=== PATIENT | female | born 1965 | race Caucasian/White ===

== ENCOUNTER 2022-03-08 12:41 | Emergency (ER) | payer OTHER, SELFPAY ==
--- NOTE | ~2022-03-08 | XR_ITS ---
EXAMINATION: XR RIBS, RIGHT CLINICAL INFORMATION: Fall. Right posterior rib pain. COMPARISON: Previous chest x-ray March 2012 TECHNIQUE: 3 views of the right ribs and one view of the chest were obtained. FINDINGS: The cardiac and mediastinal contours are normal. There is subsegmental atelectasis in the left midlung. The lungs are otherwise clear. No pleural effusion or pneumothorax. Acute right posterior lateral sixth rib fracture and adjacent pleural thickening. XR/XR ribs RT min 3V w CXR1V IMPRESSION: No evidence for acute disease in the chest. Acute posterior lateral right sixth rib fracture.
[2022-03-08 12:59] VITALS: BP 139/83; PULSE 80; RESP 16; TEMP 36.6; O2SAT 97; BMI 34.0
--- NOTE | 2022-03-08 13:00 | ED_ITS ---
HPI - Fall General Chief Complaint: Fall <BLAKE Lopez Last Filed: 03/08/22 13:03> Stated Complaint: abd pain <BLAKE Lopez Last Filed: 03/08/22 13:03> Time Seen by Provider: 03/08/22 14:39 <BLAKE Lopez Last Filed: 03/08/22 13:03> Source: patient <BLAKE Joyner Last Filed: 03/08/22 15:29> Mode of arrival: ambulatory <BLAKE Joyner Last Filed: 03/08/22 15:29> Limitations: no limitations <BLAKE Joyner Last Filed: 03/08/22 15:29> History of Present Illness HPI Narrative: Patient is a 56 year old assigned female at with a history of chronic left knee pain requiring cane assistance to ambulate presenting to the emergency department today with right rib pain. Patient states that yesterday, she fell onto her right side and her cane caught her side. Patient states that she is still having right sided pain. Patient denies hitting her head with the incident. Patient denies any loss of consciousness with the incident. Patient denies any dizziness, lightheadedness, abdominal pain, nausea, vomiting, fever, chills, blurry vision, double vision, loss of vision, chest pain, difficulty breathing, shortness of breath, back pain, night sweats, pain with urination, increased urinary frequency, increased urinary urgency, blood in her urine or stool, syncope or a near syncopal episode, bowel incontinence, bladder incontinence, bowel retention, bladder retention, or any other complaints at this time. <BLAKE Joyner Last Filed: 03/08/22 15:29> MD complaint: fall <BLAKE Joyner Last Filed: 03/08/22 15:29> Onset (ago): day(s) (1) <BLAKE Joyner Last Filed: 03/08/22 15:29> Fall from: standing <BLAKE Joyner Last Filed: 03/08/22 15:29> Place fall occurred: home <BLAKE Joyner Last Filed: 03/08/22 15:29> Loss of consciousness: none <BLAKE Joyner Last Filed: 03/08/22 15:29> Context: tripped/slipped <BLAEK Joyner Last Filed: 03/08/22 15:29> Related Data Home Medications: Previous Rx's Medication Instructions Recorded hydrocodone 5 mg-acetaminophen 325 1 tab PO Q8H PRN pain #5 tabs 03/08/22 mg tablet <BLAKE Lopez Last Filed: 03/08/22 13:03> Allergies/Adverse Reactions: Allergies Allergy/AdvReac Type Severity Reaction Status Date / Time Penicillins [PENICILLINS] Allergy Mild UNKNOWN Verified 03/08/22 13:03 aspirin [ASPIRIN] Allergy Unknown UNKNOWN Verified 03/08/22 13:03 ibuprofen [IBUPROFEN] Allergy Unknown UNKNOWN Verified 03/08/22 13:03 sumatriptan [From IMITREX] Allergy Unknown UNKNOWN Verified 03/08/22 13:03 From COMPAZINE Allergy Unknown UNKNOWN Uncoded 03/08/22 13:03 From IMITREX Allergy Unknown UNKNOWN Uncoded 03/08/22 13:03 <BLAKE Lopez Last Filed: 03/08/22 13:03> Review of Systems Constitutional: Constitutional: Reports no additional constitutional complaints, Denies chills, Denies fever(s) and Denies night sweats <BLAKE Joyner Last Filed: 03/08/22 15:29> Eyes: Eyes: Reports no additional eye complaints, Denies blurry vision, Denies change in vision, Denies diplopia, Denies eye discharge, Denies loss of vision and Denies eye pain <BLAKE Joyner Last Filed: 03/08/22 15:29> ENT: Denies dizziness <BLAKE Joyner Last Filed: 03/08/22 15:29> Cardiovascular: Cardiovascular: Reports no additional cardiovascular complaints, Denies chest pain, Denies lightheadedness, Denies Loss of Consciousness and Denies dyspnea <BLAKE Joyner Last Filed: 03/08/22 15:29> Respiratory: Respiratory: Reports no additional respiratory complaints and Denies dyspnea <BLAKE Joyner Last Filed: 03/08/22 15:29> Gastrointestinal: Gastrointestinal: Reports no additional gastrointestinal complaints, Denies abdominal pain, Denies melena, Denies hematochezia, Denies change in bowel habits and Denies change in stool character <BLAKE Joyner - Last Filed: 03/08/22 15:29> Genitourinary: Genitourinary: Denies hematuria, Denies urinary frequency, Denies dysuria, Denies urinary incontinence, Denies urinary hesitancy and Denies urinary urgency <BLAKE Joyner - Last Filed: 03/08/22 15:29> Musculoskeletal: Musculoskeletal: Reports no additional musculoskeletal complaints, Denies numbness and Denies tingling <BLAKE Joyner - Last Filed: 03/08/22 15:29> Neurologic: Denies dizziness, Denies loss of vision, Denies numbness and Denies tingling <BLAKE Joyner - Last Filed: 03/08/22 15:29> Psychiatric: Psychiatric: Reports no additional psychiatric complaints <BLAKE Joyner - Last Filed: 03/08/22 15:29> Endocrine: Endocrine: Reports no additional endocrine complaints <BLAKE Joyner - Last Filed: 03/08/22 15:29> Hematologic/Lymphatic: Hematologic/Lymphatic: Reports no additional hematologic/lymphatic complaints <BLAKE Joyner - Last Filed: 03/08/22 15:29> Allergic/Immunologic: Allergic/Immunologic: Reports no additional allergic/immunologic complaints <BLAKE Joyner - Last Filed: 03/08/22 15:29> PMFSH Past Medical History Attestation statement: The following information was validated with the patient. <BLAKE Joyner - Last Filed: 03/08/22 15:29> Source: old records reviewed and nursing notes reviewed <BLAKE Joyner - Last Filed: 03/08/22 15:29> Social History Social History: Social History Advance Directives: No Advance Directives Information Provided: No <BLAKE Lopez - Last Filed: 03/08/22 13:03> Physical Exam Vital Signs: Vital Signs: Last Vital Signs Temp 98.0 F 03/08/22 14:33 Pulse 74 03/08/22 14:33 Resp 16 03/08/22 14:33 BP 143/91 H 03/08/22 14:33 Pulse Ox 97 03/08/22 14:33 O2 Del Method 03/08/22 14:33 BMI result Body Mass Index 34.0 <BLAKE Lopez - Last Filed: 03/08/22 13:03> Vital Signs: Last Vital Signs Temp 98.0 F 03/08/22 14:33 Pulse 74 03/08/22 14:33 Resp 16 03/08/22 14:33 BP 143/91 H 03/08/22 14:33 Pulse Ox 97 03/08/22 14:33 O2 Del Method 03/08/22 14:33 BMI result Body Mass Index 34.0 <BLAKE Joyner - Last Filed: 03/08/22 15:29> Const: General: cooperative, no acute distress, alert and awake <BLAKE Joyner - Last Filed: 03/08/22 15:29> Nutritional Appearance: well nourished <BLAKE Joyner - Last Filed: 03/08/22 15:29> Orientation/consciousness: patient oriented x3 <BLAKE Joyner - Last Filed: 03/08/22 15:29> Limitations: no limitations <BLAKE Joyner - Last Filed: 03/08/22 15:29> HEENT: Head: Yes normal to inspection and Yes atraumatic <BLAKE Joyner - Last Filed: 03/08/22 15:29> Ears: hearing grossly normal bilaterally and external ears normal <BLAKE Joyner - Last Filed: 03/08/22 15:29> General nose exam: Normal external nose present, no nasal discharge noted and no epistaxis <BLAKE Joyner - Last Filed: 03/08/22 15:29> Face and sinus: Yes normal facial exam, No abrasion and No laceration <BLAKE Joyner - Last Filed: 03/08/22 15:29> Mouth: Normal oral and palatal mucosa present, no drooling and no muffled voice <BLAKE Joyner - Last Filed: 03/08/22 15:29> Eyes: General: appearance normal, both eyes and all related structures <BLAKE Joyner - Last Filed: 03/08/22 15:29> Periorbital: periorbital findings normal <Gely Schofield PA - Last Filed: 03/08/22 15:29> Eyelids: Yes eyelids normal <Gely Schofield PA - Last Filed: 03/08/22 15:29> Conjunctivae: conjunctivae normal <Gely Schofield PA - Last Filed: 03/08/22 15:29> Pupils: Equal, round and reactive pupils present <Gely Schofield PA - Last Filed: 03/08/22 15:29> EOM: EOMs intact bilaterally <Gely Schofield, PA - Last Filed: 03/08/22 15:29> Neck: Neck: Yes normal visual inspection, Yes full ROM and Yes no lymphadenopathy <Gely Schofield PA - Last Filed: 03/08/22 15:29> Chest: Chest palpation & inspection: normal inspection of the chest <Gely Schofield PA - Last Filed: 03/08/22 15:29> Resp: Effort & Inspection: normal respiratory effort and able to speak in complete sentences <Gely Schofield PA - Last Filed: 03/08/22 15:29> Auscultation: clear to auscultation bilaterally <Gely Schofield PA - Last Filed: 03/08/22 15:29> Cardio: Rate: regular rate <Gely Schofield PA - Last Filed: 03/08/22 15:29> Rhythm: regular rhythm <Gely Schofield PA - Last Filed: 03/08/22 15:29> GI: Inspection: Yes normal to inspection <Geyl Schofield [place] - Last Filed: 03/08/22 15:29> Palpation (GI): Soft to palpation, not firm, nontender, no guarding and not rigid <Gely Schofield PA - Last Filed: 03/08/22 15:29> Neuro: General: patient oriented x3 and moves all extremities <Gely Schofield PA - Last Filed: 03/08/22 15:29> Cranial nerves: Yes Equal, round and reactive pupils present <Gely Schofield PA - Last Filed: 03/08/22 15:29> Cognition (Neuro): normal cognition <Gely Schofield PA - Last Filed: 03/08/22 15:29> Motor exam (neuro): 5/5 motor strength present throughout <BLAKE Joyner - Last Filed: 03/08/22 15:29> Sensory Exam: Normal double simultaneous stimulation for sensation <BLAKE Joyner - Last Filed: 03/08/22 15:29> Coordination: [id number] test normal <BLAKE Joyner - Last Filed: 03/08/22 15:29> Extrem: General: Yes normal to inspection, Yes full ROM and Yes capillary refill normal <BLAKE Joyner - Last Filed: 03/08/22 15:29> Psych: Appearance: grossly normal <BLAKE Joyner - Last Filed: 03/08/22 15:29> Mental Status: mental status grossly normal <BLAKE Joyner - Last Filed: 03/08/22 15:29> Affect: normal affect <BLAKE Joyner - Last Filed: 03/08/22 15:29> Attitude: cooperative <BLAKE Joyner - Last Filed: 03/08/22 15:29> Thought process: Normal thought process present <BLAKE Joyner - Last Filed: 03/08/22 15:29> Thought content: Normal thought content present <BLAKE Joyner - Last Filed: 03/08/22 15:29> Insight: Good insight present (Psych) <BLAKE Joyner - Last Filed: 03/08/22 15:29> Course Course Course Narrative: 13:00 - RME - 56 yo female with history of obesity, psoriasis, left knee replacement who walks with a cane who presents with right posterior/lateral rib pain after she tripped over her puppy yesterday and fell directly onto her cane. Not on anticoagulation, did not hit her head. no flank ecchymosis, no hematuria. no SOB. right lung clear throughout. will get rib XR. <BLAKE Lopez - Last Filed: 03/08/22 13:03> Medical Decision Making Medical Decision Making MDM Narrative: Patient is a 56 year old assigned female at with a history of chronic left knee pain requiring the use of a cane for ambulation presenting to the emergency department today with right sided rib pain. Patient's physical exam was unremarkable. Patient's right rib x-ray showed posterior lateral right sixth rib fracture. I explained my physical exam findings as well as all test results to the patient and the patient's daughter. I answered all questions asked by the patient and the patient's daughter. Patient's chest was wrapped which she stated helped her symptoms significantly. I stressed the importance of the patient t aking her medication as prescribed. I stressed the importance of the patient following up with her primary care provider. I stressed the importance of the patient returning to the emergency department immediately if her symptoms were to worsen or if she were to develop any dizziness, shortness of breath, difficulty breathing, chest pain, blurry vision, loss of vision, nausea, vomiting, abdominal pain, fever, chills, back pain, or any other complaints. Patient and the patient's daughter verbalized agreement and understanding with this treatment plan and discharge. <BLAKE Joyner - Last Filed: 03/08/22 15:29> Differential Diagnosis Differential Diagnoses: The differential diagnosis associated with the presentation includes <BLAKE Joyner - Last Filed: 03/08/22 15:29> rib fracture, fall <BLAKE Joyner - Last Filed: 03/08/22 15:29> Radiology Impression Discussion of test interpretation with radiology: I have reviewed the radiologist's reading. <BLAKE Joyner - Last Filed: 03/08/22 15:29> Radiologist Impression: My interpretation is in agreement with the radiologist's impression of this imaging study. EXAMINATION: XR RIBS, RIGHT CLINICAL INFORMATION: Fall. Right posterior rib pain. COMPARISON: Previous chest x-ray March 2012 TECHNIQUE: 3 views of the right ribs and one view of the chest were obtained. FINDINGS: The cardiac and mediastinal contours are normal. There is subsegmental atelectasis in the left midlung. The lungs are otherwise clear. No pleural effusion or pneumothorax. Acute right posterior lateral sixth rib fracture and adjacent pleural thickening. XR/XR ribs RT min 3V w CXR1V IMPRESSION: No evidence for acute disease in the chest. Acute posterior lateral right sixth rib fracture. Dictated By: Pippa Eduardo MD Signed By: Electronically signed by Pippa Eduardo MD 03/08/22 [id number] <BLAKE Joyner - Last Filed: 03/08/22 15:29> Independent Historian Clinical information obtained from an independent historian. History obtained from or confirmed by: Other (daughter) <Gely SchofieldBLAKE - Last Filed: 03/08/22 15:29> Discharge Plan Discharge Clinical Impression: Fracture of rib <BLAKE Lopez - Last Filed: 03/08/22 13:03> Patient Disposition: Home, Self-Care <BLAKE Lopez - Last Filed: 03/08/22 13:03> Instructions: Rib Fracture (ED) <BLAKE Lopez - Last Filed: 03/08/22 13:03> Additional Instructions: Follow up with your primary care provider. Return to the emergency department immediately if your symptoms worsen or if you develop any dizziness, shortness of breath, difficulty breathing, chest pain, blurry vision, loss of vision, nausea, vomiting, abdominal pain, fever, chills, back pain, or any other complaints. <BLAKE Lopez - Last Filed: 03/08/22 13:03> Prescriptions: New hydrocodone-acetaminophen 5-325 mg tablet 1 tab PO Q8H PRN (Reason: pain) Qty: 5 0RF Rx Instructions: Partial Fill upon patient request. <BLAKE Lopez - Last Filed: 03/08/22 13:03> Referrals: Ilya De Leon MD [Primary Care Provider] - <BLAKE Lopez - Last Filed: 03/08/22 13:03> Interventions: ED Discharge Assessment Last Done: 03/08/22 15:22 <BLAKE Lopez - Last Filed: 03/08/22 13:03> Discharge Date/Time: 03/08/22 15:23 <BLAKE Lopez - Last Filed: 03/08/22 13:03> Print Language: [place] <BLAKE Lopez - Last Filed: 03/08/22 13:03>
[2022-03-08 14:33] VITALS: BP 143/91; PULSE 74; RESP 16; TEMP 36.7; O2SAT 97
== END 2022-03-08 15:23 | disposition home or self-care (01) ==
PROVIDERS: Emergency Provider Student in an Organized Health Care Education/Training Program; PCP Internal Medicine
DX: S22.41XA Multiple fractures of ribs, right side, initial encounter for closed fracture (principal); R07.81 Pleurodynia; W01.10XA Fall on same level from slipping, tripping and stumbling with subsequent striking against unspecified object, initial encounter; Y93.9 Activity, unspecified; Y92.9 Unspecified place or not applicable; Y99.9 Unspecified external cause status
CPT/HCPCS: 71101; 99283

== ENCOUNTER 2022-09-26 15:41 | Inpatient (IN) | payer OTHER, SELFPAY ==
[2022-09-26] VITALS (7 sets, daily range): BP systolic 105–156; BP diastolic 52–75; PULSE 77–172; RESP 14–22; TEMP 36.9–38.6; O2SAT 95–98; BMI 38.8; BMI 38.4
--- NOTE | ~2022-09-26 | CT_ITS ---
EXAMINATION: CT ABDOMEN AND PELVIS WITHOUT CONTRAST CLINICAL INFORMATION: Flank pain. Sepsis. COMPARISON: None available. TECHNIQUE: Multidetector volumetric imaging was performed from the superior aspect of the liver through the pubic symphysis. Sagittal and coronal reformatted images were obtained on the technologist's workstation. This CT examination was performed using dose optimization techniques as appropriate, variously including the following: *Automated exposure control *Adjustment of mA and/or kV according to patient size (this includes techniques or standardized protocols for targeted exams where dose is matched to indication/reason for exam; i.e. extremities or head) *Use of iterative reconstruction technique DLP: 1069 mGy-cm FINDINGS: LUNG BASES: 4 mm right lower lobe nodule axial image 5 series 5. The lung bases are otherwise clear. LIVER, GALLBLADDER, AND BILIARY TREE: The liver is normal in size, shape, and attenuation. Multiple low-attenuation liver lesions. Largest lesions are suggestive of cysts. Smaller lesions are difficult to accurately characterize. Normal gallbladder. No biliary duct dilatation. PANCREAS: Unremarkable. SPLEEN: Unremarkable. ADRENAL GLANDS: Unremarkable. KIDNEYS AND URETERS: The kidneys are normal in size, shape, and attenuation. No hydronephrosis, hydroureter, or calculi seen. No perinephric stranding. BLADDER: Unremarkable. GASTROINTESTINAL TRACT: The small and large bowel are unremarkable. The appendix is unremarkable. ABDOMINAL WALL: No significant hernia is appreciated. LYMPH NODES: Normal. VASCULAR: Unremarkable. PELVIC VISCERA: Unremarkable. OSSEOUS STRUCTURES: Degenerative changes of the lower lumbar spine CT/CT abdomen pelvis wo IV con IMPRESSION: No acute findings. The kidneys are normal appearing. Multiple liver cysts. Fleischner guidelines were followed.
--- NOTE | ~2022-09-26 | XR_ITS ---
EXAMINATION: XR CHEST CLINICAL INFORMATION: Suspect pulmonary edema. COMPARISON: Chest radiograph 03/08/2022. TECHNIQUE: Frontal view of the chest was obtained. FINDINGS: Diffuse interstitial thickening. Equivocal focal nodular-like opacities in the right lung. No significant pleural effusion or pneumothorax. Normal appearance of the cardiomediastinal silhouette. No acute osseous findings. Visualized upper abdomen is within normal limits. XR/XR chest 1V IMPRESSION: 1. Diffuse interstitial thickening is nonspecific and could be related with pulmonary edema or an atypical infectious/inflammatory process. 2. Focal opacities in the right lung likely represent summation artifacts from healing changes secondary to rib fractures involving the right fourth through sixth ribs, however underlying pulmonary nodules are difficult to entirely exclude, recommend follow-up with an outpatient chest CT in 3-6 months.
--- NOTE | 2022-09-26 16:11 | ED_ITS ---
HPI - General Adult General Chief complaint: General Medical Stated complaint: UTI?/dehydration Time Seen by Provider: 09/26/22 16:10 Source: patient and family Mode of arrival: ambulatory Limitations: no limitations History of Present Illness HPI narrative: Patient comes to the emergency room complaining of feeling very exhausted for couple of days. Patient states that she has been having intermittent nausea vo miting for 2 weeks. Also, patient complaining of couple of weeks of dysuria. Patient states that she took a home UTI test which was positive. Patient denies any cardiac history, no chest pain or shortness of breath. Related Data Previous Rx's Medication Instructions Recorded hydrocodone 5 mg-acetaminophen 325 1 tab PO Q8H PRN pain #5 tabs 03/08/22 mg tablet Allergies Allergy/AdvReac Type Severity Reaction Status Date / Time Penicillins [PENICILLINS] Allergy Mild UNKNOWN Verified 03/08/22 13:03 aspirin [ASPIRIN] Allergy Unknown UNKNOWN Verified 03/08/22 13:03 ibuprofen [IBUPROFEN] Allergy Unknown UNKNOWN Verified 03/08/22 13:03 sumatriptan [From IMITREX] Allergy Unknown UNKNOWN Verified 03/08/22 13:03 From COMPAZINE Allergy Unknown UNKNOWN Uncoded 03/08/22 13:03 From IMITREX Allergy Unknown UNKNOWN Uncoded 03/08/22 13:03 Review of Systems Review of Systems: Constitutional : No Weight loss, No Fever, No Chills, No Night Sweats, complain of fatigue and generalized malaise ENT/Mouth : No Hearing loss, No Ear Pain, No Nasal Congestion, No Sinus Pain, No Hoarseness, No sore throat, No Rhinorrhea, No Swallowing Difficulty Eyes: No Eye Pain, No Swelling, No Redness, No Foreign Body, No Discharge, No Vision Changes Cardiovascular : No Chest Pain, No SOB, No Dyspnea on Exertion, No Orthopnea, No Edema, No Palpitations Respiratory : No Cough, No Sputum, No Wheezing, No Smoke Exposure, No Dyspnea Gastrointestinal : No Nausea, No Vomiting, No Diarrhea, No Constipation, No abdominal Pain, No Hematochezia, No Melena Genitourinary : no irregular bleeding, complaining of Dysuria, complaining of Urinary Frequency, No Hematuria, No Urinary Incontinence, No Urgency, No Flank Pain, No Urinary Flow Changes, No Hesitancy Musculoskeletal : No joint pain, No Myalgias, No Joint Swelling Skin : No Skin Lesions, No rash Neuro : No Weakness, No Numbness, No Paresthesias, No Loss of Consciousness, No Dizziness, No Headache Psych : No Anxiety/Panic, No Depression, No SI/HI/AH/VH, No Social Issues, Heme/Lymph: No Bruising, No Bleeding,No Lymphadenopathy Endocrine : No Polyuria, No Polydipsia, No Temperature Intolerance PMFSH Past Medical History Medical History Hyperlipidemia Migraine Social History Social History Smoked in Last 30 Days: Yes Use of substances other than those prescribed or required for medical reasons: No Advance Directives: No Advance Directives Information Provided: No Physical Exam ED Vital Signs: Vital Signs - 24 hr 09/26/22 15:56 09/26/22 16:48 09/26/22 18:15 Temperature 98.5 F Pulse Rate 160 H 172 H 122 H Respiratory Rate 22 H 17 Blood Pressure 129/68 156/52 H Pulse Oximetry 98 98 Oxygen Delivery Method Room Air Room Air BMI result Body Mass Index 38.8 Const Other: Appearance: Alert. Oriented X3. Seems tired Eyes: Pupils equal, round and reactive to light. ENT: Pharynx normal. Neck: Normal inspection. Neck supple. No lymph nodes noted. No crepitus CVS: Heart rate irregularly irregular, heart rate between 160 and 180 Pulses normal. Normal S1 and S2 Respiratory: No respiratory distress. Breath sounds normal. No Wheezing. No rales Abdomen: Soft and nontender. No rigidity. No distention. Skin: Skin warm and dry. Normal skin color. Normal skin turgor. Extremities: No lower extremity edema. No Lacerations. No Rash Neuro: Oriented X 3. No motor deficit. No sensory deficit. Moving all extremities. No slurred speech. CN 2 through 12 grossly intact Psych: calm, cooperative, normal affect Course Course Course Narrative: -patient's heart rate is between 160 and 180, irregularly irregular. This is likely atrial fibrillation. EKG pending. Patient states that she has no history of atrial fibrillation, not on blood thinners. -all of patient's labs pending Medications Administered Discontinued Medications Generic Name Dose Route Start Last Admin Trade Name Freq PRN Reason Stop Dose Admin Diltiazem HCl 20 mg 09/26/22 16:30 09/26/22 16:41 Diltiazem Hcl 50 Mg/10 Ml Vial IVPUSH 09/26/22 16:31 20 mg STAT STA Administration Sodium Chloride 1,000 mls @ 999 mls/hr 09/26/22 16:26 09/26/22 16:42 Ns IVCONT 09/26/22 17:26 999 mls/hr .Q1H1M ONE Administration Medical Decision Making Medical Decision Making [facility] Narrative: -my interpretation EKG: Atrial fibrillation with RVR, heart rate of 155, QTC 462, new onset. -admission has been considered -patient receiving 20 mg of IV Cardizem. -CHADS2 Vasc 2 score =1, at this time, we will not start blood thinners -patient's high rate did improve from 160-180 to approximately 110-120 beats per minute. -patient has been started on a Cardizem drip -18:20: Patient's urinalysis is positive. Patient given ceftriaxone IV, IV fluids based on ideal weight of 50 kg. Sepsis not suspected -I discussed the patient with Dr. Johnson, patient being admitted Differential Diagnosis Differential Diagnoses: The differential diagnosis associated with the presentation includes (SVT, atrial fibrillation, sinus tachycardia, UTI) Admission/Observation Consideration of admission/observation: Escalation of care including admission/observation considered Consult Healthcare Provider Management of the patient was discussed with: Hospitalist Lab Data [facility] Lab Attestation statement: I reviewed the patient's lab results. 09/26/22 16:44 09/26/22 16:53 Labs: Lab Results 09/26/22 09/26/22 09/26/22 Range/Units 16:44 16:44 16:44 WBC 13.4 H (4.8-10.8) X10*3/uL RBC 5.95 H (4.20-5.50) X10*6/uL Hgb 17.8 H (12.0-16.0) g/dl Hct 53.0 H (37.0-47.0) % MCV 89.1 (80.0-98.0) fL MCH 29.9 (27.0-33.0) pg MCHC 33.6 (31.0-35.0) g/dl RDW 12.8 (11.0-16.0) % Plt Count 335 (160-400) X10*3/uL MPV 9.9 (9.4-12.3) fL Immature Gran % (Auto) 0.3 (0.0-0.4) % Neut % (Auto) 77.9 H (45-73) % Lymph % (Auto) 13.7 L (20-40) % [place] % (Auto) 7.2 (2-11) % Eos % (Auto) 0.4 (0-4) % Baso % (Auto) 0.5 (0-2) % Lymph # (Auto) 1.8 (1.2-4.9) X10*3/uL [place] # (Auto) 1.0 (0.1-1.2) X10*3/uL Eos # (Auto) 0.1 (0.0-0.4) X10*3/uL Baso # (Auto) 0.1 (0.0-0.2) X10*3/uL Abs Immat Gran (auto) 0.04 H (0.00-0.03) X10*3/uL Absolute Neuts (auto) 10.5 H (2.0-8.3) x10*3/uL Absolute Nucleated RBC 0.000 (0.0-0.012) X10*3/uL Nucleated RBC % (auto) 0.0 (0.0-0.2) /100WBC PT (10.0-13.1) SEC INR (0.9-1.1) Sodium (135-145) mmol/L Potassium (3.3-5.1) mmol/L Chloride (96-108) mmol/L Carbon Dioxide (22-29) mmol/L Anion Gap (12-20) BUN (9-16) mg/dL Creatinine (0.5-1.4) mg/dL Estim Creat Clear Calc Estimated GFR Random Glucose (60-115) mg/dL Lactic Acid 1.6 (0.5-2.0) mmol/L Calcium (8.4-10.2) mg/dL Magnesium (1.6-2.6) mg/dL Total Bilirubin (0.0-1.0) mg/dL Direct Bilirubin (0.0-0.5) mg/dL AST (5-31) U/L ALT (0-31) U/L Alkaline Phosphatase (39-117) U/L Troponin I High Sens < 2.7 (<3.5-17.0) ng/L B-Natriuretic Peptide (<100) pg/mL Total Protein (6.5-8.0) g/dL Albumin (3.5-5.0) g/dL Lipase (8-78) U/L TSH (0.32-4.0) uIU/mL Urine Color Urine Appearance Urine pH (5.0-9.0) Ur Specific [place] (1.005-1.025) Urine Protein (Neg-Trace) mg/dL Urine Glucose (UA) (Negative) mg/dL Urine Ketones (Negative) mg/dL Urine Blood (Negative) Urine Nitrite (Negative) Ur Leukocyte Esterase (Negative) Urine RBC (0-2) /HPF Urine WBC (0-5) /HPF Ur Squamous Epith Cells (0-2) /HPF Urine Bacteria (None Seen) Hyaline Casts (0-2) /LPF 09/26/22 09/26/22 09/26/22 Range/Units 16:44 16:53 16:53 WBC (4.8-10.8) X10*3/uL RBC (4.20-5.50) X10*6/uL Hgb (12.0-16.0) g/dl Hct (37.0-47.0) % MCV (80.0-98.0) fL MCH (27.0-33.0) pg MCHC (31.0-35.0) g/dl RDW (11.0-16.0) % Plt Count (160-400) X10*3/uL MPV (9.4-12.3) fL Immature Gran % (Auto) (0.0-0.4) % Neut % (Auto) (45-73) % Lymph % (Auto) (20-40) % [place] % (Auto) (2-11) % Eos % (Auto) (0-4) % Baso % (Auto) (0-2) % Lymph # (Auto) (1.2-4.9) X10*3/uL [place] # (Auto) (0.1-1.2) X10*3/uL Eos # (Auto) (0.0-0.4) X10*3/uL Baso # (Auto) (0.0-0.2) X10*3/uL Abs Immat Gran (auto) (0.00-0.03) X10*3/uL Absolute Neuts (auto) (2.0-8.3) x10*3/uL Absolute Nucleated RBC (0.0-0.012) X10*3/uL Nucleated RBC % (auto) (0.0-0.2) /100WBC PT 13.2 H (10.0-13.1) SEC INR 1.1 (0.9-1.1) Sodium 144 (135-145) mmol/L Potassium 3.4 (3.3-5.1) mmol/L Chloride 106 (96-108) mmol/L Carbon Dioxide 26 (22-29) mmol/L Anion Gap 15 (12-20) BUN 5 L (9-16) mg/dL Creatinine 0.72 (0.5-1.4) mg/dL Estim Creat Clear Calc 94.4 Estimated GFR > 60 Random Glucose 87 (60-115) mg/dL Lactic Acid (0.5-2.0) mmol/L Calcium 10.4 H (8.4-10.2) mg/dL Magnesium 1.8 (1.6-2.6) mg/dL Total Bilirubin 0.9 (0.0-1.0) mg/dL Direct Bilirubin 0.3 (0.0-0.5) mg/dL AST 10 (5-31) U/L ALT 11 (0-31) U/L Alkaline Phosphatase 101 (39-117) U/L Troponin I High Sens (<3.5-17.0) ng/L B-Natriuretic Peptide (<100) pg/mL Total Protein 7.3 (6.5-8.0) g/dL Albumin 4.1 (3.5-5.0) g/dL Lipase 6 L (8-78) U/L TSH 1.47 (0.32-4.0) uIU/mL Urine Color Urine Appearance Urine pH (5.0-9.0) Ur Specific [place] (1.005-1.025) Urine Protein (Neg-Trace) mg/dL Urine Glucose (UA) (Negative) mg/dL Urine Ketones (Negative) mg/dL Urine Blood (Negative) Urine Nitrite (Negative) Ur Leukocyte Esterase (Negative) Urine RBC (0-2) /HPF Urine WBC (0-5) /HPF Ur Squamous Epith Cells (0-2) /HPF Urine Bacteria (None Seen) Hyaline Casts (0-2) /LPF 09/26/22 09/26/22 Range/Units 16:53 17:01 WBC (4.8-10.8) X10*3/uL RBC (4.20-5.50) X10*6/uL Hgb (12.0-16.0) g/dl Hct (37.0-47.0) % MCV (80.0-98.0) fL MCH (27.0-33.0) pg MCHC (31.0-35.0) g/dl RDW (11.0-16.0) % Plt Count (160-400) X10*3/uL MPV (9.4-12.3) fL Immature Gran % (Auto) (0.0-0.4) % Neut % (Auto) (45-73) % Lymph % (Auto) (20-40) % [place] % (Auto) (2-11) % Eos % (Auto) (0-4) % Baso % (Auto) (0-2) % Lymph # (Auto) (1.2-4.9) X10*3/uL [place] # (Auto) (0.1-1.2) X10*3/uL Eos # (Auto) (0.0-0.4) X10*3/uL Baso # (Auto) (0.0-0.2) X10*3/uL Abs Immat Gran (auto) (0.00-0.03) X10*3/uL Absolute Neuts (auto) (2.0-8.3) x10*3/uL Absolute Nucleated RBC (0.0-0.012) X10*3/uL Nucleated RBC % (auto) (0.0-0.2) /100WBC PT (10.0-13.1) SEC INR (0.9-1.1) Sodium (135-145) mmol/L Potassium (3.3-5.1) mmol/L Chloride (96-108) mmol/L Carbon Dioxide (22-29) mmol/L Anion Gap (12-20) BUN (9-16) mg/dL Creatinine (0.5-1.4) mg/dL Estim Creat Clear Calc Estimated GFR Random Glucose (60-115) mg/dL Lactic Acid (0.5-2.0) mmol/L Calcium (8.4-10.2) mg/dL Magnesium (1.6-2.6) mg/dL Total Bilirubin (0.0-1.0) mg/dL Direct Bilirubin (0.0-0.5) mg/dL AST (5-31) U/L ALT (0-31) U/L Alkaline Phosphatase (39-117) U/L Troponin I High Sens (<3.5-17.0) ng/L B-Natriuretic Peptide 172 H (<100) pg/mL Total Protein (6.5-8.0) g/dL Albumin (3.5-5.0) g/dL Lipase (8-78) U/L TSH (0.32-4.0) uIU/mL Urine Color Dark Yellow Urine Appearance Cloudy Urine pH 8.5 (5.0-9.0) Ur Specific [place] 1.010 (1.005-1.025) Urine Protein 100 (2+) H (Neg-Trace) mg/dL Urine Glucose (UA) Negative (Negative) mg/dL Urine Ketones 15 (Negative) mg/dL Urine Blood Moderate (2+) H (Negative) Urine Nitrite Negative (Negative) Ur Leukocyte Esterase Large (3+) H (Negative) Urine RBC >20 H (0-2) /HPF Urine WBC >50 H (0-5) /HPF Ur Squamous Epith Cells 0-2 (0-2) /HPF Urine Bacteria 1+ (None Seen) Hyaline Casts 0-2 (0-2) /LPF Independent Interpretation I performed an independent interpretation of an: EKG and Plain X-Ray (My interpretation of chest x-ray: Nodules on the right upper ribs versus callused/old healed fractures) Radiology Impression Discussion of test interpretation with radiology: I have reviewed the radiologist's reading. Radiologist Impression: FINDINGS: Diffuse interstitial thickening. Equivocal focal nodular-like opacities in the right lung. No significant pleural effusion or pneumothorax. Normal appearance of the cardiomediastinal silhouette. No acute osseous findings. Visualized upper abdomen is within normal limits. XR/XR chest 1V IMPRESSION: 1.? Diffuse interstitial thickening is nonspecific and could be related with pulmonary edema or an atypical infectious/inflammatory process. 2.? Focal opacities in the right lung likely represent summation artifacts from healing changes secondary to rib fractures involving the right fourth through sixth ribs, however underlying pulmonary nodules are difficult to entirely exclude, recommend follow-up with an outpatient chest CT in 3-6 months. Independent Historian Clinical information obtained from an independent historian. History obtained from or confirmed by: Spouse Critical Care Time Critical Care Time Critical Care Time: Yes Total Critical Care Time: 70 Attestation: I have personally provided critical care time. Time includes review of lab data, radiology results, discussion with consultants, and monitoring for potential decompensation. Intervention performed as documented. Discharge Plan Discharge Clinical Impression: Atrial fibrillation with rapid ventricular response, Urinary tract infection Patient Disposition: Admitted As Inpatient Prescriptions: No Action hydrocodone-acetaminophen 5-325 mg tablet 1 tab PO Q8H PRN (Reason: pain) Qty: 5 0RF Rx Instructions: Partial Fill upon patient request.
--- NOTE | 2022-09-26 16:22 | ECG_ITS ---
Test Reason : ARRITHMIA Blood Pressure : / mmHG Vent. Rate : 155 BPM Atrial Rate : 000 BPM P-R Int : 000 ms QRS Dur : 072 ms QT Int : 288 ms P-R-T Axes : 000 -02 159 degrees QTc Int : 462 ms Atrial fibrillation with rapid ventricular response Minimal voltage criteria for LVH, may be normal variant ( R in aVL ) ST & T wave abnormality, consider lateral ischemia Abnormal ECG When compared with ECG of 22-MAR-2012 14:45, Atrial fibrillation has replaced Sinus rhythm Vent. rate has increased BY 71 BPM T wave inversion now evident in Lateral leads Referred By: Bianca Vazquez Electronically Signed By:Zaire Alexander
[2022-09-26] MEDS: dilTIAZem HCL 50 MG/10 ML VIAL 20 MG IVPUSH (16:41)
[2022-09-26] MEDS: 0.9 % Sodium Chloride 1,000 ML 999 ML IVCONT ×2 (16:42→18:49)
[2022-09-26 16:48] LABS: MANUAL DIFF FLAG NO
--- NOTE | 2022-09-26 16:52 | PC.NURSE ---
Pt came in with A-fib with RVR, HR 172, Cardizem given with positive effect HR 113
[2022-09-26 17:03] LABS: Basophils Absolute Auto 0.1 X10*3/uL (0.0-0.2); Basophils Percent Auto 0.5 % (0-2); Eosinophils Absolute Auto 0.1 X10*3/uL (0.0-0.4); Eosinophils Percent Auto 0.4 % (0-4); Hemoglobin 17.8 g/dl (12.0-16.0); Imm Gran Abs Auto 0.04 X10*3/uL (0.00-0.03); Imm Gran Pct Auto 0.3 % (0.0-0.4); Lymphocytes Absolute Auto 1.8 X10*3/uL (1.2-4.9); Lymphocytes Percent Auto 13.7 % (20-40); Mean Corpuscular HGB Conc 33.6 g/dl (31.0-35.0); Mean Corpuscular Hemoglobin 29.9 pg (27.0-33.0); Mean Corpuscular Volume 89.1 fL (80.0-98.0); Mean Platelet Volume 9.9 fL (9.4-12.3); Monocytes Percent Auto 7.2 % (2-11); Neutrophils Absolute Auto 10.5 x10*3/uL (2.0-8.3); Neutrophils Percent Auto 77.9 % (45-73); Platelet Count 335 X10*3/uL (160-400); Red Blood Count 5.95 X10*6/uL (4.20-5.50); Red Cell Distribution Width 12.8 % (11.0-16.0); White Blood Count 13.4 X10*3/uL (4.8-10.8)
[2022-09-26 17:05] LABS: Lactic Acid 1.6 mmol/L (0.5-2.0)
[2022-09-26 17:15] LABS: Appearance Urine Cloudy; Color Urine Dark Yellow; Glucose Urine UA Negative (Negative); Leukocyte Esterase Urine Large (3+) (Negative); Nitrite Urine Negative (Negative); PH 8.5 (5.0-9.0); UMIC TRIGGER UACC YES; Urine Blood Moderate (2+) (Negative); Urine Ketones 15 mg/dL (Negative); Urine Protein 100 (2+) mg/dL (Neg-Trace)
[2022-09-26 17:18] LABS: Troponin-I High Sensitivity < 2.7 ng/L (<3.5-17.0)
[2022-09-26 17:20] LABS: Bacteria Urine 1+ (None Seen); Hyaline Casts Urine 0-2 /LPF (0-2); RBC Urine >20 /HPF (0-2); Squamous Epithelial Cell Urine 0-2 /HPF (0-2); UACC Culture Trigger YES; WBC Urine >50 /HPF (0-5)
[2022-09-26 17:20] LABS: INTERNATIONAL NORM RATIO 1.1 (0.9-1.1); Prothrombin Time 13.2 SEC (10.0-13.1)
[2022-09-26 17:27] LABS: TSH reflex Free T4 1.47 uIU/mL (0.32-4.0)
[2022-09-26 17:31] LABS: Alanine Aminotransferase 11 U/L (0-31); Albumin Level 4.1 g/dL (3.5-5.0); Alkaline Phosphatase 101 U/L (39-117); Anion Gap 15 (12-20); Aspartate Amino Transferase 10 U/L (5-31); Bilirubin Direct 0.3 mg/dL (0.0-0.5); Bilirubin Total 0.9 mg/dL (0.0-1.0); Blood Urea Nitrogen 5 mg/dL (9-16); Calcium 10.4 mg/dL (8.4-10.2); Carbon Dioxide 26 mmol/L (22-29); Chloride 106 mmol/L (96-108); Creatinine Clr Calc Pharmacy 94.4; Estimated Glomerular Filt Rate > 60; Glucose Random 87 mg/dL (60-115); Lipase 6 U/L (8-78); Magnesium 1.8 mg/dL (1.6-2.6); Potassium 3.4 mmol/L (3.3-5.1); Sodium 144 mmol/L (135-145); Total Protein 7.3 g/dL (6.5-8.0)
[2022-09-26 17:44] LABS: B Type Natriuretic Peptide 172 pg/mL (<100)
[2022-09-26] MEDS: Acetaminophen 325 MG TABLET 650 MG PO (18:35)
[2022-09-26] MEDS: dilTIAZem HCL 125 MG in 0.9 % Sodium Chloride 100 ML 10 MG IVCONT (18:45)
[2022-09-26] MEDS: cefTRIAXone sodium 1 GM in 0.9 % Sodium Chloride 50 ML IV (18:53)
--- NOTE | 2022-09-26 19:03 | PC.NURSE ---
Pt started on Cardizam drip, HR 176. After 15 min HR remains elevated at 168. Cardizam titrated per protocol, HR decreased to 139 at 1904
--- NOTE | 2022-09-26 19:29 | P.HPHOSP_ITS ---
History of Present Illness Date of Service: 09/26/22 Attending physician on admission: Alton Breaux Chief Complaint: dysuria, back pain, weakness 57-year-old female with history of hyperlipidemia, migraines, and psoriasis who is a current 0.5 PPD smoker presents to the ED earlier today with her for evaluation of fatigue and weakness ongoing for several days. She states solo t she has also been experiencing dysuria, increased urinary frequency, and urgency for the last 2 weeks though did experience a brief reprieve of symptoms with pyridium. In the last few days she has also been experiencing nausea and vomiting and significant bilateral low back pain. She has been experiencing palpitations and intermittent shortness of breath with increased anxiety but denies any orthopnea, PND, bilateral lower extremity edema, lightheadedness, or chest pain. Denies history of similar symptoms. She is a current 0.5 pack cigarette per day smoker but denies any illicit drug use or alcohol use. On arrival, patient found to be tachycardic to 172 without any hypotension. At that time, she was mildly tachypneic to 22 and afebrile. However patient did develop fever of 101.4 while in the ED. EKG showed atrial fibrillation with RVR, rate 155 with T-wave inversions noted in I and II, but no LISA or depression. There is a leukocytosis of 13.4. Renal function normal, electrolyte levels normal. Lactic acid 1.6. Hepatic function normal. Troponin below detectable limits. BNP 172. TSH 1.47. UA with 3+ leukocytes, negative nitrites, 2+ blood, 2+ protein, positive urinary sediment, and 1+ bacteria. Chest x-ray showing diffuse interstitial thickening possibly related to pulmonary edema or atypical infectious versus inflammatory process. There is also evidence of heal ing changes secondary to rib fractures on the right side her cannot exclude pulmonary nodule and outpatient CT recommended in 3-6 months. In the ED, given 20 mg IV push diltiazem with minimal improvement in heart rate and patient was started on Cardizem drip. She was also given 2 L IV NS bolus, 1 g IV ceftriaxone, and Tylenol with improvement of fever. Review of Systems Review of Systems: General: No fevers, malaise, unintentional weight loss. +generalized weakness, +fatigue HEENT: No blurred vision, diplopia. No sore throat, nasal congestion, rhinorrhea, sinus pain, ear pain Cardiovascular: +palpitations. No chest pain or leg edema Respiratory: +sob. No orthopnea, PND, wheezing, cough GI: No abdominal pain, nausea, vomiting, diarrhea, constipation, melena, hematochezia : +dysuria, +increased frequency, +urgency. No hematuria, decreased urinary output MSK: No myalgia. +b/l low back pain Neuro: No headaches, weakness, paresthesias Skin: +diffuse rash PMFSH Medical History Hyperlipidemia Migraine Social History Smoked in Last 30 Days: Yes Use of substances other than those prescribed or required for medical reasons: No Advance Directives: No Advance Directives Information Provided: No Meds Allergies Allergy/AdvReac Type Severity Reaction Status Date / Time Penicillins [PENICILLINS] Allergy Mild UNKNOWN Verified 03/08/22 13:03 aspirin [ASPIRIN] Allergy Unknown UNKNOWN Verified 03/08/22 13:03 ibuprofen [IBUPROFEN] Allergy Unknown UNKNOWN Verified 03/08/22 13:03 sumatriptan [From IMITREX] Allergy Unknown UNKNOWN Verified 03/08/22 13:03 From COMPAZINE Allergy Unknown UNKNOWN Uncoded 03/08/22 13:03 From IMITREX Allergy Unknown UNKNOWN Uncoded 03/08/22 13:03 Active Medications: Current Medications Diltiazem HCl 125 mg/ Sodium (Chloride) 125 mls @ 0 mls/hr IVCONT .Q0M BERONICA; Protocol Last Titration: 09/26/22 19:02 Dose: 15 mg/hr, 15 mls/hr Pharmacy Consult (Consult Rx Perform Med Rec) 1 each MISCELLANE ONCE PRN PRN Reason: Consult order Physical Exam Vital Signs and Narrative: Vital Signs: Last Vital Signs Temp 101.4 F H 09/26/22 18:22 Pulse 122 H 09/26/22 18:15 Resp 17 09/26/22 18:15 BP 156/52 H 09/26/22 18:15 Pulse Ox 98 09/26/22 18:15 O2 Del Method Room Air 09/26/22 18:15 BMI result Body Mass Index 38.8 Constitutional - Awake and Alert, No apparent distress Eyes - PERRLA, EOMI Cardiovascular - S1S2, RRR, No edema Respiratory - Normal lung expansion, Normal respiratory effort, No respiratory distress, CTA bilaterally Gastrointestinal - NT / ND; +BS; No rebound or guarding - +right sided CVA tenderness Extremities - no calf tenderness bilaterally, no swelling Skin - Warm/Dry. Diffuse scaling papular lesions on trunk and BUE and BLE Neurological - Alert & oriented x3 Psychological - Appropriate affect Results Labs 09/26/22 16:44 09/26/22 16:53 Labs: Laboratory Results - last 24 hr 09/26/22 09/26/22 09/26/22 16:44 16:44 16:44 MCV 89.1 MCH 29.9 MCHC 33.6 RDW 12.8 Plt Count 335 MPV 9.9 Immature Gran % (Auto) 0.3 Neut % (Auto) 77.9 H Lymph % (Auto) 13.7 L Carbon % (Auto) 7.2 Eos % (Auto) 0.4 Baso % (Auto) 0.5 Lymph # (Auto) 1.8 Carbon # (Auto) 1.0 Eos # (Auto) 0.1 Baso # (Auto) 0.1 Abs Immat Gran (auto) 0.04 H Absolute Neuts (auto) 10.5 H Absolute Nucleated RBC 0.000 Nucleated RBC % (auto) 0.0 PT INR Anion Gap Estim Creat Clear Calc Estimated GFR Random Glucose Lactic Acid 1.6 Calcium Magnesium Total Bilirubin Direct Bilirubin AST ALT Alkaline Phosphatase Troponin I High Sens < 2.7 B-Natriuretic Peptide Total Protein Albumin Lipase TSH Urine Color Urine Appearance Urine pH Ur Specific [place] Urine Protein Urine Glucose (UA) Urine Ketones Urine Blood Urine Nitrite Ur Leukocyte Esterase Urine RBC Urine WBC Ur Squamous Epith Cells Urine Bacteria Hyaline Casts 09/26/22 09/26/22 09/26/22 16:44 16:53 16:53 MCV MCH MCHC RDW Plt Count MPV Immature Gran % (Auto) Neut % (Auto) Lymph % (Auto) Carbon % (Auto) Eos % (Auto) Baso % (Auto) Lymph # (Auto) Carbon # (Auto) Eos # (Auto) Baso # (Auto) Abs Immat Gran (auto) Absolute Neuts (auto) Absolute Nucleated RBC Nucleated RBC % (auto) PT 13.2 H INR 1.1 Anion Gap 15 Estim Creat Clear Calc 94.4 Estimated GFR > 60 Random Glucose 87 Lactic Acid Calcium 10.4 H Magnesium 1.8 Total Bilirubin 0.9 Direct Bilirubin 0.3 AST 10 ALT 11 Alkaline Phosphatase 101 Troponin I High Sens B-Natriuretic Peptide Total Protein 7.3 Albumin 4.1 Lipase 6 L TSH 1.47 Urine Color Urine Appearance Urine pH Ur Specific [place] Urine Protein Urine Glucose (UA) Urine Ketones Urine Blood Urine Nitrite Ur Leukocyte Esterase Urine RBC Urine WBC Ur Squamous Epith Cells Urine Bacteria Hyaline Casts 09/26/22 09/26/22 16:53 17:01 MCV MCH MCHC RDW Plt Count MPV Immature Gran % (Auto) Neut % (Auto) Lymph % (Auto) Carbon % (Auto) Eos % (Auto) Baso % (Auto) Lymph # (Auto) Carbon # (Auto) Eos # (Auto) Baso # (Auto) Abs Immat Gran (auto) Absolute Neuts (auto) Absolute Nucleated RBC Nucleated RBC % (auto) PT INR Anion Gap Estim Creat Clear Calc Estimated GFR Random Glucose Lactic Acid Calcium Magnesium Total Bilirubin Direct Bilirubin AST ALT Alkaline Phosphatase Troponin I High Sens B-Natriuretic Peptide 172 H Total Protein Albumin Lipase TSH Urine Color Dark Yellow Urine Appearance Cloudy Urine pH 8.5 Ur Specific [place] 1.010 Urine Protein 100 (2+) H Urine Glucose (UA) Negative Urine Ketones 15 Urine Blood Moderate (2+) H Urine Nitrite Negative Ur Leukocyte Esterase Large (3+) H Urine RBC >20 H Urine WBC >50 H Ur Squamous Epith Cells 0-2 Urine Bacteria 1+ Hyaline Casts 0-2 Imaging Radiologist's Impressions: Impressions Chest X-Ray 09/26/22 17:15 IMPRESSION: 1. Diffuse interstitial thickening is nonspecific and could be related with pulmonary edema or an atypical infectious/inflammatory process. 2. Focal opacities in the right lung likely represent summation artifacts from healing changes secondary to rib fractures involving the right fourth through sixth ribs, however underlying pulmonary nodules are difficult to entirely exclude, recommend follow-up with an outpatient chest CT in 3-6 months. Assessment and Plan (1) Atrial fibrillation with rapid ventricular response: Status: Acute (2) Acute pyelonephritis: Status: Acute Plan 57-year-old female with history of hyperlipidemia, migraines, and psoriasis who is a current 0.5 PPD smoker admitted for further management of acute pyelonephritis and new onset atrial fibrillation with RVR. #Acute clinical pyelonephritis with sepsis -UA with 3+ leukocytes, negative nitrites, 2+ blood, positive urinary sediment, 1+ bacteria with significant right-sided CVA tenderness -leukocytosis 13.4, tachycardic, febrile, tachypneic. Lactic acid normal, no end-organ damage. No hypotension. No severe sepsis/shock -given 2 L IVF in the ED -IV ceftriaxone (initiated 09/26) -ondansetron p.r.n. -pain management using pain scale -follow CBC, urine cultures, blood cultures # new onset atrial fibrillation with RVR -continue Cardizem drip per protocol -initiate low-dose metoprolol 12.5 mg b.i.d. -[id number] score 1. Anticoagulant/anti-platelet not indicated -echocardiogram -cardiology consult -cardiac diet -monitor on telemetry #Elevated BNP -2/2 AFib with RVR -clinically euvolemic #Abnormal CXR -possible pulmonary nodules on CXR -Chest CT recommended in 3-6 months outpt # hyperlipidemia -continue statin # psoriasis -continue steroid creams from home #Nicotine dependence -Counseled on cessation -Nicorette gum for NRT DVT prophylaxis-Lovenox Full code Patient requires inpatient stay at least 2 midnights for management of acute pyelonephritis with sepsis requiring IV antibiotics and close monitoring for decompensation as well as for further management of new onset atrial fibrillation with RVR on Cardizem drip per protocol Time Spent With Patient Time: Total time managing care of this patient today ____ minutes. Quality Stroke Does the patient have a stroke diagnosis?: No VTE Prior VTE?: No VTE Risk Level:: Medical - moderate - high VTE Device Contraindication: Treatment Not Indicated VTE Drug Contraindication: N/A - Med Ordered
[2022-09-26] MEDS: Morphine Sulfate 4 MG/ML CARTRIDGE IVPUSH (19:37)
--- NOTE | 2022-09-26 20:13 | PHA.MEDREC ---
Pharmacy Consult ? Medication Reconciliation Pharmacy has completed the medication reconciliation. Spoke to patient to confirm meds. Patient is unsure when prednisone is supposed to stop, but knows it's been 15mg daily and that it was supposed to be for a couple of days.
--- NOTE | 2022-09-26 21:17 | PC.NURSE ---
this rn assumed care of pt @ 1900. previous nurse medicated pt with po tylenol 650mg crushed in pudding. pt did not eat because did not like the taste. this rn made laura rondon carlos know that temp remains at 101.4 orally. orders placed for 975mg po.
[2022-09-26] MEDS: Enoxaparin Sodium 40 MG/0.4 ML SYRINGE SUBCUT (21:25)
[2022-09-26] MEDS: Metoprolol Tartrate 12.5 MG HALFTAB PO (21:25)
--- NOTE | 2022-09-26 22:19 | PC.NURSE ---
this rn made dr morton aware of HR 80-98 bp 105/69. per dr morton lower dose rate of diltiazem gtt to 7.5 mg/hr.
[2022-09-26] MEDS: clonazePAM 0.5 MG TABLET PO (22:36)
[2022-09-26] MEDS: Acetaminophen 1,000 MG/100 ML PIGGYBACK 400 MG IV (22:36)
--- NOTE | 2022-09-26 22:41 | PC.NURSE ---
this rn made dr morton aware of HR 77 on diltiazem 7.5mg/hr. per dr morton stop diltiazem gtt at this time. per md restart at rate of 5mg.hr is HR sustains over 120 bpm
[2022-09-27] VITALS (7 sets, daily range): BP systolic 96–125; BP diastolic 55–71; PULSE 70–91; RESP 17–20; TEMP 35.8–37.4; O2SAT 92–98
--- NOTE | 2022-09-27 02:00 | PC.NURSE ---
Assumed care for patient at approx 2300 when she arrived from ED. Ambulating with cane and stand by assist into room. Steady on feet with cane. A&Ox4, pleasant and cooperative with care. Denies pain or discomfort. No SOB/Dyspnea noted. NSR on cafeteria monitor. Afebrile on admission. Oriented to room. Call london within reach, bed in lowest locked position.
[2022-09-27] MEDS: Acetaminophen 325 MG TABLET 650 MG PO ×3 (06:06→20:02)
[2022-09-27] MEDS: oxyCODONE HCl Immed Release 5 MG TABLET PO ×3 (06:07→17:46)
--- NOTE | 2022-09-27 07:00 | CA_ITS ---
Transthoracic Echocardiogram Patient (Last, First, Middle): Vania Bolton, Gender: Female Date of : 1965 Age: 57 Procedure Date: 09/27/2022 Procedure Type: Transthoracic Echocardiogram Location[place] [facility] [place] Height: 157.48 cm Weight: 94.8 kg BSA: 1.95 m2 Heart Rate: 77 bpm BP: 96 / 58 mmHg Principal Clerk Typist: BRYSON Referring MD: Cassi LOZANO Symptoms: new onset afib Study Quality: Fair ECG Rhythm: Sinus Conclusions: - Normal left ventricular size and systolic function. There is mildly increased left ventricular wall thickness. The visually estimated ejection fraction is between 65-70%. - Normal right ventricular cavity size and systolic function. - There is mild dilatation of the sinuses of Valsalva measuring 3.50 cm and mild dilatation of the ascending aorta measuring 3.90 cm. Findings Left Ventricle Normal left ventricular size and systolic function. There is mildly increased left ventricular wall thickness. The visually estimated ejection fraction is between 65-70%. There is no evidence of regional wall motion abnormalities. Diastolic function is normal for age. Right Ventricle Normal right ventricular cavity size and systolic function. Atria Both atria are normal in size. Aortic Valve Normal aortic valve structure and function. There is no aortic valve stenosis. There is mild aortic valve regurgitation. Mitral Valve The mitral valve appears normal. There is no mitral valve regurgitation. There is no mitral valve stenosis. Pulmonic Valve Normal pulmonic valve structure and function. There is no pulmonic valve regurgitation. Tricuspid Valve Normal tricuspid valve structure and function. There is trace tricuspid valve regurgitation. Normal right atrial pressure. There is no evidence of pulmonary hypertension. Great Vessels There is mild dilatation of the sinuses of Valsalva measuring 3.50 cm and mild dilatation of the ascending aorta measuring 3.90 cm. The visualized portions of the pulmonary artery and branches are normal. Venous The inferior vena cava is normal in size and collapses greater than 50% with inspiration. Pericardium/Pleural There is no evidence of pericardial effusion. Prior Study Comparison No prior study available for comparison. Measurements 2D Linear Measurements IVSd: 1.08 0.6-0.9/0.6-1.0 cm LVIDd: 3.98 3.9-5.3/4.2-5.9 cm LVIDd Index: 2.04 2.4-3.2/2.2-3.1 cm/m2 LVIDs: 2.85 2.0-3.6 cm LVPWd: 1.23 0.7-1.1 cm LA Diam: 2.50 2.7-3.8/3.0-4.0 cm LAIDs Index: 1.28 1.5-2.3 cm/m2 LV Mass: 193.25 67-162/88-224 g LV Mass Index: 99.10 43-95/49-115 g/m2 LVOT Diam: 2.00 3.0+(-)1.3 cm 2D Systolic Function EF 4C: 65.20 >55% EF 2C: 66.80 >55% EF BiP: 67.00 >55% Mitral Valve MV Pk E: 0.91 MV PK A: 0.95 MV Decel Time: 218.00 E/A: 1.00 E'Lateral: 7.29 E'Medial: 7.72 E/E' Med: 11.80 E/E' Lat: 12.50 PHT: 64.00 MVA PHT: 3.44 Decel [place]: 4.18 Aortic Valve AoV Pk Demetrio: 1.40 AoV Mn Demetrio: 1.00 AoV VTI: 0.27 AoV Pk Grad: 8.00 Aov Mn Grad: 4.00 INES Cont.VTI: 2.59 LVOT LVOT Pk Demetrio: 1.15 LVOT Mn Demetrio: 0.78 LVOT VTI: 0.22 LVOT Pk Grad: 5.00 LVOT Mn Grad: 3.00 LVOT Diam: 2.00 LVOT Area: 3.14 Diastolic Function MV Pk E: 0.91 MV Pk A: 0.95 E/A: 1.00 E'Medial: 7.72 E/E' Med: 11.80 E' Laterial: 7.29 E/E' Lat: 12.50 Right Ventricle TAPSE (mm): 21.70 TVS' Demetrio: 14.70 Tricuspid Valve TR Pk Demetrio: 1.69 TR Pk Grad: 11.00 RA Press: 8.00 RVSP: 19.00 Great Vessels Aorta Sinus of Valsalva: 3.50 2.0-3.5 cm Ao Asc: 3.90 2.1-3.4 cm Pulmonary Valve PV Pk Demetrio: 0.81 Peak PV Grad: 3.00 Updated in Other Vendor System with Status of Final Zaire Alexander MD electronically signed on 09/27/2022 8:08:06 PM with status of Final
--- NOTE | 2022-09-27 08:15 | MHC.CM.PN ---
CM met with Patient at bedside. Patient lives in a house with her /HCP and she uses a cane to assist with mobility. Patient has a [employer] 1 hour/day and she gets her Methadone from a [facility] (she believes it is [facility]).Home/resume said services is the goal and CM has initiated and will follow for dc planning. Patient is not Covid micha'd and her PCP is Dr. Ilya De Leon.
[2022-09-27] MEDS: Morphine Sulfate 4 MG/ML CARTRIDGE 2 MG IVPUSH ×3 (08:19→21:19)
[2022-09-27] MEDS: Metoprolol Tartrate 12.5 MG HALFTAB PO ×2 (08:20→20:03)
[2022-09-27] MEDS: predniSONE 5 MG TABLET 15 MG PO (08:20)
[2022-09-27] MEDS: 0.9 % Sodium Chloride Flush 3 ML SYRINGE IVFLUSH (08:20)
[2022-09-27] MEDS: Cholecalciferol (Vitamin D3) 25 MCG TABLET PO (08:20)
--- NOTE | 2022-09-27 08:25 | HO.PM.IMPN ---
Subjective Subjective Date of Service: 09/27/22 Interval History: back pain, headache Physical Exam Vital Signs: Vital Signs: Last Vital Signs Temp 98.4 F 09/27/22 07:43 Pulse 79 09/27/22 07:43 Resp 20 09/27/22 07:43 BP 112/61 09/27/22 07:43 Pulse Ox 94 09/27/22 07:43 O2 Del Method Room Air 09/27/22 07:43 BMI result Body Mass Index 38.4 General: AO X 3, in pain Resp: CTA bilateral, no accessory muscles used CVS: S1,S2,RRR GI: soft, non tender, non distended Neuro: motor grossly intact, alert Psych: appropriate affect, appropriate insight Objective Data Active Medications Acetaminophen (Acetaminophen 325 Mg Tablet) 650 mg PO Q6H PRN PRN Reason: Pain, Mild (Pain Scale 1-3) Last Admin: 09/27/22 06:06 Dose: 650 mg Documented By: GERARDO Atorvastatin Calcium (Atorvastatin Calcium 10 Mg Tablet) 10 mg PO BEDTIME [facility] Betamethasone Dipropion Augmented (Betamethasone Dip Aug 0.05% Cr 15 Gm Tube) 1 appl TOPICAL BID PRN PRN Reason: psoriasis Clonazepam (Clonazepam 0.5 Mg Tablet) 0.5 mg PO BID PRN PRN Reason: Anxiety Last Admin: 09/26/22 22:36 Dose: 0.5 mg Documented By: AMPARO Docusate Sodium (Docusate Sodium 100 Mg Capsule) 100 mg PO DAILY PRN PRN Reason: Constipation Enoxaparin Sodium (Enoxaparin Sodium 40 Mg/0.4 Ml Syringe) 40 mg SUBCUT Q24H [facility] Last Admin: 09/26/22 21:25 Dose: 40 mg Documented By: AMPARO Ceftriaxone Sodium 1 gm/ (Sodium Chloride) 50 mls @ 100 mls/hr IV Q24H [facility] Loratadine (Loratadine 10 Mg Tablet) 10 mg PO DAILY PRN PRN Reason: Allergic Symptoms Metoprolol Tartrate (Metoprolol Tartrate 12.5 Mg Halftab) 12.5 mg PO BID [facility]; Protocol Last Admin: 09/27/22 08:20 Dose: 12.5 mg Documented By: NADIRA Morphine Sulfate (Morphine Sulfate 4 Mg/Ml Cartridge) 2 mg IVPUSH Q6H PRN; Protocol PRN Reason: Pain, Severe (Pain Scale 7-10) Last Admin: 09/27/22 08:19 Dose: 2 mg Documented By: NADIRA Nicotine Polacrilex (Nicotine Polacrilex 2 Mg Gum) 2 mg BUCCAL Q2H PRN PRN Reason: Nicotine Cravings Ondansetron HCl (Ondansetron Hcl 4 Mg/2 Ml Vial) 4 mg IVPUSH Q8H PRN PRN Reason: Nausea and Vomiting Oxycodone HCl (Oxycodone Hcl Immed Release 5 Mg Tablet) 5 mg PO Q6H PRN PRN Reason: Pain, Severe (Pain Scale 7-10) Last Admin: 09/27/22 06:07 Dose: 5 mg Documented By: GERARDO Pharmacy Consult (Consult Rx Perform Med Rec) 1 each MISCELLANE ONCE PRN PRN Reason: Consult order Prednisone (Prednisone 5 Mg Tablet) 15 mg PO DAILY [facility] Last Admin: 09/27/22 08:20 Dose: 15 mg Documented By: NADIRA Sodium Chloride (0.9 % Sodium Chloride Flush 3 Ml Syringe) 3 ml IVFLUSH QSHIFT [facility] Last Admin: 09/27/22 08:20 Dose: 3 ml Documented By: NADIRA Vitamin D (Cholecalciferol (Vitamin D3) 25 Mcg Tablet) 25 mcg PO DAILY [facility] Last Admin: 09/27/22 08:20 Dose: 25 mcg Documented By: NADIRA Labs 09/26/22 16:44 09/26/22 16:53 Labs: Laboratory Results - last 24 hr 09/26/22 09/26/22 09/26/22 16:44 16:44 16:44 MCV 89.1 MCH 29.9 MCHC 33.6 RDW 12.8 Plt Count 335 MPV 9.9 Immature Gran % (Auto) 0.3 Neut % (Auto) 77.9 H Lymph % (Auto) 13.7 L [place] % (Auto) 7.2 Eos % (Auto) 0.4 Baso % (Auto) 0.5 Lymph # (Auto) 1.8 [place] # (Auto) 1.0 Eos # (Auto) 0.1 Baso # (Auto) 0.1 Abs Immat Gran (auto) 0.04 H Absolute Neuts (auto) 10.5 H Absolute Nucleated RBC 0.000 Nucleated RBC % (auto) 0.0 PT INR Anion Gap Estim Creat Clear Calc Estimated GFR Random Glucose Lactic Acid 1.6 Calcium Magnesium Total Bilirubin Direct Bilirubin AST ALT Alkaline Phosphatase Troponin I High Sens < 2.7 B-Natriuretic Peptide Total Protein Albumin Lipase TSH Urine Color Urine Appearance Urine pH Ur Specific [place] Urine Protein Urine Glucose (UA) Urine Ketones Urine Blood Urine Nitrite Ur Leukocyte Esterase Urine RBC Urine WBC Ur Squamous Epith Cells Urine Bacteria Hyaline Casts 09/26/22 09/26/22 09/26/22 16:44 16:53 16:53 MCV MCH MCHC RDW Plt Count MPV Immature Gran % (Auto) Neut % (Auto) Lymph % (Auto) [place] % (Auto) Eos % (Auto) Baso % (Auto) Lymph # (Auto) [place] # (Auto) Eos # (Auto) Baso # (Auto) Abs Immat Gran (auto) Absolute Neuts (auto) Absolute Nucleated RBC Nucleated RBC % (auto) PT 13.2 H INR 1.1 Anion Gap 15 Estim Creat Clear Calc 94.4 Estimated GFR > 60 Random Glucose 87 Lactic Acid Calcium 10.4 H Magnesium 1.8 Total Bilirubin 0.9 Direct Bilirubin 0.3 AST 10 ALT 11 Alkaline Phosphatase 101 Troponin I High Sens B-Natriuretic Peptide Total Protein 7.3 Albumin 4.1 Lipase 6 L TSH 1.47 Urine Color Urine Appearance Urine pH Ur Specific [place] Urine Protein Urine Glucose (UA) Urine Ketones Urine Blood Urine Nitrite Ur Leukocyte Esterase Urine RBC Urine WBC Ur Squamous Epith Cells Urine Bacteria Hyaline Casts 09/26/22 09/26/22 16:53 17:01 MCV MCH MCHC RDW Plt Count MPV Immature Gran % (Auto) Neut % (Auto) Lymph % (Auto) [place] % (Auto) Eos % (Auto) Baso % (Auto) Lymph # (Auto) [place] # (Auto) Eos # (Auto) Baso # (Auto) Abs Immat Gran (auto) Absolute Neuts (auto) Absolute Nucleated RBC Nucleated RBC % (auto) PT INR Anion Gap Estim Creat Clear Calc Estimated GFR Random Glucose Lactic Acid Calcium Magnesium Total Bilirubin Direct Bilirubin AST ALT Alkaline Phosphatase Troponin I High Sens B-Natriuretic Peptide 172 H Total Protein Albumin Lipase TSH Urine Color Dark Yellow Urine Appearance Cloudy Urine pH 8.5 Ur Specific [place] 1.010 Urine Protein 100 (2+) H Urine Glucose (UA) Negative Urine Ketones 15 Urine Blood Moderate (2+) H Urine Nitrite Negative Ur Leukocyte Esterase Large (3+) H Urine RBC >20 H Urine WBC >50 H Ur Squamous Epith Cells 0-2 Urine Bacteria 1+ Hyaline Casts 0-2 Assessment and Plan (1) Acute pyelonephritis: Status: Acute Plan 57F PMH HLD, migraines, psoriasis, obesity, presented with back pain found to have sepsis and afib with rvr sepsis due to acute pyelonephritis continue rocephin follow up cultures new onset afib with rvr converted to sinus follow up echo, cardio continue meroprolol pulm nodule chest ct in 3-6 months hld statin obesity weight loss smoking cessation DVT prophylaxis-Lovenox Full code reason for continued hospitalization:awaiting cultures, defervesence Time Spent With Patient Time: Total time managing care of this patient today ____ minutes. Quality Stroke Does the patient have a stroke diagnosis?: No VTE Prior VTE?: No VTE Risk Level:: Medical - moderate - high VTE Device Contraindication: Treatment Not Indicated VTE Drug Contraindication: N/A - Med Ordered
[2022-09-27 09:55] LABS: MANUAL DIFF FLAG NO
[2022-09-27 10:00] LABS: Basophils Absolute Auto 0.1 X10*3/uL (0.0-0.2); Basophils Percent Auto 0.4 % (0-2); Eosinophils Absolute Auto 0.1 X10*3/uL (0.0-0.4); Eosinophils Percent Auto 0.7 % (0-4); Hematocrit 45.2 % (37.0-47.0); Hemoglobin 14.9 g/dl (12.0-16.0); Imm Gran Abs Auto 0.04 X10*3/uL (0.00-0.03); Imm Gran Pct Auto 0.3 % (0.0-0.4); Lymphocytes Absolute Auto 1.8 X10*3/uL (1.2-4.9); Lymphocytes Percent Auto 13.6 % (20-40); Mean Corpuscular Hemoglobin 29.9 pg (27.0-33.0); Mean Corpuscular Volume 90.6 fL (80.0-98.0); Mean Platelet Volume 9.7 fL (9.4-12.3); Monocytes Absolute Auto 0.9 X10*3/uL (0.1-1.2); Monocytes Percent Auto 6.6 % (2-11); Neutrophils Absolute Auto 10.6 x10*3/uL (2.0-8.3); Neutrophils Percent Auto 78.4 % (45-73); Platelet Count 264 X10*3/uL (160-400); Red Blood Count 4.99 X10*6/uL (4.20-5.50); Red Cell Distribution Width 12.9 % (11.0-16.0); White Blood Count 13.6 X10*3/uL (4.8-10.8)
[2022-09-27 10:38] LABS: Anion Gap 12 (12-20); Blood Urea Nitrogen 7 mg/dL (9-16); Calcium 9.3 mg/dL (8.4-10.2); Carbon Dioxide 25 mmol/L (22-29); Chloride 107 mmol/L (96-108); Estimated Glomerular Filt Rate > 60; Glucose Random 105 mg/dL (60-115); Potassium 2.7 mmol/L (3.3-5.1); Sodium 141 mmol/L (135-145)
--- NOTE | 2022-09-27 11:44 | HE.PHANOTE ---
RE METHADONE 109 MG LAST DOSE 09/26 FROM [facility]
[2022-09-27] MEDS: methADONE HCl 20 MG/2 ML ORAL.CONC 109 MG PO (12:52)
--- NOTE | 2022-09-27 16:18 | P.CONCA_ITS ---
History of Present Illness History of Present Illness Date of Service: 09/27/22 Requesting physician: Cassi Maldonado Chief complaint: pyleonephritis, new onset AFib rvr Narrative: [age] year female who is presenting for chest pain and palpitations in the setting of pyelonephritis. She was noticed to be in AFib with RVR. She has been started on antibiotics and was also given metoprolol. She has reverted back to sinus rhythm. Chads Vasc score was 1 for her gender and she has not been on anticoagulation. She is saying she was not feeling well and had a lot of urinary complaints. She is saying she does not have any chest discomfort anymore. She is back in sinus rhythm as mentioned. [facility] Past Medical History Medical History Hyperlipidemia Migraine Social History Social History Household Members: Spouse Housing: Apartment Patient Tobacco Use Status: Former Tobacco user Tobacco use type: Cigarette Cigarette Packs Per Day: 0.5 Cigarettes Per Day: 10 e-Cigarette/Vaping Use: Never Used service: No Meds Allergies Allergy/AdvReac Type Severity Reaction Status Date / Time Penicillins [PENICILLINS] Allergy Mild UNKNOWN Verified 03/08/22 13:03 aspirin [ASPIRIN] Allergy Unknown UNKNOWN Verified 03/08/22 13:03 ibuprofen [IBUPROFEN] Allergy Unknown UNKNOWN Verified 03/08/22 13:03 sumatriptan [From IMITREX] Allergy Unknown UNKNOWN Verified 03/08/22 13:03 From COMPAZINE Allergy Unknown UNKNOWN Uncoded 03/08/22 13:03 From IMITREX Allergy Unknown UNKNOWN Uncoded 03/08/22 13:03 Active Medications: Current Medications Acetaminophen (Acetaminophen 325 Mg Tablet) 650 mg PO Q6H PRN PRN Reason: Pain, Mild (Pain Scale 1-3) Last Admin: 09/27/22 12:11 Dose: 650 mg Atorvastatin Calcium (Atorvastatin Calcium 10 Mg Tablet) 10 mg PO BEDTIME [facility] Betamethasone Dipropion Augmented (Betamethasone Dip Aug 0.05% Cr 15 Gm Tube) 1 appl TOPICAL BID PRN PRN Reason: psoriasis Clonazepam (Clonazepam 0.5 Mg Tablet) 0.5 mg PO BID PRN PRN Reason: Anxiety Last Admin: 09/26/22 22:36 Dose: 0.5 mg Docusate Sodium (Docusate Sodium 100 Mg Capsule) 100 mg PO DAILY PRN PRN Reason: Constipation Enoxaparin Sodium (Enoxaparin Sodium 40 Mg/0.4 Ml Syringe) 40 mg SUBCUT Q24H [facility] Last Admin: 09/26/22 21:25 Dose: 40 mg Ceftriaxone Sodium 1 gm/ (Sodium Chloride) 50 mls @ 100 mls/hr IV Q24H [facility] Loratadine (Loratadine 10 Mg Tablet) 10 mg PO DAILY PRN PRN Reason: Allergic Symptoms Methadone HCl (Methadone Hcl 20 Mg/2 Ml Oral.Conc) 109 mg PO DAILY [facility] Last Admin: 09/27/22 12:52 Dose: 109 mg Metoprolol Tartrate (Metoprolol Tartrate 12.5 Mg Halftab) 12.5 mg PO BID [facility]; Protocol Last Admin: 09/27/22 08:20 Dose: 12.5 mg Morphine Sulfate (Morphine Sulfate 4 Mg/Ml Cartridge) 2 mg IVPUSH Q4H PRN; Protocol PRN Reason: Pain, Severe (Pain Scale 7-10) Last Admin: 09/27/22 15:31 Dose: 2 mg Nicotine Polacrilex (Nicotine Polacrilex 2 Mg Gum) 2 mg BUCCAL Q2H PRN PRN Reason: Nicotine Cravings Ondansetron HCl (Ondansetron Hcl 4 Mg/2 Ml Vial) 4 mg IVPUSH Q8H PRN PRN Reason: Nausea and Vomiting Oxycodone HCl (Oxycodone Hcl Immed Release 5 Mg Tablet) 5 mg PO Q4H PRN PRN Reason: Pain, Severe (Pain Scale 7-10) Last Admin: 09/27/22 12:09 Dose: 5 mg Pharmacy Consult (Consult Rx Perform Med Rec) 1 each MISCELLANE ONCE PRN PRN Reason: Consult order Prednisone (Prednisone 5 Mg Tablet) 15 mg PO DAILY [facility] Last Admin: 09/27/22 08:20 Dose: 15 mg Sodium Chloride (0.9 % Sodium Chloride Flush 3 Ml Syringe) [facility] Last Admin: 09/27/22 15:36 Dose: Not Given Vitamin D (Cholecalciferol (Vitamin D3) 25 Mcg Tablet) 25 mcg PO DAILY [facility] Last Admin: 09/27/22 08:20 Dose: 25 mcg Home Medications Medication Instructions Recorded Confirmed Last Taken Type acetaminophen 500 mg tablet 1,000 mg PO Q6H PRN Pain 09/26/22 09/26/22 Unknown History bismuth subsalicylate 525 mg/15 mL 525 mg PO Q30M PRN 09/26/22 09/26/22 09/25/22 History oral suspension (Pepto-Bismol Max diarrhea/indegestion St) cholecalciferol (vitamin D3) 25 25 mcg PO DAILY 09/26/22 09/26/22 09/25/22 Histo ry mcg (1,000 unit) capsule (Vitamin D3) clonazepam 0.5 mg tablet 0.5 mg PO BID PRN Anxiety 09/26/22 09/26/22 09/26/22 History halobetasol propionate 0.05 % 1 appl topical BID PRN psoriasis 09/26/22 09/26/22 Unknown History topical ointment ketoconazole 2 % shampoo 1 ea topical [id number] 09/26/22 09/26/22 09/25/22 History loratadine 10 mg tablet 10 mg PO DAILY PRN Allergic 09/26/22 09/26/22 Unknown History Symptoms methadone 10 mg/mL oral concentrate 109 mg PO DAILY 09/26/22 09/27/22 09/26/22 History prednisone 5 mg tablet 15 mg PO DAILY 09/26/22 09/26/22 09/25/22 History simvastatin 20 mg tablet 20 mg PO BEDTIME 09/26/22 09/26/22 09/25/22 History tramadol 50 mg tablet 50 mg PO TID PRN Pain 09/26/22 09/26/22 Unknown History Physical Exam Vital Signs: Vital Signs: Last Vital Signs Temp 96.5 F L 09/27/22 15:57 Pulse 74 09/27/22 15:57 Resp 18 09/27/22 15:57 BP 111/55 L 09/27/22 15:57 Pulse Ox 97 09/27/22 15:57 O2 Del Method Room Air 09/27/22 15:57 BMI result Body Mass Index 38.4 GENERAL APPEARANCE: in no acute distress, pleasant. NECK: no carotid bruit, no jugular venous distention. SKIN: no suspicious lesions, warm and dry. HEART: no murmurs, regular rate and rhythm. LUNGS: clear to auscultation bilaterally. ABDOMEN: soft, nontender. EXTREMITIES: no edema. PERIPHERAL PULSES: equal. NEUROLOGIC: No gross deficits, AAO X 3 Objective Labs and Meds 09/27/22 09:09 09/27/22 09:09 Lab results: Laboratory Results - last 24 hr 09/26/22 09/26/22 09/26/22 16:44 16:44 16:44 WBC 13.4 H RBC 5.95 H Hgb 17.8 H Hct 53.0 H MCV 89.1 MCH 29.9 MCHC 33.6 RDW 12.8 Plt Count 335 MPV 9.9 Immature Gran % (Auto) 0.3 Neut % (Auto) 77.9 H Lymph % (Auto) 13.7 L [place] % (Auto) 7.2 Eos % (Auto) 0.4 Baso % (Auto) 0.5 Lymph # (Auto) 1.8 [place] # (Auto) 1.0 Eos # (Auto) 0.1 Baso # (Auto) 0.1 Abs Immat Gran (auto) 0.04 H Absolute Neuts (auto) 10.5 H Absolute Nucleated RBC 0.000 Nucleated RBC % (auto) 0.0 PT INR Sodium Potassium Chloride Carbon Dioxide Anion Gap BUN Creatinine Estim Creat Clear Calc Estimated GFR Random Glucose Lactic Acid 1.6 Calcium Magnesium Total Bilirubin Direct Bilirubin AST ALT Alkaline Phosphatase Troponin I High Sens < 2.7 B-Natriuretic Peptide Total Protein Albumin Lipase TSH Urine Color Urine Appearance Urine pH Ur Specific [place] Urine Protein Urine Glucose (UA) Urine Ketones Urine Blood Urine Nitrite Ur Leukocyte Esterase Urine RBC Urine WBC Ur Squamous Epith Cells Urine Bacteria Hyaline Casts 09/26/22 09/26/22 09/26/22 16:44 16:53 16:53 WBC RBC Hgb Hct MCV MCH MCHC RDW Plt Count MPV Immature Gran % (Auto) Neut % (Auto) Lymph % (Auto) [place] % (Auto) Eos % (Auto) Baso % (Auto) Lymph # (Auto) [place] # (Auto) Eos # (Auto) Baso # (Auto) Abs Immat Gran (auto) Absolute Neuts (auto) Absolute Nucleated RBC Nucleated RBC % (auto) PT 13.2 H INR 1.1 Sodium 144 Potassium 3.4 Chloride 106 Carbon Dioxide 26 Anion Gap 15 BUN 5 L Creatinine 0.72 Estim Creat Clear Calc 94.4 Estimated GFR > 60 Random Glucose 87 Lactic Acid Calcium 10.4 H Magnesium 1.8 Total Bilirubin 0.9 Direct Bilirubin 0.3 AST 10 ALT 11 Alkaline Phosphatase 101 Troponin I High Sens B-Natriuretic Peptide Total Protein 7.3 Albumin 4.1 Lipase 6 L TSH 1.47 Urine Color Urine Appearance Urine pH Ur Specific [place] Urine Protein Urine Glucose (UA) Urine Ketones Urine Blood Urine Nitrite Ur Leukocyte Esterase Urine RBC Urine WBC Ur Squamous Epith Cells Urine Bacteria Hyaline Casts 09/26/22 09/26/22 09/27/22 16:53 17:01 09:09 WBC 13.6 H RBC 4.99 Hgb 14.9 Hct 45.2 MCV 90.6 MCH 29.9 MCHC 33.0 RDW 12.9 Plt Count 264 MPV 9.7 Immature Gran % (Auto) 0.3 Neut % (Auto) 78.4 H Lymph % (Auto) 13.6 L [place] % (Auto) 6.6 Eos % (Auto) 0.7 Baso % (Auto) 0.4 Lymph # (Auto) 1.8 [place] # (Auto) 0.9 Eos # (Auto) 0.1 Baso # (Auto) 0.1 Abs Immat Gran (auto) 0.04 H Absolute Neuts (auto) 10.6 H Absolute Nucleated RBC 0.000 Nucleated RBC % (auto) 0.0 PT INR Sodium Potassium Chloride Carbon Dioxide Anion Gap BUN Creatinine Estim Creat Clear Calc Estimated GFR Random Glucose Lactic Acid Calcium Magnesium Total Bilirubin Direct Bilirubin AST ALT Alkaline Phosphatase Troponin I High Sens B-Natriuretic Peptide 172 H Total Protein Albumin Lipase TSH Urine Color Dark Yellow Urine Appearance Cloudy Urine pH 8.5 Ur Specific [place] 1.010 Urine Protein 100 (2+) H Urine Glucose (UA) Negative Urine Ketones 15 Urine Blood Moderate (2+) H Urine Nitrite Negative Ur Leukocyte Esterase Large (3+) H Urine RBC >20 H Urine WBC >50 H Ur Squamous Epith Cells 0-2 Urine Bacteria 1+ Hyaline Casts 0-2 09/27/22 09:09 WBC RBC Hgb Hct MCV MCH MCHC RDW Plt Count MPV Immature Gran % (Auto) Neut % (Auto) Lymph % (Auto) [place] % (Auto) Eos % (Auto) Baso % (Auto) Lymph # (Auto) [place] # (Auto) Eos # (Auto) Baso # (Auto) Abs Immat Gran (auto) Absolute Neuts (auto) Absolute Nucleated RBC Nucleated RBC % (auto) PT INR Sodium 141 Potassium 2.7 L D Chloride 107 Carbon Dioxide 25 Anion Gap 12 BUN 7 L Creatinine 0.62 Estim Creat Clear Calc 109.0 Estimated GFR > 60 Random Glucose 105 Lactic Acid Calcium 9.3 D Magnesium Total Bilirubin Direct Bilirubin AST ALT Alkaline Phosphatase Troponin I High Sens B-Natriuretic Peptide Total Protein Albumin Lipase TSH Urine Color Urine Appearance Urine pH Ur Specific [place] Urine Protein Urine Glucose (UA) Urine Ketones Urine Blood Urine Nitrite Ur Leukocyte Esterase Urine RBC Urine WBC Ur Squamous Epith Cells Urine Bacteria Hyaline Casts Imaging Radiologist's impression: Impressions Chest X-Ray 09/26/22 17:15 IMPRESSION: 1. Diffuse interstitial thickening is nonspecific and could be related with pulmonary edema or an atypical infectious/inflammatory process. 2. Focal opacities in the right lung likely represent summation artifacts from healing changes secondary to rib fractures involving the right fourth through sixth ribs, however underlying pulmonary nodules are difficult to entirely exclude, recommend follow-up with an outpatient chest CT in 3-6 months. Assessment and Plan (1) Atrial fibrillation with rapid ventricular response: Status: Acute Plan Pleasant 57 year female with paroxysmal atrial fibrillation setting of pyelonephritis. This is clearly triggered event in the setting of severe infection. She is back in sinus rhythm at this point. Agree with low-dose metoprolol for now. Anticoagulation is not indicated currently. She clearly had palpitations when she developed AFib so she can be monitored as outpatient for symptoms and further testing can be done if she has recurrent symptoms. We will review the echocardiogram. Thank you for allowing me to participate in the care of your patient. Please feel free to contact me if you have any questions. Time Spent With Patient Time: Total time managing care of this patient today ____ minutes. Procedures Date of Service Date of Service: 09/27/22
[2022-09-27] MEDS: cefTRIAXone sodium 1 GM in 0.9 % Sodium Chloride 50 ML IV (17:38)
[2022-09-27] MEDS: Pseudoephedrine HCL 30 MG TABLET PO (17:53)
[2022-09-27] MEDS: clonazePAM 0.5 MG TABLET PO (20:03)
[2022-09-27] MEDS: Atorvastatin Calcium 10 MG TABLET PO (20:03)
[2022-09-27] MEDS: Enoxaparin Sodium 40 MG/0.4 ML SYRINGE SUBCUT (20:03)
[2022-09-28] MEDS: oxyCODONE HCl Immed Release 5 MG TABLET PO ×4 (00:24→20:52)
[2022-09-28] MEDS: 0.9 % Sodium Chloride Flush 3 ML SYRINGE IVFLUSH ×3 (00:25→17:37)
[2022-09-28] MEDS: Morphine Sulfate 4 MG/ML CARTRIDGE 2 MG IVPUSH ×3 (02:48→19:33)
[2022-09-28 03:45] VITALS: BP 114/61; PULSE 79; RESP 20; TEMP 37.6; O2SAT 97
[2022-09-28 06:15] LABS: Hematocrit 47.2 % (37.0-47.0); Hemoglobin 15.2 g/dl (12.0-16.0); Mean Corpuscular HGB Conc 32.2 g/dl (31.0-35.0); Mean Corpuscular Hemoglobin 29.5 pg (27.0-33.0); Mean Corpuscular Volume 91.7 fL (80.0-98.0); Mean Platelet Volume 9.3 fL (9.4-12.3); Platelet Count 211 X10*3/uL (160-400); Red Blood Count 5.15 X10*6/uL (4.20-5.50); Red Cell Distribution Width 12.6 % (11.0-16.0); White Blood Count 12.1 X10*3/uL (4.8-10.8)
[2022-09-28 06:38] LABS: Anion Gap 15 (12-20); Blood Urea Nitrogen 11 mg/dL (9-16); Calcium 9.6 mg/dL (8.4-10.2); Carbon Dioxide 21 mmol/L (22-29); Chloride 108 mmol/L (96-108); Creatinine Clr Calc Pharmacy 102.3; Estimated Glomerular Filt Rate > 60; Potassium 3.7 mmol/L (3.3-5.1); Sodium 140 mmol/L (135-145)
[2022-09-28 06:39] LABS: Glucose Fasting 58 mg/dL (60-99)
[2022-09-28 07:03] LABS: Glucose, Whole Blood 63 mg/dL (60-115)
[2022-09-28 07:24] VITALS: BP 129/63; PULSE 82; RESP 18; TEMP 36.6; O2SAT 95
[2022-09-28] MEDS: predniSONE 5 MG TABLET 15 MG PO (08:21)
[2022-09-28] MEDS: Cholecalciferol (Vitamin D3) 25 MCG TABLET PO (08:21)
[2022-09-28] MEDS: methADONE HCl 20 MG/2 ML ORAL.CONC 109 MG PO (08:21)
[2022-09-28] MEDS: Metoprolol Tartrate 12.5 MG HALFTAB PO ×2 (08:21→20:47)
[2022-09-28] MEDS: Acetaminophen 325 MG TABLET 650 MG PO ×2 (08:29→18:36)
[2022-09-28] MEDS: clonazePAM 0.5 MG TABLET PO ×2 (08:36→20:54)
--- NOTE | 2022-09-28 08:36 | P.PNIM_ITS ---
Subjective Subjective Date of Service: 09/28/22 Interval History: Overall improved, still with headache and flank pain and low appetite Physical Exam Vital Signs: Vital Signs: Last Vital Signs Temp 97.8 F 09/28/22 07:24 Pulse 82 09/28/22 07:24 Resp 18 09/28/22 07:24 BP 129/63 09/28/22 07:24 Pulse Ox 95 09/28/22 07:24 O2 Del Method Room Air 09/28/22 07:24 BMI result Body Mass Index 38.4 GENERAL APPEARANCE: in no acute distress, pleasant. NECK: no carotid bruit, no jugular venous distention. SKIN: no suspicious lesions, warm and dry. HEART: no murmurs, regular rate and rhythm. LUNGS: clear to auscultation bilaterally. ABDOMEN: soft, nontender. EXTREMITIES: no edema. PERIPHERAL PULSES: equal. NEUROLOGIC: No gross deficits, AAO X 3 Objective Data Active Medications Acetaminophen (Acetaminophen 325 Mg Tablet) 650 mg PO Q6H PRN PRN Reason: Pain, Mild (Pain Scale 1-3) Last Admin: 09/27/22 20:02 Dose: 650 mg Documented By: KELLEN Atorvastatin Calcium (Atorvastatin Calcium 10 Mg Tablet) 10 mg PO BEDTIME [facility] Last Admin: 09/27/22 20:03 Dose: 10 mg Documented By: KELLEN Betamethasone Dipropion Augmented (Betamethasone Dip Aug 0.05% Cr 15 Gm Tube) 1 appl TOPICAL BID PRN PRN Reason: psoriasis Clonazepam (Clonazepam 0.5 Mg Tablet) 0.5 mg PO BID PRN PRN Reason: Anxiety Last Admin: 09/27/22 20:03 Dose: 0.5 mg Documented By: KELLEN Docusate Sodium (Docusate Sodium 100 Mg Capsule) 100 mg PO DAILY PRN PRN Reason: Constipation Enoxaparin Sodium (Enoxaparin Sodium 40 Mg/0.4 Ml Syringe) 40 mg SUBCUT Q24H [facility] Last Admin: 09/27/22 20:03 Dose: 40 mg Documented By: KELLEN Ceftriaxone Sodium 1 gm/ (Sodium Chloride) 50 mls @ 100 mls/hr IV Q24H [facility] Last Infusion: 09/27/22 18:17 Dose: 0 mls/hr Documented By: SOLISPE Loratadine (Loratadine 10 Mg Tablet) 10 mg PO DAILY PRN PRN Reason: Allergic Symptoms Methadone HCl (Methadone Hcl 20 Mg/2 Ml Oral.Conc) 109 mg PO DAILY [facility] Last Admin: 09/27/22 12:52 Dose: 109 mg Documented By: NADIRA Metoprolol Tartrate (Metoprolol Tartrate 12.5 Mg Halftab) 12.5 mg PO BID [facility]; Protocol Last Admin: 09/27/22 20:03 Dose: 12.5 mg Documented By: KELLEN Morphine Sulfate (Morphine Sulfate 4 Mg/Ml Cartridge) 2 mg IVPUSH Q4H PRN; Protocol PRN Reason: Pain, Severe (Pain Scale 7-10) Last Admin: 09/28/22 02:48 Dose: 2 mg Documented By: KELLEN Nicotine Polacrilex (Nicotine Polacrilex 2 Mg Gum) 2 mg BUCCAL Q2H PRN PRN Reason: Nicotine Cravings Ondansetron HCl (Ondansetron Hcl 4 Mg/2 Ml Vial) 4 mg IVPUSH Q8H PRN PRN Reason: Nausea and Vomiting Oxycodone HCl (Oxycodone Hcl Immed Release 5 Mg Tablet) 5 mg PO Q4H PRN PRN Reason: Pain, Severe (Pain Scale 7-10) Last Admin: 09/28/22 06:29 Dose: 5 mg Documented By: KELLEN Pharmacy Consult (Consult Rx Perform Med Rec) 1 each MISCELLANE ONCE PRN PRN Reason: Consult order Prednisone (Prednisone 5 Mg Tablet) 15 mg PO DAILY [facility] Last Admin: 09/27/22 08:20 Dose: 15 mg Documented By: NADIRA Sodium Chloride (0.9 % Sodium Chloride Flush 3 Ml Syringe) 3 ml IVFLUSH QSHIFT [facility] Last Admin: 09/28/22 00:25 Dose: 3 ml Documented By: KELLEN Vitamin D (Cholecalciferol (Vitamin D3) 25 Mcg Tablet) 25 mcg PO DAILY [facility] Last Admin: 09/27/22 08:20 Dose: 25 mcg Documented By: NADIRA Labs 09/28/22 06:00 09/28/22 05:54 Labs: Laboratory Results - last 24 hr 09/27/22 09/27/22 09/28/22 09:09 09:09 05:54 MCV 90.6 MCH 29.9 MCHC 33.0 RDW 12.9 Plt Count 264 MPV 9.7 Immature Gran % (Auto) 0.3 Neut % (Auto) 78.4 H Lymph % (Auto) 13.6 L [place] % (Auto) 6.6 Eos % (Auto) 0.7 Baso % (Auto) 0.4 Lymph # (Auto) 1.8 [place] # (Auto) 0.9 Eos # (Auto) 0.1 Baso # (Auto) 0.1 Abs Immat Gran (auto) 0.04 H Absolute Neuts (auto) 10.6 H Absolute Nucleated RBC 0.000 Nucleated RBC % (auto) 0.0 Anion Gap 12 15 Estim Creat Clear Calc 109.0 102.3 Estimated GFR > 60 > 60 POC Glucose Random Glucose 105 Fasting Glucose 58 L* Calcium 9.3 D 9.6 09/28/22 09/28/22 06:00 06:57 MCV 91.7 MCH 29.5 MCHC 32.2 RDW 12.6 Plt Count 211 MPV 9.3 L Immature Gran % (Auto) Neut % (Auto) Lymph % (Auto) [place] % (Auto) Eos % (Auto) Baso % (Auto) Lymph # (Auto) [place] # (Auto) Eos # (Auto) Baso # (Auto) Abs Immat Gran (auto) Absolute Neuts (auto) Absolute Nucleated RBC 0.000 Nucleated RBC % (auto) 0.0 Anion Gap Estim Creat Clear Calc Estimated GFR POC Glucose 63 Random Glucose Fasting Glucose Calcium Microbiology Microbiology Results: Microbiology 09/26/22 16:44 Blood Culture - Preliminary Blood - Venous No growth after 24 hours. 09/26/22 Unknown Urine Culture - Preliminary Urine clean catch - Urine heredia top Gram negative [place] 09/26/22 16:53 Blood Culture - Preliminary Blood - Venous Prelim: GNR Gram Stain only Assessment and Plan (1) Acute pyelonephritis: Status: Acute Plan 57F PMH HLD, migraines, psoriasis, obesity, presented with back pain found to have sepsis and afib with rvr sepsis due to acute pyelonephritis complicated by gnr bacteremia continue rocephin follow up cultures new onset afib with rvr converted to sinus likely due to above continue meroprolol unlikely to benefit from anticoagulation pulm nodule chest ct in 3-6 months hld statin obesity weight loss smoking cessation DVT prophylaxis-Lovenox Full code reason for continued hospitalization:awaiting cultures, defervesence Time Spent With Patient Time: Total time managing care of this patient today ____ minutes. Quality Stroke Does the patient have a stroke diagnosis?: No VTE Prior VTE?: No VTE Risk Level:: Medical - moderate - high VTE Device Contraindication: Treatment Not Indicated VTE Drug Contraindication: N/A - Med Ordered
[2022-09-28 11:49] VITALS: BP 104/55; PULSE 74; RESP 20; TEMP 36.3; O2SAT 95
[2022-09-28] MEDS: ALPRAZolam 0.5 MG TABLET PO (15:09)
[2022-09-28 15:36] VITALS: BP 97/57; PULSE 76; RESP 18; TEMP 36.2; O2SAT 94
[2022-09-28] MEDS: cefTRIAXone sodium 1 GM in 0.9 % Sodium Chloride 50 ML IV (17:37)
[2022-09-28 19:45] VITALS: BP 110/62; PULSE 61; RESP 18; TEMP 36.1; O2SAT 95
[2022-09-28] MEDS: Enoxaparin Sodium 40 MG/0.4 ML SYRINGE SUBCUT (20:47)
[2022-09-28] MEDS: Atorvastatin Calcium 10 MG TABLET PO (20:47)
[2022-09-28] MEDS: Betamethasone Dip Aug 0.05% Cr 15 GM TUBE 1 APPL TOPICAL (23:30)
[2022-09-28 23:46] VITALS: BP 126/80; PULSE 63; RESP 18; TEMP 36.8; O2SAT 96
[2022-09-29] MEDS: Morphine Sulfate 4 MG/ML CARTRIDGE 2 MG IVPUSH ×2 (00:33→05:04)
[2022-09-29 04:00] VITALS: BP 130/69; PULSE 63; RESP 18; TEMP 36.4; O2SAT 100
[2022-09-29 05:05] LABS: Glucose, Whole Blood 62 mg/dL (60-115)
[2022-09-29] MEDS: Acetaminophen 325 MG TABLET 650 MG PO (05:05)
[2022-09-29 06:03] LABS: Glucose, Whole Blood 77 mg/dL (60-115)
--- NOTE | 2022-09-29 06:03 | PC.NURSE ---
Pt reported and noted to have slight tremors/shakiness during vitals at 0445. Pt also continues to c/o of 10/10 back pain. POC blood sugar was 62, and pt was encouraged to drink an orange juice. Pt also medicated for pain with 2mg morphine. When reassessed, POC BG was 77, pt presented as comfortable, trembling/shaking had resolved.
[2022-09-29 06:42] LABS: Hematocrit 42.5 % (37.0-47.0); Hemoglobin 14.3 g/dl (12.0-16.0); Mean Corpuscular HGB Conc 33.6 g/dl (31.0-35.0); Mean Corpuscular Hemoglobin 29.7 pg (27.0-33.0); Mean Corpuscular Volume 88.2 fL (80.0-98.0); Mean Platelet Volume 9.7 fL (9.4-12.3); Platelet Count 290 X10*3/uL (160-400); Red Blood Count 4.82 X10*6/uL (4.20-5.50); Red Cell Distribution Width 12.4 % (11.0-16.0)
[2022-09-29 06:59] LABS: Anion Gap 12 (12-20); Blood Urea Nitrogen 10 mg/dL (9-16); Calcium 9.6 mg/dL (8.4-10.2); Carbon Dioxide 28 mmol/L (22-29); Chloride 106 mmol/L (96-108); Estimated Glomerular Filt Rate > 60; Glucose Fasting 73 mg/dL (60-99); Sodium 143 mmol/L (135-145)
[2022-09-29 07:21] VITALS: BP 132/65; PULSE 70; RESP 20; TEMP 36.3; O2SAT 98
[2022-09-29] MEDS: predniSONE 5 MG TABLET 15 MG PO (08:55)
[2022-09-29] MEDS: Metoprolol Tartrate 12.5 MG HALFTAB PO ×2 (08:55→20:34)
[2022-09-29] MEDS: Cholecalciferol (Vitamin D3) 25 MCG TABLET PO (08:56)
[2022-09-29] MEDS: methADONE HCl 20 MG/2 ML ORAL.CONC 109 MG PO (08:56)
[2022-09-29] MEDS: 0.9 % Sodium Chloride Flush 3 ML SYRINGE IVFLUSH ×3 (08:58→20:33)
[2022-09-29 12:44] VITALS: BP 115/73; PULSE 67; RESP 18; TEMP 36.6; O2SAT 96
--- NOTE | 2022-09-29 12:45 | HO.PM.IMPN ---
Subjective Subjective Date of Service: 09/29/22 Interval History: Overall improved, still with headache and flank pain and low appetite Physical Exam Vital Signs: Vital Signs: Last Vital Signs Temp 98 F 09/29/22 12:44 Pulse 67 09/29/22 12:44 Resp 18 09/29/22 12:44 BP 115/73 09/29/22 12:44 Pulse Ox 96 09/29/22 12:44 O2 Del Method Room Air 09/29/22 12:44 BMI result Body Mass Index 38.4 GENERAL APPEARANCE: in no acute distress, pleasant. NECK: no carotid bruit, no jugular venous distention. SKIN: no suspicious lesions, warm and dry. HEART: no murmurs, regular rate and rhythm. LUNGS: clear to auscultation bilaterally. ABDOMEN: soft, nontender. EXTREMITIES: no edema. PERIPHERAL PULSES: equal. NEUROLOGIC: No gross deficits, AAO X 3 Objective Data Active Medications Acetaminophen (Acetaminophen 325 Mg Tablet) 650 mg PO Q6H PRN PRN Reason: Pain, Mild (Pain Scale 1-3) Last Admin: 09/29/22 05:05 Dose: 650 mg Documented By: RANDAL Atorvastatin Calcium (Atorvastatin Calcium 10 Mg Tablet) 10 mg PO BEDTIME [facility] Last Admin: 09/28/22 20:47 Dose: 10 mg Documented By: RANDAL Betamethasone Dipropion Augmented (Betamethasone Dip Aug 0.05% Cr 15 Gm Tube) 1 appl TOPICAL BID PRN PRN Reason: psoriasis Last Admin: 09/28/22 23:30 Dose: 1 appl Documented By: RANDAL Clonazepam (Clonazepam 0.5 Mg Tablet) 0.5 mg PO BID PRN PRN Reason: Anxiety Last Admin: 09/28/22 20:54 Dose: 0.5 mg Documented By: RANDAL Docusate Sodium (Docusate Sodium 100 Mg Capsule) 100 mg PO DAILY PRN PRN Reason: Constipation Enoxaparin Sodium (Enoxaparin Sodium 40 Mg/0.4 Ml Syringe) 40 mg SUBCUT Q24H [facility] Last Admin: 09/28/22 20:47 Dose: 40 mg Documented By: RANDAL Meropenem 1 gm/ Sodium (Chloride) 100 mls @ 200 mls/hr IV Q8H [facility] Loratadine (Loratadine 10 Mg Tablet) 10 mg PO DAILY PRN PRN Reason: Allergic Symptoms Methadone HCl (Methadone Hcl 20 Mg/2 Ml Oral.Conc) 109 mg PO DAILY [facility] Last Admin: 09/29/22 08:56 Dose: 109 mg Documented By: SYLVIA Metoprolol Tartrate (Metoprolol Tartrate 12.5 Mg Halftab) 12.5 mg PO BID [facility]; Protocol Last Admin: 09/29/22 08:55 Dose: 12.5 mg Documented By: SYLVIA Morphine Sulfate (Morphine Sulfate 4 Mg/Ml Cartridge) 2 mg IVPUSH Q4H PRN; Protocol PRN Reason: Pain, Severe (Pain Scale 7-10) Last Admin: 09/29/22 05:04 Dose: 2 mg Documented By: RANDAL Nicotine Polacrilex (Nicotine Polacrilex 2 Mg Gum) 2 mg BUCCAL Q2H PRN PRN Reason: Nicotine Cravings Ondansetron HCl (Ondansetron Hcl 4 Mg/2 Ml Vial) 4 mg IVPUSH Q8H PRN PRN Reason: Nausea and Vomiting Oxycodone HCl (Oxycodone Hcl Immed Release 5 Mg Tablet) 5 mg PO Q4H PRN PRN Reason: Pain, Severe (Pain Scale 7-10) Last Admin: 09/28/22 20:52 Dose: 5 mg Documented By: RANDAL Pharmacy Consult (Consult Rx Perform Med Rec) 1 each MISCELLANE ONCE PRN PRN Reason: Consult order Prednisone (Prednisone 5 Mg Tablet) 15 mg PO DAILY [facility] Last Admin: 09/29/22 08:55 Dose: 15 mg Documented By: SYLVIA Sodium Chloride (0.9 % Sodium Chloride Flush 3 Ml Syringe) 3 ml IVFLUSH QSHIFT [facility] Last Admin: 09/29/22 08:58 Dose: 3 ml Documented By: SYLVIA Vitamin D (Cholecalciferol (Vitamin D3) 25 Mcg Tablet) 25 mcg PO DAILY [facility] Last Admin: 09/29/22 08:56 Dose: 25 mcg Documented By: SYLVIA Labs 09/29/22 06:02 09/29/22 06:02 Labs: Laboratory Results - last 24 hr 09/29/22 09/29/22 09/29/22 05:01 05:58 06:02 MCV 88.2 MCH 29.7 MCHC 33.6 RDW 12.4 Plt Count 290 D MPV 9.7 Absolute Nucleated RBC 0.000 Nucleated RBC % (auto) 0.0 Anion Gap Estim Creat Clear Calc Estimated GFR POC Glucose 62 77 Fasting Glucose Calcium 09/29/22 06:02 MCV MCH MCHC RDW Plt Count MPV Absolute Nucleated RBC Nucleated RBC % (auto) Anion Gap 12 Estim Creat Clear Calc 109.0 Estimated GFR > 60 POC Glucose Fasting Glucose 73 Calcium 9.6 Microbiology Microbiology Results: Microbiology 09/26/22 Unknown Urine Culture - Final Urine clean catch - Urine heredia top Escherichia coli 09/26/22 16:53 Blood Culture - Final Blood - Venous Escherichia coli 09/26/22 16:44 Blood Culture - Preliminary Blood - Venous No growth after 48 hours. Assessment and Plan (1) Acute pyelonephritis: Status: Acute Plan 57F PMH HLD, migraines, psoriasis, obesity, presented with back pain found to have sepsis and afib with rvr sepsis due to acute pyelonephritis complicated by esbl ecoli bacteremia change to merem, plan for picc and 14 days ertapenem new onset afib with rvr converted to sinus likely due to above continue meroprolol unlikely to benefit from anticoagulation pulm nodule chest ct in 3-6 months hld statin obesity weight loss smoking cessation DVT prophylaxis-Lovenox Full code reason for continued hospitalization:needs picc and home abx set up Time Spent With Patient Time: Total time managing care of this patient today ____ minutes. Quality Stroke Does the patient have a stroke diagnosis?: No VTE Prior VTE?: No VTE Risk Level:: Medical - moderate - high VTE Device Contraindication: Treatment Not Indicated VTE Drug Contraindication: N/A - Med Ordered
--- NOTE | 2022-09-29 13:10 | MHC.CM.PN ---
Addendum entered by Adelina Stein RN 09/29/22 16:30: CM RECEIVED MESSAGE FROM [facility] W/REPORTED CONCERNS FROM THERE PHARMACIST REGARDING PT'S METHADONE DOSE IT IS A HIGHER DOSE, [facility] CALLED PT TO GO REVIEW HX/REASON FOR METHADONE AND PT WAS VAGUE REGARDING WHY AND DETAILS OF WHERE/WHAT HER PAIN WAS, PT DID REPORT THE PAIN CLINIC SHE WAS GOING TO WAS SHUT DOWN AND RAIDED BY [employer] AND THATS WHY PT ENDED UP IN METHADONE CLINIC, PT ALSO STILL UNABLE TO PROVIDE NAME OF CLINIC AND [facility] WILL FOLLOW UP W/PT'S CLINIC ON SUNDAY. [facility] ALSO HAD ADDITIONAL CONCERNS WELL. PER HOSPITALIST PT HAD A PANIC ATTACK IN IR AND THEY WERE UNABLE TO PLACE SO PT WILL BE INPT AT LEAST UNTIL SUNDAY IF NOT LONGER. Addendum entered by Adelina Stein RN 09/29/22 14:08: CM ATTEMPTED TO MEET W/PT HOWEVER PT OFF UNIT FOR MIDLINE PLACEMENT. Addendum entered by Adelina Stein RN 09/29/22 13:57: PER HOSPITALIST PT HAS METHADONE FOR PAIN MANAGEMENT AND REQUESTING CM SET UP PT FOR HOME W/IV ABX. Original Note: EMR REVIEWED, PT W/ECOLI BACTEREMIA AND UTI ON METHADONE WILL NEED 2 WKS IV ERTAPENEM 1GM DAILY, CM WILL MEET W/PT TO DISCUSS PLAN, REFERRAL SENT [facility] TAKE [facility]ETHADONE. CM WILL CONT TO FOLLOW D/C NEEDS.
[2022-09-29] MEDS: oxyCODONE HCl Immed Release 5 MG TABLET PO ×2 (13:24→20:52)
--- NOTE | 2022-09-29 14:55 | HO.MIDLINE ---
Midline Insertion MIDLINE INSERTION ATTEMPT Technique: Using sterile technique including cap and mask, glove and drape, the arm was prepped and draped in the usual sterile fashion of full barrier technique with CHG. 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 Patient did not want a second attempt made and stated I don't want anything to do with needles. I'd rather take pills . Patient was returned to her room and Dr Delgado was notified.
[2022-09-29] MEDS: clonazePAM 0.5 MG TABLET PO (17:38)
[2022-09-29 18:44] VITALS: BP 142/79; PULSE 74; RESP 17; TEMP 36.8; O2SAT 98
[2022-09-29] MEDS: Enoxaparin Sodium 40 MG/0.4 ML SYRINGE SUBCUT (20:33)
[2022-09-29] MEDS: Atorvastatin Calcium 10 MG TABLET PO (20:34)
[2022-09-29] MEDS: Nicotine Polacrilex 2 MG GUM BUCCAL (20:52)
--- NOTE | 2022-09-29 21:40 | P.CNID_ITS ---
History of Present Illness Data of Consult Service Date: 09/29/22 Requesting physician: Fabian Delgado Primary Care Provider: Ilya De Leon MD HPI Reason for consult: resistant E coli bacteremia She has had nausea and vomiting for a week. She also had dysuria and has positive urine culture. She has no fever or chills now. Urine ESBL E coli not sensitive to oral agents. Review of Systems Review of Systems: Yes all other systems are reviewed and are negative PMFSH Past Medical History Medical History Hyperlipidemia Migraine Family History Family history: reviewed and not pertinent Social History Social History Household Members: Spouse Housing: Apartment Patient Tobacco Use Status: Former Tobacco user Tobacco use type: Cigarette Cigarette Packs Per Day: 0.5 Cigarettes Per Day: 10 e-Cigarette/Vaping Use: Never Used service: No Meds Allergies Allergy/AdvReac Type Severity Reaction Status Date / Time Penicillins [PENICILLINS] Allergy Mild UNKNOWN Verified 03/08/22 13:03 aspirin [ASPIRIN] Allergy Unknown UNKNOWN Verified 03/08/22 13:03 ibuprofen [IBUPROFEN] Allergy Unknown UNKNOWN Verified 03/08/22 13:03 sumatriptan [From IMITREX] Allergy Unknown UNKNOWN Verified 03/08/22 13:03 From COMPAZINE Allergy Unknown UNKNOWN Uncoded 03/08/22 13:03 From IMITREX Allergy Unknown UNKNOWN Uncoded 03/08/22 13:03 Active Medications: Current Medications Acetaminophen (Acetaminophen 325 Mg Tablet) 650 mg PO Q6H PRN PRN Reason: Pain, Mild (Pain Scale 1-3) Last Admin: 09/29/22 05:05 Dose: 650 mg Atorvastatin Calcium (Atorvastatin Calcium 10 Mg Tablet) 10 mg PO BEDTIME [facility] Last Admin: 09/29/22 20:34 Dose: 10 mg Betamethasone Dipropion Augmented (Betamethasone Dip Aug 0.05% Cr 15 Gm Tube) 1 appl TOPICAL BID PRN PRN Reason: psoriasis Last Admin: 09/28/22 23:30 Dose: 1 appl Clonazepam (Clonazepam 0.5 Mg Tablet) 0.5 mg PO BID PRN PRN Reason: Anxiety Last Admin: 09/29/22 17:38 Dose: 0.5 mg Docusate Sodium (Docusate Sodium 100 Mg Capsule) 100 mg PO DAILY PRN PRN Reason: Constipation Enoxaparin Sodium (Enoxaparin Sodium 40 Mg/0.4 Ml Syringe) 40 mg SUBCUT Q24H [facility] Last Admin: 09/29/22 20:33 Dose: 40 mg Meropenem 1 gm/ Sodium (Chloride) 100 mls @ 200 mls/hr IV Q8H [facility] Last Admin: 09/29/22 20:45 Dose: 200 mls/hr Loratadine (Loratadine 10 Mg Tablet) 10 mg PO DAILY PRN PRN Reason: Allergic Symptoms Methadone HCl (Methadone Hcl 20 Mg/2 Ml Oral.Conc) 109 mg PO DAILY [facility] Last Admin: 09/29/22 08:56 Dose: 109 mg Metoprolol Tartrate (Metoprolol Tartrate 12.5 Mg Halftab) 12.5 mg PO BID [facility]; Protocol Last Admin: 09/29/22 20:34 Dose: 12.5 mg Morphine Sulfate (Morphine Sulfate 4 Mg/Ml Cartridge) 2 mg IVPUSH Q4H PRN; Protocol PRN Reason: Pain, Severe (Pain Scale 7-10) Last Admin: 09/29/22 05:04 Dose: 2 mg Nicotine Polacrilex (Nicotine Polacrilex 2 Mg Gum) 2 mg BUCCAL Q2H PRN PRN Reason: Nicotine Cravings Last Admin: 09/29/22 20:52 Dose: 2 mg Ondansetron HCl (Ondansetron Hcl 4 Mg/2 Ml Vial) 4 mg IVPUSH Q8H PRN PRN Reason: Nausea and Vomiting Oxycodone HCl (Oxycodone Hcl Immed Release 5 Mg Tablet) 5 mg PO Q4H PRN PRN Reason: Pain, Severe (Pain Scale 7-10) Last Admin: 09/29/22 20:52 Dose: 5 mg Pharmacy Consult (Consult Rx Perform Med Rec) 1 each MISCELLANE ONCE PRN PRN Reason: Consult order Prednisone (Prednisone 5 Mg Tablet) 15 mg PO DAILY [facility] Last Admin: 09/29/22 08:55 Dose: 15 mg Sodium Chloride (0.9 % Sodium Chloride Flush 3 Ml Syringe) [address] [facility] Last Admin: 09/29/22 20:33 Dose: 3 ml Vitamin D (Cholecalciferol (Vitamin D3) 25 Mcg Tablet) 25 mcg PO DAILY [facility] Last Admin: 09/29/22 08:56 Dose: 25 mcg Home Medications Medication Instructions Recorded Confirmed Last Taken Type acetaminophen 500 mg tablet 1,000 mg PO Q6H PRN Pain 09/26/22 09/26/22 Unknown History bismuth subsalicylate 525 mg/15 mL 525 mg PO Q30M PRN 09/26/22 09/26/22 09/25/22 History oral suspension (Pepto-Bismol Max diarrhea/indegestion St) cholecalciferol (vitamin D3) 25 25 mcg PO DAILY 09/26/22 09/26/22 09/25/22 History mcg (1,000 unit) capsule (Vitamin D3) clonazepam 0.5 mg tablet 0.5 mg PO BID PRN Anxiety 09/26/22 09/26/22 09/26/22 History halobetasol propionate 0.05 % 1 appl topical BID PRN psoriasis 09/26/22 09/26/22 Unknown History topical ointment ketoconazole 2 % shampoo 1 ea topical [id number] 09/26/22 09/26/22 09/25/22 History loratadine 10 mg tablet 10 mg PO DAILY PRN Allergic 09/26/22 09/26/22 Unknown History Symptoms methadone 10 mg/mL oral concentrate 109 mg PO DAILY 09/26/22 09/27/22 09/26/22 History prednisone 5 mg tablet 15 mg PO DAILY 09/26/22 09/26/22 09/25/22 History simvastatin 20 mg tablet 20 mg PO BEDTIME 09/26/22 09/26/22 09/25/22 History tramadol 50 mg tablet 50 mg PO TID PRN Pain 09/26/22 09/26/22 Unknown History Physical Exam Vital Signs: Vital Signs: Last Vital Signs Temp 98.2 F 09/29/22 18:44 Pulse 74 09/29/22 18:44 Resp 17 09/29/22 18:44 BP 142/79 H 09/29/22 18:44 Pulse Ox 98 09/29/22 18:44 O2 Del Method Room Air 09/29/22 18:44 BMI result Body Mass Index 38.4 Const: General: cooperative HEENT: Head: Yes normal to inspection Face and sinus: Yes normal facial exam Mouth: Normal oral and palatal mucosa present Teeth and gingiva: dentition normal Eyes: General: appearance normal, both eyes and all related structures Pupils: Equal, round and reactive pupils present Resp: Effort & Inspection: normal respiratory effort Cardio: Rate: regular rate Rhythm: regular rhythm GI: Palpation (GI): Soft to palpation and nontender : General: Yes no CVA tenderness Back/Spine/Pelvis: Back: no CVA tenderness Skin: General skin exam: no rashes or lesions noted Neuro: General: moves all extremities Cranial nerves: Yes Equal, round and reactive pupils present Extrem: General: Yes normal to inspection Psych: Appearance: grossly normal Results Labs 09/29/22 06:02 09/29/22 06:02 Labs: Short CBC 09/29/22 Range/Units 06:02 WBC 9.0 (4.8-10.8) X10*3/uL Hgb 14.3 (12.0-16.0) g/dl Hct 42.5 (37.0-47.0) % Plt Count 290 D (160-400) X10*3/uL BMP 09/29/22 06:02 Sodium 143 Potassium 3.0 L Chloride 106 Carbon Dioxide 28 BUN 10 Creatinine 0.62 Calcium 9.6 Microbiology Microbiology Results: Microbiology 09/26/22 Unknown Urine clean catch - Urine heredia top Urine Culture - Final Escherichia coli 09/26/22 16:53 Blood - Venous Blood Culture - Final Escherichia coli 09/26/22 16:44 Blood - Venous Blood Culture - Preliminary No growth after 48 hours. Assessment and Plan (1) Urinary tract infection: Status: Acute (2) Acute pyelonephritis: Status: Acute E coli bacteremia She has immunosuppression with psoriasis. There is no obstruction on CT scan abdomen and pelvis. Plan Ertapenem for 14 days IV. Time Spent With Patient Time: Total time managing care of this patient today ____ minutes.
[2022-09-29 22:35] VITALS: BP 145/78; PULSE 56; RESP 20; TEMP 36.1; O2SAT 97
[2022-09-30 03:16] VITALS: BP 144/81; PULSE 58; RESP 17; TEMP 36.5; O2SAT 96
[2022-09-30] MEDS: Morphine Sulfate 4 MG/ML CARTRIDGE 2 MG IVPUSH (04:14)
[2022-09-30] MEDS: diphenhydrAMINE HCL 50 MG/ML VIAL IVPUSH (05:46)
[2022-09-30 07:31] VITALS: BP 132/77; PULSE 84; RESP 18; TEMP 36.3; O2SAT 96
--- NOTE | 2022-09-30 08:27 | PC.NURSE ---
pt c/o itching after Meropenem, MD Campuzano aware, Benadryl ordered with pt refusing. She later asked for the benadryl which was given, as being injected pt refused whole dose and asked for only half. Pt with diffuse psoriasis, no other rash noted.
--- NOTE | 2022-09-30 09:04 | P.PNIM_ITS ---
Subjective Subjective Date of Service: 09/30/22 Interval History: anxious Physical Exam Vital Signs: Vital Signs: Last Vital Signs Temp 97.3 F 09/30/22 07:31 Pulse 84 09/30/22 07:31 Resp 18 09/30/22 07:31 BP 132/77 09/30/22 07:31 Pulse Ox 96 09/30/22 07:31 O2 Del Method Room Air 09/30/22 07:31 BMI result Body Mass Index 38.4 Const: General: cooperative HEENT: Head: Yes normal to inspection Face and sinus: Yes normal facial exam Mouth: Normal oral and palatal mucosa present Teeth and gingiva: den tition normal Eyes: General: appearance normal, both eyes and all related structures Pupils: Equal, round and reactive pupils present Resp: Effort & Inspection: normal respiratory effort Cardio: Rate: regular rate Rhythm: regular rhythm GI: Palpation (GI): Soft to palpation and nontender : General: Yes no CVA tenderness Back/Spine/Pelvis: Back: no CVA tenderness Skin: General skin exam: no rashes or lesions noted Neuro: General: moves all extremities Cranial nerves: Yes Equal, round and reactive pupils present Extrem: General: Yes normal to inspection Psych: Appearance: grossly normal Objective Data Active Medications Acetaminophen (Acetaminophen 325 Mg Tablet) 650 mg PO Q6H PRN PRN Reason: Pain, Mild (Pain Scale 1-3) Last Admin: 09/29/22 05:05 Dose: 650 mg Documented By: RANDAL Atorvastatin Calcium (Atorvastatin Calcium 10 Mg Tablet) 10 mg PO BEDTIME [facility] Last Admin: 09/29/22 20:34 Dose: 10 mg Documented By: WILLIE Betamethasone Dipropion Augmented (Betamethasone Dip Aug 0.05% Cr 15 Gm Tube) 1 appl TOPICAL BID PRN PRN Reason: psoriasis Last Admin: 09/28/22 23:30 Dose: 1 appl Documented By: RANDAL Clonazepam (Clonazepam 0.5 Mg Tablet) 0.5 mg PO BID PRN PRN Reason: Anxiety Last Admin: 09/29/22 17:38 Dose: 0.5 mg Documented By: GREYSON Docusate Sodium (Docusate Sodium 100 Mg Capsule) 100 mg PO DAILY PRN PRN Reason: Constipation Enoxaparin Sodium (Enoxaparin Sodium 40 Mg/0.4 Ml Syringe) 40 mg SUBCUT Q24H [facility] Last Admin: 09/29/22 20:33 Dose: 40 mg Documented By: WILLIE Meropenem 1 gm/ Sodium (Chloride) 100 mls @ 200 mls/hr IV Q8H [facility] Last Infusion: 09/30/22 04:45 Dose: 0 mls/hr Documented By: WILLIE Loratadine (Loratadine 10 Mg Tablet) 10 mg PO DAILY PRN PRN Reason: Allergic Symptoms Methadone HCl (Methadone Hcl 20 Mg/2 Ml Oral.Conc) 109 mg PO DAILY [facility] Last Admin: 09/29/22 08:56 Dose: 109 mg Documented By: SYLVIA Metoprolol Tartrate (Metoprolol Tartrate 12.5 Mg Halftab) 12.5 mg PO BID [facility]; Protocol Last Admin: 09/29/22 20:34 Dose: 12.5 mg Documented By: WILLIE Morphine Sulfate (Morphine Sulfate 4 Mg/Ml Cartridge) 2 mg IVPUSH Q4H PRN; Protocol PRN Reason: Pain, Severe (Pain Scale 7-10) Last Admin: 09/30/22 04:14 Dose: 2 mg Documented By: WILLIE Nicotine Polacrilex (Nicotine Polacrilex 2 Mg Gum) 2 mg BUCCAL Q2H PRN PRN Reason: Nicotine Cravings Last Admin: 09/29/22 20:52 Dose: 2 mg Documented By: WILLIE Ondansetron HCl (Ondansetron Hcl 4 Mg/2 Ml Vial) 4 mg IVPUSH Q8H PRN PRN Reason: Nausea and Vomiting Oxycodone HCl (Oxycodone Hcl Immed Release 5 Mg Tablet) 5 mg PO Q4H PRN PRN Reason: Pain, Severe (Pain Scale 7-10) Last Admin: 09/29/22 20:52 Dose: 5 mg Documented By: WILLIE Pharmacy Consult (Consult Rx Perform Med Rec) 1 each MISCELLANE ONCE PRN PRN Reason: Consult order Prednisone (Prednisone 5 Mg Tablet) 15 mg PO DAILY [facility] Last Admin: 09/29/22 08:55 Dose: 15 mg Documented By: SYLVIA Sodium Chloride (0.9 % Sodium Chloride Flush 3 Ml Syringe) 3 ml IVFLUSH QSHIFT [facility] Last Admin: 07/21/23 20:33 Dose: 3 ml Documented By: WILLIE Vitamin D (Cholecalciferol (Vitamin D3) 25 Mcg Tablet) 25 mcg PO DAILY [facility] Last Admin: 09/29/22 08:56 Dose: 25 mcg Documented By: SYLVIA Labs 09/29/22 06:02 09/29/22 06:02 Microbiology Microbiology Results: Microbiology 09/26/22 Unknown Urine Culture - Final Urine clean catch - Urine heredia top Escherichia coli 09/26/22 16:53 Blood Culture - Final Blood - Venous Escherichia coli Assessment and Plan (1) Acute pyelonephritis: Status: Acute Plan 57F PMH HLD, migraines, psoriasis, obesity, presented with back pain found to have sepsis and afib with rvr sepsis due to acute pyelonephritis complicated by esbl ecoli bacteremia change to merem, plan for midline and 14 days ertapenem new onset afib with rvr converted to sinus likely due to above continue meroprolol unlikely to benefit from anticoagulation pulm nodule chest ct in 3-6 months hld statin obesity weight loss smoking cessation DVT prophylaxis-Lovenox Full code reason for continued hospitalization:needs midline and home abx set up Time Spent With Patient Time: Total time managing care of this patient today ____ minutes. Quality Stroke Does the patient have a stroke diagnosis?: No VTE Prior VTE?: No VTE Risk Level:: Medical - moderate - high VTE Device Contraindication: Treatment Not Indicated VTE Drug Contraindication: N/A - Med Ordered
[2022-09-30] MEDS: methADONE HCl 20 MG/2 ML ORAL.CONC 109 MG PO (09:07)
[2022-09-30] MEDS: Metoprolol Tartrate 12.5 MG HALFTAB PO (09:08)
[2022-09-30] MEDS: Cholecalciferol (Vitamin D3) 25 MCG TABLET PO (09:09)
[2022-09-30] MEDS: predniSONE 5 MG TABLET 15 MG PO (09:09)
[2022-09-30] MEDS: clonazePAM 0.5 MG TABLET PO ×2 (09:09→20:57)
[2022-09-30] MEDS: 0.9 % Sodium Chloride Flush 3 ML SYRINGE IVFLUSH ×2 (09:09→20:57)
[2022-09-30 11:27] VITALS: BP 120/66; PULSE 66; RESP 18; TEMP 36.2; O2SAT 92
[2022-09-30] MEDS: oxyCODONE HCl Immed Release 5 MG TABLET PO (15:13)
[2022-09-30 15:24] VITALS: BP 126/99; PULSE 63; RESP 14; TEMP 36.1; O2SAT 97
[2022-09-30 19:14] VITALS: BP 131/71; PULSE 64; RESP 20; TEMP 36.1; O2SAT 97
[2022-09-30] MEDS: Enoxaparin Sodium 40 MG/0.4 ML SYRINGE SUBCUT (20:57)
[2022-09-30] MEDS: Atorvastatin Calcium 10 MG TABLET PO (20:57)
[2022-10-01] VITALS (7 sets, daily range): BP systolic 130–140; BP diastolic 72–94; PULSE 50–83; RESP 16–20; TEMP 36.1–36.6; O2SAT 95–98
[2022-10-01] MEDS: oxyCODONE HCl Immed Release 5 MG TABLET PO ×3 (00:37→17:41)
[2022-10-01] MEDS: Acetaminophen 325 MG TABLET 650 MG PO (00:37)
[2022-10-01] MEDS: Betamethasone Dip Aug 0.05% Cr 15 GM TUBE 1 APPL TOPICAL (00:46)
[2022-10-01] MEDS: diphenhydrAMINE HCL 50 MG/ML VIAL IVPUSH (02:46)
[2022-10-01] MEDS: predniSONE 5 MG TABLET 15 MG PO (09:08)
[2022-10-01] MEDS: Cholecalciferol (Vitamin D3) 25 MCG TABLET PO (09:09)
[2022-10-01] MEDS: methADONE HCl 20 MG/2 ML ORAL.CONC 109 MG PO (09:09)
[2022-10-01] MEDS: 0.9 % Sodium Chloride Flush 3 ML SYRINGE IVFLUSH (09:09)
[2022-10-01] MEDS: Metoprolol Tartrate 12.5 MG HALFTAB PO ×2 (09:09→21:15)
--- NOTE | 2022-10-01 09:17 | HO.PM.IMPN ---
Subjective Subjective Date of Service: 10/01/22 Interval History: anxious Review of Systems General: No fevers, malaise, unintentional weight loss. +generalized weakness, +fatigue HEENT: No blurred vision, diplopia. No sore throat, nasal congestion, rhinorrhea, sinus pain, ear pain Cardiovascular: +palpitations. No chest pain or leg edema Respiratory: +sob. No orthopnea, PND, wheezing, cough GI: No abdominal pain, nausea, vomiting, diarrhea, constipation, melena, hematochezia : +dysuria, +increased frequency, +urgency. No hematuria, decreased urinary output MSK: No myalgia. +b/l low back pain Neuro: No headaches, weakness, paresthesias Skin: +diffuse rash Physical Exam Vital Signs: Vital Signs: Last Vital Signs Temp 97.0 F 10/01/22 07:23 Pulse 83 10/01/22 07:23 Resp 20 10/01/22 07:23 BP 138/80 10/01/22 07:23 Pulse Ox 95 10/01/22 07:23 O2 Del Method Room Air 10/01/22 07:23 BMI result Body Mass Index 38.4 Const: Other: Appearance: Alert. Oriented X3. Seems tired Eyes: Pupils equal, round and reactive to light. ENT: Pharynx normal. Neck: Normal inspection. Neck supple. No lymph nodes noted. No crepitus CVS: Heart rate irregularly irregular, heart rate between 160 and 180 Pulses normal. Normal S1 and S2 Respiratory: No respiratory distress. Breath sounds normal. No Wheezing. No rales Abdomen: Soft and nontender. No rigidity. No distention. Skin: Skin warm and dry. Normal skin color. Normal skin turgor. Extremities: No lower extremity edema. No Lacerations. No Rash Neuro: Oriented X 3. No motor deficit. No sensory deficit. Moving all extremities. No slurred speech. CN 2 through 12 grossly intact Psych: calm, cooperative, normal affect General: cooperative HEENT: Head: Yes normal to inspection Face and sinus: Yes normal facial exam Mouth: Normal oral and palatal mucosa present Teeth and gingiva: dentition normal Eyes: General: appearance normal, both eyes and all related structures Pupils: Equal, round and reactive pupils present Resp: Effort & Inspection: normal respiratory effort Cardio: Rate: regular rate Rhythm: regular rhythm GI: Palpation (GI): Soft to palpation and nontender : General: Yes no CVA tenderness Back/Spine/Pelvis: Back: no CVA tenderness Skin: General skin exam: no rashes or lesions noted Neuro: General: moves all extremities Cranial nerves: Yes Equal, round and reactive pupils present Extrem: General: Yes normal to inspection Psych: Appearance: grossly normal Objective Data Active Medications Acetaminophen (Acetaminophen 325 Mg Tablet) 650 mg PO Q6H PRN PRN Reason: Pain, Mild (Pain Scale 1-3) Last Admin: 10/01/22 00:37 Dose: 650 mg Documented By: CATHLEEN Atorvastatin Calcium (Atorvastatin Calcium 10 Mg Tablet) 10 mg PO BEDTIME [facility] Last Admin: 09/30/22 20:57 Dose: 10 mg Documented By: CATHLEEN Betamethasone Dipropion Augmented (Betamethasone Dip Aug 0.05% Cr 15 Gm Tube) 1 appl TOPICAL BID PRN PRN Reason: psoriasis Last Admin: 10/01/22 00:46 Dose: 1 appl Documented By: CATHLEEN Clonazepam (Clonazepam 0.5 Mg Tablet) 0.5 mg PO BID PRN PRN Reason: Anxiety Last Admin: 09/30/22 20:57 Dose: 0.5 mg Documented By: CATHLEEN Docusate Sodium (Docusate Sodium 100 Mg Capsule) 100 mg PO DAILY PRN PRN Reason: Constipation Enoxaparin Sodium (Enoxaparin Sodium 40 Mg/0.4 Ml Syringe) 40 mg SUBCUT Q24H [facility] Last Admin: 09/30/22 20:57 Dose: 40 mg Documented By: CATHLEEN Meropenem 1 gm/ Sodium (Chloride) 100 mls @ 200 mls/hr IV Q8H [facility] Last Infusion: 10/01/22 05:17 Dose: 0 mls/hr Documented By: CATHLEEN Loratadine (Loratadine 10 Mg Tablet) 10 mg PO DAILY PRN PRN Reason: Allergic Symptoms Methadone HCl (Methadone Hcl 20 Mg/2 Ml Oral.Conc) 109 mg PO DAILY [facility] Last Admin: 10/01/22 09:09 Dose: 109 mg Documented By: SYLVIA Metoprolol Tartrate (Metoprolol Tartrate 12.5 Mg Halftab) 12.5 mg PO BID [facility]; Protocol Last Admin: 10/01/22 09:09 Dose: 12.5 mg Documented By: SYLVIA Morphine Sulfate (Morphine Sulfate 4 Mg/Ml Cartridge) 2 mg IVPUSH Q4H PRN; Protocol PRN Reason: Pain, Severe (Pain Scale 7-10) Last Admin: 09/30/22 04:14 Dose: 2 mg Documented By: WILLIE Nicotine Polacrilex (Nicotine Polacrilex 2 Mg Gum) 2 mg BUCCAL Q2H PRN PRN Reason: Nicotine Cravings Last Admin: 09/29/22 20:52 Dose: 2 mg Documented By: WILLIE Ondansetron HCl (Ondansetron Hcl 4 Mg/2 Ml Vial) 4 mg IVPUSH Q8H PRN PRN Reason: Nausea and Vomiting Oxycodone HCl (Oxycodone Hcl Immed Release 5 Mg Tablet) 5 mg PO Q4H PRN PRN Reason: Pain, Severe (Pain Scale 7-10) Last Admin: 10/01/22 06:10 Dose: 5 mg Documented By: CATHLEEN Pharmacy Consult (Consult Rx Perform Med Rec) 1 each MISCELLANE ONCE PRN PRN Reason: Consult order Prednisone (Prednisone 5 Mg Tablet) 15 mg PO DAILY [facility] Last Admin: 10/01/22 09:08 Dose: 15 mg Documented By: SYLVIA Sodium Chloride (0.9 % Sodium Chloride Flush 3 Ml Syringe) [facility] Last Admin: 10/01/22 09:09 Dose: 3 ml Documented By: SYLVIA Vitamin D (Cholecalciferol (Vitamin D3) 25 Mcg Tablet) 25 mcg PO DAILY [facility] Last Admin: 10/01/22 09:09 Dose: 25 mcg Documented By: SYLVIA Labs 09/29/22 06:02 09/29/22 06:02 Assessment and Plan (1) Acute pyelonephritis: Status: Acute Plan 57F PMH HLD, migraines, psoriasis, obesity, presented with back pain found to have sepsis and afib with rvr sepsis due to acute pyelonephritis complicated by esbl ecoli bacteremia change to merem, plan for midline and 14 days ertapenem new onset afib with rvr converted to sinus likely due to above continue meroprolol unlikely to benefit from anticoagulation pulm nodule chest ct in 3-6 months hld statin obesity weight loss smoking cessation DVT prophylaxis-Lovenox Full code reason for continued hospitalization:needs midline and home abx set up Time Spent With Patient Time: Total time managing care of this patient today ____ minutes. Quality Stroke Does the patient have a stroke diagnosis?: No VTE Prior VTE?: No VTE Risk Level:: Medical - moderate - high VTE Device Contraindication: Treatment Not Indicated VTE Drug Contraindication: N/A - Med Ordered
[2022-10-01] MEDS: clonazePAM 0.5 MG TABLET PO (15:55)
[2022-10-01] MEDS: Atorvastatin Calcium 10 MG TABLET PO (21:15)
[2022-10-01] MEDS: Morphine Sulfate 4 MG/ML CARTRIDGE 2 MG IVPUSH (21:21)
[2022-10-02] VITALS (7 sets, daily range): BP systolic 119–174; BP diastolic 61–89; PULSE 51–68; RESP 18–20; TEMP 36–37; O2SAT 95–98
[2022-10-02] MEDS: 0.9 % Sodium Chloride Flush 3 ML SYRINGE IVFLUSH ×3 (00:31→17:08)
[2022-10-02] MEDS: diphenhydrAMINE HCL 50 MG/ML VIAL IVPUSH (00:31)
--- NOTE | 2022-10-02 00:55 | PC.NURSE ---
Pt c/o itch all over has psoriasi asking for benadryl notified ordered benadryl 50mg iv X 1 dose given at 0030.
[2022-10-02] MEDS: oxyCODONE HCl Immed Release 5 MG TABLET PO ×2 (03:22→22:20)
[2022-10-02] MEDS: Acetaminophen 325 MG TABLET 650 MG PO (06:15)
[2022-10-02] MEDS: Metoprolol Tartrate 12.5 MG HALFTAB PO ×2 (08:11→20:24)
[2022-10-02] MEDS: predniSONE 5 MG TABLET 15 MG PO (08:11)
[2022-10-02] MEDS: Cholecalciferol (Vitamin D3) 25 MCG TABLET PO (08:11)
[2022-10-02] MEDS: methADONE HCl 20 MG/2 ML ORAL.CONC 109 MG PO (08:12)
--- NOTE | 2022-10-02 08:37 | HO.PM.IMPN ---
Subjective Subjective Date of Service: 10/02/22 Interval History: anxious Physical Exam Vital Signs: Vital Signs: Last Vital Signs Temp 97.3 F 10/02/22 07:54 Pulse 62 10/02/22 07:54 Resp 20 10/02/22 07:54 BP 142/74 H 10/02/22 07:54 Pulse Ox 96 10/02/22 07:54 O2 Del Method Room Air 10/02/22 07:54 BMI result Body Mass Index 38.4 Const: Other: Appearance: Alert. Oriented X3. Seems tired Eyes: Pupils equal, round and reactive to light. ENT: Pharynx normal. Neck: Normal inspection. Neck supple. No lymph nodes noted. No crepitus CVS: Heart rate irregularly irregular, heart rate between 160 and 180 Pulses normal. Normal S1 and S2 Respiratory: No respiratory distress. Breath sounds normal. No Wheezing. No rales Abdomen: Soft and nontender. No rigidity. No distention. Skin: Skin warm and dry. Normal skin color. Normal skin turgor. Extremities: No lower extremity edema. No Lacerations. No Rash Neuro: Oriented X 3. No motor deficit. No sensory deficit. Moving all extremities. No slurred speech. CN 2 through 12 grossly intact Psych: calm, cooperative, normal affect General: cooperative HEENT: Head: Yes normal to inspection Face and sinus: Yes normal facial exam Mouth: Normal oral and palatal mucosa present Teeth and gingiva: dentition normal Eyes: General: appearance normal, both eyes and all related structures Pupils: Equal, round and reactive pupils present Resp: Effort & Inspection: normal respiratory effort Cardio: Rate: regular rate Rhythm: regular rhythm GI: Palpation (GI): Soft to palpation and nontender : General: Yes no CVA tenderness Back/Spine/Pelvis: Back: no CVA tenderness Skin: General skin exam: no rashes or lesions noted Neuro: General: moves all extremities Cranial nerves: Yes Equal, round and reactive pupils present Extrem: General: Yes normal to inspection Psych: Appearance: grossly normal Objective Data Active Medications Acetaminophen (Acetaminophen 325 Mg Tablet) 650 mg PO Q6H PRN PRN Reason: Pain, Mild (Pain Scale 1-3) Last Admin: 10/02/22 06:15 Dose: 650 mg Documented By: BRENDA Atorvastatin Calcium (Atorvastatin Calcium 10 Mg Tablet) 10 mg PO BEDTIME [facility] Last Admin: 10/01/22 21:15 Dose: 10 mg Documented By: KELLEN Betamethasone Dipropion Augmented (Betamethasone Dip Aug 0.05% Cr 15 Gm Tube) 1 appl TOPICAL BID PRN PRN Reason: psoriasis Last Admin: 10/01/22 00:46 Dose: 1 appl Documented By: CATHLEEN Docusate Sodium (Docusate Sodium 100 Mg Capsule) 100 mg PO DAILY PRN PRN Reason: Constipation Enoxaparin Sodium (Enoxaparin Sodium 40 Mg/0.4 Ml Syringe) 40 mg SUBCUT Q24H [facility] Last Admin: 10/01/22 21:37 Dose: Not Given Documented By: KELLEN Non-Admin Reason: Patient Refused Meropenem 1 gm/ Sodium (Chloride) 100 mls @ 200 mls/hr IV Q8H [facility] Last Infusion: 10/02/22 05:29 Dose: 0 mls/hr Documented By: BRENDA Loratadine (Loratadine 10 Mg Tablet) 10 mg PO DAILY PRN PRN Reason: Allergic Symptoms Lorazepam (Lorazepam 2 Mg/Ml Vial) 2 mg IVPUSH ONCE PRN PRN Reason: midline placement Methadone HCl (Methadone Hcl 20 Mg/2 Ml Oral.Conc) 109 mg PO DAILY [facility] Last Admin: 10/02/22 08:12 Dose: 109 mg Documented By: ZOILA Metoprolol Tartrate (Metoprolol Tartrate 12.5 Mg Halftab) 12.5 mg PO BID [facility]; Protocol Last Admin: 10/02/22 08:11 Dose: 12.5 mg Documented By: ZOILA Morphine Sulfate (Morphine Sulfate 4 Mg/Ml Cartridge) 2 mg IVPUSH Q4H PRN; Protocol PRN Reason: Pain, Severe (Pain Scale 7-10) Last Admin: 10/01/22 21:21 Dose: 2 mg Documented By: KELLEN Nicotine Polacrilex (Nicotine Polacrilex 2 Mg Gum) 2 mg BUCCAL Q2H PRN PRN Reason: Nicotine Cravings Last Admin: 09/29/22 20:52 Dose: 2 mg Documented By: WILLIE Ondansetron HCl (Ondansetron Hcl 4 Mg/2 Ml Vial) 4 mg IVPUSH Q8H PRN PRN Reason: Nausea and Vomiting Oxycodone HCl (Oxycodone Hcl Immed Release 5 Mg Tablet) 5 mg PO Q4H PRN PRN Reason: Pain, Severe (Pain Scale 7-10) Last Admin: 10/02/22 03:22 Dose: 5 mg Documented By: BRENDA Pharmacy Consult (Consult Rx Perform Med Rec) 1 each MISCELLANE ONCE PRN PRN Reason: Consult order Prednisone (Prednisone 5 Mg Tablet) 15 mg PO DAILY [facility] Last Admin: 10/02/22 08:11 Dose: 15 mg Documented By: ZOILA Sodium Chloride (0.9 % Sodium Chloride Flush 3 Ml Syringe) 3 ml IVFLUSH QSHIFT [facility] Last Admin: 10/02/22 08:15 Dose: 3 ml Documented By: ZOILA Vitamin D (Cholecalciferol (Vitamin D3) 25 Mcg Tablet) 25 mcg PO DAILY [facility] Last Admin: 10/02/22 08:11 Dose: 25 mcg Documented By: ZOILA Labs 09/29/22 06:02 09/29/22 06:02 Microbiology Microbiology Results: Microbiology 09/26/22 16:44 Blood Culture - Final Blood - Venous No growth after 5 days. Assessment and Plan (1) Acute pyelonephritis: Status: Acute Plan 57F PMH HLD, migraines, psoriasis, obesity, presented with back pain found to have sepsis and afib with rvr sepsis due to acute pyelonephritis complicated by esbl ecoli bacteremia change to merem, plan for midline and 14 days ertapenem new onset afib with rvr converted to sinus likely due to above continue meroprolol unlikely to benefit from anticoagulation pulm nodule chest ct in 3-6 months hld statin obesity weight loss smoking cessation DVT prophylaxis-Lovenox Full code reason for continued hospitalization:needs midline and home abx set up Time Spent With Patient Time: Total time managing care of this patient today ____ minutes. Quality Stroke Does the patient have a stroke diagnosis?: No VTE Prior VTE?: No VTE Risk Level:: Medical - moderate - high VTE Device Contraindication: Treatment Not Indicated VTE Drug Contraindication: N/A - Med Ordered
[2022-10-02] MEDS: LORazepam 2 MG/ML VIAL IVPUSH (08:38)
--- NOTE | 2022-10-02 10:30 | MHC.CM.PN ---
Addendum entered by Adelina Stein RN 10/02/22 11:28: CLARIFICATION PLAN WAS FOR MIDLINE TO BE PLACED HOWEVER IR UNABLE TO D/T CLOTTING PER PT, PT BACK ON UNIT AND CM WILL MEET W/HER TO SIGN RELEASE OF INFO FOR [facility]. Original Note: EMR REVIEWED, CM RECEIVED MESSAGE FROM [facility] REGARDING PLAN AND IF PICC LINE PLACED, [facility] THEN AS[facility] IF [facility], CM ATTEMPTED TO CONTACT [facility] AT 10:15AM [phone], [facility] ANTICIPATED REQUESTING RELEASE OF INFO BE FAXED TO [phone] PRIOR TO RELEASING ANY INFO. PT IN IR FOR MIDLINE PLACEMENT AND CM WILL FOLLOW UP W/PT WHEN SHE RETURNS TO UNIT.
--- NOTE | 2022-10-02 11:25 | PC.NURSE ---
ABORTED Midline placement--Left basilic and Left brachial veins were accessed multiple times by Saleem Richardson RN and Reyna Taveras RN, but unable to advance guidewire for Midline placement. Patient then stated she didn't want anyone to try anymore. Pt was returned to her room and Dr Delgado was notified.
[2022-10-02] MEDS: Nicotine Polacrilex 2 MG GUM BUCCAL (13:11)
[2022-10-02] MEDS: clonazePAM 0.5 MG TABLET PO (13:13)
[2022-10-02] MEDS: Morphine Sulfate 4 MG/ML CARTRIDGE 2 MG IVPUSH (19:00)
[2022-10-02] MEDS: Atorvastatin Calcium 10 MG TABLET PO (20:24)
[2022-10-02] MEDS: diphenhydrAMINE HCL 25 MG CAPSULE PO (22:21)
[2022-10-03] MEDS: oxyCODONE HCl Immed Release 5 MG TABLET PO ×3 (01:59→19:48)
[2022-10-03] MEDS: clonazePAM 0.5 MG TABLET PO ×2 (01:59→14:13)
[2022-10-03 02:59] VITALS: BP 134/79; PULSE 62; RESP 20; TEMP 36.1; O2SAT 94
[2022-10-03] MEDS: Morphine Sulfate 4 MG/ML CARTRIDGE 2 MG IVPUSH ×2 (05:06→23:58)
[2022-10-03 07:20] VITALS: BP 156/77; PULSE 60; RESP 20; TEMP 36.4; O2SAT 100
[2022-10-03] MEDS: methADONE HCl 20 MG/2 ML ORAL.CONC 109 MG PO (08:52)
[2022-10-03] MEDS: predniSONE 5 MG TABLET 15 MG PO (08:54)
[2022-10-03] MEDS: Cholecalciferol (Vitamin D3) 25 MCG TABLET PO (08:55)
[2022-10-03] MEDS: 0.9 % Sodium Chloride Flush 3 ML SYRINGE IVFLUSH ×3 (08:55→19:38)
[2022-10-03] MEDS: Metoprolol Tartrate 12.5 MG HALFTAB PO ×2 (08:55→19:38)
[2022-10-03] MEDS: Nicotine Polacrilex 2 MG GUM BUCCAL ×2 (10:46→19:38)
--- NOTE | 2022-10-03 11:04 | MHC.CM.PN ---
Addendum entered by Adelina Stein RN 10/03/22 14:18: [facility] OFFERING PT A BED PENDING GUEST DOSING BE SET UP AT [facility], CM CONTACT [facility] [phone] AT [facility] WHO INSTRUCTED CM TO CONTACT [facility] AT [phone] SINCE HE WAS NOT IN OFFICE, [facility] TO FAX RELEASES TO . Addendum entered by Adelina Stein RN 10/03/22 13:50: CM RECEIVED CALL FROM [facility] WHO REPORT THEY DID RECEIVE CONSENT FORM FROM THIS , [facility] CONFIRMED PT HAS BEEN A CLIENT FOR 7 YRS AND HAS BEEN CONSISTENT W/TX HOWEVER IS CONSISTENTLY POSITIVE FOR OPIATES AND OXYCODONE WHICH SHE IS NOT ON AT HOME, LAST DRUG SCREEN 08/10/22, INFO RELAYED TO [facility] WHO DISCUSSED W/THEIR PHARMACIST AND THEY ARE NOW UNABLE TO PROVIDE SERVICES FOR PT THEY ALREADY HAD CONCERNS REGARDING HER HIGH DAILY DOSE OF METHADONE, CM HAS UPDATED SNF REFERRAL AND RESENT TO [facility] THE OTHER SNF IN AREA IS NOT CONTRACTED W/PT'S INSURANCE. Original Note: EMR REVIEWED, PT HAS YET TO HAVE MIDLINE PLACED, BEDSIDE TEACH W/PT & YESTERDAY 10/02/22 W/[facility] THAT WENT WELL. UNSURE IF IR WILL RE-ATTEMPT AGAIN TODAY, CM WILL CONT TO FOLLOW D/C NEEDS.
--- NOTE | 2022-10-03 11:42 | P.DS_ITS ---
DS: Providers Provider Date of Service: 10/03/22 Date of admission: 09/26/22 19:24 Primary care physician: Ilya De Leon MD Consults: 09/26/22 19:23 Consult to Cardiology Routine Consulting Provider: [facility] [place] Reason for consultation: new onset afib rvr 09/29/22 08:52 Consult to Infectious Diseases Routine Consulting Provider: [facility] [place] [facility] Reason for consultation: septic esbl ecoli DS: Diagnosis Discharge Diagnosis (1) Acute pyelonephritis: Status: Acute DS: Summary Hospital Course Hospital Course: from initial hpi: 57-year-old female with history of hyperlipidemia, migraines, and psoriasis who is a current 0.5 PPD smoker presents to the ED earlier today with her for evaluation of fatigue and weakness ongoing for several days.? She states that she has also been experiencing dysuria, increased urinary frequency, and urgency for the last 2 weeks though did experience a brief reprieve of symptoms with pyridium.? In the last few days she has also been experiencing nausea and vomiting and significant bilateral low back pain.? She has been experiencing palpitations and intermittent shortness of breath with increased anxiety but denies any orthopnea, PND, bilateral lower extremity edema, lightheadedness, or chest pain.? Denies history of similar symptoms.? She is a current 0.5 pack cigarette per day smoker but denies any illicit drug use or alcohol use. On arrival, patient found to be tachycardic to 172 without any hypotension.? At that time, she was mildly tachypneic to 22 and afebrile.? However patient did develop fever of 101.4 while in the ED. EKG showed atrial fibrillation with RVR, rate 155 with T-wave inversions noted in I and II, but no LISA or depression.? There is a leukocytosis of 13.4.? Renal function normal, electrolyte levels normal.? Lactic acid 1.6.? Hepatic function normal.? Troponin below detectable limits.? BNP 172.? TSH 1.47.? UA with 3+ leukocytes, negative nitrites, 2+ blood, 2+ protein, positive urinary sediment, and 1+ bacteria.? Chest x-ray showing diffuse interstitial thickening possibly related to pulmonary edema or atypical infectious versus inflammatory process.? There is also evidence of healing changes secondary to rib fractures on the right side her cannot exclude pulmonary nodule and outpatient CT recommended in 3-6 months.? In the ED, given 20 mg IV push diltiazem with minimal improvement in heart rate and patient was started on Cardizem drip.? She was also given 2 L IV NS bolus, 1 g IV ceftriaxone, and Tylenol with improvement of fever. hospital course: patient was admitted for sepsis due to acute pyelonephritis complicated by ESBL ecoli bacteremia. initiatally treated with rocephin, then changed to merem after cultures came back. sepsis resolved. will be discharged home on ertapenem to complete 14 days course via picc. on presentation patient had new onset afib with rvr. she spontaneously converted to NSR. started on metoprolol. likely this is lone afib from sepsis, was seen by cardio who felt patient would not benefit from anticoagulation at this time. for pulm nodule incidently seen, ct chest in 3 months is recommended. for hld was on statin. for obesity weight loss recommended. patient is feeling better and will be discharged home. Time Spent with Patient Time attestation: Total time managing care of this patient today ____ minutes. Discharge coordination time: Greater than 30 minutes Quality: Safe Use of Opioids Does Pt have an Active Cancer Diagnosis on the Problem List?: No Quality: Stroke Does the patient have a stroke diagnosis?: No Physical Exam Vital Signs: Vital Signs: Last Vital Signs Temp 97.5 F 10/03/22 07:20 Pulse 60 10/03/22 07:20 Resp 20 10/03/22 07:20 BP 156/77 H 10/03/22 07:20 Pulse Ox 100 10/03/22 07:20 O2 Del Method Room Air 10/03/22 07:20 BMI result Body Mass Index 38.4 General: AO X 3, no acute distress Resp: CTA bilateral, no accessory muscles used CVS: S1,S2,RRR GI: soft, non tender, non distended Neuro: motor grossly intact, alert Psych: appropriate affect, appropriate insight Discharge Plan Discharge Anticipated Discharge Date/Time: 10/03/22 11:35 Patient Disposition: Home Health Service Discharge Diagnosis: sepsis uti, afib, esbl ecoli Referrals: Eliane Coates MD [Physician] - 1 Week Ilya De Leon MD [Primary Care Provider] - 1 Week Discharge Medications: New metoprolol tartrate 25 mg tablet 12.5 mg PO BID Qty: 30 0RF ertapenem 1 gram recon soln 1 g IV DAILY Qty: 9 0RF Continued ketoconazole 2 % shampoo 1 ea topical [id number] clonazepam 0.5 mg tablet 0.5 mg PO BID PRN (Reason: Anxiety) prednisone 5 mg tablet 15 mg PO DAILY tramadol 50 mg tablet 50 mg PO TID PRN (Reason: Pain) simvastatin 20 mg tablet 20 mg PO BEDTIME halobetasol propionate 0.05 % ointment 1 appl topical BID PRN (Reason: psoriasis) loratadine 10 mg tablet 10 mg PO DAILY PRN (Reason: Allergic Symptoms) cholecalciferol (vitamin D3) [Vitamin D3] 25 mcg (1,000 unit) capsule 25 mcg PO DAILY acetaminophen 500 mg Tablet 1,000 mg PO Q6H PRN (Reason: Pain) Pepto-Bismol Max St 525 mg/15 mL Suspension 525 mg PO Q30M PRN (Reason: diarrhea/indegestion) Rx Instructions: do not exceed 8 doses in a 24 hour period methadone 10 mg/mL Concentrate 109 mg PO DAILY Diet: Advance to usual diet Activity on Discharge: As tolerated Stand Alone Forms: Patient Portal Discharge page Care Plan Goals: recovery Health Concerns: uti Plan of Treatment: 9 more days ertapenem Assessment: see above
--- NOTE | 2022-10-03 11:48 | P.F2F_ITS ---
Service Date Service Date: 10/03/22 Encounter Date of encounter: 10/03/22 Reasons for Services Signs and symptoms assessed: weakness post hospital stay Reason for nursing home: medication treatment (ertapenem 1gm iv daily via picc, for 9 days) Homebound: Leaving the home is medically contraindicated at this time without the asist of a device and/or another person due th the listed conditions above and below. Reason homebound: unsteady gait / fall risk Certification: Based on the above findings, I certify that this patient is confined to the home and needs intermittent nursing home care, physical therapy and/or speech therapy, or continues to need occupational therapy. The patient is under my care, and I have initiated the establishment of the plan of care. The patient will be followed by a physician who will periodically review the plan of care. Time Spent With Patient Time: Total time managing care of this patient today ____ minutes.
[2022-10-03 12:00] VITALS: BP 121/67; PULSE 65; RESP 20; TEMP 36.2; O2SAT 97
[2022-10-03] MEDS: Ertapenem Sodium 1 GM in 0.9 % Sodium Chloride 50 ML IV (12:20)
--- NOTE | 2022-10-03 13:15 | HO.PM.IMPN ---
Subjective Subjective Date of Service: 10/03/22 Interval History: anxious Physical Exam Vital Signs: Vital Signs: Last Vital Signs Temp 97.1 F 10/03/22 12:00 Pulse 65 10/03/22 12:00 Resp 20 10/03/22 12:00 BP 121/67 10/03/22 12:00 Pulse Ox 97 10/03/22 12:00 O2 Del Method Room Air 10/03/22 12:00 BMI result Body Mass Index 38.4 Const: Other: Appearance: Alert. Oriented X3. Seems tired Eyes: Pupils equal, round and reactive to light. ENT: Pharynx normal. Neck: Normal inspection. Neck supple. No lymph nodes noted. No crepitus CVS: Heart rate irregularly irregular, heart rate between 160 and 180 Pulses normal. Normal S1 and S2 Respiratory: No respiratory distress. Breath sounds normal. No Wheezing. No rales Abdomen: Soft and nontender. No rigidity. No distention. Skin: Skin warm and dry. Normal skin color. Normal skin turgor. Extremities: No lower extremity edema. No Lacerations. No Rash Neuro: Oriented X 3. No motor deficit. No sensory deficit. Moving all extremities. No slurred speech. CN 2 through 12 grossly intact Psych: calm, cooperative, normal affect General: cooperative HEENT: Head: Yes normal to inspection Face and sinus: Yes normal facial exam Mouth: Normal oral and palatal mucosa present Teeth and gingiva: dentition normal Eyes: General: appearance normal, both eyes and all related structures Pupils: Equal, round and reactive pupils present Resp: Effort & Inspection: normal respiratory effort Cardio: Rate: regular rate Rhythm: regular rhythm GI: Palpation (GI): Soft to palpation and nontender : General: Yes no CVA tenderness Back/Spine/Pelvis: Back: no CVA tenderness Skin: General skin exam: no rashes or lesions noted Neuro: General: moves all extremities Cranial nerves: Yes Equal, round and reactive pupils present Extrem: General: Yes normal to inspection Psych: Appearance: grossly normal Objective Data Active Medications Acetaminophen (Acetaminophen 325 Mg Tablet) 650 mg PO Q6H PRN PRN Reason: Pain, Mild (Pain Scale 1-3) Last Admin: 10/02/22 06:15 Dose: 650 mg Documented By: BRENDA Atorvastatin Calcium (Atorvastatin Calcium 10 Mg Tablet) 10 mg PO BEDTIME [facility] Last Admin: 10/02/22 20:24 Dose: 10 mg Documented By: VERA Betamethasone Dipropion Augmented (Betamethasone Dip Aug 0.05% Cr 15 Gm Tube) 1 appl TOPICAL BID PRN PRN Reason: psoriasis Last Admin: 10/01/22 00:46 Dose: 1 appl Documented By: CATHLEEN Clonazepam (Clonazepam 0.5 Mg Tablet) 0.5 mg PO BID PRN PRN Reason: anxiety Last Admin: 10/03/22 01:59 Dose: 0.5 mg Documented By: AGNESZETeresa Diphenhydramine HCl (Diphenhydramine Hcl 50 Mg/Ml Vial) 25 mg IVPUSH Q6H PRN PRN Reason: anxiety, itching Docusate Sodium (Docusate Sodium 100 Mg Capsule) 100 mg PO DAILY PRN PRN Reason: Constipation Enoxaparin Sodium (Enoxaparin Sodium 40 Mg/0.4 Ml Syringe) 40 mg SUBCUT Q24H [facility] Last Admin: 10/02/22 20:31 Dose: Not Given Documented By: VERA Non-Admin Reason: Patient Refused Meropenem 1 gm/ Sodium (Chloride) 100 mls @ 200 mls/hr IV Q8H [facility] Last Admin: 10/03/22 12:56 Dose: 200 mls/hr Documented By: GREGORY Loratadine (Loratadine 10 Mg Tablet) 10 mg PO DAILY PRN PRN Reason: Allergic Symptoms Lorazepam (Lorazepam 2 Mg/Ml Vial) 2 mg IVPUSH ONCE PRN PRN Reason: midline placement Last Admin: 10/02/22 08:38 Dose: 2 mg Documented By: ZOILA Lorazepam (Lorazepam 2 Mg/Ml Vial) 2 mg IVPUSH ONCE PRN PRN Reason: picc Methadone HCl (Methadone Hcl 20 Mg/2 Ml Oral.Conc) 109 mg PO DAILY [facility] Last Admin: 10/03/22 08:52 Dose: 109 mg Documented By: GREGORY Metoprolol Tartrate (Metoprolol Tartrate 12.5 Mg Halftab) 12.5 mg PO BID [facility]; Protocol Last Admin: 10/03/22 08:55 Dose: 12.5 mg Documented By: GREGORY Morphine Sulfate (Morphine Sulfate 4 Mg/Ml Cartridge) 2 mg IVPUSH Q4H PRN; Protocol PRN Reason: Pain, Severe (Pain Scale 7-10) Last Admin: 10/03/22 05:06 Dose: 2 mg Documented By: PRISCILA Nicotine Polacrilex (Nicotine Polacrilex 2 Mg Gum) 2 mg BUCCAL Q2H PRN PRN Reason: Nicotine Cravings Last Admin: 10/03/22 10:46 Dose: 2 mg Documented By: GREGORY Ondansetron HCl (Ondansetron Hcl 4 Mg/2 Ml Vial) 4 mg IVPUSH Q8H PRN PRN Reason: Nausea and Vomiting Oxycodone HCl (Oxycodone Hcl Immed Release 5 Mg Tablet) 5 mg PO Q4H PRN PRN Reason: Pain, Severe (Pain Scale 7-10) Last Admin: 10/03/22 01:59 Dose: 5 mg Documented By: PRISCILA Pharmacy Consult (Consult Rx Perform Med Rec) 1 each MISCELLANE ONCE PRN PRN Reason: Consult order Prednisone (Prednisone 5 Mg Tablet) 15 mg PO DAILY [facility] Last Admin: 10/03/22 08:54 Dose: 15 mg Documented By: GREGORY Sodium Chloride (0.9 % Sodium Chloride Flush 3 Ml Syringe) 3 ml IVFLUSH QSHIFT [facility] Last Admin: 10/03/22 08:55 Dose: 3 ml Documented By: GREGORY Vitamin D (Cholecalciferol (Vitamin D3) 25 Mcg Tablet) 25 mcg PO DAILY [facility] Last Admin: 10/03/22 08:55 Dose: 25 mcg Documented By: GREGORY Labs 09/29/22 06:02 09/29/22 06:02 Assessment and Plan (1) Acute pyelonephritis: Status: Acute Plan 57F PMH HLD, migraines, psoriasis, obesity, presented with back pain found to have sepsis and afib with rvr sepsis due to acute pyelonephritis complicated by esbl ecoli bacteremia changed to merem 09/29/22 plan for 14 days merem/ertapenem - end 10/12/22 not accepted by home infusion company new onset afib with rvr converted to sinus likely due to above continue meroprolol unlikely to benefit from anticoagulation pulm nodule chest ct in 3-6 months hld statin obesity weight loss smoking cessation DVT prophylaxis-Lovenox Full code reason for continued hospitalization:needs iv abx plan set up Time Spent With Patient Time: Total time managing care of this patient today ____ minutes. Quality Stroke Does the patient have a stroke diagnosis?: No VTE Prior VTE?: No VTE Risk Level:: Medical - moderate - high VTE Device Contraindication: Treatment Not Indicated VTE Drug Contraindication: N/A - Med Ordered
[2022-10-03 16:00] VITALS: BP 133/78; PULSE 65; RESP 20; TEMP 36.4; O2SAT 97
[2022-10-03 19:30] VITALS: BP 130/69; PULSE 63; RESP 18; TEMP 35.9; O2SAT 99
[2022-10-03] MEDS: Atorvastatin Calcium 10 MG TABLET PO (19:40)
[2022-10-03] MEDS: Enoxaparin Sodium 40 MG/0.4 ML SYRINGE SUBCUT (19:41)
[2022-10-03] MEDS: diphenhydrAMINE HCL 50 MG/ML VIAL 25 MG IVPUSH (21:29)
[2022-10-03 23:29] VITALS: BP 160/82; PULSE 52; RESP 18; TEMP 37.1; O2SAT 96
[2022-10-04] MEDS: Acetaminophen 325 MG TABLET 650 MG PO ×2 (02:15→18:08)
[2022-10-04 03:47] VITALS: BP 156/88; PULSE 61; RESP 20; TEMP 36.8; O2SAT 94
[2022-10-04] MEDS: oxyCODONE HCl Immed Release 5 MG TABLET PO ×2 (03:48→18:08)
[2022-10-04] MEDS: clonazePAM 0.5 MG TABLET PO ×2 (03:48→12:55)
[2022-10-04] MEDS: diphenhydrAMINE HCL 50 MG/ML VIAL 25 MG IVPUSH ×2 (03:49→21:39)
[2022-10-04 07:41] VITALS: BP 163/79; PULSE 56; RESP 20; TEMP 36.1; O2SAT 100
[2022-10-04] MEDS: Cholecalciferol (Vitamin D3) 25 MCG TABLET PO (08:24)
[2022-10-04] MEDS: Metoprolol Tartrate 12.5 MG HALFTAB PO ×2 (08:24→20:28)
[2022-10-04] MEDS: predniSONE 5 MG TABLET 15 MG PO (08:24)
[2022-10-04] MEDS: methADONE HCl 20 MG/2 ML ORAL.CONC 109 MG PO (08:25)
[2022-10-04] MEDS: 0.9 % Sodium Chloride Flush 3 ML SYRINGE IVFLUSH ×2 (08:25→16:01)
--- NOTE | 2022-10-04 09:58 | MHC.CM.PN ---
Addendum entered by Adelina Stein RN 10/04/22 10:12: CM RECEIVED CALL FROM PT THIS AM FROM PT'S ROOM, DISPO DISCUSSED AND PT CONT'S TO DECLINE STR, HOSPITALIST AWARE. Original Note: LATE ENTRY NOTE 10/03/22, PT REFUSING TO GO TO STR, NOT SPECIFICALLY [facility] HOWEVER REFUSING TO GO TO ANY SNF TO COMPLETE HER 2WKS OF IV ABX, LAST DOSE WILL BE ON 10/12/22. CM WILL FOLLOW UP W/ AND SEE IF HE CAN DISCUSS W/PT, CM WILL CONT TO FOLLOW DC NEEDS.
--- NOTE | 2022-10-04 10:39 | MHC.CM.PN ---
CM RECEIVED CALL FROM PT'S DTR CODY REQUESTING INFO ON PT, CM MET W/PT WHO GAVE VERBAL CONSENT FOR CM TO DISCUSS CASE W/CODY INCLUDING WHY SHE IS UNABLE TO GO HOME W/IV ABX AND WHY CM IS REQUESTING PT GO TO REHAB, CM EXPLAINED TO CODY REASONING AND CLARIFIED 3 TIMES THAT PT WOULD NOT BE GOING TO DRUG REHAB IT IS MEDICAL SHORT TERM REHAB TO TX T'S BACTEREMIA W/IV ABX UNTIL 10/12. CM ALSO EXPLAINED REASON PLAN CHANGED AND PT WAS UNABLE TO D/C HOME PREVIOUSLY PLANNED. CODY REPORTS SHE WILL CALL PT TO EXPLAIN PLAN PT IS FOCUSED ON THINKING SHE NEEDS DRUG REHAB. CM HAS CONTACTED [employer] AND WILL SEE IF PT IS AGREEABLE TO [facility].
[2022-10-04 11:27] VITALS: BP 147/79; PULSE 58; RESP 20; TEMP 36.1; O2SAT 98
--- NOTE | 2022-10-04 11:37 | MHC.CM.PN ---
CM MET W/PT AND SAMPLE MOUNTER DTR CODY THOUGHT SHE WOULDN'T UNDERSTAND WELL ENOUGH WITHOUT, PT REPORTED SHE DID SPEAK TO [facility]ODY AND IS STILL DECLINING STR, CM DID HAVE MOTOR ANALYST CLARIFY IT IS FOR MEDICAL REHAB FOR PT'S BACTEREMIA HOWEVER PT CONT'S TO DECLINE STR. PT VOICED CONCERN REGARDING RELEASE OF INFORMATION SIGNED ON 10/02/22 WHICH CM WENT OVER W/PT AND W/SPECIFIC INFO OPTION CARE REQUESTED, WAS WITNESS AT BEDSIDE ON 10/02 WHEN PT SIGNED CONSENT. PT ALSO REQUESTING NEW CM AND CM DIRECTOR AND PT EXPERIENCE STUNT DOUBLE NOTIFIED VIA [employer].
[2022-10-04] MEDS: Nicotine Polacrilex 2 MG GUM BUCCAL (12:56)
--- NOTE | 2022-10-04 14:21 | HO.PM.IMPN ---
Subjective Subjective Date of Service: 10/04/22 Interval History: refusing rehab, denies fever, no chills, no other acute overnight events, tolerating IV antibiotics, no nausea, no vomiting, no abdominal pain or diarrhea. Review of Systems All other system reviewed and negative. Physical Exam Vital Signs: Vital Signs: Last Vital Signs Temp 97.0 F 10/04/22 11:27 Pulse 58 10/04/22 11:27 Resp 20 10/04/22 11:27 BP 147/79 H 10/04/22 11:27 Pulse Ox 98 10/04/22 11:27 O2 Del Method Room Air 10/04/22 11:27 BMI result Body Mass Index 38.4 Const: Other: GENERAL APPEARANCE : awake alert x3, in no acute distre ss. NECK: no carot id bruit, no jugul ar venous distenti on. HEART: no murm urs, regular rate and rhythm. LUNGS: clear to ausculta tion bilaterally. ABDOMEN: soft, non tender. EXTREMITIE S: no edema. NEURO LOGIC: No gross de ficits, speech cl ear SKIN dry scal y few bruises both upper extremities Objective Data Active Medications Acetaminophen (Acetaminophen 325 Mg Tablet) 650 mg PO Q6H PRN PRN Reason: Pain, Mild (Pain Scale 1-3) Last Admin: 10/04/22 02:15 Dose: 650 mg Documented By: MAHNAZ Atorvastatin Calcium (Atorvastatin Calcium 10 Mg Tablet) 10 mg PO BEDTIME [facility] Last Admin: 10/03/22 19:40 Dose: 10 mg Documented By: MARTELL-YAMILET Betamethasone Dipropion Augmented (Betamethasone Dip Aug 0.05% Cr 15 Gm Tube) 1 appl TOPICAL BID PRN PRN Reason: psoriasis Last Admin: 10/01/22 00:46 Dose: 1 appl Documented By: CATHLEEN Clonazepam (Clonazepam 0.5 Mg Tablet) 0.5 mg PO BID PRN PRN Reason: anxiety Last Admin: 10/04/22 12:55 Dose: 0.5 mg Documented By: PETRA Diphenhydramine HCl (Diphenhydramine Hcl 50 Mg/Ml Vial) 25 mg IVPUSH Q6H PRN PRN Reason: anxiety, itching Last Admin: 10/04/22 03:49 Dose: 25 mg Documented By: MAHNAZ Docusate Sodium (Docusate Sodium 100 Mg Capsule) 100 mg PO DAILY PRN PRN Reason: Constipation Enoxaparin Sodium (Enoxaparin Sodium 40 Mg/0.4 Ml Syringe) 40 mg SUBCUT Q24H [facility] Last Admin: 10/03/22 19:41 Dose: 40 mg Documented By: MARTELL-YAMILET Meropenem 1 gm/ Sodium (Chloride) 100 mls @ 200 mls/hr IV Q8H [facility] Last Admin: 10/04/22 12:56 Dose: 200 mls/hr Documented By: PETRA Loratadine (Loratadine 10 Mg Tablet) 10 mg PO DAILY PRN PRN Reason: Allergic Symptoms Lorazepam (Lorazepam 2 Mg/Ml Vial) 2 mg IVPUSH ONCE PRN PRN Reason: midline placement Last Admin: 10/02/22 08:38 Dose: 2 mg Documented By: ZOILA Lorazepam (Lorazepam 2 Mg/Ml Vial) 2 mg IVPUSH ONCE PRN PRN Reason: picc Methadone HCl (Methadone Hcl 20 Mg/2 Ml Oral.Conc) 109 mg PO DAILY [facility] Last Admin: 10/04/22 08:25 Dose: 109 mg Documented By: PETRA Metoprolol Tartrate (Metoprolol Tartrate 12.5 Mg Halftab) 12.5 mg PO BID [facility]; Protocol Last Admin: 10/04/22 08:24 Dose: 12.5 mg Documented By: PETRA Nicotine Polacrilex (Nicotine Polacrilex 2 Mg Gum) 2 mg BUCCAL Q2H PRN PRN Reason: Nicotine Cravings Last Admin: 10/04/22 12:56 Dose: 2 mg Documented By: PETRA Ondansetron HCl (Ondansetron Hcl 4 Mg/2 Ml Vial) 4 mg IVPUSH Q8H PRN PRN Reason: Nausea and Vomiting Oxycodone HCl (Oxycodone Hcl Immed Release 5 Mg Tablet) 5 mg PO Q6H PRN PRN Reason: Pain, Severe (Pain Scale 7-10) Pharmacy Consult (Consult Rx Perform Med Rec) 1 each MISCELLANE ONCE PRN PRN Reason: Consult order Prednisone (Prednisone 5 Mg Tablet) 15 mg PO DAILY [facility] Last Admin: 10/04/22 08:24 Dose: 15 mg Documented By: PETRA Sodium Chloride (0.9 % Sodium Chloride Flush 3 Ml Syringe) 3 ml IVFLUSH QSHIFT [facility] Last Admin: 10/04/22 08:25 Dose: 3 ml Documented By: PETRA Vitamin D (Cholecalciferol (Vitamin D3) 25 Mcg Tablet) 25 mcg PO DAILY [facility] Last Admin: 10/04/22 08:24 Dose: 25 mcg Documented By: PETRA Labs 09/29/22 06:02 09/29/22 06:02 Assessment and Plan (1) Acute pyelonephritis: Status: Acute Plan 57F PMH HLD, migraines, psoriasis, obesity, presented with back pain found to have sepsis and afib with rvr sepsis due to acute pyelonephritis complicated by esbl ecoli bacteremia changed to merem 09/29/22 plan for 14 days merem/ertapenem - end 10/12/22 not accepted by home infusion company, patient declining rehab. continue methadone for history of opioid use will DC IV morphine and minimize use of oxycodone new onset afib with rvr converted to sinus likely due to above continue meroprolol unlikely to benefit from anticoagulation pulm nodule chest ct in 3-6 months hld statin obesity weight loss smoking cessation continue Nicorette as needed history of psoriasis continue prednisone. DVT prophylaxis-Lovenox Full code reason for continued hospitalization:needs iv abx Time Spent With Patient Time: Total time managing care of this patient today ____ minutes. Quality Stroke Does the patient have a stroke diagnosis?: No VTE Prior VTE?: No VTE Risk Level:: Medical - moderate - high VTE Device Contraindication: Treatment Not Indicated VTE Drug Contraindication: N/A - Med Ordered
[2022-10-04 15:11] VITALS: BP 131/68; PULSE 70; RESP 18; TEMP 35.9; O2SAT 95
[2022-10-04] MEDS: Betamethasone Dip Aug 0.05% Cr 15 GM TUBE 1 APPL TOPICAL (18:09)
[2022-10-04 19:48] VITALS: BP 135/76; PULSE 63; RESP 18; TEMP 35.9; O2SAT 100
[2022-10-04] MEDS: Atorvastatin Calcium 10 MG TABLET PO (20:28)
[2022-10-04 23:42] VITALS: BP 140/86; PULSE 56; RESP 18; TEMP 36.8; O2SAT 97
[2022-10-05] MEDS: oxyCODONE HCl Immed Release 5 MG TABLET PO ×4 (00:19→21:12)
[2022-10-05] MEDS: clonazePAM 0.5 MG TABLET PO ×3 (00:19→22:19)
[2022-10-05] MEDS: 0.9 % Sodium Chloride Flush 3 ML SYRINGE IVFLUSH ×4 (00:30→21:16)
[2022-10-05] MEDS: Acetaminophen 325 MG TABLET 650 MG PO (05:31)
[2022-10-05 07:27] VITALS: BP 136/61; PULSE 51; RESP 16; TEMP 36.6; O2SAT 98
[2022-10-05] MEDS: methADONE HCl 20 MG/2 ML ORAL.CONC 109 MG PO (08:32)
[2022-10-05] MEDS: Metoprolol Tartrate 12.5 MG HALFTAB PO (08:33)
[2022-10-05] MEDS: Cholecalciferol (Vitamin D3) 25 MCG TABLET PO (08:33)
[2022-10-05] MEDS: predniSONE 5 MG TABLET 15 MG PO (08:33)
[2022-10-05] MEDS: Nicotine Polacrilex 2 MG GUM BUCCAL (08:44)
[2022-10-05 11:16] VITALS: BP 139/81; PULSE 58; RESP 20; TEMP 36.3; O2SAT 94
--- NOTE | 2022-10-05 12:53 | P.PNIM_ITS ---
Subjective Subjective Date of Service: 10/05/22 Interval History: complaining of generalized itching due to psoriasis, also complaining of vaginal itching and discharge, denies fever chills, no urinary symptoms of urgency frequency, requesting pain medications for chronic left knee pain. Review of Systems all other system reviewed and negative. Physical Exam Vital Signs: Vital Signs: Last Vital Signs Temp 97.3 F 10/05/22 11:16 Pulse 58 10/05/22 11:16 Resp 20 10/05/22 11:16 BP 139/81 10/05/22 11:16 Pulse Ox 94 10/05/22 11:16 O2 Del Method Room Air 10/05/22 11:16 BMI result Body Mass Index 38.4 Const: Other: GENERAL APPEARANCE:? awake alert x3,in no acute distress. NECK: no carotid bruit, no jugular venous distention. HEART: no murmurs, regular rate and rhythm. LUNGS:?clear to auscultation bilaterally. ABDOMEN: soft, non tender. EXTREMITIES: no edema. NEUROLOGIC: No gross deficits,? speech clear SKIN? dry scaly skin with discoloration dorsum of hands and elbows ( history of psoriasis) Objective Data Active Medications Acetaminophen (Acetaminophen 325 Mg Tablet) 650 mg PO Q6H PRN PRN Reason: Pain, Mild (Pain Scale 1-3) Last Admin: 10/05/22 05:31 Dose: 650 mg Documented By: LINO Atorvastatin Calcium (Atorvastatin Calcium 10 Mg Tablet) 10 mg PO BEDTIME [facility] Last Admin: 10/04/22 20:28 Dose: 10 mg Documented By: VERA Betamethasone Dipropion Augmented (Betamethasone Dip Aug 0.05% Cr 15 Gm Tube) 1 appl TOPICAL BID PRN PRN Reason: psoriasis Last Admin: 10/04/22 18:09 Dose: 1 appl Documented By: VERA Clonazepam (Clonazepam 0.5 Mg Tablet) 0.5 mg PO BID PRN PRN Reason: anxiety Last Admin: 10/05/22 12:16 Dose: 0.5 mg Documented By: KRISTOPHER Docusate Sodium (Docusate Sodium 100 Mg Capsule) 100 mg PO DAILY PRN PRN Reason: Constipation Enoxaparin Sodium (Enoxaparin Sodium 40 Mg/0.4 Ml Syringe) 40 mg SUBCUT Q24H [facility] Last Admin: 10/04/22 20:33 Dose: Not Given Documented By: VERA Non-Admin Reason: Patient Refused Meropenem 1 gm/ Sodium (Chloride) 100 mls @ 200 mls/hr IV Q8H [facility] Last Admin: 10/05/22 12:16 Dose: 200 mls/hr Documented By: KRISTOPHER Loratadine (Loratadine 10 Mg Tablet) 10 mg PO DAILY PRN PRN Reason: Allergic Symptoms Lorazepam (Lorazepam 2 Mg/Ml Vial) 2 mg IVPUSH ONCE PRN PRN Reason: picc Methadone HCl (Methadone Hcl 20 Mg/2 Ml Oral.Conc) 109 mg PO DAILY [facility] Last Admin: 10/05/22 08:32 Dose: 109 mg Documented By: KRISTOPHER Metoprolol Tartrate (Metoprolol Tartrate 12.5 Mg Halftab) 12.5 mg PO BID [facility]; Protocol Last Admin: 10/05/22 08:33 Dose: 12.5 mg Documented By: KRISTOPHER Nicotine Polacrilex (Nicotine Polacrilex 2 Mg Gum) 2 mg BUCCAL Q2H PRN PRN Reason: Nicotine Cravings Last Admin: 10/05/22 08:44 Dose: 2 mg Documented By: KRISTOPHER Ondansetron HCl (Ondansetron Hcl 4 Mg/2 Ml Vial) 4 mg IVPUSH Q8H PRN PRN Reason: Nausea and Vomiting Oxycodone HCl (Oxycodone Hcl Immed Release 5 Mg Tablet) 5 mg PO Q6H PRN PRN Reason: Pain, Severe (Pain Scale 7-10) Last Admin: 10/05/22 12:25 Dose: 5 mg Documented By: KRISTOPHER Pharmacy Consult (Consult Rx Perform Med Rec) 1 each MISCELLANE ONCE PRN PRN Reason: Consult order Prednisone (Prednisone 5 Mg Tablet) 15 mg PO DAILY [facility] Last Admin: 10/05/22 08:33 Dose: 15 mg Documented By: KRISTOPHER Sodium Chloride (0.9 % Sodium Chloride Flush 3 Ml Syringe) 3 ml IVFLUSH QSHIFT [facility] Last Admin: 10/05/22 08:34 Dose: 3 ml Documented By: KRISTOPHER Vitamin D (Cholecalciferol (Vitamin D3) 25 Mcg Tablet) 25 mcg PO DAILY [facility] Last Admin: 10/05/22 08:33 Dose: 25 mcg Documented By: KRISTOPHER Labs 09/29/22 06:02 09/29/22 06:02 Assessment and Plan (1) Acute pyelonephritis: Status: Acute Plan 57F PMH HLD, migraines, psoriasis, obesity, presented with back pain found to have sepsis and afib with rvr sepsis due to acute pyelonephritis complicated by esbl ecoli bacteremia WBC normalized, no fevers changed to merem 09/29/22 plan for 14 days merem/ertapenem - end date 10/12/22 not accepted by home infusion company, patient declining rehab. will continue IV antibiotic in house continue methadone for history of opioid use will DC IV morphine and minimize use of oxycodone new onset afib with rvr converted to sinus likely due to above continue meroprolol unlikely to benefit from anticoagulation pulm nodule chest ct in 3-6 months hld continue statin obesity recommended low-calorie diet and weight loss smoking cessation continue Nicorette as needed history of psoriasis continue prednisone, by mouth Benadryl as needed. recommend outpatient follow-up with Dermatology Alanis vaginitis Diflucan 150 mg x 1 DVT prophylaxis-Lovenox Full code reason for continued hospitalization:needs iv abx end date 10/12 Time Spent With Patient Time: Total time managing care of this patient today ____ minutes. Quality Stroke Does the patient have a stroke diagnosis?: No VTE Prior VTE?: No VTE Risk Level:: Medical - moderate - high VTE Device Contraindication: Treatment Not Indicated VTE Drug Contraindication: N/A - Med Ordered
[2022-10-05 15:23] VITALS: BP 134/78; PULSE 55; RESP 18; TEMP 36.1; O2SAT 97
[2022-10-05] MEDS: Fluconazole 150 MG TABLET PO (15:31)
[2022-10-05 20:00] VITALS: PULSE 57; RESP 18; TEMP 35.9; O2SAT 98
[2022-10-05 20:36] VITALS: BP 134/68
[2022-10-05 21:11] VITALS: PULSE 53
[2022-10-05] MEDS: Atorvastatin Calcium 10 MG TABLET PO (21:12)
[2022-10-05] MEDS: diphenhydrAMINE HCL 25 MG CAPSULE 50 MG PO (21:12)
[2022-10-06] VITALS (7 sets, daily range): BP systolic 116–154; BP diastolic 64–101; PULSE 56–66; RESP 16–22; TEMP 35.7–37.1; O2SAT 96–99
[2022-10-06] MEDS: Betamethasone Dip Aug 0.05% Cr 15 GM TUBE 1 APPL TOPICAL ×2 (00:19→18:32)
[2022-10-06] MEDS: diphenhydrAMINE HCL 50 MG/ML VIAL IVPUSH ×2 (00:49→22:43)
[2022-10-06] MEDS: 0.9 % Sodium Chloride Flush 3 ML SYRINGE IVFLUSH ×2 (08:41→18:19)
[2022-10-06] MEDS: Metoprolol Tartrate 12.5 MG HALFTAB PO (08:41)
[2022-10-06] MEDS: predniSONE 5 MG TABLET 15 MG PO (08:42)
[2022-10-06] MEDS: methADONE HCl 20 MG/2 ML ORAL.CONC 109 MG PO (08:42)
[2022-10-06] MEDS: Cholecalciferol (Vitamin D3) 25 MCG TABLET PO (08:42)
[2022-10-06] MEDS: oxyCODONE HCl Immed Release 5 MG TABLET PO ×2 (08:53→18:19)
[2022-10-06 09:00] LABS: Anion Gap 17 (12-20); Blood Urea Nitrogen 6 mg/dL (9-16); Calcium 9.9 mg/dL (8.4-10.2); Carbon Dioxide 26 mmol/L (22-29); Chloride 104 mmol/L (96-108); Creatinine Clr Calc Pharmacy 114.5; Estimated Glomerular Filt Rate > 60; Glucose Random 75 mg/dL (60-115); Potassium 3.4 mmol/L (3.3-5.1); Sodium 144 mmol/L (135-145)
--- NOTE | 2022-10-06 10:14 | P.PNIM_ITS ---
Subjective Subjective Date of Service: 10/06/22 Interval History: Complaining of itching after receiving antibiotic at night only requesting for intravenous Benadryl since by mouth medicine is not working, tolerating diet no nausea ,no vomiting, no abdominal pain, no fevers no chills, no urinary symptoms, taking pain medications every 6 hours for chronic back pain. Review of Systems all other system reviewed and negative Physical Exam Vital Signs: Vital Signs: Last Vital Signs Temp 97.0 F 10/06/22 07:16 Pulse 57 10/06/22 07:16 Resp 20 10/06/22 07:16 BP 142/70 H 10/06/22 07:16 Pulse Ox 97 10/06/22 07:16 O2 Del Method Room Air 10/06/22 07:16 BMI result Body Mass Index 38.4 Const: Other: GENERAL APPEARANCE :? awake alert x3, in no acute distre ss. NECK: no carot id bruit, no jugul ar venous distenti on. HEART: no murm urs, regular rate and rhythm. LUNGS: ?clear to ausculta tion bilaterally. ABDOMEN: soft, non tender. EXTREMITI ES: no edema. NEUR OLOGIC: No gross d eficits,? speech c lear SKIN? dry sca ly? skin with disc oloration dorsum o f hands and elbows ( history of psor iasis) no new bebe h, no hives Objective Data Active Medications Acetaminophen (Acetaminophen 325 Mg Tablet) 650 mg PO Q6H PRN PRN Reason: Pain, Mild (Pain Scale 1-3) Last Admin: 10/05/22 05:31 Dose: 650 mg Documented By: LINO Atorvastatin Calcium (Atorvastatin Calcium 10 Mg Tablet) 10 mg PO BEDTIME [facility] Last Admin: 10/05/22 21:12 Dose: 10 mg Documented By: MAHI Betamethasone Dipropion Augmented (Betamethasone Dip Aug 0.05% Cr 15 Gm Tube) 1 appl TOPICAL BID PRN PRN Reason: psoriasis Last Admin: 10/06/22 00:19 Dose: 1 appl Documented By: MAHI Clonazepam (Clonazepam 0.5 Mg Tablet) 0.5 mg PO BID PRN PRN Reason: anxiety Last Admin: 10/05/22 22:19 Dose: 0.5 mg Documented By: MAHI Comments: notified and ordered administer Diphenhydramine HCl (Diphenhydramine Hcl 25 Mg Capsule) 50 mg PO Q8H PRN PRN Reason: Itching Last Admin: 10/05/22 21:12 Dose: 50 mg Documented By: MAHI Docusate Sodium (Docusate Sodium 100 Mg Capsule) 100 mg PO DAILY PRN PRN Reason: Constipation Enoxaparin Sodium (Enoxaparin Sodium 40 Mg/0.4 Ml Syringe) 40 mg SUBCUT Q24H [facility] Last Admin: 10/05/22 21:15 Dose: Not Given Documented By: MAHI Non-Admin Reason: Patient Refused Meropenem 1 gm/ Sodium (Chloride) 100 mls @ 200 mls/hr IV Q8H [facility] Last Infusion: 10/06/22 05:26 Dose: 0 mls/hr Documented By: MAHI Loratadine (Loratadine 10 Mg Tablet) 10 mg PO DAILY PRN PRN Reason: Allergic Symptoms Methadone HCl (Methadone Hcl 20 Mg/2 Ml Oral.Conc) 109 mg PO DAILY [facility] Last Admin: 10/06/22 08:42 Dose: 109 mg Documented By: WESTON Metoprolol Tartrate (Metoprolol Tartrate 12.5 Mg Halftab) 12.5 mg PO BID [facility]; Protocol Last Admin: 10/06/22 08:41 Dose: 12.5 mg Documented By: WESTON Nicotine Polacrilex (Nicotine Polacrilex 2 Mg Gum) 2 mg BUCCAL Q2H PRN PRN Reason: Nicotine Cravings Last Admin: 10/05/22 08:44 Dose: 2 mg Documented By: KRISTOPHER Ondansetron HCl (Ondansetron Hcl 4 Mg/2 Ml Vial) 4 mg IVPUSH Q8H PRN PRN Reason: Nausea and Vomiting Oxycodone HCl (Oxycodone Hcl Immed Release 5 Mg Tablet) 5 mg PO Q6H PRN PRN Reason: Pain, Severe (Pain Scale 7-10) Last Admin: 10/06/22 08:53 Dose: 5 mg Documented By: WESTON Pharmacy Consult (Consult Rx Perform Med Rec) 1 each MISCELLANE ONCE PRN PRN Reason: Consult order Prednisone (Prednisone 5 Mg Tablet) 15 mg PO DAILY [facility] Last Admin: 10/06/22 08:42 Dose: 15 mg Documented By: WESTON Sodium Chloride (0.9 % Sodium Chloride Flush 3 Ml Syringe) 3 ml IVFLUSH QSHIFT [facility] Last Admin: 10/06/22 08:41 Dose: 3 ml Documented By: WESTON Vitamin D (Cholecalciferol (Vitamin D3) 25 Mcg Tablet) 25 mcg PO DAILY [facility] Last Admin: 10/06/22 08:42 Dose: 25 mcg Documented By: WESTON Labs 09/29/22 06:02 10/06/22 08:17 Labs: Laboratory Results - last 24 hr 10/06/22 08:17 Anion Gap 17 Estim Creat Clear Calc 114.5 Estimated GFR > 60 Random Glucose 75 Calcium 9.9 Assessment and Plan (1) Acute pyelonephritis: Status: Acute Plan 57F PMH HLD, migraines, psoriasis, obesity, presented with back pain found to have sepsis and afib with rvr sepsis due to acute pyelonephritis complicated by esbl ecoli bacteremia WBC normalized, no fevers changed to merem 09/29/22 plan for 14 days merem/ertapenem - end date 10/12/22 not accepted by home infusion company, patient declining rehab. will continue IV antibiotic in house no rash noted suggestive of antibiotic allergy continue methadone for history of opioid use , minimize use of oxycodone, new onset afib with rvr converted to sinus likely due to above continue meroprolol, anticoagulation not recommended pulm nodule chest ct in 3-6 months hld continue statin obesity recommended low-calorie diet and weight loss smoking cessation continue Nicorette as needed history of psoriasis continue prednisone, by mouth Benadryl as needed. no new rashes noted, recommend outpatient follow-up with Dermatology Alanis vaginitis Diflucan 150 mg x 1 given symptoms improved DVT prophylaxis-Lovenox Full code reason for continued hospitalization:needs iv abx end date 10/12 Time Spent With Patient Time: Total time managing care of this patient today ____ minutes. Quality Stroke Does the patient have a stroke diagnosis?: No VTE Prior VTE?: No VTE Risk Level:: Medical - moderate - high VTE Device Contraindication: Treatment Not Indicated VTE Drug Contraindication: N/A - Med Ordered
[2022-10-06] MEDS: clonazePAM 0.5 MG TABLET PO (13:37)
[2022-10-06] MEDS: diphenhydrAMINE HCL 25 MG CAPSULE 50 MG PO (18:29)
[2022-10-06] MEDS: Atorvastatin Calcium 10 MG TABLET PO (20:41)
[2022-10-07] VITALS (7 sets, daily range): BP systolic 112–144; BP diastolic 59–78; PULSE 50–68; RESP 16–20; TEMP 36–36.7; O2SAT 93–99
--- NOTE | 2022-10-07 00:20 | PM.EVENT ---
Event Note Date of Service: 10/07/22 Event Note: pt reports sig itchiness post meropenem. likely to refuse 5 am dose. will give nitrofurontoin instead. Time Spent With Patient Time: Total time managing care of this patient today ____ minutes.
[2022-10-07] MEDS: oxyCODONE HCl Immed Release 5 MG TABLET PO ×3 (00:23→17:34)
[2022-10-07] MEDS: 0.9 % Sodium Chloride Flush 3 ML SYRINGE IVFLUSH ×4 (00:25→21:29)
[2022-10-07] MEDS: clonazePAM 0.5 MG TABLET PO ×3 (01:45→23:31)
[2022-10-07] MEDS: Nitrofurantoin Monohyd/M-Cryst 100 MG CAPSULE PO (05:29)
--- NOTE | 2022-10-07 05:54 | PC.NURSE ---
This nurse assumed care at 18:45. Patient reports of itching of both upper extremites, both lower extremities, abdominal area and upper back and reports feeling more itchy after receiving meropenom. Patient skin looked red and having a rash like apperance. Reports Benadryl 50mg PO is not effective and states that Benadryl IV push to be more effective. MD notified and placed order of Benadryl 50mg IV push and dose was administered. She stated, I don't think I will want my morning dose of meraopenom . MD notifed and placed Macrobid 100mg PO order and was instructed to administer medication if patient refuses meropenom. Patient refused 04:45 meropenam, Macrobid was administered. Patient is alert and oriented x4 and laying comfortable in bed with call [place] within reach.
[2022-10-07] MEDS: methADONE HCl 20 MG/2 ML ORAL.CONC 109 MG PO (09:17)
[2022-10-07] MEDS: Metoprolol Tartrate 12.5 MG HALFTAB PO (09:18)
[2022-10-07] MEDS: Cholecalciferol (Vitamin D3) 25 MCG TABLET PO (09:18)
[2022-10-07] MEDS: predniSONE 5 MG TABLET 15 MG PO (09:18)
[2022-10-07] MEDS: Nicotine Polacrilex 2 MG GUM BUCCAL (09:24)
--- NOTE | 2022-10-07 10:58 | P.PNIM_ITS ---
Subjective Subjective Date of Service: 10/07/22 Interval History: events from last night noted, patient complained of generalized itching post meropenem, examination patient has no new rash noted to have dry scaly rash and hyperpigmentation from psoriasis, no fevers no chills, no headache, no dizziness, patient complaining of dry skin after receiving meropenem and generalized itch. denies fever, no chills, no urinary symptoms. Review of Systems all other system reviewed and negative Physical Exam Vital Signs: Vital Signs: Last Vital Signs Temp 97.6 F 10/07/22 07:12 Pulse 50 10/07/22 07:12 Resp 20 10/07/22 07:12 BP 141/67 H 10/07/22 07:12 Pulse Ox 98 10/07/22 07:12 O2 Del Method Room Air 10/07/22 07:12 BMI result Body Mass Index 38.4 Const: Other: GENERAL APPEARANCE :? awake alert x3, in no acute distre ss. NECK: no carot id bruit, no jugul ar venous distenti on. HEART: no murm urs, regular rate and rhythm. LUNGS: ?clear to ausculta tion bilaterally. ABDOMEN: soft, non tender. EXTREMITI ES: no edema. NEUR OLOGIC: No gross d eficits,? speech c lear SKIN? dry sca ly? skin with disc oloration dorsum o f hands and elbows ( history of psor iasis) no new rash or hives noted Objective Data Active Medications Acetaminophen (Acetaminophen 325 Mg Tablet) 650 mg PO Q6H PRN PRN Reason: Pain, Mild (Pain Scale 1-3) Last Admin: 10/05/22 05:31 Dose: 650 mg Documented By: LINO Atorvastatin Calcium (Atorvastatin Calcium 10 Mg Tablet) 10 mg PO BEDTIME BERONICA Last Admin: 10/06/22 20:41 Dose: 10 mg Documented By: MAHI Betamethasone Dipropion Augmented (Betamethasone Dip Aug 0.05% Cr 15 Gm Tube) 1 appl TOPICAL BID PRN PRN Reason: psoriasis Last Admin: 10/06/22 18:32 Dose: 1 appl Documented By: DAYTONORRJavi Calamine (Calamine/Zinc Oxide Lotion 177 Ml Bottle) 1 appl TOPICAL QID PRN; Protocol PRN Reason: Rash Clonazepam (Clonazepam 0.5 Mg Tablet) 0.5 mg PO BID PRN PRN Reason: anxiety Last Admin: 10/07/22 01:45 Dose: 0.5 mg Documented By: MAHI Diphenhydramine HCl (Diphenhydramine Hcl 25 Mg Capsule) 50 mg PO Q8H PRN PRN Reason: Itching Last Admin: 10/06/22 18:29 Dose: 50 mg Documented By: WESTON Diphenhydramine HCl (Diphenhydramine Hcl 50 Mg/Ml Vial) 50 mg IVPUSH Q8H PRN PRN Reason: Itching Docusate Sodium (Docusate Sodium 100 Mg Capsule) 100 mg PO DAILY PRN PRN Reason: Constipation Enoxaparin Sodium (Enoxaparin Sodium 40 Mg/0.4 Ml Syringe) 40 mg SUBCUT Q24H [facility] Last Admin: 10/06/22 20:41 Dose: Not Given Documented By: MAHI Non-Admin Reason: Patient Refused Meropenem 1 gm/ Sodium (Chloride) 100 mls @ 200 mls/hr IV Q8H [facility] Last Admin: 10/07/22 05:29 Dose: Not Given Documented By: MAHI Non-Admin Reason: Patient Refused Loratadine (Loratadine 10 Mg Tablet) 10 mg PO DAILY PRN PRN Reason: Allergic Symptoms Methadone HCl (Methadone Hcl 20 Mg/2 Ml Oral.Conc) 109 mg PO DAILY [facility] Last Admin: 10/07/22 09:17 Dose: 109 mg Documented By: WESTON Metoprolol Tartrate (Metoprolol Tartrate 12.5 Mg Halftab) 12.5 mg PO BID [facility]; Protocol Last Admin: 10/07/22 09:18 Dose: 12.5 mg Documented By: WESTON Nicotine Polacrilex (Nicotine Polacrilex 2 Mg Gum) 2 mg BUCCAL Q2H PRN PRN Reason: Nicotine Cravings Last Admin: 10/07/22 09:24 Dose: 2 mg Documented By: CTMARILU Ondansetron HCl (Ondansetron Hcl 4 Mg/2 Ml Vial) 4 mg IVPUSH Q8H PRN PRN Reason: Nausea and Vomiting Oxycodone HCl (Oxycodone Hcl Immed Release 5 Mg Tablet) 5 mg PO Q6H PRN PRN Reason: Pain, Severe (Pain Scale 7-10) Last Admin: 10/07/22 09:23 Dose: 5 mg Documented By: WESTON Pharmacy Consult (Consult Rx Perform Med Rec) 1 each MISCELLANE ONCE PRN PRN Reason: Consult order Prednisone (Prednisone 5 Mg Tablet) 15 mg PO DAILY [facility] Last Admin: 10/07/22 09:18 Dose: 15 mg Documented By: WESTON Sodium Chloride (0.9 % Sodium Chloride Flush 3 Ml Syringe) 3 ml IVFLUSH QSHIFT [facility] Last Admin: 10/07/22 09:19 Dose: 3 ml Documented By: WESTON Vitamin D (Cholecalciferol (Vitamin D3) 25 Mcg Tablet) 25 mcg PO DAILY [facility] Last Admin: 10/07/22 09:18 Dose: 25 mcg Documented By: WESTON Labs 09/29/22 06:02 10/06/22 08:17 Assessment and Plan (1) Acute pyelonephritis: Status: Acute Plan 57F PMH HLD, migraines, psoriasis, obesity, presented with back pain found to have sepsis and afib with rvr sepsis due to acute pyelonephritis complicated by esbl ecoli bacteremia WBC normalized, no fevers changed to merem 09/29/22, complaining of generalized itching and dry scaly skin after receiving meropenem, will use IV Benadryl, if no improvement will change to IV ertapenem plan for 14 days merem/ertapenem - end date 10/12/22 not accepted by home infusion company, patient declining rehab. will continue IV antibiotic in house will add calamine lotion. continue methadone for history of opioid use , minimize use of oxycodone, new onset afib with rvr converted to sinus,likely due to above, continue meroprolol, anticoagulation not recommended pulm nodule chest ct in 3-6 months hld continue statin obesity recommended low-calorie diet and weight loss smoking cessation continue Nicorette as needed history of psoriasis continue prednisone, by mouth Benadryl as needed. no new rashes noted, recommend outpatient follow-up with Dermatology Alanis vaginitis Diflucan 150 mg x 1 given symptoms resolved DVT prophylaxis-Lovenox Full code reason for continued hospitalization:needs iv abx end date 10/12 Time Spent With Patient Time: Total time managing care of this patient today ____ minutes. Quality Stroke Does the patient have a stroke diagnosis?: No VTE Prior VTE?: No VTE Risk Level:: Medical - moderate - high VTE Device Contraindication: Treatment Not Indicated VTE Drug Contraindication: N/A - Med Ordered
[2022-10-07] MEDS: diphenhydrAMINE HCL 50 MG/ML VIAL IVPUSH ×2 (16:18→23:30)
[2022-10-07] MEDS: Enoxaparin Sodium 40 MG/0.4 ML SYRINGE SUBCUT (21:28)
[2022-10-07] MEDS: Atorvastatin Calcium 10 MG TABLET PO (21:28)
[2022-10-08] VITALS (7 sets, daily range): BP systolic 122–137; BP diastolic 63–79; PULSE 58–67; RESP 18–20; TEMP 36.3–37.1; O2SAT 94–98
[2022-10-08] MEDS: oxyCODONE HCl Immed Release 5 MG TABLET PO ×3 (04:41→20:16)
[2022-10-08] MEDS: diphenhydrAMINE HCL 25 MG CAPSULE 50 MG PO (06:15)
[2022-10-08] MEDS: methADONE HCl 20 MG/2 ML ORAL.CONC 109 MG PO (09:14)
[2022-10-08] MEDS: 0.9 % Sodium Chloride Flush 3 ML SYRINGE IVFLUSH ×3 (09:15→22:39)
[2022-10-08] MEDS: Metoprolol Tartrate 12.5 MG HALFTAB PO ×2 (09:15→20:15)
[2022-10-08] MEDS: Cholecalciferol (Vitamin D3) 25 MCG TABLET PO (09:15)
[2022-10-08] MEDS: predniSONE 5 MG TABLET 15 MG PO (09:15)
[2022-10-08] MEDS: Nicotine Polacrilex 2 MG GUM BUCCAL (09:23)
--- NOTE | 2022-10-08 10:25 | HO.PM.IMPN ---
Subjective Subjective Date of Service: 10/08/22 Interval History: complaining of itching and rash, worse after IV meropenem, no fevers, no chills, denies nausea, no vomiting no abdominal pain, no urinary symptoms no other acute issues overnight. Review of Systems All other system reviewed and negative. Physical Exam Vital Signs: Vital Signs: Last Vital Signs Temp 97.4 F 10/08/22 07:09 Pulse 61 10/08/22 07:09 Resp 20 10/08/22 07:09 BP 135/64 10/08/22 07:09 Pulse Ox 97 10/08/22 07:09 O2 Del Method Room Air 10/08/22 07:09 BMI result Body Mass Index 38.4 Const: Other: GENERAL APPEARANCE:? awake alert x3,in no acute distress. NECK: no carotid bruit, no jugular venous distention. HEART: no murmurs, regular rate and rhythm. LUNGS:?clear to auscultation bilaterally. ABDOMEN: soft, non tender. EXTREMITIES: no edema. NEUROLOGIC: No gross deficits,? speech clear SKIN? dry scaly? skin with discoloration dorsum of hands and elbows ( history of psoriasis), (diffuse rash upper back chest both arms as per patient new rash with itching) Objective Data Active Medications Acetaminophen (Acetaminophen 325 Mg Tablet) 650 mg PO Q6H PRN PRN Reason: Pain, Mild (Pain Scale 1-3) Last Admin: 10/05/22 05:31 Dose: 650 mg Documented By: LINO Atorvastatin Calcium (Atorvastatin Calcium 10 Mg Tablet) 10 mg PO BEDTIME BERONICA Last Admin: 10/07/22 21:28 Dose: 10 mg Documented By: MAHI Betamethasone Dipropion Augmented (Betamethasone Dip Aug 0.05% Cr 15 Gm Tube) 1 appl TOPICAL BID PRN PRN Reason: psoriasis Last Admin: 10/06/22 18:32 Dose: 1 appl Documented By: DAYTONORRJavi Calamine (Calamine/Zinc Oxide Lotion 177 Ml Bottle) 1 appl TOPICAL QID PRN; Protocol PRN Reason: Rash Clonazepam (Clonazepam 0.5 Mg Tablet) 0.5 mg PO BID PRN PRN Reason: Anxiety Last Admin: 10/07/22 23:31 Dose: 0.5 mg Documented By: DEVI Comments: notified and approved administration early. Diphenhydramine HCl (Diphenhydramine Hcl 25 Mg Capsule) 50 mg PO Q8H PRN PRN Reason: Itching Last Admin: 10/08/22 06:15 Dose: 50 mg Documented By: DEVI Diphenhydramine HCl (Diphenhydramine Hcl 50 Mg/Ml Vial) 50 mg IVPUSH Q8H PRN PRN Reason: Itching Last Admin: 10/07/22 23:30 Dose: 50 mg Documented By: DEVI Comments: notified and approved of med administration early. Docusate Sodium (Docusate Sodium 100 Mg Capsule) 100 mg PO DAILY PRN PRN Reason: Constipation Enoxaparin Sodium (Enoxaparin Sodium 40 Mg/0.4 Ml Syringe) 40 mg SUBCUT Q24H BERONICA Last Admin: 10/07/22 21:28 Dose: 40 mg Documented By: MAHI Ertapenem 1 gm/ Sodium (Chloride) 50 mls @ 100 mls/hr IV Q24H [facility] Loratadine (Loratadine 10 Mg Tablet) 10 mg PO DAILY PRN PRN Reason: Allergic Symptoms Methadone HCl (Methadone Hcl 20 Mg/2 Ml Oral.Conc) 109 mg PO DAILY [facility] Last Admin: 10/08/22 09:14 Dose: 109 mg Documented By: WESTON Metoprolol Tartrate (Metoprolol Tartrate 12.5 Mg Halftab) 12.5 mg PO BID [facility]; Protocol Last Admin: 10/08/22 09:15 Dose: 12.5 mg Documented By: WESTON Nicotine Polacrilex (Nicotine Polacrilex 2 Mg Gum) 2 mg BUCCAL Q2H PRN PRN Reason: Nicotine Cravings Last Admin: 10/08/22 09:23 Dose: 2 mg Documented By: WESTON Ondansetron HCl (Ondansetron Hcl 4 Mg/2 Ml Vial) 4 mg IVPUSH Q8H PRN PRN Reason: Nausea and Vomiting Oxycodone HCl (Oxycodone Hcl Immed Release 5 Mg Tablet) 5 mg PO Q6H PRN PRN Reason: Pain, Severe (Pain Scale 7-10) Last Admin: 10/08/22 04:41 Dose: 5 mg Documented By: DEVI Pharmacy Consult (Consult Rx Perform Med Rec) 1 each MISCELLANE ONCE PRN PRN Reason: Consult order Prednisone (Prednisone 5 Mg Tablet) 15 mg PO DAILY [facility] Last Admin: 10/08/22 09:15 Dose: 15 mg Documented By: WESTON Sodium Chloride (0.9 % Sodium Chloride Flush 3 Ml Syringe) 3 ml IVFLUSH QSHIFT [facility] Last Admin: 10/08/22 09:15 Dose: 3 ml Documented By: WESTON Vitamin D (Cholecalciferol (Vitamin D3) 25 Mcg Tablet) 25 mcg PO DAILY [facility] Last Admin: 10/08/22 09:15 Dose: 25 mcg Documented By: WESTON Labs 09/29/22 06:02 10/06/22 08:17 Assessment and Plan (1) Acute pyelonephritis: Status: Acute Plan 57F PMH HLD, migraines, psoriasis, obesity, presented with back pain found to have sepsis and afib with rvr sepsis due to acute pyelonephritis complicated by esbl ecoli bacteremia WBC normalized, no fevers changed to merem 09/29/22, complaining of generalized itching and dry scaly skin after receiving meropenem, this morning noted to have diffuse rash will DC IV meropenem and place patient on IV ertapenemwill, IV Benadryl prn, calamine lotion,plan for 14 days merem/ertapenem - end date 10/12/22 not accepted by home infusion company, patient declining rehab. will continue IV antibiotic in house continue methadone for history of opioid use , minimize use of oxycodone, new onset afib with rvr converted to sinus,likely due to above, continue meroprolol, anticoagulation not recommended pulm nodule chest ct in 3-6 months hld continue statin obesity recommended low-calorie diet and weight loss smoking cessation continue Nicorette as needed history of psoriasis continue prednisone, by mouth Benadryl as needed. no new rashes noted, recommend outpatient follow-up with Dermatology Alanis vaginitis Diflucan 150 mg x 1 given symptoms resolved DVT prophylaxis-Lovenox Full code reason for continued hospitalization:needs iv abx end date 10/12 Time Spent With Patient Time: Total time managing care of this patient today ____ minutes. Quality Stroke Does the patient have a stroke diagnosis?: No VTE Prior VTE?: No VTE Risk Level:: Medical - moderate - high VTE Device Contraindication: Treatment Not Indicated VTE Drug Contraindication: N/A - Med Ordered
[2022-10-08] MEDS: clonazePAM 0.5 MG TABLET PO ×2 (12:51→22:31)
[2022-10-08] MEDS: Enoxaparin Sodium 40 MG/0.4 ML SYRINGE SUBCUT (20:14)
[2022-10-08] MEDS: Atorvastatin Calcium 10 MG TABLET PO (20:15)
[2022-10-08] MEDS: Ertapenem Sodium 1 GM in 0.9 % Sodium Chloride 50 ML IV (20:16)
[2022-10-08] MEDS: diphenhydrAMINE HCL 50 MG/ML VIAL IVPUSH (20:25)
[2022-10-08] MEDS: Betamethasone Dip Aug 0.05% Cr 15 GM TUBE 1 APPL TOPICAL (22:31)
[2022-10-09] MEDS: oxyCODONE HCl Immed Release 5 MG TABLET PO ×2 (02:34→12:43)
[2022-10-09] MEDS: Acetaminophen 325 MG TABLET 650 MG PO (02:42)
[2022-10-09 04:00] VITALS: BP 120/56; PULSE 57; RESP 18; TEMP 36.4; O2SAT 95
[2022-10-09 07:53] VITALS: BP 112/75; PULSE 61; RESP 16; TEMP 36.1; O2SAT 99
[2022-10-09] MEDS: methADONE HCl 20 MG/2 ML ORAL.CONC 109 MG PO (09:47)
[2022-10-09] MEDS: Metoprolol Tartrate 12.5 MG HALFTAB PO (09:48)
[2022-10-09] MEDS: predniSONE 5 MG TABLET 15 MG PO (09:48)
[2022-10-09] MEDS: Cholecalciferol (Vitamin D3) 25 MCG TABLET PO (09:48)
[2022-10-09] MEDS: 0.9 % Sodium Chloride Flush 3 ML SYRINGE IVFLUSH (09:48)
[2022-10-09] MEDS: clonazePAM 0.5 MG TABLET PO (09:50)
[2022-10-09] MEDS: Nicotine Polacrilex 2 MG GUM BUCCAL (09:50)
[2022-10-09 11:19] VITALS: BP 120/74; PULSE 69; RESP 16; TEMP 36.7; O2SAT 98
--- NOTE | 2022-10-09 13:03 | PM.DS ---
DS: Providers Provider Date of Service: 10/09/22 Date of admission: 09/26/22 19:24 Primary care physician: Ilya De Leon MD Consults: 09/26/22 19:23 Consult to Cardiology Routine Consulting Provider: [facility] Cardiovascular Services Reason for consultation: new onset afib rvr 09/29/22 08:52 Consult to Infectious Diseases Routine Consulting Provider: [facility] Infectious Disease Reason for consultation: septic esbl ecoli DS: Diagnosis Discharge Diagnosis (1) Acute pyelonephritis: Status: Acute DS: Summary Hospital Course Hospital Course: from initial hpi: 57-year-old female with history of hyperlipidemia, migraines, and psoriasis who is a current 0.5 PPD smoker presents to the ED earlier today with her for evaluation of fatigue and weakness ongoing for several days.? She states that she has also been experiencing dysuria, increased urinary frequency, and urgency for the last 2 weeks though did experience a brief reprieve of symptoms with pyridium.? In the last few days she has also been experiencing nausea and vomiting and significant bilateral low back pain.? She has been experiencing palpitations and intermittent shortness of breath with increased anxiety but denies any orthopnea, PND, bilateral lower extremity edema, lightheadedness, or chest pain.? Denies history of similar symptoms.? She is a current 0.5 pack cigarette per day smoker but denies any illicit drug use or alcohol use. On arrival, patient found to be tachycardic to 172 without any hypotension.? At that time, she was mildly tachypneic to 22 and afebrile.? However patient did develop fever of 101.4 while in the ED. EKG showed atrial fibrillation with RVR, rate 155 with T-wave inversions noted in I and II, but no LISA or depression.? There is a leukocytosis of 13.4.? Renal function normal, electrolyte levels normal.? Lactic acid 1.6.? Hepatic function normal.? Troponin below detectable limits.? BNP 172.? TSH 1.47.? UA with 3+ leukocytes, negative nitrites, 2+ blood, 2+ protein, positive urinary sediment, and 1+ bacteria.? Chest x-ray showing diffuse interstitial thickening possibly related to pulmonary edema or atypical infectious versus inflammatory process.? There is also evidence of healing changes secondary to rib fractures on the right side her cannot exclude pulmonary nodule and outpatient CT recommended in 3-6 months.? In the ED, given 20 mg IV push diltiazem with minimal improvement in heart rate and patient was started on Cardizem drip.? She was also given 2 L IV NS bolus, 1 g IV ceftriaxone, and Tylenol with improvement of fever. hospital course: patient was admitted for sepsis due to acute pyelonephritis complicated by ESBL ecoli bacteremia. initiatally treated with rocephin, then changed to merem after cultures came back. sepsis resolved. will be discharged home since finished 11 day course of IV meropenem,on presentation patient had new onset afib with rvr. she spontaneously converted to NSR. started on metoprolol. likely this is lone afib from sepsis, was seen by cardio who felt patient would not benefit from anticoagulation at this time. for pulm nodule incidently seen, ct chest in 3 months is recommended. for hld was on statin. for obesity weight loss recommended. patient is feeling better and will be discharged home. Time Spent with Patient Time attestation: Total time managing care of this patient today ____ minutes. Discharge coordination time: Greater than 30 minutes Quality: Safe Use of Opioids Does Pt have an Active Cancer Diagnosis on the Problem List?: No Quality: Stroke Does the patient have a stroke diagnosis?: No Physical Exam Vital Signs: Vital Signs: Last Vital Signs Temp 98.0 F 10/09/22 11:19 Pulse 69 10/09/22 11:19 Resp 16 10/09/22 11:19 BP 120/74 10/09/22 11:19 Pulse Ox 98 10/09/22 11:19 O2 Del Method Room Air 10/09/22 11:19 BMI result Body Mass Index 38.4 Const: Other: GENERAL APPEARANCE:? awake alert x3,in no acute distress. NECK: no carotid bruit, no jugular venous distention. HEART: no murmurs, regular rate and rhythm. LUNGS:?clear to auscultation bilaterally. ABDOMEN: soft, non tender. EXTREMITIES: no edema. NEUROLOGIC: No gross deficits,? speech clear SKIN? dry scaly? skin with discoloration dorsum of hands and elbows ( history of psoriasis), (diffuse rash upper back chest both arms improving flare os psoraitic rash with antibiotics) Discharge Plan Discharge Anticipated Discharge Date/Time: 10/03/22 11:35 Patient Disposition: Home Health Service Discharge Diagnosis: sepsis uti, afib, esbl ecoli Referrals: Eliane Coates MD [Physician] - 1 Week Ilya De Leon MD [Primary Care Provider] - 1 Week Discharge Medications: New metoprolol tartrate 25 mg tablet 12.5 mg PO BID Qty: 30 0RF Continued ketoconazole 2 % shampoo 1 ea topical [id number] clonazepam 0.5 mg tablet 0.5 mg PO BID PRN (Reason: Anxiety) prednisone 5 mg tablet 15 mg PO DAILY tramadol 50 mg tablet 50 mg PO TID PRN (Reason: Pain) simvastatin 20 mg tablet 20 mg PO BEDTIME halobetasol propionate 0.05 % ointment 1 appl topical BID PRN (Reason: psoriasis) loratadine 10 mg tablet 10 mg PO DAILY PRN (Reason: Allergic Symptoms) cholecalciferol (vitamin D3) [Vitamin D3] 25 mcg (1,000 unit) capsule 25 mcg PO DAILY acetaminophen 500 mg Tablet 1,000 mg PO Q6H PRN (Reason: Pain) Pepto-Bismol Max St 525 mg/15 mL Suspension 525 mg PO Q30M PRN (Reason: diarrhea/indegestion) Rx Instructions: do not exceed 8 doses in a 24 hour period methadone 10 mg/mL Concentrate 109 mg PO DAILY Discharge Orders: Discharge Order (Routine); Ordered 10/09/22 Ordered By: Alana Juárez Diet: Advance to usual diet Activity on Discharge: As tolerated Stand Alone Forms: Patient Portal Discharge page Care Plan Goals: finished course of antibiotics no further antibiotic recommended Health Concerns: continue all home medications. Plan of Treatment: follow-up with primary care physician. Assessment: see above
--- NOTE | 2022-10-09 13:49 | MHC.CM.PN ---
PT TO DC HOME TODAY WITH NO SERVICES PT CAN ARRANGE TRANSPORT
== END 2022-10-09 16:22 | disposition home or self-care (01) | DRG 720 ==
LOC: HO.ED 18:30 → HO.EDOVER 19:40 → HO.IMC 22:25
PROVIDERS: Internal Medicine; Admitting Provider Physician Assistant; Emergency Provider Emergency Medicine; PCP Internal Medicine; Visit Provider Hospitalist
DX: A41.51 Sepsis due to Escherichia coli [E. coli] (principal); D84.9 Immunodeficiency, unspecified; E66.9 Obesity, unspecified; E78.5 Hyperlipidemia, unspecified; B37.31 Acute candidiasis of vulva and vagina; F11.20 Opioid dependence, uncomplicated; I48.91 Unspecified atrial fibrillation; F17.210 Nicotine dependence, cigarettes, uncomplicated; N10 Acute pyelonephritis; R91.1 Solitary pulmonary nodule; G43.909 Migraine, unspecified, not intractable, without status migrainosus; L40.9 Psoriasis, unspecified; Z16.12 Extended spectrum beta lactamase (ESBL) resistance; Z71.6 Tobacco abuse counseling; Z68.38 Body mass index [BMI] 38.0-38.9, adult; Z79.52 Long term (current) use of systemic steroids; Z87.891 Personal history of nicotine dependence; Z79.899 Other long term (current) drug therapy
CPT/HCPCS: 36415; 71045; 74176; 80048; 80076; 81001; 82947; 83605; 83690; 83735; 83880; 84443; 84484; 85025; 85027; 85610; 87040; 87077; 87086; 87088; 87186; 87205; 93005; 93306; 99285; J0131; J0696; J1200; J1335; J1650; J2060; J2185; J2270; Q9957

== ENCOUNTER 2022-09-26 19:24 | Outpatient (BNV) | payer OTHER, SELFPAY | END 2022-09-27 07:00 | PROVIDERS: Admitting Provider Physician Assistant; Emergency Provider Emergency Medicine; PCP Internal Medicine; Visit Provider Internal Medicine Cardiovascular Disease | DX: I35.1 Nonrheumatic aortic (valve) insufficiency (principal) | CPT/HCPCS: 93306 ==

== ENCOUNTER → 2022-09-26 19:24 | Outpatient (BNV) | payer OTHER, SELFPAY | PROVIDERS: Admitting Provider Physician Assistant; Emergency Provider Emergency Medicine; PCP Internal Medicine; Visit Provider Internal Medicine | DX: N39.0 Urinary tract infection, site not specified (principal); N10 Acute pyelonephritis | CPT/HCPCS: 99222 ==

== ENCOUNTER → 2022-09-26 19:24 | Outpatient (BNV) | payer OTHER, SELFPAY | PROVIDERS: Admitting Provider Physician Assistant; Emergency Provider Emergency Medicine; PCP Internal Medicine; Visit Provider Physician Assistant | DX: N10 Acute pyelonephritis (principal) | CPT/HCPCS: 99223; 99231; 99232; 99233; 99239; 99499 ==

== ENCOUNTER → 2022-09-26 19:24 | Outpatient (BNV) | payer OTHER, SELFPAY | PROVIDERS: Admitting Provider Physician Assistant; Emergency Provider Emergency Medicine; PCP Internal Medicine; Visit Provider Internal Medicine Cardiovascular Disease | DX: I48.91 Unspecified atrial fibrillation (principal); R94.31 Abnormal electrocardiogram [ECG] [EKG] | CPT/HCPCS: 93010; 99222 ==

== ENCOUNTER 2022-10-18 14:31 | Outpatient (AMB) | payer OTHER, SELFPAY ==
--- NOTE | 2022-10-18 14:32 | MHC.OFFVIS ---
Intake Vital Signs 10/18/22 14:42 BP 138/78 Pulse 70 Pulse Oximetry (%) 96 Intake Visit Reasons: Ref.[facility],Bacteremia Allergies Penicillins [PENICILLINS] Allergy (Mild, Verified 10/18/22 14:42) UNKNOWN aspirin [ASPIRIN] Allergy (Unknown, Verified 10/18/22 14:42) UNKNOWN ibuprofen [IBUPROFEN] Allergy (Unknown, Verified 10/18/22 14:42) UNKNOWN sumatriptan [From IMITREX] Allergy (Unknown, Verified 10/18/22 14:42) UNKNOWN From COMPAZINE Allergy (Unknown, Uncoded 10/18/22 14:42) UNKNOWN From IMITREX Allergy (Unknown, Uncoded 10/18/22 14:42) UNKNOWN HPI Ref.[facility],Bacteremia HPI Details 09/26 ESBL E coli bacteremia and urine She finished 14 days IV Ertapenem She has occasional lumbar and no flank pain, no hematuria and no fever PFSH Medical History (Updated 10/19/22 @ 00:10 by Eliane Coates MD) Hyperlipidemia Infection due to ESBL-producing Escherichia coli Migraine Social History Household Members: Spouse Housing: Apartment Patient Tobacco Use Status: Former Tobacco user Tobacco use type: Cigarette Cigarette Packs Per Day: 0.5 Cigarettes Per Day: 10 e-Cigarette/Vaping Use: Never Used service: No Review of Systems Const All systems reviewed & are unremarkable except as noted in HPI and below Physical Exam Vital Signs: Last Vital Signs Pulse 70 10/18/22 14:42 BP 138/78 10/18/22 14:42 Pulse Ox 96 10/18/22 14:42 Const General: cooperative Orientation/consciousness: patient oriented x3 HEENT Head: Yes normal to inspection Mouth: Normal oral and palatal mucosa present Eyes General: appearance normal, both eyes and all related structures Pupils: Equal, round and reactive pupils present Resp Effort & Inspection: normal respiratory effort Cardio Rate: regular rate Rhythm: regular rhythm GI Palpation (GI): Soft to palpation and nontender General: Yes no CVA tenderness Back/Spine/Pelvis Back: no CVA tenderness Skin General skin exam: no rashes or lesions noted Neuro General: patient oriented x3 Cranial nerves: Yes CN's II-XII intact bilaterally and Yes Equal, round and reactive pupils present Extrem General: Yes normal to inspection Psych Appearance: grossly normal Assessment & Plan Assessment & Plan (1) Infection due to ESBL-producing Escherichia coli: Comment: She finished acute treatment Code(s): A49.8 - Other bacterial infections of unspecified site; Z16.12 - Extended spectrum beta lactamase (ESBL) resistance Plan: No antibiotic prevention Methenamine acidify urine, one month and five refilla Diflucan 150 mg x 1yeast complaints See in six months Medications: New fluconazole (Diflucan) 150 mg PO ONCE 1 day 1 tab 0RF methenamine hippurate 1 g PO BID 30 days 60 tabs 5RF Coding Level of Care Code Est Pt Level 3 (89214) Diagnoses Infection due to ESBL-producing Escherichia coli A49.8; Z16.12
[2022-10-18 14:42] VITALS: BP 138/78; PULSE 70; O2SAT 96
== END 2022-10-18 15:47 | disposition home or self-care (01) ==
LOC: HO.HID 14:31
PROVIDERS: PCP Internal Medicine; Visit Provider Internal Medicine
DX: A49.8 Other bacterial infections of unspecified site (principal); Z16.12 Extended spectrum beta lactamase (ESBL) resistance
CPT/HCPCS: 99213

== ENCOUNTER → 2022-10-18 14:31 | Outpatient (BNVA) | payer OTHER, SELFPAY | PROVIDERS: PCP Internal Medicine; Visit Provider Internal Medicine | DX: Z16.12 Extended spectrum beta lactamase (ESBL) resistance (principal); A49.8 Other bacterial infections of unspecified site | CPT/HCPCS: 99212 ==

== ENCOUNTER 2022-11-01 13:06 | Outpatient (AMB) | payer OTHER, SELFPAY ==
--- NOTE | 2022-11-01 13:08 | A.OFFVIS_ITS ---
Intake Vital Signs 11/01/22 13:09 Height 5 ft 2 in Weight 208 lb 1.862 oz BMI 38.1 BP 94/62 Blood Pressure Location Lt brachial Position Sitting Pulse 84 Pulse Source Monitor Intake Visit Reasons: c dc fu Intake Note: [facility] [place] follow up with EKG. Staffing Mgr Required: No Accompanied by: Daughter Allergies Penicillins [PENICILLINS] Allergy (Mild, Verified 11/01/22 13:11) UNKNOWN aspirin [ASPIRIN] Allergy (Unknown, Verified 11/01/22 13:11) UNKNOWN ibuprofen [IBUPROFEN] Allergy (Unknown, Verified 11/01/22 13:11) UNKNOWN sumatriptan [From IMITREX] Allergy (Unknown, Verified 11/01/22 13:11) UNKNOWN From COMPAZINE Allergy (Unknown, Uncoded 11/01/22 13:11) UNKNOWN From IMITREX Allergy (Unknown, Uncoded 11/01/22 13:11) UNKNOWN Medication List - Last Reviewed 11/01/22 by ARNULFO Urban acetaminophen 1,000 mg PO Q6H PRN cholecalciferol (vitamin D3) (Vitamin D3) 25 mcg PO DAILY clonazepam 0.5 mg PO BID PRN halobetasol propionate 0.05% 1 appl topical BID PRN ketoconazole 2% 1 ea topical [id number] loratadine 10 mg PO DAILY PRN methadone 109 mg PO DAILY methenamine hippurate 1 g PO BID 30 days metoprolol tartrate 12.5 mg (1/2 x 25 mg) PO BID prednisone 15 mg PO DAILY simvastatin 20 mg PO BEDTIME tramadol 50 mg PO TID PRN HPI HPI Comments History of Present Illness Details 57-year-old female is here for follow-up. She was seen in the hospital in setting of pyelonephritis with paroxysmal atrial fibrillation. She reverted back to sinus rhythm on her own. Her chads Vasc score was low and she was not anticoagulated. It appears she was discharged home on metoprolol 12.5 mg twice a day. She has not been taking metoprolol. Blood pressure has been low. She has knee arthritis and wants to undergo surgery. She gets chest discomfort when she is going up stairs holding her cane. She is quite limited due to knee art hritis at this point and does not do significant activities due to pain. REPLACED BY [facility] Medical History (Updated 11/01/22 @ 13:33 by Zaire Alexander MD) Hyperlipidemia Infection due to ESBL-producing Escherichia coli Migraine Surgical History (Updated 11/01/22 @ 13:13 by ARNULFO Urban) H/O tubal ligation Family History Mother Breast cancer Father No problems noted. Social History (Updated 11/01/22 @ 13:14 by ARNULFO Urban) Household Members: Spouse Housing: Apartment Alcohol intake: never Patient Tobacco Use Status: Current everyday Tobacco user Tobacco use type: Cigarette Cigarette Packs Per Day: 0.5 Cigarettes Per Day: 3 Years Smoked: 25 +/- e-Cigarette/Vaping Use: Never Used service: No Review of Systems Const Denies weakness ENT Denies dizziness Card Denies chest pain, Denies chest pain with activity, Denies syncope, Denies rapid heart rate, Denies pedal edema, Denies edema, Denies leg edema, Denies lightheadedness, Denies palpitations, Denies dyspnea, Denies dyspnea on exertion and Denies orthopnea Resp Denies cough, Denies dyspnea and Denies dyspnea on exertion GI Denies hematochezia and Denies change in stool character Musc Denies abnormal gait, Denies muscle cramps, Denies muscle weakness, Denies numbness, Denies radiating pain into limb and Denies tingling Neuro Denies abnormal gait, Denies dizziness, Denies syncope, Denies numbness, Denies tingling and Denies weakness Endo Denies palpitations Physical Exam Vital Signs: Last Vital Signs Pulse 84 11/01/22 13:09 BP 94/62 11/01/22 13:09 BMI result Body Mass Index 38.1 GENERAL APPEARANCE: in no acute distress, pleasant. NECK: no carotid bruit, no jugular venous distention. SKIN: no suspicious lesions, warm and dry. HEART: no murmurs, regular rate and rhythm. LUNGS: clear to auscultation bilaterally. ABDOMEN: soft, nontender. EXTREMITIES: no edema. PERIPHERAL PULSES: equal. NEUROLOGIC: No gross deficits, AAO X 3 Office Procedures EKG Details: Sinus rhythm 84 beats per minute, normal axis, nonspecific ST changes, QTC 446 milliseconds. [id number], Complete Assessment & Plan Assessment & Plan (1) PAF (paroxysmal atrial fibrillation): Code(s): I48.0 - Paroxysmal atrial fibrillation (2) Preop cardiovascular exam: Code(s): Z01.810 - Encounter for preprocedural cardiovascular examination (3) Chest pain: Code(s): R07.9 - Chest pain, unspecified Plan Pleasant 57-year-old female here for follow-up. She was in the hospital when she presented with pyelonephritis and had paroxysmal atrial fibrillation. This was self-limiting. She was discharged home with metoprolol but appears she has not been taking that. Her blood pressure is borderline and I have advised her that she should not continued regardless. She is complaining of chest discomfort when she is climbing stairs. She has risk factors for coronary disease. I am going to arrange a Lexiscan for her. She will need stress testing before knee replacement in December and we can discuss perioperative cardiovascular risk assessment based on the stress test results. If stress test is abnormal then she will need further workup before the surgery. Metoprolol has been discontinued and as mentioned she was not taking it already. Does not need anticoagulation for atrial fibrillation currently. Thank you for allowing me to participate in the care of your patient. Please feel free to contact me if you have any questions. Orders: Orders CA lexiscan stress w yosvany Today R07.9 - Chest pain, unspecified Medications: Discontinued metoprolol tartrate Discontinued Reason: Doctor's Order 12.5 mg (1/2 x 25 mg) PO BID 30 tabs 0RF Coding Level of Care Code Est Pt Level 4 (42866) Diagnoses PAF (paroxysmal atrial fibrillation) I48.0 Preop cardiovascular exam Z01.810 Chest pain R07.9 CPT Codes EKG - CPT: 04500-[id number], Complete ([id number])
[2022-11-01 13:09] VITALS: BP 94/62; PULSE 84; BMI 38.1
== END 2022-11-01 13:36 | disposition home or self-care (01) ==
PROVIDERS: PCP Internal Medicine; Referring Provider Internal Medicine; Visit Provider Internal Medicine Cardiovascular Disease
DX: I48.0 Paroxysmal atrial fibrillation (principal); Z01.810 Encounter for preprocedural cardiovascular examination; R07.9 Chest pain, unspecified
CPT/HCPCS: 93010; 99214

== ENCOUNTER → 2022-11-01 13:06 | Outpatient (BNVA) | payer OTHER, SELFPAY | PROVIDERS: PCP Internal Medicine; Referring Provider Internal Medicine; Visit Provider Internal Medicine Cardiovascular Disease | DX: Z01.810 Encounter for preprocedural cardiovascular examination (principal); I48.0 Paroxysmal atrial fibrillation; R07.9 Chest pain, unspecified | CPT/HCPCS: 93005; 99212 ==

== ENCOUNTER 2022-11-02 10:47 | Emergency (ER) | payer OTHER, SELFPAY | END 2022-11-02 12:14 | disposition left against medical advice (07) | PROVIDERS: Emergency Provider Emergency Medicine; PCP Internal Medicine | DX: R51.9 Headache, unspecified (principal); M25.562 Pain in left knee; M25.561 Pain in right knee; M54.9 Dorsalgia, unspecified; I48.0 Paroxysmal atrial fibrillation; E78.5 Hyperlipidemia, unspecified; F17.210 Nicotine dependence, cigarettes, uncomplicated ==

== ENCOUNTER 2022-11-03 09:34 | Emergency (ER) | payer OTHER, SELFPAY ==
[2022-11-03 10:02] VITALS: BP 137/84; PULSE 70; RESP 18; TEMP 36.7; O2SAT 96; BMI 35.9
--- OUTSIDE RECORDS SUMMARY | 2022-11-03 10:34 | XMS_ITS | Continuity of Care Document ---
Author Name Unknown Organization [facility] Address Unknown Care Team Providers Care Asset Protection Agent Name Role Phone Ilya De Leon MD Primary Care Physician Encounter [facility] Date(s): 09/29/20 - 10/29/20 [facility] Allergies, Adverse Reactions, Alerts Substance Reaction Severity Status penicillin Rash Active aspirin Ibuprofen tight throat Rash Active morphine HAND SWELLING Active Toradol Rash Active Motrin tight throat Rash Active Imitrex Chest pain Active Compazine throat swells Active Reglan Agitated Active trimethoprim-sulfamethoxazole DS 1 Throa t Hives 17-MAY-2013 07:29:57<$> Unknown Active dehydroepiandrosterone 2 Chest pain Act julienne 1By phone, reported hives and throat locking up after taking doses of Bactrim repeatedly for several days 2DHEA Immunizations Given and Recorded Vaccine Date Status Refusal Reason influenza virus vaccine, inactivated 1 03/22/12 Gi lizbeth influenza virus vaccine, inactivated 2 01/30/11 Gi lizbeth 1Admin Note: ADMIN BY [facility] 2Admin Note: FLUVIRIN MULTIDOSE ADMINISTERED AT [facility] Medications acetaminophen 500 mg oral tablet 2 tablet = 1,000 mg, By Mouth, 3 times a day, PRN as needed for fever, not to exceed 3000 mg/day take scheduled three times a day, # 100 tablet, 1 Refills, Acute 12/26/20 11:44:00 EDT, 09/24/20 11:43:00 EDT, Tablet, [facility]/pharmacy #[id number], Partial fill u... Start Date: 09/24/20 Stop Date: 12/26/20 Status: Ordered Cavilon Emollient topical cream 1 application, Topically, 2 times a day, PRN for dry skin, # 454 Gm, 1 Refills, Maintenance, 09/30/19 16:26:00 EDT, Cream, [facility] 3, 1 application Topically 2 times a day,PRN:for dry skin, 158, cm, 08/27/19 13:02:00 EDT, Height, 76, kg... Start Date: 09/30/19 Status: Ordered cetirizine 10 mg oral tablet 1 tablet = 10 mg, By Mouth, Daily, for allergies. Do NOT take with claritin, # 30 tablet, 0 Refills, Maintenance, 07/23/20 11:37:00 EDT, Tablet, [facility], Partial fill upon patient request if the prescription is for a schedule II... Start Date: 07/23/20 Stop Date: 08/22/20 Status: Ordered Claritin 10 mg oral tablet 10 mg, 1, tablet, By Mouth, Daily, # 15 tablet, Refills 3, Tot. Refills 3, Maintenance, 11/06/18 8:33:38 EDT, Route to Pharmacy Electronically, [id number], [facility] Start Date: 11/06/18 Status: Ordered clonazePAM 0.5 mg oral tablet 1 tablet = 0.5 mg, By Mouth, Daily, # 28 tablet, 0 Refills, Maintenance, 10/18/20 11:03:00 EDT, Tablet, [facility], Partial fill upon patient request if the prescription is for a schedule II opioid drug., 158, cm, 10/18/20 10:46:00... Start Date: 10/18/20 Status: Ordered clonazePAM 0.5 mg oral tablet 1 tablet = 0.5 mg, By Mouth, Daily, # 1 tablet, 0 Refills, Maintenance, 10/17/20 9:00:00 EDT, Tablet, [facility] 3, Partial fill upon patient request if the prescription is for a scheduleII opioid drug., 158, cm, 09/24/20 10:45:00 EDT, He... Start Date: 10/17/20 Stop Date: 10/18/20 Status: Ordered diphenhydrAMINE 25 mg oral tablet 1 tablet = 25 mg, By Mouth, 3 times a day, PRN as needed for itching, Will cause drowsiness, # 30 tablet, 0 Refills, Maintenance, 07/16/20 15:11:00 EDT, Tablet, [facility], Partial fill upon patient request if the prescription is f... Start Date: 07/16/20 Status: Ordered Dovonex 0.005% topical cream 1 applicator, Topically, 2 times a day, # 60 Gm, 5 Refills, Maintenance, 07/07/19 17:30:00 EDT, [facility] 3, 1 applicator Topically 2 times a day,x30 days, 158, cm, 12/24/18 10:25:00 EDT, Height, 76, kg, 04/12/19 15:31:00 EST, Dry Weight Start Date: 07/07/19 Stop Date: 01/03/20 Status: Ordered Eucerin Plus topical lotion 1 application, Topically, 2 times a day, PRN for dry skin, # 180 mL, 0 Refills, Maintenance, 02/05/17 15:32:28, Lotion, 1 application Topically 2 times a day,PRN:for dry skin Start Date: 02/05/17 Status: Ordered fluticasone 50 mcg/inh nasal spray 1 sprays, Nares, Both, 2 times a day, in each nostril. for allergies, # 16 Gm, 0 Refills, Maintenance, 04/27/20 14:35:00 EST, [place], [facility] 3, Partial fill upon patient request if theprescription is for a schedule II opioid drug., 1... Start Date: 04/27/20 Stop Date: 05/27/20 Status: Ordered furosemide 20 mg oral tablet 1, tablet, By Mouth, Daily, # 30 tablet, Refills 3, Tot. Refills 0, Maintenance, 10/21/20 11:22:00 EDT, Route to Pharmacy Electronically, [id number], 158, cm, 10/18/20 10:46:00 EDT, Height, 95.4, kg, 10/16/20 10:11:00 EDT, Dry Weight Start Date: 10/21/20 Status: Ordered hydrocortisone 1% topical cream 1 application, Topically, 2 times a day, Apply to rash areas, # 60 Gm, 3 Refills, Maintenance, 06/04/19 14:52:00 EDT, Cream, [facility], 1 application Topically 2 times a day,Instr:Apply to rash areas, 158, cm, 12/24/18 10:25:00 EDT, Hei... Start Date: 06/04/19 Status: Ordered left soft knee brace left soft knee brace, See Instructions, # 1 each, Refills 0, Tot. Refills 0, Maintenance, arthritis, 10/18/20 10:59:00 EDT, Supply Start Date: 10/18/20 Status: Ordered lidocaine 5% topical ointment 1 application, Topically, 3 times a day, wash hands thoroughly after application, # 50 Gm, 2 Refills, Acute 12/26/20 11:39:00 EDT, 09/24/20 11:38:00 EDT, Ointment, [facility]/pharmacy #[id number], Partial fill upon patient request if the prescription is for a sche... Start Date: 09/24/20 Stop Date: 12/26/20 Status: Ordered loratadine 10 mg oral tablet 10 mg, 1, tablet, By Mouth, Daily, # 30 tablet, Refills 0, Tot. Refills 0, Maintenance, 09/01/18 18:07:38 EDT, Print Requisition Start Date: 09/01/18 Status: Ordered Methadone By Mouth, 0 Refills, Maintenance Start Date: 12/25/11 Status: Ordered mupirocin 2% topical cream 1 application, Topically, 3 times a day, # 30 Gm, 2 Refills, Maintenance, 10/27/20 12:02:00 EDT, Cream, [facility]/pharmacy #[id number], Partial fill upon patient request if the prescription is for a schedule II opioid drug., 1 application Topically 3 times a day,... Start Date: 10/27/20 Status: Ordered Nizoral 2% topical shampoo See Instructions, 1 applicator Topically 3x per week, # 120 mL, 3 Refills, Soft Stop, 08/12/20 10:30:00 EDT, [id number], 1 applicator Topically 3x per week, 158, cm, 07/23/20 11:13:00 EDT, Height, 82, kg, 07/21/20 20:18:00 EDT, Dry Weight Start Date: 08/12/20 Status: Ordered permethrin 5% topical cream 1 application, Topically, Once, to skin head to feet, remove by washing after 8 to 14 hours, # 60 Gm, 0 Refills, Soft Stop, 07/27/20 11:50:00 EDT, Cream, [facility], 1 applicationTopically Once,Instr:to skin head to feet, remove b... Start Date: 07/27/20 Status: Ordered predniSONE 5 mg oral tablet 1 tablet = 5 mg, By Mouth, 3 times a day, may fill 10/29/20 for 14 days, # 42 tablet, 0 Refills, Maintenance, 10/29/20 12:47:00 EDT, Tablet, [facility]/pharmacy #[id number], Partial fill upon patient request if the prescription is for a schedule II opioid drug., 15... Start Date: 10/29/20 Stop Date: 11/12/20 Status: Ordered selenium sulfide 2.5% topical lotion See Instructions, APPLY TOPICALLY TO AFFECTED AREA EVERY DAY FOR 7 DAYS, # 120 mL, 3 Refills, Soft Stop, 07/23/20 11:40:00 EDT, [facility], 7, APPLY TOPICALLY TO AFFECTED AREA EVERY DAY FOR 7 DAYS, 158, cm, 07/23/20 11:13:00 EDT, H... Start Date: 07/23/20 Status: Ordered Shingrix intramuscular injection = 0.5 mL, Intramuscular, Once, repeat dose in 2 to 6 months, # 2 each, 0 Refills, Soft Stop, 05/27/20 11:03:00 EDT, Powder, [facility], Partial fill upon patient request if the prescription is for a schedule II opioid drug., 0.5 mL... Start Date: 05/27/20 Status: Ordered shower grab bar shower grab bar, See Instructions, # 1 each, Refills 0, Tot. Refills 0, Maintenance, for balance problems, 01/22/19 16:12:36 EST, Compound Start Date: 01/22/19 Status: Ordered terbinafine 1% topical cream 1 application, Topically, Daily, use for 2 weeks, # 24 Gm, 1 Refills, Maintenance, 03/10/20 18:21:00 EST, Cream, [facility] 3, Partial fill upon patient request if the prescription is fora schedule II opioid drug., 1 application Topically... Start Date: 03/10/20 Status: Ordered Vistaril pamoate 50 mg oral capsule 1 capsule = 50 mg, By Mouth, 3 times a day, PRN for anxiety, # 40 capsule, 1 Refills, Maintenance, 12/20/17 18:29:50 EDT, Capsule Start Date: 12/20/17 Status: Ordered Voltaren 1% topical gel 1 application, Topically, 4 times a day, for knee pain, # 100 Gm, 0 Refills, Maintenance, 09/24/20 11:47:00 EDT, Gel, [facility]/pharmacy #[id number], 1 application Topically 4 times a day,Instr:for knee pain, 158, cm, 09/24/20 10:45:00 EDT, Height, 82, kg, ... Start Date: 09/24/20 Status: Ordered Problem List Condition Effective Dates Status Health Status Inform ant Opioid type dependence, continuous(Confirmed) 1 Active 1Client had been seen by Jazz Francois at [facility]. Client has no-showed to last appt and today.She will be targetted for closing if she does not responde to correspondence that will be sent on 02/14/13 Social History Social History Type Response Smoking Status 5-9 cigarettes (betw een 1/4 to 1/2 pack)/day in last 30 days entered on: 09/08/20 Sex
--- OUTSIDE RECORDS SUMMARY | 2022-11-03 10:34 | XMS_ITS | Continuity of Care Document ---
Author Name Unknown Organization [facility] Address [address] [place] [address]- Care Team Providers Care Medical Reception Name Role Phone Ilya De Leon MD Primary Care Physician Encounter [facility] Date(s): 08/25/19 - 09/27/19 [facility] [address] [place] [address]- [facility] Attending Physician: Not on Staff, Attending MD Allergies, Adverse Reactions, Alerts Substance Reaction Severity [...] 01/30/11 Gi lizbeth 1Admin Note: [facility] 2Admin Note: FLUVIRIN MULTIDOSE ADMINISTERED AT [facility] Medications Cavilon Emollient topical cream 1 application, Topically, 2 times a day, PRN for dry skin, # 454 Gm, 0 Refills, Maintenance, 07/07/19 17:30:00 EDT, Cream, [facility], 1 application Topically 2 times a day,PRN:for dry skin, 158, cm, 12/24/18 10:25:00 EDT, Height, 76, kg... Start Date: 07/07/19 Status: Ordered Claritin 10 mg oral tablet 10 mg, 1, tablet, By Mouth, Daily, # 15 tablet, Refills 3, Tot. Refills 3, Maintenance, 11/06/18 8:33:38 EDT, Route to Pharmacy Electronically, [id number], [facility] Start Date: 11/06/18 Status: Ordered Dovonex 0.005% topical cream 1 applicator, Topically, 2 times a day, # 60 Gm, 5 Refills, Maintenance, 07/07/19 17:30:00 EDT, [facility] 3, 1 applicator Topically 2 times a day,x30 days, 158, cm, 12/24/18 10:25:00 EDT, Height, 76, kg, 04/12/19 15:31:00 EST, Dry Weight Start Date: 07/07/19 Stop Date: 01/03/20 Status: Ordered doxycycline hyclate 100 mg oral tablet 1 tablet = 100 mg, By Mouth, 2 times a day, for 10 days, # 20 tablet, 0 Refills, Acute 09/29/19 16:20:00 EDT, 09/19/19 16:20:00 EDT, Tablet, [facility]/pharmacy #[id number], 158, cm, 08/27/19 13:02:00 EDT, Height, 76, kg, 04/12/19 15:31:00 EST, Dry Weight Start Date: 09/19/19 Stop Date: 09/29/19 Status: Ordered Eucerin Plus topical lotion 1 application, Topically, 2 times a day, PRN for dry skin, # 180 mL, 0 Refills, Maintenance, 02/05/17 15:32:28, Lotion, 1 application Topically 2 times a day,PRN:for dry skin Start Date: 02/05/17 Status: Ordered fluconazole 150 mg oral tablet See Instructions, 1 tablet By Mouth Every week on Sunday, # 3 tablet, 0 Refills, Maintenance, 05/10/18 15:22:12 EST, Tablet Start Date: 05/10/18 Status: Ordered hydrocortisone 1% topical cream 1 application, Topically, 2 times a day, Apply to rash areas, # 60 Gm, 3 Refills, Maintenance, 06/04/19 14:52:00 EDT, Cream, [facility], 1 application Topically 2 times a day,Instr:Apply to rash areas, 158, cm, 12/24/18 10:25:00 EDT, Hei... Start Date: 06/04/19 Status: Ordered Lexapro 10 mg oral tablet 1 tablet = 10 mg, By Mouth, Daily, for the first 7 days take 1/2 tablet q d only, # 30 tablet, 11 Refills, Maintenance, 01/24/18 13:37:47 EST, Tablet Start Date: 01/24/18 Status: Ordered loratadine 10 mg oral tablet 10 mg, 1, tablet, By Mouth, Daily, # 30 tablet, Refills 0, Tot. Refills 0, Maintenance, 09/01/18 18:07:38 EDT, Print Requisition Start Date: 09/01/18 Status: Ordered LORazepam 1 mg oral tablet See Instructions, TAKE ONE-HALF TABLET BY MOUTH IN THE MORNING AND TAKE ONE (WHOLE) TABLET AT BEDTIME NEEDED FOR ANXIETY FOR 28 DAYS Can fill 09/17, # 42 tablet, 0 Refills, Soft Stop, 09/18/19 16:47:00 EDT, [facility], 158, cm, ... Start Date: 09/18/19 Status: Ordered Medrol Dosepak 4 mg oral tablet per label intructions, By Mouth, Once, as on label, # 1 each, 0 Refills, Soft Stop, 08/11/19 20:08:00 EDT, [facility], 158, cm, 12/24/18 10:25:00 EDT, Height, 76, kg, 04/12/19 15:31:00 EST, Dry Weight Start Date: 08/11/19 Status: Ordered Medrol Dosepak 4 mg oral tablet 1 pack/packet, By Mouth, Once, # 21 tablet, 0 Refills, Soft Stop, 10/04/18 18:15:40 EDT, Tablet Start Date: 10/04/18 Status: Ordered Methadone By Mouth, 0 Refills, Maintenance Start Date: 12/25/11 Status: Ordered Nizoral 2% topical shampoo See Instructions, 1 applicator Topically 3x per week, # 120 mL, 0 Refills, Soft Stop, 08/27/19 14:17:00 EDT, [facility], 1 applicator Topically 3x per week, 158, cm, 08/27/19 13:02:00 EDT, Height, 76, kg, 04/12/19 15:31:00 EST, Dry... Start Date: 08/27/19 Status: Ordered permethrin 5% topical cream 1 application, Topically, Once, to skin head to feet, remove by washing after 8 to 14 hours, # 60 Gm, 0 Refills, Soft Stop, 08/08/18 15:08:37 EDT, Cream Start Date: 08/08/18 Status: Ordered selenium sulfide 2.5% topical lotion See Instructions, APPLY TOPICALLY TO AFFECTED AREA EVERY DAY FOR 7 DAYS, # 120 mL, 3 Refills, Soft Stop, 09/23/19 15:13:00 EDT, [facility], 7, APPLY TOPICALLY TO AFFECTED AREA EVERY DAYFOR 7 DAYS, 158, cm, 08/27/19 13:02:00 EDT, Height,... Start Date: 09/23/19 Status: Ordered shower grab bar shower grab bar, See Instructions, # 1 each, Refills 0, Tot. Refills 0, Maintenance, for balance problems, 01/22/19 16:12:36 EST, Compound Start Date: 01/22/19 Status: Ordered Ultravate 0.05% ointment 1 application, Topically, 2 times a day, # 60 Gm, 5 Refills, Soft Stop, 12/20/18 10:55:03 EDT, Ointment, 1 application Topically 2 times a day Start Date: 12/20/18 Status: Ordered Vistaril pamoate 50 mg oral capsule 1 capsule = 50 mg, By Mouth, 3 times a day, PRN for anxiety, # 40 capsule, 1 Refills, Maintenance, 12/20/17 18:29:50 EDT, Capsule Start Date: 12/20/17 Status: Ordered Voltaren 1% topical gel 1 application, Topically, 4 times a day, # 100 Gm, 0 Refills, Maintenance, 03/23/18 16:46:25 EST, Gel Start Date: 03/23/18 Status: Ordered ZyrTEC 10 mg oral tablet 1 tablet = 10 mg, By Mouth, Daily, # 7 tablet, 0 Refills, Maintenance, 04/06/19 20:19:00 EST, Tablet, [facility], 158, cm, 12/24/18 10:25:00 EDT, Height, 75.5, kg, 04/06/19 17:01:00 EST, Dry Weight Start Date: 04/06/19 Stop Date: 04/13/19 Status: Ordered Problem List Condition Effective Dates Status Health Status Inform ant Opioid type dependence, continuous(Confirmed) 1 Active 1Client had been seen by Jazz Francois at [facility]. Client has no-showed to last appt and today.She will be targetted for closing if she does not responde to correspondence that will be sent on 02/14/13 Social History Social History Type Response Smoking Status 10 or more cigarette s (1/2 pack or more)/day in last 30 days entered on: 01/24/18 Sex
--- OUTSIDE RECORDS SUMMARY | 2022-11-03 10:34 | XMS_ITS | Continuity of Care Document ---
Author Name Unknown Organization [facility] Address Unknown Care Team Providers Care Lead Based Paint Technician Name Role Phone Haley NEWMAN, Ilya Primary Care Physician Encounter [facility] Date(s): 05/02/21 - 06/04/21 [facility] Attending Physician: Robert Rosario MD, I Admitting Physician: Robert Rosario MD, I Allergies, Adverse Reactions, Alerts Substance Reaction Severity Status penicillin Rash Active aspirin Ibuprofen tight throat Rash Active morphine HAND SWELLING Active Motrin tight throat Rash Active Reglan Agitated Active Imitrex Chest pain Active Toradol Rash Active Compazine throat swells Active trimethoprim-sulfamethoxazole DS 1 Throa t Hives 17-MAY-2013 07:29:57<$> Unknown Active dehydroepiandrosterone 2 Chest pain Act julienne 1By phone, reported hives and throat locking up after taking doses of Bactrim repeatedly for several days 2DHEA Immunizations Given and Recorded Vaccine Date Status Refusal Reason tetanus/diphtheria/pertussis, acel(Tdap) 02/14/17 Recorded influenza virus vaccine, inactivated 1 03/22/12 Gi lizbeth influenza virus vaccine, inactivated 2 01/30/11 Gi lizbeth 1Admin Note: ADMIN BY [facility] 2Admin Note: FLUVIRIN MULTIDOSE ADMINISTERED AT [facility] Medications capsaicin 0.025% topical cream See Instructions, APPLY TO AFFECTED AREA TWICE A DAY, # 60 Gm, 1 Refills, [id number], 30, APPLY TO AFFECTED AREA TWICE A DAY, 155, cm, 05/30/21 15:34:00 EDT, Height, 95.9, kg, 12/05/20 10:08:00 EDT, Dry Weight Start Date: 05/31/21 Status: Ordered Cavilon Emollient topical cream 1 application, Topically, 2 times a day, PRN for dry skin, # 454 Gm, 1 Refills, Maintenance, 09/30/19 16:26:00 EDT, Cream, [facility], 1 application Topically 2 times a day,PRN:for dry skin, 158, cm, 08/27/19 13:02:00 EDT, Height, 76, kg... Start Date: 09/30/19 Status: Ordered Claritin 10 mg oral tablet 10 mg, 1, tablet, By Mouth, Daily, # 15 tablet, Refills 3, Tot. 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 De Leon, 155, cm, 05/03/21 14:39:00 EST, Height, 95.9, kg, 12/05/20 10:08:00 EDT, Dry Weight Start Date: 05/30/21 Stop Date: 06/13/21 Status: Ordered Dovonex 0.005% topical cream 1 applicator, Topically, 2 times a day, # 60 Gm, 5 Refills, Maintenance, 07/07/19 17:30:00 EDT, [facility], 1 applicator Topically 2 times a day,x30 days, 158, cm, 12/24/18 10:25:00 EDT, Height, 76, kg, 04/12/19 15:31:00 EST, Dry Weight Start Date: 07/07/19 Stop Date: 01/03/20 Status: Ordered fluticasone 50 mcg/inh nasal spray 1 sprays, Nares, Both, 2 times a day, in each nostril. for allergies, # 16 Gm, 0 Refills, Maintenance, 04/27/20 14:35:00 EST, [place], [facility], Partial fill upon patient request if theprescription is for a schedule II opioid drug., 1... Start Date: 04/27/20 Stop Date: 05/27/20 Status: Ordered furosemide 20 mg oral tablet 1, tablet, By Mouth, Daily, # 30 tablet, Refills 3, Tot. Refills 3, Maintenance, 04/18/21 12:11:00 EST, Route to Pharmacy Electronically, [facility]/pharmacy #[id number], 155, cm, 04/18/21 10:12:00 EST, Height, 95.9, kg, 12/05/20 10:08:00 EDT, Dry Weight Start Date: 04/18/21 Status: Ordered halobetasol 0.05% topical ointment See Instructions, APPLY A THIN FILM TO THE AFFECTED SKIN AND RUB IN GENTLY AND COMPLETELY TWICE A DAY, # 50 Gm, 1 Refills, [id number], 30, APPLY A THIN FILM TO THE AFFECTED SKIN AND RUB IN GENTLY AND COMPLETELY TWICE A DAY, 155, cm, 12/05/20 10:0... Start Date: 03/15/21 Status: Ordered ketoconazole 2% topical shampoo See Instructions, APPLY 1 APPLICATOR TOPICALLY 3X PER WEEK, # 120 mL, 3 Refills, [id number], 30, APPLY 1 APPLICATOR TOPICALLY 3X PER WEEK, 155, cm, 03/17/21 7:53:00 EST, Height, 95.9, kg, 12/05/20 10:08:00 EDT, Dry Weight Start Date: 03/21/21 Status: Ordered Methadone By Mouth, 0 Refills, Maintenance Start Date: 12/25/11 Status: Ordered mupirocin 2% topical cream 1 application, Topically, 3 times a day, # 30 Gm, 2 Refills, Maintenance, 03/08/21 10:26:00 EST, Cream, [facility]/pharmacy #[id number], Partial fill upon patient request if the prescription is for a schedule II opioid drug., 1 application Topically 3 times a day,... Start Date: 03/08/21 Status: Ordered permethrin 5% topical cream 1 application, Topically, Once, to skin head to feet, remove by washing after 8 to 14 hours, # 60 Gm, 0 Refills, Soft Stop, 07/27/20 11:50:00 EDT, Cream, [facility], 1 applicationTopically Once,Instr:to skin head to feet, remove b... Start Date: 07/27/20 Status: Ordered predniSONE 10 mg oral tablet 1 tablet, By Mouth, Daily, please fill early, may fill 06/03, # 14 tablet, 0 Refills, 05/31/21 8:50:00 EDT, [facility]/pharmacy #[id number], 155, cm, 05/30/21 15:34:00 EDT, Height, 95.9, kg, 12/05/20 10:08:00 EDT,Dry Weight Start Date: 05/31/21 Status: Ordered selenium sulfide 2.5% topical lotion See Instructions, APPLY TOPICALLY TO AFFECTED AREA EVERY DAY FOR 7 DAYS, # 120 mL, 3 Refills, Soft Stop, 04/26/21 18:07:00 EST, [facility]/pharmacy #[id number], 7, APPLY TOPICALLY TO AFFECTED AREA EVERY DAY FOR 7DAYS, 155, cm, 04/18/21 10:12:00 EST, Height, 95.9,... Start Date: 04/26/21 Status: Ordered tiZANidine 2 mg oral tablet 1, tablet, By Mouth, 3 times a day, # 60 tablet, Refills 0, Route to Pharmacy Electronically, [id number], 155, cm, 05/03/21 14:39:00 EST, Height, 95.9, kg, 12/05/20 10:08:00 EDT, Dry Weight Start Date: 05/09/21 Status: Ordered Problem List Condition Effective Dates Status Health Status Inform ant Anxiety(Confirmed) Active Opioid type dependence, continuous(Confirmed) 1 Active Osteoarthritis of left knee(Confirmed) Active Psoriasis(Confirmed) Active Severe obesity(Confirmed) Active 1Client had been seen by Jazz Francois at [facility]. Client has no-showed to last appt and today.She will be targetted for closing if she does not responde to correspondence that will be sent on 02/14/13 Social History Social History Type Response Smoking Status 10 or more cigarette s (1/2 pack or more)/day in last 30 days entered on: 04/18/21 Sex
--- OUTSIDE RECORDS SUMMARY | 2022-11-03 10:34 | XMS_ITS | Continuity of Care Document ---
Author Name Unknown Organization [facility] Address [address] [place] [address]- Care Team Providers Care Stone Crusher Operator Name Role Phone Ilya De Leon MD Primary Care Physician Encounter [facility] Date(s): 05/31/22 - 07/19/22 [facility]/[address] [address]- Attending Physician: Ilya De Leon MD Admitting Physician: Ilya De Leon MD Referring Physician: Ilya De Leon MD Allergies, Adverse Reactions, Alerts Substance Reaction Severity Status penicillin Rash Active Motrin tight throat Rash Active Compazine throat swells Active Reglan Agitated Active Imitrex Chest pain Active aspirin Ibuprofen tight throat Rash Active morphine HAND SWELLING Active Toradol Rash Active trimethoprim-sulfamethoxazole DS 1 Throa t Hives [...] virus vaccine, inactivated 2 01/30/11 Gi lizbeth influenza virus vaccine, inactivated 02/06/10 [facility] 1Admin Note: ADMIN BY [facility] 2Admin Note: FLUVIRIN MULTIDOSE ADMINISTERED AT [facility] Medications acetaminophen 650 mg oral tablet, extended release 2 tablet = 1,300 mg, By Mouth, Every 8 hours, # 100 tablet, 1 Refills, Maintenance, 06/29/21 15:10:00 EDT, ER Tablet, [facility] #[id number], Partial fill upon patient request if the prescription is for a schedule II opioid drug., 155, cm, 05/30/21 15:34:... Start Date: 06/29/21 Status: Ordered capsaicin 0.025% topical cream See Instructions, APPLY TO AFFECTED AREA TWICE A DAY, # 60 Gm, 1 Refills, [id number], 30, APPLY TO AFFECTED AREA TWICE A DAY, 155, cm, 05/30/21 15:34:00 EDT, Height, 95.9, kg, 12/05/20 10:08:00 EDT, Dry Weight Start Date: 05/31/21 Status: Ordered Cavilon Emollient topical cream 1 application, Topically, 2 times a day, PRN for dry skin, # 454 Gm, 1 Refills, Maintenance, 09/30/19 16:26:00 EDT, Cream, [facility], 1 application Topically 2 times a day,PRN:for dry skin, 158, cm, 08/27/19 13:02:00 EDT, Height, 76, kg... Start Date: 09/30/19 Status: Ordered clonazePAM 0.5 mg oral tablet 1 tablet = 0.5 mg, By Mouth, Daily at bedtime, May fill 05/26/22 and weekly on Fridays for 3 weeks, # 7 tablet, 2 Refills, Maintenance, 05/24/22 10:44:00 EDT, Tablet, [facility], PULL TAB DEALER reviewed, covering for Dr. De Leon, 155, cm, 01/10... Start Date: 05/24/22 Stop Date: 06/14/22 Status: Ordered clonazePAM 0.5 mg oral tablet 1 tablet = 0.5 mg, By Mouth, Daily at bedtime, May fill 04/14/22 and weekly on Fridays for3 weeks, # 7 tablet, 2 Refills, Maintenance, 04/13/22 10:13:00 EST, Tablet, [facility], PMPreviewed, covering for Dr. De Leon, 155, cm, 01/23/... Start Date: 04/13/22 Stop Date: 05/04/22 Status: Ordered clonazePAM 0.5 mg oral tablet 1 tablet = 0.5 mg, By Mouth, 2 times a day, Increaseddose May weekly on Fridays for 3 weeks starting on 07/21, # 14 tablet, 2 Refills, Maintenance, 07/19/22 12:38:00 EDT, Tablet, [facility], PULL TAB DEALER reviewed, covering for Dr. De Leon, 1... Start Date: 07/19/22 Stop Date: 08/09/22 Status: Ordered coal tar topical 1% lotion See Instructions, applyTopically Daily at bedtime, # 120 mL, 3 Refills, Maintenance, 10/26/21 15:45:00 EDT, [facility], Partial fill upon patient request if the prescription is for a schedule II opioid drug., applyTopically Daily a... Start Date: 10/26/21 Status: Ordered Dovonex 0.005% topical cream 1 applicator, Topically, 2 times a day, # 60 Gm, 5 Refills, Maintenance, 05/24/22 12:41:00 EDT, [facility], 1 applicator Topically 2 times a day,x30 days, 155, cm, 01/23/22 14:00:00 EST, Height, 106.5, kg, 09/14/21 9:38:00 EDT, Dry... Start Date: 05/24/22 Stop Date: 11/20/22 Status: Ordered Eucerin Unscented topical lotion See Instructions, apply as frequently as needed, # 1 each, 0 Refills, Maintenance, 09/28/21 12:23:00 EDT, [facility], Partial fill upon patient request if the prescription is for a schedule II opioid drug., apply as frequently as n... Start Date: 09/28/21 Status: Ordered fluticasone 50 mcg/inh nasal spray 1 sprays, Nares, Both, 2 times a day, in each nostril. for allergies, # 16 Gm, 0 Refills, Maintenance, 04/27/20 14:35:00 EST, [place], [facility] upon patient request if theprescription is for a schedule II opioid drug., 1... Start Date: 04/27/20 Stop Date: 05/27/20 Status: Ordered halobetasol 0.05% topical ointment See Instructions, APPLY A THIN FILM TO THE AFFECTED SKIN AND RUB IN GENTLY AND COMPLETELY TWICE A DAY, # 50 Gm, 1 Refills, Maintenance, 07/17/22 10:18:00 EDT, [facility], 30, APPLY A THIN FILM TO THE AFFECTED SKIN AND RUB IN GENTLY... Start Date: 07/17/22 Status: Ordered ketoconazole 2% topical shampoo See Instructions, APPLY 1 APPLICATOR TOPICALLY 3X PER WEEK, # 120 mL, 3 Refills, Maintenance, 05/16/22 8:48:00 EST, [id number], 30, APPLY 1 APPLICATOR TOPICALLY 3X PER WEEK, 155, cm, 01/23/22 14:00:00 EST, Height, 106.5, kg, 09/14/21 9:38:00 EDT,... Start Date: 05/16/22 Status: Ordered loratadine 10 mg oral tablet 1, tablet, By Mouth, Daily, # 30 tablet, Refills 5, Tot. Refills 5, Maintenance, 07/04/22 8:39:00 EDT, [id number], 155, cm, 01/23/22 14:00:00 EST, Height, 106.5, kg, 09/14/21 9:38:00 EDT, Dry Weight Start Date: 07/04/22 Status: Ordered Methadone By Mouth, 0 Refills, Maintenance Start Date: 12/25/11 Status: Ordered mupirocin 2% topical cream 1 application, Topically, 3 times a day, # 30 Gm, 2 Refills, Maintenance, 03/08/21 10:26:00 EST, Cream, [id number], Partial fill upon patient request if the prescription is for a schedule II opioid drug., 1 application Topically 3 times a day,... Start Date: 03/08/21 Status: Ordered permethrin 5% topical cream 1 application, Topically, Once, to skin head to feet, remove by washing after 8 to 14 hours, # 60 Gm, 0 Refills, Soft Stop, 07/27/20 11:50:00 EDT, Cream, [facility], 1 applicationTopically Once,Instr:to skin head to feet, remove b... Start Date: 07/27/20 Status: Ordered predniSONE 10 mg oral tablet See Instructions, May fill 06/16/22 and weekly on Fridays for 3 weeks, # 14 tablet, 2 Refills, 07/04/22 13:28:00 EDT, [facility], 155, cm, 01/23/22 14:00:00 EST, Height, 106.5, kg, 09/14/21 9:38:00 EDT, Dry Weight Start Date: 07/04/22 Status: Ordered predniSONE 10 mg oral tablet See Instructions, May fill 05/26/22 and weekly on Fridays for 3 weeks, # 14 tablet, 2 Refills, 05/24/22 10:44:00 EDT, [facility], 155, cm, 01/23/22 14:00:00 EST, Height, 106.5, kg,09/14/21 9:38:00 EDT, Dry Weight Start Date: 05/24/22 Status: Ordered predniSONE 5 mg oral tablet See Instructions, latest dosage 15 mg daily, now to take 5mg tablet, 3 daily. May fill Fridays starting 07/21/22, # 21 tablet, 2 Refills, Maintenance, 07/19/22 12:40:00 EDT, [facility], Partial fill upon patient request if the presc... Start Date: 07/19/22 Status: Ordered selenium sulfide 2.5% topical lotion See Instructions, APPLY TOPICALLY TO AFFECTED AREA EVERY DAY FOR 7 DAYS, # 120 mL, 3 Refills, Soft Stop, 10/26/21 15:43:00 EDT, [facility], 7, APPLY TOPICALLY TO AFFECTED AREA EVERY DAY FOR 7 DAYS, 155, cm, 09/28/21 12:06:00 EDT, H... Start Date: 10/26/21 Status: Ordered tiZANidine 2 mg oral tablet 1, tablet, By Mouth, 3 times a day, # 60 tablet, Refills 0, Route to Pharmacy Electronically, [facility] [id number], 155, cm, 05/03/21 14:39:00 EST, Height, 95.9, kg, 12/05/20 10:08:00 EDT, Dry Weight Start Date: 05/09/21 Status: Ordered traMADol 50 mg oral tablet 1 tablet = 50 mg, By Mouth, Every 8 hours, PRN Pain , Severe, for 7 days, May fill 07/21/22 and weekly on Fridays for 3 weeks, # 21 tablet, 2 Refills, Acute 08/09/22 12:38:00 EDT, 07/19/22 12:38:00 EDT, Tablet, [facility], [facility]... Start Date: 07/19/22 Stop Date: 08/09/22 Status: Ordered Problem List Condition Confirmation Course Effective Dates Status H ealth Status Informant Anxiety Confirmed Active Opioid type dependence, continuous 1 Confirmed Active Osteoarthritis of left knee Confirmed Active Psoriasis Confirmed Active Severe obesity Confirmed Active 1Client had been seen by Jazz Francois at [facility]. Client has no-showed to last appt and today.She will be targetted for closing if she does not responde to correspondence that will be sent on 02/14/13 Social History Social History Type Response Smoking Status 10 or more cigarette s (1/2 pack or more)/day in last 30 days entered on: 04/18/21 Sex Patient Care team information Care Team Personnel Name: Ilya De Leon MD Position: [facility] Primary Care Physician Member Role: PCP Address: Address: [address] [place] [id number]- Care Team Related Persons Name: JD ALVAREZ Address: home [address] [place] [id number]
--- OUTSIDE RECORDS SUMMARY | 2022-11-03 10:34 | XMS_ITS | Continuity of Care Document ---
Author Name Unknown Organization [facility] Address [address] [place] [address]- Care Team Providers Care Pharmaceutical Worker Name Role Phone Ilya De Leon MD Primary Care Physician Encounter [facility] Date(s): 08/18/22 - 09/17/22 [facility]/[address] [address]- [place] Allergies, Adverse Reactions, Alerts Substance Reaction Severity Status penicillin Rash Active aspirin Ibuprofen tight throat Rash Active dehydroepiandrosterone 1 Chest pain Act julienne Imitrex Chest pain Active morphine HAND SWELLING Active Toradol Rash Active Motrin tight throat Rash Active Compazine throat swells Active Reglan Agitated Active trimethoprim-sulfamethoxazole DS 2 Throa t Hives 17-MAY-2013 07:29:57<$> Unknown Active 1DHEA 2By phone, reported hives and throat locking up after taking doses of Bactrim repeatedly for several days Immunizations Given and Recorded Vaccine Date Status Refusal Reason tetanus/diphtheria/pertussis, acel(Tdap) 02/14/17 Recorded influenza virus vaccine, inactivated 1 03/22/12 Gi lizbeth influenza virus vaccine, inactivated 2 01/30/11 Gi lizbeth influenza virus vaccine, inactivated 02/06/10 Garrett rded 1Admin Note: ADMIN BY [facility] 2Admin Note: FLUVIRIN MULTIDOSE ADMINISTERED AT [facility] Medications acetaminophen 650 mg oral tablet, extended release 2 tablet = 1,300 mg, By Mouth, Every 8 hours, # 100 tablet, 1 Refills, Maintenance, 06/29/21 15:10:00 EDT, ER Tablet, [id number], Partial fill upon patient request if the prescription is for a schedule II opioid drug., 155, cm, 05/30/21 15:34:... Start Date: 06/29/21 Status: Ordered Cavilon Emollient topical cream 1 application, Topically, 2 times a day, PRN for dry skin, # 454 Gm, 1 Refills, Maintenance, 09/30/19 16:26:00 EDT, Cream, [facility] 3, 1 application Topically 2 times a day,PRN:for dry skin, 158, cm, 08/27/19 13:02:00 EDT, Height, 76, kg... Start Date: 09/30/19 Status: Ordered cetirizine 10 mg oral tablet, chewable 1 tablet = 10 mg, By Mouth, Daily, PRN for allergy symptoms, # 12 tablet, 4 Refills, Maintenance, 09/04/22 10:28:00 EDT, Chew Tablet, [facility], Partial fill upon patient request ifthe prescription is for a schedule II opioid drug.,... Start Date: 09/04/22 Stop Date: 10/24/22 Status: Ordered cholecalciferol 1000 intl units oral capsule 1 capsule = 25 mcg, By Mouth, Daily, vitamin D, # 100 capsule, 3 Refills, Maintenance, 07/24/22 13:10:00 EDT, Capsule, [facility]/pharmacy #[id number], Partial fill upon patient request if the prescription is fora schedule II opioid drug., 155, cm, 07/17/22 9:50:... Start Date: 07/24/22 Status: Ordered clonazePAM 0.5 mg oral tablet 1 tablet = 0.5 mg, By Mouth, 2 times a day, Increaseddose May weekly on Fridays for 4 weeks starting on 09/07, # 14 tablet, 3 Refills, Maintenance, 09/06/22 14:07:00 EDT, Tablet, [facility], [facility] reviewed, covering for Dr. De Leon, 1... Start Date: 09/06/22 Stop Date: 10/04/22 Status: Ordered clonazePAM 0.5 mg oral tablet 1 tablet = 0.5 mg, By Mouth, 2 times a day, Increaseddose May weekly on Fridays for 3 weeks starting on 07/21, # 14 tablet, 2 Refills, Maintenance, 07/19/22 12:38:00 EDT, Tablet, [facility], [facility] reviewed, covering for Dr. De Leon, 1... Start Date: 07/19/22 Stop Date: 08/09/22 Status: Ordered Dovonex 0.005% topical cream 1 applicator, Topically, 2 times a day, # 60 Gm, 5 Refills, Maintenance, 05/24/22 12:41:00 EDT, [facility], 1 applicator Topically 2 times a day,x30 days, 155, cm, 01/23/22 14:00:00 EST, Height, 106.5, kg, 09/14/21 9:38:00 EDT, Dry... Start Date: 05/24/22 Stop Date: 11/20/22 Status: Ordered Eucerin Unscented topical lotion See Instructions, apply as frequently as needed, # 1 each, 0 Refills, Maintenance, 09/28/21 12:23:00 EDT, [facility], Partial fill upon patient request if the prescription is for a schedule II opioid drug., apply as frequently as n... Start Date: 09/28/21 Status: Ordered fluticasone 50 mcg/inh nasal spray 1 sprays, Nares, Both, 2 times a day, in each nostril. for allergies, # 16 Gm, 0 Refills, Maintenance, 04/27/20 14:35:00 EST, [place], [facility] 3, Partial fill upon patient request if theprescription is for a schedule II opioid drug., 1... Start Date: 04/27/20 Stop Date: 05/27/20 Status: Ordered halobetasol 0.05% topical ointment See Instructions, APPLY A THIN FILM TO THE AFFECTED SKIN AND RUB IN GENTLY AND COMPLETELY TWICE A DAY, # 50 Gm, 0 Refills, Maintenance, 09/12/22 13:49:00 EDT, [facility]/pharmacy #[id number], 30, APPLY A THIN FILM TO THE AFFECTED SKIN AND RUB IN GENTLY AND COMPLET... Start Date: 09/12/22 Status: Ordered ketoconazole 2% topical shampoo See Instructions, APPLY 1 APPLICATOR TOPICALLY 3X PER WEEK, # 120 mL, 3 Refills, Maintenance, 05/16/22 8:48:00 EST, [facility] STORE [id number], 30, APPLY 1 APPLICATOR TOPICALLY 3X PER WEEK, 155, cm, 01/23/22 14:00:00 EST, Height, 106.5, kg, 09/14/21 9:38:00 EDT,... Start Date: 05/16/22 Status: Ordered loratadine 10 mg oral tablet 1, tablet, By Mouth, Daily, # 30 tablet, Refills 5, Tot. Refills 5, Maintenance, 07/04/22 8:39:00 EDT, [id number], cm, 01/23/22 14:00:00 EST, Height, 106.5, kg, 09/14/21 9:38:00 EDT, Dry Weight Start Date: 07/04/22 Status: Ordered Methadone By Mouth, 0 Refills, Maintenance Start Date: 12/25/11 Status: Ordered mupirocin 2% topical cream 1 application, Topically, 3 times a day, # 30 Gm, 2 Refills, Maintenance, 03/08/21 10:26:00 EST, Cream, [id number] Partial fill upon patient request if the prescription is for a schedule II opioid drug., 1 application Topically 3 times a day,... Start Date: 03/08/21 Status: Ordered permethrin 5% topical cream 1 application, Topically, Once, to skin head to feet, remove by washing after 8 to 14 hours, # 60 Gm, 0 Refills, Soft Stop, 07/27/20 11:50:00 EDT, Cream, [facility], 1 applicationTopically Once,Instr:to skin head to feet, remove b... Start Date: 07/27/20 Status: Ordered predniSONE 5 mg oral tablet See Instructions, latest dosage 15 mg daily, now to take 5mg tablet, 3 daily. May fill Fridays starting 09/07/22, # 21 tablet, 3 Refills, Maintenance, 09/06/22 14:07:00 EDT, [facility], Partial fill upon patient request if the pres... Start Date: 09/06/22 Status: Ordered selenium sulfide 2.5% topical lotion See Instructions, APPLY TOPICALLY TO AFFECTED AREA EVERY DAY FOR 7 DAYS, # 120 mL, 3 Refills, Soft Stop, 10/26/21 15:43:00 EDT, [facility], 7, APPLY TOPICALLY TO AFFECTED AREA EVERY DAY FOR 7 DAYS, 155, cm, 09/28/21 12:06:00 EDT, H... Start Date: 10/26/21 Status: Ordered simvastatin 20 mg oral tablet 20 mg, 1, tablet, By Mouth, Daily at bedtime, for cholesterol, # 30 tablet, Refills 5, Tot. Refills5, Maintenance, 07/24/22 13:12:00 EDT, Route to Pharmacy Electronically, [facility]/pharmacy #[id number], Partial fill upon patient request if the prescription is f... Start Date: 07/24/22 Status: Ordered traMADol 50 mg oral tablet 1 tablet = 50 mg, By Mouth, Every 8 hours, PRN Pain , Severe, for 7 days, 4May fill 08/11/22 and weekly on Fridays for 4 weeks, # 21 tablet, 3 Refills, Acute 10/06/22 8:49:00 EDT, 09/08/22 8:49:00 EDT,Tablet, [facility], Partial fi... Start Date: 09/08/22 Stop Date: 10/06/22 Status: Ordered Problem List Condition Confirmation Course Effective Dates Status H ealth Status Informant Anxiety Confirmed Active Intermittent palpitations Confirmed Active Opioid type dependence, continuous 1 Confirmed Active Osteoarthritis of left knee Confirmed Active Primary osteoarthritis of left knee Confirmed Active Panic disorder Confirmed Active Psoriasis Confirmed Active Severe obesity Confirmed Active 1Client had been seen by Jazz Francois at [facility]. Client has no-showed to last appt [...] Personnel Name: Ilya De Leon MD Position: S Physician - Primary Care Member Role: PCP Address: Address: [address] [place] [phone]- Care Team Related Persons Name: JD ALVAREZ Address: home [address] [place] [id number]
--- NOTE | 2022-11-03 10:35 | ED_ITS ---
HPI - General Adult General Chief complaint: General Medical Stated complaint: Low Back Right Leg Pain Time Seen by Provider: 11/03/22 10:22 Source: patient Mode of arrival: ambulatory Limitations: no limitations History of Present Illness HPI narrative: 57 yo female with history of afib, obesity, psoriasis, chronic left knww pain due for knee replacement 12/14 @ [facility] who presents to the ER for evaluation of 2 weeks of worsening left knee pain. She states no relief with her prescribed tramadol. She states it hurts with ambulation and with flexion. No new injury. No swelling or redness. She states she cannot take the pain anymore. She also reports bilateral lower back pain and difficulty urinating. She reports it takes her a long time to Sinemet oil and empty her bladder. She has increased frequency but no dysuria. She denies any nausea, vomiting, abdominal pain, fever, chills. MD complaint: Chronic left knee pain and low back pain Onset (ago): week(s) Location: back, left and lower extremity Severity: severe Quality: stabbing and aching Pain Consistency: constant Relieving factors: none Exacerbating factors: movement Associated symptoms: denies other symptoms Treatments prior to arrival: none Related Data Home Medications Medication Instructions Recorded Confirmed acetaminophen 500 mg tablet 1,000 mg PO Q6H PRN Pain 09/26/22 11/01/22 cholecalciferol (vitamin D3) 25 25 mcg PO DAILY 09/26/22 11/01/22 mcg (1,000 unit) capsule (Vitamin D3) clonazepam 0.5 mg tablet 0.5 mg PO BID PRN Anxiety 09/26/22 11/01/22 halobetasol propionate 0.05 % 1 appl topical BID PRN psoriasis 09/26/22 11/01/22 topical ointment ketoconazole 2 % shampoo 1 ea topical MOWEFR@0900 09/26/22 11/01/22 loratadine 10 mg tablet 10 mg PO DAILY PRN Allergic 09/26/22 11/01/22 Symptoms methadone 10 mg/mL oral concentrate 109 mg PO DAILY 09/26/22 11/01/22 prednisone 5 mg tablet 15 mg PO DAILY 09/26/22 11/01/22 simvastatin 20 mg tablet 20 mg PO BEDTIME 09/26/22 11/01/22 tramadol 50 mg tablet 50 mg PO TID PRN Pain 09/26/22 11/01/22 Previous Rx's Medication Instructions Recorded methenamine hippurate 1 gram tablet 1 g PO BID 30 days #60 tabs 10/19/22 cyclobenzaprine 10 mg tablet 10 mg PO TID PRN muscle spasm #14 11/03/22 tabs nitrofurantoin 100 mg PO Q12H 5 days #10 caps 11/03/22 monohydrate/macrocrystals 100 mg capsule (Macrobid) Allergies Allergy/AdvReac Type Severity Reaction Status Date / Time Penicillins [PENICILLINS] Allergy Mild UNKNOWN Verified 11/01/22 13:11 aspirin [ASPIRIN] Allergy Unknown UNKNOWN Verified 11/01/22 13:11 ibuprofen [IBUPROFEN] Allergy Unknown UNKNOWN Verified 11/01/22 13:11 sumatriptan [From IMITREX] Allergy Unknown UNKNOWN Verified 11/01/22 13:11 From COMPAZINE Allergy Unknown UNKNOWN Uncoded 11/01/22 13:11 From IMITREX Allergy Unknown UNKNOWN Uncoded 11/01/22 13:11 Review of Systems Review of Systems: Yes all other systems are reviewed and are negative [facility] Past Medical History Medical History (Updated 11/03/22 @ 11:49 by BLAKE Lopez) Hyperlipidemia Infection due to ESBL-producing Escherichia coli Migraine Surgical History (Updated 11/01/22 @ 13:13 by ARNULFO Urban) H/O tubal ligation Family History Family History Mother Breast cancer Father No problems noted. Social History Social History (Updated 11/01/22 @ 13:14 by ARNULFO Urban) Household Members: Spouse Housing: Apartment Alcohol intake: never Patient Tobacco Use Status: Current everyday Tobacco user Tobacco use type: Cigarette Cigarette Packs Per Day: 0.5 Cigarettes Per Day: 3 Years Smoked: 25 +/- e-Cigarette/Vaping Use: Never Used Advance Directives: No Advance Directives Information Provided: Yes service: No Physical Exam ED Vital Signs: Vital Signs - 24 hr 11/03/22 10:02 11/03/22 11:58 Temperature 98.1 F Pulse Rate 70 71 Respiratory Rate 18 16 Blood Pressure 137/84 121/70 Pulse Oximetry 96 98 Oxygen Delivery Method Room Air BMI result Body Mass Index 35.9 Appearance: Alert. Oriented X3. No acute distress. HEENT: normal inspection CVS: Normal heart rate and rhythm. Pulses normal. Respiratory: No respiratory distress. Skin: Skin warm and dry. Normal skin color. Normal skin turgor. No rashes. Back: Normal inspection, bilateral soft tissue tenderness of the upper, middle, lower lumbar areas. No midline tenderness. Normal range of motion. Extremities: mild generalized swelling of the left knee. Tender medial and lateral joint lines. Pain with flexion at 45 degrees. Neuro: Oriented X 3. No motor deficit. No sensory deficit. Antalgic gait Medications Administered Discontinued Medications Generic Name Dose Route Start Last Admin Trade Name Freq PRN Reason Stop Dose Admin Hydromorphone HCl 1 mg 11/03/22 10:45 11/03/22 10:57 Hydromorphone Hcl 1 Mg/Ml Syringe IM 11/03/22 10:46 1 mg ONCE ONE Administration Protocol Medical Decision Making Medical Decision Making [facility] Narrative: 57-year-old female with history of chronic pain on chronic opiates, chronic left knee pain presenting to the ER for evaluation acute on chronic nontraumatic left knee pain along with lower back pain for the last 2 weeks. She does have some urinary symptoms associated with her back pain. She is not retaining urine or incontinent of urine. She has urgency and frequency. No dysuria. Her vital signs are stable. Her urinalysis today is consistent with possible urinary tract infection. She has no red flag symptoms of low back pain. Doubt cauda equina or spinal cord compression. Her knee pain is chronic without any new injuries. No need for imaging today. No signs of infection. She was given intramuscular Dilaudid in the emergency department. She was advised to contact her provider who prescribes her narcotics. She was also advised to contact pain management for further evaluation. She will follow-up with her knee surgeon as well to see if she can get her surgery date moved up. At this time patient is stable for discharge home with outpatient follow-up. Differential Diagnosis Differential Diagnoses: The differential diagnosis associated with the presentation includes acute flare of osteoarthritis, chronic pain syndrome, no evidence of knee ef fusion, septic joint, gout low back pain likely musculoskeletal, which may be exacerbated by urinary tract infection Lab Data [facility] Lab Attestation statement: I reviewed the patient's lab results. Possible contamination, possible UTI, empiric treatment started given history of pyelonephritis Labs: Lab Results 11/03/22 Range/Units 11:01 Urine Color Dark Yellow Urine Appearance Cloudy Urine pH 5.5 (5.0-9.0) Ur Specific [place] >= 1.030 H (1.005-1.025) Urine Protein 30 (1+) H (Neg-Trace) mg/dL Urine Glucose (UA) Negative (Negative) mg/dL Urine Ketones Trace (Negative) mg/dL Urine Blood Trace H (Negative) Urine Nitrite Negative (Negative) Ur Leukocyte Esterase Trace H (Negative) Urine RBC 11-20 H (0-2) /HPF Urine WBC 6-10 H (0-5) /HPF Ur Squamous Epith Cells >20 (0-2) /HPF Calcium Oxalate Crystal Present Urine Bacteria 3+ (None Seen) Hyaline Casts 11-20 (0-2) /LPF Urine Yeast Present Independent Historian Clinical information obtained from an independent historian. History obtained from or confirmed by: Spouse External Record Review External record reviewed: Outpatient record and Prior outpatient labs Prescription Management I considered prescription management with: Pain Medication and Antibiotic Chronic Conditions Patient?s care impacted by: Other ( AFib, chronic pain) Critical Care Time Critical Care Time Critical Care Time: No Discharge Plan Discharge Clinical Impression: UTI (urinary tract infection), Low back pain, Chronic pain of left knee Patient Disposition: Home, Self-Care Instructions: Urinary Tract Infection in Women (DC), Pain Management (ED), Knee Pain (ED) Additional Instructions: Take the prescribed antibiotics as directed, complete the entire course and do not miss any doses for possible UTI while we await the urine culture Recommend 3 days of prednisone at home to help with joint pain Take the prescribed muscle relaxer as needed. Use ice or heat to the area, which ever feels better Follow up with your doctor and [facility] as soon as possible Recommend following up with Pain Management for further evaluation If you develop new or worsening symptoms call 911 or come back to the ER for further evaluation. Prescriptions: New nitrofurantoin monohyd/m-cryst [Macrobid] 100 mg capsule 100 mg PO Q12H 5 Days Qty: 10 0RF Rx Instructions: must administer with a meal/food cyclobenzaprine 10 mg tablet 10 mg PO TID PRN (Reason: muscle spasm) Qty: 14 0RF No Action ketoconazole 2 % shampoo 1 ea topical MOWEFR@0900 clonazepam 0.5 mg tablet 0.5 mg PO BID PRN (Reason: Anxiety) prednisone 5 mg tablet 15 mg PO DAILY tramadol 50 mg tablet 50 mg PO TID PRN (Reason: Pain) simvastatin 20 mg tablet 20 mg PO BEDTIME halobetasol propionate 0.05 % ointment 1 appl topical BID PRN (Reason: psoriasis) loratadine 10 mg tablet 10 mg PO DAILY PRN (Reason: Allergic Symptoms) cholecalciferol (vitamin D3) [Vitamin D3] 25 mcg (1,000 unit) capsule 25 mcg PO DAILY acetaminophen 500 mg Tablet 1,000 mg PO Q6H PRN (Reason: Pain) methadone 10 mg/mL Concentrate 109 mg PO DAILY methenamine hippurate 1 gram tablet 1 g PO BID 30 Days Qty: 60 5RF Referrals: [facility] Pain Management [Provider Group] Interventions: ED Discharge Assessment Last Done: 11/03/22 11:57 Discharge Date/Time: 11/03/22 12:17
--- OUTSIDE RECORDS SUMMARY | 2022-11-03 10:35 | XMS_ITS | Continuity of Care Document ---
Author Name Unknown Organization [facility] Address [address] [place] [address]- Care Team Providers Care Fine Unhairer Name Role Phone Ilya De Leon MD Primary Care Physician Encounter [facility] Date(s): 06/14/22 - 07/14/22 [facility]/[address] [address]- [place] Allergies, Adverse Reactions, Alerts Substance Reaction Severity Status penicillin Rash Active aspirin Ibuprofen tight throat Rash Active morphine HAND SWELLING Active Toradol Rash Active Motrin tight throat Rash Active Imitrex Chest pain Active Compazine throat swells Active Reglan Agitated Active trimethoprim-sulfamethoxazole DS 1 Yulya t Hives 17-MAY-2013 07:29:57<$> Unknown Active dehydroepiandrosterone [...] 02/06/10 Garrett rded 1Admin Note: ADMIN BY [facility] 2Admin Note: FLUVIRIN MULTIDOSE ADMINISTERED AT [facility] Medications acetaminophen 650 mg oral tablet, extended release 2 tablet = 1,300 mg, By Mouth, Every 8 hours, # 100 tablet, 1 Refills, Maintenance, 06/29/21 15:10:00 EDT, ER Tablet, [id number], Partial fill upon patient request if the prescription is for a schedule II opioid drug., 155, cm, 05/30/21 15:34:... Start Date: 06/29/21 Status: Ordered capsaicin 0.025% topical cream See Instructions, APPLY TO AFFECTED AREA TWICE A DAY, # 60 Gm, 1 Refills, [facility]ORE [id number], 30, APPLY TO AFFECTED AREA TWICE A DAY, 155, cm, 05/30/21 15:34:00 EDT, Height, 95.9, kg, 12/05/20 10:08:00 EDT, Dry Weight Start Date: 05/31/21 Status: Ordered Cavilon Emollient topical cream 1 application, Topically, 2 times a day, PRN for dry skin, # 454 Gm, 1 Refills, Maintenance, 09/30/19 16:26:00 EDT, Cream, [facility] 3, 1 application Topically 2 times a day,PRN:for dry skin, 158, cm, 08/27/19 13:02:00 EDT, Height, 76, kg... Start Date: 09/30/19 Status: Ordered clonazePAM 0.5 mg oral tablet 1 tablet = 0.5 mg, By Mouth, Daily at bedtime, May fill 06/16/22 and weekly on Fridays for 3 weeks, #7 tablet, 2 Refills, Maintenance, 07/04/22 13:28:00 EDT, Tablet, [facility], [facility] reviewed, covering for Dr. De Leon, 155, cm, 01/23... Start Date: 07/04/22 Stop Date: 07/25/22 Status: Ordered clonazePAM 0.5 mg oral tablet 1 tablet = 0.5 mg, By Mouth, Daily at bedtime, May fill 05/26/22 and weekly on Fridays for 3 weeks, # 7 tablet, 2 Refills, Maintenance, 05/24/22 10:44:00 EDT, Tablet, [facility], [employer] reviewed, covering for Dr. De Leon, 155, cm, 01/10... Start Date: 05/24/22 Stop Date: 06/14/22 Status: Ordered clonazePAM 0.5 mg oral tablet 1 tablet = 0.5 mg, By Mouth, Daily at bedtime, May fill 04/14/22 and weekly on Fridays for3 weeks, # 7 tablet, 2 Refills, Maintenance, 04/13/22 10:13:00 EST, Tablet, [facility], PMPreviewed, covering for Dr. De Leon, 155, cm, ... Start Date: 04/13/22 Stop Date: 05/04/22 Status: Ordered coal tar topical 1% lotion See Instructions, applyTopically Daily at bedtime, # 120 mL, 3 Refills, Maintenance, 10/26/21 15:45:00 EDT, [facility], Partial fill upon patient request if the prescription is for a schedule II opioid drug., applyTopically Daily a... Start Date: 10/26/21 Status: Ordered Dovonex 0.005% topical cream 1 applicator, Topically, 2 times a day, # 60 Gm, 5 Refills, Maintenance, 05/24/22 12:41:00 EDT, [facility], 1 applicator Topically 2 times a day,x30 days, 155, cm, 01/23/22 14:00:00 EST, Height, 106.5, kg, 09/14/21 9:38:00 EDT, Dry... Start Date: 05/24/22 Stop Date: 11/20/22 Status: Ordered Eucerin Unscented topical lotion See Instructions, apply as frequently as needed, # 1 each, 0 Refills, Maintenance, 09/28/21 12:23:00 EDT, [facility], Partial fill upon patient request if the prescription is for a schedule II opioid drug., apply as frequently as n... Start Date: 09/28/21 Status: Ordered fluticasone 50 mcg/inh nasal spray 1 sprays, Nares, Both, 2 times a day, in each nostril. for allergies, # 16 Gm, 0 Refills, Maintenance, 04/27/20 14:35:00 EST, [place], [facility] 3, Partial fill upon patient request if theprescription is for a schedule II opioid drug., 1... Start Date: 04/27/20 Stop Date: 05/27/20 Status: Ordered halobetasol 0.05% topical ointment See Instructions, APPLY A THIN FILM TO THE AFFECTED SKIN AND RUB IN GENTLY AND COMPLETELY TWICE A DAY, # 50 Gm, 1 Refills, Maintenance, 10/26/21 15:44:00 EDT, [facility], 30, APPLY A THIN FILM TO THE AFFECTED SKIN AND RUB IN GENTLY... Start Date: 10/26/21 Status: Ordered ketoconazole 2% topical shampoo See Instructions, APPLY 1 APPLICATOR TOPICALLY 3X PER WEEK, # 120 mL, 3 Refills, Maintenance, 05/16/22 8:48:00 EST, [facility] STORE [id number], 30, APPLY 1 APPLICATOR TOPICALLY 3X PER WEEK, 155, cm, 01/23/22 14:00:00 EST, Height, 106.5, kg, 09/14/21 9:38:00 EDT,... Start Date: 05/16/22 Status: Ordered loratadine 10 mg oral tablet 1, tablet, By Mouth, Daily, # 30 tablet, Refills 5, Tot. Refills 5, Maintenance, 07/04/22 8:39:00 EDT, [id number], cm, 01/23/22 14:00:00 EST, Height, 106.5, kg, 09/14/21 9:38:00 EDT, Dry Weight Start Date: 07/04/22 Status: Ordered Methadone By Mouth, 0 Refills, Maintenance Start Date: 12/25/11 Status: Ordered mupirocin 2% topical cream 1 application, Topically, 3 times a day, # 30 Gm, 2 Refills, Maintenance, 03/08/21 10:26:00 EST, Cream, [id number] Partial fill upon patient request if the prescription is for a schedule II opioid drug., 1 application Topically 3 times a day,... Start Date: 03/08/21 Status: Ordered permethrin 5% topical cream 1 application, Topically, Once, to skin head to feet, remove by washing after 8 to 14 hours, # 60 Gm, 0 Refills, Soft Stop, 07/27/20 11:50:00 EDT, Cream, [facility], 1 applicationTopically Once,Instr:to skin head to feet, remove b... Start Date: 07/27/20 Status: Ordered predniSONE 10 mg oral tablet See Instructions, May fill 06/16/22 and weekly on Fridays for 3 weeks, # 14 tablet, 2 Refills, 07/04/22 13:28:00 EDT, [facility], 155, cm, 01/23/22 14:00:00 EST, Height, 106.5, kg, 09/14/21 9:38:00 EDT, Dry Weight Start Date: 07/04/22 Status: Ordered predniSONE 10 mg oral tablet See Instructions, May fill 05/26/22 and weekly on Fridays for 3 weeks, # 14 tablet, 2 Refills, 05/24/22 10:44:00 EDT, [facility], 155, cm, 01/23/22 14:00:00 EST, Height, 106.5, kg,09/14/21 9:38:00 EDT, Dry Weight Start Date: 05/24/22 Status: Ordered predniSONE 10 mg oral tablet See Instructions, May fill and weekly on Fridays for 3 weeks, # 14 tablet, 2 Refills, 04/13/22 10:13:00 EST, [facility], 155, cm, 01/23/22 14:00:00 EST, Height, 106.5, kg,09/14/21 9:38:00 EDT, Dry Weight Start Date: 04/13/22 Status: Ordered selenium sulfide 2.5% topical lotion See Instructions, APPLY TOPICALLY TO AFFECTED AREA EVERY DAY FOR 7 DAYS, # 120 mL, 3 Refills, Soft Stop, 10/26/21 15:43:00 EDT, [facility], 7, APPLY TOPICALLY TO AFFECTED AREA EVERY DAY FOR 7 DAYS, 155, cm, 09/28/21 12:06:00 EDT, H... Start Date: 10/26/21 Status: Ordered tiZANidine 2 mg oral tablet 1, tablet, By Mouth, 3 times a day, # 60 tablet, Refills 0, Route to Pharmacy Electronically, [facility] STORE [id number], 155, cm, 05/03/21 14:39:00 EST, Height, 95.9, kg, 12/05/20 10:08:00 EDT, Dry Weight Start Date: 05/09/21 Status: Ordered traMADol 50 mg oral tablet 1 tablet = 50 mg, By Mouth, Every 8 hours, PRN Pain , Severe, for 7 days, May fill 06/16/22 and weekly on Fridays for 3 weeks, # 21 tablet, 2 Refills, Acute 07/25/22 13:28:00 EDT, 07/04/22 13:28:00 EDT, Tablet, [facility], Partial f... Start Date: 07/04/22 Stop Date: 07/25/22 Status: Ordered Problem List Condition Confirmation Course Effective Dates Status H ealth Status Informant Anxiety Confirmed Active Opioid type dependence, continuous 1 Confirmed Active Osteoarthritis of left knee Confirmed Active Psoriasis Confirmed Active Severe obesity Confirmed Active 1Client had been seen by Jazz Francois at [facility]. Client has no-showed to last appt and [...] Name: Ilya De Leon MD Position: S Primary Care Physician Member Role: PCP Address: Address: [address] [place] [id number]- Care Team Related Persons Name: JD ALVAREZ Address: home [address] [place] [id number]
--- OUTSIDE RECORDS SUMMARY | 2022-11-03 10:35 | XMS_ITS | Continuity of Care Document ---
Author Name Unknown Organization [facility] Address [address] [place] [id number]- Care Team Providers Care Truck Loader And Unloader Name Role Phone Ilya De Leon MD Primary Care Physician Encounter [facility] ACCT R [id number] Date(s): 11/10/21 - 01/18/22 [facility] [address]- Attending Physician: Ilya De Leon MD Admitting Physician: Ilya De Leon MD Allergies, Adverse [...] 01/30/11 Gi lizbeth 1Admin Note: ADMIN BY [facility] 2Admin Note: FLUVIRIN MULTIDOSE ADMINISTERED AT [facility] Medications acetaminophen 650 mg oral tablet, extended release 2 tablet = 1,300 mg, By Mouth, Every 8 hours, # 100 tablet, 1 Refills, Maintenance, 06/29/21 15:10:00 EDT, ER Tablet, [id number], Partial fill upon patient request if the prescription is for a schedule II opioid drug., 155, cm, 05/30/21 15:34:... Start Date: 06/29/21 Status: Ordered capsaicin 0.025% topical cream See Instructions, APPLY TO AFFECTED AREA TWICE A DAY, # 60 Gm, 1 Refills, [facility] [id number], 30, APPLY TO AFFECTED AREA TWICE A DAY, 155, cm, 05/30/21 15:34:00 EDT, Height, 95.9, kg, 12/05/20 10:08:00 EDT, Dry Weight Start Date: 05/31/21 Status: Ordered Cavilon Emollient topical cream 1 application, Topically, 2 times a day, PRN for dry skin, # 454 Gm, 1 Refills, Maintenance, 09/30/19 16:26:00 EDT, Cream, [facility], 1 application Topically 2 times a day,PRN:for dry skin, 158, cm, 08/27/19 13:02:00 EDT, Height, 76, kg... Start Date: 09/30/19 Status: Ordered clonazePAM 0.5 mg oral tablet 1 tablet = 0.5 mg, By Mouth, Daily at bedtime, May fill 01/20/22 and weekly on Fridays for3 weeks, # 7 tablet, 2 Refills, Maintenance, 01/18/22 14:09:00 EST, Tablet, [facility], HOUSECLEANER reviewed, covering for Dr. De Leon, 155, cm, 10/0... Start Date: 01/18/22 Stop Date: 02/08/22 Status: Ordered clonazePAM 0.5 mg oral tablet 1 tablet = 0.5 mg, By Mouth, Daily at bedtime, May fill 12/30/21 and weekly on Fridays for3 weeks, # 7 tablet, 2 Refills, Maintenance, 12/27/21 16:07:00 EDT, Tablet, [facility], HOUSECLEANER reviewed, covering for Dr. De Leon, 155, cm, 10/0... Start Date: 12/27/21 Stop Date: 01/17/22 Status: Ordered coal tar topical 1% lotion See Instructions, applyTopically Daily at bedtime, # 120 mL, 3 Refills, Maintenance, 10/26/21 15:45:00 EDT, [facility], Partial fill upon patient request if the prescription is for a schedule II opioid drug., applyTopically Daily a... Start Date: 10/26/21 Status: Ordered Dovonex 0.005% topical cream 1 applicator, Topically, 2 times a day, # 60 Gm, 5 Refills, Maintenance, 07/07/19 17:30:00 EDT, [facility] 3, 1 applicator Topically 2 times a day,x30 days, 158, cm, 12/24/18 10:25:00 EDT, Height, 76, kg, 04/12/19 15:31:00 EST, Dry Weight Start Date: 07/07/19 Stop Date: 01/03/20 Status: Ordered Eucerin Unscented topical lotion See Instructions, apply as frequently as needed, # 1 each, 0 Refills, Maintenance, 09/28/21 12:23:00 EDT, [facility], Partial fill upon patient request if the prescription is for a schedule II opioid drug., apply as frequently as n... Start Date: 09/28/21 Status: Ordered fluticasone 50 mcg/inh nasal spray 1 sprays, Nares, Both, 2 times a day, in each nostril. for allergies, # 16 Gm, 0 Refills, Maintenance, 04/27/20 14:35:00 EST, [place], [facility] 3, Partial fill upon patient request if theprescription is for a schedule II opioid drug., 1... Start Date: 04/27/20 Stop Date: 05/27/20 Status: Ordered halobetasol 0.05% topical ointment See Instructions, APPLY A THIN FILM TO THE AFFECTED SKIN AND RUB IN GENTLY AND COMPLETELY TWICE A DAY, # 50 Gm, 1 Refills, Maintenance, 10/26/21 15:44:00 EDT, [facility], 30, APPLY A THIN FILM TO THE AFFECTED SKIN AND RUB IN GENTLY... Start Date: 10/26/21 Status: Ordered hydrocortisone 1% topical cream 1 application, Topically, 2 times a day, # 30 Gm, 0 Refills, Maintenance, 06/17/21 11:42:00 EDT, Cream, [facility] 3, Partial fill upon patient request if the prescription is for a schedule II opioid drug., 1 application Topically 2 times... Start Date: 06/17/21 Status: Ordered ketoconazole 2% topical shampoo See Instructions, APPLY 1 APPLICATOR TOPICALLY 3X PER WEEK, # 120 mL, 3 Refills, Maintenance, 12/27/21 19:30:00 EDT, [id number], 30, APPLY 1 APPLICATOR TOPICALLY 3X PER WEEK, 155, cm, 12/12/21 16:00:00 EDT, Height, 106.5, kg, 09/14/21 9:38:00 EDT... Start Date: 12/27/21 Status: Ordered loratadine 10 mg oral tablet 1, tablet, By Mouth, Daily, # 90 tablet, Refills 1, Tot. Refills 1, Maintenance, 11/01/21 15:19:00 EDT, Route to Pharmacy Electronically, [facility] #[id number], 155, cm, 09/28/21 12:06:00 EDT, Height, 106.5, kg, 09/14/21 9:38:00 EDT, Dry Weight Start Date: 11/01/21 Status: Ordered Methadone By Mouth, 0 Refills, Maintenance Start Date: 12/25/11 Status: Ordered mupirocin 2% topical cream 1 application, Topically, 3 times a day, # 30 Gm, 2 Refills, Maintenance, 03/08/21 10:26:00 EST, Cream, [facility]/pharmacy #[id number], Partial fill upon patient request if the prescription is for a schedule II opioid drug., 1 application Topically 3 times a day,... Start Date: 03/08/21 Status: Ordered permethrin 5% topical cream 1 application, Topically, Once, to skin head to feet, remove by washing after 8 to 14 hours, # 60 Gm, 0 Refills, Soft Stop, 07/27/20 11:50:00 EDT, Cream, [facility], 1 applicationTopically Once,Instr:to skin head to feet, remove b... Start Date: 07/27/20 Status: Ordered predniSONE 10 mg oral tablet See Instructions, May fill 12/09/21 and weekly on Fridays for 3 weeks, # 14 tablet, 2 Refills, 12/06/21 10:38:00 EDT, [facility], 155, cm, 09/28/21 12:06:00 EDT, Height, 106.5, kg,09/14/21 9:38:00 EDT, Dry Weight Start Date: 12/06/21 Status: Ordered predniSONE 10 mg oral tablet See Instructions, May fill 01/20/22 and weekly on Fridays for 3 weeks, # 14 tablet, 2 Refills, 01/18/22 14:09:00 EST, [facility], 155, cm, 12/12/21 16:00:00 EDT, Height, 106.5, kg, 09/14/21 9:38:00 EDT, Dry Weight Start Date: 01/18/22 Status: Ordered predniSONE 10 mg oral tablet See Instructions, May fill 12/30/21 and weekly on Fridays for 3 weeks, # 14 tablet, 2 Refills, 12/27/21 16:07:00 EDT, [facility], 155, cm, 12/12/21 16:00:00 EDT, Height, 106.5, kg, 09/14/21 9:38:00 EDT, Dry Weight Start Date: 12/27/21 Status: Ordered selenium sulfide 2.5% topical lotion See Instructions, APPLY TOPICALLY TO AFFECTED AREA EVERY DAY FOR 7 DAYS, # 120 mL, 3 Refills, Soft Stop, 10/26/21 15:43:00 EDT, [facility], 7, APPLY TOPICALLY TO AFFECTED AREA EVERY DAY FOR 7 DAYS, 155, cm, 09/28/21 12:06:00 EDT, H... Start Date: 10/26/21 Status: Ordered tiZANidine 2 mg oral tablet 1, tablet, By Mouth, 3 times a day, # 60 tablet, Refills 0, Route to Pharmacy Electronically, [facility] [id number], 155, cm, 05/03/21 14:39:00 EST, Height, 95.9, kg, 12/05/20 10:08:00 EDT, Dry Weight Start Date: 05/09/21 Status: Ordered traMADol 50 mg oral tablet 1 tablet = 50 mg, By Mouth, Every 8 hours, PRN Pain , Severe, for 7 days, May fill 01/20/22 and weekly on Fridays for 3 weeks, # 21 tablet, 2 Refills, Acute 02/08/22 14:09:00 EST, 01/18/22 14:09:00 EST, [facility], Partial... Start Date: 01/18/22 Stop Date: 02/08/22 Status: Ordered Problem List Condition Confirmation Course Effective Dates Status H ealth Status Informant Anxiety Confirmed Active Opioid type dependence, continuous 1 Confirmed Active Osteoarthritis of left knee Confirmed Active Psoriasis Confirmed Active Severe obesity Confirmed Active 1Client had been seen by Jazz Francois at [facility]. Client has no-showed to last appt [...] Personnel Name: Ilya De Leon MD Position: [facility] Primary Care Physician Member Role: PCP Address: Address: [address] [place] [id number]- Care Team Related Persons Name: JD ALVAREZ Address: home [address] [place] [id number]
--- OUTSIDE RECORDS SUMMARY | 2022-11-03 10:35 | XMS_ITS | Continuity of Care Document ---
Author Name Unknown Organization [facility] Address Unknown Care Team Providers Care Inclusion Manager Name Role Phone Ilya De Leon MD Primary Care Physician [place] [facility] [place]s): 12/13/20 - 01/12/21 [facility] Allergies, Adverse Reactions, Alerts Substance Reaction Severity Status penicillin Rash Active trimethoprim-sulfamethoxazole DS 1 Throa t Hives 17-MAY-2013 07:29:57<$> Unknown Active dehydroepiandrosterone 2 Chest pain Act julienne Imitrex Chest pain Active aspirin Ibuprofen tight throat Rash Active morphine HAND SWELLING Active Toradol Rash Active Motrin tight throat Rash Active Compazine throat swells Active Reglan Agitated Active 1By phone, reported hives and throat locking up after taking doses of Bactrim repeatedly for several days 2DHEA Immunizations Given and Recorded Vaccine Date Status Refusal Reason tetanus/diphtheria/pertussis, acel(Tdap) 02/14/17 Recorded influenza virus vaccine, inactivated 1 03/22/12 Gi lizbeth influenza virus vaccine, inactivated 2 01/30/11 Gi lizbeth 1Admin Note: ADMIN BY [facility] 2Admin Note: FLUVIRIN MULTIDOSE ADMINISTERED AT [facility] Medications Cavilon Emollient topical cream 1 application, Topically, 2 times a day, PRN for dry skin, # 454 Gm, 1 Refills, Maintenance, 09/30/19 16:26:00 EDT, Cream, [facility], 1 application Topically 2 times a day,PRN:for dry skin, 158, cm, 08/27/19 13:02:00 EDT, Height, 76, kg... Start Date: 09/30/19 Status: Ordered cetirizine 10 mg oral tablet 1 tablet = 10 mg, By Mouth, Daily, # 30 tablet, 0 Refills, Maintenance, 12/03/20 13:44:00 EDT, Tablet, [facility] #[id number], Partial fill upon patient request if the prescription is for a schedule II opioid drug., 158, cm, 12/03/20 13:27:00 EDT, Height,... Start Date: 12/03/20 Status: Ordered Claritin 10 mg oral tablet 10 mg, 1, tablet, By Mouth, Daily, # 15 tablet, Refills 3, Tot. Refills 3, Maintenance, 11/06/18 8:33:38 EDT, Route to Pharmacy Electronically, [id number], [facility] Start Date: 11/06/18 Status: Ordered clonazePAM 0.5 mg oral tablet 1 tablet = 0.5 mg, By Mouth, Daily, COAT BASTER checked, # 28 tablet, 0 Refills, Maintenance, 12/24/20 11:42:00 EDT, Tablet, [id number] Partial fill upon patient request if the prescription is for aschedule II opioid drug., 155, cm, 12/05/20 10:08:0... Start Date: 12/24/20 Stop Date: 01/21/21 Status: Ordered diphenhydrAMINE 25 mg oral tablet 1 tablet = 25 mg, By Mouth, 3 times a day, PRN as needed for itching, Will cause drowsiness, # 30 tablet, 0 Refills, Maintenance, 07/16/20 15:11:00 EDT, Tablet, [facility], Partial fill upon patient request if the prescription is f... Start Date: 07/16/20 Status: Ordered Dovonex 0.005% topical cream 1 applicator, Topically, 2 times a day, # 60 Gm, 5 Refills, Maintenance, 07/07/19 17:30:00 EDT, [facility] 3, 1 applicator Topically 2 times a [...] Gm, 0 Refills, Maintenance, 04/27/20 14:35:00 EST, [place], [facility], Partial fill upon patient request if theprescription is for a schedule II opioid drug., 1... Start Date: 04/27/20 Stop Date: 05/27/20 Status: Ordered furosemide 20 mg oral tablet 1, tablet, By Mouth, Daily, # 30 tablet, Refills 3, Tot. Refills 0, Maintenance, 10/21/20 11:22:00 EDT, Route to Pharmacy Electronically, [id number], 158, cm, 10/18/20 10:46:00 EDT, Height, 95.4, kg, 10/16/20 10:11:00 EDT, Dry Weight Start Date: 10/21/20 Status: Ordered halobetasol 0.05% topical ointment See Instructions, APPLY A THIN FILM TO THE AFFECTED SKIN AND RUB IN GENTLY AND COMPLETELY TWICE A DAY, # 50 Gm, 1 Refills, [facility] [id number], 30, APPLY A THIN FILM TO THE AFFECTED SKIN AND RUB IN GENTLY AND COMPLETELY TWICE A DAY, 158, cm, 10/18/20 10:4... Start Date: 12/02/20 Status: Ordered hydrocortisone 1% topical cream 1 application, Topically, 2 times a day, Apply to rash areas, # 60 Gm, 3 Refills, Maintenance, 06/04/19 14:52:00 EDT, Cream, [facility], 1 application Topically 2 times a day,Instr:Apply to rash areas, 158, cm, 12/24/18 10:25:00 EDT, Hei... Start Date: 06/04/19 Status: Ordered ketoconazole 2% topical shampoo See Instructions, APPLY 1 APPLICATOR TOPICALLY 3X PER WEEK, # 120 mL, 3 Refills, [facility] [id number], 30, APPLY 1 APPLICATOR TOPICALLY 3X PER WEEK, 158, cm, 10/18/20 10:46:00 EDT, Height, 95.4, kg, 10/16/20 10:11:00 EDT, Dry Weight Start Date: 12/01/20 Status: Ordered left soft knee brace left soft knee brace, See Instructions, # 1 each, Refills 0, Tot. Refills 0, Maintenance, arthritis, 10/18/20 10:59:00 EDT, Supply Start Date: 10/18/20 Status: Ordered loratadine 10 mg oral tablet 10 mg, 1, tablet, By Mouth, Daily, # 30 tablet, Refills 0, Tot. Refills 0, Maintenance, 09/01/18 18:07:38 EDT, Print Requisition Start Date: 09/01/18 Status: Ordered Methadone By Mouth, 0 Refills, Maintenance Start Date: 12/25/11 Status: Ordered mupirocin 2% topical cream 1 application, Topically, 3 times a day, # 30 Gm, 2 Refills, Maintenance, 12/17/20 15:28:00 EDT, Cream, [facility]/pharmacy #[id number], Partial fill upon patient request if the prescription is for a schedule II opioid drug., 1 application Topically 3 times a day,... Start Date: 12/17/20 Status: Ordered Wilberforce 0.65% nasal spray 2 sprays, Nares, Both, 4 times a day, # 1 each, 0 Refills, Maintenance, 12/03/20 13:46:00 EDT, [facility]/pharmacy #[id number], Partial fill upon patient request if the prescription is for a schedule II opioid drug., 2 sprays Nares, Both 4 times a day, 158, cm, 09... Start Date: 12/03/20 Status: Ordered permethrin 5% topical cream 1 application, Topically, Once, to skin head to feet, remove by washing after 8 to 14 hours, # 60 Gm, 0 Refills, Soft Stop, 07/27/20 11:50:00 EDT, Cream, [facility], 1 applicationTopically Once,Instr:to skin head to feet, remove b... Start Date: 07/27/20 Status: Ordered predniSONE 5 mg oral tablet 1 tablet = 5 mg, By Mouth, 3 times a day, may fill 01/05/21 for 14 days, # 42 tablet, 0 Refills, Maintenance, 01/05/21 12:54:00 EDT, Tablet, [facility]/pharmacy #[id number], Partial fill upon patient request if the prescription is for a schedule II opioid drug., 1... Start Date: 01/05/21 Stop Date: 01/19/21 Status: Ordered selenium sulfide 2.5% topical lotion See Instructions, APPLY TOPICALLY TO AFFECTED AREA EVERY DAY FOR 7 DAYS, # 120 mL, 3 Refills, Soft Stop, 07/23/20 11:40:00 EDT, [facility], 7, APPLY TOPICALLY TO AFFECTED AREA EVERY DAY FOR 7 DAYS, 158, cm, 07/23/20 11:13:00 EDT, H... Start Date: 07/23/20 Status: Ordered Shingrix intramuscular injection = 0.5 mL, Intramuscular, Once, repeat dose in 2 to 6 months, # 2 each, 0 Refills, Soft Stop, 05/27/20 11:03:00 EDT, Powder, [facility], Partial fill upon patient request if [...] 1 Refills, Maintenance, 03/10/20 18:21:00 EST, Cream, [facility] 3, Partial fill upon patient request if [...] 0 Refills, Maintenance, 09/24/20 11:47:00 EDT, Gel, [id number], 1 application Topically 4 times a day,Instr:for knee pain, 158, cm, 09/24/20 10:45:00 EDT, Height, 82, kg, 07/21/... Start Date: 09/24/20 Status: Ordered Problem List Condition Effective Dates Status Health Status Inform ant Anxiety(Confirmed) Active Opioid type dependence, continuous(Confirmed) 1 Active Osteoarthritis of left knee(Confirmed) Active Psoriasis(Confirmed) Active 1Client had been seen by Jazz Francois at [facility]. Client has no-showed to last appt and today.She will be targetted for closing if she does not responde to correspondence that will be sent on 02/14/13 Social History Social History Type Response Smoking Status 5-9 cigarettes (betw een 1/4 to 1/2 pack)/day in last 30 days entered on: 09/08/20 Sex
--- OUTSIDE RECORDS SUMMARY | 2022-11-03 10:35 | XMS_ITS | Continuity of Care Document ---
Author Name Unknown Organization [facility] Address [address] [place] [address]- Care Team Providers Care Rail Transportation Operator Name Role Phone Ilya De Leon MD Primary Care Physician Encounter [facility] [place] Date(s): 09/22/20 - 10/22/20 [facility] [address] [place] [address]- Allergies, Adverse Reactions, Alerts Substance Reaction Severity [...] 01/30/11 Gi lizbeth 1Admin Note: ADMIN BY [facility] 2Admin Note: FLUVIRIN MULTIDOSE ADMINISTERED AT [facility] Medications acetaminophen 500 mg oral tablet 2 tablet = 1,000 mg, By Mouth, 3 times a day, PRN as needed for fever, not to exceed 3000 mg/day take scheduled three times a day, # 100 tablet, 1 Refills, Acute 12/26/20 11:44:00 EDT, 09/24/20 11:43:00 EDT, Tablet, [id number], Partial fill u... Start Date: 09/24/20 Stop Date: 12/26/20 Status: Ordered Cavilon Emollient topical cream 1 application, Topically, 2 times a day, PRN for dry skin, # 454 Gm, 1 Refills, Maintenance, 09/30/19 16:26:00 EDT, Cream, [facility] 3, 1 application Topically 2 times a day,PRN:for dry skin, 158, cm, 08/27/19 13:02:00 EDT, Height, 76, kg... Start Date: 09/30/19 Status: Ordered cetirizine 10 mg oral tablet 1 tablet = 10 mg, By Mouth, Daily, for allergies. Do NOT take with claritin, # 30 tablet, 0 Refills, Maintenance, 07/23/20 11:37:00 EDT, Tablet, [facility], Partial fill upon patient request if the prescription is for a schedule II... Start Date: 07/23/20 Stop Date: 08/22/20 Status: Ordered Claritin 10 mg oral tablet 10 mg, 1, tablet, By Mouth, Daily, # 15 tablet, Refills 3, Tot. Refills 3, Maintenance, 11/06/18 8:33:38 EDT, Route to Pharmacy Electronically, [id number], [facility] Start Date: 11/06/18 Status: Ordered clonazePAM 0.5 mg oral tablet 1 tablet = 0.5 mg, By Mouth, Daily, # 28 tablet, 0 Refills, Maintenance, 10/18/20 11:03:00 EDT, Tablet, [facility], Partial fill upon patient request if the prescription is for a schedule II opioid drug., 158, cm, 10/18/20 10:46:00... Start Date: 10/18/20 Status: Ordered clonazePAM 0.5 mg oral tablet 1 tablet = 0.5 mg, By Mouth, Daily, # 1 tablet, 0 Refills, Maintenance, 10/17/20 9:00:00 EDT, Tablet, [facility] 3, Partial fill upon patient request [...] 0 Refills, Maintenance, 07/16/20 15:11:00 EDT, Tablet, [facility], Partial fill upon patient request if the prescription is f... Start Date: 07/16/20 Status: Ordered Dovonex 0.005% topical cream 1 applicator, Topically, 2 times a day, # 60 Gm, 5 Refills, Maintenance, 07/07/19 17:30:00 EDT, [facility] 3, 1 applicator Topically 2 times [...] Gm, 0 Refills, Maintenance, 04/27/20 14:35:00 EST, [place], [facility] 3, Partial fill upon patient request if theprescription is for a schedule II opioid drug., 1... Start Date: 04/27/20 Stop Date: 05/27/20 Status: Ordered furosemide 20 mg oral tablet 1, tablet, By Mouth, Daily, # 30 tablet, Refills 3, Tot. Refills 0, Maintenance, 10/21/20 11:22:00 EDT, Route to Pharmacy Electronically, [facility] [id number], 158, cm, 10/18/20 10:46:00 EDT, Height, 95.4, kg, 10/16/20 10:11:00 EDT, Dry Weight Start Date: 10/21/20 Status: Ordered hydrocortisone 1% topical cream 1 application, Topically, 2 times a day, Apply to rash areas, # 60 Gm, 3 Refills, Maintenance, 06/04/19 14:52:00 EDT, Cream, [facility], 1 application Topically 2 times [...] 12/26/20 11:39:00 EDT, 09/24/20 11:38:00 EDT, Ointment, [facility] #[id number], Partial fill upon patient request if [...] day, # 30 Gm, 2 Refills, Maintenance, 09/14/20 17:22:00 EDT, Cream, [id number], Partial fill upon patient request if the prescription is for a schedule II opioid drug., 1 application Topically 3 times a day,... Start Date: 09/14/20 Status: Ordered Nizoral 2% topical shampoo See [...] Refills, Soft Stop, 07/27/20 11:50:00 EDT, Cream, [facility], 1 applicationTopically Once,Instr:to skin head to feet, remove b... Start Date: 07/27/20 Status: Ordered predniSONE 5 mg oral tablet 1 tablet = 5 mg, By Mouth, 3 times a day, # 42 tablet, 0 Refills, Maintenance, 10/18/20 11:06:00 EDT, Tablet, [facility], Partial fill upon patient request if the prescription is for a schedule II opioid drug., 158, cm, 10/18/20 10... Start Date: 10/18/20 Stop Date: 11/01/20 Status: Ordered selenium sulfide 2.5% topical lotion See Instructions, APPLY TOPICALLY TO AFFECTED AREA EVERY DAY FOR 7 DAYS, # 120 mL, 3 Refills, Soft Stop, 07/23/20 11:40:00 EDT, [facility], 7, APPLY TOPICALLY TO AFFECTED AREA EVERY DAY FOR 7 DAYS, 158, cm, 07/23/20 11:13:00 EDT, H... Start Date: 07/23/20 Status: Ordered Shingrix intramuscular injection = 0.5 mL, Intramuscular, Once, repeat dose in 2 to 6 months, # 2 each, 0 Refills, Soft Stop, 05/27/20 11:03:00 EDT, Powder, [facility], Partial fill upon patient request if [...] Cream, [facility], Partial fill upon patient request [...] 0 Refills, Maintenance, 09/24/20 11:47:00 EDT, Gel, [facility]/pharmacy #[id number], 1 application Topically 4 times a day,Instr:for knee pain, 158, cm, 09/24/20 10:45:00 EDT, Height, 82, kg, ... Start Date: 09/24/20 Status: Ordered Problem List Condition Effective Dates Status Health Status Inform ant Opioid type dependence, continuous(Confirmed) 1 Active 1Client had been seen by Jazz Francois at [facility]. Client has no-showed to last appt and today.She will be targetted for closing if she does not responde to correspondence that will be sent on 02/14/13 Social History Social History Type Response Smoking Status 5-9 cigarettes (betw een 1/4 to 1/2 pack)/day in last 30 days entered on: 09/08/20 Sex
--- OUTSIDE RECORDS SUMMARY | 2022-11-03 10:35 | XMS_ITS | Continuity of Care Document ---
Author Name Unknown Organization [facility] Address [address] [place] [id number]- Care Team Providers Care Bar Tacker Sewing Machine Name Role Phone Ilya De Leon MD Primary Care Physician Encounter [facility] [place] Date(s): 07/10/19 - 07/17/19 [facility] [address] [address]- [facility] Attending Physician: Ilya De Leon MD Allergies, Adverse [...] 01/30/11 Gi lizbeth 1Admin Note: ADMIN BY [facility] 2Admin Note: FLUVIRIN MULTIDOSE ADMINISTERED AT [facility] Medications Cavilon Emollient topical cream 1 application, Topically, 2 times a day, PRN for dry skin, # 454 Gm, 0 Refills, Maintenance, 07/07/19 17:30:00 EDT, Cream, [facility], 1 application Topically 2 times a day,PRN:for dry skin, 158, cm, 12/24/18 10:25:00 EDT, Height, 76, kg... Start Date: 07/07/19 Status: Ordered Claritin 10 mg oral tablet 10 mg, 1, tablet, By Mouth, Daily, # 15 tablet, Refills 3, Tot. Refills 3, Maintenance, 11/06/18 8:33:38 EDT, Route to Pharmacy Electronically, [id number], [facility] Start Date: 11/06/18 Status: Ordered Dovonex 0.005% topical cream 1 applicator, Topically, 2 times a day, # 60 Gm, 5 Refills, Maintenance, 07/07/19 17:30:00 EDT, [facility], 1 applicator Topically 2 times [...] 3 Refills, Maintenance, 06/04/19 14:52:00 EDT, Cream, [facility], 1 application Topically 2 times [...] AT BEDTIME NEEDED FOR ANXIETY FOR 28 DAYS, # 42 tablet, 0 Refills, Soft Stop, 06/22/19 9:32:00 EDT, [facility], 158, cm, 12/24/18 10:25:00 EDT,... Start Date: 06/22/19 Status: Ordered Medrol Dosepak 4 mg oral tablet per label intructions, By Mouth, Once, as on label, # 1 each, 0 Refills, Soft Stop, 06/27/19 15:04:00 EDT, [facility], 158, cm, 12/24/18 10:25:00 EDT, Height, 76, kg, 04/12/19 15:31:00 EST, Dry Weight Start Date: 06/27/19 Status: Ordered Medrol Dosepak 4 mg oral tablet 1 pack/packet, By Mouth, Once, # 21 tablet, 0 Refills, Soft Stop, 10/04/18 18:15:40 EDT, Tablet Start Date: 10/04/18 Status: Ordered Methadone By Mouth, 0 Refills, Maintenance Start Date: 12/25/11 Status: Ordered permethrin 5% topical cream 1 application, Topically, Once, to skin head to feet, remove by washing after 8 to 14 hours, # 60 Gm, 0 Refills, Soft Stop, 08/08/18 15:08:37 EDT, Cream Start Date: 08/08/18 Status: Ordered selenium sulfide 2.5% topical lotion See Instructions, APPLY TOPICALLY TO AFFECTED AREA EVERY DAY FOR 7 DAYS, # 120 mL, 3 Refills, Maintenance, [facility], 7, APPLY TOPICALLY TO AFFECTED AREA EVERY DAY FOR 7 DAYS, 158, cm, 12/24/18 10:25:00 EDT, Height, 76, kg, 04/12/19 15:31:00 E... Start Date: 06/17/19 Status: Ordered shower grab bar shower grab [...] 0 Refills, Maintenance, 04/06/19 20:19:00 EST, Tablet, [facility], 158, cm, 12/24/18 10:25:00 EDT, Height, 75.5, kg, 04/06/19 17:01:00 EST, Dry Weight Start Date: 04/06/19 Stop Date: 04/13/19 Status: Ordered Problem List Condition Effective Dates Status Health Status Inform ant Opioid type dependence, continuous(Confirmed) 1 Active 1Client had been seen by Jazz Francois at [facility]. Client has no-showed to last appt and today.She will be targetted for closing if she does not responde to correspondence that will be sent on 02/14/13 Social History Social History Type Response Smoking Status 10 or more cigarette s (1/2 pack or more)/day in last 30 days entered on: 01/24/18 Sex
--- OUTSIDE RECORDS SUMMARY | 2022-11-03 10:35 | XMS_ITS | Continuity of Care Document ---
Author Name Unknown Organization 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 Allergies, Adverse Reactions, Alerts Substance Reaction Severity Status penicillin Rash Active Motrin tight throat Rash Active Imitrex Chest pain Active trimethoprim-sulfamethoxazole DS 1 Throa t Hives 17-MAY-2013 07:29:57<$> Unknown Active aspirin Ibuprofen tight throat Rash Active morphine HAND SWELLING Active Toradol Rash Active Compazine throat swells Active Reglan Agitated Active dehydroepiandrosterone 2 Chest pain Act julienne 1By phone, reported hives and throat locking up after taking doses of Bactrim repeatedly for several days 2DHEA Immunizations Given and Recorded Vaccine Date Status Refusal Reason tetanus/diphtheria/pertussis, acel(Tdap) 02/14/17 Recorded influenza virus vaccine, inactivated 1 03/22/12 Gi lizbeth influenza virus vaccine, inactivated 2 01/30/11 Gi lizbeth 1Admin Note: ADMIN BY [facility] 2Admin Note: FLUVIRIN MULTIDOSE ADMINISTERED AT [facility] Medications capsaicin 0.025% topical cream See Instructions, APPLY TO AFFECTED AREA TWICE A DAY, # 60 Gm, 1 Refills, [id number], 30, APPLY TO AFFECTED AREA TWICE A DAY, 155, cm, 04/08/21 11:33:00 EST, Height, 95.9, kg, 12/05/20 10:08:00 EDT, Dry Weight Start Date: 04/17/21 Status: Ordered Cavilon Emollient topical cream 1 application, Topically, 2 times a day, PRN for dry skin, # 454 Gm, 1 Refills, Maintenance, 09/30/19 16:26:00 EDT, Cream, [facility] 3, 1 application Topically 2 times a day,PRN:for dry skin, 158, cm, 08/27/19 13:02:00 EDT, Height, 76, kg... Start Date: 09/30/19 Status: Ordered cetirizine 10 mg oral tablet 1 tablet = 10 mg, By Mouth, Daily, # 30 tablet, 0 Refills, Maintenance, 12/03/20 13:44:00 EDT, Tablet, [facility]acy #[id number], Partial fill upon patient request if the prescription is for a schedule II opioid drug., 158, cm, 12/03/20 13:27:00 EDT, Height,... Start Date: 12/03/20 Status: Ordered Claritin 10 mg oral tablet 10 mg, 1, tablet, By Mouth, Daily, # 15 tablet, Refills 3, Tot. Refills 3, Maintenance, 11/06/18 8:33:38 EDT, Route to Pharmacy Electronically, [id number], [facility] Start Date: 11/06/18 Status: Ordered clindamycin 1% topical gel 1 application, Topically, 2 times a day, # 30 Gm, 0 Refills, Maintenance, 04/08/21 12:14:00 EST, Gel, [facility], Partial fill upon patient request if the prescription is for a schedule II opioid drug., 1 application Topically 2 ti... Start Date: 04/08/21 Status: Ordered clindamycin 150 mg oral capsule See Instructions, 3 capsultes 3 times a day, # 45 capsule, 0 Refills, Acute 01/20/22 14:53:00 EST, 03/17/21 14:50:00 EST, Capsule, [facility], Partial fill upon patient request ifthe prescription is for a schedule II opioid drug.,... Start Date: 03/17/21 Stop Date: 01/20/22 Status: Ordered clonazePAM 0.5 mg oral tablet 1 tablet = 0.5 mg, By Mouth, Daily, TELEVISION REPAIRER checked, # 14 tablet, 0 Refills, Maintenance, 04/18/21 12:09:00 EST, Tablet, [facility]/pharmacy #[id number], Partial fill upon patient request if the prescription is for aschedule II opioid drug., 155, cm, 04/18/21 10:12:0... Start Date: 04/18/21 Stop Date: 05/02/21 Status: Ordered diphenhydrAMINE 25 mg oral tablet 1 tablet = 25 mg, By Mouth, 3 times a day, PRN as needed for itching, Will cause drowsiness, # 30 tablet, 0 Refills, Maintenance, 07/16/20 15:11:00 EDT, Tablet, [facility], Partial fill upon patient request if the prescription is f... Start Date: 07/16/20 Status: Ordered Dovonex 0.005% topical cream 1 applicator, Topically, 2 times a day, # 60 Gm, 5 Refills, Maintenance, 07/07/19 17:30:00 EDT, [facility] 3, 1 applicator Topically 2 times [...] Gm, 0 Refills, Maintenance, 04/27/20 14:35:00 EST, [place], [facility] 3, Partial fill upon patient request if theprescription is for a schedule II opioid drug., 1... Start Date: 04/27/20 Stop Date: 05/27/20 Status: Ordered furosemide 20 mg oral tablet 1, tablet, By Mouth, Daily, # 30 tablet, Refills 3, Tot. Refills 3, Maintenance, 04/18/21 12:11:00 EST, Route to Pharmacy Electronically, [facility]/pharmacy #[id number], 155, cm, 04/18/21 10:12:00 EST, Height, 95.9, kg, 12/05/20 10:08:00 EDT, Dry Weight Start Date: 04/18/21 Status: Ordered Gauze Pad (2 X 2) See Instructions, # 100 each, Refills 1, Tot. Refills 1, Maintenance, Apply to abdominal wound 1-2xdaily as directed, 04/08/21 12:14:00 EST, Supply, 155, cm, 04/08/21 11:33:00 EST, Height, 95.9, kg,12/05/20 10:08:00 EDT, Dry Weight Start Date: 04/08/21 Status: Ordered halobetasol 0.05% topical ointment See Instructions, APPLY A THIN FILM TO THE AFFECTED SKIN AND RUB IN GENTLY AND COMPLETELY TWICE A DAY, # 50 Gm, 1 Refills, [facility] [id number], 30, APPLY A THIN FILM TO THE AFFECTED SKIN AND RUB IN GENTLY AND COMPLETELY TWICE A DAY, 155, cm, 12/05/20 10:0... Start Date: 03/15/21 Status: Ordered hydrocortisone 1% topical cream 1 application, Topically, 2 times a day, Apply to rash areas, # 60 Gm, 3 Refills, Maintenance, 06/04/19 14:52:00 EDT, Cream, [facility] 3, 1 application Topically 2 times a day,Instr:Apply to rash areas, 158, cm, 12/24/18 10:25:00 EDT, Hei... Start Date: 06/04/19 Status: Ordered ketoconazole 2% topical shampoo See Instructions, APPLY 1 APPLICATOR TOPICALLY 3X PER WEEK, # 120 mL, 3 Refills, [id number], 30, APPLY 1 APPLICATOR TOPICALLY 3X PER WEEK, 155, cm, 03/17/21 7:53:00 EST, Height, 95.9, kg, 12/05/20 10:08:00 EDT, Dry Weight Start Date: 03/21/21 Status: Ordered left soft knee brace left soft knee brace, See Instructions, # 1 each, Refills 0, Tot. Refills 0, Maintenance, arthritis, 10/18/20 10:59:00 EDT, Supply Start Date: 10/18/20 Status: Ordered Methadone By Mouth, 0 Refills, Maintenance Start Date: 12/25/11 Status: Ordered mupirocin 2% topical cream 1 application, Topically, 3 times a day, # 30 Gm, 2 Refills, Maintenance, 03/08/21 10:26:00 EST, Cream, [facility]/pharmacy #[id number], Partial fill upon patient request if the prescription is for a schedule II opioid drug., 1 application Topically 3 times a day,... Start Date: 03/08/21 Status: Ordered Briscoe 0.65% nasal spray 2 sprays, Nares, Both, 4 times a day, # 1 each, 0 Refills, Maintenance, 12/03/20 13:46:00 EDT, [facility]/pharmacy #[id number], Partial fill upon patient request [...] Refills, Soft Stop, 07/27/20 11:50:00 EDT, Cream, [facility], 1 applicationTopically Once,Instr:to skin head to feet, remove b... Start Date: 07/27/20 Status: Ordered predniSONE 10 mg oral tablet 1 tablet = 10 mg, By Mouth, Daily, # 14 tablet, 0 Refills, Maintenance, 04/18/21 12:08:00 EST, [facility]/pharmacy #[id number], Partial fill upon patient request if the prescription is for a schedule II opioid drug., 155, cm, 04/18/21 10:12:00 EST, Height, 95.9, k... Start Date: 04/18/21 Stop Date: 05/02/21 Status: Ordered selenium sulfide 2.5% topical lotion See Instructions, APPLY TOPICALLY TO AFFECTED AREA EVERY DAY FOR 7 DAYS, # 120 mL, 3 Refills, Soft Stop, 03/08/21 10:26:00 EST, [facility]/pharmacy #[id number], 7, APPLY TOPICALLY TO AFFECTED AREA EVERY DAY FOR 7DAYS, 155, cm, 12/05/20 10:08:00 EDT, Height, 95.9,... Start Date: 03/08/21 Status: Ordered Shingrix intramuscular injection = 0.5 mL, Intramuscular, Once, repeat dose in 2 to 6 months, # 2 each, 0 Refills, Soft Stop, 05/27/20 11:03:00 EDT, Powder, [facility], Partial fill upon patient request if [...] 1 Refills, Maintenance, 03/10/20 18:21:00 EST, Cream, [facility], Partial fill upon patient request if the prescription is fora schedule II opioid drug., 1 application Topically... Start Date: 03/10/20 Status: Ordered tiZANidine 2 mg oral tablet 2 mg, 1, tablet, By Mouth, 3 times a day, for 30 days, # 90 tablet, Refills 0, Tot. Refills 0, Acute 05/08/21 12:19:00 EST, 04/08/21 12:19:00 EST, Route to Pharmacy Electronically, [facility], Partial fill upon patient request if t... Start Date: 04/08/21 Stop Date: 05/08/21 Status: Ordered Valium 5 mg oral tablet 5 mg, 1, tablet, By Mouth, Daily at bedtime, PRN, # 3 tablet, Refills 0, Tot. Refills 0, Maintenance, Spasm, 04/03/21 11:16:00 EST, Route to Pharmacy Electronically, [facility], Partialfill upon patient request if the prescription is fo... Start Date: 04/03/21 Status: Ordered Problem List Condition Effective Dates Status Health Status Inform ant Anxiety(Confirmed) Active Opioid type dependence, continuous(Confirmed) 1 Active Osteoarthritis of left knee(Confirmed) Active Psoriasis(Confirmed) Active Severe obesity(Confirmed) Active 1Client had been seen by Jazz Francois at [facility]. Client has no-showed to last appt and today.She will be targetted for closing if she does not responde to correspondence that will be sent on 02/14/13 Social History Social History Type Response Smoking Status 10 or more cigarette s (1/2 pack or more)/day in last 30 days entered on: 04/18/21 Sex
--- OUTSIDE RECORDS SUMMARY | 2022-11-03 10:35 | XMS_ITS | Continuity of Care Document ---
Author Name Unknown Organization [facility] Address Unknown Care Team Providers Care Fire Control Officer Name Role Phone Ilya De Leon MD Primary Care Physician Encounter [facility] [place] Date(s): 09/14/21 - 10/14/21 [facility] Allergies, Adverse Reactions, Alerts Substance Reaction [...] influenza virus vaccine, inactivated 1 03/22/12 Gi ilzbeth influenza virus vaccine, inactivated 2 01/30/11 Gi lizbeth 1Admin Note: ADMIN BY [facility] 2Admin Note: FLUVIRIN MULTIDOSE ADMINISTERED AT [facility] Medications acetaminophen 650 mg oral tablet, extended release 2 tablet = 1,300 mg, By Mouth, Every 8 hours, # 100 tablet, 1 Refills, Maintenance, 06/29/21 15:10:00 EDT, ER Tablet, [facility]/pharmacy #[id number], Partial fill upon patient request if the prescription is for a schedule II opioid drug., 155, cm, 05/30/21 15:34:... Start Date: 06/29/21 Status: Ordered capsaicin 0.025% topical cream See Instructions, APPLY TO AFFECTED AREA TWICE A DAY, # 60 Gm, 1 Refills, [id number], 30, APPLY TO AFFECTED AREA TWICE A DAY, 155, cm, 05/30/21 15:34:00 EDT, Height, 95.9, kg, 12/05/20 10:08:00 EDT, Dry Weight Start Date: 05/31/21 Status: Ordered Cavilon Emollient topical cream 1 application, Topically, 2 times a day, PRN for dry skin, # 454 Gm, 1 Refills, Maintenance, 09/30/19 16:26:00 EDT, Cream, [facility], 1 application Topically 2 times a day,PRN:for dry skin, 158, cm, 08/27/19 13:02:00 EDT, Height, 76, kg... Start Date: 09/30/19 Status: Ordered clonazePAM 0.5 mg oral tablet 1 tablet = 0.5 mg, By Mouth, Daily at bedtime, May fill 10/14/21, # 7 tablet, 0 Refills, Maintenance,10/12/21 15:30:00 EDT, Tablet, [facility], MOLDING ASSOCIATE reviewed, covering for Dr. De Leon, 155, cm, 09/28/21 12:06:00 EDT, Height, 106.5, k... Start Date: 10/12/21 Stop Date: 10/19/21 Status: Ordered clonazePAM 0.5 mg oral tablet 1 tablet = 0.5 mg, By Mouth, Daily at bedtime, May cammie l 09/22/21, # 7 tablet, 0 Refills, Maintenance, 09/21/21 7:19:00 EDT, Tablet, [facility], MOLDING ASSOCIATE reviewed, covering for Dr. De Leon, 155, cm, 09/15/21 10:14:00 EDT, Height, 106.5,... Start Date: 09/21/21 Stop Date: 09/28/21 Status: Ordered coal tar topical 2% foam 1 application, Topically, 4 times a day, # 100 Gm, 1 Refills, Maintenance, 09/28/21 12:24:00 EDT, Foam, [facility], Partial fill upon patient request if the prescription is for a schedule II opioid drug., 1 application Topically 4... Start Date: 09/28/21 Status: Ordered Dovonex 0.005% topical cream 1 applicator, Topically, 2 times a day, # 60 Gm, 5 Refills, Maintenance, 07/07/19 17:30:00 EDT, [facility] 3, 1 applicator Topically 2 times a day,x30 days, 158, cm, 12/24/18 10:25:00 EDT, Height, 76, kg, 04/12/19 15:31:00 EST, Dry Weight Start Date: 07/07/19 Stop Date: 01/03/20 Status: Ordered Eucerin Unscented topical lotion See Instructions, apply as frequently as needed, # 1 each, 0 Refills, Maintenance, 09/28/21 12:23:00 EDT, [facility], Partial fill upon patient request if the prescription is for a schedule II opioid drug., apply as frequently as n... Start Date: 09/28/21 Status: Ordered fluticasone 50 mcg/inh nasal spray 1 sprays, Nares, Both, 2 times a day, in each nostril. for allergies, # 16 Gm, 0 Refills, Maintenance, 04/27/20 14:35:00 EST, [place], [facility] 3, Partial fill upon patient request if theprescription is for a schedule II opioid drug., 1... Start Date: 04/27/20 Stop Date: 05/27/20 Status: Ordered halobetasol 0.05% topical ointment See Instructions, APPLY A THIN FILM TO THE AFFECTED SKIN AND RUB IN GENTLY AND COMPLETELY TWICE A DAY, # 50 Gm, 1 Refills, [facility] [id number], 30, APPLY A THIN FILM TO THE AFFECTED SKIN AND RUB IN GENTLY AND COMPLETELY TWICE A DAY, 155, cm, 12/05/20 10:0... Start Date: 03/15/21 Status: Ordered hydrocortisone 1% topical cream 1 application, Topically, 2 times a day, # 30 Gm, 0 Refills, Maintenance, 06/17/21 11:42:00 EDT, Cream, [facility] 3, Partial fill upon patient request if the prescription is for a schedule II opioid drug., 1 application Topically 2 times... Start Date: 06/17/21 Status: Ordered hydrOXYzine hydrochloride 25 mg oral tablet 1 capsule, By Mouth, 3 times a day, PRN for itching, for 30 days, # 90 capsule, 1 Refills, Acute 10/23/21 14:41:00 EDT, 08/24/21 14:41:00 EDT, Capsule, [facility], Partial fill upon patient request if the prescription is for a sche... Start Date: 08/24/21 Stop Date: 10/23/21 Status: Ordered ketoconazole 2% topical shampoo See Instructions, APPLY 1 APPLICATOR TOPICALLY 3X PER WEEK, # 120 mL, 3 Refills, [id number], 30, APPLY 1 APPLICATOR TOPICALLY 3X PER WEEK, 155, cm, 05/30/21 15:34:00 EDT, Height, 95.9, kg, 12/05/20 10:08:00 EDT, Dry Weight Start Date: 08/02/21 Status: Ordered loratadine 10 mg oral tablet 1, tablet, By Mouth, Daily, # 15 tablet, Refills 5, Tot. Refills 5, Maintenance, 08/19/21 9:15:00 EDT, [id number], cm, 05/30/21 15:34:00 EDT, Height, 95.9, kg, 12/05/20 10:08:00 EDT, Dry Weight Start Date: 08/19/21 Status: Ordered Methadone By Mouth, 0 Refills, Maintenance Start Date: 12/25/11 Status: Ordered mupirocin 2% topical cream 1 application, Topically, 3 times a day, # 30 Gm, 2 Refills, Maintenance, 03/08/21 10:26:00 EST, Cream, [facility]/pharmacy #[id number], Partial fill upon patient request if the prescription is for a schedule II opioid drug., 1 application Topically 3 times a day,... Start Date: 03/08/21 Status: Ordered permethrin 5% topical cream 1 application, Topically, Once, to skin head to feet, remove by washing after 8 to 14 hours, # 60 Gm, 0 Refills, Soft Stop, 07/27/20 11:50:00 EDT, Cream, [facility], 1 applicationTopically Once,Instr:to skin head to feet, remove b... Start Date: 07/27/20 Status: Ordered predniSONE 10 mg oral tablet 1 tablet = 10 mg, By Mouth, 2 times a day, for 7 days, Fill 10/14/21, # 14 tablet, 0 Refills, Physician Stop 10/19/21 15:30:00 EDT, 10/12/21 15:30:00 EDT, [facility], 155, cm, 09/28/21 12:06:00 EDT, Height, 106.5, kg, 09/14/21 9:38:0... Start Date: 10/12/21 Stop Date: 10/19/21 Status: Ordered selenium sulfide 2.5% topical lotion See Instructions, APPLY TOPICALLY TO AFFECTED AREA EVERY DAY FOR 7 DAYS, # 120 mL, 3 Refills, Soft Stop, 09/28/21 12:25:00 EDT, [facility], 7, APPLY TOPICALLY TO AFFECTED AREA EVERY DAY FOR 7 DAYS, 155, cm, 09/28/21 12:06:00 EDT, H... Start Date: 09/28/21 Status: Ordered tiZANidine 2 mg oral tablet 1, tablet, By Mouth, 3 times a day, # 60 tablet, Refills 0, Route to Pharmacy Electronically, [place] [id number], 155, cm, 05/03/21 14:39:00 EST, Height, 95.9, kg, 12/05/20 10:08:00 EDT, Dry Weight Start Date: 05/09/21 Status: Ordered traMADol 50 mg oral tablet 1 tablet = 50 mg, By Mouth, Every 8 hours, PRN Pain , Severe, for 7 days, for 10/14/21, # 21 tablet, 0 Refills, Acute 10/19/21 15:30:00 EDT, 10/12/21 15:30:00 EDT, Tablet, [facility], Partial fill upon patient request if the prescrip... Start Date: 10/12/21 Stop Date: 10/19/21 Status: Ordered Problem List Condition Effective Dates Status Health Status Inform ant Anxiety(Confirmed) Active Opioid type dependence, continuous(Confirmed) 1 Active Osteoarthritis of left knee(Confirmed) Active Psoriasis(Confirmed) Active Severe obesity(Confirmed) Active 1Client had been seen by Jazz Francois at [facility]. Client has no-showed to last appt and today.She will be targetted for closing if she does not responde to correspondence that will be sent on 02/14/13 Social History Social History Type Response Smoking Status 10 or more cigarette s (1/2 pack or more)/day in last 30 days entered on: 04/18/21 Sex
--- OUTSIDE RECORDS SUMMARY | 2022-11-03 10:35 | XMS_ITS | Continuity of Care Document ---
Author Name Unknown Organization [facility] Address [address] [place] [address]- Care Team Providers Care Community Services Officer Name Role Phone Ilya De Leon MD Primary Care Physician Encounter [facility] Date(s): 10/24/19 - 12/14/19 [facility] [address] [place] [address]- [facility] Attending Physician: Ilya De Leon MD Admitting Physician: Ilya De Leon MD Allergies, Adverse Reactions, Alerts Substance Reaction Severity Status penicillin Rash Active aspirin Ibuprofen tight throat Rash Active morphine HAND SWELLING Active Toradol Rash Active Motrin tight throat Rash Active Imitrex Chest pain Active Compazine throat swells Active Reglan Agitated Active trimethoprim-sulfamethoxazole DS 1 Carolyn t Hives 17-MAY-2013 07:29:57<$> Unknown Active dehydroepiandrosterone 2 Chest pain Act julienne 1By phone, reported hives and throat locking up after taking doses of Bactrim repeatedly for several days 2DHEA Immunizations Given and Recorded Vaccine Date Status Refusal Reason influenza virus vaccine, inactivated 1 03/22/12 Gi lizbeth influenza virus vaccine, inactivated 2 01/30/11 Gi lizbeth 1Admin Note: ADMIN BY [facility] 2Admin Note: FLUVIRIN MULTIDOSE ADMINISTERED AT [facility] Medications Cavilon Emollient topical cream 1 application, Topically, 2 times a day, PRN for dry skin, # 454 Gm, 1 Refills, Maintenance, 09/30/19 16:26:00 EDT, Cream, [facility], 1 application Topically 2 times a day,PRN:for dry skin, 158, cm, 08/27/19 13:02:00 EDT, Height, 76, kg... Start Date: 09/30/19 Status: Ordered Claritin 10 mg oral tablet 10 mg, 1, tablet, By Mouth, Daily, # 15 tablet, Refills 3, Tot. Refills 3, Maintenance, 11/06/18 8:33:38 EDT, Route to Pharmacy Electronically, [id number], [facility] Start Date: 11/06/18 Status: Ordered Dovonex 0.005% topical cream 1 applicator, Topically, 2 times a day, # 60 Gm, 5 Refills, Maintenance, 07/07/19 17:30:00 EDT, [facility], 1 applicator Topically 2 [...] 3 Refills, Maintenance, 06/04/19 14:52:00 EDT, Cream, [facility], 1 application Topically 2 [...] FOR ANXIETY FOR 28 DAYS Can fill 12/11, # 42 tablet, 0 Refills, Soft Stop, 12/10/19 9:52:00 EDT, [facility], 158, cm, ... Start Date: 12/10/19 Status: Ordered Medrol Dosepak 4 mg oral tablet per label intructions, By Mouth, Once, as on label, # 1 each, 0 Refills, Soft Stop, 08/11/19 20:08:00 EDT, [facility], 158, cm, 12/24/18 10:25:00 EDT, Height, [...] 0 Refills, Soft Stop, 08/27/19 14:17:00 EDT, [facility], 1 applicator Topically 3x per week, 158, [...] DAYS, # 120 mL, 3 Refills, Maintenance, [facility], 7, APPLY TOPICALLY TO AFFECTED AREA EVERY DAY FOR 7 DAYS, 158, cm, 08/27/19 13:02:00 EDT, Height, 76, kg, 04/12/19 15:31:00 E... Start Date: 12/01/19 Status: Ordered shower grab bar shower grab [...] 0 Refills, Maintenance, 04/06/19 20:19:00 EST, Tablet, [facility], 158, cm, 12/24/18 10:25:00 EDT, Height, 75.5, kg, 04/06/19 17:01:00 EST, Dry Weight Start Date: 04/06/19 Stop Date: 04/13/19 Status: Ordered Problem List Condition Effective Dates Status Health Status Inform ant Opioid type dependence, continuous(Confirmed) 1 Active 1Client had been seen by Jazz Francois at [facility]. Client has no-showed to last appt and today.She will be targetted for closing if she does not responde to correspondence that will be sent on 02/14/13 Social History Social History Type Response Smoking Status 10 or more cigarette s (1/2 pack or more)/day in last 30 days entered on: 01/24/18 Sex
--- OUTSIDE RECORDS SUMMARY | 2022-11-03 10:35 | XMS_ITS | Continuity of Care Document ---
Author Name Unknown Organization [facility] Address Unknown Care Team Providers Care Orthopedically Impaired Teacher Name Role Phone Haley NEWMAN, Ilya Primary Care Physician Encounter [facility] Date(s): 06/21/21 - 07/21/21 [facility] Allergies, Adverse Reactions, Alerts Substance Reaction Severity [...] FLUVIRIN MULTIDOSE ADMINISTERED AT [facility] Medications acetaminophen 650 mg oral tablet, extended release 2 tablet = 1,300 mg, By Mouth, Every 8 hours, # 100 tablet, 1 Refills, Maintenance, 06/29/21 15:10:00 EDT, ER Tablet, [facility]/pharmacy #[id number], Partial fill upon patient request if the prescription is for a schedule II opioid drug., 155, cm, 05/30/21 15:34:... Start Date: 06/29/21 Status: Ordered capsaicin 0.025% topical cream See Instructions, APPLY TO AFFECTED AREA TWICE A DAY, # 60 Gm, 1 Refills, [id number], 30, APPLY TO AFFECTED AREA TWICE A DAY, 155, cm, 05/30/21 15:34:00 EDT, Height, 95.9, kg, 12/05/20 10:08:00 EDT, Dry Weight Start Date: 05/31/21 Status: Ordered Cavilon Emollient topical cream 1 application, Topically, 2 times a day, PRN for dry skin, # 454 Gm, 1 Refills, Maintenance, 09/30/19 16:26:00 EDT, Cream, [facility], 1 application Topically 2 times a day,PRN:for dry skin, 158, cm, 08/27/19 13:02:00 EDT, Height, 76, kg... Start Date: 09/30/19 Status: Ordered clonazePAM 0.5 mg oral tablet 1 tablet = 0.5 mg, By Mouth, Daily, mAY FILL 06/21/21, # 14 tablet, 0 Refills, Maintenance, 06/21/2215:00:00 EDT, Tablet, [facility]/pharmacy #[id number], [employer] reviewed, covering for Dr. De Leon, 155, cm, 05/30/2214:34:00 EDT, Height, 95.9, kg, 12/05/20 10:08:00 E... Start Date: 06/20/21 Stop Date: 07/04/21 Status: Ordered clonazePAM 0.5 mg oral tablet 1 tablet = 0.5 mg, By Mouth, Daily, for 07/22, # 7 tablet, 0 Refills, Maintenance, 07/21/21 10:30:00EDT, Tablet, [facility], [employer] reviewed, covering for Dr. De Leon, 155, cm, 05/30/21 15:34:00 EDT, Height, 95.9, kg, 12/05/20 10:08:0... Start Date: 07/21/21 Stop Date: 07/28/21 Status: Ordered Dovonex 0.005% topical cream 1 applicator, Topically, 2 times a day, # 60 Gm, 5 Refills, Maintenance, 07/07/19 17:30:00 EDT, [facility], 1 applicator Topically 2 times a day,x30 days, 158, cm, 12/24/18 10:25:00 EDT, Height, 76, kg, 04/12/19 15:31:00 EST, Dry Weight Start Date: 07/07/19 Stop Date: 01/03/20 Status: Ordered fluticasone 50 mcg/inh nasal spray 1 sprays, Nares, Both, 2 times a day, in each nostril. for allergies, # 16 Gm, 0 Refills, Maintenance, 04/27/20 14:35:00 EST, [place], [facility], Partial fill upon patient request if theprescription is for a schedule II opioid drug., 1... Start Date: 04/27/20 Stop Date: 05/27/20 Status: Ordered furosemide 20 mg oral tablet 1, tablet, By Mouth, Daily, # 30 tablet, Refills 3, Tot. Refills 3, Maintenance, 04/18/21 12:11:00 EST, Route to Pharmacy Electronically, [facility]/pharmacy #[id number], 155, cm, 04/18/21 10:12:00 EST, Height, 95.9, kg, 12/05/20 10:08:00 EDT, Dry Weight Start Date: 04/18/21 Status: Ordered halobetasol 0.05% topical ointment See Instructions, APPLY A THIN FILM TO THE AFFECTED SKIN AND RUB IN GENTLY AND COMPLETELY TWICE A DAY, # 50 Gm, 1 Refills, [id number], 30, APPLY A THIN FILM TO THE AFFECTED SKIN AND RUB IN GENTLY AND COMPLETELY TWICE A DAY, 155, cm, 12/05/20 10:0... Start Date: 03/15/21 Status: Ordered hydrocortisone 1% topical cream 1 application, Topically, 2 times a day, # 30 Gm, 0 Refills, Maintenance, 06/17/21 11:42:00 EDT, Cream, [facility], Partial fill upon patient request if the prescription is for a schedule II opioid drug., 1 application Topically 2 times... Start Date: 06/17/21 Status: Ordered ketoconazole 2% topical shampoo See Instructions, APPLY 1 APPLICATOR TOPICALLY 3X PER WEEK, # 120 mL, 3 Refills, [facility] [id number], 30, APPLY 1 APPLICATOR TOPICALLY 3X PER WEEK, 155, cm, 03/17/21 7:53:00 EST, Height, 95.9, kg, 12/05/20 10:08:00 EDT, Dry Weight Start Date: 03/21/21 Status: Ordered loratadine 10 mg oral tablet 1, tablet, By Mouth, Daily, # 15 tablet, Refills 3, Route to Pharmacy Electronically, [id number], 155, cm, 05/30/21 15:34:00 EDT, Height, 95.9, kg, 12/05/20 10:08:00 EDT, Dry Weight Start Date: 06/21/21 Status: Ordered Methadone By Mouth, 0 Refills, Maintenance Start Date: 12/25/11 Status: Ordered mupirocin 2% topical cream 1 application, Topically, 3 times a day, # 30 Gm, 2 Refills, Maintenance, 03/08/21 10:26:00 EST, [id number] fill upon patient request if the prescription is for a schedule II opioid drug., 1 application Topically 3 times a day,... Start Date: 03/08/21 Status: Ordered permethrin 5% topical cream 1 application, Topically, Once, to skin head to feet, remove by washing after 8 to 14 hours, # 60 Gm, 0 Refills, Soft Stop, 07/27/20 11:50:00 EDT, Cream, [facility], 1 applicationTopically Once,Instr:to skin head to feet, remove b... Start Date: 07/27/20 Status: Ordered predniSONE 10 mg oral tablet 1 tablet, By Mouth, Daily, for 7 days, for 07/22, # 7 tablet, 0 Refills, Physician Stop 07/28/21 10:30:00 EDT, 07/21/21 10:30:00 EDT, [facility], 155, cm, 05/30/21 15:34:00 EDT, Height, 95.9, kg, 12/05/20 10:08:00 EDT, Dry Weight Start Date: 07/21/21 Stop Date: 07/28/21 Status: Ordered selenium sulfide 2.5% topical lotion See Instructions, APPLY TOPICALLY TO AFFECTED AREA EVERY DAY FOR 7 DAYS, # 120 mL, 3 Refills, Soft Stop, 04/26/21 18:07:00 EST, [facility]/pharmacy #[id number], 7, APPLY TOPICALLY TO AFFECTED AREA EVERY DAY FOR 7DAYS, 155, cm, 04/18/21 10:12:00 EST, Height, 95.9,... Start Date: 04/26/21 Status: Ordered tiZANidine 2 mg oral tablet 1, tablet, By Mouth, 3 times a day, # 60 tablet, Refills 0, Route to Pharmacy Electronically, [id number], 155, cm, 05/03/21 14:39:00 EST, Height, 95.9, kg, 12/05/20 10:08:00 EDT, Dry Weight Start Date: 05/09/21 Status: Ordered Problem List Condition Effective Dates Status Health Status Inform ant Anxiety(Confirmed) Active Opioid type dependence, continuous(Confirmed) 1 Active Osteoarthritis of left knee(Confirmed) Active Psoriasis(Confirmed) Active Severe obesity(Confirmed) Active 1Client had been seen by Jazz Francois at [facility]. Client has no-showed to last appt and today.She will be targetted for closing if she does not responde to correspondence that will be sent on 02/14/13 Social History Social History Type Response Smoking Status 10 or more cigarette s (1/2 pack or more)/day in last 30 days entered on: 04/18/21 Sex
--- OUTSIDE RECORDS SUMMARY | 2022-11-03 10:35 | XMS_ITS | Continuity of Care Document ---
Author Name Unknown Organization [facility] ter Address [address] [place] [id number]- Care Team Providers Care Sugar Trucker Name Role Phone Ilya De Leon MD Primary Care Physician Encounter [facility] [place] Date(s): 10/16/20 - 10/16/[address] [id number]- Encounter Diagnosis Anxiety(Final) - 10/16/20 Discharge Disposition: A-D/C Home Attending Physician: Cassi Chung MD Admitting Physician: Cassi Chung MD Referring Physician: Not on Staff, Referring MD Allergies, Adverse Reactions, Alerts Substance Reaction [...] 01/30/11 Gi lizbeth 1Admin Note: ADMIN BY [facility] 2Admin Note: FLUVIRIN MULTIDOSE ADMINISTERED AT [facility] Medications acetaminophen 500 mg oral tablet 2 tablet = 1,000 mg, By Mouth, 3 times a day, PRN as needed for fever, not to exceed 3000 mg/day take scheduled three times a day, # 100 tablet, 1 Refills, Acute 12/26/20 11:44:00 EDT, 09/24/20 11:43:00 EDT, Tablet, [facility]/pharmacy #[id number], Partial fill u... Start Date: 09/24/20 Stop Date: 12/26/20 Status: Ordered Cavilon Emollient topical cream 1 application, Topically, 2 times a day, PRN for dry skin, # 454 Gm, 1 Refills, Maintenance, 09/30/19 16:26:00 EDT, Cream, [facility] 3, 1 application Topically 2 times a day,PRN:for dry skin, 158, cm, 08/27/19 13:02:00 EDT, Height, 76, kg... Start Date: 09/30/19 Status: Ordered cetirizine 10 mg oral tablet 1 tablet = 10 mg, By Mouth, Daily, for allergies. Do NOT take with claritin, # 30 tablet, 0 Refills, Maintenance, 07/23/20 11:37:00 EDT, Tablet, [facility], Partial fill upon patient request if the prescription is for a schedule II... Start Date: 07/23/20 Stop Date: 08/22/20 Status: Ordered Claritin 10 mg oral tablet 10 mg, 1, tablet, By Mouth, Daily, # 15 tablet, Refills 3, Tot. Refills 3, Maintenance, 11/06/18 8:33:38 EDT, Route to Pharmacy Electronically, [id number], [facility] Start Date: 11/06/18 Status: Ordered clonazePAM 0.5 mg oral tablet 1 tablet = 0.5 mg, By Mouth, Daily, # 28 tablet, 0 Refills, Maintenance, 09/22/20 12:58:00 EDT, Tablet, [facility], Partial fill upon patient request if the prescription is for a schedule II opioid drug., 158, cm, 09/08/20 14:36:00... Start Date: 09/22/20 Status: Ordered clonazePAM 0.5 mg oral tablet 1 tablet = 0.5 mg, By Mouth, Daily, # 1 tablet, 0 Refills, Maintenance, 10/17/20 9:00:00 EDT, Tablet, [facility] 3, Partial fill upon patient request [...] 0 Refills, Maintenance, 07/16/20 15:11:00 EDT, Tablet, [facility], Partial fill upon patient request if the prescription is f... Start Date: 07/16/20 Status: Ordered Dovonex 0.005% topical cream 1 applicator, Topically, 2 times a day, # 60 Gm, 5 Refills, Maintenance, 07/07/19 17:30:00 EDT, [facility] 3, 1 applicator Topically 2 times [...] Gm, 0 Refills, Maintenance, 04/27/20 14:35:00 EST, [place], [facility] 3, Partial fill upon patient request if theprescription is for a schedule II opioid drug., 1... Start Date: 04/27/20 Stop Date: 05/27/20 Status: Ordered furosemide 20 mg oral tablet 20 mg, 1, tablet, By Mouth, Daily, # 30 tablet, Refills 1, Tot. Refills 1, Maintenance, 08/27/20 16:12:00 EDT, Route to Pharmacy Electronically, [facility]/pharmacy #[id number], Partial fill upon patient request if the prescription is for a schedule II opioid drug... Start Date: 08/27/20 Status: Ordered halobetasol 0.05% topical ointment 1 application, Topically, 2 times a day, apply in a thin film to the affected skin and rub in gently and completely, # 50 Gm, 1 Refills, Acute 10/18/20 14:15:00 EDT, 09/24/20 13:11:00 EDT, Ointment, [facility]/pharmacy #[id number], Partial fill upon patient reques... Start Date: 09/24/20 Stop Date: 10/18/20 Status: Ordered hydrocortisone 1% topical cream 1 application, Topically, 2 times a day, Apply to rash areas, # 60 Gm, 3 Refills, Maintenance, 06/04/19 14:52:00 EDT, Cream, [facility] 3, 1 application Topically 2 times a day,Instr:Apply to rash areas, 158, cm, 12/24/18 10:25:00 EDT, Hei... Start Date: 06/04/19 Status: Ordered left soft knee brace left soft knee brace, See Instructions, # 1 each, Refills 0, Tot. Refills 0, Maintenance, arthritis, 09/23/20 14:52:00 EDT, Supply Start Date: 09/23/20 Status: Ordered lidocaine 5% topical ointment 1 application, Topically, 3 times a day, wash hands thoroughly after application, # 50 Gm, 2 Refills, Acute 12/26/20 11:39:00 EDT, 09/24/20 11:38:00 EDT, Ointment, [facility]/pharmacy #[id number], Partial fill upon patient request if [...] 2 Refills, Maintenance, 09/14/20 17:22:00 EDT, [id number] fill upon patient request if the prescription is for a schedule II opioid drug., 1 application Topically 3 times a day,... Start Date: 09/14/20 Status: Ordered Nizoral 2% topical shampoo See Instructions, 1 applicator Topically 3x per week, # 120 mL, 3 Refills, Soft Stop, 08/12/20 10:30:00 EDT, [id number] 1 applicator Topically 3x per week, 158, cm, 07/23/20 11:13:00 EDT, Height, 82, kg, 07/21/20 20:18:00 EDT, Dry Weight Start Date: 08/12/20 Status: Ordered permethrin 5% topical cream 1 application, Topically, Once, to skin head to feet, remove by washing after 8 to 14 hours, # 60 Gm, 0 Refills, Soft Stop, 07/27/20 11:50:00 EDT, Cream, [facility], 1 applicationTopically Once,Instr:to skin head to feet, remove b... Start Date: 07/27/20 Status: Ordered predniSONE 5 mg oral tablet 1 tablet = 5 mg, By Mouth, 2 times a day, # 14 tablet, 0 Refills, Maintenance, 10/15/20 13:08:00 EDT, Tablet, [facility], Partial fill upon patient request if the prescription is for a schedule II opioid drug., 158, cm, 09/24/20 10... Start Date: 10/15/20 Stop Date: 10/22/20 Status: Ordered predniSONE 5 mg oral tablet 1 tablet = 5 mg, By Mouth, 3 times a day, # 21 tablet, 0 Refills, Maintenance, 10/06/20 15:03:00 EDT, Tablet[id number] Partial fill upon patient request if the prescription is for a schedule II opioid drug., 158, cm, 09/24/20 10:45:00 EDT,... Start Date: 10/06/20 Stop Date: 10/13/20 Status: Ordered selenium sulfide 2.5% topical lotion See Instructions, APPLY TOPICALLY TO AFFECTED AREA EVERY DAY FOR 7 DAYS, # 120 mL, 3 Refills, Soft Stop, 07/23/20 11:40:00 EDT, [facility], 7, APPLY TOPICALLY TO AFFECTED AREA EVERY DAY FOR 7 DAYS, 158, cm, 07/23/20 11:13:00 EDT, H... Start Date: 07/23/20 Status: Ordered Shingrix intramuscular injection = 0.5 mL, Intramuscular, Once, repeat dose in 2 to 6 months, # 2 each, 0 Refills, Soft Stop, 05/27/20 11:03:00 EDT, Powder, [facility], Partial fill upon patient request if [...] 1 Refills, Maintenance, 03/10/20 18:21:00 EST, Cream, [facility] 3, Partial fill upon patient request [...] 0 Refills, Maintenance, 09/24/20 11:47:00 EDT, Gel, [facility]/pharmacy #[id number], 1 application Topically 4 times a day,Instr:for knee pain, 158, cm, 09/24/20 10:45:00 EDT, Height, 82, kg, ... Start Date: 09/24/20 Status: Ordered Problem List Condition Effective Dates Status Health Status Inform ant Opioid type dependence, continuous(Confirmed) 1 Active 1Client had been seen by Jazz Francois at [facility]. Client has no-showed to last appt and today.She will be targetted for closing if she does not responde to correspondence that will be sent on 02/14/13 Vital Signs Most recent to oldest [Reference Range]: 1 2 Weight 95.4 kg (10/16/20 10:11 AM) Oxygen Saturation [94-100 %] 100 % (10/16/20 10:11 AM) 100 % (10/16/20 10:03 AM) Pulse Rate [55-90 bpm] 65 bpm (10/16/20 10:11 AM) 79 bpm (10/16/20 10:03 AM) Blood Pressure [90-138/55-84 mm Hg] 122/ 71mm Hg (10/16/20 10:11 AM) Respiratory Rate [16-30 br/min] 18 br/mi n (10/16/20 10:11 AM) 18 br/min (10/16/20 10:03 AM) Temperature [96.8-100.4 DegF] 98.6 DegF (10/16/20 10:11 AM) Mode of Delivery (Oxygen) Room air (10/16/20 10:11 AM) Room air (10/16/20 10:03 AM) Blood pressure sites Arm, right (10/16/20 10:11 AM) Temperature Route Oral (10/16/20 10:11 AM) Dry Weight 95.4 kg (10/16/20 10:11 AM) Weight Obtained Via Standing scale (10/16/20 10:11 AM) Dry Weight Obtained Via Standing scale (10/16/20 10:11 AM) Social History Social History Type Response Smoking Status 5-9 cigarettes (betw een 1/4 to 1/2 pack)/day in last 30 days entered on: 09/08/20 Sex
--- OUTSIDE RECORDS SUMMARY | 2022-11-03 10:35 | XMS_ITS | Continuity of Care Document ---
Author Name Unknown Organization [facility] Address [address] [place] [address]- Care Team Providers Care Safety Fire Boss Name Role Phone Ilya De Leon MD Primary Care Physician [place] [facility] [place]07[place]22 - 07/07/22 [facility]/[address] [address]- [place] Allergies, Adverse Reactions, Alerts Substance Reaction Severity Status penicillin Rash Active morphine HAND SWELLING Active Motrin tight throat Rash Active trimethoprim-sulfamethoxazole DS 1 [facility] 17-MAY-2012 07:29:57<$> Unknown Active Imitrex Chest pain Active aspirin Ibuprofen tight throat Rash Active Toradol Rash Active Compazine throat swells [...] Maintenance, 06/29/21 15:10:00 EDT, ER Tablet, [facility]/pharmacy #[id number], Partial fill upon patient request if the prescription is for a schedule II opioid drug., 155, cm, 05/30/21 15:34:... Start Date: 06/29/21 Status: Ordered capsaicin 0.025% topical cream See Instructions, APPLY TO AFFECTED AREA TWICE A DAY, # 60 Gm, 1 Refills, [facility] [id number], 30, APPLY TO AFFECTED AREA TWICE A DAY, 155, cm, 05/30/21 15:34:00 EDT, Height, 95.9, kg, 12/05/20 10:08:00 EDT, Dry Weight Start Date: 05/31/21 Status: Ordered Cavilon Emollient topical cream 1 application, Topically, 2 times a day, PRN for dry skin, # 454 Gm, 1 Refills, Maintenance, 09/30/19 16:26:00 EDT, Cream, [facility] 3, 1 application Topically 2 times a day,PRN:for dry skin, 158, cm, 08/27/19 13:02:00 EDT, Height, 76, kg... Start Date: 09/30/19 Status: Ordered clonazePAM 0.5 mg oral tablet 1 tablet = 0.5 mg, By Mouth, Daily at bedtime, May fill 06/16/22 and weekly on Fridays for 3 weeks, #7 tablet, 2 Refills, Maintenance, 07/04/22 13:28:00 EDT, Tablet, [facility], [facility] reviewed, covering for Dr. De Leon, 155, cm, 01/23... Start Date: 07/04/22 Stop Date: 07/25/22 Status: Ordered clonazePAM 0.5 mg oral tablet 1 tablet = 0.5 mg, By Mouth, Daily at bedtime, May fill 05/26/22 and weekly on Fridays for 3 weeks, # 7 tablet, 2 Refills, Maintenance, 05/24/22 10:44:00 EDT, Tablet, [facility], [facility] reviewed, covering for Dr. De Leon, 155, cm, 01/10... Start Date: 05/24/22 Stop Date: 06/14/22 Status: Ordered clonazePAM 0.5 mg oral tablet 1 tablet = 0.5 mg, By Mouth, Daily at bedtime, May fill 04/14/22 and weekly on Fridays for3 weeks, # 7 tablet, 2 Refills, Maintenance, 04/13/22 10:13:00 EST, Tablet, [facility], [facility]MPreviewed, covering for Dr. De Leon, 155, cm, ... Start Date: 04/13/22 Stop Date: 05/04/22 Status: Ordered coal tar topical 1% lotion See Instructions, applyTopically Daily at bedtime, # 120 mL, 3 Refills, Maintenance, 10/26/21 15:45:00 EDT, [facility], Partial fill upon patient request if the prescription is for a schedule II opioid drug., applyTopically Daily a... Start Date: 10/26/21 Status: Ordered Dovonex 0.005% topical cream 1 applicator, Topically, 2 times a day, # 60 Gm, 5 Refills, Maintenance, 05/24/22 12:41:00 EDT, [facility], 1 applicator Topically 2 times a day,x30 days, 155, cm, 01/23/22 14:00:00 EST, Height, 106.5, kg, 09/14/21 9:38:00 EDT, Dry... Start Date: 05/24/22 Stop Date: 11/20/22 Status: Ordered Eucerin Unscented topical lotion See Instructions, apply as frequently as needed, # 1 each, 0 Refills, Maintenance, 09/28/21 12:23:00 EDT, [facility], Partial fill upon patient request if the prescription is for a schedule II opioid drug., apply as frequently as n... Start Date: 09/28/21 Status: Ordered fluticasone 50 mcg/inh nasal spray 1 sprays, Nares, Both, 2 times a day, in each nostril. for allergies, # 16 Gm, 0 Refills, Maintenance, 04/27/20 14:35:00 EST, [place], [facility] 3, Partial fill upon patient request if theprescription is for a schedule II opioid drug., 1... Start Date: 04/27/20 Stop Date: 05/27/20 Status: Ordered halobetasol 0.05% topical ointment See Instructions, APPLY A THIN FILM TO THE AFFECTED SKIN AND RUB IN GENTLY AND COMPLETELY TWICE A DAY, # 50 Gm, 1 Refills, Maintenance, 10/26/21 15:44:00 EDT, [facility], 30, APPLY A THIN FILM TO THE AFFECTED SKIN AND RUB IN GENTLY... Start Date: 10/26/21 Status: Ordered ketoconazole 2% topical shampoo See Instructions, APPLY 1 APPLICATOR TOPICALLY 3X PER WEEK, # 120 mL, 3 Refills, Maintenance, 05/16/22 8:48:00 EST, [facility] [id number], 30, APPLY 1 APPLICATOR TOPICALLY 3X PER WEEK, 155, cm, 01/23/22 14:00:00 EST, Height, 106.5, kg, 09/14/21 9:38:00 EDT,... Start Date: 05/16/22 Status: Ordered loratadine 10 mg oral tablet 1, tablet, By Mouth, Daily, # 30 tablet, Refills 5, Tot. Refills 5, Maintenance, 07/04/22 8:39:00 EDT, [id number], cm, 01/23/22 14:00:00 EST, Height, 106.5, kg, 09/14/21 9:38:00 EDT, Dry Weight Start Date: 07/04/22 Status: Ordered Methadone By Mouth, 0 Refills, Maintenance Start Date: 12/25/11 Status: Ordered mupirocin 2% topical cream 1 application, Topically, 3 times a day, # 30 Gm, 2 Refills, Maintenance, 03/08/21 10:26:00 EST, Cream, [id number] Partial fill upon patient request if the prescription is for a schedule II opioid drug., 1 application Topically 3 times a day,... Start Date: 03/08/21 Status: Ordered permethrin 5% topical cream 1 application, Topically, Once, to skin head to feet, remove by washing after 8 to 14 hours, # 60 Gm, 0 Refills, Soft Stop, 07/27/20 11:50:00 EDT, Cream, [facility], 1 applicationTopically Once,Instr:to skin head to feet, remove b... Start Date: 07/27/20 Status: Ordered predniSONE 10 mg oral tablet See Instructions, May fill 06/16/22 and weekly on Fridays for 3 weeks, # 14 tablet, 2 Refills, 07/04/22 13:28:00 EDT, [facility], 155, cm, 01/23/22 14:00:00 EST, Height, 106.5, kg, 09/14/21 9:38:00 EDT, Dry Weight Start Date: 07/04/22 Status: Ordered predniSONE 10 mg oral tablet See Instructions, May fill 05/26/22 and weekly on Fridays for 3 weeks, # 14 tablet, 2 Refills, 05/24/22 10:44:00 EDT, [facility], 155, cm, 01/23/22 14:00:00 EST, Height, 106.5, kg,09/14/21 9:38:00 EDT, Dry Weight Start Date: 05/24/22 Status: Ordered predniSONE 10 mg oral tablet See Instructions, May fill and weekly on Fridays for 3 weeks, # 14 tablet, 2 Refills, 04/13/22 10:13:00 EST, [facility], 155, cm, 01/23/22 14:00:00 EST, Height, 106.5, kg,09/14/21 9:38:00 EDT, Dry Weight Start Date: 04/13/22 Status: Ordered selenium sulfide 2.5% topical lotion See Instructions, APPLY TOPICALLY TO AFFECTED AREA EVERY DAY FOR 7 DAYS, # 120 mL, 3 Refills, Soft Stop, 10/26/21 15:43:00 EDT, [facility], 7, APPLY TOPICALLY TO AFFECTED AREA EVERY DAY FOR 7 DAYS, 155, cm, 09/28/21 12:06:00 EDT, H... Start Date: 10/26/21 Status: Ordered tiZANidine 2 mg oral tablet 1, tablet, By Mouth, 3 times a day, # 60 tablet, Refills 0, Route to Pharmacy Electronically, [facility] [id number], 155, cm, 05/03/21 14:39:00 EST, Height, 95.9, kg, 12/05/20 10:08:00 EDT, Dry Weight Start Date: 05/09/21 Status: Ordered traMADol 50 mg oral tablet 1 tablet = 50 mg, By Mouth, Every 8 hours, PRN Pain , Severe, for 7 days, May fill 06/16/22 and weekly on Fridays for 3 weeks, # 21 tablet, 2 Refills, Acute 07/25/22 13:28:00 EDT, 07/04/22 13:28:00 EDT, Tablet, [facility], Partial f... Start Date: 07/04/22 Stop Date: 07/25/22 Status: Ordered Problem List Condition Confirmation Course Effective Dates Status H ealth Status Informant Anxiety Confirmed Active Opioid type dependence, continuous 1 Confirmed Active Osteoarthritis of left knee Confirmed Active Psoriasis Confirmed Active Severe obesity Confirmed Active 1Client had been seen by Jazz Francois at [facility]. Client has no-showed to last appt [...] Care Physician Member Role: PCP Address: Address: [address] [place] [id number]- Care Team Related Persons Name: JD ALVAREZ Address: home [address] [place] [id number]
--- OUTSIDE RECORDS SUMMARY | 2022-11-03 10:35 | XMS_ITS | Continuity of Care Document ---
Author Name Unknown Organization [facility] ter Address [address] [place] [id number]- Care Team Providers Care 21 Dealer Name Role Phone Ilya De Leon MD Primary Care Physician [place] [facility] [place] - 06/17/[address] [address]- Encounter Diagnosis Psoriasis(Final) - 06/17/21 Discharge Disposition: A-D/C Home Attending Physician: Tahmina Whelan DO Admitting Physician: Tahmina Whelan DO Referring Physician: Not on Staff, Referring MD Allergies, Adverse Reactions, Alerts Substance Reaction Severity Status penicillin Rash Active aspirin Ibuprofen tight throat Rash Active Motrin tight throat Rash Active trimethoprim-sulfamethoxazole DS 1 Throa t [...] [facility]MIN[facility]ED AT [facility] Medications capsaicin 0.025% topical cream See Instructions, APPLY TO AFFECTED AREA TWICE A DAY, # 60 Gm, 1 Refills, [facility] [id number], 30, APPLY TO AFFECTED AREA TWICE A DAY, 155, cm, 05/30/21 15:34:00 EDT, Height, 95.9, kg, 12/05/20 10:08:00 EDT, Dry Weight Start Date: 05/31/21 Status: Ordered Cavilon Emollient topical cream 1 application, Topically, 2 times a day, PRN for dry skin, # 454 Gm, 1 Refills, Maintenance, 09/30/19 16:26:00 EDT, Cream, [facility], 1 application Topically 2 times a day,PRN:for dry skin, 158, cm, 08/27/19 13:02:00 EDT, Height, 76, kg... Start Date: 09/30/19 Status: Ordered Claritin 10 mg oral tablet 10 mg, 1, tablet, By Mouth, Daily, # 15 tablet, Refills 3, Tot. Refills 3, Maintenance, 05/03/21 15:42:00 EST, Route to Pharmacy Electronically, [facility]/pharmacy #[id number], 155, cm, 05/03/21 14:39:00 EST, Height, 95.9, kg, 12/05/20 10:08:00 EDT, Dry Weight Start Date: 05/03/21 Status: Ordered clonazePAM 0.5 mg oral tablet 1 tablet = 0.5 mg, By Mouth, Daily, # 14 tablet, 0 Refills, Maintenance, 05/30/21 12:57:00 EDT, Tablet, [facility]/pharmacy #[id number], [employer] MANAGEMENT ENGINEER reviewed, covering for Dr. De Leon, 155, cm, 05/03/21 14:39:00 EST, Height, 95.9, kg, 12/05/20 10:08:00 EDT, Dry Weight Start Date: 05/30/21 Stop Date: 06/13/21 Status: Ordered Dovonex 0.005% topical cream 1 applicator, Topically, 2 times a day, # 60 Gm, 5 Refills, Maintenance, 07/07/19 17:30:00 EDT, [facility], 1 applicator Topically 2 times a day,x30 days, 158, cm, 12/24/18 10:25:00 EDT, Height, 76, kg, 04/12/19 15:31:00 EST, Dry Weight Start Date: 07/07/19 Stop Date: 01/03/20 Status: Ordered fluticasone 50 mcg/inh nasal spray 1 sprays, Nares, Both, 2 times a day, in each nostril. for allergies, # 16 Gm, 0 Refills, Maintenance, 04/27/20 14:35:00 EST, [place], [facility], Partial fill upon patient request if theprescription is for a schedule II opioid drug., 1... Start Date: 04/27/20 Stop Date: 05/27/20 Status: Ordered furosemide 20 mg oral tablet 1, tablet, By Mouth, Daily, # 30 tablet, Refills 3, Tot. Refills 3, Maintenance, 04/18/21 12:11:00 EST, Route to Pharmacy Electronically, [facility]/pharmacy #[id number], 155, cm, 04/18/21 10:12:00 EST, Height, 95.9, kg, 12/05/20 10:08:00 EDT, Dry Weight Start Date: 04/18/21 Status: Ordered halobetasol 0.05% topical ointment See Instructions, APPLY A THIN FILM TO THE AFFECTED SKIN AND RUB IN GENTLY AND COMPLETELY TWICE A DAY, # 50 Gm, 1 Refills, [id number], , APPLY A THIN FILM TO THE AFFECTED SKIN AND RUB IN GENTLY AND COMPLETELY TWICE A DAY, 155, cm, 12/05/20 10:0... Start Date: 03/15/21 Status: Ordered hydrocortisone 1% topical cream 1 application, Topically, 2 times a day, # 30 Gm, 0 Refills, Maintenance, 06/17/21 11:42:00 EDT, Cream, [facility], Partial fill upon patient request if the prescription is for a schedule II opioid drug., 1 application Topically 2 times... Start Date: 06/17/21 Status: Ordered ketoconazole 2% topical shampoo See Instructions, APPLY 1 APPLICATOR TOPICALLY 3X PER WEEK, # 120 mL, 3 Refills, [facility] [id number], 30, APPLY 1 APPLICATOR TOPICALLY 3X PER WEEK, 155, cm, 03/17/21 7:53:00 EST, Height, 95.9, kg, 12/05/20 10:08:00 EDT, Dry Weight Start Date: 03/21/21 Status: Ordered Methadone By Mouth, 0 Refills, Maintenance Start Date: 12/25/11 Status: Ordered mupirocin 2% topical cream 1 application, Topically, 3 times a day, # 30 Gm, 2 Refills, Maintenance, 03/08/21 10:26:00 EST, Cream, [facility]/pharmacy #[id number], Partial fill upon patient request if the prescription is for a schedule II opioid drug., 1 application Topically 3 times a day,... Start Date: 03/08/21 Status: Ordered permethrin 5% topical cream 1 application, Topically, Once, to skin head to feet, remove by washing after 8 to 14 hours, # 60 Gm, 0 Refills, Soft Stop, 07/27/20 11:50:00 EDT, Cream, [facility], 1 applicationTopically Once,Instr:to skin head to feet, remove b... Start Date: 07/27/20 Status: Ordered predniSONE 10 mg oral tablet 1 tablet, By Mouth, Daily, for 7 days, Change supply to 1 week at a time to try to get correct adherence, # 7 tablet, 0 Refills, Physician Stop 06/21/21 12:29:00 EDT, 06/14/21 12:29:00 EDT, [facility]/pharmacy #[id number], 155, cm, 05/30/21 15:34:00 EDT, Height, 9... Start Date: 06/14/21 Stop Date: 06/21/21 Status: Ordered selenium sulfide 2.5% topical lotion See Instructions, APPLY TOPICALLY TO AFFECTED AREA EVERY DAY FOR 7 DAYS, # 120 mL, 3 Refills, Soft Stop, 04/26/21 18:07:00 EST, [facility]/pharmacy #[id number], 7, APPLY TOPICALLY TO AFFECTED AREA EVERY DAY FOR 7DAYS, 155, cm, 04/18/21 10:12:00 EST, Height, 95.9,... Start Date: 04/26/21 Status: Ordered tiZANidine 2 mg oral tablet 1, tablet, By Mouth, 3 times a day, # 60 tablet, Refills 0, Route to Pharmacy Electronically, [facility] [id number], 155, cm, 05/03/21 14:39:00 EST, Height, 95.9, kg, 12/05/20 10:08:00 EDT, Dry Weight Start Date: 05/09/21 Status: Ordered Problem List Condition Effective Dates Status Health Status Inform ant Anxiety(Confirmed) Active Opioid type dependence, continuous(Confirmed) 1 Active Osteoarthritis of left knee(Confirmed) Active Psoriasis(Confirmed) Active Severe obesity(Confirmed) Active 1Client had been seen by Jazz Francois at [facility]. Client has no-showed to last appt and today.She will be targetted for closing if she does not responde to correspondence that will be sent on 02/14/13 Vital Signs Most recent to oldest [Reference Range]: 1 2 3 Oxygen Saturation [94-100 %] 98 % (06/17/21 12:18 PM) 97 % (06/17/21 10:05 AM) 100 % (06/17/21 9:58 AM) Pulse Rate [55-90 bpm] 76 bpm (06/17/21 12:18 PM) 94 bpm *H* (06/17/21 10:05 AM) 98 bpm *H* (06/17/21 9:58 AM) Blood Pressure [90-138/55-84 mm Hg] 136/81mm Hg (06/17/21 12:18 PM) 152/85mm Hg *H* (06/17/21 10:05 AM) Respiratory Rate [16-30 br/min] 20 br/min (06/17/21 12:18 PM) 16 br/min (06/17/21 10:05 AM) Temperature [96.8-100.4 DegF] 98.3 DegF (06/17/21 10:05 AM) Mode of Delivery (Oxygen) Room air (06/17/21 12:18 PM) Room air (06/17/21 10:05 AM) Room air (06/17/21 9:58 AM) Blood pressure sites Arm, right (06/17/21 12:18 PM) Temperature Route Oral (06/17/21 10:05 AM) Social History Social History Type Response Smoking Status 10 or more cigarette s (1/2 pack or more)/day in last 30 days entered on: 04/18/21 Sex
--- OUTSIDE RECORDS SUMMARY | 2022-11-03 10:35 | XMS_ITS | Continuity of Care Document ---
Author Name Unknown Organization [facility] Address [address] [place] [address]- Care Team Providers Care Calender Supervisor Name Role Phone Haley NEWMAN, Ilya Primary Care Physician Encounter [facility] [place] Date(s): 09/22/22 - 10/25/22 [facility]/[address] [address]- Attending Physician: Ilya DeL eon MD Admitting Physician: Ilya De Leon MD Allergies, Adverse Reactions, Alerts Substance Reaction Severity Status penicillin Rash Active trimethoprim-sulfamethoxazole DS 1 Throa t Hives 17-MAY-2013 07:29:57<$> Unknown Active Imitrex Chest pain [...] Maintenance, 06/29/21 15:10:00 EDT, ER Tablet, [id number], Partial fill upon patient request if the prescription is for a schedule II opioid drug., 155, cm, 05/30/21 15:34:... Start Date: 06/29/21 Status: Ordered Cavilon Emollient topical cream 1 application, Topically, 2 times a day, PRN for dry skin, # 454 Gm, 1 Refills, Maintenance, 09/30/19 16:26:00 EDT, Cream, [facility] 3, 1 application Topically 2 times a day,PRN:for dry skin, 158, cm, 08/27/19 13:02:00 EDT, Height, 76, kg... Start Date: 09/30/19 Status: Ordered Cavilon Emollient topical cream 1 application, Topically, 2 times a day, PRN for dry skin, # 454 Gm, 3 Refills, Maintenance, 09/19/22 11:12:00 EDT, Cream, [facility], 1 application Topically 2 times a day,PRN:for dry skin, 155, cm, 09/04/22 10:17:00 EDT, Height,... Start Date: 09/19/22 Status: Ordered cetirizine 10 mg oral tablet, chewable 1 tablet = 10 mg, By Mouth, Daily, PRN for allergy symptoms, # 12 tablet, 4 Refills, Maintenance, 09/04/22 10:28:00 EDT, Chew Tablet, [facility], Partial fill upon patient request ifthe prescription is for a schedule II opioid drug.,... Start Date: 09/04/22 Stop Date: 10/24/22 Status: Ordered cholecalciferol 1000 intl units oral capsule 1 capsule = 25 mcg, By Mouth, Daily, vitamin D, # 100 capsule, 3 Refills, Maintenance, 07/24/22 13:10:00 EDT, Capsule, [facility]/pharmacy #[id number], Partial fill upon patient request if the prescription is fora schedule II opioid drug., 155, cm, 07/17/22 9:50:... Start Date: 07/24/22 Status: Ordered clonazePAM 0.5 mg oral tablet 1 tablet = 0.5 mg, By Mouth, 2 times a day, Increaseddose July weekly on Fridays for 4 weeks starting on 10/05, # 14 tablet, 3 Refills, Maintenance, 10/04/22 8:15:00 EDT, Tablet, [facility], MANAGER PLACEMENT reviewed, covering for Dr. De Leon, 15... Start Date: 10/04/22 Stop Date: 11/01/22 Status: Ordered clonazePAM 0.5 mg oral tablet 1 tablet = 0.5 mg, By Mouth, 2 times a day, Increaseddose July weekly on Fridays for 3 weeks starting on 07/21, # 14 tablet, 2 Refills, Maintenance, 07/19/22 12:38:00 EDT, Tablet, [facility], MANAGER PLACEMENT reviewed, covering for Dr. De Leon, 1... Start Date: 07/19/22 Stop Date: 08/09/22 Status: Ordered Dovonex 0.005% topical cream 1 applicator, Topically, 2 times a day, # 60 Gm, 5 Refills, Maintenance, 05/24/22 12:41:00 EDT, [facility], 1 applicator Topically 2 times a day,x30 days, 155, cm, 01/23/22 14:00:00 EST, Height, 106.5, kg, 09/14/21 9:38:00 EDT, Dry... Start Date: 05/24/22 Stop Date: 11/20/22 Status: Ordered Eucerin Unscented topical lotion See Instructions, apply as frequently as needed, # 1 each, 3 Refills, Maintenance, 09/19/22 11:12:00 EDT, [facility], Partial fill upon patient request if the prescription is for a schedule II opioid drug., apply as frequently as n... Start Date: 09/19/22 Status: Ordered Eucerin Unscented topical lotion See Instructions, apply as frequently as needed, # 1 each, 0 Refills, Maintenance, 09/28/21 12:23:00 EDT, [facility], Partial fill upon patient request if the prescription is for a schedule II opioid drug., apply as frequently as n... Start Date: 09/28/21 Status: Ordered fluticasone 50 mcg/inh nasal spray 1 sprays, Nares, Both, 2 times a day, in each nostril. for allergies, # 16 Gm, 0 Refills, Maintenance, 04/27/20 14:35:00 EST, [place], [facility] 3, Partial fill upon patient request if theprescription is for a schedule II opioid drug., 1... Start Date: 04/27/20 Stop Date: 05/27/20 Status: Ordered halobetasol 0.05% topical ointment See Instructions, APPLY A THIN FILM TO THE AFFECTED SKIN AND RUB IN GENTLY AND COMPLETELY TWICE A DAY, # 50 Gm, 0 Refills, Maintenance, 09/12/22 13:49:00 EDT, [facility]/pharmacy #[id number], 30, APPLY A THIN FILM TO THE AFFECTED SKIN AND RUB IN GENTLY AND COMPLET... Start Date: 09/12/22 Status: Ordered halobetasol 0.05% topical ointment See Instructions, APPLY A THIN FILM TO THE AFFECTED SKIN AND RUB IN GENTLY AND COMPLETELY TWICE A DAY, # 50 Gm, 3 Refills, Maintenance, 09/19/22 11:12:00 EDT, [facility], 30, APPLY A THIN FILM TO THE AFFECTED SKIN AND RUB IN GENTLY... Start Date: 09/19/22 Status: Ordered ketoconazole 2% topical shampoo See Instructions, APPLY 1 APPLICATOR TOPICALLY 3X PER WEEK, # 120 mL, 3 Refills, Maintenance, 05/16/22 8:48:00 EST, [id number], 30, APPLY 1 APPLICATOR TOPICALLY 3X PER WEEK, 155, cm, 01/23/22 14:00:00 EST, Height, 106.5, kg, 09/14/21 9:38:00 EDT,... Start Date: 05/16/22 Status: Ordered loratadine 10 mg oral tablet 1, tablet, By Mouth, Daily, # 30 tablet, Refills 5, Tot. Refills 5, Maintenance, 07/04/22 8:39:00 EDT, Route to Pharmacy Electronically, [facility]/pharmacy #[id number], 155, cm, 01/23/22 14:00:00 EST, Height, 106.5, kg, 09/14/21 9:38:00 EDT, Dry Weight Start Date: 07/04/22 Status: Ordered Methadone By Mouth, 0 Refills, Maintenance Start Date: 12/25/11 Status: Ordered mupirocin 2% topical cream 1 application, Topically, 3 times a day, # 30 Gm, 2 Refills, Maintenance, 03/08/21 10:26:00 EST, Cream, [facility]/pharmacy #[id number], Partial fill upon patient request if the prescription is for a schedule II opioid drug., 1 application Topically 3 times a day,... Start Date: 03/08/21 Status: Ordered permethrin 5% topical cream 1 application, Topically, Once, to skin head to feet, remove by washing after 8 to 14 hours, # 60 Gm, 0 Refills, Soft Stop, 07/27/20 11:50:00 EDT, Cream, [facility], 1 applicationTopically Once,Instr:to skin head to feet, remove b... Start Date: 07/27/20 Status: Ordered predniSONE 5 mg oral tablet See Instructions, Starting next refill increase to 4 tablets daily, # 28 tablet, 3 Refills, Maintenance, 10/04/22 8:15:00 EDT, [facility], Partial fill upon patient request if theprescription is for a schedule II opioid drug., 155... Start Date: 10/04/22 Status: Ordered selenium sulfide 2.5% topical lotion See Instructions, APPLY TOPICALLY TO AFFECTED AREA EVERY DAY FOR 7 DAYS, # 120 mL, 3 Refills, Soft Stop, 10/26/21 15:43:00 EDT, [facility], 7, APPLY TOPICALLY TO AFFECTED AREA EVERY DAY FOR 7 DAYS, 155, cm, 09/28/21 12:06:00 EDT, H... Start Date: 10/26/21 Status: Ordered simvastatin 20 mg oral tablet 20 mg, 1, tablet, By Mouth, Daily at bedtime, for cholesterol, # 30 tablet, Refills 5, Tot. Refills5, Maintenance, 07/24/22 13:12:00 EDT, Route to Pharmacy Electronically, [facility]/pharmacy #[id number], Partial fill upon patient request if the prescription is f... Start Date: 07/24/22 Status: Ordered traMADol 50 mg oral tablet 1 tablet = 50 mg, By Mouth, Every 8 hours, PRN Pain , Severe, for 7 days, 4May fill 10/05/22 and weekly on Fridays for 4 weeks, # 21 tablet, 3 Refills, Acute 11/01/22 8:14:00 EDT, 10/04/22 8:14:00 EDT, Tablet, [facility], Partial fi... Start Date: 10/04/22 Stop Date: 11/01/22 Status: Ordered Problem List Condition Confirmation Course Effective Dates Status H ealth Status Informant Anxiety Confirmed Active Intermittent palpitations Confirmed Active Opioid type dependence, continuous 1 Confirmed Active Osteoarthritis of left knee Confirmed Active Primary osteoarthritis of left knee Confirmed Active Panic disorder Confirmed Active Psoriasis Confirmed Active Severe obesity Confirmed Active 1Client had been seen by Jazz Francois at [facility]. Client has no-showed to last appt and [...] Personnel Name: Ilya De Leon MD Position: [facility] Physician - Primary Care Member Role: PCP Address: Address: [address] [place] [id number]- Care Team Related Persons Name: JD ALVAREZ Address: home [address] [place] [id number]
--- OUTSIDE RECORDS SUMMARY | 2022-11-03 10:35 | XMS_ITS | Continuity of Care Document ---
Author Name Unknown Organization [facility] Address Unknown Care Team Providers Care Hand Binder Stripper Name Role Phone Ilya De Leon MD Primary Care Physician Encounter [facility] [place] Date(s): 09/22/21 - 10/22/21 [facility] Allergies, Adverse Reactions, Alerts Substance Reaction [...] 01/30/11 Gi lizbeth 1Admin Note: ADMIN BY [facility] 2Admin Note: FLUVIRIN MULTIDOSE ADMINISTERED AT [facility] Medications acetaminophen 650 mg oral tablet, extended release 2 tablet = 1,300 mg, By Mouth, Every 8 hours, # 100 tablet, 1 Refills, Maintenance, 06/29/21 15:10:00 EDT, ER Tablet, [facility]/pharmacy #[id number], Partial fill upon patient request if the prescription is for a schedule II opioid drug., 155, cm, 05/30/21 15:34:... Start Date: 06/29/21 Status: Ordered capsaicin 0.025% topical cream See Instructions, APPLY TO AFFECTED AREA TWICE A DAY, # 60 Gm, 1 Refills, [facility] [id number], 30, APPLY TO AFFECTED AREA TWICE A [...] By Mouth, Daily at bedtime, May fill 10/21/21, # 7 tablet, 0 Refills, Maintenance, 10/21/21 11:54:00 EDT, Tablet, [facility], P[employer]CEL[employer] E[employer]EL INSTALLER reviewed, covering for Dr. De Leon, 155, cm, 09/28/21 12:06:00 EDT, Height, 106.5,... Start Date: 10/21/21 Stop Date: 10/28/21 Status: Ordered clonazePAM 0.5 mg oral tablet 1 tablet = 0.5 mg, By Mouth, Daily at bedtime, May cammie l 09/22/21, # 7 tablet, 0 Refills, Maintenance, 09/21/21 7:19:00 EDT, Tablet, [facility], [employer] E[employer]EL INSTALLER reviewed, covering for Dr. De Leon, 155, cm, 09/15/21 10:14:00 EDT, Height, 106.5,... Start Date: 09/21/21 Stop Date: 09/28/21 Status: Ordered coal tar topical 2% foam 1 application, Topically, 4 times a day, # 100 Gm, 1 Refills, Maintenance, 09/28/21 12:24:00 EDT, Foam, [facility], Partial fill upon patient request if the [...] each, 0 Refills, Maintenance, 09/28/21 12:23:00 EDT, [facility], Partial fill upon patient request if the prescription is for a schedule II opioid drug., apply as frequently as n... Start Date: 09/28/21 Status: Ordered fluticasone 50 mcg/inh nasal spray 1 sprays, Nares, Both, 2 times a day, in each nostril. for allergies, # 16 Gm, 0 Refills, Maintenance, 04/27/20 14:35:00 EST, [place], [facility] 3, Partial fill upon patient request if theprescription is for a schedule II opioid drug., 1... Start Date: 04/27/20 Stop Date: 05/27/20 Status: Ordered halobetasol 0.05% topical ointment See Instructions, APPLY A THIN FILM TO THE AFFECTED SKIN AND RUB IN GENTLY AND COMPLETELY TWICE A DAY, # 50 Gm, 1 Refills, [facility] [id number], 30, APPLY A THIN FILM TO THE AFFECTED SKIN AND RUB IN GENTLY AND COMPLETELY TWICE A DAY, 155, cm, 12/05/20 10:0... Start Date: 03/15/21 Status: Ordered hydrocortisone 1% topical cream 1 application, Topically, 2 times a day, # 30 Gm, 0 Refills, Maintenance, 06/17/21 11:42:00 EDT, Cream, [facility] 3, Partial fill upon patient request if the prescription is for a schedule II opioid drug., 1 application Topically 2 times... Start Date: 06/17/21 Status: Ordered hydrOXYzine hydrochloride 25 mg oral tablet 1 capsule, By Mouth, 3 times a day, PRN for itching, for 30 days, # 90 capsule, 1 Refills, Acute 10/23/21 14:41:00 EDT, 08/24/21 14:41:00 EDT, Capsule, [facility], Partial fill upon patient request if the prescription is for a sche... Start Date: 08/24/21 Stop Date: 10/23/21 Status: Ordered ketoconazole 2% topical shampoo See Instructions, APPLY 1 APPLICATOR TOPICALLY 3X PER WEEK, # 120 mL, 3 Refills, [facility] [id number], 30, APPLY 1 APPLICATOR TOPICALLY 3X PER WEEK, 155, cm, 05/30/21 15:34:00 EDT, Height, 95.9, kg, 12/05/20 10:08:00 EDT, Dry Weight Start Date: 08/02/21 Status: Ordered loratadine 10 mg oral tablet 1, tablet, By Mouth, Daily, # 15 tablet, Refills 5, Tot. Refills 5, Maintenance, 08/19/21 9:15:00 EDT, [id number], 155, cm, 05/30/21 15:34:00 EDT, Height, 95.9, kg, 12/05/20 10:08:00 EDT, Dry Weight Start Date: 08/19/21 Status: Ordered Methadone By Mouth, 0 Refills, Maintenance Start Date: 12/25/11 Status: Ordered mupirocin 2% topical cream 1 application, Topically, 3 times a day, # 30 Gm, 2 Refills, Maintenance, 03/08/21 10:26:00 EST, Cream, [facility]/pharmacy #[id number], Partial fill upon patient request if the prescription is for a schedule II opioid drug., 1 application Topically 3 times a day,... Start Date: 03/08/21 Status: Ordered permethrin 5% topical cream 1 application, Topically, Once, to skin head to feet, remove by washing after 8 to 14 hours, # 60 Gm, 0 Refills, Soft Stop, 07/27/20 11:50:00 EDT, Cream, [facility], 1 applicationTopically Once,Instr:to skin head to feet, remove b... Start Date: 07/27/20 Status: Ordered predniSONE 10 mg oral tablet See Instructions, MADDY 1 TABLETA POR LA BOCA DOS VECES AL ANDREW POR 7 RAY, # 14 tablet, 0 Refills, [facility], 155, cm, 09/28/21 12:06:00 EDT, Height, 106.5, kg, 09/14/21 9:38:00 EDT, Dry Weight Start Date: 10/21/21 Status: Ordered selenium sulfide 2.5% topical lotion See Instructions, APPLY TOPICALLY TO AFFECTED AREA EVERY DAY FOR 7 DAYS, # 120 mL, 3 Refills, Soft Stop, 09/28/21 12:25:00 EDT, [facility], 7, APPLY TOPICALLY TO AFFECTED AREA EVERY DAY FOR 7 DAYS, 155, cm, 09/28/21 12:06:00 EDT, H... Start Date: 09/28/21 Status: Ordered tiZANidine 2 mg oral tablet 1, tablet, By Mouth, 3 times a day, # 60 tablet, Refills 0, Route to Pharmacy Electronically, [id number], 155, cm, 05/03/21 14:39:00 EST, Height, 95.9, kg, 12/05/20 10:08:00 EDT, Dry Weight Start Date: 05/09/21 Status: Ordered traMADol 50 mg oral tablet 1 tablet = 50 mg, By Mouth, Every 8 hours, PRN Pain , Severe, for 7 days, for 10/21/21, # 21 tablet,0 Refills, Acute 10/28/21 11:53:00 EDT, 10/21/21 11:53:00 EDT, Tablet, [facility], Partial fill upon patient request if the prescri... Start Date: 10/21/21 Stop Date: 10/28/21 Status: Ordered Problem List Condition Effective Dates Status Health Status Inform ant Anxiety(Confirmed) Active Opioid type dependence, continuous(Confirmed) 1 Active Osteoarthritis of left knee(Confirmed) Active Psoriasis(Confirmed) Active Severe obesity(Confirmed) Active 1Client had been seen by Jazz Francois at [facility]. Client has no-showed to last appt and today.She will be targetted for closing if she does not responde to correspondence that will be sent on 02/14/13 Social History Social History Type Response Smoking Status 10 or more cigarette s (1/2 pack or more)/day in last 30 days entered on: 04/18/21 Sex
--- OUTSIDE RECORDS SUMMARY | 2022-11-03 10:35 | XMS_ITS | Continuity of Care Document ---
Author Name Unknown Organization [facility] Address [address] [place] [id number]- Care Team Providers Care Automotive Warranty Administrator Name Role Phone Ilya De Leon MD Primary Care Physician Encounter [facility] Date(s): 11/10/21 - 12/10/21 [facility]/[address] [address]- [place] Allergies, Adverse Reactions, Alerts Substance Reaction [...] 01/30/11 Gi lizbeth 1Admin Note: ADMIN BY [facility] 2Admin Note: FLUVIRIN MULTIDOSE ADMINISTERED AT [facility] Medications acetaminophen 650 mg oral tablet, extended release 2 tablet = 1,300 mg, By Mouth, Every 8 hours, # 100 tablet, 1 Refills, Maintenance, 06/29/21 15:10:00 EDT, ER Tablet, [id number], Partial fill upon patient request if the prescription is for a schedule II opioid drug., 155, cm, 05/30/21 15:34:... Start Date: 06/29/21 Status: Ordered capsaicin 0.025% topical cream See Instructions, APPLY TO AFFECTED AREA TWICE A DAY, # 60 Gm, 1 Refills, [facility] [id number], 30, APPLY TO AFFECTED AREA TWICE A DAY, 155, cm, 05/30/21 15:34:00 EDT, Height, 95.9, kg, 12/05/20 10:08:00 EDT, Dry Weight Start Date: 05/31/21 Status: Ordered Cavilon Emollient topical cream 1 application, Topically, 2 times a day, PRN for dry skin, # 454 Gm, 1 Refills, Maintenance, 09/30/19 16:26:00 EDT, Cream, [facility], 1 application Topically 2 times a day,PRN:for dry skin, 158, cm, 08/27/19 13:02:00 EDT, Height, 76, kg... Start Date: 09/30/19 Status: Ordered clonazePAM 0.5 mg oral tablet 1 tablet = 0.5 mg, By Mouth, Daily at bedtime, May fill 12/09/21 and weekly on Fridays for3 weeks, #7 tablet, 2 Refills, Maintenance, 12/06/21 10:38:00 EDT, Tablet, [facility], GROCERY WORKER reviewed, covering for Dr. De Leon, 155, cm, 09/28... Start Date: 12/06/21 Stop Date: 12/27/21 Status: Ordered coal tar topical 1% lotion See Instructions, applyTopically Daily at bedtime, # 120 mL, 3 Refills, Maintenance, 10/26/21 15:45:00 EDT, [facility], Partial fill upon patient request if the prescription is for a schedule II opioid drug., applyTopically Daily a... Start Date: 10/26/21 Status: Ordered Dovonex 0.005% topical cream 1 applicator, Topically, 2 times a day, # 60 Gm, 5 Refills, Maintenance, 07/07/19 17:30:00 [facility], 1 [facility]ator Topically 2 times a day,x30 days, 158, cm, 12/24/18 10:25:00 EDT, Height, 76, kg, 04/12/19 15:31:00 EST, Dry Weight Start Date: 07/07/19 Stop Date: 01/03/20 Status: Ordered Eucerin Unscented topical lotion See Instructions, apply as frequently as needed, # 1 each, 0 Refills, Maintenance, 09/28/21 12:23:00 EDT, [facility], Partial fill upon patient request if the prescription is for a schedule II opioid drug., apply as frequently as n... Start Date: 09/28/21 Status: Ordered fluticasone 50 mcg/inh nasal spray 1 sprays, Nares, Both, 2 times a day, in each nostril. for allergies, # 16 Gm, 0 Refills, Maintenance, 04/27/20 14:35:00 EST, [place], [facility] 3, Partial fill upon patient request if theprescription is for a schedule II opioid drug., 1... Start Date: 04/27/20 Stop Date: 05/27/20 Status: Ordered halobetasol 0.05% topical ointment See Instructions, APPLY A THIN FILM TO THE AFFECTED SKIN AND RUB IN GENTLY AND COMPLETELY TWICE A DAY, # 50 Gm, 1 Refills, Maintenance, 10/26/21 15:44:00 EDT, [facility], 30, APPLY A THIN FILM TO THE AFFECTED SKIN AND RUB IN GENTLY... Start Date: 10/26/21 Status: Ordered hydrocortisone 1% topical cream 1 application, Topically, 2 times a day, # 30 Gm, 0 Refills, Maintenance, 06/17/21 11:42:00 EDT, Cream, [facility] 3, Partial fill upon patient request if the prescription is for a schedule II opioid drug., 1 application Topically 2 times... Start Date: 06/17/21 Status: Ordered ketoconazole 2% topical shampoo See Instructions, APPLY 1 APPLICATOR TOPICALLY 3X PER WEEK, # 120 mL, 3 Refills, [facility] [id number], 30, APPLY 1 APPLICATOR TOPICALLY 3X PER WEEK, 155, cm, 05/30/21 15:34:00 EDT, Height, 95.9, kg, 12/05/20 10:08:00 EDT, Dry Weight Start Date: 08/02/21 Status: Ordered loratadine 10 mg oral tablet 1, tablet, By Mouth, Daily, # 90 tablet, Refills 1, Tot. Refills 1, Maintenance, 11/01/21 15:19:00 EDT, [id number], 155, cm, 09/28/21 12:06:00 EDT, Height, 106.5, kg, 09/14/21 9:38:00 EDT, Dry Weight Start Date: 11/01/21 Status: Ordered Methadone By Mouth, 0 Refills, Maintenance Start Date: 12/25/11 Status: Ordered mupirocin 2% topical cream 1 application, Topically, 3 times a day, # 30 Gm, 2 Refills, Maintenance, 03/08/21 10:26:00 EST, Cream, [facility]/pharmacy #[id number], Partial fill upon patient request if the prescription is for a schedule II opioid drug., 1 application Topically 3 times a day,... Start Date: 03/08/21 Status: Ordered permethrin 5% topical cream 1 application, Topically, Once, to skin head to feet, remove by washing after 8 to 14 hours, # 60 Gm, 0 Refills, Soft Stop, 07/27/20 11:50:00 EDT, Cream, [facility], 1 applicationTopically Once,Instr:to skin head to feet, remove b... Start Date: 07/27/20 Status: Ordered predniSONE 10 mg oral tablet See Instructions, May fill 12/09/21 and weekly on Fridays for 3 weeks, # 14 tablet, 2 Refills, 12/06/21 10:38:00 EDT, [facility], 155, cm, 09/28/21 12:06:00 EDT, Height, 106.5, kg,09/14/21 9:38:00 EDT, Dry Weight Start Date: 12/06/21 Status: Ordered selenium sulfide 2.5% topical lotion See Instructions, APPLY TOPICALLY TO AFFECTED AREA EVERY DAY FOR 7 DAYS, # 120 mL, 3 Refills, Soft Stop, 10/26/21 15:43:00 EDT, [facility], 7, APPLY TOPICALLY TO AFFECTED AREA EVERY DAY FOR 7 DAYS, 155, cm, 09/28/21 12:06:00 EDT, H... Start Date: 10/26/21 Status: Ordered tiZANidine 2 mg oral tablet 1, tablet, By Mouth, 3 times a day, # 60 tablet, Refills 0, Route to Pharmacy Electronically, [id number], 155, cm, 05/03/21 14:39:00 EST, Height, 95.9, kg, 12/05/20 10:08:00 EDT, Dry Weight Start Date: 05/09/21 Status: Ordered traMADol 50 mg oral tablet 1 tablet = 50 mg, By Mouth, Every 8 hours, PRN Pain , Severe, for 7 days, May fill 12/09/21 and weekly on Fridays for3 weeks, # 21 tablet, 2 Refills, Acute 12/27/21 10:38:00 EDT, 12/06/21 10:38:00 EDT, Tablet, [facility], Partial fi... Start Date: 12/06/21 Stop Date: 12/27/21 Status: Ordered Problem List Condition Confirmation Course Effective Dates Status H ealth Status Informant Anxiety Confirmed Active Opioid type dependence, continuous 1 Confirmed Active Osteoarthritis of left knee Confirmed Active Psoriasis Confirmed Active Severe obesity Confirmed Active 1Client had been seen by Jazz Francois at [facility]. Client has no-showed to last appt and today.She will be targetted for closing if she does not responde to correspondence that will be sent on 02/14/13 Social History Social History Type Response Smoking Status 10 or more cigarette s (1/2 pack or more)/day in last 30 days entered on: 04/18/21 Sex Patient Care team information Personnel Name: Ilya De Leon MD Address: Address: [address] [place] [address]
--- OUTSIDE RECORDS SUMMARY | 2022-11-03 10:35 | XMS_ITS | Continuity of Care Document ---
Author Name Unknown Organization [facility] Address [address] [place] [address]- Care Team Providers Care Assembler Carbon Brushes Name Role Phone Haley NEWMAN, Ilya Primary Care Physician Encounter [facility] Date(s): 09/08/20 - 10/08/[address] [address]- Allergies, Adverse Reactions, Alerts Substance Reaction Severity [...] 01/30/11 Gi lizbeth 1Admin Note: ADMIN BY [facility] 2Admin Note: FLUVIRIN MULTIDOSE ADMINISTERED AT [facility] Medications acetaminophen 500 mg oral tablet 2 tablet = 1,000 mg, By Mouth, 3 times a day, PRN as needed for fever, not to exceed 3000 mg/day take scheduled three times a day, # 100 tablet, 1 Refills, Acute 12/26/20 11:44:00 EDT, 09/24/20 11:43:00 EDT, Tablet, [id number], Partial fill u... Start Date: 09/24/20 Stop Date: 12/26/20 Status: Ordered Cavilon Emollient topical cream 1 application, Topically, 2 times a day, PRN for dry skin, # 454 Gm, 1 Refills, Maintenance, 09/30/19 16:26:00 EDT, Cream, [facility] 3, 1 application Topically 2 times a day,PRN:for dry skin, 158, cm, 08/27/19 13:02:00 EDT, Height, 76, kg... Start Date: 09/30/19 Status: Ordered cetirizine 10 mg oral tablet 1 tablet = 10 mg, By Mouth, Daily, for allergies. Do NOT take with claritin, # 30 tablet, 0 Refills, Maintenance, 07/23/20 11:37:00 EDT, Tablet, [facility], Partial fill upon patient request if the prescription is for a schedule II... Start Date: 07/23/20 Stop Date: 08/22/20 Status: Ordered Claritin 10 mg oral tablet 10 mg, 1, tablet, By Mouth, Daily, # 15 tablet, Refills 3, Tot. Refills 3, Maintenance, 11/06/18 8:33:38 EDT, Route to Pharmacy Electronically, [id number], [facility] Start Date: 11/06/18 Status: Ordered clonazePAM 0.5 mg oral tablet 1 tablet = 0.5 mg, By Mouth, Daily, # 28 tablet, 0 Refills, Maintenance, 09/22/20 12:58:00 EDT, Tablet, [facility], Partial fill upon patient request if the prescription is for a schedule II opioid drug., 158, cm, 09/08/20 14:36:00... Start Date: 09/22/20 Status: Ordered diphenhydrAMINE 25 mg oral tablet 1 tablet = 25 mg, By Mouth, 3 times a day, PRN as needed for itching, Will cause drowsiness, # 30 tablet, 0 Refills, Maintenance, 07/16/20 15:11:00 EDT, Tablet, [facility], Partial fill upon patient request if the prescription is f... Start Date: 07/16/20 Status: Ordered Dovonex 0.005% topical cream 1 applicator, Topically, 2 times a day, # 60 Gm, 5 Refills, Maintenance, 07/07/19 17:30:00 EDT, [facility], 1 applicator Topically 2 times [...] Gm, 0 Refills, Maintenance, 04/27/20 14:35:00 EST, [place], [facility], Partial fill upon patient request if theprescription is for a schedule II opioid drug., 1... Start Date: 04/27/20 Stop Date: 05/27/20 Status: Ordered furosemide 20 mg oral tablet 20 mg, 1, tablet, By Mouth, Daily, # 30 tablet, Refills 1, Tot. Refills 1, Maintenance, 08/27/20 16:12:00 EDT, Route to Pharmacy Electronically, [facility]/pharmacy #[id number], Partial fill upon patient request if the prescription is for a schedule II opioid drug... Start Date: 08/27/20 Status: Ordered halobetasol 0.05% topical ointment 1 application, Topically, 2 times a day, apply in a thin film to the affected skin and rub in gently and completely, # 50 Gm, 1 Refills, Acute 10/18/20 14:15:00 EDT, 09/24/20 13:11:00 EDT, Ointment, [facility]/pharmacy #[id number], Partial fill upon patient reques... Start Date: 09/24/20 Stop Date: 10/18/20 Status: Ordered hydrocortisone 1% topical cream 1 application, Topically, 2 times a day, Apply to rash areas, # 60 Gm, 3 Refills, Maintenance, 06/04/19 14:52:00 EDT, Cream, [facility], 1 application Topically 2 times [...] 12/26/20 11:39:00 EDT, 09/24/20 11:38:00 EDT, Ointment, [facility]/pharmacy #[id number], Partial fill upon patient request if [...] 2 Refills, Maintenance, 09/14/20 17:22:00 EDT, Cream, [facility]/pharmacy #[id number], Partial fill upon patient request if [...] Soft Stop, 07/27/20 11:50:00 EDT, Cream, [facility], 1 applicationTopically Once,Instr:to skin head to feet, remove b... Start Date: 07/27/20 Status: Ordered predniSONE 5 mg oral tablet 1 tablet = 5 mg, By Mouth, 3 times a day, # 21 tablet, 0 Refills, Maintenance, 10/06/20 15:03:00 EDT, Tablet, [facility]/pharmacy #[id number], Partial fill upon patient request if the prescription is for a schedule II opioid drug., 158, cm, 09/24/20 10:45:00 EDT,... Start Date: 10/06/20 Stop Date: 10/13/20 Status: Ordered selenium sulfide 2.5% topical lotion See Instructions, APPLY TOPICALLY TO AFFECTED AREA EVERY DAY FOR 7 DAYS, # 120 mL, 3 Refills, Soft Stop, 07/23/20 11:40:00 EDT, [facility], 7, APPLY TOPICALLY TO AFFECTED AREA EVERY DAY FOR 7 DAYS, 158, cm, 07/23/20 11:13:00 EDT, H... Start Date: 07/23/20 Status: Ordered Shingrix intramuscular injection = 0.5 mL, Intramuscular, Once, repeat dose in 2 to 6 months, # 2 each, 0 Refills, Soft Stop, 05/27/20 11:03:00 EDT, Powder, [facility], Partial fill upon patient request if [...] 1 Refills, Maintenance, 03/10/20 18:21:00 EST, Cream, [facility], Partial fill upon patient request [...] 0 Refills, Maintenance, 09/24/20 11:47:00 EDT, Gel, [facility]/pharmacy #[id number], 1 application Topically 4 times a day,Instr:for knee pain, 158, cm, 09/24/20 10:45:00 EDT, Height, 82, kg, ... Start Date: 09/24/20 Status: Ordered Problem List Condition Effective Dates Status Health Status Inform ant Opioid type dependence, continuous(Confirmed) 1 Active 1Client had been seen by Jazz Francois at [facility]. Client has no-showed to last appt and today.She will be targetted for closing if she does not responde to correspondence that will be sent on 02/14/13 Social History Social History Type Response Smoking Status 5-9 cigarettes (betw een 1/4 to 1/2 pack)/day in last 30 days entered on: 09/08/20 Sex
--- OUTSIDE RECORDS SUMMARY | 2022-11-03 10:35 | XMS_ITS | Continuity of Care Document ---
Author Name Unknown Organization [facility] Address [address] [place] [address]- Care Team Providers Care Adoption Coordinator Name Role Phone Ilya De Leon MD Primary Care Physician Encounter [facility] Date(s): 10/03/19 - 11/23/19 [facility] [place] [address] [place] [address]- [facility] Attending Physician: Ilya De Leon MD Admitting Physician: Ilya De Leon MD Allergies, Adverse Reactions, Alerts Substance Reaction Severity Status penicillin Rash Active morphine HAND SWELLING Active Toradol Rash Active Motrin tight throat Rash Active Imitrex Chest pain Active Compazine throat swells Active Reglan Agitated Active trimethoprim-sulfamethoxazole DS 1 Throa t Hives 17-MAY-2013 07:29:57<$> Unknown Active dehydroepiandrosterone 2 Chest pain Act julienne aspirin Ibuprofen tight throat Rash Active 1By phone, reported hives and throat locking up after taking doses of Bactrim repeatedly for several days 2DHEA Immunizations Given and Recorded Vaccine Date Status Refusal Reason influenza virus vaccine, inactivated 1 03/22/12 Gi lizbeth influenza virus vaccine, inactivated 2 01/30/11 Gi lizbeth 1Admin Note: ADMIN BY [facility] 2Admin Note: FLUVIRIN MULTIDOSE ADMINISTERED AT [facility] Medications Cavilon Emollient topical cream 1 application, Topically, 2 times a day, PRN for dry skin, # 454 Gm, 1 Refills, Maintenance, 09/30/19 16:26:00 EDT, Cream, [facility], 1 application Topically 2 times a day,PRN:for dry skin, 158, cm, 08/27/19 13:02:00 EDT, Height, 76, kg... Start Date: 09/30/19 Status: Ordered Claritin 10 mg oral tablet 10 mg, 1, tablet, By Mouth, Daily, # 15 tablet, Refills 3, Tot. Refills 3, Maintenance, 11/06/18 8:33:38 EDT, Route to Pharmacy Electronically, [id number], [facility] Start Date: 11/06/18 Status: Ordered Dovonex 0.005% topical cream 1 applicator, Topically, 2 times a day, # 60 Gm, 5 Refills, Maintenance, 07/07/19 17:30:00 EDT, [facility], 1 applicator Topically 2 times [...] 3 Refills, Maintenance, 06/04/19 14:52:00 EDT, Cream, [facility], 1 application Topically 2 times [...] FOR ANXIETY FOR 28 DAYS Can fill 11/15/19, # 42 tablet, 0 Refills, Soft Stop, 11/11/19 12:38:00 EDT, [facility], 158, cm, 08/10... Start Date: 11/11/19 Status: Ordered Medrol Dosepak 4 mg oral tablet per label intructions, By Mouth, Once, as on label, # 1 each, 0 Refills, Soft Stop, 08/11/19 20:08:00 EDT, [facility], 158, cm, 12/24/18 10:25:00 EDT, [...] 0 Refills, Soft Stop, 08/27/19 14:17:00 EDT, [facility], 1 applicator Topically 3x per week, 158, [...] 3 Refills, Soft Stop, 09/23/19 15:13:00 EDT, [facility], 7, APPLY TOPICALLY TO AFFECTED [...] 0 Refills, Maintenance, 04/06/19 20:19:00 EST, Tablet, [facility] 3, 158, cm, 12/24/18 10:25:00 EDT, Height, [...]
--- OUTSIDE RECORDS SUMMARY | 2022-11-03 10:35 | XMS_ITS | Continuity of Care Document ---
Author Name Unknown Organization [facility] Address Unknown Care Team Providers Care Medical Staff Manager Name Role Phone Ilya De Leon MD Primary Care Physician Encounter [facility] Date(s): 03/23/21 - 04/22/21 [facility] Allergies, Adverse Reactions, Alerts Substance Reaction [...] 01/30/11 Gi lizbeth 1Admin Note: ADMIN BY [facility] 2Admin Note: FLUVIRIN MULTIDOSE ADMINISTERED AT [facility] Medications capsaicin 0.025% topical cream See Instructions, APPLY TO AFFECTED AREA TWICE A DAY, # 60 Gm, 1 Refills, [id number], 30, APPLY TO AFFECTED AREA TWICE A DAY, 155, cm, 04/08/21 11:33:00 EST, Height, 95.9, kg, 12/05/20 10:08:00 EDT, Dry Weight Start Date: 04/17/21 Status: Ordered Cavilon Emollient topical cream 1 application, Topically, 2 times a day, PRN for dry skin, # 454 Gm, 1 Refills, Maintenance, 09/30/19 16:26:00 EDT, Cream, [facility] 3, 1 application Topically 2 times a day,PRN:for dry skin, 158, cm, 08/27/19 13:02:00 EDT, Height, 76, kg... Start Date: 09/30/19 Status: Ordered cetirizine 10 mg oral tablet 1 tablet = 10 mg, By Mouth, Daily, # 30 tablet, 0 Refills, Maintenance, 12/03/20 13:44:00 EDT, Tablet, [facility]/pharmacy #[id number], Partial fill upon patient request if the prescription is for a schedule II opioid drug., 158, cm, 12/03/20 13:27:00 EDT, Height,... Start Date: 12/03/20 Status: Ordered Claritin 10 mg oral tablet 10 mg, 1, tablet, By Mouth, Daily, # 15 tablet, Refills 3, Tot. Refills 3, Maintenance, 11/06/18 8:33:38 EDT, Route to Pharmacy Electronically, [id number], [facility] Start Date: 11/06/18 Status: Ordered clindamycin 1% topical gel 1 application, Topically, 2 times a day, # 30 Gm, 0 Refills, Maintenance, 04/08/21 12:14:00 EST, Gel, [facility], Partial fill upon patient request if the prescription is for a schedule II opioid drug., 1 application Topically 2 ti... Start Date: 04/08/21 Status: Ordered clindamycin 150 mg oral capsule See Instructions, 3 capsultes 3 times a day, # 45 capsule, 0 Refills, Acute 01/20/22 14:53:00 EST, 03/17/21 14:50:00 EST, Capsule, [facility], Partial fill upon patient request ifthe prescription is for a schedule II opioid drug.,... 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 Start Date: 04/27/20 Stop Date: 05/27/20 Status: Ordered furosemide 20 mg oral tablet 1, tablet, By Mouth, Daily, # 30 tablet, Refills 3, Tot. Refills 3, Maintenance, 04/18/21 12:11:00 EST, Route to Pharmacy Electronically, [facility]/pharmacy #[id number], 155, cm, 04/18/21 10:12:00 EST, [...] A DAY, # 50 Gm, 1 Refills, [facility] [id number], 30, APPLY A THIN FILM TO THE AFFECTED SKIN AND RUB IN GENTLY AND COMPLETELY TWICE A DAY, 155, cm, 12/05/20 10:0... Start Date: 03/15/21 Status: Ordered hydrocortisone 1% topical cream 1 application, Topically, 2 times a day, Apply to rash areas, # 60 Gm, 3 Refills, Maintenance, 06/04/19 14:52:00 EDT, Cream, [facility] 3, 1 application Topically 2 times a day,Instr:Apply to rash areas, 158, cm, 12/24/18 10:25:00 EDT, [place]i... Start Date: 06/04/19 Status: Ordered ketoconazole 2% topical shampoo See Instructions, APPLY 1 APPLICATOR TOPICALLY 3X PER WEEK, # 120 mL, 3 Refills, [facility], 30, APPLY 1 APPLICATOR TOPICALLY 3X PER [...] 2 Refills, Maintenance, 03/08/21 10:26:00 EST, Cream, [facility]/pharmacy #[id number], Partial fill upon patient request if the prescription is for a schedule II opioid drug., 1 application Topically 3 times a day,... Start Date: 03/08/21 Status: Ordered [place] 0.65% nasal spray 2 sprays, Nares, Both, 4 times a day, # 1 each, 0 Refills, Maintenance, 12/03/20 13:46:00 EDT, [facility]/pharmacy #[id number], Partial fill upon patient request [...] tablet, 0 Refills, Maintenance, 04/18/21 12:08:00 EST, [facility]/pharmacy #[id number], Partial fill upon patient request if the prescription is for a schedule II opioid drug., 155, cm, 04/18/21 10:12:00 EST, Height, 95.9, k... Start Date: 04/18/21 Stop Date: 05/02/21 Status: Ordered selenium sulfide 2.5% topical lotion See Instructions, APPLY TOPICALLY TO AFFECTED AREA EVERY DAY FOR 7 DAYS, # 120 mL, 3 Refills, Soft Stop, 03/08/21 10:26:00 EST, [facility]/pharmacy #[id number], 7, APPLY TOPICALLY TO AFFECTED [...] 1 Refills, Maintenance, 03/10/20 18:21:00 EST, Cream, [facility], Partial fill upon patient request if the prescription is fora schedule II opioid drug., 1 application Topically... Start Date: 03/10/20 Status: Ordered tiZANidine 2 mg oral tablet 2 mg, 1, tablet, By Mouth, 3 times a day, for 30 days, # 90 tablet, Refills 0, Tot. Refills 0, Acute 05/08/21 12:19:00 EST, 04/08/21 12:19:00 EST, Route to Pharmacy Electronically, [facility], Partial fill upon patient request if t... Start Date: 04/08/21 Stop Date: 05/08/21 Status: Ordered Valium 5 mg oral tablet 5 mg, 1, tablet, By Mouth, Daily at bedtime, PRN, # 3 tablet, Refills 0, Tot. Refills 0, Maintenance, Spasm, 04/03/21 11:16:00 EST, Route to Pharmacy Electronically, [facility], Partialfill upon patient request if the prescription is fo... Start Date: 04/03/21 Status: Ordered Problem List Condition Effective Dates Status Health Status Inform ant Anxiety(Confirmed) Active Opioid type dependence, continuous(Confirmed) 1 Active Osteoarthritis of left knee(Confirmed) Active Psoriasis(Confirmed) Active Severe obesity(Confirmed) Active 1Client had been seen by Jazz Francois at [facility]. Client has no-showed to last appt and today.She will be targetted for closing if she does not responde to correspondence that will be sent on 02/14/13 Social History Social History Type Response Smoking Status 10 or more cigarette s (1/2 pack or more)/day in last 30 days entered on: 04/18/21 Sex
--- OUTSIDE RECORDS SUMMARY | 2022-11-03 10:35 | XMS_ITS | Continuity of Care Document ---
Author Name Unknown Organization [facility] Address Unknown Care Team Providers Care Pharmacist In Charge Owner Name Role Phone Haley NEWMAN, Ilya Primary Care Physician [place] [facility] [place] Date(s): 07/21/21 - 08/20/21 [facility] Allergies, Adverse Reactions, Alerts [...] Gi lizbeth 1Admin Note: ADMIN BY [facility] 2Admin Note: FLUVIRIN MULTIDOSE ADMINISTERED AT [facility] Medications acetaminophen 650 mg oral tablet, extended release 2 tablet = 1,300 mg, By Mouth, Every 8 hours, # 100 tablet, 1 Refills, Maintenance, 06/29/21 15:10:00 EDT, ER Tablet, [facility]/pharmacy #[id number], Partial fill upon patient request if the prescription is for a schedule II opioid drug., 155, cm, 05/30/21 15:34:... Start Date: 06/29/21 Status: Ordered capsaicin 0.025% topical cream See Instructions, APPLY TO AFFECTED AREA TWICE A DAY, # 60 Gm, 1 Refills, [facility] STORE [id number], 30, APPLY TO AFFECTED AREA TWICE A DAY, 155, cm, 05/30/21 15:34:00 EDT, Height, 95.9, kg, 12/05/20 10:08:00 EDT, Dry Weight Start Date: 05/31/21 Status: Ordered Cavilon Emollient topical cream 1 application, Topically, 2 times a day, PRN for dry skin, # 454 Gm, 1 Refills, Maintenance, 09/30/19 16:26:00 EDT, Cream, [facility], 1 application Topically 2 times a day,PRN:for dry skin, 158, cm, 08/27/19 13:02:00 EDT, Height, 76, kg... Start Date: 09/30/19 Status: Ordered clonazePAM 0.5 mg oral tablet 1 tablet = 0.5 mg, By Mouth, Daily, May fill 08/12/21, # 14 tablet, 0 Refills, Maintenance, 08/11/21 10:18:00 EDT, Tablet, [facility], VITICULTURE TEACHER reviewed, covering for Dr. De Leon, 155, cm, 05/30/21 15:34:00 EDT, Height, 95.9, kg, 12/05/20... Start Date: 08/11/21 Stop Date: 08/25/21 Status: Ordered Dovonex 0.005% topical cream 1 applicator, Topically, 2 times a day, # 60 Gm, 5 Refills, Maintenance, 07/07/19 17:30:00 EDT, [facility], 1 applicator Topically 2 times a day,x30 days, 158, cm, 12/24/18 10:25:00 EDT, Height, 76, kg, 04/12/19 15:31:00 EST, Dry Weight Start Date: 07/07/19 Stop Date: 01/03/20 Status: Ordered fluticasone 50 mcg/inh nasal spray 1 sprays, Nares, Both, 2 times a day, in each nostril. for allergies, # 16 Gm, 0 Refills, Maintenance, 04/27/20 14:35:00 EST, [place], [facility], Partial fill upon patient request if theprescription is for a schedule II opioid drug., 1... Start Date: 04/27/20 Stop Date: 05/27/20 Status: Ordered furosemide 20 mg oral tablet 1, tablet, By Mouth, Daily, # 30 tablet, Refills 3, Tot. Refills 3, Maintenance, 04/18/21 12:11:00 EST, Route to Pharmacy Electronically, [facility]/pharmacy #[id number], 155, cm, 04/18/21 10:12:00 EST, Height, 95.9, kg, 12/05/20 10:08:00 EDT, Dry Weight Start Date: 04/18/21 Status: Ordered halobetasol 0.05% topical ointment See Instructions, APPLY A THIN FILM TO THE AFFECTED SKIN AND RUB IN GENTLY AND COMPLETELY TWICE A DAY, # 50 Gm, 1 Refills, [facility] STORE [id number], 30, APPLY A THIN FILM TO THE AFFECTED SKIN AND RUB IN GENTLY AND COMPLETELY TWICE A DAY, 155, cm, 12/05/20 10:0... Start Date: 03/15/21 Status: Ordered hydrocortisone 1% topical cream 1 application, Topically, 2 times a day, # 30 Gm, 0 Refills, Maintenance, 06/17/21 11:42:00 EDT, Cream, [facility], Partial fill upon patient request if the prescription is for a schedule II opioid drug., 1 application Topically 2 times... Start Date: 06/17/21 Status: Ordered ketoconazole 2% topical shampoo See Instructions, APPLY 1 APPLICATOR TOPICALLY 3X PER WEEK, # 120 mL, 3 Refills, [facility] [id number], 30, APPLY 1 APPLICATOR TOPICALLY 3X PER WEEK, 155, cm, 05/30/21 15:34:00 EDT, Height, 95.9, kg, 12/05/20 10:08:00 EDT, Dry Weight Start Date: 08/02/21 Status: Ordered loratadine 10 mg oral tablet 1, tablet, By Mouth, Daily, # 15 tablet, Refills 5, Tot. Refills 5, Maintenance, 08/19/21 9:15:00 EDT, Route to Pharmacy Electronically, [facility]/pharmacy #[id number], 155, cm, 05/30/21 15:34:00 EDT, Height, 95.9, kg, 12/05/20 10:08:00 EDT, Dry Weight Start Date: 08/19/21 Status: Ordered Methadone By Mouth, 0 Refills, Maintenance Start Date: 12/25/11 Status: Ordered mupirocin 2% topical cream 1 application, Topically, 3 times a day, # 30 Gm, 2 Refills, Maintenance, 03/08/21 10:26:00 EST, Cream, [facility]/pharmacy #[id number], Partial fill upon patient request if the prescription is for a schedule II opioid drug., 1 application Topically 3 times a day,... Start Date: 03/08/21 Status: Ordered permethrin 5% topical cream 1 application, Topically, Once, to skin head to feet, remove by washing after 8 to 14 hours, # 60 Gm, 0 Refills, Soft Stop, 07/27/20 11:50:00 EDT, Cream, [facility], 1 applicationTopically Once,Instr:to skin head to feet, remove b... Start Date: 07/27/20 Status: Ordered predniSONE 10 mg oral tablet 1 tablet, By Mouth, Daily, for 7 days, May fill 08/19 States she lost pills MAY PAY DOBBINS, # 7 tablet, 0 Refills, Physician Stop 08/26/21 13:40:00 EDT, 08/19/21 13:40:00 EDT, [facility]/pharmacy #[id number], 155, cm, 05/30/21 15:34:00 EDT, Height, 95.9, kg, ... Start Date: 08/19/21 Stop Date: 08/26/21 Status: Ordered predniSONE 10 mg oral tablet 1 tablet = 10 mg, By Mouth, Daily, [facility] rx, # 3 tablet, 0 Refills, Maintenance, 08/09/21 19:37:00EDT, [facility]/pharmacy #[id number], Partial fill upon patient request if the prescription is for a schedule IIopioid drug., 155, cm, 05/30/21 15:34:00 EDT, Heigh... Start Date: 08/09/21 Stop Date: 08/12/21 Status: Ordered selenium sulfide 2.5% topical lotion See Instructions, APPLY TOPICALLY TO AFFECTED AREA EVERY DAY FOR 7 DAYS, # 120 mL, 3 Refills, Soft Stop, 04/26/21 18:07:00 EST, [facility]/pharmacy #[id number], 7, APPLY TOPICALLY TO AFFECTED AREA EVERY DAY FOR 7DAYS, 155, cm, 04/18/21 10:12:00 EST, Height, 95.9,... Start Date: 04/26/21 Status: Ordered tiZANidine 2 mg oral tablet 1, tablet, By Mouth, 3 times a day, # 60 tablet, Refills 0, Route to Pharmacy Electronically, [facility] STORE [id number], 155, cm, 05/03/21 14:39:00 EST, Height, 95.9, kg, 12/05/20 10:08:00 EDT, Dry Weight Start Date: 05/09/21 Status: Ordered traMADol 50 mg oral tablet 1 tablet = 50 mg, By Mouth, Every 12 hours, PRN Pain , Severe, for 7 days, # 14 tablet, 0 Refills, Acute 08/25/21 14:54:00 EDT, 08/18/21 14:54:00 EDT, Tablet, [facility]/pharmacy #[id number], Partial fill upon patient request if the prescription is for a schedule... Start Date: 08/18/21 Stop Date: 08/25/21 Status: Ordered Problem List Condition Effective Dates Status Health Status Inform ant Anxiety(Confirmed) Active Opioid type dependence, continuous(Confirmed) 1 Active Osteoarthritis of left knee(Confirmed) Active Psoriasis(Confirmed) Active Severe obesity(Confirmed) Active 1Client had been seen by Jazz Francois at [facility]. Client has no-showed to last appt and today.She will be targetted for closing if she does not responde to correspondence that will be sent on 02/14/13 Social History Social History Type Response Smoking Status 10 or more cigarette s (1/2 pack or more)/day in last 30 days entered on: 04/18/21 Sex
--- OUTSIDE RECORDS SUMMARY | 2022-11-03 10:35 | XMS_ITS | Continuity of Care Document ---
Author Name Unknown Organization [facility] Address Unknown Care Team Providers Care Ssds Mk 2 Advanced Operator Name Role Phone Ilya De Leon MD Primary Care Physician [place] [facility] [place](s): 02/23/21 - 03/25/21 [facility] Allergies, Adverse Reactions, Alerts Substance Reaction Severity [...] 01/30/11 Gi lizbeth 1Admin Note: ADMIN BY [facility] 2Admin Note: FLUVIRIN MULTIDOSE ADMINISTERED AT [facility] Medications acetaminophen-codeine 300 mg-15 mg oral tablet 1 tablet, By Mouth, Every 4 hours, PRN for pain, # 15 tablet, 0 Refills, Acute 03/29/21 12:00:00 EST, 03/25/21 10:54:00 EST, Tablet, [facility], Partial fill upon patient request if the prescription is for a schedule II opioid drug... Start Date: 03/25/21 Stop Date: 03/29/21 Status: Ordered capsaicin 0.025% topical cream See Instructions, APPLY TO AFFECTED AREA TWICE A DAY, # 60 Gm, 0 Refills, [facility] STORE [id number], 30, APPLY TO AFFECTED AREA TWICE A DAY, 155, cm, 03/17/21 7:53:00 EST, Height, 95.9, kg, 12/05/20 10:08:00 EDT, Dry Weight Start Date: 03/21/21 Status: Ordered Cavilon Emollient topical cream 1 application, Topically, 2 times a day, PRN for dry skin, # 454 Gm, 1 Refills, Maintenance, 09/30/19 16:26:00 EDT, Cream, [facility] 3, 1 application Topically 2 times a day,PRN:for dry skin, 158, cm, 08/27/19 13:02:00 EDT, Height, 76, kg... Start Date: 09/30/19 Status: Ordered cetirizine 10 mg oral tablet 1 tablet = 10 mg, By Mouth, Daily, # 30 tablet, 0 Refills, Maintenance, 12/03/20 13:44:00 EDT, Tablet, [facility]/pharmacy #[id number], Partial fill upon patient request if the prescription is for a schedule II opioid drug., 158, cm, 12/03/20 13:27:00 EDT, Height,... Start Date: 12/03/20 Status: Ordered Claritin 10 mg oral tablet 10 mg, 1, tablet, By Mouth, Daily, # 15 tablet, Refills 3, Tot. Refills 3, Maintenance, 11/06/18 8:33:38 EDT, Route to Pharmacy Electronically, [id number], [facility] Start Date: 11/06/18 Status: Ordered clindamycin 150 mg oral capsule See Instructions, 3 capsultes 3 times a day, # 45 capsule, 0 Refills, Acute 01/20/22 14:53:00 EST, 03/17/21 14:50:00 EST, Capsule, [facility], Partial fill upon patient request ifthe prescription is for a schedule II opioid drug.,... Start Date: 03/17/21 Stop Date: 01/20/22 Status: Ordered clindamycin 300 mg oral capsule 1 capsule = 300 mg, By Mouth, 3 times a day, for 7 days, # 21 capsule, 0 Refills, Acute 04/01/21 10:52:00 EST, 03/25/21 10:52:00 EST, Capsule, [facility], Partial fill upon patient request if the prescription is for a schedule II o... Start Date: 03/25/21 Stop Date: 04/01/21 Status: Ordered clonazePAM 0.5 mg oral tablet 1 tablet = 0.5 mg, By Mouth, Daily, OFFICE SERVICES REPRESENTATIVE checked Recurrent lost RX, # 7 tablet, 0 Refills, Maintenance, 03/21/21 9:21:00 EST, Tablet, [facility]/pharmacy #[id number], Partial fill upon patient request if the prescription is for a schedule II opioid drug., 155, cm,... Start Date: 03/21/21 Stop Date: 03/28/21 Status: Ordered diphenhydrAMINE 25 mg oral tablet 1 tablet = 25 mg, By Mouth, 3 times a day, PRN as needed for itching, Will cause drowsiness, # 30 tablet, 0 Refills, Maintenance, 07/16/20 15:11:00 EDT, Tablet, [facility], Partial fill upon patient request if the prescription is f... Start Date: 07/16/20 Status: Ordered Dovonex 0.005% topical cream 1 applicator, Topically, 2 times a day, # 60 Gm, 5 Refills, Maintenance, 07/07/19 17:30:00 EDT, [facility] 3, 1 applicator Topically 2 times [...] Gm, 0 Refills, Maintenance, 04/27/20 14:35:00 EST, [place], [facility], Partial fill upon patient request if theprescription is for a schedule II opioid drug., 1... Start Date: 04/27/20 Stop Date: 05/27/20 Status: Ordered furosemide 20 mg oral tablet 1, tablet, By Mouth, Daily, # 30 tablet, Refills 3, Tot. Refills 3, Maintenance, 01/20/21 12:45:00 EST, Route to Pharmacy Electronically, [facility]/pharmacy #[id number], 155, cm, 12/05/20 10:08:00 EDT, Height, 95.9, kg, 12/05/20 10:08:00 EDT, Dry Weight Start Date: 01/20/21 Status: Ordered halobetasol 0.05% topical ointment See Instructions, APPLY A THIN FILM TO THE AFFECTED SKIN AND RUB IN GENTLY AND COMPLETELY TWICE A DAY, # 50 Gm, 1 Refills, [facility] STORE [id number], 30, APPLY A THIN FILM TO THE AFFECTED SKIN AND RUB IN GENTLY AND COMPLETELY TWICE A DAY, 155, cm, 12/05/20 10:0... Start Date: 03/15/21 Status: Ordered hydrocortisone 1% topical cream 1 application, Topically, 2 times a day, Apply to rash areas, # 60 Gm, 3 Refills, Maintenance, 06/04/19 14:52:00 EDT, Cream, [facility], 1 application Topically 2 times a day,Instr:Apply to rash areas, 158, cm, 12/24/18 10:25:00 EDT, Hei... Start Date: 06/04/19 Status: Ordered ketoconazole 2% topical shampoo See Instructions, APPLY 1 APPLICATOR TOPICALLY 3X PER WEEK, # 120 mL, 3 Refills, [facility]ORE [id number], 30, APPLY 1 APPLICATOR TOPICALLY 3X PER [...] 2 Refills, Maintenance, 03/08/21 10:26:00 EST, Cream, [id number] Partial fill upon patient request if the prescription is for a schedule II opioid drug., 1 application Topically 3 times a day,... Start Date: 03/08/21 Status: Ordered [place] 0.65% nasal spray 2 sprays, Nares, Both, 4 times a day, # 1 each, 0 Refills, Maintenance, 12/03/20 13:46:00 EDT, [facility]/pharmacy #[id number], Partial fill upon patient request if [...] Refills, Soft Stop, 07/27/20 11:50:00 EDT, Cream, [facility], 1 applicationTopically Once,Instr:to skin head to feet, remove b... Start Date: 07/27/20 Status: Ordered predniSONE 20 mg oral tablet 2 tablet = 40 mg, By Mouth, Daily, for 5 days, # 10 tablet, 0 Refills, Acute 03/30/21 10:51:00 EST,03/25/21 10:51:00 EST, Tablet, [facility], Partial fill upon patient request ifthe prescription is for a schedule II opioid drug.,... Start Date: 03/25/21 Stop Date: 03/30/21 Status: Ordered predniSONE 5 mg oral tablet 1 tablet, By Mouth, 3 times a day, for 7 days, do not fill until 03/15/20, # 21 tablet, 0 Refills, Physician Stop 03/28/21 9:21:00 EST, 03/21/21 9:21:00 EST, [facility]/pharmacy #[id number], 155, cm, 03/17/21 7:53:00 EST, Height, 95.9, kg, 12/05/20 10:08:00 EDT, Dry... Start Date: 03/21/21 Stop Date: 03/28/21 Status: Ordered selenium sulfide 2.5% topical lotion See Instructions, APPLY TOPICALLY TO AFFECTED AREA EVERY DAY FOR 7 DAYS, # 120 mL, 3 Refills, Soft Stop, 03/08/21 10:26:00 EST, [facility]/pharmacy #[id number], 7, APPLY TOPICALLY TO AFFECTED AREA EVERY DAY FOR 7DAYS, 155, cm, 12/05/20 10:08:00 EDT, Height, 95.9,... Start Date: 03/08/21 Status: Ordered Shingrix intramuscular injection = 0.5 mL, Intramuscular, Once, repeat dose in 2 to 6 months, # 2 each, 0 Refills, Soft Stop, 05/27/20 11:03:00 EDT, Powder, [facility], Partial fill upon patient request if the [...] 1 Refills, Maintenance, 03/10/20 18:21:00 EST, Cream[facility], Partial fill upon patient request if the prescription is fora schedule II opioid drug., 1 application Topically... Start Date: 03/10/20 Status: Ordered Problem List Condition Effective Dates Status Health Status Inform ant Anxiety(Confirmed) Active Opioid type dependence, continuous(Confirmed) 1 Active Osteoarthritis of left knee(Confirmed) Active Psoriasis(Confirmed) Active Severe obesity(Confirmed) Active 1Client had been seen by Jazz Francois at [facility]. Client has no-showed to last appt and today.She will be targetted for closing if she does not responde to correspondence that will be sent on 02/14/13 Social History Social History Type Response Smoking Status 5-9 cigarettes (betw een / to 1/2 pack)/day in last 30 days entered on: 09/08/20 Sex
--- OUTSIDE RECORDS SUMMARY | 2022-11-03 10:35 | XMS_ITS | Continuity of Care Document ---
Author Name Unknown Organization [facility] Address Unknown Care Team Providers Care Inside Sales Name Role Phone Ilya De Leon MD Primary Care Physician Encounter [facility] [place] Date(s): 05/24/21 - 06/24/21 [facility] Attending Physician: Biju Lim MD Admitting Physician: Biju Lim MD Allergies, Adverse Reactions, Alerts Substance Reaction [...] MULTIDOSE ADMINISTERED AT [facility] Medications capsaicin 0.025% topical cream See Instructions, APPLY TO AFFECTED AREA TWICE A DAY, # 60 Gm, 1 Refills, [facility]ORE [id number], 30, APPLY TO AFFECTED AREA TWICE A DAY, 155, cm, 05/30/21 15:34:00 EDT, Height, 95.9, kg, 12/05/20 10:08:00 EDT, Dry Weight Start Date: 05/31/21 Status: Ordered Cavilon Emollient topical cream 1 application, Topically, 2 times a day, PRN for dry skin, # 454 Gm, 1 Refills, Maintenance, 09/30/19 16:26:00 EDT, Cream, [facility], 1 application Topically 2 times a day,PRN:for dry skin, 158, cm, 08/27/19 13:02:00 EDT, Height, 76, kg... Start Date: 09/30/19 Status: Ordered clonazePAM 0.5 mg oral tablet 1 tablet = 0.5 mg, By Mouth, Daily, mAY FILL 06/21/21, # 14 tablet, 0 Refills, Maintenance, 06/21/2215:00:00 EDT, Tablet, [facility]/pharmacy #[id number], TECHNICAL MANAGER reviewed, covering for Dr. De Leon, 155, cm, 05/30/2214:34:00 EDT, Height, 95.9, kg, 12/05/20 10:08:00 E... Start Date: 06/20/21 Stop Date: 07/04/21 Status: Ordered Dovonex 0.005% topical cream 1 applicator, Topically, 2 times a day, # 60 Gm, 5 Refills, Maintenance, 07/07/19 17:30:00 EDT, [facility], 1 applicator Topically 2 times a day,x30 days, 158, cm, 12/24/18 10:25:00 EDT, Height, 76, kg, 04/12/19 15:31:00 EST, Dry Weight Start Date: 07/07/19 Stop Date: 01/03/20 Status: Ordered fluticasone 50 mcg/inh nasal spray 1 sprays, Nares, Both, 2 times a day, in each nostril. for allergies, # 16 Gm, 0 Refills, Maintenance, 04/27/20 14:35:00 EST, [place], [facility], Partial fill upon patient request if theprescription is for a schedule II opioid drug., 1... Start Date: 04/27/20 Stop Date: 05/27/20 Status: Ordered furosemide 20 mg oral tablet 1, tablet, By Mouth, Daily, # 30 tablet, Refills 3, Tot. Refills 3, Maintenance, 04/18/21 12:11:00 EST, Route to Pharmacy Electronically, [facility]/pharmacy #[id number], 155, cm, 04/18/21 10:12:00 EST, Height, 95.9, kg, 12/05/20 10:08:00 EDT, Dry Weight Start Date: 04/18/21 Status: Ordered halobetasol 0.05% topical ointment See Instructions, APPLY A THIN FILM TO THE AFFECTED SKIN AND RUB IN GENTLY AND COMPLETELY TWICE A DAY, # 50 Gm, 1 Refills, [facility]ORE [id number], 30, APPLY A THIN FILM TO THE AFFECTED SKIN AND RUB IN GENTLY AND COMPLETELY TWICE A DAY, 155, cm, 12/05/20 10:0... Start Date: 03/15/21 Status: Ordered hydrocortisone 1% topical cream 1 application, Topically, 2 times a day, # 30 Gm, 0 Refills, Maintenance, 06/17/21 11:42:00 EDT, Cream, [facility], Partial fill upon patient request if the prescription is for a schedule II opioid drug., 1 application Topically 2 times... Start Date: 06/17/21 Status: Ordered ketoconazole 2% topical shampoo See Instructions, APPLY 1 APPLICATOR TOPICALLY 3X PER WEEK, # 120 mL, 3 Refills, [id number], 30, APPLY 1 APPLICATOR TOPICALLY 3X PER WEEK, 155, cm, 03/17/21 7:53:00 EST, Height, 95.9, kg, 12/05/20 10:08:00 EDT, Dry Weight Start Date: 03/21/21 Status: Ordered loratadine 10 mg oral tablet 1, tablet, By Mouth, Daily, # 15 tablet, Refills 3, Route to Pharmacy Electronically, [id number], 155, cm, 05/30/21 15:34:00 EDT, Height, 95.9, kg, 12/05/20 10:08:00 EDT, Dry Weight Start Date: 06/21/21 Status: Ordered Methadone By Mouth, 0 Refills, Maintenance Start Date: 12/25/11 Status: Ordered mupirocin 2% topical cream 1 application, Topically, 3 times a day, # 30 Gm, 2 Refills, Maintenance, 03/08/21 10:26:00 EST, Cream, [facility]/pharmacy #[id number], Partial fill upon patient request if the prescription is for a schedule II opioid drug., 1 application Topically 3 times a day,... Start Date: 03/08/21 Status: Ordered permethrin 5% topical cream 1 application, Topically, Once, to skin head to feet, remove by washing after 8 to 14 hours, # 60 Gm, 0 Refills, Soft Stop, 07/27/20 11:50:00 EDT, Cream, [facility], 1 applicationTopically Once,Instr:to skin head to feet, remove b... Start Date: 07/27/20 Status: Ordered predniSONE 10 mg oral tablet 1 tablet, By Mouth, Daily, for 7 days, May fill on 06/28 and will be sent to [facility], # 7 tablet, 0 Refills, Physician Stop 06/29/21 14:14:00 EDT, 06/22/21 14:14:00 EDT, [facility], 155, cm, 05/30/21 15:34:00 EDT, Height, 95... Start Date: 06/22/21 Stop Date: 06/29/21 Status: Ordered selenium sulfide 2.5% topical lotion See Instructions, APPLY TOPICALLY TO AFFECTED AREA EVERY DAY FOR 7 DAYS, # 120 mL, 3 Refills, Soft Stop, 04/26/21 18:07:00 EST, [facility]/pharmacy #[id number], 7, APPLY TOPICALLY TO AFFECTED AREA EVERY DAY FOR 7DAYS, 155, cm, 04/18/21 10:12:00 EST, Height, 95.9,... Start Date: 04/26/21 Status: Ordered tiZANidine 2 mg oral tablet 1, tablet, By Mouth, 3 times a day, # 60 tablet, Refills 0, Route to Pharmacy Electronically, [facility] STORE [id number], 155, cm, 05/03/21 14:39:00 EST, Height, 95.9, [...]
--- OUTSIDE RECORDS SUMMARY | 2022-11-03 10:35 | XMS_ITS | Continuity of Care Document ---
Author Name Unknown Organization [facility] Address Unknown Care Team Providers Care Jig Maker Name Role Phone Haley NEWMAN, Ilya Primary Care Physician Encounter [facility] [place] Date(s): 05/30/21 - 07/02/21 [facility] Attending Physician: Ilya De Leon MD Admitting [...] 01/30/11 Gi lizbeth 1Admin Note: ADMIN BY [facility] 2Admin Note: FLUVIRIN MULTIDOSE ADMINISTERED AT [facility] Medications acetaminophen 650 mg oral tablet, extended release 2 tablet = 1,300 mg, By Mouth, Every 8 hours, # 100 tablet, 1 Refills, Maintenance, 06/29/21 15:10:00 EDT, ER Tablet, [id number], Partial fill upon patient request if the prescription is for a schedule II opioid drug., 155, cm, 05/30/21 15:34:... Start Date: 06/29/21 Status: Ordered capsaicin 0.025% topical cream See Instructions, APPLY TO AFFECTED AREA TWICE A DAY, # 60 Gm, 1 Refills, [id number], 30, APPLY TO AFFECTED AREA TWICE A DAY, 155, cm, 05/30/21 15:34:00 EDT, Height, 95.9, kg, 12/05/20 10:08:00 EDT, Dry Weight Start Date: 05/31/21 Status: Ordered Cavilon Emollient topical cream 1 application, Topically, 2 times a day, PRN for dry skin, # 454 Gm, 1 Refills, Maintenance, 09/30/19 16:26:00 EDT, Cream, [facility], 1 application Topically 2 times a day,PRN:for dry skin, 158, cm, 08/27/19 13:02:00 EDT, Height, 76, kg... Start Date: 09/30/19 Status: Ordered clonazePAM 0.5 mg oral tablet 1 tablet = 0.5 mg, By Mouth, Daily, mAY FILL 06/21/21, # 14 tablet, 0 Refills, Maintenance, 06/21/2215:00:00 EDT, Tablet, [facility]acy #[id number], MEDICAL AIDE reviewed, covering for Dr. De Leon, 155, [...] Gm, 0 Refills, Maintenance, 04/27/20 14:35:00 EST, [place], [facility], Partial fill upon patient request if theprescription is for a schedule II opioid drug., 1... Start Date: 04/27/20 Stop Date: 05/27/20 Status: Ordered furosemide 20 mg oral tablet 1, tablet, By Mouth, Daily, # 30 tablet, Refills 3, Tot. Refills 3, Maintenance, 04/18/21 12:11:00 EST, Route to Pharmacy Electronically, [facility]/pharmacy #[id number], 155, cm, 04/18/21 10:12:00 EST, Height, 95.9, kg, 12/05/20 10:08:00 EDT, Dry Weight Start Date: 04/18/21 Status: Ordered halobetasol 0.05% topical ointment See Instructions, APPLY A THIN FILM TO THE AFFECTED SKIN AND RUB IN GENTLY AND COMPLETELY TWICE A DAY, # 50 Gm, 1 Refills, [id number], 30, APPLY A THIN FILM TO THE [...] PER WEEK, # 120 mL, 3 Refills, [id number], 30, APPLY 1 APPLICATOR TOPICALLY 3X PER WEEK, 155, cm, 03/17/21 7:53:00 EST, Height, 95.9, kg, 12/05/20 10:08:00 EDT, Dry Weight Start Date: 03/21/21 Status: Ordered loratadine 10 mg oral tablet 1, tablet, By Mouth, Daily, # 15 tablet, Refills 3, Route to Pharmacy Electronically, [id number], 155, cm, 05/30/21 15:34:00 EDT, Height, 95.9, kg, 12/05/20 10:08:00 EDT, Dry Weight Start Date: 06/21/21 Status: Ordered Methadone By Mouth, 0 Refills, Maintenance Start Date: 12/25/11 Status: Ordered mupirocin 2% topical cream 1 application, Topically, 3 times a day, # 30 Gm, 2 Refills, Maintenance, 03/08/21 10:26:00 EST, Cream, [id number], Partial fill upon patient request if the prescription is for a schedule II opioid drug., 1 application Topically 3 times a day,... Start Date: 03/08/21 Status: Ordered permethrin 5% topical cream 1 application, Topically, Once, to skin head to feet, remove by washing after 8 to 14 hours, # 60 Gm, 0 Refills, Soft Stop, 07/27/20 11:50:00 EDT, Cream, [facility], 1 applicationTopically Once,Instr:to skin head to feet, remove b... Start Date: 07/27/20 Status: Ordered selenium sulfide 2.5% topical lotion See Instructions, APPLY TOPICALLY TO AFFECTED AREA EVERY DAY FOR 7 DAYS, # 120 mL, 3 Refills, Soft Stop, 04/26/21 18:07:00 EST, [facility]/pharmacy #[id number], 7, APPLY TOPICALLY TO AFFECTED AREA EVERY DAY FOR 7DAYS, 155, cm, 04/18/21 10:12:00 EST, Height, 95.9,... Start Date: 04/26/21 Status: Ordered tiZANidine 2 mg oral tablet 1, tablet, By Mouth, 3 times a day, # 60 tablet, Refills 0, Route to Pharmacy Electronically, [id number], 155, cm, 05/03/21 14:39:00 EST, Height, 95.9, kg, 12/05/20 10:08:00 EDT, Dry Weight Start Date: 05/09/21 Status: Ordered Problem List Condition Effective Dates Status Health Status Inform ant Anxiety(Confirmed) Active Opioid type dependence, continuous(Confirmed) 1 Active Osteoarthritis of left knee(Confirmed) Active Psoriasis(Confirmed) Active Severe obesity(Confirmed) Active 1Client had been seen by Jazz Francois at [facility]. Client has no-showed to last appt and today.She will be targetted for closing if she does not responde to correspondence that will be sent on 02/14/13 Social History Social History Type Response Smoking Status 10 or more cigarette s (1/2 pack or more)/day in last 30 days entered on: 04/18/21 Sex
--- OUTSIDE RECORDS SUMMARY | 2022-11-03 10:35 | XMS_ITS | Continuity of Care Document ---
Author Name Unknown Organization [facility] Address [address] [place] [address]- Care Team Providers Care Home Health Manager Name Role Phone Ilya De Leon MD Primary Care Physician Encounter [facility] [place] Date(s): 09/30/19 - 10/30/19 [facility]/[address] [address] Allergies, Adverse Reactions, Alerts Substance Reaction Severity Status penicillin Rash Active aspirin Ibuprofen tight throat Rash Active morphine HAND SWELLING Active Motrin tight throat Rash Active Imitrex Chest pain Active Reglan Agitated Active dehydroepiandrosterone 1 Chest pain Act julienne Toradol Rash Active Compazine throat swells Active trimethoprim-sulfamethoxazole DS 2 Throa t Hives [...] FLUVIRIN MULTIDOSE ADMINISTERED AT [facility] Medications Cavilon Emollient topical cream 1 application, Topically, 2 times a day, PRN for dry skin, # 454 Gm, 1 Refills, Maintenance, 09/30/19 16:26:00 EDT, Cream, [facility], 1 application Topically 2 times a day,PRN:for dry skin, 158, cm, 08/27/19 13:02:00 EDT, Height, 76, kg... Start Date: 09/30/19 Status: Ordered Claritin 10 mg oral tablet 10 mg, 1, tablet, By Mouth, Daily, # 15 tablet, Refills 3, Tot. Refills 3, Maintenance, 11/06/18 8:33:38 EDT, Route to Pharmacy Electronically, [id number], [facility] Start Date: 11/06/18 Status: Ordered Dovonex 0.005% topical cream 1 applicator, Topically, 2 times a day, # 60 Gm, 5 Refills, Maintenance, 07/07/19 17:30:00 EDT, [facility], 1 applicator Topically 2 times [...] # 42 tablet, 0 Refills, Soft Stop, 10/18/19 13:38:00 EDT, [facility] 3, 158, cm, ... Start Date: 10/18/19 Status: Ordered Medrol Dosepak 4 mg oral tablet per label intructions, By Mouth, Once, as on label, # 1 each, 0 Refills, Soft Stop, 08/11/19 20:08:00 EDT, [facility] 3, 158, cm, 12/24/18 10:25:00 EDT, [...] 0 Refills, Soft Stop, 08/27/19 14:17:00 EDT, [facility], 1 applicator Topically 3x per week, [...] 3 Refills, Soft Stop, 09/23/19 15:13:00 EDT, [facility], 7, APPLY TOPICALLY TO AFFECTED [...]
--- OUTSIDE RECORDS SUMMARY | 2022-11-03 10:36 | XMS_ITS | Continuity of Care Document ---
Author Name Unknown Organization [facility] Address [address] [place] [address]- Care Team Providers Care Ore Buyer Name Role Phone Ilya De Leon MD Primary Care Physician Encounter [facility] [place] Date(s): 12/20/21 - 03/08/22 [facility]/[address] [address]- Attending Physician: Ilya De Leon MD Admitting [...] Gi lizbeth 1Admin Note: ADMIN BY [facility] 2Admin Note: FLUVIRIN MULTIDOSE ADMINISTERED AT [facility] Medications acetaminophen 650 mg oral tablet, extended release 2 tablet = 1,300 mg, By Mouth, Every 8 hours, # 100 tablet, 1 Refills, Maintenance, 06/29/21 15:10:00 EDT, ER Tablet, [id number], Partial fill upon patient request if the prescription is for a schedule II opioid drug., 155, cm, 05/30/21 15:34:... Start Date: 06/29/21 Status: Ordered capsaicin 0.025% topical cream See Instructions, APPLY TO AFFECTED AREA TWICE A DAY, # 60 Gm, 1 Refills, [id number], 30, APPLY TO AFFECTED AREA TWICE A DAY, 155, cm, 05/30/21 15:34:00 EDT, Height, 95.9, kg, 12/05/20 10:08:00 EDT, Dry Weight Start Date: 05/31/21 Status: Ordered Cavilon Emollient topical cream 1 application, Topically, 2 times a day, PRN for dry skin, # 454 Gm, 1 Refills, Maintenance, 09/30/19 16:26:00 EDT, Cream, [facility], 1 application Topically 2 times a day,PRN:for dry skin, 158, cm, 08/27/19 13:02:00 EDT, Height, 76, kg... Start Date: 09/30/19 Status: Ordered clonazePAM 0.5 mg oral tablet 1 tablet = 0.5 mg, By Mouth, Daily at bedtime, May fill 03/03/22 and weekly on Fridays for3 weeks, # 7 tablet, 2 Refills, Maintenance, 03/01/22 11:51:00 EST, Tablet, [facility], BRINE MIXER OPERATOR reviewed, covering for Dr. De Leon, 155, cm, 01/10... Start Date: 03/01/22 Stop Date: 03/22/22 Status: Ordered coal tar topical 1% lotion See Instructions, applyTopically Daily at bedtime, # 120 mL, 3 Refills, Maintenance, 10/26/21 15:45:00 EDT, [facility], Partial fill upon patient request if the prescription is for a schedule II opioid drug., applyTopically Daily a... Start Date: 10/26/21 Status: Ordered Dovonex 0.005% topical cream 1 applicator, Topically, 2 times a day, # 60 Gm, 5 Refills, Maintenance, 07/07/19 17:30:00 EDT, [facility], 1 applicator Topically 2 times a day,x30 days, 158, cm, 12/24/18 10:25:00 EDT, Height, 76, kg, 04/12/19 15:31:00 EST, Dry Weight Start Date: 07/07/19 Stop Date: 01/03/20 Status: Ordered Eucerin Unscented topical lotion See Instructions, apply as frequently as needed, # 1 each, 0 Refills, Maintenance, 09/28/21 12:23:00 EDT, [facility], Partial fill upon patient request if the prescription is for a schedule II opioid drug., apply as frequently as n... Start Date: 09/28/21 Status: Ordered fluticasone 50 mcg/inh nasal spray 1 sprays, Nares, Both, 2 times a day, in each nostril. for allergies, # 16 Gm, 0 Refills, Maintenance, 04/27/20 14:35:00 EST, [place], [facility] 3, Partial fill upon patient request if theprescription is for a schedule II opioid drug., 1... Start Date: 04/27/20 Stop Date: 05/27/20 Status: Ordered halobetasol 0.05% topical ointment See Instructions, APPLY A THIN FILM TO THE AFFECTED SKIN AND RUB IN GENTLY AND COMPLETELY TWICE A DAY, # 50 Gm, 1 Refills, Maintenance, 10/26/21 15:44:00 EDT, [facility], 30, APPLY A THIN FILM TO THE AFFECTED SKIN AND RUB IN GENTLY... Start Date: 10/26/21 Status: Ordered ketoconazole 2% topical shampoo See Instructions, APPLY 1 APPLICATOR TOPICALLY 3X PER WEEK, # 120 mL, 3 Refills, Maintenance, 12/27/21 19:30:00 EDT, [facility] [id number], 30, APPLY 1 APPLICATOR TOPICALLY 3X PER WEEK, 155, cm, 12/12/21 16:00:00 EDT, Height, 106.5, kg, 09/14/21 9:38:00 EDT... Start Date: 12/27/21 Status: Ordered loratadine 10 mg oral tablet 1, tablet, By Mouth, Daily, # 90 tablet, Refills 1, Tot. Refills 1, Maintenance, 11/01/21 15:19:00 EDT, Route to Pharmacy Electronically, [facility]/pharmacy #[id number], 155, cm, 09/28/21 12:06:00 EDT, Height, 106.5, kg, 09/14/21 9:38:00 EDT, Dry Weight Start Date: 11/01/21 Status: Ordered Methadone By Mouth, 0 Refills, Maintenance Start Date: 12/25/11 Status: Ordered mupirocin 2% topical cream 1 application, Topically, 3 times a day, # 30 Gm, 2 Refills, Maintenance, 03/08/21 10:26:00 EST, Cream, [facility]/pharmacy #[id number], Partial fill upon patient request if the prescription is for a schedule II opioid drug., 1 application Topically 3 times a day,... Start Date: 03/08/21 Status: Ordered permethrin 5% topical cream 1 application, Topically, Once, to skin head to feet, remove by washing after 8 to 14 hours, # 60 Gm, 0 Refills, Soft Stop, 07/27/20 11:50:00 EDT, Cream, [facility], 1 applicationTopically Once,Instr:to skin head to feet, remove b... Start Date: 07/27/20 Status: Ordered predniSONE 10 mg oral tablet See Instructions, May fill 03/03/22 and weekly on Fridays for 3 weeks, # 14 tablet, 2 Refills, 03/01/22 11:51:00 EST, [facility], 155, cm, 01/23/22 14:00:00 EST, Height, 106.5, kg, 09/14/21 9:38:00 EDT, Dry Weight Start Date: 03/01/22 Status: Ordered selenium sulfide 2.5% topical lotion See Instructions, APPLY TOPICALLY TO AFFECTED AREA EVERY DAY FOR 7 DAYS, # 120 mL, 3 Refills, Soft Stop, 10/26/21 15:43:00 EDT, [facility], 7, APPLY TOPICALLY TO AFFECTED AREA EVERY DAY FOR 7 DAYS, 155, cm, 09/28/21 12:06:00 EDT, H... Start Date: 10/26/21 Status: Ordered tiZANidine 2 mg oral tablet 1, tablet, By Mouth, 3 times a day, # 60 tablet, Refills 0, Route to Pharmacy Electronically, [id number], 155, cm, 05/03/21 14:39:00 EST, Height, 95.9, kg, 12/05/20 10:08:00 EDT, Dry Weight Start Date: 05/09/21 Status: Ordered traMADol 50 mg oral tablet 1 tablet = 50 mg, By Mouth, Every 8 hours, PRN Pain , Severe, for 7 days, May fill 03/03/22 and weekly on Fridays for 3 weeks, # 21 tablet, 2 Refills, Acute 03/22/22 11:51:00 EST, 03/01/22 11:51:00 EST, Tablet, [facility] [place], [facility]... Start Date: 03/01/22 Stop Date: 03/22/22 Status: Ordered Problem List Condition Confirmation Course [...] Personnel Name: Ilya De Leon MD Position: [facility] Primary Care Physician Member Role: PCP Address: Address: [address] [place] [id number]- Care Team Related Persons Name: JD ALVAREZ Address: home [address] [place] [id number]
--- OUTSIDE RECORDS SUMMARY | 2022-11-03 10:36 | XMS_ITS | Continuity of Care Document ---
Author Name Unknown Organization [facility] Address [address] [place] [id number]- Care Team Providers Care Shoe Patternmaker Name Role Phone Ilya De Leon MD Primary Care Physician Encounter [facility] [place] Date(s): 07/01/20 - 07/01/[address] [address]- Encounter Diagnosis Psoriasis(Final) - 07/01/20 Discharge Disposition: A-D/C Home Attending Physician: Yazan Nichole DO Admitting Physician: Yazan Nichole DO Referring Physician: Not on Staff, Referring [...] 01/30/11 Gi lizbeth 1Admin Note: ADMIN BY [facility] 2Admin Note: FLUVIRIN MULTIDOSE ADMINISTERED AT [facility] Medications Cavilon Emollient topical cream 1 application, Topically, 2 times a day, PRN for dry skin, # 454 Gm, 1 Refills, Maintenance, 09/30/19 16:26:00 EDT, Cream, [facility], 1 application Topically 2 times a day,PRN:for dry skin, 158, cm, 08/27/19 13:02:00 EDT, Height, 76, kg... Start Date: 09/30/19 Status: Ordered cetirizine 10 mg oral tablet 1 tablet = 10 mg, By Mouth, Daily, for allergies. Do NOT take with claritin, # 30 tablet, 0 Refills, Maintenance, 04/27/20 14:41:00 EST, Tablet, [facility] 3, Partial fill upon patient request if the prescription is for a schedule II opioi... Start Date: 04/27/20 Stop Date: 05/27/20 Status: Ordered Claritin 10 mg oral tablet 10 mg, 1, tablet, By Mouth, Daily, # 15 tablet, Refills 3, Tot. Refills 3, Maintenance, 11/06/18 8:33:38 EDT, Route to Pharmacy Electronically, [id number], [facility] Start Date: 11/06/18 Status: Ordered Dovonex 0.005% topical cream 1 applicator, Topically, 2 times a day, # 60 Gm, 5 Refills, Maintenance, 07/07/19 17:30:00 EDT, [facility] 3, 1 applicator Topically 2 times a [...] EST, Tablet Start Date: 05/10/18 Status: Ordered fluticasone 50 mcg/inh nasal spray 1 sprays, Nares, Both, 2 times a day, in each nostril. for allergies, # 16 Gm, 0 Refills, Maintenance, 04/27/20 14:35:00 EST, [place], [facility], Partial fill upon patient request if theprescription is for a schedule II opioid drug., 1... Start Date: 04/27/20 Stop Date: 05/27/20 Status: Ordered hydrocortisone 1% topical cream 1 application, Topically, 2 times a day, Apply to rash areas, # 60 Gm, 3 Refills, Maintenance, 06/04/19 14:52:00 EDT, Cream, [facility], 1 application Topically 2 times [...] FOR ANXIETY FOR 28 DAYS Can fill 01/12/20, # 42 tablet, 0 Refills, Soft Stop, 05/31/20 15:38:00 EDT, [facility]/pharmacy #[id number], 158, cm, 05/27/20... Start Date: 05/31/20 Status: Ordered Medrol Dosepak 4 mg oral tablet per label intructions, By Mouth, Once, as on label, # 1 each, 0 Refills, Soft Stop, 08/11/19 20:08:00 EDT, [facility], 158, cm, 12/24/18 10:25:00 EDT, [...] Topically 3x per week, # 120 mL, 10 Refills, Soft Stop, 05/13/20 11:05:00 EST, [facility] 3, 1 applicator Topically 3x per week, 158, cm, 05/10/20 11:36:00 EST, Height, 76, kg, 04/12/19 15:31:00 EST, Dry Weight Start Date: 05/13/20 Status: Ordered oxyCODONE 5 mg oral tablet 5 mg, 1, tablet, By Mouth, Every 6 hours, PRN, # 4 tablet, Refills 0, Tot. Refills 0, Maintenance, Pain , Severe, 06/26/20 10:50:00 EDT, Route to Pharmacy Electronically, [facility] 3, Partial fill upon patient request if the prescription... Start Date: 06/26/20 Status: Ordered permethrin 5% topical cream 1 application, Topically, Once, to skin head to feet, remove by washing after 8 to 14 hours, # 60 Gm, 0 Refills, Soft Stop, 08/08/18 15:08:37 EDT, Cream Start Date: 08/08/18 Status: Ordered predniSONE 20 mg oral tablet 2 tablet = 40 mg, By Mouth, Daily, # 10 tablet, 0 Refills, Maintenance, 07/01/20 15:29:00 EDT, Tablet, [facility] 3, Partial fill upon patient request if the prescription is for a schedule II opioid drug., 158, cm, 06/23/20 13:26:00 EDT, H... Start Date: 07/01/20 Stop Date: 07/06/20 Status: Ordered predniSONE 5 mg oral tablet See Instructions, 3 tablet by mouth daily for 3 days, 2 tablets by mouth for 4 days, 1 tablet by mouth for 5 days, # 22 capsule, 0 Refills, Maintenance, 06/26/20 10:47:00 EDT, Tablet, [facility], Partial fill upon patient request if the... Start Date: 06/26/20 Status: Ordered predniSONE 5 mg oral tablet See Instructions, 2 tablets daily for 5 days then 1 daily for 5 days then stop, # 15 tablet, 0 Refills, Maintenance, 06/23/20 13:21:00 EDT, [facility]/pharmacy #[id number], Partial fill upon patient request if the prescription is for a schedule II opioid drug., 15... Start Date: 06/23/20 Status: Ordered selenium sulfide 2.5% topical lotion See Instructions, APPLY TOPICALLY TO AFFECTED AREA EVERY DAY FOR 7 DAYS, # 120 mL, 3 Refills, Maintenance, [facility], , APPLY TOPICALLY TO AFFECTED AREA EVERY DAY FOR 7 DAYS, 158, cm, 05/10/20 11:36:00 EST, Height, 76, kg, 04/12/19 15:31:00 E... Start Date: 05/21/20 Status: Ordered selenium sulfide 2.5% topical lotion See Instructions, APPLY TOPICALLY TO AFFECTED AREA EVERY DAY FOR 7 DAYS, # 120 mL, 3 Refills, Maintenance, [facility], 7, APPLY TOPICALLY TO AFFECTED AREA EVERY DAY FOR 7 DAYS, 158, cm, 08/27/19 13:02:00 EDT, Height, 76, kg, 04/12/19 15:31:00 E... Start Date: 03/01/20 Status: Ordered Shingrix intramuscular injection = 0.5 mL, Intramuscular, Once, repeat dose in 2 to 6 months, # 2 each, 0 Refills, Soft Stop, 05/27/20 11:03:00 EDT, [place], [facility], Partial fill upon patient request [...] 1 Refills, Maintenance, 03/10/20 18:21:00 EST, Cream, [facility], Partial fill upon patient request if the prescription is fora schedule II opioid drug., 1 application Topically... Start Date: 03/10/20 Status: Ordered Ultravate 0.05% ointment 1 application, [...] 0 Refills, Maintenance, 04/06/19 20:19:00 EST, Tablet, [facility], 158, cm, 12/24/18 10:25:00 EDT, Height, 75.5, kg, 04/06/19 17:01:00 EST, Dry Weight Start Date: 04/06/19 Stop Date: 04/13/19 Status: Ordered Problem List Condition Effective Dates Status Health Status Inform ant Opioid type dependence, continuous(Confirmed) 1 Active 1Client had been seen by Jazz Francois at [facility]. Client has no-showed to last appt and today.She will be targetted for closing if she does not responde to correspondence that will be sent on 02/14/13 Results Radiology Reports * Exam Date Time Procedure Performing Provider Status 07/01/20 12:07 PM Chest 2 Views Frontal and Lat Bhargavi Elizondo; Auth (Verified) Notes: (Chest 2 Views Frontal and Lat) Reason For Exam: Chest Pain;Other: RESULT: Chest 2 Views Frontal and Lat Chest 2 Views Frontal and Lat Hx of Present Illness: rash x 2 wks; Reason: Other:; Chest Pain; Clinical Question(s): Other: COMPARISON: 04/28/2012 FINDINGS: LINES AND TUBES: None. LUNGS AND PLEURA: Clear lungs. Normal pulmonary vascularity. No pleural effusion. No pneumothorax. HEART, MEDIASTINUM AND CECILIA: Unchanged. BONES AND SOFT TISSUES: No acute abnormality. IMPRESSION: No acute abnormality. WSN: [id number] Ordering Physician: Brittney Hendrix Dictated By: Ac Garica MD Dictated Date/Time: 07/01/20 12:12 p Reviewed By: Ac Garcia MD Signed By: Ac Garcia MD Signed Date/Time: 07/01/20 12:12 pm Transcribed By: MIRNA Transcribed Date/Time: 07/01/20 12:08 pm Vital Signs Most recent to oldest [Reference Range]: 1 2 3 Weight 91 kg (07/01/20 1:48 PM) 91 kg (07/01/20 11:44 AM) Oxygen Saturation [94-100 %] 98 % (07/01/20 1:48 PM) 99 % (07/01/20 11:44 AM) 100 % (07/01/20 11:19 AM) Pulse Rate [55-90 bpm] 85 bpm (07/01/20 1:48 PM) 75 bpm (07/01/20 11:44 AM) 84 bpm (07/01/20 11:19 AM) Blood Pressure [90-138/55-84 mm Hg] 139/83mm Hg *H* (07/01/20 1:48 PM) 132/76mm Hg (07/01/20 11:44 AM) Respiratory Rate [16-30 br/min] 16 br/min (07/01/20 1:48 PM) 17 br/min (07/01/20 11:44 AM) Temperature [96.8-100.4 DegF] 98.0 DegF (07/01/20 1:48 PM) 98.7 DegF (07/01/20 11:44 AM) Mode of Delivery (Oxygen) Room air (07/01/20 1:48 PM) Room air (07/01/20 11:44 AM) Blood pressure sites Arm, left (07/01/20 1:48 PM) Temperature Route Oral (07/01/20 1:48 PM) Oral (07/01/20 11:44 AM) Dry Weight 91 kg (07/01/20 1:48 PM) 91 kg (07/01/20 11:44 AM) Social History Social History Type Response Tobacco Use: 4 or less cigar ettes(less than 1/4 pack)/day in last 30 days. Sex
--- OUTSIDE RECORDS SUMMARY | 2022-11-03 10:36 | XMS_ITS | Continuity of Care Document ---
Author Name Unknown Organization [facility] Address Unknown Care Team Providers Care Service Order Dispatcher Name Role Phone Ilya De Leon MD Primary Care Physician [place] [facility] [place]25[place]21 - 06/24/21 [facility] Allergies, Adverse Reactions, Alerts Substance Reaction [...] FLUVIRIN MULTIDOSE ADMINISTERED AT [facility] Medications capsaicin 0.025% topical cream See Instructions, APPLY TO AFFECTED AREA TWICE A DAY, # 60 Gm, 1 Refills, [id number], 30, APPLY TO AFFECTED AREA TWICE A DAY, 155, cm, 05/30/21 15:34:00 EDT, Height, 95.9, kg, 12/05/20 10:08:00 EDT, Dry Weight Start Date: 05/31/21 Status: Ordered Cavilon Emollient topical cream 1 application, Topically, 2 times a day, PRN for dry skin, # 454 Gm, 1 Refills, Maintenance, 09/30/19 16:26:00 EDT, Cream, [facility], 1 application Topically 2 times a day,PRN:for dry skin, 158, cm, 08/27/19 13:02:00 EDT, Height, 76, kg... Start Date: 09/30/19 Status: Ordered clonazePAM 0.5 mg oral tablet 1 tablet = 0.5 mg, By Mouth, Daily, mAY FILL 06/21/21, # 14 tablet, 0 Refills, Maintenance, 06/21/2215:00:00 EDT, Tablet, [facility]/pharmacy #[id number], RADIOLOGY ASSISTANT reviewed, covering for Dr. De eLon, 155, cm, 05/30/2214:34:00 EDT, Height, 95.9, kg, 12/05/20 10:08:00 E... Start Date: 06/20/21 Stop Date: 07/04/21 Status: Ordered Dovonex 0.005% topical cream 1 applicator, Topically, 2 times a day, # 60 Gm, 5 Refills, Maintenance, 07/07/19 17:30:00 EDT, [facility], 1 applicator Topically 2 times a day,x30 days, 158, cm, 12/24/18 10:25:00 EDT, Height, 76, kg, 04/12/19 15:31:00 EST, Dry Weight Start Date: 07/07/19 Stop Date: 01/03/20 Status: Ordered fluticasone 50 mcg/inh nasal spray 1 sprays, Nares, Both, 2 times a day, in each nostril. for allergies, # 16 Gm, 0 Refills, Maintenance, 04/27/20 14:35:00 EST, [place], [facility], Partial fill upon patient request if theprescription is for a schedule II opioid drug., 1... Start Date: 04/27/20 Stop Date: 05/27/20 Status: Ordered furosemide 20 mg oral tablet 1, tablet, By Mouth, Daily, # 30 tablet, Refills 3, Tot. Refills 3, Maintenance, 04/18/21 12:11:00 EST, Route to Pharmacy Electronically, [facility]/pharmacy #[id number], 155, cm, 04/18/21 10:12:00 EST, Height, 95.9, kg, 12/05/20 10:08:00 EDT, Dry Weight Start Date: 04/18/21 Status: Ordered halobetasol 0.05% topical ointment See Instructions, APPLY A THIN FILM TO THE AFFECTED SKIN AND RUB IN GENTLY AND COMPLETELY TWICE A DAY, # 50 Gm, 1 Refills, [id number], 30, APPLY A THIN FILM TO THE AFFECTED SKIN AND RUB IN GENTLY AND COMPLETELY TWICE A DAY, 155, cm, 12/05/20 10:0... Start Date: 03/15/21 Status: Ordered hydrocortisone 1% topical cream 1 application, Topically, 2 times a day, # 30 Gm, 0 Refills, Maintenance, 06/17/21 11:42:00 EDT, Cream, [facility], Partial fill upon patient request if the prescription is for a schedule II opioid drug., 1 application Topically 2 times... Start Date: 06/17/21 Status: Ordered ketoconazole 2% topical shampoo See Instructions, APPLY 1 APPLICATOR TOPICALLY 3X PER WEEK, # 120 mL, 3 Refills, [id number], 30, APPLY 1 APPLICATOR TOPICALLY 3X PER WEEK, 155, cm, 03/17/21 7:53:00 EST, Height, 95.9, kg, 12/05/20 10:08:00 EDT, Dry Weight Start Date: 03/21/21 Status: Ordered loratadine 10 mg oral tablet 1, tablet, By Mouth, Daily, # 15 tablet, Refills 3, Route to Pharmacy Electronically, [id number], 155, cm, 05/30/21 15:34:00 EDT, Height, 95.9, kg, 12/05/20 10:08:00 EDT, Dry Weight Start Date: 06/21/21 Status: Ordered Methadone By Mouth, 0 Refills, Maintenance Start Date: 12/25/11 Status: Ordered mupirocin 2% topical cream 1 application, Topically, 3 times a day, # 30 Gm, 2 Refills, Maintenance, 03/08/21 10:26:00 EST, Cream, [facility]/pharmacy #[id number], Partial fill upon patient [...] 07/27/20 11:50:00 EDT, Cream, [facility], 1 applicationTopically Once,Instr:to skin head to feet, remove b... Start Date: 07/27/20 Status: Ordered predniSONE 10 mg oral tablet 1 tablet, By Mouth, Daily, for 7 days, May fill on 06/28 and will be sent to [facility], # 7 tablet, 0 Refills, Physician Stop 06/29/21 14:14:00 EDT, 06/22/21 14:14:00 EDT, [facility], 155, cm, 05/30/21 15:34:00 EDT, Height, 95... Start Date: 06/22/21 Stop Date: 06/29/21 Status: Ordered selenium sulfide 2.5% topical lotion See Instructions, APPLY TOPICALLY TO AFFECTED AREA EVERY DAY FOR 7 DAYS, # 120 mL, 3 Refills, Soft Stop, 04/26/21 18:07:00 EST, [facility]/pharmacy #[id number], 7, APPLY TOPICALLY TO AFFECTED AREA EVERY DAY FOR 7DAYS, 155, cm, 04/18/21 10:12:00 EST, Height, 95.9,... Start Date: 04/26/21 Status: Ordered tiZANidine 2 mg oral tablet 1, tablet, By Mouth, 3 times a day, # 60 tablet, Refills 0, Route to Pharmacy Electronically, [id number], 155, cm, 05/03/21 14:39:00 EST, Height, 95.9, kg, 12/05/20 10:08:00 EDT, Dry Weight Start Date: 05/09/21 Status: Ordered Problem List Condition Effective Dates Status Health Status Inform ant Anxiety(Confirmed) Active Opioid type dependence, continuous(Confirmed) 1 Active Osteoarthritis of left knee(Confirmed) Active Psoriasis(Confirmed) Active Severe obesity(Confirmed) Active 1Client had been seen by Jazz Francois at [facility]. Client has no-showed to last appt and today.She will be targetted for closing if she does not responde to correspondence that will be sent on 02/14/13 Social History Social History Type Response Smoking Status 10 or more cigarette s (1/2 pack or more)/day in last 30 days entered on: 04/18/21 Sex
--- OUTSIDE RECORDS SUMMARY | 2022-11-03 10:36 | XMS_ITS | Continuity of Care Document ---
Author Name Unknown Organization [facility] Address Unknown Care Team Providers Care Reservationist Name Role Phone Ilya De Leon MD Primary Care Physician Encounter [facility] [place] Date(s): 10/15/20 - 12/26/20 [facility] Attending Physician: Ilya De Leon MD Admitting Physician: Ilya De Leon MD Allergies, Adverse Reactions, Alerts Substance Reaction Severity Status penicillin Rash Active Toradol Rash Active Motrin tight throat Rash Active trimethoprim-sulfamethoxazole DS 1 Throa t Hives 17-MAY-2013 07:29:57<$> Unknown Active Imitrex Chest pain Active aspirin Ibuprofen tight throat Rash Active morphine HAND SWELLING Active Compazine throat swells Active Reglan Agitated [...] MULTIDOSE ADMINISTERED AT [facility] Medications Cavilon Emollient topical cream 1 application, Topically, 2 times a day, PRN for dry skin, # 454 Gm, 1 Refills, Maintenance, 09/30/19 16:26:00 EDT, Cream, [facility], 1 application Topically 2 times a day,PRN:for dry skin, 158, cm, 08/27/19 13:02:00 EDT, Height, 76, kg... Start Date: 09/30/19 Status: Ordered cetirizine 10 mg oral tablet 1 tablet = 10 mg, By Mouth, Daily, # 30 tablet, 0 Refills, Maintenance, 12/03/20 13:44:00 EDT, Tablet, [id number] Partial fill upon patient request if the prescription is for a schedule II opioid drug., 158, cm, 12/03/20 13:27:00 EDT, Height,... Start Date: 12/03/20 Status: Ordered Claritin 10 mg oral tablet 10 mg, 1, tablet, By Mouth, Daily, # 15 tablet, Refills 3, Tot. Refills 3, Maintenance, 11/06/18 8:33:38 EDT, Route to Pharmacy Electronically, [id number], [facility] Start Date: 11/06/18 Status: Ordered clonazePAM 0.5 mg oral tablet 1 tablet = 0.5 mg, By Mouth, Daily, RN RECOVERY checked, # 28 tablet, 0 Refills, Maintenance, 12/24/20 11:42:00 EDT, Tablet, [id number] Partial fill upon patient request if the prescription is for aschedule II opioid drug., 155, cm, 12/05/20 10:08:0... Start Date: 12/24/20 Stop Date: 01/21/21 Status: Ordered diphenhydrAMINE 25 mg oral tablet 1 tablet = 25 mg, By Mouth, 3 times a day, PRN as needed for itching, Will cause drowsiness, # 30 tablet, 0 Refills, Maintenance, 07/16/20 15:11:00 EDT, Tablet, [facility], Partial fill upon patient request if the prescription is f... Start Date: 07/16/20 Status: Ordered Dovonex 0.005% topical cream 1 applicator, Topically, 2 times a day, # 60 Gm, 5 Refills, Maintenance, 07/07/19 17:30:00 EDT, [facility] 3, 1 applicator Topically 2 times [...] Gm, 0 Refills, Maintenance, 04/27/20 14:35:00 EST, [place], [facility], Partial fill upon patient request if theprescription is for a schedule II opioid drug., 1... Start Date: 04/27/20 Stop Date: 05/27/20 Status: Ordered furosemide 20 mg oral tablet 1, tablet, By Mouth, Daily, # 30 tablet, Refills 3, Tot. Refills 0, Maintenance, 10/21/20 11:22:00 EDT, Route to Pharmacy Electronically, [id number], 158, cm, 10/18/20 10:46:00 EDT, Height, 95.4, kg, 10/16/20 10:11:00 EDT, Dry Weight Start Date: 10/21/20 Status: Ordered halobetasol 0.05% topical ointment See Instructions, APPLY A THIN FILM TO THE AFFECTED SKIN AND RUB IN GENTLY AND COMPLETELY TWICE A DAY, # 50 Gm, 1 Refills, [id number], 30, APPLY A THIN FILM TO THE AFFECTED SKIN AND RUB IN GENTLY AND COMPLETELY TWICE A DAY, 158, cm, 10/18/20 10:4... Start Date: 12/02/20 Status: Ordered hydrocortisone 1% topical cream 1 application, Topically, 2 times a day, Apply to rash areas, # 60 Gm, 3 Refills, Maintenance, 06/04/19 14:52:00 EDT, Cream, [facility], 1 application Topically 2 times a day,Instr:Apply to rash areas, 158, cm, 12/24/18 10:25:00 EDT, Hei... Start Date: 06/04/19 Status: Ordered ketoconazole 2% topical shampoo See Instructions, APPLY 1 APPLICATOR TOPICALLY 3X PER WEEK, # 120 mL, 3 Refills, [id number], 30, APPLY 1 APPLICATOR TOPICALLY 3X PER [...] 2 Refills, Maintenance, 12/17/20 15:28:00 EDT, Cream, [facility]/pharmacy #[id number], Partial fill upon patient request if the prescription is for a schedule II opioid drug., 1 application Topically 3 times a day,... Start Date: 12/17/20 Status: Ordered Marathon 0.65% nasal spray 2 sprays, Nares, Both, 4 times a day, # 1 each, 0 Refills, Maintenance, 12/03/20 13:46:00 EDT, [facility]/pharmacy #[id number], [...] Refills, Soft Stop, 07/27/20 11:50:00 EDT, Cream, [facility], 1 applicationTopically Once,Instr:to skin head to feet, remove b... Start Date: 07/27/20 Status: Ordered predniSONE 5 mg oral tablet 1 tablet = 5 mg, By Mouth, 3 times a day, may fill 12/17/20 for 14 days, # 42 tablet, 0 Refills, Maintenance, 12/17/20 15:28:00 EDT, Tablet, [facility]/pharmacy #[id number], Partial fill upon patient request if the prescription is for a schedule II opioid drug., 15... Start Date: 12/17/20 Stop Date: 12/31/20 Status: Ordered selenium sulfide 2.5% topical lotion See Instructions, APPLY TOPICALLY TO AFFECTED AREA EVERY DAY FOR 7 DAYS, # 120 mL, 3 Refills, Soft Stop, 07/23/20 11:40:00 EDT, [facility], 7, APPLY TOPICALLY TO AFFECTED AREA EVERY DAY FOR 7 DAYS, 158, cm, 07/23/20 11:13:00 EDT, H... Start Date: 07/23/20 Status: Ordered Shingrix intramuscular injection = 0.5 mL, Intramuscular, Once, repeat dose in 2 to 6 months, # 2 each, 0 Refills, Soft Stop, 05/27/20 11:03:00 EDT, Powder, [facility], Partial fill upon patient request if [...] 1 Refills, Maintenance, 03/10/20 18:21:00 EST, [facility] [...] seen by Jazz Francois at [facility]. Client has no-showed to last appt and today.She will be targetted for closing if she does not responde to correspondence that will be sent on 02/14/13 Social History Social History Type Response Smoking Status 5-9 cigarettes (betw een 1/4 to 1/2 pack)/day in last 30 days entered on: 09/08/20 Sex
--- OUTSIDE RECORDS SUMMARY | 2022-11-03 10:36 | XMS_ITS | Continuity of Care Document ---
Author Name Unknown Organization [facility] Address [address] [place] [address]- Care Team Providers Care Bath House Attendant Name Role Phone Ilya De Leon MD Primary Care Physician [place] [facility] [place] [facility]/[address] [address]- [place] Allergies, Adverse Reactions, Alerts Substance Reaction [...] 02/06/10 Garrett rded 1Admin Note: ADMIN BY [facility] 2Admin Note: FLUVIRIN MULTIDOSE ADMINISTERED AT [facility] Medications acetaminophen 650 mg oral tablet, extended release 2 tablet = 1,300 mg, By Mouth, Every 8 hours, # 100 tablet, 1 Refills, Maintenance, 06/29/21 15:10:00 EDT, ER Tablet, [id number], Partial fill upon patient request if the prescription is for a schedule II opioid drug., 155, cm, 05/30/21 15:34:... Start Date: 06/29/21 Status: Ordered capsaicin 0.025% topical cream See Instructions, APPLY TO AFFECTED AREA TWICE A DAY, # 60 Gm, 1 Refills, [id number], 30, APPLY TO AFFECTED AREA TWICE A DAY, 155, cm, 05/30/21 15:34:00 EDT, Height, 95.9, kg, 12/05/20 10:08:00 EDT, Dry Weight Start Date: 05/31/21 Status: Ordered Cavilon Emollient topical cream 1 application, Topically, 2 times a day, PRN for dry skin, # 454 Gm, 1 Refills, Maintenance, 09/30/19 16:26:00 EDT, Cream, [facility], 1 application Topically 2 times a day,PRN:for dry skin, 158, cm, 08/27/19 13:02:00 EDT, Height, 76, kg... Start Date: 09/30/19 Status: Ordered clonazePAM 0.5 mg oral tablet 1 tablet = 0.5 mg, By Mouth, Daily at bedtime, May fill 06/16/22 and weekly on Fridays for 3 weeks, #7 tablet, 2 Refills, Maintenance, 07/04/22 13:28:00 EDT, Tablet, [facility], [facility] reviewed, covering for Dr. De Leon, 155, cm, 01/23... Start Date: 07/04/22 Stop Date: 07/25/22 Status: Ordered clonazePAM 0.5 mg oral tablet 1 tablet = 0.5 mg, By Mouth, Daily at bedtime, May fill 05/26/22 and weekly on Fridays for 3 weeks, # 7 tablet, 2 Refills, Maintenance, 05/24/22 10:44:00 EDT, Tablet, [facility], SPACE SCHED[employer] reviewed, covering for Dr. De Leon, 155, cm, 01/10... Start Date: 05/24/22 Stop Date: 06/14/22 Status: Ordered clonazePAM 0.5 mg oral tablet 1 tablet = 0.5 mg, By Mouth, Daily at bedtime, May fill 04/14/22 and weekly on Fridays for3 weeks, # 7 tablet, 2 Refills, Maintenance, 04/13/22 10:13:00 EST, Tablet, [facility], PMPreviewed, covering for Dr. De Leon, 155, cm, ... Start Date: 04/13/22 Stop Date: 05/04/22 Status: Ordered coal tar topical 1% lotion See Instructions, applyTopically Daily at bedtime, # 120 mL, 3 Refills, Maintenance, 10/26/21 15:45:00 EDT, [facility], Partial fill upon patient request if the prescription is for a schedule II opioid drug., applyTopically Daily a... Start Date: 10/26/21 Status: Ordered Dovonex 0.005% topical cream 1 applicator, Topically, 2 times a day, # 60 Gm, 5 Refills, Maintenance, 05/24/22 12:41:00 EDT, [facility], 1 applicator Topically 2 times a day,x30 days, 155, cm, 01/23/22 14:00:00 EST, Height, 106.5, kg, 09/14/21 9:38:00 EDT, Dry... Start Date: 05/24/22 Stop Date: 11/20/22 Status: Ordered Eucerin Unscented topical lotion See Instructions, apply as frequently as needed, # 1 each, 0 Refills, Maintenance, 09/28/21 12:23:00 EDT, [facility], Partial fill upon patient request if the prescription is for a schedule II opioid drug., apply as frequently as n... Start Date: 09/28/21 Status: Ordered fluticasone 50 mcg/inh nasal spray 1 sprays, Nares, Both, 2 times a day, in each nostril. for allergies, # 16 Gm, 0 Refills, Maintenance, 04/27/20 14:35:00 EST, [place], [facility] 3, Partial fill upon patient request if theprescription is for a schedule II opioid drug., 1... Start Date: 04/27/20 Stop Date: 05/27/20 Status: Ordered halobetasol 0.05% topical ointment See Instructions, APPLY A THIN FILM TO THE AFFECTED SKIN AND RUB IN GENTLY AND COMPLETELY TWICE A DAY, # 50 Gm, 1 Refills, Maintenance, 10/26/21 15:44:00 EDT, [facility], 30, APPLY A THIN FILM TO THE AFFECTED SKIN AND RUB IN GENTLY... Start Date: 10/26/21 Status: Ordered ketoconazole 2% topical shampoo See Instructions, APPLY 1 APPLICATOR TOPICALLY 3X PER WEEK, # 120 mL, 3 Refills, Maintenance, 05/16/22 8:48:00 EST, [id number], 30, APPLY 1 APPLICATOR TOPICALLY 3X PER WEEK, 155, cm, 01/23/22 14:00:00 EST, Height, 106.5, kg, 09/14/21 9:38:00 EDT,... Start Date: 05/16/22 Status: Ordered loratadine 10 mg oral tablet 1, tablet, By Mouth, Daily, # 30 tablet, Refills 5, Tot. Refills 5, Maintenance, 07/04/22 8:39:00 EDT, [id number] 155, cm, 01/23/22 14:00:00 EST, Height, 106.5, kg, 09/14/21 9:38:00 EDT, Dry Weight Start Date: 07/04/22 Status: Ordered Methadone By Mouth, 0 Refills, Maintenance Start Date: 12/25/11 Status: Ordered mupirocin 2% topical cream 1 application, Topically, 3 times a day, # 30 Gm, 2 Refills, Maintenance, 03/08/21 10:26:00 EST, Cream, [id number] Partial fill upon patient request if the prescription is for a schedule II opioid drug., 1 application Topically 3 times a day,... Start Date: 03/08/21 Status: Ordered permethrin 5% topical cream 1 application, Topically, Once, to skin head to feet, remove by washing after 8 to 14 hours, # 60 Gm, 0 Refills, Soft Stop, 07/27/20 11:50:00 EDT, Cream, [facility], 1 applicationTopically Once,Instr:to skin head to feet, remove b... Start Date: 07/27/20 Status: Ordered predniSONE 10 mg oral tablet See Instructions, May fill 06/16/22 and weekly on Fridays for 3 weeks, # 14 tablet, 2 Refills, 07/04/22 13:28:00 EDT, [facility], 155, cm, 01/23/22 14:00:00 EST, Height, 106.5, kg, 09/14/21 9:38:00 EDT, Dry Weight Start Date: 07/04/22 Status: Ordered predniSONE 10 mg oral tablet See Instructions, May fill 05/26/22 and weekly on Fridays for 3 weeks, # 14 tablet, 2 Refills, 05/24/22 10:44:00 EDT, [facility], 155, cm, 01/23/22 14:00:00 EST, Height, 106.5, kg,09/14/21 9:38:00 EDT, Dry Weight Start Date: 05/24/22 Status: Ordered predniSONE 10 mg oral tablet See Instructions, May fill and weekly on Fridays for 3 weeks, # 14 tablet, 2 Refills, 04/13/22 10:13:00 EST, [facility], 155, cm, 01/23/22 14:00:00 EST, Height, 106.5, kg,09/14/21 9:38:00 EDT, Dry Weight Start Date: 04/13/22 Status: Ordered selenium sulfide 2.5% topical lotion See Instructions, APPLY TOPICALLY TO AFFECTED AREA EVERY DAY FOR 7 DAYS, # 120 mL, 3 Refills, Soft Stop, 10/26/21 15:43:00 EDT, [facility], 7, APPLY TOPICALLY TO AFFECTED AREA EVERY DAY FOR 7 DAYS, 155, cm, 09/28/21 12:06:00 EDT, H... Start Date: 10/26/21 Status: Ordered tiZANidine 2 mg oral tablet 1, tablet, By Mouth, 3 times a day, # 60 tablet, Refills 0, Route to Pharmacy Electronically, [id number], 155, cm, 05/03/21 14:39:00 EST, Height, 95.9, kg, 12/05/20 10:08:00 EDT, Dry Weight Start Date: 05/09/21 Status: Ordered traMADol 50 mg oral tablet 1 tablet = 50 mg, By Mouth, Every 8 hours, PRN Pain , Severe, for 7 days, May fill 06/16/22 and weekly on Fridays for 3 weeks, # 21 tablet, 2 Refills, Acute 07/25/22 13:28:00 EDT, 07/04/22 13:28:00 EDT, Tablet, [facility] [place], Partial f... Start Date: 07/04/22 Stop Date: 07/25/22 Status: Ordered Problem List Condition Confirmation Course Effective Dates Status H ealth Status Informant Anxiety Confirmed Active Opioid type dependence, continuous 1 Confirmed Active Osteoarthritis of left knee Confirmed Active Psoriasis Confirmed Active Severe obesity Confirmed Active 1Client had been seen by Jazz Francois at [facility]. Client has no-showed to last appt [...] Care Physician Member Role: PCP Address: Address: [address] [place] [id number]- Care Team Related Persons Name: JD ALVAREZ Address: home [address] [place] [id number]
--- OUTSIDE RECORDS SUMMARY | 2022-11-03 10:36 | XMS_ITS | Continuity of Care Document ---
Author Name Unknown Organization [facility] Address [address] [place] [address]- Care Team Providers Care Gunner'S Mate G Name Role Phone Ilya De Leon MD Primary Care Physician En[place] [facility] [place](s): 05/24/22 - 06/23/22 [facility]/[address] [address]- [place] Allergies, Adverse Reactions, Alerts Substance Reaction [...] 02/06/10 Garrett rded 1Admin Note: [facility]MIN BY [facility] 2Admin Note: FLUVIRIN MULTIDOSE ADMINISTERED AT [facility] Medications acetaminophen 650 mg oral tablet, extended release 2 tablet = 1,300 mg, By Mouth, Every 8 hours, # 100 tablet, 1 Refills, Maintenance, 06/29/21 15:10:00 EDT, ER Tablet, [id number], Partial fill upon patient request if the prescription is for a schedule II opioid drug., 155, cm, 05/30/21 15:34:... Start Date: 06/29/21 Status: Ordered capsaicin 0.025% topical cream See Instructions, APPLY TO AFFECTED AREA TWICE A DAY, # 60 Gm, 1 Refills, [id number], 30, APPLY TO AFFECTED AREA TWICE A DAY, 155, cm, 05/30/21 15:34:00 EDT, Height, 95.9, kg, 12/05/20 10:08:00 EDT, Dry Weight Start Date: 05/31/21 Status: Ordered Cavilon Emollient topical cream 1 application, Topically, 2 times a day, PRN for dry skin, # 454 Gm, 1 Refills, Maintenance, 09/30/19 16:26:00 EDT, Cream, [facility] 3, 1 application Topically 2 times a day,PRN:for dry skin, 158, cm, 08/27/19 13:02:00 EDT, Height, 76, kg... Start Date: 09/30/19 Status: Ordered clonazePAM 0.5 mg oral tablet 1 tablet = 0.5 mg, By Mouth, Daily at bedtime, May fill 06/16/22 and weekly on Fridays for 3 weeks, #7 tablet, 2 Refills, Maintenance, 06/14/22 11:37:00 EDT, Tablet, [facility], [facility] reviewed, covering for Dr. De Leon, 155, cm, 01/23... Start Date: 06/14/22 Stop Date: 07/05/22 Status: Ordered clonazePAM 0.5 mg oral tablet 1 tablet = 0.5 mg, By Mouth, Daily at bedtime, May fill 05/26/22 and weekly on Fridays for 3 weeks, # 7 tablet, 2 Refills, Maintenance, 05/24/22 10:44:00 EDT, Tablet, [facility], [employer] reviewed, covering for Dr. De Leon, 155, cm, 01/10... Start Date: 05/24/22 Stop Date: 06/14/22 Status: Ordered clonazePAM 0.5 mg oral tablet 1 tablet = 0.5 mg, By Mouth, Daily at bedtime, May fill 04/14/22 and weekly on Fridays for3 weeks, # 7 tablet, 2 Refills, Maintenance, 04/13/22 10:13:00 EST, Tablet, [facility], PMPreviewed, covering for Dr. De Leon, 155, cm, ... Start Date: 04/13/22 Stop Date: 05/04/22 Status: Ordered coal tar topical 1% lotion See Instructions, applyTopically Daily at bedtime, # 120 mL, 3 Refills, Maintenance, 10/26/21 15:45:00 EDT, [facility], Partial fill upon patient request if the prescription is for a schedule II opioid drug., applyTopically Daily a... Start Date: 10/26/21 Status: Ordered Dovonex 0.005% topical cream 1 applicator, Topically, 2 times a day, # 60 Gm, 5 Refills, Maintenance, 05/24/22 12:41:00 EDT, [facility], 1 applicator Topically 2 times a day,x30 days, 155, cm, 01/23/22 14:00:00 EST, Height, 106.5, kg, 09/14/21 9:38:00 EDT, Dry... Start Date: 05/24/22 Stop Date: 11/20/22 Status: Ordered Eucerin Unscented topical lotion See Instructions, apply as frequently as needed, # 1 each, 0 Refills, Maintenance, 09/28/21 12:23:00 EDT, [facility], Partial fill upon patient request if the prescription is for a schedule II opioid drug., apply as frequently as n... Start Date: 09/28/21 Status: Ordered fluticasone 50 mcg/inh nasal spray 1 sprays, Nares, Both, 2 times a day, in each nostril. for allergies, # 16 Gm, 0 Refills, Maintenance, 04/27/20 14:35:00 EST, [place], [facility] 3, Partial fill upon patient request if theprescription is for a schedule II opioid drug., 1... Start Date: 04/27/20 Stop Date: 05/27/20 Status: Ordered halobetasol 0.05% topical ointment See Instructions, APPLY A THIN FILM TO THE AFFECTED SKIN AND RUB IN GENTLY AND COMPLETELY TWICE A DAY, # 50 Gm, 1 Refills, Maintenance, 10/26/21 15:44:00 EDT, [facility], 30, APPLY A THIN FILM TO THE AFFECTED SKIN AND RUB IN GENTLY... Start Date: 10/26/21 Status: Ordered ketoconazole 2% topical shampoo See Instructions, APPLY 1 APPLICATOR TOPICALLY 3X PER WEEK, # 120 mL, 3 Refills, Maintenance, 05/16/22 8:48:00 EST, [id number], 30, APPLY 1 APPLICATOR TOPICALLY 3X PER WEEK, 155, cm, 01/23/22 14:00:00 EST, Height, 106.5, kg, 09/14/21 9:38:00 EDT,... Start Date: 05/16/22 Status: Ordered loratadine 10 mg oral tablet 1, tablet, By Mouth, Daily, # 90 tablet, Refills 1, Maintenance, 05/23/22 16:24:00 EDT, Route to Pharmacy Electronically, [id number], 155, cm, 01/23/22 14:00:00 EST, Height, 106.5, kg, 09/14/21 9:38:00 EDT, Dry Weight Start Date: 05/23/22 Status: Ordered Methadone By Mouth, 0 Refills, Maintenance Start Date: 12/25/11 Status: Ordered mupirocin 2% topical cream 1 application, Topically, 3 times a day, # 30 Gm, 2 Refills, Maintenance, 03/08/21 10:26:00 EST, Cream, [facility]/pharmacy #[id number], Partial fill upon patient request if the prescription is for a schedule II opioid drug., 1 application Topically 3 times a day,... Start Date: 03/08/21 Status: Ordered permethrin 5% topical cream 1 application, Topically, Once, to skin head to feet, remove by washing after 8 to 14 hours, # 60 Gm, 0 Refills, Soft Stop, 07/27/20 11:50:00 EDT, Cream, [facility], 1 applicationTopically Once,Instr:to skin head to feet, remove b... Start Date: 07/27/20 Status: Ordered predniSONE 10 mg oral tablet See Instructions, May fill 06/16/22 and weekly on Fridays for 3 weeks, # 14 tablet, 2 Refills, 06/14/22 11:37:00 EDT, [facility], 155, cm, 01/23/22 14:00:00 EST, Height, 106.5, kg, 09/14/21 9:38:00 EDT, Dry Weight Start Date: 06/14/22 Status: Ordered predniSONE 10 mg oral tablet See Instructions, May fill 05/26/22 and weekly on Fridays for 3 weeks, # 14 tablet, 2 Refills, 05/24/22 10:44:00 EDT, [facility], 155, cm, 01/23/22 14:00:00 EST, Height, 106.5, kg,09/14/21 9:38:00 EDT, Dry Weight Start Date: 05/24/22 Status: Ordered predniSONE 10 mg oral tablet See Instructions, May fill and weekly on Fridays for 3 weeks, # 14 tablet, 2 Refills, 04/13/22 10:13:00 EST, [facility], 155, cm, 01/23/22 14:00:00 EST, Height, 106.5, kg,09/14/21 9:38:00 EDT, Dry Weight Start Date: 04/13/22 Status: Ordered selenium sulfide 2.5% topical lotion See Instructions, APPLY TOPICALLY TO AFFECTED AREA EVERY DAY FOR 7 DAYS, # 120 mL, 3 Refills, Soft Stop, 10/26/21 15:43:00 EDT, [facility], 7, APPLY TOPICALLY TO AFFECTED AREA EVERY DAY FOR 7 DAYS, 155, cm, 09/28/21 12:06:00 EDT, H... Start Date: 10/26/21 Status: Ordered tiZANidine 2 mg oral tablet 1, tablet, By Mouth, 3 times a day, # 60 tablet, Refills 0, Route to Pharmacy Electronically, [id number], 155, cm, 05/03/21 14:39:00 EST, Height, 95.9, kg, 12/05/20 10:08:00 EDT, Dry Weight Start Date: 05/09/21 Status: Ordered traMADol 50 mg oral tablet 1 tablet = 50 mg, By Mouth, Every 8 hours, PRN Pain , Severe, for 7 days, May fill 06/16/22 and weekly on Fridays for 3 weeks, # 21 tablet, 2 Refills, Acute 07/05/22 11:37:00 EDT, 06/14/22 11:37:00 EDT, Tablet, [facility] [place], Partial f... Start Date: 06/14/22 Stop Date: 07/05/22 Status: Ordered Problem List Condition Confirmation Course Effective Dates Status H ealth Status Informant Anxiety Confirmed Active Opioid type dependence, continuous 1 Confirmed Active Osteoarthritis of left knee Confirmed Active Psoriasis Confirmed Active Severe obesity Confirmed Active 1Client had been seen by Jazz Francois at [facility]. Client has no-showed to last appt and today.She will be targetted for closing if she does not responde to correspondence that will be sent on 02/14/13 Social History Social History Type Response Smoking Status 10 or more cigarette s (1/2 pack or more)/day in last 30 days entered on: 04/18/21 Sex Patient Care team information Care Team Personnel Name: Iyla De Leon MD Position: [facility] Primary Care Physician Member Role: PCP Address: Address: [address] [place] [id number]- Care Team Related Persons Name: JD ALVAREZ Address: home [address] [place] [id number]
--- OUTSIDE RECORDS SUMMARY | 2022-11-03 10:36 | XMS_ITS | Continuity of Care Document ---
Author Name Unknown Organization [facility] Address [address] [place] [address]- Care Team Providers Care Varnish Mixer Name Role Phone Ilya De Leon MD Primary Care Physician Encounter [facility] [place] Date(s): 08/11/20 - 09/10/20 [facility]/[address] [address]- Allergies, Adverse Reactions, Alerts Substance Reaction Severity [...] 01/30/11 Gi lizbeth 1Admin Note: ADMIN BY [facility] 2Admin Note: FLUVIRIN MULTIDOSE ADMINISTERED AT [facility] Medications Cavilon Emollient topical cream 1 application, Topically, 2 times a day, PRN for dry skin, # 454 Gm, 1 Refills, Maintenance, 09/30/19 16:26:00 EDT, Cream, [facility], 1 application Topically 2 times a day,PRN:for dry skin, 158, cm, 08/27/19 13:02:00 EDT, Height, 76, kg... Start Date: 09/30/19 Status: Ordered cetirizine 10 mg oral tablet 1 tablet = 10 mg, By Mouth, Daily, for allergies. Do NOT take with claritin, # 30 tablet, 0 Refills, Maintenance, 07/23/20 11:37:00 EDT, Tablet, [facility], Partial fill upon patient request if the prescription is for a schedule II... Start Date: 07/23/20 Stop Date: 08/22/20 Status: Ordered Claritin 10 mg oral tablet 10 mg, 1, tablet, By Mouth, Daily, # 15 tablet, Refills 3, Tot. Refills 3, Maintenance, 11/06/18 8:33:38 EDT, Route to Pharmacy Electronically, [id number], [facility] Start Date: 11/06/18 Status: Ordered clonazePAM 0.5 mg oral tablet 1 tablet = 0.5 mg, By Mouth, Daily, # 28 tablet, 0 Refills, Maintenance, 08/26/20 14:39:00 EDT, Tablet, [facility], Partial fill upon patient request if the prescription is for a schedule II opioid drug., 158, cm, 08/26/20 14:27:00... Start Date: 08/26/20 Status: Ordered diphenhydrAMINE 25 mg oral tablet 1 tablet = 25 mg, By Mouth, 3 times a day, PRN as needed for itching, Will cause drowsiness, # 30 tablet, 0 Refills, Maintenance, 07/16/20 15:11:00 EDT, Tablet, [facility], Partial fill upon patient request if the prescription is f... Start Date: 07/16/20 Status: Ordered Dovonex 0.005% topical cream 1 applicator, Topically, 2 times a day, # 60 Gm, 5 Refills, Maintenance, 07/07/19 17:30:00 EDT, [facility] 3, 1 applicator Topically 2 times [...] Gm, 0 Refills, Maintenance, 04/27/20 14:35:00 EST, [place], [facility] 3, Partial fill upon patient request if theprescription is for a schedule II opioid drug., 1... Start Date: 04/27/20 Stop Date: 05/27/20 Status: Ordered furosemide 20 mg oral tablet 20 mg, 1, tablet, By Mouth, Daily, # 30 tablet, Refills 1, Tot. Refills 1, Maintenance, 08/27/20 16:12:00 EDT, Route to Pharmacy Electronically, [facility]/pharmacy #[id number], Partial fill upon patient request if the prescription is for a schedule II opioid drug... Start Date: 08/27/20 Status: Ordered halobetasol 0.05% topical cream 1 application, Topically, 2 times a day, # 50 Gm, 3 Refills, Maintenance, 08/02/20 12:54:00 EDT, Cream, [facility], Partial fill upon patient request if the prescription is for a schedule II opioid drug., 1 application Topically 2... Start Date: 08/02/20 Status: Ordered hydrocortisone 1% topical cream 1 application, Topically, 2 times a day, Apply to rash areas, # 60 Gm, 3 Refills, Maintenance, 06/04/19 14:52:00 EDT, Cream, [facility] 3, 1 application Topically 2 times a day,Instr:Apply to rash areas, 158, cm, 12/24/18 10:25:00 EDT, Hei... Start Date: 06/04/19 Status: Ordered left soft knee brace left soft knee brace, See Instructions, # 1 each, Refills 0, Tot. Refills 0, Maintenance, arthritis, 08/26/20 14:40:00 EDT, Supply Start Date: 08/26/20 Status: Ordered loratadine 10 mg oral tablet [...] 3 Refills, Soft Stop, 08/12/20 10:30:00 EDT, [facility]/pharmacy #[id number], 1 applicator Topically 3x per week, 158, cm, 07/23/20 11:13:00 EDT, Height, 82, kg, 07/21/20 20:18:00 EDT, Dry Weight Start Date: 08/12/20 Status: Ordered permethrin 5% topical cream 1 application, Topically, Once, to skin head to feet, remove by washing after 8 to 14 hours, # 60 Gm, 0 Refills, Soft Stop, 07/27/20 11:50:00 EDT, Cream, [facility], 1 applicationTopically Once,Instr:to skin head to feet, remove b... Start Date: 07/27/20 Status: Ordered predniSONE 10 mg oral tablet See Instructions, 1 tablet daily, # 7 tablet, 0 Refills, Maintenance, 09/07/20 15:41:00 EDT, [id number], Partial fill upon patient request if the prescription is for a schedule II opioid drug., 158, cm, 08/26/20 14:27:00 EDT, Height, 82, kg, 0... Start Date: 09/07/20 Status: Ordered selenium sulfide 2.5% topical lotion See Instructions, APPLY TOPICALLY TO AFFECTED AREA EVERY DAY FOR 7 DAYS, # 120 mL, 3 Refills, Soft Stop, 07/23/20 11:40:00 EDT, [facility], 7, APPLY TOPICALLY TO AFFECTED AREA EVERY DAY FOR 7 DAYS, 158, cm, 07/23/20 11:13:00 EDT, H... Start Date: 07/23/20 Status: Ordered Shingrix intramuscular injection = 0.5 mL, Intramuscular, Once, repeat dose in 2 to 6 months, # 2 each, 0 Refills, Soft Stop, 05/27/20 11:03:00 EDT, Powder, [facility], Partial fill upon patient request if [...] 1 Refills, Maintenance, 03/10/20 18:21:00 EST, Cream, [facility] 3, Partial fill upon patient request [...] day, # 100 Gm, 0 Refills, Maintenance, 07/23/20 11:37:00 EDT, Gel, [facility], 1 application Topically 4 times a day, 158, cm, 07/23/20 11:13:00 EDT, Height, 82, kg, 07/21/20 20:18:00 EDT, Dry We... Start Date: 07/23/20 Status: Ordered Problem List Condition Effective Dates Status Health Status Inform ant Opioid type dependence, continuous(Confirmed) 1 Active 1Client had been seen by Jazz Francois at [facility]. Client has no-showed to last appt and today.She will be targetted for closing if she does not responde to correspondence that will be sent on 02/14/13 Social History Social History Type Response Smoking Status 5-9 cigarettes (betw een 1/4 to 1/2 pack)/day in last 30 days entered on: 09/08/20 Sex
--- OUTSIDE RECORDS SUMMARY | 2022-11-03 10:36 | XMS_ITS | Continuity of Care Document ---
Author Name Unknown Organization [facility] Address [address] [place] [id number]- Care Team Providers Care Bookkeeper Receptionist Name Role Phone Haley NEWMAN, Ilya Primary Care Physician Encounter [facility] Date(s): 08/19/20 - 09/18/20 [facility]/[address] [address]- Allergies, Adverse Reactions, Alerts Substance Reaction Severity [...] FLUVIRIN MULTIDOSE ADMINISTERED AT [facility] Medications Cavilon Emollient topical cream 1 application, Topically, 2 times a day, PRN for dry skin, # 454 Gm, 1 Refills, Maintenance, 09/30/19 16:26:00 EDT, Cream, [facility], 1 application Topically 2 times a day,PRN:for dry skin, 158, cm, 08/27/19 13:02:00 EDT, Height, 76, kg... Start Date: 09/30/19 Status: Ordered cetirizine 10 mg oral tablet 1 tablet = 10 mg, By Mouth, Daily, for allergies. Do NOT take with claritin, # 30 tablet, 0 Refills, Maintenance, 07/23/20 11:37:00 EDT, Tablet, [facility], Partial fill upon patient request if the prescription is for a schedule II... Start Date: 07/23/20 Stop Date: 08/22/20 Status: Ordered Claritin 10 mg oral tablet 10 mg, 1, tablet, By Mouth, Daily, # 15 tablet, Refills 3, Tot. Refills 3, Maintenance, 11/06/18 8:33:38 EDT, Route to Pharmacy Electronically, [id number], [facility] Start Date: 11/06/18 Status: Ordered clonazePAM 0.5 mg oral tablet 1 tablet = 0.5 mg, By Mouth, Daily, # 28 tablet, 0 Refills, Maintenance, 08/26/20 14:39:00 EDT, Tablet, [facility], Partial fill upon patient request if the prescription is for a schedule II opioid drug., 158, cm, 08/26/20 14:27:00... Start Date: 08/26/20 Status: Ordered diphenhydrAMINE 25 mg oral tablet 1 tablet = 25 mg, By Mouth, 3 times a day, PRN as needed for itching, Will cause drowsiness, # 30 tablet, 0 Refills, Maintenance, 07/16/20 15:11:00 EDT, Tablet, [facility], Partial fill upon patient request if the prescription is f... Start Date: 07/16/20 Status: Ordered Dovonex 0.005% topical cream 1 applicator, Topically, 2 times a day, # 60 Gm, 5 Refills, Maintenance, 07/07/19 17:30:00 EDT, [facility] 3, 1 applicator Topically 2 [...] Gm, 0 Refills, Maintenance, 04/27/20 14:35:00 EST, [place], [facility] 3, Partial fill upon patient request if theprescription is for a schedule II opioid drug., 1... Start Date: 04/27/20 Stop Date: 05/27/20 Status: Ordered furosemide 20 mg oral tablet 20 mg, 1, tablet, By Mouth, Daily, # 30 tablet, Refills 1, Tot. Refills 1, Maintenance, 08/27/20 16:12:00 EDT, Route to Pharmacy Electronically, [facility]/pharmacy #[id number], Partial fill upon patient request if the prescription is for a schedule II opioid drug... Start Date: 08/27/20 Status: Ordered halobetasol 0.05% topical cream 1 application, Topically, 2 times a day, # 50 Gm, 3 Refills, Maintenance, 08/02/20 12:54:00 EDT, Cream, [facility], Partial fill upon patient request if the prescription is for a schedule II opioid drug., 1 application Topically 2... Start Date: 08/02/20 Status: Ordered hydrocortisone 1% topical cream 1 application, Topically, 2 times a day, Apply to rash areas, # 60 Gm, 3 Refills, Maintenance, 06/04/19 14:52:00 EDT, Cream, [facility] 3, 1 application Topically 2 times [...] 2 Refills, Maintenance, 09/14/20 17:22:00 EDT, Cream, [facility]/pharmacy #[id number], Partial fill upon patient request if the prescription is for a schedule II opioid drug., 1 application Topically 3 times a day,... Start Date: 09/14/20 Status: Ordered Nizoral 2% topical shampoo See Instructions, 1 applicator Topically 3x per week, # 120 mL, 3 Refills, Soft Stop, 08/12/20 10:30:00 EDT, [facility]/pharmacy #[id number], 1 applicator Topically 3x per week, 158, cm, 07/23/20 11:13:00 EDT, Height, 82, kg, 07/21/20 20:18:00 EDT, Dry Weight Start Date: 08/12/20 Status: Ordered permethrin 5% topical cream 1 application, Topically, Once, to skin head to feet, remove by washing after 8 to 14 hours, # 60 Gm, 0 Refills, Soft Stop, 07/27/20 11:50:00 EDT, Cream, [facility], 1 applicationTopically Once,Instr:to skin head to feet, remove b... Start Date: 07/27/20 Status: Ordered predniSONE 5 mg oral tablet 1 tablet = 5 mg, By Mouth, 3 times a day, # 30 tablet, 0 Refills, Maintenance, 09/14/20 17:20:00 EDT, Tablet, [facility]/pharmacy #[id number], Partial fill upon patient request if the prescription is for a schedule II opioid drug., 158, cm, 09/08/20 14:36:00 EDT,... Start Date: 09/14/20 Stop Date: 09/24/20 Status: Ordered selenium sulfide 2.5% topical lotion See Instructions, APPLY TOPICALLY TO AFFECTED AREA EVERY DAY FOR 7 DAYS, # 120 mL, 3 Refills, Soft Stop, 07/23/20 11:40:00 EDT, [facility], 7, APPLY TOPICALLY TO AFFECTED AREA EVERY DAY FOR 7 DAYS, 158, cm, 07/23/20 11:13:00 EDT, H... Start Date: 07/23/20 Status: Ordered Shingrix intramuscular injection = 0.5 mL, Intramuscular, Once, repeat dose in 2 to 6 months, # 2 each, 0 Refills, Soft Stop, 05/27/20 11:03:00 EDT, Powder, [facility], Partial fill upon patient request if the [...] 1 Refills, Maintenance, 03/10/20 18:21:00 EST, Cream, [facility] 3, Partial fill upon patient [...] 0 Refills, Maintenance, 07/23/20 11:37:00 EDT, Gel, [facility], 1 application Topically 4 times a day, [...]
--- OUTSIDE RECORDS SUMMARY | 2022-11-03 10:36 | XMS_ITS | Continuity of Care Document ---
Author Name Unknown Organization [facility] Address [address] [place] [address]- Care Team Providers Care Director Of Scout Work Name Role Phone Ilya De Leon MD Primary Care Physician Encounter [facility] Date(s): 09/20/20 - 10/21/20 [facility] [address] [place] [address]- Attending Physician: Angella Salamanca NP Admitting Physician: Angella Salamanca NP Allergies, Adverse Reactions, Alerts Substance Reaction Severity [...] FLUVIRIN MULTIDOSE ADMINISTERED AT [facility] Medications acetaminophen 500 mg oral tablet 2 tablet = 1,000 mg, By Mouth, 3 times a day, PRN as needed for fever, not to exceed 3000 mg/day take scheduled three times a day, # 100 tablet, 1 Refills, Acute 12/26/20 11:44:00 EDT, 09/24/20 11:43:00 EDT, Tablet, [facility]/pharmacy #[id number], Partial fill u... Start Date: 09/24/20 Stop Date: 12/26/20 Status: Ordered Cavilon Emollient topical cream 1 application, Topically, 2 times a day, PRN for dry skin, # 454 Gm, 1 Refills, Maintenance, 09/30/19 16:26:00 EDT, Cream, [facility] 3, 1 application Topically 2 times a day,PRN:for dry skin, 158, cm, 08/27/19 13:02:00 EDT, Height, 76, kg... Start Date: 09/30/19 Status: Ordered cetirizine 10 mg oral tablet 1 tablet = 10 mg, By Mouth, Daily, for allergies. Do NOT take with claritin, # 30 tablet, 0 Refills, Maintenance, 07/23/20 11:37:00 EDT, Tablet, [facility], Partial fill upon patient request if the prescription is for a schedule II... Start Date: 07/23/20 Stop Date: 08/22/20 Status: Ordered Claritin 10 mg oral tablet 10 mg, 1, tablet, By Mouth, Daily, # 15 tablet, Refills 3, Tot. Refills 3, Maintenance, 11/06/18 8:33:38 EDT, Route to Pharmacy Electronically, [id number], [facility] Start Date: 11/06/18 Status: Ordered clonazePAM 0.5 mg oral tablet 1 tablet = 0.5 mg, By Mouth, Daily, # 28 tablet, 0 Refills, Maintenance, 10/18/20 11:03:00 EDT, Tablet, [facility], Partial fill upon patient request if the prescription is for a schedule II opioid drug., 158, cm, 10/18/20 10:46:00... Start Date: 10/18/20 Status: Ordered clonazePAM 0.5 mg oral tablet 1 tablet = 0.5 mg, By Mouth, Daily, # 1 tablet, 0 Refills, Maintenance, 10/17/20 9:00:00 EDT, Tablet, [facility] 3, Partial fill upon patient request [...] 0 Refills, Maintenance, 07/16/20 15:11:00 EDT, Tablet, [facility], Partial fill upon patient request if the prescription is f... Start Date: 07/16/20 Status: Ordered Dovonex 0.005% topical cream 1 applicator, Topically, 2 times a day, # 60 Gm, 5 Refills, Maintenance, 07/07/19 17:30:00 EDT, [facility] 3, 1 applicator Topically 2 times [...] Gm, 0 Refills, Maintenance, 04/27/20 14:35:00 EST, [place], [facility] 3, Partial fill upon patient request if theprescription is for a schedule II opioid drug., 1... Start Date: 04/27/20 Stop Date: 05/27/20 Status: Ordered furosemide 20 mg oral tablet 1, tablet, By Mouth, Daily, # 30 tablet, Refills 3, Tot. Refills 0, Maintenance, 10/21/20 11:22:00 EDT, Route to Pharmacy Electronically, [facility] STORE [id number], 158, cm, 10/18/20 10:46:00 EDT, Height, 95.4, kg, 10/16/20 10:11:00 EDT, Dry Weight Start Date: 10/21/20 Status: Ordered hydrocortisone 1% topical cream 1 application, Topically, 2 times a day, Apply to rash areas, # 60 Gm, 3 Refills, Maintenance, 06/04/19 14:52:00 EDT, Cream, [facility], 1 application Topically 2 [...] 11:39:00 EDT, 09/24/20 11:38:00 EDT, Ointment, [facility]/pharmacy #[id number], Partial fill upon patient request [...] Refills, Soft Stop, 07/27/20 11:50:00 EDT, Cream, [facility], 1 applicationTopically Once,Instr:to skin head to feet, remove b... Start Date: 07/27/20 Status: Ordered predniSONE 5 mg oral tablet 1 tablet = 5 mg, By Mouth, 3 times a day, # 42 tablet, 0 Refills, Maintenance, 10/18/20 11:06:00 EDT, Tablet, [facility], Partial fill upon patient request if the prescription is for a schedule II opioid drug., 158, cm, 10/18/20 10... Start Date: 10/18/20 Stop Date: 11/01/20 Status: Ordered selenium sulfide 2.5% topical lotion See Instructions, APPLY TOPICALLY TO AFFECTED AREA EVERY DAY FOR 7 DAYS, # 120 mL, 3 Refills, Soft Stop, 07/23/20 11:40:00 EDT, [facility], 7, APPLY TOPICALLY TO AFFECTED AREA EVERY DAY FOR 7 DAYS, 158, cm, 07/23/20 11:13:00 EDT, H... Start Date: 07/23/20 Status: Ordered Shingrix intramuscular injection = 0.5 mL, Intramuscular, Once, repeat dose in 2 to 6 months, # 2 each, 0 Refills, Soft Stop, 05/27/20 11:03:00 EDT, Powder, [facility], Partial fill upon patient request if [...] EST, Cream, [facility], Partial fill upon patient [...] Refills, Maintenance, 09/24/20 11:47:00 EDT, Gel, [facility]/pharmacy #[id number], 1 application Topically 4 times a [...]
--- OUTSIDE RECORDS SUMMARY | 2022-11-03 10:36 | XMS_ITS | Continuity of Care Document ---
Author Name Unknown Organization [facility] Address [address] [place] [address]- Care Team Providers Care Gardener Florist Name Role Phone Haley NEWMAN, Ilya Primary Care Physician Encounter [facility] Date(s): 12/26/21 - 01/25/22 [facility]/[address] [address]- [place] Allergies, Adverse Reactions, Alerts Substance Reaction [...] 01/30/11 Gi lizbeth 1Admin Note: ADMIN BY [facility] 2Admin Note: FLUVIRIN MULTIDOSE ADMINISTERED AT [facility] Medications acetaminophen 650 mg oral tablet, extended release 2 tablet = 1,300 mg, By Mouth, Every 8 hours, # 100 tablet, 1 Refills, Maintenance, 06/29/21 15:10:00 EDT, ER Tablet, [id number], Partial fill upon patient request if the prescription is for a schedule II opioid drug., 155, cm, 05/30/21 15:34:... Start Date: 06/29/21 Status: Ordered capsaicin 0.025% topical cream See Instructions, APPLY TO AFFECTED AREA TWICE A DAY, # 60 Gm, 1 Refills, [id number], 30, APPLY TO AFFECTED AREA TWICE A DAY, 155, cm, 05/30/21 15:34:00 EDT, Height, 95.9, kg, 12/05/20 10:08:00 EDT, Dry Weight Start Date: 05/31/21 Status: Ordered Cavilon Emollient topical cream 1 application, Topically, 2 times a day, PRN for dry skin, # 454 Gm, 1 Refills, Maintenance, 09/30/19 16:26:00 EDT, Cream, [facility], 1 application Topically 2 times a day,PRN:for dry skin, 158, cm, 08/27/19 13:02:00 EDT, Height, 76, kg... Start Date: 09/30/19 Status: Ordered clonazePAM 0.5 mg oral tablet 1 tablet = 0.5 mg, By Mouth, Daily at bedtime, May fill 01/20/22 and weekly on Fridays for3 weeks, # 7 tablet, 2 Refills, Maintenance, 01/18/22 14:09:00 EST, Tablet, [facility], HEAD TRANSFER CLERK reviewed, covering for Dr. De Leon, 155, cm, 100... Start Date: 01/18/22 Stop Date: 02/08/22 Status: Ordered coal tar topical 1% lotion See Instructions, applyTopically Daily at bedtime, # 120 mL, 3 Refills, Maintenance, 10/26/21 15:45:00 EDT, [facility], Partial fill upon patient request if the prescription is for a schedule II opioid drug., applyTopically Daily a... Start Date: 10/26/21 Status: Ordered Dovonex 0.005% topical cream 1 applicator, Topically, 2 times a day, # 60 Gm, 5 Refills, Maintenance, 07/07/19 17:30:00 EDT, [facility], 1 applicator Topically 2 times a day,x30 days, 158, cm, 12/24/18 10:25:00 EDT, Height, 76, kg, 04/12/19 15:31:00 EST, Dry Weight Start Date: 07/07/19 Stop Date: 01/03/20 Status: Ordered Eucerin Unscented topical lotion See Instructions, apply as frequently as needed, # 1 each, 0 Refills, Maintenance, 09/28/21 12:23:00 EDT, [facility], Partial fill upon patient request if the prescription is for a schedule II opioid drug., apply as frequently as n... Start Date: 09/28/21 Status: Ordered fluticasone 50 mcg/inh nasal spray 1 sprays, Nares, Both, 2 times a day, in each nostril. for allergies, # 16 Gm, 0 Refills, Maintenance, 04/27/20 14:35:00 EST, [place], [facility] 3, Partial fill upon patient request if theprescription is for a schedule II opioid drug., 1... Start Date: 04/27/20 Stop Date: 05/27/20 Status: Ordered halobetasol 0.05% topical ointment See Instructions, APPLY A THIN FILM TO THE AFFECTED SKIN AND RUB IN GENTLY AND COMPLETELY TWICE A DAY, # 50 Gm, 1 Refills, Maintenance, 10/26/21 15:44:00 EDT, [facility], 30, APPLY A THIN FILM TO THE AFFECTED SKIN AND RUB IN GENTLY... Start Date: 10/26/21 Status: Ordered ketoconazole 2% topical shampoo See Instructions, APPLY 1 APPLICATOR TOPICALLY 3X PER WEEK, # 120 mL, 3 Refills, Maintenance, 12/27/21 19:30:00 EDT, [facility] [id number], 30, APPLY 1 APPLICATOR TOPICALLY 3X PER WEEK, 155, cm, 12/12/21 16:00:00 EDT, Height, 106.5, kg, 09/14/21 9:38:00 EDT... Start Date: 12/27/21 Status: Ordered loratadine 10 mg oral tablet 1, tablet, By Mouth, Daily, # 90 tablet, Refills 1, Tot. Refills 1, Maintenance, 11/01/21 15:19:00 EDT, Route to Pharmacy Electronically, [facility]/pharmacy #[id number], 155, cm, 09/28/21 12:06:00 EDT, Height, 106.5, kg, 09/14/21 9:38:00 EDT, Dry Weight Start Date: 11/01/21 Status: Ordered Methadone By Mouth, 0 Refills, Maintenance Start Date: 12/25/11 Status: Ordered mupirocin 2% topical cream 1 application, Topically, 3 times a day, # 30 Gm, 2 Refills, Maintenance, 03/08/21 10:26:00 EST, Cream, [facility]/pharmacy #[id number], Partial [...] Refills, Soft Stop, 07/27/20 11:50:00 EDT, Cream, [facility], 1 applicationTopically Once,Instr:to skin head to feet, remove b... Start Date: 07/27/20 Status: Ordered predniSONE 10 mg oral tablet See Instructions, May fill 01/20/22 and weekly on Fridays for 3 weeks, # 14 tablet, 2 Refills, 01/18/22 14:09:00 EST, [facility], 155, cm, 12/12/21 16:00:00 EDT, Height, 106.5, kg, 09/14/21 9:38:00 EDT, Dry Weight Start Date: 01/18/22 Status: Ordered selenium sulfide 2.5% topical lotion See Instructions, APPLY TOPICALLY TO AFFECTED AREA EVERY DAY FOR 7 DAYS, # 120 mL, 3 Refills, Soft Stop, 10/26/21 15:43:00 EDT, [facility], 7, APPLY TOPICALLY TO AFFECTED AREA EVERY DAY FOR 7 DAYS, 155, cm, 09/28/21 12:06:00 EDT, H... Start Date: 10/26/21 Status: Ordered tiZANidine 2 mg oral tablet 1, tablet, By Mouth, 3 times a day, # 60 tablet, Refills 0, Route to Pharmacy Electronically, [facility] [id number], 155, cm, 05/03/21 14:39:00 EST, Height, 95.9, kg, 12/05/20 10:08:00 EDT, Dry Weight Start Date: 05/09/21 Status: Ordered traMADol 50 mg oral tablet 1 tablet = 50 mg, By Mouth, Every 8 hours, PRN Pain , Severe, for 7 days, May fill 01/20/22 and weekly on Fridays for 3 weeks, # 21 tablet, 2 Refills, Acute 02/08/22 14:09:00 EST, 01/18/22 14:09:00 EST, Tablet, [facility], [facility]... Start Date: 01/18/22 Stop Date: 02/08/22 Status: Ordered Problem List Condition Confirmation Course Effective Dates Status H ealth Status Informant Anxiety Confirmed Active Opioid type dependence, continuous 1 Confirmed Active Osteoarthritis of left knee Confirmed Active Psoriasis Confirmed Active Severe obesity Confirmed Active 1Client had been seen by Jazz Francois at [facility]. Client has no-showed to last appt and [...] Personnel Name: Ilya De Leon MD Position: [facility] Primary Care Physician Member Role: PCP Address: Address: [address] [place] [id number]- Care Team Related Persons Name: JD ALVAREZ Address: home [address] [place] [id number]
--- OUTSIDE RECORDS SUMMARY | 2022-11-03 10:36 | XMS_ITS | Continuity of Care Document ---
Author Name Unknown Organization [facility] Rosita Willett [facility] Address [address] [place] [address], [address] [place] [address]- Care Team Providers Care Vp Lab Name Role Phone Ilya De Leon MD Primary Care Physician Encounter [facility] [place] ACCT R [id number] Date(s): 03/17/19 - 03/27/19 [facility] [employer] [facility] [address], [address] [place] [address]- Attending Physician: Celsa Lyons Admitting Physician: AdmCelsa paiz Referring Physician: AdmtrCelsa Allergies, Adverse Reactions, Alerts Substance Reaction Severity [...] 01/30/11 Gi lizbeth 1Admin Note: ADMIN BY [facility] 2Admin Note: FLUVIRIN MULTIDOSE ADMINISTERED AT [facility] Medications Cavilon Emollient topical cream 1 application, Topically, 2 times a day, PRN for dry skin, # 454 Gm, 0 Refills, Maintenance, 10/27/18 16:13:42 EDT, Cream Start Date: 10/27/18 Status: Ordered Claritin 10 mg oral tablet 10 mg, 1, tablet, By Mouth, Daily, # 15 tablet, Refills 3, Tot. Refills 3, Maintenance, 11/06/18 8:33:38 EDT, Route to Pharmacy Electronically, [id number], [facility] Start Date: 11/06/18 Status: Ordered Dovonex 0.005% topical cream 1 applicator, Topically, 2 times a day, # 60 Gm, 5 Refills, Maintenance, 01/15/17 16:24:19, 1 applicator Topically 2 times a day,x30 days Start Date: 01/15/17 Stop Date: 07/14/17 Status: Ordered Eucerin Plus topical lotion 1 [...] a day, Apply to rash areas, # 454 Gm, 0 Refills, Maintenance, 11/06/18 8:33:36 EDT, Cream, 1 application Topically 2 times a day,Instr:Apply to rash areas Start Date: 11/06/18 Status: Ordered Lexapro 10 mg oral tablet [...] # 42 tablet, 0 Refills, Soft Stop, 03/24/19 13:42:00 EST, [facility], 158, cm, 12/24/18 10:25:00 EDT... Start Date: 03/24/19 Status: Ordered Medrol Dosepak 4 mg oral tablet per label intructions, By Mouth, Once, # 1 units, 0 Refills, Soft Stop, 11/13/18 16:39:43 EDT Start Date: 11/13/18 Status: Ordered Medrol Dosepak 4 mg oral [...] DAYS, # 120 mL, 3 Refills, Maintenance, [facility], 7, APPLY TOPICALLY TO AFFECTED AREA EVERY DAY FOR 7 DAYS, 158, cm, 12/24/18 10:25:00 EDT, Height, 72.7, kg, 10/27/18 15:09:00... Start Date: 03/02/19 Status: Ordered shower grab bar shower grab [...] Mouth, Daily, PRN for allergy symptoms, # 30 tablet, 0 Refills, Maintenance, 03/02/18 16:46:25 EST, Tablet Start Date: 03/02/18 Stop Date: 04/01/18 Status: Ordered ZyrTEC 10 mg oral tablet = 10 mg, By Mouth, Daily, # 7 tablet, 0 Refills, Maintenance, 07/26/17 18:24:34 EDT Start Date: 07/26/17 Stop Date: 08/02/17 Status: Ordered Problem List Condition Effective Dates Status Health Status Inform ant Opioid type dependence, continuous(Confirmed) 1 Active 1Client had been seen by Jazz Francois at [facility]. Client has no-showed to last appt and today.She will be targetted for closing if she does not responde to correspondence that will be sent on 02/14/13 Social History Social History Type Response Smoking Status 10 or more cigarette s (1/2 pack or more)/day in last 30 days entered on: 01/24/18 Sex
--- OUTSIDE RECORDS SUMMARY | 2022-11-03 10:36 | XMS_ITS | Continuity of Care Document ---
Author Name Unknown Organization [facility] Address [address] [place] [address]- Care Team Providers Care Body Make Up Artist Name Role Phone Ilya De Leon MD Primary Care Physician Encounter [facility] Date(s): 08/17/22 - 09/16/22 [facility] [address], [place] [address] Attending Physician: Celsa Lyons Admitting Physician: AdmCelsa [...] 02/06/10 Garrett rded 1Admin Note: ADMIN BY [facility] 2Admin Note: FLUVIRIN MULTIDOSE ADMINISTERED AT [facility] Medications acetaminophen 650 mg oral tablet, extended release 2 tablet = 1,300 mg, By Mouth, Every 8 hours, # 100 tablet, 1 Refills, Maintenance, 06/29/21 15:10:00 EDT, ER Tablet, [id number], Partial fill upon patient request if the prescription is for a schedule II opioid drug., 155, cm, 05/30/21 15:34:... Start Date: 06/29/21 Status: Ordered Cavilon Emollient topical cream 1 application, Topically, 2 times a day, PRN for dry skin, # 454 Gm, 1 Refills, Maintenance, 09/30/19 16:26:00 EDT, Cream, [facility], 1 application Topically 2 times a day,PRN:for dry skin, 158, cm, 08/27/19 13:02:00 EDT, Height, 76, kg... Start Date: 09/30/19 Status: Ordered cetirizine 10 mg oral tablet, chewable 1 tablet = 10 mg, By Mouth, Daily, PRN for allergy symptoms, # 12 tablet, 4 Refills, Maintenance, 09/04/22 10:28:00 EDT, Chew Tablet, [facility], Partial fill upon patient request ifthe prescription is for a schedule II opioid drug.,... Start Date: 09/04/22 Stop Date: 10/24/22 Status: Ordered cholecalciferol 1000 intl units oral capsule 1 capsule = 25 mcg, By Mouth, Daily, vitamin D, # 100 capsule, 3 Refills, Maintenance, 07/24/22 13:10:00 EDT, Capsule, [facility]/pharmacy #[id number], Partial fill upon patient request if the prescription is fora schedule II opioid drug., 155, cm, 07/17/22 9:50:... Start Date: 07/24/22 Status: Ordered clonazePAM 0.5 mg oral tablet 1 tablet = 0.5 mg, By Mouth, 2 times a day, Increaseddose May weekly on Fridays for 4 weeks starting on 09/07, # 14 tablet, 3 Refills, Maintenance, 09/06/22 14:07:00 EDT, Tablet, [facility], [facility] reviewed, covering for Dr. De Leon, 1... Start Date: 09/06/22 Stop Date: 10/04/22 Status: Ordered clonazePAM 0.5 mg oral tablet 1 tablet = 0.5 mg, By Mouth, 2 times a day, Increaseddose May weekly on Fridays for 3 weeks starting on 07/21, # 14 tablet, 2 Refills, Maintenance, 07/19/22 12:38:00 EDT, Tablet, [facility], [facility] reviewed, covering for Dr. De Leon, 1... Start Date: 07/19/22 Stop Date: 08/09/22 Status: Ordered Dovonex 0.005% topical cream 1 applicator, Topically, 2 times a day, # 60 Gm, 5 Refills, Maintenance, 05/24/22 12:41:00 EDT, [facility], 1 applicator Topically 2 times a day,x30 days, 155, cm, 01/23/22 14:00:00 EST, Height, 106.5, kg, 09/14/21 9:38:00 EDT, Dry... Start Date: 05/24/22 Stop Date: 11/20/22 Status: Ordered Eucerin Unscented topical lotion See Instructions, apply as frequently as needed, # 1 each, 0 Refills, Maintenance, 09/28/21 12:23:00 EDT, [facility], Partial fill upon patient request if the prescription is for a schedule II opioid drug., apply as frequently as n... Start Date: 09/28/21 Status: Ordered fluticasone 50 mcg/inh nasal spray 1 sprays, Nares, Both, 2 times a day, in each nostril. for allergies, # 16 Gm, 0 Refills, Maintenance, 04/27/20 14:35:00 EST, [place], [facility] 3, Partial fill upon patient request if theprescription is for a schedule II opioid drug., 1... Start Date: 04/27/20 Stop Date: 05/27/20 Status: Ordered halobetasol 0.05% topical ointment See Instructions, APPLY A THIN FILM TO THE AFFECTED SKIN AND RUB IN GENTLY AND COMPLETELY TWICE A DAY, # 50 Gm, 0 Refills, Maintenance, 09/12/22 13:49:00 EDT, [facility]/pharmacy #[id number], 30, APPLY A THIN FILM TO THE AFFECTED SKIN AND RUB IN GENTLY AND COMPLET... Start Date: 09/12/22 Status: Ordered ketoconazole 2% topical shampoo See Instructions, APPLY 1 APPLICATOR TOPICALLY 3X PER WEEK, # 120 mL, 3 Refills, Maintenance, 05/16/22 8:48:00 EST, [facility] [id number], 30, APPLY 1 APPLICATOR TOPICALLY 3X PER WEEK, 155, cm, 01/23/22 14:00:00 EST, Height, 106.5, kg, 09/14/21 9:38:00 EDT,... Start Date: 05/16/22 Status: Ordered loratadine 10 mg oral tablet 1, tablet, By Mouth, Daily, # 30 tablet, Refills 5, Tot. Refills 5, Maintenance, 07/04/22 8:39:00 EDT, Route to Pharmacy Electronically, [facility]/pharmacy #[id number], 155, cm, 01/23/22 14:00:00 EST, Height, 106.5, kg, 09/14/21 9:38:00 EDT, Dry Weight Start Date: 07/04/22 Status: Ordered Methadone By Mouth, 0 Refills, Maintenance Start Date: 12/25/11 Status: Ordered mupirocin 2% topical cream 1 application, Topically, 3 times a day, # 30 Gm, 2 Refills, Maintenance, 03/08/21 10:26:00 EST, Cream, [facility]/pharmacy #[id number], Partial fill upon patient request if the prescription is for a schedule II opioid drug., 1 application Topically 3 times a day,... Start Date: 03/08/21 Status: Ordered permethrin 5% topical cream 1 application, Topically, Once, to skin head to feet, remove by washing after 8 to 14 hours, # 60 Gm, 0 Refills, Soft Stop, 07/27/20 11:50:00 EDT, Cream, [facility], 1 applicationTopically Once,Instr:to skin head to feet, remove b... Start Date: 07/27/20 Status: Ordered predniSONE 5 mg oral tablet See Instructions, latest dosage 15 mg daily, now to take 5mg tablet, 3 daily. May fill Fridays starting 09/07/22, # 21 tablet, 3 Refills, Maintenance, 09/06/22 14:07:00 EDT, [facility], Partial fill upon patient request if the pres... Start Date: 09/06/22 Status: Ordered selenium sulfide 2.5% topical lotion See Instructions, APPLY TOPICALLY TO AFFECTED AREA EVERY DAY FOR 7 DAYS, # 120 mL, 3 Refills, Soft Stop, 10/26/21 15:43:00 EDT, [facility], 7, APPLY TOPICALLY TO AFFECTED AREA EVERY DAY FOR 7 DAYS, 155, cm, 09/28/21 12:06:00 EDT, H... Start Date: 10/26/21 Status: Ordered simvastatin 20 mg oral tablet 20 mg, 1, tablet, By Mouth, Daily at bedtime, for cholesterol, # 30 tablet, Refills 5, Tot. Refills5, Maintenance, 07/24/22 13:12:00 EDT, Route to Pharmacy Electronically, [facility]/pharmacy #[id number], Partial fill upon patient request if the prescription is f... Start Date: 07/24/22 Status: Ordered traMADol 50 mg oral tablet 1 tablet = 50 mg, By Mouth, Every 8 hours, PRN Pain , Severe, for 7 days, 4May fill 08/11/22 and weekly on Fridays for 4 weeks, # 21 tablet, 3 Refills, Acute 10/06/22 8:49:00 EDT, 09/08/22 8:49:00 EDT,Tablet, [facility], Partial fi... Start Date: 09/08/22 Stop [...] had been seen by Jazz Francois at [facility]. Client has no-showed to last appt [...] Primary Care Member Role: PCP Address: Address: [address] [place] [id number]- Care Team Related Persons Name: JD ALVAREZ Address: home [address] [place] [id number]
--- OUTSIDE RECORDS SUMMARY | 2022-11-03 10:36 | XMS_ITS | Continuity of Care Document ---
Author Name Unknown Organization [facility] Address Unknown Care Team Providers Care Bending Press Operator Name Role Phone Ilya De Leon MD Primary Care Physician Encounter [facility] [place](s): 03/18/21 - 04/17/21 [facility] Allergies, Adverse Reactions, Alerts Substance Reaction Severity Status penicillin Rash Active aspirin Ibuprofen tight throat Rash Active morphine HAND SWELLING Active Toradol Rash Active Motrin tight throat Rash Active Imitrex Chest pain Active Compazine throat swells Active Reglan Agitated Active trimethoprim-sulfamethoxazole DS 1 Throa t Hives 17-MAY-2013 07:29:57<$> Unknown Active dehydroepiandrosterone 2 Chest pain Act juilenne 1By phone, reported hives and throat locking up after taking doses of Bactrim repeatedly for several days 2DHEA Immunizations Given and Recorded Vaccine Date Status Refusal Reason tetanus/diphtheria/pertussis, acel(Tdap) 02/14/17 Recorded influenza virus vaccine, inactivated 1 03/22/12 Gi lizbeth influenza virus vaccine, inactivated 2 01/30/11 Gi lizbeth 1Admin Note: ADMIN BY [facility] 2Admin Note: FLUVIRIN MULTIDOSE ADMINISTERED AT [facility] Medications capsaicin 0.025% topical cream See Instructions, APPLY TO AFFECTED AREA TWICE A DAY, # 60 Gm, 1 Refills, [id number], 30, APPLY TO AFFECTED AREA TWICE A DAY, 155, cm, 04/08/21 11:33:00 EST, Height, 95.9, kg, 12/05/20 10:08:00 EDT, Dry Weight Start Date: 04/17/21 Status: Ordered Cavilon Emollient topical cream 1 application, Topically, 2 times a day, PRN for dry skin, # 454 Gm, 1 Refills, Maintenance, 09/30/19 16:26:00 EDT, Cream, [facility] 3, 1 application Topically 2 times a day,PRN:for dry skin, 158, cm, 08/27/19 13:02:00 EDT, Height, 76, kg... Start Date: 09/30/19 Status: Ordered cetirizine 10 mg oral tablet 1 tablet = 10 mg, By Mouth, Daily, # 30 tablet, 0 Refills, Maintenance, 12/03/20 13:44:00 EDT, [facility], [id number] Partial fill upon patient request if the prescription is for a schedule II opioid drug., 158, cm, 12/03/20 13:27:00 EDT, Height,... Start Date: 12/03/20 Status: Ordered Claritin 10 mg oral tablet 10 mg, 1, tablet, By Mouth, Daily, # 15 tablet, Refills 3, Tot. Refills 3, Maintenance, 11/06/18 8:33:38 EDT, Route to Pharmacy Electronically, [id number], [facility] Start Date: 11/06/18 Status: Ordered clindamycin 1% topical gel 1 application, Topically, 2 times a day, # 30 Gm, 0 Refills, Maintenance, 04/08/21 12:14:00 EST, Gel, [facility], Partial fill upon patient request if the prescription is for a schedule II opioid drug., 1 application Topically 2 ti... Start Date: 04/08/21 Status: Ordered clindamycin 150 mg oral capsule See Instructions, 3 capsultes 3 times a day, # 45 capsule, 0 Refills, Acute 01/20/22 14:53:00 EST, 03/17/21 14:50:00 EST, Capsule, [facility], Partial fill upon patient request ifthe prescription is for a schedule II opioid drug.,... Start Date: 03/17/21 Stop Date: 01/20/22 Status: Ordered clonazePAM 0.5 mg oral tablet 1 tablet = 0.5 mg, By Mouth, Daily, VISUAL ARTIST checked Do not fill until 04/11/21, # 7 tablet, 0 Refills, Maintenance, 04/10/21 7:32:00 EST, Tablet, [id number], Partial fill upon patient request if the prescription is for a schedule II opioid drug.,... Start Date: 04/10/21 Stop Date: 04/17/21 Status: Ordered diphenhydrAMINE 25 mg oral tablet 1 tablet = 25 mg, By Mouth, 3 times a day, PRN as needed for itching, Will cause drowsiness, # 30 tablet, 0 Refills, Maintenance, 07/16/20 15:11:00 EDT, Tablet, [facility], Partial fill upon patient request if the prescription is f... Start Date: 07/16/20 Status: Ordered Dovonex 0.005% topical cream 1 applicator, Topically, 2 times a day, # 60 Gm, 5 Refills, Maintenance, 07/07/19 17:30:00 EDT, [facility] 3, 1 applicator Topically 2 times [...] Gm, 0 Refills, Maintenance, 04/27/20 14:35:00 EST, [place], [facility] 3, Partial fill upon patient request if theprescription is for a schedule II opioid drug., 1... Start Date: 04/27/20 Stop Date: 05/27/20 Status: Ordered Gauze Pad (2 X 2) [...] A DAY, # 50 Gm, 1 Refills, [facility] [address] [id number], 30, APPLY A THIN FILM TO THE AFFECTED SKIN AND RUB IN GENTLY AND COMPLETELY TWICE A DAY, 155, cm, 12/05/20 10:0... Start Date: 03/15/21 Status: Ordered hydrocortisone 1% topical cream 1 application, Topically, 2 times a day, Apply to rash areas, # 60 Gm, 3 Refills, Maintenance, 06/04/19 14:52:00 EDT, Cream, [facility] 3, 1 application Topically 2 times a day,Instr:Apply to rash areas, 158, cm, 12/24/18 10:25:00 EDT, Hei... Start Date: 06/04/19 Status: Ordered ketoconazole 2% topical shampoo See Instructions, APPLY 1 APPLICATOR TOPICALLY 3X PER WEEK, # 120 mL, 3 Refills, [facility] [address] [facility] [id number], 30, APPLY 1 APPLICATOR TOPICALLY 3X PER [...] a day,... Start Date: 03/08/21 Status: Ordered [place] 0.65% nasal spray 2 sprays, Nares, Both, 4 times a day, # 1 each, 0 Refills, Maintenance, 12/03/20 13:46:00 EDT, [id number] fill upon patient [...] Refills, Soft Stop, 07/27/20 11:50:00 EDT, Cream, [facility], 1 applicationTopically Once,Instr:to skin head to feet, remove b... Start Date: 07/27/20 Status: Ordered predniSONE 10 mg oral tablet See Instructions, 1 tablet By Mouth Daily for 6 days then 1/2 tablet daily for 6 days to taper off completely; in [place]istan[place], # 9 tablet, 0 Refills, Maintenance, 04/08/21 12:25:00 EST, [facility], Partial fill upon patient request if... Start Date: 04/08/21 Status: Ordered selenium sulfide 2.5% topical lotion See Instructions, APPLY TOPICALLY TO AFFECTED AREA EVERY DAY FOR 7 DAYS, # 120 mL, 3 Refills, Soft Stop, 03/08/21 10:26:00 EST, [id number] 7, APPLY TOPICALLY TO AFFECTED AREA EVERY DAY FOR 7DAYS, 155, cm, 12/05/20 10:08:00 EDT, Height, 95.9,... Start Date: 03/08/21 Status: Ordered Shingrix intramuscular injection = 0.5 mL, Intramuscular, Once, repeat dose in 2 to 6 months, # 2 each, 0 Refills, Soft Stop, 05/27/20 11:03:00 EDT, Powder, [facility], Partial fill upon patient request [...] 1 Refills, Maintenance, 03/10/20 18:21:00 EST, Cream, [facility] 3, Partial fill upon patient request if the prescription is fora schedule II opioid drug., 1 application Topically... Start Date: 03/10/20 Status: Ordered tiZANidine 2 mg oral tablet 2 mg, 1, tablet, By Mouth, 3 times a day, for 30 days, # 90 tablet, Refills 0, Tot. Refills 0, Acute 05/08/21 12:19:00 EST, 04/08/21 12:19:00 EST, Route to Pharmacy Electronically, [facility], Partial fill upon patient request if t... Start Date: 04/08/21 Stop Date: 05/08/21 Status: Ordered Valium 5 mg oral tablet 5 mg, 1, tablet, By Mouth, Daily at bedtime, PRN, # 3 tablet, Refills 0, Tot. Refills 0, Maintenance, Spasm, 04/03/21 11:16:00 EST, Route to Pharmacy Electronically, [facility] 3, Partialfill upon patient request if the prescription is fo... Start Date: 04/03/21 Status: Ordered Problem List Condition Effective Dates Status Health Status Inform ant Anxiety(Confirmed) Active Opioid type dependence, continuous(Confirmed) 1 Active Osteoarthritis of left knee(Confirmed) Active Psoriasis(Confirmed) Active Severe obesity(Confirmed) Active 1Client had been seen by Jazz Francois at [facility]. Client has no-showed to last appt and today.She will be targetted for closing if she does not responde to correspondence that will be sent on 02/14/13 Social History Social History Type Response Smoking Status 5-9 cigarettes (betw een 1/4 to 1/2 pack)/day in last 30 days entered on: 09/08/20 Sex
--- OUTSIDE RECORDS SUMMARY | 2022-11-03 10:36 | XMS_ITS | Continuity of Care Document ---
Author Name Unknown Organization [facility] Address [address] [place] [address]- Care Team Providers Care Hot Box Checker Name Role Phone Ilya De Leon MD Primary Care Physician [place] [facility] 06/28/22 [facility]/[address] [address]- Attending Physician: Ilya De Leon MD Admitting Physician: Ilya De Leon MD Allergies, Adverse Reactions, Alerts Substance Reaction Severity Status penicillin Rash Active Toradol Rash Active trimethoprim-sulfamethoxazole DS 1 Throa t Hives 17-MAY-2013 07:29:57<$> Unknown Active Imitrex Chest pain Active aspirin Ibuprofen tight throat Rash Active morphine HAND SWELLING Active Motrin tight throat Rash Active Compazine [...] 02/06/10 Garrett rded 1Admin Note: ADMIN BY [facility] 2Admin Note: FLUVIRIN MULTIDOSE ADMINISTERED AT [facility] Medications acetaminophen 650 mg oral tablet, extended release 2 tablet = 1,300 mg, By Mouth, Every 8 hours, # 100 tablet, 1 Refills, Maintenance, 06/29/21 15:10:00 EDT, ER Tablet, [id number], Partial fill upon patient request if the prescription is for a schedule II opioid drug., 155, cm, 05/30/21 15:34:... Start Date: 06/29/21 Status: Ordered capsaicin 0.025% topical cream See Instructions, APPLY TO AFFECTED AREA TWICE A DAY, # 60 Gm, 1 Refills, [facility] [id number], 30, APPLY TO AFFECTED AREA TWICE A DAY, 155, cm, 05/30/21 15:34:00 EDT, Height, 95.9, kg, 12/05/20 10:08:00 EDT, Dry Weight Start Date: 05/31/21 Status: Ordered Cavilon Emollient topical cream 1 application, Topically, 2 times a day, PRN for dry skin, # 454 Gm, 1 Refills, Maintenance, 09/30/19 16:26:00 EDT, Cream, [facility] 3, 1 application Topically 2 times a day,PRN:for dry skin, 158, cm, 08/27/19 13:02:00 EDT, Height, 76, kg... Start Date: 09/30/19 Status: Ordered clonazePAM 0.5 mg oral tablet 1 tablet = 0.5 mg, By Mouth, Daily at bedtime, May fill 06/16/22 and weekly on Fridays for 3 weeks, #7 tablet, 2 Refills, Maintenance, 06/14/22 11:37:00 EDT, Tablet, [facility], [facility] reviewed, covering for Dr. De Leon, 155, cm, 01/23... Start Date: 06/14/22 Stop Date: 07/05/22 Status: Ordered clonazePAM 0.5 mg oral tablet 1 tablet = 0.5 mg, By Mouth, Daily at bedtime, May fill 05/26/22 and weekly on Fridays for 3 weeks, # 7 tablet, 2 Refills, Maintenance, 05/24/22 10:44:00 EDT, Tablet, [facility], [facility] reviewed, covering for Dr. De Leon, 155, cm, 01/10... Start Date: 05/24/22 Stop Date: 06/14/22 Status: Ordered clonazePAM 0.5 mg oral tablet 1 tablet = 0.5 mg, By Mouth, Daily at bedtime, May fill 04/14/22 and weekly on Fridays for3 weeks, # 7 tablet, 2 Refills, Maintenance, 04/13/22 10:13:00 EST, Tablet, [facility], [facility]MPreviewed, covering for Dr. De Leon, 155, cm, ... Start Date: 04/13/22 Stop Date: 05/04/22 Status: Ordered coal tar topical 1% lotion See Instructions, applyTopically Daily at bedtime, # 120 mL, 3 Refills, Maintenance, 10/26/21 15:45:00 EDT, [facility], Partial fill upon patient request if the prescription is for a schedule II opioid drug., applyTopically Daily a... Start Date: 10/26/21 Status: Ordered Dovonex 0.005% topical cream 1 applicator, Topically, 2 times a day, # 60 Gm, 5 Refills, Maintenance, 05/24/22 12:41:00 EDT, [facility], 1 applicator Topically 2 times a day,x30 days, 155, cm, 01/23/22 14:00:00 EST, Height, 106.5, kg, 09/14/21 9:38:00 EDT, Dry... Start Date: 05/24/22 Stop Date: 11/20/22 Status: Ordered Eucerin Unscented topical lotion See Instructions, apply as frequently as needed, # 1 each, 0 Refills, Maintenance, 09/28/21 12:23:00 EDT, [facility], Partial fill upon patient request if the prescription is for a schedule II opioid drug., apply as frequently as n... Start Date: 09/28/21 Status: Ordered fluticasone 50 mcg/inh nasal spray 1 sprays, Nares, Both, 2 times a day, in each nostril. for allergies, # 16 Gm, 0 Refills, Maintenance, 04/27/20 14:35:00 EST, [place], [facility] 3, Partial fill upon patient request if theprescription is for a schedule II opioid drug., 1... Start Date: 04/27/20 Stop Date: 05/27/20 Status: Ordered halobetasol 0.05% topical ointment See Instructions, APPLY A THIN FILM TO THE AFFECTED SKIN AND RUB IN GENTLY AND COMPLETELY TWICE A DAY, # 50 Gm, 1 Refills, Maintenance, 10/26/21 15:44:00 EDT, [facility], 30, APPLY A THIN FILM TO THE AFFECTED SKIN AND RUB IN GENTLY... Start Date: 10/26/21 Status: Ordered ketoconazole 2% topical shampoo See Instructions, APPLY 1 APPLICATOR TOPICALLY 3X PER WEEK, # 120 mL, 3 Refills, Maintenance, 05/16/22 8:48:00 EST, [id number], 30, APPLY 1 APPLICATOR TOPICALLY 3X PER WEEK, 155, cm, 01/23/22 14:00:00 EST, Height, 106.5, kg, 09/14/21 9:38:00 EDT,... Start Date: 05/16/22 Status: Ordered loratadine 10 mg oral tablet 1, tablet, By Mouth, Daily, # 90 tablet, Refills 1, Maintenance, 05/23/22 16:24:00 EDT, Route to Pharmacy Electronically, [facility] [id number], 155, cm, 01/23/22 14:00:00 EST, Height, 106.5, kg, 09/14/21 9:38:00 EDT, Dry Weight Start Date: 05/23/22 Status: Ordered Methadone By Mouth, 0 Refills, Maintenance Start Date: 12/25/11 Status: Ordered mupirocin 2% topical cream 1 application, Topically, 3 times a day, # 30 Gm, 2 Refills, Maintenance, 03/08/21 10:26:00 EST, Cream, [facility]/pharmacy #[id number], Partial fill upon patient request if the prescription is for a schedule II opioid drug., 1 application Topically 3 times a day,... Start Date: 03/08/21 Status: Ordered permethrin 5% topical cream 1 application, Topically, Once, to skin head to feet, remove by washing after 8 to 14 hours, # 60 Gm, 0 Refills, Soft Stop, 07/27/20 11:50:00 EDT, Cream, [facility], 1 applicationTopically Once,Instr:to skin head to feet, remove b... Start Date: 07/27/20 Status: Ordered predniSONE 10 mg oral tablet See Instructions, May fill 06/16/22 and weekly on Fridays for 3 weeks, # 14 tablet, 2 Refills, 06/14/22 11:37:00 EDT, [facility], 155, cm, 01/23/22 14:00:00 EST, Height, 106.5, kg, 09/14/21 9:38:00 EDT, Dry Weight Start Date: 06/14/22 Status: Ordered predniSONE 10 mg oral tablet See Instructions, May fill 05/26/22 and weekly on Fridays for 3 weeks, # 14 tablet, 2 Refills, 05/24/22 10:44:00 EDT, [facility], 155, cm, 01/23/22 14:00:00 EST, Height, 106.5, kg,09/14/21 9:38:00 EDT, Dry Weight Start Date: 05/24/22 Status: Ordered predniSONE 10 mg oral tablet See Instructions, May fill and weekly on Fridays for 3 weeks, # 14 tablet, 2 Refills, 04/13/22 10:13:00 EST, [facility], 155, cm, 01/23/22 14:00:00 EST, Height, 106.5, kg,09/14/21 9:38:00 EDT, Dry Weight Start Date: 04/13/22 Status: Ordered selenium sulfide 2.5% topical lotion See Instructions, APPLY TOPICALLY TO AFFECTED AREA EVERY DAY FOR 7 DAYS, # 120 mL, 3 Refills, Soft Stop, 10/26/21 15:43:00 EDT, [facility], 7, APPLY TOPICALLY TO AFFECTED AREA EVERY DAY FOR 7 DAYS, 155, cm, 09/28/21 12:06:00 EDT, H... Start Date: 10/26/21 Status: Ordered tiZANidine 2 mg oral tablet 1, tablet, By Mouth, 3 times a day, # 60 tablet, Refills 0, Route to Pharmacy Electronically, [facility] [id number], 155, cm, 05/03/21 14:39:00 EST, Height, 95.9, kg, 12/05/20 10:08:00 EDT, Dry Weight Start Date: 05/09/21 Status: Ordered traMADol 50 mg oral tablet 1 tablet = 50 mg, By Mouth, Every 8 hours, PRN Pain , Severe, for 7 days, May fill 06/16/22 and weekly on Fridays for 3 weeks, # 21 tablet, 2 Refills, Acute 07/05/22 11:37:00 EDT, 06/14/22 11:37:00 EDT, Tablet, [facility], Partial f... Start Date: 06/14/22 Stop Date: 07/05/22 Status: Ordered Problem List Condition Confirmation Course Effective Dates Status H ealth Status Informant Anxiety Confirmed Active Opioid type dependence, continuous 1 Confirmed Active Osteoarthritis of left knee Confirmed Active Psoriasis Confirmed Active Severe obesity Confirmed Active 1Client had been seen by Jazz Francois at [facility]. Client has no-showed to last appt [...] Care Physician Member Role: PCP Address: Address: [address] [place] [id number]- Care Team Related Persons Name: JD ALVAREZ Address: home [address] [place] [id number]
--- OUTSIDE RECORDS SUMMARY | 2022-11-03 10:36 | XMS_ITS | Continuity of Care Document ---
Author Name Unknown Organization [facility] Address [address] [place] [address]- Care Team Providers Care Aircraft Avionics Technician Name Role Phone Ilya De Leon MD Primary Care Physician Encounter [facility] [place] Date(s): 09/09/20 - 10/17/20 [facility] [address] [place] [address]- Attending Physician: Ilya De Leon MD Admitting [...] 01/30/11 Gi lizbeth 1Admin Note: ADMIN BY [facility] 2Admin Note: FLUVIRIN MULTIDOSE ADMINISTERED AT [facility] Medications acetaminophen 500 mg oral tablet 2 tablet = 1,000 mg, By Mouth, 3 times a day, PRN as needed for fever, not to exceed 3000 mg/day take scheduled three times a day, # 100 tablet, 1 Refills, Acute 12/26/20 11:44:00 EDT, 09/24/20 11:43:00 EDT, Tablet, [facility] #[id number], Partial fill u... Start Date: 09/24/20 Stop Date: 12/26/20 Status: Ordered Cavilon Emollient topical cream 1 application, Topically, 2 times a day, PRN for dry skin, # 454 Gm, 1 Refills, Maintenance, 09/30/19 16:26:00 EDT, Cream, [facility] 3, 1 application Topically 2 times a day,PRN:for dry skin, 158, cm, 08/27/19 13:02:00 EDT, Height, 76, kg... Start Date: 09/30/19 Status: Ordered cetirizine 10 mg oral tablet 1 tablet = 10 mg, By Mouth, Daily, for allergies. Do NOT take with claritin, # 30 tablet, 0 Refills, Maintenance, 07/23/20 11:37:00 EDT, Tablet, [facility], Partial fill upon patient request if the prescription is for a schedule II... Start Date: 07/23/20 Stop Date: 08/22/20 Status: Ordered Claritin 10 mg oral tablet 10 mg, 1, tablet, By Mouth, Daily, # 15 tablet, Refills 3, Tot. Refills 3, Maintenance, 11/06/18 8:33:38 EDT, Route to Pharmacy Electronically, [id number], [facility] Start Date: 11/06/18 Status: Ordered clonazePAM 0.5 mg oral tablet 1 tablet = 0.5 mg, By Mouth, Daily, # 28 tablet, 0 Refills, Maintenance, 09/22/20 12:58:00 EDT, Tablet, [facility], Partial fill upon patient request if the prescription is for a schedule II opioid drug., 158, cm, 09/08/20 14:36:00... Start Date: 09/22/20 Status: Ordered clonazePAM 0.5 mg oral tablet 1 tablet = 0.5 mg, By Mouth, Daily, # 1 tablet, 0 Refills, Maintenance, 10/17/20 9:00:00 EDT, Tablet, [facility] 3, Partial fill upon patient [...] Gm, 5 Refills, Maintenance, 07/07/19 17:30:00 EDT, [facility] 3, 1 applicator Topically 2 times [...] Gm, 0 Refills, Maintenance, 04/27/20 14:35:00 EST, [place], [facility] 3, Partial fill upon patient request if theprescription is for a schedule II opioid drug., 1... Start Date: 04/27/20 Stop Date: 05/27/20 Status: Ordered furosemide 20 mg oral tablet 20 mg, 1, tablet, By Mouth, Daily, # 30 tablet, Refills 1, Tot. Refills 1, Maintenance, 08/27/20 16:12:00 EDT, Route to Pharmacy Electronically, [facility]/pharmacy #[id number], Partial fill upon patient request if the prescription is for a schedule II opioid drug... Start Date: 08/27/20 Status: Ordered halobetasol 0.05% topical ointment 1 application, Topically, 2 times a day, apply in a thin film to the affected skin and rub in gently and completely, # 50 Gm, 1 Refills, Acute 10/18/20 14:15:00 EDT, 09/24/20 13:11:00 EDT, Ointment, [facility]/pharmacy #[id number], Partial fill upon patient reques... Start Date: 09/24/20 Stop Date: 10/18/20 Status: Ordered hydrocortisone 1% topical cream 1 application, Topically, 2 times a day, Apply to rash areas, # 60 Gm, 3 Refills, Maintenance, 06/04/19 14:52:00 EDT, Cream, [facility] 3, 1 application Topically 2 [...] 12/26/20 11:39:00 EDT, 09/24/20 11:38:00 EDT, Ointment, [facility]/pharmacy #[id number], Partial fill upon patient request [...] 2 Refills, Maintenance, 09/14/20 17:22:00 EDT, Cream, [id number] fill upon patient request if the prescription is for a schedule II opioid drug., 1 application Topically 3 times a day,... Start Date: 09/14/20 Status: Ordered Nizoral 2% topical shampoo See Instructions, 1 applicator Topically 3x per week, # 120 mL, 3 Refills, Soft Stop, 08/12/20 10:30:00 EDT, [id number] 1 applicator Topically 3x per [...] 0 Refills, Maintenance, 10/15/20 13:08:00 EDT, Tablet, [facility], Partial fill upon patient request if the prescription is for a schedule II opioid drug., 158, cm, 09/24/20 10... Start Date: 10/15/20 Stop Date: 10/22/20 Status: Ordered predniSONE 5 mg oral tablet 1 tablet = 5 mg, By Mouth, 3 times a day, # 21 tablet, 0 Refills, Maintenance, 10/06/20 15:03:00 EDT, Table[facility], [id number] fill upon patient request [...] 1 Refills, Maintenance, 03/10/20 18:21:00 EST, [place], [facility] 3, Partial fill upon patient [...] 0 Refills, Maintenance, 09/24/20 11:47:00 EDT, Gel, [facility]/pharmacy #[id number], 1 application Topically 4 times [...]
--- OUTSIDE RECORDS SUMMARY | 2022-11-03 10:36 | XMS_ITS | Continuity of Care Document ---
Author Name Unknown Organization [facility] Address [address] [place] [address]- Care Team Providers Care Senior Android Developer Name Role Phone Ilya De Leon MD Primary Care Physician Encounter [facility] [place] Date(s): 09/11/19 - 10/11/19 [facility]/[address] [address]- [facility] Allergies, Adverse Reactions, Alerts Substance Reaction Severity Status penicillin Rash Active aspirin Ibuprofen tight throat Rash Active morphine HAND SWELLING Active Motrin tight throat Rash Active Imitrex Chest pain Active Compazine throat swells Active Reglan Agitated Active trimethoprim-sulfamethoxazole DS 1 Throa t Hives 17-MAY-2013 07:29:57<$> Unknown Active dehydroepiandrosterone 2 Chest pain Act julienne Toradol Rash Active 1By phone, reported hives and throat locking up after taking doses of Bactrim repeatedly for several days 2DHEA Immunizations Given and Recorded Vaccine Date Status Refusal Reason influenza virus vaccine, inactivated 1 03/22/12 Gi lizbeth influenza virus vaccine, inactivated 2 01/30/11 Gi lizbeth 1Admin Note: ADMIN BY [facility] 2Admin Note: FLUVIRIN MULTIDOSE ADMINISTERED AT [facility] Medications Cavilon Emollient topical cream 1 application, Topically, 2 times a day, PRN for dry skin, # 454 Gm, 1 Refills, Maintenance, 09/30/19 16:26:00 EDT, Cream, [facility], 1 application Topically 2 times a day,PRN:for dry skin, 158, cm, 08/27/19 13:02:00 EDT, Height, 76, kg... Start Date: 09/30/19 Status: Ordered Claritin 10 mg oral tablet 10 mg, 1, tablet, By Mouth, Daily, # 15 tablet, Refills 3, Tot. Refills 3, Maintenance, 11/06/18 8:33:38 EDT, Route to Pharmacy Electronically, [id number], [facility] Start Date: 11/06/18 Status: Ordered Dovonex 0.005% topical cream 1 applicator, Topically, 2 times a day, # 60 Gm, 5 Refills, Maintenance, 07/07/19 17:30:00 EDT, [facility] 3, 1 applicator Topically 2 [...] 3 Refills, Maintenance, 06/04/19 14:52:00 EDT, Cream, [facility], 1 application Topically [...] 0 Refills, Soft Stop, 09/18/19 16:47:00 EDT, [facility] 3, 158, cm, ... Start Date: 09/18/19 Status: Ordered Medrol Dosepak 4 mg oral tablet per label intructions, By Mouth, Once, as on label, # 1 each, 0 Refills, Soft Stop, 08/11/19 20:08:00 EDT, [facility] 3, 158, cm, 12/24/18 10:25:00 EDT, [...] 0 Refills, Soft Stop, 08/27/19 14:17:00 EDT, [facility], 1 applicator Topically 3x per week, 158, [...] 3 Refills, Soft Stop, 09/23/19 15:13:00 EDT, [facility], 7, APPLY TOPICALLY TO [...] 0 Refills, Maintenance, 04/06/19 20:19:00 EST, Tablet, [facility], 158, cm, 12/24/18 [...]
--- OUTSIDE RECORDS SUMMARY | 2022-11-03 10:36 | XMS_ITS | Continuity of Care Document ---
Author Name Unknown Organization [facility] Address Unknown Care Team Providers Care Center Receptionist Name Role Phone Ilya De Leon MD Primary Care Physician [place] [facility] [place](s): 06/20/21 - 09/24/21 [facility] Attending Physician: Ilya De Leon MD Admitting Physician: Ilya De Leon MD Allergies, Adverse Reactions, Alerts Substance Reaction Severity Status penicillin Rash Active Imitrex Chest pain Active trimethoprim-sulfamethoxazole DS 1 Throa t Hives 17-MAY-2013 07:29:57<$> Unknown Active dehydroepiandrosterone 2 Chest pain Act julienne aspirin Ibuprofen tight throat Rash Active morphine [...] 01/30/11 Gi lizbeth 1Admin Note: ADMIN BY [facility] 2Admin Note: FLUVIRIN MULTIDOSE ADMINISTERED AT [facility] Medications acetaminophen 650 mg oral tablet, extended release 2 tablet = 1,300 mg, By Mouth, Every 8 hours, # 100 tablet, 1 Refills, Maintenance, 06/29/21 15:10:00 EDT, ER Tablet, [id number], Partial fill upon patient request if the prescription is for a schedule II opioid drug., 155, cm, 05/30/21 15:34:... Start Date: 06/29/21 Status: Ordered capsaicin 0.025% topical cream See Instructions, APPLY TO AFFECTED AREA TWICE A DAY, # 60 Gm, 1 Refills, [id number], 30, APPLY TO AFFECTED AREA TWICE A DAY, 155, cm, 05/30/21 15:34:00 EDT, Height, 95.9, kg, 12/05/20 10:08:00 EDT, Dry Weight Start Date: 05/31/21 Status: Ordered Cavilon Emollient topical cream 1 application, Topically, 2 times a day, PRN for dry skin, # 454 Gm, 1 Refills, Maintenance, 09/30/19 16:26:00 EDT, Cream, [facility], 1 application Topically 2 times a day,PRN:for dry skin, 158, cm, 08/27/19 13:02:00 EDT, Height, 76, kg... Start Date: 09/30/19 Status: Ordered clonazePAM 0.5 mg oral tablet 1 tablet = 0.5 mg, By Mouth, Daily at bedtime, July cammie l 09/22/21, # 7 tablet, 0 Refills, Maintenance, 09/21/21 7:19:00 EDT, Tablet, [facility], [employer] reviewed, covering for Dr. De Leon, 155, cm, 09/15/21 10:14:00 EDT, Height, 106.5,... Start Date: 09/21/21 Stop Date: 09/28/21 Status: Ordered Dovonex 0.005% topical cream 1 applicator, Topically, 2 times a day, # 60 Gm, 5 Refills, Maintenance, 07/07/19 17:30:00 EDT, [facility], 1 applicator Topically 2 times a day,x30 days, 158, cm, 12/24/18 10:25:00 EDT, Height, 76, kg, 04/12/19 15:31:00 EST, Dry Weight Start Date: 07/07/19 Stop Date: 01/03/20 Status: Ordered fluticasone 50 mcg/inh nasal spray 1 sprays, Nares, Both, 2 times a day, in each nostril. for allergies, # 16 Gm, 0 Refills, Maintenance, 04/27/20 14:35:00 EST, [place], [facility] 3, Partial fill upon patient request if theprescription is for a schedule II opioid drug., 1... Start Date: 04/27/20 Stop Date: 05/27/20 Status: Ordered halobetasol 0.05% topical ointment See Instructions, APPLY A THIN FILM TO THE AFFECTED SKIN AND RUB IN GENTLY AND COMPLETELY TWICE A DAY, # 50 Gm, 1 Refills, [id number], 30, APPLY A THIN FILM TO THE AFFECTED SKIN AND RUB IN GENTLY AND COMPLETELY TWICE A DAY, 155, cm, 12/05/20 10:0... Start Date: 03/15/21 Status: Ordered hydrocortisone 1% topical cream 1 application, Topically, 2 times a day, # 30 Gm, 0 Refills, Maintenance, 06/17/21 11:42:00 EDT, Cream, [facility] 3, Partial fill upon patient request if the prescription is for a schedule II opioid drug., 1 application Topically 2 times... Start Date: 06/17/21 Status: Ordered hydrOXYzine hydrochloride 25 mg oral tablet 1 capsule, By Mouth, 3 times a day, PRN for itching, for 30 days, # 90 capsule, 1 Refills, Acute 10/23/21 14:41:00 EDT, 08/24/21 14:41:00 EDT, Capsule, [facility], Partial fill upon patient request if the prescription is for a sche... Start Date: 08/24/21 Stop Date: 10/23/21 Status: Ordered ketoconazole 2% topical shampoo See Instructions, APPLY 1 APPLICATOR TOPICALLY 3X PER WEEK, # 120 mL, 3 Refills, [id number], 30, APPLY 1 APPLICATOR TOPICALLY 3X PER WEEK, 155, cm, 05/30/21 15:34:00 EDT, Height, 95.9, kg, 12/05/20 10:08:00 EDT, Dry Weight Start Date: 08/02/21 Status: Ordered loratadine 10 mg oral tablet 1, tablet, By Mouth, Daily, # 15 tablet, Refills 5, Tot. Refills 5, Maintenance, 08/19/21 9:15:00 EDT, Route to Pharmacy Electronically, [id number], 155, cm, 05/30/21 15:34:00 EDT, Height, 95.9, kg, 12/05/20 10:08:00 EDT, Dry Weight Start Date: 08/19/21 Status: Ordered Methadone By Mouth, 0 Refills, Maintenance Start Date: 12/25/11 Status: Ordered mupirocin 2% topical cream 1 application, Topically, 3 times a day, # 30 Gm, 2 Refills, Maintenance, 03/08/21 10:26:00 EST, [id number] Partial fill upon patient request if the prescription is for a schedule II opioid drug., 1 application Topically 3 times a day,... Start Date: 03/08/21 Status: Ordered permethrin 5% topical cream 1 application, Topically, Once, to skin head to feet, remove by washing after 8 to 14 hours, # 60 Gm, 0 Refills, Soft Stop, 07/27/20 11:50:00 EDT, Cream, [facility], 1 applicationTopically Once,Instr:to skin head to feet, remove b... Start Date: 07/27/20 Status: Ordered predniSONE 10 mg oral tablet See Instructions, MADDY 1 TABLETA POR LA BOCA CADA ANDREW POR 7 RAY, # 7 tablet, 0 Refills, [facility], 155, cm, 08/24/21 14:47:00 EDT, Height, 95.9, kg, 12/05/20 10:08:00 EDT, Dry Weight Start Date: 09/08/21 Status: Ordered predniSONE 10 mg oral tablet 1 tablet = 10 mg, By Mouth, 2 times a day, for 7 days, fill 09/22/21, # 14 tablet, 0 Refills, Physician Stop 09/28/21 7:19:00 EDT, 09/21/21 7:19:00 EDT, [facility], 155, cm, 09/15/21 10:14:00 EDT, Height, 106.5, kg, 09/14/21 9:38:00... Start Date: 09/21/21 Stop Date: 09/28/21 Status: Ordered selenium sulfide 2.5% topical lotion See Instructions, APPLY TOPICALLY TO AFFECTED AREA EVERY DAY FOR 7 DAYS, # 120 mL, 3 Refills, Soft Stop, 04/26/21 18:07:00 EST, [id number], APPLY TOPICALLY TO AFFECTED AREA EVERY DAY FOR 7DAYS, 155, cm, 04/18/21 10:12:00 EST, Height, 95.9,... Start Date: 04/26/21 Status: Ordered tiZANidine 2 mg oral tablet 1, tablet, By Mouth, 3 times a day, # 60 tablet, Refills 0, Route to Pharmacy Electronically, [id number], 155, cm, 05/03/21 14:39:00 EST, Height, 95.9, kg, 12/05/20 10:08:00 EDT, Dry Weight Start Date: 05/09/21 Status: Ordered traMADol 50 mg oral tablet 1 tablet = 50 mg, By Mouth, Every 8 hours, PRN Pain , Severe, for 7 days, for 09/22/21, # 21 tablet,0 Refills, Acute 09/28/21 7:19:00 EDT, 09/21/21 7:19:00 EDT, Tablet, [facility], Partial fill upon patient request if the prescript... Start Date: 09/21/21 Stop Date: 09/28/21 Status: Ordered Problem List Condition Effective Dates [...]
--- OUTSIDE RECORDS SUMMARY | 2022-11-03 10:36 | XMS_ITS | Continuity of Care Document ---
Author Name Unknown Organization [facility] Address [address] [place] [id number]- Care Team Providers Care Supervisor Stone Name Role Phone Ilya De Leon MD Primary Care Physician Encounter [facility] [place] Date(s): 06/26/20 - 06/26/[address] [address]- Encounter Diagnosis Psoriasis(Final) - 06/26/20 Discharge Disposition: A-D/C Home Attending Physician: Yazan [...] 01/30/11 Gi lizbeth 1Admin Note: ADMIN BY [employer] 2Admin Note: FLUVIRIN MULTIDOSE ADMINISTERED AT [facility] Medications Cavilon Emollient topical cream 1 application, Topically, 2 times a day, PRN for dry skin, # 454 Gm, 1 Refills, Maintenance, 09/30/19 16:26:00 EDT, Cream, [facility], 1 application Topically 2 times a day,PRN:for dry skin, 158, cm, 08/27/19 13:02:00 EDT, Height, 76, kg... Start Date: 09/30/19 Status: Ordered cetirizine 10 mg oral tablet 1 tablet = 10 mg, By Mouth, Daily, for allergies. Do NOT take with claritin, # 30 tablet, 0 Refills, Maintenance, 04/27/20 14:41:00 EST, Tablet, [facility], Partial fill upon patient request if the prescription is for a schedule II opioi... Start Date: 04/27/20 Stop Date: 05/27/20 Status: Ordered Claritin 10 mg oral tablet 10 mg, 1, tablet, By Mouth, Daily, # 15 tablet, Refills 3, Tot. Refills 3, Maintenance, 11/06/18 8:33:38 EDT, Route to Pharmacy Electronically, [id number][facility]: 11/06/18 Status: Ordered Dovonex 0.005% topical cream 1 applicator, Topically, 2 times a day, # 60 Gm, 5 Refills, Maintenance, 07/07/19 17:30:00 EDT, [facility] 3, 1 applicator Topically 2 times a [...] Gm, 0 Refills, Maintenance, 04/27/20 14:35:00 EST, [place], [facility], Partial fill upon patient request if theprescription is for a schedule II opioid drug., 1... Start Date: 04/27/20 Stop Date: 05/27/20 Status: Ordered hydrocortisone 1% topical cream 1 application, Topically, 2 times a day, Apply to rash areas, # 60 Gm, 3 Refills, Maintenance, 06/04/19 14:52:00 EDT, Cream, [facility], 1 application Topically 2 times [...] 0 Refills, Soft Stop, 05/31/20 15:38:00 EDT, [id number], 158, cm, 05/27/20... Start Date: 05/31/20 Status: Ordered Medrol Dosepak 4 mg oral tablet per label intructions, By Mouth, Once, as on label, # 1 each, 0 Refills, Soft Stop, 08/11/19 20:08:00 EDT, [facility], 158, cm, 12/24/18 10:25:00 [...] 10 Refills, Soft Stop, 05/13/20 11:05:00 EST, [facility], 1 applicator Topically 3x per week, 158, cm, 05/10/20 11:36:00 EST, Height, 76, kg, 04/12/19 15:31:00 EST, Dry Weight Start Date: 05/13/20 Status: Ordered oxyCODONE 5 mg oral tablet 5 mg, 1, tablet, By Mouth, Every 6 hours, PRN, # 4 tablet, Refills 0, Tot. Refills 0, Maintenance, Pain , Severe, 06/26/20 10:50:00 EDT, Route to Pharmacy Electronically, [facility], Partial fill upon patient request if the prescription... Start Date: 06/26/20 Status: Ordered permethrin 5% topical cream 1 application, Topically, Once, to skin head to feet, remove by washing after 8 to 14 hours, # 60 Gm, 0 Refills, Soft Stop, 08/08/18 15:08:37 EDT, Cream Start Date: 08/08/18 Status: Ordered predniSONE 5 mg oral tablet See Instructions, 3 tablet by mouth daily for 3 days, 2 tablets by mouth for 4 days, 1 tablet by mouth for 5 days, # 22 capsule, 0 Refills, Maintenance, 06/26/20 10:47:00 EDT, Tablet, [facility], Partial fill upon patient request if the... Start Date: 06/26/20 Status: Ordered predniSONE 5 mg oral tablet See Instructions, 2 tablets daily for 5 days then 1 daily for 5 days then stop, # 15 tablet, 0 Refills, Maintenance, 06/23/20 13:21:00 EDT, [id number], Partial fill upon patient request if the prescription is for a schedule II opioid drug., 15... Start Date: 06/23/20 Status: Ordered selenium sulfide 2.5% topical lotion See Instructions, APPLY TOPICALLY TO AFFECTED AREA EVERY DAY FOR 7 DAYS, # 120 mL, 3 Refills, Maintenance, [facility], 7, APPLY TOPICALLY TO AFFECTED AREA EVERY DAY FOR 7 DAYS, 158, cm, 05/10/20 11:36:00 EST, Height, 76, kg, 04/12/19 15:31:00 E... Start Date: 05/21/20 Status: Ordered selenium sulfide 2.5% topical lotion See Instructions, APPLY TOPICALLY TO AFFECTED AREA EVERY DAY FOR 7 DAYS, # 120 mL, 3 Refills, Maintenance, [facility], 7, APPLY TOPICALLY TO AFFECTED AREA EVERY DAY FOR 7 DAYS, 158, cm, 08/27/19 13:02:00 EDT, Height, 76, kg, 04/12/19 15:31:00 E... Start Date: 03/01/20 Status: Ordered Shingrix intramuscular injection = 0.5 mL, Intramuscular, Once, repeat dose in 2 to 6 months, # 2 each, 0 Refills, Soft Stop, 05/27/20 11:03:00 EDT, Powder, [facility], Partial fill upon patient request if the [...] 1 Refills, Maintenance, 03/10/20 18:21:00 EST, Cream, [facility], Partial fill upon patient request [...] 0 Refills, Maintenance, 04/06/19 20:19:00 EST, Tablet, [facility], 158, cm, 12/24/18 10:25:00 [...] to oldest [Reference Range]: 1 2 Weight 97.5 kg (06/26/20 10:44 AM) 97.5 kg (06/26/20 9:51 AM) Oxygen Saturation [94-100 %] 100 % (06/26/20 9:51 AM) 100 % (06/26/20 9:44 AM) Pulse Rate [55-90 bpm] 79 bpm (06/26/20 9:51 AM) 110 bpm *H* (06/26/20 9:44 AM) Blood Pressure [90-138/55-84 mm Hg] 137/ 86mm Hg (06/26/20 9:51 AM) Respiratory Rate [16-30 br/min] 18 br/mi n (06/26/20 9:51 AM) Temperature [96.8-100.4 DegF] 98.4 DegF (06/26/20 9:51 AM) Mode of Delivery (Oxygen) Room air (06/26/20 9:51 AM) Room air (06/26/20 9:44 AM) Blood pressure sites Arm, right (06/26/20 9:51 AM) Temperature Route Oral (06/26/20 9:51 AM) Dry Weight 97.5 kg (06/26/20 10:44 AM) 97.5 kg (06/26/20 9:51 AM) Weight Obtained Via Standing scale (06/26/20 9:51 AM) Dry Weight Obtained Via Standing scale (06/26/20 9:51 AM) Social History Social History Type Response Tobacco Use: 4 or less cigar ettes(less than 1/4 pack)/day in last 30 days. Sex
--- OUTSIDE RECORDS SUMMARY | 2022-11-03 10:36 | XMS_ITS | Continuity of Care Document ---
Author Name Unknown Organization [facility] Address [address] [place] [id number]- Care Team Providers Care Clinical Resource Manager Name Role Phone Ilya De Leon MD Primary Care Physician [place] [facility] [place] 07[place]20 [facility]/[address] [address]- Attending Physician: Alisia Cabrera MD Admitting Physician: Alisia Cabrera MD Referring Physician: Ilya De Leon MD [...] Gi lizbeth 1Admin Note: ADMIN BY [facility] 2Admin Note: FLUVIRIN MULTIDOSE ADMINISTERED AT [facility] Medications Cavilon Emollient topical cream 1 application, Topically, 2 times a day, PRN for dry skin, # 454 Gm, 1 Refills, Maintenance, 09/30/19 16:26:00 EDT, Cream, [facility], 1 application Topically 2 times a day,PRN:for dry skin, 158, cm, 08/27/19 13:02:00 EDT, Height, 76, kg... Start Date: 09/30/19 Status: Ordered cetirizine 10 mg oral tablet 1 tablet = 10 mg, By Mouth, Daily, for allergies. Do NOT take with claritin, # 30 tablet, 0 Refills, Maintenance, 04/27/20 14:41:00 EST, Tablet, [facility], Partial fill upon patient request if the prescription is for a schedule II opioi... Start Date: 04/27/20 Stop Date: 05/27/20 Status: Ordered Claritin 10 mg oral tablet 10 mg, 1, tablet, By Mouth, Daily, # 15 tablet, Refills 3, Tot. Refills 3, Maintenance, 11/06/18 8:33:38 EDT, Route to Pharmacy Electronically, [id number], [facility] Start Date: 11/06/18 Status: Ordered Dovonex 0.005% topical cream 1 applicator, Topically, 2 times a day, # 60 Gm, 5 Refills, Maintenance, 07/07/19 17:30:00 EDT, [facility], 1 applicator Topically 2 times a [...] Gm, 0 Refills, Maintenance, 04/27/20 14:35:00 EST, [place], [facility], Partial fill upon patient request if theprescription is for a schedule II opioid drug., 1... Start Date: 04/27/20 Stop Date: 05/27/20 Status: Ordered hydrocortisone 1% topical cream 1 application, Topically, 2 times a day, Apply to rash areas, # 60 Gm, 3 Refills, Maintenance, 06/04/19 14:52:00 EDT, Cream, [facility], 1 application Topically [...] # 42 tablet, 0 Refills, Soft Stop, 07/07/20 13:01:00 EDT, [facility], 158, cm, 06/23/20 13:26:00 EDT... Start Date: 07/07/20 Status: Ordered Methadone By Mouth, 0 Refills, Maintenance Start Date: 12/25/11 Status: Ordered Nizoral 2% topical shampoo See Instructions, 1 applicator Topically 3x per week, # 120 mL, 10 Refills, Soft Stop, 05/13/20 11:05:00 EST, [facility], 1 applicator Topically 3x per week, 158, cm, 05/10/20 11:36:00 EST, Height, 76, kg, 04/12/19 15:31:00 EST, Dry Weight Start Date: 05/13/20 Status: Ordered oxyCODONE 5 mg oral tablet 5 mg, 1, tablet, By Mouth, Every 6 hours, PRN, # 4 tablet, Refills 0, Tot. Refills 0, Maintenance, Pain , Severe, 06/26/20 10:50:00 EDT, Route to Pharmacy Electronically, [facility] 3, Partial fill upon patient request if the prescription... Start Date: 06/26/20 Status: Ordered permethrin 5% topical cream 1 application, Topically, Once, to skin head to feet, remove by washing after 8 to 14 hours, # 60 Gm, 0 Refills, Soft Stop, 08/08/18 15:08:37 EDT, Cream Start Date: 08/08/18 Status: Ordered predniSONE 5 mg oral tablet See Instructions, 1 daily for 14 days then stop, # 14 tablet, 0 Refills, Maintenance, 07/13/20 11:13:00 EDT, [facility] 3, Partial fill upon patient request if the prescription is for a schedule II opioid drug., 158, cm, 06/23/20 13:26:00... Start Date: 07/13/20 Status: Ordered selenium sulfide 2.5% topical lotion See Instructions, APPLY TOPICALLY TO AFFECTED AREA EVERY DAY FOR 7 DAYS, # 120 mL, 3 Refills, Maintenance, [facility], 7, APPLY TOPICALLY TO AFFECTED AREA EVERY DAY FOR 7 DAYS, 158, cm, 06/23/20 13:26:00 EDT, Height, 91, kg, 07/01/20 13:48:00 E... Start Date: 07/13/20 Status: Ordered Shingrix intramuscular injection = 0.5 mL, Intramuscular, Once, repeat dose in 2 to 6 months, # 2 each, 0 Refills, Soft Stop, 05/27/20 11:03:00 EDT, Powder, [facility], Partial fill upon patient request [...] 1 Refills, Maintenance, 03/10/20 18:21:00 EST, Cream, [facility], Partial fill upon patient [...] 0 Refills, Maintenance, 04/06/19 20:19:00 EST, Tablet, [facility], 158, cm, 12/24/18 10:25:00 EDT, Height, [...] 02/14/13 Social History Social History Type Response Tobacco Use: 4 or less cigar ettes(less than 1/4 pack)/day in last 30 days. Sex
--- OUTSIDE RECORDS SUMMARY | 2022-11-03 10:36 | XMS_ITS | Continuity of Care Document ---
Author Name Unknown Organization [facility] Address [address] [place] [address]- Care Team Providers Care Land Leasing Examiner Name Role Phone Ilya De Leon MD Primary Care Physician Encounter [facility] Date(s): 09/18/22 - 10/18/22 [facility]/[address] [address]- [place] Allergies, Adverse Reactions, Alerts Substance Reaction Severity Status penicillin Rash Active Reglan Agitated Active Imitrex Chest pain Active aspirin Ibuprofen tight throat Rash Active morphine HAND SWELLING Active Toradol Rash Active Motrin tight throat Rash Active Compazine throat swells Active trimethoprim-sulfamethoxazole [...] Maintenance, 06/29/21 15:10:00 EDT, ER Tablet, [id number], Partial fill upon patient request if the prescription is for a schedule II opioid drug., 155, cm, 05/30/21 15:34:... Start Date: 06/29/21 Status: Ordered Cavilon Emollient topical cream 1 application, Topically, 2 times a day, PRN for dry skin, # 454 Gm, 1 Refills, Maintenance, 09/30/19 16:26:00 EDT, Cream, [facility], 1 application Topically 2 times a day,PRN:for dry skin, 158, cm, 08/27/19 13:02:00 EDT, Height, 76, kg... Start Date: 09/30/19 Status: Ordered Cavilon Emollient topical cream 1 application, Topically, 2 times a day, PRN for dry skin, # 454 Gm, 3 Refills, Maintenance, 09/19/22 11:12:00 EDT, Cream, [facility], 1 application Topically 2 times a day,PRN:for dry skin, 155, cm, 09/04/22 10:17:00 EDT, Height,... Start Date: 09/19/22 Status: Ordered cetirizine 10 mg oral tablet, chewable 1 tablet = 10 mg, By Mouth, Daily, PRN for allergy symptoms, # 12 tablet, 4 Refills, Maintenance, 09/04/22 10:28:00 EDT, Chew Tablet, [facility], Partial fill upon patient request ifthe prescription is for a schedule II opioid drug.,... Start Date: 09/04/22 Stop Date: 10/24/22 Status: Ordered cholecalciferol 1000 intl units oral capsule 1 capsule = 25 mcg, By Mouth, Daily, vitamin D, # 100 capsule, 3 Refills, Maintenance, 07/24/22 13:10:00 EDT, Capsule, [facility]/pharmacy #[id number], Partial fill upon patient request if the prescription is fora schedule II opioid drug., 155, cm, 07/17/22 9:50:... Start Date: 07/24/22 Status: Ordered clonazePAM 0.5 mg oral tablet 1 tablet = 0.5 mg, By Mouth, 2 times a day, Increaseddose July weekly on Fridays for 4 weeks starting on 10/05, # 14 tablet, 3 Refills, Maintenance, 10/04/22 8:15:00 EDT, Tablet, [facility], PUNCH OPERATOR reviewed, covering for Dr. De Leon, 15... Start Date: 10/04/22 Stop Date: 11/01/22 Status: Ordered clonazePAM 0.5 mg oral tablet 1 tablet = 0.5 mg, By Mouth, 2 times a day, Increaseddose July weekly on Fridays for 3 weeks starting on 07/21, # 14 tablet, 2 Refills, Maintenance, 07/19/22 12:38:00 EDT, Tablet, [facility], PUNCH OPERATOR reviewed, covering for Dr. De Leon, 1... Start Date: 07/19/22 Stop Date: 08/09/22 Status: Ordered Dovonex 0.005% topical cream 1 applicator, Topically, 2 times a day, # 60 Gm, 5 Refills, Maintenance, 05/24/22 12:41:00 EDT, [facility], 1 applicator Topically 2 times a day,x30 days, 155, cm, 01/23/22 14:00:00 EST, Height, 106.5, kg, 09/14/21 9:38:00 EDT, Dry... Start Date: 05/24/22 Stop Date: 11/20/22 Status: Ordered Eucerin Unscented topical lotion See Instructions, apply as frequently as needed, # 1 each, 3 Refills, Maintenance, 09/19/22 11:12:00 EDT, [facility], Partial fill upon patient request if the prescription is for a schedule II opioid drug., apply as frequently as n... Start Date: 09/19/22 Status: Ordered Eucerin Unscented topical lotion See Instructions, apply as frequently as needed, # 1 each, 0 Refills, Maintenance, 09/28/21 12:23:00 EDT, [facility], Partial fill upon patient request if the prescription is for a schedule II opioid drug., apply as frequently as n... Start Date: 09/28/21 Status: Ordered fluticasone 50 mcg/inh nasal spray 1 sprays, Nares, Both, 2 times a day, in each nostril. for allergies, # 16 Gm, 0 Refills, Maintenance, 04/27/20 14:35:00 EST, [place], [facility] 3, Partial fill upon patient request if theprescription is for a schedule II opioid drug., 1... Start Date: 04/27/20 Stop Date: 05/27/20 Status: Ordered halobetasol 0.05% topical ointment See Instructions, APPLY A THIN FILM TO THE AFFECTED SKIN AND RUB IN GENTLY AND COMPLETELY TWICE A DAY, # 50 Gm, 0 Refills, Maintenance, 09/12/22 13:49:00 EDT, [facility]/pharmacy #[id number], 30, APPLY A THIN FILM TO THE AFFECTED SKIN AND RUB IN GENTLY AND COMPLET... Start Date: 09/12/22 Status: Ordered halobetasol 0.05% topical ointment See Instructions, APPLY A THIN FILM TO THE AFFECTED SKIN AND RUB IN GENTLY AND COMPLETELY TWICE A DAY, # 50 Gm, 3 Refills, Maintenance, 09/19/22 11:12:00 EDT, [facility], 30, APPLY A THIN FILM TO THE AFFECTED SKIN AND RUB IN GENTLY... Start Date: 09/19/22 Status: Ordered ketoconazole 2% topical shampoo See Instructions, APPLY 1 APPLICATOR TOPICALLY 3X PER WEEK, # 120 mL, 3 Refills, Maintenance, 05/16/22 8:48:00 EST, [id number], 30, APPLY 1 APPLICATOR TOPICALLY 3X PER WEEK, 155, cm, 01/23/22 14:00:00 EST, Height, 106.5, kg, 09/14/21 9:38:00 EDT,... Start Date: 05/16/22 Status: Ordered loratadine 10 mg oral tablet 1, tablet, By Mouth, Daily, # 30 tablet, Refills 5, Tot. Refills 5, Maintenance, 07/04/22 8:39:00 EDT, Route to Pharmacy Electronically, [facility]/pharmacy #[id number], 155, cm, 01/23/22 14:00:00 EST, Height, 106.5, kg, 09/14/21 9:38:00 EDT, Dry Weight Start Date: 07/04/22 Status: Ordered Methadone By Mouth, 0 Refills, Maintenance Start Date: 12/25/11 Status: Ordered mupirocin 2% topical cream 1 application, Topically, 3 times a day, # 30 Gm, 2 Refills, Maintenance, 03/08/21 10:26:00 EST, Cream, [facility]/pharmacy #[id number], Partial fill upon patient request if the prescription is for a schedule II opioid drug., 1 application Topically 3 times a day,... Start Date: 03/08/21 Status: Ordered permethrin 5% topical cream 1 application, Topically, Once, to skin head to feet, remove by washing after 8 to 14 hours, # 60 Gm, 0 Refills, Soft Stop, 07/27/20 11:50:00 EDT, Cream, [facility], 1 applicationTopically Once,Instr:to skin head to feet, remove b... Start Date: 07/27/20 Status: Ordered predniSONE 5 mg oral tablet See Instructions, Starting next refill increase to 4 tablets daily, # 28 tablet, 3 Refills, Maintenance, 10/04/22 8:15:00 EDT, [facility], Partial fill upon patient request if theprescription is for a schedule II opioid drug., 155... Start Date: 10/04/22 Status: Ordered selenium sulfide 2.5% topical lotion See Instructions, APPLY TOPICALLY TO AFFECTED AREA EVERY DAY FOR 7 DAYS, # 120 mL, 3 Refills, Soft Stop, 10/26/21 15:43:00 EDT, [facility], 7, APPLY TOPICALLY TO AFFECTED AREA EVERY DAY FOR 7 DAYS, 155, cm, 09/28/21 12:06:00 EDT, H... Start Date: 10/26/21 Status: Ordered simvastatin 20 mg oral tablet 20 mg, 1, tablet, By Mouth, Daily at bedtime, for cholesterol, # 30 tablet, Refills 5, Tot. Refills5, Maintenance, 07/24/22 13:12:00 EDT, Route to Pharmacy Electronically, [facility]/pharmacy #[id number], Partial fill upon patient request if the prescription is f... Start Date: 07/24/22 Status: Ordered traMADol 50 mg oral tablet 1 tablet = 50 mg, By Mouth, Every 8 hours, PRN Pain , Severe, for 7 days, 4May fill 10/05/22 and weekly on Fridays for 4 weeks, # 21 tablet, 3 Refills, Acute 11/01/22 8:14:00 EDT, 10/04/22 8:14:00 EDT, Tablet, [facility], Partial fi... Start Date: 10/04/22 Stop Date: 8/23/23 Status: Ordered Problem List Condition Confirmation Course [...] Personnel Name: Ilya De Leon MD Position: [facility] Physician - Primary Care Member Role: PCP Address: Address: [address] [place] [id number]- Care Team Related Persons Name: JD ALVAREZ Address: [address] [address]
--- OUTSIDE RECORDS SUMMARY | 2022-11-03 10:36 | XMS_ITS | Continuity of Care Document ---
Author Name Unknown Organization [facility] Address Unknown Care Team Providers Care Imaging System Administrator Name Role Phone Haley NEWMAN, Ilya Primary Care Physician Encounter [facility] Date(s): 04/29/21 - 05/29/21 [facility] Allergies, Adverse Reactions, Alerts Substance Reaction [...] 1 Refills, Maintenance, 09/30/19 16:26:00 EDT, Cream, [facility], 1 application Topically 2 times a day,PRN:for dry skin, 158, cm, 08/27/19 13:02:00 EDT, Height, 76, kg... Start Date: 09/30/19 Status: Ordered Claritin 10 mg oral tablet 10 mg, 1, tablet, By Mouth, Daily, # 15 tablet, Refills 3, Tot. Refills 3, Maintenance, 05/03/21 15:42:00 EST, Route to Pharmacy Electronically, [facility]/pharmacy #[id number], 155, cm, 05/03/21 14:39:00 EST, Height, 95.9, kg, 12/05/20 10:08:00 EDT, Dry Weight Start Date: 05/03/21 Status: Ordered clonazePAM 0.5 mg oral tablet 1 tablet = 0.5 mg, By Mouth, Daily, # 7 tablet, 0 Refills, Maintenance, 05/23/21 8:38:00 EDT, Tablet, [facility]/pharmacy #[id number], HOT MOLDER reviewed, covering for Dr. De Leon, 155, cm, 05/03/21 14:39:00 EST, Height, 95.9, kg, 12/05/20 10:08:00 EDT, Dry Weight Start Date: 05/23/21 Stop Date: 05/30/21 Status: Ordered Dovonex 0.005% topical cream 1 applicator, Topically, 2 times a day, # 60 Gm, 5 Refills, Maintenance, 07/07/19 17:30:00 EDT, [facility], 1 applicator Topically 2 times a day,x30 days, 158, cm, 12/24/18 10:25:00 EDT, Height, 76, kg, 04/12/19 15:31:00 EST, Dry Weight Start Date: 07/07/19 Stop Date: 01/03/20 Status: Ordered fluticasone 50 mcg/inh nasal spray 1 sprays, Nares, Both, 2 times a day, in each nostril. for allergies, # 16 Gm, 0 Refills, Maintenance, 04/27/20 14:35:00 EST, [place], [facility], Partial fill upon patient request if theprescription is for a schedule II opioid drug., 1... Start Date: 04/27/20 Stop Date: 05/27/20 Status: Ordered furosemide 20 mg oral tablet 1, tablet, By Mouth, Daily, # 30 tablet, Refills 3, Tot. Refills 3, Maintenance, 04/18/21 12:11:00 EST, Route to Pharmacy Electronically, [facility]/pharmacy #[id number], 155, cm, 04/18/21 10:12:00 EST, Height, 95.9, kg, 12/05/20 10:08:00 EDT, Dry Weight Start Date: 04/18/21 Status: Ordered halobetasol 0.05% topical ointment See Instructions, APPLY A THIN FILM TO THE AFFECTED SKIN AND RUB IN GENTLY AND COMPLETELY TWICE A DAY, # 50 Gm, 1 Refills, [id number], 30, APPLY A THIN FILM TO THE AFFECTED SKIN AND RUB IN GENTLY AND COMPLETELY TWICE A DAY, 155, cm, 12/05/20 10:0... Start Date: 03/15/21 Status: Ordered ketoconazole 2% topical shampoo See Instructions, APPLY 1 APPLICATOR TOPICALLY 3X PER WEEK, # 120 mL, 3 Refills, [id number], 30, APPLY 1 APPLICATOR TOPICALLY 3X PER WEEK, 155, cm, 03/17/21 7:53:00 EST, Height, 95.9, kg, 12/05/20 10:08:00 EDT, Dry Weight Start Date: 03/21/21 Status: Ordered Methadone By Mouth, 0 Refills, Maintenance Start Date: 12/25/11 Status: Ordered mupirocin 2% topical cream 1 application, Topically, 3 times a day, # 30 Gm, 2 Refills, Maintenance, 03/08/21 10:26:00 EST, Cream, [facility]/pharmacy #[id number], Partial fill upon patient request if the prescription is for a schedule II opioid drug., 1 application Topically 3 times a day,... Start Date: 03/08/21 Status: Ordered permethrin 5% topical cream 1 application, Topically, Once, to skin head to feet, remove by washing after 8 to 14 hours, # 60 Gm, 0 Refills, Soft Stop, 07/27/20 11:50:00 EDT, Cream, [facility], 1 applicationTopically Once,Instr:to skin head to feet, remove b... Start Date: 07/27/20 Status: Ordered predniSONE 10 mg oral tablet 1 tablet, By Mouth, Daily, # 14 tablet, 0 Refills, [id number], 155, cm, 05/03/21 14:39:00 EST,Height, 95.9, kg, 12/05/20 10:08:00 EDT, Dry Weight Start Date: 05/25/21 Status: Ordered selenium sulfide 2.5% topical lotion See Instructions, APPLY TOPICALLY TO AFFECTED AREA EVERY DAY FOR 7 DAYS, # 120 mL, 3 Refills, Soft Stop, 04/26/21 18:07:00 EST, [facility]/pharmacy #[id number], 7, APPLY TOPICALLY TO AFFECTED AREA EVERY DAY FOR 7DAYS, 155, cm, 04/18/21 10:12:00 EST, Height, 95.9,... Start Date: 04/26/21 Status: Ordered tiZANidine 2 mg oral tablet 1, tablet, By Mouth, 3 times a day, # 60 tablet, Refills 0, Route to Pharmacy Electronically, [id number], 155, cm, 05/03/21 14:39:00 EST, Height, 95.9, kg, 12/05/20 10:08:00 EDT, Dry Weight Start Date: 05/09/21 Status: Ordered Problem List Condition Effective Dates Status Health Status Inform ant Anxiety(Confirmed) Active Opioid type dependence, continuous(Confirmed) 1 Active Osteoarthritis of left knee(Confirmed) Active Psoriasis(Confirmed) Active Severe obesity(Confirmed) Active 1Client had been seen by Jazz Francois at [facility]. Client has no-showed to last appt and today.She will be targetted for closing if she does not responde to correspondence that will be sent on 02/14/13 Social History Social History Type Response Smoking Status 10 or more cigarette s (1/2 pack or more)/day in last 30 days entered on: 04/18/21 Sex
--- OUTSIDE RECORDS SUMMARY | 2022-11-03 10:37 | XMS_ITS | Continuity of Care Document ---
Author Name Unknown Organization [facility] Address Unknown Care Team Providers Care Merchant Mariner Name Role Phone Ilya De Leon MD Primary Care Physician Encounter [facility] Date(s): 04/13/21 - 05/14/21 [facility] Attending Physician: Ilya De Leon MD Admitting [...] 01/30/11 Gi lizbeth 1Admin Note: ADMIN BY [facility] 2Admin Note: FLUVIRIN MULTIDOSE ADMINISTERED AT [facility] Medications Cavilon Emollient topical cream 1 application, Topically, 2 times a day, PRN for dry skin, # 454 Gm, 1 Refills, Maintenance, 09/30/19 16:26:00 EDT, Cream, [facility], 1 application Topically [...] tablet = 0.5 mg, By Mouth, Daily, may fill 05/02, # 14 tablet, 0 Refills, Maintenance, 05/01/21 3:37:00 EST, Tablet, [facility]/pharmacy #[id number], FLARE WORKER reviewed, covering for Dr. De Leon, 155, cm, 04/18/21 10:12:00 EST, Height, 95.9, kg, 12/05/20 10:08:00 EDT,... Start Date: 05/01/21 Stop Date: 05/15/21 Status: Ordered Dovonex 0.005% topical cream 1 applicator, Topically, 2 times a day, # 60 Gm, 5 Refills, Maintenance, 07/07/19 17:30:00 EDT, [facility], 1 applicator Topically 2 times a day,x30 days, 158, cm, 12/24/18 10:25:00 EDT, Height, 76, kg, 04/12/19 15:31:00 EST, Dry Weight Start Date: 07/07/19 Stop Date: 01/03/20 Status: Ordered fluticasone 50 mcg/inh nasal spray 1 sprays, Nares, Both, 2 times a day, in each nostril. for allergies, # 16 Gm, 0 Refills, Maintenance, 04/27/20 14:35:00 EST, [place], [facility], Partial fill upon [...] A DAY, # 50 Gm, 1 Refills, [id number], 30, APPLY A THIN FILM TO THE AFFECTED SKIN AND RUB IN GENTLY AND COMPLETELY TWICE A DAY, 155, cm, 12/05/20 10:0... Start Date: 03/15/21 Status: Ordered ketoconazole 2% topical shampoo See Instructions, APPLY 1 APPLICATOR TOPICALLY 3X PER WEEK, # 120 mL, 3 Refills, [id number], 30, APPLY 1 APPLICATOR TOPICALLY 3X PER [...] Refills, Soft Stop, 07/27/20 11:50:00 EDT, Cream, [facility], 1 applicationTopically Once,Instr:to skin head to feet, remove b... Start Date: 07/27/20 Status: Ordered predniSONE 10 mg oral tablet 1 tablet = 10 mg, By Mouth, Daily, may fill 05/02/21, # 14 tablet, 0 Refills, Maintenance, 05/01/21 3:37:00 EST, [facility]/pharmacy #[id number], Partial fill upon patient request if the prescription is for a schedule II opioid drug., 155, cm, 04/18/21 10:12:00 EST... Start Date: 05/01/21 Stop Date: 05/15/21 Status: Ordered selenium sulfide 2.5% topical lotion [...] to Pharmacy Electronically, [id number], 155, cm, 05/03/21 14:39:00 EST, Height, 95.9, kg, 12/05/20 10:08:00 EDT, Dry Weight Start Date: 05/09/21 Status: Ordered Problem List Condition Effective Dates Status Health Status Inform ant Anxiety(Confirmed) Active Opioid type dependence, continuous(Confirmed) 1 Active Osteoarthritis of left knee(Confirmed) Active Psoriasis(Confirmed) Active Severe obesity(Confirmed) Active 1Client had been seen by Jazz Francois at [facility]. Client has no-showed to last appt and today.She will be targetted for closing if she does not responde to correspondence that will be sent on 02/14/13 Social History Social History Type Response Smoking Status 10 or more cigarette s (1/2 pack or more)/day in last 30 days entered on: 04/18/21 Sex
--- OUTSIDE RECORDS SUMMARY | 2022-11-03 10:37 | XMS_ITS | Continuity of Care Document ---
Author Name Unknown Organization [facility] Address [address] [place] [address]- Care Team Providers Care Project Management Advisor Name Role Phone Ilya De Leon MD Primary Care Physician Encounter [facility] [place] Date(s): 08/10/22 - 09/09/22 [facility]/[address] [address]- [place] Allergies, Adverse Reactions, Alerts Substance Reaction [...] 02/06/10 Garrett rded 1Admin Note: ADMIN BY [facility] 2Admin Note: FLUVIRIN MULTIDOSE ADMINISTERED AT [facility] Medications acetaminophen 650 mg oral tablet, extended release 2 tablet = 1,300 mg, By Mouth, Every 8 hours, # 100 tablet, 1 Refills, Maintenance, 06/29/21 15:10:00 EDT, ER Tablet, [id number], Partial fill upon patient request if the prescription is for a schedule II opioid drug., 155, cm, 05/30/21 15:34:... Start Date: 06/29/21 Status: Ordered Cavilon Emollient topical cream 1 application, Topically, 2 times a day, PRN for dry skin, # 454 Gm, 1 Refills, Maintenance, 09/30/19 16:26:00 EDT, Cream, [facility], 1 application Topically 2 times a day,PRN:for dry skin, 158, cm, 08/27/19 13:02:00 EDT, Height, 76, kg... Start Date: 09/30/19 Status: Ordered cetirizine 10 mg oral tablet, chewable 1 tablet = 10 mg, By Mouth, Daily, PRN for allergy symptoms, # 12 tablet, 4 Refills, Maintenance, 09/04/22 10:28:00 EDT, Chew Tablet, [facility], Partial fill upon patient request ifthe prescription is for a schedule II opioid drug.,... Start Date: 09/04/22 Stop Date: 10/24/22 Status: Ordered cholecalciferol 1000 intl units oral capsule 1 capsule = 25 mcg, By Mouth, Daily, vitamin D, # 100 capsule, 3 Refills, Maintenance, 07/24/22 13:10:00 EDT, Capsule, [facility]/pharmacy #[id number], Partial fill upon patient request if the prescription is fora schedule II opioid drug., 155, cm, 07/17/22 9:50:... Start Date: 07/24/22 Status: Ordered clonazePAM 0.5 mg oral tablet 1 tablet = 0.5 mg, By Mouth, 2 times a day, Increaseddose May weekly on Fridays for 4 weeks starting on 09/07, # 14 tablet, 3 Refills, Maintenance, 09/06/22 14:07:00 EDT, Tablet, [facility], [facility] reviewed, covering for Dr. De Leon, 1... Start Date: 09/06/22 Stop Date: 10/04/22 Status: Ordered clonazePAM 0.5 mg oral tablet 1 tablet = 0.5 mg, By Mouth, 2 times a day, Increaseddose May weekly on Fridays for 3 weeks starting on 07/21, # 14 tablet, 2 Refills, Maintenance, 07/19/22 12:38:00 EDT, Tablet, [facility], [facility] reviewed, covering for Dr. De Leon, 1... Start Date: 07/19/22 Stop Date: 08/09/22 Status: Ordered Dovonex 0.005% topical cream 1 applicator, Topically, 2 times a day, # 60 Gm, 5 Refills, Maintenance, 05/24/22 12:41:00 EDT, [facility], 1 applicator Topically 2 times a day,x30 days, 155, cm, 01/23/22 14:00:00 EST, Height, 106.5, kg, 09/14/21 9:38:00 EDT, Dry... Start Date: 05/24/22 Stop Date: 11/20/22 Status: Ordered Eucerin Unscented topical lotion See Instructions, apply as frequently as needed, # 1 each, 0 Refills, Maintenance, 09/28/21 12:23:00 EDT, [facility], Partial fill upon patient request if the prescription is for a schedule II opioid drug., apply as frequently as n... Start Date: 09/28/21 Status: Ordered fluticasone 50 mcg/inh nasal spray 1 sprays, Nares, Both, 2 times a day, in each nostril. for allergies, # 16 Gm, 0 Refills, Maintenance, 04/27/20 14:35:00 EST, [place], [facility] 3, Partial fill upon patient request if theprescription is for a schedule II opioid drug., 1... Start Date: 04/27/20 Stop Date: 05/27/20 Status: Ordered halobetasol 0.05% topical ointment See Instructions, APPLY A THIN FILM TO THE AFFECTED SKIN AND RUB IN GENTLY AND COMPLETELY TWICE A DAY, # 50 Gm, 1 Refills, Maintenance, 07/17/22 10:18:00 EDT, [facility], 30, APPLY A THIN FILM TO THE AFFECTED SKIN AND RUB IN GENTLY... Start Date: 07/17/22 Status: Ordered ketoconazole 2% topical shampoo See Instructions, APPLY 1 APPLICATOR TOPICALLY 3X PER WEEK, # 120 mL, 3 Refills, Maintenance, 05/16/22 8:48:00 EST, [id number], 30, APPLY 1 APPLICATOR TOPICALLY 3X PER WEEK, 155, cm, 01/23/22 14:00:00 EST, Height, 106.5, kg, 09/14/21 9:38:00 EDT,... Start Date: 05/16/22 Status: Ordered loratadine 10 mg oral tablet 1, tablet, By Mouth, Daily, # 30 tablet, Refills 5, Tot. Refills 5, Maintenance, 07/04/22 8:39:00 EDT, [id number], 155, cm, 01/23/22 14:00:00 EST, Height, 106.5, kg, 09/14/21 9:38:00 EDT, Dry Weight Start Date: 07/04/22 Status: Ordered Methadone By Mouth, 0 Refills, Maintenance Start Date: 12/25/11 Status: Ordered mupirocin 2% topical cream 1 application, Topically, 3 times a day, # 30 Gm, 2 Refills, Maintenance, 03/08/21 10:26:00 EST, Cream, [id number], Partial fill upon patient request if the prescription is for a schedule II opioid drug., 1 application Topically 3 times a day,... Start Date: 03/08/21 Status: Ordered permethrin 5% topical cream 1 application, Topically, Once, to skin head to feet, remove by washing after 8 to 14 hours, # 60 Gm, 0 Refills, Soft Stop, 07/27/20 11:50:00 EDT, Cream, [facility], 1 applicationTopically Once,Instr:to skin head to feet, remove b... Start Date: 07/27/20 Status: Ordered predniSONE 5 mg oral tablet See Instructions, latest dosage 15 mg daily, now to take 5mg tablet, 3 daily. May fill Fridays starting 09/07/22, # 21 tablet, 3 Refills, Maintenance, 09/06/22 14:07:00 EDT, [facility], Partial fill upon patient request if the pres... Start Date: 09/06/22 Status: Ordered selenium sulfide 2.5% topical lotion See Instructions, APPLY TOPICALLY TO AFFECTED AREA EVERY DAY FOR 7 DAYS, # 120 mL, 3 Refills, Soft Stop, 10/26/21 15:43:00 EDT, [facility], 7, APPLY TOPICALLY TO AFFECTED AREA EVERY DAY FOR 7 DAYS, 155, cm, 09/28/21 12:06:00 EDT, H... Start Date: 10/26/21 Status: Ordered simvastatin 20 mg oral tablet 20 mg, 1, tablet, By Mouth, Daily at bedtime, for cholesterol, # 30 tablet, Refills 5, Tot. Refills5, Maintenance, 07/24/22 13:12:00 EDT, Route to Pharmacy Electronically, [facility]/pharmacy #[id number], Partial fill upon patient request if the prescription is f... Start Date: 07/24/22 Status: Ordered traMADol 50 mg oral tablet 1 tablet = 50 mg, By Mouth, Every 8 hours, PRN Pain , Severe, for 7 days, 4May fill 08/11/22 and weekly on Fridays for 4 weeks, # 21 tablet, 3 Refills, Acute 10/06/22 8:49:00 EDT, 09/08/22 8:49:00 EDT,Tablet, [facility], Partial fi... Start Date: 09/08/22 Stop Date: [...] Personnel Name: Ilya De Leon MD Position: [facility] Physician - Primary Care Member Role: PCP Address: Address: [address] [place] [id number]- Care Team Related Persons Name: JD ALVAREZ Address: home [address] [place] [id number]
--- OUTSIDE RECORDS SUMMARY | 2022-11-03 10:37 | XMS_ITS | Continuity of Care Document ---
Author Name Unknown Organization [facility] Address [address] [place] [address]- Care Team Providers Care Grocery Clerk Name Role Phone Ilya De Leon MD Primary Care Physician Encounter [facility] [place] Date(s): 01/03/22 - 02/08/22 [facility]/[address] [address]- Attending Physician: Ilya De Leon MD Admitting Physician: Ilya De Leon MD Allergies, Adverse Reactions, Alerts Substance Reaction Severity Status penicillin Rash Active Reglan Agitated Active trimethoprim-sulfamethoxazole DS 1 Yulya renu Hives 17-MAY-2013 07:29:57<$> Unknown Active Imitrex Chest pain Active aspirin Ibuprofen tight throat Rash Active morphine HAND SWELLING Active Toradol Rash Active Motrin tight throat Rash Active Compazine throat swells Active dehydroepiandrosterone 2 Chest pain Act julienne 1By phone, reported hives and throat locking up after taking doses of Bactrim repeatedly for several days 2DHEA Immunizations Given and Recorded Vaccine Date Status Refusal Reason tetanus/diphtheria/pertussis, acel(Tdap) 02/14/17 Recorded influenza virus vaccine, inactivated 1 03/22/12 Gi lizbeth influenza virus vaccine, inactivated 2 01/30/11 Gi lizbeth 1Admin Note: ADMIN BY [facility] 2Admin Note: FLUVIRIN MULTIDOSE ADMINISTERED AT [facility] Medications acetaminophen 650 mg oral tablet, extended release 2 tablet = 1,300 mg, By Mouth, Every 8 hours, # 100 tablet, 1 Refills, Maintenance, 06/29/21 15:10:00 EDT, ER Tablet, [id number], Partial fill upon patient request if the prescription is for a schedule II opioid drug., 155, cm, 05/30/21 15:34:... Start Date: 06/29/21 Status: Ordered capsaicin 0.025% topical cream See Instructions, APPLY TO AFFECTED AREA TWICE A DAY, # 60 Gm, 1 Refills, [id number], 30, APPLY TO AFFECTED AREA TWICE A DAY, 155, cm, 05/30/21 15:34:00 EDT, Height, 95.9, kg, 12/05/20 10:08:00 EDT, Dry Weight Start Date: 05/31/21 Status: Ordered Cavilon Emollient topical cream 1 application, Topically, 2 times a day, PRN for dry skin, # 454 Gm, 1 Refills, Maintenance, 09/30/19 16:26:00 EDT, Cream, [facility] 3, 1 application Topically 2 times a day,PRN:for dry skin, 158, cm, 08/27/19 13:02:00 EDT, Height, 76, kg... Start Date: 09/30/19 Status: Ordered clonazePAM 0.5 mg oral tablet 1 tablet = 0.5 mg, By Mouth, Daily at bedtime, May fill 02/10/22 and weekly on Fridays for3 weeks, #7 tablet, 2 Refills, Maintenance, 02/07/22 15:55:00 EST, Tablet, [facility], [employer] [facility] reviewed, covering for Dr. De Leon, 155, cm, 01/23... Start Date: 02/07/22 Stop Date: 02/28/22 Status: Ordered coal tar topical 1% lotion See Instructions, applyTopically Daily at bedtime, # 120 mL, 3 Refills, Maintenance, 10/26/21 15:45:00 EDT, [facility], Partial fill upon patient request if the prescription is for a schedule II opioid drug., applyTopically Daily a... Start Date: 10/26/21 Status: Ordered Dovonex 0.005% topical cream 1 applicator, Topically, 2 times a day, # 60 Gm, 5 Refills, Maintenance, 07/07/19 17:30:00 EDT, [facility] 3, 1 applicator Topically 2 times a day,x30 days, 158, cm, 12/24/18 10:25:00 EDT, Height, 76, kg, 04/12/19 15:31:00 EST, Dry Weight Start Date: 07/07/19 Stop Date: 01/03/20 Status: Ordered Eucerin Unscented topical lotion See Instructions, apply as frequently as needed, # 1 each, 0 Refills, Maintenance, 09/28/21 12:23:00 EDT, [facility], Partial fill upon patient request if the prescription is for a schedule II opioid drug., apply as frequently as n... Start Date: 09/28/21 Status: Ordered fluticasone 50 mcg/inh nasal spray 1 sprays, Nares, Both, 2 times a day, in each nostril. for allergies, # 16 Gm, 0 Refills, Maintenance, 04/27/20 14:35:00 EST, [place], [facility] 3, Partial fill upon patient request if theprescription is for a schedule II opioid drug., 1... Start Date: 04/27/20 Stop Date: 05/27/20 Status: Ordered halobetasol 0.05% topical ointment See Instructions, APPLY A THIN FILM TO THE AFFECTED SKIN AND RUB IN GENTLY AND COMPLETELY TWICE A DAY, # 50 Gm, 1 Refills, Maintenance, 10/26/21 15:44:00 EDT, [facility], 30, APPLY A THIN FILM TO THE AFFECTED SKIN AND RUB IN GENTLY... Start Date: 10/26/21 Status: Ordered ketoconazole 2% topical shampoo See Instructions, APPLY 1 APPLICATOR TOPICALLY 3X PER WEEK, # 120 mL, 3 Refills, Maintenance, 12/27/21 19:30:00 EDT, [facility] [id number], 30, APPLY 1 APPLICATOR TOPICALLY 3X PER WEEK, 155, cm, 12/12/21 16:00:00 EDT, Height, 106.5, kg, 09/14/21 9:38:00 EDT... Start Date: 12/27/21 Status: Ordered loratadine 10 mg oral tablet 1, tablet, By Mouth, Daily, # 90 tablet, Refills 1, Tot. Refills 1, Maintenance, 11/01/21 15:19:00 EDT, Route to Pharmacy Electronically, [facility]/pharmacy #[id number], 155, cm, 09/28/21 12:06:00 EDT, Height, 106.5, kg, 09/14/21 9:38:00 EDT, Dry Weight Start Date: 11/01/21 Status: Ordered Methadone By Mouth, 0 Refills, Maintenance Start Date: 12/25/11 Status: Ordered mupirocin 2% topical cream 1 application, Topically, 3 times a day, # 30 Gm, 2 Refills, Maintenance, 03/08/21 10:26:00 EST, Cream, [facility]/pharmacy #[id number], Partial fill upon patient request if the prescription is for a schedule II opioid drug., 1 application Topically 3 times a day,... Start Date: 03/08/21 Status: Ordered permethrin 5% topical cream 1 application, Topically, Once, to skin head to feet, remove by washing after 8 to 14 hours, # 60 Gm, 0 Refills, Soft Stop, 07/27/20 11:50:00 EDT, Cream, [facility], 1 applicationTopically Once,Instr:to skin head to feet, remove b... Start Date: 07/27/20 Status: Ordered predniSONE 10 mg oral tablet See Instructions, May fill 02/10/22 and weekly on Fridays for 3 weeks, # 14 tablet, 2 Refills, 02/07/22 15:55:00 EST, [facility], 155, cm, 01/23/22 14:00:00 EST, Height, 106.5, kg,09/14/21 9:38:00 EDT, Dry Weight Start Date: 02/07/22 Status: Ordered selenium sulfide 2.5% topical lotion See Instructions, APPLY TOPICALLY TO AFFECTED AREA EVERY DAY FOR 7 DAYS, # 120 mL, 3 Refills, Soft Stop, 10/26/21 15:43:00 EDT, [facility], 7, APPLY TOPICALLY TO AFFECTED AREA EVERY DAY FOR 7 DAYS, 155, cm, 09/28/21 12:06:00 EDT, H... Start Date: 10/26/21 Status: Ordered tiZANidine 2 mg oral tablet 1, tablet, By Mouth, 3 times a day, # 60 tablet, Refills 0, Route to Pharmacy Electronically, [facility] [id number], 155, cm, 05/03/21 14:39:00 EST, Height, 95.9, kg, 12/05/20 10:08:00 EDT, Dry Weight Start Date: 05/09/21 Status: Ordered traMADol 50 mg oral tablet 1 tablet = 50 mg, By Mouth, Every 8 hours, PRN Pain , Severe, for 7 days, May fill 02/10/22 and weekly on Fridays for 3 weeks, # 21 tablet, 2 Refills, Acute 02/28/22 15:55:00 EST, 02/07/22 15:55:00 EST, Tablet, [facility], Partial f... Start Date: 02/07/22 Stop Date: 02/28/22 Status: Ordered Problem List Condition Confirmation Course Effective Dates Status H ealth Status Informant Anxiety Confirmed Active Opioid type dependence, continuous 1 Confirmed Active Osteoarthritis of left knee Confirmed Active Psoriasis Confirmed Active Severe obesity Confirmed Active 1Client had been seen by Jazz Francois at [facility]. Client has no-showed to last appt [...] Personnel Name: Ilya De Leon MD Position: [facility] Primary Care Physician Member Role: PCP Address: Address: [address] [place] [id number]- Care Team Related Persons Name: JD ALVAREZ Address: home [address] [place] [id number]
--- OUTSIDE RECORDS SUMMARY | 2022-11-03 10:37 | XMS_ITS | Continuity of Care Document ---
Author Name Unknown Organization [facility] Address [address] [place] [id number]- Care Team Providers Care Barrel Lathe Operator Name Role Phone Ilya De Leon MD Primary Care Physician Encounter [facility] Date(s): 10/25/21 - 10/25/[address] [address]- Encounter Diagnosis Chronic knee pain(Final) - 10/25/21 Discharge Disposition: A-D/C Home Attending Physician: Cassi [...] Refills, Maintenance, 06/29/21 15:10:00 EDT, ER Tablet, [facility]/pharmacy #[id number], Partial fill upon patient request if the prescription is for a schedule II opioid drug., 155, cm, 05/30/21 15:34:... Start Date: 06/29/21 Status: Ordered capsaicin 0.025% topical cream See Instructions, APPLY TO AFFECTED AREA TWICE A DAY, # 60 Gm, 1 Refills, [facility] [id number], 30, APPLY TO AFFECTED AREA TWICE A DAY, 155, cm, 05/30/21 15:34:00 EDT, Height, 95.9, kg, 12/05/20 10:08:00 EDT, Dry Weight Start Date: 05/31/21 Status: Ordered Cavilon Emollient topical cream 1 application, Topically, 2 times a day, PRN for dry skin, # 454 Gm, 1 Refills, Maintenance, 09/30/19 16:26:00 EDT, Cream, [facility] 3, 1 application Topically 2 times a day,PRN:for dry skin, 158, cm, 08/27/19 13:02:00 EDT, Height, 76, kg... Start Date: 09/30/19 Status: Ordered clonazePAM 0.5 mg oral tablet 1 tablet = 0.5 mg, By Mouth, Daily at bedtime, July fill 10/21/21, # 7 tablet, 0 Refills, Maintenance, 10/21/21 11:54:00 EDT, Tablet, [facility], [facility] reviewed, covering for Dr. De Leon, 155, cm, 09/28/21 12:06:00 EDT, Height, 106.5,... Start Date: 10/21/21 Stop Date: 10/28/21 Status: Ordered clonazePAM 0.5 mg oral tablet 1 tablet = 0.5 mg, By Mouth, Daily at bedtime, July cammie l 09/22/21, # 7 tablet, 0 Refills, Maintenance, 09/21/21 7:19:00 EDT, Tablet, [facility], [facility] reviewed, covering for Dr. De Leon, 155, cm, 09/15/21 10:14:00 EDT, Height, 106.5,... Start Date: 09/21/21 Stop Date: 09/28/21 Status: Ordered coal tar topical 2% foam 1 application, Topically, 4 times a day, # 100 Gm, 1 Refills, Maintenance, 09/28/21 12:24:00 EDT, Foam, [facility], Partial fill upon patient request if the prescription is for a schedule II opioid drug., 1 application Topically 4... Start Date: 09/28/21 Status: Ordered Dovonex 0.005% topical cream 1 applicator, Topically, 2 times a day, # 60 Gm, 5 Refills, Maintenance, 07/07/19 17:30:00 EDT, [facility] 3, 1 applicator Topically 2 times a day,x30 days, 158, cm, 12/24/18 10:25:00 EDT, Height, 76, kg, 04/12/19 15:31:00 EST, Dry Weight Start Date: 07/07/19 Stop Date: 01/03/20 Status: Ordered Eucerin Unscented topical lotion See Instructions, apply as frequently as needed, # 1 each, 0 Refills, Maintenance, 09/28/21 12:23:00 EDT, [facility], Partial fill upon patient request if the prescription is for a schedule II opioid drug., apply as frequently as n... Start Date: 09/28/21 Status: Ordered fluticasone 50 mcg/inh nasal spray 1 sprays, Nares, Both, 2 times a day, in each nostril. for allergies, # 16 Gm, 0 Refills, Maintenance, 04/27/20 14:35:00 EST, [place], [facility] 3, Partial fill upon patient request if theprescription is for a schedule II opioid drug., 1... Start Date: 04/27/20 Stop Date: 05/27/20 Status: Ordered halobetasol 0.05% topical ointment See Instructions, APPLY A THIN FILM TO THE AFFECTED SKIN AND RUB IN GENTLY AND COMPLETELY TWICE A DAY, # 50 Gm, 1 Refills, [facility] [id number], 30, APPLY A THIN FILM TO THE AFFECTED SKIN AND RUB IN GENTLY AND COMPLETELY TWICE A DAY, 155, cm, 12/05/20 10:0... Start Date: 03/15/21 Status: Ordered hydrocortisone 1% topical cream 1 application, Topically, 2 times a day, # 30 Gm, 0 Refills, Maintenance, 06/17/21 11:42:00 EDT, Cream, [facility], Partial fill upon patient request if the prescription is for a schedule II opioid drug., 1 application Topically 2 times... Start Date: 06/17/21 Status: Ordered ketoconazole 2% topical shampoo See Instructions, APPLY 1 APPLICATOR TOPICALLY 3X PER WEEK, # 120 mL, 3 Refills, [facility] [id number], 30, APPLY 1 APPLICATOR TOPICALLY 3X PER WEEK, 155, cm, 05/30/21 15:34:00 EDT, Height, 95.9, kg, 12/05/20 10:08:00 EDT, Dry Weight Start Date: 08/02/21 Status: Ordered loratadine 10 mg oral tablet 1, tablet, By Mouth, Daily, # 15 tablet, Refills 5, Tot. Refills 5, Maintenance, 08/19/21 9:15:00 EDT, [id number], 155, cm, 05/30/21 15:34:00 EDT, Height, 95.9, kg, 12/05/20 10:08:00 EDT, Dry Weight Start Date: 08/19/21 Status: Ordered Methadone By Mouth, 0 Refills, Maintenance Start Date: 12/25/11 Status: Ordered mupirocin 2% topical cream 1 application, Topically, 3 times a day, # 30 Gm, 2 Refills, Maintenance, 03/08/21 10:26:00 EST, Cream, [facility]/pharmacy #[id number], Partial fill upon patient request if the prescription is for a schedule II opioid drug., 1 application Topically 3 times a day,... Start Date: 03/08/21 Status: Ordered permethrin 5% topical cream 1 application, Topically, Once, to skin head to feet, remove by washing after 8 to 14 hours, # 60 Gm, 0 Refills, Soft Stop, 07/27/20 11:50:00 EDT, Cream, [facility], 1 applicationTopically Once,Instr:to skin head to feet, remove b... Start Date: 07/27/20 Status: Ordered predniSONE 10 mg oral tablet See Instructions, MADDY 1 TABLETA POR LA BOCA DOS VECES AL ANDREW POR 7 RAY, # 14 tablet, 0 Refills, [facility], 155, cm, 09/28/21 12:06:00 EDT, Height, 106.5, kg, 09/14/21 9:38:00 EDT, Dry Weight Start Date: 10/21/21 Status: Ordered selenium sulfide 2.5% topical lotion See Instructions, APPLY TOPICALLY TO AFFECTED AREA EVERY DAY FOR 7 DAYS, # 120 mL, 3 Refills, Soft Stop, 09/28/21 12:25:00 EDT, [facility], 7, APPLY TOPICALLY TO AFFECTED AREA EVERY DAY FOR 7 DAYS, 155, cm, 09/28/21 12:06:00 EDT, H... Start Date: 09/28/21 Status: Ordered tiZANidine 2 mg oral tablet 1, tablet, By Mouth, 3 times a day, # 60 tablet, Refills 0, Route to Pharmacy Electronically, [facility] [id number], 155, cm, 05/03/21 14:39:00 EST, Height, 95.9, kg, 12/05/20 10:08:00 EDT, Dry Weight Start Date: 05/09/21 Status: Ordered traMADol 50 mg oral tablet 1 tablet = 50 mg, By Mouth, Every 8 hours, PRN Pain , Severe, for 7 days, for 10/21/21, # 21 tablet,0 Refills, Acute 10/28/21 11:53:00 EDT, 10/21/21 11:53:00 EDT, Tablet, [facility], Partial fill upon patient request if the prescri... Start Date: 10/21/21 Stop Date: 10/28/21 Status: Ordered Problem List Condition Effective Dates Status Health Status Inform ant Anxiety(Confirmed) Active Opioid type dependence, continuous(Confirmed) 1 Active Osteoarthritis of left knee(Confirmed) Active Psoriasis(Confirmed) Active Severe obesity(Confirmed) Active 1Client had been seen by Jazz Francois at [facility]. Client has no-showed to last appt and today.She will be targetted for closing if she does not responde to correspondence that will be sent on 02/14/13 Vital Signs Most recent to oldest [Reference Range]: 1 2 Oxygen Saturation [94-100 %] 99 % (10/25/21 11:38 AM) 100 % (10/25/21 10:48 AM) Pulse Rate [55-90 bpm] 63 bpm (10/25/21 11:38 AM) 85 bpm (10/25/21 10:48 AM) Blood Pressure [90-138/55-84 mm Hg] 151/ 89mm Hg *H* (10/25/21 11:38 AM) Respiratory Rate [16-30 br/min] 18 br/mi n (10/25/21 11:38 AM) Temperature [96.8-100.4 DegF] 98.2 DegF (10/25/21 11:38 AM) Mode of Delivery (Oxygen) Room air (10/25/21 11:38 AM) Room air (10/25/21 10:48 AM) Blood pressure sites Arm, right (10/25/21 11:38 AM) Temperature Route Oral (10/25/21 11:38 AM) Social History Social History Type Response Smoking Status 10 or more cigarette s (1/2 pack or more)/day in last 30 days entered on: 04/18/21 Sex
--- OUTSIDE RECORDS SUMMARY | 2022-11-03 10:37 | XMS_ITS | Continuity of Care Document ---
Author Name Unknown Organization [facility] Address [address] [place] [address]- Care Team Providers Care Animal Eviscerator Name Role Phone Ilya De Leon MD Primary Care Physician Encounter [facility] [place] Date(s): 06/10/19 - 07/23/19 [facility] [address] [address]- [facility] Attending Physician: Ilya De Leon MD [...] 0 Refills, Maintenance, 07/07/19 17:30:00 EDT, Cream, [facility], 1 application Topically 2 times a day,PRN:for dry skin, 158, cm, 12/24/18 10:25:00 EDT, Height, 76, kg... Start Date: 07/07/19 Status: Ordered Claritin 10 mg oral tablet 10 mg, 1, tablet, By Mouth, Daily, # 15 tablet, Refills 3, Tot. Refills 3, Maintenance, 11/06/18 8:33:38 EDT, Route to Pharmacy Electronically, [id number][facility] Start Date: 11/06/18 Status: Ordered Dovonex 0.005% topical cream 1 applicator, Topically, 2 times a day, # 60 Gm, 5 Refills, Maintenance, 07/07/19 17:30:00 EDT, [facility], 1 applicator Topically 2 [...] 3 Refills, Maintenance, 06/04/19 14:52:00 EDT, Cream, [facility], 1 application Topically 2 [...] # 42 tablet, 0 Refills, Soft Stop, 07/21/19 16:31:00 EDT, [facility], 158, cm, 12/24/18 10:25:00 EDT... Start Date: 07/21/19 Status: Ordered Medrol Dosepak 4 mg oral tablet per label intructions, By Mouth, Once, as on label, # 1 each, 0 Refills, Soft Stop, 06/27/19 15:04:00 EDT, [facility], 158, cm, 12/24/18 10:25:00 [...] DAYS, # 120 mL, 3 Refills, Maintenance, [facility], 7, APPLY TOPICALLY TO AFFECTED [...] 0 Refills, Maintenance, 04/06/19 20:19:00 EST, Tablet, [facility], 158, cm, 12/24/18 10:25:00 EDT, Height, 75.5, kg, 04/06/19 17:01:00 EST, Dry Weight Start Date: 04/06/19 Stop Date: 04/13/19 Status: Ordered Problem List Condition Effective Dates Status Health Status Inform ant Opioid type dependence, continuous(Confirmed) 1 Active 1Client had been seen by Jazz Francois at [facility]. Client has no-showed to last appt and today.She will be targetted for closing if she does not responde to correspondence that will be sent on 02/14/13 Social History Social History Type Response Smoking Status 10 or more cigarette s (1/2 pack or more)/day in last 30 days entered on: 01/24/18 Sex
--- OUTSIDE RECORDS SUMMARY | 2022-11-03 10:37 | XMS_ITS | Continuity of Care Document ---
Author Name Unknown Organization [facility] Address Unknown Care Team Providers Care [place] Park Tour Guide Name Role Phone Ilya De Leon MD Primary Care Physician Encounter [facility] [place] Date(s): 07/04/21 - 08/03/21 [facility] Attending Physician: AdmCelsa paiz Allergies, Adverse Reactions, Alerts Substance Reaction Severity [...] 01/30/11 Gi lizbeth 1Admin Note: ADMIN BY [facility] 2Admin Note: FLUVIRIN MULTIDOSE ADMINISTERED AT [facility] Medications acetaminophen 650 mg oral tablet, extended release 2 tablet = 1,300 mg, By Mouth, Every 8 hours, # 100 tablet, 1 Refills, Maintenance, 06/29/21 15:10:00 EDT, ER Tablet, [facility]/pharmacy #[id number], Partial fill upon patient request if the prescription is for a schedule II opioid drug., 155, cm, 05/30/21 15:34:... Start Date: 06/29/21 Status: Ordered capsaicin 0.025% topical cream See Instructions, APPLY TO AFFECTED AREA TWICE A DAY, # 60 Gm, 1 Refills, [facility] STORE [id number], 30, APPLY TO AFFECTED AREA TWICE A DAY, 155, cm, 05/30/21 15:34:00 EDT, Height, 95.9, kg, 12/05/20 10:08:00 EDT, Dry Weight Start Date: 05/31/21 Status: Ordered Cavilon Emollient topical cream 1 application, Topically, 2 times a day, PRN for dry skin, # 454 Gm, 1 Refills, Maintenance, 09/30/19 16:26:00 EDT, Cream, [facility], 1 application Topically 2 times a day,PRN:for dry skin, 158, cm, 08/27/19 13:02:00 EDT, Height, 76, kg... Start Date: 09/30/19 Status: Ordered clonazePAM 0.5 mg oral tablet 1 tablet = 0.5 mg, By Mouth, Daily, mAY FILL 06/21/21, # 14 tablet, 0 Refills, Maintenance, 07/29/2212:45:00 EDT, Tablet, [facility], [employer] SUPERINTENDENT reviewed, covering for Dr. De Leon, 155, cm, 05/30/21 15:34:00 EDT, Height, 95.9, kg, ... Start Date: 07/29/21 Stop Date: 08/12/21 Status: Ordered Dovonex 0.005% topical cream 1 applicator, Topically, 2 times a day, # 60 Gm, 5 Refills, Maintenance, 07/07/19 17:30:00 EDT, [facility], 1 applicator Topically 2 times a day,x30 days, 158, cm, 12/24/18 10:25:00 EDT, Height, 76, kg, 04/12/19 15:31:00 EST, Dry Weight Start Date: 07/07/19 Stop Date: 01/03/20 Status: Ordered fluticasone 50 mcg/inh nasal spray 1 sprays, Nares, Both, 2 times a day, in each nostril. for allergies, # 16 Gm, 0 Refills, Maintenance, 04/27/20 14:35:00 EST, [place], [facility], Partial fill upon patient request if theprescription is for a schedule II opioid drug., 1... Start Date: 04/27/20 Stop Date: 05/27/20 Status: Ordered furosemide 20 mg oral tablet 1, tablet, By Mouth, Daily, # 30 tablet, Refills 3, Tot. Refills 3, Maintenance, 04/18/21 12:11:00 EST, Route to Pharmacy Electronically, [facility]/pharmacy #[id number], 155, cm, 04/18/21 10:12:00 EST, Height, 95.9, kg, 12/05/20 10:08:00 EDT, Dry Weight Start Date: 04/18/21 Status: Ordered halobetasol 0.05% topical ointment See Instructions, APPLY A THIN FILM TO THE AFFECTED SKIN AND RUB IN GENTLY AND COMPLETELY TWICE A DAY, # 50 Gm, 1 Refills, [facility]ORE [id number], 30, APPLY A THIN FILM TO THE AFFECTED SKIN AND RUB IN GENTLY AND COMPLETELY TWICE A DAY, 155, cm, 12/05/20 10:0... Start Date: 03/15/21 Status: Ordered hydrocortisone 1% topical cream 1 application, Topically, 2 times a day, # 30 Gm, 0 Refills, Maintenance, 06/17/21 11:42:00 EDT, Cream, [facility], Partial fill upon patient request if the prescription is for a schedule II opioid drug., 1 application Topically 2 times... Start Date: 06/17/21 Status: Ordered ketoconazole 2% topical shampoo See Instructions, APPLY 1 APPLICATOR TOPICALLY 3X PER WEEK, # 120 mL, 3 Refills, [facility] [id number], 30, APPLY 1 APPLICATOR TOPICALLY 3X PER WEEK, 155, cm, 05/30/21 15:34:00 EDT, Height, 95.9, kg, 12/05/20 10:08:00 EDT, Dry Weight Start Date: 08/02/21 Status: Ordered loratadine 10 mg oral tablet 1, tablet, By Mouth, Daily, # 15 tablet, Refills 3, Route to Pharmacy Electronically, [facility] ST[id number], 155, cm, 05/30/21 15:34:00 EDT, Height, 95.9, kg, 12/05/20 10:08:00 EDT, Dry Weight Start Date: 06/21/21 Status: Ordered Methadone By Mouth, 0 Refills, Maintenance Start Date: 12/25/11 Status: Ordered mupirocin 2% topical cream 1 application, Topically, 3 times a day, # 30 Gm, 2 Refills, Maintenance, 03/08/21 10:26:00 EST, Cream, [facility]/pharmacy #[id number], Partial fill upon patient request if the prescription is for a schedule II opioid drug., 1 application Topically 3 times a day,... Start Date: 03/08/21 Status: Ordered permethrin 5% topical cream 1 application, Topically, Once, to skin head to feet, remove by washing after 8 to 14 hours, # 60 Gm, 0 Refills, Soft Stop, 07/27/20 11:50:00 EDT, Cream, [facility], 1 applicationTopically Once,Instr:to skin head to feet, remove b... Start Date: 07/27/20 Status: Ordered predniSONE 10 mg oral tablet 1 tablet, By Mouth, Daily, for 14 days, for 07/22, # 14 tablet, 0 Refills, Physician Stop 08/12/21 13:45:00 EDT, 07/29/21 13:45:00 EDT, [facility], 155, cm, 05/30/21 15:34:00 EDT, Height, 95.9, kg, 12/05/20 10:08:00 EDT, Dry Weight Start Date: 07/29/21 Stop Date: 08/12/21 Status: Ordered selenium sulfide 2.5% topical lotion See Instructions, APPLY TOPICALLY TO AFFECTED AREA EVERY DAY FOR 7 DAYS, # 120 mL, 3 Refills, Soft Stop, 04/26/21 18:07:00 EST, [facility]/pharmacy #[id number], 7, APPLY TOPICALLY TO AFFECTED AREA EVERY DAY FOR 7DAYS, 155, cm, 04/18/21 10:12:00 EST, Height, 95.9,... Start Date: 04/26/21 Status: Ordered tiZANidine 2 mg oral tablet 1, tablet, By Mouth, 3 times a day, # 60 tablet, Refills 0, Route to Pharmacy Electronically, [facility] STORE [id number], 155, cm, 05/03/21 14:39:00 EST, Height, 95.9, [...]
--- OUTSIDE RECORDS SUMMARY | 2022-11-03 10:37 | XMS_ITS | Continuity of Care Document ---
Author Name Unknown Organization [facility] Address Unknown Care Team Providers Care Handwriting Expert Name Role Phone Haley NEWMAN, Ilya Primary Care Physician Encounter [facility] [place] Date(s): 05/25/21 - 06/29/21 [facility] Attending Physician: Ilya De Leon MD [...] ADMINISTERED AT [facility] Medications acetaminophen 650 mg oral tablet, extended release 2 tablet = 1,300 mg, By Mouth, Every 8 hours, # 100 tablet, 1 Refills, Maintenance, 06/29/21 15:10:00 EDT, ER Tablet, [id number], Partial fill upon patient request if the prescription is for a schedule II opioid drug., 155, cm, 05/30/21 15:34:... Start Date: 06/29/21 Status: Ordered capsaicin 0.025% topical cream See Instructions, APPLY TO AFFECTED AREA TWICE A DAY, # 60 Gm, 1 Refills, [facility]ORE [id number], 30, APPLY TO AFFECTED AREA TWICE A DAY, 155, cm, 05/30/21 15:34:00 EDT, Height, 95.9, kg, 12/05/20 10:08:00 EDT, Dry Weight Start Date: 05/31/21 Status: Ordered Cavilon Emollient topical cream 1 application, Topically, 2 times a day, PRN for dry skin, # 454 Gm, 1 Refills, Maintenance, 09/30/19 16:26:00 EDT, Cream, [facility], 1 application Topically 2 times a day,PRN:for dry skin, 158, cm, 08/27/19 13:02:00 EDT, Height, 76, kg... Start Date: 09/30/19 Status: Ordered clonazePAM 0.5 mg oral tablet 1 tablet = 0.5 mg, By Mouth, Daily, mAY FILL 06/21/21, # 14 tablet, 0 Refills, Maintenance, 06/21/2215:00:00 EDT, Tablet, [facility]/pharmacy #[id number], SENIOR [employer]ROL AGENT reviewed, covering for Dr. De Leon, 155, cm, 05/30/2214:34:00 EDT, Height, 95.9, kg, 12/05/20 10:08:00 E... Start Date: 06/20/21 Stop Date: 07/04/21 Status: Ordered Dovonex 0.005% topical cream 1 applicator, Topically, 2 times a day, # 60 Gm, 5 Refills, Maintenance, 07/07/19 17:30:00 EDT, [facility], 1 applicator Topically 2 times a day,x30 days, 158, cm, 12/24/18 10:25:00 EDT, Height, 76, kg, 04/12/19 15:31:00 EST, Dry Weight Start Date: 07/07/19 Stop Date: 01/03/20 Status: Ordered fluticasone 50 mcg/inh nasal spray 1 sprays, Nares, Both, 2 times a day, in each nostril. for allergies, # 16 Gm, 0 Refills, Maintenance, 04/27/20 14:35:00 EST, [place], [facility], Partial fill upon patient request if theprescription is for a schedule II opioid drug., 1... Start Date: 04/27/20 Stop Date: 05/27/20 Status: Ordered furosemide 20 mg oral tablet 1, tablet, By Mouth, Daily, # 30 tablet, Refills 3, Tot. Refills 3, Maintenance, 04/18/21 12:11:00 EST, Route to Pharmacy Electronically, [facility]/pharmacy #[id number], 155, cm, 04/18/21 10:12:00 EST, Height, 95.9, kg, 12/05/20 10:08:00 EDT, Dry Weight Start Date: 04/18/21 Status: Ordered halobetasol 0.05% topical ointment See Instructions, APPLY A THIN FILM TO THE AFFECTED SKIN AND RUB IN GENTLY AND COMPLETELY TWICE A DAY, # 50 Gm, 1 Refills, [facility] STORE [id number], 30, APPLY A THIN FILM TO THE AFFECTED SKIN AND RUB IN GENTLY AND COMPLETELY TWICE A DAY, 155, cm, 12/05/20 10:0... Start Date: 03/15/21 Status: Ordered hydrocortisone 1% topical cream 1 application, Topically, 2 times a day, # 30 Gm, 0 Refills, Maintenance, 06/17/21 11:42:00 EDT, Cream, [facility], Partial fill upon patient request if the prescription is for a schedule II opioid drug., 1 application Topically 2 times... Start Date: 06/17/21 Status: Ordered ketoconazole 2% topical shampoo See Instructions, APPLY 1 APPLICATOR TOPICALLY 3X PER WEEK, # 120 mL, 3 Refills, [facility] ST[facility] [id number], 30, APPLY 1 APPLICATOR TOPICALLY 3X PER WEEK, 155, cm, 03/17/21 7:53:00 EST, Height, 95.9, kg, 12/05/20 10:08:00 EDT, Dry Weight Start Date: 03/21/21 Status: Ordered loratadine 10 mg oral tablet 1, tablet, By Mouth, Daily, # 15 tablet, Refills 3, Route to Pharmacy Electronically, [facility] STORE [id number], 155, cm, 05/30/21 15:34:00 EDT, Height, 95.9, [...] Refills, Soft Stop, 07/27/20 11:50:00 EDT, Cream, [facility], 1 applicationTopically Once,Instr:to skin head to feet, remove b... Start Date: 07/27/20 Status: Ordered selenium sulfide 2.5% topical lotion See Instructions, APPLY TOPICALLY TO AFFECTED AREA EVERY DAY FOR 7 DAYS, # 120 mL, 3 Refills, Soft Stop, 04/26/21 18:07:00 EST, [facility]/pharmacy #[id number], 7, APPLY TOPICALLY TO AFFECTED AREA EVERY DAY FOR 7DAYS, 155, cm, 04/18/21 10:12:00 EST, Height, 95.9,... Start Date: 04/26/21 Status: Ordered tiZANidine 2 mg oral tablet 1, tablet, By Mouth, 3 times a day, # 60 tablet, Refills 0, Route to Pharmacy Electronically, [facility] STORE [id number], 155, cm, 05/03/21 14:39:00 EST, Height, 95.9, kg, 12/05/20 10:08:00 EDT, Dry Weight Start Date: 05/09/21 Status: Ordered Problem List Condition Effective Dates Status Health Status Inform ant Anxiety(Confirmed) Active Opioid type dependence, continuous(Confirmed) 1 Active Osteoarthritis of left knee(Confirmed) Active Psoriasis(Confirmed) Active Severe obesity(Confirmed) Active 1Client had been seen by Jazz Francois at [facility]. Client has no-showed to last appt and today.She will be targetted for closing if she does not responde to correspondence that will be sent on 02/14/13 Social History Social History Type Response Smoking Status 10 or more cigarette s (1/2 pack or more)/day in last 30 days entered on: 04/18/21 Sex
--- OUTSIDE RECORDS SUMMARY | 2022-11-03 10:37 | XMS_ITS | Continuity of Care Document ---
Author Name Unknown Organization [facility] Address [address] [place] [address]- Care Team Providers Care Staff Weapons Officer Name Role Phone Hlaey NEWMAN, Ilya Primary Care Physician Encounter [facility] Date(s): 03/03/20 - 04/02/20 [facility] [address] [place] [address]- Allergies, Adverse Reactions, Alerts Substance Reaction Severity [...] 11/06/18 8:33:38 EDT, Route to Pharmacy Electronically, [id number], [facility] Start Date: 11/06/18 Status: Ordered Dovonex 0.005% topical cream 1 applicator, Topically, 2 times a day, # 60 Gm, 5 Refills, Maintenance, 07/07/19 17:30:00 EDT, [facility], 1 applicator Topically 2 [...] 3 Refills, Maintenance, 06/04/19 14:52:00 EDT, Cream, [facility], 1 application Topically 2 times [...] # 42 tablet, 0 Refills, Soft Stop, 03/10/20 18:23:00 EST, [facility], 158, cm, /... Start Date: 03/10/20 Status: Ordered Medrol Dosepak 4 mg oral tablet per label intructions, By Mouth, Once, as on label, # 1 each, 0 Refills, Soft Stop, 08/11/19 20:08:00 EDT, [facility], 158, cm, 12/24/18 10:25:00 [...] # 120 mL, 0 Refills, Soft Stop, 03/29/20 12:28:00 EST, [facility], 1 applicator Topically 3x per week, 158, cm, 03/19/20 14:36:00 EST, Height, 76, kg, 04/12/19 15:31:00 EST, Dry Weight Start Date: 03/29/20 Status: Ordered permethrin 5% topical cream 1 application, Topically, Once, to skin head to feet, remove by washing after 8 to 14 hours, # 60 Gm, 0 Refills, Soft Stop, 08/08/18 15:08:37 EDT, Cream Start Date: 08/08/18 Status: Ordered selenium sulfide 2.5% topical lotion See Instructions, APPLY TOPICALLY TO AFFECTED AREA EVERY DAY FOR 7 DAYS, # 120 mL, 3 Refills, Maintenance, [facility], 7, APPLY TOPICALLY TO AFFECTED AREA EVERY DAY FOR 7 DAYS, 158, cm, 08/27/19 13:02:00 EDT, Height, 76, kg, 04/12/19 15:31:00 E... Start Date: 03/01/20 Status: Ordered shower grab bar shower grab bar, See Instructions, # 1 each, Refills 0, Tot. Refills 0, Maintenance, for balance problems, 01/22/19 16:12:36 EST, Compound Start Date: 01/22/19 Status: Ordered terbinafine 1% topical cream 1 application, Topically, Daily, use for 2 weeks, # 24 Gm, 1 Refills, Maintenance, 03/10/20 18:21:00 EST, Cream, [facility], Partial fill upon patient [...] 0 Refills, Maintenance, 04/06/19 20:19:00 EST, Tablet, [facility], 158, cm, 12/24/18 10:25:00 EDT, Height, 75.5, kg, 04/06/19 17:01:00 EST, Dry Weight Start Date: 04/06/19 Stop Date: 04/13/19 Status: Ordered Problem List Condition Effective Dates Status Health Status Inform ant Opioid type dependence, continuous(Confirmed) 1 Active 1Client had been seen by Jazz Francois at [facility]. Client has no-showed to last appt and today.She will be targetted for closing if she does not responde to correspondence that will be sent on 02/14/13 Social History Social History Type Response Tobacco Use: 4 or less cigar ettes(less than 1/4 pack)/day in last 30 days. Sex
--- OUTSIDE RECORDS SUMMARY | 2022-11-03 10:37 | XMS_ITS | Continuity of Care Document ---
Author Name Unknown Organization [facility] Address [address] [place] [address]- Care Team Providers Care Supervisor Photostat Name Role Phone Ilya De Leon MD Primary Care Physician Encounter [facility] [place] Date(s): 09/25/22 - 10/25/22 [facility]/[address] [address]- Attending Physician: Celsa Lyons Allergies, Adverse Reactions, Alerts Substance Reaction Severity Status penicillin Rash Active Imitrex Chest pain Active aspirin Ibuprofen [...] Garrett rded 1Admin Note: ADMIN BY [facility] 2Admin Note: FLUVIRIN MULTIDOSE ADMINISTERED AT [facility] Medications acetaminophen 650 mg oral tablet, extended release 2 tablet = 1,300 mg, By Mouth, Every 8 hours, # 100 tablet, 1 Refills, Maintenance, 06/29/21 15:10:00 EDT, ER Tablet, [id number], Partial fill upon patient request if the prescription is for a schedule II opioid drug., 155, cm, 05/30/21 15:34:... Start Date: 06/29/21 Status: Ordered Cavilon Emollient topical cream 1 application, Topically, 2 times a day, PRN for dry skin, # 454 Gm, 1 Refills, Maintenance, 09/30/19 16:26:00 EDT, Cream, [facility] 3, 1 application Topically 2 times a day,PRN:for dry skin, 158, cm, 08/27/19 13:02:00 EDT, Height, 76, kg... Start Date: 09/30/19 Status: Ordered Cavilon Emollient topical cream 1 application, Topically, 2 times a day, PRN for dry skin, # 454 Gm, 3 Refills, Maintenance, 09/19/22 11:12:00 EDT, Cream, [facility], 1 application Topically 2 times a day,PRN:for dry skin, 155, cm, 09/04/22 10:17:00 EDT, Height,... Start Date: 09/19/22 Status: Ordered cetirizine 10 mg oral tablet, chewable 1 tablet = 10 mg, By Mouth, Daily, PRN for allergy symptoms, # 12 tablet, 4 Refills, Maintenance, 09/04/22 10:28:00 EDT, Chew Tablet, [facility], Partial fill upon patient request ifthe prescription is for a schedule II opioid drug.,... Start Date: 09/04/22 Stop Date: 10/24/22 Status: Ordered cholecalciferol 1000 intl units oral capsule 1 capsule = 25 mcg, By Mouth, Daily, vitamin D, # 100 capsule, 3 Refills, Maintenance, 07/24/22 13:10:00 EDT, Capsule, [facility]/pharmacy #[id number], Partial fill upon [...] 3 Refills, Maintenance, 10/04/22 8:15:00 EDT, Tablet, [facility], [employer] TAKERS SUPERVISOR reviewed, covering for Dr. De Leon, 15... Start Date: 10/04/22 Stop Date: 11/01/22 Status: Ordered clonazePAM 0.5 mg oral tablet 1 tablet = 0.5 mg, By Mouth, 2 times a day, Increaseddose July weekly on Fridays for 3 weeks starting on 07/21, # 14 tablet, 2 Refills, Maintenance, 07/19/22 12:38:00 EDT, Tablet, [facility], ORDER TAKERS SUPERVISOR reviewed, covering for Dr. De Leon, 1... Start Date: 07/19/22 Stop Date: 08/09/22 Status: Ordered Dovonex 0.005% topical cream 1 applicator, Topically, 2 times a day, # 60 Gm, 5 Refills, Maintenance, 05/24/22 12:41:00 EDT, [facility], 1 applicator Topically 2 times a day,x30 days, 155, cm, 01/23/22 14:00:00 EST, Height, 106.5, kg, 09/14/21 9:38:00 EDT, Dry... Start Date: 05/24/22 Stop Date: 11/20/22 Status: Ordered Eucerin Unscented topical lotion See Instructions, apply as frequently as needed, # 1 each, 3 Refills, Maintenance, 09/19/22 11:12:00 EDT, [facility], Partial fill upon patient request if the prescription is for a schedule II opioid drug., apply as frequently as n... Start Date: 09/19/22 Status: Ordered Eucerin Unscented topical lotion See Instructions, apply as frequently as needed, # 1 each, 0 Refills, Maintenance, 09/28/21 12:23:00 EDT, [facility], Partial fill upon patient request if the prescription is for a schedule II opioid drug., apply as frequently as n... Start Date: 09/28/21 Status: Ordered fluticasone 50 mcg/inh nasal spray 1 sprays, Nares, Both, 2 times a day, in each nostril. for allergies, # 16 Gm, 0 Refills, Maintenance, 04/27/20 14:35:00 EST, [place], [facility] 3, Partial fill upon patient request if theprescription is for a schedule II opioid drug., 1... Start Date: 04/27/20 Stop Date: 05/27/20 Status: Ordered halobetasol 0.05% topical ointment See Instructions, APPLY A THIN FILM TO THE AFFECTED SKIN AND RUB IN GENTLY AND COMPLETELY TWICE A DAY, # 50 Gm, 0 Refills, Maintenance, 09/12/22 13:49:00 EDT, [facility]/pharmacy #[id number], 30, APPLY A THIN FILM TO THE AFFECTED SKIN AND RUB IN GENTLY AND COMPLET... Start Date: 09/12/22 Status: Ordered halobetasol 0.05% topical ointment See Instructions, APPLY A THIN FILM TO THE AFFECTED SKIN AND RUB IN GENTLY AND COMPLETELY TWICE A DAY, # 50 Gm, 3 Refills, Maintenance, 09/19/22 11:12:00 EDT, [facility], 30, APPLY A THIN FILM TO THE AFFECTED SKIN AND RUB IN GENTLY... Start Date: 09/19/22 Status: Ordered ketoconazole 2% topical shampoo See Instructions, APPLY 1 APPLICATOR TOPICALLY 3X PER WEEK, # 120 mL, 3 Refills, Maintenance, 05/16/22 8:48:00 EST, [id number], 30, APPLY 1 APPLICATOR TOPICALLY 3X PER WEEK, 155, cm, 01/23/22 14:00:00 EST, Height, 106.5, kg, 09/14/21 9:38:00 EDT,... Start Date: 05/16/22 Status: Ordered loratadine 10 mg oral tablet 1, tablet, By Mouth, Daily, # 30 tablet, Refills 5, Tot. Refills 5, Maintenance, 07/04/22 8:39:00 EDT, Route to Pharmacy Electronically, [facility]/pharmacy #[id number], 155, cm, 01/23/22 14:00:00 EST, Height, 106.5, kg, 09/14/21 9:38:00 EDT, Dry Weight Start Date: 07/04/22 Status: Ordered Methadone By Mouth, 0 Refills, Maintenance Start Date: 12/25/11 Status: Ordered mupirocin 2% topical cream 1 application, Topically, 3 times a day, # 30 Gm, 2 Refills, Maintenance, 03/08/21 10:26:00 EST, Cream, [facility]/pharmacy #[id number], Partial fill upon [...] tablet, 3 Refills, Maintenance, 10/04/22 8:15:00 EDT, [facility], Partial fill upon patient request if theprescription is for a schedule II opioid drug., 155... Start Date: 10/04/22 Status: Ordered selenium sulfide 2.5% topical lotion See Instructions, APPLY TOPICALLY TO AFFECTED AREA EVERY DAY FOR 7 DAYS, # 120 mL, 3 Refills, Soft Stop, 10/26/21 15:43:00 EDT, [facility], 7, APPLY TOPICALLY TO AFFECTED AREA EVERY DAY FOR 7 DAYS, 155, cm, 09/28/21 12:06:00 EDT, H... Start Date: 10/26/21 Status: Ordered simvastatin 20 mg oral tablet 20 mg, 1, tablet, By Mouth, Daily at bedtime, for cholesterol, # 30 tablet, Refills 5, Tot. Refills5, Maintenance, 07/24/22 13:12:00 EDT, Route to Pharmacy Electronically, [facility]/pharmacy #[id number], Partial fill upon [...] 11/01/22 8:14:00 EDT, 10/04/22 8:14:00 EDT, Tablet, [facility], Partial fi... Start Date: 10/04/22 [...] Ilya De Leon MD Position: [facility] Physician - Primary Care Member Role: PCP Address: Address: [address] [place] [id number]- Care Team Related Persons Name: JD ALVAREZ Address: home [address] [place] [id number]
--- OUTSIDE RECORDS SUMMARY | 2022-11-03 10:37 | XMS_ITS | Continuity of Care Document ---
Author Name Unknown Organization [facility] Address Unknown Care Team Providers Care Food Packer Name Role Phone Haley NEWMAN, Ilya Primary Care Physician Encounter [facility] Date(s): 04/13/21 - 05/13/21 [facility] Allergies, Adverse Reactions, Alerts Substance Reaction [...] AT [facility] Medications Cavilon Emollient topical cream 1 application, Topically, 2 times a day, PRN for dry skin, # 454 Gm, 1 Refills, Maintenance, 09/30/19 16:26:00 EDT, Cream, [facility], 1 application Topically 2 times a day,PRN:for dry skin, 158, cm, 08/27/19 13:02:00 EDT, Height, 76, kg... Start Date: 09/30/19 Status: Ordered Claritin 10 mg oral tablet 10 mg, 1, tablet, By Mouth, Daily, # 15 tablet, Refills 3, Tot. Refills 3, Maintenance, 05/03/21 15:42:00 EST, Route to Pharmacy Electronically, [facility]/pharmacy #[id number], 155, cm, 05/03/21 14:39:00 EST, Height, 95.9, kg, 12/05/20 10:08:00 EDT, Dry Weight Start Date: 05/03/21 Status: Ordered clonazePAM 0.5 mg oral tablet 1 tablet = 0.5 mg, By Mouth, Daily, may fill 05/02, # 14 tablet, 0 Refills, Maintenance, 05/01/21 3:37:00 EST, Tablet, [facility]/pharmacy #[id number], [employer]SEMBLER reviewed, covering for Dr. De Leon, 155, cm, 04/18/21 10:12:00 EST, Height, 95.9, kg, 12/05/20 10:08:00 EDT,... Start Date: 05/01/21 Stop Date: 05/15/21 Status: Ordered Dovonex 0.005% topical cream 1 applicator, Topically, 2 times a day, # 60 Gm, 5 Refills, Maintenance, 07/07/19 17:30:00 EDT, [facility], 1 applicator Topically 2 times a day,x30 days, 158, cm, 12/24/18 10:25:00 EDT, Height, 76, kg, 04/12/19 15:31:00 EST, Dry Weight Start Date: 07/07/19 Stop Date: 01/03/20 Status: Ordered fluticasone 50 mcg/inh nasal spray 1 sprays, Nares, Both, 2 times a day, in each nostril. for allergies, # 16 Gm, 0 Refills, Maintenance, 04/27/20 14:35:00 EST, [place], [facility], Partial fill upon patient request if theprescription is for a schedule II opioid drug., 1... Start Date: 04/27/20 Stop Date: 05/27/20 Status: Ordered furosemide 20 mg oral tablet 1, tablet, By Mouth, Daily, # 30 tablet, Refills 3, Tot. Refills 3, Maintenance, 04/18/21 12:11:00 EST, Route to Pharmacy Electronically, [facility]/pharmacy #[id number], 155, cm, 04/18/21 10:12:00 EST, Height, 95.9, kg, 12/05/20 10:08:00 EDT, Dry Weight Start Date: 04/18/21 Status: Ordered halobetasol 0.05% topical ointment See Instructions, APPLY A THIN FILM TO THE AFFECTED SKIN AND RUB IN GENTLY AND COMPLETELY TWICE A DAY, # 50 Gm, 1 Refills, [id number], 30, APPLY A THIN FILM TO THE AFFECTED SKIN AND RUB IN GENTLY AND COMPLETELY TWICE A DAY, 155, cm, 12/05/20 10:0... Start Date: 03/15/21 Status: Ordered ketoconazole 2% topical shampoo See Instructions, APPLY 1 APPLICATOR TOPICALLY 3X PER WEEK, # 120 mL, 3 Refills, [id number], 30, APPLY 1 APPLICATOR TOPICALLY 3X PER WEEK, 155, cm, 03/17/21 7:53:00 EST, Height, 95.9, kg, 12/05/20 10:08:00 EDT, Dry Weight Start Date: 03/21/21 Status: Ordered Methadone By Mouth, 0 Refills, Maintenance Start Date: 12/25/11 Status: Ordered mupirocin 2% topical cream 1 application, Topically, 3 times a day, # 30 Gm, 2 Refills, Maintenance, 03/08/21 10:26:00 EST, Cream, [facility]/pharmacy #[id number], Partial fill upon patient request if the prescription is for a schedule II opioid drug., 1 application Topically 3 times a day,... Start Date: 03/08/21 Status: Ordered permethrin 5% topical cream 1 application, Topically, Once, to skin head to feet, remove by washing after 8 to 14 hours, # 60 Gm, 0 Refills, Soft Stop, 07/27/20 11:50:00 EDT, Cream, [facility], 1 applicationTopically Once,Instr:to skin head to feet, remove b... Start Date: 07/27/20 Status: Ordered predniSONE 10 mg oral tablet 1 tablet = 10 mg, By Mouth, Daily, may fill 05/02/21, # 14 tablet, 0 Refills, Maintenance, 05/01/21 3:37:00 EST, [facility]/pharmacy #[id number], Partial fill upon patient request if the prescription is for a schedule II opioid drug., 155, cm, 04/18/21 10:12:00 EST... Start Date: 05/01/21 Stop Date: 05/15/21 Status: Ordered selenium sulfide 2.5% topical lotion See Instructions, APPLY TOPICALLY TO AFFECTED AREA EVERY DAY FOR 7 DAYS, # 120 mL, 3 Refills, Soft Stop, 04/26/21 18:07:00 EST, [facility]/pharmacy #[id number], 7, APPLY TOPICALLY TO AFFECTED AREA EVERY DAY FOR 7DAYS, 155, cm, 04/18/21 10:12:00 EST, Height, 95.9,... Start Date: 04/26/21 Status: Ordered tiZANidine 2 mg oral tablet 1, tablet, By Mouth, 3 times a day, # 60 tablet, Refills 0, Route to Pharmacy Electronically, [id number], 155, cm, 05/03/21 14:39:00 EST, Height, 95.9, kg, 12/05/20 10:08:00 EDT, Dry Weight Start Date: 05/09/21 Status: Ordered Problem List Condition Effective Dates Status Health Status Inform ant Anxiety(Confirmed) Active Opioid type dependence, continuous(Confirmed) 1 Active Osteoarthritis of left knee(Confirmed) Active Psoriasis(Confirmed) Active Severe obesity(Confirmed) Active 1Client had been seen by Jazz Francois at [facility]. Client has no-showed to last appt and today.She will be targetted for closing if she does not responde to correspondence that will be sent on 02/14/13 Social History Social History Type Response Smoking Status 10 or more cigarette s (1/2 pack or more)/day in last 30 days entered on: 04/18/21 Sex
--- OUTSIDE RECORDS SUMMARY | 2022-11-03 10:37 | XMS_ITS | Continuity of Care Document ---
Author Name Unknown Organization [facility] Address Unknown Care Team Providers Care Counter Supervisor Name Role Phone Ilya De Leon MD Primary Care Physician Encounter [facility] [place] Date(s): 03/18/21 - 04/17/21 [facility] Allergies, Adverse Reactions, Alerts Substance Reaction [...] FLUVIRIN MULTIDOSE ADMINISTERED AT [facility] Medications capsaicin 0.025% topical cream See Instructions, APPLY TO AFFECTED AREA TWICE A DAY, # 60 Gm, 1 Refills, [id number], 30, APPLY TO AFFECTED AREA TWICE A [...] 0 Refills, Maintenance, 12/03/20 13:44:00 EDT, Table[facility], [id number] Partial fill upon patient request if the prescription is for a schedule II opioid drug., 158, cm, 12/03/20 13:27:00 EDT, Height,... Start Date: 12/03/20 Status: Ordered Claritin 10 mg oral tablet 10 mg, 1, tablet, By Mouth, Daily, # 15 tablet, Refills 3, Tot. Refills 3, Maintenance, 11/06/18 8:33:38 EDT, Route to Pharmacy Electronically, [id number], [facility] Start Date: 11/06/18 Status: Ordered clindamycin 1% topical gel 1 application, Topically, 2 times a day, # 30 Gm, 0 Refills, Maintenance, 04/08/21 12:14:00 EST, Gel, [facility], Partial fill upon patient request if the prescription is for a schedule II opioid drug., 1 application Topically 2 ti... Start Date: 04/08/21 Status: Ordered clindamycin 150 mg oral capsule See Instructions, 3 capsultes 3 times a day, # 45 capsule, 0 Refills, Acute 01/20/22 14:53:00 EST, 03/17/21 14:50:00 EST, Capsule, [facility], Partial fill upon patient request ifthe prescription is for a schedule II opioid drug.,... Start Date: 03/17/21 Stop Date: 01/20/22 Status: Ordered clonazePAM 0.5 mg oral tablet 1 tablet = 0.5 mg, By Mouth, Daily, [employer]IST[employer] checked Do not fill until 04/11/21, # [...] 0 Refills, Maintenance, 07/16/20 15:11:00 EDT, Tablet, [facility], Partial fill upon patient request if [...] Gm, 0 Refills, Maintenance, 04/27/20 14:35:00 EST, [place], [facility] 3, Partial fill upon patient request [...] A DAY, # 50 Gm, 1 Refills, [id number], 30, APPLY A THIN FILM TO THE AFFECTED SKIN AND RUB IN GENTLY AND COMPLETELY TWICE A DAY, 155, cm, 12/05/20 10:0... Start Date: 03/15/21 Status: Ordered hydrocortisone 1% topical cream 1 application, Topically, 2 times a day, Apply to rash areas, # 60 Gm, 3 Refills, Maintenance, 06/04/19 14:52:00 EDT, Cream, [facility], 1 application Topically 2 times a day,Instr:Apply to rash areas, 158, cm, 12/24/18 10:25:00 EDT, Hei... Start Date: 06/04/19 Status: Ordered ketoconazole 2% topical shampoo See Instructions, APPLY 1 APPLICATOR TOPICALLY 3X PER WEEK, # 120 mL, 3 Refills, [id number], 30, APPLY 1 APPLICATOR TOPICALLY 3X PER [...] a day,... Start Date: 03/08/21 Status: Ordered [place] 0.65% nasal spray 2 sprays, Nares, Both, 4 times a day, # 1 each, 0 Refills, Maintenance, 12/03/20 13:46:00 EDT, [id number] Partial fill upon patient request if [...] Refills, Soft Stop, 07/27/20 11:50:00 EDT, Cream, [facility], 1 applicationTopically Once,Instr:to skin head to feet, remove b... Start Date: 07/27/20 Status: Ordered predniSONE 10 mg oral tablet See Instructions, 1 tablet By Mouth Daily for 6 days then 1/2 tablet daily for 6 days to taper off completely; in Italian, # 9 tablet, 0 Refills, Maintenance, 04/08/21 12:25:00 EST, [facility], Partial fill upon patient request if... Start Date: 04/08/21 Status: Ordered selenium sulfide 2.5% topical lotion See Instructions, APPLY TOPICALLY TO AFFECTED AREA EVERY DAY FOR 7 DAYS, # 120 mL, 3 Refills, Soft Stop, 03/08/21 10:26:00 EST, [id number], 7, APPLY TOPICALLY TO AFFECTED AREA EVERY DAY FOR 7DAYS, 155, cm, 12/05/20 10:08:00 EDT, Height, 95.9,... Start Date: 03/08/21 Status: Ordered Shingrix intramuscular injection = 0.5 mL, Intramuscular, Once, repeat dose in 2 to 6 months, # 2 each, 0 Refills, Soft Stop, 05/27/20 11:03:00 EDT, Powder, [facility], Partial fill upon patient request if [...] 1 Refills, Maintenance, 03/10/20 18:21:00 EST, Cream, [facility], Partial fill upon patient request if the prescription is fora schedule II opioid drug., 1 application Topically... Start Date: 03/10/20 Status: Ordered tiZANidine 2 mg oral tablet 2 mg, 1, tablet, By Mouth, 3 times a day, for 30 days, # 90 tablet, Refills 0, Tot. Refills 0, Acute 05/08/21 12:19:00 EST, 04/08/21 12:19:00 EST, Route to Pharmacy Electronically, [facility], Partial fill upon patient request if t... Start Date: 04/08/21 Stop Date: 05/08/21 Status: Ordered Valium 5 mg oral tablet 5 mg, 1, tablet, By Mouth, Daily at bedtime, PRN, # 3 tablet, Refills 0, Tot. Refills 0, Maintenance, Spasm, 04/03/21 11:16:00 EST, Route to Pharmacy Electronically, [facility], Partialfill upon patient request if the prescription is fo... Start Date: 04/03/21 Status: Ordered Problem List Condition Effective Dates Status Health Status Inform ant Anxiety(Confirmed) Active Opioid type dependence, continuous(Confirmed) 1 Active Osteoarthritis of left knee(Confirmed) Active Psoriasis(Confirmed) Active Severe obesity(Confirmed) Active 1Client had been seen by Jazz Francois at [facility]. Client has no-showed to last appt and today.She will be targetted for closing if she does not responde to correspondence that will be sent on 02/14/13 Social History Social History Type Response Smoking Status 5-9 cigarettes (betw een 1/4 to 1/2 pack)/day in last 30 days entered on: 09/08/20 Sex
--- OUTSIDE RECORDS SUMMARY | 2022-11-03 10:37 | XMS_ITS | Continuity of Care Document ---
Author Name Unknown Organization [facility] Address [address] [place] [id number]- Care Team Providers Care County Auditor Name Role Phone Haley NEWMAN, Ilya Primary Care Physician [place] [facility] [place] 09/18/20 [facility]/[address] [address]- Allergies, Adverse Reactions, Alerts Substance Reaction Severity Status penicillin Rash Active aspirin Ibuprofen tight throat Rash Active morphine HAND SWELLING Active Toradol Rash Active Motrin tight throat Rash Active Imitrex Chest pain Active Compazine throat swells Active Reglan Agitated Active trimethoprim-sulfamethoxazole DS 1 Throa t Hives 17-MAY-2013 07:29:57<$> Unknown Active dehydroepiandrosterone 2 Chest pain Act jluienne 1By phone, reported hives and throat locking [...] 0 Refills, Maintenance, 07/23/20 11:37:00 EDT, Tablet, [facility], Partial fill upon patient request if the prescription is for a schedule II... Start Date: 07/23/20 Stop Date: 08/22/20 Status: Ordered Claritin 10 mg oral tablet 10 mg, 1, tablet, By Mouth, Daily, # 15 tablet, Refills 3, Tot. Refills 3, Maintenance, 11/06/18 8:33:38 EDT, Route to Pharmacy Electronically, [id number], [facility] Start Date: 11/06/18 Status: Ordered clonazePAM 0.5 mg oral tablet 1 tablet = 0.5 mg, By Mouth, Daily, # 28 tablet, 0 Refills, Maintenance, 08/26/20 14:39:00 EDT, Tablet, [facility], Partial fill upon patient request if the prescription is for a schedule II opioid drug., 158, cm, 08/26/20 14:27:00... Start Date: 08/26/20 Status: Ordered diphenhydrAMINE 25 mg oral tablet 1 tablet = 25 mg, By Mouth, 3 times a day, PRN as needed for itching, Will cause drowsiness, # 30 tablet, 0 Refills, Maintenance, 07/16/20 15:11:00 EDT, Tablet, [facility], Partial fill upon patient request if the prescription is f... Start Date: 07/16/20 Status: Ordered Dovonex 0.005% topical cream 1 applicator, Topically, 2 times a day, # 60 Gm, 5 Refills, Maintenance, 07/07/19 17:30:00 EDT, [facility] 3, 1 applicator Topically 2 times [...] Gm, 0 Refills, Maintenance, 04/27/20 14:35:00 EST, [place], [facility] 3, Partial fill upon patient request if theprescription is for a schedule II opioid drug., 1... Start Date: 04/27/20 Stop Date: 05/27/20 Status: Ordered furosemide 20 mg oral tablet 20 mg, 1, tablet, By Mouth, Daily, # 30 tablet, Refills 1, Tot. Refills 1, Maintenance, 08/27/20 16:12:00 EDT, Route to Pharmacy Electronically, [facility]/pharmacy #[id number], Partial fill upon patient request if the prescription is for a schedule II opioid drug... Start Date: 08/27/20 Status: Ordered halobetasol 0.05% topical cream 1 application, Topically, 2 times a day, # 50 Gm, 3 Refills, Maintenance, 08/02/20 12:54:00 EDT, Cream, [facility], Partial fill upon patient request if the prescription is for a schedule II opioid drug., 1 application Topically 2... Start Date: 08/02/20 Status: Ordered hydrocortisone 1% topical cream 1 application, Topically, 2 times a day, Apply to rash areas, # 60 Gm, 3 Refills, Maintenance, 06/04/19 14:52:00 EDT, Cream, [facility] 3, 1 application Topically 2 times [...] 2 Refills, Maintenance, 09/14/20 17:22:00 EDT, Cream, [facility]/pharmacy #[id number], Partial fill upon patient request if the prescription is for a schedule II opioid drug., 1 application Topically 3 times a day,... Start Date: 09/14/20 Status: Ordered Nizoral 2% topical shampoo See Instructions, 1 applicator Topically 3x per week, # 120 mL, 3 Refills, Soft Stop, 08/12/20 10:30:00 EDT, [facility]/pharmacy #[id number], 1 applicator Topically 3x per week, 158, cm, 07/23/20 11:13:00 EDT, Height, 82, kg, 07/21/20 20:18:00 EDT, Dry Weight Start Date: 08/12/20 Status: Ordered permethrin 5% topical cream 1 application, Topically, Once, to skin head to feet, remove by washing after 8 to 14 hours, # 60 Gm, 0 Refills, Soft Stop, 07/27/20 11:50:00 EDT, Cream, [facility], 1 applicationTopically Once,Instr:to skin head to feet, remove b... Start Date: 07/27/20 Status: Ordered predniSONE 5 mg oral tablet 1 tablet = 5 mg, By Mouth, 3 times a day, # 30 tablet, 0 Refills, Maintenance, 09/14/20 17:20:00 EDT, Tablet, [facility]/pharmacy #[id number], Partial fill upon patient request if the prescription is for a schedule II opioid drug., 158, cm, 09/08/20 14:36:00 EDT,... Start Date: 09/14/20 Stop Date: 09/24/20 Status: Ordered selenium sulfide 2.5% topical lotion See Instructions, APPLY TOPICALLY TO AFFECTED AREA EVERY DAY FOR 7 DAYS, # 120 mL, 3 Refills, Soft Stop, 07/23/20 11:40:00 EDT, [facility], 7, APPLY TOPICALLY TO AFFECTED AREA EVERY DAY FOR 7 DAYS, 158, cm, 07/23/20 11:13:00 EDT, H... Start Date: 07/23/20 Status: Ordered Shingrix intramuscular injection = 0.5 mL, Intramuscular, Once, repeat dose in 2 to 6 months, # 2 each, 0 Refills, Soft Stop, 05/27/20 11:03:00 EDT, Powder, [facility], Partial fill upon patient request if the [...] 1 Refills, Maintenance, 03/10/20 18:21:00 EST, Cream, [facility] 3, Partial fill upon patient request [...] 0 Refills, Maintenance, 07/23/20 11:37:00 EDT, Gel, [facility], 1 application Topically 4 times a day, 158, cm, 07/23/20 11:13:00 EDT, Height, 82, kg, 07/21/20 20:18:00 EDT, Dry We... Start Date: 07/23/20 Status: Ordered Problem List Condition Effective Dates Status Health Status Inform ant Opioid type dependence, continuous(Confirmed) 1 Active 1Client had been seen by Jazz Francois at [facility]. Client has no-showed to last appt and today.She will be targetted for closing if she does not responde to correspondence that will be sent on 02/14/13 Social History Social History Type Response Smoking Status 5-9 cigarettes (betw een 1/4 to 1/2 pack)/day in last 30 days entered on: 09/08/20 Sex
--- OUTSIDE RECORDS SUMMARY | 2022-11-03 10:37 | XMS_ITS | Continuity of Care Document ---
Author Name Unknown Organization [facility] Address Unknown Care Team Providers Care Retail Beauty Specialist Name Role Phone Ilya De Leon MD Primary Care Physician [place] [facility] [place] 09/13/21 - 10/13/21 [facility] Allergies, Adverse Reactions, Alerts Substance Reaction [...] Refills, Maintenance, 06/29/21 15:10:00 EDT, ER Tablet, [facility]/pharmacy #[id number], Partial fill upon patient request if the prescription is for a schedule II opioid drug., 155, cm, 05/30/21 15:34:... Start Date: 06/29/21 Status: Ordered capsaicin 0.025% topical cream See Instructions, APPLY TO AFFECTED AREA TWICE A DAY, # 60 Gm, 1 Refills, [id number], 30, APPLY TO AFFECTED AREA TWICE A DAY, 155, cm, 05/30/21 15:34:00 EDT, Height, 95.9, kg, 12/05/20 10:08:00 EDT, Dry Weight Start Date: 05/31/21 Status: Ordered Cavilon Emollient topical cream 1 application, Topically, 2 times a day, PRN for dry skin, # 454 Gm, 1 Refills, Maintenance, 09/30/19 16:26:00 EDT, Cream, [facility] 3, 1 application Topically 2 times a day,PRN:for dry skin, 158, cm, 08/27/19 13:02:00 EDT, Height, 76, kg... Start Date: 09/30/19 Status: Ordered clonazePAM 0.5 mg oral tablet 1 tablet = 0.5 mg, By Mouth, Daily at bedtime, May fill 10/14/21, # 7 tablet, 0 Refills, Maintenance,10/12/21 15:30:00 EDT, Tablet, [facility], DEPUTY ASSESSOR reviewed, covering for Dr. De Leon, 155, cm, 09/28/21 12:06:00 EDT, Height, 106.5, k... Start Date: 10/12/21 Stop Date: 10/19/21 Status: Ordered clonazePAM 0.5 mg oral tablet 1 tablet = 0.5 mg, By Mouth, Daily at bedtime, May cammie l 09/22/21, # 7 tablet, 0 Refills, Maintenance, 09/21/21 7:19:00 EDT, Tablet, [facility], DEPUTY ASSESSOR reviewed, covering for Dr. De Leon, 155, cm, 09/15/21 10:14:00 EDT, Height, 106.5,... Start Date: 09/21/21 Stop Date: 09/28/21 Status: Ordered coal tar topical 2% foam 1 application, Topically, 4 times a day, # 100 Gm, 1 Refills, Maintenance, 09/28/21 12:24:00 EDT, Foam, [facility], Partial fill upon patient request if the prescription is for a schedule II opioid drug., 1 application Topically 4... Start Date: 09/28/21 Status: Ordered Dovonex 0.005% topical cream 1 applicator, Topically, 2 times a day, # 60 Gm, 5 Refills, Maintenance, 07/07/19 17:30:00 EDT, [facility] 3, 1 applicator Topically 2 times a [...] Gm, 0 Refills, Maintenance, 04/27/20 14:35:00 EST, [place], [facility] 3, Partial fill upon patient request if theprescription is for a schedule II opioid drug., 1... Start Date: 04/27/20 Stop Date: 05/27/20 Status: Ordered halobetasol 0.05% topical ointment See Instructions, APPLY A THIN FILM TO THE AFFECTED SKIN AND RUB IN GENTLY AND COMPLETELY TWICE A DAY, # 50 Gm, 1 Refills, [facility] [id number], 30, APPLY A THIN FILM TO THE AFFECTED SKIN AND RUB IN GENTLY AND COMPLETELY TWICE A DAY, 155, cm, 12/05/20 10:0... Start Date: 03/15/21 Status: Ordered hydrocortisone 1% topical cream 1 application, Topically, 2 times a day, # 30 Gm, 0 Refills, Maintenance, 06/17/21 11:42:00 EDT, Cream, [facility] 3, Partial fill upon patient request if the prescription is for a schedule II opioid drug., 1 application Topically 2 times... Start Date: 06/17/21 Status: Ordered hydrOXYzine hydrochloride 25 mg oral tablet 1 capsule, By Mouth, 3 times a day, PRN for itching, for 30 days, # 90 capsule, 1 Refills, Acute 10/23/21 14:41:00 EDT, 08/24/21 14:41:00 EDT, Capsule, [facility], Partial fill upon patient request if the prescription is for a sche... Start Date: 08/24/21 Stop Date: 10/23/21 Status: Ordered ketoconazole 2% topical shampoo See Instructions, APPLY 1 APPLICATOR TOPICALLY 3X PER WEEK, # 120 mL, 3 Refills, [facility] [id number], 30, APPLY 1 APPLICATOR TOPICALLY 3X PER WEEK, 155, cm, 05/30/21 15:34:00 EDT, Height, 95.9, kg, 12/05/20 10:08:00 EDT, Dry Weight Start Date: 08/02/21 Status: Ordered loratadine 10 mg oral tablet 1, tablet, By Mouth, Daily, # 15 tablet, Refills 5, Tot. Refills 5, Maintenance, 08/19/21 9:15:00 EDT, [id number], 155, cm, 05/30/21 15:34:00 EDT, [...] Refills, Soft Stop, 07/27/20 11:50:00 EDT, Cream, [facility], 1 applicationTopically Once,Instr:to skin head to feet, remove b... Start Date: 07/27/20 Status: Ordered predniSONE 10 mg oral tablet 1 tablet = 10 mg, By Mouth, 2 times a day, for 7 days, Fill 10/14/21, # 14 tablet, 0 Refills, Physician Stop 10/19/21 15:30:00 EDT, 10/12/21 15:30:00 EDT, [facility], 155, cm, 09/28/21 12:06:00 EDT, Height, 106.5, kg, 09/14/21 9:38:0... Start Date: 10/12/21 Stop Date: 10/19/21 Status: Ordered selenium sulfide 2.5% topical lotion See Instructions, APPLY TOPICALLY TO AFFECTED AREA EVERY DAY FOR 7 DAYS, # 120 mL, 3 Refills, Soft Stop, 09/28/21 12:25:00 EDT, [facility], 7, APPLY TOPICALLY TO AFFECTED AREA EVERY DAY FOR 7 DAYS, 155, cm, 09/28/21 12:06:00 EDT, H... Start Date: 09/28/21 Status: Ordered tiZANidine 2 mg oral tablet 1, tablet, By Mouth, 3 times a day, # 60 tablet, Refills 0, Route to Pharmacy Electronically, [id number], 155, cm, 05/03/21 14:39:00 EST, Height, 95.9, kg, 12/05/20 10:08:00 EDT, Dry Weight Start Date: 05/09/21 Status: Ordered traMADol 50 mg oral tablet 1 tablet = 50 mg, By Mouth, Every 8 hours, PRN Pain , Severe, for 7 days, for 10/14/21, # 21 tablet, 0 Refills, Acute 10/19/21 15:30:00 EDT, 10/12/21 15:30:00 EDT, Tablet, [facility], Partial fill upon patient request if the prescrip... Start Date: 10/12/21 Stop Date: 10/19/21 Status: Ordered Problem List Condition Effective Dates Status Health Status Inform ant Anxiety(Confirmed) Active Opioid type dependence, continuous(Confirmed) 1 Active Osteoarthritis of left knee(Confirmed) Active Psoriasis(Confirmed) Active Severe obesity(Confirmed) Active 1Client had been seen by Jazz Francois at [facility]. Client has no-showed to last appt and today.She will be targetted for closing if she does not responde to correspondence that will be sent on 02/14/13 Social History Social History Type Response Smoking Status 10 or more cigarette s (1/2 pack or more)/day in last 30 days entered on: 04/18/21 Sex
--- OUTSIDE RECORDS SUMMARY | 2022-11-03 10:37 | XMS_ITS | Continuity of Care Document ---
Author Name Unknown Organization [facility] Address [address] [place] [address]- Care Team Providers Care Auto Finance Sales Rep Name Role Phone Ilya De Leon MD Primary Care Physician Encounter [facility] [place] Date(s): 09/29/19 - 10/29/19 [facility]/[address] [address]- [facility] Allergies, Adverse Reactions, Alerts Substance Reaction Severity [...] MULTIDOSE ADMINISTERED AT [facility] Medications Cavilon Emollient topical cream 1 application, Topically, 2 times a day, PRN for dry skin, # 454 Gm, 1 Refills, Maintenance, 09/30/19 16:26:00 EDT, Cream, [facility], 1 application Topically 2 times a day,PRN:for dry skin, 158, cm, 08/27/19 13:02:00 EDT, Height, 76, kg... Start Date: 09/30/19 Status: Ordered Claritin 10 mg oral tablet 10 mg, 1, tablet, By Mouth, Daily, # 15 tablet, Refills 3, Tot. Refills 3, Maintenance, 11/06/18 8:33:38 EDT, Route to Pharmacy Electronically, [id number], [facility] Start Date: 11/06/18 Status: Ordered Dovonex 0.005% topical cream 1 applicator, Topically, 2 times a day, # 60 Gm, 5 Refills, Maintenance, 07/07/19 17:30:00 EDT, [facility], 1 applicator Topically 2 [...] 3 Refills, Maintenance, 06/04/19 14:52:00 EDT, Cream, [facility], 1 application Topically 2 [...] 0 Refills, Soft Stop, 10/18/19 13:38:00 EDT, [facility] 3, 158, cm, ... Start Date: 10/18/19 Status: Ordered Medrol Dosepak 4 mg oral tablet per label intructions, By Mouth, Once, as on label, # 1 each, 0 Refills, Soft Stop, 08/11/19 20:08:00 EDT, [facility] 3, 158, cm, 12/24/18 10:25:00 EDT, [...] 0 Refills, Soft Stop, 08/27/19 14:17:00 EDT, [facility], 1 applicator Topically 3x per week, 158, [...] 3 Refills, Soft Stop, 09/23/19 15:13:00 EDT, [facility], 7, APPLY TOPICALLY TO [...] 0 Refills, Maintenance, 04/06/19 20:19:00 EST, Tablet, [facility], 158, cm, 12/24/18 10:25:00 EDT, Height, 75.5, kg, 04/06/19 17:01:00 EST, Dry Weight Start Date: 04/06/19 Stop Date: 04/13/19 Status: Ordered Problem List Condition Effective Dates Status Health Status Inform ant Opioid type dependence, continuous(Confirmed) 1 Active 1Client had been seen by Jazz Francois at [facility]. Client has no-showed to last appt and today.She will be targetted for closing if she does not responde to correspondence that will be sent on 02/14/13 Social History Social History Type Response Smoking Status 10 or more cigarette s (1/2 pack or more)/day in last 30 days entered on: 01/24/18 Sex
--- OUTSIDE RECORDS SUMMARY | 2022-11-03 10:37 | XMS_ITS | Continuity of Care Document ---
Author Name Unknown Organization [facility] Address [address] [place] [address]- Care Team Providers Care Sustainability Purchasing Agent Name Role Phone Ilya De Leon MD Primary Care Physician Encounter [facility] [place] Date(s): 12/10/19 - 01/09/20 [facility]/[address] [address]- [facility] Allergies, Adverse Reactions, Alerts Substance [...] 01/30/11 Gi lizbeth 1Admin Note: ADMIN BY [facility] 2Admin Note: FLUVIRIN MULTIDOSE ADMINISTERED AT [facility] Medications Cavilon Emollient topical cream 1 application, Topically, 2 times a day, PRN for dry skin, # 454 Gm, 1 Refills, Maintenance, 09/30/19 16:26:00 EDT, Cream, [facility], 1 application Topically 2 times a day,PRN:for dry skin, 158, cm, 08/27/19 13:02:00 EDT, Height, 76, kg... Start Date: 09/30/19 Status: Ordered Claritin 10 mg oral tablet 10 mg, 1, tablet, By Mouth, Daily, # 15 tablet, Refills 3, Tot. Refills 3, Maintenance, 11/06/18 8:33:38 EDT, Route to Pharmacy Electronically, [id number], [facility] Start Date: 11/06/18 Status: Ordered Dovonex 0.005% topical cream 1 applicator, Topically, 2 times a day, # 60 Gm, 5 Refills, Maintenance, 07/07/19 17:30:00 EDT, [facility], 1 applicator Topically 2 times a [...] 3 Refills, Maintenance, 06/04/19 14:52:00 EDT, Cream, [facility], 1 application Topically 2 [...] # 42 tablet, 0 Refills, Soft Stop, 01/09/20 15:27:00 EDT, [facility] 3, 158, cm, ... Start Date: 01/09/20 Status: Ordered Medrol Dosepak 4 mg oral tablet per label intructions, By Mouth, Once, as on label, # 1 each, 0 Refills, Soft Stop, 08/11/19 20:08:00 EDT, [facility] 3, 158, cm, 12/24/18 10:25:00 [...] 0 Refills, Soft Stop, 08/27/19 14:17:00 EDT, [facility], 1 applicator Topically 3x per week, [...] DAYS, # 120 mL, 3 Refills, Maintenance, [facility], 7, APPLY TOPICALLY TO AFFECTED [...] 0 Refills, Maintenance, 04/06/19 20:19:00 EST, Tablet, [facility], 158, cm, 12/24/18 10:25:00 EDT, Height, 75.5, kg, 04/06/19 17:01:00 EST, Dry Weight Start Date: 04/06/19 Stop Date: 04/13/19 Status: Ordered Problem List Condition Effective Dates Status Health Status Inform ant Opioid type dependence, continuous(Confirmed) 1 Active 1Client had been seen by Jazz Francois at [facility]. Client has no-showed to last appt and today.She will be targetted for closing if she does not responde to correspondence that will be sent on 02/14/13 Social History Social History Type Response Smoking Status 10 or more cigarette s (1/2 pack or more)/day in last 30 days entered on: 01/24/18 Sex
--- OUTSIDE RECORDS SUMMARY | 2022-11-03 10:37 | XMS_ITS | Continuity of Care Document ---
Author Name Unknown Organization [facility] Address [address] [place] [address]- Care Team Providers Care Uranium Processing Supervisor Name Role Phone Ilya De Leon MD Primary Care Physician [place] [facility] [place] 02/16/22 [facility]/[address] [address]- [place] Allergies, Adverse Reactions, Alerts Substance Reaction [...] Maintenance, 06/29/21 15:10:00 EDT, ER Tablet, [facility]/pharmacy #[id number], Partial fill upon patient request if the prescription is for a schedule II opioid drug., 155, cm, 05/30/21 15:34:... Start Date: 06/29/21 Status: Ordered capsaicin 0.025% topical cream See Instructions, APPLY TO AFFECTED AREA TWICE A DAY, # 60 Gm, 1 Refills, [id number], 30, APPLY TO AFFECTED AREA TWICE A DAY, 155, cm, 05/30/21 15:34:00 EDT, Height, 95.9, kg, 12/05/20 10:08:00 EDT, Dry Weight Start Date: 05/31/21 Status: Ordered Cavilon Emollient topical cream 1 application, Topically, 2 times a day, PRN for dry skin, # 454 Gm, 1 Refills, Maintenance, 09/30/19 16:26:00 EDT, Cream, [facility], 1 application Topically 2 times a day,PRN:for dry skin, 158, cm, 08/27/19 13:02:00 EDT, Height, 76, kg... Start Date: 09/30/19 Status: Ordered clonazePAM 0.5 mg oral tablet 1 tablet = 0.5 mg, By Mouth, Daily at bedtime, May fill 02/10/22 and weekly on Fridays for3 weeks, #7 tablet, 2 Refills, Maintenance, 02/07/22 15:55:00 EST, Tablet, [facility], PARTS PRODUCT ANALYST reviewed, covering for Dr. De Leon, 155, cm, 01/23... Start Date: 02/07/22 Stop Date: 02/28/22 Status: Ordered coal tar topical 1% lotion See Instructions, applyTopically Daily at bedtime, # 120 mL, 3 Refills, Maintenance, 10/26/21 15:45:00 EDT, [facility], Partial fill upon patient request if the prescription is for a schedule II opioid drug., applyTopically Daily a... Start Date: 10/26/21 Status: Ordered Dovonex 0.005% topical cream 1 applicator, Topically, 2 times a day, # 60 Gm, 5 Refills, Maintenance, 07/07/19 17:30:00 EDT, [facility], 1 applicator Topically 2 times a day,x30 days, 158, cm, 12/24/18 10:25:00 EDT, Height, 76, kg, 04/12/19 15:31:00 EST, Dry Weight Start Date: 07/07/19 Stop Date: 01/03/20 Status: Ordered Eucerin Unscented topical lotion See Instructions, apply as frequently as needed, # 1 each, 0 Refills, Maintenance, 09/28/21 12:23:00 EDT, [facility], Partial fill upon patient request if the prescription is for a schedule II opioid drug., apply as frequently as n... Start Date: 09/28/21 Status: Ordered fluticasone 50 mcg/inh nasal spray 1 sprays, Nares, Both, 2 times a day, in each nostril. for allergies, # 16 Gm, 0 Refills, Maintenance, 04/27/20 14:35:00 EST, [place], [facility] 3, Partial fill upon patient request if theprescription is for a schedule II opioid drug., 1... Start Date: 04/27/20 Stop Date: 05/27/20 Status: Ordered halobetasol 0.05% topical ointment See Instructions, APPLY A THIN FILM TO THE AFFECTED SKIN AND RUB IN GENTLY AND COMPLETELY TWICE A DAY, # 50 Gm, 1 Refills, Maintenance, 10/26/21 15:44:00 EDT, [facility], 30, APPLY A THIN FILM TO THE AFFECTED SKIN AND RUB IN GENTLY... Start Date: 10/26/21 Status: Ordered ketoconazole 2% topical shampoo See Instructions, APPLY 1 APPLICATOR TOPICALLY 3X PER WEEK, # 120 mL, 3 Refills, Maintenance, 12/27/21 19:30:00 EDT, [id number], 30, APPLY 1 APPLICATOR TOPICALLY 3X PER WEEK, 155, cm, 12/12/21 16:00:00 EDT, Height, 106.5, kg, 09/14/21 9:38:00 EDT... Start Date: 12/27/21 Status: Ordered loratadine 10 mg oral tablet 1, tablet, By Mouth, Daily, # 90 tablet, Refills 1, Tot. Refills 1, Maintenance, 11/01/21 15:19:00 EDT, Route to Pharmacy Electronically, [facility]/pharmacy #[id number], 155, cm, 09/28/21 12:06:00 EDT, Height, 106.5, kg, 09/14/21 9:38:00 EDT, Dry Weight Start Date: 11/01/21 Status: Ordered Methadone By Mouth, 0 Refills, Maintenance Start Date: 12/25/11 Status: Ordered mupirocin 2% topical cream 1 application, Topically, 3 times a day, # 30 Gm, 2 Refills, Maintenance, 03/08/21 10:26:00 EST, Cream, [facility]/pharmacy #[id number], Partial fill upon patient request if the prescription is for a schedule II opioid drug., 1 application Topically 3 times a day,... Start Date: 03/08/21 Status: Ordered permethrin 5% topical cream 1 application, Topically, Once, to skin head to feet, remove by washing after 8 to 14 hours, # 60 Gm, 0 Refills, Soft Stop, 07/27/20 11:50:00 EDT, Cream, [facility], 1 applicationTopically Once,Instr:to skin head to feet, remove b... Start Date: 07/27/20 Status: Ordered predniSONE 10 mg oral tablet See Instructions, May fill 02/10/22 and weekly on Fridays for 3 weeks, # 14 tablet, 2 Refills, 02/07/22 15:55:00 EST, [facility], 155, cm, 01/23/22 14:00:00 EST, Height, 106.5, kg,09/14/21 9:38:00 EDT, Dry Weight Start Date: 02/07/22 Status: Ordered selenium sulfide 2.5% topical lotion See Instructions, APPLY TOPICALLY TO AFFECTED AREA EVERY DAY FOR 7 DAYS, # 120 mL, 3 Refills, Soft Stop, 10/26/21 15:43:00 EDT, [facility], 7, APPLY TOPICALLY TO AFFECTED AREA EVERY DAY FOR 7 DAYS, 155, cm, 09/28/21 12:06:00 EDT, H... Start Date: 10/26/21 Status: Ordered tiZANidine 2 mg oral tablet 1, tablet, By Mouth, 3 times a day, # 60 tablet, Refills 0, Route to Pharmacy Electronically, [id number], 155, cm, 05/03/21 14:39:00 EST, Height, 95.9, kg, 12/05/20 10:08:00 EDT, Dry Weight Start Date: 05/09/21 Status: Ordered traMADol 50 mg oral tablet 1 tablet = 50 mg, By Mouth, Every 8 hours, PRN Pain , Severe, for 7 days, May fill 02/10/22 and weekly on Fridays for 3 weeks, # 21 tablet, 2 Refills, Acute 02/28/22 15:55:00 EST, 02/07/22 15:55:00 EST, Tablet, [facility] [place], Partial f... Start Date: 02/07/22 Stop Date: [...] Personnel Name: Ilya De Leon MD Position: [facility] Primary Care Physician Member Role: PCP Address: Address: [address] [place] [id number]- Care Team Related Persons Name: JD ALVAREZ Address: home [address] [place] [id number]
--- OUTSIDE RECORDS SUMMARY | 2022-11-03 10:37 | XMS_ITS | Continuity of Care Document ---
Author Name Unknown Organization [facility] Address [address] [place] [address]- Care Team Providers Care Vascular Neurologist Name Role Phone Ilya De Leon MD Primary Care Physician Encounter [facility] [place] Date([place]): 06/25/20 - 07/28/20 [facility]/[address] [address]- Attending Physician: Justice Paez MD Admitting Physician: Justice Paez MD Allergies, Adverse Reactions, Alerts Substance Reaction Severity Status penicillin Rash Active aspirin Ibuprofen tight throat Rash Active morphine HAND SWELLING Active Toradol Rash Active Motrin tight throat Rash Active Imitrex Chest pain Active Compazine throat swells Active Reglan Agitated Active trimethoprim-sulfamethoxazole DS 1 Carolyn sears [facility]iv[facility] 17-MAY-2013 07:29:57<$> Unknown Active dehydroepiandrosterone 2 Chest pain Act julienne 1By phone, reported hives and throat locking up after taking doses of Bactrim repeatedly for several days 2DHEA Immunizations Given and Recorded Vaccine Date Status Refusal Reason influenza virus vaccine, inactivated 1 03/22/12 Gi lizbteh influenza virus vaccine, inactivated 2 01/30/11 Gi lizbeth 1Admin Note: ADMIN BY [facility] 2Admin Note: FLUVIRIN MULTIDOSE ADMINISTERED AT [facility] Medications Cavilon Emollient topical cream 1 application, Topically, 2 times a day, PRN for dry skin, # 454 Gm, 1 Refills, Maintenance, 09/30/19 16:26:00 EDT, Cream, [facility], 1 application Topically 2 times a day,PRN:for dry skin, 158, cm, 08/27/19 13:02:00 EDT, Height, 76, kg... Start Date: 09/30/19 Status: Ordered cetirizine 10 mg oral tablet 1 tablet = 10 mg, By Mouth, Daily, for allergies. Do NOT take with claritin, # 30 tablet, 0 Refills, Maintenance, 07/23/20 11:37:00 EDT, Tablet, [facility], Partial fill upon patient request if the prescription is for a schedule II... Start Date: 07/23/20 Stop Date: 08/22/20 Status: Ordered Claritin 10 mg oral tablet 10 mg, 1, tablet, By Mouth, Daily, # 15 tablet, Refills 3, Tot. Refills 3, Maintenance, 11/06/18 8:33:38 EDT, Route to Pharmacy Electronically, [id number], [facility] Start Date: 11/06/18 Status: Ordered diphenhydrAMINE 25 mg oral tablet 1 tablet = 25 mg, By Mouth, 3 times a day, PRN as needed for itching, Will cause drowsiness, # 30 tablet, 0 Refills, Maintenance, 07/16/20 15:11:00 EDT, Tablet, [facility], Partial fill upon patient request if the prescription is f... Start Date: 07/16/20 Status: Ordered Dovonex 0.005% topical cream 1 applicator, Topically, 2 times a day, # 60 Gm, 5 Refills, Maintenance, 07/07/19 17:30:00 EDT, [facility] 3, 1 applicator Topically 2 times [...] Gm, 0 Refills, Maintenance, 04/27/20 14:35:00 EST, [place], [facility] 3, Partial fill upon patient request if theprescription is for a schedule II opioid drug., 1... Start Date: 04/27/20 Stop Date: 05/27/20 Status: Ordered hydrocortisone 1% topical cream 1 application, Topically, 2 times a day, Apply to rash areas, # 60 Gm, 3 Refills, Maintenance, 06/04/19 14:52:00 EDT, Cream, [facility] 3, 1 application Topically 2 times a day,Instr:Apply to rash areas, 158, cm, 12/24/18 10:25:00 EDT, [place]i... Start Date: 06/04/19 Status: Ordered loratadine 10 mg oral tablet [...] 0 Refills, Soft Stop, 07/07/20 13:01:00 EDT, [facility] 3, 158, cm, 06/23/20 13:26:00 EDT... Start Date: 07/07/20 Status: Ordered Methadone By Mouth, 0 Refills, Maintenance Start Date: 12/25/11 Status: Ordered mupirocin 2% topical ointment 1 application, Topically, 3 times a day, for 7 days, For lesion on right upper arm, # 22 Gm, 0 Refills, Acute 07/30/20 11:39:00 EDT, 07/23/20 11:39:00 EDT, [facility], Partial fill upon patient request if the prescription is for a... Start Date: 07/23/20 Stop Date: 07/30/20 Status: Ordered Nizoral 2% topical shampoo See Instructions, 1 applicator Topically 3x per week, # 120 mL, 10 Refills, Soft Stop, 05/13/20 11:05:00 EST, [facility], 1 applicator Topically 3x per week, 158, cm, 05/10/20 11:36:00 EST, Height, 76, kg, 04/12/19 15:31:00 EST, Dry Weight Start Date: 05/13/20 Status: Ordered oxyCODONE 5 mg oral tablet 5 mg, 1, tablet, By Mouth, Every 6 hours, PRN, # 12 tablet, Refills 0, Tot. Refills 0, Acute 08/02/20 12:00:00 EDT, Pain , Severe, 07/23/20 11:48:00 EDT, Route to Pharmacy Electronically, [facility], Partial fill upon patient reque... Start Date: 07/23/20 Stop Date: 08/02/20 Status: Ordered permethrin 5% topical cream 1 application, Topically, Once, to skin head to feet, remove by washing after 8 to 14 hours, # 60 Gm, 0 Refills, Soft Stop, 07/27/20 11:50:00 EDT, Cream, [facility], 1 applicationTopically Once,Instr:to skin head to feet, remove b... Start Date: 07/27/20 Status: Ordered predniSONE 10 mg oral tablet See Instructions, 3 tablet daily for 7 days then 2 tablet daily for 7 days starting on 07/28/20, # 35 tablet, 0 Refills, Maintenance, 07/28/20 9:46:00 EDT, [facility], Partial fillupon patient request if the prescription is for a s... Start Date: 07/28/20 Status: Ordered selenium sulfide 2.5% topical lotion See Instructions, APPLY TOPICALLY TO AFFECTED AREA EVERY DAY FOR 7 DAYS, # 120 mL, 3 Refills, Soft Stop, 07/23/20 11:40:00 EDT, [facility], 7, APPLY TOPICALLY TO AFFECTED AREA EVERY DAY FOR 7 DAYS, 158, cm, 07/23/20 11:13:00 EDT, H... Start Date: 07/23/20 Status: Ordered Shingrix intramuscular injection = 0.5 mL, Intramuscular, Once, repeat dose in 2 to 6 months, # 2 each, 0 Refills, Soft Stop, 05/27/20 11:03:00 EDT, Powder, [facility], Partial fill upon patient request if the [...] 1 Refills, Maintenance, 03/10/20 18:21:00 EST, Cream, [facility] 3, Partial fill upon patient request if the prescription is fora schedule II opioid drug., 1 application Topically... Start Date: 03/10/20 Status: Ordered tetracycline 500 mg oral capsule 1 capsule = 500 mg, By Mouth, Every 6 hours, for 7 days, # 28 capsule, 0 Refills, Acute 07/30/20 11:52:00 EDT, 07/23/20 11:52:00 EDT, Capsule, [facility], Partial fill upon patient request if the prescription is for a schedule II o... Start Date: 07/23/20 Stop Date: 07/30/20 Status: Ordered Ultravate 0.05% ointment 1 application, [...] 0 Refills, Maintenance, 07/23/20 11:37:00 EDT, Gel, [facility], 1 application Topically 4 times a day, 158, cm, 07/23/20 11:13:00 EDT, Height, 82, kg, 07/21/20 20:18:00 EDT, Dry We... Start Date: 07/23/20 Status: Ordered Problem List Condition Effective Dates Status Health Status Inform ant Opioid type dependence, continuous(Confirmed) 1 Active 1Client had been seen by Jazz Francois at [facility]. Client has no-showed to last appt and today.She will be targetted for closing if she does not responde to correspondence that will be sent on 02/14/13 Social History Social History Type Response Tobacco Use: 4 or less cigar ettes(less than 1/4 pack)/day in last 30 days. Sex
--- OUTSIDE RECORDS SUMMARY | 2022-11-03 10:37 | XMS_ITS | Continuity of Care Document ---
Author Name Unknown Organization [facility] Address [address] [place] [id number]- Care Team Providers Care Home Care Specialist Name Role Phone Haley NEWMAN, Ilya Primary Care Physician Encounter [facility] [place] Date(s): 07/12/20 - 08/11/20 [facility]/[address] [address]- Allergies, Adverse Reactions, Alerts Substance Reaction Severity [...] 1 Refills, Maintenance, 09/30/19 16:26:00 EDT, Cream, [facility], 1 application Topically 2 times a day,PRN:for dry skin, 158, cm, 08/27/19 13:02:00 EDT, Height, 76, kg... Start Date: 09/30/19 Status: Ordered cetirizine 10 mg oral tablet 1 tablet = 10 mg, By Mouth, Daily, for allergies. Do NOT take with claritin, # 30 tablet, 0 Refills, Maintenance, 07/23/20 11:37:00 EDT, Tablet, [facility], Partial fill upon patient request if the prescription is for a schedule II... Start Date: 07/23/20 Stop Date: 08/22/20 Status: Ordered Claritin 10 mg oral tablet 10 mg, 1, tablet, By Mouth, Daily, # 15 tablet, Refills 3, Tot. Refills 3, Maintenance, 11/06/18 8:33:38 EDT, Route to Pharmacy Electronically, [id number], [facility] Start Date: 11/06/18 Status: Ordered diphenhydrAMINE 25 [...] Gm, 5 Refills, Maintenance, 07/07/19 17:30:00 EDT, [facility] 3, 1 applicator Topically 2 times [...] Gm, 0 Refills, Maintenance, 04/27/20 14:35:00 EST, [place], [facility], Partial fill upon patient request if theprescription is for a schedule II opioid drug., 1... Start Date: 04/27/20 Stop Date: 05/27/20 Status: Ordered halobetasol 0.05% topical cream 1 application, Topically, 2 times a day, # 50 Gm, 3 Refills, Maintenance, 08/02/20 12:54:00 EDT, Cream, [facility], Partial fill upon patient request if the prescription is for a schedule II opioid drug., 1 application Topically 2... Start Date: 08/02/20 Status: Ordered hydrocortisone 1% topical cream 1 application, Topically, 2 times a day, Apply to rash areas, # 60 Gm, 3 Refills, Maintenance, 06/04/19 14:52:00 EDT, Cream, [facility], 1 application Topically 2 [...] # 42 tablet, 0 Refills, Soft Stop, 08/06/20 11:18:00 EDT, [facility], 158, cm, 07/23/20 11:13:00 EDT... Start Date: 08/06/20 Status: Ordered Methadone By Mouth, 0 Refills, Maintenance Start Date: 12/25/11 Status: Ordered mupirocin 2% topical ointment 1 application, Topically, 3 times a day, for 7 days, For lesion on right upper arm, # 22 Gm, 0 Refills, Acute 08/13/20 10:17:00 EDT, 08/06/20 10:17:00 EDT, [facility] [facility] 3, Partial fill uponpatient request if the prescription is for a schedu... Start Date: 08/06/20 Stop Date: 08/13/20 Status: Ordered Nizoral 2% topical shampoo See Instructions, 1 applicator Topically 3x per week, # 120 mL, 10 Refills, Soft Stop, 05/13/20 11:05:00 EST, [facility] 3, 1 applicator Topically 3x per week, 158, cm, 05/10/20 11:36:00 EST, Height, 76, kg, 04/12/19 15:31:00 EST, Dry Weight Start Date: 05/13/20 Status: Ordered permethrin 5% topical cream 1 application, Topically, Once, to skin head to feet, remove by washing after 8 to 14 hours, # 60 Gm, 0 Refills, Soft Stop, 07/27/20 11:50:00 EDT, Cream, [facility], 1 applicationTopically Once,Instr:to skin head to feet, remove b... Start Date: 07/27/20 Status: Ordered predniSONE 10 mg oral tablet See Instructions, continue 2 tablets daily fror 10 days more, # 20 tablet, 0 Refills, Maintenance, 08/06/20 10:19:00 EDT, [facility], Partial fill upon patient request if the prescription is for a schedule II opioid drug., 158, cm, 07/23... Start Date: 08/06/20 Status: Ordered selenium sulfide 2.5% topical lotion See Instructions, APPLY TOPICALLY TO AFFECTED AREA EVERY DAY FOR 7 DAYS, # 120 mL, 3 Refills, Soft Stop, 07/23/20 11:40:00 EDT, [facility], 7, APPLY TOPICALLY TO AFFECTED AREA [...] 1 Refills, Maintenance, 03/10/20 18:21:00 EST, Cream, [facility] 3, Partial fill upon patient request [...] 0 Refills, Maintenance, 07/23/20 11:37:00 EDT, Gel, [facility], 1 application Topically 4 times a day, 158, cm, 07/23/20 11:13:00 EDT, Height, 82, kg, 07/21/20 20:18:00 EDT, Dry We... Start Date: 07/23/20 Status: Ordered Problem List Condition Effective Dates Status Health Status Inform ant Opioid type dependence, continuous(Confirmed) 1 Active 1Client had been seen by Jazz Francois at [facility]. Client has no-showed to last appt and today.She will be targetted for closing if she does not responde to correspondence that will be sent on 02/14/13 Social History Social History Type Response Tobacco Use: 4 or less cigar ettes(less than 1/4 pack)/day in last 30 days. Sex
--- OUTSIDE RECORDS SUMMARY | 2022-11-03 10:37 | XMS_ITS | Continuity of Care Document ---
Author Name Unknown Organization [facility] Address [address] [place] [id number]- Care Team Providers Care Bottle Caser Name Role Phone Haley NEWMAN, Ilya Primary Care Physician Encounter [facility] Date(s): 07/05/20 - 08/04/20 [facility]/[address] [address]- Allergies, Adverse Reactions, Alerts Substance Reaction Severity [...] 1 Refills, Maintenance, 09/30/19 16:26:00 EDT, Cream, [facility], 1 application Topically 2 times a day,PRN:for dry skin, 158, cm, 08/27/19 13:02:00 EDT, Height, 76, kg... Start Date: 09/30/19 Status: Ordered cetirizine 10 mg oral tablet 1 tablet = 10 mg, By Mouth, Daily, for allergies. Do NOT take with claritin, # 30 tablet, 0 Refills, Maintenance, 07/23/20 11:37:00 EDT, Tablet, [facility], Partial fill upon patient request if the prescription is for a schedule II... Start Date: 07/23/20 Stop Date: 08/22/20 Status: Ordered Claritin 10 mg oral tablet 10 mg, 1, tablet, By Mouth, Daily, # 15 tablet, Refills 3, Tot. Refills 3, Maintenance, 11/06/18 8:33:38 EDT, Route to Pharmacy Electronically, [id number], [facility] Start Date: 11/06/18 Status: Ordered diphenhydrAMINE 25 mg oral tablet 1 tablet = 25 mg, By Mouth, 3 times a day, PRN as needed for itching, Will cause drowsiness, # 30 tablet, 0 Refills, Maintenance, 07/16/20 15:11:00 EDT, Tablet, [facility], Partial fill upon patient request if the prescription is f... Start Date: 07/16/20 Status: Ordered Dovonex 0.005% topical cream 1 applicator, Topically, 2 times a day, # 60 Gm, 5 Refills, Maintenance, 07/07/19 17:30:00 EDT, [facility] 3, 1 applicator Topically [...] Gm, 0 Refills, Maintenance, 04/27/20 14:35:00 EST, [place], Partial fill upon patient request if theprescription is for a schedule II opioid drug., 1... Start Date: 04/27/20 Stop Date: 05/27/20 Status: Ordered halobetasol 0.05% topical cream 1 application, Topically, 2 times a day, # 50 Gm, 3 Refills, Maintenance, 08/02/20 12:54:00 EDT, Cream, [facility], Partial fill upon patient request if the prescription is for a schedule II opioid drug., 1 application Topically 2... Start Date: 08/02/20 Status: Ordered hydrocortisone 1% topical cream 1 application, Topically, 2 times a day, Apply to rash areas, # 60 Gm, 3 Refills, Maintenance, 06/04/19 14:52:00 EDT, Cream, [facility] 3, 1 application Topically 2 times [...] 0 Refills, Soft Stop, 07/07/20 13:01:00 [facility], 158, cm, 06/23/20 13:26:00 EDT... Start Date: 07/07/20 Status: Ordered Methadone By Mouth, 0 Refills, Maintenance Start Date: 12/25/11 Status: Ordered Nizoral 2% topical shampoo See Instructions, 1 applicator Topically 3x per week, # 120 mL, 10 Refills, Soft Stop, 05/13/20 11:05:00 EST, [facility] 3, 1 applicator Topically 3x per week, 158, cm, 05/10/20 11:36:00 EST, Height, 76, kg, 04/12/19 15:31:00 EST, Dry Weight Start Date: 05/13/20 Status: Ordered permethrin 5% topical cream 1 application, Topically, Once, to skin head to feet, remove by washing after 8 to 14 hours, # 60 Gm, 0 Refills, Soft Stop, 07/27/20 11:50:00 EDT, Cream, [facility], 1 applicationTopically Once,Instr:to skin head to feet, remove b... Start Date: 07/27/20 Status: Ordered predniSONE 10 mg oral tablet See Instructions, 3 tablet daily for 7 days then 2 tablet daily for 7 days starting on 07/28/20, # 35 tablet, 0 Refills, Maintenance, 07/28/20 9:46:00 EDT, [facility], Partial fillupon patient request if the prescription is for a s... Start Date: 07/28/20 Status: Ordered selenium sulfide 2.5% topical lotion See Instructions, APPLY TOPICALLY TO AFFECTED AREA EVERY DAY FOR 7 DAYS, # 120 mL, 3 Refills, Soft Stop, 07/23/20 11:40:00 EDT, [facility], 7, APPLY TOPICALLY TO AFFECTED AREA EVERY DAY FOR 7 DAYS, 158, cm, 07/23/20 11:13:00 EDT, H... Start Date: 07/23/20 Status: Ordered Shingrix intramuscular injection = 0.5 mL, Intramuscular, Once, repeat dose in 2 to 6 months, # 2 each, 0 Refills, Soft Stop, 05/27/20 11:03:00 EDT, Powder, [facility], Partial fill upon patient request if [...] 1 Refills, Maintenance, 03/10/20 18:21:00 EST, Cream, [facility] 3, Partial fill upon patient [...] 0 Refills, Maintenance, 07/23/20 11:37:00 EDT, Gel, [facility], 1 application Topically 4 times a day, 158, cm, 07/23/20 11:13:00 EDT, Height, 82, kg, 07/21/20 20:18:00 EDT, Dry We... Start Date: 07/23/20 Status: Ordered Problem List Condition Effective Dates Status Health Status Inform ant Opioid type dependence, continuous(Confirmed) 1 Active 1Client had been seen by Jazz Francois at [facility]. Client has no-showed to last appt and today.She will be targetted for closing if she does not responde to correspondence that will be sent on 02/14/13 Social History Social History Type Response Tobacco Use: 4 or less cigar ettes(less than 1/4 pack)/day in last 30 days. Sex
--- OUTSIDE RECORDS SUMMARY | 2022-11-03 10:37 | XMS_ITS | Continuity of Care Document ---
Author Name Unknown Organization [facility] Address [address] [place] [address]- Care Team Providers Care Procedures Nurse Name Role Phone Ilya De Leon MD Primary Care Physician Encounter [facility](s): 05/24/22 - 06/23/22 [facility]/[address] [address]- [place] Allergies, Adverse Reactions, Alerts Substance Reaction [...] 02/06/10 Garrett rded 1Admin Note: ADMIN BY [facility] 2Admin Note: FLUVIRIN MULTIDOSE ADMINISTERED AT [facility] Medications acetaminophen 650 mg oral tablet, extended release 2 tablet = 1,300 mg, By Mouth, Every 8 hours, # 100 tablet, 1 Refills, Maintenance, 06/29/21 15:10:00 EDT, ER Tablet, [id number], Partial fill upon patient request if the prescription is for a schedule II opioid drug., 155, cm, 05/30/21 15:34:... Start Date: 06/29/21 Status: Ordered capsaicin 0.025% topical cream See Instructions, APPLY TO AFFECTED AREA TWICE A DAY, # 60 Gm, 1 Refills, [facility] [id number], 30, APPLY TO AFFECTED AREA TWICE A DAY, 155, cm, 05/30/21 15:34:00 EDT, Height, 95.9, kg, 12/05/20 10:08:00 EDT, Dry Weight Start Date: 05/31/21 Status: Ordered Cavilon Emollient topical cream 1 application, Topically, 2 times a day, PRN for dry skin, # 454 Gm, 1 Refills, Maintenance, 09/30/19 16:26:00 EDT, Cream, [facility], 1 application Topically 2 times a day,PRN:for dry skin, 158, cm, 08/27/19 13:02:00 EDT, Height, 76, kg... Start Date: 09/30/19 Status: Ordered clonazePAM 0.5 mg oral tablet 1 tablet = 0.5 mg, By Mouth, Daily at bedtime, May fill 06/16/22 and weekly on Fridays for 3 weeks, #7 tablet, 2 Refills, Maintenance, 06/14/22 11:37:00 EDT, Tablet, [facility], [facility] reviewed, covering for Dr. De Leon, 155, cm, 01/23... Start Date: 06/14/22 Stop Date: 07/05/22 Status: Ordered clonazePAM 0.5 mg oral tablet 1 tablet = 0.5 mg, By Mouth, Daily at bedtime, May fill 05/26/22 and weekly on Fridays for 3 weeks, # 7 tablet, 2 Refills, Maintenance, 05/24/22 10:44:00 EDT, Tablet, [facility], [employer] reviewed, covering for Dr. De Leon, 155, cm, 01/10... Start Date: 05/24/22 Stop Date: 06/14/22 Status: Ordered clonazePAM 0.5 mg oral tablet 1 tablet = 0.5 mg, By Mouth, Daily at bedtime, May fill 04/14/22 and weekly on Fridays for3 weeks, # 7 tablet, 2 Refills, Maintenance, 04/13/22 10:13:00 EST, Tablet, [facility], PMPreviewed, covering for Dr. De Leon, 155, cm, ... Start Date: 04/13/22 Stop Date: 05/04/22 Status: Ordered coal tar topical 1% lotion See Instructions, applyTopically Daily at bedtime, # 120 mL, 3 Refills, Maintenance, 10/26/21 15:45:00 EDT, [facility], Partial fill upon patient request if the prescription is for a schedule II opioid drug., applyTopically Daily a... Start Date: 10/26/21 Status: Ordered Dovonex 0.005% topical cream 1 applicator, Topically, 2 times a day, # 60 Gm, 5 Refills, Maintenance, 05/24/22 12:41:00 EDT, [facility], 1 applicator Topically 2 times a day,x30 days, 155, cm, 01/23/22 14:00:00 EST, Height, 106.5, kg, 09/14/21 9:38:00 EDT, Dry... Start Date: 05/24/22 Stop Date: 11/20/22 Status: Ordered Eucerin Unscented topical lotion See Instructions, apply as frequently as needed, # 1 each, 0 Refills, Maintenance, 09/28/21 12:23:00 EDT, [facility], Partial fill upon patient request if the prescription is for a schedule II opioid drug., apply as frequently as n... Start Date: 09/28/21 Status: Ordered fluticasone 50 mcg/inh nasal spray 1 sprays, Nares, Both, 2 times a day, in each nostril. for allergies, # 16 Gm, 0 Refills, Maintenance, 04/27/20 14:35:00 EST, [place], [facility] 3, Partial fill upon patient request if theprescription is for a schedule II opioid drug., 1... Start Date: 04/27/20 Stop Date: 05/27/20 Status: Ordered halobetasol 0.05% topical ointment See Instructions, APPLY A THIN FILM TO THE AFFECTED SKIN AND RUB IN GENTLY AND COMPLETELY TWICE A DAY, # 50 Gm, 1 Refills, Maintenance, 10/26/21 15:44:00 EDT, [facility], 30, APPLY A THIN FILM TO THE AFFECTED SKIN AND RUB IN GENTLY... Start Date: 10/26/21 Status: Ordered ketoconazole 2% topical shampoo See Instructions, APPLY 1 APPLICATOR TOPICALLY 3X PER WEEK, # 120 mL, 3 Refills, Maintenance, 05/16/22 8:48:00 EST, [id number], 30, APPLY 1 APPLICATOR TOPICALLY 3X PER WEEK, 155, cm, 01/23/22 14:00:00 EST, Height, 106.5, kg, 09/14/21 9:38:00 EDT,... Start Date: 05/16/22 Status: Ordered loratadine 10 mg oral tablet 1, tablet, By Mouth, Daily, # 90 tablet, Refills 1, Maintenance, 05/23/22 16:24:00 EDT, Route to Pharmacy Electronically, [facility] [id number], 155, cm, 01/23/22 14:00:00 EST, Height, 106.5, [...] Refills, Soft Stop, 07/27/20 11:50:00 EDT, Cream, [facility], 1 applicationTopically Once,Instr:to skin head to feet, remove b... Start Date: 07/27/20 Status: Ordered predniSONE 10 mg oral tablet See Instructions, May fill 06/16/22 and weekly on Fridays for 3 weeks, # 14 tablet, 2 Refills, 06/14/22 11:37:00 EDT, [facility], 155, cm, 01/23/22 14:00:00 EST, Height, 106.5, kg, 09/14/21 9:38:00 EDT, Dry Weight Start Date: 06/14/22 Status: Ordered predniSONE 10 mg oral tablet See Instructions, May fill 05/26/22 and weekly on Fridays for 3 weeks, # 14 tablet, 2 Refills, 05/24/22 10:44:00 EDT, [facility], 155, cm, 01/23/22 14:00:00 EST, Height, 106.5, kg,09/14/21 9:38:00 EDT, Dry Weight Start Date: 05/24/22 Status: Ordered predniSONE 10 mg oral tablet See Instructions, May fill and weekly on Fridays for 3 weeks, # 14 tablet, 2 Refills, 04/13/22 10:13:00 EST, [facility], 155, cm, 01/23/22 14:00:00 EST, Height, 106.5, kg,09/14/21 9:38:00 EDT, Dry Weight Start Date: 04/13/22 Status: Ordered selenium sulfide 2.5% topical lotion See Instructions, APPLY TOPICALLY TO AFFECTED AREA EVERY DAY FOR 7 DAYS, # 120 mL, 3 Refills, Soft Stop, 10/26/21 15:43:00 EDT, [facility], 7, APPLY TOPICALLY TO AFFECTED AREA EVERY DAY FOR 7 DAYS, 155, cm, 09/28/21 12:06:00 EDT, H... Start Date: 10/26/21 Status: Ordered tiZANidine 2 mg oral tablet 1, tablet, By Mouth, 3 times a day, # 60 tablet, Refills 0, Route to Pharmacy Electronically, [facility] [id number], 155, cm, 05/03/21 14:39:00 EST, Height, 95.9, kg, 12/05/20 10:08:00 EDT, Dry Weight Start Date: 05/09/21 Status: Ordered traMADol 50 mg oral tablet 1 tablet = 50 mg, By Mouth, Every 8 hours, PRN Pain , Severe, for 7 days, May fill 06/16/22 and weekly on Fridays for 3 weeks, # 21 tablet, 2 Refills, Acute 07/05/22 11:37:00 EDT, 06/14/22 11:37:00 EDT, Tablet, [facility], Partial f... Start Date: 06/14/22 Stop Date: [...] Personnel Name: Ilya De Leon MD Position: [facility] Primary Care Physician Member Role: PCP Address: Address: [address] [place] [address]- Care Team Related Persons Name: JD ALVAREZ Address: home [address] [place] [id number]
--- OUTSIDE RECORDS SUMMARY | 2022-11-03 10:37 | XMS_ITS | Continuity of Care Document ---
Author Name Unknown Organization [facility] Address [address] [place] [address]- Care Team Providers Care Senior Commissary Agent Name Role Phone Ilya De Leon MD Primary Care Physician Encounter [facility] [place] Date(s): 04/12/19 - 04/12/[address] [address]- [place] Encounter Diagnosis Itching(Final) - 04/12/19 Discharge Disposition: A-D/C Walkout Attending Physician: Tayo Coats DO Admitting Physician: Tayo Coats DO Referring Physician: Not on Staff, Referring [...] 11/06/18 8:33:38 EDT, Route to Pharmacy Electronically, [id number], [facility] Start Date: 11/06/18 Status: Ordered Dovonex [...] 0 Refills, Soft Stop, 03/24/19 13:42:00 EST, [facility], 158, cm, 12/24/18 10:25:00 [...] DAYS, # 120 mL, 3 Refills, Maintenance, [facility], 7, APPLY TOPICALLY TO AFFECTED [...] Date: 07/26/17 Stop Date: 08/02/17 Status: Ordered ZyrTEC 10 mg oral tablet 1 tablet = 10 mg, By Mouth, Daily, # 7 tablet, 0 Refills, Maintenance, 04/06/19 20:19:00 EST, Tablet, [facility], 158, cm, 12/24/18 10:25:00 EDT, Height, 75.5, kg, 04/06/19 17:01:00 EST, Dry Weight Start Date: 04/06/19 Stop Date: 04/13/19 Status: Ordered Problem List Condition Effective Dates Status Health Status Inform ant Opioid type dependence, continuous(Confirmed) 1 Active 1Client had been seen by Jazz Francois at [facility]. Client has no-showed to last appt and today.She will be targetted for closing if she does not responde to correspondence that will be sent on 02/14/13 Vital Signs Most recent to oldest [Reference Range]: 1 2 Weight 76 kg (04/12/19 3:31 PM) 76 kg (04/12/19 1:38 PM) Oxygen Saturation [94-100 %] 100 % (04/12/19 1:38 PM) 100 % (04/12/19 1:36 PM) Pulse Rate [55-90 bpm] 79 bpm (04/12/19 1:38 PM) 74 bpm (04/12/19 1:36 PM) Blood Pressure [90-138/55-84 mm Hg] 112/ 69mm Hg (04/12/19 1:38 PM) Respiratory Rate [16-30 br/min] 18 br/mi n (04/12/19 1:38 PM) Temperature [96.8-100.4 DegF] 97.6 DegF (04/12/19 1:38 PM) Mode of Delivery (Oxygen) Room air (04/12/19 1:38 PM) Room air (04/12/19 1:36 PM) Blood pressure sites Arm, right (04/12/19 1:38 PM) Temperature Route Oral (04/12/19 1:38 PM) Dry Weight 76 kg (04/12/19 3:31 PM) 76 kg (04/12/19 1:38 PM) Weight Obtained Via Standing scale (04/12/19 1:38 PM) Dry Weight Obtained Via Standing scale (04/12/19 1:38 PM) Social History Social History Type Response Smoking Status 10 or more cigarette s (1/2 pack or more)/day in last 30 days entered on: 01/24/18 Sex
--- OUTSIDE RECORDS SUMMARY | 2022-11-03 10:37 | XMS_ITS | Continuity of Care Document ---
Author Name Unknown Organization [facility] ter Address [address] [place] [address]- Care Team Providers Care Tank Car Inspector Name Role Phone Ilya De Leon MD Primary Care Physician [place] [facility] [place] 08/22/22 - 09/21/[address] [address] Attending Physician: AdmCelsa paiz Admitting Physician: AdmCelsa paiz Referring Physician: AdmtrCelsa [...] Maintenance, 06/29/21 15:10:00 EDT, ER Tablet, [id number], Partial fill upon patient request if the prescription is for a schedule II opioid drug., 155, cm, 05/30/21 15:34:... Start Date: 06/29/21 Status: Ordered Cavilon Emollient topical cream 1 application, Topically, 2 times a day, PRN for dry skin, # 454 Gm, 1 Refills, Maintenance, 09/30/19 16:26:00 EDT, Cream, [facility] 3, 1 application Topically 2 times a day,PRN:for dry skin, 158, cm, 08/27/19 13:02:00 EDT, Height, 76, kg... Start Date: 09/30/19 Status: Ordered Cavilon Emollient topical cream 1 application, Topically, 2 times a day, PRN for dry skin, # 454 Gm, 3 Refills, Maintenance, 09/19/22 11:12:00 EDT, Cream, [facility], 1 application Topically 2 times a day,PRN:for dry skin, 155, cm, 09/04/22 10:17:00 EDT, Height,... Start Date: 09/19/22 Status: Ordered cetirizine 10 mg oral tablet, chewable 1 tablet = 10 mg, By Mouth, Daily, PRN for allergy symptoms, # 12 tablet, 4 Refills, Maintenance, 09/04/22 10:28:00 EDT, Chew Tablet, [facility], Partial fill upon patient request ifthe prescription is for a schedule II opioid drug.,... Start Date: 09/04/22 Stop Date: 10/24/22 Status: Ordered cholecalciferol 1000 intl units oral capsule 1 capsule = 25 mcg, By Mouth, Daily, vitamin D, # 100 capsule, 3 Refills, Maintenance, 07/24/22 13:10:00 EDT, Capsule, [facility] #[id number], Partial fill upon patient request if the prescription is fora schedule II opioid drug., 155, cm, 07/17/22 9:50:... Start Date: 07/24/22 Status: Ordered clonazePAM 0.5 mg oral tablet 1 tablet = 0.5 mg, By Mouth, 2 times a day, Increaseddose July weekly on Fridays for 4 weeks starting on 09/07, # 14 tablet, 3 Refills, Maintenance, 09/06/22 14:07:00 EDT, Tablet, [facility], [employer] reviewed, covering for Dr. De Leon, 1... Start Date: 09/06/22 Stop Date: 10/04/22 Status: Ordered clonazePAM 0.5 mg oral tablet 1 tablet = 0.5 mg, By Mouth, 2 times a day, Increaseddose July weekly on Fridays for 3 weeks starting on 07/21, # 14 tablet, 2 Refills, Maintenance, 07/19/22 12:38:00 EDT, Tablet, [facility], [facility] reviewed, covering for Dr. De Leon, 1... Start Date: 07/19/22 Stop Date: 08/09/22 Status: Ordered Dovonex 0.005% topical cream 1 applicator, Topically, 2 times a day, # 60 Gm, 5 Refills, Maintenance, 05/24/22 12:41:00 EDT, [facility], 1 applicator Topically 2 times a day,x30 days, 155, cm, 01/23/22 14:00:00 EST, Height, 106.5, kg, 09/14/21 9:38:00 EDT, Dry... Start Date: 05/24/22 Stop Date: 11/20/22 Status: Ordered Eucerin Unscented topical lotion See Instructions, apply as frequently as needed, # 1 each, 3 Refills, Maintenance, 09/19/22 11:12:00 EDT, [facility], Partial fill upon patient request if the prescription is for a schedule II opioid drug., apply as frequently as n... Start Date: 09/19/22 Status: Ordered Eucerin Unscented topical lotion See Instructions, apply as frequently as needed, # 1 each, 0 Refills, Maintenance, 09/28/21 12:23:00 EDT, [facility], Partial fill upon patient request if the prescription is for a schedule II opioid drug., apply as frequently as n... Start Date: 09/28/21 Status: Ordered fluticasone 50 mcg/inh nasal spray 1 sprays, Nares, Both, 2 times a day, in each nostril. for allergies, # 16 Gm, 0 Refills, Maintenance, 04/27/20 14:35:00 EST, [place], [facility] 3, Partial fill upon patient request if theprescription is for a schedule II opioid drug., 1... Start Date: 04/27/20 Stop Date: 05/27/20 Status: Ordered halobetasol 0.05% topical ointment See Instructions, APPLY A THIN FILM TO THE AFFECTED SKIN AND RUB IN GENTLY AND COMPLETELY TWICE A DAY, # 50 Gm, 0 Refills, Maintenance, 09/12/22 13:49:00 EDT, [facility]acy #[id number], 30, APPLY A THIN FILM TO THE AFFECTED SKIN AND RUB IN GENTLY AND COMPLET... Start Date: 09/12/22 Status: Ordered halobetasol 0.05% topical ointment See Instructions, APPLY A THIN FILM TO THE AFFECTED SKIN AND RUB IN GENTLY AND COMPLETELY TWICE A DAY, # 50 Gm, 3 Refills, Maintenance, 09/19/22 11:12:00 EDT, [facility], 30, APPLY A THIN FILM TO THE AFFECTED SKIN AND RUB IN GENTLY... Start Date: 09/19/22 Status: Ordered ketoconazole 2% topical shampoo See Instructions, APPLY 1 APPLICATOR TOPICALLY 3X PER WEEK, # 120 mL, 3 Refills, Maintenance, 05/16/22 8:48:00 EST, [facility] [id number], 30, APPLY 1 APPLICATOR TOPICALLY 3X PER WEEK, 155, cm, 01/23/22 14:00:00 EST, Height, 106.5, kg, 09/14/21 9:38:00 EDT,... Start Date: 05/16/22 Status: Ordered loratadine 10 mg oral tablet 1, tablet, By Mouth, Daily, # 30 tablet, Refills 5, Tot. Refills 5, Maintenance, 07/04/22 8:39:00 EDT, Route to Pharmacy Electronically, [facility]/pharmacy #[id number], 155, cm, 01/23/22 14:00:00 EST, Height, 106.5, kg, 09/14/21 9:38:00 EDT, Dry Weight Start Date: 07/04/22 Status: Ordered Methadone By Mouth, 0 Refills, Maintenance Start Date: 12/25/11 Status: Ordered mupirocin 2% topical cream 1 application, Topically, 3 times a day, # 30 Gm, 2 Refills, Maintenance, 03/08/21 10:26:00 EST, Cream, [facility]/pharmacy #[id number], Partial fill upon patient request if the prescription is for a schedule II opioid drug., 1 application Topically 3 times a day,... Start Date: 03/08/21 Status: Ordered permethrin 5% topical cream 1 application, Topically, Once, to skin head to feet, remove by washing after 8 to 14 hours, # 60 Gm, 0 Refills, Soft Stop, 07/27/20 11:50:00 EDT, Cream, [facility], 1 applicationTopically Once,Instr:to skin head to feet, remove b... Start Date: 07/27/20 Status: Ordered predniSONE 5 mg oral tablet See Instructions, Starting next refill increase to 4 tablets daily, # 28 tablet, 3 Refills, Maintenance, 09/19/22 11:07:00 EDT, [facility], Partial fill upon patient request if the prescription is for a schedule II opioid drug., 15... Start Date: 09/19/22 Status: Ordered selenium sulfide 2.5% topical lotion See Instructions, APPLY TOPICALLY TO AFFECTED AREA EVERY DAY FOR 7 DAYS, # 120 mL, 3 Refills, Soft Stop, 10/26/21 15:43:00 EDT, [facility], 7, APPLY TOPICALLY TO AFFECTED AREA EVERY DAY FOR 7 DAYS, 155, cm, 09/28/21 12:06:00 EDT, H... Start Date: 10/26/21 Status: Ordered simvastatin 20 mg oral tablet 20 mg, 1, tablet, By Mouth, Daily at bedtime, for cholesterol, # 30 tablet, Refills 5, Tot. Refills5, Maintenance, 07/24/22 13:12:00 EDT, Route to Pharmacy Electronically, [facility]/pharmacy #[id number], Partial fill upon patient request if the prescription is f... Start Date: 07/24/22 Status: Ordered traMADol 50 mg oral tablet 1 tablet = 50 mg, By Mouth, Every 8 hours, PRN Pain , Severe, for 7 days, 4May fill 08/11/22 and weekly on Fridays for 4 weeks, # 21 tablet, 3 Refills, Acute 10/06/22 8:49:00 EDT, 09/08/22 8:49:00 EDT,Tablet, [facility], Partial fi... Start Date: 09/08/22 Stop [...] Personnel Name: Ilya De Leon MD Position: [facility] Physician - Primary Care Member Role: PCP Address: Address: [address] [place] [id number]- Care Team Related Persons Name: JD ALVAREZ Address: home [address] [place] [id number]
--- OUTSIDE RECORDS SUMMARY | 2022-11-03 10:37 | XMS_ITS | Continuity of Care Document ---
Author Name Unknown Organization [facility] Address Unknown Care Team Providers Care Grocery Supervisor Name Role Phone Ilya De Leon MD Primary Care Physician [place] [facility] [place]): 08/15/21 - 09/14/21 [facility] Attending Physician: Justice Paez MD Admitting Physician: Justice Paez MD Referring Physician: Ilya De Leon MD [...] Maintenance, 06/29/21 15:10:00 EDT, ER Tablet, [id number], Partial fill upon patient request if the prescription is for a schedule II opioid drug., 155, cm, 05/30/21 15:34:... Start Date: 06/29/21 Status: Ordered capsaicin 0.025% topical cream See Instructions, APPLY TO AFFECTED AREA TWICE A DAY, # 60 Gm, 1 Refills, [facility]ORE [id number], 30, APPLY TO AFFECTED AREA TWICE A DAY, 155, cm, 05/30/21 15:34:00 EDT, Height, 95.9, kg, 12/05/20 10:08:00 EDT, Dry Weight Start Date: 05/31/21 Status: Ordered Cavilon Emollient topical cream 1 application, Topically, 2 times a day, PRN for dry skin, # 454 Gm, 1 Refills, Maintenance, 09/30/19 16:26:00 EDT, Cream, [facility], 1 application Topically 2 times a day,PRN:for dry skin, 158, cm, 08/27/19 13:02:00 EDT, Height, 76, kg... Start Date: 09/30/19 Status: Ordered clonazePAM 0.5 mg oral tablet 1 tablet = 0.5 mg, By Mouth, Daily, May fill 08/12/21, # 7 tablet, 0 Refills, Maintenance, 09/08/21 15:37:00 EDT, Tablet, [facility], HEAT TREATING OPERATOR reviewed, covering for Dr. De Leon, 155, cm, 08/24/21 14:47:00 EDT, Height, 95.9, kg, 12/05/20... Start Date: 09/08/21 Stop Date: 09/15/21 Status: Ordered Dovonex 0.005% topical cream 1 applicator, Topically, 2 times a day, # 60 Gm, 5 Refills, Maintenance, 07/07/19 17:30:00 EDT, [facility], 1 applicator Topically 2 times a day,x30 days, 158, cm, 12/24/18 10:25:00 EDT, Height, 76, kg, 04/12/19 15:31:00 EST, Dry Weight Start Date: 07/07/19 Stop Date: 01/03/20 Status: Ordered fluticasone 50 mcg/inh nasal spray 1 sprays, Nares, Both, 2 times a day, in each nostril. for allergies, # 16 Gm, 0 Refills, Maintenance, 04/27/20 14:35:00 EST, [place], [facility] 3, Partial fill upon patient request if theprescription is for a schedule II opioid drug., 1... Start Date: 04/27/20 Stop Date: 05/27/20 Status: Ordered halobetasol 0.05% topical ointment See Instructions, APPLY A THIN FILM TO THE AFFECTED SKIN AND RUB IN GENTLY AND COMPLETELY TWICE A DAY, # 50 Gm, 1 Refills, [facility] STORE [id number], , APPLY A THIN FILM TO THE AFFECTED SKIN AND RUB IN GENTLY AND COMPLETELY TWICE A DAY, 155, cm, 12/05/20 10:0... Start Date: 03/15/21 Status: Ordered hydrocortisone 1% topical cream 1 application, Topically, 2 times a day, # 30 Gm, 0 Refills, Maintenance, 06/17/21 11:42:00 EDT, Cream, [facility] 3, Partial fill upon patient request if the prescription is for a schedule II opioid drug., 1 application Topically 2 times... Start Date: 06/17/21 Status: Ordered hydrOXYzine hydrochloride 25 mg oral tablet 1 capsule, By Mouth, 3 times a day, PRN for itching, for 30 days, # 90 capsule, 1 Refills, Acute 10/23/21 14:41:00 EDT, 08/24/21 14:41:00 EDT, Capsule, [facility], Partial fill upon patient request if the prescription is for a sche... Start Date: 08/24/21 Stop Date: 10/23/21 Status: Ordered ketoconazole 2% topical shampoo See Instructions, APPLY 1 APPLICATOR TOPICALLY 3X PER WEEK, # 120 mL, 3 Refills, [facility] STORE [id number], 30, APPLY 1 APPLICATOR TOPICALLY 3X PER WEEK, 155, cm, 05/30/21 15:34:00 EDT, Height, 95.9, kg, 12/05/20 10:08:00 EDT, Dry Weight Start Date: 08/02/21 Status: Ordered loratadine 10 mg oral tablet 1, tablet, By Mouth, Daily, # 15 tablet, Refills 5, Tot. Refills 5, Maintenance, 08/19/21 9:15:00 EDT, Route to Pharmacy Electronically, [facility]/pharmacy #[id number], 155, cm, 05/30/21 15:34:00 EDT, Height, 95.9, kg, 12/05/20 10:08:00 EDT, Dry Weight Start Date: 08/19/21 Status: Ordered Methadone By Mouth, 0 Refills, Maintenance Start Date: 12/25/11 Status: Ordered mupirocin 2% topical cream 1 application, Topically, 3 times a day, # 30 Gm, 2 Refills, Maintenance, 03/08/21 10:26:00 EST, Cream, [id number], Partial [...] Refills, Soft Stop, 07/27/20 11:50:00 EDT, Cream, [facility], 1 applicationTopically Once,Instr:to skin head to feet, remove b... Start Date: 07/27/20 Status: Ordered predniSONE 10 mg oral tablet See Instructions, MADDY 1 TABLETA POR [facility] CADA ANDREW POR 7 RAY, # 7 tablet, 0 Refills, [facility], 155, cm, 08/24/21 14:47:00 EDT, Height, 95.9, kg, 12/05/20 10:08:00 EDT, Dry Weight Start Date: 09/08/21 Status: Ordered selenium sulfide 2.5% topical lotion See Instructions, APPLY TOPICALLY TO AFFECTED AREA EVERY DAY FOR 7 DAYS, # 120 mL, 3 Refills, Soft Stop, 04/26/21 18:07:00 EST, [facility]/pharmacy #[id number], 7, APPLY TOPICALLY TO AFFECTED AREA EVERY DAY FOR 7DAYS, 155, cm, 04/18/21 10:12:00 EST, Height, 95.9,... Start Date: 04/26/21 Status: Ordered tiZANidine 2 mg oral tablet 1, tablet, By Mouth, 3 times a day, # 60 tablet, Refills 0, Route to Pharmacy Electronically, [facility] STORE [id number], 155, cm, 05/03/21 14:39:00 EST, Height, 95.9, kg, 12/05/20 10:08:00 EDT, Dry Weight Start Date: 05/09/21 Status: Ordered traMADol 50 mg oral tablet 1 tablet = 50 mg, By Mouth, Every 8 hours, PRN Pain , Severe, for 7 days, # 21 tablet, 0 Refills, Acute 09/15/21 15:37:00 EDT, 09/08/21 15:37:00 EDT, Tablet, [facility], Partial fill upon patient request if the prescription is for... Start Date: 09/08/21 Stop Date: 09/15/21 Status: Ordered Problem List Condition Effective Dates Status Health Status Inform ant Anxiety(Confirmed) Active Opioid type dependence, continuous(Confirmed) 1 Active Osteoarthritis of left knee(Confirmed) Active Psoriasis(Confirmed) Active Severe obesity(Confirmed) Active 1Client had been seen by Jazz Francois at [facility]. Client has no-showed to last appt and today.She will be targetted for closing if she does not responde to correspondence that will be sent on 02/14/13 Social History Social History Type Response Smoking Status 10 or more cigarette s (1/2 pack or more)/day in last 30 days entered on: 04/18/21 Sex
--- OUTSIDE RECORDS SUMMARY | 2022-11-03 10:37 | XMS_ITS | Continuity of Care Document ---
Author Name Unknown Organization [facility] Address [address] [place] [address]- Care Team Providers Care Professor Of Kinesiology Name Role Phone Ilya De Leon MD Primary Care Physician [place] [facility] [place] [facility]/[address] [address]- [place] Allergies, Adverse Reactions, Alerts Substance Reaction [...] 1Admin Note: ADMIN BY [facility] 2Admin Note: FLUVIRIN MULTIDOSE ADMINISTERED AT [facility] Medications acetaminophen 650 mg oral tablet, extended release 2 tablet = 1,300 mg, By Mouth, Every 8 hours, # 100 tablet, 1 Refills, Maintenance, 06/29/21 15:10:00 EDT, ER Tablet, [facility]/pharmacy #[id number], Partial fill upon patient request if the prescription is for a schedule II opioid drug., 155, cm, 05/30/21 15:34:... Start Date: 06/29/21 Status: Ordered capsaicin 0.025% topical cream See Instructions, APPLY TO AFFECTED AREA TWICE A DAY, # 60 Gm, 1 Refills, [facility] STORE [id number], 30, APPLY TO AFFECTED AREA TWICE A DAY, 155, cm, 05/30/21 15:34:00 EDT, Height, 95.9, kg, 12/05/20 10:08:00 EDT, Dry Weight Start Date: 05/31/21 Status: Ordered Cavilon Emollient topical cream 1 application, Topically, 2 times a day, PRN for dry skin, # 454 Gm, 1 Refills, Maintenance, 09/30/19 16:26:00 EDT, Cream, [facility] 3, 1 application Topically 2 times a day,PRN:for dry skin, 158, cm, 08/27/19 13:02:00 EDT, Height, 76, kg... Start Date: 09/30/19 Status: Ordered clonazePAM 0.5 mg oral tablet 1 tablet = 0.5 mg, By Mouth, Daily at bedtime, May fill 03/24/22 and weekly on Fridays for3 weeks, #7 tablet, 2 Refills, Maintenance, 03/22/22 12:52:00 EST, Tablet, [facility], PEGA DEVELOPER reviewed, covering for Dr. De Leon, 155, cm, 01/23... Start Date: 03/22/22 Stop Date: 04/12/22 Status: Ordered clonazePAM 0.5 mg oral tablet 1 tablet = 0.5 mg, By Mouth, Daily at bedtime, May fill 04/14/22 and weekly on Fridays for3 weeks, # 7 tablet, 2 Refills, Maintenance, 04/13/22 10:13:00 EST, Tablet, [facility], PMPreviewed, covering for Dr. De Leon, 155, cm, 01/23/... Start Date: 04/13/22 Stop Date: 05/04/22 Status: Ordered coal tar topical 1% lotion See Instructions, applyTopically Daily at bedtime, # 120 mL, 3 Refills, Maintenance, 10/26/21 15:45:00 EDT, [facility], Partial fill upon patient request if the prescription is for a schedule II opioid drug., applyTopically Daily a... Start Date: 10/26/21 Status: Ordered Dovonex 0.005% topical cream 1 applicator, Topically, 2 times a day, # 60 Gm, 5 Refills, Maintenance, 07/07/19 17:30:00 EDT, [facility] 3, 1 applicator Topically 2 times a day,x30 days, 158, cm, 12/24/18 10:25:00 EDT, Height, 76, kg, 04/12/19 15:31:00 EST, Dry Weight Start Date: 07/07/19 Stop Date: 01/03/20 Status: Ordered Eucerin Unscented topical lotion See Instructions, apply as frequently as needed, # 1 each, 0 Refills, Maintenance, 09/28/21 12:23:00 EDT, [facility], Partial fill upon patient request if the prescription is for a schedule II opioid drug., apply as frequently as n... Start Date: 09/28/21 Status: Ordered fluticasone 50 mcg/inh nasal spray 1 sprays, Nares, Both, 2 times a day, in each nostril. for allergies, # 16 Gm, 0 Refills, Maintenance, 04/27/20 14:35:00 EST, [place], [facility] 3, Partial fill upon patient request if theprescription is for a schedule II opioid drug., 1... Start Date: 04/27/20 Stop Date: 05/27/20 Status: Ordered halobetasol 0.05% topical ointment See Instructions, APPLY A THIN FILM TO THE AFFECTED SKIN AND RUB IN GENTLY AND COMPLETELY TWICE A DAY, # 50 Gm, 1 Refills, Maintenance, 10/26/21 15:44:00 EDT, [facility], 30, APPLY A THIN FILM TO THE AFFECTED SKIN AND RUB IN GENTLY... Start Date: 10/26/21 Status: Ordered ketoconazole 2% topical shampoo See Instructions, APPLY 1 APPLICATOR TOPICALLY 3X PER WEEK, # 120 mL, 3 Refills, Maintenance, 12/27/21 19:30:00 EDT, [facility] STORE [id number], 30, APPLY 1 APPLICATOR TOPICALLY 3X PER WEEK, 155, cm, 12/12/21 16:00:00 EDT, Height, 106.5, kg, 09/14/21 9:38:00 EDT... Start Date: 12/27/21 Status: Ordered loratadine 10 mg oral tablet 1, tablet, By Mouth, Daily, # 90 tablet, Refills 1, Tot. Refills 1, Maintenance, 11/01/21 15:19:00 EDT, [facility] to Pharm[facility]ically, [id number], 155, cm, 09/28/21 12:06:00 EDT, Height, [...] Refills, Soft Stop, 07/27/20 11:50:00 EDT, Cream, [facility], 1 applicationTopically Once,Instr:to skin head to feet, remove b... Start Date: 07/27/20 Status: Ordered predniSONE 10 mg oral tablet See Instructions, May fill 03/24/22 and weekly on Fridays for 3 weeks, # 14 tablet, 2 Refills, 03/22/22 12:52:00 EST, [facility], 155, cm, 01/23/22 14:00:00 EST, Height, 106.5, kg,09/14/21 9:38:00 EDT, Dry Weight Start Date: 03/22/22 Status: Ordered predniSONE 10 mg oral tablet See Instructions, May fill and weekly on Fridays for 3 weeks, # 14 tablet, 2 Refills, 04/13/22 10:13:00 EST, [facility], 155, cm, 01/23/22 14:00:00 EST, Height, 106.5, kg,09/14/21 9:38:00 EDT, Dry Weight Start Date: 04/13/22 Status: Ordered selenium sulfide 2.5% topical lotion See Instructions, APPLY TOPICALLY TO AFFECTED AREA EVERY DAY FOR 7 DAYS, # 120 mL, 3 Refills, Soft Stop, 10/26/21 15:43:00 EDT, [facility], 7, APPLY TOPICALLY TO AFFECTED AREA EVERY DAY FOR 7 DAYS, 155, cm, 09/28/21 12:06:00 EDT, H... Start Date: 10/26/21 Status: Ordered tiZANidine 2 mg oral tablet 1, tablet, By Mouth, 3 times a day, # 60 tablet, Refills 0, Route to Pharmacy Electronically, [facility]ORE [id number], 155, cm, 05/03/21 14:39:00 EST, Height, 95.9, kg, 12/05/20 10:08:00 EDT, Dry Weight Start Date: 05/09/21 Status: Ordered traMADol 50 mg oral tablet 1 tablet = 50 mg, By Mouth, Every 8 hours, PRN Pain , Severe, for 7 days, May fill 04/14/22 and weekly on Fridays for3 weeks, # 21 tablet, 2 Refills, Acute 05/04/22 10:13:00 EST, 04/13/22 10:13:00 EST,Tablet, [facility], Partial fi... Start Date: 04/13/22 Stop Date: 05/04/22 Status: Ordered Problem List Condition Confirmation Course Effective Dates Status H ealth Status Informant Anxiety Confirmed Active Opioid type dependence, continuous 1 Confirmed Active Osteoarthritis of left knee Confirmed Active Psoriasis Confirmed Active Severe obesity Confirmed Active 1Client had been seen by Jazz Francois at [facility]. Client has no-showed to last appt [...] Care Physician Member Role: PCP Address: Address: [address] [place] [address]- Care Team Related Persons Name: JD ALVAREZ Address: home [address] [place] [address] GAVIN HOLLIS [address]
--- OUTSIDE RECORDS SUMMARY | 2022-11-03 10:38 | XMS_ITS | Continuity of Care Document ---
Author Name Unknown Organization [facility] Address Unknown Care Team Providers Care Police Cadet Name Role Phone Ilya De Leon MD Primary Care Physician [place] [facility] [place]24/[place] - 01/23/21 [facility] Allergies, Adverse Reactions, Alerts Substance [...] FLUVIRIN MULTIDOSE ADMINISTERED AT [facility] Medications Cavilon Emollient topical cream 1 [...] 0 Refills, Maintenance, 12/03/20 13:44:00 EDT, Tablet, [facility]/pharmacy #[id number], Partial fill upon patient request if the prescription is for a schedule II opioid drug., 158, cm, 12/03/20 13:27:00 EDT, Height,... Start Date: 12/03/20 Status: Ordered Claritin 10 mg oral tablet 10 mg, 1, tablet, By Mouth, Daily, # 15 tablet, Refills 3, Tot. Refills 3, Maintenance, 11/06/18 8:33:38 EDT, Route to Pharmacy Electronically, [id number], [facility] Start Date: 11/06/18 Status: Ordered clonazePAM 0.5 mg oral tablet 1 tablet = 0.5 mg, By Mouth, Daily, DATA ANALYTICS CHIEF SCIENTIST checked Fill 01/21/21 for 28 days, # 28 tablet, 0 Refills, Maintenance, 01/20/21 12:45:00 EST, Tablet, [id number], Partial fill upon patient request ifthe prescription is for a schedule II opioid drug.... Start Date: 01/20/21 Stop Date: 02/17/21 Status: Ordered diphenhydrAMINE 25 mg oral tablet 1 tablet = 25 mg, By Mouth, 3 times a day, PRN as needed for itching, Will cause drowsiness, # 30 tablet, 0 Refills, Maintenance, 07/16/20 15:11:00 EDT, Tablet, [facility], Partial fill upon patient request [...] Gm, 0 Refills, Maintenance, 04/27/20 14:35:00 EST, [place], [facility], Partial fill upon patient request if theprescription is for a schedule II opioid drug., 1... Start Date: 04/27/20 Stop Date: 05/27/20 Status: Ordered furosemide 20 mg oral tablet 1, tablet, By Mouth, Daily, # 30 tablet, Refills 3, Tot. Refills 3, Maintenance, 01/20/21 12:45:00 EST, Route to Pharmacy Electronically, [facility]/pharmacy #[id number], 155, cm, 12/05/20 10:08:00 EDT, Height, 95.9, kg, 12/05/20 10:08:00 EDT, Dry Weight Start Date: 01/20/21 Status: Ordered halobetasol 0.05% topical ointment See Instructions, APPLY A THIN FILM TO THE AFFECTED SKIN AND RUB IN GENTLY AND COMPLETELY TWICE A DAY, # 50 Gm, 1 Refills, [facility] [id number], 30, APPLY A THIN FILM TO THE AFFECTED SKIN AND RUB IN GENTLY AND COMPLETELY TWICE A DAY, 155, cm, 12/05/20 10:0... Start Date: 01/16/21 Status: Ordered hydrocortisone 1% topical cream 1 application, Topically, 2 times a day, Apply to rash areas, # 60 Gm, 3 Refills, Maintenance, 06/04/19 14:52:00 EDT, Cream, [facility], 1 application Topically 2 times a day,Instr:Apply to rash areas, 158, cm, 12/24/18 10:25:00 EDT, Hei... Start Date: 06/04/19 Status: Ordered ketoconazole 2% topical shampoo See Instructions, APPLY 1 APPLICATOR TOPICALLY 3X PER WEEK, # 120 mL, 3 Refills, [facility] [id number], 30, APPLY 1 APPLICATOR TOPICALLY 3X PER [...] 2 Refills, Maintenance, 12/17/20 15:28:00 EDT, Cream, [facility]/pharmacy #[id number], Partial fill upon patient request if the prescription is for a schedule II opioid drug., 1 application Topically 3 times a day,... Start Date: 12/17/20 Status: Ordered [place] 0.65% nasal spray 2 sprays, Nares, Both, 4 times a day, # 1 each, 0 Refills, Maintenance, 12/03/20 13:46:00 EDT, [facility]/pharmacy #[id number], Partial fill upon patient request [...] 07/27/20 11:50:00 EDT, Cream, [facility], 1 applicationTopically Once,Instr:to skin head to feet, remove b... Start Date: 07/27/20 Status: Ordered predniSONE 5 mg oral tablet 1 tablet = 5 mg, By Mouth, 3 times a day, may fill 01/21/21 for 14 days, # 42 tablet, 0 Refills, Maintenance, 01/20/21 12:45:00 EST, Tablet, [facility]/pharmacy #[id number], Partial fill upon patient request if the prescription is for a schedule II opioid drug., 1... Start Date: 01/20/21 Stop Date: 02/03/21 Status: Ordered selenium sulfide 2.5% topical lotion See Instructions, APPLY TOPICALLY TO AFFECTED AREA EVERY DAY FOR 7 DAYS, # 120 mL, 3 Refills, Soft Stop, 07/23/20 11:40:00 EDT, [facility], 7, APPLY TOPICALLY TO AFFECTED AREA EVERY DAY FOR 7 DAYS, 158, cm, 07/23/20 11:13:00 EDT, H... Start Date: 07/23/20 Status: Ordered Shingrix intramuscular injection = 0.5 mL, Intramuscular, Once, repeat dose in 2 to 6 months, # 2 each, 0 Refills, Soft Stop, 05/27/20 11:03:00 EDT, Pow[place], [facility], Partial fill upon patient request [...] had been seen by Jazz Francois at [facility]. Client has no-showed to last appt and today.She will be targetted for closing if she does not responde to correspondence that will be sent on 02/14/13 Social History Social History Type Response Smoking Status 5-9 cigarettes (betw een 1/4 to 1/2 pack)/day in last 30 days entered on: 09/08/20 Sex
--- OUTSIDE RECORDS SUMMARY | 2022-11-03 10:38 | XMS_ITS | Continuity of Care Document ---
Author Name Unknown Organization [facility] Address [address] [place] [address]- Care Team Providers Care Technical Trainer Name Role Phone Ilya De Leon MD Primary Care Physician Encounter [facility] Date(s): 04/12/22 - 05/12/22 [facility]/[address] [address]- [place] Allergies, Adverse Reactions, Alerts Substance Reaction Severity Status penicillin Rash Active Motrin tight throat Rash Active Compazine throat swells Active trimethoprim-sulfamethoxazole DS 1 Carolyn Mcintosh 17-MAY-2013 07:29:57<$> Unknown Active Imitrex Chest pain Active aspirin Ibuprofen tight throat Rash Active morphine HAND SWELLING Active Toradol Rash Active Reglan Agitated Active dehydroepiandrosterone 2 Chest [...] 02/06/10 Garrett rded 1Admin Note: ADMIN BY [facility] 2Admin Note: FLUVIRIN MULTIDOSE ADMINISTERED AT [facility] Medications acetaminophen 650 mg oral tablet, extended release 2 tablet = 1,300 mg, By Mouth, Every 8 hours, # 100 tablet, 1 Refills, Maintenance, 06/29/21 15:10:00 EDT, ER Tablet, [id number], Partial fill upon patient request if the prescription is for a schedule II opioid drug., 155, cm, 05/30/21 15:34:... Start Date: 06/29/21 Status: Ordered capsaicin 0.025% topical cream See Instructions, APPLY TO AFFECTED AREA TWICE A DAY, # 60 Gm, 1 Refills, [id number], 30, APPLY TO AFFECTED AREA TWICE A DAY, 155, cm, 05/30/21 15:34:00 EDT, Height, 95.9, kg, 12/05/20 10:08:00 EDT, Dry Weight Start Date: 05/31/21 Status: Ordered Cavilon Emollient topical cream 1 application, Topically, 2 times a day, PRN for dry skin, # 454 Gm, 1 Refills, Maintenance, 09/30/19 16:26:00 EDT, Cream, [facility] 3, 1 application Topically 2 times a day,PRN:for dry skin, 158, cm, 08/27/19 13:02:00 EDT, Height, 76, kg... Start Date: 09/30/19 Status: Ordered clonazePAM 0.5 mg oral tablet 1 tablet = 0.5 mg, By Mouth, Daily at bedtime, May fill 04/14/22 and weekly on Fridays for3 weeks, # 7 tablet, 2 Refills, Maintenance, 04/13/22 10:13:00 EST, Tablet, [facility], PMPreviewed, covering for Dr. De Leon, 155, cm, 01/23/... Start Date: 04/13/22 Stop Date: 05/04/22 Status: Ordered clonazePAM 0.5 mg oral tablet 1 tablet = 0.5 mg, By Mouth, Daily at bedtime, May fill 05/04/22 and weekly on Fridays for 3 weeks, # 7 tablet, 2 Refills, Maintenance, 05/03/22 14:04:00 EST, Tablet, [facility], WHEEL AND CASTER REPAIRER reviewed, covering for Dr. De Leon, 155, cm, 01/10... Start Date: 05/03/22 Stop Date: 05/24/22 Status: Ordered coal tar topical 1% lotion See Instructions, applyTopically Daily at bedtime, # 120 mL, 3 Refills, Maintenance, 10/26/21 15:45:00 EDT, [facility], Partial fill upon patient request if the prescription is for a schedule II opioid drug., applyTopically Daily a... Start Date: 10/26/21 Status: Ordered Dovonex 0.005% topical cream 1 applicator, Topically, 2 times a day, # 60 Gm, 5 Refills, Maintenance, 07/07/19 17:30:00 EDT, [facility] 3, 1 applicator Topically 2 times a day,x30 days, 158, cm, 12/24/18 10:25:00 EDT, Height, 76, kg, 04/12/19 15:31:00 EST, Dry Weight Start Date: 07/07/19 Stop Date: 01/03/20 Status: Ordered Eucerin Unscented topical lotion See Instructions, apply as frequently as needed, # 1 each, 0 Refills, Maintenance, 09/28/21 12:23:00 EDT, [facility], Partial fill upon patient request if the prescription is for a schedule II opioid drug., apply as frequently as n... Start Date: 09/28/21 Status: Ordered fluticasone 50 mcg/inh nasal spray 1 sprays, Nares, Both, 2 times a day, in each nostril. for allergies, # 16 Gm, 0 Refills, Maintenance, 04/27/20 14:35:00 EST, [place], [facility] 3, Partial fill upon patient request if theprescription is for a schedule II opioid drug., 1... Start Date: 04/27/20 Stop Date: 05/27/20 Status: Ordered halobetasol 0.05% topical ointment See Instructions, APPLY A THIN FILM TO THE AFFECTED SKIN AND RUB IN GENTLY AND COMPLETELY TWICE A DAY, # 50 Gm, 1 Refills, Maintenance, 10/26/21 15:44:00 EDT, [facility], 30, APPLY A THIN FILM TO THE AFFECTED SKIN AND RUB IN GENTLY... Start Date: 10/26/21 Status: Ordered ketoconazole 2% topical shampoo See Instructions, APPLY 1 APPLICATOR TOPICALLY 3X PER WEEK, # 120 mL, 3 Refills, Maintenance, 12/27/21 19:30:00 EDT, [facility] [id number], 30, APPLY 1 APPLICATOR TOPICALLY 3X PER WEEK, 155, cm, 12/12/21 16:00:00 EDT, Height, 106.5, kg, 09/14/21 9:38:00 EDT... Start Date: 12/27/21 Status: Ordered loratadine 10 mg oral tablet 1, tablet, By Mouth, Daily, # 90 tablet, Refills 1, Tot. Refills 1, Maintenance, 11/01/21 15:19:00 EDT, [id number], 155, cm, 09/28/21 12:06:00 EDT, Height, 106.5, kg, 09/14/21 9:38:00 EDT, Dry Weight Start Date: 11/01/21 Status: Ordered Methadone By Mouth, 0 Refills, Maintenance Start Date: 12/25/11 Status: Ordered mupirocin 2% topical cream 1 application, Topically, 3 times a day, # 30 Gm, 2 Refills, Maintenance, 03/08/21 10:26:00 EST, Cream, [facility]/pharmacy #[id number], Partial fill [...] Refills, Soft Stop, 07/27/20 11:50:00 EDT, Cream, [facility], 1 applicationTopically Once,Instr:to skin head to feet, remove b... Start Date: 07/27/20 Status: Ordered predniSONE 10 mg oral tablet See Instructions, May fill and weekly on Fridays for 3 weeks, # 14 tablet, 2 Refills, 04/13/22 10:13:00 EST, [facility], 155, cm, 01/23/22 14:00:00 EST, Height, 106.5, kg,09/14/21 9:38:00 EDT, Dry Weight Start Date: 04/13/22 Status: Ordered predniSONE 10 mg oral tablet See Instructions, May fill 05/04/22 and weekly on Fridays for 3 weeks, # 14 tablet, 2 Refills, 05/03/22 14:04:00 EST, [facility], 155, cm, 01/23/22 14:00:00 EST, Height, 106.5, kg,09/14/21 9:38:00 EDT, Dry Weight Start Date: 05/03/22 Status: Ordered selenium sulfide 2.5% topical lotion See Instructions, APPLY TOPICALLY TO AFFECTED AREA EVERY DAY FOR 7 DAYS, # 120 mL, 3 Refills, Soft Stop, 10/26/21 15:43:00 EDT, [facility], 7, APPLY TOPICALLY TO AFFECTED AREA EVERY DAY FOR 7 DAYS, 155, cm, 09/28/21 12:06:00 EDT, H... Start Date: 10/26/21 Status: Ordered tiZANidine 2 mg oral tablet 1, tablet, By Mouth, 3 times a day, # 60 tablet, Refills 0, Route to Pharmacy Electronically, [id number], 155, cm, 05/03/21 14:39:00 EST, Height, 95.9, kg, 12/05/20 10:08:00 EDT, Dry Weight Start Date: 05/09/21 Status: Ordered traMADol 50 mg oral tablet 1 tablet = 50 mg, By Mouth, Every 8 hours, PRN Pain , Severe, for 7 days, May fill 05/04/22 and weekly on Fridays for 3 weeks, # 21 tablet, 2 Refills, Acute 05/24/22 14:04:00 EDT, 05/03/22 14:04:00 EST, Tablet, [facility], Partial... Start Date: 05/03/22 Stop Date: 05/24/22 Status: Ordered Problem List Condition Confirmation Course [...] Care Physician Member Role: PCP Address: Address: [address] [place] [id number]- Care Team Related Persons Name: JD ALVAREZ Address: [address] [place] [address]
--- OUTSIDE RECORDS SUMMARY | 2022-11-03 10:38 | XMS_ITS | Continuity of Care Document ---
Author Name Unknown Organization [facility] Address [address] [place] [address]- Care Team Providers Care Metallurgy Teacher Name Role Phone Ilya De Leon MD Primary Care Physician Encounter [facility] Date(s): 09/11/19 - 10/11/19 [facility]/[address] [address]- [facility] Allergies, Adverse Reactions, Alerts Substance Reaction [...] 01/30/11 Gi lizbeth 1Admin Note: ADMIN BY [facility] 2Admin Note: FLUVIRIN MULTIDOSE ADMINISTERED AT [facility] Medications Cavilon Emollient topical cream 1 application, Topically, 2 times a day, PRN for dry skin, # 454 Gm, 1 Refills, Maintenance, 09/30/19 16:26:00 EDT, Cream, [facility], 1 application Topically 2 times a day,PRN:for dry skin, 158, cm, 08/27/19 13:02:00 EDT, Height, 76, kg... Start Date: 09/30/19 Status: Ordered Claritin 10 mg oral tablet 10 mg, 1, tablet, By Mouth, Daily, # 15 tablet, Refills 3, Tot. Refills 3, Maintenance, 11/06/18 8:33:38 EDT, Route to Pharmacy Electronically, [id number], [facility] Start Date: 11/06/18 Status: Ordered Dovonex 0.005% topical cream 1 applicator, Topically, 2 times a day, # 60 Gm, 5 Refills, Maintenance, 07/07/19 17:30:00 EDT, [facility] 3, 1 applicator Topically 2 [...] 3 Refills, Maintenance, 06/04/19 14:52:00 EDT, Cream, [facility], 1 application Topically [...] 0 Refills, Soft Stop, 09/18/19 16:47:00 EDT, [facility] 3, 158, cm, ... Start Date: 09/18/19 Status: Ordered Medrol Dosepak 4 mg oral tablet per label intructions, By Mouth, Once, as on label, # 1 each, 0 Refills, Soft Stop, 08/11/19 20:08:00 EDT, [facility] 3, 158, cm, 12/24/18 10:25:00 EDT, [...] 0 Refills, Soft Stop, 08/27/19 14:17:00 EDT, [facility], 1 applicator Topically 3x per week, 158, [...] 3 Refills, Soft Stop, 09/23/19 15:13:00 EDT, [facility], 7, APPLY TOPICALLY TO [...] 0 Refills, Maintenance, 04/06/19 20:19:00 EST, Tablet, [facility], 158, cm, 12/24/18 10:25:00 EDT, Height, 75.5, kg, 04/06/19 17:01:00 EST, Dry Weight Start Date: 04/06/19 Stop Date: 04/13/19 Status: Ordered Problem List Condition Effective Dates Status Health Status Inform ant Opioid type dependence, continuous(Confirmed) 1 Active 1Client had been seen by Jazz Francois at [facility]. Client has no-showed to last appt and today.She will be targetted for closing if she does not responde to correspondence that will be sent on 02/14/13 Social History Social History Type Response Smoking Status 10 or more cigarette s (1/2 pack or more)/day in last 30 days entered on: 01/24/18 Sex
--- OUTSIDE RECORDS SUMMARY | 2022-11-03 10:38 | XMS_ITS | Continuity of Care Document ---
Author Name Unknown Organization [facility] Address [address] [place] [address]- Care Team Providers Care Grounds/Maintenance Specialist Name Role Phone Ilya De Leon MD Primary Care Physician Encounter [facility] Date(s): 09/30/19 - 11/01/19 [facility] [address] [address]- [facility] Attending Physician: Karmen Hoang MD Admitting Physician: Karmen Hoang MD Allergies, Adverse Reactions, Alerts Substance Reaction Severity Status penicillin Rash Active morphine HAND SWELLING Active Toradol Rash Active Motrin tight throat Rash Active Imitrex Chest pain Active Compazine throat swells Active Reglan Agitated Active trimethoprim-sulfamethoxazole DS 1 Carolyn sears Hives 17-MAY-2013 07:29:57<$> Unknown Active dehydroepiandrosterone 2 [...] 01/30/11 Gi lizbeth 1Admin Note: [facility] 2Admin Note: FLUVIRIN MULTIDOSE ADMINISTERED AT [facility] Medications Cavilon Emollient topical cream 1 application, Topically, 2 times a day, PRN for dry skin, # 454 Gm, 1 Refills, Maintenance, 09/30/19 16:26:00 EDT, Cream, [facility], 1 application Topically 2 times a day,PRN:for dry skin, 158, cm, 08/27/19 13:02:00 EDT, Height, 76, kg... Start Date: 09/30/19 Status: Ordered Claritin 10 mg oral tablet 10 mg, 1, tablet, By Mouth, Daily, # 15 tablet, Refills 3, Tot. Refills 3, Maintenance, 11/06/18 8:33:38 EDT, Route to Pharmacy Electronically, [id number], [facility] Start Date: 11/06/18 Status: Ordered Dovonex 0.005% topical cream 1 applicator, Topically, 2 times a day, # 60 Gm, 5 Refills, Maintenance, 07/07/19 17:30:00 EDT, [facility], 1 applicator Topically 2 [...] 3 Refills, Maintenance, 06/04/19 14:52:00 EDT, Cream, [facility], 1 application Topically 2 [...] 0 Refills, Soft Stop, 10/18/19 13:38:00 EDT, [facility], 158, cm, ... Start Date: 10/18/19 Status: Ordered Medrol Dosepak 4 mg oral tablet per label intructions, By Mouth, Once, as on label, # 1 each, 0 Refills, Soft Stop, 08/11/19 20:08:00 EDT, [facility] 3, 158, cm, 12/24/18 10:25:00 EDT, [...] 0 Refills, Soft Stop, 08/27/19 14:17:00 EDT, [facility], 1 applicator Topically 3x per week, [...] 3 Refills, Soft Stop, 09/23/19 15:13:00 EDT, [facility], 7, APPLY TOPICALLY TO [...] 0 Refills, Maintenance, 04/06/19 20:19:00 EST, Tablet, [facility], 158, cm, 12/24/18 10:25:00 EDT, Height, 75.5, kg, 04/06/19 17:01:00 EST, Dry Weight Start Date: 04/06/19 Stop Date: 04/13/19 Status: Ordered Problem List Condition Effective Dates Status Health Status Inform ant Opioid type dependence, continuous(Confirmed) 1 Active 1Client had been seen by Jazz Francois at [facility]. Client has no-showed to last appt and today.She will be targetted for closing if she does not responde to correspondence that will be sent on 02/14/13 Social History Social History Type Response Smoking Status 10 or more cigarette s (1/2 pack or more)/day in last 30 days entered on: 01/24/18 Sex
--- OUTSIDE RECORDS SUMMARY | 2022-11-03 10:38 | XMS_ITS | Continuity of Care Document ---
Author Name Unknown Organization [facility] Address Unknown Care Team Providers Care Vegetable Buncher Name Role Phone Ilya De Leon MD Primary Care Physician Encounter [facility] Date(s): 07/05/21 - 08/04/21 [facility] Allergies, Adverse Reactions, Alerts Substance Reaction [...] FLUVIRIN MULTIDOSE ADMINISTERED AT [facility] Medications acetaminophen 650 mg oral tablet, extended release 2 tablet = 1,300 mg, By Mouth, Every 8 hours, # 100 tablet, 1 Refills, Maintenance, 06/29/21 15:10:00 EDT, ER Tablet, [facility]/pharmacy #[id number], Partial fill upon patient request if the prescription is for a schedule II opioid drug., 155, cm, 05/30/21 15:34:... Start Date: 06/29/21 Status: Ordered capsaicin 0.025% topical cream See Instructions, APPLY TO AFFECTED AREA TWICE A DAY, # 60 Gm, 1 Refills, [facility] [id number], 30, APPLY TO AFFECTED AREA TWICE A DAY, 155, cm, 05/30/21 15:34:00 EDT, Height, 95.9, kg, 12/05/20 10:08:00 EDT, Dry Weight Start Date: 05/31/21 Status: Ordered Cavilon Emollient topical cream 1 application, Topically, 2 times a day, PRN for dry skin, # 454 Gm, 1 Refills, Maintenance, 09/30/19 16:26:00 EDT, Cream, [facility] 3, 1 application Topically 2 times a day,PRN:for dry skin, 158, cm, 08/27/19 13:02:00 EDT, Height, 76, kg... Start Date: 09/30/19 Status: Ordered clonazePAM 0.5 mg oral tablet 1 tablet = 0.5 mg, By Mouth, Daily, mAY FILL 06/21/21, # 14 tablet, 0 Refills, Maintenance, 07/29/2212:45:00 EDT, Tablet, [facility], CAREER GUIDANCE COUNSELOR reviewed, covering for Dr. De Leon, 155, cm, 05/30/21 15:34:00 EDT, Height, 95.9, kg, ... Start Date: 07/29/21 Stop Date: 08/12/21 Status: Ordered Dovonex 0.005% topical cream 1 applicator, Topically, 2 times a day, # 60 Gm, 5 Refills, Maintenance, 07/07/19 17:30:00 EDT, [facility], 1 applicator Topically 2 times a day,x30 days, 158, cm, 12/24/18 10:25:00 EDT, Height, 76, kg, 04/12/19 15:31:00 EST, Dry Weight Start Date: 07/07/19 Stop Date: 01/03/20 Status: Ordered fluticasone 50 mcg/inh nasal spray 1 sprays, Nares, Both, 2 times a day, in each nostril. for allergies, # 16 Gm, 0 Refills, Maintenance, 04/27/20 14:35:00 EST, [place], [facility] 3, Partial fill upon patient request [...] A DAY, # 50 Gm, 1 Refills, [facility] [id number], 30, APPLY A THIN FILM TO THE AFFECTED SKIN AND RUB IN GENTLY AND COMPLETELY TWICE A DAY, 155, cm, 12/05/20 10:0... Start Date: 03/15/21 Status: Ordered hydrocortisone 1% topical cream 1 application, Topically, 2 times a day, # 30 Gm, 0 Refills, Maintenance, 06/17/21 11:42:00 EDT, Cream, [facility], Partial fill upon patient request if the prescription is for a schedule II opioid drug., 1 application Topically 2 times... Start Date: 06/17/21 Status: Ordered ketoconazole 2% topical shampoo See Instructions, APPLY 1 APPLICATOR TOPICALLY 3X PER WEEK, # 120 mL, 3 Refills, [facility] [id number], 30, APPLY 1 APPLICATOR TOPICALLY 3X PER WEEK, 155, cm, 05/30/21 15:34:00 EDT, Height, 95.9, kg, 12/05/20 10:08:00 EDT, Dry Weight Start Date: 08/02/21 Status: Ordered loratadine 10 mg oral tablet 1, tablet, By Mouth, Daily, # 15 tablet, Refills 3, Route to Pharmacy Electronically, [facility] [id number], 155, cm, 05/30/21 15:34:00 EDT, Height, 95.9, [...] Soft Stop, 07/27/20 11:50:00 EDT, Cream, [facility], 1 applicationTopically Once,Instr:to skin head to feet, remove b... Start Date: 07/27/20 Status: Ordered predniSONE 10 mg oral tablet 1 tablet, By Mouth, Daily, for 14 days, for 07/22, # 14 tablet, 0 Refills, Physician Stop 08/12/21 13:45:00 EDT, 07/29/21 13:45:00 EDT, [facility], 155, cm, 05/30/21 15:34:00 EDT, Height, [...] to Pharmacy Electronically, [facility] [id number], 155, cm, 05/03/21 14:39:00 EST, Height, 95.9, kg, 12/05/20 10:08:00 EDT, Dry Weight Start Date: 05/09/21 Status: Ordered Problem List Condition Effective Dates Status Health Status Inform ant Anxiety(Confirmed) Active Opioid type dependence, continuous(Confirmed) 1 Active Osteoarthritis of left knee(Confirmed) Active Psoriasis(Confirmed) Active Severe obesity(Confirmed) Active 1Client had been seen by Jazz Frnacois at [facility]. Client has no-showed to last appt and today.She will be targetted for closing if she does not responde to correspondence that will be sent on 02/14/13 Social History Social History Type Response Smoking Status 10 or more cigarette s (1/2 pack or more)/day in last 30 days entered on: 04/18/21 Sex
--- OUTSIDE RECORDS SUMMARY | 2022-11-03 10:38 | XMS_ITS | Continuity of Care Document ---
Author Name Unknown Organization [facility] Address [address] [place] [address]- Care Team Providers Care Newspaper Manager Name Role Phone Ilya De Leon MD Primary Care Physician Encounter [facility] [place] Date(s): 09/20/22 - 10/20/22 [facility]/[address] [address]- [place] Allergies, Adverse Reactions, Alerts Substance Reaction [...] influenza virus vaccine, inactivated 2 01/30/11 Gi libzeth influenza virus vaccine, inactivated 02/06/10 Garrett rded 1Admin Note: ADMIN BY [facility] 2Admin Note: FLUVIRIN MULTIDOSE ADMINISTERED AT [facility] Medications acetaminophen 650 mg oral tablet, extended release 2 tablet = 1,300 mg, By Mouth, Every 8 hours, # 100 tablet, 1 Refills, Maintenance, 06/29/21 15:10:00 EDT, ER Tablet, [id number], Partial fill upon patient request if the prescription is for a schedule II opioid drug., 155, cm, 05/30/21 15:34:... Start Date: 06/29/21 Status: Ordered Cavilon Emollient topical cream 1 application, Topically, 2 times a day, PRN for dry skin, # 454 Gm, 1 Refills, Maintenance, 09/30/19 16:26:00 EDT, Cream, [facility] 3, 1 application Topically 2 times a day,PRN:for dry skin, 158, cm, 08/27/19 13:02:00 EDT, Height, 76, kg... Start Date: 09/30/19 Status: Ordered Cavilon Emollient topical cream 1 application, Topically, 2 times a day, PRN for dry skin, # 454 Gm, 3 Refills, Maintenance, 09/19/22 11:12:00 EDT, Cream, [facility], 1 application Topically 2 times a day,PRN:for dry skin, 155, cm, 09/04/22 10:17:00 EDT, Height,... Start Date: 09/19/22 Status: Ordered cetirizine 10 mg oral tablet, chewable 1 tablet = 10 mg, By Mouth, Daily, PRN for allergy symptoms, # 12 tablet, 4 Refills, Maintenance, 09/04/22 10:28:00 EDT, Chew Tablet, [facility], Partial fill upon patient request ifthe prescription is for a schedule II opioid drug.,... Start Date: 09/04/22 Stop Date: 10/24/22 Status: Ordered cholecalciferol 1000 intl units oral capsule 1 capsule = 25 mcg, By Mouth, Daily, vitamin D, # 100 capsule, 3 Refills, Maintenance, 07/24/22 13:10:00 EDT, Capsule, [facility]/pharmacy #[id number], Partial fill upon patient request if the prescription is fora schedule II opioid drug., 155, cm, 07/17/22 9:50:... Start Date: 07/24/22 Status: Ordered clonazePAM 0.5 mg oral tablet 1 tablet = 0.5 mg, By Mouth, 2 times a day, Increaseddose July weekly on Fridays for 4 weeks starting on 10/05, # 14 tablet, 3 Refills, Maintenance, 10/04/22 8:15:00 EDT, Tablet, [facility], TOP FORMER reviewed, covering for Dr. De Leon, 15... Start Date: 10/04/22 Stop Date: 11/01/22 Status: Ordered clonazePAM 0.5 mg oral tablet 1 tablet = 0.5 mg, By Mouth, 2 times a day, Increaseddose July weekly on Fridays for 3 weeks starting on 07/21, # 14 tablet, 2 Refills, Maintenance, 07/19/22 12:38:00 EDT, Tablet, [facility], TOP FORMER reviewed, covering for Dr. De Leon, 1... [...] each, 3 Refills, Maintenance, 09/19/22 11:12:00 EDT, [facility], Partial fill [...] Gm, 0 Refills, Maintenance, 04/27/20 14:35:00 EST, [place], [facility] 3, Partial fill upon patient request if theprescription is for a schedule II opioid drug., 1... Start Date: 04/27/20 Stop Date: 05/27/20 Status: Ordered halobetasol 0.05% topical ointment See Instructions, APPLY A THIN FILM TO THE AFFECTED SKIN AND RUB IN GENTLY AND COMPLETELY TWICE A DAY, # 50 Gm, 0 Refills, Maintenance, 09/12/22 13:49:00 EDT, [facility]/pharmacy #[id number], 30, APPLY A THIN FILM TO THE AFFECTED SKIN AND RUB IN GENTLY AND COMPLET... Start Date: 09/12/22 Status: Ordered halobetasol 0.05% topical ointment See Instructions, APPLY A THIN FILM TO THE AFFECTED SKIN AND RUB IN GENTLY AND COMPLETELY TWICE A DAY, # 50 Gm, 3 Refills, Maintenance, 09/19/22 11:12:00 EDT, [facility], 30, APPLY A THIN FILM TO THE AFFECTED SKIN AND RUB IN GENTLY... Start Date: 09/19/22 Status: Ordered ketoconazole 2% topical shampoo See Instructions, APPLY 1 APPLICATOR TOPICALLY 3X PER WEEK, # 120 mL, 3 Refills, Maintenance, 05/16/22 8:48:00 EST, [id number], 30, APPLY 1 APPLICATOR TOPICALLY 3X PER WEEK, 155, cm, 01/23/22 14:00:00 EST, Height, 106.5, kg, 09/14/21 9:38:00 EDT,... Start Date: 05/16/22 Status: Ordered loratadine 10 mg oral tablet 1, tablet, By Mouth, Daily, # 30 tablet, Refills 5, Tot. Refills 5, Maintenance, 07/04/22 8:39:00 EDT, Route to Pharmacy Electronically, [facility]/pharmacy #[id number], 155, cm, 01/23/22 14:00:00 EST, Height, 106.5, kg, 09/14/21 9:38:00 EDT, Dry Weight Start Date: 07/04/22 Status: Ordered Methadone By Mouth, 0 Refills, Maintenance Start Date: 12/25/11 Status: Ordered mupirocin 2% topical cream 1 application, Topically, 3 times a day, # 30 Gm, 2 Refills, Maintenance, 03/08/21 10:26:00 EST, Cream, [facility]/pharmacy #[id number], Partial fill upon patient request [...] tablet, 3 Refills, Maintenance, 10/04/22 8:15:00 EDT, [facility], Partial fill [...] 07/24/22 13:12:00 EDT, Route to Pharmacy Electronically, [facility]/pharmacy #[id number], Partial fill upon patient request if the prescription is f... Start Date: 07/24/22 Status: Ordered traMADol 50 mg oral tablet 1 tablet = 50 mg, By Mouth, Every 8 hours, PRN Pain , Severe, for 7 days, 4May fill 10/05/22 and weekly on Fridays for 4 weeks, # 21 tablet, 3 Refills, Acute 11/01/22 8:14:00 EDT, 10/04/22 8:14:00 EDT, Tablet, [facility], Partial fi... Start Date: 10/04/22 Stop [...] Personnel Name: Iyla De Leon MD Position: [facility] Physician - Primary Care Member Role: PCP Address: Address: [address] [place] [id number]- Care Team Related Persons Name: JD ALVAREZ Address: [address] [address]
--- OUTSIDE RECORDS SUMMARY | 2022-11-03 10:38 | XMS_ITS | Continuity of Care Document ---
Author Name Unknown Organization [facility] Address [address] [place] [address]- Care Team Providers Care Tube Heater Name Role Phone Haley NEWMAN, Ilya Primary Care Physician Encounter [facility] Date(s): 03/10/20 - 04/09/20 [facility] [address] [place] [address]- Allergies, Adverse Reactions, Alerts Substance Reaction Severity [...] ADMINISTERED AT [facility] Medications Cavilon Emollient topical cream 1 application, Topically, 2 times a day, PRN for dry skin, # 454 Gm, 1 Refills, Maintenance, 09/30/19 16:26:00 EDT, Cream, [facility], 1 application Topically 2 times a day,PRN:for dry skin, 158, cm, 08/27/19 13:02:00 EDT, Height, 76, kg... Start Date: 09/30/19 Status: Ordered Claritin 10 mg oral tablet 10 mg, 1, tablet, By Mouth, Daily, # 15 tablet, Refills 3, Tot. Refills 3, Maintenance, 11/06/18 8:33:38 EDT, Route to Pharmacy Electronically, [id number], [facility] Start Date: 11/06/18 Status: Ordered Dovonex 0.005% topical cream 1 applicator, Topically, 2 times a day, # 60 Gm, 5 Refills, Maintenance, 07/07/19 17:30:00 EDT, [facility], 1 applicator Topically 2 times [...] 3 Refills, Maintenance, 06/04/19 14:52:00 EDT, Cream, [facility], 1 application Topically 2 times a [...] # 42 tablet, 0 Refills, Soft Stop, 04/06/20 14:54:00 EST, [facility], 158, cm, ... Start Date: 04/06/20 Status: Ordered Medrol Dosepak 4 mg oral tablet per label intructions, By Mouth, Once, as on label, # 1 each, 0 Refills, Soft Stop, 08/11/19 20:08:00 EDT, [facility], 158, cm, 12/24/18 10:25:00 EDT, [...] 0 Refills, Soft Stop, 03/29/20 12:28:00 EST, [facility], 1 applicator Topically 3x per [...] DAYS, # 120 mL, 3 Refills, Maintenance, [facility], 7, APPLY TOPICALLY TO AFFECTED AREA [...] 1 Refills, Maintenance, 03/10/20 18:21:00 EST, Cream, [facility], Partial fill upon patient request [...] 0 Refills, Maintenance, 04/06/19 20:19:00 EST, Tablet, [facility], 158, cm, 12/24/18 10:25:00 EDT, Height, 75.5, kg, 04/06/19 17:01:00 EST, Dry Weight Start Date: 04/06/19 Stop Date: 04/13/19 Status: Ordered Problem List Condition Effective Dates Status Health Status Inform ant Opioid type dependence, continuous(Confirmed) 1 Active 1Client had been seen by Jazz Francois at [facility]. Client has no-showed to last appt and today.She will be targetted for closing if she does not responde to correspondence that will be sent on 02/14/13 Social History Social History Type Response Tobacco Use: 4 or less cigar ettes(less than 1/4 pack)/day in last 30 days. Sex
--- OUTSIDE RECORDS SUMMARY | 2022-11-03 10:38 | XMS_ITS | Continuity of Care Document ---
Author Name Unknown Organization [facility] Address [address] [place] [address]- Care Team Providers Care Color Making Supervisor Name Role Phone Ilya De Leon MD Primary Care Physician Encounter [facility] [place] Date(s): 09/09/19 - 10/09/19 [facility]/[address] [address]- [facility] Allergies, Adverse Reactions, Alerts Substance [...] 11/06/18 8:33:38 EDT, Route to Pharmacy Electronically, [id number], [facility] Start Date: 11/06/18 Status: Ordered Dovonex 0.005% [...] 3 Refills, Maintenance, 06/04/19 14:52:00 EDT, Cream, [facility] [...] 0 Refills, Soft Stop, 09/18/19 16:47:00 EDT, [facility] 3, 158, cm, ... Start Date: 09/18/19 Status: Ordered Medrol Dosepak 4 mg oral tablet per label intructions, By Mouth, Once, as on label, # 1 each, 0 Refills, Soft Stop, 08/11/19 20:08:00 EDT, [facility] 3, 158, cm, 12/24/18 10:25:00 [...] 0 Refills, Soft Stop, 08/27/19 14:17:00 EDT, [facility], 1 applicator Topically 3x per week, [...] 3 Refills, Soft Stop, 09/23/19 15:13:00 EDT, [facility], 7, APPLY TOPICALLY TO AFFECTED [...] 0 Refills, Maintenance, 04/06/19 20:19:00 EST, Tablet, [facility], 158, cm, 12/24/18 10:25:00 EDT, [...]
--- OUTSIDE RECORDS SUMMARY | 2022-11-03 10:38 | XMS_ITS | Continuity of Care Document ---
Author Name Unknown Organization [facility] Address Unknown Care Team Providers Care School Bus Mechanic Name Role Phone Ilya De Leon MD Primary Care Physician [place] [facility] [place]/21 [facility] Allergies, Adverse Reactions, Alerts Substance [...] 1 Refills, Maintenance, 09/30/19 16:26:00 EDT, Cream, [facility], 1 application Topically 2 times a day,PRN:for dry skin, 158, cm, 08/27/19 13:02:00 EDT, Height, 76, kg... Start Date: 09/30/19 Status: Ordered cetirizine 10 mg oral tablet 1 tablet = 10 mg, By Mouth, Daily, # 30 tablet, 0 Refills, Maintenance, 12/03/20 13:44:00 EDT, Tablet, [facility]/pharmacy #[id number], Partial fill upon patient request if the prescription is for a schedule II opioid drug., 158, cm, 12/03/20 13:27:00 EDT, Height,... Start Date: 12/03/20 Status: Ordered Claritin 10 mg oral tablet 10 mg, 1, tablet, By Mouth, Daily, # 15 tablet, Refills 3, Tot. Refills 3, Maintenance, 11/06/18 8:33:38 EDT, Route to Pharmacy Electronically, [id number], [facility] Start Date: 11/06/18 Status: Ordered clonazePAM 0.5 mg oral tablet 1 tablet = 0.5 mg, By Mouth, Daily, SERVICE CONSULTANT checked, # 28 tablet, 0 Refills, Maintenance, 12/24/20 11:42:00 EDT, Tablet, [id number] Partial fill upon patient request if the prescription is for aschedule II opioid drug., 155, cm, 12/05/20 10:08:0... Start Date: 12/24/20 Stop Date: 01/21/21 Status: Ordered diphenhydrAMINE 25 mg oral tablet 1 tablet = 25 mg, By Mouth, 3 times a day, PRN as needed for itching, Will cause drowsiness, # 30 tablet, 0 Refills, Maintenance, 07/16/20 15:11:00 EDT, Tablet, [facility], Partial fill upon patient request if the prescription is f... Start Date: 07/16/20 Status: Ordered Dovonex 0.005% topical cream 1 applicator, Topically, 2 times a day, # 60 Gm, 5 Refills, Maintenance, 07/07/19 17:30:00 EDT, [facility] 3, 1 applicator Topically 2 times a [...] Gm, 0 Refills, Maintenance, 04/27/20 14:35:00 EST, [place], [facility], Partial fill upon patient request if theprescription is for a schedule II opioid drug., 1... Start Date: 04/27/20 Stop Date: 05/27/20 Status: Ordered furosemide 20 mg oral tablet 1, tablet, By Mouth, Daily, # 30 tablet, Refills 3, Tot. Refills 0, Maintenance, 10/21/20 11:22:00 EDT, Route to Pharmacy Electronically, [id number], 158, cm, 10/18/20 10:46:00 EDT, Height, 95.4, kg, 10/16/20 10:11:00 EDT, Dry Weight Start Date: 10/21/20 Status: Ordered halobetasol 0.05% topical ointment See Instructions, APPLY A THIN FILM TO THE AFFECTED SKIN AND RUB IN GENTLY AND COMPLETELY TWICE A DAY, # 50 Gm, 1 Refills, [facility] [id number], 30, APPLY A THIN FILM TO THE AFFECTED SKIN AND RUB IN GENTLY AND COMPLETELY TWICE A DAY, 158, cm, 10/18/20 10:4... Start Date: 12/02/20 Status: Ordered hydrocortisone 1% topical cream 1 application, Topically, 2 times a day, Apply to rash areas, # 60 Gm, 3 Refills, Maintenance, 06/04/19 14:52:00 EDT, Cream, [facility], 1 application Topically 2 times a day,Instr:Apply to rash areas, 158, cm, 12/24/18 10:25:00 EDT, [place]i... Start Date: 06/04/19 Status: Ordered ketoconazole 2% topical shampoo See Instructions, APPLY 1 APPLICATOR TOPICALLY 3X PER WEEK, # 120 mL, 3 Refills, [id number], 30, APPLY 1 APPLICATOR TOPICALLY 3X PER [...] 2 Refills, Maintenance, 12/17/20 15:28:00 EDT, Cream, [facility]/pharmacy #[id number], Partial fill upon patient request if the prescription is for a schedule II opioid drug., 1 application Topically 3 times a day,... Start Date: 12/17/20 Status: Ordered Motley 0.65% nasal spray 2 sprays, Nares, Both, 4 times a day, # 1 each, 0 Refills, Maintenance, 12/03/20 13:46:00 EDT, [facility]/pharmacy #[id number], Partial fill upon patient request [...] Refills, Soft Stop, 07/27/20 11:50:00 EDT, Cream, [facility], 1 applicationTopically Once,Instr:to skin head to feet, remove b... Start Date: 07/27/20 Status: Ordered predniSONE 5 mg oral tablet 1 tablet = 5 mg, By Mouth, 3 times a day, may fill 01/05/21 for 14 days, # 42 tablet, 0 Refills, Maintenance, 01/05/21 12:54:00 EDT, Tablet, [facility]/pharmacy #[id number], Partial fill upon patient request if the prescription is for a schedule II opioid drug., 1... Start Date: 01/05/21 Stop Date: 01/19/21 Status: Ordered selenium sulfide 2.5% topical lotion See Instructions, APPLY TOPICALLY TO AFFECTED AREA EVERY DAY FOR 7 DAYS, # 120 mL, 3 Refills, Soft Stop, 07/23/20 11:40:00 EDT, [facility], 7, APPLY TOPICALLY TO AFFECTED AREA EVERY DAY FOR 7 DAYS, 158, cm, 07/23/20 11:13:00 EDT, H... Start Date: 07/23/20 Status: Ordered Shingrix intramuscular injection = 0.5 mL, Intramuscular, Once, repeat dose in 2 to 6 months, # 2 each, 0 Refills, Soft Stop, 05/27/20 11:03:00 EDT, Powder, [facility], Partial fill upon patient [...] 1 Refills, Maintenance, 03/10/20 18:21:00 EST, Cream, [facility], Partial fill upon patient request if [...]
--- OUTSIDE RECORDS SUMMARY | 2022-11-03 10:38 | XMS_ITS | Continuity of Care Document ---
Author Name Unknown Organization [facility] Address [address] [place] [id number]- Care Team Providers Care Turner And Former Automatic Name Role Phone Ilya De Leon MD Primary Care Physician Encounter [facility] [place] Date(s): 07/13/20 - 08/18/20 [facility]/[address] [address]- Attending Physician: Ilya De Leon MD Admitting [...] 09/30/19 16:26:00 EDT, Cream, [facility], 1 application Topically 2 times a day,PRN:for dry skin, 158, cm, 08/27/19 13:02:00 EDT, Height, 76, kg... Start Date: 09/30/19 Status: Ordered cetirizine 10 mg oral tablet 1 tablet = 10 mg, By Mouth, Daily, for allergies. Do NOT take with claritin, # 30 tablet, 0 Refills, Maintenance, 07/23/20 11:37:00 EDT, Tablet, [facility], Partial fill upon patient request if the prescription is for a schedule II... Start Date: 07/23/20 Stop Date: 08/22/20 Status: Ordered Claritin 10 mg oral tablet 10 mg, 1, tablet, By Mouth, Daily, # 15 tablet, Refills 3, Tot. Refills 3, Maintenance, 11/06/18 8:33:38 EDT, Route to Pharmacy Electronically, [id number], [facility] Start Date: 11/06/18 Status: Ordered diphenhydrAMINE 25 mg oral tablet 1 tablet = 25 mg, By Mouth, 3 times a day, PRN as needed for itching, Will cause drowsiness, # 30 tablet, 0 Refills, Maintenance, 07/16/20 15:11:00 EDT, Tablet, [facility], Partial fill upon patient request if the prescription is f... Start Date: 07/16/20 Status: Ordered Dovonex 0.005% topical cream 1 applicator, Topically, 2 times a day, # 60 Gm, 5 Refills, Maintenance, 07/07/19 17:30:00 EDT, [facility] 3, 1 applicator Topically 2 [...] Gm, 0 Refills, Maintenance, 04/27/20 14:35:00 EST, [place], [facility] 3, Partial fill upon patient request if theprescription is for a schedule II opioid drug., 1... Start Date: 04/27/20 Stop Date: 05/27/20 Status: Ordered halobetasol 0.05% topical cream 1 application, Topically, 2 times a day, # 50 Gm, 3 Refills, Maintenance, 08/02/20 12:54:00 EDT, Cream, [facility], Partial fill upon patient request if the prescription is for a schedule II opioid drug., 1 application Topically 2... Start Date: 08/02/20 Status: Ordered hydrocortisone 1% topical cream 1 application, Topically, 2 times a day, Apply to rash areas, # 60 Gm, 3 Refills, Maintenance, 06/04/19 14:52:00 EDT, Cream, [facility] 3, 1 application Topically 2 times [...] 0 Refills, Soft Stop, 08/06/20 11:18:00 EDT, [facility] 3, 158, cm, 07/23/20 11:13:00 EDT... Start Date: 08/06/20 Status: Ordered Methadone By Mouth, 0 Refills, Maintenance Start Date: 12/25/11 Status: Ordered mupirocin 2% topical ointment 1 application, Topically, 3 times a day, for 7 days, For lesion on right upper arm, # 22 Gm, 0 Refills, Acute 08/19/20 12:30:00 EDT, 08/12/20 12:30:00 EDT, [facility]/pharmacy #[id number], Partial fill upon patient request if the prescription is for a schedule II... Start Date: 08/12/20 Stop Date: 08/19/20 Status: Ordered Nizoral 2% topical shampoo See Instructions, 1 applicator Topically 3x per week, # 120 mL, 3 Refills, Soft Stop, 08/12/20 10:30:00 EDT, [facility]/pharmacy #[id number], 1 applicator Topically 3x per week, 158, cm, 07/23/20 11:13:00 EDT, Height, 82, kg, 07/21/20 20:18:00 EDT, Dry Weight Start Date: 08/12/20 Status: Ordered permethrin 5% topical cream 1 application, Topically, Once, to skin head to feet, remove by washing after 8 to 14 hours, # 60 Gm, 0 Refills, Soft Stop, 07/27/20 11:50:00 EDT, Cream, [facility], 1 applicationTopically Once,Instr:to skin head to feet, remove b... Start Date: 07/27/20 Status: Ordered predniSONE 10 mg oral tablet See Instructions, Take 1 tablets daily fror 21 days more until derm appointment, # 21 tablet, 0 Refills, Maintenance, 08/12/20 10:30:00 EDT, [facility]/pharmacy #[id number], Partial fill upon patient request if the prescription is for a schedule II opioid drug.,... Start Date: 08/12/20 Status: Ordered selenium sulfide 2.5% topical lotion See Instructions, APPLY TOPICALLY TO AFFECTED AREA EVERY DAY FOR 7 DAYS, # 120 mL, 3 Refills, Soft Stop, 07/23/20 11:40:00 EDT, [facility], 7, APPLY TOPICALLY TO AFFECTED AREA EVERY DAY FOR 7 DAYS, 158, cm, 07/23/20 11:13:00 EDT, H... Start Date: 07/23/20 Status: Ordered Shingrix intramuscular injection = 0.5 mL, Intramuscular, Once, repeat dose in 2 to 6 months, # 2 each, 0 Refills, Soft Stop, 05/27/20 11:03:00 EDT, Powder, [facility], Partial fill upon patient request if [...] 1 Refills, Maintenance, 03/10/20 18:21:00 EST, Cream, [facility] 3, Partial fill upon patient request [...] 0 Refills, Maintenance, 07/23/20 11:37:00 EDT, Gel, [facility], 1 application Topically 4 times a day, 158, cm, 07/23/20 11:13:00 EDT, Height, 82, kg, 07/21/20 20:18:00 EDT, Dry We... Start Date: 07/23/20 Status: Ordered Problem List Condition Effective Dates Status Health Status Inform ant Opioid type dependence, continuous(Confirmed) 1 Active 1Client had been seen by Jazz Francois at [facility]. Client has no-showed to last appt and today.She will be targetted for closing if she does not responde to correspondence that will be sent on 02/14/13 Social History Social History Type Response Tobacco Use: 4 or less cigar ettes(less than 1/4 pack)/day in last 30 days. Sex
--- OUTSIDE RECORDS SUMMARY | 2022-11-03 10:38 | XMS_ITS | Continuity of Care Document ---
Author Name Unknown Organization [facility] Address [address] [place] [id number]- Care Team Providers Care Slitting Machine Feeder Name Role Phone Haley NEWMAN, Ilya Primary Care Physician Encounter [facility] Date(s): 06/23/20 - 07/23/20 [facility]/[address] [address]- Allergies, Adverse Reactions, Alerts Substance Reaction Severity [...] FLUVIRIN MULTIDOSE ADMINISTERED AT [facility] Medications Cavilon Emollient topical cream 1 application, Topically, 2 times a day, PRN for dry skin, # 454 Gm, 1 Refills, Maintenance, 09/30/19 16:26:00 EDT, Cream, [facility], 1 application Topically 2 times a day,PRN:for dry skin, 158, cm, 08/27/19 13:02:00 EDT, Height, 76, kg... Start Date: 09/30/19 Status: Ordered cetirizine 10 mg oral tablet 1 tablet = 10 mg, By Mouth, Daily, for allergies. Do NOT take with claritin, # 30 tablet, 0 Refills, Maintenance, 07/23/20 11:37:00 EDT, Tablet, [facility], Partial fill upon patient request if the prescription is for a schedule II... Start Date: 07/23/20 Stop Date: 08/22/20 Status: Ordered Claritin 10 mg oral tablet 10 mg, 1, tablet, By Mouth, Daily, # 15 tablet, Refills 3, Tot. Refills 3, Maintenance, 11/06/18 8:33:38 EDT, Route to Pharmacy Electronically, [id number], [facility] Start Date: 11/06/18 Status: Ordered diphenhydrAMINE 25 mg oral tablet 1 tablet = 25 mg, By Mouth, 3 times a day, PRN as needed for itching, Will cause drowsiness, # 30 tablet, 0 Refills, Maintenance, 07/16/20 15:11:00 EDT, Tablet, [facility], Partial fill upon patient request if the prescription is f... Start Date: 07/16/20 Status: Ordered Dovonex 0.005% topical cream 1 applicator, Topically, 2 times a day, # 60 Gm, 5 Refills, Maintenance, 07/07/19 17:30:00 EDT, [facility] 3, 1 applicator Topically 2 times [...] Gm, 0 Refills, Maintenance, 04/27/20 14:35:00 EST, [place], [facility], Partial fill upon patient request if theprescription is for a schedule II opioid drug., 1... Start Date: 04/27/20 Stop Date: 05/27/20 Status: Ordered hydrocortisone 1% topical cream 1 application, Topically, 2 times a day, Apply to rash areas, # 60 Gm, 3 Refills, Maintenance, 06/04/19 14:52:00 EDT, Cream, [facility], 1 application Topically 2 [...] 0 Refills, Soft Stop, 07/07/20 13:01:00 EDT, [facility] 3, 158, cm, 06/23/20 13:26:00 EDT... Start Date: 07/07/20 Status: Ordered Methadone By Mouth, 0 Refills, Maintenance Start Date: 12/25/11 Status: Ordered mupirocin 2% topical ointment 1 application, Topically, 3 times a day, for 7 days, For lesion on right upper arm, # 22 Gm, 0 Refills, Acute 07/30/20 11:39:00 EDT, 07/23/20 11:39:00 EDT, [facility], Partial fill upon patient request if the prescription is for a... Start Date: 07/23/20 Stop Date: 07/30/20 Status: Ordered Nizoral 2% topical shampoo See Instructions, 1 applicator Topically 3x per week, # 120 mL, 10 Refills, Soft Stop, 05/13/20 11:05:00 EST, [facility], 1 applicator Topically 3x per week, 158, cm, 05/10/20 11:36:00 EST, Height, 76, kg, 04/12/19 15:31:00 EST, Dry Weight Start Date: 05/13/20 Status: Ordered oxyCODONE 5 mg oral tablet 5 mg, 1, tablet, By Mouth, Every 6 hours, PRN, # 12 tablet, Refills 0, Tot. Refills 0, Acute 08/02/20 12:00:00 EDT, Pain , Severe, 07/23/20 11:48:00 EDT, Route to Pharmacy Electronically, [facility], Partial fill upon patient reque... Start Date: [...] days, # 10 tablet, 0 Refills, Acute 07/28/20 11:51:00 EDT,07/23/20 11:51:00 EDT, Tablet, [facility], Partial fill upon patient request ifthe prescription is for a schedule II opioid drug.,... Start Date: 07/23/20 Stop Date: 07/28/20 Status: Ordered selenium sulfide 2.5% topical lotion See Instructions, APPLY TOPICALLY TO AFFECTED AREA EVERY DAY FOR 7 DAYS, # 120 mL, 3 Refills, Soft Stop, 07/23/20 11:40:00 EDT, [facility], 7, APPLY TOPICALLY TO AFFECTED AREA EVERY DAY FOR 7 DAYS, 158, cm, 07/23/20 11:13:00 EDT, H... Start Date: 07/23/20 Status: Ordered Shingrix intramuscular injection = 0.5 mL, Intramuscular, Once, repeat dose in 2 to 6 months, # 2 each, 0 Refills, Soft Stop, 05/27/20 11:03:00 EDT, Powder, [facility], Partial fill upon patient request [...] 1 Refills, Maintenance, 03/10/20 18:21:00 EST, Cream, [facility] 3, Partial fill upon patient request if the prescription is fora schedule II opioid drug., 1 application Topically... Start Date: 03/10/20 Status: Ordered tetracycline 500 mg oral capsule 1 capsule = 500 mg, By Mouth, Every 6 hours, for 7 days, # 28 capsule, 0 Refills, Acute 07/30/20 11:52:00 EDT, 07/23/20 11:52:00 EDT, Capsule, [facility], Partial fill upon patient request [...] 0 Refills, Maintenance, 07/23/20 11:37:00 EDT, Gel, [facility], 1 application Topically 4 times a [...]
--- OUTSIDE RECORDS SUMMARY | 2022-11-03 10:38 | XMS_ITS | Continuity of Care Document ---
Author Name Unknown Organization [facility] ter Address [address] [place] [id number]- Care Team Providers Care Jewel Hole Rough Opener Name Role Phone Ilya De Leon MD Primary Care Physician En[place] [facility] Date(s): 08/30/21 - 08/30/[address] [address]- Discharge Disposition: A-D/C Home Attending Physician: Kale Carnes MD Admitting Physician: Kale Carnes MD Referring Physician: Not on Staff, Referring MD Allergies, Adverse Reactions, Alerts Substance Reaction Severity Status penicillin Rash Active morphine HAND SWELLING Active Motrin tight throat Rash Active Imitrex Chest pain Active Reglan Agitated Active trimethoprim-sulfamethoxazole DS 1 Throa t Hives 17-MAY-2013 07:29:57<$> Unknown Active aspirin Ibuprofen tight throat Rash Active Toradol Rash Active Compazine throat swells Active dehydroepiandrosterone [...] Maintenance, 06/29/21 15:10:00 EDT, ER Tablet, [id number], Partial fill upon patient request if the prescription is for a schedule II opioid drug., 155, cm, 05/30/21 15:34:... Start Date: 06/29/21 Status: Ordered capsaicin 0.025% topical cream See Instructions, APPLY TO AFFECTED AREA TWICE A DAY, # 60 Gm, 1 Refills, [id number], 30, APPLY TO AFFECTED AREA TWICE A DAY, 155, cm, 05/30/21 15:34:00 EDT, Height, 95.9, kg, 12/05/20 10:08:00 EDT, Dry Weight Start Date: 05/31/21 Status: Ordered Cavilon Emollient topical cream 1 application, Topically, 2 times a day, PRN for dry skin, # 454 Gm, 1 Refills, Maintenance, 09/30/19 16:26:00 EDT, Cream, [facility], 1 application Topically 2 times a day,PRN:for dry skin, 158, cm, 08/27/19 13:02:00 EDT, Height, 76, kg... Start Date: 09/30/19 Status: Ordered clonazePAM 0.5 mg oral tablet 1 tablet = 0.5 mg, By Mouth, Daily, May fill 08/12/21, # 14 tablet, 0 Refills, Maintenance, 08/24/21 14:44:00 EDT, Tablet, [facility], [facility] reviewed, covering for Dr. De Leon, 155, cm, 05/30/21 15:34:00 EDT, Height, 95.9, kg, 12/05/20... Start Date: 08/24/21 Stop Date: 09/07/21 Status: Ordered Dovonex 0.005% topical cream 1 applicator, Topically, 2 times a day, # 60 Gm, 5 Refills, Maintenance, 07/07/19 17:30:00 EDT, [facility], 1 applicator Topically 2 times a day,x30 days, 158, cm, 12/24/18 10:25:00 EDT, Height, 76, kg, 04/12/19 15:31:00 EST, Dry Weight Start Date: 07/07/19 Stop Date: 01/03/20 Status: Ordered fluticasone 50 mcg/inh nasal spray 1 sprays, Nares, Both, 2 times a day, in each nostril. for allergies, # 16 Gm, 0 Refills, Maintenance, 04/27/20 14:35:00 EST, [place], [facility], Partial fill upon patient request if theprescription is for a schedule II opioid drug., 1... Start Date: 04/27/20 Stop Date: 05/27/20 Status: Ordered furosemide 20 mg oral tablet 1, tablet, By Mouth, Daily, # 30 tablet, Refills 3, Tot. Refills 3, Maintenance, 04/18/21 12:11:00 EST, Route to Pharmacy Electronically, [facility] #[id number], 155, cm, 04/18/21 10:12:00 EST, Height, 95.9, kg, 12/05/20 10:08:00 EDT, Dry Weight Start Date: 04/18/21 Status: Ordered halobetasol 0.05% topical ointment See Instructions, APPLY A THIN FILM TO THE AFFECTED SKIN AND RUB IN GENTLY AND COMPLETELY TWICE A DAY, # 50 Gm, 1 Refills, [facility] [id number], , APPLY A THIN FILM TO THE AFFECTED SKIN AND RUB IN GENTLY AND COMPLETELY TWICE A DAY, 155, cm, 12/05/20 10:0... Start Date: 03/15/21 Status: Ordered hydrocortisone 1% topical cream 1 application, Topically, 2 times a day, # 30 Gm, 0 Refills, Maintenance, 06/17/21 11:42:00 EDT, Cream, [facility] 3, Partial fill upon patient request if the prescription is for a schedule II opioid drug., 1 application Topically 2 times... Start Date: 06/17/21 Status: Ordered hydrOXYzine hydrochloride 25 mg oral tablet 1 capsule, By Mouth, 3 times a day, PRN for itching, for 30 days, # 90 capsule, 1 Refills, Acute 10/23/21 14:41:00 EDT, 08/24/21 14:41:00 EDT, Capsule, [facility], Partial fill upon patient request if the prescription is for a sche... Start Date: 08/24/21 Stop Date: 10/23/21 Status: Ordered ketoconazole 2% topical shampoo See Instructions, APPLY 1 APPLICATOR TOPICALLY 3X PER WEEK, # 120 mL, 3 Refills, [id number], 30, APPLY 1 APPLICATOR TOPICALLY 3X PER WEEK, 155, cm, 05/30/21 15:34:00 EDT, Height, 95.9, kg, 12/05/20 10:08:00 EDT, Dry Weight Start Date: 08/02/21 Status: Ordered loratadine 10 mg oral tablet 1, tablet, By Mouth, Daily, # 15 tablet, Refills 5, Tot. Refills 5, Maintenance, 08/19/21 9:15:00 EDT, Route to Pharmacy Electronically, [facility]/pharm[facility] #[id number], 155, cm, 05/30/21 15:34:00 EDT, Height, 95.9, kg, 12/05/20 10:08:00 EDT, Dry Weight Start Date: 08/19/21 Status: Ordered Methadone By Mouth, 0 Refills, Maintenance Start Date: 12/25/11 Status: Ordered mupirocin 2% topical cream 1 application, Topically, 3 times a day, # 30 Gm, 2 Refills, Maintenance, 03/08/21 10:26:00 EST, Cream, [facility]/pharmacy #[id number], Partial fill upon patient request if the prescription is for a schedule II opioid drug., 1 application Topically 3 times a day,... Start Date: 03/08/21 Status: Ordered Percocet-5 Tablet 2 tablet, Tablet, By Mouth, Once, STAT, 08/30/21 17:52:00 EDT, Stop date 08/30/21 17:52:00 EDT Start Date: 08/30/21 Stop Date: 08/30/21 Status: Completed permethrin 5% topical cream 1 application, Topically, Once, to skin head to feet, remove by washing after 8 to 14 hours, # 60 Gm, 0 Refills, Soft Stop, 07/27/20 11:50:00 EDT, Cream, [facility], 1 applicationTopically Once,Instr:to skin head to feet, remove b... Start Date: 07/27/20 Status: Ordered predniSONE 10 mg oral tablet 1 tablet, By Mouth, Daily, for 7 days, # 7 tablet, 0 Refills, Physician Stop 08/31/21 14:44:00 EDT,08/24/21 14:44:00 EDT, [facility], 155, cm, 05/30/21 15:34:00 EDT, Height, 95.9, kg, 12/05/20 10:08:00 EDT, Dry Weight Start Date: 08/24/21 Stop Date: 08/31/21 Status: Ordered selenium sulfide 2.5% topical lotion See Instructions, APPLY TOPICALLY TO AFFECTED AREA EVERY DAY FOR 7 DAYS, # 120 mL, 3 Refills, Soft Stop, 04/26/21 18:07:00 EST, [facility]/pharmacy #[id number], 7, APPLY TOPICALLY TO AFFECTED AREA EVERY DAY FOR 7DAYS, 155, cm, 04/18/21 10:12:00 EST, Height, 95.9,... Start Date: 04/26/21 Status: Ordered tiZANidine 2 mg oral tablet 1, tablet, By Mouth, 3 times a day, # 60 tablet, Refills 0, Route to Pharmacy Electronically, [id number], 155, cm, 05/03/21 14:39:00 EST, Height, 95.9, kg, 12/05/20 10:08:00 EDT, Dry Weight Start Date: 05/09/21 Status: Ordered traMADol 50 mg oral tablet 1 tablet = 50 mg, By Mouth, Every 12 hours, PRN Pain , Severe, for 7 days, # 14 tablet, 0 Refills, Acute 08/31/21 14:44:00 EDT, 08/24/21 14:44:00 EDT, Tablet, [facility], Partial fill upon patient request if the prescription is for... Start Date: 08/24/21 Stop Date: 08/31/21 Status: Ordered Problem List Condition Effective Dates [...] Exam Date Time Procedure Performing Provider Status 08/30/21 1:59 PM Ankle Min 3 Views Left David Rodriguez; Martin (Verified) Notes: (Ankle Min 3 Views Left) Reason For Exam: Pain RESULT: Ankle Min 3 Views Left Ankle Min 3 Views Left Hx of Present Illness: Fall this morning, slipped on just washed slippery floor. Fell backwards, + headstrike. c o OLIVA, L ankle, L knee pain and lower back pain. Needs L knee replacement, states pain to L knee worse. Denies thinners, no LOC. Took tylenol before coming; Reason: Pain; Clinical Question(s): Fracture COMPARISON: Radiographs of the left foot 04/06/2018 FINDINGS: No acute fracture or dislocation. Chronic deformity of the mid shaft of the fifth metatarsal, unchanged. Intact ankle mortise and talar dome. Osteoarthritis of the midfoot and hindfoot better evaluated on prior foot radiograph. Diffuse soft tissue swelling. IMPRESSION: No acute osseous abnormality. I have personally reviewed the images and I agree with this report. WSN: [id number] Ordering Physician: Mundo Farmer Dictated By: Marcel Hassan DO Dictated Date/Time: 08/30/21 2:14 pm Reviewed By: Roya Elias MD Signed By: Roya Elias MD Signed Date/Time: 08/30/21 2:19 pm Transcribed By: MIRNA Transcribed Date/Time: 08/30/21 2:08 pm * Exam Date Time Procedure Performing Provider Status 08/30/21 1:59 PM Knee 1 or 2 Views Left David Rodriguez; Martin (Verified) Notes: (Knee 1 or 2 Views Left) Reason For Exam: Pain RESULT: Knee 1 or 2 Views Left Knee 1 or 2 Views Left, 2 views Hx of Present Illness: Fall this morning, slipped on just washed slippery floor. Fell backwards, + headstrike. c o OLIVA, L ankle, L knee pain and lower back pain. Needs L knee replacement, states pain to L knee worse. Denies thinners, no LOC. Took tylenol before coming; Reason: Pain; Clinical Question(s): Fracture; COMPARISON: 05/14/2021. FINDINGS: There is no evidence of acute or healing fracture, dislocation or bone lesion. Moderate tricompartmental degenerative osteoarthritis but no evidence of osteochondral defect or intra-articular loose body. No evidence of joint effusion. IMPRESSION: Moderate tricompartmental degenerative osteoarthritis but no acute abnormality. I have personally reviewed the images and I agree with this report. WSN: [id number] Ordering Physician: Mundo Farmer Dictated By: Marcel Hassan DO Dictated Date/Time: 08/30/21 2:07 pm Reviewed By: Roya Elias MD Signed By: Roya Elias MD Signed Date/Time: 08/30/21 2:12 pm Transcribed By: MIRNA Transcribed Date/Time: 08/30/21 2:04 pm Vital Signs Most recent to oldest [Reference Range]: 1 2 3 Oxygen Saturation [94-100 %] 100 % (08/30/21 5:50 PM) 100 % (08/30/21 3:35 PM) 97 % (08/30/21 12:47 PM) Pulse Rate [55-90 bpm] 93 bpm *H* (08/30/21 5:50 PM) 81 bpm (08/30/21 3:35 PM) 82 bpm (08/30/21 12:47 PM) Blood Pressure [90-138/55-84 mm Hg] 127/109mm Hg (08/30/21 5:50 PM) 125/76mm Hg (08/30/21 3:35 PM) 135/88mm Hg (08/30/21 12:47 PM) Respiratory Rate [16-30 br/min] 20 br/min (08/30/21 6:16 PM) 14 br/min *L* (08/30/21 12:47 PM) Temperature [96.8-100.4 DegF] 98.6 DegF (08/30/21 5:50 PM) 97.5 DegF (08/30/21 3:35 PM) 97.9 DegF (08/30/21 12:47 PM) Mode of Delivery (Oxygen) Room air (08/30/21 5:50 PM) Room air (08/30/21 3:35 PM) Room air (08/30/21 12:19 PM) Blood pressure sites Arm, left (08/30/21 5:50 PM) Arm, left (08/30/21 3:35 PM) Temperature Route Oral (08/30/21 5:50 PM) Oral (08/30/21 3:35 PM) Oral (08/30/21 12:47 PM) Social History Social History Type Response Smoking Status 10 or more cigarette s (1/2 pack or more)/day in last 30 days entered on: 04/18/21 Sex
--- OUTSIDE RECORDS SUMMARY | 2022-11-03 10:38 | XMS_ITS | Continuity of Care Document ---
Author Name Unknown Organization [facility] Address Unknown Care Team Providers Care Hunting Sales Leader Name Role Phone Ilya De Leon MD Primary Care Physician Encounter [facility] Date(s): 12/29/20 - 01/28/21 [facility] Allergies, Adverse Reactions, Alerts Substance [...] 1 Refills, Maintenance, 09/30/19 16:26:00 EDT, Cream, [facility], 1 application Topically 2 times a day,PRN:for dry skin, 158, cm, 08/27/19 13:02:00 EDT, Height, 76, kg... Start Date: 09/30/19 Status: Ordered cetirizine 10 mg oral tablet 1 tablet = 10 mg, By Mouth, Daily, # 30 tablet, 0 Refills, Maintenance, 12/03/20 13:44:00 EDT, Tablet, [facility]acy #[id number], Partial fill upon patient request if the prescription is for a schedule II opioid drug., 158, cm, 12/03/20 13:27:00 EDT, Height,... Start Date: 12/03/20 Status: Ordered Claritin 10 mg oral tablet 10 mg, 1, tablet, By Mouth, Daily, # 15 tablet, Refills 3, Tot. Refills 3, Maintenance, 11/06/18 8:33:38 EDT, Route to Pharmacy Electronically, [id number], [facility] Start Date: 11/06/18 Status: Ordered clonazePAM 0.5 mg oral tablet 1 tablet = 0.5 mg, By Mouth, Daily, PERFORMING ARTIST checked Fill 01/21/21 for 28 days, # 28 tablet, 0 Refills, Maintenance, 01/20/21 12:45:00 EST, [id number] Partial fill upon patient request ifthe prescription is for a schedule II opioid drug.... Start Date: 01/20/21 Stop Date: 02/17/21 Status: Ordered diphenhydrAMINE 25 mg oral tablet 1 tablet = 25 mg, By Mouth, 3 times a day, PRN as needed for itching, Will cause drowsiness, # 30 tablet, 0 Refills, Maintenance, 07/16/20 15:11:00 EDT, Tablet, [facility], Partial fill upon patient request if the prescription is f... Start Date: 07/16/20 Status: Ordered Dovonex 0.005% topical cream 1 applicator, Topically, 2 times a day, # 60 Gm, 5 Refills, Maintenance, 07/07/19 17:30:00 EDT, [facility] 3, 1 applicator Topically 2 [...] 0 Refills, Maintenance, 04/27/20 14:35:00 EST, [place], [facility], Partial fill upon patient request if theprescription is for a schedule II opioid drug., 1... Start Date: 04/27/20 Stop Date: 05/27/20 Status: Ordered furosemide 20 mg oral tablet 1, tablet, By Mouth, Daily, # 30 tablet, Refills 3, Tot. Refills 3, Maintenance, 01/20/21 12:45:00 EST, Route to Pharmacy Electronically, [facility]/pharmacy #[id number], 155, cm, 12/05/20 10:08:00 EDT, Height, 95.9, kg, 12/05/20 10:08:00 EDT, Dry Weight Start Date: 01/20/21 Status: Ordered halobetasol 0.05% topical ointment See Instructions, APPLY A THIN FILM TO THE AFFECTED SKIN AND RUB IN GENTLY AND COMPLETELY TWICE A DAY, # 50 Gm, 1 Refills, [facility] [id number], 30, APPLY A THIN FILM TO THE AFFECTED SKIN AND RUB IN GENTLY AND COMPLETELY TWICE A DAY, 155, cm, 12/05/20 10:0... Start Date: 01/16/21 Status: Ordered hydrocortisone 1% topical cream 1 application, Topically, 2 times a day, Apply to rash areas, # 60 Gm, 3 Refills, Maintenance, 06/04/19 14:52:00 EDT, Cream, [facility], 1 application Topically 2 times a day,Instr:Apply to rash areas, 158, cm, 12/24/18 10:25:00 EDT, Hei... Start Date: 06/04/19 Status: Ordered ketoconazole 2% topical shampoo See Instructions, APPLY 1 APPLICATOR TOPICALLY 3X PER WEEK, # 120 mL, 3 Refills, [facility] [id number], 30, APPLY 1 APPLICATOR TOPICALLY 3X PER [...] 2 Refills, Maintenance, 12/17/20 15:28:00 EDT, Cream, [facility]/pharmacy #[id number], Partial fill upon patient request if the prescription is for a schedule II opioid drug., 1 application Topically 3 times a day,... Start Date: 12/17/20 Status: Ordered [place] 0.65% nasal spray 2 sprays, Nares, Both, 4 times a day, # 1 each, 0 Refills, Maintenance, 12/03/20 13:46:00 EDT, [facility]/pharmacy #[id number], Partial [...] Soft Stop, 07/27/20 11:50:00 EDT, Cream, [facility], 1 applicationTopically Once,Instr:to skin head to feet, remove b... Start Date: 07/27/20 Status: Ordered predniSONE 5 mg oral tablet 1 tablet = 5 mg, By Mouth, 3 times a day, may fill 01/21/21 for 14 days, # 42 tablet, 0 Refills, Maintenance, 01/20/21 12:45:00 EST, Tablet, [facility]/pharmacy #[id number], Partial fill upon patient request if the prescription is for a schedule II opioid drug., 1... Start Date: 01/20/21 Stop Date: 02/03/21 Status: Ordered selenium sulfide 2.5% topical lotion See Instructions, APPLY TOPICALLY TO AFFECTED AREA EVERY DAY FOR 7 DAYS, # 120 mL, 3 Refills, Soft Stop, 07/23/20 11:40:00 EDT, [facility], 7, APPLY TOPICALLY TO AFFECTED AREA EVERY DAY FOR 7 DAYS, 158, cm, 07/23/20 11:13:00 EDT, H... Start Date: 07/23/20 Status: Ordered Shingrix intramuscular injection = 0.5 mL, Intramuscular, Once, repeat dose in 2 to 6 months, # 2 each, 0 Refills, Soft Stop, 05/27/20 11:03:00 EDT, Powder, [facility], Partial fill upon patient request if the [...] 1 Refills, Maintenance, 03/10/20 18:21:00 EST, Cream, [facility] 3, Partial fill [...]
--- OUTSIDE RECORDS SUMMARY | 2022-11-03 10:38 | XMS_ITS | Continuity of Care Document ---
Author Name Unknown Organization [facility] Address [address] [place] [id number]- Care Team Providers Care Boat Laborer Name Role Phone Haley NEWMAN, Ilya Primary Care Physician Encounter [facility] [place] Date(s): 09/06/20 - 10/06/20 [facility]/[address] [address]- Allergies, Adverse Reactions, Alerts Substance Reaction Severity [...] [facility] Medications acetaminophen 500 mg oral tablet 2 tablet = 1,000 mg, By Mouth, 3 times a day, PRN as needed for fever, not to exceed 3000 mg/day take scheduled three times a day, # 100 tablet, 1 Refills, Acute 12/26/20 11:44:00 EDT, 09/24/20 11:43:00 EDT, Tablet, [facility]/pharmacy #[id number], Partial fill u... Start Date: 09/24/20 Stop Date: 12/26/20 Status: Ordered Cavilon Emollient topical cream 1 application, Topically, 2 times a day, PRN for dry skin, # 454 Gm, 1 Refills, Maintenance, 09/30/19 16:26:00 EDT, Cream, [facility] 3, 1 application Topically 2 times a day,PRN:for dry skin, 158, cm, 08/27/19 13:02:00 EDT, Height, 76, kg... Start Date: 09/30/19 Status: Ordered cetirizine 10 mg oral tablet 1 tablet = 10 mg, By Mouth, Daily, for allergies. Do NOT take with claritin, # 30 tablet, 0 Refills, Maintenance, 07/23/20 11:37:00 EDT, Tablet, [facility], Partial fill upon patient request if the prescription is for a schedule II... Start Date: 07/23/20 Stop Date: 08/22/20 Status: Ordered Claritin 10 mg oral tablet 10 mg, 1, tablet, By Mouth, Daily, # 15 tablet, Refills 3, Tot. Refills 3, Maintenance, 11/06/18 8:33:38 EDT, Route to Pharmacy Electronically, [id number], [facility] Start Date: 11/06/18 Status: Ordered clonazePAM 0.5 mg oral tablet 1 tablet = 0.5 mg, By Mouth, Daily, # 28 tablet, 0 Refills, Maintenance, 09/22/20 12:58:00 EDT, Tablet, [facility], Partial fill upon patient request if the prescription is for a schedule II opioid drug., 158, cm, 09/08/20 14:36:00... Start Date: 09/22/20 Status: Ordered diphenhydrAMINE 25 mg oral tablet 1 tablet = 25 mg, By Mouth, 3 times a day, PRN as needed for itching, Will cause drowsiness, # 30 tablet, 0 Refills, Maintenance, 07/16/20 15:11:00 EDT, Tablet, [facility], Partial fill upon patient request if the prescription is f... Start Date: 07/16/20 Status: Ordered Dovonex 0.005% topical cream 1 applicator, Topically, 2 times a day, # 60 Gm, 5 Refills, Maintenance, 07/07/19 17:30:00 EDT, [facility] 3, 1 applicator Topically 2 times [...] Gm, 0 Refills, Maintenance, 04/27/20 14:35:00 EST, [place], [facility], Partial fill upon patient request if theprescription is for a schedule II opioid drug., 1... Start Date: 04/27/20 Stop Date: 05/27/20 Status: Ordered furosemide 20 mg oral tablet 20 mg, 1, tablet, By Mouth, Daily, # 30 tablet, Refills 1, Tot. Refills 1, Maintenance, 08/27/20 16:12:00 EDT, [facility] to [facility] Electronically, [facility] [...] 10/18/20 14:15:00 EDT, 09/24/20 13:11:00 EDT, Ointment, [facility]/pharmacy #[id number], Partial fill upon patient reques... Start Date: 09/24/20 Stop Date: 10/18/20 Status: Ordered hydrocortisone 1% topical cream 1 application, Topically, 2 times a day, Apply to rash areas, # 60 Gm, 3 Refills, Maintenance, 06/04/19 14:52:00 EDT, Cream, [facility], 1 application Topically 2 [...] 12/26/20 11:39:00 EDT, 09/24/20 11:38:00 EDT, Ointment, [facility]/pharmacy #[id number], [...] 2 Refills, Maintenance, 09/14/20 17:22:00 EDT, Cream, [facility]/pharmacy #[id number], Partial fill upon patient request if the prescription is for a schedule II opioid drug., 1 application Topically 3 times a day,... Start Date: 09/14/20 Status: Ordered Nizoral 2% topical shampoo See Instructions, 1 applicator Topically 3x per week, # 120 mL, 3 Refills, Soft Stop, 08/12/20 10:30:00 EDT, [facility]/pharmacy #[id number], 1 applicator Topically 3x per week, 158, cm, 07/23/20 11:13:00 EDT, Height, 82, kg, 07/21/20 20:18:00 EDT, Dry Weight Start Date: 08/12/20 Status: Ordered permethrin 5% topical cream 1 application, Topically, Once, to skin head to feet, remove by washing after 8 to 14 hours, # 60 Gm, 0 Refills, Soft Stop, 07/27/20 11:50:00 EDT, Cream, [facility], 1 applicationTopically Once,Instr:to skin head to feet, remove b... Start Date: 07/27/20 Status: Ordered predniSONE 5 mg oral tablet 1 tablet = 5 mg, By Mouth, 3 times a day, # 21 tablet, 0 Refills, Maintenance, 10/06/20 15:03:00 EDT, Tablet, [facility] [...] 3 Refills, Soft Stop, 07/23/20 11:40:00 EDT, [facility], 7, APPLY TOPICALLY TO AFFECTED AREA EVERY DAY FOR 7 DAYS, 158, cm, 07/23/20 11:13:00 EDT, H... Start Date: 07/23/20 Status: Ordered Shingrix intramuscular injection = 0.5 mL, Intramuscular, Once, repeat dose in 2 to 6 months, # 2 each, 0 Refills, Soft Stop, 05/27/20 11:03:00 EDT, Powder, [facility], Partial fill upon patient request if [...] 1 Refills, Maintenance, 03/10/20 18:21:00 EST, Cream, [facility], Partial fill upon patient [...] 0 Refills, Maintenance, 09/24/20 11:47:00 EDT, Gel, [facility]/pharmacy #[id number], 1 application Topically 4 times a day,Instr:for knee pain, 158, cm, 09/24/20 10:45:00 EDT, Height, 82, kg, ... Start Date: 09/24/20 Status: Ordered Problem List Condition Effective Dates Status Health Status Inform ant Opioid type dependence, continuous(Confirmed) 1 Active 1Client had been seen by Jazz Francois at [facility]. Client has no-showed to last appt and today.She will be targetted for closing if she does not responde to correspondence that will be sent on 02/14/13 Social History Social History Type Response Smoking Status 5-9 cigarettes (betw een 1/4 to 1/2 pack)/day in last 30 days entered on: 09/08/20 Sex
--- OUTSIDE RECORDS SUMMARY | 2022-11-03 10:38 | XMS_ITS | Continuity of Care Document ---
Author Name Unknown Organization [facility] Address [address] [place] [address]- Care Team Providers Care Health Promotion Officer Name Role Phone Ilya De Leon MD Primary Care Physician Encounter [facility] [place] Date(s): 02/06/22 - 03/08/22 [facility]/[address] [address]- Attending Physician: Celsa Lyons Allergies, Adverse Reactions, [...] Maintenance, 06/29/21 15:10:00 EDT, ER Tablet, [id number], Partial fill upon patient request if the prescription is for a schedule II opioid drug., 155, cm, 05/30/21 15:34:... Start Date: 06/29/21 Status: Ordered capsaicin 0.025% topical cream See Instructions, APPLY TO AFFECTED AREA TWICE A DAY, # 60 Gm, 1 Refills, [facility] [id number], 30, APPLY TO AFFECTED AREA TWICE A DAY, 155, cm, 05/30/21 15:34:00 EDT, Height, 95.9, kg, 12/05/20 10:08:00 EDT, Dry Weight Start Date: 05/31/21 Status: Ordered Cavilon Emollient topical cream 1 application, Topically, 2 times a day, PRN for dry skin, # 454 Gm, 1 Refills, Maintenance, 09/30/19 16:26:00 EDT, Cream, [facility], 1 application Topically 2 times a day,PRN:for dry skin, 158, cm, 08/27/19 13:02:00 EDT, Height, 76, kg... Start Date: 09/30/19 Status: Ordered clonazePAM 0.5 mg oral tablet 1 tablet = 0.5 mg, By Mouth, Daily at bedtime, May fill 03/03/22 and weekly on Fridays for3 weeks, # 7 tablet, 2 Refills, Maintenance, 03/01/22 11:51:00 EST, Tablet, [facility], FLOOR TRADER reviewed, covering for Dr. De Leon, 155, cm, 01/10... Start Date: 03/01/22 Stop Date: 03/22/22 Status: Ordered coal tar topical 1% lotion See Instructions, applyTopically Daily at bedtime, # 120 mL, 3 Refills, Maintenance, 10/26/21 15:45:00 EDT, [facility], Partial fill upon patient request if the prescription is for a schedule II opioid drug., applyTopically Daily a... Start Date: 10/26/21 Status: Ordered Dovonex 0.005% topical cream 1 applicator, Topically, 2 times a day, # 60 Gm, 5 Refills, Maintenance, 07/07/19 17:30:00 EDT, [facility] 3, 1 applicator Topically 2 times a day,x30 days, 158, cm, 12/24/18 10:25:00 EDT, Height, 76, kg, 04/12/19 15:31:00 EST, Dry Weight Start Date: 07/07/19 Stop Date: 01/03/20 Status: Ordered Eucerin Unscented topical lotion See Instructions, apply as frequently as needed, # 1 each, 0 Refills, Maintenance, 09/28/21 12:23:00 EDT, [facility], Partial fill upon patient request if the prescription is for a schedule II opioid drug., apply as frequently as n... Start Date: 09/28/21 Status: Ordered fluticasone 50 mcg/inh nasal spray 1 sprays, Nares, Both, 2 times a day, in each nostril. for allergies, # 16 Gm, 0 Refills, Maintenance, 04/27/20 14:35:00 EST, [place], [facility] 3, Partial fill upon patient request if theprescription is for a schedule II opioid drug., 1... Start Date: 04/27/20 Stop Date: 05/27/20 Status: Ordered halobetasol 0.05% topical ointment See Instructions, APPLY A THIN FILM TO THE AFFECTED SKIN AND RUB IN GENTLY AND COMPLETELY TWICE A DAY, # 50 Gm, 1 Refills, Maintenance, 10/26/21 15:44:00 EDT, [facility], 30, APPLY A THIN FILM TO THE AFFECTED SKIN AND RUB IN GENTLY... Start Date: 10/26/21 Status: Ordered ketoconazole 2% topical shampoo See Instructions, APPLY 1 APPLICATOR TOPICALLY 3X PER WEEK, # 120 mL, 3 Refills, Maintenance, 12/27/21 19:30:00 EDT, [id number], 30, APPLY 1 APPLICATOR TOPICALLY 3X PER WEEK, 155, cm, 12/12/21 16:00:00 EDT, Height, 106.5, kg, 09/14/21 9:38:00 EDT... Start Date: 12/27/21 Status: Ordered loratadine 10 mg oral tablet 1, tablet, By Mouth, Daily, # 90 tablet, Refills 1, Tot. Refills 1, Maintenance, 11/01/21 15:19:00 EDT, Route to Pharmacy Electronically, [facility]/pharmacy #[id number], 155, cm, 09/28/21 12:06:00 EDT, [...] Refills, Soft Stop, 07/27/20 11:50:00 EDT, Cream, [facility], 1 applicationTopically Once,Instr:to skin head to feet, remove b... Start Date: 07/27/20 Status: Ordered predniSONE 10 mg oral tablet See Instructions, May fill 03/03/22 and weekly on Fridays for 3 weeks, # 14 tablet, 2 Refills, 03/01/22 11:51:00 EST, [facility], 155, cm, 01/23/22 14:00:00 EST, Height, 106.5, kg, 09/14/21 9:38:00 EDT, Dry Weight Start Date: 03/01/22 Status: Ordered selenium sulfide 2.5% topical lotion See Instructions, APPLY TOPICALLY TO AFFECTED AREA EVERY DAY FOR 7 DAYS, # 120 mL, 3 Refills, Soft Stop, 10/26/21 15:43:00 EDT, [facility], 7, APPLY TOPICALLY TO AFFECTED AREA EVERY DAY FOR 7 DAYS, 155, cm, 09/28/21 12:06:00 EDT, H... Start Date: 10/26/21 Status: Ordered tiZANidine 2 mg oral tablet 1, tablet, By Mouth, 3 times a day, # 60 tablet, Refills 0, Route to Pharmacy Electronically, [id number], 155, cm, 05/03/21 14:39:00 EST, Height, 95.9, kg, 12/05/20 10:08:00 EDT, Dry Weight Start Date: 2/28/22 Status: Ordered traMADol 50 mg oral tablet 1 tablet = 50 mg, By Mouth, Every 8 hours, PRN Pain , Severe, for 7 days, May fill 03/03/22 and weekly on Fridays for 3 weeks, # 21 tablet, 2 Refills, Acute 03/22/22 11:51:00 EST, 03/01/22 11:51:00 EST, Tablet, [facility], [facility]... Start Date: 03/01/22 Stop Date: [...] Personnel Name: Ilya De Leon MD Position: [facility] Primary Care Physician Member Role: PCP Address: Address: [address] [place] [id number]- Care Team Related Persons Name: JD ALVAREZ Address: home [address] [place] [id number]
--- OUTSIDE RECORDS SUMMARY | 2022-11-03 10:38 | XMS_ITS | Continuity of Care Document ---
Author Name Unknown Organization [facility] Address [address] [place] [address]- Care Team Providers Care Rug Sample Beveler Name Role Phone Ilya De Leon MD Primary Care Physician [place] [facility] [place]/03[place] - 06/02/22 [facility]/[address] [address]- [place] Allergies, Adverse Reactions, Alerts Substance Reaction [...] 02/06/10 Garrett rded 1Admin Note: ADMIN BY [facility] 2Admin Note: FLUVIRIN MULTIDOSE ADMINISTERED AT [facility] Medications acetaminophen 650 mg oral tablet, extended release 2 tablet = 1,300 mg, By Mouth, Every 8 hours, # 100 tablet, 1 Refills, Maintenance, 06/29/21 15:10:00 EDT, ER Tablet, [id number], Partial fill upon patient request if the prescription is for a schedule II opioid drug., 155, cm, 05/30/21 15:34:... Start Date: 06/29/21 Status: Ordered capsaicin 0.025% topical cream See Instructions, APPLY TO AFFECTED AREA TWICE A DAY, # 60 Gm, 1 Refills, [facility] [id number], 30, APPLY TO AFFECTED AREA TWICE A DAY, 155, cm, 05/30/21 15:34:00 EDT, Height, 95.9, kg, 12/05/20 10:08:00 EDT, Dry Weight Start Date: 05/31/21 Status: Ordered Cavilon Emollient topical cream 1 application, Topically, 2 times a day, PRN for dry skin, # 454 Gm, 1 Refills, Maintenance, 09/30/19 16:26:00 EDT, Cream, [facility] 3, 1 application Topically 2 times a day,PRN:for dry skin, 158, cm, 08/27/19 13:02:00 EDT, Height, 76, kg... Start Date: 09/30/19 Status: Ordered clonazePAM 0.5 mg oral tablet 1 tablet = 0.5 mg, By Mouth, Daily at bedtime, May fill 05/26/22 and weekly on Fridays for 3 weeks, # 7 tablet, 2 Refills, Maintenance, 05/24/22 10:44:00 EDT, Tablet, [facility], SSIS ARCHITECT reviewed, covering for Dr. De Leon, 155, cm, 01/10... Start Date: 05/24/22 Stop Date: 06/14/22 Status: Ordered clonazePAM 0.5 mg oral tablet 1 tablet = 0.5 mg, By Mouth, Daily at bedtime, May fill 04/14/22 and weekly on Fridays for3 weeks, # 7 tablet, 2 Refills, Maintenance, 04/13/22 10:13:00 EST, Tablet, [facility], PMPreviewed, covering for Dr. De Leon, 155, cm, ... Start Date: 04/13/22 Stop Date: 05/04/22 Status: Ordered coal tar topical 1% lotion See Instructions, applyTopically Daily at bedtime, # 120 mL, 3 Refills, Maintenance, 10/26/21 15:45:00 EDT, [facility], Partial fill upon patient request if the prescription is for a schedule II opioid drug., applyTopically Daily a... Start Date: 10/26/21 Status: Ordered Dovonex 0.005% topical cream 1 applicator, Topically, 2 times a day, # 60 Gm, 5 Refills, Maintenance, 05/24/22 12:41:00 EDT, [facility], 1 applicator Topically 2 times a day,x30 days, 155, cm, 01/23/22 14:00:00 EST, Height, 106.5, kg, 09/14/21 9:38:00 EDT, Dry... Start Date: 05/24/22 Stop Date: 11/20/22 Status: Ordered Eucerin Unscented topical lotion See Instructions, apply as frequently as needed, # 1 each, 0 Refills, Maintenance, 09/28/21 12:23:00 EDT, [facility], Partial fill upon patient request if the prescription is for a schedule II opioid drug., apply as frequently as n... Start Date: 09/28/21 Status: Ordered fluticasone 50 mcg/inh nasal spray 1 sprays, Nares, Both, 2 times a day, in each nostril. for allergies, # 16 Gm, 0 Refills, Maintenance, 04/27/20 14:35:00 EST, [place], [facility] 3, Partial fill upon patient request if theprescription is for a schedule II opioid drug., 1... Start Date: 04/27/20 Stop Date: 05/27/20 Status: Ordered halobetasol 0.05% topical ointment See Instructions, APPLY A THIN FILM TO THE AFFECTED SKIN AND RUB IN GENTLY AND COMPLETELY TWICE A DAY, # 50 Gm, 1 Refills, Maintenance, 10/26/21 15:44:00 EDT, [facility], 30, APPLY A THIN FILM TO THE AFFECTED SKIN AND RUB IN GENTLY... Start Date: 10/26/21 Status: Ordered ketoconazole 2% topical shampoo See Instructions, APPLY 1 APPLICATOR TOPICALLY 3X PER WEEK, # 120 mL, 3 Refills, Maintenance, 05/16/22 8:48:00 EST, [id number], 30, APPLY 1 APPLICATOR TOPICALLY 3X PER WEEK, 155, cm, 01/23/22 14:00:00 EST, Height, 106.5, kg, 09/14/21 9:38:00 EDT,... Start Date: 05/16/22 Status: Ordered loratadine 10 mg oral tablet 1, tablet, By Mouth, Daily, # 90 tablet, Refills 1, Maintenance, 05/23/22 16:24:00 EDT, Route to Pharmacy Electronically, [facility] [id number], 155, cm, 01/23/22 14:00:00 EST, Height, 106.5, kg, 09/14/21 9:38:00 EDT, Dry Weight Start Date: 05/23/22 Status: Ordered Methadone By Mouth, 0 Refills, Maintenance Start Date: 12/25/11 Status: Ordered mupirocin 2% topical cream 1 application, Topically, 3 times a day, # 30 Gm, 2 Refills, Maintenance, 03/08/21 10:26:00 EST, Cream, [facility]/pharmacy #[id number], Partial fill [...] 14 tablet, 2 Refills, 05/24/22 10:44:00 EDT, [facility], 155, cm, 01/23/22 14:00:00 EST, Height, 106.5, kg,09/14/21 9:38:00 EDT, Dry Weight Start Date: 05/24/22 Status: Ordered predniSONE 10 mg oral tablet See Instructions, May fill and weekly on Fridays for 3 weeks, # 14 tablet, 2 Refills, 04/13/22 10:13:00 EST, [facility], 155, cm, 01/23/22 14:00:00 EST, Height, 106.5, kg,09/14/21 9:38:00 EDT, Dry Weight Start Date: 04/13/22 Status: Ordered selenium sulfide 2.5% topical lotion See Instructions, APPLY TOPICALLY TO AFFECTED AREA EVERY DAY FOR 7 DAYS, # 120 mL, 3 Refills, Soft Stop, 10/26/21 15:43:00 EDT, [facility], 7, APPLY TOPICALLY TO AFFECTED AREA EVERY DAY FOR 7 DAYS, 155, cm, 09/28/21 12:06:00 EDT, H... Start Date: 10/26/21 Status: Ordered tiZANidine 2 mg oral tablet 1, tablet, By Mouth, 3 times a day, # 60 tablet, Refills 0, Route to Pharmacy Electronically, [facility] [id number], 155, cm, 05/03/21 14:39:00 EST, Height, 95.9, kg, 12/05/20 10:08:00 EDT, Dry Weight Start Date: 05/09/21 Status: Ordered traMADol 50 mg oral tablet 1 tablet = 50 mg, By Mouth, Every 8 hours, PRN Pain , Severe, for 7 days, May fill 05/26/22 and weekly on Fridays for 3 weeks, # 21 tablet, 2 Refills, Acute 06/14/22 10:43:00 EDT, 05/24/22 10:43:00 EDT, Tablet, [facility], Partial... Start Date: 05/24/22 Stop Date: 06/14/22 Status: Ordered Problem List Condition Confirmation Course [...] Care team information Care Team Personnel Name: Ilay De Leon MD Position: S Primary Care Physician Member Role: PCP Address: Address: [address] [place] [address]- Care Team Related Persons Name: JD ALVAREZ Address: [address] [place] [address]
--- OUTSIDE RECORDS SUMMARY | 2022-11-03 10:38 | XMS_ITS | Continuity of Care Document ---
Author Name Unknown Organization [facility] Address Unknown Care Team Providers Care Lighting Fixtures Decorator Name Role Phone Ilya De Leon MD Primary Care Physician Encounter [facility] [place] Date(s): 10/21/20 - 11/20/20 [facility] Allergies, Adverse Reactions, Alerts Substance Reaction [...] 12/26/20 11:44:00 EDT, 09/24/20 11:43:00 EDT, Tablet, [facility]/pharmacy #[id number], Partial fill u... Start Date: 09/24/20 Stop Date: 12/26/20 Status: Ordered Cavilon Emollient topical cream 1 application, Topically, 2 times a day, PRN for dry skin, # 454 Gm, 1 Refills, Maintenance, 09/30/19 16:26:00 EDT, Cream, [facility] 3, 1 application Topically 2 times a day,PRN:for dry skin, 158, cm, 08/27/19 13:02:00 EDT, Height, 76, kg... Start Date: 09/30/19 Status: Ordered cetirizine 10 mg oral tablet 1 tablet = 10 mg, By Mouth, Daily, for allergies. Do NOT take with claritin, # 30 tablet, 0 Refills, Maintenance, 07/23/20 11:37:00 EDT, Tablet, [facility], Partial fill upon patient request if the prescription is for a schedule II... Start Date: 07/23/20 Stop Date: 08/22/20 Status: Ordered Claritin 10 mg oral tablet 10 mg, 1, tablet, By Mouth, Daily, # 15 tablet, Refills 3, Tot. Refills 3, Maintenance, 11/06/18 8:33:38 EDT, Route to Pharmacy Electronically, [id number], [facility] Start Date: 11/06/18 Status: Ordered clonazePAM 0.5 mg oral tablet 1 tablet = 0.5 mg, By Mouth, Daily, # 1 tablet, 0 Refills, Maintenance, 10/17/20 9:00:00 EDT, Tablet, [facility] 3, Partial fill upon patient request if the prescription is for a scheduleII opioid drug., 158, cm, 09/24/20 10:45:00 EDT, He... Start Date: 10/17/20 Stop Date: 10/18/20 Status: Ordered clonazePAM 0.5 mg oral tablet 1 tablet = 0.5 mg, By Mouth, Daily, # 28 tablet, 0 Refills, Maintenance, 11/18/20 15:29:00 EDT, Tablet, [facility]/pharmacy #[id number], Partial fill upon patient request if the prescription is for a schedule II opioid drug., 158, cm, 10/18/20 10:46:00 EDT, Height... Start Date: 11/18/20 Status: Ordered diphenhydrAMINE 25 mg oral tablet 1 tablet = 25 mg, By Mouth, 3 times a day, PRN as needed for itching, Will cause drowsiness, # 30 tablet, 0 Refills, Maintenance, 07/16/20 15:11:00 EDT, Tablet, [facility], Partial fill upon patient request if the prescription is f... Start Date: 07/16/20 Status: Ordered Dovonex 0.005% topical cream 1 applicator, Topically, 2 times a day, # 60 Gm, 5 Refills, Maintenance, 07/07/19 17:30:00 EDT, [facility] 3, 1 applicator Topically 2 [...] Gm, 0 Refills, Maintenance, 04/27/20 14:35:00 EST, [place], [facility] 3, Partial fill upon patient request if theprescription is for a schedule II opioid drug., 1... Start Date: 04/27/20 Stop Date: 05/27/20 Status: Ordered furosemide 20 mg oral tablet 1, tablet, By Mouth, Daily, # 30 tablet, Refills 3, Tot. Refills 0, Maintenance, 10/21/20 11:22:00 EDT, Route to Pharmacy Electronically, [id number], 158, cm, 10/18/20 10:46:00 EDT, Height, 95.4, kg, 10/16/20 10:11:00 EDT, Dry Weight Start Date: 10/21/20 Status: Ordered hydrocortisone 1% topical cream 1 application, Topically, 2 times a day, Apply to rash areas, # 60 Gm, 3 Refills, Maintenance, 06/04/19 14:52:00 EDT, Cream, [facility], 1 application Topically 2 [...] 12/26/20 11:39:00 EDT, 09/24/20 11:38:00 EDT, Ointment, [facility]/pharmacy #[id number], Partial fill upon [...] Refills, Soft Stop, 07/27/20 11:50:00 EDT, Cream, [facility], 1 applicationTopically Once,Instr:to skin head to feet, remove b... Start Date: 07/27/20 Status: Ordered predniSONE 5 mg oral tablet 1 tablet = 5 mg, By Mouth, 3 times a day, may fill 11/12/20 for 14 days, # 42 tablet, 0 Refills, Maintenance, 11/10/20 8:29:00 EDT, Tablet, [facility]/pharmacy #[id number], Partial fill upon patient request if the prescription is for a schedule II opioid drug., 158,... Start Date: 11/10/20 Stop Date: 11/24/20 Status: Ordered selenium sulfide 2.5% topical lotion See Instructions, APPLY TOPICALLY TO AFFECTED AREA EVERY DAY FOR 7 DAYS, # 120 mL, 3 Refills, Soft Stop, 07/23/20 11:40:00 EDT, [facility], 7, APPLY TOPICALLY TO AFFECTED AREA EVERY DAY FOR 7 DAYS, 158, cm, 07/23/20 11:13:00 EDT, H... Start Date: 07/23/20 Status: Ordered Shingrix intramuscular injection = 0.5 mL, Intramuscular, Once, repeat dose in 2 to 6 months, # 2 each, 0 Refills, Soft Stop, 05/27/20 11:03:00 EDT, Powder, [facility], Partial fill upon patient request if the [...] 1 Refills, Maintenance, 03/10/20 18:21:00 EST, Cream, [facility], Partial fill upon patient request [...] 0 Refills, Maintenance, 09/24/20 11:47:00 EDT, Gel, [facility]/pharmacy #[id number], 1 application Topically 4 times a day,Instr:for knee pain, 158, cm, 09/24/20 10:45:00 EDT, Height, 82, kg, ... Start Date: 09/24/20 Status: Ordered Problem List Condition Effective Dates Status Health Status Inform ant Opioid type dependence, continuous(Confirmed) 1 Active 1Client had been seen by Jazz Francois at [facility]. Client has no-showed to last appt and today.She will be targetted for closing if she does not responde to correspondence that will be sent on 02/14/13 Social History Social History Type Response Smoking Status 5-9 cigarettes (betw een 1/4 to 1/2 pack)/day in last 30 days entered on: 09/08/20 Sex
--- OUTSIDE RECORDS SUMMARY | 2022-11-03 10:38 | XMS_ITS | Continuity of Care Document ---
Author Name Unknown Organization [facility] Address Unknown Care Team Providers Care Java Consultant Name Role Phone Ilya De Leon MD Primary Care Physician [place] [facility] [place] 06/24[place]21 [facility] Allergies, Adverse Reactions, Alerts Substance [...] ADMINISTERED AT [facility] Medications capsaicin 0.025% topical cream See Instructions, APPLY TO AFFECTED AREA TWICE A DAY, # 60 Gm, 1 Refills, [id number], 30, APPLY TO AFFECTED AREA TWICE A DAY, 155, cm, 05/30/21 15:34:00 EDT, Height, 95.9, kg, 12/05/20 10:08:00 EDT, Dry Weight Start Date: 05/31/21 Status: Ordered Cavilon Emollient topical cream 1 application, Topically, 2 times a day, PRN for dry skin, # 454 Gm, 1 Refills, Maintenance, 09/30/19 16:26:00 EDT, Cream, [facility], 1 application Topically 2 times a day,PRN:for dry skin, 158, cm, 08/27/19 13:02:00 EDT, Height, 76, kg... Start Date: 09/30/19 Status: Ordered clonazePAM 0.5 mg oral tablet 1 tablet = 0.5 mg, By Mouth, Daily, mAY FILL 06/21/21, # 14 tablet, 0 Refills, Maintenance, 06/21/2215:00:00 EDT, Tablet, [facility]/pharmacy #[id number], AIRLINE RESERVATION AGENT reviewed, covering for Dr. De Leon, 155, cm, 05/30/2214:34:00 EDT, Height, 95.9, kg, 12/05/20 10:08:00 E... Start Date: 06/20/21 Stop Date: 07/04/21 Status: Ordered Dovonex 0.005% topical cream 1 applicator, Topically, 2 times a day, # 60 Gm, 5 Refills, Maintenance, 07/07/19 17:30:00 EDT, [facility], 1 applicator Topically 2 times a day,x30 days, 158, cm, 12/24/18 10:25:00 EDT, Height, 76, kg, 04/12/19 15:31:00 EST, Dry Weight Start Date: 07/07/19 Stop Date: 01/03/20 Status: Ordered fluticasone 50 mcg/inh nasal spray 1 sprays, Nares, Both, 2 times a day, in each nostril. for allergies, # 16 Gm, 0 Refills, Maintenance, 04/27/20 14:35:00 EST, [place], [facility], Partial fill upon patient request if theprescription is for a schedule II opioid drug., 1... Start Date: 04/27/20 Stop Date: 05/27/20 Status: Ordered furosemide 20 mg oral tablet 1, tablet, By Mouth, Daily, # 30 tablet, Refills 3, Tot. Refills 3, Maintenance, 04/18/21 12:11:00 EST, Route to Pharmacy Electronically, [facility]/pharmacy #[id number], 155, cm, 04/18/21 10:12:00 EST, Height, 95.9, kg, 12/05/20 10:08:00 EDT, Dry Weight Start Date: 04/18/21 Status: Ordered halobetasol 0.05% topical ointment See Instructions, APPLY A THIN FILM TO THE AFFECTED SKIN AND RUB IN GENTLY AND COMPLETELY TWICE A DAY, # 50 Gm, 1 Refills, [facility] ST[id number], 30, APPLY A THIN FILM TO THE AFFECTED SKIN AND RUB IN GENTLY AND COMPLETELY TWICE A DAY, 155, cm, 12/05/20 10:0... Start Date: 03/15/21 Status: Ordered hydrocortisone 1% topical cream 1 application, Topically, 2 times a day, # 30 Gm, 0 Refills, Maintenance, 06/17/21 11:42:00 EDT, Cream, [facility], Partial fill upon patient request if the prescription is for a schedule II opioid drug., 1 application Topically 2 times... Start Date: 06/17/21 Status: Ordered ketoconazole 2% topical shampoo See Instructions, APPLY 1 APPLICATOR TOPICALLY 3X PER WEEK, # 120 mL, 3 Refills, [id number], 30, APPLY 1 APPLICATOR TOPICALLY 3X PER WEEK, 155, cm, 03/17/21 7:53:00 EST, Height, 95.9, kg, 12/05/20 10:08:00 EDT, Dry Weight Start Date: 03/21/21 Status: Ordered loratadine 10 mg oral tablet 1, tablet, By Mouth, Daily, # 15 tablet, Refills 3, Route to Pharmacy Electronically, [id number], 155, cm, 05/30/21 15:34:00 EDT, Height, 95.9, [...] Refills, Soft Stop, 07/27/20 11:50:00 EDT, Cream, [facility], 1 applicationTopically Once,Instr:to skin head to feet, remove b... Start Date: 07/27/20 Status: Ordered predniSONE 10 mg oral tablet 1 tablet, By Mouth, Daily, for 7 days, May fill on 06/28 and will be sent to [facility], # 7 tablet, 0 Refills, Physician Stop 06/29/21 14:14:00 EDT, 06/22/21 14:14:00 EDT, [facility], 155, cm, 05/30/21 15:34:00 EDT, Height, 95... Start Date: 06/22/21 Stop Date: 06/29/21 Status: Ordered selenium sulfide 2.5% topical lotion See Instructions, APPLY TOPICALLY TO AFFECTED AREA EVERY DAY FOR 7 DAYS, # 120 mL, 3 Refills, Soft Stop, 04/26/21 18:07:00 EST, [facility]/pharmacy #[id number], 7, APPLY TOPICALLY TO AFFECTED AREA EVERY DAY FOR 7DAYS, 155, cm, 04/18/21 10:12:00 EST, Height, 95.9,... Start Date: 04/26/21 Status: Ordered tiZANidine 2 mg oral tablet 1, tablet, By Mouth, 3 times a day, # 60 tablet, Refills 0, Route to Pharmacy Electronically, [facility] [id number], 155, cm, 05/03/21 14:39:00 EST, Height, 95.9, kg, 12/05/20 10:08:00 EDT, Dry Weight Start Date: 05/09/21 Status: Ordered Problem List Condition Effective Dates Status Health Status Inform ant Anxiety(Confirmed) Active Opioid type dependence, continuous(Confirmed) 1 Active Osteoarthritis of left knee(Confirmed) Active Psoriasis(Confirmed) Active Severe obesity(Confirmed) Active 1Client had been seen by Jazz Francois at [facility]. Client has no-showed to last appt and today.She will be targetted for closing if she does not responde to correspondence that will be sent on 02/14/13 Social History Social History Type Response Smoking Status 10 or more cigarette s (1/2 pack or more)/day in last 30 days entered on: 04/18/21 Sex
--- OUTSIDE RECORDS SUMMARY | 2022-11-03 10:38 | XMS_ITS | Continuity of Care Document ---
Author Name Unknown Organization [facility] Address [address] [place] [address]- Care Team Providers Care Beater Worker Helper Name Role Phone Ilya De Leon MD Primary Care Physician En[place] [facility] [place] Date(s): 03/01/22 - 03/31/22 [facility]/[address] [address]- [place] Allergies, Adverse Reactions, Alerts Substance Reaction [...] ADMINISTERED AT [facility] Medications acetaminophen 650 mg oral tablet, extended release 2 tablet = 1,300 mg, By Mouth, Every 8 hours, # 100 tablet, 1 Refills, Maintenance, 06/29/21 15:10:00 EDT, ER Tablet, [facility]/pharmacy #[id number], Partial fill upon patient request if the prescription is for a schedule II opioid drug., 155, cm, 05/30/21 15:34:... Start Date: 06/29/21 Status: Ordered capsaicin 0.025% topical cream See Instructions, APPLY TO AFFECTED AREA TWICE A DAY, # 60 Gm, 1 Refills, [id number], 30, APPLY TO AFFECTED AREA TWICE A DAY, 155, cm, 05/30/21 15:34:00 EDT, Height, 95.9, kg, 12/05/20 10:08:00 EDT, Dry Weight Start Date: 05/31/21 Status: Ordered Cavilon Emollient topical cream 1 application, Topically, 2 times a day, PRN for dry skin, # 454 Gm, 1 Refills, Maintenance, 09/30/19 16:26:00 EDT, Cream, [facility], 1 application Topically 2 times a day,PRN:for dry skin, 158, cm, 08/27/19 13:02:00 EDT, Height, 76, kg... Start Date: 09/30/19 Status: Ordered clonazePAM 0.5 mg oral tablet 1 tablet = 0.5 mg, By Mouth, Daily at bedtime, May fill 03/24/22 and weekly on Fridays for3 weeks, #7 tablet, 2 Refills, Maintenance, 03/22/22 12:52:00 EST, Tablet, [facility], DOCUMENT SPECIALIST reviewed, covering for Dr. De Leon, 155, cm, 01/23... Start Date: 03/22/22 Stop Date: 04/12/22 Status: Ordered coal tar topical 1% lotion See Instructions, applyTopically Daily at bedtime, # 120 mL, 3 Refills, Maintenance, 10/26/21 15:45:00 EDT, [facility], Partial fill upon patient request if the prescription is for a schedule II opioid drug., applyTopically Daily a... Start Date: 10/26/21 Status: Ordered Dovonex 0.005% topical cream 1 applicator, Topically, 2 times a day, # 60 Gm, 5 Refills, Maintenance, 07/07/19 17:30:00 EDT, [facility], 1 applicator Topically 2 times a day,x30 days, 158, cm, 12/24/18 10:25:00 EDT, Height, 76, kg, 04/12/19 15:31:00 EST, Dry Weight Start Date: 07/07/19 Stop Date: 01/03/20 Status: Ordered Eucerin Unscented topical lotion See Instructions, apply as frequently as needed, # 1 each, 0 Refills, Maintenance, 09/28/21 12:23:00 EDT, [facility], Partial fill upon patient request if the prescription is for a schedule II opioid drug., apply as frequently as n... Start Date: 09/28/21 Status: Ordered fluticasone 50 mcg/inh nasal spray 1 sprays, Nares, Both, 2 times a day, in each nostril. for allergies, # 16 Gm, 0 Refills, Maintenance, 04/27/20 14:35:00 EST, [place], [facility] 3, Partial fill upon patient request if theprescription is for a schedule II opioid drug., 1... Start Date: 04/27/20 Stop Date: 05/27/20 Status: Ordered halobetasol 0.05% topical ointment See Instructions, APPLY A THIN FILM TO THE AFFECTED SKIN AND RUB IN GENTLY AND COMPLETELY TWICE A DAY, # 50 Gm, 1 Refills, Maintenance, 10/26/21 15:44:00 EDT, [facility], 30, APPLY A THIN FILM TO THE AFFECTED SKIN AND RUB IN GENTLY... Start Date: 10/26/21 Status: Ordered ketoconazole 2% topical shampoo See Instructions, APPLY 1 APPLICATOR TOPICALLY 3X PER WEEK, # 120 mL, 3 Refills, Maintenance, 12/27/21 19:30:00 EDT, [id number], 30, APPLY 1 APPLICATOR TOPICALLY 3X PER WEEK, 155, cm, 12/12/21 16:00:00 EDT, Height, 106.5, kg, 09/14/21 9:38:00 EDT... Start Date: 12/27/21 Status: Ordered loratadine 10 mg oral tablet 1, tablet, By Mouth, Daily, # 90 tablet, Refills 1, Tot. Refills 1, Maintenance, 11/01/21 15:19:00 EDT, Route to Pharmacy Electronically, [facility]/pharmacy #[id number], 155, cm, 09/28/21 12:06:00 EDT, Height, 106.5, kg, 09/14/21 9:38:00 EDT, Dry Weight Start Date: 11/01/21 Status: Ordered Methadone By Mouth, 0 Refills, Maintenance Start Date: 12/25/11 Status: Ordered mupirocin 2% topical cream 1 application, Topically, 3 times a day, # 30 Gm, 2 Refills, Maintenance, 03/08/21 10:26:00 EST, Cream, [facility]/pharmacy #[id number], Partial fill [...] Soft Stop, 07/27/20 11:50:00 EDT, Cream, [facility], 1 applicationTopically Once,Instr:to skin head to feet, remove b... Start Date: 07/27/20 Status: Ordered predniSONE 10 mg oral tablet See Instructions, May fill 03/24/22 and weekly on Fridays for 3 weeks, # 14 tablet, 2 Refills, 03/22/22 12:52:00 EST, [facility], 155, cm, 01/23/22 14:00:00 EST, Height, 106.5, kg,09/14/21 9:38:00 EDT, Dry Weight Start Date: 03/22/22 Status: Ordered selenium sulfide 2.5% topical lotion See Instructions, APPLY TOPICALLY TO AFFECTED AREA EVERY DAY FOR 7 DAYS, # 120 mL, 3 Refills, Soft Stop, 10/26/21 15:43:00 EDT, [facility], 7, APPLY TOPICALLY TO AFFECTED AREA EVERY DAY FOR 7 DAYS, 155, cm, 09/28/21 12:06:00 EDT, H... Start Date: 10/26/21 Status: Ordered tiZANidine 2 mg oral tablet 1, tablet, By Mouth, 3 times a day, # 60 tablet, Refills 0, Route to Pharmacy Electronically, [facility] [id number], 155, cm, 05/03/21 14:39:00 EST, Height, 95.9, kg, 12/05/20 10:08:00 EDT, Dry Weight Start Date: 05/09/21 Status: Ordered traMADol 50 mg oral tablet 1 tablet = 50 mg, By Mouth, Every 8 hours, PRN Pain , Severe, for 7 days, May fill 03/24/22 and weekly on Fridays for3 weeks, # 21 tablet, 2 Refills, Acute 04/12/22 12:50:00 EST, 03/22/22 12:50:00 EST, Tablet, [facility], Partial f... Start Date: 03/22/22 Stop Date: 04/12/22 Status: Ordered Problem List Condition Confirmation Course [...] Personnel Name: Ilya De Leon MD Position: [facility] Primary Care Physician Member Role: PCP Address: Address: [address] [place] [id number]- Care Team Related Persons Name: JD ALVAREZ Address: home [address] [place] [id number]
--- OUTSIDE RECORDS SUMMARY | 2022-11-03 10:38 | XMS_ITS | Continuity of Care Document ---
Author Name Unknown Organization [facility] Address Unknown Care Team Providers Care Assembler Insulator Name Role Phone Ilya De Leon MD Primary Care Physician [place] [facility] [place] 07/14/21 - 08/13/21 [facility] Allergies, Adverse Reactions, Alerts Substance [...] MULTIDOSE ADMINISTERED AT [facility] Medications acetaminophen 650 mg oral tablet, extended release 2 tablet = 1,300 mg, By Mouth, Every 8 hours, # 100 tablet, 1 Refills, Maintenance, 06/29/21 15:10:00 EDT, ER Tablet, [facility]/pharmacy #[id number], Partial fill upon patient request if the prescription is for a schedule II opioid drug., 155, cm, 05/30/21 15:34:... Start Date: 06/29/21 Status: Ordered capsaicin 0.025% topical cream See Instructions, APPLY TO AFFECTED AREA TWICE A DAY, # 60 Gm, 1 Refills, [facility] STORE [id number], 30, APPLY TO AFFECTED AREA TWICE A DAY, 155, cm, 05/30/21 15:34:00 EDT, Height, 95.9, kg, 12/05/20 10:08:00 EDT, Dry Weight Start Date: 05/31/21 Status: Ordered Cavilon Emollient topical cream 1 application, Topically, 2 times a day, PRN for dry skin, # 454 Gm, 1 Refills, Maintenance, 09/30/19 16:26:00 EDT, Cream, [facility] 3, 1 application Topically 2 times a day,PRN:for dry skin, 158, cm, 08/27/19 13:02:00 EDT, Height, 76, kg... Start Date: 09/30/19 Status: Ordered clonazePAM 0.5 mg oral tablet 1 tablet = 0.5 mg, By Mouth, Daily, May fill 08/12/21, # 14 tablet, 0 Refills, Maintenance, 08/11/21 10:18:00 EDT, Tablet, [facility], COAL GETTER reviewed, covering for Dr. De Leon, 155, cm, 05/30/21 15:34:00 EDT, Height, 95.9, kg, 12/05/20... Start Date: 08/11/21 Stop Date: 08/25/21 Status: Ordered Dovonex 0.005% topical cream 1 applicator, Topically, 2 times a day, # 60 Gm, 5 Refills, Maintenance, 07/07/19 17:30:00 EDT, [facility], 1 applicator Topically 2 times a day,x30 days, 158, cm, 12/24/18 10:25:00 EDT, Height, 76, kg, 04/12/19 15:31:00 EST, Dry Weight Start Date: 07/07/19 Stop Date: 01/03/20 Status: Ordered fluticasone 50 mcg/inh nasal spray 1 sprays, Nares, Both, 2 times a day, in each nostril. for allergies, # 16 Gm, 0 Refills, Maintenance, 04/27/20 14:35:00 EST, [place], [facility] 3, Partial fill upon patient request if theprescription is for a schedule II opioid drug., 1... Start Date: 04/27/20 Stop Date: 05/27/20 Status: Ordered furosemide 20 mg oral tablet 1, tablet, By Mouth, Daily, # 30 tablet, Refills 3, Tot. Refills 3, Maintenance, 04/18/21 12:11:00 EST, Route to Pharmacy Electronically, [facility]/pharmacy #[id number], 155, cm, 04/18/21 10:12:00 EST, Height, 95.9, kg, 12/05/20 10:08:00 EDT, Dry Weight Start Date: 04/18/21 Status: Ordered halobetasol 0.05% topical ointment See Instructions, APPLY A THIN FILM TO THE AFFECTED SKIN AND RUB IN GENTLY AND COMPLETELY TWICE A DAY, # 50 Gm, 1 Refills, [facility] STORE [id number], 30, APPLY A THIN FILM TO THE AFFECTED SKIN AND RUB IN GENTLY AND COMPLETELY TWICE A DAY, 155, cm, 12/05/20 10:0... Start Date: 03/15/21 Status: Ordered hydrocortisone 1% topical cream 1 application, Topically, 2 times a day, # 30 Gm, 0 Refills, Maintenance, 06/17/21 11:42:00 EDT, Cream, [facility], Partial fill upon patient request if the prescription is for a schedule II opioid drug., 1 application Topically 2 times... Start Date: 06/17/21 Status: Ordered ketoconazole 2% topical shampoo See Instructions, APPLY 1 APPLICATOR TOPICALLY 3X PER WEEK, # 120 mL, 3 Refills, [facility] STORE [id number], 30, APPLY 1 APPLICATOR TOPICALLY 3X PER WEEK, 155, cm, 05/30/21 15:34:00 EDT, Height, 95.9, kg, 12/05/20 10:08:00 EDT, Dry Weight Start Date: 08/02/21 Status: Ordered loratadine 10 mg oral tablet 1, tablet, By Mouth, Daily, # 15 tablet, Refills 3, Route to Pharmacy Electronically, [id number], 155, cm, 05/30/21 15:34:00 EDT, Height, 95.9, kg, 12/05/20 10:08:00 EDT, Dry Weight Start Date: 06/21/21 Status: Ordered Methadone By Mouth, 0 Refills, Maintenance Start Date: 12/25/11 Status: Ordered mupirocin 2% topical cream 1 application, Topically, 3 times a day, # 30 Gm, 2 Refills, Maintenance, 03/08/21 10:26:00 EST, Cream, [facility]/pharmacy #[id number], Partial fill upon patient request if the prescription is for a schedule II opioid drug., 1 application Topically 3 times a day,... Start Date: 03/08/21 Status: Ordered permethrin 5% topical cream 1 application, Topically, Once, to skin head to feet, remove by washing after 8 to 14 hours, # 60 Gm, 0 Refills, Soft Stop, 07/27/20 11:50:00 EDT, Cream, [facility], 1 applicationTopically Once,Instr:to skin head to feet, remove b... Start Date: 07/27/20 Status: Ordered predniSONE 10 mg oral tablet 1 tablet = 10 mg, By Mouth, Daily, bridge rx, # 3 tablet, 0 Refills, Maintenance, 08/09/21 19:37:00EDT, [facility]/pharmacy #[id number], Partial fill upon patient request if the prescription is for a schedule IIopioid drug., 155, cm, 05/30/21 15:34:00 EDT, [place]... Start Date: 08/09/21 Stop Date: 08/12/21 Status: Ordered predniSONE 10 mg oral tablet 1 tablet, By Mouth, Daily, for 14 days, May fill 08/12, # 14 tablet, 0 Refills, Physician Stop 08/25/21 10:16:00 EDT, 08/11/21 10:16:00 EDT, [facility], 155, cm, 05/30/21 15:34:00 EDT, Height, 95.9, kg, 12/05/20 10:08:00 EDT, Dry Weight Start Date: 08/11/21 Stop Date: 08/25/21 Status: Ordered selenium sulfide 2.5% topical lotion See Instructions, APPLY TOPICALLY TO AFFECTED AREA EVERY DAY FOR 7 DAYS, # 120 mL, 3 Refills, Soft Stop, 04/26/21 18:07:00 EST, [facility]/pharmacy #[id number], 7, APPLY TOPICALLY TO AFFECTED AREA EVERY DAY FOR 7DAYS, 155, cm, 04/18/21 10:12:00 EST, Height, 95.9,... Start Date: 04/26/21 Status: Ordered tiZANidine 2 mg oral tablet 1, tablet, By Mouth, 3 times a day, # 60 tablet, Refills 0, Route to Pharmacy Electronically, [id number], 155, cm, 05/03/21 14:39:00 EST, Height, 95.9, [...]
--- OUTSIDE RECORDS SUMMARY | 2022-11-03 10:38 | XMS_ITS | Continuity of Care Document ---
Author Name Unknown Organization [facility] Address Unknown Care Team Providers Care Marketing Administrative Assistant Name Role Phone Ilya De Leon MD Primary Care Physician [place] [facility] [place]21 [facility] Allergies, Adverse Reactions, Alerts Substance [...] Refills, Maintenance, 06/29/21 15:10:00 EDT, ER Tablet, [facility]/pharmacy #[id number], Partial fill upon patient request if the prescription is for a schedule II opioid drug., 155, cm, 05/30/21 15:34:... Start Date: 06/29/21 Status: Ordered capsaicin 0.025% topical cream See Instructions, APPLY TO AFFECTED AREA TWICE A DAY, # 60 Gm, 1 Refills, [facility] STORE [id number], 30, APPLY TO AFFECTED AREA TWICE A DAY, 155, cm, 03/21/22 15:34:00 EDT, Height, 95.9, kg, 12/05/20 10:08:00 EDT, Dry Weight Start Date: 05/31/21 Status: Ordered Cavilon Emollient topical cream 1 application, Topically, 2 times a day, PRN for dry skin, # 454 Gm, 1 Refills, Maintenance, 09/30/19 16:26:00 EDT, Cream, [facility] 3, 1 application Topically 2 times a day,PRN:for dry skin, 158, cm, 08/27/19 13:02:00 EDT, Height, 76, kg... Start Date: 09/30/19 Status: Ordered clonazePAM 0.5 mg oral tablet 1 tablet = 0.5 mg, By Mouth, Daily at bedtime, July09/30/21, # 7 tablet, 0 Refills, Maintenance, 09/28/21 13:15:00 EDT, Tablet, [facility], TOBACCO BALER reviewed, covering for Dr. De Leon, 155, cm, 09/28/21 12:06:00 EDT, Height, 106.5,... Start Date: 09/28/21 Stop Date: 10/05/21 Status: Ordered clonazePAM 0.5 mg oral tablet 1 tablet = 0.5 mg, By Mouth, Daily at bedtime, July09/22/21, # 7 tablet, 0 Refills, Maintenance, 09/21/21 7:19:00 EDT, Tablet, [facility], TOBACCO BALER reviewed, covering for Dr. De Leon, 155, cm, 09/15/21 10:14:00 EDT, Height, 106.5,... Start Date: 09/21/21 Stop Date: 09/28/21 Status: Ordered coal tar topical 2% foam 1 application, Topically, 4 times a day, # 100 Gm, 1 Refills, Maintenance, 09/28/21 12:24:00 EDT, Foam, [facility], Partial fill upon patient request if the prescription is for a schedule II opioid drug., 1 application Topically 4... Start Date: 09/28/21 Status: Ordered Dovonex 0.005% topical cream 1 applicator, Topically, 2 times a day, # 60 Gm, 5 Refills, Maintenance, 07/07/19 17:30:00 EDT, [facility] 3, 1 applicator Topically 2 times a day,x30 days, 158, cm, 12/24/18 10:25:00 EDT, Height, 76, kg, 04/12/19 15:31:00 EST, Dry Weight Start Date: 07/07/19 Stop Date: 01/03/20 Status: Ordered Eucerin Unscented topical lotion See Instructions, apply as frequently as needed, # 1 each, 0 Refills, Maintenance, 09/28/21 12:23:00 EDT, [facility], Partial fill upon patient request if the prescription is for a schedule II opioid drug., apply as frequently as n... Start Date: 09/28/21 Status: Ordered fluticasone 50 mcg/inh nasal spray 1 sprays, Nares, Both, 2 times a day, in each nostril. for allergies, # 16 Gm, 0 Refills, Maintenance, 04/27/20 14:35:00 EST, [place], [facility] 3, Partial fill upon patient request if theprescription is for a schedule II opioid drug., 1... Start Date: 04/27/20 Stop Date: 05/27/20 Status: Ordered halobetasol 0.05% topical ointment See Instructions, APPLY A THIN FILM TO THE AFFECTED SKIN AND RUB IN GENTLY AND COMPLETELY TWICE A DAY, # 50 Gm, 1 Refills, [facility] [id number], 30, APPLY A THIN FILM TO THE AFFECTED SKIN AND RUB IN GENTLY AND COMPLETELY TWICE A DAY, 155, cm, 12/05/20 10:0... Start Date: 03/15/21 Status: Ordered hydrocortisone 1% topical cream 1 application, Topically, 2 times a day, # 30 Gm, 0 Refills, Maintenance, 06/17/21 11:42:00 EDT, Cream, [facility] 3, Partial fill upon patient request if the prescription is for a schedule II opioid drug., 1 application Topically 2 times... Start Date: 06/17/21 Status: Ordered hydrOXYzine hydrochloride 25 mg oral tablet 1 capsule, By Mouth, 3 times a day, PRN for itching, for 30 days, # 90 capsule, 1 Refills, Acute 10/23/21 14:41:00 EDT, 08/24/21 14:41:00 EDT, Capsule, [facility], Partial fill upon patient request if the prescription is for a sche... Start Date: 08/24/21 Stop Date: 10/23/21 Status: Ordered ketoconazole 2% topical shampoo See Instructions, APPLY 1 APPLICATOR TOPICALLY 3X PER WEEK, # 120 mL, 3 Refills, [facility] STORE [id number], 30, APPLY 1 APPLICATOR TOPICALLY 3X PER WEEK, 155, cm, 05/30/21 15:34:00 EDT, Height, 95.9, kg, 12/05/20 10:08:00 EDT, Dry Weight Start Date: 08/02/21 Status: Ordered loratadine 10 mg oral tablet 1, tablet, By Mouth, Daily, # 15 tablet, Refills 5, Tot. Refills 5, Maintenance, 08/19/21 9:15:00 EDT, [id number], 155, cm, 05/30/21 15:34:00 EDT, Height, 95.9, kg, 12/05/20 10:08:00 EDT, Dry Weight Start Date: 08/19/21 Status: Ordered Methadone By Mouth, 0 Refills, Maintenance Start Date: 12/25/11 Status: Ordered mupirocin 2% topical cream 1 application, Topically, 3 times a day, # 30 Gm, 2 Refills, Maintenance, 03/08/21 10:26:00 EST, Cream, [facility]/pharmacy #[id number], Partial fill upon patient request if the prescription is for a schedule II opioid drug., 1 application Topically 3 times a day,... Start Date: 03/08/21 Status: Ordered permethrin 5% topical cream 1 application, Topically, Once, to skin head to feet, remove by washing after 8 to 14 hours, # 60 Gm, 0 Refills, Soft Stop, 07/27/20 11:50:00 EDT, Cream, [facility], 1 applicationTopically Once,Instr:to skin head to feet, remove b... Start Date: 07/27/20 Status: Ordered predniSONE 10 mg oral tablet See Instructions, MADDY 1 TABLETA POR LA BOCA CADA ANDREW POR 7 RAY, # 7 tablet, 0 Refills, [facility], 155, cm, 08/24/21 14:47:00 EDT, Height, 95.9, kg, 12/05/20 10:08:00 EDT, Dry Weight Start Date: 09/08/21 Status: Ordered predniSONE 10 mg oral tablet See Instructions, 1 tablet BID for 7 days (increased dose) for 09/30, # 14 tablet, 0 Refills, 09/28/21 13:15:00 EDT, [facility], 155, cm, 09/28/21 12:06:00 EDT, Height, 106.5, kg, 09/14/21 9:38:00 EDT, Dry Weight Start Date: 09/28/21 Status: Ordered selenium sulfide 2.5% topical lotion See Instructions, APPLY TOPICALLY TO AFFECTED AREA EVERY DAY FOR 7 DAYS, # 120 mL, 3 Refills, Soft Stop, 09/28/21 12:25:00 EDT, [facility], 7, APPLY TOPICALLY TO AFFECTED AREA EVERY DAY FOR 7 DAYS, 155, cm, 09/28/21 12:06:00 EDT, H... Start Date: 09/28/21 Status: Ordered tiZANidine 2 mg oral tablet 1, tablet, By Mouth, 3 times a day, # 60 tablet, Refills 0, Route to Pharmacy Electronically, [id number], 155, cm, 05/03/21 14:39:00 EST, Height, 95.9, kg, 12/05/20 10:08:00 EDT, Dry Weight Start Date: 05/09/21 Status: Ordered traMADol 50 mg oral tablet 1 tablet = 50 mg, By Mouth, Every 8 hours, PRN Pain , Severe, for 7 days, for 09/30/21, # 21 tablet,0 Refills, Acute 10/05/21 13:15:00 EDT, 09/28/21 13:15:00 EDT, Tablet, [facility], Partial fill upon patient request if the prescri... Start Date: 09/28/21 Stop Date: 10/05/21 Status: Ordered Problem List Condition Effective Dates Status Health Status Inform ant Anxiety(Confirmed) Active Opioid type dependence, continuous(Confirmed) 1 Active Osteoarthritis of left knee(Confirmed) Active Psoriasis(Confirmed) Active Severe obesity(Confirmed) Active 1Client had been seen by Jazz Francois at [facility]. Client has no-showed to last appt and today.She will be targetted for closing if she does not responde to correspondence that will be sent on 02/14/13 Social History Social History Type Response Smoking Status 10 or more cigarette s (1/2 pack or more)/day in last 30 days entered on: 04/18/21 Sex
--- OUTSIDE RECORDS SUMMARY | 2022-11-03 10:38 | XMS_ITS | Continuity of Care Document ---
Author Name Unknown Organization [facility] Address [address] [place] [id number]- Care Team Providers Care Jewelry Sales Associate Name Role Phone Haley NEWMAN, Ilya Primary Care Physician Encounter [facility] Date(s): 08/18/20 - 09/17/20 [facility]/[address] [address]- Allergies, Adverse Reactions, Alerts Substance Reaction Severity [...] 1 Refills, Maintenance, 09/30/19 16:26:00 EDT, Cream, [facility], 1 application Topically 2 times a day,PRN:for dry skin, 158, cm, 08/27/19 13:02:00 EDT, Height, 76, kg... Start Date: 09/30/19 Status: Ordered cetirizine 10 mg oral tablet 1 tablet = 10 mg, By Mouth, Daily, for allergies. Do NOT take with claritin, # 30 tablet, 0 Refills, Maintenance, 07/23/20 11:37:00 EDT, Tablet, [facility], Partial fill upon patient request if the prescription is for a schedule II... Start Date: 07/23/20 Stop Date: 08/22/20 Status: Ordered Claritin 10 mg oral tablet 10 mg, 1, tablet, By Mouth, Daily, # 15 tablet, Refills 3, Tot. Refills 3, Maintenance, 11/06/18 8:33:38 EDT, Route to Pharmacy Electronically, [id number], [facility] Start Date: 11/06/18 Status: Ordered clonazePAM 0.5 mg oral tablet 1 tablet = 0.5 mg, By Mouth, Daily, # 28 tablet, 0 Refills, Maintenance, 08/26/20 14:39:00 EDT, Tablet, [facility], Partial fill upon patient request if the prescription is for a schedule II opioid drug., 158, cm, 08/26/20 14:27:00... Start Date: 08/26/20 Status: Ordered diphenhydrAMINE 25 mg oral tablet 1 tablet = 25 mg, By Mouth, 3 times a day, PRN as needed for itching, Will cause drowsiness, # 30 tablet, 0 Refills, Maintenance, 07/16/20 15:11:00 EDT, Tablet, [facility], Partial fill upon patient request if the prescription is f... Start Date: 07/16/20 Status: Ordered Dovonex 0.005% topical cream 1 applicator, Topically, 2 times a day, # 60 Gm, 5 Refills, Maintenance, 07/07/19 17:30:00 EDT, [facility] 3, 1 applicator Topically 2 [...] Gm, 0 Refills, Maintenance, 04/27/20 14:35:00 EST, [place], [facility] 3, Partial fill upon patient request if theprescription is for a schedule II opioid drug., 1... Start Date: 04/27/20 Stop Date: 05/27/20 Status: Ordered furosemide 20 mg oral tablet 20 mg, 1, tablet, By Mouth, Daily, # 30 tablet, Refills 1, Tot. Refills 1, Maintenance, 08/27/20 16:12:00 EDT, Route to Pharmacy Electronically, [facility]/pharmacy #[id number], Partial fill upon patient request if the prescription is for a schedule II opioid drug... Start Date: 08/27/20 Status: Ordered halobetasol 0.05% topical cream 1 application, Topically, 2 times a day, # 50 Gm, 3 Refills, Maintenance, 08/02/20 12:54:00 EDT, Cream, [facility], Partial fill upon patient request if the prescription is for a schedule II opioid drug., 1 application Topically 2... Start Date: 08/02/20 Status: Ordered hydrocortisone 1% topical cream 1 application, Topically, 2 times a day, Apply to rash areas, # 60 Gm, 3 Refills, Maintenance, 06/04/19 14:52:00 EDT, Cream, [facility] 3, 1 [...] 2 Refills, Maintenance, 09/14/20 17:22:00 EDT, Cream, [facility]/pharmacy #[id number], Partial fill upon patient request if the prescription is for a schedule II opioid drug., 1 application Topically 3 times a day,... Start Date: 09/14/20 Status: Ordered Nizoral 2% topical shampoo See Instructions, 1 applicator Topically 3x per week, # 120 mL, 3 Refills, Soft Stop, 08/12/20 10:30:00 EDT, [facility]/pharmacy #[id number], 1 applicator Topically 3x per week, 158, cm, 07/23/20 11:13:00 EDT, Height, 82, kg, 07/21/20 20:18:00 EDT, Dry Weight Start Date: 08/12/20 Status: Ordered permethrin 5% topical cream 1 application, Topically, Once, to skin head to feet, remove by washing after 8 to 14 hours, # 60 Gm, 0 Refills, Soft Stop, 07/27/20 11:50:00 EDT, Cream, [facility], 1 applicationTopically Once,Instr:to skin head to feet, remove b... Start Date: 07/27/20 Status: Ordered predniSONE 5 mg oral tablet 1 tablet = 5 mg, By Mouth, 3 times a day, # 30 tablet, 0 Refills, Maintenance, 09/14/20 17:20:00 EDT, Tablet, [facility]/pharmacy #[id number], Partial fill upon patient request if the prescription is for a schedule II opioid drug., 158, cm, 09/08/20 14:36:00 EDT,... Start Date: 09/14/20 Stop Date: 09/24/20 Status: Ordered selenium sulfide 2.5% topical lotion See Instructions, APPLY TOPICALLY TO AFFECTED AREA EVERY DAY FOR 7 DAYS, # 120 mL, 3 Refills, Soft Stop, 07/23/20 11:40:00 EDT, [facility], 7, APPLY TOPICALLY TO AFFECTED AREA EVERY DAY FOR 7 DAYS, 158, cm, 07/23/20 11:13:00 EDT, H... Start Date: 07/23/20 Status: Ordered Shingrix intramuscular injection = 0.5 mL, Intramuscular, Once, repeat dose in 2 to 6 months, # 2 each, 0 Refills, Soft Stop, 05/27/20 11:03:00 EDT, Powder, [facility], Partial fill upon patient request if [...] 1 Refills, Maintenance, 03/10/20 18:21:00 EST, Cream, [facility] 3, Partial fill upon patient [...] 0 Refills, Maintenance, 07/23/20 11:37:00 EDT, Gel, [facility], 1 application Topically 4 times a [...]
--- OUTSIDE RECORDS SUMMARY | 2022-11-03 10:38 | XMS_ITS | Continuity of Care Document ---
Author Name Unknown Organization [facility] Address [address] [place] [address]- Care Team Providers Care Interventional Radiology Rn Name Role Phone Haley NEWMAN, Ilya Primary Care Physician [place] [facility] [place](s): 12/03/20 - 12/10/20 [facility] [address] [place] [address]- Encounter Diagnosis Nasal congestion(Discharge Diagnosis) - 12/03/20 Otalgia(Discharge Diagnosis) - 12/03/20 Attending Physician: Renuka Mg MD Referring Physician: Ilya De Leon MD [...] MULTIDOSE ADMINISTERED AT [facility] Medications acetaminophen 500 mg oral tablet 2 tablet = 1,000 mg, By Mouth, 3 times a day, PRN as needed for pain, for 14 days, # 50 tablet, 0 Refills, Acute 12/17/20 13:46:00 EDT, 12/03/20 13:46:00 EDT, Tablet, [id number], Partial fillupon patient request if the prescription is for a s... Start Date: 12/03/20 Stop Date: 12/17/20 Status: Ordered Cavilon Emollient topical cream 1 application, Topically, 2 times a day, PRN for dry skin, # 454 Gm, 1 Refills, Maintenance, 09/30/19 16:26:00 EDT, Cream, [facility], 1 application Topically 2 times a day,PRN:for dry skin, 158, cm, 08/27/19 13:02:00 EDT, Height, 76, kg... Start Date: 09/30/19 Status: Ordered cetirizine 10 mg oral tablet 1 tablet = 10 mg, By Mouth, Daily, # 30 tablet, 0 Refills, Maintenance, 12/03/20 13:44:00 EDT, [id number], Partial fill upon patient request if the prescription is for a schedule II opioid drug., 158, cm, 12/03/20 13:27:00 EDT, Height,... Start Date: 12/03/20 Status: Ordered Claritin 10 mg oral tablet 10 mg, 1, tablet, By Mouth, Daily, # 15 tablet, Refills 3, Tot. Refills 3, Maintenance, 11/06/18 8:33:38 EDT, Route to Pharmacy Electronically, [id number], [facility] Start Date: 11/06/18 Status: Ordered clonazePAM 0.5 mg oral tablet 1 tablet = 0.5 mg, By Mouth, Daily, # 1 tablet, 0 Refills, Maintenance, 10/17/20 9:00:00 EDT, Tablet, [facility], Partial fill upon patient request if the prescription is for a scheduleII opioid drug., 158, cm, 09/24/20 10:45:00 EDT, He... Start Date: 10/17/20 Stop Date: 10/18/20 Status: Ordered clonazePAM 0.5 mg oral tablet 1 tablet = 0.5 mg, By Mouth, Daily, Early refill for lost medication, # 10 tablet, 0 Refills, Maintenance, 12/07/20 14:44:00 EDT, Tablet, [facility]acy #[id number], Partial fill upon patient request if the prescription is for a schedule II opioid drug., 155,... Start Date: 12/07/20 Stop Date: 12/17/20 Status: Ordered diphenhydrAMINE 25 mg oral tablet 1 tablet = 25 mg, By Mouth, 3 times a day, PRN as needed for itching, Will cause drowsiness, # 30 tablet, 0 Refills, Maintenance, 07/16/20 15:11:00 EDT, Tablet, [facility], Partial fill upon patient request if the prescription is f... Start Date: 07/16/20 Status: Ordered Dovonex 0.005% topical cream 1 applicator, Topically, 2 times a day, # 60 Gm, 5 Refills, Maintenance, 07/07/19 17:30:00 EDT, [facility] 3, 1 applicator Topically 2 times [...] Gm, 0 Refills, Maintenance, 04/27/20 14:35:00 EST, [place], [facility], Partial fill upon patient request if theprescription is for a schedule II opioid drug., 1... Start Date: 04/27/20 Stop Date: 05/27/20 Status: Ordered furosemide 20 mg oral tablet 1, tablet, By Mouth, Daily, # 30 tablet, Refills 3, Tot. Refills 0, Maintenance, 10/21/20 11:22:00 EDT, Route to Pharmacy Electronically, [id number], 158, cm, 10/18/20 10:46:00 EDT, Height, 95.4, kg, 10/16/20 10:11:00 EDT, Dry Weight Start Date: 10/21/20 Status: Ordered halobetasol 0.05% topical ointment See Instructions, APPLY A THIN FILM TO THE AFFECTED SKIN AND RUB IN GENTLY AND COMPLETELY TWICE A DAY, # 50 Gm, 1 Refills, [id number], 30, APPLY A THIN FILM TO THE AFFECTED SKIN AND RUB IN GENTLY AND COMPLETELY TWICE A DAY, 158, cm, 10/18/20 10:4... Start Date: 12/02/20 Status: Ordered hydrocortisone 1% topical cream 1 application, Topically, 2 times a day, Apply to rash areas, # 60 Gm, 3 Refills, Maintenance, 06/04/19 14:52:00 EDT, Cream, [facility], 1 application Topically 2 times a day,Instr:Apply to rash areas, 158, cm, 12/24/18 10:25:00 EDT, Hei... Start Date: 06/04/19 Status: Ordered ketoconazole 2% topical shampoo See Instructions, APPLY 1 APPLICATOR TOPICALLY 3X PER WEEK, # 120 mL, 3 Refills, [id number], 30, APPLY 1 APPLICATOR TOPICALLY 3X PER [...] 12/26/20 11:39:00 EDT, 09/24/20 11:38:00 EDT, Ointment, [facility]/pharmacy #[id number], Partial fill upon [...] 2 Refills, Maintenance, 10/27/20 12:02:00 EDT, Cream, [facility]/pharmacy #[id number], Partial fill upon patient request if the prescription is for a schedule II opioid drug., 1 application Topically 3 times a day,... Start Date: 10/27/20 Status: Ordered Moore 0.65% nasal spray 2 sprays, Nares, Both, 4 times a day, # 1 each, 0 Refills, Maintenance, 12/03/20 13:46:00 EDT, [facility]/pharmacy #[id number], Partial fill upon [...] 07/27/20 11:50:00 EDT, Cream, [facility], 1 applicationTopically Once,Instr:to skin head to feet, remove b... Start Date: 07/27/20 Status: Ordered predniSONE 5 mg oral tablet 1 tablet = 5 mg, By Mouth, 3 times a day, may fill 11/12/20 for 14 days, # 42 tablet, 0 Refills, Maintenance, 12/02/20 11:27:00 EDT, Tablet, [facility]/pharmacy #[id number], Partial fill upon patient request if theprescription is for a schedule II opioid drug., 158... Start Date: 12/02/20 Stop Date: 12/16/20 Status: Ordered selenium sulfide 2.5% topical lotion See Instructions, APPLY TOPICALLY TO AFFECTED AREA EVERY DAY FOR 7 DAYS, # 120 mL, 3 Refills, Soft Stop, 07/23/20 11:40:00 EDT, [facility], 7, APPLY TOPICALLY TO AFFECTED AREA EVERY DAY FOR 7 DAYS, 158, cm, 07/23/20 11:13:00 EDT, H... Start Date: 07/23/20 Status: Ordered Shingrix intramuscular injection = 0.5 mL, Intramuscular, Once, repeat dose in 2 to 6 months, # 2 each, 0 Refills, Soft Stop, 05/27/20 11:03:00 EDT, Powder, [facility], Partial fill upon patient request [...] 1 Refills, Maintenance, 03/10/20 18:21:00 EST, Cream, [facility] 3, Partial fill upon patient request [...] 0 Refills, Maintenance, 09/24/20 11:47:00 EDT, Gel, [facility]/pharmacy #[id number], 1 application Topically 4 times a day,Instr:for knee pain, 158, cm, 09/24/20 10:45:00 EDT, Height, 82, kg, ... Start Date: 09/24/20 Status: Ordered Problem List Condition Effective Dates Status Health Status Inform ant Anxiety(Confirmed) Active Opioid type dependence, continuous(Confirmed) 1 Active Osteoarthritis of left knee(Confirmed) Active Psoriasis(Confirmed) Active 1Client had been seen by Jazz Francois at [facility]. Client has no-showed to last appt and today.She will be targetted for closing if she does not responde to correspondence that will be sent on 02/14/13 Diagnosis Diagnosis Type Effective Dates Health Status Clinical Service Informant Nasal congestion Discharge Diagnosis 12/03/20 Otalgia Discharge Diagnosis 12/03/20 Vital Signs Most recent to oldest [Reference Range]: 1 Height 158 cm (12/03/20 1:27 PM) Oxygen Saturation [94-100 %] 99 % (12/03/20 1:27 PM) Pulse Rate [55-90 bpm] 80 bpm (12/03/20 1:27 PM) Blood Pressure [90-138/55-84 mm Hg] 141/ 71mm Hg *H* (12/03/20 1:27 PM) Respiratory Rate [16-30 br/min] 20 br/mi n (12/03/20 1:27 PM) Temperature [96.8-100.4 DegF] 98.1 DegF (12/03/20 1:27 PM) Mode of Delivery (Oxygen) Room air (12/03/20 1:27 PM) Blood pressure sites Arm, left (12/03/20 1:27 PM) Temperature Route Temporal (12/03/20 1:27 PM) Social History Social History Type Response Smoking Status 5-9 cigarettes (betw een 1/4 to 1/2 pack)/day in last 30 days entered on: 09/08/20 Sex
--- OUTSIDE RECORDS SUMMARY | 2022-11-03 10:38 | XMS_ITS | Continuity of Care Document ---
Author Name Unknown Organization [facility] Address Unknown Care Team Providers Care Computer Forensics Analyst Name Role Phone Ilya De Leon MD Primary Care Physician Encounter [facility] [place] Date(s): 06/29/21 - 07/29/21 [facility] Allergies, Adverse Reactions, Alerts Substance Reaction [...] Refills, Maintenance, 06/29/21 15:10:00 EDT, ER Tablet, [facility]/pharmacy #[id number], Partial fill upon patient request if the prescription is for a schedule II opioid drug., 155, cm, 05/30/21 15:34:... Start Date: 06/29/21 Status: Ordered capsaicin 0.025% topical cream See Instructions, APPLY TO AFFECTED AREA TWICE A DAY, # 60 Gm, 1 Refills, [id number], 30, APPLY TO AFFECTED AREA TWICE A DAY, 155, cm, 03/21/22 15:34:00 EDT, Height, 95.9, kg, 12/05/20 10:08:00 EDT, Dry Weight Start Date: 05/31/21 Status: Ordered Cavilon Emollient topical cream 1 application, Topically, 2 times a day, PRN for dry skin, # 454 Gm, 1 Refills, Maintenance, 09/30/19 16:26:00 EDT, Cream, [facility] 3, 1 application Topically 2 times a day,PRN:for dry skin, 158, cm, 08/27/19 13:02:00 EDT, Height, 76, kg... Start Date: 09/30/19 Status: Ordered clonazePAM 0.5 mg oral tablet 1 tablet = 0.5 mg, By Mouth, Daily, mAY FILL 06/21/21, # 14 tablet, 0 Refills, Maintenance, 07/29/2212:45:00 EDT, Tablet, [facility], COIL TAPER reviewed, covering for Dr. De Leon, 155, cm, 05/30/21 15:34:00 EDT, Height, 95.9, kg, ... Start Date: 07/29/21 Stop Date: 08/12/21 Status: Ordered Dovonex 0.005% topical cream 1 applicator, Topically, 2 times a day, # 60 Gm, 5 Refills, Maintenance, 07/07/19 17:30:00 EDT, [facility], 1 applicator Topically 2 times a day,x30 days, 158, cm, 12/24/18 10:25:00 EDT, Height, 76, kg, 04/12/19 15:31:00 EST, Dry Weight Start Date: 07/07/19 Stop Date: 01/03/20 Status: Ordered fluticasone 50 mcg/inh nasal spray 1 sprays, Nares, Both, 2 times a day, in each nostril. for allergies, # 16 Gm, 0 Refills, Maintenance, 04/27/20 14:35:00 EST, [place], [facility] 3, Partial fill upon patient request if theprescription is for a schedule II opioid drug., 1... Start Date: 04/27/20 Stop Date: 05/27/20 Status: Ordered furosemide 20 mg oral tablet 1, tablet, By Mouth, Daily, # 30 tablet, Refills 3, Tot. Refills 3, Maintenance, 04/18/21 12:11:00 EST, Route to Pharmacy Electronically, [facility]/pharmacy #[id number], 155, cm, 04/18/21 10:12:00 EST, Height, 95.9, kg, 12/05/20 10:08:00 EDT, Dry Weight Start Date: 04/18/21 Status: Ordered halobetasol 0.05% topical ointment See Instructions, APPLY A THIN FILM TO THE AFFECTED SKIN AND RUB IN GENTLY AND COMPLETELY TWICE A DAY, # 50 Gm, 1 Refills, [id number], 30, APPLY A THIN FILM TO THE AFFECTED SKIN AND RUB IN GENTLY AND COMPLETELY TWICE A DAY, 155, cm, 12/05/20 10:0... Start Date: 03/15/21 Status: Ordered hydrocortisone 1% topical cream 1 application, Topically, 2 times a day, # 30 Gm, 0 Refills, Maintenance, 06/17/21 11:42:00 EDT, Cream, [facility], Partial fill upon patient request if the prescription is for a schedule II opioid drug., 1 application Topically 2 times... Start Date: 06/17/21 Status: Ordered ketoconazole 2% topical shampoo See Instructions, APPLY 1 APPLICATOR TOPICALLY 3X PER WEEK, # 120 mL, 3 Refills, [id number], 30, APPLY 1 APPLICATOR TOPICALLY 3X PER WEEK, 155, cm, 03/17/21 7:53:00 EST, Height, 95.9, kg, 12/05/20 10:08:00 EDT, Dry Weight Start Date: 03/21/21 Status: Ordered loratadine 10 mg oral tablet 1, tablet, By Mouth, Daily, # 15 tablet, Refills 3, Route to Pharmacy Electronically, [id number], 155, cm, 05/30/21 15:34:00 EDT, Height, 95.9, [...] Stop 08/12/21 13:45:00 EDT, 07/29/21 13:45:00 EDT, [facility], 155, cm, 05/30/21 15:34:00 EDT, Height, 95.9, kg, 12/05/20 10:08:00 EDT, Dry Weight Start Date: 07/29/21 Stop Date: 08/12/21 Status: Ordered selenium sulfide 2.5% topical lotion See Instructions, APPLY TOPICALLY TO AFFECTED AREA EVERY DAY FOR 7 DAYS, # 120 mL, 3 Refills, Soft Stop, 04/26/21 18:07:00 EST, [facility]/pharmacy #[id number], 7, APPLY TOPICALLY TO AFFECTED AREA EVERY DAY FOR 7DAYS, 155, cm, 04/18/21 10:12:00 EST, Height, 95.9,... Start Date: 04/26/21 Status: Ordered tiZANidine 2 mg oral tablet 1, tablet, By Mouth, 3 times a day, # 60 tablet, Refills 0, Route to Pharmacy Electronically, [facility] [id number], 155, cm, 05/03/21 14:39:00 EST, Height, 95.9, kg, 12/05/20 10:08:00 EDT, Dry Weight Start Date: 05/09/21 Status: Ordered Problem List Condition Effective Dates Status Health Status Inform ant Anxiety(Confirmed) Active Opioid type dependence, continuous(Confirmed) 1 Active Osteoarthritis of left knee(Confirmed) Active Psoriasis(Confirmed) Active Severe obesity(Confirmed) Active 1Client had been seen by Jazz Francois at [facility]. Client has no-showed to last appt and today.She will be targetted for closing if she does not responde to correspondence that will be sent on 02/14/13 Social History Social History Type Response Smoking Status 10 or more cigarette s (1/2 pack or more)/day in last 30 days entered on: 04/18/21 Sex
--- OUTSIDE RECORDS SUMMARY | 2022-11-03 10:39 | XMS_ITS | Continuity of Care Document ---
Author Name Unknown Organization [facility] Address [address] [place] [id number]- Care Team Providers Care Supply Chain Systems Manager Name Role Phone Ilya De Leon MD Primary Care Physician Encounter [facility] R [id number] Date(s): 08/17/22 - 10/15/22 [facility] [address] [place] [address]- Attending Physician: Christoph Branham MD Admitting Physician: Yonas NEWMAN, Christoph Referring Physician: Atul Cain MD Allergies, Adverse Reactions, Alerts Substance Reaction [...] 02/06/10 Garrett rded 1Admin Note: ADMIN BY [facility] 2Admin Note: FLUVIRIN MULTIDOSE ADMINISTERED AT [facility] Medications acetaminophen 650 mg oral tablet, extended release 2 tablet = 1,300 mg, By Mouth, Every 8 hours, # 100 tablet, 1 Refills, Maintenance, 06/29/21 15:10:00 EDT, ER Tablet, [id number], Partial fill upon patient request if the prescription is for a schedule II opioid drug., 155, cm, 05/30/21 15:34:... Start Date: 06/29/21 Status: Ordered Cavilon Emollient topical cream 1 application, Topically, 2 times a day, PRN for dry skin, # 454 Gm, 1 Refills, Maintenance, 09/30/19 16:26:00 EDT, Cream, [facility], 1 application Topically 2 times a day,PRN:for dry skin, 158, cm, 08/27/19 13:02:00 EDT, Height, 76, kg... Start Date: 09/30/19 Status: Ordered Cavilon Emollient topical cream 1 application, Topically, 2 times a day, PRN for dry skin, # 454 Gm, 3 Refills, Maintenance, 09/19/22 11:12:00 EDT, Cream, [facility], 1 application Topically 2 times a day,PRN:for dry skin, 155, cm, 09/04/22 10:17:00 EDT, Height,... Start Date: 09/19/22 Status: Ordered cetirizine 10 mg oral tablet, chewable 1 tablet = 10 mg, By Mouth, Daily, PRN for allergy symptoms, # 12 tablet, 4 Refills, Maintenance, 09/04/22 10:28:00 EDT, Chew Tablet, [facility], Partial fill upon patient [...] 3 Refills, Maintenance, 10/04/22 8:15:00 EDT, Tablet, [facility], ROUTE DELIVERER reviewed, covering for Dr. De Leon, 15... Start Date: 10/04/22 Stop Date: 11/01/22 Status: Ordered clonazePAM 0.5 mg oral tablet 1 tablet = 0.5 mg, By Mouth, 2 times a day, Increaseddose July weekly on Fridays for 3 weeks starting on 07/21, # 14 tablet, 2 Refills, Maintenance, 07/19/22 12:38:00 EDT, Tablet, [facility], ROUTE DELIVERER reviewed, covering for Dr. De Leon, 1... Start Date: 07/19/22 Stop Date: 08/09/22 Status: Ordered Dovonex 0.005% topical cream 1 applicator, Topically, 2 times a day, # 60 Gm, 5 Refills, Maintenance, 05/24/22 12:41:00 EDT, [facility], 1 applicator Topically 2 times a day,x30 days, 155, cm, 01/23/22 14:00:00 EST, Height, 106.5, kg, 09/14/21 9:38:00 EDT, Dry... Start Date: 05/24/22 Stop Date: 11/20/22 Status: Ordered Eucerin Unscented topical lotion See Instructions, apply as frequently as needed, # 1 each, 3 Refills, Maintenance, 09/19/22 11:12:00 EDT, [facility], Partial fill upon patient request if the prescription is for a schedule II opioid drug., apply as frequently as n... Start Date: 09/19/22 Status: Ordered Eucerin Unscented topical lotion See Instructions, apply as frequently as needed, # 1 each, 0 Refills, Maintenance, 09/28/21 12:23:00 EDT, [facility], Partial fill upon patient request if the prescription is for a schedule II opioid drug., apply as frequently as n... Start Date: 09/28/21 Status: Ordered fluticasone 50 mcg/inh nasal spray 1 sprays, Nares, Both, 2 times a day, in each nostril. for allergies, # 16 Gm, 0 Refills, Maintenance, 04/27/20 14:35:00 EST, [place], [facility], Partial fill upon patient request if [...] Gm, 3 Refills, Maintenance, 09/19/22 11:12:00 EDT, [facility], 30, APPLY A THIN FILM TO THE AFFECTED SKIN AND RUB IN GENTLY... Start Date: 09/19/22 Status: Ordered ketoconazole 2% topical shampoo See Instructions, APPLY 1 APPLICATOR TOPICALLY 3X PER WEEK, # 120 mL, 3 Refills, Maintenance, 05/16/22 8:48:00 EST, [id number], 30, APPLY 1 APPLICATOR TOPICALLY 3X PER [...] Refills, Soft Stop, 07/27/20 11:50:00 EDT, Cream, [facility], 1 applicationTopically Once,Instr:to skin head to feet, remove b... Start Date: 07/27/20 Status: Ordered predniSONE 5 mg oral tablet See Instructions, Starting next refill increase to 4 tablets daily, # 28 tablet, 3 Refills, Maintenance, 10/04/22 8:15:00 EDT, [facility], Partial fill upon patient request if theprescription is for a schedule II opioid drug., 155... Start Date: 10/04/22 Status: Ordered selenium sulfide 2.5% topical lotion See Instructions, APPLY TOPICALLY TO AFFECTED AREA EVERY DAY FOR 7 DAYS, # 120 mL, 3 Refills, Soft Stop, 10/26/21 15:43:00 EDT, [facility], 7, APPLY TOPICALLY TO AFFECTED AREA [...] 11/01/22 8:14:00 EDT, 10/04/22 8:14:00 EDT, Tablet, [facility], Partial fi... Start Date: 10/04/22 Stop [...] Personnel Name: Ilya De Leon MD Position: [facility] Physician - Primary Care Member Role: PCP Address: Address: [address] [place] [id number]- Care Team Related Persons Name: JD ALVAREZ Address: home [address] [place] [id number]
--- OUTSIDE RECORDS SUMMARY | 2022-11-03 10:39 | XMS_ITS | Continuity of Care Document ---
Author Name Unknown Organization [facility] Address [address] [place] [address]- Care Team Providers Care Security Escort Name Role Phone Ilya De Leon MD Primary Care Physician Encounter [facility] [place] Date(s): 09/02/20 - 10/02/20 [facility]/[address] [address]- Allergies, Adverse Reactions, Alerts Substance Reaction Severity [...] 01/30/11 Gi lizbeth 1Admin Note: ADMIN BY [facility] 2Admin Note: FLUVIRIN MULTIDOSE ADMINISTERED AT [facility] Medications acetaminophen 500 mg oral tablet 2 tablet = 1,000 mg, By Mouth, 3 times a day, PRN as needed for fever, not to exceed 3000 mg/day take scheduled three times a day, # 100 tablet, 1 Refills, Acute 12/26/20 11:44:00 EDT, 09/24/20 11:43:00 EDT, Tablet, [id number], Partial fill u... Start Date: 09/24/20 Stop Date: 12/26/20 Status: Ordered Cavilon Emollient topical cream 1 application, Topically, 2 times a day, PRN for dry skin, # 454 Gm, 1 Refills, Maintenance, 09/30/19 16:26:00 EDT, Cream, [facility], 1 application Topically 2 times a day,PRN:for dry skin, 158, cm, 08/27/19 13:02:00 EDT, Height, 76, kg... Start Date: 09/30/19 Status: Ordered cetirizine 10 mg oral tablet 1 tablet = 10 mg, By Mouth, Daily, for allergies. Do NOT take with claritin, # 30 tablet, 0 Refills, Maintenance, 07/23/20 11:37:00 EDT, Tablet, [facility], Partial fill upon patient request if the prescription is for a schedule II... Start Date: 07/23/20 Stop Date: 08/22/20 Status: Ordered Claritin 10 mg oral tablet 10 mg, 1, tablet, By Mouth, Daily, # 15 tablet, Refills 3, Tot. Refills 3, Maintenance, 11/06/18 8:33:38 EDT, Route to Pharmacy Electronically, [id number], [facility] Start Date: 11/06/18 Status: Ordered clonazePAM 0.5 mg oral tablet 1 tablet = 0.5 mg, By Mouth, Daily, # 28 tablet, 0 Refills, Maintenance, 09/22/20 12:58:00 EDT, Tablet, [facility], Partial fill upon patient request if the prescription is for a schedule II opioid drug., 158, cm, 09/08/20 14:36:00... Start Date: 09/22/20 Status: Ordered diphenhydrAMINE 25 mg oral tablet 1 tablet = 25 mg, By Mouth, 3 times a day, PRN as needed for itching, Will cause drowsiness, # 30 tablet, 0 Refills, Maintenance, 07/16/20 15:11:00 EDT, Tablet, [facility], Partial fill upon patient request if the prescription is f... Start Date: 07/16/20 Status: Ordered Dovonex 0.005% topical cream 1 applicator, Topically, 2 times a day, # 60 Gm, 5 Refills, Maintenance, 07/07/19 17:30:00 EDT, [facility], 1 applicator Topically [...] Gm, 0 Refills, Maintenance, 04/27/20 14:35:00 EST, [place], [facility], Partial fill upon patient request if theprescription is for a schedule II opioid drug., 1... Start Date: 04/27/20 Stop Date: 05/27/20 Status: Ordered furosemide 20 mg oral tablet 20 mg, 1, tablet, By Mouth, Daily, # 30 tablet, Refills 1, Tot. Refills 1, Maintenance, 08/27/20 16:12:00 EDT, Route to Pharmacy Electronically, [facility]/pharmacy #[id number], Partial fill upon patient request if the prescription is for a schedule II opioid drug... Start Date: 08/27/20 Status: Ordered halobetasol 0.05% topical ointment 1 application, Topically, 2 times a day, apply in a thin film to the affected skin and rub in gently and completely, # 50 Gm, 1 Refills, Acute 10/18/20 14:15:00 EDT, 09/24/20 13:11:00 EDT, Ointment, [facility]/pharmacy #[id number], Partial fill upon patient reques... Start Date: 09/24/20 Stop Date: 10/18/20 Status: Ordered hydrocortisone 1% topical cream 1 application, Topically, 2 times a day, Apply to rash areas, # 60 Gm, 3 Refills, Maintenance, 06/04/19 14:52:00 EDT, Cream, [facility], [...] 12/26/20 11:39:00 EDT, 09/24/20 11:38:00 EDT, Ointment, [facility]/pharmacy #[id number], Partial fill upon patient request if [...] 2 Refills, Maintenance, 09/14/20 17:22:00 EDT, Cream, [facility]/pharmacy #[id number], Partial fill upon patient request if the prescription is for a schedule II opioid drug., 1 application Topically 3 times a day,... Start Date: 09/14/20 Status: Ordered Nizoral 2% topical shampoo See Instructions, 1 applicator Topically 3x per week, # 120 mL, 3 Refills, Soft Stop, 08/12/20 10:30:00 EDT, [facility]/pharmacy #[id number], 1 applicator Topically 3x per week, 158, cm, 07/23/20 11:13:00 EDT, Height, 82, kg, 07/21/20 20:18:00 EDT, Dry Weight Start Date: 08/12/20 Status: Ordered permethrin 5% topical cream 1 application, Topically, Once, to skin head to feet, remove by washing after 8 to 14 hours, # 60 Gm, 0 Refills, Soft Stop, 07/27/20 11:50:00 EDT, Cream, [facility], 1 applicationTopically Once,Instr:to skin head to feet, remove b... Start Date: 07/27/20 Status: Ordered predniSONE 5 mg oral tablet 1 tablet = 5 mg, By Mouth, 3 times a day, # 42 tablet, 0 Refills, Maintenance, 09/27/20 11:47:00 EDT, Tablet, [facility]/pharmacy #[id number], Partial fill upon patient request if the prescription is for a schedule II opioid drug., 158, cm, 09/24/20 10:45:00 EDT,... Start Date: 09/27/20 Stop Date: 10/11/20 Status: Ordered selenium sulfide 2.5% topical lotion See Instructions, APPLY TOPICALLY TO AFFECTED AREA EVERY DAY FOR 7 DAYS, # 120 mL, 3 Refills, Soft Stop, 07/23/20 11:40:00 EDT, [facility], 7, APPLY TOPICALLY TO AFFECTED AREA EVERY DAY FOR 7 DAYS, 158, cm, 07/23/20 11:13:00 EDT, H... Start Date: 07/23/20 Status: Ordered Shingrix intramuscular injection = 0.5 mL, Intramuscular, Once, repeat dose in 2 to 6 months, # 2 each, 0 Refills, Soft Stop, 05/27/20 11:03:00 EDT, Powder, [facility], Partial fill upon patient request if [...] 1 Refills, Maintenance, 03/10/20 18:21:00 EST, Cream, [facility], Partial fill [...] 0 Refills, Maintenance, 09/24/20 11:47:00 EDT, Gel, [facility]/pharmacy #[id number], 1 application Topically 4 times a day,Instr:for knee pain, 158, cm, 09/24/20 10:45:00 EDT, Height, 82, kg, ... Start Date: 09/24/20 Status: Ordered Problem List Condition Effective Dates Status Health Status Inform ant Opioid type dependence, continuous(Confirmed) 1 Active 1Client had been seen by Jazz Francois at [facility]. Client has no-showed to last appt and today.She will be targetted for closing if she does not responde to correspondence that will be sent on 02/14/13 Social History Social History Type Response Smoking Status 5-9 cigarettes (betw een 1/4 to 1/2 pack)/day in last 30 days entered on: 09/08/20 Sex
--- OUTSIDE RECORDS SUMMARY | 2022-11-03 10:39 | XMS_ITS | Continuity of Care Document ---
Author Name Unknown Organization [facility] Address [address] [place] [address]- Care Team Providers Care Figure Model Name Role Phone Ilya De Leon MD Primary Care Physician Encounter [facility] [place] Date(s): 04/27/20 - 05/27/20 [facility] [address] [place] [address]- Attending Physician: Celsa Lyons Admitting Physician: Admtr, Ar8 Referring Physician: Admtr, Ar8 Allergies, Adverse Reactions, Alerts Substance Reaction Severity Status penicillin Rash Active morphine HAND SWELLING Active Toradol Rash Active Imitrex Chest pain Active aspirin [...] 01/30/11 Gi lizbeth 1Admin Note: ADMIN BY [facility] 2Admin Note: FLUVIRIN MULTIDOSE ADMINISTERED AT [facility] Medications Cavilon Emollient topical cream 1 application, Topically, 2 times a day, PRN for dry skin, # 454 Gm, 1 Refills, Maintenance, 09/30/19 16:26:00 EDT, Cream, [facility], 1 application Topically 2 times a day,PRN:for dry skin, 158, cm, 08/27/19 13:02:00 EDT, Height, 76, kg... Start Date: 09/30/19 Status: Ordered cetirizine 10 mg oral tablet 1 tablet = 10 mg, By Mouth, Daily, for allergies. Do NOT take with claritin, # 30 tablet, 0 Refills, Maintenance, 04/27/20 14:41:00 EST, Tablet, [facility], Partial fill upon patient request if the prescription is for a schedule II opioi... Start Date: 04/27/20 Stop Date: 05/27/20 Status: Ordered Claritin 10 mg oral tablet 10 mg, 1, tablet, By Mouth, Daily, # 15 tablet, Refills 3, Tot. Refills 3, Maintenance, 11/06/18 8:33:38 EDT, Route to Pharmacy Electronically, [id number], [facility] Start Date: 11/06/18 Status: Ordered Dovonex 0.005% topical cream 1 applicator, Topically, 2 times a day, # 60 Gm, 5 Refills, Maintenance, 07/07/19 17:30:00 EDT, [facility] 3, 1 applicator Topically 2 times [...] Gm, 0 Refills, Maintenance, 04/27/20 14:35:00 EST, [place], [facility], Partial fill upon patient request if theprescription is for a schedule II opioid drug., 1... Start Date: 04/27/20 Stop Date: 05/27/20 Status: Ordered hydrocortisone 1% topical cream 1 application, Topically, 2 times a day, Apply to rash areas, # 60 Gm, 3 Refills, Maintenance, 06/04/19 14:52:00 EDT, Cream, [facility], 1 application Topically 2 times [...] # 42 tablet, 0 Refills, Soft Stop, 05/04/20 9:55:00 EST, [facility], 158, cm, 04/12... Start Date: 05/04/20 Status: Ordered Medrol Dosepak 4 mg oral tablet per label intructions, By Mouth, Once, as on label, # 1 each, 0 Refills, Soft Stop, 08/11/19 20:08:00 EDT, [facility], 158, cm, 12/24/18 10:25:00 EDT, [...] 10 Refills, Soft Stop, 05/13/20 11:05:00 EST, [facility], 1 applicator Topically [...] Status: Ordered predniSONE 20 mg oral tablet See Instructions, 2 tablet By Mouth Daily for 2 days then 1 daily for 3 days, # 7 each, 0 Refills, Acute 06/03/20 12:25:00 EDT, 05/27/20 12:24:00 EDT, [facility]/pharmacy #[id number], Partial fill upon patient request if the prescription is for a schedule II opioi... Start Date: 05/27/20 Stop Date: 06/03/20 Status: Ordered predniSONE 50 mg oral tablet 1 tablet = 50 mg, By Mouth, Daily, for 7 days, # 7 tablet, 0 Refills, Hard Stop 06/03/20 10:56:00 EDT, 05/27/20 10:56:00 EDT, [facility]/pharmacy #[id number], Partial fill upon patient request if the prescriptionis for a schedule II opioid drug., 158, cm, ... Start Date: 05/27/20 Stop Date: 06/03/20 Status: Ordered selenium sulfide 2.5% topical lotion See Instructions, APPLY TOPICALLY TO AFFECTED AREA EVERY DAY FOR 7 DAYS, # 120 mL, 3 Refills, Maintenance, [facility], 7, APPLY TOPICALLY TO AFFECTED AREA EVERY DAY FOR 7 DAYS, 158, cm, 05/10/20 11:36:00 EST, Height, 76, kg, 04/12/19 15:31:00 E... Start Date: 05/21/20 Status: Ordered selenium sulfide 2.5% topical lotion See Instructions, APPLY TOPICALLY TO AFFECTED AREA EVERY DAY FOR 7 DAYS, # 120 mL, 3 Refills, Maintenance, [facility], 7, APPLY TOPICALLY TO AFFECTED AREA EVERY DAY FOR 7 DAYS, 158, cm, 08/27/19 13:02:00 EDT, Height, 76, kg, 04/12/19 15:31:00 E... Start Date: 03/01/20 Status: Ordered Shingrix intramuscular injection = 0.5 mL, Intramuscular, Once, repeat dose in 2 to 6 months, # 2 each, 0 Refills, Soft Stop, 05/27/20 11:03:00 EDT, Powder, [facility], Partial fill upon patient request if [...] 1 Refills, Maintenance, 03/10/20 18:21:00 EST, Cream, [facility], Partial fill upon [...] 0 Refills, Maintenance, 04/06/19 20:19:00 EST, Tablet, [facility], 158, cm, 12/24/18 10:25:00 [...]
--- OUTSIDE RECORDS SUMMARY | 2022-11-03 10:39 | XMS_ITS | Continuity of Care Document ---
Author Name Unknown Organization [facility] Address [address] [place] [address]- Care Team Providers Care Special Effects Specialist Name Role Phone Ilya De Leon MD Primary Care Physician Encounter [facility] Date(s): 03/22/22 - 04/21/22 [facility]/[address] [address]- [place] Allergies, Adverse Reactions, Alerts Substance Reaction Severity Status penicillin Rash Active morphine HAND SWELLING Active Imitrex Chest pain Active trimethoprim-sulfamethoxazole DS 1 Carolyn sears Hives 17-MAY-2013 07:29:57<$> Unknown Active aspirin Ibuprofen tight throat Rash Active Toradol Rash Active Motrin tight [...] Refills, Maintenance, 06/29/21 15:10:00 EDT, ER Tablet, [facility]/pharmacy #[id number], Partial fill upon patient request if the prescription is for a schedule II opioid drug., 155, cm, 05/30/21 15:34:... Start Date: 06/29/21 Status: Ordered capsaicin 0.025% topical cream See Instructions, APPLY TO AFFECTED AREA TWICE A DAY, # 60 Gm, 1 Refills, [id number], 30, APPLY TO AFFECTED AREA TWICE A DAY, 155, cm, 05/30/21 15:34:00 EDT, Height, 95.9, kg, 12/05/20 10:08:00 EDT, Dry Weight Start Date: 05/31/21 Status: Ordered Cavilon Emollient topical cream 1 application, Topically, 2 times a day, PRN for dry skin, # 454 Gm, 1 Refills, Maintenance, 09/30/19 16:26:00 EDT, Cream, [facility] 3, 1 application Topically 2 times a day,PRN:for dry skin, 158, cm, 08/27/19 13:02:00 EDT, Height, 76, kg... Start Date: 09/30/19 Status: Ordered clonazePAM 0.5 mg oral tablet 1 tablet = 0.5 mg, By Mouth, Daily at bedtime, May fill 03/24/22 and weekly on Fridays for3 weeks, #7 tablet, 2 Refills, Maintenance, 03/22/22 12:52:00 EST, Tablet, [facility], [employer] reviewed, covering for Dr. De Leon, 155, cm, 01/23... Start Date: 03/22/22 Stop Date: 04/12/22 Status: Ordered clonazePAM 0.5 mg oral tablet 1 tablet = 0.5 mg, By Mouth, Daily at bedtime, May fill 04/14/22 and weekly on Fridays for3 weeks, # 7 tablet, 2 Refills, Maintenance, 04/13/22 10:13:00 EST, Tablet, [facility], PMPreviewed, covering for Dr. De Leon, 155, cm, 01/23/... Start Date: 04/13/22 Stop Date: 05/04/22 Status: Ordered coal tar topical 1% lotion See Instructions, applyTopically Daily at bedtime, # 120 mL, 3 Refills, Maintenance, 10/26/21 15:45:00 EDT, [facility], Partial fill upon patient request if the prescription is for a schedule II opioid drug., applyTopically Daily a... Start Date: 10/26/21 Status: Ordered Dovonex 0.005% topical cream 1 applicator, Topically, 2 times a day, # 60 Gm, 5 Refills, Maintenance, 07/07/19 17:30:00 EDT, [facility] 3, 1 applicator Topically 2 times a day,x30 days, 158, cm, 12/24/18 10:25:00 EDT, Height, 76, kg, 04/12/19 15:31:00 EST, Dry Weight Start Date: 07/07/19 Stop Date: 01/03/20 Status: Ordered Eucerin Unscented topical lotion See Instructions, apply as frequently as needed, # 1 each, 0 Refills, Maintenance, 09/28/21 12:23:00 EDT, [facility], Partial fill upon patient request if the prescription is for a schedule II opioid drug., apply as frequently as n... Start Date: 09/28/21 Status: Ordered fluticasone 50 mcg/inh nasal spray 1 sprays, Nares, Both, 2 times a day, in each nostril. for allergies, # 16 Gm, 0 Refills, Maintenance, 04/27/20 14:35:00 EST, [place], [facility] 3, Partial fill upon patient request if theprescription is for a schedule II opioid drug., 1... Start Date: 04/27/20 Stop Date: 05/27/20 Status: Ordered halobetasol 0.05% topical ointment See Instructions, APPLY A THIN FILM TO THE AFFECTED SKIN AND RUB IN GENTLY AND COMPLETELY TWICE A DAY, # 50 Gm, 1 Refills, Maintenance, 10/26/21 15:44:00 EDT, [facility], 30, APPLY A THIN FILM TO THE AFFECTED SKIN AND RUB IN GENTLY... Start Date: 10/26/21 Status: Ordered ketoconazole 2% topical shampoo See Instructions, APPLY 1 APPLICATOR TOPICALLY 3X PER WEEK, # 120 mL, 3 Refills, Maintenance, 12/27/21 19:30:00 EDT, [facility] [id number], 30, APPLY 1 APPLICATOR TOPICALLY 3X PER WEEK, 155, cm, 12/12/21 16:00:00 EDT, Height, 106.5, kg, 09/14/21 9:38:00 EDT... Start Date: 12/27/21 Status: Ordered loratadine 10 mg oral tablet 1, tablet, By Mouth, Daily, # 90 tablet, Refills 1, Tot. Refills 1, Maintenance, 11/01/21 15:19:00 EDT, [id number], 155, cm, 09/28/21 12:06:00 EDT, Height, 106.5, kg, 09/14/21 9:38:00 EDT, Dry Weight Start Date: 11/01/21 Status: Ordered Methadone By Mouth, 0 Refills, Maintenance Start Date: 12/25/11 Status: Ordered mupirocin 2% topical cream 1 application, Topically, 3 times a day, # 30 Gm, 2 Refills, Maintenance, 03/08/21 10:26:00 EST, Cream, [facility]/pharmacy #[id number], Partial fill upon patient request if the prescription is for a schedule II opioid drug., 1 application Topically 3 times a day,... Start Date: 03/08/21 Status: Ordered permethrin 5% topical cream 1 application, Topically, Once, to skin head to feet, remove by washing after 8 to 14 hours, # 60 Gm, 0 Refills, Soft Stop, 07/27/20 11:50:00 EDT, Cream, [facility], 1 applicationTopically Once,Instr:to skin head to feet, remove b... Start Date: 07/27/20 Status: Ordered predniSONE 10 mg oral tablet See Instructions, May fill 03/24/22 and weekly on Fridays for 3 weeks, # 14 tablet, 2 Refills, 03/22/22 12:52:00 EST, [facility], 155, cm, 01/23/22 14:00:00 EST, Height, 106.5, kg,09/14/21 9:38:00 EDT, Dry Weight Start Date: 03/22/22 Status: Ordered predniSONE 10 mg oral tablet See Instructions, May fill and weekly on Fridays for 3 weeks, # 14 tablet, 2 Refills, 04/13/22 10:13:00 EST, [facility], 155, cm, 01/23/22 14:00:00 EST, Height, 106.5, kg,09/14/21 9:38:00 EDT, Dry Weight Start Date: 04/13/22 Status: Ordered selenium sulfide 2.5% topical lotion See Instructions, APPLY TOPICALLY TO AFFECTED AREA EVERY DAY FOR 7 DAYS, # 120 mL, 3 Refills, Soft Stop, 10/26/21 15:43:00 EDT, [facility], 7, APPLY TOPICALLY TO AFFECTED AREA EVERY DAY FOR 7 DAYS, 155, cm, 09/28/21 12:06:00 EDT, H... Start Date: 10/26/21 Status: Ordered tiZANidine 2 mg oral tablet 1, tablet, By Mouth, 3 times a day, # 60 tablet, Refills 0, Route to Pharmacy Electronically, [id number], 155, cm, 05/03/21 14:39:00 EST, Height, 95.9, kg, 12/05/20 10:08:00 EDT, Dry Weight Start Date: 05/09/21 Status: Ordered traMADol 50 mg oral tablet 1 tablet = 50 mg, By Mouth, Every 8 hours, PRN Pain , Severe, for 7 days, May fill 04/14/22 and weekly on Fridays for3 weeks, # 21 tablet, 2 Refills, Acute 05/04/22 10:13:00 EST, 04/13/22 10:13:00 EST,Tablet, [facility], Partial fi... Start Date: 04/13/22 Stop [...] Care Physician Member Role: PCP Address: Address: [address] [place] [address]- Care Team Related Persons Name: JD ALVAREZ Address: home [address] [place] [address] [place] [address]
--- OUTSIDE RECORDS SUMMARY | 2022-11-03 10:39 | XMS_ITS | Continuity of Care Document ---
Author Name Unknown Organization [facility] Address [address] [place] [address]- Care Team Providers Care Electrical Tech/Project Manager Name Role Phone Ilya De Leon MD Primary Care Physician [place] [facility] 03/09/22 [facility]/[address] [address]- [place] Allergies, Adverse Reactions, Alerts Substance Reaction [...] 01/30/11 Gi lizbeth 1Admin Note: ADMIN BY [facility] 2Admin Note: FLUVIRIN MULTIDOSE ADMINISTERED AT [facility] Medications acetaminophen 650 mg oral tablet, extended release 2 tablet = 1,300 mg, By Mouth, Every 8 hours, # 100 tablet, 1 Refills, Maintenance, 06/29/21 15:10:00 EDT, ER Tablet, [facility]/pharmacy #[id number], Partial fill upon patient request if the prescription is for a schedule II opioid drug., 155, cm, 05/30/21 15:34:... Start Date: 06/29/21 Status: Ordered capsaicin 0.025% topical cream See Instructions, APPLY TO AFFECTED AREA TWICE A DAY, # 60 Gm, 1 Refills, [id number], 30, APPLY TO AFFECTED AREA TWICE A DAY, 155, cm, 05/30/21 15:34:00 EDT, Height, 95.9, kg, 12/05/20 10:08:00 EDT, Dry Weight Start Date: 05/31/21 Status: Ordered Cavilon Emollient topical cream 1 application, Topically, 2 times a day, PRN for dry skin, # 454 Gm, 1 Refills, Maintenance, 09/30/19 16:26:00 EDT, Cream, [facility], 1 application Topically 2 times a day,PRN:for dry skin, 158, cm, 08/27/19 13:02:00 EDT, Height, 76, kg... Start Date: 09/30/19 Status: Ordered clonazePAM 0.5 mg oral tablet 1 tablet = 0.5 mg, By Mouth, Daily at bedtime, May fill 03/03/22 and weekly on Fridays for3 weeks, # 7 tablet, 2 Refills, Maintenance, 03/01/22 11:51:00 EST, Tablet, [facility], LOAN PROCESSOR reviewed, covering for Dr. De Leon, 155, cm, 01/10... Start Date: 03/01/22 Stop Date: 03/22/22 Status: Ordered coal tar topical 1% lotion See Instructions, applyTopically Daily at bedtime, # 120 mL, 3 Refills, Maintenance, 10/26/21 15:45:00 EDT, [facility], Partial fill upon patient request if the prescription is for a schedule II opioid drug., applyTopically Daily a... Start Date: 10/26/21 Status: Ordered Dovonex 0.005% topical cream 1 applicator, Topically, 2 times a day, # 60 Gm, 5 Refills, Maintenance, 07/07/19 17:30:00 EDT, [facility], 1 applicator Topically 2 times a day,x30 days, 158, cm, 12/24/18 10:25:00 EDT, Height, 76, kg, 04/12/19 15:31:00 EST, Dry Weight Start Date: 07/07/19 Stop Date: 01/03/20 Status: Ordered Eucerin Unscented topical lotion See Instructions, apply as frequently as needed, # 1 each, 0 Refills, Maintenance, 09/28/21 12:23:00 EDT, [facility], Partial fill upon patient request if the prescription is for a schedule II opioid drug., apply as frequently as n... Start Date: 09/28/21 Status: Ordered fluticasone 50 mcg/inh nasal spray 1 sprays, Nares, Both, 2 times a day, in each nostril. for allergies, # 16 Gm, 0 Refills, Maintenance, 04/27/20 14:35:00 EST, [place], [facility] 3, Partial fill upon patient request if theprescription is for a schedule II opioid drug., 1... Start Date: 04/27/20 Stop Date: 05/27/20 Status: Ordered halobetasol 0.05% topical ointment See Instructions, APPLY A THIN FILM TO THE AFFECTED SKIN AND RUB IN GENTLY AND COMPLETELY TWICE A DAY, # 50 Gm, 1 Refills, Maintenance, 10/26/21 15:44:00 EDT, [facility], 30, APPLY A THIN FILM TO THE AFFECTED SKIN AND RUB IN GENTLY... Start Date: 10/26/21 Status: Ordered ketoconazole 2% topical shampoo See Instructions, APPLY 1 APPLICATOR TOPICALLY 3X PER WEEK, # 120 mL, 3 Refills, Maintenance, 12/27/21 19:30:00 EDT, [id number], 30, APPLY 1 APPLICATOR TOPICALLY 3X PER WEEK, 155, cm, 12/12/21 16:00:00 EDT, Height, 106.5, kg, 09/14/21 9:38:00 EDT... Start Date: 12/27/21 Status: Ordered loratadine 10 mg oral tablet 1, tablet, By Mouth, Daily, # 90 tablet, Refills 1, Tot. Refills 1, Maintenance, 11/01/21 15:19:00 EDT, Route to Pharmacy Electronically, [facility]/pharmacy #[id number], 155, cm, 09/28/21 12:06:00 EDT, [...] Refills, Soft Stop, 07/27/20 11:50:00 EDT, Cream, [facility], 1 applicationTopically Once,Instr:to skin head to feet, remove b... Start Date: 07/27/20 Status: Ordered predniSONE 10 mg oral tablet See Instructions, May fill 03/03/22 and weekly on Fridays for 3 weeks, # 14 tablet, 2 Refills, 03/01/22 11:51:00 EST, [facility], 155, cm, 01/23/22 14:00:00 EST, Height, 106.5, kg, 09/14/21 9:38:00 EDT, Dry Weight Start Date: 03/01/22 Status: Ordered selenium sulfide 2.5% topical lotion See Instructions, APPLY TOPICALLY TO AFFECTED AREA EVERY DAY FOR 7 DAYS, # 120 mL, 3 Refills, Soft Stop, 10/26/21 15:43:00 EDT, [facility], 7, APPLY TOPICALLY TO AFFECTED AREA EVERY DAY FOR 7 DAYS, 155, cm, 09/28/21 12:06:00 EDT, H... Start Date: 10/26/21 Status: Ordered tiZANidine 2 mg oral tablet 1, tablet, By Mouth, 3 times a day, # 60 tablet, Refills 0, Route to Pharmacy Electronically, [id number], 155, cm, 05/03/21 14:39:00 EST, Height, 95.9, kg, 12/05/20 10:08:00 EDT, Dry Weight Start Date: 05/09/21 Status: Ordered traMADol 50 mg oral tablet 1 tablet = 50 mg, By Mouth, Every 8 hours, PRN Pain , Severe, for 7 days, May fill 03/03/22 and weekly on Fridays for 3 weeks, # 21 tablet, 2 Refills, Acute 03/22/22 11:51:00 EST, 03/01/22 11:51:00 EST, Tablet, [facility], Partial... Start Date: 03/01/22 Stop Date: 03/22/22 Status: Ordered Problem List Condition Confirmation Course Effective Dates Status H ealth Status Informant Anxiety Confirmed Active Opioid type dependence, continuous 1 Confirmed Active Osteoarthritis of left knee Confirmed Active Psoriasis Confirmed Active Severe obesity Confirmed Active 1Client had been seen by Jazz Francois at [facility]. Client has no-showed to last [...] Personnel Name: Ilya De Leon MD Position: [facility] Primary Care Physician Member Role: PCP Address: Address: [address] [place] [id number]- Care Team Related Persons Name: JD ALVAREZ Address: home [address] [place] [id number]
--- OUTSIDE RECORDS SUMMARY | 2022-11-03 10:39 | XMS_ITS | Continuity of Care Document ---
Author Name Unknown Organization [facility] Address Unknown Care Team Providers Care Land Sales Agent Name Role Phone Haley NEWMAN, Ilya Primary Care Physician Encounter [facility] Date(s): 05/09/21 - 06/08/21 [facility] Allergies, Adverse Reactions, Alerts Substance Reaction Severity Status penicillin Rash Active aspirin Ibuprofen tight throat Rash Active Reglan Agitated Active trimethoprim-sulfamethoxazole DS 1 Carolyn sears Hives 17-MAY-2013 07:29:57<$> Unknown Active Imitrex Chest pain Active morphine HAND SWELLING [...] FLUVIRIN MULTIDOSE ADMINISTERED AT [facility] Medications capsaicin 0.025% topical cream See Instructions, APPLY TO AFFECTED AREA TWICE A DAY, # 60 Gm, 1 Refills, [id number], 30, APPLY TO AFFECTED AREA TWICE A DAY, 155, cm, 05/30/21 15:34:00 EDT, Height, 95.9, kg, 12/05/20 10:08:00 EDT, Dry Weight Start Date: 05/31/21 Status: Ordered Cavilon Emollient topical cream 1 application, Topically, 2 times a day, PRN for dry skin, # 454 Gm, 1 Refills, Maintenance, 09/30/19 16:26:00 EDT, Cream, [facility], 1 application Topically 2 times a day,PRN:for dry skin, 158, cm, 08/27/19 13:02:00 EDT, Height, 76, kg... Start Date: 09/30/19 Status: Ordered Claritin 10 mg oral tablet 10 mg, 1, tablet, By Mouth, Daily, # 15 tablet, Refills 3, Tot. Refills 3, Maintenance, 05/03/21 15:42:00 EST, Route to Pharmacy Electronically, [facility]/pharmacy #[id number], 155, cm, 05/03/21 14:39:00 EST, Height, 95.9, kg, 12/05/20 10:08:00 EDT, Dry Weight Start Date: 05/03/21 Status: Ordered clonazePAM 0.5 mg oral tablet 1 tablet = 0.5 mg, By Mouth, Daily, # 14 tablet, 0 Refills, Maintenance, 05/30/21 12:57:00 EDT, Tablet, [facility]/pharmacy #[id number], ASSISTANT CROSS COUNTRY COACH reviewed, covering for Dr. De Leon, 155, cm, 05/03/21 14:39:00 EST, Height, 95.9, kg, 12/05/20 10:08:00 EDT, Dry Weight Start Date: 05/30/21 Stop Date: 06/13/21 Status: Ordered Dovonex 0.005% topical cream 1 applicator, Topically, 2 times a day, # 60 Gm, 5 Refills, Maintenance, 07/07/19 17:30:00 EDT, [facility], 1 applicator Topically 2 times a day,x30 days, 158, cm, 12/24/18 10:25:00 EDT, Height, 76, kg, 04/12/19 15:31:00 EST, Dry Weight Start Date: 07/07/19 Stop Date: 01/03/20 Status: Ordered fluticasone 50 mcg/inh nasal spray 1 sprays, Nares, Both, 2 times a day, in each nostril. for allergies, # 16 Gm, 0 Refills, Maintenance, 04/27/20 14:35:00 EST, [place], [facility], Partial fill upon patient request if theprescription is for a schedule II opioid drug., 1... Start Date: 04/27/20 Stop Date: 05/27/20 Status: Ordered furosemide 20 mg oral tablet 1, tablet, By Mouth, Daily, # 30 tablet, Refills 3, Tot. Refills 3, Maintenance, 04/18/21 12:11:00 EST, Route to Pharmacy Electronically, [facility]/pharmacy #[id number], 155, cm, 04/18/21 10:12:00 EST, Height, 95.9, kg, 12/05/20 10:08:00 EDT, Dry Weight Start Date: 04/18/21 Status: Ordered halobetasol 0.05% topical ointment See Instructions, APPLY A THIN FILM TO THE AFFECTED SKIN AND RUB IN GENTLY AND COMPLETELY TWICE A DAY, # 50 Gm, 1 Refills, [facility], 30, APPLY A THIN FILM TO THE AFFECTED SKIN AND RUB IN GENTLY AND COMPLETELY TWICE A DAY, 155, cm, 12/05/20 10:0... Start Date: 03/15/21 Status: Ordered ketoconazole 2% topical shampoo See Instructions, APPLY 1 APPLICATOR TOPICALLY 3X PER WEEK, # 120 mL, 3 Refills, [facility] [address]44, 30, APPLY 1 APPLICATOR TOPICALLY 3X PER WEEK, 155, cm, 03/17/21 7:53:00 EST, Height, 95.9, kg, 12/05/20 10:08:00 EDT, Dry Weight Start Date: 03/21/21 Status: Ordered Methadone By Mouth, 0 Refills, Maintenance Start Date: 12/25/11 Status: Ordered mupirocin 2% topical cream 1 application, Topically, 3 times a day, # 30 Gm, 2 Refills, Maintenance, 03/08/21 10:26:00 EST, Cream, [facility]/pharmacy #[id number], Partial fill upon patient request if the prescription is for a schedule II opioid drug., 1 application Topically 3 times a day,... Start Date: 03/08/21 Status: Ordered permethrin 5% topical cream 1 application, Topically, Once, to skin head to feet, remove by washing after 8 to 14 hours, # 60 Gm, 0 Refills, Soft Stop, 07/27/20 11:50:00 EDT, Cream, [facility], 1 applicationTopically Once,Instr:to skin head to feet, remove b... Start Date: 07/27/20 Status: Ordered predniSONE 10 mg oral tablet 1 tablet, By Mouth, Daily, please fill early, may fill 06/03, # 14 tablet, 0 Refills, 05/31/21 8:50:00 EDT, [facility]/pharmacy #[id number], 155, cm, 05/30/21 15:34:00 EDT, Height, 95.9, kg, 12/05/20 10:08:00 EDT,Dry Weight Start Date: 05/31/21 Status: Ordered selenium sulfide 2.5% topical lotion See Instructions, APPLY TOPICALLY TO AFFECTED AREA EVERY DAY FOR 7 DAYS, # 120 mL, 3 Refills, Soft Stop, 04/26/21 18:07:00 EST, [facility]/pharmacy #[id number], 7, APPLY TOPICALLY TO AFFECTED AREA EVERY DAY FOR 7DAYS, 155, cm, 04/18/21 10:12:00 EST, Height, 95.9,... Start Date: 04/26/21 Status: Ordered tiZANidine 2 mg oral tablet 1, tablet, By Mouth, 3 times a day, # 60 tablet, Refills 0, Route to Pharmacy Electronically, [facility] [id number], 155, cm, 05/03/21 14:39:00 EST, Height, 95.9, kg, 12/05/20 10:08:00 EDT, Dry Weight Start Date: 05/09/21 Status: Ordered Problem List Condition Effective Dates Status Health Status Inform ant Anxiety(Confirmed) Active Opioid type dependence, continuous(Confirmed) 1 Active Osteoarthritis of left knee(Confirmed) Active Psoriasis(Confirmed) Active Severe obesity(Confirmed) Active 1Client had been seen by Jazz Francois at [facility]. Client has no-showed to last appt and today.She will be targetted for closing if she does not responde to correspondence that will be sent on 02/14/13 Social History Social History Type Response Smoking Status 10 or more cigarette s (1/2 pack or more)/day in last 30 days entered on: 04/18/21 Sex
--- OUTSIDE RECORDS SUMMARY | 2022-11-03 10:39 | XMS_ITS | Continuity of Care Document ---
Author Name Unknown Organization [facility] ter Address [address] [place] [id number]- Care Team Providers Care Electrician Supervisor Name Role Phone Ilya De Leon MD Primary Care Physician [place] [facility] [place] 05/14/[address] [address]- Encounter Diagnosis Osteoarthritis(Final) - 05/14/21 Discharge Disposition: A-D/C Home Attending Physician: Zi Ford MD Admitting Physician: Zi Ford MD Referring Physician: Not on Staff, Referring [...] influenza virus vaccine, inactivated 2 01/30/11 Gi lizbteh 1Admin Note: ADMIN BY [facility] 2Admin Note: FLUVIRIN MULTIDOSE ADMINISTERED AT [facility] Medications Cavilon Emollient topical cream 1 application, Topically, 2 times a day, PRN for dry skin, # 454 Gm, 1 Refills, Maintenance, 09/30/19 16:26:00 EDT, Cream, [facility], 1 application Topically 2 times a day,PRN:for dry skin, 158, cm, 08/27/19 13:02:00 EDT, Height, 76, kg... Start Date: 09/30/19 Status: Ordered Claritin 10 mg oral tablet 10 mg, 1, tablet, By Mouth, Daily, # 15 tablet, Refills 3, Tot. 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 De Leon, 155, cm, 04/18/21 10:12:00 EST, Height, 95.9, kg, 12/05/20 10:08:00 EDT,... Start Date: 05/01/21 Stop Date: 05/15/21 Status: Ordered Dovonex 0.005% topical cream 1 applicator, Topically, 2 times a day, # 60 Gm, 5 Refills, Maintenance, 07/07/19 17:30:00 EDT, [facility], 1 applicator Topically 2 times a day,x30 days, 158, cm, 12/24/18 10:25:00 EDT, Height, 76, kg, 04/12/19 15:31:00 EST, Dry Weight Start Date: 07/07/19 Stop Date: 01/03/20 Status: Ordered fluticasone 50 mcg/inh nasal spray 1 sprays, Nares, Both, 2 times a day, in each nostril. for allergies, # 16 Gm, 0 Refills, Maintenance, 04/27/20 14:35:00 EST, [place], [facility], Partial fill upon patient request if theprescription is for a schedule II opioid drug., 1... Start Date: 04/27/20 Stop Date: 05/27/20 Status: Ordered furosemide 20 mg oral tablet 1, tablet, By Mouth, Daily, # 30 tablet, Refills 3, Tot. Refills 3, Maintenance, 04/18/21 12:11:00 EST, Route to Pharmacy Electronically, [facility]/pharmacy #[id number], 155, cm, 04/18/21 10:12:00 EST, Height, 95.9, kg, 12/05/20 10:08:00 EDT, Dry Weight Start Date: 04/18/21 Status: Ordered halobetasol 0.05% topical ointment See Instructions, APPLY A THIN FILM TO THE AFFECTED SKIN AND RUB IN GENTLY AND COMPLETELY TWICE A DAY, # 50 Gm, 1 Refills, [facility] [id number], 30, APPLY A THIN FILM TO THE AFFECTED SKIN AND RUB IN GENTLY AND COMPLETELY TWICE A DAY, 155, cm, 12/05/20 10:0... Start Date: 03/15/21 Status: Ordered ketoconazole 2% topical shampoo See Instructions, APPLY 1 APPLICATOR TOPICALLY 3X PER WEEK, # 120 mL, 3 Refills, [id number], 30, APPLY 1 APPLICATOR TOPICALLY 3X PER WEEK, 155, cm, 03/17/21 7:53:00 EST, Height, 95.9, kg, 12/05/20 10:08:00 EDT, Dry Weight Start Date: 03/21/21 Status: Ordered Methadone By Mouth, 0 Refills, Maintenance Start Date: 12/25/11 Status: Ordered mupirocin 2% topical cream 1 application, Topically, 3 times a day, # 30 Gm, 2 Refills, Maintenance, 03/08/21 10:26:00 EST, Cream, [facility]/pharmacy #[id number], Partial fill upon patient request if the prescription is for a schedule II opioid drug., 1 application Topically 3 times a day,... Start Date: 03/08/21 Status: Ordered permethrin 5% topical cream 1 application, Topically, Once, to skin head to feet, remove by washing after 8 to 14 hours, # 60 Gm, 0 Refills, Soft Stop, 07/27/20 11:50:00 EDT, Cream, [facility], 1 applicationTopically Once,Instr:to skin head to feet, remove b... Start Date: 07/27/20 Status: Ordered predniSONE 10 mg oral tablet 1 tablet = 10 mg, By Mouth, Daily, may fill 05/02/21, # 14 tablet, 0 Refills, Maintenance, 05/01/21 3:37:00 EST, [facility]/pharmacy #[id number], Partial fill upon patient request if the prescription is for a schedule II opioid drug., 155, cm, 04/18/21 10:12:00 EST... Start Date: 05/01/21 Stop Date: 05/15/21 Status: Ordered selenium sulfide 2.5% topical lotion See Instructions, APPLY TOPICALLY TO AFFECTED AREA EVERY DAY FOR 7 DAYS, # 120 mL, 3 Refills, Soft Stop, 04/26/21 18:07:00 EST, [facility]/pharmacy #[id number], 7, APPLY TOPICALLY TO AFFECTED AREA EVERY DAY FOR 7DAYS, 155, cm, 04/18/21 10:12:00 EST, Height, 95.9,... Start Date: 04/26/21 Status: Ordered tiZANidine 2 mg oral tablet 1, tablet, By Mouth, 3 times a day, # 60 tablet, Refills 0, Route to Pharmacy Electronically, [facility] [id number], 155, cm, 05/03/21 14:39:00 EST, Height, 95.9, [...] Exam Date Time Procedure Performing Provider Status 05/14/21 6:06 PM Knee 1 or 2 Views Left Lou Yanez; Auth (Verified) Notes: (Knee 1 or 2 Views Left) Reason For Exam: Pain RESULT: Knee 1 or 2 Views Left Knee 1 or 2 Views Left, 2 views . Hx of Present Illness: pt reports slip and fall today; Reason: Left knee pain; Clinical Question(s): Fracture COMPARISON: 2020. FINDINGS: There is no evidence of acute or healing fracture, dislocation or bone lesion. Moderate tricompartmental degenerative osteoarthritis, minimally increased compared to prior, but no evidence of osteochondral defect or intra-articular loose body. No evidence of joint effusion. IMPRESSION: Moderate tricompartmental degenerative osteoarthritis, minimally increased compared to prior, but no acute abnormality. I have personally reviewed the images and I agree with this report. WSN: [id number] Ordering Physician: Asa Aleman Dictated By: Jayce Crum MD Dictated Date/Time: 05/14/21 6:20 pm Reviewed By: Chemo Du MD Signed By: Chemo Du MD Signed Date/Time: 05/14/21 6:25 pm Transcribed By: MIRNA Transcribed Date/Time: 05/14/21 6:18 pm Vital Signs Most recent to oldest [Reference Range]: 1 2 3 Oxygen Saturation [94-100 %] 98 % (05/14/21 6:28 PM) 100 % (05/14/21 4:09 PM) 100 % (05/14/21 4:05 PM) Pulse Rate [55-90 bpm] 99 bpm *H* (05/14/21 6:28 PM) 97 bpm *H* (05/14/21 4:09 PM) 118 bpm *H* (05/14/21 4:05 PM) Blood Pressure [90-138/55-84 mm Hg] 113/61mm Hg (05/14/21 6:28 PM) 139/85mm Hg *H* (05/14/21 4:09 PM) Respiratory Rate [16-30 br/min] 19 br/min (05/14/21:28 PM) 20 br/min (05/14/21 4:09 PM) Temperature [96.8-100.4 DegF] 98 DegF (05/14/21 6:28 PM) 98 DegF (05/14/21 4:09 PM) Mode of Delivery (Oxygen) Room air (05/14/21 6:28 PM) Room air (05/14/21 4:09 PM) Room air (05/14/21 4:05 PM) Blood pressure sites Arm, right (05/14/21 6:28 PM) Arm, right (05/14/21 4:09 PM) Temperature Route Oral (05/14/21 6:28 PM) Oral (05/14/21 4:09 PM) Social History Social History Type Response Smoking Status 10 or more cigarette s (1/2 pack or more)/day in last 30 days entered on: 04/18/21 Sex
--- OUTSIDE RECORDS SUMMARY | 2022-11-03 10:39 | XMS_ITS | Continuity of Care Document ---
Author Name Unknown Organization [facility] Address [address] [place] [address]- Care Team Providers Care Quiller Runner Name Role Phone Ilya De Leon MD Primary Care Physician Encounter [facility] [place] Date(s): 05/24/22 - 06/23/22 [facility]/[address] [address]- [place] Allergies, Adverse Reactions, Alerts Substance Reaction [...] Maintenance, 06/29/21 15:10:00 EDT, ER Tablet, [id number], Partial fill upon patient request if the prescription is for a schedule II opioid drug., 155, cm, 05/30/21 15:34:... Start Date: 06/29/21 Status: Ordered capsaicin 0.025% topical cream See Instructions, APPLY TO AFFECTED AREA TWICE A DAY, # 60 Gm, 1 Refills, [id number], 30, APPLY TO AFFECTED AREA TWICE A DAY, 155, cm, 05/30/21 15:34:00 EDT, Height, 95.9, kg, 12/05/20 10:08:00 EDT, Dry Weight Start Date: 05/31/21 Status: Ordered Cavilon Emollient topical cream 1 application, Topically, 2 times a day, PRN for dry skin, # 454 Gm, 1 Refills, Maintenance, 09/30/19 16:26:00 EDT, Cream, [facility] 3, 1 application Topically 2 times a day,PRN:for dry skin, 158, cm, 08/27/19 13:02:00 EDT, Height, 76, kg... Start Date: 09/30/19 Status: Ordered clonazePAM 0.5 mg oral tablet 1 tablet = 0.5 mg, By Mouth, Daily at bedtime, May fill 06/16/22 and weekly on Fridays for 3 weeks, #7 tablet, 2 Refills, Maintenance, 06/14/22 11:37:00 EDT, Tablet, [facility], [facility] reviewed, covering for Dr. De Leon, 155, cm, 01/23... 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 De Leon, 155, cm, 01/10... Start Date: 05/24/22 Stop Date: 06/14/22 Status: Ordered clonazePAM 0.5 mg oral tablet 1 tablet = 0.5 mg, By Mouth, Daily at bedtime, May fill 04/14/22 and weekly on Fridays for3 weeks, # 7 tablet, 2 Refills, Maintenance, 04/13/22 10:13:00 EST, Tablet, [facility], PMPreviewed, covering for Dr. De Leon, 155, cm, ... Start Date: 04/13/22 Stop Date: 05/04/22 Status: Ordered coal tar topical 1% lotion See Instructions, applyTopically Daily at bedtime, # 120 mL, 3 Refills, Maintenance, 10/26/21 15:45:00 EDT, [facility], Partial fill upon patient request if the prescription is for a schedule II opioid drug., applyTopically Daily a... Start Date: 10/26/21 Status: Ordered Dovonex 0.005% topical cream 1 applicator, Topically, 2 times a day, # 60 Gm, 5 Refills, Maintenance, 05/24/22 12:41:00 EDT, [facility], 1 applicator Topically 2 times a day,x30 days, 155, cm, 01/23/22 14:00:00 EST, Height, 106.5, kg, 09/14/21 9:38:00 EDT, Dry... Start Date: 05/24/22 Stop Date: 11/20/22 Status: Ordered Eucerin Unscented topical lotion See Instructions, apply as frequently as needed, # 1 each, 0 Refills, Maintenance, 09/28/21 12:23:00 EDT, [facility], Partial fill upon patient request if the prescription is for a schedule II opioid drug., apply as frequently as n... Start Date: 09/28/21 Status: Ordered fluticasone 50 mcg/inh nasal spray 1 sprays, Nares, Both, 2 times a day, in each nostril. for allergies, # 16 Gm, 0 Refills, Maintenance, 04/27/20 14:35:00 EST, [place], [facility] 3, Partial fill upon patient request if theprescription is for a schedule II opioid drug., 1... Start Date: 04/27/20 Stop Date: 05/27/20 Status: Ordered halobetasol 0.05% topical ointment See Instructions, APPLY A THIN FILM TO THE AFFECTED SKIN AND RUB IN GENTLY AND COMPLETELY TWICE A DAY, # 50 Gm, 1 Refills, Maintenance, 10/26/21 15:44:00 EDT, [facility], 30, APPLY A THIN FILM TO THE AFFECTED SKIN AND RUB IN GENTLY... Start Date: 10/26/21 Status: Ordered ketoconazole 2% topical shampoo See Instructions, APPLY 1 APPLICATOR TOPICALLY 3X PER WEEK, # 120 mL, 3 Refills, Maintenance, 05/16/22 8:48:00 EST, [id number], 30, APPLY 1 APPLICATOR TOPICALLY 3X PER WEEK, 155, cm, 01/23/22 14:00:00 EST, Height, 106.5, kg, 09/14/21 9:38:00 EDT,... Start Date: 05/16/22 Status: Ordered loratadine 10 mg oral tablet 1, tablet, By Mouth, Daily, # 90 tablet, Refills 1, Maintenance, 05/23/22 16:24:00 EDT, Route to Pharmacy Electronically, [id number], 155, cm, 01/23/22 14:00:00 EST, Height, 106.5, kg, 09/14/21 9:38:00 EDT, Dry Weight Start Date: 05/23/22 Status: Ordered Methadone By Mouth, 0 Refills, Maintenance Start Date: 12/25/11 Status: Ordered mupirocin 2% topical cream 1 application, Topically, 3 times a day, # 30 Gm, 2 Refills, Maintenance, 03/08/21 10:26:00 EST, Cream, [facility][id number], Partial fill upon patient request if the prescription is for a schedule II opioid drug., 1 application Topically 3 times a day,... Start Date: 03/08/21 Status: Ordered permethrin 5% topical cream 1 application, Topically, Once, to skin head to feet, remove by washing after 8 to 14 hours, # 60 Gm, 0 Refills, Soft Stop, 07/27/20 11:50:00 EDT, Cream, [facility], 1 applicationTopically Once,Instr:to skin head to feet, remove b... Start Date: 07/27/20 Status: Ordered predniSONE 10 mg oral tablet See Instructions, May fill 06/16/22 and weekly on Fridays for 3 weeks, # 14 tablet, 2 Refills, 06/14/22 11:37:00 EDT, [facility], 155, cm, 01/23/22 14:00:00 EST, Height, 106.5, kg, 09/14/21 9:38:00 EDT, Dry Weight Start Date: 06/14/22 Status: Ordered predniSONE 10 mg oral tablet See Instructions, May fill 05/26/22 and weekly on Fridays for 3 weeks, # 14 tablet, 2 Refills, 05/24/22 10:44:00 EDT, [facility], 155, cm, 01/23/22 14:00:00 EST, Height, 106.5, kg,09/14/21 9:38:00 EDT, Dry Weight Start Date: 05/24/22 Status: Ordered predniSONE 10 mg oral tablet See Instructions, May fill and weekly on Fridays for 3 weeks, # 14 tablet, 2 Refills, 04/13/22 10:13:00 EST, [facility], 155, cm, 01/23/22 14:00:00 EST, Height, 106.5, kg,09/14/21 9:38:00 EDT, Dry Weight Start Date: 04/13/22 Status: Ordered selenium sulfide 2.5% topical lotion See Instructions, APPLY TOPICALLY TO AFFECTED AREA EVERY DAY FOR 7 DAYS, # 120 mL, 3 Refills, Soft Stop, 10/26/21 15:43:00 EDT, [facility], 7, APPLY TOPICALLY TO AFFECTED AREA EVERY DAY FOR 7 DAYS, 155, cm, 09/28/21 12:06:00 EDT, H... Start Date: 10/26/21 Status: Ordered tiZANidine 2 mg oral tablet 1, tablet, By Mouth, 3 times a day, # 60 tablet, Refills 0, Route to Pharmacy Electronically, [id number], 155, cm, 05/03/21 14:39:00 EST, Height, 95.9, kg, 12/05/20 10:08:00 EDT, Dry Weight Start Date: 05/09/21 Status: Ordered traMADol 50 mg oral tablet 1 tablet = 50 mg, By Mouth, Every 8 hours, PRN Pain , Severe, for 7 days, May fill 06/16/22 and weekly on Fridays for 3 weeks, # 21 tablet, 2 Refills, Acute 07/05/22 11:37:00 EDT, 06/14/22 11:37:00 EDT, Tablet, [facility] [place], Partial f... Start Date: 06/14/22 Stop Date: [...] Personnel Name: Ilya De Leon MD Position: [facility] Primary Care Physician Member Role: PCP Address: Address: [address] [place] [id number]- Care Team Related Persons Name: JD ALVAREZ Address: [address] [place] [id number]
--- OUTSIDE RECORDS SUMMARY | 2022-11-03 10:39 | XMS_ITS | Continuity of Care Document ---
Author Name Unknown Organization [facility] Address Unknown Care Team Providers Care Dam Tender Assistant Name Role Phone Haley NEWMAN, Ilya Primary Care Physician Encounter [facility] Date(s): 03/02/21 - 04/01/21 [facility] Allergies, Adverse Reactions, Alerts Substance Reaction [...] MULTIDOSE ADMINISTERED AT [facility] Medications capsaicin 0.025% topical cream See Instructions, APPLY TO AFFECTED AREA TWICE A DAY, # 60 Gm, 0 Refills, [id number], 30, APPLY TO AFFECTED AREA TWICE A DAY, 155, cm, 03/17/21 7:53:00 EST, Height, 95.9, kg, 12/05/20 10:08:00 EDT, Dry Weight Start Date: 03/21/21 Status: Ordered Cavilon Emollient topical cream 1 application, Topically, 2 times a day, PRN for dry skin, # 454 Gm, 1 Refills, Maintenance, 09/30/19 16:26:00 EDT, [facility], 1 application Topically 2 times a day,PRN:for dry skin, 158, cm, 08/27/19 13:02:00 EDT, Height, 76, kg... Start Date: 09/30/19 Status: Ordered cetirizine 10 mg oral tablet 1 tablet = 10 mg, By Mouth, Daily, # 30 tablet, 0 Refills, Maintenance, 12/03/20 13:44:00 EDT, Tablet, [facility] #[id number], Partial fill upon patient request if the prescription is for a schedule II opioid drug., 158, cm, 12/03/20 13:27:00 EDT, Height,... Start Date: 12/03/20 Status: Ordered Claritin 10 mg oral tablet 10 mg, 1, tablet, By Mouth, Daily, # 15 tablet, Refills 3, Tot. Refills 3, Maintenance, 11/06/18 8:33:38 EDT, Route to Pharmacy Electronically, [id number], [facility] Start Date: 11/06/18 Status: Ordered clindamycin 150 mg oral capsule See Instructions, 3 capsultes 3 times a day, # 45 capsule, 0 Refills, Acute 01/20/22 14:53:00 EST, 03/17/21 14:50:00 EST, Capsule, [facility], Partial fill upon patient request ifthe prescription is for a schedule II opioid drug.,... 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 Start Date: 03/26/21 Stop Date: 04/02/21 Status: Ordered diphenhydrAMINE 25 mg oral tablet 1 tablet = 25 mg, By Mouth, 3 times a day, PRN as needed for itching, Will cause drowsiness, # 30 tablet, 0 Refills, Maintenance, 07/16/20 15:11:00 EDT, Tablet, [facility], Partial fill upon patient request if the prescription is f... Start Date: 07/16/20 Status: Ordered Dovonex 0.005% topical cream 1 applicator, Topically, 2 times a day, # 60 Gm, 5 Refills, Maintenance, 07/07/19 17:30:00 EDT, [facility] 3, 1 applicator Topically 2 times a [...] Gm, 0 Refills, Maintenance, 04/27/20 14:35:00 EST, [place], [facility] 3, Partial fill upon patient request if theprescription is for a schedule II opioid drug., 1... Start Date: 04/27/20 Stop Date: 05/27/20 Status: Ordered furosemide 20 mg oral tablet 1, tablet, By Mouth, Daily, # 30 tablet, Refills 3, Tot. Refills 3, Maintenance, 01/20/21 12:45:00 EST, Route to Pharmacy Electronically, [facility] #[id number], 155, cm, 12/05/20 10:08:00 EDT, Height, 95.9, kg, 12/05/20 10:08:00 EDT, Dry Weight Start Date: 01/20/21 Status: Ordered halobetasol 0.05% topical ointment See Instructions, APPLY A THIN FILM TO THE AFFECTED SKIN AND RUB IN GENTLY AND COMPLETELY TWICE A DAY, # 50 Gm, 1 Refills, [id number], 30, APPLY A THIN FILM TO THE AFFECTED SKIN AND RUB IN GENTLY AND COMPLETELY TWICE A DAY, 155, cm, 12/05/20 10:0... Start Date: 03/15/21 Status: Ordered hydrocortisone 1% topical cream 1 application, Topically, 2 times a day, Apply to rash areas, # 60 Gm, 3 Refills, Maintenance, 06/04/19 14:52:00 EDT, Cream, [facility], 1 application Topically 2 times a day,Instr:Apply to rash areas, 158, cm, 12/24/18 10:25:00 EDT, [place]i... Start Date: 06/04/19 Status: Ordered ketoconazole 2% topical shampoo See Instructions, APPLY 1 APPLICATOR TOPICALLY 3X PER WEEK, # 120 mL, 3 Refills, [id number], 30, APPLY 1 APPLICATOR TOPICALLY 3X PER [...] a day,... Start Date: 03/08/21 Status: Ordered [place] 0.65% nasal spray 2 sprays, Nares, Both, 4 times a day, # 1 each, 0 Refills, Maintenance, 12/03/20 13:46:00 EDT, [id number], Partial fill upon patient request [...] Stop, 07/27/20 11:50:00 EDT, Cream, [facility], 1 applicationTopically Once,Instr:to skin head to feet, remove b... Start Date: 07/27/20 Status: Ordered predniSONE 20 mg oral tablet 2 tablet = 40 mg, By Mouth, Daily, for 6 days, # 12 tablet, 0 Refills, Acute 04/05/21 9:55:00 EST, 03/30/21 9:55:00 EST, [id number] fill upon patient request if the prescription is for a schedule II opioid drug., 155, cm, 03/12... Start Date: 03/30/21 Stop Date: 04/05/21 Status: Ordered selenium sulfide 2.5% topical lotion See Instructions, APPLY TOPICALLY TO AFFECTED AREA EVERY DAY FOR 7 DAYS, # 120 mL, 3 Refills, Soft Stop, 03/08/21 10:26:00 EST, [facility] #[id number], 7, APPLY TOPICALLY TO AFFECTED AREA EVERY DAY FOR 7DAYS, 155, cm, 12/05/20 10:08:00 EDT, Height, 95.9,... Start Date: 03/08/21 Status: Ordered Shingrix intramuscular injection = 0.5 mL, Intramuscular, Once, repeat dose in 2 to 6 months, # 2 each, 0 Refills, Soft Stop, 05/27/20 11:03:00 EDT, Powder, [facility], Partial fill upon patient request if [...] 1 Refills, Maintenance, 03/10/20 18:21:00 EST, Cream, [facility], Partial fill upon patient request if the prescription is fora schedule II opioid drug., 1 application Topically... Start Date: 03/10/20 Status: Ordered Problem List Condition Effective Dates Status Health Status Inform ant Anxiety(Confirmed) Active Opioid type dependence, continuous(Confirmed) 1 Active Osteoarthritis of left knee(Confirmed) Active Psoriasis(Confirmed) Active Severe obesity(Confirmed) Active 1Client had been seen by Jazz Francois at [facility]. Client has no-showed to last appt and today.She will be targetted for closing if she does not responde to correspondence that will be sent on 02/14/13 Social History Social History Type Response Smoking Status 5-9 cigarettes (betw een 1/4 to 1/2 pack)/day in last 30 days entered on: 09/08/20 Sex
--- OUTSIDE RECORDS SUMMARY | 2022-11-03 10:39 | XMS_ITS | Continuity of Care Document ---
Author Name Unknown Organization [facility] Address [address] [place] [address]- Care Team Providers Care Taxicab Dispatcher Name Role Phone Ilya De Leon MD Primary Care Physician [place] [facility] [place] [facility] [address] [place] [address]- Attending Physician: Renuka Mg MD Referring Physician: [...] FLUVIRIN MULTIDOSE ADMINISTERED AT [facility] Medications Cavilon Emollient topical cream 1 application, Topically, 2 times a day, PRN for dry skin, # 454 Gm, 1 Refills, Maintenance, 09/30/19 16:26:00 EDT, Cream, [facility], 1 application Topically 2 times a day,PRN:for dry skin, 158, cm, 08/27/19 13:02:00 EDT, Height, 76, kg... Start Date: 09/30/19 Status: Ordered cetirizine 10 mg oral tablet 1 tablet = 10 mg, By Mouth, Daily, for allergies. Do NOT take with claritin, # 30 tablet, 0 Refills, Maintenance, 04/27/20 14:41:00 EST, Tablet, [facility], Partial fill upon patient request if the prescription is for a schedule II opioi... Start Date: 04/27/20 Stop Date: 05/27/20 Status: Ordered Claritin 10 mg oral tablet 10 mg, 1, tablet, By Mouth, Daily, # 15 tablet, Refills 3, Tot. Refills 3, Maintenance, 11/06/18 8:33:38 EDT, Route to Pharmacy Electronically, [id number], [facility] Start Date: 11/06/18 Status: Ordered clobetasol 0.05% topical ointment 1 application, Topically, 2 times a day, PRN Itch, for 14 days, apply a thin film to highly itchy/uncomfortable areas only, # 60 Gm, 0 Refills, Acute 05/11/20 14:36:00 EST, 04/27/20 14:36:00 EST, Ointment, [facility], Partial fill upon p... Start Date: 04/27/20 Stop Date: 05/11/20 Status: Ordered clobetasol 0.05% topical solution 1 application, Topically, Every Sunday, Sunday and Sunday, for 14 days, Apply a small amount to scalp and rub in with fingertips. Do not shampoo for 12 hours, # 50 mL, 1 Refills, Acute 05/25/20 14:35:00 EDT, 04/27/20 14:35:00 EST, Solution, [facility]... Start Date: 04/27/20 Stop Date: 05/25/20 Status: Ordered Dovonex 0.005% topical cream 1 applicator, Topically, 2 times a day, # 60 Gm, 5 Refills, Maintenance, 07/07/19 17:30:00 EDT, [facility], 1 applicator Topically 2 [...] Gm, 0 Refills, Maintenance, 04/27/20 14:35:00 EST, [place], [facility], Partial fill upon patient request if theprescription is for a schedule II opioid drug., 1... Start Date: 04/27/20 Stop Date: 05/27/20 Status: Ordered hydrocortisone 1% topical cream 1 application, Topically, 2 times a day, Apply to rash areas, # 60 Gm, 3 Refills, Maintenance, 06/04/19 14:52:00 EDT, Cream, [facility], 1 application [...] 0 Refills, Soft Stop, 05/04/20 9:55:00 EST, [facility], 158, cm, 04/12... Start Date: 05/04/20 Status: Ordered Medrol Dosepak 4 mg oral tablet per label intructions, By Mouth, Once, as on label, # 1 each, 0 Refills, Soft Stop, 08/11/19 20:08:00 EDT, [facility], 158, cm, 12/24/18 10:25:00 EDT, [...] Topically 3x per week, # 120 mL, 1 Refills, Soft Stop, 04/28/20 14:58:00 EST, [facility], 1 applicator Topically 3x per week, 158, cm, 04/27/20 13:51:00 EST, Height, 76, kg, 04/12/19 15:31:00 EST, Dry Weight Start Date: 04/28/20 Status: Ordered permethrin 5% topical cream 1 application, Topically, Once, to skin head to feet, remove by washing after 8 to 14 hours, # 60 Gm, 0 Refills, Soft Stop, 08/08/18 15:08:37 EDT, Cream Start Date: 08/08/18 Status: Ordered selenium sulfide 2.5% topical lotion See Instructions, APPLY TOPICALLY TO AFFECTED AREA EVERY DAY FOR 7 DAYS, # 120 mL, 3 Refills, Maintenance, [facility], 7, APPLY TOPICALLY TO AFFECTED AREA [...] 1 Refills, Maintenance, 03/10/20 18:21:00 EST, Cream, [facility], Partial fill [...] 0 Refills, Maintenance, 04/06/19 20:19:00 EST, Tablet, [facility], 158, cm, 12/24/18 10:25:00 EDT, [...] oldest [Reference Range]: 1 Height 158 cm (04/27/20 1:51 PM) Oxygen Saturation [94-100 %] 98 % (04/27/20 1:51 PM) Pulse Rate [55-90 bpm] 80 bpm (04/27/20 1:51 PM) Blood Pressure [90-138/55-84 mm Hg] 115/ 70mm Hg (04/27/20 1:51 PM) Respiratory Rate [16-30 br/min] 20 br/mi n (04/27/20 1:51 PM) Temperature [96.8-100.4 DegF] 97.6 DegF (04/27/20 1:51 PM) Blood pressure sites Arm, left (04/27/20 1:51 PM) Temperature Route Temporal (04/27/20 1:51 PM) Social History Social History Type Response Tobacco Use: 4 or less cigar ettes(less than 1/4 pack)/day in last 30 days. Sex
--- OUTSIDE RECORDS SUMMARY | 2022-11-03 10:39 | XMS_ITS | Continuity of Care Document ---
Author Name Unknown Organization [facility] Address [address] [place] [address]- Care Team Providers Care Comp Field Case Manager Name Role Phone Ilya De Leon MD Primary Care Physician Encounter [facility] [place] Date(s): 09/24/20 - 10/24/20 [facility] [address] [place] [address]- Allergies, Adverse Reactions, Alerts Substance Reaction Severity [...] 11:44:00 EDT, 09/24/20 11:43:00 EDT, Tablet, [id number], Partial fill u... Start Date: 09/24/20 Stop Date: 12/26/20 Status: Ordered Cavilon Emollient topical cream 1 application, Topically, 2 times a day, PRN for dry skin, # 454 Gm, 1 Refills, Maintenance, 09/30/19 16:26:00 EDT, Cream, [facility] 3, 1 application Topically 2 times a day,PRN:for dry skin, 158, cm, 08/27/19 13:02:00 EDT, Height, 76, kg... Start Date: 09/30/19 Status: Ordered cetirizine 10 mg oral tablet 1 tablet = 10 mg, By Mouth, Daily, for allergies. Do NOT take with claritin, # 30 tablet, 0 Refills, Maintenance, 07/23/20 11:37:00 EDT, Tablet, [facility], Partial fill upon patient request if the prescription is for a schedule II... Start Date: 07/23/20 Stop Date: 08/22/20 Status: Ordered Claritin 10 mg oral tablet 10 mg, 1, tablet, By Mouth, Daily, # 15 tablet, Refills 3, Tot. Refills 3, Maintenance, 11/06/18 8:33:38 EDT, Route to Pharmacy Electronically, [id number], [facility] Start Date: 11/06/18 Status: Ordered clonazePAM 0.5 mg oral tablet 1 tablet = 0.5 mg, By Mouth, Daily, # 28 tablet, 0 Refills, Maintenance, 10/18/20 11:03:00 EDT, Tablet, [facility], Partial fill upon patient request if the prescription is for a schedule II opioid drug., 158, cm, 10/18/20 10:46:00... Start Date: 10/18/20 Status: Ordered clonazePAM 0.5 mg oral tablet 1 tablet = 0.5 mg, By Mouth, Daily, # 1 tablet, 0 Refills, Maintenance, 10/17/20 9:00:00 EDT, Tablet, [facility] 3, Partial fill upon patient [...] 0 Refills, Maintenance, 07/16/20 15:11:00 EDT, Tablet, [facility], Partial fill upon patient request if the prescription is f... Start Date: 07/16/20 Status: Ordered Dovonex 0.005% topical cream 1 applicator, Topically, 2 times a day, # 60 Gm, 5 Refills, Maintenance, 07/07/19 17:30:00 EDT, [facility] 3, 1 applicator Topically 2 [...] Gm, 0 Refills, Maintenance, 04/27/20 14:35:00 EST, [place], [facility] 3, Partial fill upon patient request if theprescription is for a schedule II opioid drug., 1... Start Date: 04/27/20 Stop Date: 05/27/20 Status: Ordered furosemide 20 mg oral tablet 1, tablet, By Mouth, Daily, # 30 tablet, Refills 3, Tot. Refills 0, Maintenance, 10/21/20 11:22:00 EDT, Route to Pharmacy Electronically, [id number], 158, cm, 10/18/20 10:46:00 EDT, Height, 95.4, kg, 10/16/20 10:11:00 EDT, Dry Weight Start Date: 10/21/20 Status: Ordered hydrocortisone 1% topical cream 1 application, Topically, 2 times a day, Apply to rash areas, # 60 Gm, 3 Refills, Maintenance, 06/04/19 14:52:00 EDT, Cream, [facility], [...] 12/26/20 11:39:00 EDT, 09/24/20 11:38:00 EDT, Ointment, [facility] #[id number], Partial fill [...] Refills, Soft Stop, 07/27/20 11:50:00 EDT, Cream, [facility], 1 applicationTopically Once,Instr:to skin head to feet, remove b... Start Date: 07/27/20 Status: Ordered predniSONE 5 mg oral tablet 1 tablet = 5 mg, By Mouth, 3 times a day, # 42 tablet, 0 Refills, Maintenance, 10/18/20 11:06:00 EDT, Tablet, [facility], Partial fill upon patient request if the prescription is for a schedule II opioid drug., 158, cm, 10/18/20 10... Start Date: 10/18/20 Stop Date: 11/01/20 Status: Ordered selenium sulfide 2.5% topical lotion See Instructions, APPLY TOPICALLY TO AFFECTED AREA EVERY DAY FOR 7 DAYS, # 120 mL, 3 Refills, Soft Stop, 07/23/20 11:40:00 EDT, [facility], 7, APPLY TOPICALLY TO AFFECTED AREA EVERY DAY FOR 7 DAYS, 158, cm, 07/23/20 11:13:00 EDT, H... Start Date: 07/23/20 Status: Ordered Shingrix intramuscular injection = 0.5 mL, Intramuscular, Once, repeat dose in 2 to 6 months, # 2 each, 0 Refills, Soft Stop, 05/27/20 11:03:00 EDT, Powder, [facility], Partial fill upon patient request [...] 03/10/20 18:21:00 EST, Cream, [facility], Partial fill [...] 0 Refills, Maintenance, 09/24/20 11:47:00 EDT, Gel, [facility]/pharmacy #[id number], 1 application Topically 4 times a day,Instr:for knee pain, 158, cm, 09/24/20 10:45:00 EDT, Height, 82, kg, 07/21/... Start Date: 09/24/20 Status: Ordered Problem List Condition Effective Dates Status Health Status Inform ant Opioid type dependence, continuous(Confirmed) 1 Active 1Client had been seen by Jazz Francois at [facility]. Client has no-showed to last appt and today.She will be targetted for closing if she does not responde to correspondence that will be sent on 02/14/13 Social History Social History Type Response Smoking Status 5-9 cigarettes (betw een 1/4 to 1/2 pack)/day in last 30 days entered on: 09/08/20 Sex
--- OUTSIDE RECORDS SUMMARY | 2022-11-03 10:39 | XMS_ITS | Continuity of Care Document ---
Author Name Unknown Organization [facility] Address [address] [place] [address]- Care Team Providers Care Cuff Turner Machine Operator Name Role Phone Ilya De Leon MD Primary Care Physician Encounter [facility] [place] Date(s): 08/08/22 - 09/07/22 [facility]/[address] [address]- [place] Allergies, Adverse Reactions, Alerts Substance Reaction [...] 02/06/10 Garrett rded 1Admin Note: ADMIN BY [facility] 2Admin Note: FLUVIRIN MULTIDOSE ADMINISTERED AT [facility] Medications acetaminophen 650 mg oral tablet, extended release 2 tablet = 1,300 mg, By Mouth, Every 8 hours, # 100 tablet, 1 Refills, Maintenance, 06/29/21 15:10:00 EDT, ER Tablet, [id number], Partial fill upon patient request if the prescription is for a schedule II opioid drug., 155, cm, 05/30/21 15:34:... Start Date: 06/29/21 Status: Ordered Cavilon Emollient topical cream 1 application, Topically, 2 times a day, PRN for dry skin, # 454 Gm, 1 Refills, Maintenance, 09/30/19 16:26:00 EDT, Cream, [facility] 3, 1 application Topically 2 times a day,PRN:for dry skin, 158, cm, 08/27/19 13:02:00 EDT, Height, 76, kg... Start Date: 09/30/19 Status: Ordered cetirizine 10 mg oral tablet, chewable 1 tablet = 10 mg, By Mouth, Daily, PRN for allergy symptoms, # 12 tablet, 4 Refills, Maintenance, 09/04/22 10:28:00 EDT, Chew Tablet, [facility], Partial fill upon patient request ifthe prescription is for a schedule II opioid drug.,... Start Date: 09/04/22 Stop Date: 10/24/22 Status: Ordered cholecalciferol 1000 intl units oral capsule 1 capsule = 25 mcg, By Mouth, Daily, vitamin D, # 100 capsule, 3 Refills, Maintenance, 07/24/22 13:10:00 EDT, Capsule, [facility]/pharmacy #[id number], Partial fill upon patient request if the prescription is fora schedule II opioid drug., 155, cm, 07/17/22 9:50:... Start Date: 07/24/22 Status: Ordered clonazePAM 0.5 mg oral tablet 1 tablet = 0.5 mg, By Mouth, 2 times a day, Increaseddose May weekly on Fridays for 4 weeks starting on 09/07, # 14 tablet, 3 Refills, Maintenance, 09/06/22 14:07:00 EDT, Tablet, [facility], [facility] reviewed, covering for Dr. De Leon, 1... Start Date: 09/06/22 Stop Date: 10/04/22 Status: Ordered clonazePAM 0.5 mg oral tablet 1 tablet = 0.5 mg, By Mouth, 2 times a day, Increaseddose May weekly on Fridays for 3 weeks starting on 07/21, # 14 tablet, 2 Refills, Maintenance, 07/19/22 12:38:00 EDT, Tablet, [facility], [facility] reviewed, covering for Dr. De Leon, 1... Start Date: 07/19/22 Stop Date: 08/09/22 Status: Ordered Dovonex 0.005% topical cream 1 applicator, Topically, 2 times a day, # 60 Gm, 5 Refills, Maintenance, 05/24/22 12:41:00 EDT, [facility], 1 applicator Topically 2 times a day,x30 days, 155, cm, 01/23/22 14:00:00 EST, Height, 106.5, kg, 09/14/21 9:38:00 EDT, Dry... Start Date: 05/24/22 Stop Date: 11/20/22 Status: Ordered Eucerin Unscented topical lotion See Instructions, apply as frequently as needed, # 1 each, 0 Refills, Maintenance, 09/28/21 12:23:00 EDT, [facility], Partial fill upon patient request if the prescription is for a schedule II opioid drug., apply as frequently as n... Start Date: 09/28/21 Status: Ordered fluticasone 50 mcg/inh nasal spray 1 sprays, Nares, Both, 2 times a day, in each nostril. for allergies, # 16 Gm, 0 Refills, Maintenance, 04/27/20 14:35:00 EST, [place], [facility] 3, Partial fill upon patient request if theprescription is for a schedule II opioid drug., 1... Start Date: 04/27/20 Stop Date: 05/27/20 Status: Ordered halobetasol 0.05% topical ointment See Instructions, APPLY A THIN FILM TO THE AFFECTED SKIN AND RUB IN GENTLY AND COMPLETELY TWICE A DAY, # 50 Gm, 1 Refills, Maintenance, 07/17/22 10:18:00 EDT, [facility], 30, APPLY A THIN FILM TO THE AFFECTED SKIN AND RUB IN GENTLY... Start Date: 07/17/22 Status: Ordered ketoconazole 2% topical shampoo See Instructions, APPLY 1 APPLICATOR TOPICALLY 3X PER WEEK, # 120 mL, 3 Refills, Maintenance, 05/16/22 8:48:00 EST, [id number], 30, APPLY 1 APPLICATOR TOPICALLY 3X PER WEEK, 155, cm, 01/23/22 14:00:00 EST, Height, 106.5, kg, 09/14/21 9:38:00 EDT,... Start Date: 05/16/22 Status: Ordered loratadine 10 mg oral tablet 1, tablet, By Mouth, Daily, # 30 tablet, Refills 5, Tot. Refills 5, Maintenance, 07/04/22 8:39:00 EDT, [id number], cm, 01/23/22 14:00:00 EST, Height, 106.5, kg, 09/14/21 9:38:00 EDT, Dry Weight Start Date: 07/04/22 Status: Ordered Methadone By Mouth, 0 Refills, Maintenance Start Date: 12/25/11 Status: Ordered mupirocin 2% topical cream 1 application, Topically, 3 times a day, # 30 Gm, 2 Refills, Maintenance, 03/08/21 10:26:00 EST, Cream, [id number] Partial fill upon patient request if the prescription is for a schedule II opioid drug., 1 application Topically 3 times a day,... Start Date: 03/08/21 Status: Ordered permethrin 5% topical cream 1 application, Topically, Once, to skin head to feet, remove by washing after 8 to 14 hours, # 60 Gm, 0 Refills, Soft Stop, 07/27/20 11:50:00 EDT, Cream, [facility], 1 applicationTopically Once,Instr:to skin head to feet, remove b... Start Date: 07/27/20 Status: Ordered predniSONE 5 mg oral tablet See Instructions, latest dosage 15 mg daily, now to take 5mg tablet, 3 daily. May fill Fridays starting 09/07/22, # 21 tablet, 3 Refills, Maintenance, 09/06/22 14:07:00 EDT, [facility], Partial fill upon patient request if the pres... Start Date: 09/06/22 Status: Ordered selenium sulfide 2.5% topical lotion See Instructions, APPLY TOPICALLY TO AFFECTED AREA EVERY DAY FOR 7 DAYS, # 120 mL, 3 Refills, Soft Stop, 10/26/21 15:43:00 EDT, [facility], 7, APPLY TOPICALLY TO AFFECTED AREA EVERY DAY FOR 7 DAYS, 155, cm, 09/28/21 12:06:00 EDT, H... Start Date: 10/26/21 Status: Ordered simvastatin 20 mg oral tablet 20 mg, 1, tablet, By Mouth, Daily at bedtime, for cholesterol, # 30 tablet, Refills 5, Tot. Refills5, Maintenance, 07/24/22 13:12:00 EDT, Route to Pharmacy Electronically, [facility]/pharmacy #[id number], Partial fill upon patient request if the prescription is f... Start Date: 07/24/22 Status: Ordered Problem List Condition Confirmation Course Effective Dates Status H ealth Status Informant Anxiety Confirmed Active Intermittent palpitations Confirmed Active Opioid type dependence, continuous 1 Confirmed Active Osteoarthritis of left knee Confirmed Active Primary osteoarthritis of left knee Confirmed Active Panic disorder Confirmed Active Psoriasis Confirmed Active Severe obesity Confirmed Active 1Client had been seen by Jazz Francois at [facility]. Client has no-showed to last appt [...] Primary Care Member Role: PCP Address: Address: [address] [place] [id number]- Care Team Related Persons Name: JD ALVAREZ Address: home [address] [place] [id number]
--- OUTSIDE RECORDS SUMMARY | 2022-11-03 10:39 | XMS_ITS | Continuity of Care Document ---
Author Name Unknown Organization [facility] Address [address] [place] [address]- Care Team Providers Care Chief Electrician Name Role Phone Ilya De Leon MD Primary Care Physician Encounter [facility] [place] Date(s): 04/05/22 - 05/05/22 [facility]/[address] [address]- [place] Allergies, Adverse Reactions, Alerts Substance Reaction [...] Maintenance, 06/29/21 15:10:00 EDT, ER Tablet, [id number], Partial fill upon patient request if the prescription is for a schedule II opioid drug., 155, cm, 05/30/21 15:34:... Start Date: 06/29/21 Status: Ordered capsaicin 0.025% topical cream See Instructions, APPLY TO AFFECTED AREA TWICE A DAY, # 60 Gm, 1 Refills, [id number], 30, APPLY TO AFFECTED AREA TWICE A DAY, 155, cm, 05/30/21 15:34:00 EDT, Height, 95.9, kg, 12/05/20 10:08:00 EDT, Dry Weight Start Date: 05/31/21 Status: Ordered Cavilon Emollient topical cream 1 application, Topically, 2 times a day, PRN for dry skin, # 454 Gm, 1 Refills, Maintenance, 09/30/19 16:26:00 EDT, Cream, [facility] 3, 1 application Topically 2 times a day,PRN:for dry skin, 158, cm, 08/27/19 13:02:00 EDT, Height, 76, kg... Start Date: 09/30/19 Status: Ordered clonazePAM 0.5 mg oral tablet 1 tablet = 0.5 mg, By Mouth, Daily at bedtime, May fill 04/14/22 and weekly on Fridays for3 weeks, # 7 tablet, 2 Refills, Maintenance, 04/13/22 10:13:00 EST, Tablet, [facility], PMPreviewed, covering for Dr. De Leon, 155, cm, 01/23/... Start Date: 04/13/22 Stop Date: 05/04/22 Status: Ordered clonazePAM 0.5 mg oral tablet 1 tablet = 0.5 mg, By Mouth, Daily at bedtime, May fill 05/04/22 and weekly on Fridays for 3 weeks, # 7 tablet, 2 Refills, Maintenance, 05/03/22 14:04:00 EST, Tablet, [facility], [employer]OD[employer] reviewed, covering for Dr. De Leon, 155, cm, 01/10... Start Date: 05/03/22 Stop Date: 05/24/22 Status: Ordered coal tar topical 1% lotion See Instructions, applyTopically Daily at bedtime, # 120 mL, 3 Refills, Maintenance, 10/26/21 15:45:00 EDT, [facility], Partial fill upon patient request if the prescription is for a schedule II opioid drug., applyTopically Daily a... Start Date: 10/26/21 Status: Ordered Dovonex 0.005% topical cream 1 applicator, Topically, 2 times a day, # 60 Gm, 5 Refills, Maintenance, 07/07/19 17:30:00 EDT, [facility] 3, 1 applicator Topically 2 times a day,x30 days, 158, cm, 12/24/18 10:25:00 EDT, Height, 76, kg, 04/12/19 15:31:00 EST, Dry Weight Start Date: 07/07/19 Stop Date: 01/03/20 Status: Ordered Eucerin Unscented topical lotion See Instructions, apply as frequently as needed, # 1 each, 0 Refills, Maintenance, 09/28/21 12:23:00 EDT, [facility], Partial fill upon patient request if the prescription is for a schedule II opioid drug., apply as frequently as n... Start Date: 09/28/21 Status: Ordered fluticasone 50 mcg/inh nasal spray 1 sprays, Nares, Both, 2 times a day, in each nostril. for allergies, # 16 Gm, 0 Refills, Maintenance, 04/27/20 14:35:00 EST, [place], [facility] 3, Partial fill upon patient request if theprescription is for a schedule II opioid drug., 1... Start Date: 04/27/20 Stop Date: 05/27/20 Status: Ordered halobetasol 0.05% topical ointment See Instructions, APPLY A THIN FILM TO THE AFFECTED SKIN AND RUB IN GENTLY AND COMPLETELY TWICE A DAY, # 50 Gm, 1 Refills, Maintenance, 10/26/21 15:44:00 EDT, [facility], 30, APPLY A THIN FILM TO THE AFFECTED SKIN AND RUB IN GENTLY... Start Date: 10/26/21 Status: Ordered ketoconazole 2% topical shampoo See Instructions, APPLY 1 APPLICATOR TOPICALLY 3X PER WEEK, # 120 mL, 3 Refills, Maintenance, 12/27/21 19:30:00 EDT, [id number], 30, APPLY 1 APPLICATOR TOPICALLY 3X PER WEEK, 155, cm, 12/12/21 16:00:00 EDT, Height, 106.5, kg, 09/14/21 9:38:00 EDT... Start Date: 12/27/21 Status: Ordered loratadine 10 mg oral tablet 1, tablet, By Mouth, Daily, # 90 tablet, Refills 1, Tot. Refills 1, Maintenance, 11/01/21 15:19:00 EDT, Route to Pharmacy Electronically, [facility]/pharmacy #[id number], 155, cm, 09/28/21 12:06:00 EDT, Height, 106.5, kg, 09/14/21 9:38:00 EDT, Dry Weight Start Date: 11/01/21 Status: Ordered Methadone By Mouth, 0 Refills, Maintenance Start Date: 12/25/11 Status: Ordered mupirocin 2% topical cream 1 application, Topically, 3 times a day, # 30 Gm, 2 Refills, Maintenance, 03/08/21 10:26:00 EST, Cream, [facility]/pharmacy #[id number], Partial fill upon patient request if the prescription is for a schedule II opioid drug., 1 application Topically 3 times a day,... Start Date: 03/08/21 Status: Ordered permethrin 5% topical cream 1 application, Topically, Once, to skin head to feet, remove by washing after 8 to 14 hours, # 60 Gm, 0 Refills, Soft Stop, 07/27/20 11:50:00 EDT, Cream, [facility], 1 applicationTopically Once,Instr:to skin head to feet, remove b... Start Date: 07/27/20 Status: Ordered predniSONE 10 mg oral tablet See Instructions, May fill and weekly on Fridays for 3 weeks, # 14 tablet, 2 Refills, 04/13/22 10:13:00 EST, [facility], 155, cm, 01/23/22 14:00:00 EST, Height, 106.5, kg,09/14/21 9:38:00 EDT, Dry Weight Start Date: 04/13/22 Status: Ordered predniSONE 10 mg oral tablet See Instructions, May fill 05/04/22 and weekly on Fridays for 3 weeks, # 14 tablet, 2 Refills, 05/03/22 14:04:00 EST, [facility], 155, cm, 01/23/22 14:00:00 EST, Height, 106.5, kg,09/14/21 9:38:00 EDT, Dry Weight Start Date: 05/03/22 Status: Ordered selenium sulfide 2.5% topical lotion See Instructions, APPLY TOPICALLY TO AFFECTED AREA EVERY DAY FOR 7 DAYS, # 120 mL, 3 Refills, Soft Stop, 10/26/21 15:43:00 EDT, [facility], 7, APPLY TOPICALLY TO AFFECTED AREA EVERY DAY FOR 7 DAYS, 155, cm, 09/28/21 12:06:00 EDT, H... Start Date: 10/26/21 Status: Ordered tiZANidine 2 mg oral tablet 1, tablet, By Mouth, 3 times a day, # 60 tablet, Refills 0, Route to Pharmacy Electronically, [id number], 155, cm, 05/03/21 14:39:00 EST, Height, 95.9, kg, 12/05/20 10:08:00 EDT, Dry Weight Start Date: 05/09/21 Status: Ordered traMADol 50 mg oral tablet 1 tablet = 50 mg, By Mouth, Every 8 hours, PRN Pain , Severe, for 7 days, May fill 05/04/22 and weekly on Fridays for 3 weeks, # 21 tablet, 2 Refills, Acute 05/24/22 14:04:00 EDT, 05/03/22 14:04:00 EST, Tablet, [facility], Partial... Start Date: 05/03/22 Stop Date: [...] Personnel Name: Ilya De Leon MD Position: [facility] Primary Care Physician Member Role: PCP Address: Address: [address] [place] [address] [place] [address]- Care Team Related Persons Name: JD ALVAREZ Address: [address] [address]
--- OUTSIDE RECORDS SUMMARY | 2022-11-03 10:39 | XMS_ITS | Continuity of Care Document ---
Author Name Unknown Organization [facility] Address Unknown Care Team Providers Care Caddie Supervisor Name Role Phone Ilya De Leon MD Primary Care Physician [place] [facility] [place]21 [facility] Allergies, Adverse Reactions, Alerts Substance Reaction [...] Gi lizbeth 1Admin Note: [facility] 2Admin Note: FLUVIRIN MULTIDOSE ADMINISTERED AT [facility] Medications capsaicin 0.025% topical cream See Instructions, APPLY TO AFFECTED AREA TWICE A DAY, # 60 Gm, 1 Refills, [id number], 30, APPLY TO AFFECTED AREA TWICE A DAY, 155, cm, 04/08/21 11:33:00 EST, Height, 95.9, kg, 12/05/20 10:08:00 EDT, Dry Weight Start Date: 04/17/21 Status: Ordered Cavilon Emollient topical cream 1 application, Topically, 2 times a day, PRN for dry skin, # 454 Gm, 1 Refills, Maintenance, 09/30/19 16:26:00 EDT, Cream, [facility] 3, 1 application Topically 2 times a day,PRN:for dry skin, 158, cm, 08/27/19 13:02:00 EDT, Height, 76, kg... Start Date: 09/30/19 Status: Ordered cetirizine 10 mg oral tablet 1 tablet = 10 mg, By Mouth, Daily, # 30 tablet, 0 Refills, Maintenance, 12/03/20 13:44:00 EDT, Tablet, [facility]/pharmacy #[id number], Partial fill upon patient request if the prescription is for a schedule II opioid drug., 158, cm, 12/03/20 13:27:00 EDT, Height,... Start Date: 12/03/20 Status: Ordered Claritin 10 mg oral tablet 10 mg, 1, tablet, By Mouth, Daily, # 15 tablet, Refills 3, Tot. Refills 3, Maintenance, 11/06/18 8:33:38 EDT, Route to Pharmacy Electronically, [id number], [facility] Start Date: 11/06/18 Status: Ordered clindamycin 1% topical gel 1 application, Topically, 2 times a day, # 30 Gm, 0 Refills, Maintenance, 04/08/21 12:14:00 EST, Gel, [facility], Partial fill upon patient request if the prescription is for a schedule II opioid drug., 1 application Topically 2 ti... Start Date: 04/08/21 Status: Ordered clindamycin 150 mg oral capsule See Instructions, 3 capsultes 3 times a day, # 45 capsule, 0 Refills, Acute 01/20/22 14:53:00 EST, 03/17/21 14:50:00 EST, Capsule, [facility], Partial fill upon patient request ifthe prescription is for a schedule II opioid drug.,... Start Date: 03/17/21 Stop Date: 01/20/22 Status: Ordered clonazePAM 0.5 mg oral tablet 1 tablet = 0.5 mg, By Mouth, Daily, PRINT OPERATOR checked, # 14 tablet, 0 Refills, Maintenance, 04/18/21 12:09:00 EST, Tablet, [facility]/pharmacy #[id number], Partial fill upon patient request if the prescription is for aschedule II opioid drug., 155, cm, 04/18/21 10:12:0... Start Date: 04/18/21 Stop Date: 05/02/21 Status: Ordered clonazePAM 0.5 mg oral tablet 1 tablet = 0.5 mg, By Mouth, Daily, may fill 05/02, # 14 tablet, 0 Refills, Maintenance, 05/01/21 3:37:00 EST, Tablet, [facility]/pharmacy #[id number], PRINT OPERATOR reviewed, covering for Dr. De Leon, 155, cm, 04/18/21 10:12:00 EST, Height, 95.9, kg, 12/05/20 10:08:00 EDT,... Start Date: 05/01/21 Stop Date: 05/15/21 Status: Ordered diphenhydrAMINE 25 mg oral tablet 1 tablet = 25 mg, By Mouth, 3 times a day, PRN as needed for itching, Will cause drowsiness, # 30 tablet, 0 Refills, Maintenance, 07/16/20 15:11:00 EDT, Tablet, [facility], Partial fill upon patient request if the prescription is f... Start Date: 07/16/20 Status: Ordered Dovonex 0.005% topical cream 1 applicator, Topically, 2 times a day, # 60 Gm, 5 Refills, Maintenance, 07/07/19 17:30:00 EDT, [facility] 3, 1 applicator Topically 2 times [...] Gm, 0 Refills, Maintenance, 04/27/20 14:35:00 EST, [place], [facility], Partial fill upon patient request if theprescription is for a schedule II opioid drug., 1... Start Date: 04/27/20 Stop Date: 05/27/20 Status: Ordered furosemide 20 mg oral tablet 1, tablet, By Mouth, Daily, # 30 tablet, Refills 3, Tot. Refills 3, Maintenance, 04/18/21 12:11:00 EST, Route to Pharmacy Electronically, [facility]/pharmacy #[id number], 155, cm, 04/18/21 [...] A DAY, # 50 Gm, 1 Refills, [id number], 30, APPLY A THIN FILM TO THE AFFECTED SKIN AND RUB IN GENTLY AND COMPLETELY TWICE A DAY, 155, cm, 12/05/20 10:0... Start Date: 03/15/21 Status: Ordered hydrocortisone 1% topical cream 1 application, Topically, 2 times a day, Apply to rash areas, # 60 Gm, 3 Refills, Maintenance, 06/04/19 14:52:00 EDT, Cream, [facility], 1 application Topically 2 times a day,Instr:Apply to rash areas, 158, cm, 12/24/18 10:25:00 EDT, Hei... Start Date: 06/04/19 Status: Ordered ketoconazole 2% topical shampoo See Instructions, APPLY 1 APPLICATOR TOPICALLY 3X PER WEEK, # 120 mL, 3 Refills, [id number], 30, APPLY 1 APPLICATOR TOPICALLY 3X PER [...] 2 Refills, Maintenance, 03/08/21 10:26:00 EST, Cream, [facility]/pharmacy #[id number], Partial fill upon patient request if the prescription is for a schedule II opioid drug., 1 application Topically 3 times a day,... Start Date: 03/08/21 Status: Ordered [place] 0.65% nasal spray 2 sprays, Nares, Both, 4 times a day, # 1 each, 0 Refills, Maintenance, 12/03/20 13:46:00 EDT, [facility]/pharmacy #[id number], Partial fill upon [...] Refills, Soft Stop, 07/27/20 11:50:00 EDT, Cream, [facility], 1 applicationTopically Once,Instr:to skin head to feet, remove b... Start Date: 07/27/20 Status: Ordered predniSONE 10 mg oral tablet 1 tablet = 10 mg, By Mouth, Daily, may fill 05/02/21, # 14 tablet, 0 Refills, Maintenance, 05/01/21 3:37:00 EST, [facility]/pharmacy #[id number], Partial fill upon patient request if the prescription is for a schedule II opioid drug., 155, cm, 02/07/22 10:12:00 EST... Start Date: 05/01/21 Stop Date: 05/15/21 Status: Ordered selenium sulfide 2.5% topical lotion See Instructions, APPLY TOPICALLY TO AFFECTED AREA EVERY DAY FOR 7 DAYS, # 120 mL, 3 Refills, Soft Stop, 04/26/21 18:07:00 EST, [facility]/pharmacy #[id number], 7, APPLY TOPICALLY TO AFFECTED AREA EVERY DAY FOR 7DAYS, 155, cm, 04/18/21 10:12:00 EST, Height, 95.9,... Start Date: 04/26/21 Status: Ordered Shingrix intramuscular injection = 0.5 mL, Intramuscular, Once, repeat dose in 2 to 6 months, # 2 each, 0 Refills, Soft Stop, 05/27/20 11:03:00 EDT, Pow[place], [facility], Partial fill upon patient [...] 1 Refills, Maintenance, 03/10/20 18:21:00 EST, Cream, [facility] 3, Partial fill upon patient request if the prescription is fora schedule II opioid drug., 1 application Topically... Start Date: 03/10/20 Status: Ordered tiZANidine 2 mg oral tablet 2 mg, 1, tablet, By Mouth, 3 times a day, for 30 days, # 90 tablet, Refills 0, Tot. Refills 0, Acute 05/08/21 12:19:00 EST, 04/08/21 12:19:00 EST, Route to Pharmacy Electronically, [facility], Partial fill upon patient request if t... Start Date: 04/08/21 Stop Date: 05/08/21 Status: Ordered Valium 5 mg oral tablet 5 mg, 1, tablet, By Mouth, Daily at bedtime, PRN, # 3 tablet, Refills 0, Tot. Refills 0, Maintenance, Spasm, 04/03/21 11:16:00 EST, Route to Pharmacy Electronically, [facility], Partialfill upon patient request if the prescription is fo... Start Date: 04/03/21 Status: Ordered Problem List Condition Effective Dates Status Health Status Inform ant Anxiety(Confirmed) Active Opioid type dependence, continuous(Confirmed) 1 Active Osteoarthritis of left knee(Confirmed) Active Psoriasis(Confirmed) Active Severe obesity(Confirmed) Active 1Client had been seen by Jazz Francois at [facility]. Client has no-showed to last appt and today.She will be targetted for closing if she does not responde to correspondence that will be sent on 02/14/13 Social History Social History Type Response Smoking Status 10 or more cigarette s (1/2 pack or more)/day in last 30 days entered on: 04/18/21 Sex
--- OUTSIDE RECORDS SUMMARY | 2022-11-03 10:39 | XMS_ITS | Continuity of Care Document ---
Author Name Unknown Organization [facility] Address [address] [place] [address]- Care Team Providers Care Brush Worker Name Role Phone Ilya De Leon MD Primary Care Physician Encounter [facility] [place](s): 06/11/20 - 07/11/20 [facility]/[address] [address]- Allergies, Adverse Reactions, Alerts Substance Reaction Severity [...] ADMINISTERED AT [facility] Medications Cavilon Emollient topical cream 1 application, Topically, 2 times a day, PRN for dry skin, # 454 Gm, 1 Refills, Maintenance, 09/30/19 16:26:00 EDT, Cream, [facility], 1 application Topically 2 times a day,PRN:for dry skin, 158, cm, 08/27/19 13:02:00 EDT, Height, 76, kg... Start Date: 09/30/19 Status: Ordered cetirizine 10 mg oral tablet 1 tablet = 10 mg, By Mouth, Daily, for allergies. Do NOT take with claritin, # 30 tablet, 0 Refills, Maintenance, 04/27/20 14:41:00 EST, Tablet, [facility], Partial fill upon patient request if the prescription is for a schedule II opioi... Start Date: 04/27/20 Stop Date: 05/27/20 Status: Ordered Claritin 10 mg oral tablet 10 mg, 1, tablet, By Mouth, Daily, # 15 tablet, Refills 3, Tot. Refills 3, Maintenance, 11/06/18 8:33:38 EDT, Route to Pharmacy Electronically, [id number], [facility] Start Date: 11/06/18 Status: Ordered Dovonex 0.005% topical cream 1 applicator, Topically, 2 times a day, # 60 Gm, 5 Refills, Maintenance, 07/07/19 17:30:00 EDT, [facility] 3, 1 applicator Topically 2 [...] Gm, 0 Refills, Maintenance, 04/27/20 14:35:00 EST, [place], [facility], Partial fill upon patient request if theprescription is for a schedule II opioid drug., 1... Start Date: 04/27/20 Stop Date: 05/27/20 Status: Ordered hydrocortisone 1% topical cream 1 application, Topically, 2 times a day, Apply to rash areas, # 60 Gm, 3 Refills, Maintenance, 06/04/19 14:52:00 EDT, Cream, [facility], 1 application Topically 2 [...] 0 Refills, Soft Stop, 07/07/20 13:01:00 EDT, [facility], 158, cm, 06/23/20 13:26:00 EDT... Start Date: 07/07/20 Status: Ordered Methadone By Mouth, 0 Refills, Maintenance Start Date: 12/25/11 Status: Ordered Nizoral 2% topical shampoo See Instructions, 1 applicator Topically 3x per week, # 120 mL, 10 Refills, Soft Stop, 05/13/20 11:05:00 EST, [facility], 1 applicator Topically 3x per week, 158, cm, 05/10/20 11:36:00 EST, Height, 76, kg, 04/12/19 15:31:00 EST, Dry Weight Start Date: 05/13/20 Status: Ordered oxyCODONE 5 mg oral tablet 5 mg, 1, tablet, By Mouth, Every 6 hours, PRN, # 4 tablet, Refills 0, Tot. Refills 0, Maintenance, Pain , Severe, 06/26/20 10:50:00 EDT, Route to Pharmacy Electronically, [facility] 3, Partial fill upon patient request if [...] for 5 days then 1 daily for 14 days then stop, # 24 tablet, 0 Refills, Maintenance, 07/06/20 12:26:00 EDT, [facility] 3, Partial fill upon patient request if the prescription is for a schedule II opioid dr... Start Date: 07/06/20 Status: Ordered selenium sulfide 2.5% topical lotion See Instructions, APPLY TOPICALLY TO AFFECTED AREA EVERY DAY FOR 7 DAYS, # 120 mL, 3 Refills, Maintenance, [facility], 7, APPLY TOPICALLY TO AFFECTED AREA EVERY DAY FOR 7 DAYS, 158, cm, 05/10/20 11:36:00 EST, Height, 76, kg, 04/12/19 15:31:00 E... Start Date: 05/21/20 Status: Ordered selenium sulfide 2.5% topical lotion See Instructions, APPLY TOPICALLY TO AFFECTED AREA EVERY DAY FOR 7 DAYS, # 120 mL, 3 Refills, Maintenance, [facility], 7, APPLY TOPICALLY TO AFFECTED [...] 1 Refills, Maintenance, 03/10/20 18:21:00 EST, Cream, [facility], Partial fill upon patient [...] 0 Refills, Maintenance, 04/06/19 20:19:00 EST, Tablet, [facility], 158, cm, 12/24/18 10:25:00 EDT, Height, 75.5, kg, 04/06/19 17:01:00 EST, Dry Weight Start Date: 04/06/19 Stop Date: 04/13/19 Status: Ordered Problem List Condition Effective Dates Status Health Status Inform ant Opioid type dependence, continuous(Confirmed) 1 Active 1Client had been seen by Jazz Francois at [facility]. Client has no-showed to last appt and today.She will be targetted for closing if she does not responde to correspondence that will be sent on 02/14/13 Social History Social History Type Response Tobacco Use: 4 or less cigar ettes(less than 1/4 pack)/day in last 30 days. Sex
--- OUTSIDE RECORDS SUMMARY | 2022-11-03 10:39 | XMS_ITS | Continuity of Care Document ---
Author Name Unknown Organization [facility] Address Unknown Care Team Providers Care Hops Farmworker Name Role Phone Haley NEWMAN, Ilya Primary Care Physician [place] [facility] [place] 06/01[place]21 - 07/01/21 [facility] Allergies, Adverse Reactions, Alerts Substance [...] Refills, Maintenance, 06/29/21 15:10:00 EDT, ER Tablet, [facility]/pharmacy #[id number], Partial fill upon patient request if the prescription is for a schedule II opioid drug., 155, cm, 05/30/21 15:34:... Start Date: 06/29/21 Status: Ordered capsaicin 0.025% topical cream See Instructions, APPLY TO AFFECTED AREA TWICE A DAY, # 60 Gm, 1 Refills, [id number], 30, APPLY TO AFFECTED AREA TWICE A DAY, 155, cm, 05/30/21 15:34:00 EDT, Height, 95.9, kg, 12/05/20 10:08:00 EDT, Dry Weight Start Date: 05/31/21 Status: Ordered Cavilon Emollient topical cream 1 application, Topically, 2 times a day, PRN for dry skin, # 454 Gm, 1 Refills, Maintenance, 09/30/19 16:26:00 EDT, Cream, [facility], 1 application Topically 2 times a day,PRN:for dry skin, 158, cm, 08/27/19 13:02:00 EDT, Height, 76, kg... Start Date: 09/30/19 Status: Ordered clonazePAM 0.5 mg oral tablet 1 tablet = 0.5 mg, By Mouth, Daily, mAY FILL 06/21/21, # 14 tablet, 0 Refills, Maintenance, 06/21/2215:00:00 EDT, Tablet, [facility]/pharmacy #[id number], GIS PHYSICAL SCIENTIST reviewed, covering for Dr. De Leon, 155, cm, 05/30/2214:34:00 EDT, Height, 95.9, kg, 12/05/20 10:08:00 E... Start Date: 06/20/21 Stop Date: 07/04/21 Status: Ordered Dovonex 0.005% topical cream 1 applicator, Topically, 2 times a day, # 60 Gm, 5 Refills, Maintenance, 07/07/19 17:30:00 EDT, [facility], 1 applicator Topically 2 times a day,x30 days, 158, cm, 12/24/18 10:25:00 EDT, Height, 76, kg, 04/12/19 15:31:00 EST, Dry Weight Start Date: 07/07/19 Stop Date: 01/03/20 Status: Ordered fluticasone 50 mcg/inh nasal spray 1 sprays, Nares, Both, 2 times a day, in each nostril. for allergies, # 16 Gm, 0 Refills, Maintenance, 04/27/20 14:35:00 EST, [place], [facility], Partial fill upon patient request if theprescription is for a schedule II opioid drug., 1... Start Date: 04/27/20 Stop Date: 05/27/20 Status: Ordered furosemide 20 mg oral tablet 1, tablet, By Mouth, Daily, # 30 tablet, Refills 3, Tot. Refills 3, Maintenance, 04/18/21 12:11:00 EST, Route to Pharmacy Electronically, [facility]/pharmacy #[id number], 155, cm, 04/18/21 10:12:00 EST, Height, 95.9, kg, 12/05/20 10:08:00 EDT, Dry Weight Start Date: 04/18/21 Status: Ordered halobetasol 0.05% topical ointment See Instructions, APPLY A THIN FILM TO THE AFFECTED SKIN AND RUB IN GENTLY AND COMPLETELY TWICE A DAY, # 50 Gm, 1 Refills, [id number], 30, APPLY A THIN FILM TO THE AFFECTED SKIN AND RUB IN GENTLY AND COMPLETELY TWICE A DAY, 155, cm, 12/05/20 10:0... Start Date: 03/15/21 Status: Ordered hydrocortisone 1% topical cream 1 application, Topically, 2 times a day, # 30 Gm, 0 Refills, Maintenance, 06/17/21 11:42:00 EDT, Cream, [facility], Partial fill upon patient request if the prescription is for a schedule II opioid drug., 1 application Topically 2 times... Start Date: 06/17/21 Status: Ordered ketoconazole 2% topical shampoo See Instructions, APPLY 1 APPLICATOR TOPICALLY 3X PER WEEK, # 120 mL, 3 Refills, [id number], 30, APPLY 1 APPLICATOR TOPICALLY 3X PER WEEK, 155, cm, 03/17/21 7:53:00 EST, Height, 95.9, kg, 12/05/20 10:08:00 EDT, Dry Weight Start Date: 03/21/21 Status: Ordered loratadine 10 mg oral tablet 1, tablet, By Mouth, Daily, # 15 tablet, Refills 3, Route to Pharmacy Electronically, [id number], 155, cm, 05/30/21 15:34:00 EDT, Height, 95.9, kg, 12/05/20 10:08:00 EDT, Dry Weight Start Date: 06/21/21 Status: Ordered Methadone By Mouth, 0 Refills, Maintenance Start Date: 12/25/11 Status: Ordered mupirocin 2% topical cream 1 application, Topically, 3 times a day, # 30 Gm, 2 Refills, Maintenance, 03/08/21 10:26:00 EST, Cream, [facility]/pharmacy #[id number], Partial fill upon patient request if the prescription is for a schedule II opioid drug., 1 application Topically 3 times a day,... Start Date: 03/08/21 Status: Ordered permethrin 5% topical cream 1 application, Topically, Once, to skin head to feet, remove by washing after 8 to 14 hours, # 60 Gm, 0 Refills, Soft Stop, 07/27/20 11:50:00 EDT, Cream, [facility], 1 applicationTopically Once,Instr:to skin head to feet, remove b... Start Date: 07/27/20 Status: Ordered selenium sulfide 2.5% topical lotion See Instructions, APPLY TOPICALLY TO AFFECTED AREA EVERY DAY FOR 7 DAYS, # 120 mL, 3 Refills, Soft Stop, 04/26/21 18:07:00 EST, [facility]/pharmacy #[id number], 7, APPLY TOPICALLY TO AFFECTED AREA EVERY DAY FOR 7DAYS, 155, cm, 04/18/21 10:12:00 EST, Height, 95.9,... Start Date: 04/26/21 Status: Ordered tiZANidine 2 mg oral tablet 1, tablet, By Mouth, 3 times a day, # 60 tablet, Refills 0, Route to Pharmacy Electronically, [id number], 155, cm, 05/03/21 14:39:00 EST, Height, 95.9, kg, 12/05/20 10:08:00 EDT, Dry Weight Start Date: 05/09/21 Status: Ordered Problem List Condition Effective Dates Status Health Status Inform ant Anxiety(Confirmed) Active Opioid type dependence, continuous(Confirmed) 1 Active Osteoarthritis of left knee(Confirmed) Active Psoriasis(Confirmed) Active Severe obesity(Confirmed) Active 1Client had been seen by Jazz Francois at [facility]. Client has no-showed to last appt and today.She will be targetted for closing if she does not responde to correspondence that will be sent on 02/14/13 Social History Social History Type Response Smoking Status 10 or more cigarette s (1/2 pack or more)/day in last 30 days entered on: 04/18/21 Sex
--- OUTSIDE RECORDS SUMMARY | 2022-11-03 10:39 | XMS_ITS | Continuity of Care Document ---
Author Name Unknown Organization [facility] Address Unknown Care Team Providers Care Classifier Tender Name Role Phone Ilya De Leon MD Primary Care Physician En[place] [facility] Date([place]): 09/14/21 - 10/14/21 [facility] Allergies, Adverse Reactions, Alerts Substance Reaction [...] AT [facility] Medications acetaminophen 650 mg oral tablet, extended release 2 tablet = 1,300 mg, By Mouth, Every 8 hours, # 100 tablet, 1 Refills, Maintenance, 06/29/21 15:10:00 EDT, ER Tablet, [facility]/pharmacy #[id number], Partial fill upon patient request if the prescription is for a schedule II opioid drug., 155, cm, 05/30/21 15:34:... Start Date: 06/29/21 Status: Ordered capsaicin 0.025% topical cream See Instructions, APPLY TO AFFECTED AREA TWICE A DAY, # 60 Gm, 1 Refills, [facility] STORE [id number], 30, APPLY TO AFFECTED AREA TWICE A DAY, 155, cm, 05/30/21 15:34:00 EDT, Height, 95.9, kg, 12/05/20 10:08:00 EDT, Dry Weight Start Date: 05/31/21 Status: Ordered Cavilon Emollient topical cream 1 application, Topically, 2 times a day, PRN for dry skin, # 454 Gm, 1 Refills, Maintenance, 09/30/19 16:26:00 EDT, Cream, [facility] 3, 1 application Topically 2 times a day,PRN:for dry skin, 158, cm, 08/27/19 13:02:00 EDT, Height, 76, kg... Start Date: 09/30/19 Status: Ordered clonazePAM 0.5 mg oral tablet 1 tablet = 0.5 mg, By Mouth, Daily at bedtime, May fill 10/14/21, # 7 tablet, 0 Refills, Maintenance,10/12/21 15:30:00 EDT, Tablet, [facility], INTERNATIONAL ACCOUNT MANAGER reviewed, covering for Dr. De Leon, 155, cm, 09/28/21 12:06:00 EDT, Height, 106.5, k... Start Date: 10/12/21 Stop Date: 10/19/21 Status: Ordered clonazePAM 0.5 mg oral tablet 1 tablet = 0.5 mg, By Mouth, Daily at bedtime, May cammie l 09/22/21, # 7 tablet, 0 Refills, Maintenance, 09/21/21 7:19:00 EDT, Tablet, [facility], INTERNATIONAL ACCOUNT MANAGER reviewed, covering for Dr. De Leon, 155, cm, 09/15/21 10:14:00 EDT, Height, 106.5,... Start Date: 09/21/21 Stop Date: 09/28/21 Status: Ordered coal tar topical 2% foam 1 application, Topically, 4 times a day, # 100 Gm, 1 Refills, Maintenance, 09/28/21 12:24:00 EDT, Foam, [facility], Partial fill upon patient request if [...] each, 0 Refills, Maintenance, 09/28/21 12:23:00 EDT, [facility], Partial fill upon patient request if the prescription is for a schedule II opioid drug., apply as frequently as n... Start Date: 09/28/21 Status: Ordered fluticasone 50 mcg/inh nasal spray 1 sprays, Nares, Both, 2 times a day, in each nostril. for allergies, # 16 Gm, 0 Refills, Maintenance, 04/27/20 14:35:00 EST, [place], [facility] 3, Partial fill upon patient request if theprescription is for a schedule II opioid drug., 1... Start Date: 04/27/20 Stop Date: 05/27/20 Status: Ordered halobetasol 0.05% topical ointment See Instructions, APPLY A THIN FILM TO THE AFFECTED SKIN AND RUB IN GENTLY AND COMPLETELY TWICE A DAY, # 50 Gm, 1 Refills, [facility] [id number], 30, APPLY A THIN FILM TO THE AFFECTED SKIN AND RUB IN GENTLY AND COMPLETELY TWICE A DAY, 155, cm, 12/05/20 10:0... Start Date: 03/15/21 Status: Ordered hydrocortisone 1% topical cream 1 application, Topically, 2 times a day, # 30 Gm, 0 Refills, Maintenance, 06/17/21 11:42:00 EDT, Cream, [facility] 3, [...] 10/23/21 14:41:00 EDT, 08/24/21 14:41:00 EDT, Capsule, [facility], Partial fill upon patient request if the prescription is for a sche... Start Date: 08/24/21 Stop Date: 10/23/21 Status: Ordered ketoconazole 2% topical shampoo See Instructions, APPLY 1 APPLICATOR TOPICALLY 3X PER WEEK, # 120 mL, 3 Refills, [id number], 30, APPLY 1 APPLICATOR TOPICALLY 3X PER WEEK, 155, cm, 05/30/21 15:34:00 EDT, Height, 95.9, kg, 12/05/20 10:08:00 EDT, Dry Weight Start Date: 08/02/21 Status: Ordered loratadine 10 mg oral tablet 1, tablet, By Mouth, Daily, # 15 tablet, Refills 5, Tot. Refills 5, Maintenance, 08/19/21 9:15:00 EDT, [id number], 155, cm, 05/30/21 15:34:00 EDT, Height, [...] Stop, 07/27/20 11:50:00 EDT, Cream, [facility], 1 applicationTopically Once,Instr:to skin head to feet, remove b... Start Date: 07/27/20 Status: Ordered predniSONE 10 mg oral tablet 1 tablet = 10 mg, By Mouth, 2 times a day, for 7 days, Fill 10/14/21, # 14 tablet, 0 Refills, Physician Stop 10/19/21 15:30:00 EDT, 10/12/21 15:30:00 EDT, [facility], 155, cm, 09/28/21 12:06:00 EDT, Height, 106.5, kg, 09/14/21 9:38:0... Start Date: 10/12/21 Stop Date: 10/19/21 Status: Ordered selenium sulfide 2.5% topical lotion See Instructions, APPLY TOPICALLY TO AFFECTED AREA EVERY DAY FOR 7 DAYS, # 120 mL, 3 Refills, Soft Stop, 09/28/21 12:25:00 EDT, [facility], 7, APPLY TOPICALLY TO AFFECTED AREA EVERY DAY FOR 7 DAYS, 155, cm, 09/28/21 12:06:00 EDT, H... Start Date: 09/28/21 Status: Ordered tiZANidine 2 mg oral tablet 1, tablet, By Mouth, 3 times a day, # 60 tablet, Refills 0, Route to Pharmacy Electronically, [id number], 155, cm, 05/03/21 14:39:00 EST, Height, 95.9, kg, 12/05/20 10:08:00 EDT, Dry Weight Start Date: 05/09/21 Status: Ordered traMADol 50 mg oral tablet 1 tablet = 50 mg, By Mouth, Every 8 hours, PRN Pain , Severe, for 7 days, for 10/14/21, # 21 tablet, 0 Refills, Acute 10/19/21 15:30:00 EDT, 10/12/21 15:30:00 EDT, Tablet, [facility], Partial fill upon patient request if [...]
--- OUTSIDE RECORDS SUMMARY | 2022-11-03 10:39 | XMS_ITS | Continuity of Care Document ---
Author Name Unknown Organization [facility] Address [address] [place] [address]- Care Team Providers Care Motor Block Mechanic Name Role Phone Ilya De Leon MD Primary Care Physician [place] [facility]): 01/23/22 - 02/23/22 [facility]/[address] [address]- Attending Physician: Not on Staff, Attending MD Allergies, Adverse Reactions, Alerts Substance Reaction Severity Status penicillin Rash Active Compazine throat swells Active Imitrex Chest pain Active aspirin Ibuprofen tight throat Rash Active morphine HAND SWELLING Active Toradol Rash Active Motrin tight throat Rash Active Reglan [...] [facility] Medications acetaminophen 650 mg oral tablet, extended release 2 tablet = 1,300 mg, By Mouth, Every 8 hours, # 100 tablet, 1 Refills, Maintenance, 06/29/21 15:10:00 EDT, ER Tablet, [facility]acy #[id number], Partial fill upon patient request if the prescription is for a schedule II opioid drug., 155, cm, 05/30/21 15:34:... Start Date: 06/29/21 Status: Ordered capsaicin 0.025% topical cream See Instructions, APPLY TO AFFECTED AREA TWICE A DAY, # 60 Gm, 1 Refills, [facility] [id number], 30, APPLY TO AFFECTED AREA TWICE A DAY, 155, cm, 05/30/21 15:34:00 EDT, Height, 95.9, kg, 12/05/20 10:08:00 EDT, Dry Weight Start Date: 05/31/21 Status: Ordered Cavilon Emollient topical cream 1 application, Topically, 2 times a day, PRN for dry skin, # 454 Gm, 1 Refills, Maintenance, 09/30/19 16:26:00 EDT, Cream, [facility], 1 application Topically 2 times a day,PRN:for dry skin, 158, cm, 08/27/19 13:02:00 EDT, Height, 76, kg... Start Date: 09/30/19 Status: Ordered clonazePAM 0.5 mg oral tablet 1 tablet = 0.5 mg, By Mouth, Daily at bedtime, May fill 02/10/22 and weekly on Fridays for3 weeks, #7 tablet, 2 Refills, Maintenance, 02/07/22 15:55:00 EST, Tablet, [facility], AEROSPACE PROJECT MANAGER reviewed, covering for Dr. De Leon, 155, cm, 01/23... Start Date: 02/07/22 Stop Date: 02/28/22 Status: Ordered coal tar topical 1% lotion See Instructions, applyTopically Daily at bedtime, # 120 mL, 3 Refills, Maintenance, 10/26/21 15:45:00 EDT, [facility], Partial fill upon patient request if the prescription is for a schedule II opioid drug., applyTopically Daily a... Start Date: 10/26/21 Status: Ordered Dovonex 0.005% topical cream 1 applicator, Topically, 2 times a day, # 60 Gm, 5 Refills, Maintenance, 07/07/19 17:30:00 EDT, [facility], 1 applicator Topically 2 times a day,x30 days, 158, cm, 12/24/18 10:25:00 EDT, Height, 76, kg, 04/12/19 15:31:00 EST, Dry Weight Start Date: 07/07/19 Stop Date: 01/03/20 Status: Ordered Eucerin Unscented topical lotion See Instructions, apply as frequently as needed, # 1 each, 0 Refills, Maintenance, 09/28/21 12:23:00 EDT, [facility], Partial fill upon patient request if the prescription is for a schedule II opioid drug., apply as frequently as n... Start Date: 09/28/21 Status: Ordered fluticasone 50 mcg/inh nasal spray 1 sprays, Nares, Both, 2 times a day, in each nostril. for allergies, # 16 Gm, 0 Refills, Maintenance, 04/27/20 14:35:00 EST, [place], [facility] 3, Partial fill upon patient request if theprescription is for a schedule II opioid drug., 1... Start Date: 04/27/20 Stop Date: 05/27/20 Status: Ordered halobetasol 0.05% topical ointment See Instructions, APPLY A THIN FILM TO THE AFFECTED SKIN AND RUB IN GENTLY AND COMPLETELY TWICE A DAY, # 50 Gm, 1 Refills, Maintenance, 10/26/21 15:44:00 EDT, [facility], 30, APPLY A THIN FILM TO THE AFFECTED SKIN AND RUB IN GENTLY... Start Date: 10/26/21 Status: Ordered ketoconazole 2% topical shampoo See Instructions, APPLY 1 APPLICATOR TOPICALLY 3X PER WEEK, # 120 mL, 3 Refills, Maintenance, 12/27/21 19:30:00 EDT, [facility] ST[facility] [id number], 30, APPLY 1 APPLICATOR TOPICALLY 3X PER WEEK, 155, cm, 12/12/21 16:00:00 EDT, Height, 106.5, kg, 09/14/21 9:38:00 EDT... Start Date: 12/27/21 Status: Ordered loratadine 10 mg oral tablet 1, tablet, By Mouth, Daily, # 90 tablet, Refills 1, Tot. Refills 1, Maintenance, 11/01/21 15:19:00 EDT, Route to Pharmacy Electronically, [facility]/pharmacy #[id number], 155, cm, 09/28/21 12:06:00 EDT, Height, 106.5, kg, 09/14/21 9:38:00 EDT, Dry Weight Start Date: 11/01/21 Status: Ordered Methadone By Mouth, 0 Refills, Maintenance Start Date: 12/25/11 Status: Ordered mupirocin 2% topical cream 1 application, Topically, 3 times a day, # 30 Gm, 2 Refills, Maintenance, 03/08/21 10:26:00 EST, Cream, [facility]/pharmacy #[id number], Partial fill upon patient request if the prescription is for a schedule II opioid drug., 1 application Topically 3 times a day,... Start Date: 03/08/21 Status: Ordered permethrin 5% topical cream 1 application, Topically, Once, to skin head to feet, remove by washing after 8 to 14 hours, # 60 Gm, 0 Refills, Soft Stop, 07/27/20 11:50:00 EDT, Cream, [facility], 1 applicationTopically Once,Instr:to skin head to feet, remove b... Start Date: 07/27/20 Status: Ordered predniSONE 10 mg oral tablet See Instructions, May fill 02/10/22 and weekly on Fridays for 3 weeks, # 14 tablet, 2 Refills, 02/07/22 15:55:00 EST, [facility], 155, cm, 01/23/22 14:00:00 EST, Height, 106.5, kg,09/14/21 9:38:00 EDT, Dry Weight Start Date: 02/07/22 Status: Ordered selenium sulfide 2.5% topical lotion See Instructions, APPLY TOPICALLY TO AFFECTED AREA EVERY DAY FOR 7 DAYS, # 120 mL, 3 Refills, Soft Stop, 10/26/21 15:43:00 EDT, [facility], 7, APPLY TOPICALLY TO AFFECTED AREA EVERY DAY FOR 7 DAYS, 155, cm, 09/28/21 12:06:00 EDT, H... Start Date: 10/26/21 Status: Ordered tiZANidine 2 mg oral tablet 1, tablet, By Mouth, 3 times a day, # 60 tablet, Refills 0, Route to Pharmacy Electronically, [facility] [id number], 155, cm, 05/03/21 14:39:00 EST, Height, 95.9, kg, 12/05/20 10:08:00 EDT, Dry Weight Start Date: 05/09/21 Status: Ordered traMADol 50 mg oral tablet 1 tablet = 50 mg, By Mouth, Every 8 hours, PRN Pain , Severe, for 7 days, May fill 02/10/22 and weekly on Fridays for 3 weeks, # 21 tablet, 2 Refills, Acute 02/28/22 15:55:00 EST, 02/07/22 15:55:00 EST, Tablet, [facility] [place], Partial f... Start Date: 02/07/22 Stop Date: [...] Personnel Name: Ilya De Leon MD Position: [facility] Primary Care Physician Member Role: PCP Address: Address: [address] [place] [id number]- Care Team Related Persons Name: JD ALVAREZ Address: home [address] [place] [id number]
--- OUTSIDE RECORDS SUMMARY | 2022-11-03 10:39 | XMS_ITS | Continuity of Care Document ---
Author Name Unknown Organization [facility] Address [address] [place] [id number]- Care Team Providers Care Physiotherapist'S Assistant Name Role Phone Haley NEWMAN, Ilya Primary Care Physician Encounter [facility] [place] Date(s): 06/29/20 - 07/30/20 [facility]/[address] [address]- Attending Physician: Angella Salamanca NP Admitting Physician: [...] EDT, Cream, [facility], 1 application Topically 2 times a day,PRN:for dry skin, 158, cm, 08/27/19 13:02:00 EDT, Height, 76, kg... Start Date: 09/30/19 Status: Ordered cetirizine 10 mg oral tablet 1 tablet = 10 mg, By Mouth, Daily, for allergies. Do NOT take with claritin, # 30 tablet, 0 Refills, Maintenance, 07/23/20 11:37:00 EDT, Tablet, [facility], Partial fill upon patient request if the prescription is for a schedule II... Start Date: 07/23/20 Stop Date: 08/22/20 Status: Ordered Claritin 10 mg oral tablet 10 mg, 1, tablet, By Mouth, Daily, # 15 tablet, Refills 3, Tot. Refills 3, Maintenance, 11/06/18 8:33:38 EDT, Route to Pharmacy Electronically, [id number], [facility] Start Date: 11/06/18 Status: Ordered diphenhydrAMINE 25 mg oral tablet 1 tablet = 25 mg, By Mouth, 3 times a day, PRN as needed for itching, Will cause drowsiness, # 30 tablet, 0 Refills, Maintenance, 07/16/20 15:11:00 EDT, Tablet, [facility], Partial fill upon patient request if the prescription is f... Start Date: 07/16/20 Status: Ordered Dovonex 0.005% topical cream 1 applicator, Topically, 2 times a day, # 60 Gm, 5 Refills, Maintenance, 07/07/19 17:30:00 EDT, [facility] 3, 1 applicator Topically 2 [...] Gm, 0 Refills, Maintenance, 04/27/20 14:35:00 EST, [place], [facility], Partial fill upon patient request if theprescription is for a schedule II opioid drug., 1... Start Date: 04/27/20 Stop Date: 05/27/20 Status: Ordered hydrocortisone 1% topical cream 1 application, Topically, 2 times a day, Apply to rash areas, # 60 Gm, 3 Refills, Maintenance, 06/04/19 14:52:00 EDT, Cream, [facility], 1 application Topically [...] 0 Refills, Soft Stop, 07/07/20 13:01:00 EDT, [facility], 158, cm, 06/23/20 13:26:00 EDT... Start Date: 07/07/20 Status: Ordered Methadone By Mouth, 0 Refills, Maintenance Start Date: 12/25/11 Status: Ordered Nizoral 2% topical shampoo See Instructions, 1 applicator Topically 3x per week, # 120 mL, 10 Refills, Soft Stop, 05/13/20 11:05:00 EST, [facility], 1 applicator Topically 3x [...] 07/23/20 11:48:00 EDT, Route to Pharmacy Electronically, [facility], Partial fill upon patient reque... Start Date: 07/23/20 Stop Date: 08/02/20 Status: Ordered permethrin 5% topical cream 1 application, Topically, Once, to skin head to feet, remove by washing after 8 to 14 hours, # 60 Gm, 0 Refills, Soft Stop, 07/27/20 11:50:00 EDT, Cream, [facility], 1 applicationTopically Once,Instr:to skin head to feet, remove b... Start Date: 07/27/20 Status: Ordered predniSONE 10 mg oral tablet See Instructions, 3 tablet daily for 7 days then 2 tablet daily for 7 days starting on 07/28/20, # 35 tablet, 0 Refills, Maintenance, 07/28/20 9:46:00 EDT, [facility], Partial fillupon patient request if the prescription is for a s... Start Date: 07/28/20 Status: Ordered selenium sulfide 2.5% topical lotion See Instructions, APPLY TOPICALLY TO AFFECTED AREA EVERY DAY FOR 7 DAYS, # 120 mL, 3 Refills, Soft Stop, 07/23/20 11:40:00 EDT, [facility], 7, APPLY TOPICALLY TO AFFECTED AREA EVERY DAY FOR 7 DAYS, 158, cm, 07/23/20 11:13:00 EDT, H... Start Date: 07/23/20 Status: Ordered Shingrix intramuscular injection = 0.5 mL, Intramuscular, Once, repeat dose in 2 to 6 months, # 2 each, 0 Refills, Soft Stop, 05/27/20 11:03:00 EDT, Powder, [facility], Partial fill upon patient request [...] 1 Refills, Maintenance, 03/10/20 18:21:00 EST, Cream, [facility], Partial fill upon [...] 0 Refills, Maintenance, 07/23/20 11:37:00 EDT, Gel, [facility], 1 application Topically 4 times a day, 158, cm, 07/23/20 11:13:00 EDT, Height, 82, kg, 07/21/20 20:18:00 EDT, Dry We... Start Date: 07/23/20 Status: Ordered Problem List Condition Effective Dates Status Health Status Inform ant Opioid type dependence, continuous(Confirmed) 1 Active 1Client had been seen by Jazz Francois at [facility]. Client has no-showed to last appt and today.She will be targetted for closing if she does not responde to correspondence that will be sent on 02/14/13 Social History Social History Type Response Tobacco Use: 4 or less cigar ettes(less than 1/4 pack)/day in last 30 days. Sex
--- OUTSIDE RECORDS SUMMARY | 2022-11-03 10:39 | XMS_ITS | Continuity of Care Document ---
Author Name Unknown Organization [facility] Address [address] [place] [address]- Care Team Providers Care Group Tester Name Role Phone Ilya De Leon MD Primary Care Physician Encounter [facility] Date(s): 09/18/19 - 10/18/19 [facility]/[address] [address]- [facility] Allergies, Adverse Reactions, Alerts Substance Reaction [...] 11/06/18 8:33:38 EDT, Route to Pharmacy Electronically, [id number], [facility] Start Date: 11/06/18 Status: Ordered Dovonex 0.005% topical cream 1 applicator, Topically, 2 times a day, # 60 Gm, 5 Refills, Maintenance, 07/07/19 17:30:00 EDT, [facility], 1 applicator Topically 2 [...] 0 Refills, Soft Stop, 10/18/19 13:38:00 EDT, [facility] 3, 158, cm, ... Start Date: 10/18/19 Status: Ordered Medrol Dosepak 4 mg oral tablet per label intructions, By Mouth, Once, as on label, # 1 each, 0 Refills, Soft Stop, 08/11/19 20:08:00 EDT, [facility] 3, 158, cm, 12/24/18 10:25:00 EDT, Height, [...] 0 Refills, Soft Stop, 08/27/19 14:17:00 EDT, [facility], 1 applicator Topically 3x per week, 158, [...] 3 Refills, Soft Stop, 09/23/19 15:13:00 EDT, [facility], 7, APPLY TOPICALLY TO [...] 0 Refills, Maintenance, 04/06/19 20:19:00 EST, Tablet, [facility], 158, cm, 12/24/18 10:25:00 EDT, Height, 75.5, kg, 04/06/19 17:01:00 EST, Dry Weight Start Date: 04/06/19 Stop Date: 04/13/19 Status: Ordered Problem List Condition Effective Dates Status Health Status Inform ant Opioid type dependence, continuous(Confirmed) 1 Active 1Client had been seen by Jazz Francois at [facility]. Client has no-showed to last appt and today.She will be targetted for closing if she does not responde to correspondence that will be sent on 02/14/13 Social History Social History Type Response Smoking Status 10 or more cigarette s (1/2 pack or more)/day in last 30 days entered on: 01/24/18 Sex
--- OUTSIDE RECORDS SUMMARY | 2022-11-03 10:39 | XMS_ITS | Continuity of Care Document ---
Author Name Unknown Organization [facility] Address Unknown Care Team Providers Care Sample Maker Hand Name Role Phone Ilya De Leon MD Primary Care Physician Encounter [facility] Date(s): 03/29/21 - 04/28/21 [facility] Allergies, Adverse Reactions, Alerts Substance [...] FLUVIRIN MULTIDOSE ADMINISTERED AT [facility] Medications capsaicin 0.025% topical cream See Instructions, APPLY TO AFFECTED AREA TWICE A DAY, # 60 Gm, 1 Refills, [id number], 30, APPLY TO AFFECTED AREA TWICE A DAY, 155, cm, 04/08/21 11:33:00 EST, Height, 95.9, kg, 12/05/20 10:08:00 EDT, Dry Weight Start Date: 04/17/21 Status: Ordered Cavilon Emollient topical cream 1 application, Topically, 2 times a day, PRN for dry skin, # 454 Gm, 1 Refills, Maintenance, 09/30/19 16:26:00 EDT, Cream, [facility], 1 application Topically 2 times a day,PRN:for dry skin, 158, cm, 08/27/19 13:02:00 EDT, Height, 76, kg... Start Date: 09/30/19 Status: Ordered cetirizine 10 mg oral tablet 1 tablet = 10 mg, By Mouth, Daily, # 30 tablet, 0 Refills, Maintenance, 12/03/20 13:44:00 EDT, Tablet, [facility]/pharmacy #[id number], Partial fill upon patient request if the prescription is for a schedule II opioid drug., 158, cm, 12/03/20 13:27:00 EDT, Height,... Start Date: 12/03/20 Status: Ordered Claritin 10 mg oral tablet 10 mg, 1, tablet, By Mouth, Daily, # 15 tablet, Refills 3, Tot. Refills 3, Maintenance, 11/06/18 8:33:38 EDT, Route to Pharmacy Electronically, [id number], [facility] Start Date: 11/06/18 Status: Ordered clindamycin 1% topical gel 1 application, Topically, 2 times a day, # 30 Gm, 0 Refills, Maintenance, 04/08/21 12:14:00 EST, Gel, [facility], Partial fill upon patient request if the prescription is for a schedule II opioid drug., 1 application Topically 2 ti... Start Date: 04/08/21 Status: Ordered clindamycin 150 mg oral capsule See Instructions, 3 capsultes 3 times a day, # 45 capsule, 0 Refills, Acute 01/20/22 14:53:00 EST, 03/17/21 14:50:00 EST, Capsule, [facility], Partial fill upon patient request ifthe prescription is for a schedule II opioid drug.,... Start Date: 03/17/21 Stop Date: 01/20/22 Status: Ordered clonazePAM 0.5 mg oral tablet 1 tablet = 0.5 mg, By Mouth, Daily, FINANCIAL MANAGEMENT CONSULTANT checked, # 14 tablet, 0 Refills, Maintenance, 04/18/21 12:09:00 EST, Tablet, [facility]/pharmacy #[id number], Partial fill upon patient request if the prescription is for aschedule II opioid drug., 155, cm, 04/18/21 10:12:0... Start Date: 04/18/21 Stop Date: 05/02/21 Status: Ordered clonazePAM 0.5 mg oral tablet 1 tablet = 0.5 mg, By Mouth, Daily, # 14 tablet, 0 Refills, Maintenance, 05/02/21 18:09:00 EST, Tablet, [facility]/pharmacy #[id number], FINANCIAL MANAGEMENT CONSULTANT reviewed, covering for Dr. De Leon, 05/02/21, 155, cm, 04/18/21 10:12:00 EST, Height, 95.9, kg, 12/05/20 10:08:00 EDT, Dry... Start Date: 05/02/21 Stop Date: 05/16/21 Status: Ordered diphenhydrAMINE 25 mg oral tablet 1 tablet = 25 mg, By Mouth, 3 times a day, PRN as needed for itching, Will cause drowsiness, # 30 tablet, 0 Refills, Maintenance, 07/16/20 15:11:00 EDT, Tablet, [facility], Partial fill upon patient request if the prescription is f... Start Date: 07/16/20 Status: Ordered Dovonex 0.005% topical cream 1 applicator, Topically, 2 times a day, # 60 Gm, 5 Refills, Maintenance, 07/07/19 17:30:00 EDT, [facility], 1 applicator Topically 2 times a [...] Gm, 0 Refills, Maintenance, 04/27/20 14:35:00 EST, [place], [facility], Partial fill upon patient request if theprescription is for a schedule II opioid drug., 1... Start Date: 04/27/20 Stop Date: 05/27/20 Status: Ordered furosemide 20 mg oral tablet 1, tablet, By Mouth, Daily, # 30 tablet, Refills 3, Tot. Refills 3, Maintenance, 04/18/21 12:11:00 EST, Route to Pharmacy Electronically, [facility]/pharmacy #[id number], 155, cm, 04/18/21 10:12:00 EST, [...] A DAY, # 50 Gm, 1 Refills, [id number], 30, APPLY A THIN FILM TO THE AFFECTED SKIN AND RUB IN GENTLY AND COMPLETELY TWICE A DAY, 155, cm, 12/05/20 10:0... Start Date: 03/15/21 Status: Ordered hydrocortisone 1% topical cream 1 application, Topically, 2 times a day, Apply to rash areas, # 60 Gm, 3 Refills, Maintenance, 06/04/19 14:52:00 EDT, Cream, [facility], 1 application Topically 2 times a day,Instr:Apply to rash areas, 158, cm, 12/24/18 10:25:00 EDT, Hei... Start Date: 06/04/19 Status: Ordered ketoconazole 2% topical shampoo See Instructions, APPLY 1 APPLICATOR TOPICALLY 3X PER WEEK, # 120 mL, 3 Refills, [id number], 30, APPLY 1 APPLICATOR TOPICALLY 3X PER [...] 2 Refills, Maintenance, 03/08/21 10:26:00 EST, Cream, [facility]/pharmacy #[id number], Partial fill upon patient request if the prescription is for a schedule II opioid drug., 1 application Topically 3 times a day,... Start Date: 03/08/21 Status: Ordered [place] 0.65% nasal spray 2 sprays, Nares, Both, 4 times a day, # 1 each, 0 Refills, Maintenance, 12/03/20 13:46:00 EDT, [facility]/pharmacy #[id number], Partial fill upon patient request [...] tablet, 0 Refills, Maintenance, 04/18/21 12:08:00 EST, [facility]/pharmacy #[id number], Partial fill upon patient request if the prescription is for a schedule II opioid drug., 155, cm, 04/18/21 10:12:00 EST, Height, 95.9, k... Start Date: 04/18/21 Stop Date: 05/02/21 Status: Ordered selenium sulfide 2.5% topical lotion See Instructions, APPLY TOPICALLY TO AFFECTED AREA EVERY DAY FOR 7 DAYS, # 120 mL, 3 Refills, Soft Stop, 04/26/21 18:07:00 EST, [facility]/pharmacy #[id number], 7, APPLY TOPICALLY TO AFFECTED AREA EVERY DAY FOR 7DAYS, 155, cm, 04/18/21 10:12:00 EST, Height, 95.9,... Start Date: 04/26/21 Status: Ordered Shingrix intramuscular injection = 0.5 mL, Intramuscular, Once, repeat dose in 2 to 6 months, # 2 each, 0 Refills, Soft Stop, 05/27/20 11:03:00 EDT, Powder, [facility] [...] 1 Refills, Maintenance, 03/10/20 18:21:00 EST, Cream, [facility], Partial fill upon patient request if the prescription is fora schedule II opioid drug., 1 application Topically... Start Date: 03/10/20 Status: Ordered tiZANidine 2 mg oral tablet 2 mg, 1, tablet, By Mouth, 3 times a day, for 30 days, # 90 tablet, Refills 0, Tot. Refills 0, Acute 05/08/21 12:19:00 EST, 04/08/21 12:19:00 EST, Route to Pharmacy Electronically, [facility], Partial fill upon patient request if t... Start Date: 04/08/21 Stop Date: 05/08/21 Status: Ordered Valium 5 mg oral tablet 5 mg, 1, tablet, By Mouth, Daily at bedtime, PRN, # 3 tablet, Refills 0, Tot. Refills 0, Maintenance, Spasm, 04/03/21 11:16:00 EST, Route to Pharmacy Electronically, [facility], Partialfill upon patient request [...]
--- OUTSIDE RECORDS SUMMARY | 2022-11-03 10:39 | XMS_ITS | Continuity of Care Document ---
Author Name Unknown Organization [facility] Address Unknown Care Team Providers Care Retirement Actuary Name Role Phone Haley NEWMAN, Ilya Primary Care Physician Encounter [facility] Date(s): 05/23/21 - 08/17/21 [facility] Attending Physician: Ilya [...] Maintenance, 06/29/21 15:10:00 EDT, ER Tablet, [id number], Partial fill upon patient request if the prescription is for a schedule II opioid drug., 155, cm, 05/30/21 15:34:... Start Date: 06/29/21 Status: Ordered capsaicin 0.025% topical cream See Instructions, APPLY TO AFFECTED AREA TWICE A DAY, # 60 Gm, 1 Refills, [id number], 30, APPLY TO AFFECTED AREA TWICE A DAY, 155, cm, 05/30/21 15:34:00 EDT, Height, 95.9, kg, 12/05/20 10:08:00 EDT, Dry Weight Start Date: 05/31/21 Status: Ordered Cavilon Emollient topical cream 1 application, Topically, 2 times a day, PRN for dry skin, # 454 Gm, 1 Refills, Maintenance, 09/30/19 16:26:00 EDT, Cream, [facility], 1 application Topically 2 times a day,PRN:for dry skin, 158, cm, 08/27/19 13:02:00 EDT, Height, 76, kg... Start Date: 09/30/19 Status: Ordered clonazePAM 0.5 mg oral tablet 1 tablet = 0.5 mg, By Mouth, Daily, May fill 08/12/21, # 14 tablet, 0 Refills, Maintenance, 08/11/21 10:18:00 EDT, Tablet, [facility], BAKERY MANAGER reviewed, covering for Dr. De Leon, 155, cm, 05/30/21 15:34:00 EDT, Height, 95.9, kg, 12/05/20... Start Date: 08/11/21 Stop Date: 08/25/21 Status: Ordered Dovonex 0.005% topical cream 1 applicator, Topically, 2 times a day, # 60 Gm, 5 Refills, Maintenance, 07/07/19 17:30:00 EDT, [facility], 1 applicator Topically 2 times a day,x30 days, 158, cm, 12/24/18 10:25:00 EDT, Height, 76, kg, 04/12/19 15:31:00 EST, Dry Weight Start Date: 07/07/19 Stop Date: 01/03/20 Status: Ordered fluticasone 50 mcg/inh nasal spray 1 sprays, Nares, Both, 2 times a day, in each nostril. for allergies, # 16 Gm, 0 Refills, Maintenance, 04/27/20 14:35:00 EST, [place], [facility] 3, Partial fill upon patient request if theprescription is for a schedule II opioid drug., 1... Start Date: 04/27/20 Stop Date: 05/27/20 Status: Ordered furosemide 20 mg oral tablet 1, tablet, By Mouth, Daily, # 30 tablet, Refills 3, Tot. Refills 3, Maintenance, 04/18/21 12:11:00 EST, Route to Pharmacy Electronically, [facility]/pharmacy #[id number], 155, cm, 04/18/21 10:12:00 EST, Height, 95.9, kg, 12/05/20 10:08:00 EDT, Dry Weight Start Date: 04/18/21 Status: Ordered halobetasol 0.05% topical ointment See Instructions, APPLY A THIN FILM TO THE AFFECTED SKIN AND RUB IN GENTLY AND COMPLETELY TWICE A DAY, # 50 Gm, 1 Refills, [id number], 30, APPLY A THIN FILM TO THE AFFECTED SKIN AND RUB IN GENTLY AND COMPLETELY TWICE A DAY, 155, cm, 12/05/20 10:0... Start Date: 03/15/21 Status: Ordered hydrocortisone 1% topical cream 1 application, Topically, 2 times a day, # 30 Gm, 0 Refills, Maintenance, 06/17/21 11:42:00 EDT, Cream, [facility], Partial fill upon patient request if the prescription is for a schedule II opioid drug., 1 application Topically 2 times... Start Date: 06/17/21 Status: Ordered ketoconazole 2% topical shampoo See Instructions, APPLY 1 APPLICATOR TOPICALLY 3X PER WEEK, # 120 mL, 3 Refills, [id number], 30, APPLY 1 APPLICATOR TOPICALLY 3X PER WEEK, 155, cm, 05/30/21 15:34:00 EDT, Height, 95.9, kg, 12/05/20 10:08:00 EDT, Dry Weight Start Date: 08/02/21 Status: Ordered loratadine 10 mg oral tablet 1, tablet, By Mouth, Daily, # 15 tablet, Refills 3, Route to Pharmacy Electronically, [id number], 155, cm, 05/30/21 15:34:00 EDT, Height, 95.9, kg, 12/05/20 10:08:00 EDT, Dry Weight Start Date: 06/21/21 Status: Ordered Methadone By Mouth, 0 Refills, Maintenance Start Date: 12/25/11 Status: Ordered mupirocin 2% topical cream 1 application, Topically, 3 times a day, # 30 Gm, 2 Refills, Maintenance, 03/08/21 10:26:00 EST, Cream[id number] Partial fill upon [...] Soft Stop, 07/27/20 11:50:00 EDT, Cream, [facility], 1 applicationTopically Once,Instr:to skin head to feet, remove b... Start Date: 07/27/20 Status: Ordered predniSONE 10 mg oral tablet 1 tablet = 10 mg, By Mouth, Daily, [facility], # 3 tablet, 0 Refills, Maintenance, 08/09/21 19:37:00EDT, [facility]/pharmacy #[id number], Partial fill upon patient request if the prescription is for a schedule IIopioid drug., 155, cm, 05/30/21 15:34:00 EDT, [place]... Start Date: 08/09/21 Stop Date: 08/12/21 Status: Ordered predniSONE 10 mg oral tablet 1 tablet, By Mouth, Daily, for 14 days, May fill 08/12, # 14 tablet, 0 Refills, Physician Stop 08/25/21 10:16:00 EDT, 08/11/21 10:16:00 EDT, [facility], 155, cm, 05/30/21 15:34:00 EDT, Height, 95.9, kg, 12/05/20 10:08:00 EDT, Dry Weight Start Date: 08/11/21 Stop Date: 08/25/21 Status: Ordered selenium sulfide 2.5% topical lotion See Instructions, APPLY TOPICALLY TO AFFECTED AREA EVERY DAY FOR 7 DAYS, # 120 mL, 3 Refills, Soft Stop, 04/26/21 18:07:00 EST, [id number], 7, APPLY TOPICALLY TO AFFECTED AREA EVERY DAY FOR 7DAYS, 155, cm, 04/18/21 10:12:00 EST, Height, 95.9,... Start Date: 04/26/21 Status: Ordered tiZANidine 2 mg oral tablet 1, tablet, By Mouth, 3 times a day, # 60 tablet, Refills 0, Route to Pharmacy Electronically, [id number], 155, cm, 05/03/21 14:39:00 EST, Height, 95.9, [...]
--- OUTSIDE RECORDS SUMMARY | 2022-11-03 10:39 | XMS_ITS | Continuity of Care Document ---
Author Name Unknown Organization [facility] Address [address] [place] [id number]- Care Team Providers Care Warehouse Attendant Name Role Phone Haley NEWMAN, Ilya Primary Care Physician Encounter [facility] Date(s): 06/23/20 - 07/23/20 [facility]/[address] [address]- Allergies, Adverse Reactions, Alerts Substance Reaction Severity [...] 1 Refills, Maintenance, 09/30/19 16:26:00 EDT, Cream, [facility], 1 application Topically 2 times a day,PRN:for dry skin, 158, cm, 08/27/19 13:02:00 EDT, Height, 76, kg... Start Date: 09/30/19 Status: Ordered cetirizine 10 mg oral tablet 1 tablet = 10 mg, By Mouth, Daily, for allergies. Do NOT take with claritin, # 30 tablet, 0 Refills, Maintenance, 07/23/20 11:37:00 EDT, Tablet, [facility], Partial fill upon patient request if the prescription is for a schedule II... Start Date: 07/23/20 Stop Date: 08/22/20 Status: Ordered Claritin 10 mg oral tablet 10 mg, 1, tablet, By Mouth, Daily, # 15 tablet, Refills 3, Tot. Refills 3, Maintenance, 11/06/18 8:33:38 EDT, Route to Pharmacy Electronically, [id number], [facility] Start Date: 11/06/18 Status: Ordered diphenhydrAMINE 25 mg oral tablet 1 tablet = 25 mg, By Mouth, 3 times a day, PRN as needed for itching, Will cause drowsiness, # 30 tablet, 0 Refills, Maintenance, 07/16/20 15:11:00 EDT, Tablet, [facility], Partial fill upon patient request if the prescription is f... Start Date: 07/16/20 Status: Ordered Dovonex 0.005% topical cream 1 applicator, Topically, 2 times a day, # 60 Gm, 5 Refills, Maintenance, 07/07/19 17:30:00 EDT, [facility] 3, 1 applicator Topically 2 times [...] 0 Refills, Maintenance, 04/27/20 14:35:00 EST, [place], [facility], Partial fill upon patient request if theprescription is for a schedule II opioid drug., 1... Start Date: 04/27/20 Stop Date: 05/27/20 Status: Ordered hydrocortisone 1% topical cream 1 application, Topically, 2 times a day, Apply to rash areas, # 60 Gm, 3 Refills, Maintenance, 06/04/19 14:52:00 EDT, Cream, [facility], 1 application Topically 2 times a [...] 0 Refills, Soft Stop, 07/07/20 13:01:00 EDT, [facility] 3, 158, cm, 06/23/20 13:26:00 EDT... Start Date: 07/07/20 Status: Ordered Methadone By Mouth, 0 Refills, Maintenance Start Date: 12/25/11 Status: Ordered mupirocin 2% topical ointment 1 application, Topically, 3 times a day, for 7 days, For lesion on right upper arm, # 22 Gm, 0 Refills, Acute 07/30/20 11:39:00 EDT, 07/23/20 11:39:00 EDT, [facility], Partial fill upon patient request if the prescription is for a... Start Date: 07/23/20 Stop Date: 07/30/20 Status: Ordered Nizoral 2% topical shampoo See Instructions, 1 applicator Topically 3x per week, # 120 mL, 10 Refills, Soft Stop, 05/13/20 11:05:00 EST, [facility], 1 applicator Topically 3x per week, 158, cm, 05/10/20 11:36:00 EST, Height, 76, kg, 04/12/19 15:31:00 EST, Dry Weight Start Date: 05/13/20 Status: Ordered oxyCODONE 5 mg oral tablet 5 mg, 1, tablet, By Mouth, Every 6 hours, PRN, # 12 tablet, Refills 0, Tot. Refills 0, Acute 08/02/20 12:00:00 EDT, Pain , Severe, 07/23/20 11:48:00 EDT, Route to Pharmacy Electronically, [facility], Partial fill upon patient reque... Start [...] Acute 07/28/20 11:51:00 EDT,07/23/20 11:51:00 EDT, Tablet, [facility], Partial fill upon patient request ifthe prescription is for a schedule II opioid drug.,... Start Date: 07/23/20 Stop Date: 07/28/20 Status: Ordered selenium sulfide 2.5% topical lotion See Instructions, APPLY TOPICALLY TO AFFECTED AREA EVERY DAY FOR 7 DAYS, # 120 mL, 3 Refills, Soft Stop, 07/23/20 11:40:00 EDT, [facility], 7, APPLY TOPICALLY TO AFFECTED AREA EVERY DAY FOR 7 DAYS, 158, cm, 07/23/20 11:13:00 EDT, H... Start Date: 07/23/20 Status: Ordered Shingrix intramuscular injection = 0.5 mL, Intramuscular, Once, repeat dose in 2 to 6 months, # 2 each, 0 Refills, Soft Stop, 05/27/20 11:03:00 EDT, Powder, [facility], Partial fill upon patient request if [...] 1 Refills, Maintenance, 03/10/20 18:21:00 EST, Cream, [facility] 3, Partial fill upon patient request if the prescription is fora schedule II opioid drug., 1 application Topically... Start Date: 03/10/20 Status: Ordered tetracycline 500 mg oral capsule 1 capsule = 500 mg, By Mouth, Every 6 hours, for 7 days, # 28 capsule, 0 Refills, Acute 07/30/20 11:52:00 EDT, 07/23/20 11:52:00 EDT, Capsule, [facility], Partial fill upon patient request if [...] 0 Refills, Maintenance, 07/23/20 11:37:00 EDT, Gel, [facility], 1 application Topically 4 times a [...]
--- OUTSIDE RECORDS SUMMARY | 2022-11-03 10:40 | XMS_ITS | Continuity of Care Document ---
Author Name Unknown Organization [facility] [employer] [facility] Address [address] [place] [address]- Care Team Providers Care Red Cross Executive Director Name Role Phone Ilya De Leon MD Primary Care Physician Encounter [facility] AC[facility] R [id number] Date(s): 08/06/19 - 09/05/19 [employer] [facility] [facility] [employer] [address] [place] [address]- [facility] Attending Physician: Celsa Lyons Admitting Physician: AdmCelsa [...] 0 Refills, Maintenance, 07/07/19 17:30:00 EDT, Cream, [facility], 1 application Topically 2 times a day,PRN:for dry skin, 158, cm, 12/24/18 10:25:00 EDT, Height, 76, kg... Start Date: 07/07/19 Status: Ordered Claritin 10 mg oral tablet 10 mg, 1, tablet, By Mouth, Daily, # 15 tablet, Refills 3, Tot. Refills 3, Maintenance, 11/06/18 8:33:38 EDT, Route to Pharmacy Electronically, [id number], [facility] Start Date: 11/06/18 Status: Ordered Dovonex 0.005% topical cream 1 applicator, Topically, 2 times a day, # 60 Gm, 5 Refills, Maintenance, 07/07/19 17:30:00 EDT, [facility] 3, 1 applicator Topically 2 [...] 3 Refills, Maintenance, 06/04/19 14:52:00 EDT, Cream, [facility], 1 application Topically [...] # 42 tablet, 0 Refills, Soft Stop, 08/22/19 10:40:00 EDT, [facility] 3, 158, cm, 12/24/18 10:25:00 EDT... Start Date: 08/22/19 Status: Ordered Medrol Dosepak 4 mg oral tablet per label intructions, By Mouth, Once, as on label, # 1 each, 0 Refills, Soft Stop, 08/11/19 20:08:00 EDT, [facility] 3, 158, cm, 12/24/18 10:25:00 [...] 0 Refills, Soft Stop, 08/27/19 14:17:00 EDT, [facility], 1 applicator Topically 3x per week, 158, cm, 08/27/19 13:02:00 EDT, Height, 76, kg, 04/12/19 15:31:00 EST, Dry... Start Date: 08/27/19 Status: Ordered permethrin 5% topical cream 1 application, Topically, Once, to skin head to feet, remove by washing after 8 to 14 hours, # 60 Gm, 0 Refills, Soft Stop, 08/08/18 15:08:37 EDT, Cream Start Date: 08/08/18 Status: Ordered predniSONE 50 mg oral tablet 1 tablet = 50 mg, By Mouth, Daily, for 5 days, # 5 tablet, 0 Refills, Acute 09/10/19 19:34:00 EDT, 09/05/19 19:34:00 EDT, [facility]/pharmacy #[id number], 158, cm, 08/27/19 13:02:00 EDT, Height, 76, kg, 04/12/19 15:31:00 EST, Dry Weight Start Date: 09/05/19 Stop Date: 09/10/19 Status: Ordered selenium sulfide 2.5% topical lotion See Instructions, APPLY TOPICALLY TO AFFECTED AREA EVERY DAY FOR 7 DAYS, # 120 mL, 3 Refills, Maintenance, [facility], 7, APPLY TOPICALLY TO AFFECTED AREA EVERY DAY FOR 7 DAYS, 158, cm, 12/24/18 10:25:00 EDT, Height, 76, kg, 04/12/19 15:31:00 E... Start Date: 08/12/19 Status: Ordered shower grab bar shower grab [...] 0 Refills, Maintenance, 04/06/19 20:19:00 EST, Tablet, [facility], 158, cm, 12/24/18 10:25:00 [...]
--- OUTSIDE RECORDS SUMMARY | 2022-11-03 10:40 | XMS_ITS | Continuity of Care Document ---
Author Name Unknown Organization [facility] ter Address [address] [place] [id number]- Care Team Providers Care Drugless Physician Name Role Phone Ilya De Leon MD Primary Care Physician Encounter [facility] Date(s): 06/15/20 - 09/23/[address] [id number] Attending Physician: Robert Rosario MD, I Admitting Physician: Robert Rosario MD, I Referring Physician: Robert Rosario MD, I Allergies, Adverse [...] Refills, Maintenance, 09/30/19 16:26:00 EDT, Cream, [facility], 1 application Topically 2 times a day,PRN:for dry skin, 158, cm, 08/27/19 13:02:00 EDT, Height, 76, kg... Start Date: 09/30/19 Status: Ordered cetirizine 10 mg oral tablet 1 tablet = 10 mg, By Mouth, Daily, for allergies. Do NOT take with claritin, # 30 tablet, 0 Refills, Maintenance, 07/23/20 11:37:00 EDT, Tablet, [facility], Partial fill upon patient request if the prescription is for a schedule II... Start Date: 07/23/20 Stop Date: 08/22/20 Status: Ordered Claritin 10 mg oral tablet 10 mg, 1, tablet, By Mouth, Daily, # 15 tablet, Refills 3, Tot. Refills 3, Maintenance, 11/06/18 8:33:38 EDT, Route to Pharmacy Electronically, [id number], [facility] Start Date: 11/06/18 Status: Ordered clonazePAM 0.5 mg oral tablet 1 tablet = 0.5 mg, By Mouth, Daily, # 28 tablet, 0 Refills, Maintenance, 09/22/20 12:58:00 EDT, Tablet, [facility], Partial fill upon patient request if the prescription is for a schedule II opioid drug., 158, cm, 09/08/20 14:36:00... Start Date: 09/22/20 Status: Ordered diphenhydrAMINE 25 mg oral tablet 1 tablet = 25 mg, By Mouth, 3 times a day, PRN as needed for itching, Will cause drowsiness, # 30 tablet, 0 Refills, Maintenance, 07/16/20 15:11:00 EDT, Tablet, [facility], Partial fill upon patient request if the prescription is f... Start Date: 07/16/20 Status: Ordered Dovonex 0.005% topical cream 1 applicator, Topically, 2 times a day, # 60 Gm, 5 Refills, Maintenance, 07/07/19 17:30:00 EDT, [facility] 3, 1 applicator Topically 2 times a day,x30 days, 158, cm, 12/24/18 10:25:00 EDT, Height, 76, kg, 04/12/19 15:31:00 EST, Dry Weight Start Date: 4/27/20 Stop Date: 01/03/20 Status: Ordered Eucerin Plus [...] Gm, 0 Refills, Maintenance, 04/27/20 14:35:00 EST, [place], [facility] 3, Partial fill upon patient request if theprescription is for a schedule II opioid drug., 1... Start Date: 04/27/20 Stop Date: 05/27/20 Status: Ordered furosemide 20 mg oral tablet 20 mg, 1, tablet, By Mouth, Daily, # 30 tablet, Refills 1, Tot. Refills 1, Maintenance, 08/27/20 16:12:00 EDT, Route to Pharmacy Electronically, [facility]/pharmacy #[id number], Partial fill upon patient request if the prescription is for a schedule II opioid drug... Start Date: 08/27/20 Status: Ordered halobetasol 0.05% topical cream 1 application, Topically, 2 times a day, # 50 Gm, 3 Refills, Maintenance, 08/02/20 12:54:00 EDT, Cream, [facility], Partial fill upon patient request if the prescription is for a schedule II opioid drug., 1 application Topically 2... Start Date: 08/02/20 Status: Ordered hydrocortisone 1% topical cream 1 application, Topically, 2 times a day, Apply to rash areas, # 60 Gm, 3 Refills, Maintenance, 06/04/19 14:52:00 EDT, Cream, [facility] 3, 1 application Topically 2 times a day,Instr:Apply to rash areas, 158, cm, 12/24/18 10:25:00 EDT, Hei... Start Date: 06/04/19 Status: Ordered left soft knee brace left soft knee brace, See Instructions, # 1 each, Refills 0, Tot. Refills 0, Maintenance, arthritis, 09/23/20 14:52:00 EDT, Supply Start Date: 09/23/20 Status: Ordered loratadine 10 mg oral tablet [...] 2 Refills, Maintenance, 09/14/20 17:22:00 EDT, Cream, [facility]/pharmacy #[id number], Partial fill upon patient request if the prescription is for a schedule II opioid drug., 1 application Topically 3 times a day,... Start Date: 09/14/20 Status: Ordered Nizoral 2% topical shampoo See Instructions, 1 applicator Topically 3x per week, # 120 mL, 3 Refills, Soft Stop, 08/12/20 10:30:00 EDT, [facility]/pharmacy #[id number], 1 applicator Topically 3x per [...] 0 Refills, Maintenance, 09/14/20 17:20:00 EDT, Tablet, [facility]/pharmacy #[id number], Partial fill upon patient request if the prescription is for a schedule II opioid drug., 158, cm, 09/08/20 14:36:00 EDT,... Start Date: 09/14/20 Stop Date: 09/24/20 Status: Ordered selenium sulfide 2.5% topical lotion See Instructions, APPLY TOPICALLY TO AFFECTED AREA EVERY DAY FOR 7 DAYS, # 120 mL, 3 Refills, Soft Stop, 07/23/20 11:40:00 EDT, [facility], 7, APPLY TOPICALLY TO AFFECTED AREA EVERY DAY FOR 7 DAYS, 158, cm, 07/23/20 11:13:00 EDT, H... Start Date: 07/23/20 Status: Ordered Shingrix intramuscular injection = 0.5 mL, Intramuscular, Once, repeat dose in 2 to 6 months, # 2 each, 0 Refills, Soft Stop, 05/27/20 11:03:00 EDT, Powder, [facility], Partial fill upon patient request if [...] Refills, Maintenance, 03/10/20 18:21:00 EST, Cream, [facility] 3, Partial fill upon patient request [...] 0 Refills, Maintenance, 07/23/20 11:37:00 EDT, Gel, [facility], 1 application Topically 4 times a day, 158, cm, 07/23/20 11:13:00 EDT, Height, 82, kg, 07/21/20 20:18:00 EDT, Dry We... Start Date: 07/23/20 Status: Ordered Problem List Condition Effective Dates Status Health Status Inform ant Opioid type dependence, continuous(Confirmed) 1 Active 1Client had been seen by Jazz Francois at [facility]. Client has no-showed to last appt and today.She will be targetted for closing if she does not responde to correspondence that will be sent on 02/14/13 Social History Social History Type Response Smoking Status 5-9 cigarettes (betw een 1/4 to 1/2 pack)/day in last 30 days entered on: 09/08/20 Sex
--- OUTSIDE RECORDS SUMMARY | 2022-11-03 10:40 | XMS_ITS | Continuity of Care Document ---
Author Name Unknown Organization [facility] Address [address] [place] [address]- Care Team Providers Care Chief Writer Name Role Phone Ilya De Leon MD Primary Care Physician Encounter [facility] [place] [id number] Date(s): 11/14/19 - 12/14/19 [facility] [place] [address] [place] [address]- [facility] Attending Physician: Admtr, [id number] Allergies, Adverse Reactions, Alerts [...] Refills, Maintenance, 09/30/19 16:26:00 EDT, Cream, [facility], 1 application Topically 2 times a day,PRN:for dry skin, 158, cm, 08/27/19 13:02:00 EDT, Height, 76, kg... Start Date: 09/30/19 Status: Ordered Claritin 10 mg oral tablet 10 mg, 1, tablet, By Mouth, Daily, # 15 tablet, Refills 3, Tot. Refills 3, Maintenance, 11/06/18 8:33:38 EDT, Route to Pharmacy Electronically, [id number], [facility] Start Date: 11/06/18 Status: Ordered Dovonex 0.005% topical cream 1 applicator, Topically, 2 times a day, # 60 Gm, 5 Refills, Maintenance, 07/07/19 17:30:00 EDT, [facility] 3, 1 applicator Topically [...] Refills, Maintenance, 06/04/19 14:52:00 EDT, Cream, [facility], 1 application Topically [...] 0 Refills, Soft Stop, 12/10/19 9:52:00 EDT, [facility], 158, cm, ... Start Date: 12/10/19 Status: Ordered Medrol Dosepak 4 mg oral tablet per label intructions, By Mouth, Once, as on label, # 1 each, 0 Refills, Soft Stop, 08/11/19 20:08:00 EDT, [facility] 3, 158, cm, 12/24/18 10:25:00 EDT, [...] Refills, Soft Stop, 08/27/19 14:17:00 EDT, [facility], 1 applicator Topically 3x per week, 158, [...] DAYS, # 120 mL, 3 Refills, Maintenance, [facility], 7, APPLY TOPICALLY TO AFFECTED AREA [...] Refills, Maintenance, 04/06/19 20:19:00 EST, Tablet, [facility], 158, cm, 12/24/18 10:25:00 EDT, [...]
--- OUTSIDE RECORDS SUMMARY | 2022-11-03 10:40 | XMS_ITS | Continuity of Care Document ---
Author Name Unknown Organization [facility] Address Unknown Care Team Providers Care Waiter/Waitress Tourist Class Name Role Phone Haley NEWMAN, Ilya Primary Care Physician En[place] [facility] [place] [place] Date(s): 10/27/20 - 11/26/20 [facility] Allergies, Adverse [...] FLUVIRIN MULTIDOSE [facility] Medications acetaminophen 500 mg oral tablet 2 tablet = 1,000 mg, By Mouth, 3 times a day, PRN as needed for fever, not to exceed 3000 mg/day take scheduled three times a day, # 100 tablet, 1 Refills, Acute 12/26/20 11:44:00 EDT, 09/24/20 11:43:00 EDT, Tablet, [facility]/pharmacy #[id number], Partial fill u... Start Date: 09/24/20 Stop [...] 0 Refills, Maintenance, 07/23/20 11:37:00 EDT, Tablet, [facility], Partial fill upon patient request if the prescription is for a schedule II... Start Date: 07/23/20 Stop Date: 08/22/20 Status: Ordered Claritin 10 mg oral tablet 10 mg, 1, tablet, By Mouth, Daily, # 15 tablet, Refills 3, Tot. Refills 3, Maintenance, 11/06/18 8:33:38 EDT, Route to Pharmacy Electronically, [id number], [facility] Start Date: 11/06/18 Status: Ordered clonazePAM 0.5 mg oral tablet 1 tablet = 0.5 mg, By Mouth, Daily, # 1 tablet, 0 Refills, Maintenance, 10/17/20 9:00:00 EDT, Tablet, [facility] 3, Partial fill upon patient request if the prescription is for a scheduleII opioid drug., 158, cm, 09/24/20 10:45:00 EDT, He... Start Date: 10/17/20 Stop Date: 10/18/20 Status: Ordered clonazePAM 0.5 mg oral tablet 1 tablet = 0.5 mg, By Mouth, Daily, # 28 tablet, 0 Refills, Maintenance, 11/18/20 15:29:00 EDT, Tablet, [facility]/pharmacy #[id number], Partial [...] 0 Refills, Maintenance, 07/16/20 15:11:00 EDT, Tablet, [facility], Partial fill upon patient request if [...] Gm, 0 Refills, Maintenance, 04/27/20 14:35:00 EST, [place], [facility] 3, Partial fill upon patient request if theprescription is for a schedule II opioid drug., 1... Start Date: 04/27/20 Stop Date: 05/27/20 Status: Ordered furosemide 20 mg oral tablet 1, tablet, By Mouth, Daily, # 30 tablet, Refills 3, Tot. Refills 0, Maintenance, 10/21/20 11:22:00 EDT, Route to Pharmacy Electronically, [id number], 158, cm, 10/18/20 10:46:00 EDT, Height, 95.4, kg, 10/16/20 10:11:00 EDT, Dry Weight Start Date: 10/21/20 Status: Ordered hydrocortisone 1% topical cream 1 application, Topically, 2 times a day, Apply to rash areas, # 60 Gm, 3 Refills, Maintenance, 06/04/19 14:52:00 EDT, Cream, [facility], [...] 12/26/20 11:39:00 EDT, 09/24/20 11:38:00 EDT, Ointment, [facility]/pharmacy #[id number], Partial fill upon [...] Refills, Soft Stop, 07/27/20 11:50:00 EDT, Cream, [facility], 1 applicationTopically Once,Instr:to skin head to feet, remove b... Start Date: 07/27/20 Status: Ordered predniSONE 5 mg oral tablet 1 tablet = 5 mg, By Mouth, 3 times a day, may fill 11/12/20 for 14 days, # 42 tablet, 0 Refills, Maintenance, 11/10/20 8:29:00 EDT, Tablet, [facility]/pharmacy #[id number], Partial fill upon patient request if the prescription is for a schedule II opioid drug., 158,... Start Date: 11/10/20 Stop Date: 11/24/20 Status: Ordered selenium sulfide 2.5% topical lotion See Instructions, APPLY TOPICALLY TO AFFECTED AREA EVERY DAY FOR 7 DAYS, # 120 mL, 3 Refills, Soft Stop, 07/23/20 11:40:00 EDT, [facility], 7, APPLY TOPICALLY TO AFFECTED AREA EVERY DAY FOR 7 DAYS, 158, cm, 07/23/20 11:13:00 EDT, H... Start Date: 07/23/20 Status: Ordered Shingrix intramuscular injection = 0.5 mL, Intramuscular, Once, repeat dose in 2 to 6 months, # 2 each, 0 Refills, Soft Stop, 05/27/20 11:03:00 EDT, Powder, [facility], Partial fill upon patient request if [...] 0 Refills, Maintenance, 09/24/20 11:47:00 EDT, Gel, [facility]/pharmacy #[id number], 1 application Topically 4 times [...]
--- OUTSIDE RECORDS SUMMARY | 2022-11-03 10:40 | XMS_ITS | Continuity of Care Document ---
Author Name Unknown Organization [facility] Address Unknown Care Team Providers Care Silviculture Professor Name Role Phone Ilya De Leon MD Primary Care Physician Encounter [facility] Date(s): 08/18/21 - 09/17/21 [facility] Allergies, Adverse Reactions, Alerts Substance [...] 1 Refills, [id number], 30, APPLY TO AFFECTED AREA TWICE A DAY, 155, cm, 03/21/22 15:34:00 EDT, Height, 95.9, kg, 12/05/20 10:08:00 EDT, Dry Weight Start Date: 05/31/21 Status: Ordered Cavilon Emollient topical cream 1 application, Topically, 2 times a day, PRN for dry skin, # 454 Gm, 1 Refills, Maintenance, 09/30/19 16:26:00 EDT, Cream, [facility] 3, 1 application Topically 2 times a day,PRN:for dry skin, 158, cm, 08/27/19 13:02:00 EDT, Height, 76, kg... Start Date: 09/30/19 Status: Ordered clonazePAM 0.5 mg oral tablet 1 tablet = 0.5 mg, By Mouth, Daily, May fill 08/12/21, # 7 tablet, 0 Refills, Maintenance, 09/15/21 12:12:00 EDT, Tablet, [facility], INTAKE RN reviewed, covering for Dr. De Leon, 155, cm, 09/15/21 10:14:00 EDT, Height, 106.5, kg, 09/14/21... Start Date: 09/15/21 Stop Date: 09/22/21 Status: Ordered Dovonex 0.005% topical cream 1 applicator, Topically, 2 times a day, # 60 Gm, 5 Refills, Maintenance, 07/07/19 17:30:00 EDT, [facility], 1 applicator Topically 2 times a day,x30 days, 158, cm, 12/24/18 10:25:00 EDT, Height, 76, kg, 04/12/19 15:31:00 EST, Dry Weight Start Date: 07/07/19 Stop Date: 01/03/20 Status: Ordered fluticasone 50 mcg/inh nasal spray 1 sprays, Nares, Both, 2 times a day, in each nostril. for allergies, # 16 Gm, 0 Refills, Maintenance, 04/27/20 14:35:00 EST, [place], [facility] 3, Partial fill upon patient request if theprescription is for a schedule II opioid drug., 1... Start Date: 04/27/20 Stop Date: 05/27/20 Status: Ordered halobetasol 0.05% topical ointment See Instructions, APPLY A THIN FILM TO THE AFFECTED SKIN AND RUB IN GENTLY AND COMPLETELY TWICE A DAY, # 50 Gm, 1 Refills, [id number], 30, APPLY A THIN FILM TO THE AFFECTED SKIN AND RUB IN GENTLY AND COMPLETELY TWICE A DAY, 155, cm, 12/05/20 10:0... Start Date: 03/15/21 Status: Ordered hydrocortisone 1% topical cream 1 application, Topically, 2 times a day, # 30 Gm, 0 Refills, Maintenance, 06/17/21 11:42:00 EDT, Cream, [facility] 3, Partial fill upon patient request if the prescription is for a schedule II opioid drug., 1 application Topically 2 times... Start Date: 06/17/21 Status: Ordered hydrOXYzine hydrochloride 25 mg oral tablet 1 capsule, By Mouth, 3 times a day, PRN for itching, for 30 days, # 90 capsule, 1 Refills, Acute 10/23/21 14:41:00 EDT, 08/24/21 14:41:00 EDT, Capsule, [facility], Partial fill upon patient request if the prescription is for a sche... Start Date: 08/24/21 Stop Date: 10/23/21 Status: Ordered ketoconazole 2% topical shampoo See Instructions, APPLY 1 APPLICATOR TOPICALLY 3X PER WEEK, # 120 mL, 3 Refills, [id number], 30, APPLY 1 APPLICATOR TOPICALLY 3X PER WEEK, 155, cm, 05/30/21 15:34:00 EDT, Height, 95.9, kg, 12/05/20 10:08:00 EDT, Dry Weight Start Date: 08/02/21 Status: Ordered loratadine 10 mg oral tablet 1, tablet, By Mouth, Daily, # 15 tablet, Refills 5, Tot. Refills 5, Maintenance, 08/19/21 9:15:00 EDT, Route to Pharmacy Electronically, [facility]/pharmacy #[id number], 155, cm, 05/30/21 15:34:00 EDT, Height, 95.9, kg, 12/05/20 10:08:00 EDT, Dry Weight Start Date: 08/19/21 Status: Ordered Methadone By Mouth, 0 Refills, Maintenance Start Date: 12/25/11 Status: Ordered mupirocin 2% topical cream 1 application, Topically, 3 times a day, # 30 Gm, 2 Refills, Maintenance, 03/08/21 10:26:00 EST, [id number] Partial fill upon patient request if the prescription is for a schedule II opioid drug., 1 application Topically 3 times a day,... Start Date: 03/08/21 Status: Ordered permethrin 5% topical cream 1 application, Topically, Once, to skin head to feet, remove by washing after 8 to 14 hours, # 60 Gm, 0 Refills, Soft Stop, 07/27/20 11:50:00 EDT, Cream, [facility], 1 applicationTopically Once,Instr:to skin head to feet, remove b... Start Date: 07/27/20 Status: Ordered predniSONE 10 mg oral tablet See Instructions, MADDY 1 TABLETA POR LA BOCA CADA ANDREW POR 7 RAY, # 7 tablet, 0 Refills, [facility], 155, cm, 08/24/21 14:47:00 EDT, Height, 95.9, kg, 12/05/20 10:08:00 EDT, Dry Weight Start Date: 09/08/21 Status: Ordered predniSONE 10 mg oral tablet See Instructions, MADDY 1 TABLETA POR LA BOCA CADA ANDREW POR 7 RAY, # 7 tablet, 0 Refills, [facility], 155, cm, 09/15/21 10:14:00 EDT, Height, 106.5, kg, 09/14/21 9:38:00 EDT, Dry Weight Start Date: 09/15/21 Status: Ordered selenium sulfide 2.5% topical lotion See Instructions, APPLY TOPICALLY TO AFFECTED AREA EVERY DAY FOR 7 DAYS, # 120 mL, 3 Refills, Soft Stop, 04/26/21 18:07:00 EST, [facility]/pharmacy #[id number], 7, APPLY TOPICALLY TO AFFECTED AREA EVERY DAY FOR 7DAYS, 155, cm, 04/18/21 10:12:00 EST, Height, 95.9,... Start Date: 04/26/21 Status: Ordered tiZANidine 2 mg oral tablet 1, tablet, By Mouth, 3 times a day, # 60 tablet, Refills 0, Route to Pharmacy Electronically, [id number], 155, cm, 05/03/21 14:39:00 EST, Height, 95.9, kg, 12/05/20 10:08:00 EDT, Dry Weight Start Date: 05/09/21 Status: Ordered traMADol 50 mg oral tablet 1 tablet = 50 mg, By Mouth, Every 8 hours, PRN Pain , Severe, for 7 days, # 21 tablet, 0 Refills, Acute 09/22/21 12:12:00 EDT, 09/15/21 12:12:00 EDT, Tablet, [facility], Partial fill upon patient request if the prescription is for... Start Date: 09/15/21 Stop Date: 09/22/21 Status: Ordered Problem List Condition Effective Dates [...]
--- OUTSIDE RECORDS SUMMARY | 2022-11-03 10:40 | XMS_ITS | Continuity of Care Document ---
Author Name Unknown Organization [facility] Address Unknown Care Team Providers Care Electro Mechanical Engineer Name Role Phone Ilya De Leon MD Primary Care Physician Encounter [facility] [place] Date(s): 03/25/21 - 05/14/21 [facility] Attending Physician: Ilya De Leon MD Admitting Physician: Ilya De Leon MD Allergies, Adverse Reactions, Alerts Substance Reaction Severity Status penicillin Rash Active aspirin Ibuprofen tight throat Rash Active Reglan Agitated Active Imitrex Chest pain Active morphine HAND [...] 1 Refills, Maintenance, 09/30/19 16:26:00 EDT, Cream, [facility], 1 application Topically 2 times a day,PRN:for dry skin, 158, cm, 08/27/19 13:02:00 EDT, Height, 76, kg... Start Date: 09/30/19 Status: Ordered Claritin 10 mg oral tablet 10 mg, 1, tablet, By Mouth, Daily, # 15 tablet, Refills 3, Tot. Refills 3, Maintenance, 05/03/21 15:42:00 EST, Route to Pharmacy Electronically, [facility]/pharmacy #[id number], 155, cm, 05/03/21 14:39:00 EST, Height, 95.9, kg, 12/05/20 10:08:00 EDT, Dry Weight Start Date: 05/03/21 Status: Ordered clonazePAM 0.5 mg oral tablet 1 tablet = 0.5 mg, By Mouth, Daily, may fill 05/02, # 14 tablet, 0 Refills, Maintenance, 05/01/21 3:37:00 EST, Tablet, [facility]/pharmacy #[id number], RAMP SERVICE AGENT reviewed, covering for Dr. De Leon, 155, cm, 04/18/21 10:12:00 EST, Height, 95.9, kg, 12/05/20 10:08:00 EDT,... Start Date: 05/01/21 Stop Date: 05/15/21 Status: Ordered Dovonex 0.005% topical cream 1 applicator, Topically, 2 times a day, # 60 Gm, 5 Refills, Maintenance, 07/07/19 17:30:00 EDT, [facility], 1 applicator Topically 2 times a day,x30 days, 158, cm, 12/24/18 10:25:00 EDT, Height, 76, kg, 04/12/19 15:31:00 EST, Dry Weight Start Date: 07/07/19 Stop Date: 01/03/20 Status: Ordered fluticasone 50 mcg/inh nasal spray 1 sprays, Nares, Both, 2 times a day, in each nostril. for allergies, # 16 Gm, 0 Refills, Maintenance, 04/27/20 14:35:00 EST, [place], [facility], Partial fill upon patient [...] 1 Refills, [id number], 30, APPLY A THIN FILM TO THE AFFECTED SKIN AND RUB IN GENTLY AND COMPLETELY TWICE A DAY, 155, cm, 12/05/20 10:0... Start Date: 03/15/21 Status: Ordered ketoconazole 2% topical shampoo See Instructions, APPLY 1 APPLICATOR TOPICALLY 3X PER WEEK, # 120 mL, 3 Refills, [id number], 30, APPLY 1 APPLICATOR TOPICALLY 3X PER [...] Refills, Soft Stop, 07/27/20 11:50:00 EDT, Cream, [facility], 1 applicationTopically Once,Instr:to skin head to feet, remove b... Start Date: 07/27/20 Status: Ordered predniSONE 10 mg oral tablet 1 tablet = 10 mg, By Mouth, Daily, may fill 05/02/21, # 14 tablet, 0 Refills, Maintenance, 05/01/21 3:37:00 EST, [facility]/pharmacy #[id number], Partial fill [...] Pharmacy Electronically, [id number], 155, cm, 05/03/21 14:39:00 EST, Height, 95.9, kg, 12/05/20 10:08:00 EDT, Dry Weight Start Date: 05/09/21 Status: Ordered Problem List Condition Effective Dates Status Health Status Inform ant Anxiety(Confirmed) Active Opioid type dependence, continuous(Confirmed) 1 Active Osteoarthritis of left knee(Confirmed) Active Psoriasis(Confirmed) Active Severe obesity(Confirmed) Active 1Client had been seen by Jazz Francois at [facility]. Client has no-showed to last appt and today.She will be targetted for closing if she does not responde to correspondence that will be sent on 02/14/13 Social History Social History Type Response Smoking Status 10 or more cigarette s (1/2 pack or more)/day in last 30 days entered on: 04/18/21 Sex
--- OUTSIDE RECORDS SUMMARY | 2022-11-03 10:40 | XMS_ITS | Continuity of Care Document ---
Author Name Unknown Organization [facility] Address Unknown Care Team Providers Care Aluminum Boat Inspector Name Role Phone Ilya De Leon MD Primary Care Physician Encounter [facility] Date(s): 04/15/21 - 05/15/21 [facility] Allergies, Adverse Reactions, Alerts [...] MULTIDOSE ADMINISTERED AT [facility] Medications Cavilon Emollient topical cream 1 application, Topically, 2 times a day, PRN for dry skin, # 454 Gm, 1 Refills, Maintenance, 09/30/19 16:26:00 EDT, Cream, [facility], 1 application Topically 2 times a day,PRN:for dry skin, 158, cm, 08/27/19 13:02:00 EDT, Height, 76, kg... Start Date: 09/30/19 Status: Ordered Claritin 10 mg oral tablet 10 mg, 1, tablet, By Mouth, Daily, # 15 tablet, Refills 3, Tot. Refills 3, Maintenance, 05/03/21 15:42:00 EST, Route to Pharmacy Electronically, [facility]/pharmacy #[id number], 155, cm, 05/03/21 14:39:00 EST, Height, 95.9, kg, 12/05/20 10:08:00 EDT, Dry Weight Start Date: 05/03/21 Status: Ordered clonazePAM 0.5 mg oral tablet 1 tablet = 0.5 mg, By Mouth, Daily, may fill 05/02, # 14 tablet, 0 Refills, Maintenance, 05/01/21 3:37:00 EST, Tablet, [facility]/pharmacy #[id number], TEST MANAGER reviewed, covering for Dr. De Leon, 155, cm, 04/18/21 10:12:00 EST, Height, 95.9, kg, 12/05/20 10:08:00 EDT,... Start Date: 05/01/21 Stop Date: 05/15/21 Status: Ordered Dovonex 0.005% topical cream 1 applicator, Topically, 2 times a day, # 60 Gm, 5 Refills, Maintenance, 07/07/19 17:30:00 EDT, [facility], 1 applicator Topically 2 times a day,x30 days, 158, cm, 12/24/18 10:25:00 EDT, Height, 76, kg, 04/12/19 15:31:00 EST, Dry Weight Start Date: 07/07/19 Stop Date: 01/03/20 Status: Ordered fluticasone 50 mcg/inh nasal spray 1 sprays, Nares, Both, 2 times a day, in each nostril. for allergies, # 16 Gm, 0 Refills, Maintenance, 04/27/20 14:35:00 EST, [place], [facility], Partial fill upon patient request if theprescription is for a schedule II opioid drug., 1... Start Date: 04/27/20 Stop Date: 05/27/20 Status: Ordered furosemide 20 mg oral tablet 1, tablet, By Mouth, Daily, # 30 tablet, Refills 3, Tot. Refills 3, Maintenance, 04/18/21 12:11:00 EST, Route to Pharmacy Electronically, [facility]/pharmacy #[id number], 155, cm, 04/18/21 10:12:00 EST, Height, 95.9, kg, 12/05/20 10:08:00 EDT, Dry Weight Start Date: 04/18/21 Status: Ordered halobetasol 0.05% topical ointment See Instructions, APPLY A THIN FILM TO THE AFFECTED SKIN AND RUB IN GENTLY AND COMPLETELY TWICE A DAY, # 50 Gm, 1 Refills, [facility] STORE [id number], 30, APPLY A THIN FILM TO THE AFFECTED SKIN AND RUB IN GENTLY AND COMPLETELY TWICE A DAY, 155, cm, 12/05/20 10:0... Start Date: 03/15/21 Status: Ordered ketoconazole 2% topical shampoo See Instructions, APPLY 1 APPLICATOR TOPICALLY 3X PER WEEK, # 120 mL, 3 Refills, [facility]ORE [id number], 30, APPLY 1 APPLICATOR TOPICALLY 3X PER WEEK, 155, cm, 03/17/21 7:53:00 EST, Height, 95.9, kg, 12/05/20 10:08:00 EDT, Dry Weight Start Date: 03/21/21 Status: Ordered Methadone By Mouth, 0 Refills, Maintenance Start Date: 12/25/11 Status: Ordered mupirocin 2% topical cream 1 application, Topically, 3 times a day, # 30 Gm, 2 Refills, Maintenance, 03/08/21 10:26:00 EST, Cream, [facility]/pharmacy #[id number], Partial [...] tablet, 0 Refills, Maintenance, 05/01/21 3:37:00 EST, [facility]/pharmacy #[id number], Partial fill upon patient request if the prescription is for a schedule II opioid drug., 155, cm, 04/18/21 10:12:00 EST... Start Date: 05/01/21 Stop Date: 05/15/21 Status: Ordered selenium sulfide 2.5% topical lotion See Instructions, APPLY TOPICALLY TO AFFECTED AREA EVERY DAY FOR 7 DAYS, # 120 mL, 3 Refills, Soft Stop, 04/26/21 18:07:00 EST, [facility]/pharmacy #[id number], 7, APPLY TOPICALLY TO AFFECTED AREA EVERY DAY FOR 7DAYS, 155, cm, 04/18/21 10:12:00 EST, Height, 95.9,... Start Date: 04/26/21 Status: Ordered tiZANidine 2 mg oral tablet 1, tablet, By Mouth, 3 times a day, # 60 tablet, Refills 0, Route to Pharmacy Electronically, [facility]ORE [id number], 155, cm, 05/03/21 14:39:00 EST, Height, 95.9, [...]
--- OUTSIDE RECORDS SUMMARY | 2022-11-03 10:40 | XMS_ITS | Continuity of Care Document ---
Author Name Unknown Organization [facility] Address [address] [place] [address]- Care Team Providers Care Reiki Practitioner Name Role Phone Ilya De Leon MD Primary Care Physician Encounter [facility] [place] Date(s): 09/26/19 - 10/26/19 [facility]/[address] [address]- [facility] Allergies, Adverse Reactions, Alerts Substance Reaction [...] 1 Refills, Maintenance, 09/30/19 16:26:00 EDT, Cream, [facility], 1 application Topically 2 times a day,PRN:for dry skin, 158, cm, 08/27/19 13:02:00 EDT, Height, 76, kg... Start Date: 09/30/19 Status: Ordered Claritin 10 mg oral tablet 10 mg, 1, tablet, By Mouth, Daily, # 15 tablet, Refills 3, Tot. Refills 3, Maintenance, 11/06/18 8:33:38 EDT, Route to Pharmacy Electronically, [id number], [facility] Start Date: 11/06/18 Status: Ordered Dovonex 0.005% topical cream 1 applicator, Topically, 2 times a day, # 60 Gm, 5 Refills, Maintenance, 07/07/19 17:30:00 EDT, [facility], 1 applicator Topically 2 [...] 3 Refills, Maintenance, 06/04/19 14:52:00 EDT, Cream, [facility], 1 application Topically 2 [...] 0 Refills, Soft Stop, 10/18/19 13:38:00 EDT, [facility], 158, cm, ... Start Date: 10/18/19 Status: Ordered Medrol Dosepak 4 mg oral tablet per label intructions, By Mouth, Once, as on label, # 1 each, 0 Refills, Soft Stop, 08/11/19 20:08:00 EDT, [facility] 3, 158, cm, 12/24/18 10:25:00 EDT, [...] Refills, Soft Stop, 08/27/19 14:17:00 EDT, [facility], 1 applicator Topically 3x per week, 158, [...] 3 Refills, Soft Stop, 09/23/19 15:13:00 EDT, [facility], 7, APPLY TOPICALLY TO [...] 0 Refills, Maintenance, 04/06/19 20:19:00 EST, Tablet, [facility], 158, cm, 12/24/18 10:25:00 EDT, Height, 75.5, kg, 04/06/19 17:01:00 EST, Dry Weight Start Date: 04/06/19 Stop Date: 04/13/19 Status: Ordered Problem List Condition Effective Dates Status Health Status Inform ant Opioid type dependence, continuous(Confirmed) 1 Active 1Client had been seen by Jazz Francois at [facility]. Client has no-showed to last appt and today.She will be targetted for closing if she does not responde to correspondence that will be sent on 02/14/13 Social History Social History Type Response Smoking Status 10 or more cigarette s (1/2 pack or more)/day in last 30 days entered on: 01/24/18 Sex
--- OUTSIDE RECORDS SUMMARY | 2022-11-03 10:40 | XMS_ITS | Continuity of Care Document ---
Author Name Unknown Organization [facility] Address [address] [place] [id number]- Care Team Providers Care Blood Donor Recruiter Name Role Phone Ilya De Leon MD Primary Care Physician Encounter [facility] [place] Date(s): 03/07/22 - 03/07/[address] [address]- Discharge Disposition: A-D/C Walkout Attending Physician: Not on Staff, Attending MD Admitting Physician: Not on Staff, Admitting MD Referring Physician: Not on Staff, Referring [...] Maintenance, 06/29/21 15:10:00 EDT, ER Tablet, [id number], Partial fill upon patient request if the prescription is for a schedule II opioid drug., 155, cm, 05/30/21 15:34:... Start Date: 06/29/21 Status: Ordered capsaicin 0.025% topical cream See Instructions, APPLY TO AFFECTED AREA TWICE A DAY, # 60 Gm, 1 Refills, [facility] STORE [id number], 30, APPLY TO AFFECTED AREA TWICE A DAY, 155, cm, 05/30/21 15:34:00 EDT, Height, 95.9, kg, 12/05/20 10:08:00 EDT, Dry Weight Start Date: 05/31/21 Status: Ordered Cavilon Emollient topical cream 1 application, Topically, 2 times a day, PRN for dry skin, # 454 Gm, 1 Refills, Maintenance, 09/30/19 16:26:00 EDT, Cream, [facility], 1 application Topically 2 times a day,PRN:for dry skin, 158, cm, 08/27/19 13:02:00 EDT, Height, 76, kg... Start Date: 09/30/19 Status: Ordered clonazePAM 0.5 mg oral tablet 1 tablet = 0.5 mg, By Mouth, Daily at bedtime, May fill 03/03/22 and weekly on Fridays for3 weeks, # 7 tablet, 2 Refills, Maintenance, 03/01/22 11:51:00 EST, Tablet, [facility], LABOR RELATIONS ANALYST reviewed, covering for Dr. De Leon, 155, cm, 01/10... Start Date: 03/01/22 Stop Date: 03/22/22 Status: Ordered coal tar topical 1% lotion See Instructions, applyTopically Daily at bedtime, # 120 mL, 3 Refills, Maintenance, 10/26/21 15:45:00 EDT, [facility], Partial fill upon patient request if the prescription is for a schedule II opioid drug., applyTopically Daily a... Start Date: 10/26/21 Status: Ordered Dovonex 0.005% topical cream 1 applicator, Topically, 2 times a day, # 60 Gm, 5 Refills, Maintenance, 07/07/19 17:30:00 EDT, [facility], 1 applicator Topically 2 times a day,x30 days, 158, cm, 12/24/18 10:25:00 EDT, Height, 76, kg, 04/12/19 15:31:00 EST, Dry Weight Start Date: 07/07/19 Stop Date: 01/03/20 Status: Ordered Eucerin Unscented topical lotion See Instructions, apply as frequently as needed, # 1 each, 0 Refills, Maintenance, 09/28/21 12:23:00 EDT, [facility], Partial fill upon patient request if the prescription is for a schedule II opioid drug., apply as frequently as n... Start Date: 09/28/21 Status: Ordered fluticasone 50 mcg/inh nasal spray 1 sprays, Nares, Both, 2 times a day, in each nostril. for allergies, # 16 Gm, 0 Refills, Maintenance, 04/27/20 14:35:00 EST, [place], [facility] 3, Partial fill upon patient request if theprescription is for a schedule II opioid drug., 1... Start Date: 04/27/20 Stop Date: 05/27/20 Status: Ordered halobetasol 0.05% topical ointment See Instructions, APPLY A THIN FILM TO THE AFFECTED SKIN AND RUB IN GENTLY AND COMPLETELY TWICE A DAY, # 50 Gm, 1 Refills, Maintenance, 10/26/21 15:44:00 EDT, [facility], 30, APPLY A THIN FILM TO THE AFFECTED SKIN AND RUB IN GENTLY... Start Date: 10/26/21 Status: Ordered ketoconazole 2% topical shampoo See Instructions, APPLY 1 APPLICATOR TOPICALLY 3X PER WEEK, # 120 mL, 3 Refills, Maintenance, 12/27/21 19:30:00 EDT, [facility] STORE [id number], 30, APPLY 1 APPLICATOR TOPICALLY 3X PER WEEK, 155, cm, 12/12/21 16:00:00 EDT, Height, 106.5, kg, 09/14/21 9:38:00 EDT... Start Date: 12/27/21 Status: Ordered loratadine 10 mg oral tablet 1, tablet, By Mouth, Daily, # 90 tablet, Refills 1, Tot. Refills 1, Maintenance, 11/01/21 15:19:00 EDT, Route to Pharmacy Electronically, [facility]/pharmacy #[id number], 155, cm, 09/28/21 12:06:00 EDT, Height, 106.5, kg, 09/14/21 9:38:00 EDT, Dry Weight Start Date: 11/01/21 Status: Ordered Methadone By Mouth, 0 Refills, Maintenance Start Date: 12/25/11 Status: Ordered mupirocin 2% topical cream 1 application, Topically, 3 times a day, # 30 Gm, 2 Refills, Maintenance, 03/08/21 10:26:00 EST, Cream, [facility]/pharmacy #[id number], Partial fill upon patient request if the prescription is for a schedule II opioid drug., 1 application Topically 3 times a day,... Start Date: 03/08/21 Status: Ordered permethrin 5% topical cream 1 application, Topically, Once, to skin head to feet, remove by washing after 8 to 14 hours, # 60 Gm, 0 Refills, Soft Stop, 07/27/20 11:50:00 EDT, Cream, [facility], 1 applicationTopically Once,Instr:to skin head to feet, remove b... Start Date: 07/27/20 Status: Ordered predniSONE 10 mg oral tablet See Instructions, May fill 03/03/22 and weekly on Fridays for 3 weeks, # 14 tablet, 2 Refills, 03/01/22 11:51:00 EST, [facility], 155, cm, 01/23/22 14:00:00 EST, Height, 106.5, kg, 09/14/21 9:38:00 EDT, Dry Weight Start Date: 03/01/22 Status: Ordered selenium sulfide 2.5% topical lotion See Instructions, APPLY TOPICALLY TO AFFECTED AREA EVERY DAY FOR 7 DAYS, # 120 mL, 3 Refills, Soft Stop, 10/26/21 15:43:00 EDT, [facility], 7, APPLY TOPICALLY TO AFFECTED AREA EVERY DAY FOR 7 DAYS, 155, cm, 09/28/21 12:06:00 EDT, H... Start Date: 10/26/21 Status: Ordered tiZANidine 2 mg oral tablet 1, tablet, By Mouth, 3 times a day, # 60 tablet, Refills 0, Route to Pharmacy Electronically, [facility] STORE [id number], 155, cm, 05/03/21 14:39:00 EST, Height, 95.9, kg, 12/05/20 10:08:00 EDT, Dry Weight Start Date: 05/09/21 Status: Ordered traMADol 50 mg oral tablet 1 tablet = 50 mg, By Mouth, Every 8 hours, PRN Pain , Severe, for 7 days, May fill 03/03/22 and weekly on Fridays for 3 weeks, # 21 tablet, 2 Refills, Acute 03/22/22 11:51:00 EST, 03/01/22 11:51:00 EST, Tablet, [facility], Partial... Start Date: 03/01/22 Stop Date: 03/22/22 Status: Ordered Problem List Condition Confirmation Course Effective Dates Status H ealth Status Informant Anxiety Confirmed Active Opioid type dependence, continuous 1 Confirmed Active Osteoarthritis of left knee Confirmed Active Psoriasis Confirmed Active Severe obesity Confirmed Active 1Client had been seen by Jazz Francois at [facility]. Client has no-showed to last appt and today.She will be targetted for closing if she does not responde to correspondence that will be sent on 02/14/13 Results Radiology Reports * Exam Date Time Procedure Performing Provider Status 03/07/22 11:11 AM Chest 2 Views Fronta l and Lat Lina Stern; Auth (Verified) Notes: (Chest 2 Views Frontal and Lat) Reason For Exam: Shortness of Breath RESULT: Chest 2 Views Frontal and Lat Chest 2 Views Frontal and Lat Hx of Present Illness: fell last night, tripped over puppy and has some right rib back pain, no resp distress noted; Reason: Shortness of Breath; Clinical Question(s): Pneumonia COMPARISON: Multiple priors most recently 07/01/2020. FINDINGS: LINES AND TUBES: None. LUNGS AND PLEURA: Small amount of chronic atelectasis/scarring in the left lower-mid lung, unchanged. Normal pulmonary vascularity. No pleural effusion. No pneumothorax. HEART, MEDIASTINUM AND CECILIA: Heart is normal in size. Normal mediastinal and hilar contour. BONES AND SOFT TISSUES: No acute abnormality. IMPRESSION: No acute abnormality. I have personally reviewed the images and I agree with this report. WSN: [id number] Ordering Physician: Kale Lozano MD Dictated By: Jorge Lugo DO Dictated Date/Time: 03/07/22 11:27 a Reviewed By: Kale Willingham MD Signed By: Kale Willingham MD Signed Date/Time: 03/07/22 11:32 am Transcribed By: MIRNA Transcribed Date/Time: 03/07/22 11:15 am Vital Signs Most recent to oldest [Reference Range]: 1 2 3 Oxygen Saturation [94-100 %] 97 % (03/07/22 2:18 PM) 100 % (03/07/22 12:15 PM) 100 % (03/07/22 12:14 PM) Pulse Rate [55-90 bpm] 88 bpm (03/07/22 2:18 PM) 93 bpm *H* (03/07/22 12:15 PM) 81 bpm (03/07/22 12:14 PM) Blood Pressure [90-138/55-84 mm Hg] 130/74mm Hg (03/07/22 2:18 PM) 145/87mm Hg *H* (03/07/22 12:15 PM) 151/86mm Hg *H* (03/07/22 12:14 PM) Respiratory Rate [16-30 br/min] 18 br/min (03/07/22 12:15 PM) 18 br/min (03/07/22 12:14 PM) 18 br/min (03/07/22 10:55 AM) Temperature [96.8-100.4 DegF] 98.4 DegF (03/07/22 2:18 PM) 98.7 DegF (03/07/22 12:15 PM) 98.0 DegF (03/07/22 12:14 PM) Mode of Delivery (Oxygen) Room air (03/07/22 2:18 PM) Room air (03/07/22 12:15 PM) Room air (03/07/22 12:14 PM) Blood pressure sites Arm, right (03/07/22 2:18 PM) Arm, right (03/07/22 12:15 PM) Arm, right (03/07/22 12:14 PM) Temperature Route Oral (03/07/22 2:18 PM) Oral (03/07/22 12:15 PM) Oral (03/07/22 12:14 PM) Social History Social History Type Response Smoking Status 10 or more cigarette s (1/2 pack or more)/day in last 30 days entered on: 2/7/22 Sex Note * [facility] , CIS S: TRANSCRIBE Kale Willingham MD: VERIFY Jorge Lugo DO: SIGN Event Display: Result: Authored Date: Chest 2 Views Frontal and Lat Hx of Present Illness: fell last night, tripped over puppy and has some right rib back pain, no resp distress noted; Reason: Shortness of Breath; Clinical Question(s): Pneumonia COMPARISON: Multiple priors most recently 07/01/2020. FINDINGS: LINES AND TUBES: None. LUNGS AND PLEURA: Small amount of chronic atelectasis/scarring in the left lower-mid lung, unchanged. Normal pulmonary vascularity. No pleural effusion. No pneumothorax. HEART, MEDIASTINUM AND CECILIA: Heart is normal in size. Normal mediastinal and hilar contour. BONES AND SOFT TISSUES: No acute abnormality. IMPRESSION: No acute abnormality. I have personally reviewed the images and I agree with this report. WSN: [id number] Ordering Physician: Kale Lozano MD Dictated By: Jorge Lugo DO Dictated Date/Time: 03/07/22 11:27 a Reviewed By: Kale Willingham MD Signed By: Kale Willingham MD Signed Date/Time: 03/07/22 11:32 am Transcribed By: MIRNA Transcribed Date/Time: 03/07/22 11:15 am Patient Care team information Care Team Personnel Name: Ilya De Leon MD Position: [facility] Primary Care Physician Member Role: PCP Address: Address: [address] [place] [address]- Care Team Related Persons Name: JD ALVAREZ Address: home [address] [place] [id number]
--- OUTSIDE RECORDS SUMMARY | 2022-11-03 10:40 | XMS_ITS | Continuity of Care Document ---
Author Name Unknown Organization [facility] Address Unknown Care Team Providers Care Division Supervisor Name Role Phone Ilya De Leon MD Primary Care Physician Encounter [facility] Date(s): 04/01/21 - 05/01/21 [facility] Allergies, Adverse Reactions, Alerts Substance [...] MULTIDOSE ADMINISTERED AT [facility] Medications capsaicin 0.025% topical cream See Instructions, APPLY TO AFFECTED AREA TWICE A DAY, # 60 Gm, 1 Refills, [facility] ST[facility] [id number], 30, APPLY TO AFFECTED AREA TWICE A DAY, 155, cm, 04/08/21 11:33:00 EST, Height, 95.9, kg, 12/05/20 10:08:00 EDT, Dry Weight Start Date: 04/17/21 Status: Ordered Cavilon Emollient topical cream 1 application, Topically, 2 times a day, PRN for dry skin, # 454 Gm, 1 Refills, Maintenance, 09/30/19 16:26:00 EDT, Cream, [facility] 3, 1 application Topically 2 times a day,PRN:for dry skin, 158, cm, 08/27/19 13:02:00 EDT, Height, 76, kg... Start Date: 09/30/19 Status: Ordered cetirizine 10 mg oral tablet 1 tablet = 10 mg, By Mouth, Daily, # 30 tablet, 0 Refills, Maintenance, 12/03/20 13:44:00 EDT, Tablet, [facility]/pharmacy #[id number], Partial fill upon patient request if the prescription is for a schedule II opioid drug., 158, cm, 12/03/20 13:27:00 EDT, Height,... Start Date: 12/03/20 Status: Ordered Claritin 10 mg oral tablet 10 mg, 1, tablet, By Mouth, Daily, # 15 tablet, Refills 3, Tot. Refills 3, Maintenance, 11/06/18 8:33:38 EDT, Route to Pharmacy Electronically, [id number], [facility] Start Date: 11/06/18 Status: Ordered clindamycin 1% topical gel 1 application, Topically, 2 times a day, # 30 Gm, 0 Refills, Maintenance, 04/08/21 12:14:00 EST, Gel, [facility], Partial fill upon patient request if the prescription is for a schedule II opioid drug., 1 application Topically 2 ti... Start Date: 04/08/21 Status: Ordered clindamycin 150 mg oral capsule See Instructions, 3 capsultes 3 times a day, # 45 capsule, 0 Refills, Acute 01/20/22 14:53:00 EST, 03/17/21 14:50:00 EST, Capsule, [facility], Partial fill upon patient request ifthe prescription is for a schedule II opioid drug.,... Start Date: 03/17/21 Stop Date: 01/20/22 Status: Ordered clonazePAM 0.5 mg oral tablet 1 tablet = 0.5 mg, By Mouth, Daily, METAL TRIM ERECTOR checked, # 14 tablet, 0 Refills, Maintenance, 04/18/21 12:09:00 EST, Tablet, [facility]/pharmacy #[id number], Partial fill upon patient request if the prescription is for aschedule II opioid drug., 155, cm, 04/18/21 10:12:0... Start Date: 04/18/21 Stop Date: 05/02/21 Status: Ordered clonazePAM 0.5 mg oral tablet 1 tablet = 0.5 mg, By Mouth, Daily, may fill 05/02, # 14 tablet, 0 Refills, Maintenance, 05/01/21 3:37:00 EST, Tablet, [facility]/pharmacy #[id number], METAL TRIM ERECTOR reviewed, covering for Dr. De Leon, 155, [...] Gm, 5 Refills, Maintenance, 07/07/19 17:30:00 EDT, [facility] 3, 1 applicator Topically [...] Gm, 0 Refills, Maintenance, 04/27/20 14:35:00 EST, [place], [facility], Partial fill upon patient request if theprescription is for a schedule II opioid drug., 1... Start Date: 04/27/20 Stop Date: 05/27/20 Status: Ordered furosemide 20 mg oral tablet 1, tablet, By Mouth, Daily, # 30 tablet, Refills 3, Tot. Refills 3, Maintenance, 04/18/21 12:11:00 EST, Route to Pharmacy Electronically, [facility]/pharmacy #[id number], 155, cm, 04/18/21 [...] A DAY, # 50 Gm, 1 Refills, [facility] STORE [id number], 30, APPLY A THIN FILM TO THE AFFECTED SKIN AND RUB IN GENTLY AND COMPLETELY TWICE A DAY, 155, cm, 12/05/20 10:0... Start Date: 03/15/21 Status: Ordered hydrocortisone 1% topical cream 1 application, Topically, 2 times a day, Apply to rash areas, # 60 Gm, 3 Refills, Maintenance, 06/04/19 14:52:00 EDT, Cream, [facility], 1 application Topically 2 times a day,Instr:Apply to rash areas, 158, cm, 12/24/18 10:25:00 EDT, Hei... Start Date: 06/04/19 Status: Ordered ketoconazole 2% topical shampoo See Instructions, APPLY 1 APPLICATOR TOPICALLY 3X PER WEEK, # 120 mL, 3 Refills, [facility] [id number], 30, APPLY 1 APPLICATOR TOPICALLY 3X PER [...] 03/08/21 10:26:00 EST, Cream, [facility]/pharmacy #[id number], Partial fill upon patient request if the prescription is for a schedule II opioid drug., 1 application Topically 3 times a day,... Start Date: 03/08/21 Status: Ordered [place] 0.65% nasal spray 2 sprays, Nares, Both, 4 times a day, # 1 each, 0 Refills, Maintenance, 12/03/20 13:46:00 EDT, [facility]/pharmacy #[id number], Partial fill upon [...] tablet, 0 Refills, Maintenance, 05/01/21 3:37:00 EST, [facility]/pharmacy #[id number], Partial fill upon patient request if the prescription is for a schedule II opioid drug., 155, cm, 02/07/22 10:12:00 EST... Start Date: 05/01/21 Stop Date: 05/15/21 Status: Ordered selenium sulfide 2.5% topical lotion See Instructions, APPLY TOPICALLY TO AFFECTED AREA EVERY DAY FOR 7 DAYS, # 120 mL, 3 Refills, Soft Stop, 04/26/21 18:07:00 EST, [facility]/pharmacy #[id number], 7, APPLY TOPICALLY [...] 1 Refills, Maintenance, 03/10/20 18:21:00 EST, Cream, [facility] 3, Partial [...] 04/08/21 12:19:00 EST, Route to Pharmacy Electronically, [facility], Partial fill upon patient request if t... Start Date: 04/08/21 Stop Date: 05/08/21 Status: Ordered Valium 5 mg oral tablet 5 mg, 1, tablet, By Mouth, Daily at bedtime, PRN, # 3 tablet, Refills 0, Tot. Refills 0, Maintenance, Spasm, 04/03/21 11:16:00 EST, Route to Pharmacy Electronically, [facility], Partialfill upon patient request [...]
--- OUTSIDE RECORDS SUMMARY | 2022-11-03 10:40 | XMS_ITS | Continuity of Care Document ---
Author Name Unknown Organization [facility] Address [address] [place] [address]- Care Team Providers Care Training And Development Manager Name Role Phone Ilya De Leon MD Primary Care Physician Encounter [facility] [place] Date(s): 09/25/19 - 10/25/19 [facility]/[address] [address]- [facility] Allergies, Adverse Reactions, Alerts Substance Reaction Severity [...] FLUVIRIN MULTIDOSE ADMINISTERED AT [facility] Medications Cavilon Emollient topical cream 1 application, Topically, 2 times a day, PRN for dry skin, # 454 Gm, 1 Refills, Maintenance, 09/30/19 16:26:00 EDT, Cream, [facility], 1 application Topically 2 times a day,PRN:for dry skin, 158, cm, 08/27/19 13:02:00 EDT, Height, 76, kg... Start Date: 09/30/19 Status: Ordered Claritin 10 mg oral tablet 10 mg, 1, tablet, By Mouth, Daily, # 15 tablet, Refills 3, Tot. Refills 3, Maintenance, 11/06/18 8:33:38 EDT, Route to Pharmacy Electronically, [id number], [facility] Start Date: 11/06/18 Status: Ordered Dovonex 0.005% topical cream 1 applicator, Topically, 2 times a day, # 60 Gm, 5 Refills, Maintenance, 07/07/19 17:30:00 EDT, [facility], 1 applicator Topically [...] Refills, Maintenance, 06/04/19 14:52:00 EDT, Cream, [facility], 1 application Topically [...] 0 Refills, Soft Stop, 10/18/19 13:38:00 EDT, [facility], 158, cm, ... Start Date: 10/18/19 Status: Ordered Medrol Dosepak 4 mg oral tablet per label intructions, By Mouth, Once, as on label, # 1 each, 0 Refills, Soft Stop, 08/11/19 20:08:00 EDT, [facility] 3, 158, cm, 12/24/18 10:25:00 EDT, [...] 0 Refills, Soft Stop, 08/27/19 14:17:00 EDT, [facility], 1 applicator Topically 3x per week, [...] 3 Refills, Soft Stop, 09/23/19 15:13:00 EDT, [facility], 7, APPLY TOPICALLY [...] 0 Refills, Maintenance, 04/06/19 20:19:00 EST, Tablet, [facility], 158, cm, 12/24/18 [...]
--- OUTSIDE RECORDS SUMMARY | 2022-11-03 10:40 | XMS_ITS | Continuity of Care Document ---
Author Name Unknown Organization [facility] Address Unknown Care Team Providers Care Synthetic Gem Press Operator Name Role Phone Ilya De Leon MD Primary Care Physician Encounter [facility] [place] Date(s): 08/20/20 - 11/03/20 [facility] Attending Physician: Ilya De Leon MD [...] 11:44:00 EDT, 09/24/20 11:43:00 EDT, Tablet, [id number], Partial fill u... Start Date: 09/24/20 Stop [...] 11/06/18 8:33:38 EDT, Route to Pharmacy Electronically, [id number], [facility] Start Date: 11/06/18 Status: Ordered clonazePAM 0.5 [...] 0 Refills, Maintenance, 10/17/20 9:00:00 EDT, Tablet, [facility] 3, Partial fill upon patient [...] Gm, 0 Refills, Maintenance, 04/27/20 14:35:00 EST, [place], [facility], Partial fill upon patient request if theprescription is for a schedule II opioid drug., 1... Start Date: 04/27/20 Stop Date: 05/27/20 Status: Ordered furosemide 20 mg oral tablet 1, tablet, By Mouth, Daily, # 30 tablet, Refills 3, Tot. Refills 0, Maintenance, 10/21/20 11:22:00 EDT, Route to Pharmacy Electronically, [id number], 158, cm, 10/18/20 10:46:00 EDT, Height, 95.4, kg, 10/16/20 10:11:00 EDT, Dry Weight Start Date: 10/21/20 Status: Ordered hydrocortisone 1% topical cream 1 application, Topically, 2 times a day, Apply to rash areas, # 60 Gm, 3 Refills, Maintenance, 06/04/19 14:52:00 EDT, Cream, [facility], 1 application Topically 2 [...] 12/26/20 11:39:00 EDT, 09/24/20 11:38:00 EDT, Ointment, [facility]/pharmacy #[id number], Partial fill upon [...] 0 Refills, Maintenance, 10/29/20 12:47:00 EDT, Tablet, [facility]/pharmacy #[id number], Partial fill upon [...] 1 Refills, Maintenance, 03/10/20 18:21:00 EST, Cream, [facility], Partial fill upon patient [...] 0 Refills, Maintenance, 09/24/20 11:47:00 EDT, Gel, [facility]acy #[id number], 1 application Topically [...]
--- OUTSIDE RECORDS SUMMARY | 2022-11-03 10:40 | XMS_ITS | Continuity of Care Document ---
Author Name Unknown Organization [facility] Address Unknown Care Team Providers Care Body Former Name Role Phone Ilya De Leon MD Primary Care Physician Encounter [facility] [place] Date(s): 08/31/21 - 10/05/21 [facility] Attending Physician: Justice Paez MD Admitting Physician: [...] ADMINISTERED AT [facility] Medications acetaminophen 650 mg oral tablet, extended release 2 tablet = 1,300 mg, By Mouth, Every 8 hours, # 100 tablet, 1 Refills, Maintenance, 06/29/21 15:10:00 EDT, ER Tablet, [id number], Partial fill upon patient request if the prescription is for a schedule II opioid drug., 155, cm, 05/30/21 15:34:... Start Date: 06/29/21 Status: Ordered capsaicin 0.025% topical cream See Instructions, APPLY TO AFFECTED AREA TWICE A DAY, # 60 Gm, 1 Refills, [id number], 30, APPLY TO AFFECTED AREA TWICE A DAY, 155, cm, 05/30/21 15:34:00 EDT, Height, 95.9, kg, 12/05/20 10:08:00 EDT, Dry Weight Start Date: 05/31/21 Status: Ordered Cavilon Emollient topical cream 1 application, Topically, 2 times a day, PRN for dry skin, # 454 Gm, 1 Refills, Maintenance, 09/30/19 16:26:00 EDT, Cream, [facility] 3, 1 application Topically 2 times a day,PRN:for dry skin, 158, cm, 08/27/19 13:02:00 EDT, Height, 76, kg... Start Date: 09/30/19 Status: Ordered clonazePAM 0.5 mg oral tablet 1 tablet = 0.5 mg, By Mouth, Daily at bedtime, July09/30/21, # 7 tablet, 0 Refills, Maintenance, 09/28/21 13:15:00 EDT, Tablet, [facility], GRINDER OPERATOR EXTERNAL TOOL reviewed, covering for Dr. De Leon, 155, cm, 09/28/21 12:06:00 EDT, Height, 106.5,... Start Date: 09/28/21 Stop Date: 10/05/21 Status: Ordered clonazePAM 0.5 mg oral tablet 1 tablet = 0.5 mg, By Mouth, Daily at bedtime, July09/22/21, # 7 tablet, 0 Refills, Maintenance, 09/21/21 7:19:00 EDT, Tablet, [facility], GRINDER OPERATOR EXTERNAL TOOL reviewed, covering for Dr. De Leon, 155, cm, 09/15/21 10:14:00 EDT, Height, 106.5,... Start Date: 09/21/21 Stop Date: 09/28/21 Status: Ordered coal tar topical 2% foam 1 application, Topically, 4 times a day, # 100 Gm, 1 Refills, Maintenance, 09/28/21 12:24:00 EDT, Foam, [facility], Partial fill upon patient request if the prescription is for a schedule II opioid drug., 1 application Topically 4... Start Date: 09/28/21 Status: Ordered Dovonex 0.005% topical cream 1 applicator, Topically, 2 times a day, # 60 Gm, 5 Refills, Maintenance, 07/07/19 17:30:00 EDT, [facility] 3, 1 applicator Topically 2 times a day,x30 days, 158, cm, 12/24/18 10:25:00 EDT, Height, 76, kg, 04/12/19 15:31:00 EST, Dry Weight Start Date: 07/07/19 Stop Date: 01/03/20 Status: Ordered Eucerin Unscented topical lotion See Instructions, apply as frequently as needed, # 1 each, 0 Refills, Maintenance, 09/28/21 12:23:00 EDT, [facility], Partial fill upon patient request if the prescription is for a schedule II opioid drug., apply as frequently as n... Start Date: 09/28/21 Status: Ordered fluticasone 50 mcg/inh nasal spray 1 sprays, Nares, Both, 2 times a day, in each nostril. for allergies, # 16 Gm, 0 Refills, Maintenance, 04/27/20 14:35:00 EST, [place], [facility] 3, Partial fill upon patient request if theprescription is for a schedule II opioid drug., 1... Start Date: 04/27/20 Stop Date: 05/27/20 Status: Ordered halobetasol 0.05% topical ointment See Instructions, APPLY A THIN FILM TO THE AFFECTED SKIN AND RUB IN GENTLY AND COMPLETELY TWICE A DAY, # 50 Gm, 1 Refills, [facility] [id number], 30, APPLY A THIN FILM TO THE AFFECTED SKIN AND RUB IN GENTLY AND COMPLETELY TWICE A DAY, 155, cm, 12/05/20 10:0... Start Date: 03/15/21 Status: Ordered hydrocortisone 1% topical cream 1 application, Topically, 2 times a day, # 30 Gm, 0 Refills, Maintenance, 06/17/21 11:42:00 EDT, Cream, [facility] 3, Partial fill upon patient request if the prescription is for a schedule II opioid drug., 1 application Topically 2 times... Start Date: 06/17/21 Status: Ordered hydrOXYzine hydrochloride 25 mg oral tablet 1 capsule, By Mouth, 3 times a day, PRN for itching, for 30 days, # 90 capsule, 1 Refills, Acute 10/23/21 14:41:00 EDT, 08/24/21 14:41:00 EDT, Capsule, [facility], Partial fill upon patient request if the prescription is for a sche... Start Date: 08/24/21 Stop Date: 10/23/21 Status: Ordered ketoconazole 2% topical shampoo See Instructions, APPLY 1 APPLICATOR TOPICALLY 3X PER WEEK, # 120 mL, 3 Refills, [id number], 30, APPLY 1 APPLICATOR TOPICALLY 3X PER WEEK, 155, cm, 05/30/21 15:34:00 EDT, Height, 95.9, kg, 12/05/20 10:08:00 EDT, Dry Weight Start Date: 08/02/21 Status: Ordered loratadine 10 mg oral tablet 1, tablet, By Mouth, Daily, # 15 tablet, Refills 5, Tot. Refills 5, Maintenance, 08/19/21 9:15:00 EDT, [id number], cm, 05/30/21 15:34:00 EDT, Height, 95.9, kg, 12/05/20 10:08:00 EDT, Dry Weight Start Date: 08/19/21 Status: Ordered Methadone By Mouth, 0 Refills, Maintenance Start Date: 12/25/11 Status: Ordered mupirocin 2% topical cream 1 application, Topically, 3 times a day, # 30 Gm, 2 Refills, Maintenance, 03/08/21 10:26:00 EST, Cream, [facility]acy #[id number], Partial fill upon patient request if the prescription is for a schedule II opioid drug., 1 application Topically 3 times a day,... Start Date: 03/08/21 Status: Ordered permethrin 5% topical cream 1 application, Topically, Once, to skin head to feet, remove by washing after 8 to 14 hours, # 60 Gm, 0 Refills, Soft Stop, 07/27/20 11:50:00 EDT, Cream, [facility], 1 applicationTopically Once,Instr:to skin head to feet, remove b... Start Date: 07/27/20 Status: Ordered predniSONE 10 mg oral tablet See Instructions, MADDY 1 TABLETA POR [facility] CADA ANDREW POR 7 RAY, # 7 tablet, 0 Refills, [facility], 155, cm, 08/24/21 14:47:00 EDT, Height, 95.9, kg, 12/05/20 10:08:00 EDT, Dry Weight Start Date: 09/08/21 Status: Ordered predniSONE 10 mg oral tablet See Instructions, 1 tablet BID for 7 days (increased dose) for 09/30, # 14 tablet, 0 Refills, 09/28/21 13:15:00 EDT, [facility], 155, cm, 09/28/21 12:06:00 EDT, Height, 106.5, kg, 09/14/21 9:38:00 EDT, Dry Weight Start Date: 09/28/21 Status: Ordered selenium sulfide 2.5% topical lotion See Instructions, APPLY TOPICALLY TO AFFECTED AREA EVERY DAY FOR 7 DAYS, # 120 mL, 3 Refills, Soft Stop, 09/28/21 12:25:00 EDT, [facility], 7, APPLY TOPICALLY TO AFFECTED AREA EVERY DAY FOR 7 DAYS, 155, cm, 09/28/21 12:06:00 EDT, H... Start Date: 09/28/21 Status: Ordered tiZANidine 2 mg oral tablet 1, tablet, By Mouth, 3 times a day, # 60 tablet, Refills 0, Route to Pharmacy Electronically, [id number], 155, cm, 05/03/21 14:39:00 EST, Height, 95.9, kg, 12/05/20 10:08:00 EDT, Dry Weight Start Date: 05/09/21 Status: Ordered Problem List Condition Effective Dates Status Health Status Inform ant Anxiety(Confirmed) Active Opioid type dependence, continuous(Confirmed) 1 Active Osteoarthritis of left knee(Confirmed) Active Psoriasis(Confirmed) Active Severe obesity(Confirmed) Active 1Client had been seen by Jazz Francois at [facility]. Client has no-showed to last appt and today.She will be targetted for closing if she does not responde to correspondence that will be sent on 02/14/13 Social History Social History Type Response Smoking Status 10 or more cigarette s (1/2 pack or more)/day in last 30 days entered on: 04/18/21 Sex
--- OUTSIDE RECORDS SUMMARY | 2022-11-03 10:40 | XMS_ITS | Continuity of Care Document ---
Author Name Unknown Organization [facility] Address [address] [place] [address]- Care Team Providers Care Cake Wrapper Name Role Phone Ilya De Leon MD Primary Care Physician Encounter [facility] [place] Date(s): 09/22/20 - 10/22/20 [facility]/[address] [address]- Allergies, Adverse Reactions, Alerts Substance Reaction Severity [...] [facility] Medications acetaminophen 500 mg oral tablet 2 tablet = 1,000 mg, By Mouth, 3 times a day, PRN as needed for fever, not to exceed 3000 mg/day take scheduled three times a day, # 100 tablet, 1 Refills, Acute 12/26/20 11:44:00 EDT, 09/24/20 11:43:00 EDT, Tablet, [id number], Partial fill u... Start Date: 09/24/20 Stop Date: 12/26/20 Status: Ordered Cavilon Emollient topical cream 1 application, Topically, 2 times a day, PRN for dry skin, # 454 Gm, 1 Refills, Maintenance, 09/30/19 16:26:00 EDT, Cream, [facility] 3, 1 application Topically 2 times a day,PRN:for dry skin, 158, cm, 08/27/19 13:02:00 EDT, Height, 76, kg... Start Date: 09/30/19 Status: Ordered cetirizine 10 mg oral tablet 1 tablet = 10 mg, By Mouth, Daily, for allergies. Do NOT take with claritin, # 30 tablet, 0 Refills, Maintenance, 07/23/20 11:37:00 EDT, Tablet, [facility], Partial fill upon patient request if the prescription is for a schedule II... Start Date: 07/23/20 Stop Date: 08/22/20 Status: Ordered Claritin 10 mg oral tablet 10 mg, 1, tablet, By Mouth, Daily, # 15 tablet, Refills 3, Tot. Refills 3, Maintenance, 11/06/18 8:33:38 EDT, Route to Pharmacy Electronically, [id number], [facility] Start Date: 11/06/18 Status: Ordered clonazePAM 0.5 mg oral tablet 1 tablet = 0.5 mg, By Mouth, Daily, # 28 tablet, 0 Refills, Maintenance, 10/18/20 11:03:00 EDT, Tablet, [facility], Partial fill upon patient request if the prescription is for a schedule II opioid drug., 158, cm, 10/18/20 10:46:00... Start Date: 10/18/20 Status: Ordered clonazePAM 0.5 mg oral tablet 1 tablet = 0.5 mg, By Mouth, Daily, # 1 tablet, 0 Refills, Maintenance, 10/17/20 9:00:00 EDT, Tablet, [facility] 3, Partial fill upon [...] Refills, Maintenance, 07/16/20 15:11:00 EDT, Tablet, [facility], Partial fill upon patient request if the prescription is f... Start Date: 07/16/20 Status: Ordered Dovonex 0.005% topical cream 1 applicator, Topically, 2 times a day, # 60 Gm, 5 Refills, Maintenance, 07/07/19 17:30:00 EDT, [facility] 3, 1 applicator Topically 2 times [...] Gm, 0 Refills, Maintenance, 04/27/20 14:35:00 EST, [place], [facility] 3, Partial fill upon patient request if theprescription is for a schedule II opioid drug., 1... Start Date: 04/27/20 Stop Date: 05/27/20 Status: Ordered furosemide 20 mg oral tablet 1, tablet, By Mouth, Daily, # 30 tablet, Refills 3, Tot. Refills 0, Maintenance, 10/21/20 11:22:00 EDT, Route to Pharmacy Electronically, [id number], 158, cm, 10/18/20 10:46:00 EDT, Height, 95.4, kg, 10/16/20 10:11:00 EDT, Dry Weight Start Date: 10/21/20 Status: Ordered hydrocortisone 1% topical cream 1 application, Topically, 2 times a day, Apply to rash areas, # 60 Gm, 3 Refills, Maintenance, 06/04/19 14:52:00 EDT, Cream, [facility], 1 application Topically [...] Soft Stop, 07/27/20 11:50:00 EDT, Cream, [facility], 1 applicationTopically Once,Instr:to skin head to feet, remove b... Start Date: 07/27/20 Status: Ordered predniSONE 5 mg oral tablet 1 tablet = 5 mg, By Mouth, 3 times a day, # 42 tablet, 0 Refills, Maintenance, 10/18/20 11:06:00 EDT, Tablet, [facility], Partial fill upon patient request if the prescription is for a schedule II opioid drug., 158, cm, 10/18/20 10... Start Date: 10/18/20 Stop Date: 11/01/20 Status: Ordered selenium sulfide 2.5% topical lotion See Instructions, APPLY TOPICALLY TO AFFECTED AREA EVERY DAY FOR 7 DAYS, # 120 mL, 3 Refills, Soft Stop, 07/23/20 11:40:00 EDT, [facility], 7, APPLY TOPICALLY TO AFFECTED AREA EVERY DAY FOR 7 DAYS, 158, cm, 07/23/20 11:13:00 EDT, H... Start Date: 07/23/20 Status: Ordered Shingrix intramuscular injection = 0.5 mL, Intramuscular, Once, repeat dose in 2 to 6 months, # 2 each, 0 Refills, Soft Stop, 05/27/20 11:03:00 EDT, Powder, [facility], Partial fill upon patient request [...] 1 Refills, Maintenance, 03/10/20 18:21:00 EST, Cream, [facility], Partial fill upon [...] seen by Jazz Francois at [facility]. Client has no-showed to last appt and today.She will be targetted for closing if she does not responde to correspondence that will be sent on 02/14/13 Social History Social History Type Response Smoking Status 5-9 cigarettes (betw een 1/4 to 1/2 pack)/day in last 30 days entered on: 09/08/20 Sex
--- OUTSIDE RECORDS SUMMARY | 2022-11-03 10:40 | XMS_ITS | Continuity of Care Document ---
Author Name Unknown Organization [facility] Address Unknown Care Team Providers Care Seam Taper Machine Name Role Phone Haley NEWMAN, Ilya Primary Care Physician Encounter [facility] [place] Date(s): 08/10/21 - 09/09/21 [facility] Allergies, Adverse Reactions, Alerts Substance Reaction Severity [...] Refills, Maintenance, 06/29/21 15:10:00 EDT, ER Tablet, [facility]/pharmacy #[id number], Partial fill upon patient request if the prescription is for a schedule II opioid drug., 155, cm, 05/30/21 15:34:... Start Date: 06/29/21 Status: Ordered capsaicin 0.025% topical cream See Instructions, APPLY TO AFFECTED AREA TWICE A DAY, # 60 Gm, 1 Refills, [id number], 30, APPLY TO AFFECTED AREA TWICE A DAY, 155, cm, 05/30/21 15:34:00 EDT, Height, 95.9, kg, 12/05/20 10:08:00 EDT, Dry Weight Start Date: 05/31/21 Status: Ordered Cavilon Emollient topical cream 1 application, Topically, 2 times a day, PRN for dry skin, # 454 Gm, 1 Refills, Maintenance, 09/30/19 16:26:00 EDT, Cream, [facility], 1 application Topically 2 times a day,PRN:for dry skin, 158, cm, 08/27/19 13:02:00 EDT, Height, 76, kg... Start Date: 09/30/19 Status: Ordered clonazePAM 0.5 mg oral tablet 1 tablet = 0.5 mg, By Mouth, Daily, May fill 08/12/21, # 7 tablet, 0 Refills, Maintenance, 09/08/21 15:37:00 EDT, Tablet, [facility], PATENT DRAFTER reviewed, covering for Dr. De Leon, 155, cm, 08/24/21 14:47:00 EDT, Height, 95.9, kg, 12/05/20... Start Date: 09/08/21 Stop Date: 09/15/21 Status: Ordered Dovonex 0.005% topical cream 1 applicator, Topically, 2 times a day, # 60 Gm, 5 Refills, Maintenance, 07/07/19 17:30:00 EDT, [facility], 1 applicator Topically 2 times a day,x30 days, 158, cm, 12/24/18 10:25:00 EDT, Height, 76, kg, 04/12/19 15:31:00 EST, Dry Weight Start Date: 07/07/19 Stop Date: 01/03/20 Status: Ordered fluticasone 50 mcg/inh nasal spray 1 sprays, Nares, Both, 2 times a day, in each nostril. for allergies, # 16 Gm, 0 Refills, Maintenance, 04/27/20 14:35:00 EST, [place], [facility], Partial fill upon patient request if theprescription is for a schedule II opioid drug., 1... Start Date: 04/27/20 Stop Date: 05/27/20 Status: Ordered halobetasol 0.05% topical ointment See Instructions, APPLY A THIN FILM TO THE AFFECTED SKIN AND RUB IN GENTLY AND COMPLETELY TWICE A DAY, # 50 Gm, 1 Refills, [facility] [id number], 30, APPLY A THIN FILM TO THE AFFECTED SKIN AND RUB IN GENTLY AND COMPLETELY TWICE A DAY, 155, cm, 12/05/20 10:0... Start Date: 03/15/21 Status: Ordered hydrocortisone 1% topical cream 1 application, Topically, 2 times a day, # 30 Gm, 0 Refills, Maintenance, 06/17/21 11:42:00 EDT, Cream, [facility] 3, Partial fill upon patient request if the prescription is for a schedule II opioid drug., 1 application Topically 2 times... Start Date: 06/17/21 Status: Ordered hydrOXYzine hydrochloride 25 mg oral tablet 1 capsule, By Mouth, 3 times a day, PRN for itching, for 30 days, # 90 capsule, 1 Refills, Acute 10/23/21 14:41:00 EDT, 08/24/21 14:41:00 EDT, Capsule, [facility], Partial fill upon patient request if the prescription is for a sche... Start Date: 08/24/21 Stop Date: 10/23/21 Status: Ordered ketoconazole 2% topical shampoo See Instructions, APPLY 1 APPLICATOR TOPICALLY 3X PER WEEK, # 120 mL, 3 Refills, [facility] [id number], 30, APPLY 1 APPLICATOR TOPICALLY 3X PER WEEK, 155, cm, 05/30/21 15:34:00 EDT, Height, 95.9, kg, 12/05/20 10:08:00 EDT, Dry Weight Start Date: 08/02/21 Status: Ordered loratadine 10 mg oral tablet 1, tablet, By Mouth, Daily, # 15 tablet, Refills 5, Tot. Refills 5, Maintenance, 08/19/21 9:15:00 EDT, Route to Pharmacy Electronically, [facility]/pharmacy #[id number], 155, cm, 05/30/21 15:34:00 EDT, Height, 95.9, kg, 12/05/20 10:08:00 EDT, Dry Weight Start Date: 08/19/21 Status: Ordered Methadone By Mouth, 0 Refills, Maintenance Start Date: 12/25/11 Status: Ordered mupirocin 2% topical cream 1 application, Topically, 3 times a day, # 30 Gm, 2 Refills, Maintenance, 03/08/21 10:26:00 EST, [id number] fill upon patient request [...] 7 RAY, # 7 tablet, 0 Refills, [facility], 155, cm, 08/24/21 14:47:00 EDT, Height, 95.9, kg, 12/05/20 10:08:00 EDT, Dry Weight Start Date: 09/08/21 Status: Ordered selenium sulfide 2.5% topical lotion See Instructions, APPLY TOPICALLY TO AFFECTED AREA EVERY DAY FOR 7 DAYS, # 120 mL, 3 Refills, Soft Stop, 04/26/21 18:07:00 EST, [facility]/pharmacy #[id number], 7, APPLY TOPICALLY TO AFFECTED AREA EVERY DAY FOR 7DAYS, 155, cm, 04/18/21 10:12:00 EST, Height, 95.9,... Start Date: 04/26/21 Status: Ordered tiZANidine 2 mg oral tablet 1, tablet, By Mouth, 3 times a day, # 60 tablet, Refills 0, Route to Pharmacy Electronically, [facility] [id number], 155, cm, 05/03/21 14:39:00 EST, Height, 95.9, kg, 12/05/20 10:08:00 EDT, Dry Weight Start Date: 05/09/21 Status: Ordered traMADol 50 mg oral tablet 1 tablet = 50 mg, By Mouth, Every 8 hours, PRN Pain , Severe, for 7 days, # 21 tablet, 0 Refills, Acute 09/15/21 15:37:00 EDT, 09/08/21 15:37:00 EDT, Tablet, [facility], Partial fill upon patient request if the prescription is for... Start Date: 09/08/21 Stop Date: 09/15/21 Status: Ordered Problem List Condition Effective Dates Status Health Status Inform ant Anxiety(Confirmed) Active Opioid type dependence, continuous(Confirmed) 1 Active Osteoarthritis of left knee(Confirmed) Active Psoriasis(Confirmed) Active Severe obesity(Confirmed) Active 1Client had been seen by Jazz Francois at [facility]. Client has no-showed to last appt and today.She will be targetted for closing if she does not responde to correspondence that will be sent on 02/14/13 Social History Social History Type Response Smoking Status 10 or more cigarette s (1/2 pack or more)/day in last 30 days entered on: 04/18/21 Sex
--- OUTSIDE RECORDS SUMMARY | 2022-11-03 10:40 | XMS_ITS | Continuity of Care Document ---
Author Name Unknown Organization [facility] Address Unknown Care Team Providers Care Clinical Nursing Coordinator Name Role Phone Ilya De Leon MD Primary Care Physician Encounter [facility] [place] Date(s): 03/31/21 - 05/04/21 [facility] Attending Physician: Justice Paez MD Admitting Physician: [...] M[facility]MIN[facility]ED AT [facility] Medications Bactrim DS 800 mg-160 mg oral tablet 1 tablet, By Mouth, 2 times a day, for 3 days, # 6 tablet, 0 Refills, Acute 05/06/21 15:41:00 EST, 05/03/21 15:41:00 EST, Tablet, [facility]/pharmacy #[id number], Partial fill upon patient request if the prescription is for a schedule II opioid drug., 1 tablet By... Start Date: 05/03/21 Stop Date: 05/06/21 Status: Ordered Cavilon Emollient topical cream 1 application, Topically, 2 times a day, PRN for dry skin, # 454 Gm, 1 Refills, Maintenance, 09/30/19 16:26:00 EDT, Cream, [facility], 1 application Topically 2 times a day,PRN:for dry skin, 158, cm, 08/27/19 13:02:00 EDT, Height, 76, kg... Start Date: 09/30/19 Status: Ordered Claritin 10 mg oral tablet 10 mg, 1, tablet, By Mouth, Daily, # 15 tablet, Refills 3, Tot. Refills 3, Maintenance, 05/03/21 15:42:00 EST, Route to Pharmacy Electronically, [facility]/pharmacy #[id number], 155, cm, 05/03/21 14:39:00 EST, Height, 95.9, kg, 12/05/20 10:08:00 EDT, Dry Weight Start Date: 05/03/21 Status: Ordered clonazePAM 0.5 mg oral tablet 1 tablet = 0.5 mg, By Mouth, Daily, may fill 05/02, # 14 tablet, 0 Refills, Maintenance, 05/01/21 3:37:00 EST, Tablet, [facility]/pharmacy #[id number], SUPPLY CHAIN COORDINATOR reviewed, covering for Dr. De Leon, 155, [...] Gm, 0 Refills, Maintenance, 04/27/20 14:35:00 EST, [place], [facility], Partial fill upon patient request if theprescription is for a schedule II opioid drug., 1... Start Date: 04/27/20 Stop Date: 05/27/20 Status: Ordered furosemide 20 mg oral tablet 1, tablet, By Mouth, Daily, # 30 tablet, Refills 3, Tot. Refills 3, Maintenance, 04/18/21 12:11:00 EST, Route to Pharmacy Electronically, [facility]/pharmacy #[id number], 155, cm, 04/18/21 10:12:00 EST, Height, 95.9, kg, 12/05/20 10:08:00 EDT, Dry Weight Start Date: 04/18/21 Status: Ordered halobetasol 0.05% topical ointment See Instructions, APPLY A THIN FILM TO THE AFFECTED SKIN AND RUB IN GENTLY AND COMPLETELY TWICE A DAY, # 50 Gm, 1 Refills, [id number], 30, APPLY A THIN FILM TO THE AFFECTED SKIN AND RUB IN GENTLY AND COMPLETELY TWICE A DAY, 155, cm, 12/05/20 10:0... Start Date: 03/15/21 Status: Ordered ketoconazole 2% topical shampoo See Instructions, APPLY 1 APPLICATOR TOPICALLY 3X PER WEEK, # 120 mL, 3 Refills, [id number], 30, APPLY 1 APPLICATOR TOPICALLY 3X PER WEEK, 155, cm, 03/17/21 7:53:00 EST, Height, 95.9, kg, 12/05/20 10:08:00 EDT, Dry Weight Start Date: 03/21/21 Status: Ordered Methadone By Mouth, 0 Refills, Maintenance Start Date: 12/25/11 Status: Ordered mupirocin 2% topical cream 1 application, Topically, 3 times a day, # 30 Gm, 2 Refills, Maintenance, 03/08/21 10:26:00 EST, Cream, [facility]/pharmacy #[id number], Partial fill upon patient request if the prescription is for a schedule II opioid drug., 1 application Topically 3 times a day,... Start Date: 03/08/21 Status: Ordered permethrin 5% topical cream 1 application, Topically, Once, to skin head to feet, remove by washing after 8 to 14 hours, # 60 Gm, 0 Refills, Soft Stop, 07/27/20 11:50:00 EDT, Cream, [facility], 1 applicationTopically Once,Instr:to skin head to feet, remove b... Start Date: 07/27/20 Status: Ordered predniSONE 10 mg oral tablet 1 tablet = 10 mg, By Mouth, Daily, may fill 05/02/21, # 14 tablet, 0 Refills, Maintenance, 05/01/21 3:37:00 EST, [facility]/pharmacy #[id number], Partial fill upon patient request if the prescription is for a schedule II opioid drug., 155, cm, 04/18/21 10:12:00 EST... Start Date: 05/01/21 Stop Date: 05/15/21 Status: Ordered selenium sulfide 2.5% topical lotion See Instructions, APPLY TOPICALLY TO AFFECTED AREA EVERY DAY FOR 7 DAYS, # 120 mL, 3 Refills, Soft Stop, 04/26/21 18:07:00 EST, [facility]/pharmacy #[id number], 7, APPLY TOPICALLY TO AFFECTED AREA EVERY DAY FOR 7DAYS, 155, cm, 04/18/21 10:12:00 EST, Height, 95.9,... Start Date: 04/26/21 Status: Ordered tiZANidine 2 mg oral tablet 2 mg, 1, tablet, By Mouth, 3 times a day, # 60 tablet, Refills 0, Tot. Refills 0, Maintenance, 05/03/21 15:42:00 EST, Route to Pharmacy Electronically, [facility]/pharmacy #[id number], Partial fill upon patient request if the prescription is for a schedule II opio... Start Date: 05/03/21 Status: Ordered Problem List Condition Effective Dates [...]
--- OUTSIDE RECORDS SUMMARY | 2022-11-03 10:40 | XMS_ITS | Continuity of Care Document ---
Author Name Unknown Organization [facility] Address Unknown Care Team Providers Care Engineering Production Liaison Name Role Phone Ilya De Leon MD Primary Care Physician Encounter [facility] [place] Date(s): 11/18/20 - 12/18/20 [facility] Allergies, Adverse Reactions, [...] 1 Refills, Maintenance, 09/30/19 16:26:00 EDT, Cream, [facility], 1 application Topically 2 times a day,PRN:for dry skin, 158, cm, 08/27/19 13:02:00 EDT, Height, 76, kg... Start Date: 09/30/19 Status: Ordered cetirizine 10 mg oral tablet 1 tablet = 10 mg, By Mouth, Daily, # 30 tablet, 0 Refills, Maintenance, 12/03/20 13:44:00 EDT, Tablet, [id number], Partial fill upon patient request if the prescription is for a schedule II opioid drug., 158, cm, 12/03/20 13:27:00 EDT, Height,... Start Date: 12/03/20 Status: Ordered Claritin 10 mg oral tablet 10 mg, 1, tablet, By Mouth, Daily, # 15 tablet, Refills 3, Tot. Refills 3, Maintenance, 11/06/18 8:33:38 EDT, Route to Pharmacy Electronically, [id number], [facility] Start Date: 11/06/18 Status: Ordered clonazePAM 0.5 mg oral tablet 1 tablet = 0.5 mg, By Mouth, Daily, # 1 tablet, 0 Refills, Maintenance, 10/17/20 9:00:00 EDT, Tablet, [facility] 3, Partial fill upon patient request if the prescription is for a scheduleII opioid drug., 158, cm, 09/24/20 10:45:00 EDT, He... Start Date: 10/17/20 Stop Date: 10/18/20 Status: Ordered clonazePAM 0.5 mg oral tablet 1 tablet = 0.5 mg, By Mouth, Daily, Early refill for lost medication, # 10 tablet, 0 Refills, Maintenance, 12/07/20 14:44:00 EDT, Tablet, [id number], Partial fill upon patient request if the prescription is for a schedule II opioid drug., 155,... Start Date: 12/07/20 Stop Date: 12/17/20 Status: Ordered diphenhydrAMINE 25 mg oral tablet 1 tablet = 25 mg, By Mouth, 3 times a day, PRN as needed for itching, Will cause drowsiness, # 30 tablet, 0 Refills, Maintenance, 07/16/20 15:11:00 EDT, Tablet, [facility], Partial fill upon patient request if the prescription is f... Start Date: 07/16/20 Status: Ordered Dovonex 0.005% topical cream 1 applicator, Topically, 2 times a day, # 60 Gm, 5 Refills, Maintenance, 07/07/19 17:30:00 EDT, [facility], 1 applicator Topically 2 [...] Gm, 0 Refills, Maintenance, 04/27/20 14:35:00 EST, [place], [facility], Partial fill upon patient request if theprescription is for a schedule II opioid drug., 1... Start Date: 04/27/20 Stop Date: 05/27/20 Status: Ordered furosemide 20 mg oral tablet 1, tablet, By Mouth, Daily, # 30 tablet, Refills 3, Tot. Refills 0, Maintenance, 10/21/20 11:22:00 EDT, Route to Pharmacy Electronically, [id number], 158, cm, 10/18/20 10:46:00 EDT, Height, 95.4, kg, 10/16/20 10:11:00 EDT, Dry Weight Start Date: 10/21/20 Status: Ordered halobetasol 0.05% topical ointment See Instructions, APPLY A THIN FILM TO THE AFFECTED SKIN AND RUB IN GENTLY AND COMPLETELY TWICE A DAY, # 50 Gm, 1 Refills, [facility], 30, APPLY A THIN FILM TO THE AFFECTED SKIN AND RUB IN GENTLY AND COMPLETELY TWICE A DAY, 158, cm, 10/18/20 10:4... Start Date: 12/02/20 Status: Ordered hydrocortisone 1% topical cream 1 application, Topically, 2 times a day, Apply to rash areas, # 60 Gm, 3 Refills, Maintenance, 06/04/19 14:52:00 EDT, Cream, [facility], 1 application Topically 2 times a day,Instr:Apply to rash areas, 158, cm, 12/24/18 10:25:00 EDT, Hei... Start Date: 06/04/19 Status: Ordered ketoconazole 2% topical shampoo See Instructions, APPLY 1 APPLICATOR TOPICALLY 3X PER WEEK, # 120 mL, 3 Refills, [facility], 30, APPLY 1 APPLICATOR TOPICALLY 3X PER [...] 12/26/20 11:39:00 EDT, 09/24/20 11:38:00 EDT, Ointment, [facility]/pharmacy #[id number], Partial fill upon patient request if [...] 2 Refills, Maintenance, 12/17/20 15:28:00 EDT, Cream, [id number], Partial fill upon patient request if the prescription is for a schedule II opioid drug., 1 application Topically 3 times a day,... Start Date: 12/17/20 Status: Ordered Moore 0.65% nasal spray 2 sprays, Nares, Both, 4 times a day, # 1 each, 0 Refills, Maintenance, 12/03/20 13:46:00 EDT, [id number], [facility] fill [...] Refills, Soft Stop, 07/27/20 11:50:00 EDT, Cream, [facility], 1 applicationTopically Once,Instr:to skin head to feet, remove b... Start Date: 07/27/20 Status: Ordered predniSONE 5 mg oral tablet 1 tablet = 5 mg, By Mouth, 3 times a day, may fill 12/17/20 for 14 days, # 42 tablet, 0 Refills, Maintenance, 12/17/20 15:28:00 EDT, Tablet, [id number], Partial fill upon patient request if the prescription is for a schedule II opioid drug., 15... Start Date: 12/17/20 Stop Date: 12/31/20 Status: Ordered selenium sulfide 2.5% topical lotion See Instructions, APPLY TOPICALLY TO AFFECTED AREA EVERY DAY FOR 7 DAYS, # 120 mL, 3 Refills, Soft Stop, 07/23/20 11:40:00 EDT, [facility], 7, APPLY TOPICALLY TO AFFECTED AREA EVERY DAY FOR 7 DAYS, 158, cm, 07/23/20 11:13:00 EDT, H... Start Date: 07/23/20 Status: Ordered Shingrix intramuscular injection = 0.5 mL, Intramuscular, Once, repeat dose in 2 to 6 months, # 2 each, 0 Refills, Soft Stop, 05/27/20 11:03:00 EDT, Powder, [facility], Partial fill upon patient request if [...] 1 Refills, Maintenance, 03/10/20 18:21:00 EST, Cream, [facility], Partial fill upon patient [...] 0 Refills, Maintenance, 09/24/20 11:47:00 EDT, Gel, [facility]/pharmacy #[id number], 1 application Topically 4 times a day,Instr:for knee pain, 158, cm, 09/24/20 10:45:00 EDT, Height, 82, kg, ... Start Date: 09/24/20 Status: Ordered Problem List Condition Effective Dates Status Health Status Inform ant Anxiety(Confirmed) Active Opioid type dependence, continuous(Confirmed) 1 Active Osteoarthritis of left knee(Confirmed) Active Psoriasis(Confirmed) Active 1Client had been seen by Jazz Francois at [facility]. Client has no-showed to last appt and today.She will be targetted for closing if she does not responde to correspondence that will be sent on 02/14/13 Social History Social History Type Response Smoking Status 5-9 cigarettes (betw een 1/4 to 1/2 pack)/day in last 30 days entered on: 09/08/20 Sex
--- OUTSIDE RECORDS SUMMARY | 2022-11-03 10:40 | XMS_ITS | Continuity of Care Document ---
Author Name Unknown Organization [facility] Address [address] [place] [address]- Care Team Providers Care Sales Merchandise Associate Name Role Phone Ilya De Leon MD Primary Care Physician En[place] [facility] [place] Date(s): 04/05/22 - 05/31/22 [facility]/[address] [address]- Attending Physician: Ilya De Leon MD Admitting [...] Maintenance, 06/29/21 15:10:00 EDT, ER Tablet, [id number], Partial fill upon patient request if the prescription is for a schedule II opioid drug., 155, cm, 05/30/21 15:34:... Start Date: 06/29/21 Status: Ordered capsaicin 0.025% topical cream See Instructions, APPLY TO AFFECTED AREA TWICE A DAY, # 60 Gm, 1 Refills, [facility], 30, APPLY TO AFFECTED AREA TWICE A [...] 2 Refills, Maintenance, 05/24/22 10:44:00 EDT, Tablet, [facility], PRODUCE TEAM MEMBER reviewed, covering for Dr. De Leon, 155, cm, 01/10... Start Date: 05/24/22 Stop Date: 06/14/22 Status: Ordered clonazePAM 0.5 mg oral tablet 1 tablet = 0.5 mg, By Mouth, Daily at bedtime, May fill 04/14/22 and weekly on Fridays for3 weeks, # 7 tablet, 2 Refills, Maintenance, 04/13/22 10:13:00 EST, Tablet, [facility], PMPreviewed, covering for Dr. De Leon, 155, cm, ... Start Date: 04/13/22 Stop Date: 05/04/22 Status: Ordered coal tar topical 1% lotion See Instructions, applyTopically Daily at bedtime, # 120 mL, 3 Refills, Maintenance, 10/26/21 15:45:00 EDT, [facility], Partial fill upon patient request if the prescription is for a schedule II opioid drug., applyTopically Daily a... Start Date: 10/26/21 Status: Ordered Dovonex 0.005% topical cream 1 applicator, Topically, 2 times a day, # 60 Gm, 5 Refills, Maintenance, 05/24/22 12:41:00 EDT, [facility], 1 applicator Topically 2 times a day,x30 days, 155, cm, 01/23/22 14:00:00 EST, Height, 106.5, kg, 09/14/21 9:38:00 EDT, Dry... Start Date: 05/24/22 Stop Date: 11/20/22 Status: Ordered Eucerin Unscented topical lotion See Instructions, apply as frequently as needed, # 1 each, 0 Refills, Maintenance, 09/28/21 12:23:00 EDT, [facility], Partial fill upon patient request if the prescription is for a schedule II opioid drug., apply as frequently as n... Start Date: 09/28/21 Status: Ordered fluticasone 50 mcg/inh nasal spray 1 sprays, Nares, Both, 2 times a day, in each nostril. for allergies, # 16 Gm, 0 Refills, Maintenance, 04/27/20 14:35:00 EST, [place], [facility] 3, Partial fill upon patient request if theprescription is for a schedule II opioid drug., 1... Start Date: 04/27/20 Stop Date: 05/27/20 Status: Ordered halobetasol 0.05% topical ointment See Instructions, APPLY A THIN FILM TO THE AFFECTED SKIN AND RUB IN GENTLY AND COMPLETELY TWICE A DAY, # 50 Gm, 1 Refills, Maintenance, 10/26/21 15:44:00 EDT, [facility], 30, APPLY A THIN FILM TO THE AFFECTED SKIN AND RUB IN GENTLY... Start Date: 10/26/21 Status: Ordered ketoconazole 2% topical shampoo See Instructions, APPLY 1 APPLICATOR TOPICALLY 3X PER WEEK, # 120 mL, 3 Refills, Maintenance, 05/16/22 8:48:00 EST, [facility] [id number], 30, APPLY 1 APPLICATOR TOPICALLY 3X PER WEEK, 155, cm, 01/23/22 14:00:00 EST, Height, 106.5, kg, 09/14/21 9:38:00 EDT,... Start Date: 05/16/22 Status: Ordered loratadine 10 mg oral tablet 1, tablet, By Mouth, Daily, # 90 tablet, Refills 1, Maintenance, 05/23/22 16:24:00 EDT, Route to Pharmacy Electronically, [id number], 155, cm, 01/23/22 14:00:00 EST, Height, 106.5, [...] Refills, Soft Stop, 07/27/20 11:50:00 EDT, Cream, [facility], 1 applicationTopically Once,Instr:to skin head to feet, remove b... Start Date: 07/27/20 Status: Ordered predniSONE 10 mg oral tablet See Instructions, May fill 05/26/22 and weekly on Fridays for 3 weeks, # 14 tablet, 2 Refills, 05/24/22 10:44:00 EDT, [facility], 155, cm, 01/23/22 14:00:00 EST, Height, 106.5, kg,09/14/21 9:38:00 EDT, Dry Weight Start Date: 05/24/22 Status: Ordered predniSONE 10 mg oral tablet See Instructions, May fill and weekly on Fridays for 3 weeks, # 14 tablet, 2 Refills, 04/13/22 10:13:00 EST, [facility], 155, cm, 01/23/22 14:00:00 EST, Height, 106.5, kg,09/14/21 9:38:00 EDT, Dry Weight Start Date: 04/13/22 Status: Ordered selenium sulfide 2.5% topical lotion See Instructions, APPLY TOPICALLY TO AFFECTED AREA EVERY DAY FOR 7 DAYS, # 120 mL, 3 Refills, Soft Stop, 10/26/21 15:43:00 EDT, [facility], 7, APPLY TOPICALLY TO AFFECTED AREA EVERY DAY FOR 7 DAYS, 155, cm, 09/28/21 12:06:00 EDT, H... Start Date: 10/26/21 Status: Ordered tiZANidine 2 mg oral tablet 1, tablet, By Mouth, 3 times a day, # 60 tablet, Refills 0, Route to Pharmacy Electronically, [id number], 155, cm, 05/03/21 14:39:00 EST, Height, 95.9, kg, 12/05/20 10:08:00 EDT, Dry Weight Start Date: 05/09/21 Status: Ordered traMADol 50 mg oral tablet 1 tablet = 50 mg, By Mouth, Every 8 hours, PRN Pain , Severe, for 7 days, May fill 05/26/22 and weekly on Fridays for 3 weeks, # 21 tablet, 2 Refills, Acute 06/14/22 10:43:00 EDT, 05/24/22 10:43:00 EDT, Tablet, [facility], Partial... Start Date: 05/24/22 Stop Date: [...] Personnel Name: Ilya De Leon MD Position: [facility] Primary Care Physician Member Role: PCP Address: Address: [address] [place] [id number]- Care Team Related Persons Name: JD ALVAREZ Address: home [address] [place] [address]
--- OUTSIDE RECORDS SUMMARY | 2022-11-03 10:40 | XMS_ITS | Continuity of Care Document ---
Author Name Unknown Organization [facility] Address [address] [place] [address]- Care Team Providers Care Physician Practice Market Manager Name Role Phone Ilya De Leon MD Primary Care Physician En[place] [facility] [place] [facility] [id number] Date(s): 12/03/20 - 01/02/21 [facility] [address] [place] [address]- Attending Physician: Celsa Lyons Admitting Physician: AdmtrCelsa Referring Physician: Admtr ArLiliana Allergies, Adverse Reactions, Alerts Substance Reaction Severity [...] Refills, Maintenance, 09/30/19 16:26:00 EDT, Cream, [facility], 1 application Topically 2 times a day,PRN:for dry skin, 158, cm, 08/27/19 13:02:00 EDT, Height, 76, kg... Start Date: 09/30/19 Status: Ordered cetirizine 10 mg oral tablet 1 tablet = 10 mg, By Mouth, Daily, # 30 tablet, 0 Refills, Maintenance, 12/03/20 13:44:00 EDT, Tablet, [id number] Partial fill upon patient request if the prescription is for a schedule II opioid drug., 158, cm, 12/03/20 13:27:00 EDT, Height,... Start Date: 12/03/20 Status: Ordered Claritin 10 mg oral tablet 10 mg, 1, tablet, By Mouth, Daily, # 15 tablet, Refills 3, Tot. Refills 3, Maintenance, 11/06/18 8:33:38 EDT, Route to Pharmacy Electronically, [id number], [facility] Start Date: 11/06/18 Status: Ordered clonazePAM 0.5 mg oral tablet 1 tablet = 0.5 mg, By Mouth, Daily, HIDE CURER checked, # 28 tablet, 0 Refills, Maintenance, 12/24/20 11:42:00 EDT, Tablet, [id number], Partial fill upon patient request if the prescription is for aschedule II opioid drug., 155, cm, 12/05/20 10:08:0... Start Date: 12/24/20 Stop Date: 01/21/21 Status: Ordered diphenhydrAMINE 25 mg oral tablet 1 tablet = 25 mg, By Mouth, 3 times a day, PRN as needed for itching, Will cause drowsiness, # 30 tablet, 0 Refills, Maintenance, 07/16/20 15:11:00 EDT, Tablet, [facility], Partial fill upon patient request if the prescription is f... Start Date: 07/16/20 Status: Ordered Dovonex 0.005% topical cream 1 applicator, Topically, 2 times a day, # 60 Gm, 5 Refills, Maintenance, 07/07/19 17:30:00 EDT, [facility] 3, 1 applicator Topically 2 [...] Gm, 0 Refills, Maintenance, 04/27/20 14:35:00 EST, [place], [facility], Partial fill upon patient request if theprescription is for a schedule II opioid drug., 1... Start Date: 04/27/20 Stop Date: 05/27/20 Status: Ordered furosemide 20 mg oral tablet 1, tablet, By Mouth, Daily, # 30 tablet, Refills 3, Tot. Refills 0, Maintenance, 10/21/20 11:22:00 EDT, Route to Pharmacy Electronically, [id number], 158, cm, 10/18/20 10:46:00 EDT, Height, 95.4, kg, 10/16/20 10:11:00 EDT, Dry Weight Start Date: 10/21/20 Status: Ordered halobetasol 0.05% topical ointment See Instructions, APPLY A THIN FILM TO THE AFFECTED SKIN AND RUB IN GENTLY AND COMPLETELY TWICE A DAY, # 50 Gm, 1 Refills, [facility], 30, APPLY A THIN FILM TO THE [...] PER WEEK, # 120 mL, 3 Refills, [facility], 30, APPLY 1 APPLICATOR TOPICALLY 3X PER [...] 2 Refills, Maintenance, 12/17/20 15:28:00 EDT, Cream, [facility]/pharmacy #[id number], Partial fill upon patient request if the prescription is for a schedule II opioid drug., 1 application Topically 3 times a day,... Start Date: 12/17/20 Status: Ordered [place] 0.65% nasal spray 2 sprays, Nares, Both, 4 times a day, # 1 each, 0 Refills, Maintenance, 12/03/20 13:46:00 EDT, [facility]/pharmacy #[id number], Partial fill upon patient [...] Refills, Soft Stop, 07/27/20 11:50:00 EDT, Cream, [facility], 1 applicationTopically Once,Instr:to skin head to feet, remove b... Start Date: 07/27/20 Status: Ordered predniSONE 5 mg oral tablet 1 tablet = 5 mg, By Mouth, 3 times a day, may fill 12/17/20 for 14 days, # 42 tablet, 0 Refills, Maintenance, 12/17/20 15:28:00 EDT, Tablet, [facility]/pharmacy #[id number], Partial fill upon patient request if the prescription is for a schedule II opioid drug., 15... Start Date: 12/17/20 Stop Date: 12/31/20 Status: Ordered selenium sulfide 2.5% topical lotion See Instructions, APPLY TOPICALLY TO AFFECTED AREA EVERY DAY FOR 7 DAYS, # 120 mL, 3 Refills, Soft Stop, 07/23/20 11:40:00 EDT, [facility], 7, APPLY TOPICALLY TO AFFECTED AREA EVERY DAY FOR 7 DAYS, 158, cm, 07/23/20 11:13:00 EDT, H... Start Date: 07/23/20 Status: Ordered Shingrix intramuscular injection = 0.5 mL, Intramuscular, Once, repeat dose in 2 to 6 months, # 2 each, 0 Refills, Soft Stop, 05/27/20 11:03:00 EDT, Powder, [facility], Partial fill upon patient request if [...] 1 Refills, Maintenance, 03/10/20 18:21:00 EST, Cream, [facility] 3, Partial fill [...] had been seen by Jazz Francois at [facility]. Client has no-showed to last appt and today.She will be targetted for closing if she does not responde to correspondence that will be sent on 02/14/13 Social History Social History Type Response Smoking Status 5-9 cigarettes (betw een 1/4 to 1/2 pack)/day in last 30 days entered on: 09/08/20 Sex
--- OUTSIDE RECORDS SUMMARY | 2022-11-03 10:40 | XMS_ITS | Continuity of Care Document ---
Author Name Unknown Organization [facility] Address [address] [place] [address]- Care Team Providers Care Life Skills Instructor Name Role Phone Ilya De Leon MD Primary Care Physician [place] [facility] [place]): 08/06/20 - 09/05/20 [facility]/[address] [address]- Allergies, Adverse Reactions, Alerts Substance Reaction Severity [...] 09/30/19 16:26:00 EDT, Cream, [facility], 1 application Topically 2 times a day,PRN:for dry skin, 158, cm, 08/27/19 13:02:00 EDT, Height, 76, kg... Start Date: 09/30/19 Status: Ordered cetirizine 10 mg oral tablet 1 tablet = 10 mg, By Mouth, Daily, for allergies. Do NOT take with claritin, # 30 tablet, 0 Refills, Maintenance, 07/23/20 11:37:00 EDT, Tablet, [facility], Partial fill upon patient request if the prescription is for a schedule II... Start Date: 07/23/20 Stop Date: 08/22/20 Status: Ordered Claritin 10 mg oral tablet 10 mg, 1, tablet, By Mouth, Daily, # 15 tablet, Refills 3, Tot. Refills 3, Maintenance, 11/06/18 8:33:38 EDT, Route to Pharmacy Electronically, [id number], [facility] Start Date: 11/06/18 Status: Ordered clonazePAM 0.5 mg oral tablet 1 tablet = 0.5 mg, By Mouth, Daily, # 28 tablet, 0 Refills, Maintenance, 08/26/20 14:39:00 EDT, Tablet, [facility], Partial fill upon patient request if the prescription is for a schedule II opioid drug., 158, cm, 08/26/20 14:27:00... Start Date: 08/26/20 Status: Ordered diphenhydrAMINE 25 mg oral tablet 1 tablet = 25 mg, By Mouth, 3 times a day, PRN as needed for itching, Will cause drowsiness, # 30 tablet, 0 Refills, Maintenance, 07/16/20 15:11:00 EDT, Tablet, [facility], Partial fill upon patient request if the prescription is f... Start Date: 07/16/20 Status: Ordered Dovonex 0.005% topical cream 1 applicator, Topically, 2 times a day, # 60 Gm, 5 Refills, Maintenance, 07/07/19 17:30:00 EDT, [facility], 1 applicator Topically 2 times a [...] Gm, 0 Refills, Maintenance, 04/27/20 14:35:00 EST, [place], [facility], Partial fill upon patient request if theprescription is for a schedule II opioid drug., 1... Start Date: 04/27/20 Stop Date: 05/27/20 Status: Ordered furosemide 20 mg oral tablet 20 mg, 1, tablet, By Mouth, Daily, # 30 tablet, Refills 1, Tot. Refills 1, Maintenance, 08/27/20 16:12:00 EDT, Route to Pharmacy Electronically, [facility]/pharmacy #[id number], Partial fill upon patient request if the prescription is for a schedule II opioid drug... Start Date: 08/27/20 Status: Ordered halobetasol 0.05% topical cream 1 application, Topically, 2 times a day, # 50 Gm, 3 Refills, Maintenance, 08/02/20 12:54:00 EDT, Cream, [facility], Partial fill upon patient request if the prescription is for a schedule II opioid drug., 1 application Topically 2... Start Date: 08/02/20 Status: Ordered hydrocortisone 1% topical cream 1 application, Topically, 2 times a day, Apply to rash areas, # 60 Gm, 3 Refills, Maintenance, 06/04/19 14:52:00 EDT, Cream, [facility] 3, 1 application Topically 2 times a [...] 3 Refills, Soft Stop, 08/12/20 10:30:00 EDT, [facility]/pharmacy #[id number], 1 applicator Topically 3x per week, [...] tablet See Instructions, 1 tablet daily, # 28 tablet, 0 Refills, Maintenance, 08/26/20 14:32:00 EDT, [facility], Partial fill upon patient request if the prescription is for a schedule II opioid drug., 158, cm, 08/26/20 14:27:00 EDT, [place]... Start Date: 08/26/20 Status: Ordered selenium sulfide 2.5% topical lotion See Instructions, APPLY TOPICALLY TO AFFECTED AREA EVERY DAY FOR 7 DAYS, # 120 mL, 3 Refills, Soft Stop, 07/23/20 11:40:00 EDT, [facility], 7, APPLY TOPICALLY TO AFFECTED AREA EVERY DAY FOR 7 DAYS, 158, cm, 07/23/20 11:13:00 EDT, H... Start Date: 07/23/20 Status: Ordered Shingrix intramuscular injection = 0.5 mL, Intramuscular, Once, repeat dose in 2 to 6 months, # 2 each, 0 Refills, Soft Stop, 05/27/20 11:03:00 EDT, Powder, [facility], Partial fill upon patient [...] 1 Refills, Maintenance, 03/10/20 18:21:00 EST, Cream, [facility] 3, Partial fill upon patient request if [...] 0 Refills, Maintenance, 07/23/20 11:37:00 EDT, Gel, [facility], 1 application Topically 4 times a day, 158, cm, 07/23/20 11:13:00 EDT, Height, 82, kg, 07/21/20 20:18:00 EDT, Dry We... Start Date: 07/23/20 Status: Ordered Problem List Condition Effective Dates Status Health Status Inform ant Opioid type dependence, continuous(Confirmed) 1 Active 1Client had been seen by Jazz Francois at [facility]. Client has no-showed to last appt and today.She will be targetted for closing if she does not responde to correspondence that will be sent on 02/14/13 Social History Social History Type Response Smoking Status 5-9 cigarettes (betw een 1/4 to 1/2 pack)/day in last 30 days entered on: 08/26/20 Sex
--- OUTSIDE RECORDS SUMMARY | 2022-11-03 10:40 | XMS_ITS | Continuity of Care Document ---
Author Name Unknown Organization [facility] Address Unknown Care Team Providers Care Creative Designer Name Role Phone Ilya De Leon MD Primary Care Physician En[place] [facility] [place](s): 05/25/21 - 06/24/21 [facility] Allergies, Adverse Reactions, Alerts Substance Reaction [...] FLUVIRIN MULTIDOSE ADMINISTERED AT [facility] Medications capsaicin 0.025% topical cream See Instructions, APPLY TO AFFECTED AREA TWICE A DAY, # 60 Gm, 1 Refills, [id number], 30, APPLY TO AFFECTED AREA TWICE A DAY, 155, cm, 05/30/21 15:34:00 EDT, Height, 95.9, kg, 12/05/20 10:08:00 EDT, Dry Weight Start Date: 05/31/21 Status: Ordered Cavilon Emollient topical cream 1 application, Topically, 2 times a day, PRN for dry skin, # 454 Gm, 1 Refills, Maintenance, 09/30/19 16:26:00 EDT, Cream, [facility], 1 application Topically 2 times a day,PRN:for dry skin, 158, cm, 08/27/19 13:02:00 EDT, Height, 76, kg... Start Date: 09/30/19 Status: Ordered clonazePAM 0.5 mg oral tablet 1 tablet = 0.5 mg, By Mouth, Daily, mAY FILL 06/21/21, # 14 tablet, 0 Refills, Maintenance, 06/21/2215:00:00 EDT, Tablet, [facility]/pharmacy #[id number], HEAVY EQUIPMENT OPERATING ENGINEER reviewed, covering for Dr. De Leon, 155, cm, 05/30/2214:34:00 EDT, Height, 95.9, kg, 12/05/20 10:08:00 E... Start Date: 06/20/21 Stop Date: 07/04/21 Status: Ordered Dovonex 0.005% topical cream 1 applicator, Topically, 2 times a day, # 60 Gm, 5 Refills, Maintenance, 07/07/19 17:30:00 EDT, [facility], 1 applicator Topically 2 times a day,x30 days, 158, cm, 12/24/18 10:25:00 EDT, Height, 76, kg, 04/12/19 15:31:00 EST, Dry Weight Start Date: 07/07/19 Stop Date: 01/03/20 Status: Ordered fluticasone 50 mcg/inh nasal spray 1 sprays, Nares, Both, 2 times a day, in each nostril. for allergies, # 16 Gm, 0 Refills, Maintenance, 04/27/20 14:35:00 EST, [place], [facility], Partial fill upon patient request if [...] A DAY, # 50 Gm, 1 Refills, [facility] [id number], 30, APPLY A THIN FILM TO THE AFFECTED SKIN AND RUB IN GENTLY AND COMPLETELY TWICE A DAY, 155, cm, 12/05/20 10:0... Start Date: 03/15/21 Status: Ordered hydrocortisone 1% topical cream 1 application, Topically, 2 times a day, # 30 Gm, 0 Refills, Maintenance, 06/17/21 11:42:00 EDT, Cream, [facility], Partial fill upon patient request if the prescription is for a schedule II opioid drug., 1 application Topically 2 times... Start Date: 06/17/21 Status: Ordered ketoconazole 2% topical shampoo See Instructions, APPLY 1 APPLICATOR TOPICALLY 3X PER WEEK, # 120 mL, 3 Refills, [facility] [id number], 30, APPLY 1 APPLICATOR TOPICALLY 3X PER WEEK, 155, cm, 03/17/21 7:53:00 EST, Height, 95.9, kg, 12/05/20 10:08:00 EDT, Dry Weight Start Date: 03/21/21 Status: Ordered loratadine 10 mg oral tablet 1, tablet, By Mouth, Daily, # 15 tablet, Refills 3, Route to Pharmacy Electronically, [facility] [id number], 155, cm, 05/30/21 15:34:00 EDT, Height, 95.9, [...] Soft Stop, 07/27/20 11:50:00 EDT, Cream, [facility], 1 applicationTopically Once,Instr:to skin head to feet, remove b... Start Date: 07/27/20 Status: Ordered predniSONE 10 mg oral tablet 1 tablet, By Mouth, Daily, for 7 days, May fill on 06/28 and will be sent to [facility], # 7 tablet, 0 Refills, Physician Stop 06/29/21 14:14:00 EDT, 06/22/21 14:14:00 EDT, [facility], 155, cm, 05/30/21 15:34:00 EDT, Height, [...] to Pharmacy Electronically, [facility] [id number], 155, cm, 05/03/21 14:39:00 EST, Height, 95.9, kg, 12/05/20 10:08:00 EDT, Dry Weight Start Date: 05/09/21 Status: Ordered Problem List Condition Effective Dates Status Health Status Inform ant Anxiety(Confirmed) Active Opioid type dependence, continuous(Confirmed) 1 Active Osteoarthritis of left knee(Confirmed) Active Psoriasis(Confirmed) Active Severe obesity(Confirmed) Active 1Client had been seen by Jazz Francois at [facility]. Client has no-showed to last appt and today.She will be targetted for closing if she does not responde to correspondence that will be sent on 02/14/13 Social History Social History Type Response Smoking Status 10 or more cigarette s (1/2 pack or more)/day in last 30 days entered on: 04/18/21 Sex
--- OUTSIDE RECORDS SUMMARY | 2022-11-03 10:40 | XMS_ITS | Continuity of Care Document ---
Author Name Unknown Organization [facility] Address Unknown Care Team Providers Care Horticultural Specialty Grower Inside Name Role Phone Haley NEWMAN, Ilya Primary Care Physician Encounter [facility] Date(s): 06/13/21 - 07/13/21 [facility] Allergies, Adverse Reactions, Alerts Substance Reaction [...] Refills, Maintenance, 06/29/21 15:10:00 EDT, ER Tablet, [facility]/pharmacy #[id number], Partial fill upon patient request if the prescription is for a schedule II opioid drug., 155, cm, 05/30/21 15:34:... Start Date: 06/29/21 Status: Ordered capsaicin 0.025% topical cream See Instructions, APPLY TO AFFECTED AREA TWICE A DAY, # 60 Gm, 1 Refills, [facility] [id number], 30, APPLY TO AFFECTED AREA TWICE A DAY, 155, cm, 05/30/21 15:34:00 EDT, Height, 95.9, kg, 12/05/20 10:08:00 EDT, Dry Weight Start Date: 05/31/21 Status: Ordered Cavilon Emollient topical cream 1 application, Topically, 2 times a day, PRN for dry skin, # 454 Gm, 1 Refills, Maintenance, 09/30/19 16:26:00 EDT, Cream, [facility], 1 application Topically 2 times a day,PRN:for dry skin, 158, cm, 08/27/19 13:02:00 EDT, Height, 76, kg... Start Date: 09/30/19 Status: Ordered clonazePAM 0.5 mg oral tablet 1 tablet = 0.5 mg, By Mouth, Daily, mAY FILL 07/06/21, # 7 tablet, 0 Refills, Maintenance, 07/05/21 14:58:00 EDT, Tablet, [facility], DISPLAY MANAGER reviewed, covering for Dr. De Leon, 155, cm, 05/30/21 15:34:00 EDT, Height, 95.9, kg, 12/05/20... Start Date: 07/05/21 Stop Date: 07/12/21 Status: Ordered clonazePAM 0.5 mg oral tablet 1 tablet = 0.5 mg, By Mouth, Daily, mAY FILL 06/21/21, # 14 tablet, 0 Refills, Maintenance, 06/21/2215:00:00 EDT, Tablet, [facility]/pharmacy #[id number], DISPLAY MANAGER reviewed, covering for Dr. De Leon, [...] Gm, 0 Refills, Maintenance, 04/27/20 14:35:00 EST, [place], [facility], Partial fill upon patient request if theprescription is for a schedule II opioid drug., 1... Start Date: 04/27/20 Stop Date: 05/27/20 Status: Ordered furosemide 20 mg oral tablet 1, tablet, By Mouth, Daily, # 30 tablet, Refills 3, Tot. Refills 3, Maintenance, 04/18/21 12:11:00 EST, Route to Pharmacy Electronically, [facility]/pharmacy #[id number], 155, cm, 04/18/21 10:12:00 EST, Height, 95.9, kg, 12/05/20 10:08:00 EDT, Dry Weight Start Date: 04/18/21 Status: Ordered halobetasol 0.05% topical ointment See Instructions, APPLY A THIN FILM TO THE AFFECTED SKIN AND RUB IN GENTLY AND COMPLETELY TWICE A DAY, # 50 Gm, 1 Refills, [facility] [id number], 30, APPLY A THIN FILM TO THE AFFECTED SKIN AND RUB IN GENTLY AND COMPLETELY TWICE A DAY, 155, cm, 12/05/20 10:0... Start Date: 03/15/21 Status: Ordered hydrocortisone 1% topical cream 1 application, Topically, 2 times a day, # 30 Gm, 0 Refills, Maintenance, 06/17/21 11:42:00 EDT, Cream, [facility], Partial fill upon patient request if the prescription is for a schedule II opioid drug., 1 application Topically 2 times... Start Date: 06/17/21 Status: Ordered ketoconazole 2% topical shampoo See Instructions, APPLY 1 APPLICATOR TOPICALLY 3X PER WEEK, # 120 mL, 3 Refills, [facility] [id number], 30, APPLY 1 APPLICATOR TOPICALLY 3X PER WEEK, 155, cm, 03/17/21 7:53:00 EST, Height, 95.9, kg, 12/05/20 10:08:00 EDT, Dry Weight Start Date: 03/21/21 Status: Ordered loratadine 10 mg oral tablet 1, tablet, By Mouth, Daily, # 15 tablet, Refills 3, Route to Pharmacy Electronically, [facility] [id number], 155, cm, 05/30/21 15:34:00 EDT, Height, 95.9, kg, 12/05/20 10:08:00 EDT, Dry Weight Start Date: 06/21/21 Status: Ordered Methadone By Mouth, 0 Refills, Maintenance Start Date: 12/25/11 Status: Ordered mupirocin 2% topical cream 1 application, Topically, 3 times a day, # 30 Gm, 2 Refills, Maintenance, 03/08/21 10:26:00 EST, Cream, [facility]/pharmacy #[id number], Partial fill upon patient request if the prescription is for a schedule II opioid drug., 1 application Topically 3 times a day,... Start Date: 03/08/21 Status: Ordered permethrin 5% topical cream 1 application, Topically, Once, to skin head to feet, remove by washing after 8 to 14 hours, # 60 Gm, 0 Refills, Soft Stop, 07/27/20 11:50:00 EDT, Cream, [facility], 1 applicationTopically Once,Instr:to skin head to feet, remove b... Start Date: 07/27/20 Status: Ordered selenium sulfide 2.5% topical lotion See Instructions, APPLY TOPICALLY TO AFFECTED AREA EVERY DAY FOR 7 DAYS, # 120 mL, 3 Refills, Soft Stop, 04/26/21 18:07:00 EST, [facility]/pharmacy #[id number], 7, APPLY TOPICALLY TO AFFECTED AREA EVERY DAY FOR 7DAYS, 155, cm, 04/18/21 10:12:00 EST, Height, 95.9,... Start Date: 04/26/21 Status: Ordered tiZANidine 2 mg oral tablet 1, tablet, By Mouth, 3 times a day, # 60 tablet, Refills 0, Route to Pharmacy Electronically, [facility] [id number], 155, cm, 05/03/21 14:39:00 EST, Height, 95.9, [...]
--- OUTSIDE RECORDS SUMMARY | 2022-11-03 10:40 | XMS_ITS | Continuity of Care Document ---
Author Name Unknown Organization [facility] Address Unknown Care Team Providers Care Sample Display Preparer Name Role Phone Haley NEWMAN, Ilya Primary Care Physician Encounter [facility] [place] Date(s): 03/02/21 - 04/01/21 [facility] Allergies, Adverse Reactions, Alerts Substance [...] 01/30/11 Gi lizbeth 1Admin Note: [facility] 2Admin Note: FLUVIRIN MULTIDOSE ADMINISTERED AT [facility] Medications capsaicin 0.025% topical cream See Instructions, APPLY TO AFFECTED AREA TWICE A DAY, # 60 Gm, 0 Refills, [facility] [id number], 30, APPLY TO AFFECTED AREA TWICE A DAY, 155, cm, 03/17/21 7:53:00 EST, Height, 95.9, kg, 12/05/20 10:08:00 EDT, Dry Weight Start Date: 03/21/21 Status: Ordered Cavilon Emollient topical cream 1 application, Topically, 2 times a day, PRN for dry skin, # 454 Gm, 1 Refills, Maintenance, 09/30/19 16:26:00 EDT, [facility], 1 application Topically 2 times a day,PRN:for dry skin, 158, cm, 08/27/19 13:02:00 EDT, Height, 76, kg... Start Date: 09/30/19 Status: Ordered cetirizine 10 mg oral tablet 1 tablet = 10 mg, By Mouth, Daily, # 30 tablet, 0 Refills, Maintenance, 12/03/20 13:44:00 EDT, Tablet, [facility]/pharmacy #[id number], Partial fill upon patient request if the prescription is for a schedule II opioid drug., 158, cm, 12/03/20 13:27:00 EDT, Height,... Start Date: 12/03/20 Status: Ordered Claritin 10 mg oral tablet 10 mg, 1, tablet, By Mouth, Daily, # 15 tablet, Refills 3, Tot. Refills 3, Maintenance, 11/06/18 8:33:38 EDT, Route to Pharmacy Electronically, [id number], [facility] Start Date: 11/06/18 Status: Ordered clindamycin 150 mg oral capsule See Instructions, 3 capsultes 3 times a day, # 45 capsule, 0 Refills, Acute 01/20/22 14:53:00 EST, 03/17/21 14:50:00 EST, Capsule, [facility], Partial fill upon patient request ifthe prescription is for a schedule II opioid drug.,... Start Date: 03/17/21 Stop Date: 01/20/22 Status: Ordered clonazePAM 0.5 mg oral tablet 1 tablet = 0.5 mg, By Mouth, Daily, QUALITY FACILITATOR checked Do not fill until 03/28/21, # 7 tablet, 0 Refills, Maintenance, 03/26/21 17:55:00 EST, Tablet, [facility]/pharmacy #[id number], Partial fill upon patient request if the prescription is for a schedule II opioid drug.,... Start Date: 03/26/21 Stop Date: 04/02/21 Status: Ordered diphenhydrAMINE 25 mg oral tablet 1 tablet = 25 mg, By Mouth, 3 times a day, PRN as needed for itching, Will cause drowsiness, # 30 tablet, 0 Refills, Maintenance, 07/16/20 15:11:00 EDT, Tablet, [facility], Partial fill upon patient request [...] Gm, 0 Refills, Maintenance, 04/27/20 14:35:00 EST, [place], [facility] 3, Partial fill upon patient request if theprescription is for a schedule II opioid drug., 1... Start Date: 04/27/20 Stop Date: 05/27/20 Status: Ordered furosemide 20 mg oral tablet 1, tablet, By Mouth, Daily, # 30 tablet, Refills 3, Tot. Refills 3, Maintenance, 01/20/21 12:45:00 EST, Route to Pharmacy Electronically, [facility]/pharmacy #[id number], 155, cm, 12/05/20 10:08:00 EDT, Height, 95.9, kg, 12/05/20 10:08:00 EDT, Dry Weight Start Date: 01/20/21 Status: Ordered halobetasol 0.05% topical ointment See Instructions, APPLY A THIN FILM TO THE AFFECTED SKIN AND RUB IN GENTLY AND COMPLETELY TWICE A DAY, # 50 Gm, 1 Refills, [facility]ORE [id number], 30, APPLY A THIN FILM TO THE AFFECTED SKIN AND RUB IN GENTLY AND COMPLETELY TWICE A DAY, 155, cm, 12/05/20 10:0... Start Date: 03/15/21 Status: Ordered hydrocortisone 1% topical cream 1 application, Topically, 2 times a day, Apply to rash areas, # 60 Gm, 3 Refills, Maintenance, 06/04/19 14:52:00 EDT, Cream, [facility], 1 application Topically 2 times a day,Instr:Apply to rash areas, 158, cm, 12/24/18 10:25:00 EDT, Hei... Start Date: 06/04/19 Status: Ordered ketoconazole 2% topical shampoo See Instructions, APPLY 1 APPLICATOR TOPICALLY 3X PER WEEK, # 120 mL, 3 Refills, [facility] [id number], 30, APPLY 1 APPLICATOR TOPICALLY 3X PER [...] 2 Refills, Maintenance, 03/08/21 10:26:00 EST, Cream, [facility]/pharmacy #[id number], Partial fill upon patient request if the prescription is for a schedule II opioid drug., 1 application Topically 3 times a day,... Start Date: 03/08/21 Status: Ordered [place] 0.65% nasal spray 2 sprays, Nares, Both, [...] Refills, Soft Stop, 07/27/20 11:50:00 EDT, Cream, [facility], 1 applicationTopically Once,Instr:to skin head to feet, remove b... Start Date: 07/27/20 Status: Ordered predniSONE 20 mg oral tablet 2 tablet = 40 mg, By Mouth, Daily, for 6 days, # 12 tablet, 0 Refills, Acute 04/05/21 9:55:00 EST, 03/30/21 9:55:00 EST, [id number] Partial fill upon patient request if the prescription is for a schedule II opioid drug., 155, cm, 03/12... Start Date: 03/30/21 Stop Date: 04/05/21 Status: Ordered selenium sulfide 2.5% topical lotion See Instructions, APPLY TOPICALLY TO AFFECTED AREA EVERY DAY FOR 7 DAYS, # 120 mL, 3 Refills, Soft Stop, 03/08/21 10:26:00 EST, [facility]/pharmacy #[id number], 7, APPLY TOPICALLY TO AFFECTED AREA EVERY DAY FOR 7DAYS, 155, cm, 12/05/20 10:08:00 EDT, Height, 95.9,... Start Date: 03/08/21 Status: Ordered Shingrix intramuscular injection = 0.5 mL, Intramuscular, Once, repeat dose in 2 to 6 months, # 2 each, 0 Refills, Soft Stop, 05/27/20 11:03:00 EDT, Powder, [facility], Partial fill upon patient request [...] 1 Refills, Maintenance, 03/10/20 18:21:00 EST, [place], [facility], Partial fill upon patient request if the prescription is fora schedule II opioid drug., 1 application Topically... Start Date: 03/10/20 Status: Ordered Problem List Condition Effective Dates Status Health Status Inform ant Anxiety(Confirmed) Active Opioid type dependence, continuous(Confirmed) 1 Active Osteoarthritis of left knee(Confirmed) Active Psoriasis(Confirmed) Active Severe obesity(Confirmed) Active 1Client had been seen by Jazz Francois at [facility]. Client has no-showed to last appt and today.She will be targetted for closing if she does not responde to correspondence that will be sent on 02/14/13 Social History Social History Type Response Smoking Status 5-9 cigarettes (betw een 1/4 to 1/2 pack)/day in last 30 days entered on: 09/08/20 Sex
--- OUTSIDE RECORDS SUMMARY | 2022-11-03 10:40 | XMS_ITS | Continuity of Care Document ---
Author Name Unknown Organization [facility] Address [address] [place] [id number]- Care Team Providers Care Swahili Teacher Name Role Phone Haley NEWMAN, Ilya Primary Care Physician Encounter [facility] Date(s): 07/12/20 - 08/11/20 [facility]/[address] [address]- Allergies, Adverse Reactions, Alerts Substance Reaction Severity [...] 1 Refills, Maintenance, 09/30/19 16:26:00 EDT, Cream, [facility], 1 application Topically 2 times a day,PRN:for dry skin, 158, cm, 08/27/19 13:02:00 EDT, Height, 76, kg... Start Date: 09/30/19 Status: Ordered cetirizine 10 mg oral tablet 1 tablet = 10 mg, By Mouth, Daily, for allergies. Do NOT take with claritin, # 30 tablet, 0 Refills, Maintenance, 07/23/20 11:37:00 EDT, Tablet, [facility], Partial fill upon patient request if the prescription is for a schedule II... Start Date: 07/23/20 Stop Date: 08/22/20 Status: Ordered Claritin 10 mg oral tablet 10 mg, 1, tablet, By Mouth, Daily, # 15 tablet, Refills 3, Tot. Refills 3, Maintenance, 11/06/18 8:33:38 EDT, Route to Pharmacy Electronically, [id number], [facility] Start Date: 11/06/18 Status: Ordered diphenhydrAMINE 25 mg oral tablet 1 tablet = 25 mg, By Mouth, 3 times a day, PRN as needed for itching, Will cause drowsiness, # 30 tablet, 0 Refills, Maintenance, 07/16/20 15:11:00 EDT, Tablet, [facility], Partial fill upon patient request if the prescription is f... Start Date: 07/16/20 Status: Ordered Dovonex 0.005% topical cream 1 applicator, Topically, 2 times a day, # 60 Gm, 5 Refills, Maintenance, 07/07/19 17:30:00 EDT, [facility] 3, 1 applicator Topically 2 times a [...] Gm, 0 Refills, Maintenance, 04/27/20 14:35:00 EST, [place], [facility], Partial fill upon patient request if theprescription is for a schedule II opioid drug., 1... Start Date: 04/27/20 Stop Date: 05/27/20 Status: Ordered halobetasol 0.05% topical cream 1 application, Topically, 2 times a day, # 50 Gm, 3 Refills, Maintenance, 08/02/20 12:54:00 EDT, Cream, [facility], Partial fill upon patient request if the prescription is for a schedule II opioid drug., 1 application Topically 2... Start Date: 08/02/20 Status: Ordered hydrocortisone 1% topical cream 1 application, Topically, 2 times a day, Apply to rash areas, # 60 Gm, 3 Refills, Maintenance, 06/04/19 14:52:00 EDT, Cream, [facility], 1 application Topically 2 times [...] 0 Refills, Soft Stop, 08/06/20 11:18:00 EDT, [facility], 158, cm, 07/23/20 11:13:00 EDT... Start Date: 08/06/20 Status: Ordered Methadone By Mouth, 0 Refills, Maintenance Start Date: 12/25/11 Status: Ordered mupirocin 2% topical ointment 1 application, Topically, 3 times a day, for 7 days, For lesion on right upper arm, # 22 Gm, 0 Refills, Acute 08/13/20 10:17:00 EDT, 08/06/20 10:17:00 EDT, [facility], Partial fill uponpatient request if the prescription is for a schedu... Start Date: 08/06/20 Stop Date: 08/13/20 Status: Ordered Nizoral 2% topical shampoo See Instructions, 1 applicator Topically 3x per week, # 120 mL, 10 Refills, Soft Stop, 05/13/20 11:05:00 EST, [facility] 3, 1 applicator Topically 3x per week, 158, cm, 05/10/20 11:36:00 EST, Height, 76, kg, 04/12/19 15:31:00 EST, Dry Weight Start Date: 05/13/20 Status: Ordered permethrin 5% topical cream 1 application, Topically, Once, to skin head to feet, remove by washing after 8 to 14 hours, # 60 Gm, 0 Refills, Soft Stop, 07/27/20 11:50:00 EDT, Cream, [facility], 1 applicationTopically Once,Instr:to skin head to feet, remove b... Start Date: 07/27/20 Status: Ordered predniSONE 10 mg oral tablet See Instructions, continue 2 tablets daily fror 10 days more, # 20 tablet, 0 Refills, Maintenance, 08/06/20 10:19:00 EDT, [facility], Partial fill upon patient request if the prescription is for a schedule II opioid drug., 158, cm, 07/23... Start Date: 08/06/20 Status: Ordered selenium sulfide 2.5% topical lotion See Instructions, APPLY TOPICALLY TO AFFECTED AREA EVERY DAY FOR 7 DAYS, # 120 mL, 3 Refills, Soft Stop, 07/23/20 11:40:00 EDT, [facility], 7, APPLY TOPICALLY TO AFFECTED AREA EVERY DAY FOR 7 DAYS, 158, cm, 07/23/20 11:13:00 EDT, H... Start Date: 07/23/20 Status: Ordered Shingrix intramuscular injection = 0.5 mL, Intramuscular, Once, repeat dose in 2 to 6 months, # 2 each, 0 Refills, Soft Stop, 05/27/20 11:03:00 EDT, Powder, [facility], Partial fill upon patient request if [...] 1 Refills, Maintenance, 03/10/20 18:21:00 EST, Cream, [facility] 3, Partial fill upon patient request if [...] 0 Refills, Maintenance, 07/23/20 11:37:00 EDT, Gel, [facility], 1 application Topically 4 times a [...]
--- OUTSIDE RECORDS SUMMARY | 2022-11-03 10:40 | XMS_ITS | Continuity of Care Document ---
Author Name Unknown Organization [facility] Address [address] [place] [address]- Care Team Providers Care Diabetologist Name Role Phone Ilya De Leon MD Primary Care Physician Encounter [facility] Date(s): 05/03/22 - 06/02/22 [facility]/[address] [address]- [place] Allergies, Adverse Reactions, Alerts Substance Reaction [...] 02/06/10 Garrett rded 1Admin Note: ADMIN BY [facility] 2Admin Note: FLUVIRIN MULTIDOSE ADMINISTERED AT [facility] Medications acetaminophen 650 mg oral tablet, extended release 2 tablet = 1,300 mg, By Mouth, Every 8 hours, # 100 tablet, 1 Refills, Maintenance, 06/29/21 15:10:00 EDT, ER Tablet, [id number], Partial fill upon patient request if the prescription is for a schedule II opioid drug., 155, cm, 05/30/21 15:34:... Start Date: 06/29/21 Status: Ordered capsaicin 0.025% topical cream See Instructions, APPLY TO AFFECTED AREA TWICE A DAY, # 60 Gm, 1 Refills, [id number], 30, APPLY TO AFFECTED AREA TWICE A DAY, 155, cm, 05/30/21 15:34:00 EDT, Height, 95.9, kg, 12/05/20 10:08:00 EDT, Dry Weight Start Date: 05/31/21 Status: Ordered Cavilon Emollient topical cream 1 application, Topically, 2 times a day, PRN for dry skin, # 454 Gm, 1 Refills, Maintenance, 09/30/19 16:26:00 EDT, Cream, [facility] 3, [...] 2 Refills, Maintenance, 05/24/22 10:44:00 EDT, Tablet, [facility], PROCESSOR GRAIN reviewed, covering for Dr. De Leon, 155, cm, 01/10... Start Date: 05/24/22 Stop Date: 06/14/22 Status: Ordered clonazePAM 0.5 mg oral tablet 1 tablet = 0.5 mg, By Mouth, Daily at bedtime, May fill 04/14/22 and weekly on Fridays for3 weeks, # 7 tablet, 2 Refills, Maintenance, 04/13/22 10:13:00 EST, Tablet, [facility], PMPreviewed, covering for Dr. De Leon, 155, cm, ... Start Date: 04/13/22 Stop Date: 05/04/22 Status: Ordered coal tar topical 1% lotion See Instructions, applyTopically Daily at bedtime, # 120 mL, 3 Refills, Maintenance, 10/26/21 15:45:00 EDT, [facility], Partial fill upon patient request if the prescription is for a schedule II opioid drug., applyTopically Daily a... Start Date: 10/26/21 Status: Ordered Dovonex 0.005% topical cream 1 applicator, Topically, 2 times a day, # 60 Gm, 5 Refills, Maintenance, 05/24/22 12:41:00 EDT, [facility], 1 applicator Topically 2 times a day,x30 days, 155, cm, 01/23/22 14:00:00 EST, Height, 106.5, kg, 09/14/21 9:38:00 EDT, Dry... Start Date: 05/24/22 Stop Date: 11/20/22 Status: Ordered Eucerin Unscented topical lotion See Instructions, apply as frequently as needed, # 1 each, 0 Refills, Maintenance, 09/28/21 12:23:00 EDT, [facility], Partial fill upon patient request if the prescription is for a schedule II opioid drug., apply as frequently as n... Start Date: 09/28/21 Status: Ordered fluticasone 50 mcg/inh nasal spray 1 sprays, Nares, Both, 2 times a day, in each nostril. for allergies, # 16 Gm, 0 Refills, Maintenance, 04/27/20 14:35:00 EST, [place], [facility] 3, Partial fill upon patient request if theprescription is for a schedule II opioid drug., 1... Start Date: 04/27/20 Stop Date: 05/27/20 Status: Ordered halobetasol 0.05% topical ointment See Instructions, APPLY A THIN FILM TO THE AFFECTED SKIN AND RUB IN GENTLY AND COMPLETELY TWICE A DAY, # 50 Gm, 1 Refills, Maintenance, 10/26/21 15:44:00 EDT, [facility], 30, APPLY A THIN FILM TO THE AFFECTED SKIN AND RUB IN GENTLY... Start Date: 10/26/21 Status: Ordered ketoconazole 2% topical shampoo See Instructions, APPLY 1 APPLICATOR TOPICALLY 3X PER WEEK, # 120 mL, 3 Refills, Maintenance, 05/16/22 8:48:00 EST, [id number], 30, APPLY 1 APPLICATOR TOPICALLY 3X PER WEEK, 155, cm, 01/23/22 14:00:00 EST, Height, 106.5, kg, 09/14/21 9:38:00 EDT,... Start Date: 05/16/22 Status: Ordered loratadine 10 mg oral tablet 1, tablet, By Mouth, Daily, # 90 tablet, Refills 1, Maintenance, 05/23/22 16:24:00 EDT, Route to Pharmacy Electronically, [id number], 155, cm, 01/23/22 14:00:00 EST, Height, 106.5, [...] 14 tablet, 2 Refills, 05/24/22 10:44:00 EDT, [facility], 155, cm, 01/23/22 14:00:00 EST, Height, 106.5, kg,09/14/21 9:38:00 EDT, Dry Weight Start Date: 05/24/22 Status: Ordered predniSONE 10 mg oral tablet See Instructions, May fill and weekly on Fridays for 3 weeks, # 14 tablet, 2 Refills, 04/13/22 10:13:00 EST, [facility], 155, cm, 01/23/22 14:00:00 EST, Height, 106.5, kg,09/14/21 9:38:00 EDT, Dry Weight Start Date: 04/13/22 Status: Ordered selenium sulfide 2.5% topical lotion See Instructions, APPLY TOPICALLY TO AFFECTED AREA EVERY DAY FOR 7 DAYS, # 120 mL, 3 Refills, Soft Stop, 10/26/21 15:43:00 EDT, [facility], 7, APPLY TOPICALLY TO AFFECTED AREA EVERY DAY FOR 7 DAYS, 155, cm, 09/28/21 12:06:00 EDT, H... Start Date: 10/26/21 Status: Ordered tiZANidine 2 mg oral tablet 1, tablet, By Mouth, 3 times a day, # 60 tablet, Refills 0, Route to Pharmacy Electronically, [id number], 155, cm, 05/03/21 14:39:00 EST, Height, 95.9, kg, 12/05/20 10:08:00 EDT, Dry Weight Start Date: 05/09/21 Status: Ordered traMADol 50 mg oral tablet 1 tablet = 50 mg, By Mouth, Every 8 hours, PRN Pain , Severe, for 7 days, May fill 05/26/22 and weekly on Fridays for 3 weeks, # 21 tablet, 2 Refills, Acute 06/14/22 10:43:00 EDT, 05/24/22 10:43:00 EDT, Tablet, [facility], Partial... Start Date: 05/24/22 Stop Date: [...] Care Physician Member Role: PCP Address: Address: [address] [place] [address]- Care Team Related Persons Name: JD ALVAREZ Address: [address] [place] [address]
--- OUTSIDE RECORDS SUMMARY | 2022-11-03 10:41 | XMS_ITS | Continuity of Care Document ---
Author Name Unknown Organization [facility] Address Unknown Care Team Providers Care Clinical Nurse Educator Name Role Phone Haley NEWMAN, Ilya Primary Care Physician Encounter [facility] Date(s): 03/07/21 - 04/06/21 [facility] Allergies, Adverse Reactions, Alerts Substance [...] A DAY, # 60 Gm, 0 Refills, [id number], 30, APPLY TO AFFECTED AREA TWICE A DAY, 155, cm, 03/17/21 7:53:00 EST, Height, 95.9, kg, 12/05/20 10:08:00 EDT, Dry Weight Start Date: 03/21/21 Status: Ordered Cavilon Emollient topical cream 1 application, Topically, 2 times a day, PRN for dry skin, # 454 Gm, 1 Refills, Maintenance, 09/30/19 16:26:00 EDT, [facility], [facility], 1 application Topically 2 times a day,PRN:for dry skin, 158, cm, 08/27/19 13:02:00 EDT, Height, 76, kg... Start Date: 09/30/19 Status: Ordered cetirizine 10 mg oral tablet 1 tablet = 10 mg, By Mouth, Daily, # 30 tablet, 0 Refills, Maintenance, 12/03/20 13:44:00 EDT, Tablet, [id number], Partial fill upon patient request if the prescription is for a schedule II opioid drug., 158, cm, 12/03/20 13:27:00 EDT, Height,... Start Date: 12/03/20 Status: Ordered Claritin 10 mg oral tablet 10 mg, 1, tablet, By Mouth, Daily, # 15 tablet, Refills 3, Tot. Refills 3, Maintenance, 11/06/18 8:33:38 EDT, Route to Pharmacy Electronically, [id number], [facility] Start Date: 11/06/18 Status: Ordered clindamycin 150 mg oral capsule See Instructions, 3 capsultes 3 times a day, # 45 capsule, 0 Refills, Acute 01/20/22 14:53:00 EST, 03/17/21 14:50:00 EST, Capsule, [facility], Partial fill upon patient request ifthe prescription is for a schedule II opioid drug.,... Start Date: 03/17/21 Stop Date: 01/20/22 Status: Ordered clonazePAM 0.5 mg oral tablet 1 tablet = 0.5 mg, By Mouth, Daily, DATA SECURITY ADMINISTRATOR checked Do not fill until 04/04/21, # 7 tablet, 0 Refills, Maintenance, 04/03/21 19:02:00 EST, Tablet, [facility][id number], Partial fill upon patient request if the prescription is for a schedule II opioid drug.,... Start Date: 04/03/21 Stop Date: 04/10/21 Status: Ordered diphenhydrAMINE 25 mg oral tablet 1 tablet = 25 mg, By Mouth, 3 times a day, PRN as needed for itching, Will cause drowsiness, # 30 tablet, 0 Refills, Maintenance, 07/16/20 15:11:00 EDT, Tablet, [facility], Partial fill upon patient request if the prescription is f... Start Date: 07/16/20 Status: Ordered Dovonex 0.005% topical cream 1 applicator, Topically, 2 times a day, # 60 Gm, 5 Refills, Maintenance, 07/07/19 17:30:00 EDT, [facility] 3, 1 applicator Topically 2 times a [...] Gm, 0 Refills, Maintenance, 04/27/20 14:35:00 EST, [place], [facility] 3, Partial fill upon patient request if theprescription is for a schedule II opioid drug., 1... Start Date: 04/27/20 Stop Date: 05/27/20 Status: Ordered furosemide 20 mg oral tablet 1, tablet, By Mouth, Daily, # 30 tablet, Refills 3, Tot. Refills 3, Maintenance, 01/20/21 12:45:00 EST, Route to Pharmacy Electronically, [facility][id number], 155, cm, 12/05/20 10:08:00 EDT, Height, 95.9, kg, 12/05/20 10:08:00 EDT, Dry Weight Start Date: 01/20/21 Status: Ordered halobetasol 0.05% topical ointment See Instructions, APPLY A THIN FILM TO THE AFFECTED SKIN AND RUB IN GENTLY AND COMPLETELY TWICE A DAY, # 50 Gm, 1 Refills, [id number], 30, APPLY A THIN FILM TO THE AFFECTED SKIN AND RUB IN GENTLY AND COMPLETELY TWICE A DAY, 155, cm, 12/05/20 10:0... Start Date: 03/15/21 Status: Ordered hydrocortisone 1% topical cream 1 application, Topically, 2 times a day, Apply to rash areas, # 60 Gm, 3 Refills, Maintenance, 06/04/19 14:52:00 EDT, Cream, [facility], 1 application Topically 2 times a day,Instr:Apply to rash areas, 158, cm, 12/24/18 10:25:00 EDT, [place]i... Start Date: 06/04/19 Status: Ordered ketoconazole 2% topical shampoo See Instructions, APPLY 1 APPLICATOR TOPICALLY 3X PER WEEK, # 120 mL, 3 Refills, [id number], 30, APPLY 1 APPLICATOR TOPICALLY 3X PER [...] a day,... Start Date: 03/08/21 Status: Ordered Quanah 0.65% nasal spray 2 sprays, Nares, Both, [...] Refills, Soft Stop, 07/27/20 11:50:00 EDT, Cream, [facility], 1 applicationTopically Once,Instr:to skin head to feet, remove b... Start Date: 07/27/20 Status: Ordered predniSONE 20 mg oral tablet See Instructions, 2 tablet By Mouth Dailyfor 3 days then 1 and 1/2 tablets daily for 4 days May fill 04/04/21, # 12 tablet, 0 Refills, Maintenance, 04/03/21 19:02:00 EST, Tablet[id number] Partial fill upon patient request if the prescriptio... Start Date: 04/03/21 Status: Ordered selenium sulfide 2.5% topical lotion See Instructions, APPLY TOPICALLY TO AFFECTED AREA EVERY DAY FOR 7 DAYS, # 120 mL, 3 Refills, Soft Stop, 03/08/21 10:26:00 EST, [facility]acy #[id number], 7, APPLY TOPICALLY TO AFFECTED AREA EVERY DAY FOR 7DAYS, 155, cm, 12/05/20 10:08:00 EDT, Height, 95.9,... Start Date: 03/08/21 Status: Ordered Shingrix intramuscular injection = 0.5 mL, Intramuscular, Once, repeat dose in 2 to 6 months, # 2 each, 0 Refills, Soft Stop, 05/27/20 11:03:00 EDT, Powder, [facility], Partial fill upon patient request if [...] 1 Refills, Maintenance, 03/10/20 18:21:00 EST, Cream, [facility], Partial fill upon patient request if the prescription is fora schedule II opioid drug., 1 application Topically... Start Date: 03/10/20 Status: Ordered Valium 5 mg oral tablet 5 mg, 1, tablet, By Mouth, Daily at bedtime, PRN, # 3 tablet, Refills 0, Tot. Refills 0, Maintenance, Spasm, 04/03/21 11:16:00 EST, Route to Pharmacy Electronically, [facility], Partialfill upon patient request if the prescription is fo... Start Date: 04/03/21 Status: Ordered Problem List Condition Effective Dates Status Health Status Inform ant Anxiety(Confirmed) Active Opioid type dependence, continuous(Confirmed) 1 Active Osteoarthritis of left knee(Confirmed) Active Psoriasis(Confirmed) Active Severe obesity(Confirmed) Active 1Client had been seen by Jazz Francois at [facility]. Client has no-showed to last appt and today.She will be targetted for closing if she does not responde to correspondence that will be sent on 02/14/13 Social History Social History Type Response Smoking Status 5-9 cigarettes (betw een 1/4 to 1/2 pack)/day in last 30 days entered on: 09/08/20 Sex
--- OUTSIDE RECORDS SUMMARY | 2022-11-03 10:41 | XMS_ITS | Continuity of Care Document ---
Author Name Unknown Organization [facility] Address [address] [place] [id number]- Care Team Providers Care Fullerette Name Role Phone Haley NEWMAN, Ilya Primary Care Physician Encounter [facility] Date(s): 06/14/20 - 07/14/20 [facility]/[address] [address]- Allergies, Adverse Reactions, Alerts Substance Reaction Severity [...] [facility] Medications Cavilon Emollient topical cream 1 application, Topically, 2 times a day, PRN for dry skin, # 454 Gm, 1 Refills, Maintenance, 09/30/19 16:26:00 EDT, Cream, [facility], 1 application Topically 2 times a day,PRN:for dry skin, 158, cm, 08/27/19 13:02:00 EDT, Height, 76, kg... Start Date: 09/30/19 Status: Ordered cetirizine 10 mg oral tablet 1 tablet = 10 mg, By Mouth, Daily, for allergies. Do NOT take with claritin, # 30 tablet, 0 Refills, Maintenance, 04/27/20 14:41:00 EST, Tablet, [facility], Partial fill upon patient request if the prescription is for a schedule II opioi... Start Date: 04/27/20 Stop Date: 05/27/20 Status: Ordered Claritin 10 mg oral tablet 10 mg, 1, tablet, By Mouth, Daily, # 15 tablet, Refills 3, Tot. Refills 3, Maintenance, 11/06/18 8:33:38 EDT, Route to Pharmacy Electronically, [id number], [facility] Start Date: 11/06/18 Status: Ordered Dovonex 0.005% topical cream 1 applicator, Topically, 2 times a day, # 60 Gm, 5 Refills, Maintenance, 07/07/19 17:30:00 EDT, [facility] 3, 1 applicator Topically 2 [...] Gm, 0 Refills, Maintenance, 04/27/20 14:35:00 EST, [place], [facility], Partial fill upon patient request if theprescription is for a schedule II opioid drug., 1... Start Date: 04/27/20 Stop Date: 05/27/20 Status: Ordered hydrocortisone 1% topical cream 1 application, Topically, 2 times a day, Apply to rash areas, # 60 Gm, 3 Refills, Maintenance, 06/04/19 14:52:00 EDT, Cream, [facility], 1 application Topically 2 [...] 0 Refills, Soft Stop, 07/07/20 13:01:00 EDT, [facility], 158, cm, 06/23/20 13:26:00 EDT... Start Date: 07/07/20 Status: Ordered Methadone By Mouth, 0 Refills, Maintenance Start Date: 12/25/11 Status: Ordered Nizoral 2% topical shampoo See Instructions, 1 applicator Topically 3x per week, # 120 mL, 10 Refills, Soft Stop, 05/13/20 11:05:00 EST, [facility], 1 applicator Topically 3x per week, 158, cm, 05/10/20 11:36:00 EST, Height, 76, kg, 04/12/19 15:31:00 EST, Dry Weight Start Date: 05/13/20 Status: Ordered oxyCODONE 5 mg oral tablet 5 mg, 1, tablet, By Mouth, Every 6 hours, PRN, # 4 tablet, Refills 0, Tot. Refills 0, Maintenance, Pain , Severe, 06/26/20 10:50:00 EDT, Route to Pharmacy Electronically, [facility] 3, Partial fill upon [...] tablet, 0 Refills, Maintenance, 07/13/20 11:13:00 EDT, [facility] 3, Partial fill upon patient request if the prescription is for a schedule II opioid drug., 158, cm, 06/23/20 13:26:00... Start Date: 07/13/20 Status: Ordered selenium sulfide 2.5% topical lotion See Instructions, APPLY TOPICALLY TO AFFECTED AREA EVERY DAY FOR 7 DAYS, # 120 mL, 3 Refills, Maintenance, [facility], 7, APPLY TOPICALLY TO AFFECTED AREA EVERY DAY FOR 7 DAYS, 158, cm, 06/23/20 13:26:00 EDT, Height, 91, kg, 07/01/20 13:48:00 E... Start Date: 07/13/20 Status: Ordered Shingrix intramuscular injection = 0.5 mL, Intramuscular, Once, repeat dose in 2 to 6 months, # 2 each, 0 Refills, Soft Stop, 05/27/20 11:03:00 EDT, Powder, [facility], Partial fill upon patient request [...] 1 Refills, Maintenance, 03/10/20 18:21:00 EST, Cream, [facility], Partial fill upon patient [...] 0 Refills, Maintenance, 04/06/19 20:19:00 EST, Tablet, [facility], 158, cm, 12/24/18 10:25:00 [...]
--- OUTSIDE RECORDS SUMMARY | 2022-11-03 10:41 | XMS_ITS | Continuity of Care Document ---
Author Name Unknown Organization [facility] Address Unknown Care Team Providers Care Hotel Front Office Manager Name Role Phone Haley NEWMAN, Ilya Primary Care Physician En[place] [facility] [place] Date(s): 05/09/21 - 06/09/21 [facility] Attending Physician: Cristal Kc Admitting Physician: Cristal Kc Allergies, Adverse Reactions, Alerts Substance Reaction Severity [...] A DAY, # 60 Gm, 1 Refills, [id number], 30, APPLY TO AFFECTED AREA TWICE A DAY, 155, cm, 05/30/21 15:34:00 EDT, Height, 95.9, kg, 12/05/20 10:08:00 EDT, Dry Weight Start Date: 05/31/21 Status: Ordered Cavilon Emollient topical cream 1 application, Topically, 2 times a day, PRN for dry skin, # 454 Gm, 1 Refills, Maintenance, 09/30/19 16:26:00 EDT, Cream, [facility], 1 application Topically 2 times a day,PRN:for dry skin, 158, cm, 08/27/19 13:02:00 EDT, Height, 76, kg... Start Date: 09/30/19 Status: Ordered Claritin 10 mg oral tablet 10 mg, 1, tablet, By Mouth, Daily, # 15 tablet, Refills 3, Tot. Refills 3, Maintenance, 05/03/21 15:42:00 EST, Route to Pharmacy Electronically, [facility]/pharmacy #[id number], 155, cm, 05/03/21 14:39:00 EST, Height, 95.9, kg, 12/05/20 10:08:00 EDT, Dry Weight Start Date: 05/03/21 Status: Ordered clonazePAM 0.5 mg oral tablet 1 tablet = 0.5 mg, By Mouth, Daily, # 14 tablet, 0 Refills, Maintenance, 05/30/21 12:57:00 EDT, Tablet, [facility]/pharmacy #[id number], POLICE CHIEF reviewed, covering for Dr. De Leon, 155, cm, 05/03/21 14:39:00 EST, Height, 95.9, kg, 12/05/20 10:08:00 EDT, Dry Weight Start Date: 05/30/21 Stop Date: 06/13/21 Status: Ordered Dovonex 0.005% topical cream 1 applicator, Topically, 2 times a day, # 60 Gm, 5 Refills, Maintenance, 07/07/19 17:30:00 EDT, [facility], 1 applicator Topically 2 times a day,x30 days, 158, cm, 12/24/18 10:25:00 EDT, Height, 76, kg, 04/12/19 15:31:00 EST, Dry Weight Start Date: 07/07/19 Stop Date: 01/03/20 Status: Ordered fluticasone 50 mcg/inh nasal spray 1 sprays, Nares, Both, 2 times a day, in each nostril. for allergies, # 16 Gm, 0 Refills, Maintenance, 04/27/20 14:35:00 EST, [place], [facility], Partial fill upon patient request if theprescription is for a schedule II opioid drug., 1... Start Date: 04/27/20 Stop Date: 05/27/20 Status: Ordered furosemide 20 mg oral tablet 1, tablet, By Mouth, Daily, # 30 tablet, Refills 3, Tot. Refills 3, Maintenance, 04/18/21 12:11:00 EST, Route to Pharmacy Electronically, [facility]/pharmacy #[id number], 155, cm, 04/18/21 10:12:00 EST, Height, 95.9, kg, 12/05/20 10:08:00 EDT, Dry Weight Start Date: 04/18/21 Status: Ordered halobetasol 0.05% topical ointment See Instructions, APPLY A THIN FILM TO THE AFFECTED SKIN AND RUB IN GENTLY AND COMPLETELY TWICE A DAY, # 50 Gm, 1 Refills, [facility]ORE [id number], 30, APPLY A THIN FILM TO THE AFFECTED SKIN AND RUB IN GENTLY AND COMPLETELY TWICE A DAY, 155, cm, 12/05/20 10:0... Start Date: 03/15/21 Status: Ordered ketoconazole 2% topical shampoo See Instructions, APPLY 1 APPLICATOR TOPICALLY 3X PER WEEK, # 120 mL, 3 Refills, [id number], 30, APPLY 1 APPLICATOR TOPICALLY 3X PER WEEK, 155, cm, 03/17/21 7:53:00 EST, Height, 95.9, kg, 12/05/20 10:08:00 EDT, Dry Weight Start Date: 03/21/21 Status: Ordered Methadone By Mouth, 0 Refills, Maintenance Start Date: 12/25/11 Status: Ordered mupirocin 2% topical cream 1 application, Topically, 3 times a day, # 30 Gm, 2 Refills, Maintenance, 03/08/21 10:26:00 EST, Cream, [facility]/pharmacy #[id number], Partial fill upon patient request if the prescription is for a schedule II opioid drug., 1 application Topically 3 times a day,... Start Date: 03/08/21 Status: Ordered permethrin 5% topical cream 1 application, Topically, Once, to skin head to feet, remove by washing after 8 to 14 hours, # 60 Gm, 0 Refills, Soft Stop, 07/27/20 11:50:00 EDT, Cream, [facility], 1 applicationTopically Once,Instr:to skin head to feet, remove b... Start Date: 07/27/20 Status: Ordered predniSONE 10 mg oral tablet 1 tablet, By Mouth, Daily, please fill early, may fill 06/03, # 14 tablet, 0 Refills, 05/31/21 8:50:00 EDT, [facility]/pharmacy #[id number], 155, cm, 05/30/21 15:34:00 EDT, Height, 95.9, kg, 12/05/20 10:08:00 EDT,Dry Weight Start Date: 05/31/21 Status: Ordered selenium sulfide 2.5% topical lotion See Instructions, APPLY TOPICALLY TO AFFECTED AREA EVERY DAY FOR 7 DAYS, # 120 mL, 3 Refills, Soft Stop, 04/26/21 18:07:00 EST, [facility]/pharmacy #[id number], 7, APPLY TOPICALLY TO AFFECTED AREA EVERY DAY FOR 7DAYS, 155, cm, 04/18/21 10:12:00 EST, Height, 95.9,... Start Date: 04/26/21 Status: Ordered tiZANidine 2 mg oral tablet 1, tablet, By Mouth, 3 times a day, # 60 tablet, Refills 0, Route to Pharmacy Electronically, [facility] STORE [id number], 155, cm, 05/03/21 14:39:00 EST, Height, 95.9, kg, 12/05/20 10:08:00 EDT, Dry Weight Start Date: 05/09/21 Status: Ordered Problem List Condition Effective Dates Status Health Status Inform ant Anxiety(Confirmed) Active Opioid type dependence, continuous(Confirmed) 1 Active Osteoarthritis of left knee(Confirmed) Active Psoriasis(Confirmed) Active Severe obesity(Confirmed) Active 1Client had been seen by Jazz Francois at [facility]. Client has no-showed to last appt and today.She will be targetted for closing if she does not responde to correspondence that will be sent on 02/14/13 Social History Social History Type Response Smoking Status 10 or more cigarette s (1/2 pack or more)/day in last 30 days entered on: 04/18/21 Sex
--- OUTSIDE RECORDS SUMMARY | 2022-11-03 10:41 | XMS_ITS | Continuity of Care Document ---
Author Name Unknown Organization [facility] Address [address] [place] [id number]- Care Team Providers Care Brick Carrier Name Role Phone Ilya De Leon MD Primary Care Physician En[place] [facility] [place] [id number] Date(s): 11/03/21 - 12/21/21 [facility] [address]- Attending Physician: Ilya De Leon MD Admitting [...] Maintenance, 06/29/21 15:10:00 EDT, ER Tablet, [id number], Partial fill upon patient request if the prescription is for a schedule II opioid drug., 155, cm, 05/30/21 15:34:... Start Date: 06/29/21 Status: Ordered capsaicin 0.025% topical cream See Instructions, APPLY TO AFFECTED AREA TWICE A DAY, # 60 Gm, 1 Refills, [facility] [id number], 30, APPLY TO AFFECTED AREA TWICE A DAY, 155, cm, 05/30/21 15:34:00 EDT, Height, 95.9, kg, 12/05/20 10:08:00 EDT, Dry Weight Start Date: 05/31/21 Status: Ordered Cavilon Emollient topical cream 1 application, Topically, 2 times a day, PRN for dry skin, # 454 Gm, 1 Refills, Maintenance, 09/30/19 16:26:00 EDT, Cream, [facility], 1 application Topically 2 times a day,PRN:for dry skin, 158, cm, 08/27/19 13:02:00 EDT, Height, 76, kg... Start Date: 09/30/19 Status: Ordered clonazePAM 0.5 mg oral tablet 1 tablet = 0.5 mg, By Mouth, Daily at bedtime, May fill 12/09/21 and weekly on Fridays for3 weeks, #7 tablet, 2 Refills, Maintenance, 12/06/21 10:38:00 EDT, Tablet, [facility], CHEMICAL MAKER reviewed, covering for Dr. De Leon, 155, cm, 09/28... Start Date: 12/06/21 Stop Date: 12/27/21 Status: Ordered coal tar topical 1% lotion See Instructions, applyTopically Daily at bedtime, # 120 mL, 3 Refills, Maintenance, 10/26/21 15:45:00 EDT, [facility], Partial fill upon patient request if the prescription is for a schedule II opioid drug., applyTopically Daily a... Start Date: 10/26/21 Status: Ordered Dovonex 0.005% topical cream 1 applicator, Topically, 2 times a day, # 60 Gm, 5 Refills, Maintenance, 07/07/19 17:30:00 EDT, [facility], 1 applicator Topically 2 times a day,x30 days, 158, cm, 12/24/18 10:25:00 EDT, Height, 76, kg, 04/12/19 15:31:00 EST, Dry Weight Start Date: 07/07/19 Stop Date: 01/03/20 Status: Ordered Eucerin Unscented topical lotion See Instructions, apply as frequently as needed, # 1 each, 0 Refills, Maintenance, 09/28/21 12:23:00 EDT, [facility], Partial fill upon patient request if the prescription is for a schedule II opioid drug., apply as frequently as n... Start Date: 09/28/21 Status: Ordered fluticasone 50 mcg/inh nasal spray 1 sprays, Nares, Both, 2 times a day, in each nostril. for allergies, # 16 Gm, 0 Refills, Maintenance, 04/27/20 14:35:00 EST, [place], [facility] 3, Partial fill upon patient request if theprescription is for a schedule II opioid drug., 1... Start Date: 04/27/20 Stop Date: 05/27/20 Status: Ordered halobetasol 0.05% topical ointment See Instructions, APPLY A THIN FILM TO THE AFFECTED SKIN AND RUB IN GENTLY AND COMPLETELY TWICE A DAY, # 50 Gm, 1 Refills, Maintenance, 10/26/21 15:44:00 EDT, [facility], 30, APPLY A THIN FILM TO THE AFFECTED SKIN AND RUB IN GENTLY... Start Date: 10/26/21 Status: Ordered hydrocortisone 1% topical cream 1 application, Topically, 2 times a day, # 30 Gm, 0 Refills, Maintenance, 06/17/21 11:42:00 EDT, Cream, [facility] 3, Partial fill upon patient request if the prescription is for a schedule II opioid drug., 1 application Topically 2 times... Start Date: 06/17/21 Status: Ordered ketoconazole 2% topical shampoo See Instructions, APPLY 1 APPLICATOR TOPICALLY 3X PER WEEK, # 120 mL, 3 Refills, [facility] [id number], 30, APPLY 1 APPLICATOR TOPICALLY 3X PER WEEK, 155, cm, 05/30/21 15:34:00 EDT, Height, 95.9, kg, 12/05/20 10:08:00 EDT, Dry Weight Start Date: 08/02/21 Status: Ordered loratadine 10 mg oral tablet 1, tablet, By Mouth, Daily, # 90 tablet, Refills 1, Tot. Refills 1, Maintenance, 11/01/21 15:19:00 EDT, [id number], 155, cm, 09/28/21 12:06:00 EDT, Height, [...] Soft Stop, 07/27/20 11:50:00 EDT, Cream, [facility], 1 applicationTopically Once,Instr:to skin head to feet, remove b... Start Date: 07/27/20 Status: Ordered predniSONE 10 mg oral tablet See Instructions, May fill 12/09/21 and weekly on Fridays for 3 weeks, # 14 tablet, 2 Refills, 12/06/21 10:38:00 EDT, [facility], 155, cm, 09/28/21 12:06:00 EDT, Height, 106.5, kg,09/14/21 9:38:00 EDT, Dry Weight Start Date: 12/06/21 Status: Ordered selenium sulfide 2.5% topical lotion See Instructions, APPLY TOPICALLY TO AFFECTED AREA EVERY DAY FOR 7 DAYS, # 120 mL, 3 Refills, Soft Stop, 10/26/21 15:43:00 EDT, [facility], 7, APPLY TOPICALLY TO AFFECTED AREA EVERY DAY FOR 7 DAYS, 155, cm, 09/28/21 12:06:00 EDT, H... Start Date: 10/26/21 Status: Ordered tiZANidine 2 mg oral tablet 1, tablet, By Mouth, 3 times a day, # 60 tablet, Refills 0, Route to Pharmacy Electronically, [id number], 155, cm, 05/03/21 14:39:00 EST, Height, 95.9, kg, 12/05/20 10:08:00 EDT, Dry Weight Start Date: 05/09/21 Status: Ordered traMADol 50 mg oral tablet 1 tablet = 50 mg, By Mouth, Every 8 hours, PRN Pain , Severe, for 7 days, May fill 12/09/21 and weekly on Fridays for3 weeks, # 21 tablet, 2 Refills, Acute 12/27/21 10:38:00 EDT, 12/06/21 10:38:00 EDT, Tablet, [facility], Partial fi... Start Date: 12/06/21 Stop Date: [...] Name: Ilya De Leon MD Address: Address: [address] [place] [id number]
--- OUTSIDE RECORDS SUMMARY | 2022-11-03 10:41 | XMS_ITS | Continuity of Care Document ---
Author Name Unknown Organization [facility] Address [address] [place] [address]- Care Team Providers Care Director New Product Name Role Phone Ilya De Leon MD Primary Care Physician Encounter [facility] [place] ACCT R [id number] Date(s): 06/27/19 - 07/07/19 [facility]/[address] [address]- [facility] Attending Physician: Admtr, ArLiliana Allergies, Adverse Reactions, Alerts Substance Reaction Severity Status penicillin Rash Active aspirin Ibuprofen tight throat Rash Active morphine HAND SWELLING Active Toradol Rash Active Motrin tight throat Rash Active Imitrex Chest pain Active Reglan Agitated Active trimethoprim-sulfamethoxazole DS 1 Throa t Hives 17-MAY-2013 07:29:57<$> Unknown Active dehydroepiandrosterone 2 Chest pain Act julienne Compazine throat swells Active 1By phone, reported hives and throat [...] 0 Refills, Maintenance, 07/07/19 17:30:00 EDT, Cream, [facility], 1 application Topically 2 times a day,PRN:for dry skin, 158, cm, 12/24/18 10:25:00 EDT, Height, 76, kg... Start Date: 07/07/19 Status: Ordered Claritin 10 mg oral tablet 10 mg, 1, tablet, By Mouth, Daily, # 15 tablet, Refills 3, Tot. Refills 3, Maintenance, 11/06/18 8:33:38 EDT, Route to Pharmacy Electronically, [id number], [facility] Start Date: 11/06/18 Status: Ordered Dovonex 0.005% topical cream 1 applicator, Topically, 2 times a day, # 60 Gm, 5 Refills, Maintenance, 07/07/19 17:30:00 EDT, [facility], 1 applicator Topically [...] Refills, Maintenance, 06/04/19 14:52:00 EDT, Cream, [facility], 1 application Topically [...] 0 Refills, Soft Stop, 06/22/19 9:32:00 EDT, [facility], 158, cm, 12/24/18 10:25:00 EDT,... Start Date: 06/22/19 Status: Ordered Medrol Dosepak 4 mg oral tablet per label intructions, By Mouth, Once, as on label, # 1 each, 0 Refills, Soft Stop, 06/27/19 15:04:00 EDT, [facility], 158, cm, 12/24/18 [...] # 120 mL, 3 Refills, Maintenance, [facility], 7, APPLY TOPICALLY TO AFFECTED AREA EVERY DAY FOR 7 DAYS, 158, cm, 12/24/18 10:25:00 EDT, Height, 76, kg, 02/01/20 15:31:00 E... Start Date: 06/17/19 Status: Ordered [...] 04/06/19 20:19:00 EST, Tablet, [facility], 158, cm, 12/24/18 10:25:00 EDT, Height, 75.5, kg, 04/06/19 17:01:00 EST, Dry Weight Start Date: 04/06/19 Stop Date: 04/13/19 Status: Ordered Problem List Condition Effective Dates Status Health Status Inform ant Opioid type dependence, continuous(Confirmed) 1 Active 1Client had been seen by Jazz Francois at [facility]. Client has no-showed to last appt and today.She will be targetted for closing if she does not responde to correspondence that will be sent on 02/14/13 Social History Social History Type Response Smoking Status 10 or more cigarette s (1/2 pack or more)/day in last 30 days entered on: 01/24/18 Sex
--- OUTSIDE RECORDS SUMMARY | 2022-11-03 10:41 | XMS_ITS | Continuity of Care Document ---
Author Name Unknown Organization [facility] Address Unknown Care Team Providers Care Digital Media Representative Name Role Phone Ilya De Leon MD Primary Care Physician [place] [facility] [place](s): 12/02/20 - 01/02/21 [facility] Encounter Diagnosis Ear pain(Discharge Diagnosis) - 12/03/20 Osteoarthritis of left knee(Discharge Diagnosis) - 12/03/20 Attending Physician: Biju Lim MD Admitting Physician: [...] 12/03/20 13:44:00 EDT, [id number] Partial fill upon patient request if the prescription is for a schedule II opioid drug., 158, cm, 12/03/20 13:27:00 EDT, Height,... Start Date: 12/03/20 Status: Ordered Claritin 10 mg oral tablet 10 mg, 1, tablet, By Mouth, Daily, # 15 tablet, Refills 3, Tot. Refills 3, Maintenance, 11/06/18 8:33:38 EDT, Route to Pharmacy Electronically, [id number], [facility] Start Date: 11/06/18 Status: Ordered clonazePAM 0.5 mg oral tablet 1 tablet = 0.5 mg, By Mouth, Daily, RECYCLING TECH checked, # 28 tablet, 0 Refills, Maintenance, [...] 0 Refills, Maintenance, 07/16/20 15:11:00 EDT, Tablet, [facility], Partial fill upon patient request if the prescription is f... Start Date: 07/16/20 Status: Ordered Dovonex 0.005% topical cream 1 applicator, Topically, 2 times a day, # 60 Gm, 5 Refills, Maintenance, 07/07/19 17:30:00 EDT, [facility] 3, 1 applicator Topically 2 times [...] Gm, 0 Refills, Maintenance, 04/27/20 14:35:00 EST, [place], [facility], Partial fill upon patient request if theprescription is for a schedule II opioid drug., 1... Start Date: 04/27/20 Stop Date: 05/27/20 Status: Ordered furosemide 20 mg oral tablet 1, tablet, By Mouth, Daily, # 30 tablet, Refills 3, Tot. Refills 0, Maintenance, 10/21/20 11:22:00 EDT, Route to Pharmacy Electronically, [id number], 158, cm, 10/18/20 10:46:00 EDT, Height, 95.4, kg, 10/16/20 10:11:00 EDT, Dry Weight Start Date: 10/21/20 Status: Ordered halobetasol 0.05% topical ointment See Instructions, APPLY A THIN FILM TO THE AFFECTED SKIN AND RUB IN GENTLY AND COMPLETELY TWICE A DAY, # 50 Gm, 1 Refills, [facility] 0[facility], 30, APPLY A THIN FILM TO THE AFFECTED SKIN AND RUB IN GENTLY AND COMPLETELY TWICE A DAY, 158, cm, 10/18/20 10:4... Start Date: 12/02/20 Status: Ordered hydrocortisone 1% topical cream 1 application, Topically, 2 times a day, Apply to rash areas, # 60 Gm, 3 Refills, Maintenance, 06/04/19 14:52:00 EDT, Cream, [facility], 1 application Topically 2 times a day,Instr:Apply to rash areas, 158, cm, 12/24/18 10:25:00 EDT, Hei... Start Date: 06/04/19 Status: Ordered ketoconazole 2% topical shampoo See Instructions, APPLY 1 APPLICATOR TOPICALLY 3X PER WEEK, # 120 mL, 3 Refills, [facility] [id number], 30, APPLY 1 APPLICATOR TOPICALLY 3X PER [...] a day,... Start Date: 12/17/20 Status: Ordered [place] 0.65% nasal spray 2 sprays, Nares, Both, [...] Refills, Soft Stop, 07/27/20 11:50:00 EDT, Cream, [facility], 1 applicationTopically Once,Instr:to skin head to [...] 3 Refills, Soft Stop, 07/23/20 11:40:00 EDT, [facility], 7, APPLY TOPICALLY TO AFFECTED AREA EVERY DAY FOR 7 DAYS, 158, cm, 07/23/20 11:13:00 EDT, H... Start Date: 07/23/20 Status: Ordered Shingrix intramuscular injection = 0.5 mL, Intramuscular, Once, repeat dose in 2 to 6 months, # 2 each, 0 Refills, Soft Stop, 05/27/20 11:03:00 EDT, Powder, [facility], Partial fill upon patient request if [...] 1 Refills, Maintenance, 03/10/20 18:21:00 EST, Cream, [facility] 3, Partial fill upon patient request [...] Effective Dates Health Status Clinical Service Informant Osteoarthritis of left knee Discharge Diagnosis 12/03/20 Ear pain Discharge Diagnosis 12/03/20 Social History Social History Type Response Smoking Status 5-9 cigarettes (betw een 1/4 to 1/2 pack)/day in last 30 days entered on: 09/08/20 Sex
--- OUTSIDE RECORDS SUMMARY | 2022-11-03 10:41 | XMS_ITS | Continuity of Care Document ---
Author Name Unknown Organization [facility] Address Unknown Care Team Providers Care Clinical Operations Consultant Name Role Phone Haley NEWMAN, Ilya Primary Care Physician Encounter [facility] Date(s): 03/08/21 - 04/07/21 [facility] Allergies, Adverse Reactions, Alerts Substance Reaction Severity Status penicillin Rash Active aspirin Ibuprofen tight throat Rash Active morphine HAND SWELLING Active Toradol Rash Active Motrin tight throat Rash Active Imitrex Chest pain Active Compazine throat swells Active Reglan Agitated Active trimethoprim-sulfamethoxazole DS 1 Throa t Hives 17-MAY-2013 07:29:57<$> Unknown Active dehydroepiandrosterone 2 Chest pain Act julinene 1By phone, reported hives and throat locking [...] A DAY, # 60 Gm, 0 Refills, [id number], 30, APPLY TO AFFECTED AREA TWICE A DAY, 155, cm, 03/17/21 7:53:00 EST, Height, 95.9, kg, 12/05/20 10:08:00 EDT, Dry Weight Start Date: 03/21/21 Status: Ordered Cavilon Emollient topical cream 1 application, Topically, 2 times a day, PRN for dry skin, # 454 Gm, 1 Refills, Maintenance, 09/30/19 16:26:00 EDT, Cream, [facility] 3, 1 application Topically 2 times a day,PRN:for dry skin, 158, cm, 08/27/19 13:02:00 EDT, Height, 76, kg... Start Date: 09/30/19 Status: Ordered cetirizine 10 mg oral tablet 1 tablet = 10 mg, By Mouth, Daily, # 30 tablet, 0 Refills, Maintenance, 12/03/20 13:44:00 EDT, Tablet, [facility]/pharmacy #[id number], Partial fill upon patient request if the prescription is for a schedule II opioid drug., 158, cm, 12/03/20 13:27:00 EDT, Height,... Start Date: 12/03/20 Status: Ordered Claritin 10 mg oral tablet 10 mg, 1, tablet, By Mouth, Daily, # 15 tablet, Refills 3, Tot. Refills 3, Maintenance, 11/06/18 8:33:38 EDT, Route to Pharmacy Electronically, [id number], [facility] Start Date: 11/06/18 Status: Ordered clindamycin 150 mg oral capsule See Instructions, 3 capsultes 3 times a day, # 45 capsule, 0 Refills, Acute 01/20/22 14:53:00 EST, 03/17/21 14:50:00 EST, Capsule, [facility], Partial fill upon patient request ifthe prescription is for a schedule II opioid drug.,... Start Date: 03/17/21 Stop Date: 01/20/22 Status: Ordered clonazePAM 0.5 mg oral tablet 1 tablet = 0.5 mg, By Mouth, Daily, CAREER PLACEMENT SPECIALIST checked Do not fill until 04/04/21, # 7 tablet, 0 Refills, Maintenance, 04/03/21 19:02:00 EST, Tablet, [facility]/pharmacy #[id number], Partial fill upon patient request if the prescription is for a schedule II opioid drug.,... Start Date: 04/03/21 Stop Date: 04/10/21 Status: Ordered diphenhydrAMINE 25 mg oral tablet 1 tablet = 25 mg, By Mouth, 3 times a day, PRN as needed for itching, Will cause drowsiness, # 30 tablet, 0 Refills, Maintenance, 07/16/20 15:11:00 EDT, Tablet, [facility], Partial fill upon patient request if the prescription is f... Start Date: 07/16/20 Status: Ordered Dovonex 0.005% topical cream 1 applicator, Topically, 2 times a day, # 60 Gm, 5 Refills, Maintenance, 07/07/19 17:30:00 EDT, [facility] 3, 1 applicator Topically 2 [...] Gm, 0 Refills, Maintenance, 04/27/20 14:35:00 EST, [place], [facility] 3, Partial fill upon patient request if theprescription is for a schedule II opioid drug., 1... Start Date: 04/27/20 Stop Date: 05/27/20 Status: Ordered furosemide 20 mg oral tablet 1, tablet, By Mouth, Daily, # 30 tablet, Refills 3, Tot. Refills 3, Maintenance, 01/20/21 12:45:00 EST, Route to Pharmacy Electronically, [facility]/pharmacy #[id number], 155, cm, 12/05/20 10:08:00 EDT, Height, 95.9, kg, 12/05/20 10:08:00 EDT, Dry Weight Start Date: 01/20/21 Status: Ordered halobetasol 0.05% topical ointment See Instructions, APPLY A THIN FILM TO THE AFFECTED SKIN AND RUB IN GENTLY AND COMPLETELY TWICE A DAY, # 50 Gm, 1 Refills, [id number], 30, APPLY A THIN FILM TO THE AFFECTED SKIN AND RUB IN GENTLY AND COMPLETELY TWICE A DAY, 155, cm, 12/05/20 10:0... Start Date: 03/15/21 Status: Ordered hydrocortisone 1% topical cream 1 application, Topically, 2 times a day, Apply to rash areas, # 60 Gm, 3 Refills, Maintenance, 06/04/19 14:52:00 EDT, Cream, [facility], 1 application Topically 2 times a day,Instr:Apply to rash areas, 158, cm, 12/24/18 10:25:00 EDT, Hei... Start Date: 06/04/19 Status: Ordered ketoconazole 2% topical shampoo See Instructions, APPLY 1 APPLICATOR TOPICALLY 3X PER WEEK, # 120 mL, 3 Refills, [id number], 30, APPLY 1 APPLICATOR TOPICALLY 3X PER [...] a day,... Start Date: 03/08/21 Status: Ordered [place] 0.65% nasal spray 2 sprays, Nares, Both, [...] Refills, Soft Stop, 07/27/20 11:50:00 EDT, Cream, [facility], 1 applicationTopically Once,Instr:to skin head to feet, remove b... Start Date: 07/27/20 Status: Ordered predniSONE 20 mg oral tablet See Instructions, 2 tablet By Mouth Dailyfor 3 days then 1 and 1/2 tablets daily for 4 days May fill 04/04/21, # 12 tablet, 0 Refills, Maintenance, 04/03/21 19:02:00 EST, [id number] upon patient request if the prescriptio... Start Date: 04/03/21 Status: Ordered selenium sulfide 2.5% topical lotion See Instructions, APPLY TOPICALLY TO AFFECTED AREA EVERY DAY FOR 7 DAYS, # 120 mL, 3 Refills, Soft Stop, 03/08/21 10:26:00 EST, [facility]/pharmacy #[id number], 7, APPLY TOPICALLY TO AFFECTED AREA EVERY DAY FOR 7DAYS, 155, cm, 12/05/20 10:08:00 EDT, Height, 95.9,... Start Date: 03/08/21 Status: Ordered Shingrix intramuscular injection = 0.5 mL, Intramuscular, Once, repeat dose in 2 to 6 months, # 2 each, 0 Refills, Soft Stop, 05/27/20 11:03:00 EDT, Powder, [facility], Partial fill upon patient request if [...] 18:21:00 EST, Cream, [facility], Partial fill upon patient request if the prescription is fora schedule II opioid drug., 1 application Topically... Start Date: 03/10/20 Status: Ordered Valium 5 mg oral tablet 5 mg, 1, tablet, By Mouth, Daily at bedtime, PRN, # 3 tablet, Refills 0, Tot. Refills 0, Maintenance, Spasm, 04/03/21 11:16:00 EST, Route to Pharmacy Electronically, [facility], Partialfill upon patient request if the prescription is fo... Start Date: 04/03/21 Status: Ordered Problem List Condition Effective Dates Status Health Status Inform ant Anxiety(Confirmed) Active Opioid type dependence, continuous(Confirmed) 1 Active Osteoarthritis of left knee(Confirmed) Active Psoriasis(Confirmed) Active Severe obesity(Confirmed) Active 1Client had been seen by Jazz Francois at [facility]. Client has no-showed to last appt and today.She will be targetted for closing if she does not responde to correspondence that will be sent on 02/14/13 Social History Social History Type Response Smoking Status 5-9 cigarettes (betw een 1/4 to 1/2 pack)/day in last 30 days entered on: 09/08/20 Sex
--- OUTSIDE RECORDS SUMMARY | 2022-11-03 10:41 | XMS_ITS | Continuity of Care Document ---
Author Name Unknown Organization [facility] Address Unknown Care Team Providers Care Central Stores Attendant Name Role Phone Ilya De Leon MD Primary Care Physician Encounter [facility] Date(s): 01/13/21 - 02/12/21 [facility] Allergies, Adverse Reactions, Alerts Substance Reaction Severity [...] 0 Refills, Maintenance, 12/03/20 13:44:00 EDT, [id number] fill upon patient request if the prescription is for a schedule II opioid drug., 158, cm, 12/03/20 13:27:00 EDT, Height,... Start Date: 12/03/20 Status: Ordered Claritin 10 mg oral tablet 10 mg, 1, tablet, By Mouth, Daily, # 15 tablet, Refills 3, Tot. Refills 3, Maintenance, 11/06/18 8:33:38 EDT, Route to Pharmacy Electronically, [id number], [facility] Start Date: 11/06/18 Status: Ordered clonazePAM 0.5 mg oral tablet 1 tablet = 0.5 mg, By Mouth, Daily, AMERICAN HISTORY PROFESSOR checked Fill 01/21/21 for 28 days, # 28 tablet, 0 Refills, Maintenance, 01/20/21 12:45:00 EST, [id number] fill upon patient request ifthe prescription is for a schedule II opioid drug.... Start Date: 01/20/21 Stop Date: 02/17/21 Status: Ordered diphenhydrAMINE 25 mg oral tablet 1 tablet = 25 mg, By Mouth, 3 times a day, PRN as needed for itching, Will cause drowsiness, # 30 tablet, 0 Refills, Maintenance, 07/16/20 15:11:00 EDT, Tablet, [facility], Partial fill upon patient request if the prescription is f... Start Date: 07/16/20 Status: Ordered Dovonex 0.005% topical cream 1 applicator, Topically, 2 times a day, # 60 Gm, 5 Refills, Maintenance, 07/07/19 17:30:00 EDT, [facility] 3, 1 applicator Topically 2 [...] Gm, 0 Refills, Maintenance, 04/27/20 14:35:00 EST, [place], [facility], Partial fill upon patient request if theprescription is for a schedule II opioid drug., 1... Start Date: 04/27/20 Stop Date: 05/27/20 Status: Ordered furosemide 20 mg oral tablet 1, tablet, By Mouth, Daily, # 30 tablet, Refills 3, Tot. Refills 3, Maintenance, 01/20/21 12:45:00 EST, Route to Pharmacy Electronically, [facility]/pharmacy #[id number], 155, cm, 12/05/20 10:08:00 EDT, Height, 95.9, kg, 12/05/20 10:08:00 EDT, Dry Weight Start Date: 01/20/21 Status: Ordered halobetasol 0.05% topical ointment See Instructions, APPLY A THIN FILM TO THE AFFECTED SKIN AND RUB IN GENTLY AND COMPLETELY TWICE A DAY, # 50 Gm, 1 Refills, [facility], 30, APPLY A THIN FILM TO THE [...] PER WEEK, # 120 mL, 3 Refills, [facility] [address], 30, APPLY 1 APPLICATOR TOPICALLY 3X PER [...] 2 Refills, Maintenance, 12/17/20 15:28:00 EDT, Cream, [facility]/pharmacy #[id number], Partial fill upon patient request if the prescription is for a schedule II opioid drug., 1 application Topically 3 times a day,... Start Date: 12/17/20 Status: Ordered [place] 0.65% nasal spray 2 sprays, Nares, Both, 4 times a day, # 1 each, 0 Refills, Maintenance, 12/03/20 13:46:00 EDT, [facility]/pharmacy #[id number], Partial [...] Refills, Soft Stop, 07/27/20 11:50:00 EDT, Cream, [facility], 1 applicationTopically Once,Instr:to skin head to feet, remove b... Start Date: 07/27/20 Status: Ordered predniSONE 5 mg oral tablet 1 tablet, By Mouth, 3 times a day, for 14 days, # 42 tablet, 0 Refills, Physician Stop, [id number], 155, cm, 12/05/20 10:08:00 EDT, Height, 95.9, kg, 12/05/20 10:08:00 EDT, Dry Weight Start Date: 02/12/21 Stop Date: 02/26/21 Status: Ordered selenium sulfide 2.5% topical lotion See Instructions, APPLY TOPICALLY TO AFFECTED AREA EVERY DAY FOR 7 DAYS, # 120 mL, 3 Refills, Soft Stop, 07/23/20 11:40:00 EDT, [facility], 7, APPLY TOPICALLY TO AFFECTED AREA EVERY DAY FOR 7 DAYS, 158, cm, 07/23/20 11:13:00 EDT, H... Start Date: 07/23/20 Status: Ordered Shingrix intramuscular injection = 0.5 mL, Intramuscular, Once, repeat dose in 2 to 6 months, # 2 each, 0 Refills, Soft Stop, 05/27/20 11:03:00 EDT, Powder, [facility], Partial fill upon patient request if [...] 1 Refills, Maintenance, 03/10/20 18:21:00 EST, Cream, [facility] 3, Partial fill upon patient [...] had been seen by Jazz Francois at [facility]. Client has no-showed to last appt and today.She will be targetted for closing if she does not responde to correspondence that will be sent on 02/14/13 Social History Social History Type Response Smoking Status 5-9 cigarettes (betw een 1/4 to 1/2 pack)/day in last 30 days entered on: 09/08/20 Sex
--- OUTSIDE RECORDS SUMMARY | 2022-11-03 10:41 | XMS_ITS | Continuity of Care Document ---
Author Name Unknown Organization [facility] Address Unknown Care Team Providers Care Supervisor Riprap Placing Name Role Phone Ilya De Leon MD Primary Care Physician Encounter [facility] Date(s): 05/20/21 - 06/19/21 [facility] Allergies, Adverse Reactions, Alerts Substance [...] AT [facility] Medications capsaicin 0.025% topical cream See Instructions, APPLY TO AFFECTED AREA TWICE A DAY, # 60 Gm, 1 Refills, [id number], 30, APPLY TO AFFECTED AREA TWICE A DAY, 155, cm, 05/30/21 15:34:00 EDT, Height, 95.9, kg, 12/05/20 10:08:00 EDT, Dry Weight Start Date: 05/31/21 Status: Ordered Cavilon Emollient topical cream 1 application, Topically, 2 times a day, PRN for dry skin, # 454 Gm, 1 Refills, Maintenance, 09/30/19 16:26:00 EDT, Cream, [facility], 1 application Topically 2 times a day,PRN:for dry skin, 158, cm, 08/27/19 13:02:00 EDT, Height, 76, kg... Start Date: 09/30/19 Status: Ordered Claritin 10 mg oral tablet 10 mg, 1, tablet, By Mouth, Daily, # 15 tablet, Refills 3, Tot. Refills 3, Maintenance, 05/03/21 15:42:00 EST, Route to Pharmacy Electronically, [facility]/pharmacy #[id number], 155, cm, 05/03/21 14:39:00 EST, Height, 95.9, kg, 12/05/20 10:08:00 EDT, Dry Weight Start Date: 05/03/21 Status: Ordered clonazePAM 0.5 mg oral tablet 1 tablet = 0.5 mg, By Mouth, Daily, # 14 tablet, 0 Refills, Maintenance, 05/30/21 12:57:00 EDT, Tablet, [facility]/pharmacy #[id number], LEAD SYSTEMS ENGINEER reviewed, covering for Dr. De Leon, 155, cm, 05/03/21 14:39:00 EST, Height, 95.9, kg, 12/05/20 10:08:00 EDT, Dry Weight Start Date: 05/30/21 Stop Date: 06/13/21 Status: Ordered Dovonex 0.005% topical cream 1 applicator, Topically, 2 times a day, # 60 Gm, 5 Refills, Maintenance, 07/07/19 17:30:00 EDT, [facility], 1 applicator Topically 2 times a day,x30 days, 158, cm, 12/24/18 10:25:00 EDT, Height, 76, kg, 04/12/19 15:31:00 EST, Dry Weight Start Date: 07/07/19 Stop Date: 01/03/20 Status: Ordered fluticasone 50 mcg/inh nasal spray 1 sprays, Nares, Both, 2 times a day, in each nostril. for allergies, # 16 Gm, 0 Refills, Maintenance, 04/27/20 14:35:00 EST, [place], [facility], Partial fill upon patient request if theprescription is for a schedule II opioid drug., 1... Start Date: 04/27/20 Stop Date: 05/27/20 Status: Ordered furosemide 20 mg oral tablet 1, tablet, By Mouth, Daily, # 30 tablet, Refills 3, Tot. Refills 3, Maintenance, 04/18/21 12:11:00 EST, Route to Pharmacy Electronically, [facility]/pharmacy #[id number], 155, cm, 04/18/21 10:12:00 EST, Height, 95.9, kg, 12/05/20 10:08:00 EDT, Dry Weight Start Date: 04/18/21 Status: Ordered halobetasol 0.05% topical ointment See Instructions, APPLY A THIN FILM TO THE AFFECTED SKIN AND RUB IN GENTLY AND COMPLETELY TWICE A DAY, # 50 Gm, 1 Refills, [facility] [address], 30, APPLY A THIN FILM TO THE AFFECTED SKIN AND RUB IN GENTLY AND COMPLETELY TWICE A DAY, 155, cm, 12/05/20 10:0... Start Date: 03/15/21 Status: Ordered hydrocortisone 1% topical cream 1 application, Topically, 2 times a day, # 30 Gm, 0 Refills, Maintenance, 06/17/21 11:42:00 EDT, Cream, [facility], Partial fill upon patient request if the prescription is for a schedule II opioid drug., 1 application Topically 2 times... Start Date: 06/17/21 Status: Ordered ketoconazole 2% topical shampoo See Instructions, APPLY 1 APPLICATOR TOPICALLY 3X PER WEEK, # 120 mL, 3 Refills, [facility] [id number], 30, APPLY 1 APPLICATOR TOPICALLY 3X PER [...] Stop, 07/27/20 11:50:00 EDT, Cream, [facility], 1 applicationTopically Once,Instr:to skin head to feet, remove b... Start Date: 07/27/20 Status: Ordered predniSONE 10 mg oral tablet 1 tablet, By Mouth, Daily, for 7 days, Change supply to 1 week at a time to try to get correct adherence, # 7 tablet, 0 Refills, Physician Stop 06/21/21 12:29:00 EDT, 06/14/21 12:29:00 EDT, [facility]/pharmacy #[id number], 155, cm, 05/30/21 15:34:00 EDT, Height, 9... Start Date: 06/14/21 Stop Date: 06/21/21 Status: Ordered selenium sulfide 2.5% topical lotion See Instructions, APPLY TOPICALLY TO AFFECTED AREA EVERY DAY FOR 7 DAYS, # 120 mL, 3 Refills, Soft Stop, 04/26/21 18:07:00 EST, [facility]/pharmacy #[id number], 7, APPLY TOPICALLY TO AFFECTED AREA EVERY DAY FOR 7DAYS, 155, cm, 04/18/21 10:12:00 EST, Height, 95.9,... Start Date: 04/26/21 Status: Ordered tiZANidine 2 mg oral tablet 1, tablet, By Mouth, 3 times a day, # 60 tablet, Refills 0, Route to Pharmacy Electronically, [id number], 155, cm, 05/03/21 14:39:00 EST, Height, 95.9, [...]
--- OUTSIDE RECORDS SUMMARY | 2022-11-03 10:41 | XMS_ITS | Continuity of Care Document ---
Author Name Unknown Organization [facility] Address [address] [place] [id number]- Care Team Providers Care Bulk Coolers Installer Name Role Phone Haley NEWMAN, Ilya Primary Care Physician Encounter [facility] Date(s): 05/31/20 - 06/30/20 [facility]/[address] [address]- Allergies, Adverse Reactions, Alerts Substance Reaction Severity [...] [facility] Medications Cavilon Emollient topical cream 1 application, Topically, 2 times a day, PRN for dry skin, # 454 Gm, 1 Refills, Maintenance, 09/30/19 16:26:00 EDT, Cream, [facility], 1 application Topically 2 times a day,PRN:for dry skin, 158, cm, 08/27/19 13:02:00 EDT, Height, 76, kg... Start Date: 09/30/19 Status: Ordered cetirizine 10 mg oral tablet 1 tablet = 10 mg, By Mouth, Daily, for allergies. Do NOT take with claritin, # 30 tablet, 0 Refills, Maintenance, 04/27/20 14:41:00 EST, Tablet, [facility], Partial fill upon patient request if the prescription is for a schedule II opioi... Start Date: 04/27/20 Stop Date: 05/27/20 Status: Ordered Claritin 10 mg oral tablet 10 mg, 1, tablet, By Mouth, Daily, # 15 tablet, Refills 3, Tot. Refills 3, Maintenance, 11/06/18 8:33:38 EDT, Route to Pharmacy Electronically, [id number], [facility] Start Date: 11/06/18 Status: Ordered Dovonex 0.005% topical cream 1 applicator, Topically, 2 times a day, # 60 Gm, 5 Refills, Maintenance, 07/07/19 17:30:00 EDT, [facility], 1 applicator Topically 2 times a [...] Gm, 0 Refills, Maintenance, 04/27/20 14:35:00 EST, [place], [facility], Partial fill upon patient request if theprescription is for a schedule II opioid drug., 1... Start Date: 04/27/20 Stop Date: 05/27/20 Status: Ordered hydrocortisone 1% topical cream 1 application, Topically, 2 times a day, Apply to rash areas, # 60 Gm, 3 Refills, Maintenance, 06/04/19 14:52:00 EDT, Cream, [facility], 1 application Topically [...] 0 Refills, Soft Stop, 05/31/20 15:38:00 EDT, [facility]/pharmacy #[id number], 158, cm, 05/27/20... Start Date: 05/31/20 Status: Ordered Medrol Dosepak 4 mg oral tablet per label intructions, By Mouth, Once, as on label, # 1 each, 0 Refills, Soft Stop, 08/11/19 20:08:00 EDT, [facility], 158, cm, 12/24/18 10:25:00 EDT, Height, 76, kg, 04/12/19 15:31:00 EST, Dry Weight Start Date: 08/11/19 Status: Ordered Medrol Dosepak 4 mg oral tablet 1 pack/packet, By Mouth, Once, # 21 tablet, 0 Refills, Soft Stop, 07/26/19 18:15:40 EDT, Tablet Start Date: 10/04/18 Status: Ordered Methadone By Mouth, 0 Refills, Maintenance Start Date: 12/25/11 Status: Ordered Nizoral 2% topical shampoo See Instructions, 1 applicator Topically 3x per week, # 120 mL, 10 Refills, Soft Stop, 05/13/20 11:05:00 EST, [facility], 1 applicator Topically 3x per week, 158, cm, 05/10/20 11:36:00 EST, Height, 76, kg, 04/12/19 15:31:00 EST, Dry Weight Start Date: 05/13/20 Status: Ordered oxyCODONE 5 mg oral tablet 5 mg, 1, tablet, By Mouth, Every 6 hours, PRN, # 4 tablet, Refills 0, Tot. Refills 0, Maintenance, Pain , Severe, 06/26/20 10:50:00 EDT, Route to Pharmacy Electronically, [facility] 3, Partial fill upon patient [...] 0 Refills, Maintenance, 06/26/20 10:47:00 EDT, Tablet, [facility], Partial fill upon patient request if the... Start Date: 06/26/20 Status: Ordered predniSONE 5 mg oral tablet See Instructions, 2 tablets daily for 5 days then 1 daily for 5 days then stop, # 15 tablet, 0 Refills, Maintenance, 06/23/20 13:21:00 EDT, [facility]acy #[id number], Partial fill upon patient request if the prescription is for a schedule II opioid drug., 15... Start Date: 06/23/20 Status: Ordered selenium sulfide 2.5% topical lotion See Instructions, APPLY TOPICALLY TO AFFECTED AREA EVERY DAY FOR 7 DAYS, # 120 mL, 3 Refills, Maintenance, [facility], 7, APPLY TOPICALLY TO AFFECTED AREA EVERY DAY FOR 7 DAYS, 158, cm, 05/10/20 11:36:00 EST, Height, 76, kg, 04/12/19 15:31:00 E... Start Date: 05/21/20 Status: Ordered selenium sulfide 2.5% topical lotion See Instructions, APPLY TOPICALLY TO AFFECTED AREA EVERY DAY FOR 7 DAYS, # 120 mL, 3 Refills, Maintenance, [facility], 7, APPLY TOPICALLY TO AFFECTED AREA EVERY DAY FOR 7 DAYS, 158, cm, 08/27/19 13:02:00 EDT, Height, 76, kg, 04/12/19 15:31:00 E... Start Date: 03/01/20 Status: Ordered Shingrix intramuscular injection = 0.5 mL, Intramuscular, Once, repeat dose in 2 to 6 months, # 2 each, 0 Refills, Soft Stop, 05/27/20 11:03:00 EDT, Powder, [facility], Partial fill upon patient request [...] 1 Refills, Maintenance, 03/10/20 18:21:00 EST, [facility], [facility] fill upon [facility] [...] 0 Refills, Maintenance, 04/06/19 20:19:00 EST, Tablet, [facility], 158, cm, 12/24/18 [...]
--- OUTSIDE RECORDS SUMMARY | 2022-11-03 10:41 | XMS_ITS | Continuity of Care Document ---
Author Name Unknown Organization [facility] ter Address [address] [place] [id number]- Care Team Providers Care Hardwood Flooring Specialist Name Role Phone Ilya De Leon MD Primary Care Physician Encounter [facility] [place] Date(s): 05/27/20 - 06/27/[address] [address] Attending Physician: Robert Rosario MD, I Admitting [...] 1 Refills, Maintenance, 09/30/19 16:26:00 EDT, Cream, [facility], 1 application Topically 2 times a day,PRN:for dry skin, 158, cm, 08/27/19 13:02:00 EDT, Height, 76, kg... Start Date: 09/30/19 Status: Ordered cetirizine 10 mg oral tablet 1 tablet = 10 mg, By Mouth, Daily, for allergies. Do NOT take with claritin, # 30 tablet, 0 Refills, Maintenance, 04/27/20 14:41:00 EST, Tablet, [facility] 3, Partial fill upon patient request if the prescription is for a schedule II opioi... Start Date: 04/27/20 Stop Date: 05/27/20 Status: Ordered Claritin 10 mg oral tablet 10 mg, 1, tablet, By Mouth, Daily, # 15 tablet, Refills 3, Tot. Refills 3, Maintenance, 11/06/18 8:33:38 EDT, Route to Pharmacy Electronically, [id number], [facility] Start Date: 11/06/18 Status: Ordered Dovonex 0.005% topical cream 1 applicator, Topically, 2 times a day, # 60 Gm, 5 Refills, Maintenance, 07/07/19 17:30:00 EDT, [facility] 3, 1 applicator Topically 2 times a [...] Gm, 0 Refills, Maintenance, 04/27/20 14:35:00 EST, [place], [facility], Partial fill upon patient request if theprescription is for a schedule II opioid drug., 1... Start Date: 04/27/20 Stop Date: 05/27/20 Status: Ordered hydrocortisone 1% topical cream 1 application, Topically, 2 times a day, Apply to rash areas, # 60 Gm, 3 Refills, Maintenance, 06/04/19 14:52:00 EDT, Cream, [facility], 1 application Topically 2 [...] 0 Refills, Soft Stop, 05/31/20 15:38:00 EDT, [facility]/pharmacy #[id number], 158, cm, 05/27/20... Start Date: 05/31/20 Status: Ordered Medrol Dosepak 4 mg oral tablet per label intructions, By Mouth, Once, as on label, # 1 each, 0 Refills, Soft Stop, 08/11/19 20:08:00 EDT, [facility], 158, cm, 12/24/18 10:25:00 EDT, [...] 10 Refills, Soft Stop, 05/13/20 11:05:00 EST, [facility], 1 applicator Topically 3x per week, 158, cm, 05/10/20 11:36:00 EST, Height, 76, kg, 04/12/19 15:31:00 EST, Dry Weight Start Date: 05/13/20 Status: Ordered oxyCODONE 5 mg oral tablet 5 mg, 1, tablet, By Mouth, Every 6 hours, PRN, # 4 tablet, Refills 0, Tot. Refills 0, Maintenance, Pain , Severe, 06/26/20 10:50:00 EDT, Route to Pharmacy Electronically, [facility] 3, Partial fill upon patient request if [...] 0 Refills, Maintenance, 06/26/20 10:47:00 EDT, Tablet, [facility], Partial fill upon patient request if the... Start Date: 06/26/20 Status: Ordered predniSONE 5 mg oral tablet See Instructions, 2 tablets daily for 5 days then 1 daily for 5 days then stop, # 15 tablet, 0 Refills, Maintenance, 06/23/20 13:21:00 EDT, [facility]/pharmacy #[id number], Partial fill upon patient request if the prescription is for a schedule II opioid drug., 15... Start Date: 06/23/20 Status: Ordered selenium sulfide 2.5% topical lotion See Instructions, APPLY TOPICALLY TO AFFECTED AREA EVERY DAY FOR 7 DAYS, # 120 mL, 3 Refills, Maintenance, [facility], 7, APPLY TOPICALLY TO AFFECTED AREA EVERY DAY FOR 7 DAYS, 158, cm, 05/10/20 11:36:00 EST, Height, 76, kg, 04/12/19 15:31:00 E... Start Date: 05/21/20 Status: Ordered selenium sulfide 2.5% topical lotion See Instructions, APPLY TOPICALLY TO AFFECTED AREA EVERY DAY FOR 7 DAYS, # 120 mL, 3 Refills, Maintenance, [facility], 7, APPLY TOPICALLY TO AFFECTED AREA EVERY DAY FOR 7 DAYS, 158, cm, 08/27/19 13:02:00 EDT, Height, 76, kg, 04/12/19 15:31:00 E... Start Date: 03/01/20 Status: Ordered Shingrix intramuscular injection = 0.5 mL, Intramuscular, Once, repeat dose in 2 to 6 months, # 2 each, 0 Refills, Soft Stop, 05/27/20 11:03:00 EDT, Powder, [facility], Partial fill upon patient request if [...] 1 Refills, Maintenance, 03/10/20 18:21:00 EST, Cream, [facility] 3, Partial fill upon patient request if [...] 0 Refills, Maintenance, 04/06/19 20:19:00 EST, Tablet, [facility], 158, cm, 12/24/18 10:25:00 [...]
--- OUTSIDE RECORDS SUMMARY | 2022-11-03 10:41 | XMS_ITS | Continuity of Care Document ---
Author Name Unknown Organization [facility] Address Unknown Care Team Providers Care Court Of Appeals Judge Name Role Phone Ilya De Leon MD Primary Care Physician [place] [facility] [place] 02/24/[place] - 03/27/21 [facility] Attending Physician: Robert Rosario MD, I Admitting Physician: Robert Rosario MD, I Referring Physician: Ilya De Leon MD Allergies, [...] [facility] Medications acetaminophen-codeine 300 mg-15 mg oral tablet 1 tablet, By Mouth, Every 4 hours, PRN for pain, # 15 tablet, 0 Refills, Acute 03/29/21 12:00:00 EST, 03/25/21 10:54:00 EST, Tablet, [facility], Partial fill upon patient request if the prescription is for a schedule II opioid drug... Start Date: 03/25/21 Stop Date: 03/29/21 Status: Ordered capsaicin 0.025% topical cream See Instructions, APPLY TO AFFECTED AREA TWICE A DAY, # 60 Gm, 0 Refills, [id number], 30, APPLY TO AFFECTED AREA TWICE A DAY, 155, cm, 03/17/21 7:53:00 EST, Height, 95.9, kg, 12/05/20 10:08:00 EDT, Dry Weight Start Date: 03/21/21 Status: Ordered Cavilon Emollient topical cream 1 application, Topically, 2 times a day, PRN for dry skin, # 454 Gm, 1 Refills, Maintenance, 09/30/19 16:26:00 EDT, Cream, [facility] 3, 1 application Topically 2 times a day,PRN:for dry skin, 158, cm, 08/27/19 13:02:00 EDT, Height, 76, kg... Start Date: 09/30/19 Status: Ordered cetirizine 10 mg oral tablet 1 tablet = 10 mg, By Mouth, Daily, # 30 tablet, 0 Refills, Maintenance, 12/03/20 13:44:00 EDT, Tablet, [facility]/pharmacy #[id number], Partial fill upon patient request if the prescription is for a schedule II opioid drug., 158, cm, 12/03/20 13:27:00 EDT, Height,... Start Date: 12/03/20 Status: Ordered Claritin 10 mg oral tablet 10 mg, 1, tablet, By Mouth, Daily, # 15 tablet, Refills 3, Tot. Refills 3, Maintenance, 11/06/18 8:33:38 EDT, Route to Pharmacy Electronically, [id number], [facility] Start Date: 11/06/18 Status: Ordered clindamycin 150 mg oral capsule See Instructions, 3 capsultes 3 times a day, # 45 capsule, 0 Refills, Acute 01/20/22 14:53:00 EST, 03/17/21 14:50:00 EST, Capsule, [facility], Partial fill upon patient request ifthe prescription is for a schedule II opioid drug.,... Start Date: 03/17/21 Stop Date: 01/20/22 Status: Ordered clindamycin 300 mg oral capsule 1 capsule = 300 mg, By Mouth, 3 times a day, for 7 days, # 21 capsule, 0 Refills, Acute 04/01/21 10:52:00 EST, 03/25/21 10:52:00 EST, Capsule, [facility], Partial fill upon patient request if the prescription is for a schedule II o... Start Date: 03/25/21 Stop Date: 04/01/21 Status: Ordered clonazePAM 0.5 mg oral tablet 1 tablet = 0.5 mg, By Mouth, Daily, [employer] checked Do not fill until 03/28/21, # 7 tablet, 0 Refills, Maintenance, 03/26/21 17:55:00 EST, Tablet, [facility]/pharmacy #[id number], Partial fill upon patient request if the prescription is for a schedule II opioid drug.,... Start Date: 03/26/21 Stop Date: 04/02/21 Status: Ordered diphenhydrAMINE 25 mg oral tablet 1 tablet = 25 mg, By Mouth, 3 times a day, PRN as needed for itching, Will cause drowsiness, # 30 tablet, 0 Refills, Maintenance, 07/16/20 15:11:00 EDT, Tablet, [facility], Partial fill upon patient request if the prescription is f... Start Date: 07/16/20 Status: Ordered Dovonex 0.005% topical cream 1 applicator, Topically, 2 times a day, # 60 Gm, 5 Refills, Maintenance, 07/07/19 17:30:00 EDT, [facility] 3, 1 applicator Topically 2 [...] Gm, 0 Refills, Maintenance, 04/27/20 14:35:00 EST, [place], [facility], Partial fill upon patient request if theprescription is for a schedule II opioid drug., 1... Start Date: 04/27/20 Stop Date: 05/27/20 Status: Ordered furosemide 20 mg oral tablet 1, tablet, By Mouth, Daily, # 30 tablet, Refills 3, Tot. Refills 3, Maintenance, 01/20/21 12:45:00 EST, Route to Pharmacy Electronically, [facility]/pharmacy #[id number], 155, cm, 12/05/20 10:08:00 EDT, Height, 95.9, kg, 12/05/20 10:08:00 EDT, Dry Weight Start Date: 01/20/21 Status: Ordered halobetasol 0.05% topical ointment See Instructions, APPLY A THIN FILM TO THE AFFECTED SKIN AND RUB IN GENTLY AND COMPLETELY TWICE A DAY, # 50 Gm, 1 Refills, [facility] [id number], , APPLY A THIN FILM TO THE AFFECTED SKIN AND RUB IN GENTLY AND COMPLETELY TWICE A DAY, 155, cm, 12/05/20 10:0... Start Date: 03/15/21 Status: Ordered hydrocortisone 1% topical cream 1 application, Topically, 2 times a day, Apply to rash areas, # 60 Gm, 3 Refills, Maintenance, 06/04/19 14:52:00 EDT, Cream, [facility], 1 application Topically 2 times a day,Instr:Apply to rash areas, 158, cm, 12/24/18 10:25:00 EDT, Hei... Start Date: 06/04/19 Status: Ordered ketoconazole 2% topical shampoo See Instructions, APPLY 1 APPLICATOR TOPICALLY 3X PER WEEK, # 120 mL, 3 Refills, [facility] [id number], , APPLY 1 APPLICATOR TOPICALLY 3X PER WEEK, [...] 2 Refills, Maintenance, 03/08/21 10:26:00 EST, [id number] Partial fill upon patient request if the prescription is for a schedule II opioid drug., 1 application Topically 3 times a day,... Start Date: 03/08/21 Status: Ordered [place] 0.65% nasal spray 2 sprays, Nares, Both, 4 times a day, # 1 each, 0 Refills, Maintenance, 12/03/20 13:46:00 EDT, [facility]/pharmacy #[id number], Partial fill upon patient [...] Refills, Soft Stop, 07/27/20 11:50:00 EDT, Cream, [facility], 1 applicationTopically Once,Instr:to skin head to feet, remove b... Start Date: 07/27/20 Status: Ordered predniSONE 20 mg oral tablet 2 tablet = 40 mg, By Mouth, Daily, for 5 days, # 10 tablet, 0 Refills, Acute 03/30/21 10:51:00 EST,03/25/21 10:51:00 EST, Tablet, [facility], Partial fill upon patient request ifthe prescription is for a schedule II opioid drug.,... Start Date: 03/25/21 Stop Date: 03/30/21 Status: Ordered predniSONE 5 mg oral tablet 1 tablet, By Mouth, 3 times a day, for 7 days, do not fill until 03/15/20, # 21 tablet, 0 Refills, Physician Stop 03/28/21 9:21:00 EST, 03/21/21 9:21:00 EST, [facility]/pharmacy #[id number], 155, cm, 03/17/21 7:53:00 EST, Height, 95.9, kg, 12/05/20 10:08:00 EDT, Dry... Start Date: 03/21/21 Stop Date: 03/28/21 Status: Ordered selenium sulfide 2.5% topical lotion See Instructions, APPLY TOPICALLY TO AFFECTED AREA EVERY DAY FOR 7 DAYS, # 120 mL, 3 Refills, Soft Stop, 03/08/21 10:26:00 EST, [facility]/pharmacy #[id number], 7, APPLY TOPICALLY TO AFFECTED AREA EVERY DAY FOR 7DAYS, 155, cm, 12/05/20 10:08:00 EDT, Height, 95.9,... Start Date: 03/08/21 Status: Ordered Shingrix intramuscular injection = 0.5 mL, Intramuscular, Once, repeat dose in 2 to 6 months, # 2 each, 0 Refills, Soft Stop, 05/27/20 11:03:00 EDT, Powder, [facility], Partial fill upon patient request [...] 03/10/20 18:21:00 EST, Cream, [facility] 3, Partial fill upon patient [...] History Type Response Smoking Status 5-9 cigarettes (violet okeefe 1/4 to 1/2 pack)/day in last 30 days entered on: 09/08/20 Sex
--- OUTSIDE RECORDS SUMMARY | 2022-11-03 10:41 | XMS_ITS | Continuity of Care Document ---
Author Name Unknown Organization [facility] Address [address] [place] [address]- Care Team Providers Care Php Architect Name Role Phone Ilya De Leon MD Primary Care Physician En[place] [facility] [place] Date(s): 06/27/19 - 07/04/19 [facility] [place] [address] [place] [address]- [facility] Attending Physician: Not on Staff, Attending [...] HOSPITAL 2Admin Note: FLUVIRIN MULTIDOSE ADMINISTERED AT [facility] Cavilon Emollient topical cream 1 application, Topically, 2 times a day, PRN for dry skin, # 454 Gm, 0 Refills, Maintenance, 10/27/18 16:13:42 EDT, Cream Start Date: 10/27/18 Status: Ordered Claritin 10 mg oral tablet 10 mg, 1, tablet, By Mouth, Daily, # 15 tablet, Refills 3, Tot. Refills 3, Maintenance, 11/06/18 8:33:38 EDT, Route to Pharmacy Electronically, [id number], [facility] Start Date: 11/06/18 Status: Ordered Dovonex 0.005% topical cream 1 applicator, Topically, 2 times a day, # 60 Gm, 5 Refills, Maintenance, 06/04/19 14:52:00 EDT, [facility] 3, 1 applicator Topically 2 times a day,x30 days, 158, cm, 12/24/18 10:25:00 EDT, Height, 76, kg, 04/12/19 15:31:00 EST, Dry Weight Start Date: 06/04/19 Stop Date: 12/01/19 Status: Ordered Eucerin Plus topical lotion 1 [...] 3 Refills, Maintenance, 06/04/19 14:52:00 EDT, Cream, [facility], 1 [...] 0 Refills, Soft Stop, 06/22/19 9:32:00 EDT, [facility], 158, cm, 12/24/18 10:25:00 EDT,... Start Date: 06/22/19 Status: Ordered Medrol Dosepak 4 mg oral tablet per label intructions, By Mouth, Once, as on label, # 1 each, 0 Refills, Soft Stop, 06/27/19 15:04:00 EDT, [facility], 158, cm, 12/24/18 10:25:00 [...] DAYS, # 120 mL, 3 Refills, Maintenance, [facility], 7, APPLY TOPICALLY TO AFFECTED [...] 0 Refills, Maintenance, 04/06/19 20:19:00 EST, Tablet, [facility], 158, cm, 12/24/18 10:25:00 [...]
--- OUTSIDE RECORDS SUMMARY | 2022-11-03 10:41 | XMS_ITS | Continuity of Care Document ---
Author Name Unknown Organization [facility] Address [address] [place] [address]- Care Team Providers Care Rn Occupational Name Role Phone Ilya De Leon MD Primary Care Physician Encounter [facility] [place] Date(s): 06/19/22 - 07/19/22 [facility]/[address] [address]- [place] Allergies, Adverse Reactions, Alerts Substance Reaction [...] Maintenance, 06/29/21 15:10:00 EDT, ER Tablet, [id number], Partial fill upon patient request if the prescription is for a schedule II opioid drug., 155, cm, 05/30/21 15:34:... Start Date: 06/29/21 Status: Ordered capsaicin 0.025% topical cream See Instructions, APPLY TO AFFECTED AREA TWICE A DAY, # 60 Gm, 1 Refills, [facility] [id number], 30, APPLY TO AFFECTED AREA TWICE A DAY, 155, cm, 05/30/21 15:34:00 EDT, Height, 95.9, kg, 12/05/20 10:08:00 EDT, Dry Weight Start Date: 05/31/21 Status: Ordered Cavilon Emollient topical cream 1 application, Topically, 2 times a day, PRN for dry skin, # 454 Gm, 1 Refills, Maintenance, 09/30/19 16:26:00 EDT, Cream, [facility], 1 application Topically 2 times a day,PRN:for dry skin, 158, cm, 08/27/19 13:02:00 EDT, Height, 76, kg... Start Date: 09/30/19 Status: Ordered clonazePAM 0.5 mg oral tablet 1 tablet = 0.5 mg, By Mouth, Daily at bedtime, May fill 05/26/22 and weekly on Fridays for 3 weeks, # 7 tablet, 2 Refills, Maintenance, 05/24/22 10:44:00 EDT, Tablet, [facility], [employer] reviewed, covering for Dr. De Leon, 155, [...] 12:38:00 EDT, Tablet, [facility], [employer] reviewed, covering for Dr. De Leon, 1... [...] Gm, 0 Refills, Maintenance, 04/27/20 14:35:00 EST, [place], [facility] 3, Partial fill upon patient request if theprescription is for a schedule II opioid drug., 1... Start Date: 04/27/20 Stop Date: 05/27/20 Status: Ordered halobetasol 0.05% topical ointment See Instructions, APPLY A THIN FILM TO THE AFFECTED SKIN AND RUB IN GENTLY AND COMPLETELY TWICE A DAY, # 50 Gm, 1 Refills, Maintenance, 07/17/22 10:18:00 EDT, [facility], 30, APPLY A THIN FILM TO THE AFFECTED SKIN AND RUB IN GENTLY... Start Date: 07/17/22 Status: Ordered ketoconazole 2% topical shampoo See Instructions, APPLY 1 APPLICATOR TOPICALLY 3X PER WEEK, # 120 mL, 3 Refills, Maintenance, 05/16/22 8:48:00 EST, [facility] [id number], 30, APPLY 1 APPLICATOR TOPICALLY 3X PER WEEK, 155, cm, 01/23/22 14:00:00 EST, Height, 106.5, kg, 09/14/21 9:38:00 EDT,... Start Date: 05/16/22 Status: Ordered loratadine 10 mg oral tablet 1, tablet, By Mouth, Daily, # 30 tablet, Refills 5, Tot. Refills 5, Maintenance, 07/04/22 8:39:00 EDT, Route to Pharmacy Electronically, [facility]/pharmacy #[id number], 155, cm, 01/23/22 14:00:00 EST, Height, 106.5, kg, 09/14/21 9:38:00 EDT, Dry Weight Start Date: 07/04/22 Status: Ordered Methadone By Mouth, 0 Refills, Maintenance Start Date: 12/25/11 Status: Ordered mupirocin 2% topical cream 1 application, Topically, 3 times a day, # 30 Gm, 2 Refills, Maintenance, 03/08/21 10:26:00 EST, Cream, [facility]/pharmacy #[id number], Partial fill upon patient request if the prescription is for a schedule II opioid drug., 1 application Topically 3 times a day,... Start Date: 03/08/21 Status: Ordered permethrin 5% topical cream 1 application, Topically, Once, to skin head to feet, remove by washing after 8 to 14 hours, # 60 Gm, 0 Refills, Soft Stop, 07/27/20 11:50:00 EDT, Cream, [facility], 1 applicationTopically Once,Instr:to skin head to feet, remove b... Start Date: 07/27/20 Status: Ordered predniSONE 10 mg oral tablet See Instructions, May fill 06/16/22 and weekly on Fridays for 3 weeks, # 14 tablet, 2 Refills, 07/04/22 13:28:00 EDT, [facility], 155, cm, [...] tablet, 2 Refills, Maintenance, 07/19/22 12:40:00 EDT, [facility], Partial fill [...] to Pharmacy Electronically, [facility] [id number], 155, cm, 05/03/21 14:39:00 EST, Height, 95.9, kg, 12/05/20 10:08:00 EDT, Dry Weight Start Date: 05/09/21 Status: Ordered traMADol 50 mg oral tablet 1 tablet = 50 mg, By Mouth, Every 8 hours, PRN Pain , Severe, for 7 days, May fill 07/21/22 and weekly on Fridays for 3 weeks, # 21 tablet, 2 Refills, Acute 08/09/22 12:38:00 EDT, 07/19/22 12:38:00 EDT, Tablet, [facility], Partial... Start Date: 07/19/22 Stop Date: 08/09/22 Status: Ordered Problem List Condition Confirmation Course Effective Dates Status H ealth Status Informant Anxiety Confirmed Active Opioid type dependence, continuous 1 Confirmed Active Osteoarthritis of left knee Confirmed Active Psoriasis Confirmed Active Severe obesity Confirmed Active 1Client had been seen by Jazz Francois at [facility]. Client has no-showed to last appt [...] Ilya De Leon MD Position: [facility] Primary Care Physician Member Role: PCP Address: Address: [address] [place] [id number]- Care Team Related Persons Name: JD ALVAREZ Address: home [address] [place] [id number]
--- OUTSIDE RECORDS SUMMARY | 2022-11-03 10:41 | XMS_ITS | Continuity of Care Document ---
Author Name Unknown Organization [facility] Address [address] [place] [address]- Care Team Providers Care Lye Treater Name Role Phone Ilya De Leon MD Primary Care Physician Encounter [facility] Date(s): 01/02/22 - 02/01/22 [facility]/[address] [address]- [place] Allergies, Adverse Reactions, Alerts Substance Reaction [...] Refills, Maintenance, 06/29/21 15:10:00 EDT, ER Tablet, [facility]/pharmacy #[id number], Partial fill upon patient request if the prescription is for a schedule II opioid drug., 155, cm, 05/30/21 15:34:... Start Date: 06/29/21 Status: Ordered capsaicin 0.025% topical cream See Instructions, APPLY TO AFFECTED AREA TWICE A DAY, # 60 Gm, 1 Refills, [id number], 30, APPLY TO AFFECTED AREA TWICE A DAY, 155, cm, 05/30/21 15:34:00 EDT, Height, 95.9, kg, 12/05/20 10:08:00 EDT, Dry Weight Start Date: 05/31/21 Status: Ordered Cavilon Emollient topical cream 1 application, Topically, 2 times a day, PRN for dry skin, # 454 Gm, 1 Refills, Maintenance, 09/30/19 16:26:00 EDT, Cream, [facility], 1 application Topically 2 times a day,PRN:for dry skin, 158, cm, 08/27/19 13:02:00 EDT, Height, 76, kg... Start Date: 09/30/19 Status: Ordered clonazePAM 0.5 mg oral tablet 1 tablet = 0.5 mg, By Mouth, Daily at bedtime, May fill 01/20/22 and weekly on Fridays for3 weeks, # 7 tablet, 2 Refills, Maintenance, 01/18/22 14:09:00 EST, Tablet, [facility], PHARMACY OPERATIONS COORDINATOR reviewed, covering for Dr. De Leon, 155, cm, 10/0... Start Date: 01/18/22 Stop Date: 02/08/22 Status: Ordered coal tar topical 1% lotion See Instructions, applyTopically Daily at bedtime, # 120 mL, 3 Refills, Maintenance, 10/26/21 15:45:00 EDT, [facility], Partial fill upon patient request if the prescription is for a schedule II opioid drug., applyTopically Daily a... Start Date: 10/26/21 Status: Ordered Dovonex 0.005% topical cream 1 applicator, Topically, 2 times a day, # 60 Gm, 5 Refills, Maintenance, 07/07/19 17:30:00 EDT, [facility], 1 applicator Topically 2 times a day,x30 days, 158, cm, 12/24/18 10:25:00 EDT, Height, 76, kg, 04/12/19 15:31:00 EST, Dry Weight Start Date: 07/07/19 Stop Date: 01/03/20 Status: Ordered Eucerin Unscented topical lotion See Instructions, apply as frequently as needed, # 1 each, 0 Refills, Maintenance, 09/28/21 12:23:00 EDT, [facility], Partial fill upon patient request if the prescription is for a schedule II opioid drug., apply as frequently as n... Start Date: 09/28/21 Status: Ordered fluticasone 50 mcg/inh nasal spray 1 sprays, Nares, Both, 2 times a day, in each nostril. for allergies, # 16 Gm, 0 Refills, Maintenance, 04/27/20 14:35:00 EST, [place], [facility] 3, Partial fill upon patient request if theprescription is for a schedule II opioid drug., 1... Start Date: 04/27/20 Stop Date: 05/27/20 Status: Ordered halobetasol 0.05% topical ointment See Instructions, APPLY A THIN FILM TO THE AFFECTED SKIN AND RUB IN GENTLY AND COMPLETELY TWICE A DAY, # 50 Gm, 1 Refills, Maintenance, 10/26/21 15:44:00 EDT, [facility], 30, APPLY A THIN FILM TO THE AFFECTED SKIN AND RUB IN GENTLY... Start Date: 10/26/21 Status: Ordered ketoconazole 2% topical shampoo See Instructions, APPLY 1 APPLICATOR TOPICALLY 3X PER WEEK, # 120 mL, 3 Refills, Maintenance, 12/27/21 19:30:00 EDT, [id number], 30, APPLY 1 APPLICATOR TOPICALLY 3X PER WEEK, 155, cm, 12/12/21 16:00:00 EDT, Height, 106.5, kg, 09/14/21 9:38:00 EDT... Start Date: 12/27/21 Status: Ordered loratadine 10 mg oral tablet 1, tablet, By Mouth, Daily, # 90 tablet, Refills 1, Tot. Refills 1, Maintenance, 11/01/21 15:19:00 EDT, Route to Pharmacy Electronically, [facility]/pharmacy #[id number], 155, cm, 09/28/21 12:06:00 EDT, Height, 106.5, kg, 09/14/21 9:38:00 EDT, Dry Weight Start Date: 11/01/21 Status: Ordered Methadone By Mouth, 0 Refills, Maintenance Start Date: 12/25/11 Status: Ordered mupirocin 2% topical cream 1 application, Topically, 3 times a day, # 30 Gm, 2 Refills, Maintenance, 03/08/21 10:26:00 EST, Cream, [facility]/pharmacy #[id number], Partial fill upon patient request [...] 14 tablet, 2 Refills, 01/18/22 14:09:00 EST, [facility], 155, cm, 12/12/21 16:00:00 EDT, Height, 106.5, kg, 09/14/21 9:38:00 EDT, Dry Weight Start Date: 01/18/22 Status: Ordered selenium sulfide 2.5% topical lotion See Instructions, APPLY TOPICALLY TO AFFECTED AREA EVERY DAY FOR 7 DAYS, # 120 mL, 3 Refills, Soft Stop, 10/26/21 15:43:00 EDT, [facility], 7, APPLY TOPICALLY TO AFFECTED AREA EVERY DAY FOR 7 DAYS, 155, cm, 09/28/21 12:06:00 EDT, H... Start Date: 10/26/21 Status: Ordered tiZANidine 2 mg oral tablet 1, tablet, By Mouth, 3 times a day, # 60 tablet, Refills 0, Route to Pharmacy Electronically, [id number], 155, cm, 05/03/21 14:39:00 EST, Height, 95.9, kg, 12/05/20 10:08:00 EDT, Dry Weight Start Date: 05/09/21 Status: Ordered traMADol 50 mg oral tablet 1 tablet = 50 mg, By Mouth, Every 8 hours, PRN Pain , Severe, for 7 days, May fill 01/20/22 and weekly on Fridays for 3 weeks, # 21 tablet, 2 Refills, Acute 02/08/22 14:09:00 EST, 01/18/22 14:09:00 EST, Tablet, [facility], Partial... Start Date: 01/18/22 Stop Date: 02/08/22 Status: Ordered Problem List Condition Confirmation Course Effective Dates Status H ealth Status Informant Anxiety Confirmed Active Opioid type dependence, continuous 1 Confirmed Active Osteoarthritis of left knee Confirmed Active Psoriasis Confirmed Active Severe obesity Confirmed Active 1Client had been seen by Jazz Frnacois at [facility]. Client has no-showed [...] Personnel Name: Ilya De Leon MD Position: [facility] Primary Care Physician Member Role: PCP Address: Address: [address] [place] [address]- Care Team Related Persons Name: JD ALVAREZ Address: home [address] [place] [id number]
--- OUTSIDE RECORDS SUMMARY | 2022-11-03 10:41 | XMS_ITS | Continuity of Care Document ---
Author Name Unknown Organization [facility] Address [address] [place] [address]- Care Team Providers Care Lens Inspector Name Role Phone Ilya De Leon MD Primary Care Physician Encounter [facility] Date(s): 09/26/19 - 10/26/19 [facility]/[address] [address]- [facility] Allergies, Adverse Reactions, Alerts Substance Reaction Severity Status penicillin Rash Active aspirin Ibuprofen tight throat Rash Active Toradol Rash Active Motrin tight throat Rash Active Imitrex Chest pain Active Compazine throat swells Active Reglan Agitated Active trimethoprim-sulfamethoxazole DS 1 Throa t Hives 17-MAY-2013 07:29:57<$> Unknown Active dehydroepiandrosterone 2 Chest pain Act julienne morphine HAND SWELLING Active 1By phone, reported hives and throat [...] 1 Refills, Maintenance, 09/30/19 16:26:00 EDT, Cream, [facility], 1 application Topically 2 times a day,PRN:for dry skin, 158, cm, 08/27/19 13:02:00 EDT, Height, 76, kg... Start Date: 09/30/19 Status: Ordered Claritin 10 mg oral tablet 10 mg, 1, tablet, By Mouth, Daily, # 15 tablet, Refills 3, Tot. Refills 3, Maintenance, 11/06/18 8:33:38 EDT, Route to Pharmacy Electronically, [id number], [facility] Start Date: 11/06/18 Status: Ordered Dovonex 0.005% topical cream 1 applicator, Topically, 2 times a day, # 60 Gm, 5 Refills, Maintenance, 07/07/19 17:30:00 EDT, [facility], 1 applicator Topically 2 [...] 3 Refills, Maintenance, 06/04/19 14:52:00 EDT, Cream, [facility], 1 application Topically 2 [...] 0 Refills, Soft Stop, 10/18/19 13:38:00 EDT, [facility] 3, 158, cm, ... Start Date: 10/18/19 Status: Ordered Medrol Dosepak 4 mg oral tablet per label intructions, By Mouth, Once, as on label, # 1 each, 0 Refills, Soft Stop, 08/11/19 20:08:00 EDT, [facility] 3, 158, cm, 12/24/18 10:25:00 EDT, [...] 0 Refills, Soft Stop, 08/27/19 14:17:00 EDT, [facility], 1 applicator Topically 3x per week, [...] 3 Refills, Soft Stop, 09/23/19 15:13:00 EDT, [facility], 7, APPLY TOPICALLY TO [...] 0 Refills, Maintenance, 04/06/19 20:19:00 EST, Tablet, [facility], 158, cm, 12/24/18 10:25:00 EDT, Height, 75.5, kg, 04/06/19 17:01:00 EST, Dry Weight Start Date: 04/06/19 Stop Date: 04/13/19 Status: Ordered Problem List Condition Effective Dates Status Health Status Inform ant Opioid type dependence, continuous(Confirmed) 1 Active 1Client had been seen by Jazz Francois at [facility]. Client has no-showed to last appt and today.She will be targetted for closing if she does not responde to correspondence that will be sent on 02/14/13 Social History Social History Type Response Smoking Status 10 or more cigarette s (1/2 pack or more)/day in last 30 days entered on: 01/24/18 Sex
--- OUTSIDE RECORDS SUMMARY | 2022-11-03 10:41 | XMS_ITS | Continuity of Care Document ---
Author Name Unknown Organization [facility] Address Unknown Care Team Providers Care Wrister Name Role Phone Ilya De Leon MD Primary Care Physician Encounter [facility] Date(s): 12/02/20 - 01/01/21 [facility] Allergies, Adverse Reactions, [...] FLUVIRIN MULTIDOSE ADMINISTERED AT [facility] Medications Cavilon Emollient topical cream 1 [...] 0 Refills, Maintenance, 12/03/20 13:44:00 EDT, Tablet, [facility]/pharmacy #[id number], Partial fill upon patient request if the prescription is for a schedule II opioid drug., 158, cm, 12/03/20 13:27:00 EDT, Height,... Start Date: 12/03/20 Status: Ordered Claritin 10 mg oral tablet 10 mg, 1, tablet, By Mouth, Daily, # 15 tablet, Refills 3, Tot. Refills 3, Maintenance, 11/06/18 8:33:38 EDT, Route to Pharmacy Electronically, [id number], [facility] Start Date: 11/06/18 Status: Ordered clonazePAM 0.5 mg oral tablet 1 tablet = 0.5 mg, By Mouth, Daily, CHEMISTRY TECHNICAL OFFICER checked, # 28 tablet, 0 Refills, Maintenance, 12/24/20 11:42:00 EDT, Table[facility], [id number] Partial fill upon patient request if the prescription is for aschedule II opioid drug., 155, cm, 12/05/20 10:08:0... Start Date: 12/24/20 Stop Date: 01/21/21 Status: Ordered diphenhydrAMINE 25 mg oral tablet 1 tablet = 25 mg, By Mouth, 3 times a day, PRN as needed for itching, Will cause drowsiness, # 30 tablet, 0 Refills, Maintenance, 07/16/20 15:11:00 EDT, Tablet, [facility], Partial fill upon patient request if the prescription is f... Start Date: 07/16/20 Status: Ordered Dovonex 0.005% topical cream 1 applicator, Topically, 2 times a day, # 60 Gm, 5 Refills, Maintenance, 07/07/19 17:30:00 EDT, [facility] 3, 1 applicator Topically 2 [...] Gm, 0 Refills, Maintenance, 04/27/20 14:35:00 EST, [place], [facility], Partial fill upon patient request if theprescription is for a schedule II opioid drug., 1... Start Date: 04/27/20 Stop Date: 05/27/20 Status: Ordered furosemide 20 mg oral tablet 1, tablet, By Mouth, Daily, # 30 tablet, Refills 3, Tot. Refills 0, Maintenance, 10/21/20 11:22:00 EDT, Route to Pharmacy Electronically, [id number], 158, cm, 10/18/20 10:46:00 EDT, Height, 95.4, kg, 10/16/20 10:11:00 EDT, Dry Weight Start Date: 10/21/20 Status: Ordered halobetasol 0.05% topical ointment See Instructions, APPLY A THIN FILM TO THE AFFECTED SKIN AND RUB IN GENTLY AND COMPLETELY TWICE A DAY, # 50 Gm, 1 Refills, [facility] [id number], 30, APPLY A THIN FILM TO THE AFFECTED SKIN AND RUB IN GENTLY AND COMPLETELY TWICE A DAY, 158, cm, 10/18/20 10:4... Start Date: 12/02/20 Status: Ordered hydrocortisone 1% topical cream 1 application, Topically, 2 times a day, Apply to rash areas, # 60 Gm, 3 Refills, Maintenance, 06/04/19 14:52:00 EDT, Cream, [facility], 1 application Topically 2 times a day,Instr:Apply to rash areas, 158, cm, 12/24/18 10:25:00 EDT, Hei... Start Date: 06/04/19 Status: Ordered ketoconazole 2% topical shampoo See Instructions, APPLY 1 APPLICATOR TOPICALLY 3X PER WEEK, # 120 mL, 3 Refills, [facility] [id number], 30, APPLY 1 APPLICATOR TOPICALLY 3X PER [...] 2 Refills, Maintenance, 12/17/20 15:28:00 EDT, Cream, [facility]/pharmacy #[id number], Partial fill upon patient request if the prescription is for a schedule II opioid drug., 1 application Topically 3 times a day,... Start Date: 12/17/20 Status: Ordered [place] 0.65% nasal spray 2 sprays, Nares, Both, 4 times a day, # 1 each, 0 Refills, Maintenance, 12/03/20 13:46:00 EDT, [facility]/pharmacy #[id number], Partial fill [...] Stop, 07/27/20 11:50:00 EDT, Cream, [facility], 1 applicationTopically Once,Instr:to skin head to feet, remove b... Start Date: 07/27/20 Status: Ordered predniSONE 5 mg oral tablet 1 tablet = 5 mg, By Mouth, 3 times a day, may fill 12/17/20 for 14 days, # 42 tablet, 0 Refills, Maintenance, 12/17/20 15:28:00 EDT, Tablet, [facility]/pharmacy #[id number], Partial fill upon patient request if the prescription is for a schedule II opioid drug., 15... Start Date: 12/17/20 Stop Date: 12/31/20 Status: Ordered selenium sulfide 2.5% topical lotion See Instructions, APPLY TOPICALLY TO AFFECTED AREA EVERY DAY FOR 7 DAYS, # 120 mL, 3 Refills, Soft Stop, 07/23/20 11:40:00 EDT, [facility], 7, APPLY TOPICALLY TO AFFECTED AREA EVERY DAY FOR 7 DAYS, 158, cm, 07/23/20 11:13:00 EDT, H... Start Date: 07/23/20 Status: Ordered Shingrix intramuscular injection = 0.5 mL, Intramuscular, Once, repeat dose in 2 to 6 months, # 2 each, 0 Refills, Soft Stop, 05/27/20 11:03:00 EDT, Powder, [facility], Partial fill upon patient request [...] 1 Refills, Maintenance, 03/10/20 18:21:00 EST, Cream, [facility] 3, Partial fill upon patient [...] by Jazz Francois at [facility]. Client has no-showed to last appt and today.She will be targetted for closing if she does not responde to correspondence that will be sent on 02/14/13 Social History Social History Type Response Smoking Status 5-9 cigarettes (betw een 1/4 to 1/2 pack)/day in last 30 days entered on: 09/08/20 Sex
--- OUTSIDE RECORDS SUMMARY | 2022-11-03 10:41 | XMS_ITS | Continuity of Care Document ---
Author Name Unknown Organization [facility] ter Address [address] [place] [address]- Care Team Providers Care Director Of Emergency Nursing Name Role Phone Ilya De Leon MD Primary Care Physician Encounter [place] Date(s): 04/03/21 - 04/03/[address] [address]- Encounter Diagnosis Muscle strain(Final) - 04/03/21 Discharge Disposition: A-D/C Home Attending Physician: Carmina Rendon MD Admitting Physician: Carmina Rendon MD Referring Physician: Not on Staff, Referring [...] FLUVIRIN MULTIDOSE ADMINISTERED AT [facility] Medications capsaicin 0.025% topical cream See Instructions, APPLY TO AFFECTED AREA TWICE A DAY, # 60 Gm, 0 Refills, [facility] [id number], 30, APPLY TO AFFECTED AREA TWICE A DAY, 155, cm, 03/17/21 7:53:00 EST, Height, 95.9, kg, 12/05/20 10:08:00 EDT, Dry Weight Start Date: 03/21/21 Status: Ordered Cavilon Emollient topical cream 1 application, Topically, 2 times a day, PRN for dry skin, # 454 Gm, 1 Refills, Maintenance, 09/30/19 16:26:00 EDT, Cream, [facility] 3, 1 application Topically 2 times a day,PRN:for dry skin, 158, cm, 08/27/19 13:02:00 EDT, Height, 76, kg... Start Date: 09/30/19 Status: Ordered cetirizine 10 mg oral tablet 1 tablet = 10 mg, By Mouth, Daily, # 30 tablet, 0 Refills, Maintenance, 12/03/20 13:44:00 EDT, Tablet, [id number] Partial fill upon patient request if the prescription is for a schedule II opioid drug., 158, cm, 12/03/20 13:27:00 EDT, Height,... Start Date: 12/03/20 Status: Ordered Claritin 10 mg oral tablet 10 mg, 1, tablet, By Mouth, Daily, # 15 tablet, Refills 3, Tot. Refills 3, Maintenance, 11/06/18 8:33:38 EDT, Route to Pharmacy Electronically, [id number], [facility] Start Date: 11/06/18 Status: Ordered clindamycin 150 mg oral capsule See Instructions, 3 capsultes 3 times a day, # 45 capsule, 0 Refills, Acute 01/20/22 14:53:00 EST, 03/17/21 14:50:00 EST, Capsule, [facility], Partial fill upon patient request ifthe prescription is for a schedule II opioid drug.,... 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 Start Date: 04/03/21 Stop Date: 04/10/21 Status: Ordered diphenhydrAMINE 25 mg oral tablet 1 tablet = 25 mg, By Mouth, 3 times a day, PRN as needed for itching, Will cause drowsiness, # 30 tablet, 0 Refills, Maintenance, 07/16/20 15:11:00 EDT, Tablet, [facility], Partial fill upon patient request if the prescription is f... Start Date: 07/16/20 Status: Ordered Dovonex 0.005% topical cream 1 applicator, Topically, 2 times a day, # 60 Gm, 5 Refills, Maintenance, 07/07/19 17:30:00 EDT, [facility] 3, 1 applicator Topically 2 times [...] Gm, 0 Refills, Maintenance, 04/27/20 14:35:00 EST, [place], [facility] 3, Partial fill upon patient request if theprescription is for a schedule II opioid drug., 1... Start Date: 04/27/20 Stop Date: 05/27/20 Status: Ordered furosemide 20 mg oral tablet 1, tablet, By Mouth, Daily, # 30 tablet, Refills 3, Tot. Refills 3, Maintenance, 01/20/21 12:45:00 EST, Route to Pharmacy Electronically, [facility]/pharmacy #[id number], 155, cm, 12/05/20 10:08:00 EDT, Height, 95.9, kg, 12/05/20 10:08:00 EDT, Dry Weight Start Date: 01/20/21 Status: Ordered halobetasol 0.05% topical ointment See Instructions, APPLY A THIN FILM TO THE AFFECTED SKIN AND RUB IN GENTLY AND COMPLETELY TWICE A DAY, # 50 Gm, 1 Refills, [id number], 30, APPLY A THIN FILM TO THE AFFECTED SKIN AND RUB IN GENTLY AND COMPLETELY TWICE A DAY, 155, cm, 12/05/20 10:0... Start Date: 03/15/21 Status: Ordered hydrocortisone 1% topical cream 1 application, Topically, 2 times a day, Apply to rash areas, # 60 Gm, 3 Refills, Maintenance, 06/04/19 14:52:00 EDT, Cream, [facility], 1 application Topically 2 times a day,Instr:Apply to rash areas, 158, cm, 12/24/18 10:25:00 EDT, Hei... Start Date: 06/04/19 Status: Ordered ketoconazole 2% topical shampoo See Instructions, APPLY 1 APPLICATOR TOPICALLY 3X PER WEEK, # 120 mL, 3 Refills, [id number], 30, APPLY 1 APPLICATOR TOPICALLY 3X PER [...] 2 Refills, Maintenance, 03/08/21 10:26:00 EST, Cream, [facility]/pharmacy #[id number], Partial fill upon patient request if the prescription is for a schedule II opioid drug., 1 application Topically 3 times a day,... Start Date: 03/08/21 Status: Ordered [place] 0.65% nasal spray 2 sprays, Nares, Both, 4 times a day, # 1 each, 0 Refills, Maintenance, 12/03/20 13:46:00 EDT, [id number] [...] Refills, Soft Stop, 07/27/20 11:50:00 EDT, Cream, [facility], 1 applicationTopically Once,Instr:to skin head to feet, remove b... Start Date: 07/27/20 Status: Ordered predniSONE 20 mg oral tablet See Instructions, 2 tablet By Mouth Dailyfor 3 days then 1 and 1/2 tablets daily for 4 days May fill 04/04/21, # 12 tablet, 0 Refills, Maintenance, 04/03/21 19:02:00 EST, Tablet, [id number] Partial fill upon patient request if the prescriptio... Start Date: 04/03/21 Status: Ordered selenium sulfide 2.5% topical lotion See Instructions, APPLY TOPICALLY TO AFFECTED AREA EVERY DAY FOR 7 DAYS, # 120 mL, 3 Refills, Soft Stop, 03/08/21 10:26:00 EST, [id number] 7, APPLY TOPICALLY TO AFFECTED AREA EVERY DAY FOR 7DAYS, 155, cm, 12/05/20 10:08:00 EDT, Height, 95.9,... Start Date: 03/08/21 Status: Ordered Shingrix intramuscular injection = 0.5 mL, Intramuscular, Once, repeat dose in 2 to 6 months, # 2 each, 0 Refills, Soft Stop, 05/27/20 11:03:00 EDT, Powder, [facility], Partial fill upon patient request if [...] 1 Refills, Maintenance, 03/10/20 18:21:00 EST, Cream, [facility], Partial fill upon patient request if the prescription is fora schedule II opioid drug., 1 application Topically... Start Date: 03/10/20 Status: Ordered Valium 5 mg oral tablet 5 mg, 1, tablet, By Mouth, Daily at bedtime, PRN, # 3 tablet, Refills 0, Tot. Refills 0, Maintenance, Spasm, 04/03/21 11:16:00 EST, Route to Pharmacy Electronically, [facility], Partialfill upon patient request if the prescription is fo... Start Date: 04/03/21 Status: Ordered Problem List Condition Effective Dates Status Health Status Inform ant Anxiety(Confirmed) Active Opioid type dependence, continuous(Confirmed) 1 Active Osteoarthritis of left knee(Confirmed) Active Psoriasis(Confirmed) Active Severe obesity(Confirmed) Active 1Client had been seen by Jazz Francois at [facility]. Client has no-showed to last appt and today.She will be targetted for closing if she does not responde to correspondence that will be sent on 02/14/13 Vital Signs Most recent to oldest [Reference Range]: 1 2 3 Oxygen Saturation [94-100 %] 100 % (04/03/21 11:49 AM) 99 % (04/03/21 10:47 AM) 99 % (04/03/21 10:04 AM) Pulse Rate [55-90 bpm] 89 bpm (04/03/21 11:49 AM) 96 bpm *H* (04/03/21 10:47 AM) 120 bpm *H* (04/03/21 10:04 AM) Blood Pressure [90-138/55-84 mm Hg] 116/71mm Hg (04/03/21 11:49 AM) 139/110mm Hg *H* (04/03/21 10:47 AM) 134/85mm Hg (04/03/21 10:04 AM) Respiratory Rate [16-30 br/min] 18 br/min (04/03/21 11:49 AM) 20 br/min (04/03/21 10:47 AM) 18 br/min (04/03/21 10:04 AM) Temperature [96.8-100.4 DegF] 98.1 DegF (04/03/21 10:04 AM) 100 DegF (04/03/21 10:00 AM) Mode of Delivery (Oxygen) Room air (04/03/21 11:49 AM) Room air (04/03/21 10:47 AM) Room air (04/03/21 10:04 AM) Blood pressure sites Arm, left (04/03/21 11:49 AM) Arm, right (04/03/21 10:47 AM) Arm, right (04/03/21 10:04 AM) Temperature Route Oral (04/03/21 10:04 AM) Social History Social History Type Response Smoking Status 5-9 cigarettes (betw een 1/4 to 1/2 pack)/day in last 30 days entered on: 09/08/20 Sex
--- OUTSIDE RECORDS SUMMARY | 2022-11-03 10:41 | XMS_ITS | Continuity of Care Document ---
Author Name Unknown Organization [facility] Address [address] [place] [address]- Care Team Providers Care Box Spring Maker Name Role Phone Ilya De Leon MD Primary Care Physician Encounter [facility] [place] Date(s): 08/27/20 - 09/26/20 [facility] [address] [place] [address]- Allergies, Adverse Reactions, Alerts Substance Reaction Severity [...] AT [facility] Medications acetaminophen 500 mg oral tablet 2 tablet = 1,000 mg, By Mouth, 3 times a day, PRN as needed for fever, not to exceed 3000 mg/day take scheduled three times a day, # 100 tablet, 1 Refills, Acute 12/26/20 11:44:00 EDT, 09/24/20 11:43:00 EDT, Tablet, [id number], Partial fill u... Start Date: 09/24/20 Stop Date: 12/26/20 Status: Ordered Cavilon Emollient topical cream 1 application, Topically, 2 times a day, PRN for dry skin, # 454 Gm, 1 Refills, Maintenance, 09/30/19 16:26:00 EDT, Cream, [facility], 1 application Topically 2 times a day,PRN:for dry skin, 158, cm, 08/27/19 13:02:00 EDT, Height, 76, kg... Start Date: 09/30/19 Status: Ordered cetirizine 10 mg oral tablet 1 tablet = 10 mg, By Mouth, Daily, for allergies. Do NOT take with claritin, # 30 tablet, 0 Refills, Maintenance, 07/23/20 11:37:00 EDT, Tablet, [facility], Partial fill upon patient request if the prescription is for a schedule II... Start Date: 07/23/20 Stop Date: 08/22/20 Status: Ordered Claritin 10 mg oral tablet 10 mg, 1, tablet, By Mouth, Daily, # 15 tablet, Refills 3, Tot. Refills 3, Maintenance, 11/06/18 8:33:38 EDT, Route to Pharmacy Electronically, [id number], [facility] Start Date: 11/06/18 Status: Ordered clonazePAM 0.5 mg oral tablet 1 tablet = 0.5 mg, By Mouth, Daily, # 28 tablet, 0 Refills, Maintenance, 09/22/20 12:58:00 EDT, Tablet, [facility], Partial fill upon patient request if the prescription is for a schedule II opioid drug., 158, cm, 09/08/20 14:36:00... Start Date: 09/22/20 Status: Ordered diphenhydrAMINE 25 mg oral tablet 1 tablet = 25 mg, By Mouth, 3 times a day, PRN as needed for itching, Will cause drowsiness, # 30 tablet, 0 Refills, Maintenance, 07/16/20 15:11:00 EDT, Tablet, [facility], Partial fill upon patient request if the prescription is f... Start Date: 07/16/20 Status: Ordered Dovonex 0.005% topical cream 1 applicator, Topically, 2 times a day, # 60 Gm, 5 Refills, Maintenance, 07/07/19 17:30:00 EDT, [facility], 1 applicator Topically 2 [...] Gm, 0 Refills, Maintenance, 04/27/20 14:35:00 EST, [place], [facility], Partial fill upon patient request if theprescription is for a schedule II opioid drug., 1... Start Date: 04/27/20 Stop Date: 05/27/20 Status: Ordered furosemide 20 mg oral tablet 20 mg, 1, tablet, By Mouth, Daily, # 30 tablet, Refills 1, Tot. Refills 1, Maintenance, 08/27/20 16:12:00 EDT, Route to Pharmacy Electronically, [facility]/pharmacy #[id number], Partial fill upon patient request if the prescription is for a schedule II opioid drug... Start Date: 08/27/20 Status: Ordered halobetasol 0.05% topical ointment 1 application, Topically, 2 times a day, apply in a thin film to the affected skin and rub in gently and completely, # 50 Gm, 1 Refills, Acute 10/18/20 14:15:00 EDT, 09/24/20 13:11:00 EDT, Ointment, [facility]/pharmacy #[id number], Partial fill upon patient reques... Start Date: 09/24/20 Stop Date: 10/18/20 Status: Ordered hydrocortisone 1% topical cream 1 application, Topically, 2 times a day, Apply to rash areas, # 60 Gm, 3 Refills, Maintenance, 06/04/19 14:52:00 EDT, Cream, [facility], 1 application Topically 2 [...] 12/26/20 11:39:00 EDT, 09/24/20 11:38:00 EDT, Ointment, [facility]/pharmacy #[id number], Partial fill upon patient [...] 2 Refills, Maintenance, 09/14/20 17:22:00 EDT, Cream, [facility]/pharmacy #[id number], Partial fill upon patient [...] Stop, 07/27/20 11:50:00 EDT, Cream, [facility], 1 applicationTopically Once,Instr:to skin head to feet, remove b... Start Date: 07/27/20 Status: Ordered predniSONE 5 mg oral tablet 1 tablet = 5 mg, By Mouth, 3 times a day, # 30 tablet, 0 Refills, Maintenance, 09/14/20 17:20:00 EDT, Tablet, [facility]/pharmacy #[id number], Partial fill upon patient request if the prescription is for a schedule II opioid drug., 158, cm, 09/08/20 14:36:00 EDT,... Start Date: 09/14/20 Stop Date: 09/24/20 Status: Ordered selenium sulfide 2.5% topical lotion See Instructions, APPLY TOPICALLY TO AFFECTED AREA EVERY DAY FOR 7 DAYS, # 120 mL, 3 Refills, Soft Stop, 07/23/20 11:40:00 EDT, [facility], 7, APPLY TOPICALLY TO AFFECTED AREA EVERY DAY FOR 7 DAYS, 158, cm, 07/23/20 11:13:00 EDT, H... Start Date: 07/23/20 Status: Ordered Shingrix intramuscular injection = 0.5 mL, Intramuscular, Once, repeat dose in 2 to 6 months, # 2 each, 0 Refills, Soft Stop, 05/27/20 11:03:00 EDT, Powder, [facility], Partial fill upon patient request if the [...] Refills, Maintenance, 03/10/20 18:21:00 EST, Cream, [facility], Partial fill upon patient [...] 0 Refills, Maintenance, 09/24/20 11:47:00 EDT, Gel, [facility]/pharmacy #[id number], 1 application Topically 4 [...]
--- OUTSIDE RECORDS SUMMARY | 2022-11-03 10:41 | XMS_ITS | Continuity of Care Document ---
Author Name Unknown Organization [facility] Address Unknown Care Team Providers Care Assistant Professor Of Radiology Name Role Phone Ilya De Leon MD Primary Care Physician Encounter [facility] [place] Date(s): 10/07/20 - 11/06/20 [facility] Allergies, Adverse [...] AT [facility] Medications acetaminophen 500 mg oral tablet 2 tablet = 1,000 mg, By Mouth, 3 times a day, PRN as needed for fever, not to exceed 3000 mg/day take scheduled three times a day, # 100 tablet, 1 Refills, Acute 12/26/20 11:44:00 EDT, 09/24/20 11:43:00 EDT, Tablet, [facility]/pharmacy #[id number], Partial fill u... Start Date: 09/24/20 Stop [...] 0 Refills, Maintenance, 07/23/20 11:37:00 EDT, Tablet, [facility], Partial fill upon patient request if the prescription is for a schedule II... Start Date: 07/23/20 Stop Date: 08/22/20 Status: Ordered Claritin 10 mg oral tablet 10 mg, 1, tablet, By Mouth, Daily, # 15 tablet, Refills 3, Tot. Refills 3, Maintenance, 11/06/18 8:33:38 EDT, Route to Pharmacy Electronically, [id number], [facility] Start Date: 11/06/18 Status: Ordered clonazePAM 0.5 mg oral tablet 1 tablet = 0.5 mg, By Mouth, Daily, # 28 tablet, 0 Refills, Maintenance, 10/18/20 11:03:00 EDT, Tablet, [facility], Partial fill upon patient request if the prescription is for a schedule II opioid drug., 158, cm, 10/18/20 10:46:00... Start Date: 10/18/20 Status: Ordered clonazePAM 0.5 mg oral tablet 1 tablet = 0.5 mg, By Mouth, Daily, # 1 tablet, 0 Refills, Maintenance, 10/17/20 9:00:00 EDT, Tablet, [facility], Partial fill upon [...] 0 Refills, Maintenance, 07/16/20 15:11:00 EDT, Tablet, [facility], Partial fill upon patient request if [...] Gm, 0 Refills, Maintenance, 04/27/20 14:35:00 EST, [place], [facility], Partial fill upon patient request if theprescription is for a schedule II opioid drug., 1... Start Date: 04/27/20 Stop Date: 05/27/20 Status: Ordered furosemide 20 mg oral tablet 1, tablet, By Mouth, Daily, # 30 tablet, Refills 3, Tot. Refills 0, Maintenance, 10/21/20 11:22:00 EDT, Route to Pharmacy Electronically, [id number], 158, cm, 10/18/20 10:46:00 EDT, Height, 95.4, kg, 10/16/20 10:11:00 EDT, Dry Weight Start Date: 10/21/20 Status: Ordered hydrocortisone 1% topical cream 1 application, Topically, 2 times a day, Apply to rash areas, # 60 Gm, 3 Refills, Maintenance, 06/04/19 14:52:00 EDT, Cream, [facility], 1 application Topically 2 [...] 12/26/20 11:39:00 EDT, 09/24/20 11:38:00 EDT, Ointment, [facility]/pharmacy #[id number], Partial fill upon patient request if [...] Refills, Soft Stop, 07/27/20 11:50:00 EDT, Cream, [facility], 1 applicationTopically Once,Instr:to skin head to feet, remove b... Start Date: 07/27/20 Status: Ordered predniSONE 5 mg oral tablet 1 tablet = 5 mg, By Mouth, 3 times a day, may fill 10/29/20 for 14 days, # 42 tablet, 0 Refills, Maintenance, 10/29/20 12:47:00 EDT, Tablet, [facility]/pharmacy #[id number], Partial fill upon patient request if the prescription is for a schedule II opioid drug., 15... Start Date: 10/29/20 Stop Date: 11/12/20 Status: Ordered selenium sulfide 2.5% topical lotion See Instructions, APPLY TOPICALLY TO AFFECTED AREA EVERY DAY FOR 7 DAYS, # 120 mL, 3 Refills, Soft Stop, 07/23/20 11:40:00 EDT, [facility], 7, APPLY TOPICALLY TO AFFECTED AREA EVERY DAY FOR 7 DAYS, 158, cm, 07/23/20 11:13:00 EDT, H... Start Date: 07/23/20 Status: Ordered Shingrix intramuscular injection = 0.5 mL, Intramuscular, Once, repeat dose in 2 to 6 months, # 2 each, 0 Refills, Soft Stop, 05/27/20 11:03:00 EDT, Powder, [facility], Partial fill upon patient request if [...] 0 Refills, Maintenance, 09/24/20 11:47:00 EDT, Gel, [facility]/pharmacy #[id number], 1 application Topically 4 times a [...]
--- OUTSIDE RECORDS SUMMARY | 2022-11-03 10:41 | XMS_ITS | Continuity of Care Document ---
Author Name Unknown Organization [facility] Address [address] [place] [address]- Care Team Providers Care Motel Front Desk Clerk Name Role Phone Ilya De Leon MD Primary Care Physician Encounter [facility] Date(s): 03/30/20 - 05/01/20 [facility] [address] [address]- Attending Physician: Ilya De Leon MD Admitting [...] Maintenance, 09/30/19 16:26:00 EDT, Cream, [facility], 1 application Topically 2 times a day,PRN:for dry skin, 158, cm, 08/27/19 13:02:00 EDT, Height, 76, kg... Start Date: 09/30/19 Status: Ordered cetirizine 10 mg oral tablet 1 tablet = 10 mg, By Mouth, Daily, for allergies. Do NOT take with claritin, # 30 tablet, 0 Refills, Maintenance, 04/27/20 14:41:00 EST, Tablet, [facility], Partial fill upon patient request if the prescription is for a schedule II opioi... Start Date: 04/27/20 Stop Date: 05/27/20 Status: Ordered Claritin 10 mg oral tablet 10 mg, 1, tablet, By Mouth, Daily, # 15 tablet, Refills 3, Tot. Refills 3, Maintenance, 11/06/18 8:33:38 EDT, Route to Pharmacy Electronically, [id number], [facility] Start Date: 11/06/18 Status: Ordered clobetasol 0.05% topical ointment 1 application, Topically, 2 times a day, PRN Itch, for 14 days, apply a thin film to highly itchy/uncomfortable areas only, # 60 Gm, 0 Refills, Acute 05/11/20 14:36:00 EST, 04/27/20 14:36:00 EST, Ointment, [facility], Partial fill upon p... Start [...] Refills, Maintenance, 07/07/19 17:30:00 EDT, [facility], 1 applicator Topically 2 [...] Gm, 0 Refills, Maintenance, 04/27/20 14:35:00 EST, [place], [facility], Partial fill upon patient request if theprescription is for a schedule II opioid drug., 1... Start Date: 04/27/20 Stop Date: 05/27/20 Status: Ordered hydrocortisone 1% topical cream 1 application, Topically, 2 times a day, Apply to rash areas, # 60 Gm, 3 Refills, Maintenance, 06/04/19 14:52:00 EDT, Cream, [facility], 1 application Topically 2 [...] 0 Refills, Soft Stop, 04/06/20 14:54:00 EST, [facility], 158, cm, ... Start Date: 04/06/20 Status: Ordered Medrol Dosepak 4 mg oral tablet per label intructions, By Mouth, Once, as on label, # 1 each, 0 Refills, Soft Stop, 08/11/19 20:08:00 EDT, [facility], 158, cm, 12/24/18 10:25:00 [...] 1 Refills, Soft Stop, 04/28/20 14:58:00 EST, [facility], 1 applicator Topically 3x [...] DAYS, # 120 mL, 3 Refills, Maintenance, [facility], 7, APPLY TOPICALLY TO AFFECTED [...] Maintenance, 03/10/20 18:21:00 EST, Cream, [facility], Partial fill upon patient request if [...] Maintenance, 04/06/19 20:19:00 EST, Tablet, [facility], 158, cm, 12/24/18 10:25:00 [...]
--- OUTSIDE RECORDS SUMMARY | 2022-11-03 10:41 | XMS_ITS | Continuity of Care Document ---
Author Name Unknown Organization [facility] Address [address] [place] [id number]- Care Team Providers Care Ict Trainer Name Role Phone Ilya De Leon MD Primary Care Physician Encounter [facility] [place] Date(s): 08/19/20 - 09/19/20 [facility]/[address] [address]- Attending Physician: Ilya De Leon MD Admitting [...] 0 Refills, Maintenance, 07/23/20 11:37:00 EDT, Tablet, [facility], Partial fill upon patient request if the prescription is for a schedule II... Start Date: 07/23/20 Stop Date: 08/22/20 Status: Ordered Claritin 10 mg oral tablet 10 mg, 1, tablet, By Mouth, Daily, # 15 tablet, Refills 3, Tot. Refills 3, Maintenance, 11/06/18 8:33:38 EDT, Route to Pharmacy Electronically, [id number], [facility] Start Date: 11/06/18 Status: Ordered clonazePAM 0.5 mg oral tablet 1 tablet = 0.5 mg, By Mouth, Daily, # 28 tablet, 0 Refills, Maintenance, 08/26/20 14:39:00 EDT, Tablet, [facility], Partial fill upon patient request if the prescription is for a schedule II opioid drug., 158, cm, 08/26/20 14:27:00... Start Date: 08/26/20 Status: Ordered diphenhydrAMINE 25 mg oral tablet 1 tablet = 25 mg, By Mouth, 3 times a day, PRN as needed for itching, Will cause drowsiness, # 30 tablet, 0 Refills, Maintenance, 07/16/20 15:11:00 EDT, Tablet, [facility], Partial fill upon patient request if the prescription is f... Start Date: 07/16/20 Status: Ordered Dovonex 0.005% topical cream 1 applicator, Topically, 2 times a day, # 60 Gm, 5 Refills, Maintenance, 07/07/19 17:30:00 EDT, [facility] 3, 1 applicator Topically 2 [...] Gm, 0 Refills, Maintenance, 04/27/20 14:35:00 EST, [place], [facility], Partial fill upon patient request if theprescription is for a schedule II opioid drug., 1... Start Date: 04/27/20 Stop Date: 05/27/20 Status: Ordered furosemide 20 mg oral tablet 20 mg, 1, tablet, By Mouth, Daily, # 30 tablet, Refills 1, Tot. Refills 1, Maintenance, 08/27/20 16:12:00 EDT, Route to Pharmacy Electronically, [facility]/pharmacy #[id number], Partial fill upon patient request if the prescription is for a schedule II opioid drug... Start Date: 08/27/20 Status: Ordered halobetasol 0.05% topical cream 1 application, Topically, 2 times a day, # 50 Gm, 3 Refills, Maintenance, 08/02/20 12:54:00 EDT, Cream, [facility], Partial fill upon patient request if the prescription is for a schedule II opioid drug., 1 application Topically 2... Start Date: 08/02/20 Status: Ordered hydrocortisone 1% topical cream 1 application, Topically, 2 times a day, Apply to rash areas, # 60 Gm, 3 Refills, Maintenance, 06/04/19 14:52:00 EDT, Cream, [facility] 3, 1 application Topically 2 [...] 2 Refills, Maintenance, 09/14/20 17:22:00 EDT, Cream, [facility]/pharmacy #[id number], Partial fill upon patient request if the prescription is for a schedule II opioid drug., 1 application Topically 3 times a day,... Start Date: 09/14/20 Status: Ordered Nizoral 2% topical shampoo See Instructions, 1 applicator Topically 3x per week, # 120 mL, 3 Refills, Soft Stop, 08/12/20 10:30:00 EDT, [facility]/pharmacy #[id number], 1 applicator Topically 3x per week, 158, cm, 07/23/20 11:13:00 EDT, Height, 82, kg, 07/21/20 20:18:00 EDT, Dry Weight Start Date: 08/12/20 Status: Ordered permethrin 5% topical cream 1 application, Topically, Once, to skin head to feet, remove by washing after 8 to 14 hours, # 60 Gm, 0 Refills, Soft Stop, 07/27/20 11:50:00 EDT, Cream, [facility], 1 applicationTopically Once,Instr:to skin head to feet, remove b... Start Date: 07/27/20 Status: Ordered predniSONE 5 mg oral tablet 1 tablet = 5 mg, By Mouth, 3 times a day, # 30 tablet, 0 Refills, Maintenance, 09/14/20 17:20:00 EDT, Tablet, [facility]/pharmacy #[id number], Partial fill upon patient request if the prescription is for a schedule II opioid drug., 158, cm, 09/08/20 14:36:00 EDT,... Start Date: 09/14/20 Stop Date: 09/24/20 Status: Ordered selenium sulfide 2.5% topical lotion See Instructions, APPLY TOPICALLY TO AFFECTED AREA EVERY DAY FOR 7 DAYS, # 120 mL, 3 Refills, Soft Stop, 07/23/20 11:40:00 EDT, [facility], 7, APPLY TOPICALLY TO AFFECTED AREA EVERY DAY FOR 7 DAYS, 158, cm, 07/23/20 11:13:00 EDT, H... Start Date: 07/23/20 Status: Ordered Shingrix intramuscular injection = 0.5 mL, Intramuscular, Once, repeat dose in 2 to 6 months, # 2 each, 0 Refills, Soft Stop, 05/27/20 11:03:00 EDT, Powder, [facility], Partial fill upon patient request if the [...] 1 Refills, Maintenance, 03/10/20 18:21:00 EST, Cream, [facility] 3, Partial fill [...] 0 Refills, Maintenance, 07/23/20 11:37:00 EDT, Gel, [facility], 1 application Topically 4 times a day, [...]
--- OUTSIDE RECORDS SUMMARY | 2022-11-03 10:41 | XMS_ITS | Continuity of Care Document ---
Author Name Unknown Organization [facility] Address Unknown Care Team Providers Care Waiter/Waitress First Class Name Role Phone Ilya De Leon MD Primary Care Physician Encounter [facility] Date(s): 10/15/20 - 12/19/20 [facility] Attending Physician: Ilya De Leon MD Admitting [...] Maintenance, 09/30/19 16:26:00 EDT, Cream, [facility], 1 application Topically 2 times a day,PRN:for dry skin, 158, cm, 08/27/19 13:02:00 EDT, Height, 76, kg... Start Date: 09/30/19 Status: Ordered cetirizine 10 mg oral tablet 1 tablet = 10 mg, By Mouth, Daily, # 30 tablet, 0 Refills, Maintenance, 12/03/20 13:44:00 EDT, [id number] fill upon patient request if the prescription is for a schedule II opioid drug., 158, cm, 12/03/20 13:27:00 EDT, Height,... Start Date: 12/03/20 Status: Ordered Claritin 10 mg oral tablet 10 mg, 1, tablet, By Mouth, Daily, # 15 tablet, Refills 3, Tot. Refills 3, Maintenance, 11/06/18 8:33:38 EDT, Route to Pharmacy Electronically, [id number], [facility] Start Date: 11/06/18 Status: Ordered clonazePAM 0.5 mg oral tablet 1 tablet = 0.5 mg, By Mouth, Daily, # 1 tablet, 0 Refills, Maintenance, 10/17/20 9:00:00 EDT, Tablet, [facility], Partial fill upon patient request if the prescription is for a scheduleII opioid drug., 158, cm, 09/24/20 10:45:00 EDT, He... Start Date: 10/17/20 Stop Date: 10/18/20 Status: Ordered clonazePAM 0.5 mg oral tablet 1 tablet = 0.5 mg, By Mouth, Daily, Early refill for lost medication, # 10 tablet, 0 Refills, Maintenance, 12/07/20 14:44:00 EDT, [id number] Partial fill upon patient request if the prescription is for a schedule II opioid drug., 155,... Start Date: 12/07/20 Stop Date: 12/17/20 Status: Ordered diphenhydrAMINE 25 mg oral tablet 1 tablet = 25 mg, By Mouth, 3 times a day, PRN as needed for itching, Will cause drowsiness, # 30 tablet, 0 Refills, Maintenance, 07/16/20 15:11:00 EDT, Tablet, [facility], Partial fill upon patient request if the prescription is f... Start Date: 07/16/20 Status: Ordered Dovonex 0.005% topical cream 1 applicator, Topically, 2 times a day, # 60 Gm, 5 Refills, Maintenance, 07/07/19 17:30:00 EDT, [facility], 1 applicator Topically 2 [...] Gm, 0 Refills, Maintenance, 04/27/20 14:35:00 EST, [place], [facility], Partial fill upon patient request if theprescription is for a schedule II opioid drug., 1... Start Date: 04/27/20 Stop Date: 05/27/20 Status: Ordered furosemide 20 mg oral tablet 1, tablet, By Mouth, Daily, # 30 tablet, Refills 3, Tot. Refills 0, Maintenance, 10/21/20 11:22:00 EDT, Route to Pharmacy Electronically, [id number], 158, cm, 10/18/20 10:46:00 EDT, Height, 95.4, kg, 10/16/20 10:11:00 EDT, Dry Weight Start Date: 10/21/20 Status: Ordered halobetasol 0.05% topical ointment See Instructions, APPLY A THIN FILM TO THE AFFECTED SKIN AND RUB IN GENTLY AND COMPLETELY TWICE A DAY, # 50 Gm, 1 Refills, [id number], 30, APPLY A THIN FILM TO THE AFFECTED SKIN AND RUB IN GENTLY AND COMPLETELY TWICE A DAY, 158, cm, 10/18/20 10:4... Start Date: 12/02/20 Status: Ordered hydrocortisone 1% topical cream 1 application, Topically, 2 times a day, Apply to rash areas, # 60 Gm, 3 Refills, Maintenance, 06/04/19 14:52:00 EDT, Cream, [facility], 1 application Topically 2 times a day,Instr:Apply to rash areas, 158, cm, 12/24/18 10:25:00 EDT, Hei... Start Date: 06/04/19 Status: Ordered ketoconazole 2% topical shampoo See Instructions, APPLY 1 APPLICATOR TOPICALLY 3X PER WEEK, # 120 mL, 3 Refills, [id number], 30, APPLY 1 APPLICATOR TOPICALLY 3X PER [...] 12/26/20 11:39:00 EDT, 09/24/20 11:38:00 EDT, Ointment, [facility]acy #[id number], Partial fill upon patient request [...] 2 Refills, Maintenance, 12/17/20 15:28:00 EDT, Cream, [facility]/pharmacy #[id number], Partial fill upon patient request if the prescription is for a schedule II opioid drug., 1 application Topically 3 times a day,... Start Date: 12/17/20 Status: Ordered Mccracken 0.65% nasal spray 2 sprays, Nares, Both, 4 times a day, # 1 each, 0 Refills, Maintenance, 12/03/20 13:46:00 EDT, [id number] fill upon patient request [...] Refills, Soft Stop, 07/27/20 11:50:00 EDT, Cream, [facility], 1 applicationTopically Once,Instr:to skin head to feet, remove b... Start Date: 07/27/20 Status: Ordered predniSONE 5 mg oral tablet 1 tablet = 5 mg, By Mouth, 3 times a day, may fill 12/17/20 for 14 days, # 42 tablet, 0 Refills, Maintenance, 12/17/20 15:28:00 EDT, Tablet, [id number] Partial fill upon patient request if the prescription is for a schedule II opioid drug., 15... Start Date: 12/17/20 Stop Date: 12/31/20 Status: Ordered selenium sulfide 2.5% topical lotion See Instructions, APPLY TOPICALLY TO AFFECTED AREA EVERY DAY FOR 7 DAYS, # 120 mL, 3 Refills, Soft Stop, 07/23/20 11:40:00 EDT, [facility], 7, APPLY TOPICALLY TO AFFECTED [...] 1 Refills, Maintenance, 03/10/20 18:21:00 EST, Cream, [facility], Partial fill upon patient [...] 0 Refills, Maintenance, 09/24/20 11:47:00 EDT, Gel, [facility]/pharmacy #[id number], 1 application Topically 4 times a day,Instr:for knee pain, 158, cm, 09/24/20 10:45:00 EDT, Height, 82, kg, 07/21/... Start Date: 09/24/20 Status: Ordered Problem List Condition Effective Dates Status Health Status Inform ant Anxiety(Confirmed) Active Opioid type dependence, continuous(Confirmed) 1 Active Osteoarthritis of left knee(Confirmed) Active Psoriasis(Confirmed) Active 1Client had been seen by Jazz Francois at [facility]. Client has no-showed to last appt and today.She will be targetted for closing if she does not responde to correspondence that will be sent on 02/14/13 Social History Social History Type Response Smoking Status 5-9 cigarettes (betw een 1/4 to 1/2 pack)/day in last 30 days entered on: 09/08/20 Sex
--- OUTSIDE RECORDS SUMMARY | 2022-11-03 10:41 | XMS_ITS | Continuity of Care Document ---
Author Name Unknown Organization [facility] Address [address] [place] [id number]- Care Team Providers Care Eyeglass Assembler Name Role Phone Iyla De Leon MD Primary Care Physician [place] [facility] [place] 07/21/20 - 07/21/[address] [address]- Encounter Diagnosis Psoriasis(Final) - 07/21/20 Discharge Disposition: A-D/C Home Attending Physician: Kaley Walton MD Admitting Physician: Kaley Walton MD Referring Physician: Not on Staff, Referring [...] 0 Refills, Maintenance, 04/27/20 14:41:00 EST, Tablet, [facility], Partial fill upon patient request if the prescription is for a schedule II opioi... Start Date: 04/27/20 Stop Date: 05/27/20 Status: Ordered Claritin 10 mg oral tablet 10 mg, 1, tablet, By Mouth, Daily, # 15 tablet, Refills 3, Tot. Refills 3, Maintenance, 11/06/18 8:33:38 EDT, Route to Pharmacy Electronically, [id number], [facility] Start Date: 11/06/18 Status: Ordered diphenhydrAMINE 25 mg oral tablet 1 tablet = 25 mg, By Mouth, 3 times a day, PRN as needed for itching, Will cause drowsiness, # 30 tablet, 0 Refills, Maintenance, 07/16/20 15:11:00 EDT, Tablet, [facility], Partial fill upon patient request if the prescription is f... Start Date: 07/16/20 Status: Ordered Dovonex 0.005% topical cream 1 applicator, Topically, 2 times a day, # 60 Gm, 5 Refills, Maintenance, 07/07/19 17:30:00 EDT, [facility] 3, 1 applicator Topically 2 times [...] 0 Refills, Maintenance, 04/27/20 14:35:00 EST, [place], [facility], Partial fill upon patient request if theprescription is for a schedule II opioid drug., 1... Start Date: 04/27/20 Stop Date: 05/27/20 Status: Ordered hydrocortisone 1% topical cream 1 application, Topically, 2 times a day, Apply to rash areas, # 60 Gm, 3 Refills, Maintenance, 06/04/19 14:52:00 EDT, Cream, [facility], 1 application Topically 2 times a [...] 0 Refills, Soft Stop, 07/07/20 13:01:00 EDT, [facility], 158, cm, 06/23/20 13:26:00 EDT... Start Date: 07/07/20 Status: Ordered Methadone By Mouth, 0 Refills, Maintenance Start Date: 12/25/11 Status: Ordered mupirocin 2% topical ointment 1 application, Topically, 3 times a day, for 7 days, For lesion on right upper arm, # 22 Gm, 0 Refills, Acute 07/23/20 15:06:00 EDT, 07/16/20 15:06:00 EDT, [facility], Partial fill upon patient request if the prescription is for a... Start Date: 07/16/20 Stop Date: 07/23/20 Status: Ordered Nizoral 2% topical shampoo See Instructions, 1 applicator Topically 3x per week, # 120 mL, 10 Refills, Soft Stop, 05/13/20 11:05:00 EST, [facility], 1 applicator Topically 3x per week, 158, cm, 05/10/20 11:36:00 EST, Height, 76, kg, 04/12/19 15:31:00 EST, Dry Weight Start Date: 05/13/20 Status: Ordered oxyCODONE 5 mg oral tablet 5 mg, 1, tablet, By Mouth, Every 6 hours, PRN, # 4 tablet, Refills 0, Tot. Refills 0, Maintenance, Pain , Severe, 06/26/20 10:50:00 EDT, Route to Pharmacy Electronically, [facility], Partial fill upon patient request if [...] tablet, 0 Refills, Maintenance, 07/13/20 11:13:00 EDT, [facility], Partial fill upon patient request if the prescription is for a schedule II opioid drug., 158, cm, 06/23/20 13:26:00... Start Date: 07/13/20 Status: Ordered predniSONE 5 mg oral tablet 1 tablet = 5 mg, By Mouth, Daily, For psoriasis Take with food, # 14 tablet, 0 Refills, Maintenance, 07/16/20 15:03:00 EDT, Tablet, [facility], Partial fill upon patient request if the prescription is for a schedule II opioid drug... Start Date: 07/16/20 Stop Date: 07/30/20 Status: Ordered selenium sulfide 2.5% topical lotion See Instructions, APPLY TOPICALLY TO AFFECTED AREA EVERY DAY FOR 7 DAYS, # 120 mL, 3 Refills, Maintenance, [facility], 7, APPLY TOPICALLY TO AFFECTED AREA EVERY DAY FOR 7 DAYS, 158, cm, 06/23/20 13:26:00 EDT, Height, 91, kg, 07/01/20 13:48:00 E... Start Date: 07/13/20 Status: Ordered Shingrix intramuscular injection = 0.5 mL, Intramuscular, Once, repeat dose in 2 to 6 months, # 2 each, 0 Refills, Soft Stop, 05/27/20 11:03:00 EDT, Powder, [facility], Partial fill upon patient request [...] 1 Refills, Maintenance, 03/10/20 18:21:00 EST, Cream, [facility], Partial fill upon patient request if [...] oldest [Reference Range]: 1 2 3 Weight 82 kg (07/21/20 8:18 PM) 82 kg (07/21/20 11:53 AM) Oxygen Saturation [94-100 %] 100 % (07/21/20 8:18 PM) 98 % (07/21/20 11:53 AM) 100 % (07/21/20 11:47 AM) Pulse Rate [55-90 bpm] 82 bpm (07/21/20 8:18 PM) 82 bpm (07/21/20 11:53 AM) 89 bpm (07/21/20 11:47 AM) Blood Pressure [90-138/55-84 mm Hg] 148/92mm Hg *H* (07/21/20 8:18 PM) 134/70mm Hg (07/21/20 11:53 AM) Respiratory Rate [16-30 br/min] 20 br/min (07/21/20 8:18 PM) 16 br/min (07/21/20 11:53 AM) Temperature [96.8-100.4 DegF] 97.8 DegF (07/21/20 8:18 PM) 98.4 DegF (07/21/20 11:53 AM) Mode of Delivery (Oxygen) Room air (07/21/20 8:18 PM) Room air (07/21/20 11:53 AM) Room air (07/21/20 11:47 AM) Blood pressure sites Arm, left (07/21/20 11:53 AM) Temperature Route Oral (07/21/20 8:18 PM) Oral (07/21/20 11:53 AM) Dry Weight 82 kg (07/21/20 8:18 PM) 82 kg (07/21/20 11:53 AM) Social History Social History Type Response Tobacco Use: 4 or less cigar ettes(less than 1/4 pack)/day in last 30 days. Sex
--- OUTSIDE RECORDS SUMMARY | 2022-11-03 10:41 | XMS_ITS | Continuity of Care Document ---
Author Name Unknown Organization [facility] Address [address] [place] [address]- Care Team Providers Care Dining Car Conductor Name Role Phone Ilya De Leon MD Primary Care Physician [place] [facility] Date(s): 09/15/20 - 10/15/20 [facility]/[address] [address]- Allergies, Adverse Reactions, Alerts Substance Reaction Severity [...] MULTIDOSE ADMINISTERED AT [facility] Medications acetaminophen 500 mg oral tablet 2 tablet = 1,000 mg, By Mouth, 3 times a day, PRN as needed for fever, not to exceed 3000 mg/day take scheduled three times a day, # 100 tablet, 1 Refills, Acute 12/26/20 11:44:00 EDT, 09/24/20 11:43:00 EDT, Tablet, [id number], Partial fill u... Start Date: 09/24/20 Stop [...] 0 Refills, Maintenance, 07/23/20 11:37:00 EDT, Tablet, [facility], Partial fill upon patient request if the prescription is for a schedule II... Start Date: 07/23/20 Stop Date: 08/22/20 Status: Ordered Claritin 10 mg oral tablet 10 mg, 1, tablet, By Mouth, Daily, # 15 tablet, Refills 3, Tot. Refills 3, Maintenance, 11/06/18 8:33:38 EDT, Route to Pharmacy Electronically, [id number], [facility] Start Date: 11/06/18 Status: Ordered clonazePAM 0.5 mg oral tablet 1 tablet = 0.5 mg, By Mouth, Daily, # 28 tablet, 0 Refills, Maintenance, 09/22/20 12:58:00 EDT, Tablet, [facility], [...] Gm, 5 Refills, Maintenance, 07/07/19 17:30:00 EDT, [facility], 1 applicator Topically 2 [...] Gm, 0 Refills, Maintenance, 04/27/20 14:35:00 EST, [place], [facility], Partial fill upon patient request if theprescription is for a schedule II opioid drug., 1... Start Date: 04/27/20 Stop Date: 05/27/20 Status: Ordered furosemide 20 mg oral tablet 20 mg, 1, tablet, By Mouth, Daily, # 30 tablet, Refills 1, Tot. Refills 1, Maintenance, 08/27/20 16:12:00 EDT, Route to Pharmacy Electronically, [facility]/pharmacy #[id number], Partial fill upon patient request if the prescription is for a schedule II opioid drug... Start Date: 08/27/20 Status: Ordered halobetasol 0.05% topical ointment 1 application, Topically, 2 times a day, apply in a thin film to the affected skin and rub in gently and completely, # 50 Gm, 1 Refills, Acute 10/18/20 14:15:00 EDT, 09/24/20 13:11:00 EDT, Ointment, [facility]/pharmacy #[id number], Partial fill upon patient reques... Start Date: 09/24/20 Stop Date: 10/18/20 Status: Ordered hydrocortisone 1% topical cream 1 application, Topically, 2 times a day, Apply to rash areas, # 60 Gm, 3 Refills, Maintenance, 06/04/19 14:52:00 EDT, Cream, [facility], 1 application Topically 2 [...] 12/26/20 11:39:00 EDT, 09/24/20 11:38:00 EDT, Ointment, [facility]/pharmacy #[id number], Partial fill upon [...] 2 Refills, Maintenance, 09/14/20 17:22:00 EDT, Cream, [facility]/pharmacy #[id number], Partial fill upon [...] 0 Refills, Maintenance, 10/15/20 13:08:00 EDT, Tablet, [facility], Partial fill upon patient request if the prescription is for a schedule II opioid drug., 158, cm, 09/24/20 10... Start Date: 10/15/20 Stop Date: 10/22/20 Status: Ordered predniSONE 5 mg oral tablet 1 tablet = 5 mg, By Mouth, 3 times a day, # 21 tablet, 0 Refills, Maintenance, 10/06/20 15:03:00 EDT, Tablet, [facility]/pharmacy #[id number], Partial fill upon [...] 1 Refills, Maintenance, 03/10/20 18:21:00 EST, Cream, [facility], Partial fill upon patient [...] 0 Refills, Maintenance, 09/24/20 11:47:00 EDT, Gel, [facility]/pharmacy #[id number], 1 application Topically 4 [...]
--- OUTSIDE RECORDS SUMMARY | 2022-11-03 10:41 | XMS_ITS | Continuity of Care Document ---
Author Name Unknown Organization [facility] Address Unknown Care Team Providers Care Therapeutic Recreation Specialist Name Role Phone Ilya De Leon MD Primary Care Physician [place] [facility] [place](s): 12/01/20 - 12/31/20 [facility] Allergies, Adverse Reactions, Alerts Substance Reaction Severity [...] MULTIDOSE ADMINISTERED AT [facility] Medications Cavilon Emollient topical cream 1 application, Topically, 2 times a day, PRN for dry skin, # 454 Gm, 1 Refills, Maintenance, 09/30/19 16:26:00 EDT, Cream, [facility], 1 application Topically 2 times a day,PRN:for dry skin, 158, cm, 08/27/19 13:02:00 EDT, Height, 76, kg... Start Date: 09/30/19 Status: Ordered cetirizine 10 mg oral tablet 1 tablet = 10 mg, By Mouth, Daily, # 30 tablet, 0 Refills, Maintenance, 12/03/20 13:44:00 EDT, Tablet, [facility]acy #[id number], Partial fill upon patient request if the prescription is for a schedule II opioid drug., 158, cm, 12/03/20 13:27:00 EDT, Height,... Start Date: 12/03/20 Status: Ordered Claritin 10 mg oral tablet 10 mg, 1, tablet, By Mouth, Daily, # 15 tablet, Refills 3, Tot. Refills 3, Maintenance, 11/06/18 8:33:38 EDT, Route to Pharmacy Electronically, [id number], [facility] Start Date: 11/06/18 Status: Ordered clonazePAM 0.5 mg oral tablet 1 tablet = 0.5 mg, By Mouth, Daily, [employer] checked, # 28 tablet, 0 Refills, Maintenance, 12/24/20 11:42:00 EDT, [id number] upon [...] 0 Refills, Maintenance, 07/16/20 15:11:00 EDT, Tablet, [facility], Partial fill upon patient request [...] Gm, 0 Refills, Maintenance, 04/27/20 14:35:00 EST, [place], [facility], Partial fill upon patient request if theprescription is for a schedule II opioid drug., 1... Start Date: 04/27/20 Stop Date: 05/27/20 Status: Ordered furosemide 20 mg oral tablet 1, tablet, By Mouth, Daily, # 30 tablet, Refills 3, Tot. Refills 0, Maintenance, 10/21/20 11:22:00 EDT, Route to Pharmacy Electronically, [id number], 158, cm, 10/18/20 10:46:00 EDT, Height, 95.4, kg, 10/16/20 10:11:00 EDT, Dry Weight Start Date: 10/21/20 Status: Ordered halobetasol 0.05% topical ointment See Instructions, APPLY A THIN FILM TO THE AFFECTED SKIN AND RUB IN GENTLY AND COMPLETELY TWICE A DAY, # 50 Gm, 1 Refills, [facility] [id number], 30, APPLY A THIN FILM TO THE AFFECTED SKIN AND RUB IN GENTLY AND COMPLETELY TWICE A DAY, 158, cm, 10/18/20 10:4... Start Date: 12/02/20 Status: Ordered hydrocortisone 1% topical cream 1 application, Topically, 2 times a day, Apply to rash areas, # 60 Gm, 3 Refills, Maintenance, 06/04/19 14:52:00 EDT, Cream, [facility], 1 application Topically 2 times a day,Instr:Apply to rash areas, 158, cm, 12/24/18 10:25:00 EDT, Hei... Start Date: 06/04/19 Status: Ordered ketoconazole 2% topical shampoo See Instructions, APPLY 1 APPLICATOR TOPICALLY 3X PER WEEK, # 120 mL, 3 Refills, [facility] [id number], 30, APPLY 1 APPLICATOR TOPICALLY 3X PER [...] 2 Refills, Maintenance, 12/17/20 15:28:00 EDT, Cream, [facility]acy #[id number], Partial fill upon patient request if the prescription is for a schedule II opioid drug., 1 application Topically 3 times a day,... Start Date: 12/17/20 Status: Ordered Crescent 0.65% nasal spray 2 sprays, Nares, Both, 4 times a day, # 1 each, 0 Refills, Maintenance, 12/03/20 13:46:00 EDT, [facility]/pharmacy #[id number], Partial fill upon [...] EDT, Cream, [facility], 1 applicationTopically Once,Instr:to skin head to feet, remove b... Start Date: 07/27/20 Status: Ordered predniSONE 5 mg oral tablet 1 tablet = 5 mg, By Mouth, 3 times a day, may fill 12/17/20 for 14 days, # 42 tablet, 0 Refills, Maintenance, 12/17/20 15:28:00 EDT, Tablet, [facility]/pharmacy #[id number], Partial fill upon patient request if the prescription is for a schedule II opioid drug., 15... Start Date: 12/17/20 Stop Date: 12/31/20 Status: Ordered selenium sulfide 2.5% topical lotion See Instructions, APPLY TOPICALLY TO AFFECTED AREA EVERY DAY FOR 7 DAYS, # 120 mL, 3 Refills, Soft Stop, 07/23/20 11:40:00 EDT, [facility], 7, APPLY TOPICALLY TO AFFECTED AREA EVERY DAY FOR 7 DAYS, 158, cm, 07/23/20 11:13:00 EDT, H... Start Date: 07/23/20 Status: Ordered Shingrix intramuscular injection = 0.5 mL, Intramuscular, Once, repeat dose in 2 to 6 months, # 2 each, 0 Refills, Soft Stop, 05/27/20 11:03:00 EDT, Powder, [facility], Partial fill upon patient request [...]
--- OUTSIDE RECORDS SUMMARY | 2022-11-03 10:41 | XMS_ITS | Continuity of Care Document ---
Author Name Unknown Organization [facility] [email or web address] Address [address] [place] [address], [address] [place] [address]- Care Team Providers Care Manager Portable Name Role Phone Ilya De Leon MD Primary Care Phys[id number]16/19 [facility] [employer] Staff Ranker [address] [facility], [address] [place] [address]- Attending Physician: Ozzy NEWMAN, Peyton Pruitt Referring Physician: Ilya De Leon MD Allergies, [...] 01/30/11 Gi lizbeth 1Admin Note: ADMIN BY [facility] 2Admin Note: FLUVIRIN MULTIDOSE ADMINISTERED AT [facility] Medications Cavilon Emollient topical cream 1 application, Topically, 2 times a day, PRN for dry skin, # 454 Gm, 0 Refills, Maintenance, 10/27/18 16:13:42 EDT, Cream Start Date: 10/27/18 Status: Ordered Claritin 10 mg oral tablet 10 mg, 1, tablet, By Mouth, Daily, # 15 tablet, Refills 3, Tot. Refills 3, Maintenance, 11/06/18 8:33:38 EDT, Route to Pharmacy Electronically, [id number], [facility] Start Date: 11/06/18 Status: Ordered Dovonex [...] 0 Refills, Soft Stop, 03/24/19 13:42:00 EST, [facility], 158, cm, 12/24/18 10:25:00 EDT... [...] DAYS, # 120 mL, 3 Refills, Maintenance, [facility], 7, APPLY TOPICALLY TO [...] 0 Refills, Maintenance, 04/06/19 20:19:00 EST, Tablet, [facility], 158, cm, 12/24/18 [...]
--- OUTSIDE RECORDS SUMMARY | 2022-11-03 10:42 | XMS_ITS | Continuity of Care Document ---
Author Name Unknown Organization [facility] Address [address] [place] [address]- Care Team Providers Care Lending Advisor Name Role Phone Haley NEWMAN, Ilya Primary Care Physician Encounter [facility] Date(s): 07/06/20 - 08/05/20 [facility]/[address] [address]- Allergies, Adverse Reactions, Alerts Substance Reaction Severity [...] [facility] Medications Cavilon Emollient topical cream 1 application, Topically, 2 times a day, PRN for dry skin, # 454 Gm, 1 Refills, Maintenance, 09/30/19 16:26:00 EDT, Cream, [facility], 1 application Topically 2 times a day,PRN:for dry skin, 158, cm, 08/27/19 13:02:00 EDT, Height, 76, kg... Start Date: 09/30/19 Status: Ordered cetirizine 10 mg oral tablet 1 tablet = 10 mg, By Mouth, Daily, for allergies. Do NOT take with claritin, # 30 tablet, 0 Refills, Maintenance, 07/23/20 11:37:00 EDT, Tablet, [facility], Partial fill upon patient request if the prescription is for a schedule II... Start Date: 07/23/20 Stop Date: 08/22/20 Status: Ordered Claritin 10 mg oral tablet 10 mg, 1, tablet, By Mouth, Daily, # 15 tablet, Refills 3, Tot. Refills 3, Maintenance, 11/06/18 8:33:38 EDT, Route to Pharmacy Electronically, [id number], [facility] Start Date: 11/06/18 Status: Ordered diphenhydrAMINE 25 mg oral tablet 1 tablet = 25 mg, By Mouth, 3 times a day, PRN as needed for itching, Will cause drowsiness, # 30 tablet, 0 Refills, Maintenance, 07/16/20 15:11:00 EDT, Tablet, [facility], Partial fill upon patient request if the prescription is f... Start Date: 07/16/20 Status: Ordered Dovonex 0.005% topical cream 1 applicator, Topically, 2 times a day, # 60 Gm, 5 Refills, Maintenance, 07/07/19 17:30:00 EDT, [facility] 3, 1 applicator Topically 2 [...] Gm, 0 Refills, Maintenance, 04/27/20 14:35:00 EST, [place], [facility], Partial fill upon patient request if theprescription is for a schedule II opioid drug., 1... Start Date: 04/27/20 Stop Date: 05/27/20 Status: Ordered halobetasol 0.05% topical cream 1 application, Topically, 2 times a day, # 50 Gm, 3 Refills, Maintenance, 08/02/20 12:54:00 EDT, Cream, [facility], Partial fill upon patient request if the prescription is for a schedule II opioid drug., 1 application Topically 2... Start Date: 08/02/20 Status: Ordered hydrocortisone 1% topical cream 1 application, Topically, 2 times a day, Apply to rash areas, # 60 Gm, 3 Refills, Maintenance, 06/04/19 14:52:00 EDT, Cream, [facility] 3, 1 application Topically 2 [...] 0 Refills, Soft Stop, 07/07/20 13:01:00 [facility], 158, cm, 06/23/20 13:26:00 EDT... Start Date: 07/07/20 Status: Ordered Methadone By Mouth, 0 Refills, Maintenance Start Date: 12/25/11 Status: Ordered Nizoral 2% topical shampoo See Instructions, 1 applicator Topically 3x per week, # 120 mL, 10 Refills, Soft Stop, 05/13/20 11:05:00 EST, [facility] 3, 1 applicator Topically 3x [...] tablet, 0 Refills, Maintenance, 07/28/20 9:46:00 EDT, [facility], Partial fillupon patient request if the prescription is for a s... Start Date: 07/28/20 Status: Ordered selenium sulfide 2.5% topical lotion See Instructions, APPLY TOPICALLY TO AFFECTED AREA EVERY DAY FOR 7 DAYS, # 120 mL, 3 Refills, Soft Stop, 07/23/20 11:40:00 EDT, [facility], 7, APPLY TOPICALLY TO AFFECTED AREA EVERY DAY FOR 7 DAYS, 158, cm, 07/23/20 11:13:00 EDT, H... Start Date: 07/23/20 Status: Ordered Shingrix intramuscular injection = 0.5 mL, Intramuscular, Once, repeat dose in 2 to 6 months, # 2 each, 0 Refills, Soft Stop, 05/27/20 11:03:00 EDT, Powder, [facility], Partial fill upon patient [...] 03/10/20 18:21:00 EST, Cream, [facility] 3, Partial fill upon patient [...] 0 Refills, Maintenance, 07/23/20 11:37:00 EDT, Gel, [facility], 1 application Topically 4 times a [...]
--- OUTSIDE RECORDS SUMMARY | 2022-11-03 10:42 | XMS_ITS | Continuity of Care Document ---
Author Name Unknown Organization [facility] Address Unknown Care Team Providers Care Card Services Specialist Name Role Phone Ilya De Leon MD Primary Care Physician Encounter [facility] Date(s): 12/13/20 - 01/12/21 [facility] Allergies, Adverse Reactions, Alerts [...] Refills, Maintenance, 12/03/20 13:44:00 EDT, Tablet, [facility]/pharmacy #[id number], Partial fill upon patient request if the prescription is for a schedule II opioid drug., 158, cm, 12/03/20 13:27:00 EDT, Height,... Start Date: 12/03/20 Status: Ordered Claritin 10 mg oral tablet 10 mg, 1, tablet, By Mouth, Daily, # 15 tablet, Refills 3, Tot. Refills 3, Maintenance, 11/06/18 8:33:38 EDT, Route to Pharmacy Electronically, [id number], [facility] Start Date: 11/06/18 Status: Ordered clonazePAM 0.5 mg oral tablet 1 tablet = 0.5 mg, By Mouth, Daily, FOOD SERVICE DIRECTOR checked, # 28 tablet, 0 Refills, Maintenance, 12/24/20 11:42:00 EDT, [facility], [id number] Partial fill upon patient request if the prescription is for aschedule II opioid drug., 155, cm, 12/05/20 10:08:0... Start Date: 12/24/20 Stop Date: 01/21/21 Status: Ordered diphenhydrAMINE 25 mg oral tablet 1 tablet = 25 mg, By Mouth, 3 times a day, PRN as needed for itching, Will cause drowsiness, # 30 tablet, 0 Refills, Maintenance, 07/16/20 15:11:00 EDT, Tablet, [facility], Partial fill upon patient request if the prescription is f... Start Date: 07/16/20 Status: Ordered Dovonex 0.005% topical cream 1 applicator, Topically, 2 times a day, # 60 Gm, 5 Refills, Maintenance, 07/07/19 17:30:00 EDT, [facility] 3, 1 applicator Topically [...] Gm, 0 Refills, Maintenance, 04/27/20 14:35:00 EST, [place], [facility], Partial fill upon patient request if theprescription is for a schedule II opioid drug., 1... Start Date: 04/27/20 Stop Date: 05/27/20 Status: Ordered furosemide 20 mg oral tablet 1, tablet, By Mouth, Daily, # 30 tablet, Refills 3, Tot. Refills 0, Maintenance, 10/21/20 11:22:00 EDT, Route to Pharmacy Electronically, [id number], 158, cm, 10/18/20 10:46:00 EDT, Height, 95.4, kg, 10/16/20 10:11:00 EDT, Dry Weight Start Date: 10/21/20 Status: Ordered halobetasol 0.05% topical ointment See Instructions, APPLY A THIN FILM TO THE AFFECTED SKIN AND RUB IN GENTLY AND COMPLETELY TWICE A DAY, # 50 Gm, 1 Refills, [facility] [id number], 30, APPLY A THIN FILM TO THE AFFECTED SKIN AND RUB IN GENTLY AND COMPLETELY TWICE A DAY, 158, cm, 10/18/20 10:4... Start Date: 12/02/20 Status: Ordered hydrocortisone 1% topical cream 1 application, Topically, 2 times a day, Apply to rash areas, # 60 Gm, 3 Refills, Maintenance, 06/04/19 14:52:00 EDT, Cream, [facility], 1 application Topically 2 times a day,Instr:Apply to rash areas, 158, cm, 12/24/18 10:25:00 EDT, Hei... Start Date: 06/04/19 Status: Ordered ketoconazole 2% topical shampoo See Instructions, APPLY 1 APPLICATOR TOPICALLY 3X PER WEEK, # 120 mL, 3 Refills, [facility] [id number], 30, APPLY 1 APPLICATOR TOPICALLY 3X PER [...] 2 Refills, Maintenance, 12/17/20 15:28:00 EDT, Cream, [facility]/pharmacy #[id number], Partial fill upon patient request if the prescription is for a schedule II opioid drug., 1 application Topically 3 times a day,... Start Date: 12/17/20 Status: Ordered Hyden 0.65% nasal spray 2 sprays, Nares, Both, 4 times a day, # 1 each, 0 Refills, Maintenance, 12/03/20 13:46:00 EDT, [facility]/pharmacy #[id number], Partial fill upon patient [...] Soft Stop, 07/27/20 11:50:00 EDT, Cream, [facility], 1 applicationTopically Once,Instr:to skin head to feet, remove b... Start Date: 07/27/20 Status: Ordered predniSONE 5 mg oral tablet 1 tablet = 5 mg, By Mouth, 3 times a day, may fill 01/05/21 for 14 days, # 42 tablet, 0 Refills, Maintenance, 01/05/21 12:54:00 EDT, Tablet, [facility]/pharmacy #[id number], Partial fill upon patient request if the prescription is for a schedule II opioid drug., 1... Start Date: 01/05/21 Stop Date: 01/19/21 Status: Ordered selenium sulfide 2.5% topical lotion See Instructions, APPLY TOPICALLY TO AFFECTED AREA EVERY DAY FOR 7 DAYS, # 120 mL, 3 Refills, Soft Stop, 07/23/20 11:40:00 EDT, [facility], 7, APPLY TOPICALLY TO AFFECTED AREA EVERY DAY FOR 7 DAYS, 158, cm, 07/23/20 11:13:00 EDT, H... Start Date: 07/23/20 Status: Ordered Shingrix intramuscular injection = 0.5 mL, Intramuscular, Once, repeat dose in 2 to 6 months, # 2 each, 0 Refills, Soft Stop, 05/27/20 11:03:00 EDT, Powder, [facility], Partial fill upon patient request [...] Refills, Maintenance, 03/10/20 18:21:00 EST, Cream, [facility] 3, Partial fill upon [...]
--- OUTSIDE RECORDS SUMMARY | 2022-11-03 10:42 | XMS_ITS | Continuity of Care Document ---
Author Name Unknown Organization [facility] Address [address] [place] [address]- Care Team Providers Care Clothing Man Name Role Phone Ilya De Leon MD Primary Care Physician Encounter [facility] Date(s): 07/26/20 - 08/25/20 [facility]/[address] [address]- Allergies, Adverse Reactions, Alerts Substance Reaction Severity [...] 1 Refills, Maintenance, 09/30/19 16:26:00 EDT, Cream, [facility], 1 application Topically 2 times a day,PRN:for dry skin, 158, cm, 08/27/19 13:02:00 EDT, Height, 76, kg... Start Date: 09/30/19 Status: Ordered cetirizine 10 mg oral tablet 1 tablet = 10 mg, By Mouth, Daily, for allergies. Do NOT take with claritin, # 30 tablet, 0 Refills, Maintenance, 07/23/20 11:37:00 EDT, Tablet, [facility], Partial fill upon patient request if the prescription is for a schedule II... Start Date: 07/23/20 Stop Date: 08/22/20 Status: Ordered Claritin 10 mg oral tablet 10 mg, 1, tablet, By Mouth, Daily, # 15 tablet, Refills 3, Tot. Refills 3, Maintenance, 11/06/18 8:33:38 EDT, Route to Pharmacy Electronically, [id number], [facility] Start Date: 11/06/18 Status: [...] Gm, 0 Refills, Maintenance, 04/27/20 14:35:00 EST, [place], [facility], Partial fill upon patient request if theprescription is for a schedule II opioid drug., 1... Start Date: 04/27/20 Stop Date: 05/27/20 Status: Ordered halobetasol 0.05% topical cream 1 application, Topically, 2 times a day, # 50 Gm, 3 Refills, Maintenance, 08/02/20 12:54:00 EDT, Cream, [facility], Partial fill upon patient request if the prescription is for a schedule II opioid drug., 1 application Topically 2... Start Date: 08/02/20 Status: Ordered hydrocortisone 1% topical cream 1 application, Topically, 2 times a day, Apply to rash areas, # 60 Gm, 3 Refills, Maintenance, 06/04/19 14:52:00 EDT, Cream, [facility], 1 application Topically 2 times a [...] 0 Refills, Soft Stop, 08/06/20 11:18:00 EDT, [facility], 158, cm, 07/23/20 11:13:00 EDT... Start [...] mg oral tablet See Instructions, 1 tablet daily until visit with mo 08/26, # 4 tablet, 0 Refills, Maintenance, 08/23/20 10:02:00 EDT, [facility]/pharmacy #[id number], Partial fill upon patient request if the prescription is for a schedule II opioid drug., 158, cm, 08/20/20 11:24:... Start Date: 08/23/20 Status: Ordered selenium sulfide 2.5% topical lotion See Instructions, APPLY TOPICALLY TO AFFECTED AREA EVERY DAY FOR 7 DAYS, # 120 mL, 3 Refills, Soft Stop, 07/23/20 11:40:00 EDT, [facility], 7, APPLY TOPICALLY TO AFFECTED AREA [...] 1 Refills, Maintenance, 03/10/20 18:21:00 EST, Cream, [facility], Partial fill upon patient request [...] 0 Refills, Maintenance, 07/23/20 11:37:00 EDT, Gel, [facility], 1 application Topically 4 times a [...]
--- OUTSIDE RECORDS SUMMARY | 2022-11-03 10:42 | XMS_ITS | Continuity of Care Document ---
Author Name Unknown Organization [facility] Address [address] [place] [address]- Care Team Providers Care Group Account Director Name Role Phone Haley NEWMAN, Ilya Primary Care Physician Encounter [facility] Date(s): 08/08/22 - 11/01/[address] [address] Attending Physician: Atul Cain MD Admitting Physician: Atul Cain MD Allergies, Adverse Reactions, [...] Maintenance, 06/29/21 15:10:00 EDT, ER Tablet, [id number], Partial fill upon patient request if the [...] Refills, Maintenance, 09/04/22 10:28:00 EDT, Chew Tablet, [facility], Partial fill upon patient request ifthe prescription is for a schedule II opioid drug.,... Start Date: 09/04/22 Stop Date: 10/24/22 Status: Ordered cholecalciferol 1000 intl units oral capsule 1 capsule = 25 mcg, By Mouth, Daily, vitamin D, # 100 capsule, 3 Refills, Maintenance, 07/24/22 13:10:00 EDT, Capsule, [facility]/pharmacy #[id number], Partial fill upon patient request if the prescription is fora schedule II opioid drug., 155, cm, 07/17/22 9:50:... Start Date: 07/24/22 Status: Ordered clonazePAM 0.5 mg oral tablet 1 tablet = 0.5 mg, By Mouth, 2 times a day, May fill 11/01 and weekly, # 14 tablet, 3 Refills, Maintenance, 10/31/22 15:01:00 EDT, Tablet, [facility], IT APPLICATION DEVELOPMENT MANAGER reviewed, covering for Dr. De Leon, 155, cm, 09/04/22 10:17:00 EDT, Height,... Start Date: 10/31/22 Stop Date: 11/28/22 Status: Ordered clonazePAM 0.5 mg oral tablet 1 tablet = 0.5 mg, By Mouth, 2 times a day, Increaseddose July weekly on Fridays for 3 weeks starting on 07/21, # 14 tablet, 2 Refills, Maintenance, 07/19/22 12:38:00 EDT, Tablet, [facility], IT APPLICATION DEVELOPMENT MANAGER reviewed, covering for Dr. De Leon, 1... [...] 0 Refills, Maintenance, 04/27/20 14:35:00 EST, [place], [facility] 3, Partial fill upon patient request if theprescription is for a schedule II opioid drug., 1... Start Date: 04/27/20 Stop Date: 05/27/20 Status: Ordered halobetasol 0.05% topical ointment See Instructions, APPLY A THIN FILM TO THE AFFECTED SKIN AND RUB IN GENTLY AND COMPLETELY TWICE A DAY, # 50 Gm, 0 Refills, Maintenance, 09/12/22 13:49:00 EDT, [facility]/pharmacy #[id number], 30, APPLY A THIN FILM TO THE AFFECTED SKIN AND RUB IN GENTLY AND COMPLET... Start Date: 09/12/22 Status: Ordered halobetasol 0.05% topical ointment See Instructions, APPLY A THIN FILM TO THE AFFECTED SKIN AND RUB IN GENTLY AND COMPLETELY TWICE A DAY, # 50 Gm, 3 Refills, Maintenance, 09/19/22 11:12:00 EDT, [facility], 30, APPLY A THIN FILM TO THE AFFECTED SKIN AND RUB IN GENTLY... Start Date: 09/19/22 Status: Ordered ketoconazole 2% topical shampoo See Instructions, APPLY 1 APPLICATOR TOPICALLY 3X PER WEEK, # 120 mL, 3 Refills, Maintenance, 05/16/22 8:48:00 EST, [id number], 30, APPLY 1 APPLICATOR TOPICALLY 3X PER WEEK, 155, cm, 01/23/22 14:00:00 EST, Height, 106.5, kg, 09/14/21 9:38:00 EDT,... Start Date: 05/16/22 Status: Ordered loratadine 10 mg oral tablet 1, tablet, By Mouth, Daily, # 30 tablet, Refills 5, Tot. Refills 5, Maintenance, 07/04/22 8:39:00 EDT, Route to Pharmacy Electronically, [facility]/pharmacy #[id number], 155, cm, 01/23/22 14:00:00 EST, Height, 106.5, kg, 09/14/21 9:38:00 EDT, Dry Weight Start Date: 07/04/22 Status: Ordered Methadone By Mouth, 0 Refills, Maintenance Start Date: 12/25/11 Status: Ordered mupirocin 2% topical cream 1 application, Topically, 3 times a day, # 30 Gm, 2 Refills, Maintenance, 03/08/21 10:26:00 EST, Cream, [id number] [...] predniSONE 5 mg oral tablet See Instructions, may fill 11/01/22, # 28 tablet, 3 Refills, Maintenance, 10/31/22 15:01:00 EDT, [facility], Partial fill upon patient request if the prescription is for a scheduleII opioid drug., 155, cm, 09/04/22 10:17:00 EDT, He... Start Date: 10/31/22 Status: Ordered selenium sulfide 2.5% topical lotion [...] 07/24/22 13:12:00 EDT, Route to Pharmacy Electronically, [id number] Partial fill upon patient request if the prescription is f... Start Date: 07/24/22 Status: Ordered traMADol 50 mg oral tablet 1 tablet = 50 mg, By Mouth, Every 8 hours, PRN Pain , Severe, for 7 days, 4May fill 11/01/22 and weekly on Fridays for 4 weeks, # 21 tablet, 3 Refills, Acute 11/28/22 15:01:00 EDT, 08/22/23 15:01:00 EDT, Tablet, [facility], Partial... Start Date: 10/31/22 Stop Date: 11/28/22 Status: Ordered Problem List Condition Confirmation Course [...] Primary Care Member Role: PCP Address: Address: [address] [place] [address]- Care Team Related Persons Name: JD ALVAREZ Address: home [address] [place] [id number]
--- OUTSIDE RECORDS SUMMARY | 2022-11-03 10:42 | XMS_ITS | Continuity of Care Document ---
Author Name Unknown Organization [facility] Address Unknown Care Team Providers Care Supervisor Hard Candy Name Role Phone Haley NEWMAN, Ilya Primary Care Physician Encounter [place] Date(s): 10/27/20 - 11/26/20 [facility] Allergies, Adverse Reactions, Alerts Substance [...] [facility] Medications acetaminophen 500 mg oral tablet 2 tablet = 1,000 mg, By Mouth, 3 times a day, PRN as needed for fever, not to exceed 3000 mg/day take scheduled three times a day, # 100 tablet, 1 Refills, Acute 12/26/20 11:44:00 EDT, 09/24/20 11:43:00 EDT, Tablet, [facility]/pharmacy #[id number], Partial fill u... Start Date: 09/24/20 Stop Date: 12/26/20 Status: Ordered Cavilon Emollient topical cream 1 application, Topically, 2 times a day, PRN for dry skin, # 454 Gm, 1 Refills, Maintenance, 09/30/19 16:26:00 EDT, Cream, [facility] 3, 1 application Topically 2 times a day,PRN:for dry skin, 158, cm, 08/27/19 13:02:00 EDT, Height, 76, kg... Start Date: 09/30/19 Status: Ordered cetirizine 10 mg oral tablet 1 tablet = 10 mg, By Mouth, Daily, for allergies. Do NOT take with claritin, # 30 tablet, 0 Refills, Maintenance, 07/23/20 11:37:00 EDT, Tablet, [facility], Partial fill upon patient request if the prescription is for a schedule II... Start Date: 07/23/20 Stop Date: 08/22/20 Status: Ordered Claritin 10 mg oral tablet 10 mg, 1, tablet, By Mouth, Daily, # 15 tablet, Refills 3, Tot. Refills 3, Maintenance, 11/06/18 8:33:38 EDT, Route to Pharmacy Electronically, [id number], [facility] Start Date: 11/06/18 Status: Ordered clonazePAM 0.5 mg oral tablet 1 tablet = 0.5 mg, By Mouth, Daily, # 1 tablet, 0 Refills, Maintenance, 10/17/20 9:00:00 EDT, Tablet, [facility] 3, Partial fill upon patient request if the prescription is for a scheduleII opioid drug., 158, cm, 09/24/20 10:45:00 EDT, He... Start Date: 10/17/20 Stop Date: 10/18/20 Status: Ordered clonazePAM 0.5 mg oral tablet 1 tablet = 0.5 mg, By Mouth, Daily, # 28 tablet, 0 Refills, Maintenance, 11/18/20 15:29:00 EDT, Tablet, [facility]/pharmacy #[id number], Partial fill upon [...] 0 Refills, Maintenance, 07/16/20 15:11:00 EDT, Tablet, [facility], Partial fill upon patient request if the prescription is f... Start Date: 07/16/20 Status: Ordered Dovonex 0.005% topical cream 1 applicator, Topically, 2 times a day, # 60 Gm, 5 Refills, Maintenance, 07/07/19 17:30:00 EDT, [facility] 3, 1 applicator Topically 2 times [...] Gm, 0 Refills, Maintenance, 04/27/20 14:35:00 EST, [place], [facility] 3, Partial fill upon patient request if theprescription is for a schedule II opioid drug., 1... Start Date: 04/27/20 Stop Date: 05/27/20 Status: Ordered furosemide 20 mg oral tablet 1, tablet, By Mouth, Daily, # 30 tablet, Refills 3, Tot. Refills 0, Maintenance, 10/21/20 11:22:00 EDT, Route to Pharmacy Electronically, [id number], 158, cm, 10/18/20 10:46:00 EDT, Height, 95.4, kg, 10/16/20 10:11:00 EDT, Dry Weight Start Date: 10/21/20 Status: Ordered hydrocortisone 1% topical cream 1 application, Topically, 2 times a day, Apply to rash areas, # 60 Gm, 3 Refills, Maintenance, 06/04/19 14:52:00 EDT, Cream, [facility], 1 application Topically 2 [...] 12/26/20 11:39:00 EDT, 09/24/20 11:38:00 EDT, Ointment, [facility]/pharmacy #[id number], Partial fill upon [...] Refills, Soft Stop, 07/27/20 11:50:00 EDT, Cream, [facility], 1 applicationTopically Once,Instr:to skin head to feet, remove b... Start Date: 07/27/20 Status: Ordered predniSONE 5 mg oral tablet 1 tablet = 5 mg, By Mouth, 3 times a day, may fill 11/12/20 for 14 days, # 42 tablet, 0 Refills, Maintenance, 11/10/20 8:29:00 EDT, Tablet, [facility]/pharmacy #[id number], Partial fill upon patient request if the prescription is for a schedule II opioid drug., 158,... Start Date: 11/10/20 Stop Date: 11/24/20 Status: Ordered selenium sulfide 2.5% topical lotion See Instructions, APPLY TOPICALLY TO AFFECTED AREA EVERY DAY FOR 7 DAYS, # 120 mL, 3 Refills, Soft Stop, 07/23/20 11:40:00 EDT, [facility], 7, APPLY TOPICALLY TO AFFECTED AREA EVERY DAY FOR 7 DAYS, 158, cm, 07/23/20 11:13:00 EDT, H... Start Date: 07/23/20 Status: Ordered Shingrix intramuscular injection = 0.5 mL, Intramuscular, Once, repeat dose in 2 to 6 months, # 2 each, 0 Refills, Soft Stop, 05/27/20 11:03:00 EDT, Powder, [facility], Partial fill upon patient request [...] 0 Refills, Maintenance, 09/24/20 11:47:00 EDT, Gel, [facility]/pharmacy #[id number], 1 application Topically 4 times a [...]
--- OUTSIDE RECORDS SUMMARY | 2022-11-03 10:42 | XMS_ITS | Continuity of Care Document ---
Author Name Unknown Organization [facility] Address [address] [place] [address]- Care Team Providers Care Station Captain Name Role Phone Ilya De Leon MD Primary Care Physician En[place] [facility] [place]): 05/21/20 - 06/20/20 [facility]/[address] [address]- Allergies, Adverse Reactions, Alerts Substance Reaction Severity [...] 1 Refills, Maintenance, 09/30/19 16:26:00 EDT, Cream, [facility], 1 application Topically 2 times a day,PRN:for dry skin, 158, cm, 08/27/19 13:02:00 EDT, Height, 76, kg... Start Date: 09/30/19 Status: Ordered cetirizine 10 mg oral tablet 1 tablet = 10 mg, By Mouth, Daily, for allergies. Do NOT take with claritin, # 30 tablet, 0 Refills, Maintenance, 04/27/20 14:41:00 EST, Tablet, [facility], Partial fill upon patient request if the prescription is for a schedule II opioi... Start Date: 04/27/20 Stop Date: 05/27/20 Status: Ordered Claritin 10 mg oral tablet 10 mg, 1, tablet, By Mouth, Daily, # 15 tablet, Refills 3, Tot. Refills 3, Maintenance, 11/06/18 8:33:38 EDT, Route to Pharmacy Electronically, [id number], [facility] Start Date: 11/06/18 Status: Ordered Dovonex 0.005% topical cream 1 applicator, Topically, 2 times a day, # 60 Gm, 5 Refills, Maintenance, 07/07/19 17:30:00 EDT, [facility] 3, 1 applicator Topically 2 times [...] Gm, 0 Refills, Maintenance, 04/27/20 14:35:00 EST, [place], [facility], Partial fill upon patient request if theprescription is for a schedule II opioid drug., 1... Start Date: 04/27/20 Stop Date: 05/27/20 Status: Ordered hydrocortisone 1% topical cream 1 application, Topically, 2 times a day, Apply to rash areas, # 60 Gm, 3 Refills, Maintenance, 06/04/19 14:52:00 EDT, Cream, [facility], 1 application Topically 2 times [...] 0 Refills, Soft Stop, 05/31/20 15:38:00 EDT, [facility]/pharmacy #[id number], 158, cm, 05/27/20... Start Date: 05/31/20 Status: Ordered Medrol Dosepak 4 mg oral tablet per label intructions, By Mouth, Once, as on label, # 1 each, 0 Refills, Soft Stop, 08/11/19 20:08:00 EDT, [facility], 158, cm, 12/24/18 10:25:00 EDT, [...] mupirocin 2% topical ointment 1 application, Topically, 2 times a day, for 5 days, apply thin film to burn after blister pops, # 15 Gm, 0 Refills, Acute 06/22/20 12:19:00 EDT, 06/17/20 12:19:00 EDT, Ointment, [facility]/pharmacy #[id number], Partial fill upon patient request if the prescriptio... Start Date: 06/17/20 Stop Date: 06/22/20 Status: Ordered Nizoral 2% topical shampoo See Instructions, 1 applicator Topically 3x per week, # 120 mL, 10 Refills, Soft Stop, 05/13/20 11:05:00 EST, [facility], 1 applicator Topically 3x per [...] stop, # 15 tablet, 0 Refills, Maintenance, 06/11/20 15:03:00 EDT, [facility]/pharmacy #[id number], Partial fill upon patient request if the prescription is for a schedule II opioid drug., 15... Start Date: 06/11/20 Status: Ordered selenium sulfide 2.5% topical lotion See Instructions, APPLY TOPICALLY TO AFFECTED AREA EVERY DAY FOR 7 DAYS, # 120 mL, 3 Refills, Maintenance, [facility], 7, APPLY TOPICALLY TO AFFECTED AREA EVERY DAY FOR 7 DAYS, 158, cm, 05/10/20 11:36:00 EST, Height, 76, kg, 04/12/19 15:31:00 E... Start Date: 05/21/20 Status: Ordered selenium sulfide 2.5% topical lotion See Instructions, APPLY TOPICALLY TO AFFECTED AREA EVERY DAY FOR 7 DAYS, # 120 mL, 3 Refills, Maintenance, [facility], 7, APPLY TOPICALLY TO AFFECTED AREA EVERY DAY FOR 7 DAYS, 158, cm, 08/27/19 13:02:00 EDT, Height, 76, kg, 04/12/19 15:31:00 E... Start Date: 03/01/20 Status: Ordered Shingrix intramuscular injection = 0.5 mL, Intramuscular, Once, repeat dose in 2 to 6 months, # 2 each, 0 Refills, Soft Stop, 05/27/20 11:03:00 EDT, Powder, [facility], Partial fill upon patient request if [...] 1 Refills, Maintenance, 03/10/20 18:21:00 EST, Cream, [facility] 3, Partial fill upon patient request [...] 0 Refills, Maintenance, 04/06/19 20:19:00 EST, Tablet, [facility], 158, cm, 12/24/18 10:25:00 EDT, Height, 75.5, kg, 04/06/19 17:01:00 EST, Dry Weight Start Date: 04/06/19 Stop Date: 04/13/19 Status: Ordered Problem List Condition Effective Dates Status Health Status Inform ant Opioid type dependence, continuous(Confirmed) 1 Active 1Client had been seen by Jazz Francois at [facility]. Client has no-showed to last appt and today.She will be targetted for closing if she does not responde to correspondence that will be sent on 02/14/13 Social History Social History Type Response Tobacco Use: 4 or less cigar ettes(less than 1/4 pack)/day in last 30 days. Sex
--- OUTSIDE RECORDS SUMMARY | 2022-11-03 10:42 | XMS_ITS | Continuity of Care Document ---
Author Name Unknown Organization [facility] Address [address] [place] [id number]- Care Team Providers Care Gender Studies Professor Name Role Phone Ilya De Leon MD Primary Care Physician En[place] [facility] [place]): 10/21/21 - 11/20/21 [facility]/[address] [address]- [place] Allergies, Adverse Reactions, Alerts Substance Reaction [...] Maintenance, 06/29/21 15:10:00 EDT, ER Tablet, [id number], Partial fill upon patient request if the prescription is for a schedule II opioid drug., 155, cm, 05/30/21 15:34:... Start Date: 06/29/21 Status: Ordered capsaicin 0.025% topical cream See Instructions, APPLY TO AFFECTED AREA TWICE A DAY, # 60 Gm, 1 Refills, [id number], 30, APPLY TO AFFECTED AREA TWICE A DAY, 155, cm, 05/30/21 15:34:00 EDT, Height, 95.9, kg, 12/05/20 10:08:00 EDT, Dry Weight Start Date: 05/31/21 Status: Ordered Cavilon Emollient topical cream 1 application, Topically, 2 times a day, PRN for dry skin, # 454 Gm, 1 Refills, Maintenance, 09/30/19 16:26:00 EDT, Cream, [facility], 1 application Topically 2 times a day,PRN:for dry skin, 158, cm, 08/27/19 13:02:00 EDT, Height, 76, kg... Start Date: 09/30/19 Status: Ordered clonazePAM 0.5 mg oral tablet 1 tablet = 0.5 mg, By Mouth, Daily at bedtime, May fill 11/18/21 and weekly on Fridays for3 weeks, # 7 tablet, 2 Refills, Maintenance, 11/17/21 17:35:00 EDT, Tablet, [facility], PMPreviewed, covering for Dr. De Leon, 155, cm, ... Start Date: 11/17/21 Stop Date: 12/08/21 Status: Ordered clonazePAM 0.5 mg oral tablet 1 tablet = 0.5 mg, By Mouth, Daily at bedtime, May fill 11/04/21, # 7 tablet, 0 Refills, Maintenance, 11/03/21 9:35:00 EDT, Tablet, [facility], [facility] reviewed, covering for Dr. De Leon, 155, cm, 09/28/21 12:06:00 EDT, Height, 106.5, k... Start Date: 11/03/21 Stop Date: 11/10/21 Status: Ordered clonazePAM 0.5 mg oral tablet 1 tablet = 0.5 mg, By Mouth, Daily at bedtime, May fill 11/11/21, # 7 tablet, 0 Refills, Maintenance,11/10/21 14:18:00 EDT, Tablet, [facility], [employer] reviewed, covering for Dr. De Leon, 155, cm, 09/28/21 12:06:00 EDT, Height, 106.5, k... Start Date: 11/10/21 Stop Date: 11/17/21 Status: Ordered clonazePAM 0.5 mg oral tablet 1 tablet = 0.5 mg, By Mouth, Daily at bedtime, May cammie l 09/22/21, # 7 tablet, 0 Refills, Maintenance, 09/21/21 7:19:00 EDT, Tablet, [facility], [employer] reviewed, covering for Dr. De Leon, 155, cm, 09/15/21 10:14:00 EDT, Height, 106.5,... Start Date: 09/21/21 Stop Date: 09/28/21 Status: Ordered coal tar topical 1% lotion See Instructions, applyTopically Daily at bedtime, # 120 mL, 3 Refills, Maintenance, 10/26/21 15:45:00 EDT, [facility], Partial fill upon patient request if the prescription is for a schedule II opioid drug., applyTopically Daily a... Start Date: 10/26/21 Status: Ordered coal tar topical 2% foam 1 application, Topically, 4 times a day, # 100 Gm, 1 Refills, Maintenance, 09/28/21 12:24:00 EDT, Foam, [facility], Partial fill upon patient request if the prescription is for a schedule II opioid drug., 1 application Topically 4... Start Date: 09/28/21 Status: Ordered Dovonex 0.005% topical cream 1 applicator, Topically, 2 times a day, # 60 Gm, 5 Refills, Maintenance, 07/07/19 17:30:00 EDT, [facility] 3, 1 applicator Topically 2 times a day,x30 days, 158, cm, 12/24/18 10:25:00 EDT, Height, 76, kg, 04/12/19 15:31:00 EST, Dry Weight Start Date: 07/07/19 Stop Date: 01/03/20 Status: Ordered Eucerin Unscented topical lotion See Instructions, apply as frequently as needed, # 1 each, 0 Refills, Maintenance, 09/28/21 12:23:00 EDT, [facility], Partial fill upon patient request if the prescription is for a schedule II opioid drug., apply as frequently as n... Start Date: 09/28/21 Status: Ordered fluticasone 50 mcg/inh nasal spray 1 sprays, Nares, Both, 2 times a day, in each nostril. for allergies, # 16 Gm, 0 Refills, Maintenance, 04/27/20 14:35:00 EST, [place], [facility] 3, Partial fill upon patient request if theprescription is for a schedule II opioid drug., 1... Start Date: 04/27/20 Stop Date: 05/27/20 Status: Ordered halobetasol 0.05% topical ointment See Instructions, APPLY A THIN FILM TO THE AFFECTED SKIN AND RUB IN GENTLY AND COMPLETELY TWICE A DAY, # 50 Gm, 1 Refills, Maintenance, 10/26/21 15:44:00 EDT, [facility], 30, APPLY A THIN FILM TO THE AFFECTED SKIN AND RUB IN GENTLY... Start Date: 10/26/21 Status: Ordered hydrocortisone 1% topical cream 1 application, Topically, 2 times a day, # 30 Gm, 0 Refills, Maintenance, 06/17/21 11:42:00 EDT, Cream, [facility] 3, Partial fill upon patient request if the prescription is for a schedule II opioid drug., 1 application Topically 2 times... Start Date: 06/17/21 Status: Ordered ketoconazole 2% topical shampoo See Instructions, APPLY 1 APPLICATOR TOPICALLY 3X PER WEEK, # 120 mL, 3 Refills, [id number], 30, APPLY 1 APPLICATOR TOPICALLY 3X PER WEEK, 155, cm, 05/30/21 15:34:00 EDT, Height, 95.9, kg, 12/05/20 10:08:00 EDT, Dry Weight Start Date: 08/02/21 Status: Ordered loratadine 10 mg oral tablet 1, tablet, By Mouth, Daily, # 90 tablet, Refills 1, Tot. Refills 1, Maintenance, 11/01/21 15:19:00 EDT, Route to Pharmacy Electronically, [facility]/pharmacy #[id number], 155, cm, 09/28/21 12:06:00 [...] mg oral tablet See Instructions, May fill 11/18/21 and weekly on Fridays for 3 weeks, # 14 tablet, 2 Refills, 11/17/21 17:35:00 EDT, [facility], 155, cm, 09/28/21 12:06:00 EDT, Height, 106.5, kg, 09/14/21 9:38:00 EDT, Dry Weight Start Date: 11/17/21 Status: Ordered predniSONE 10 mg oral tablet See Instructions, i pill 2 times daily. May fill 11/04/21, # 14 tablet, 0 Refills, 11/03/21 9:35:00 EDT, [facility], 155, cm, 09/28/21 12:06:00 EDT, Height, 106.5, kg, 09/14/21 9:38:00 EDT, Dry Weight Start Date: 11/03/21 Status: Ordered predniSONE 10 mg oral tablet See Instructions, i pill 2 times daily. May fill 11/11/21, # 14 tablet, 0 Refills, 11/10/21 14:18:00 EDT, [facility], 155, cm, 09/28/21 12:06:00 EDT, Height, 106.5, kg, 09/14/21 9:38:00 EDT, Dry Weight Start Date: 11/10/21 Status: Ordered selenium sulfide 2.5% topical lotion See Instructions, APPLY TOPICALLY TO AFFECTED AREA EVERY DAY FOR 7 DAYS, # 120 mL, 3 Refills, Soft Stop, 10/26/21 15:43:00 EDT, [facility], 7, APPLY TOPICALLY TO AFFECTED AREA EVERY DAY FOR 7 DAYS, 155, cm, 09/28/21 12:06:00 EDT, H... Start Date: 10/26/21 Status: Ordered tiZANidine 2 mg oral tablet 1, tablet, By Mouth, 3 times a day, # 60 tablet, Refills 0, Route to Pharmacy Electronically, [id number], 155, cm, 05/03/21 14:39:00 EST, Height, 95.9, kg, 12/05/20 10:08:00 EDT, Dry Weight Start Date: 05/09/21 Status: Ordered traMADol 50 mg oral tablet 1 tablet = 50 mg, By Mouth, Every 8 hours, PRN Pain , Severe, for 7 days, May fill 11/18/21 and weekly on Fridays for3 weeks, # 21 tablet, 2 Refills, Acute 12/08/21 17:35:00 EDT, 11/17/21 17:35:00 EDT,Tablet, [facility], Partial cammie... Start Date: 11/17/21 Stop Date: 12/08/21 Status: Ordered Problem List Condition Effective Dates [...] last 30 days entered on: 04/18/21 Sex Care Team Personnel Name: Ilya De Leon MD Address: [address] [place] [address]
--- OUTSIDE RECORDS SUMMARY | 2022-11-03 10:42 | XMS_ITS | Continuity of Care Document ---
Author Name Unknown Organization [facility] Address Unknown Care Team Providers Care Layout Artist Name Role Phone Ilya De Leon MD Primary Care Physician Encounter [facility] [place] Date(s): 10/15/20 - 11/14/20 [facility] Allergies, Adverse Reactions, Alerts Substance Reaction [...] 11:44:00 EDT, 09/24/20 11:43:00 EDT, Tablet, [facility]/pharmacy #[id number], Partial fill u... Start Date: 09/24/20 Stop [...] 0 Refills, Maintenance, 07/23/20 11:37:00 EDT, Tablet, [facility], Partial fill upon patient request if the prescription is for a schedule II... Start Date: 07/23/20 Stop Date: 08/22/20 Status: Ordered Claritin 10 mg oral tablet 10 mg, 1, tablet, By Mouth, Daily, # 15 tablet, Refills 3, Tot. Refills 3, Maintenance, 11/06/18 8:33:38 EDT, Route to Pharmacy Electronically, [id number], [facility] Start Date: 11/06/18 Status: Ordered clonazePAM 0.5 mg oral tablet 1 tablet = 0.5 mg, By Mouth, Daily, # 28 tablet, 0 Refills, Maintenance, 10/18/20 11:03:00 EDT, Tablet, [facility], Partial fill upon patient request [...] 0 Refills, Maintenance, 07/16/20 15:11:00 EDT, Tablet, [facility], Partial fill upon patient request [...] Gm, 0 Refills, Maintenance, 04/27/20 14:35:00 EST, [place], [facility] 3, Partial fill upon patient request if theprescription is for a schedule II opioid drug., 1... Start Date: 04/27/20 Stop Date: 05/27/20 Status: Ordered furosemide 20 mg oral tablet 1, tablet, By Mouth, Daily, # 30 tablet, Refills 3, Tot. Refills 0, Maintenance, 10/21/20 11:22:00 EDT, Route to Pharmacy Electronically, [id number], 158, cm, 10/18/20 10:46:00 EDT, Height, 95.4, [...] 11:39:00 EDT, 09/24/20 11:38:00 EDT, Ointment, [facility]/pharmacy #[id number], Partial fill upon patient request if [...] Refills, Soft Stop, 07/27/20 11:50:00 EDT, Cream, [facility], 1 applicationTopically Once,Instr:to skin head to feet, remove b... Start Date: 07/27/20 Status: Ordered predniSONE 5 mg oral tablet 1 tablet = 5 mg, By Mouth, 3 times a day, may fill 11/12/20 for 14 days, # 42 tablet, 0 Refills, Maintenance, 11/10/20 8:29:00 EDT, Tablet, [facility]/pharmacy #[id number], Partial fill upon patient request if the prescription is for a schedule II opioid drug., 158,... Start Date: 11/10/20 Stop Date: 11/24/20 Status: Ordered selenium sulfide 2.5% topical lotion See Instructions, APPLY TOPICALLY TO AFFECTED AREA EVERY DAY FOR 7 DAYS, # 120 mL, 3 Refills, Soft Stop, 07/23/20 11:40:00 EDT, [facility], 7, APPLY TOPICALLY TO AFFECTED AREA EVERY DAY FOR 7 DAYS, 158, cm, 07/23/20 11:13:00 EDT, H... Start Date: 07/23/20 Status: Ordered Shingrix intramuscular injection = 0.5 mL, Intramuscular, Once, repeat dose in 2 to 6 months, # 2 each, 0 Refills, Soft Stop, 05/27/20 11:03:00 EDT, Powder, [facility], Partial fill upon patient request [...] 1 Refills, Maintenance, 03/10/20 18:21:00 EST, Cream, [facility] 3, Partial fill [...] Refills, Maintenance, 09/24/20 11:47:00 EDT, Gel, [facility]/pharmacy #[id number], 1 application Topically 4 times a [...]
--- OUTSIDE RECORDS SUMMARY | 2022-11-03 10:42 | XMS_ITS | Continuity of Care Document ---
Author Name Unknown Organization [facility] Address [address] [place] [id number]- Care Team Providers Care Zig Zag Spring Machine Operator Name Role Phone Haley NEWMAN, Ilya Primary Care Physician Encounter [facility] Date(s): 07/16/20 - 08/15/20 [facility]/[address] [address]- Allergies, Adverse Reactions, Alerts Substance Reaction Severity [...] 1 Refills, Maintenance, 09/30/19 16:26:00 EDT, Cream, [facility], 1 application Topically 2 times a day,PRN:for dry skin, 158, cm, 08/27/19 13:02:00 EDT, Height, 76, kg... Start Date: 09/30/19 Status: Ordered cetirizine 10 mg oral tablet 1 tablet = 10 mg, By Mouth, Daily, for allergies. Do NOT take with claritin, # 30 tablet, 0 Refills, Maintenance, 07/23/20 11:37:00 EDT, Tablet, [facility], Partial fill upon patient request if the prescription is for a schedule II... Start Date: 07/23/20 Stop Date: 08/22/20 Status: Ordered Claritin 10 mg oral tablet 10 mg, 1, tablet, By Mouth, Daily, # 15 tablet, Refills 3, Tot. Refills 3, Maintenance, 11/06/18 8:33:38 EDT, Route to Pharmacy Electronically, [id number], [facility] Start Date: 11/06/18 Status: Ordered diphenhydrAMINE 25 mg oral tablet 1 tablet = 25 mg, By Mouth, 3 times a day, PRN as needed for itching, Will cause drowsiness, # 30 tablet, 0 Refills, Maintenance, 07/16/20 15:11:00 EDT, Tablet, [facility], Partial fill upon patient request if the prescription is f... Start Date: 07/16/20 Status: Ordered Dovonex 0.005% topical cream 1 applicator, Topically, 2 times a day, # 60 Gm, 5 Refills, Maintenance, 07/07/19 17:30:00 EDT, [facility] 3, 1 applicator Topically 2 times [...] Gm, 0 Refills, Maintenance, 04/27/20 14:35:00 EST, [place], [facility], Partial fill upon patient request if theprescription is for a schedule II opioid drug., 1... Start Date: 04/27/20 Stop Date: 05/27/20 Status: Ordered halobetasol 0.05% topical cream 1 application, Topically, 2 times a day, # 50 Gm, 3 Refills, Maintenance, 08/02/20 12:54:00 EDT, Cream, [facility], Partial fill upon patient request if the prescription is for a schedule II opioid drug., 1 application Topically 2... Start Date: 08/02/20 Status: Ordered hydrocortisone 1% topical cream 1 application, Topically, 2 times a day, Apply to rash areas, # 60 Gm, 3 Refills, Maintenance, 06/04/19 14:52:00 EDT, Cream, [facility], 1 application Topically 2 [...] 0 Refills, Soft Stop, 08/06/20 11:18:00 EDT, [facility], 158, cm, 07/23/20 11:13:00 EDT... Start Date: 08/06/20 Status: Ordered Methadone By Mouth, 0 Refills, Maintenance Start Date: 12/25/11 Status: Ordered mupirocin 2% topical ointment 1 application, Topically, 3 times a day, for 7 days, For lesion on right upper arm, # 22 Gm, 0 Refills, Acute 08/19/20 12:30:00 EDT, 08/12/20 12:30:00 EDT, [facility]/pharmacy #[id number], Partial fill upon patient request if the prescription is for a schedule II... Start Date: 08/12/20 Stop Date: 08/19/20 Status: Ordered Nizoral 2% topical shampoo See Instructions, 1 applicator Topically 3x per week, # 120 mL, 3 Refills, Soft Stop, 08/12/20 10:30:00 EDT, [facility]/pharmacy #[id number], 1 applicator Topically 3x per week, 158, cm, 07/23/20 11:13:00 EDT, Height, 82, kg, 07/21/20 20:18:00 EDT, Dry Weight Start Date: 08/12/20 Status: Ordered permethrin 5% topical cream 1 application, Topically, Once, to skin head to feet, remove by washing after 8 to 14 hours, # 60 Gm, 0 Refills, Soft Stop, 07/27/20 11:50:00 EDT, Cream, [facility], 1 applicationTopically Once,Instr:to skin head to feet, remove b... Start Date: 07/27/20 Status: Ordered predniSONE 10 mg oral tablet See Instructions, Take 1 tablets daily fror 21 days more until derm appointment, # 21 tablet, 0 Refills, Maintenance, 08/12/20 10:30:00 EDT, [facility]/pharmacy #[id number], Partial fill upon patient request if the prescription is for a schedule II opioid drug.,... Start Date: 08/12/20 Status: Ordered selenium sulfide 2.5% topical lotion See Instructions, APPLY TOPICALLY TO AFFECTED AREA EVERY DAY FOR 7 DAYS, # 120 mL, 3 Refills, Soft Stop, 07/23/20 11:40:00 EDT, [facility], 7, APPLY TOPICALLY TO AFFECTED AREA EVERY DAY FOR 7 DAYS, 158, cm, 07/23/20 11:13:00 EDT, H... Start Date: 07/23/20 Status: Ordered Shingrix intramuscular injection = 0.5 mL, Intramuscular, Once, repeat dose in 2 to 6 months, # 2 each, 0 Refills, Soft Stop, 05/27/20 11:03:00 EDT, Powder, [facility], Partial fill upon patient request [...] 1 Refills, Maintenance, 03/10/20 18:21:00 EST, [facility], [facility] fill upon patient [...] 0 Refills, Maintenance, 07/23/20 11:37:00 EDT, Gel, [facility], 1 application Topically 4 times a [...]
--- OUTSIDE RECORDS SUMMARY | 2022-11-03 10:42 | XMS_ITS | Continuity of Care Document ---
Author Name Unknown Organization [facility] Address [address] [place] [address]- Care Team Providers Care Wildlife Veterinarian Name Role Phone Ilya De Leon MD Primary Care Physician Encounter [facility] Date(s): 09/19/22 - 10/19/22 [facility]/[address] [id number]- [place] Allergies, Adverse Reactions, Alerts Substance Reaction [...] 02/06/10 Garrett rded 1Admin Note: ADMIN BY [facility] 2Admin Note: FLUVIRIN MULTIDOSE ADMINISTERED AT [facility] Medications acetaminophen 650 mg oral tablet, extended release 2 tablet = 1,300 mg, By Mouth, Every 8 hours, # 100 tablet, 1 Refills, Maintenance, 06/29/21 15:10:00 EDT, ER Tablet, [id number], Partial fill upon patient request if the prescription is for a schedule II opioid drug., 155, cm, 05/30/21 15:34:... Start Date: 06/29/21 Status: Ordered Cavilon Emollient topical cream 1 application, Topically, 2 times a day, PRN for dry skin, # 454 Gm, 1 Refills, Maintenance, 09/30/19 16:26:00 EDT, Cream, [facility] 3, 1 application Topically 2 times a day,PRN:for dry skin, 158, cm, 08/27/19 13:02:00 EDT, Height, 76, kg... Start Date: 09/30/19 Status: Ordered Cavilon Emollient topical cream 1 application, Topically, 2 times a day, PRN for dry skin, # 454 Gm, 3 Refills, Maintenance, 09/19/22 11:12:00 EDT, Cream, [facility], 1 application Topically 2 times a day,PRN:for dry skin, 155, cm, 09/04/22 10:17:00 EDT, Height,... Start Date: 09/19/22 Status: Ordered cetirizine 10 mg oral tablet, chewable 1 tablet = 10 mg, By Mouth, Daily, PRN for allergy symptoms, # 12 tablet, 4 Refills, Maintenance, 09/04/22 10:28:00 EDT, Chew Tablet, [facility], Partial fill upon patient request ifthe prescription is for a schedule II opioid drug.,... Start Date: 09/04/22 Stop Date: 10/24/22 Status: Ordered cholecalciferol 1000 intl units oral capsule 1 capsule = 25 mcg, By Mouth, Daily, vitamin D, # 100 capsule, 3 Refills, Maintenance, 07/24/22 13:10:00 EDT, Capsule, [facility]/pharmacy #[id number], Partial fill upon patient request if the prescription is fora schedule II opioid drug., 155, cm, 07/17/22 9:50:... Start Date: 07/24/22 Status: Ordered clonazePAM 0.5 mg oral tablet 1 tablet = 0.5 mg, By Mouth, 2 times a day, Increaseddose July weekly on Fridays for 4 weeks starting on 10/05, # 14 tablet, 3 Refills, Maintenance, 10/04/22 8:15:00 EDT, Tablet, [facility], [employer] reviewed, covering for Dr. De Leon, 15... Start Date: 10/04/22 Stop Date: 11/01/22 Status: Ordered clonazePAM 0.5 mg oral tablet 1 tablet = 0.5 mg, By Mouth, 2 times a day, Increaseddose July weekly on Fridays for 3 weeks starting on 07/21, # 14 tablet, 2 Refills, Maintenance, 07/19/22 12:38:00 EDT, Tablet, [facility], [employer] reviewed, covering for Dr. De Leon, 1... Start Date: 07/19/22 Stop Date: 08/09/22 Status: Ordered Dovonex 0.005% topical cream 1 applicator, Topically, 2 times a day, # 60 Gm, 5 Refills, Maintenance, 05/24/22 12:41:00 EDT, [facility], 1 applicator Topically 2 times a day,x30 days, 155, cm, 01/23/22 14:00:00 EST, Height, 106.5, kg, 09/14/21 9:38:00 EDT, Dry... Start Date: 05/24/22 Stop Date: 11/20/22 Status: Ordered Eucerin Unscented topical lotion See Instructions, apply as frequently as needed, # 1 each, 3 Refills, Maintenance, 09/19/22 11:12:00 EDT, [facility], Partial fill upon patient request if the prescription is for a schedule II opioid drug., apply as frequently as n... Start Date: 09/19/22 Status: Ordered Eucerin Unscented topical lotion See Instructions, apply as frequently as needed, # 1 each, 0 Refills, Maintenance, 09/28/21 12:23:00 EDT, [facility], Partial fill upon patient request if the prescription is for a schedule II opioid drug., apply as frequently as n... Start Date: 09/28/21 Status: Ordered fluticasone 50 mcg/inh nasal spray 1 sprays, Nares, Both, 2 times a day, in each nostril. for allergies, # 16 Gm, 0 Refills, Maintenance, 04/27/20 14:35:00 EST, [place], [facility] 3, Partial fill upon patient request if theprescription is for a schedule II opioid drug., 1... Start Date: 04/27/20 Stop Date: 05/27/20 Status: Ordered halobetasol 0.05% topical ointment See Instructions, APPLY A THIN FILM TO THE AFFECTED SKIN AND RUB IN GENTLY AND COMPLETELY TWICE A DAY, # 50 Gm, 0 Refills, Maintenance, 09/12/22 13:49:00 EDT, [facility]/pharmacy #[id number], 30, APPLY A THIN FILM TO THE AFFECTED SKIN AND RUB IN GENTLY AND COMPLET... Start Date: 09/12/22 Status: Ordered halobetasol 0.05% topical ointment See Instructions, APPLY A THIN FILM TO THE AFFECTED SKIN AND RUB IN GENTLY AND COMPLETELY TWICE A DAY, # 50 Gm, 3 Refills, Maintenance, 09/19/22 11:12:00 EDT, [facility], 30, APPLY A THIN FILM TO THE AFFECTED SKIN AND RUB IN GENTLY... Start Date: 09/19/22 Status: Ordered ketoconazole 2% topical shampoo See Instructions, APPLY 1 APPLICATOR TOPICALLY 3X PER WEEK, # 120 mL, 3 Refills, Maintenance, 05/16/22 8:48:00 EST, [facility] STORE [id number], 30, APPLY 1 APPLICATOR TOPICALLY 3X PER WEEK, 155, cm, 01/23/22 14:00:00 EST, Height, 106.5, kg, 09/14/21 9:38:00 EDT,... Start Date: 05/16/22 Status: Ordered loratadine 10 mg oral tablet 1, tablet, By Mouth, Daily, # 30 tablet, Refills 5, Tot. Refills 5, Maintenance, 07/04/22 8:39:00 EDT, Route to Pharmacy Electronically, [facility]/pharmacy #[id number], 155, cm, 01/23/22 14:00:00 EST, Height, 106.5, kg, 09/14/21 9:38:00 EDT, Dry Weight Start Date: 07/04/22 Status: Ordered Methadone By Mouth, 0 Refills, Maintenance Start Date: 12/25/11 Status: Ordered mupirocin 2% topical cream 1 application, Topically, 3 times a day, # 30 Gm, 2 Refills, Maintenance, 03/08/21 10:26:00 EST, Cream, [facility]/pharmacy #[id number], Partial fill upon patient request if the prescription is for a schedule II opioid drug., 1 application Topically 3 times a day,... Start Date: 03/08/21 Status: Ordered permethrin 5% topical cream 1 application, Topically, Once, to skin head to feet, remove by washing after 8 to 14 hours, # 60 Gm, 0 Refills, Soft Stop, 07/27/20 11:50:00 EDT, Cream, [facility], 1 applicationTopically Once,Instr:to skin head to feet, remove b... Start Date: 07/27/20 Status: Ordered predniSONE 5 mg oral tablet See Instructions, Starting next refill increase to 4 tablets daily, # 28 tablet, 3 Refills, Maintenance, 10/04/22 8:15:00 EDT, [facility], Partial fill upon patient request if theprescription is for a schedule II opioid drug., 155... Start Date: 10/04/22 Status: Ordered selenium sulfide 2.5% topical lotion See Instructions, APPLY TOPICALLY TO AFFECTED AREA EVERY DAY FOR 7 DAYS, # 120 mL, 3 Refills, Soft Stop, 10/26/21 15:43:00 EDT, [facility], 7, APPLY TOPICALLY TO AFFECTED AREA EVERY DAY FOR 7 DAYS, 155, cm, 09/28/21 12:06:00 EDT, H... Start Date: 10/26/21 Status: Ordered simvastatin 20 mg oral tablet 20 mg, 1, tablet, By Mouth, Daily at bedtime, for cholesterol, # 30 tablet, Refills 5, Tot. Refills5, Maintenance, 07/24/22 13:12:00 EDT, Route to Pharmacy Electronically, [facility]/pharmacy #[id number], Partial fill upon patient request if the prescription is f... Start Date: 07/24/22 Status: Ordered traMADol 50 mg oral tablet 1 tablet = 50 mg, By Mouth, Every 8 hours, PRN Pain , Severe, for 7 days, 4May fill 10/05/22 and weekly on Fridays for 4 weeks, # 21 tablet, 3 Refills, Acute 11/01/22 8:14:00 EDT, 10/04/22 8:14:00 EDT, Tablet, [facility], Partial fi... Start Date: [...] Personnel Name: Ilya De Leon MD Position: [facility] Physician - Primary Care Member Role: PCP Address: Address: [address] [place] [id number]- Care Team Related Persons Name: JD ALVAREZ Address: [address] [address]
--- OUTSIDE RECORDS SUMMARY | 2022-11-03 10:42 | XMS_ITS | Continuity of Care Document ---
Author Name Unknown Organization [facility] Address [address] [place] [id number]- Care Team Providers Care Television Host Name Role Phone Ilya De Leon MD Primary Care Physician Encounter [facility] Date(s): 05/27/20 - 06/26/20 [facility]/[address] [address]- Allergies, Adverse Reactions, Alerts Substance Reaction Severity [...] 1 Refills, Maintenance, 09/30/19 16:26:00 EDT, Cream, [facility], 1 application Topically 2 times a day,PRN:for dry skin, 158, cm, 08/27/19 13:02:00 EDT, Height, 76, kg... Start Date: 09/30/19 Status: Ordered cetirizine 10 mg oral tablet 1 tablet = 10 mg, By Mouth, Daily, for allergies. Do NOT take with claritin, # 30 tablet, 0 Refills, Maintenance, 04/27/20 14:41:00 EST, Tablet, [facility], Partial fill upon patient request if the prescription is for a schedule II opioi... Start Date: 04/27/20 Stop Date: 05/27/20 Status: Ordered Claritin 10 mg oral tablet 10 mg, 1, tablet, By Mouth, Daily, # 15 tablet, Refills 3, Tot. Refills 3, Maintenance, 11/06/18 8:33:38 EDT, Route to Pharmacy Electronically, [id number], [facility] Start Date: 11/06/18 Status: Ordered Dovonex 0.005% topical cream 1 applicator, Topically, 2 times a day, # 60 Gm, 5 Refills, Maintenance, 07/07/19 17:30:00 EDT, [facility], 1 applicator Topically 2 times [...] Gm, 0 Refills, Maintenance, 04/27/20 14:35:00 EST, [place], [facility], Partial fill upon patient request if theprescription is for a schedule II opioid drug., 1... Start Date: 04/27/20 Stop Date: 05/27/20 Status: Ordered hydrocortisone 1% topical cream 1 application, Topically, 2 times a day, Apply to rash areas, # 60 Gm, 3 Refills, Maintenance, 06/04/19 14:52:00 EDT, Cream, [facility], 1 application Topically [...] 0 Refills, Soft Stop, 05/31/20 15:38:00 EDT, [facility]/pharmacy #[id number], 158, cm, 05/27/20... Start Date: 05/31/20 Status: Ordered Medrol Dosepak 4 mg oral tablet per label intructions, By Mouth, Once, as on label, # 1 each, 0 Refills, Soft Stop, 08/11/19 20:08:00 EDT, [facility], 158, cm, 12/24/18 10:25:00 [...] 10 Refills, Soft Stop, 05/13/20 11:05:00 EST, [facility], 1 applicator Topically 3x per week, 158, cm, 05/10/20 11:36:00 EST, Height, 76, kg, 04/12/19 15:31:00 EST, Dry Weight Start Date: 05/13/20 Status: Ordered oxyCODONE 5 mg oral tablet 5 mg, 1, tablet, By Mouth, Every 6 hours, PRN, # 4 tablet, Refills 0, Tot. Refills 0, Maintenance, Pain , Severe, 06/26/20 10:50:00 EDT, Route to Pharmacy Electronically, [facility], Partial fill upon patient request if [...] 0 Refills, Maintenance, 06/26/20 10:47:00 EDT, Tablet, [facility], Partial fill upon patient request if the... Start Date: 06/26/20 Status: Ordered predniSONE 5 mg oral tablet See Instructions, 2 tablets daily for 5 days then 1 daily for 5 days then stop, # 15 tablet, 0 Refills, Maintenance, 06/23/20 13:21:00 EDT, [facility]/pharmacy #[id number], Partial fill upon patient request if the prescription is for a schedule II opioid drug., 15... Start Date: 06/23/20 Status: Ordered selenium sulfide 2.5% topical lotion See Instructions, APPLY TOPICALLY TO AFFECTED AREA EVERY DAY FOR 7 DAYS, # 120 mL, 3 Refills, Maintenance, [facility], 7, APPLY TOPICALLY TO AFFECTED AREA EVERY DAY FOR 7 DAYS, 158, cm, 05/10/20 11:36:00 EST, Height, 76, kg, 04/12/19 15:31:00 E... Start Date: 05/21/20 Status: Ordered selenium sulfide 2.5% topical lotion See Instructions, APPLY TOPICALLY TO AFFECTED AREA EVERY DAY FOR 7 DAYS, # 120 mL, 3 Refills, Maintenance, [facility], 7, APPLY TOPICALLY TO AFFECTED [...] Refills, Maintenance, 03/10/20 18:21:00 EST, Cream, [facility] 3, Partial fill upon patient [...] 0 Refills, Maintenance, 04/06/19 20:19:00 EST, Tablet, [facility], 158, cm, 12/24/18 10:25:00 EDT, Height, 75.5, kg, 04/06/19 17:01:00 EST, Dry Weight Start Date: 04/06/19 Stop Date: 04/13/19 Status: Ordered Problem List Condition Effective Dates Status Health Status Inform ant Opioid type dependence, continuous(Confirmed) 1 Active 1Client had been seen by Jazz Francois at [facility]. Client has no-showed to last appt and today.She will be targetted for closing if she does not responde to correspondence that will be sent on 02/14/13 Social History Social History Type Response Tobacco Use: 4 or less cigar ettes(less than 1/4 pack)/day in last 30 days. Sex
--- OUTSIDE RECORDS SUMMARY | 2022-11-03 10:42 | XMS_ITS | Continuity of Care Document ---
Author Name Unknown Organization [facility] Address [address] [place] [id number]- Care Team Providers Care Slitter And Rewinder Name Role Phone Ilya De Leon MD Primary Care Physician Encounter [facility] [place] Date(s): 12/12/21 - 01/11/22 [facility] [address]- [place] Allergies, Adverse Reactions, Alerts Substance Reaction [...] Maintenance, 06/29/21 15:10:00 EDT, ER Tablet, [id number], Partial fill upon patient request if the prescription is for a schedule II opioid drug., 155, cm, 05/30/21 15:34:... Start Date: 06/29/21 Status: Ordered capsaicin 0.025% topical cream See Instructions, APPLY TO AFFECTED AREA TWICE A DAY, # 60 Gm, 1 Refills, [id number], 30, APPLY TO AFFECTED AREA TWICE A DAY, 155, cm, 05/30/21 15:34:00 EDT, Height, 95.9, kg, 12/05/20 10:08:00 EDT, Dry Weight Start Date: 05/31/21 Status: Ordered Cavilon Emollient topical cream 1 application, Topically, 2 times a day, PRN for dry skin, # 454 Gm, 1 Refills, Maintenance, 09/30/19 16:26:00 EDT, Cream, [facility] 3, 1 application Topically 2 times a day,PRN:for dry skin, 158, cm, 08/27/19 13:02:00 EDT, Height, 76, kg... Start Date: 09/30/19 Status: Ordered clonazePAM 0.5 mg oral tablet 1 tablet = 0.5 mg, By Mouth, Daily at bedtime, May fill 12/09/21 and weekly on Fridays for3 weeks, #7 tablet, 2 Refills, Maintenance, 12/06/21 10:38:00 EDT, Tablet, [facility], [employer] reviewed, covering for Dr. De Leon, 155, cm, 09/28... Start Date: 12/06/21 Stop Date: 12/27/21 Status: Ordered clonazePAM 0.5 mg oral tablet 1 tablet = 0.5 mg, By Mouth, Daily at bedtime, May fill 12/30/21 and weekly on Fridays for3 weeks, # 7 tablet, 2 Refills, Maintenance, 12/27/21 16:07:00 EDT, Tablet, [facility], [employer] reviewed, covering for Dr. De Leon, 155, cm, ... Start Date: 12/27/21 Stop Date: 01/17/22 Status: Ordered coal tar topical 1% lotion See Instructions, applyTopically Daily at bedtime, # 120 mL, 3 Refills, Maintenance, 10/26/21 15:45:00 EDT, [facility], Partial fill upon patient request if the prescription is for a schedule II opioid drug., applyTopically Daily a... Start Date: 10/26/21 Status: Ordered Dovonex 0.005% topical cream 1 applicator, Topically, 2 times a day, # 60 Gm, 5 Refills, Maintenance, 07/07/19 17:30:00 EDT, [facility] 3, 1 applicator Topically 2 times [...] Gm, 0 Refills, Maintenance, 04/27/20 14:35:00 EST, [place], [facility] 3, Partial fill upon patient request if theprescription is for a schedule II opioid drug., 1... Start Date: 04/27/20 Stop Date: 05/27/20 Status: Ordered halobetasol 0.05% topical ointment See Instructions, APPLY A THIN FILM TO THE AFFECTED SKIN AND RUB IN GENTLY AND COMPLETELY TWICE A DAY, # 50 Gm, 1 Refills, Maintenance, 10/26/21 15:44:00 EDT, [facility], 30, APPLY A THIN FILM TO THE AFFECTED SKIN AND RUB IN GENTLY... Start Date: 10/26/21 Status: Ordered hydrocortisone 1% topical cream 1 application, Topically, 2 times a day, # 30 Gm, 0 Refills, Maintenance, 06/17/21 11:42:00 EDT, Cream, [facility] 3, Partial fill upon patient request if the prescription is for a schedule II opioid drug., 1 application Topically 2 times... Start Date: 06/17/21 Status: Ordered ketoconazole 2% topical shampoo See Instructions, APPLY 1 APPLICATOR TOPICALLY 3X PER WEEK, # 120 mL, 3 Refills, Maintenance, 12/27/21 19:30:00 EDT, [id number], 30, APPLY 1 APPLICATOR TOPICALLY 3X PER WEEK, 155, cm, 12/12/21 16:00:00 EDT, Height, 106.5, kg, 09/14/21 9:38:00 EDT... Start Date: 12/27/21 Status: Ordered loratadine 10 mg oral tablet 1, tablet, By Mouth, Daily, # 90 tablet, Refills 1, Tot. Refills 1, Maintenance, 11/01/21 15:19:00 EDT, Route to Pharmacy Electronically, [facility]/pharmacy #[id number], 155, cm, 09/28/21 12:06:00 EDT, Height, 106.5, kg, 09/14/21 9:38:00 EDT, Dry Weight Start Date: 11/01/21 Status: Ordered Methadone By Mouth, 0 Refills, Maintenance Start Date: 12/25/11 Status: Ordered mupirocin 2% topical cream 1 application, Topically, 3 times a day, # 30 Gm, 2 Refills, Maintenance, 03/08/21 10:26:00 EST, Cream, [facility]/pharmacy #[id number], Partial fill upon patient [...] 14 tablet, 2 Refills, 12/06/21 10:38:00 EDT, [facility], 155, cm, 09/28/21 12:06:00 EDT, Height, 106.5, kg,09/14/21 9:38:00 EDT, Dry Weight Start Date: 12/06/21 Status: Ordered predniSONE 10 mg oral tablet See Instructions, May fill 12/30/21 and weekly on Fridays for 3 weeks, # 14 tablet, 2 Refills, 12/27/21 16:07:00 EDT, [facility], 155, cm, 12/12/21 16:00:00 EDT, Height, [...] tablet, Refills 0, Route to Pharmacy Electronically, [id number], 155, cm, 05/03/21 14:39:00 EST, Height, 95.9, kg, 12/05/20 10:08:00 EDT, Dry Weight Start Date: 05/09/21 Status: Ordered traMADol 50 mg oral tablet 1 tablet = 50 mg, By Mouth, Every 8 hours, PRN Pain , Severe, for 7 days, May fill 12/30/21 and weekly on Fridays for3 weeks, # 21 tablet, 2 Refills, Acute 01/17/22 16:07:00 EST, 12/27/21 16:07:00 EDT, Tablet, [facility], Partial f... Start Date: 12/27/21 Stop Date: 01/17/22 Status: Ordered Problem List Condition Confirmation Course [...] Name: Ilya De Leon MD Address: Address: [address] [place] [address]
--- OUTSIDE RECORDS SUMMARY | 2022-11-03 10:42 | XMS_ITS | Continuity of Care Document ---
Author Name Unknown Organization [facility] ter Address [address] [place] [id number]- Care Team Providers Care Die Baker Name Role Phone Ilya De Leon MD Primary Care Phys[place] [facility] [place] - 12/05/[address] [address]- Discharge Disposition: A-D/C Home Attending Physician: Cassi [...] Note: ADMIN BY [facility] 2Ain Note: FLUVIRIN MULTIDOSE [facility] AT [facility] [...] 09/30/19 16:26:00 EDT, Cream, [facility] [address] [facility] 3, 1 application Topically 2 times a day,PRN:for dry skin, 158, cm, 08/27/19 13:02:00 EDT, Height, 76, kg... Start Date: 09/30/19 Status: Ordered cetirizine 10 mg oral tablet 1 tablet = 10 mg, By Mouth, Daily, # 30 tablet, 0 Refills, Maintenance, 12/03/20 13:44:00 EDT, Tablet, [facility]/pharmacy #[id number], Partial fill upon patient request if the prescription is for a schedule II opioid drug., 158, cm, 12/03/20 13:27:00 EDT, Height,... Start Date: 12/03/20 Status: Ordered Claritin 10 mg oral tablet 10 mg, 1, tablet, By Mouth, Daily, # 15 tablet, Refills 3, Tot. Refills 3, Maintenance, 11/06/18 8:33:38 EDT, Route to Pharmacy Electronically, [id number], [facility] Start Date: 11/06/18 Status: Ordered clonazePAM 0.5 mg oral tablet 1 tablet = 0.5 mg, By Mouth, Daily, # 1 tablet, 0 Refills, Maintenance, 10/17/20 9:00:00 EDT, Tablet, [facility] 3, Partial fill upon patient request if the prescription is for a scheduleII opioid drug., 158, cm, 09/24/20 10:45:00 EDT, He... Start Date: 10/17/20 Stop Date: 10/18/20 Status: Ordered clonazePAM 0.5 mg oral tablet 1 tablet = 0.5 mg, By Mouth, Daily, # 28 tablet, 0 Refills, Maintenance, 11/18/20 15:29:00 EDT, Tablet, [facility]/pharmacy #[id number], Partial [...] Maintenance, 07/07/19 17:30:00 EDT, [facility] Include [address] [facility] 3, 1 applicator Topically 2 times [...] Gm, 0 Refills, Maintenance, 04/27/20 14:35:00 EST, [place], [facility]-Count[facility] Include [address] [facility] 3, Partial fill upon patient request if theprescription is for a schedule II opioid drug., 1... Start Date: 04/27/20 Stop Date: 05/27/20 Status: Ordered furosemide 20 mg oral tablet 1, tablet, By Mouth, Daily, # 30 tablet, Refills 3, Tot. Refills 0, Maintenance, 10/21/20 11:22:00 EDT, Route to Pharmacy Electronically, [facility] STORE [id number], 158, cm, 10/18/20 10:46:00 EDT, Height, 95.4, kg, 10/16/20 10:11:00 EDT, Dry Weight Start Date: 10/21/20 Status: Ordered halobetasol 0.05% topical ointment See Instructions, APPLY A THIN FILM TO THE AFFECTED SKIN AND RUB IN GENTLY AND COMPLETELY TWICE A DAY, # 50 Gm, 1 Refills, [facility] STORE [id number], 30, APPLY A THIN FILM TO THE AFFECTED SKIN AND RUB IN GENTLY AND COMPLETELY TWICE A DAY, 158, cm, 10/18/20 10:4... Start Date: 12/02/20 Status: Ordered hydrocortisone 1% topical cream 1 application, Topically, 2 times a day, Apply to rash areas, # 60 Gm, 3 Refills, Maintenance, 06/04/19 14:52:00 EDT, Cream, [facility] [address] [facility] 3, 1 application Topically 2 times a day,Instr:Apply to rash areas, 158, cm, 12/24/18 10:25:00 EDT, Hei... Start Date: 06/04/19 Status: Ordered ketoconazole 2% topical shampoo See Instructions, APPLY 1 APPLICATOR TOPICALLY 3X PER WEEK, # 120 mL, 3 Refills, [facility] STORE [id number], 30, APPLY 1 APPLICATOR TOPICALLY 3X PER [...] 12/26/20 11:39:00 EDT, 09/24/20 11:38:00 EDT, Ointment, [id number], Partial fill upon patient request [...] 2 Refills, Maintenance, 10/27/20 12:02:00 EDT, Cream, [facility]/pharmacy #[id number], Partial fill upon patient request if the prescription is for a schedule II opioid drug., 1 application Topically 3 times a day,... Start Date: 10/27/20 Status: Ordered Flagler 0.65% nasal spray 2 sprays, Nares, Both, 4 times a day, # 1 each, 0 Refills, Maintenance, 12/03/20 13:46:00 EDT, [facility]/pharmacy #[id number], Partial [...] 0 Refills, Maintenance, 12/02/20 11:27:00 EDT, Tablet, [facility]/pharmacy #[id number], Partial fill upon patient request if theprescription is for a schedule II opioid drug., 158... Start Date: 12/02/20 Stop Date: 12/16/20 Status: Ordered selenium sulfide 2.5% topical lotion See Instructions, APPLY TOPICALLY TO AFFECTED AREA EVERY DAY FOR 7 DAYS, # 120 mL, 3 Refills, Soft Stop, 07/23/20 11:40:00 EDT, [facility], 7, APPLY TOPICALLY TO AFFECTED AREA [...] Refills, Maintenance, 03/10/20 18:21:00 EST, Cream, [facility] 3, Partial fill upon patient [...] Refills, Maintenance, 09/24/20 11:47:00 EDT, Gel, [facility]/pharmacy #[id number], 1 application Topically 4 [...] recent to oldest [Reference Range]: 1 2 Height 155 cm (12/05/20 10:08 AM) 155 cm (12/05/20 10:03 AM) Weight 95.9 kg (12/05/20 10:08 AM) 95.9 kg (12/05/20 10:03 AM) Oxygen Saturation [94-100 %] 99 % (12/05/20 10:08 AM) 100 % (12/05/20 10:02 AM) Pulse Rate [55-90 bpm] 66 bpm (12/05/20 10:08 AM) 72 bpm (12/05/20 10:02 AM) Body Mass Index [18.5-24.99] 39.92 *>HHI* (12/05/20 10:08 AM) Blood Pressure [90-138/55-84 mm Hg] 145/ 82mm Hg *H* (12/05/20 10:08 AM) Respiratory Rate [16-30 br/min] 18 br/mi n (12/05/20 10:08 AM) Temperature [96.8-100.4 DegF] 98.4 DegF (12/05/20 10:08 AM) Mode of Delivery (Oxygen) Room air (12/05/20 10:08 AM) Blood pressure sites Arm, right (12/05/20 10:08 AM) Temperature Route Oral (12/05/20 10:08 AM) Dry Weight 95.9 kg (12/05/20 10:08 AM) 95.9 kg (12/05/20 10:03 AM) Social History Social History Type Response Smoking Status 5-9 cigarettes (betw een 1/4 to 1/2 pack)/day in last 30 days entered on: 09/08/20 Sex
--- OUTSIDE RECORDS SUMMARY | 2022-11-03 10:42 | XMS_ITS | Continuity of Care Document ---
Author Name Unknown Organization [facility] Address Unknown Care Team Providers Care Derrick Boat Lever Operator Name Role Phone Ilya De Leon MD Primary Care Phys[place] [facility] [place]18[place] [facility] Allergies, Adverse Reactions, Alerts [...] 05/03/21 15:42:00 EST, Route to Pharmacy Electronically, [facility]/pharmacy #[id number], 155, cm, 05/03/21 14:39:00 EST, Height, 95.9, kg, 12/05/20 10:08:00 EDT, Dry Weight Start Date: 05/03/21 Status: Ordered clonazePAM 0.5 mg oral tablet 1 tablet = 0.5 mg, By Mouth, Daily, # 14 tablet, 0 Refills, Maintenance, 05/16/21 8:22:00 EST, Tablet, [facility]/pharmacy #[id number], SPRAY DRIER OPERATOR HELPER reviewed, covering for Dr. De Leon, 155, cm, 05/03/21 14:39:00 EST, Height, 95.9, kg, 12/05/20 10:08:00 EDT, Dry Weight Start Date: 05/16/21 Stop Date: 05/30/21 Status: Ordered Dovonex 0.005% [...] Gm, 0 Refills, Maintenance, 04/27/20 14:35:00 EST, [place], [facility], Partial fill upon patient request if theprescription is for a schedule II opioid drug., 1... Start Date: 04/27/20 Stop Date: 05/27/20 Status: Ordered furosemide 20 mg oral tablet 1, tablet, By Mouth, Daily, # 30 tablet, Refills 3, Tot. Refills 3, Maintenance, 04/18/21 12:11:00 EST, Route to Pharmacy Electronically, [facility]/pharmacy #[id number], 155, cm, 04/18/21 10:12:00 EST, Height, 95.9, kg, 12/05/20 10:08:00 EDT, Dry Weight Start Date: 04/18/21 Status: Ordered halobetasol 0.05% topical ointment See Instructions, APPLY A THIN FILM TO THE AFFECTED SKIN AND RUB IN GENTLY AND COMPLETELY TWICE A DAY, # 50 Gm, 1 Refills, [facility] STORE [id number], 30, APPLY A THIN FILM TO THE AFFECTED SKIN AND RUB IN GENTLY AND COMPLETELY TWICE A DAY, 155, cm, 12/05/20 10:0... Start Date: 03/15/21 Status: Ordered ketoconazole 2% topical shampoo See Instructions, APPLY 1 APPLICATOR TOPICALLY 3X PER WEEK, # 120 mL, 3 Refills, [facility] STORE [id number], 30, APPLY 1 APPLICATOR TOPICALLY 3X PER [...] Refills, Soft Stop, 07/27/20 11:50:00 EDT, Cream, [facility], 1 applicationTopically Once,Instr:to skin head to feet, remove b... Start Date: 07/27/20 Status: Ordered predniSONE 10 mg oral tablet 1 tablet = 10 mg, By Mouth, Daily, may fill 05/02/21, # 14 tablet, 0 Refills, Maintenance, 05/16/21 8:22:00 EST, [facility]/pharmacy #[id number], Partial fill upon patient request if the prescription is for a schedule II opioid drug., 155, cm, 05/03/21 14:39:00 EST... Start Date: 05/16/21 Stop Date: 05/30/21 Status: Ordered selenium sulfide 2.5% topical lotion [...] Route to Pharmacy Electronically, [facility] STORE [id number], 155, cm, 05/03/21 14:39:00 EST, Height, 95.9, [...]
--- OUTSIDE RECORDS SUMMARY | 2022-11-03 10:42 | XMS_ITS | Continuity of Care Document ---
Author Name Unknown Organization [facility] Address Unknown Care Team Providers Care Training Director Name Role Phone Ilya De Leon MD Primary Care Physician En[place] [facility] [place]s): 10/11/20 - 11/10/20 [facility] Allergies, [...] MULTIDOSE ADMINISTERED AT [facility] Medications acetaminophen 500 mg oral tablet 2 tablet = 1,000 mg, By Mouth, 3 times a day, PRN as needed for fever, not to exceed 3000 mg/day take scheduled three times a day, # 100 tablet, 1 Refills, Acute 12/26/20 11:44:00 EDT, 09/24/20 11:43:00 EDT, Tablet, [facility]/pharmacy #[id number], Partial fill u... Start Date: 09/24/20 Stop [...] Refills, Maintenance, 07/23/20 11:37:00 EDT, Tablet, [facility], Partial fill upon patient request if the prescription is for a schedule II... Start Date: 07/23/20 Stop Date: 08/22/20 Status: Ordered Claritin 10 mg oral tablet 10 mg, 1, tablet, By Mouth, Daily, # 15 tablet, Refills 3, Tot. Refills 3, Maintenance, 11/06/18 8:33:38 EDT, Route to Pharmacy Electronically, [id number], [facility] Start Date: 11/06/18 Status: Ordered clonazePAM 0.5 mg oral tablet 1 tablet = 0.5 mg, By Mouth, Daily, # 28 tablet, 0 Refills, Maintenance, 10/18/20 11:03:00 EDT, Tablet, [facility], Partial fill upon patient request if [...] Refills, Maintenance, 07/16/20 15:11:00 EDT, Tablet, [facility], Partial fill upon patient request if [...] Gm, 0 Refills, Maintenance, 04/27/20 14:35:00 EST, [place], [facility] 3, Partial fill upon patient request if theprescription is for a schedule II opioid drug., 1... Start Date: 04/27/20 Stop Date: 05/27/20 Status: Ordered furosemide 20 mg oral tablet 1, tablet, By Mouth, Daily, # 30 tablet, Refills 3, Tot. Refills 0, Maintenance, 10/21/20 11:22:00 EDT, Route to Pharmacy Electronically, [facility] STORE [id number], 158, cm, 10/18/20 10:46:00 EDT, Height, 95.4, kg, 10/16/20 10:11:00 EDT, Dry Weight Start Date: 10/21/20 Status: Ordered hydrocortisone 1% topical cream 1 application, Topically, 2 times a day, Apply to rash areas, # 60 Gm, 3 Refills, Maintenance, 06/04/19 14:52:00 EDT, Cream, [facility], 1 application Topically [...] 11:39:00 EDT, 09/24/20 11:38:00 EDT, Ointment, [facility]/pharmacy #[id number], Partial fill upon [...] Stop, 07/27/20 11:50:00 EDT, Cream, [facility], 1 applicationTopically Once,Instr:to skin head to feet, remove b... Start Date: 07/27/20 Status: Ordered predniSONE 5 mg oral tablet 1 tablet = 5 mg, By Mouth, 3 times a day, may fill 11/12/20 for 14 days, # 42 tablet, 0 Refills, Maintenance, 11/10/20 8:29:00 EDT, Tablet, [facility]/pharmacy #[id number], Partial fill upon patient request if the prescription is for a schedule II opioid drug., 158,... Start Date: 11/10/20 Stop Date: 11/24/20 Status: Ordered selenium sulfide 2.5% topical lotion See Instructions, APPLY TOPICALLY TO AFFECTED AREA EVERY DAY FOR 7 DAYS, # 120 mL, 3 Refills, Soft Stop, 07/23/20 11:40:00 EDT, [facility], 7, APPLY TOPICALLY TO AFFECTED AREA EVERY DAY FOR 7 DAYS, 158, cm, 07/23/20 11:13:00 EDT, H... Start Date: 07/23/20 Status: Ordered Shingrix intramuscular injection = 0.5 mL, Intramuscular, Once, repeat dose in 2 to 6 months, # 2 each, 0 Refills, Soft Stop, 05/27/20 11:03:00 EDT, Powder, [facility], Partial fill upon patient request if [...] Refills, Maintenance, 03/10/20 18:21:00 EST, Cream, [facility] 3, Partial fill upon [...] Refills, Maintenance, 09/24/20 11:47:00 EDT, Gel, [facility]/pharmacy #[id number], 1 application Topically 4 times a day,Instr:for knee pain, 158, cm, 09/24/20 10:45:00 EDT, Height, 82, kg, ... Start Date: 09/24/20 Status: Ordered Problem List Condition Effective Dates Status Health Status Inform ant Opioid type dependence, continuous(Confirmed) 1 Active 1Client had been seen by Jazz Francois at [facility]. Client has no-showed to last appt and today.She will be targetted for closing if she does not responde to correspondence that will be sent on 02/14/13 Social History Social History Type Response Smoking Status 5-9 cigarettes (betw een 1/4 to 1/2 pack)/day in last 30 days entered on: 09/08/20 Sex
--- OUTSIDE RECORDS SUMMARY | 2022-11-03 10:42 | XMS_ITS | Continuity of Care Document ---
Author Name Unknown Organization [facility] Address [address] [place] [address]- Care Team Providers Care Miner Assistant Name Role Phone Ilya De Leon MD Primary Care Physician [place] [facility] [place] - 01/11/22 [facility] [address]- [place] Allergies, Adverse Reactions, Alerts Substance Reaction [...] ADMINISTERED AT [facility] Medications acetaminophen 650 mg oral tablet, extended release 2 tablet = 1,300 mg, By Mouth, Every 8 hours, # 100 tablet, 1 Refills, Maintenance, 06/29/21 15:10:00 EDT, ER Tablet, [id number], Partial fill upon patient request if the prescription is for a schedule II opioid drug., 155, cm, 05/30/21 15:34:... Start Date: 06/29/21 Status: Ordered capsaicin 0.025% topical cream See Instructions, APPLY TO AFFECTED AREA TWICE A DAY, # 60 Gm, 1 Refills, [facility] STORE [id number], 30, APPLY TO AFFECTED AREA TWICE A DAY, 155, cm, 05/30/21 15:34:00 EDT, Height, 95.9, kg, 12/05/20 10:08:00 EDT, Dry Weight Start Date: 05/31/21 Status: Ordered Cavilon Emollient topical cream 1 application, Topically, 2 times a day, PRN for dry skin, # 454 Gm, 1 Refills, Maintenance, 09/30/19 16:26:00 EDT, Cream, [facility] 3, 1 application Topically 2 times a day,PRN:for dry skin, 158, cm, 08/27/19 13:02:00 EDT, Height, 76, kg... Start Date: 09/30/19 Status: Ordered clonazePAM 0.5 mg oral tablet 1 tablet = 0.5 mg, By Mouth, Daily at bedtime, May fill 12/09/21 and weekly on Fridays for3 weeks, #7 tablet, 2 Refills, Maintenance, 12/06/21 10:38:00 EDT, Tablet, [facility], FILING CLERK reviewed, covering for Dr. De Leon, 155, cm, 09/28... Start Date: 12/06/21 Stop Date: 12/27/21 Status: Ordered clonazePAM 0.5 mg oral tablet 1 tablet = 0.5 mg, By Mouth, Daily at bedtime, May fill 12/30/21 and weekly on Fridays for3 weeks, # 7 tablet, 2 Refills, Maintenance, 12/27/21 16:07:00 EDT, Tablet, [facility], FILING CLERK reviewed, covering for Dr. De Leon, 155, cm, ... Start Date: 12/27/21 Stop Date: 01/17/22 Status: Ordered coal tar topical 1% lotion See Instructions, applyTopically Daily at bedtime, # 120 mL, 3 Refills, Maintenance, 10/26/21 15:45:00 EDT, [facility], Partial fill upon patient request if the prescription is for a schedule II opioid drug., applyTopically Daily a... Start Date: 10/26/21 Status: Ordered Dovonex 0.005% topical cream 1 applicator, Topically, 2 times a day, # 60 Gm, 5 Refills, Maintenance, 07/07/19 17:30:00 EDT, [facility] 3, 1 applicator Topically 2 times a day,x30 days, 158, cm, 12/24/18 10:25:00 EDT, Height, 76, kg, 04/12/19 15:31:00 EST, Dry Weight Start Date: 07/07/19 Stop Date: 01/03/20 Status: Ordered Eucerin Unscented topical lotion See Instructions, apply as frequently as needed, # 1 each, 0 Refills, Maintenance, 09/28/21 12:23:00 EDT, [facility], Partial fill upon patient request if the prescription is for a schedule II opioid drug., apply as frequently as n... Start Date: 09/28/21 Status: Ordered fluticasone 50 mcg/inh nasal spray 1 sprays, Nares, Both, 2 times a day, in each nostril. for allergies, # 16 Gm, 0 Refills, Maintenance, 04/27/20 14:35:00 EST, [place], [facility] 3, Partial fill upon patient request if theprescription is for a schedule II opioid drug., 1... Start Date: 04/27/20 Stop Date: 05/27/20 Status: Ordered halobetasol 0.05% topical ointment See Instructions, APPLY A THIN FILM TO THE AFFECTED SKIN AND RUB IN GENTLY AND COMPLETELY TWICE A DAY, # 50 Gm, 1 Refills, Maintenance, 10/26/21 15:44:00 EDT, [facility], 30, APPLY A THIN FILM TO THE AFFECTED SKIN AND RUB IN GENTLY... Start Date: 10/26/21 Status: Ordered hydrocortisone 1% topical cream 1 application, Topically, 2 times a day, # 30 Gm, 0 Refills, Maintenance, 06/17/21 11:42:00 EDT, Cream, [facility] 3, Partial fill upon patient request if the prescription is for a schedule II opioid drug., 1 application Topically 2 times... Start Date: 06/17/21 Status: Ordered ketoconazole 2% topical shampoo See Instructions, APPLY 1 APPLICATOR TOPICALLY 3X PER WEEK, # 120 mL, 3 Refills, Maintenance, 12/27/21 19:30:00 EDT, [facility] STORE [id number], 30, APPLY 1 APPLICATOR TOPICALLY 3X PER WEEK, 155, cm, 12/12/21 16:00:00 EDT, Height, 106.5, kg, 09/14/21 9:38:00 EDT... Start Date: 12/27/21 Status: Ordered loratadine 10 mg oral tablet 1, tablet, By Mouth, Daily, # 90 tablet, Refills 1, Tot. Refills 1, Maintenance, 11/01/21 15:19:00 EDT, Route to Pharmacy Electronically, [facility]/pharmacy #[id number], 155, cm, 09/28/21 12:06:00 EDT, Height, 106.5, kg, 09/14/21 9:38:00 EDT, Dry Weight Start Date: 11/01/21 Status: Ordered Methadone By Mouth, 0 Refills, Maintenance Start Date: 12/25/11 Status: Ordered mupirocin 2% topical cream 1 application, Topically, 3 times a day, # 30 Gm, 2 Refills, Maintenance, 03/08/21 10:26:00 EST, Cream, [facility]/pharmacy #[id number], Partial fill upon patient request if the prescription is for a schedule II opioid drug., 1 application Topically 3 times a day,... Start Date: 03/08/21 Status: Ordered permethrin 5% topical cream 1 application, Topically, Once, to skin head to feet, remove by washing after 8 to 14 hours, # 60 Gm, 0 Refills, Soft Stop, 07/27/20 11:50:00 EDT, Cream, [facility], 1 applicationTopically Once,Instr:to skin head to feet, remove b... Start Date: 07/27/20 Status: Ordered predniSONE 10 mg oral tablet See Instructions, May fill 12/09/21 and weekly on Fridays for 3 weeks, # 14 tablet, 2 Refills, 12/06/21 10:38:00 EDT, [facility], 155, cm, 09/28/21 12:06:00 EDT, Height, 106.5, kg,09/14/21 9:38:00 EDT, Dry Weight Start Date: 12/06/21 Status: Ordered predniSONE 10 mg oral tablet See Instructions, May fill 12/30/21 and weekly on Fridays for 3 weeks, # 14 tablet, 2 Refills, 12/27/21 16:07:00 EDT, [facility], 155, cm, 12/12/21 16:00:00 EDT, Height, 106.5, kg, 09/14/21 9:38:00 EDT, Dry Weight Start Date: 12/27/21 Status: Ordered selenium sulfide 2.5% topical lotion See Instructions, APPLY TOPICALLY TO AFFECTED AREA EVERY DAY FOR 7 DAYS, # 120 mL, 3 Refills, Soft Stop, 10/26/21 15:43:00 EDT, [facility], 7, APPLY TOPICALLY TO AFFECTED AREA EVERY DAY FOR 7 DAYS, 155, cm, 09/28/21 12:06:00 EDT, H... Start Date: 10/26/21 Status: Ordered tiZANidine 2 mg oral tablet 1, tablet, By Mouth, 3 times a day, # 60 tablet, Refills 0, Route to Pharmacy Electronically, [facility] STORE [id number], 155, cm, 05/03/21 14:39:00 EST, Height, 95.9, kg, 12/05/20 10:08:00 EDT, Dry Weight Start Date: 05/09/21 Status: Ordered traMADol 50 mg oral tablet 1 tablet = 50 mg, By Mouth, Every 8 hours, PRN Pain , Severe, for 7 days, May fill 12/30/21 and weekly on Fridays for3 weeks, # 21 tablet, 2 Refills, Acute 01/17/22 16:07:00 EST, 12/27/21 16:07:00 EDT, Tablet, [facility], Partial f... Start Date: 12/27/21 Stop [...] Name: Ilya De Leon MD Address: Address: [address] [place] [id number]
--- OUTSIDE RECORDS SUMMARY | 2022-11-03 10:42 | XMS_ITS | Continuity of Care Document ---
Author Name Unknown Organization [facility] Address [address] [place] [id number]- Care Team Providers Care Aws Consultant Name Role Phone Ilya De Leon MD Primary Care Physician Encounter [facility] Date(s): 10/21/21 - 11/20/21 [facility]/[address] [address]- [place] Allergies, Adverse Reactions, Alerts Substance Reaction [...] Maintenance, 06/29/21 15:10:00 EDT, ER Tablet, [id number], Partial fill upon patient request if the prescription is for a schedule II opioid drug., 155, cm, 05/30/21 15:34:... Start Date: 06/29/21 Status: Ordered capsaicin 0.025% topical cream See Instructions, APPLY TO AFFECTED AREA TWICE A DAY, # 60 Gm, 1 Refills, [id number], 30, APPLY TO AFFECTED AREA TWICE A DAY, 155, cm, 05/30/21 15:34:00 EDT, Height, 95.9, kg, 12/05/20 10:08:00 EDT, Dry Weight Start Date: 05/31/21 Status: Ordered Cavilon Emollient topical cream 1 application, Topically, 2 times a day, PRN for dry skin, # 454 Gm, 1 Refills, Maintenance, 09/30/19 16:26:00 EDT, Cream, [facility], 1 application Topically 2 times a day,PRN:for dry skin, 158, cm, 08/27/19 13:02:00 EDT, Height, 76, kg... Start Date: 09/30/19 Status: Ordered clonazePAM 0.5 mg oral tablet 1 tablet = 0.5 mg, By Mouth, Daily at bedtime, May fill 11/18/21 and weekly on Fridays for3 weeks, # 7 tablet, 2 Refills, Maintenance, 11/17/21 17:35:00 EDT, Tablet, [facility], PMPreviewed, covering for Dr. De Leon, 155, cm, ... Start Date: 11/17/21 Stop Date: 12/08/21 Status: Ordered clonazePAM 0.5 mg oral tablet 1 tablet = 0.5 mg, By Mouth, Daily at bedtime, May fill 11/04/21, # 7 tablet, 0 Refills, Maintenance, 11/03/21 9:35:00 EDT, Tablet, [facility], [facility] [place] reviewed, covering for Dr. De Leon, 155, cm, 09/28/21 12:06:00 EDT, Height, 106.5, k... Start Date: 11/03/21 Stop Date: 11/10/21 Status: Ordered clonazePAM 0.5 mg oral tablet 1 tablet = 0.5 mg, By Mouth, Daily at bedtime, May fill 11/11/21, # 7 tablet, 0 Refills, Maintenance,11/10/21 14:18:00 EDT, Tablet, [facility], [employer] reviewed, covering for Dr. De Leon, 155, cm, 09/28/21 12:06:00 EDT, Height, 106.5, k... Start Date: 11/10/21 Stop Date: 11/17/21 Status: Ordered clonazePAM 0.5 mg oral tablet 1 tablet = 0.5 mg, By Mouth, Daily at bedtime, May cammie l 09/22/21, # 7 tablet, 0 Refills, Maintenance, 09/21/21 7:19:00 EDT, Tablet, [facility], [employer] reviewed, covering for Dr. De Leon, 155, [...] 1 Refills, Maintenance, 09/28/21 12:24:00 EDT, Foam, [facility], Partial fill upon patient request if the prescription is for a schedule II opioid drug., 1 application Topically 4... Start Date: 09/28/21 Status: Ordered Dovonex 0.005% topical cream 1 applicator, Topically, 2 times a day, # 60 Gm, 5 Refills, Maintenance, 07/07/19 17:30:00 EDT, [facility] 3, 1 applicator Topically 2 times [...] Gm, 0 Refills, Maintenance, 04/27/20 14:35:00 EST, [place], [facility] 3, Partial fill upon [...] 06/17/21 11:42:00 EDT, Cream, [facility] 3, Partial fill upon patient request if the prescription is for a schedule II opioid drug., 1 application Topically 2 times... Start Date: 06/17/21 Status: Ordered ketoconazole 2% topical shampoo See Instructions, APPLY 1 APPLICATOR TOPICALLY 3X PER WEEK, # 120 mL, 3 Refills, [id number], 30, APPLY 1 APPLICATOR TOPICALLY 3X PER WEEK, 155, cm, 05/30/21 15:34:00 EDT, Height, 95.9, kg, 12/05/20 10:08:00 EDT, Dry Weight Start Date: 08/02/21 Status: Ordered loratadine 10 mg oral tablet 1, tablet, By Mouth, Daily, # 90 tablet, Refills 1, Tot. Refills 1, Maintenance, 11/01/21 15:19:00 EDT, Route to Pharmacy Electronically, [facility]/pharmacy #[id number], 155, cm, 09/28/21 12:06:00 EDT, Height, 106.5, kg, 09/14/21 9:38:00 EDT, Dry Weight Start Date: 11/01/21 Status: Ordered Methadone By Mouth, 0 Refills, Maintenance Start Date: 12/25/11 Status: Ordered mupirocin 2% topical cream 1 application, Topically, 3 times a day, # 30 Gm, 2 Refills, Maintenance, 03/08/21 10:26:00 EST, Cream, [facility]/pharmacy #[id number], Partial [...] 14 tablet, 2 Refills, 11/17/21 17:35:00 EDT, [facility], 155, cm, 09/28/21 12:06:00 EDT, Height, 106.5, kg, 09/14/21 9:38:00 EDT, Dry Weight Start Date: 11/17/21 Status: Ordered predniSONE 10 mg oral tablet See Instructions, i pill 2 times daily. May fill 11/04/21, # 14 tablet, 0 Refills, 11/03/21 9:35:00 EDT, [facility], 155, cm, 09/28/21 12:06:00 EDT, Height, 106.5, kg, 09/14/21 9:38:00 EDT, Dry Weight Start Date: 11/03/21 Status: Ordered predniSONE 10 mg oral tablet See Instructions, i pill 2 times daily. May fill 11/11/21, # 14 tablet, 0 Refills, 11/10/21 14:18:00 EDT, [facility], 155, cm, 09/28/21 12:06:00 EDT, Height, 106.5, kg, 09/14/21 9:38:00 EDT, Dry Weight Start Date: 11/10/21 Status: Ordered selenium sulfide 2.5% topical lotion See Instructions, APPLY TOPICALLY TO AFFECTED AREA EVERY DAY FOR 7 DAYS, # 120 mL, 3 Refills, Soft Stop, 10/26/21 15:43:00 EDT, [facility], 7, APPLY TOPICALLY TO AFFECTED AREA EVERY DAY FOR 7 DAYS, 155, cm, 09/28/21 12:06:00 EDT, H... Start Date: 10/26/21 Status: Ordered tiZANidine 2 mg oral tablet 1, tablet, By Mouth, 3 times a day, # 60 tablet, Refills 0, Route to Pharmacy Electronically, [id number], 155, cm, 05/03/21 14:39:00 EST, Height, 95.9, kg, 12/05/20 10:08:00 EDT, Dry Weight Start Date: 05/09/21 Status: Ordered traMADol 50 mg oral tablet 1 tablet = 50 mg, By Mouth, Every 8 hours, PRN Pain , Severe, for 7 days, May fill 11/18/21 and weekly on Fridays for3 weeks, # 21 tablet, 2 Refills, Acute 12/08/21 17:35:00 EDT, 11/17/21 17:35:00 EDT,Tablet, [facility], Partial cammie... Start Date: 11/17/21 Stop Date: [...] Personnel Name: Ilya De Leon MD Address: [address] [place] [address]
--- OUTSIDE RECORDS SUMMARY | 2022-11-03 10:42 | XMS_ITS | Continuity of Care Document ---
Author Name Unknown Organization [facility] [employer] [facility] [employer] Address [address] [place] [address], [address] [place] [address]- Care Team Providers Care Coder Name Role Phone Ilya De Leon MD Primary Care Physician Encounter [facility] Date(s): 07/16/19 - 09/05/19 [employer] [address] [facility], [address] [place] [address]- [facility] Attending Physician: Peyton Preciado MD Referring Physician: Ilya De Leon MD [...] 11/06/18 8:33:38 EDT, Route to Pharmacy Electronically, [id number], [facility] Start Date: 11/06/18 Status: Ordered Dovonex 0.005% topical cream 1 applicator, Topically, 2 times a day, # 60 Gm, 5 Refills, Maintenance, 07/07/19 17:30:00 EDT, [facility], 1 applicator Topically [...] 0 Refills, Soft Stop, 08/22/19 10:40:00 EDT, [facility] 3, 158, cm, 12/24/18 10:25:00 EDT... Start Date: 08/22/19 Status: Ordered Medrol Dosepak 4 mg oral tablet per label intructions, By Mouth, Once, as on label, # 1 each, 0 Refills, Soft Stop, 08/11/19 20:08:00 EDT, [facility] 3, 158, cm, 12/24/18 10:25:00 EDT, [...] 0 Refills, Soft Stop, 08/27/19 14:17:00 EDT, [facility], 1 applicator Topically 3x per [...] Acute 09/10/19 19:34:00 EDT, 09/05/19 19:34:00 EDT, [facility]/pharmacy #[id number], 158, cm, 08/27/19 13:02:00 EDT, Height, [...]
--- OUTSIDE RECORDS SUMMARY | 2022-11-03 10:42 | XMS_ITS | Continuity of Care Document ---
Author Name Unknown Organization [facility] Address [address] [place] [address]- Care Team Providers Care Medical Laboratory Manager Name Role Phone Ilya De Leon MD Primary Care Physician [place] [facility] [place]s): 08/10/22 - 09/09/22 [facility]/[address] [address]- [place] Allergies, Adverse Reactions, Alerts Substance Reaction [...] Maintenance, 06/29/21 15:10:00 EDT, ER Tablet, [id number], Partial fill upon patient request if the prescription is for a schedule II opioid drug., 155, cm, 05/30/21 15:34:... Start Date: 06/29/21 Status: Ordered Cavilon Emollient topical cream 1 application, Topically, 2 times a day, PRN for dry skin, # 454 Gm, 1 Refills, Maintenance, 09/30/19 16:26:00 EDT, Cream, [facility] 3, 1 application Topically 2 times a day,PRN:for dry skin, 158, cm, 08/27/19 13:02:00 EDT, Height, 76, kg... Start Date: 09/30/19 Status: Ordered cetirizine 10 mg oral tablet, chewable 1 tablet = 10 mg, By Mouth, Daily, PRN for allergy symptoms, # 12 tablet, 4 Refills, Maintenance, 09/04/22 10:28:00 EDT, Chew Tablet, [facility], Partial fill upon patient request ifthe prescription is for a schedule II opioid drug.,... Start Date: 09/04/22 Stop Date: 10/24/22 Status: Ordered cholecalciferol 1000 intl units oral capsule 1 capsule = 25 mcg, By Mouth, Daily, vitamin D, # 100 capsule, 3 Refills, Maintenance, 07/24/22 13:10:00 EDT, Capsule, [facility]/pharmacy #[id number], Partial fill upon patient request if the prescription is fora schedule II opioid drug., 155, cm, 07/17/22 9:50:... Start Date: 07/24/22 Status: Ordered clonazePAM 0.5 mg oral tablet 1 tablet = 0.5 mg, By Mouth, 2 times a day, Increaseddose May weekly on Fridays for 4 weeks starting on 09/07, # 14 tablet, 3 Refills, Maintenance, 09/06/22 14:07:00 EDT, Tablet, [facility], [facility] reviewed, covering for Dr. De Leon, 1... Start Date: 09/06/22 Stop Date: 10/04/22 Status: Ordered clonazePAM 0.5 mg oral tablet 1 tablet = 0.5 mg, By Mouth, 2 times a day, Increaseddose May weekly on Fridays for 3 weeks starting on 07/21, # 14 tablet, 2 Refills, Maintenance, 07/19/22 12:38:00 EDT, Tablet, [facility], [facility] reviewed, covering for Dr. De Leon, 1... Start Date: 07/19/22 Stop Date: 08/09/22 Status: Ordered Dovonex 0.005% topical cream 1 applicator, Topically, 2 times a day, # 60 Gm, 5 Refills, Maintenance, 05/24/22 12:41:00 EDT, [facility], 1 applicator Topically 2 times a day,x30 days, 155, cm, 01/23/22 14:00:00 EST, Height, 106.5, kg, 09/14/21 9:38:00 EDT, Dry... Start Date: 05/24/22 Stop Date: 11/20/22 Status: Ordered Eucerin Unscented topical lotion See Instructions, apply as frequently as needed, # 1 each, 0 Refills, Maintenance, 09/28/21 12:23:00 EDT, [facility], Partial fill upon patient request if the prescription is for a schedule II opioid drug., apply as frequently as n... Start Date: 09/28/21 Status: Ordered fluticasone 50 mcg/inh nasal spray 1 sprays, Nares, Both, 2 times a day, in each nostril. for allergies, # 16 Gm, 0 Refills, Maintenance, 04/27/20 14:35:00 EST, [place], [facility] 3, Partial fill upon patient request if theprescription is for a schedule II opioid drug., 1... Start Date: 04/27/20 Stop Date: 05/27/20 Status: Ordered halobetasol 0.05% topical ointment See Instructions, APPLY A THIN FILM TO THE AFFECTED SKIN AND RUB IN GENTLY AND COMPLETELY TWICE A DAY, # 50 Gm, 1 Refills, Maintenance, 07/17/22 10:18:00 EDT, [facility], 30, APPLY A THIN FILM TO THE AFFECTED SKIN AND RUB IN GENTLY... Start Date: 07/17/22 Status: Ordered ketoconazole 2% topical shampoo See Instructions, APPLY 1 APPLICATOR TOPICALLY 3X PER WEEK, # 120 mL, 3 Refills, Maintenance, 05/16/22 8:48:00 EST, [id number], 30, APPLY 1 APPLICATOR TOPICALLY 3X PER WEEK, 155, cm, 01/23/22 14:00:00 EST, Height, 106.5, kg, 09/14/21 9:38:00 EDT,... Start Date: 05/16/22 Status: Ordered loratadine 10 mg oral tablet 1, tablet, By Mouth, Daily, # 30 tablet, Refills 5, Tot. Refills 5, Maintenance, 07/04/22 8:39:00 EDT, [id number], 155, cm, 01/23/22 14:00:00 EST, Height, 106.5, kg, 09/14/21 9:38:00 EDT, Dry Weight Start Date: 07/04/22 Status: Ordered Methadone By Mouth, 0 Refills, Maintenance Start Date: 12/25/11 Status: Ordered mupirocin 2% topical cream 1 application, Topically, 3 times a day, # 30 Gm, 2 Refills, Maintenance, 03/08/21 10:26:00 EST, Cream, [id number], Partial fill upon patient request if the prescription is for a schedule II opioid drug., 1 application Topically 3 times a day,... Start Date: 03/08/21 Status: Ordered permethrin 5% topical cream 1 application, Topically, Once, to skin head to feet, remove by washing after 8 to 14 hours, # 60 Gm, 0 Refills, Soft Stop, 07/27/20 11:50:00 EDT, Cream, [facility], 1 applicationTopically Once,Instr:to skin head to feet, remove b... Start Date: 07/27/20 Status: Ordered predniSONE 5 mg oral tablet See Instructions, latest dosage 15 mg daily, now to take 5mg tablet, 3 daily. May fill Fridays starting 09/07/22, # 21 tablet, 3 Refills, Maintenance, 09/06/22 14:07:00 EDT, [facility], Partial fill upon patient request if the pres... Start Date: 09/06/22 Status: Ordered selenium sulfide 2.5% topical lotion See Instructions, APPLY TOPICALLY TO AFFECTED AREA EVERY DAY FOR 7 DAYS, # 120 mL, 3 Refills, Soft Stop, 10/26/21 15:43:00 EDT, [facility], 7, APPLY TOPICALLY TO AFFECTED AREA EVERY DAY FOR 7 DAYS, 155, cm, 09/28/21 12:06:00 EDT, H... Start Date: 10/26/21 Status: Ordered simvastatin 20 mg oral tablet 20 mg, 1, tablet, By Mouth, Daily at bedtime, for cholesterol, # 30 tablet, Refills 5, Tot. Refills5, Maintenance, 07/24/22 13:12:00 EDT, Route to Pharmacy Electronically, [facility]/pharmacy #[id number], Partial fill upon patient request if the prescription is f... Start Date: 07/24/22 Status: Ordered traMADol 50 mg oral tablet 1 tablet = 50 mg, By Mouth, Every 8 hours, PRN Pain , Severe, for 7 days, 4May fill 08/11/22 and weekly on Fridays for 4 weeks, # 21 tablet, 3 Refills, Acute 10/06/22 8:49:00 EDT, 09/08/22 8:49:00 EDT,Tablet, [facility], Partial fi... Start Date: 09/08/22 Stop [...] Personnel Name: Ilya De Leon MD Position: [facility] Physician - Primary Care Member Role: PCP Address: Address: [address] [place] [id number]- Care Team Related Persons Name: JD ALVAREZ Address: home [address] [place] [address]
--- OUTSIDE RECORDS SUMMARY | 2022-11-03 10:42 | XMS_ITS | Continuity of Care Document ---
Author Name Unknown Organization [facility] Address [address] [place] [address]- Care Team Providers Care Felt Puller Name Role Phone Ilya De Leon MD Primary Care Physician Encounter [facility] [place] Date(s): 10/24/19 - 11/23/19 [facility]/[address] [address]- [facility] Allergies, Adverse Reactions, [...] FLUVIRIN MULTIDOSE ADMINISTERED AT [facility] Medications Cavilon Emollient topical cream 1 application, Topically, 2 times a day, PRN for dry skin, # 454 Gm, 1 Refills, Maintenance, 09/30/19 16:26:00 EDT, Cream, [facility], 1 application Topically 2 times a day,PRN:for dry skin, 158, cm, 08/27/19 13:02:00 EDT, Height, 76, kg... Start Date: 09/30/19 Status: Ordered Claritin 10 mg oral tablet 10 mg, 1, tablet, By Mouth, Daily, # 15 tablet, Refills 3, Tot. Refills 3, Maintenance, 11/06/18 8:33:38 EDT, Route to Pharmacy Electronically, [id number], [facility] Start Date: 11/06/18 Status: Ordered Dovonex 0.005% topical cream 1 applicator, Topically, 2 times a day, # 60 Gm, 5 Refills, Maintenance, 07/07/19 17:30:00 EDT, [facility], 1 applicator Topically [...] Maintenance, 06/04/19 14:52:00 EDT, Cream, [facility], 1 application Topically [...] 0 Refills, Soft Stop, 11/11/19 12:38:00 EDT, [facility] 3, 158, cm, 08/10... Start Date: 11/11/19 Status: Ordered Medrol Dosepak 4 mg oral tablet per label intructions, By Mouth, Once, as on label, # 1 each, 0 Refills, Soft Stop, 08/11/19 20:08:00 EDT, [facility] 3, 158, cm, 12/24/18 10:25:00 EDT, [...] 0 Refills, Soft Stop, 08/27/19 14:17:00 EDT, [facility], 1 applicator Topically 3x per week, [...] 3 Refills, Soft Stop, 09/23/19 15:13:00 EDT, [facility], 7, APPLY TOPICALLY TO AFFECTED [...] 0 Refills, Maintenance, 04/06/19 20:19:00 EST, Tablet, [facility], 158, cm, 12/24/18 [...]
--- OUTSIDE RECORDS SUMMARY | 2022-11-03 10:42 | XMS_ITS | Continuity of Care Document ---
Author Name Unknown Organization [facility] Address [address] [place] [address]- Care Team Providers Care Mathematics Education Professor Name Role Phone Ilya De Leon MD Primary Care Physician Encounter [facility] Date(s): 05/13/20 - 07/03/20 [facility] [place] [address]- Attending Physician: Ilya De Leon MD Admitting Physician: Ilya De Leon MD Allergies, Adverse Reactions, Alerts Substance Reaction Severity Status penicillin Rash Active morphine HAND SWELLING Active Toradol Rash Active Motrin tight throat Rash Active Imitrex Chest pain Active trimethoprim-sulfamethoxazole DS 1 Throa t Hives 17-MAY-2013 07:29:57<$> Unknown Active aspirin Ibuprofen tight throat Rash Active Compazine throat swells [...] FLUVIRIN MULTIDOSE ADMINISTERED AT [facility] Medications Cavilon Emollient topical cream 1 [...] 0 Refills, Maintenance, 04/27/20 14:41:00 EST, Tablet, [facility], Partial fill upon patient request if the prescription is for a schedule II opioi... Start Date: 04/27/20 Stop Date: 05/27/20 Status: Ordered Claritin 10 mg oral tablet 10 mg, 1, tablet, By Mouth, Daily, # 15 tablet, Refills 3, Tot. Refills 3, Maintenance, 11/06/18 8:33:38 EDT, Route to Pharmacy Electronically, [id number], [facility] Start Date: 11/06/18 Status: Ordered Dovonex 0.005% topical cream 1 applicator, Topically, 2 times a day, # 60 Gm, 5 Refills, Maintenance, 07/07/19 17:30:00 EDT, [facility], 1 applicator Topically 2 times [...] Gm, 0 Refills, Maintenance, 04/27/20 14:35:00 EST, [place], [facility], Partial fill upon patient request if theprescription is for a schedule II opioid drug., 1... Start Date: 04/27/20 Stop Date: 05/27/20 Status: Ordered hydrocortisone 1% topical cream 1 application, Topically, 2 times a day, Apply to rash areas, # 60 Gm, 3 Refills, Maintenance, 06/04/19 14:52:00 EDT, Cream, [facility], 1 application [...] 0 Refills, Soft Stop, 05/31/20 15:38:00 EDT, [facility]/pharmacy #[id number], 158, cm, 05/27/20... Start Date: 05/31/20 Status: Ordered Medrol Dosepak 4 mg oral tablet per label intructions, By Mouth, Once, as on label, # 1 each, 0 Refills, Soft Stop, 08/11/19 20:08:00 EDT, [facility] 3, 158, cm, 12/24/18 10:25:00 EDT, [...] 10 Refills, Soft Stop, 05/13/20 11:05:00 EST, [facility], [...] 06/26/20 10:50:00 EDT, Route to Pharmacy Electronically, [facility], [...] 0 Refills, Maintenance, 07/01/20 15:29:00 EDT, Tablet, [facility], Partial fill upon patient request if [...] 0 Refills, Maintenance, 06/26/20 10:47:00 EDT, [facility], Partial fill upon patient request if the... Start Date: 06/26/20 Status: Ordered predniSONE 5 mg oral tablet See Instructions, 2 tablets daily for 5 days then 1 daily for 5 days then stop, # 15 tablet, 0 Refills, Maintenance, 06/23/20 13:21:00 EDT, [facility]/pharmacy #[id number], Partial fill upon patient request if the prescription is for a schedule II opioid drug., 15... Start Date: 06/23/20 Status: Ordered selenium sulfide 2.5% topical lotion See Instructions, APPLY TOPICALLY TO AFFECTED AREA EVERY DAY FOR 7 DAYS, # 120 mL, 3 Refills, Maintenance, [facility], 7, APPLY TOPICALLY TO AFFECTED AREA EVERY DAY FOR 7 DAYS, 158, cm, 05/10/20 11:36:00 EST, Height, 76, kg, 04/12/19 15:31:00 E... Start Date: 05/21/20 Status: Ordered selenium sulfide 2.5% topical lotion See Instructions, APPLY TOPICALLY TO AFFECTED AREA EVERY DAY FOR 7 DAYS, # 120 mL, 3 Refills, Maintenance, [facility], 7, APPLY TOPICALLY TO AFFECTED AREA EVERY DAY FOR 7 DAYS, 158, cm, 08/27/19 13:02:00 EDT, Height, 76, kg, 04/12/19 15:31:00 E... Start Date: 03/01/20 Status: Ordered Shingrix intramuscular injection = 0.5 mL, Intramuscular, Once, repeat dose in 2 to 6 months, # 2 each, 0 Refills, Soft Stop, 05/27/20 11:03:00 EDT, Powder, [facility], Partial fill upon patient request [...] 0 Refills, Maintenance, 04/06/19 20:19:00 EST, Tablet, [facility], 158, cm, [...]
--- OUTSIDE RECORDS SUMMARY | 2022-11-03 10:43 | XMS_ITS | Continuity of Care Document ---
Author Name Unknown Organization [facility] Address Unknown Care Team Providers Care Dining Car Steward Name Role Phone Ilya De Leon MD Primary Care Physician Encounter [facility] Date(s): 12/14/20 - 01/13/21 [facility] Allergies, Adverse Reactions, Alerts [...] Maintenance, 09/30/19 16:26:00 EDT, Cream, [facility], 1 application Topically 2 times a day,PRN:for dry skin, 158, cm, 08/27/19 13:02:00 EDT, Height, 76, kg... Start Date: 09/30/19 Status: Ordered cetirizine 10 mg oral tablet 1 tablet = 10 mg, By Mouth, Daily, # 30 tablet, 0 Refills, Maintenance, 12/03/20 13:44:00 EDT, Tablet, [facility]/pharmacy #[id number], Partial fill upon patient request if the prescription is for a schedule II opioid drug., 158, cm, 12/03/20 13:27:00 EDT, Height,... Start Date: 12/03/20 Status: Ordered Claritin 10 mg oral tablet 10 mg, 1, tablet, By Mouth, Daily, # 15 tablet, Refills 3, Tot. Refills 3, Maintenance, 11/06/18 8:33:38 EDT, Route to Pharmacy Electronically, [id number], [facility] Start Date: 11/06/18 Status: Ordered clonazePAM 0.5 mg oral tablet 1 tablet = 0.5 mg, By Mouth, Daily, CRIMINAL INVESTIGATIVE AGENT checked, # 28 tablet, 0 Refills, Maintenance, 12/24/20 11:42:00 EDT, [id number] [...] 0 Refills, Maintenance, 07/16/20 15:11:00 EDT, Tablet, [facility], Partial fill upon patient request if the prescription is f... Start Date: 07/16/20 Status: Ordered Dovonex 0.005% topical cream 1 applicator, Topically, 2 times a day, # 60 Gm, 5 Refills, Maintenance, 07/07/19 17:30:00 EDT, [facility] 3, 1 applicator Topically 2 times [...] Gm, 0 Refills, Maintenance, 04/27/20 14:35:00 EST, [place], [facility], Partial fill upon patient request if theprescription is for a schedule II opioid drug., 1... Start Date: 04/27/20 Stop Date: 05/27/20 Status: Ordered furosemide 20 mg oral tablet 1, tablet, By Mouth, Daily, # 30 tablet, Refills 3, Tot. Refills 0, Maintenance, 10/21/20 11:22:00 EDT, Route to Pharmacy Electronically, [id number], 158, cm, 10/18/20 10:46:00 EDT, Height, 95.4, kg, 10/16/20 10:11:00 EDT, Dry Weight Start Date: 10/21/20 Status: Ordered halobetasol 0.05% topical ointment See Instructions, APPLY A THIN FILM TO THE AFFECTED SKIN AND RUB IN GENTLY AND COMPLETELY TWICE A DAY, # 50 Gm, 1 Refills, [facility] [id number], 30, APPLY A THIN FILM TO THE AFFECTED SKIN AND RUB IN GENTLY AND COMPLETELY TWICE A DAY, 158, cm, 10/18/20 10:4... Start Date: 12/02/20 Status: Ordered hydrocortisone 1% topical cream 1 application, Topically, 2 times a day, Apply to rash areas, # 60 Gm, 3 Refills, Maintenance, 06/04/19 14:52:00 EDT, Cream, [facility], 1 application Topically 2 times a day,Instr:Apply to rash areas, 158, cm, 12/24/18 10:25:00 EDT, Hei... Start Date: 06/04/19 Status: Ordered ketoconazole 2% topical shampoo See Instructions, APPLY 1 APPLICATOR TOPICALLY 3X PER WEEK, # 120 mL, 3 Refills, [employer] [id number], 30, APPLY 1 APPLICATOR TOPICALLY 3X PER [...] 2 Refills, Maintenance, 12/17/20 15:28:00 EDT, Cream, [facility]/pharmacy #[id number], Partial fill upon patient request if the prescription is for a schedule II opioid drug., 1 application Topically 3 times a day,... Start Date: 12/17/20 Status: Ordered Saline 0.65% nasal spray 2 sprays, Nares, Both, 4 times a day, # 1 each, 0 Refills, Maintenance, 12/03/20 13:46:00 EDT, [facility]/pharmacy #[id number], Partial fill [...] Refills, Soft Stop, 07/27/20 11:50:00 EDT, Cream, [facility], 1 applicationTopically Once,Instr:to skin head to feet, remove b... Start Date: 07/27/20 Status: Ordered predniSONE 5 mg oral tablet 1 tablet = 5 mg, By Mouth, 3 times a day, may fill 01/05/21 for 14 days, # 42 tablet, 0 Refills, Maintenance, 01/05/21 12:54:00 EDT, Tablet, [facility]/pharmacy #[id number], Partial fill upon patient request if the prescription is for a schedule II opioid drug., 1... Start Date: 01/05/21 Stop Date: 01/19/21 Status: Ordered selenium sulfide 2.5% topical lotion See Instructions, APPLY TOPICALLY TO AFFECTED AREA EVERY DAY FOR 7 DAYS, # 120 mL, 3 Refills, Soft Stop, 07/23/20 11:40:00 EDT, [facility], 7, APPLY TOPICALLY TO AFFECTED AREA [...] 1 Refills, Maintenance, 03/10/20 18:21:00 EST, Cream, [facility] 3, Partial fill upon patient request [...] been seen by Jazz Francois at [facility]. Client has no-showed to last appt and today.She will be targetted for closing if she does not responde to correspondence that will be sent on 02/14/13 Social History Social History Type Response Smoking Status 5-9 cigarettes (betw een 1/4 to 1/2 pack)/day in last 30 days entered on: 09/08/20 Sex
--- OUTSIDE RECORDS SUMMARY | 2022-11-03 10:43 | XMS_ITS | Continuity of Care Document ---
Author Name Unknown Organization [facility] Address Unknown Care Team Providers Care Examiner Rating Clerk Name Role Phone Ilya De Leon MD Primary Care Physician Encounter [facility] Date(s): 08/31/21 - 09/30/21 [facility] Allergies, Adverse Reactions, Alerts Substance Reaction [...] Refills, Maintenance, 06/29/21 15:10:00 EDT, ER Tablet, [facility]/pharmacy #[id number], Partial fill upon patient request if the prescription is for a schedule II opioid drug., 155, cm, 05/30/21 15:34:... Start Date: 06/29/21 Status: Ordered capsaicin 0.025% topical cream See Instructions, APPLY TO AFFECTED AREA TWICE A DAY, # 60 Gm, 1 Refills, [id number], 30, APPLY TO AFFECTED AREA TWICE A DAY, 155, cm, 03/21/22 15:34:00 EDT, Height, 95.9, kg, 12/05/20 10:08:00 EDT, Dry Weight Start Date: 05/31/21 Status: Ordered Cavilon Emollient topical cream 1 application, Topically, 2 times a day, PRN for dry skin, # 454 Gm, 1 Refills, Maintenance, 09/30/19 16:26:00 EDT, Cream, [facility] 3, 1 application Topically 2 times a day,PRN:for dry skin, 158, cm, 08/27/19 13:02:00 EDT, Height, 76, kg... Start Date: 09/30/19 Status: Ordered clonazePAM 0.5 mg oral tablet 1 tablet = 0.5 mg, By Mouth, Daily at bedtime, July09/30/21, # 7 tablet, 0 Refills, Maintenance, 09/28/21 13:15:00 EDT, Tablet, [facility], [employer]UC[employer] reviewed, covering for Dr. De Leon, 155, cm, 09/28/21 12:06:00 EDT, Height, 106.5,... Start Date: 09/28/21 Stop Date: 10/05/21 Status: Ordered clonazePAM 0.5 mg oral tablet 1 tablet = 0.5 mg, By Mouth, Daily at bedtime, July09/22/21, # 7 tablet, 0 Refills, Maintenance, 09/21/21 7:19:00 EDT, Tablet, [facility], WEB CONTENT PRODUCER reviewed, covering for Dr. De Leon, 155, cm, 09/15/21 10:14:00 EDT, Height, 106.5,... Start Date: 09/21/21 Stop Date: 09/28/21 Status: Ordered coal tar topical 2% foam 1 application, Topically, 4 times a day, # 100 Gm, 1 Refills, Maintenance, 09/28/21 12:24:00 EDT, Foam, [facility], Partial fill upon patient request if the prescription is for a schedule II opioid drug., 1 application Topically 4... Start Date: 09/28/21 Status: Ordered Dovonex 0.005% topical cream 1 applicator, Topically, 2 times a day, # 60 Gm, 5 Refills, Maintenance, 07/07/19 17:30:00 EDT, [facility] 3, 1 applicator Topically 2 times a day,x30 days, 158, cm, 12/24/18 10:25:00 EDT, Height, 76, kg, 04/12/19 15:31:00 EST, Dry Weight Start Date: 07/07/19 Stop Date: 01/03/20 Status: Ordered Eucerin Unscented topical lotion See Instructions, apply as frequently as needed, # 1 each, 0 Refills, Maintenance, 09/28/21 12:23:00 EDT, [facility], Partial fill upon patient request if the prescription is for a schedule II opioid drug., apply as frequently as n... Start Date: 09/28/21 Status: Ordered fluticasone 50 mcg/inh nasal spray 1 sprays, Nares, Both, 2 times a day, in each nostril. for allergies, # 16 Gm, 0 Refills, Maintenance, 04/27/20 14:35:00 EST, [place], [facility] 3, Partial fill upon patient request if theprescription is for a schedule II opioid drug., 1... Start Date: 04/27/20 Stop Date: 05/27/20 Status: Ordered halobetasol 0.05% topical ointment See Instructions, APPLY A THIN FILM TO THE AFFECTED SKIN AND RUB IN GENTLY AND COMPLETELY TWICE A DAY, # 50 Gm, 1 Refills, [facility] [id number], 30, APPLY A THIN FILM TO THE AFFECTED SKIN AND RUB IN GENTLY AND COMPLETELY TWICE A DAY, 155, cm, 12/05/20 10:0... Start Date: 03/15/21 Status: Ordered hydrocortisone 1% topical cream 1 application, Topically, 2 times a day, # 30 Gm, 0 Refills, Maintenance, 06/17/21 11:42:00 EDT, Cream, [facility] 3, Partial fill upon patient request if the prescription is for a schedule II opioid drug., 1 application Topically 2 times... Start Date: 06/17/21 Status: Ordered hydrOXYzine hydrochloride 25 mg oral tablet 1 capsule, By Mouth, 3 times a day, PRN for itching, for 30 days, # 90 capsule, 1 Refills, Acute 10/23/21 14:41:00 EDT, 08/24/21 14:41:00 EDT, Capsule, [facility], Partial fill upon patient request if the prescription is for a sche... Start Date: 08/24/21 Stop Date: 10/23/21 Status: Ordered ketoconazole 2% topical shampoo See Instructions, APPLY 1 APPLICATOR TOPICALLY 3X PER WEEK, # 120 mL, 3 Refills, [facility] [id number], 30, APPLY 1 APPLICATOR TOPICALLY 3X PER WEEK, 155, cm, 05/30/21 15:34:00 EDT, Height, 95.9, kg, 12/05/20 10:08:00 EDT, Dry Weight Start Date: 08/02/21 Status: Ordered loratadine 10 mg oral tablet 1, tablet, By Mouth, Daily, # 15 tablet, Refills 5, Tot. Refills 5, Maintenance, 08/19/21 9:15:00 EDT, [id number] 155, cm, 05/30/21 15:34:00 EDT, [...] Refills, Soft Stop, 07/27/20 11:50:00 EDT, Cream, [facility], 1 applicationTopically Once,Instr:to skin head to feet, remove b... Start Date: 07/27/20 Status: Ordered predniSONE 10 mg oral tablet See Instructions, MADDY 1 TABLETA POR [facility] ANDREW POR 7 RAY, # 7 tablet, 0 Refills, [facility], 155, cm, 08/24/21 14:47:00 EDT, Height, 95.9, kg, 12/05/20 10:08:00 EDT, Dry Weight Start Date: 09/08/21 Status: Ordered predniSONE 10 mg oral tablet See Instructions, 1 tablet BID for 7 days (increased dose) for 09/30, # 14 tablet, 0 Refills, 09/28/21 13:15:00 EDT, [facility], 155, cm, 09/28/21 12:06:00 EDT, Height, 106.5, kg, 09/14/21 9:38:00 EDT, Dry Weight Start Date: 09/28/21 Status: Ordered selenium sulfide 2.5% topical lotion See Instructions, APPLY TOPICALLY TO AFFECTED AREA EVERY DAY FOR 7 DAYS, # 120 mL, 3 Refills, Soft Stop, 09/28/21 12:25:00 EDT, [facility], 7, APPLY TOPICALLY TO AFFECTED AREA EVERY DAY FOR 7 DAYS, 155, cm, 09/28/21 12:06:00 EDT, H... Start Date: 09/28/21 Status: Ordered tiZANidine 2 mg oral tablet 1, tablet, By Mouth, 3 times a day, # 60 tablet, Refills 0, Route to Pharmacy Electronically, [id number], 155, cm, 05/03/21 14:39:00 EST, Height, 95.9, kg, 12/05/20 10:08:00 EDT, Dry Weight Start Date: 05/09/21 Status: Ordered traMADol 50 mg oral tablet 1 tablet = 50 mg, By Mouth, Every 8 hours, PRN Pain , Severe, for 7 days, for 09/30/21, # 21 tablet,0 Refills, Acute 10/05/21 13:15:00 EDT, 09/28/21 13:15:00 EDT, Tablet, [facility], Partial fill upon patient request if [...]
--- OUTSIDE RECORDS SUMMARY | 2022-11-03 10:43 | XMS_ITS | Continuity of Care Document ---
Author Name Unknown Organization [facility] Address Unknown Care Team Providers Care Retail Stocker Name Role Phone Ilya De Leon MD Primary Care Physician Encounter [facility] Date(s): 07/29/21 - 08/28/21 [facility] Allergies, Adverse Reactions, [...] 06/29/21 15:10:00 EDT, ER Tablet, [facility]/pharmacy #[id number], Partial fill upon patient request if the prescription is for a schedule II opioid drug., 155, cm, 05/30/21 15:34:... Start Date: 06/29/21 Status: Ordered capsaicin 0.025% topical cream See Instructions, APPLY TO AFFECTED AREA TWICE A DAY, # 60 Gm, 1 Refills, [facility] [id number], 30, APPLY TO AFFECTED AREA TWICE A DAY, 155, cm, 03/21/22 15:34:00 EDT, Height, 95.9, kg, 12/05/20 10:08:00 EDT, Dry Weight Start Date: 05/31/21 Status: Ordered Cavilon Emollient topical cream 1 application, Topically, 2 times a day, PRN for dry skin, # 454 Gm, 1 Refills, Maintenance, 09/30/19 16:26:00 EDT, Cream, [facility] 3, 1 application Topically 2 times a day,PRN:for dry skin, 158, cm, 08/27/19 13:02:00 EDT, Height, 76, kg... Start Date: 09/30/19 Status: Ordered clonazePAM 0.5 mg oral tablet 1 tablet = 0.5 mg, By Mouth, Daily, May fill 08/12/21, # 14 tablet, 0 Refills, Maintenance, 08/24/21 14:44:00 EDT, Tablet, [facility], INTRAOPERATIVE NEURO TECH reviewed, covering for Dr. De Leon, 155, cm, 05/30/21 15:34:00 EDT, Height, 95.9, kg, 12/05/20... Start Date: 08/24/21 Stop Date: 09/07/21 Status: Ordered Dovonex 0.005% topical cream 1 applicator, Topically, 2 times a day, # 60 Gm, 5 Refills, Maintenance, 07/07/19 17:30:00 EDT, [facility], 1 applicator Topically 2 times a day,x30 days, 158, cm, 12/24/18 10:25:00 EDT, Height, 76, kg, 04/12/19 15:31:00 EST, Dry Weight Start Date: 07/07/19 Stop Date: 01/03/20 Status: Ordered fluticasone 50 mcg/inh nasal spray 1 sprays, Nares, Both, 2 times a day, in each nostril. for allergies, # 16 Gm, 0 Refills, Maintenance, 04/27/20 14:35:00 EST, [place], [facility] 3, Partial fill upon patient request if theprescription is for a schedule II opioid drug., 1... Start Date: 04/27/20 Stop Date: 05/27/20 Status: Ordered furosemide 20 mg oral tablet 1, tablet, By Mouth, Daily, # 30 tablet, Refills 3, Tot. Refills 3, Maintenance, 04/18/21 12:11:00 EST, Route to Pharmacy Electronically, [facility]/pharmacy #[id number], 155, cm, 04/18/21 10:12:00 EST, Height, 95.9, kg, 12/05/20 10:08:00 EDT, Dry Weight Start Date: 04/18/21 Status: Ordered halobetasol 0.05% topical ointment See Instructions, APPLY A THIN FILM TO THE AFFECTED SKIN AND RUB IN GENTLY AND COMPLETELY TWICE A DAY, # 50 Gm, 1 Refills, [facility] [address], 30, APPLY A THIN FILM TO THE AFFECTED SKIN AND RUB IN GENTLY AND COMPLETELY TWICE A DAY, 155, cm, 12/05/20 10:0... Start Date: 03/15/21 Status: Ordered hydrocortisone 1% topical cream 1 application, Topically, 2 times a day, # 30 Gm, 0 Refills, Maintenance, 06/17/21 11:42:00 EDT, Cream, [facility] 3, Partial fill upon patient request if the prescription is for a schedule II opioid drug., 1 application Topically 2 times... Start Date: 06/17/21 Status: Ordered hydrOXYzine hydrochloride 25 mg oral tablet 1 capsule, By Mouth, 3 times a day, PRN for itching, for 30 days, # 90 capsule, 1 Refills, Acute 10/23/21 14:41:00 EDT, 08/24/21 14:41:00 EDT, Capsule, [facility], Partial fill upon patient request if the prescription is for a sche... Start Date: 08/24/21 Stop Date: 10/23/21 Status: Ordered ketoconazole 2% topical shampoo See Instructions, APPLY 1 APPLICATOR TOPICALLY 3X PER WEEK, # 120 mL, 3 Refills, [facility] [id number], 30, APPLY 1 APPLICATOR TOPICALLY 3X PER WEEK, 155, cm, 05/30/21 15:34:00 EDT, Height, 95.9, kg, 12/05/20 10:08:00 EDT, Dry Weight Start Date: 08/02/21 Status: Ordered loratadine 10 mg oral tablet 1, tablet, By Mouth, Daily, # 15 tablet, Refills 5, Tot. Refills 5, Maintenance, 08/19/21 9:15:00 EDT, [id number], 155, cm, 05/30/21 15:34:00 EDT, Height, 95.9, kg, 12/05/20 10:08:00 EDT, Dry Weight Start Date: 08/19/21 Status: Ordered Methadone By Mouth, 0 Refills, Maintenance Start Date: 12/25/11 Status: Ordered mupirocin 2% topical cream 1 application, Topically, 3 times a day, # 30 Gm, 2 Refills, Maintenance, 03/08/21 10:26:00 EST, Cream, [id number], Partial fill upon patient request [...] Physician Stop 08/31/21 14:44:00 EDT,08/24/21 14:44:00 EDT, [facility], 155, cm, 05/30/21 15:34:00 EDT, Height, 95.9, kg, 12/05/20 10:08:00 EDT, Dry Weight Start Date: 08/24/21 Stop Date: 08/31/21 Status: Ordered selenium sulfide 2.5% topical lotion See Instructions, APPLY TOPICALLY TO AFFECTED AREA EVERY DAY FOR 7 DAYS, # 120 mL, 3 Refills, Soft Stop, 04/26/21 18:07:00 EST, [id number], 7, APPLY TOPICALLY TO AFFECTED AREA EVERY DAY FOR 7DAYS, 155, cm, 04/18/21 10:12:00 EST, Height, 95.9,... Start Date: 04/26/21 Status: Ordered tiZANidine 2 mg oral tablet 1, tablet, By Mouth, 3 times a day, # 60 tablet, Refills 0, Route to Pharmacy Electronically, [facility] [id number], 155, cm, 05/03/21 14:39:00 EST, Height, 95.9, kg, 12/05/20 10:08:00 EDT, Dry Weight Start Date: 05/09/21 Status: Ordered traMADol 50 mg oral tablet 1 tablet = 50 mg, By Mouth, Every 12 hours, PRN Pain , Severe, for 7 days, # 14 tablet, 0 Refills, Acute 08/31/21 14:44:00 EDT, 08/24/21 14:44:00 EDT, Tablet, [facility], Partial fill upon patient request if [...]
--- OUTSIDE RECORDS SUMMARY | 2022-11-03 10:43 | XMS_ITS | Continuity of Care Document ---
Author Name Unknown Organization [facility] ter Address [address] [place] [id number]- Care Team Providers Care Paraprofessional Interpreter Name Role Phone Ilya De Leon MD Primary Care Physician Encounter [facility] Date(s): 09/14/21 - 09/14/[address] [address]- Discharge Disposition: A-D/C Walkout Attending Physician: Not [...] lizbeth 1Admin Note: ADMIN BY [facility] 2Ain Note: FLUVIRIN MULTIDOSE ADMINISTERED AT [facility] Medications acetaminophen 650 mg oral tablet, extended release 2 tablet = 1,300 mg, By Mouth, Every 8 hours, # 100 tablet, 1 Refills, Maintenance, 06/29/21 15:10:00 EDT, ER Tablet, [id number], Partial fill upon patient request if the prescription is for a schedule II opioid drug., 155, cm, 05/30/21 15:34:... Start Date: 06/29/21 Status: Ordered capsaicin 0.025% topical cream See Instructions, APPLY TO AFFECTED AREA TWICE A DAY, # 60 Gm, 1 Refills, [facility] [id number], 30, APPLY TO AFFECTED AREA TWICE A DAY, 155, cm, 05/30/21 15:34:00 EDT, Height, 95.9, kg, 12/05/20 10:08:00 EDT, Dry Weight Start Date: 05/31/21 Status: Ordered Cavilon Emollient topical cream 1 application, Topically, 2 times a day, PRN for dry skin, # 454 Gm, 1 Refills, Maintenance, 09/30/19 16:26:00 EDT, Cream, [facility], 1 application Topically 2 times a day,PRN:for dry skin, 158, cm, 08/27/19 13:02:00 EDT, Height, 76, kg... Start Date: 09/30/19 Status: Ordered clonazePAM 0.5 mg oral tablet 1 tablet = 0.5 mg, By Mouth, Daily, May fill 08/12/21, # 7 tablet, 0 Refills, Maintenance, 09/08/21 15:37:00 EDT, Tablet, [facility], [facility] reviewed, covering for Dr. De Leon, 155, cm, 08/24/21 14:47:00 EDT, Height, 95.9, kg, 12/05/20... Start Date: 09/08/21 Stop Date: 09/15/21 Status: Ordered Dovonex 0.005% topical cream 1 applicator, Topically, 2 times a day, # 60 Gm, 5 Refills, Maintenance, 07/07/19 17:30:00 EDT, [facility], 1 applicator Topically 2 times a day,x30 days, 158, cm, 12/24/18 10:25:00 EDT, Height, 76, kg, 04/12/19 15:31:00 EST, Dry Weight Start Date: 07/07/19 Stop Date: 01/03/20 Status: Ordered fluticasone 50 mcg/inh nasal spray 1 sprays, Nares, Both, 2 times a day, in each nostril. for allergies, # 16 Gm, 0 Refills, Maintenance, 04/27/20 14:35:00 EST, [place], [facility], Partial fill upon patient request if theprescription is for a schedule II opioid drug., 1... Start Date: 04/27/20 Stop Date: 05/27/20 Status: Ordered halobetasol 0.05% topical ointment See Instructions, APPLY A THIN FILM TO THE AFFECTED SKIN AND RUB IN GENTLY AND COMPLETELY TWICE A DAY, # 50 Gm, 1 Refills, [facility] [id number], 30, APPLY A THIN FILM TO THE AFFECTED SKIN AND RUB IN GENTLY AND COMPLETELY TWICE A DAY, 155, cm, 12/05/20 10:0... Start Date: 03/15/21 Status: Ordered hydrocortisone 1% topical cream 1 application, Topically, 2 times a day, # 30 Gm, 0 Refills, Maintenance, 06/17/21 11:42:00 EDT, Cream, [facility], Partial fill upon patient request [...] PER WEEK, # 120 mL, 3 Refills, [facility], 30, APPLY 1 APPLICATOR TOPICALLY 3X PER WEEK, 155, cm, 05/30/21 15:34:00 EDT, Height, 95.9, kg, 12/05/20 10:08:00 EDT, Dry Weight Start Date: 08/02/21 Status: Ordered loratadine 10 mg oral tablet 1, tablet, By Mouth, Daily, # 15 tablet, Refills 5, Tot. Refills 5, Maintenance, 08/19/21 9:15:00 EDT, [id number], cm, 05/30/21 15:34:00 EDT, Height, 95.9, kg, 12/05/20 10:08:00 EDT, Dry Weight Start Date: 08/19/21 Status: Ordered Methadone By Mouth, 0 Refills, Maintenance Start Date: 12/25/11 Status: Ordered mupirocin 2% topical cream 1 application, Topically, 3 times a day, # 30 Gm, 2 Refills, Maintenance, 03/08/21 10:26:00 EST, Cream, [id number] fill upon patient request [...] 7 RAY, # 7 tablet, 0 Refills, [facility], 155, cm, 08/24/21 14:47:00 EDT, Height, 95.9, kg, 12/05/20 10:08:00 EDT, Dry Weight Start Date: 09/08/21 Status: Ordered selenium sulfide 2.5% topical lotion See Instructions, APPLY TOPICALLY TO AFFECTED AREA EVERY DAY FOR 7 DAYS, # 120 mL, 3 Refills, Soft Stop, 04/26/21 18:07:00 EST, [facility]/pharmacy #[id number], 7, APPLY TOPICALLY TO AFFECTED AREA EVERY DAY FOR 7DAYS, 155, cm, 04/18/21 10:12:00 EST, Height, 95.9,... Start Date: 04/26/21 Status: Ordered tiZANidine 2 mg oral tablet 1, tablet, By Mouth, 3 times a day, # 60 tablet, Refills 0, Route to Pharmacy Electronically, [facility] [id number], 155, cm, 05/03/21 14:39:00 EST, Height, 95.9, kg, 12/05/20 10:08:00 EDT, Dry Weight Start Date: 05/09/21 Status: Ordered traMADol 50 mg oral tablet 1 tablet = 50 mg, By Mouth, Every 8 hours, PRN Pain , Severe, for 7 days, # 21 tablet, 0 Refills, Acute 09/15/21 15:37:00 EDT, 09/08/21 15:37:00 EDT, Tablet, [facility], Partial fill upon patient request if [...] oldest [Reference Range]: 1 2 3 Weight 106.5 kg (09/14/21 9:38 AM) 106.5 kg (09/14/21 9:21 AM) Oxygen Saturation [94-100 %] 98 % (09/14/21 2:38 PM) 100 % (09/14/21 12:33 PM) 97 % (09/14/21 9:21 AM) Pulse Rate [55-90 bpm] 76 bpm (09/14/21 2:38 PM) 83 bpm (09/14/21 12:33 PM) 89 bpm (09/14/21 9:21 AM) Blood Pressure [90-138/55-84 mm Hg] 117/82mm Hg (09/14/21 2:38 PM) 131/101mm Hg (09/14/21 12:33 PM) 133/91mm Hg (09/14/21 9:21 AM) Temperature [96.8-100.4 DegF] 98.2 DegF (09/14/21 2:38 PM) 98.2 DegF (09/14/21 12:33 PM) 98.7 DegF (09/14/21 9:21 AM) Mode of Delivery (Oxygen) Room air (09/14/21 2:38 PM) Room air (09/14/21 12:33 PM) Room air (09/14/21 9:21 AM) Blood pressure sites Arm, right (09/14/21 2:38 PM) Arm, right (09/14/21 12:33 PM) Arm, right (09/14/21 9:21 AM) Temperature Route Oral (09/14/21 2:38 PM) Oral (09/14/21 12:33 PM) Oral (09/14/21 9:21 AM) Dry Weight 106.5 kg (09/14/21 9:38 AM) 106.5 kg (09/14/21 9:21 AM) Weight Obtained Via Standing scale (09/14/21 9:21 AM) Social History Social History Type Response Smoking Status 10 or more cigarette s (1/2 pack or more)/day in last 30 days entered on: 04/18/21 Sex
--- OUTSIDE RECORDS SUMMARY | 2022-11-03 10:43 | XMS_ITS | Continuity of Care Document ---
Author Name Unknown Organization [facility] Address [address] [place] [address]- Care Team Providers Care Acid Cleaner Name Role Phone Ilya De Leon MD Primary Care Physician Encounter [facility] [place] Date(s): 05/24/20 - 06/23/20 [facility]/[address] [address]- Allergies, Adverse Reactions, Alerts Substance Reaction Severity [...] Maintenance, 09/30/19 16:26:00 EDT, Cream, [facility], 1 application Topically 2 times a day,PRN:for dry skin, 158, cm, 08/27/19 13:02:00 EDT, Height, 76, kg... Start Date: 09/30/19 Status: Ordered cetirizine 10 mg oral tablet 1 tablet = 10 mg, By Mouth, Daily, for allergies. Do NOT take with claritin, # 30 tablet, 0 Refills, Maintenance, 04/27/20 14:41:00 EST, Tablet, [facility], Partial fill upon patient request if the prescription is for a schedule II opioi... Start Date: 04/27/20 Stop Date: 05/27/20 Status: Ordered Claritin 10 mg oral tablet 10 mg, 1, tablet, By Mouth, Daily, # 15 tablet, Refills 3, Tot. Refills 3, Maintenance, 11/06/18 8:33:38 EDT, Route to Pharmacy Electronically, [id number], [facility] Start Date: 11/06/18 Status: Ordered Dovonex 0.005% topical cream 1 applicator, Topically, 2 times a day, # 60 Gm, 5 Refills, Maintenance, 07/07/19 17:30:00 EDT, [facility], 1 applicator Topically 2 times a [...] Gm, 0 Refills, Maintenance, 04/27/20 14:35:00 EST, [place], [facility], Partial fill upon patient request if theprescription is for a schedule II opioid drug., 1... Start Date: 04/27/20 Stop Date: 05/27/20 Status: Ordered hydrocortisone 1% topical cream 1 application, Topically, 2 times a day, Apply to rash areas, # 60 Gm, 3 Refills, Maintenance, 06/04/19 14:52:00 EDT, Cream, [facility], 1 application Topically [...] 0 Refills, Soft Stop, 05/31/20 15:38:00 EDT, [facility]/pharmacy #[id number], 158, cm, 05/27/20... Start Date: 05/31/20 Status: Ordered Medrol Dosepak 4 mg oral tablet per label intructions, By Mouth, Once, as on label, # 1 each, 0 Refills, Soft Stop, 08/11/19 20:08:00 EDT, [facility], 158, cm, 12/24/18 [...] 10 Refills, Soft Stop, 05/13/20 11:05:00 EST, [facility], 1 applicator Topically 3x [...] tablet, 0 Refills, Maintenance, 06/23/20 13:21:00 EDT, [facility]/pharmacy #[id number], Partial fill upon patient request if the prescription is for a schedule II opioid drug., 15... Start Date: 06/23/20 Status: Ordered selenium sulfide 2.5% topical lotion See Instructions, APPLY TOPICALLY TO AFFECTED AREA EVERY DAY FOR 7 DAYS, # 120 mL, 3 Refills, Maintenance, [facility], 7, APPLY TOPICALLY TO AFFECTED AREA EVERY DAY FOR 7 DAYS, 158, cm, 05/10/20 11:36:00 EST, Height, 76, kg, 04/12/19 15:31:00 E... Start Date: 05/21/20 Status: Ordered selenium sulfide 2.5% topical lotion See Instructions, APPLY TOPICALLY TO AFFECTED AREA EVERY DAY FOR 7 DAYS, # 120 mL, 3 Refills, Maintenance, [facility], 7, APPLY TOPICALLY TO AFFECTED AREA EVERY DAY FOR 7 DAYS, 158, cm, 08/27/19 13:02:00 EDT, Height, 76, kg, 04/12/19 15:31:00 E... Start Date: 03/01/20 Status: Ordered Shingrix intramuscular injection = 0.5 mL, Intramuscular, Once, repeat dose in 2 to 6 months, # 2 each, 0 Refills, Soft Stop, 05/27/20 11:03:00 EDT, Powder, [facility], Partial fill upon patient request [...] 1 Refills, Maintenance, 03/10/20 18:21:00 EST, Cream, [facility] 3, Partial fill upon patient request [...] 04/06/19 20:19:00 EST, Tablet, [facility] 3, 158, cm, 12/24/18 10:25:00 EDT, Height, 75.5, kg, 04/06/19 17:01:00 EST, Dry Weight Start Date: 04/06/19 Stop Date: 04/13/19 Status: Ordered Problem List Condition Effective Dates Status Health Status Inform ant Opioid type dependence, continuous(Confirmed) 1 Active 1Client had been seen by Jazz Francois at [facility]. Client has no-showed to last appt and today.She will be targetted for closing if she does not responde to correspondence that will be sent on 02/14/13 Social History Social History Type Response Tobacco Use: 4 or less cigar ettes(less than 1/4 pack)/day in last 30 days. Sex
--- OUTSIDE RECORDS SUMMARY | 2022-11-03 10:43 | XMS_ITS | Continuity of Care Document ---
Author Name Unknown Organization [facility] Address [address] [place] [address]- Care Team Providers Care Pocket Assembler Name Role Phone Ilya De Leon MD Primary Care Physician [place] [facility] [place]04[place]22 [place] 08/03/22 [facility]/[address] [address]- [place] Allergies, Adverse Reactions, Alerts Substance Reaction Severity Status penicillin Rash Active Imitrex Chest pain Active Reglan Agitated Active dehydroepiandrosterone 1 Chest pain Act julienne aspirin Ibuprofen tight throat Rash Active morphine HAND SWELLING Active Toradol Rash Active Motrin tight throat Rash Active Compazine throat swells Active trimethoprim-sulfamethoxazole DS 2 Yulya t Hives 17-MAY-2013 07:29:57<$> Unknown Active 1DHEA [...] 02/06/10 Garrett rded 1Admin Note: ADMIN BY [facility] 2Admin Note: FLUVIRIN MULTIDOSE ADMINISTERED AT [facility] Medications acetaminophen 650 mg oral tablet, extended release 2 tablet = 1,300 mg, By Mouth, Every 8 hours, # 100 tablet, 1 Refills, Maintenance, 06/29/21 15:10:00 EDT, ER Tablet, [id number], Partial fill upon patient request if the prescription is for a schedule II opioid drug., 155, cm, 05/30/21 15:34:... Start Date: 06/29/21 Status: Ordered capsaicin 0.025% topical cream See Instructions, APPLY TO AFFECTED AREA TWICE A DAY, # 60 Gm, 1 Refills, [id number], 30, APPLY TO AFFECTED AREA TWICE A [...] 76, kg... Start Date: 09/30/19 Status: Ordered cholecalciferol 1000 intl units oral [...] 2 Refills, Maintenance, 05/24/22 10:44:00 EDT, Tablet, [facility], PROGRAM SERVICES PLANNER reviewed, covering for Dr. De Leon, 155, cm, 01/10... Start Date: 05/24/22 Stop Date: 06/14/22 Status: Ordered clonazePAM 0.5 mg oral tablet 1 tablet = 0.5 mg, By Mouth, Daily at bedtime, May fill 04/14/22 and weekly on Fridays for3 weeks, # 7 tablet, 2 Refills, Maintenance, 04/13/22 10:13:00 EST, Tablet, [facility], PMPreviewed, covering for Marco Antonio Alvarez, cm, 01/23/... Start Date: 04/13/22 Stop Date: 05/04/22 Status: Ordered clonazePAM 0.5 mg oral tablet 1 tablet = 0.5 mg, By Mouth, 2 times a day, Increaseddose July weekly on Fridays for 3 weeks starting on 07/21, # 14 tablet, 2 Refills, Maintenance, 07/19/22 12:38:00 EDT, Tablet, [facility], PROGRAM SERVICES PLANNER reviewed, covering for Dr. De Leon, 1... Start Date: 07/19/22 Stop Date: 08/09/22 Status: Ordered coal tar topical 1% lotion See Instructions, applyTopically Daily at bedtime, # 120 mL, 3 Refills, Maintenance, 10/26/21 15:45:00 EDT, [facility], Partial fill upon patient request if the prescription is for a schedule II opioid drug., applyTopically Daily a... Start Date: 10/26/21 Status: Ordered Dovonex 0.005% topical cream 1 applicator, Topically, 2 times a day, # 60 Gm, 5 Refills, Maintenance, 05/24/22 12:41:00 EDT, [facility], 1 applicator Topically 2 times a day,x30 days, 155, cm, 01/23/22 14:00:00 EST, Height, 106.5, kg, 09/14/21 9:38:00 EDT, Dry... Start Date: 05/24/22 Stop Date: 11/20/22 Status: Ordered Eucerin Unscented topical lotion See Instructions, apply as frequently as needed, # 1 each, 0 Refills, Maintenance, 09/28/21 12:23:00 EDT, [facility], Partial fill upon patient request if the prescription is for a schedule II opioid drug., apply as frequently as n... Start Date: 09/28/21 Status: Ordered fluticasone 50 mcg/inh nasal spray 1 sprays, Nares, Both, 2 times a day, in each nostril. for allergies, # 16 Gm, 0 Refills, Maintenance, 04/27/20 14:35:00 EST, [place], [facility] 3, Partial fill upon patient request if theprescription is for a schedule II opioid drug., 1... Start Date: 04/27/20 Stop Date: 05/27/20 Status: Ordered halobetasol 0.05% topical ointment See Instructions, APPLY A THIN FILM TO THE AFFECTED SKIN AND RUB IN GENTLY AND COMPLETELY TWICE A DAY, # 50 Gm, 1 Refills, Maintenance, 07/17/22 10:18:00 EDT, [facility], 30, APPLY A THIN FILM TO THE AFFECTED SKIN AND RUB IN GENTLY... Start Date: 07/17/22 Status: Ordered ketoconazole 2% topical shampoo See Instructions, APPLY 1 APPLICATOR TOPICALLY 3X PER WEEK, # 120 mL, 3 Refills, Maintenance, 05/16/22 8:48:00 EST, [id number], 30, APPLY 1 APPLICATOR TOPICALLY 3X PER WEEK, 155, cm, 01/23/22 14:00:00 EST, Height, 106.5, kg, 09/14/21 9:38:00 EDT,... Start Date: 05/16/22 Status: Ordered loratadine 10 mg oral tablet 1, tablet, By Mouth, Daily, # 30 tablet, Refills 5, Tot. Refills 5, Maintenance, 07/04/22 8:39:00 EDT, [id number], 155, cm, 01/23/22 [...] Refills, Soft Stop, 07/27/20 11:50:00 EDT, Cream, [facility], 1 applicationTopically Once,Instr:to skin head to feet, remove b... Start Date: 07/27/20 Status: Ordered predniSONE 10 mg oral tablet See Instructions, May fill 06/16/22 and weekly on Fridays for 3 weeks, # 14 tablet, 2 Refills, 07/04/22 13:28:00 EDT, [facility], 155, cm, 01/23/22 14:00:00 EST, Height, 106.5, kg, 09/14/21 9:38:00 EDT, Dry Weight Start Date: 07/04/22 Status: Ordered predniSONE 10 mg oral tablet See Instructions, May fill 05/26/22 and weekly on Fridays for 3 weeks, # 14 tablet, 2 Refills, 05/24/22 10:44:00 EDT, [facility], 155, cm, 01/23/22 14:00:00 EST, Height, 106.5, kg,09/14/21 9:38:00 EDT, Dry Weight Start Date: 05/24/22 Status: Ordered predniSONE 5 mg oral tablet See Instructions, latest dosage 15 mg daily, now to take 5mg tablet, 3 daily. May fill Fridays starting 07/21/22, # 21 tablet, 2 Refills, Maintenance, 07/19/22 12:40:00 EDT, [facility], Partial fill upon patient request if the presc... Start Date: 07/19/22 Status: Ordered selenium sulfide 2.5% topical lotion See Instructions, APPLY TOPICALLY TO AFFECTED AREA EVERY DAY FOR 7 DAYS, # 120 mL, 3 Refills, Soft Stop, 10/26/21 15:43:00 EDT, [facility], 7, APPLY TOPICALLY TO AFFECTED AREA EVERY DAY FOR 7 DAYS, 155, cm, 09/28/21 12:06:00 EDT, H... Start Date: 10/26/21 Status: Ordered simvastatin 20 mg oral tablet 20 mg, 1, tablet, By Mouth, Daily at bedtime, for cholesterol, # 30 tablet, Refills 5, Tot. Refills5, Maintenance, 07/24/22 13:12:00 EDT, Route to Pharmacy Electronically, [facility]/pharmacy #[id number], Partial fill upon patient request if the prescription is f... Start Date: 07/24/22 Status: Ordered tiZANidine 2 mg oral tablet 1, tablet, By Mouth, 3 times a day, # 60 tablet, Refills 0, Route to Pharmacy Electronically, [id number], 155, cm, 05/03/21 14:39:00 EST, Height, 95.9, kg, 12/05/20 10:08:00 EDT, Dry Weight Start Date: 05/09/21 Status: Ordered traMADol 50 mg oral tablet 1 tablet = 50 mg, By Mouth, Every 8 hours, PRN Pain , Severe, for 7 days, May fill 07/21/22 and weekly on Fridays for 3 weeks, # 21 tablet, 2 Refills, Acute 08/09/22 12:38:00 EDT, 07/19/22 12:38:00 EDT, Tablet, [facility], Partial... Start Date: 07/19/22 Stop Date: 08/09/22 [...] Leon MD Position: [facility] Physician - Primary Care Member Role: PCP Address: Address: [address] [place] [id number]- Care Team Related Persons Name: JD ALVAREZ Address: home [address] [place] [id number]
--- OUTSIDE RECORDS SUMMARY | 2022-11-03 10:43 | XMS_ITS | Continuity of Care Document ---
Author Name Unknown Organization [facility] Address Unknown Care Team Providers Care River Boat Captain Name Role Phone Haley NEWMAN, Ilya Primary Care Physician [place] [facility] [place]12[place] 06/11/21 [facility] Allergies, Adverse Reactions, Alerts [...] A DAY, # 60 Gm, 1 Refills, [id number], 30, APPLY TO AFFECTED AREA TWICE A DAY, 155, cm, 05/30/21 15:34:00 EDT, Height, 95.9, kg, 12/05/20 10:08:00 EDT, Dry Weight Start Date: 05/31/21 Status: Ordered Cavilon Emollient topical cream 1 application, Topically, 2 times a day, PRN for dry skin, # 454 Gm, 1 Refills, Maintenance, 09/30/19 16:26:00 EDT, Cream, [facility], 1 application Topically 2 times a day,PRN:for dry skin, 158, cm, 08/27/19 13:02:00 EDT, Height, 76, kg... Start Date: 09/30/19 Status: Ordered Claritin 10 mg oral tablet 10 mg, 1, tablet, By Mouth, Daily, # 15 tablet, Refills 3, Tot. Refills 3, Maintenance, 05/03/21 15:42:00 EST, Route to Pharmacy Electronically, [facility]/pharmacy #[id number], 155, cm, 05/03/21 14:39:00 EST, Height, 95.9, kg, 12/05/20 10:08:00 EDT, Dry Weight Start Date: 05/03/21 Status: Ordered clonazePAM 0.5 mg oral tablet 1 tablet = 0.5 mg, By Mouth, Daily, # 14 tablet, 0 Refills, Maintenance, 05/30/21 12:57:00 EDT, Tablet, [facility]/pharmacy #[id number], FEED CRUSHER OPERATOR reviewed, covering for Dr. De Leon, 155, cm, 05/03/21 14:39:00 EST, Height, 95.9, kg, 12/05/20 10:08:00 EDT, Dry Weight Start Date: 05/30/21 Stop Date: 06/13/21 Status: Ordered Dovonex 0.005% topical cream 1 applicator, Topically, 2 times a day, # 60 Gm, 5 Refills, Maintenance, 07/07/19 17:30:00 EDT, [facility], 1 applicator Topically 2 times a day,x30 days, 158, cm, 12/24/18 10:25:00 EDT, Height, 76, kg, 04/12/19 15:31:00 EST, Dry Weight Start Date: 07/07/19 Stop Date: 01/03/20 Status: Ordered fluticasone 50 mcg/inh nasal spray 1 sprays, Nares, Both, 2 times a day, in each nostril. for allergies, # 16 Gm, 0 Refills, Maintenance, 04/27/20 14:35:00 EST, [place], [facility], Partial fill upon patient request if theprescription is for a schedule II opioid drug., 1... Start Date: 04/27/20 Stop Date: 05/27/20 Status: Ordered furosemide 20 mg oral tablet 1, tablet, By Mouth, Daily, # 30 tablet, Refills 3, Tot. Refills 3, Maintenance, 04/18/21 12:11:00 EST, Route to Pharmacy Electronically, [facility]/pharmacy #[id number], 155, cm, 04/18/21 10:12:00 EST, Height, 95.9, kg, 12/05/20 10:08:00 EDT, Dry Weight Start Date: 04/18/21 Status: Ordered halobetasol 0.05% topical ointment See Instructions, APPLY A THIN FILM TO THE AFFECTED SKIN AND RUB IN GENTLY AND COMPLETELY TWICE A DAY, # 50 Gm, 1 Refills, [id number], 30, APPLY A THIN FILM TO THE AFFECTED SKIN AND RUB IN GENTLY AND COMPLETELY TWICE A DAY, 155, cm, 12/05/20 10:0... Start Date: 03/15/21 Status: Ordered ketoconazole 2% topical shampoo See Instructions, APPLY 1 APPLICATOR TOPICALLY 3X PER WEEK, # 120 mL, 3 Refills, [id number], 30, APPLY 1 APPLICATOR TOPICALLY 3X PER WEEK, 155, cm, 03/17/21 7:53:00 EST, Height, 95.9, kg, 12/05/20 10:08:00 EDT, Dry Weight Start Date: 03/21/21 Status: Ordered Methadone By Mouth, 0 Refills, Maintenance Start Date: 12/25/11 Status: Ordered mupirocin 2% topical cream 1 application, Topically, 3 times a day, # 30 Gm, 2 Refills, Maintenance, 03/08/21 10:26:00 EST, Cream, [facility]/pharmacy #[id number], Partial fill upon patient request if the prescription is for a schedule II opioid drug., 1 application Topically 3 times a day,... Start Date: 03/08/21 Status: Ordered permethrin 5% topical cream 1 application, Topically, Once, to skin head to feet, remove by washing after 8 to 14 hours, # 60 Gm, 0 Refills, Soft Stop, 07/27/20 11:50:00 EDT, Cream, [facility], 1 applicationTopically Once,Instr:to skin head to feet, remove b... Start Date: 07/27/20 Status: Ordered predniSONE 10 mg oral tablet 1 tablet, By Mouth, Daily, please fill early, may fill 06/03, # 14 tablet, 0 Refills, 05/31/21 8:50:00 EDT, [facility]/pharmacy #[id number], 155, cm, 05/30/21 15:34:00 EDT, Height, 95.9, kg, 12/05/20 10:08:00 EDT,Dry Weight Start Date: 05/31/21 Status: Ordered selenium sulfide 2.5% topical lotion See Instructions, APPLY TOPICALLY TO AFFECTED AREA EVERY DAY FOR 7 DAYS, # 120 mL, 3 Refills, Soft Stop, 04/26/21 18:07:00 EST, [facility]/pharmacy #[id number], 7, APPLY TOPICALLY TO AFFECTED AREA EVERY DAY FOR 7DAYS, 155, cm, 04/18/21 10:12:00 EST, Height, 95.9,... Start Date: 04/26/21 Status: Ordered tiZANidine 2 mg oral tablet 1, tablet, By Mouth, 3 times a day, # 60 tablet, Refills 0, Route to Pharmacy Electronically, [id number], 155, cm, 05/03/21 14:39:00 EST, Height, 95.9, kg, 12/05/20 10:08:00 EDT, Dry Weight Start Date: 05/09/21 Status: Ordered Problem List Condition Effective Dates Status Health Status Inform ant Anxiety(Confirmed) Active Opioid type dependence, continuous(Confirmed) 1 Active Osteoarthritis of left knee(Confirmed) Active Psoriasis(Confirmed) Active Severe obesity(Confirmed) Active 1Client had been seen by Jazz Francois at [facility]. Client has no-showed to last appt and today.She will be targetted for closing if she does not responde to correspondence that will be sent on 02/14/13 Social History Social History Type Response Smoking Status 10 or more cigarette s (1/2 pack or more)/day in last 30 days entered on: 04/18/21 Sex
--- OUTSIDE RECORDS SUMMARY | 2022-11-03 10:43 | XMS_ITS | Continuity of Care Document ---
Author Name Unknown Organization [facility] ter Address [address] [place] [id number]- Care Team Providers Care Vp Strategic Partnerships Name Role Phone Ilya De Leon MD Primary Care Physician Encounter [facility] [place] Date(s): 04/06/19 - 04/06/[address] [address]- [place] Encounter Diagnosis Scalp itch(Final) - 04/06/19 Discharge Disposition: A-D/C Home Attending Physician: Atul Montaño MD Admitting Physician: Atul Montaño MD Referring Physician: Not on Staff, Referring [...] HOSPITAL 2Admin Note: FLUVIRIN MULTIDOSE ADMINISTERED AT [facility] Cavilon Emollient topical cream 1 application, Topically, 2 times a day, PRN for dry skin, # 454 Gm, 0 Refills, Maintenance, 10/27/18 16:13:42 EDT, Cream Start Date: 10/27/18 Status: Ordered Claritin 10 mg oral tablet 10 mg, 1, tablet, By Mouth, Daily, # 15 tablet, Refills 3, Tot. Refills 3, Maintenance, 11/06/18 8:33:38 EDT, Route to Pharmacy Electronically, [id number], [facility] Start Date: 11/06/18 Status: Ordered [...] 0 Refills, Soft Stop, 03/24/19 13:42:00 EST, [facility], 158, cm, 12/24/18 [...] 0 Refills, Maintenance, 04/06/19 20:19:00 EST, Tablet, [facility], 158, cm, 12/24/18 [...] to oldest [Reference Range]: 1 2 Weight 75.5 kg (04/06/19 5:01 PM) 75.5 kg (04/06/19 4:31 PM) Oxygen Saturation [94-100 %] 99 % (04/06/19 4:31 PM) 99 % (04/06/19 4:20 PM) Pulse Rate [55-90 bpm] 78 bpm (04/06/19 4:31 PM) 84 bpm (04/06/19 4:20 PM) Blood Pressure [90-138/55-84 mm Hg] 106/ 62mm Hg (04/06/19 4:31 PM) Respiratory Rate [16-30 br/min] 19 br/mi n (04/06/19 4:31 PM) Temperature [96.8-100.4 DegF] 98.2 DegF (04/06/19 4:31 PM) Mode of Delivery (Oxygen) Room air (04/06/19 4:31 PM) Room air (04/06/19 4:20 PM) Blood pressure sites Arm, right (04/06/19 4:31 PM) Temperature Route Oral (04/06/19 4:31 PM) Dry Weight 75.5 kg (04/06/19 5:01 PM) 75.5 kg (04/06/19 4:31 PM) Weight Obtained Via Standing scale (04/06/19 4:31 PM) Dry Weight Obtained Via Standing scale (04/06/19 4:31 PM) Social History Social History Type Response Smoking Status 10 or more cigarette s (1/2 pack or more)/day in last 30 days entered on: 01/24/18 Sex
--- OUTSIDE RECORDS SUMMARY | 2022-11-03 10:43 | XMS_ITS | Continuity of Care Document ---
Author Name Unknown Organization [facility] Address [address] [place] [address]- Care Team Providers Care Coat Checker Name Role Phone Ilya De Leon MD Primary Care Physician Encounter [facility] [place] Date(s): 09/22/19 - 10/22/19 [facility]/[address] [address]- [facility] Allergies, Adverse Reactions, Alerts Substance Reaction [...] 01/30/11 Gi lizbeth 1Admin Note: ADMIN BY [facility] 2Admin Note: FLUVIRIN MULTIDOSE ADMINISTERED AT [facility] Medications Cavilon Emollient topical cream 1 application, Topically, 2 times a day, PRN for dry skin, # 454 Gm, 1 Refills, Maintenance, 09/30/19 16:26:00 EDT, Cream, [facility], 1 application Topically 2 times a day,PRN:for dry skin, 158, cm, 08/27/19 13:02:00 EDT, Height, 76, kg... Start Date: 09/30/19 Status: Ordered Claritin 10 mg oral tablet 10 mg, 1, tablet, By Mouth, Daily, # 15 tablet, Refills 3, Tot. Refills 3, Maintenance, 11/06/18 8:33:38 EDT, Route to Pharmacy Electronically, [id number], [facility] Start Date: 11/06/18 Status: Ordered Dovonex 0.005% topical cream 1 applicator, Topically, 2 times a day, # 60 Gm, 5 Refills, Maintenance, 07/07/19 17:30:00 EDT, [facility], 1 applicator Topically 2 [...] 3 Refills, Maintenance, 06/04/19 14:52:00 EDT, Cream, [facility], 1 application Topically [...] 0 Refills, Soft Stop, 10/18/19 13:38:00 EDT, [facility] 3, 158, cm, ... Start Date: 10/18/19 Status: Ordered Medrol Dosepak 4 mg oral tablet per label intructions, By Mouth, Once, as on label, # 1 each, 0 Refills, Soft Stop, 08/11/19 20:08:00 EDT, [facility] 3, 158, cm, 12/24/18 10:25:00 EDT, [...] Refills, Soft Stop, 08/27/19 14:17:00 EDT, [facility], 1 applicator Topically 3x per week, [...] 3 Refills, Soft Stop, 09/23/19 15:13:00 EDT, [facility], 7, APPLY TOPICALLY TO [...] 0 Refills, Maintenance, 04/06/19 20:19:00 EST, Tablet, [facility], 158, cm, 12/24/18 10:25:00 EDT, Height, 75.5, kg, 04/06/19 17:01:00 EST, Dry Weight Start Date: 04/06/19 Stop Date: 04/13/19 Status: Ordered Problem List Condition Effective Dates Status Health Status Inform ant Opioid type dependence, continuous(Confirmed) 1 Active 1Client had been seen by Jazz Francois at [facility]. Client has no-showed to last appt and today.She will be targetted for closing if she does not responde to correspondence that will be sent on 02/14/13 Social History Social History Type Response Smoking Status 10 or more cigarette s (1/2 pack or more)/day in last 30 days entered on: 01/24/18 Sex
--- OUTSIDE RECORDS SUMMARY | 2022-11-03 10:43 | XMS_ITS | Continuity of Care Document ---
Author Name Unknown Organization [facility] Address [address] [place] [address]- Care Team Providers Care Desizing Machine Offbearer Name Role Phone Ilya De Leon MD Primary Care Physician [place] [facility] [place](s): 06/25/20 - 07/25/20 [facility]/[address] [address]- Allergies, Adverse Reactions, Alerts Substance Reaction Severity [...] 1 Refills, Maintenance, 09/30/19 16:26:00 EDT, Cream, [facility], 1 application Topically 2 times a day,PRN:for dry skin, 158, cm, 08/27/19 13:02:00 EDT, Height, 76, kg... Start Date: 09/30/19 Status: Ordered cetirizine 10 mg oral tablet 1 tablet = 10 mg, By Mouth, Daily, for allergies. Do NOT take with claritin, # 30 tablet, 0 Refills, Maintenance, 07/23/20 11:37:00 EDT, Tablet, [facility], Partial fill upon patient request if the prescription is for a schedule II... Start Date: 07/23/20 Stop Date: 08/22/20 Status: Ordered Claritin 10 mg oral tablet 10 mg, 1, tablet, By Mouth, Daily, # 15 tablet, Refills 3, Tot. Refills 3, Maintenance, 11/06/18 8:33:38 EDT, Route to Pharmacy Electronically, [id number], [facility] Start Date: 11/06/18 Status: Ordered diphenhydrAMINE [...] 0 Refills, Maintenance, 04/27/20 14:35:00 EST, [place], [facility] 3, Partial fill upon patient [...] 0 Refills, Soft Stop, 07/07/20 13:01:00 EDT, [facility] 3, 158, cm, 06/23/20 13:26:00 EDT... Start Date: 07/07/20 Status: Ordered Methadone By Mouth, 0 Refills, Maintenance Start Date: 12/25/11 Status: Ordered mupirocin 2% topical ointment 1 application, Topically, 3 times a day, for 7 days, For lesion on right upper arm, # 22 Gm, 0 Refills, Acute 07/30/20 11:39:00 EDT, 07/23/20 11:39:00 EDT, [facility], Partial fill upon patient request if the prescription is for a... Start Date: 07/23/20 Stop Date: 07/30/20 Status: Ordered Nizoral 2% topical shampoo See Instructions, 1 applicator Topically 3x per week, # 120 mL, 10 Refills, Soft Stop, 05/13/20 11:05:00 EST, [facility], 1 applicator Topically 3x per week, 158, cm, 05/10/20 11:36:00 EST, Height, 76, kg, 04/12/19 15:31:00 EST, Dry Weight Start Date: 05/13/20 Status: Ordered oxyCODONE 5 mg oral tablet 5 mg, 1, tablet, By Mouth, Every 6 hours, PRN, # 12 tablet, Refills 0, Tot. Refills 0, Acute 08/02/20 12:00:00 EDT, Pain , Severe, 07/23/20 11:48:00 EDT, Route to Pharmacy Electronically, [facility], Partial fill upon patient reque... Start [...] Acute 07/28/20 11:51:00 EDT,07/23/20 11:51:00 EDT, Tablet, [facility], Partial fill upon patient request ifthe [...] 1 Refills, Maintenance, 03/10/20 18:21:00 EST, Cream, [facility] 3, Partial fill upon patient request if the prescription is fora schedule II opioid drug., 1 application Topically... Start Date: 03/10/20 Status: Ordered tetracycline 500 mg oral capsule 1 capsule = 500 mg, By Mouth, Every 6 hours, for 7 days, # 28 capsule, 0 Refills, Acute 07/30/20 11:52:00 EDT, 07/23/20 11:52:00 EDT, Capsule, [facility], Partial fill upon patient [...] 0 Refills, Maintenance, 07/23/20 11:37:00 EDT, Gel, [facility], 1 application Topically 4 times a [...]
--- OUTSIDE RECORDS SUMMARY | 2022-11-03 10:43 | XMS_ITS | Continuity of Care Document ---
Author Name Unknown Organization [facility] Address Unknown Care Team Providers Care Inspector Hairspring Truing Name Role Phone Haley NEWMAN, Ilya Primary Care Physician Encounter [facility] [place] Date(s): 03/18/21 - 05/11/21 [facility] Attending Physician: Ilya De Leon [...] 05/03/21 15:42:00 EST, [id number], cm, 05/03/21 14:39:00 EST, Height, 95.9, kg, 12/05/20 10:08:00 EDT, Dry Weight Start Date: 05/03/21 Status: Ordered clonazePAM 0.5 mg oral tablet 1 tablet = 0.5 mg, By Mouth, Daily, may fill 05/02, # 14 tablet, 0 Refills, Maintenance, 05/01/21 3:37:00 EST, [id number] reviewed, covering for Dr. De Leon, 155, [...] Gm, 0 Refills, Maintenance, 04/27/20 14:35:00 EST, [place], [facility], Partial fill upon patient request if theprescription is for a schedule II opioid drug., 1... Start Date: 04/27/20 Stop Date: 05/27/20 Status: Ordered furosemide 20 mg oral tablet 1, tablet, By Mouth, Daily, # 30 tablet, Refills 3, Tot. Refills 3, Maintenance, 04/18/21 12:11:00 EST, Route to Pharmacy Electronically, [facility]/pharmacy #[id number], 155, cm, 04/18/21 10:12:00 EST, Height, 95.9, kg, 12/05/20 10:08:00 EDT, Dry Weight Start Date: 04/18/21 Status: Ordered halobetasol 0.05% topical ointment See Instructions, APPLY A THIN FILM TO THE AFFECTED SKIN AND RUB IN GENTLY AND COMPLETELY TWICE A DAY, # 50 Gm, 1 Refills, [id number], 30, APPLY A THIN FILM TO THE AFFECTED SKIN AND RUB IN GENTLY AND COMPLETELY TWICE A DAY, 155, cm, 12/05/20 10:0... Start Date: 03/15/21 Status: Ordered ketoconazole 2% topical shampoo See Instructions, APPLY 1 APPLICATOR TOPICALLY 3X PER WEEK, # 120 mL, 3 Refills, [id number], 30, APPLY 1 APPLICATOR TOPICALLY 3X PER [...] Refills, Soft Stop, 07/27/20 11:50:00 EDT, Cream, [facility], 1 applicationTopically Once,Instr:to skin head to feet, remove b... Start Date: 07/27/20 Status: Ordered predniSONE 10 mg oral tablet 1 tablet = 10 mg, By Mouth, Daily, may fill 05/02/21, # 14 tablet, 0 Refills, Maintenance, 05/01/21 3:37:00 EST, [facility]/pharmacy #[id number], Partial fill upon patient request if the prescription is for a schedule II opioid drug., 155, cm, 04/18/21 10:12:00 EST... Start Date: 05/01/21 Stop Date: 05/15/21 Status: Ordered selenium sulfide 2.5% topical lotion See Instructions, APPLY TOPICALLY TO AFFECTED AREA EVERY DAY FOR 7 DAYS, # 120 mL, 3 Refills, Soft Stop, 04/26/21 18:07:00 EST, [facility]/pharmacy #[id number], 7, APPLY TOPICALLY TO AFFECTED AREA EVERY DAY FOR 7DAYS, 155, cm, 04/18/21 10:12:00 EST, Height, 95.9,... Start Date: 04/26/21 Status: Ordered tiZANidine 2 mg oral tablet 1, tablet, By Mouth, 3 times a day, # 60 tablet, Refills 0, Route to Pharmacy Electronically, [facility] [id number], 155, cm, 05/03/21 14:39:00 EST, Height, 95.9, [...]
--- OUTSIDE RECORDS SUMMARY | 2022-11-03 10:43 | XMS_ITS | Continuity of Care Document ---
Author Name Unknown Organization [facility] Address [address] [place] [address]- Care Team Providers Care Clinical Admissions Manager Name Role Phone Ilya De Leon MD Primary Care Physician Encounter [facility] [place] Date(s): 09/26/19 - 10/26/19 [facility] [address] [place] [address]- [facility] Attending Physician: Not on Staff, Attending MD [...] 1 Refills, Maintenance, 09/30/19 16:26:00 EDT, Cream, [facility], 1 application Topically 2 times a day,PRN:for dry skin, 158, cm, 08/27/19 13:02:00 EDT, Height, 76, kg... Start Date: 09/30/19 Status: Ordered Claritin 10 mg oral tablet 10 mg, 1, tablet, By Mouth, Daily, # 15 tablet, Refills 3, Tot. Refills 3, Maintenance, 11/06/18 8:33:38 EDT, Route to Pharmacy Electronically, [id number], [facility] Start Date: 11/06/18 Status: Ordered Dovonex 0.005% topical cream 1 applicator, Topically, 2 times a day, # 60 Gm, 5 Refills, Maintenance, 07/07/19 17:30:00 EDT, [facility] 3, 1 applicator Topically 2 [...] 3 Refills, Maintenance, 06/04/19 14:52:00 EDT, Cream, [facility] 3, 1 application Topically 2 [...] 0 Refills, Soft Stop, 10/18/19 13:38:00 EDT, [facility] 3, 158, cm, ... Start Date: 10/18/19 Status: Ordered Medrol Dosepak 4 mg oral tablet per label intructions, By Mouth, Once, as on label, # 1 each, 0 Refills, Soft Stop, 08/11/19 20:08:00 EDT, [facility] 3, 158, cm, 12/24/18 10:25:00 EDT, [...] 0 Refills, Soft Stop, 08/27/19 14:17:00 EDT, [facility], 1 applicator Topically 3x per week, 158, [...] 3 Refills, Soft Stop, 09/23/19 15:13:00 EDT, [facility], 7, APPLY TOPICALLY TO [...] 0 Refills, Maintenance, 04/06/19 20:19:00 EST, Tablet, [facility], 158, cm, 12/24/18 [...]
--- OUTSIDE RECORDS SUMMARY | 2022-11-03 10:43 | XMS_ITS | Continuity of Care Document ---
Author Name Unknown Organization [facility] Address [address] [place] [id number]- Care Team Providers Care Garland Maker Name Role Phone Haley NEWMAN, Ilya Primary Care Physician Encounter [facility] Date(s): 05/31/20 - 06/30/20 [facility]/[address] [address]- Allergies, Adverse Reactions, Alerts Substance Reaction Severity [...] Maintenance, 09/30/19 16:26:00 EDT, Cream, [facility], 1 application Topically 2 times a day,PRN:for dry skin, 158, cm, 08/27/19 13:02:00 EDT, Height, 76, kg... Start Date: 09/30/19 Status: Ordered cetirizine 10 mg oral tablet 1 tablet = 10 mg, By Mouth, Daily, for allergies. Do NOT take with claritin, # 30 tablet, 0 Refills, Maintenance, 04/27/20 14:41:00 EST, Tablet, [facility], Partial fill upon patient request if the prescription is for a schedule II opioi... Start Date: 04/27/20 Stop Date: 05/27/20 Status: Ordered Claritin 10 mg oral tablet 10 mg, 1, tablet, By Mouth, Daily, # 15 tablet, Refills 3, Tot. Refills 3, Maintenance, 11/06/18 8:33:38 EDT, Route to Pharmacy Electronically, [id number], [facility] Start Date: 11/06/18 Status: Ordered Dovonex 0.005% topical cream 1 applicator, Topically, 2 times a day, # 60 Gm, 5 Refills, Maintenance, 07/07/19 17:30:00 EDT, [facility], 1 applicator Topically 2 times a [...] 0 Refills, Maintenance, 04/27/20 14:35:00 EST, [place], [facility], Partial fill upon patient request if theprescription is for a schedule II opioid drug., 1... Start Date: 04/27/20 Stop Date: 05/27/20 Status: Ordered hydrocortisone 1% topical cream 1 application, Topically, 2 times a day, Apply to rash areas, # 60 Gm, 3 Refills, Maintenance, 06/04/19 14:52:00 EDT, Cream, [facility], 1 application Topically 2 times [...] 0 Refills, Soft Stop, 05/31/20 15:38:00 EDT, [facility]/pharmacy #[id number], 158, cm, 05/27/20... Start Date: 05/31/20 Status: Ordered Medrol Dosepak 4 mg oral tablet per label intructions, By Mouth, Once, as on label, # 1 each, 0 Refills, Soft Stop, 08/11/19 20:08:00 EDT, [facility], 158, cm, 12/24/18 10:25:00 EDT, [...] 10 Refills, Soft Stop, 05/13/20 11:05:00 EST, [facility], 1 applicator Topically 3x per week, 158, cm, 05/10/20 11:36:00 EST, Height, 76, kg, 04/12/19 15:31:00 EST, Dry Weight Start Date: 05/13/20 Status: Ordered oxyCODONE 5 mg oral tablet 5 mg, 1, tablet, By Mouth, Every 6 hours, PRN, # 4 tablet, Refills 0, Tot. Refills 0, Maintenance, Pain , Severe, 06/26/20 10:50:00 EDT, Route to Pharmacy Electronically, [facility] 3, Partial fill upon [...] 0 Refills, Maintenance, 06/26/20 10:47:00 EDT, Tablet, [facility], Partial fill upon patient request if the... Start Date: 06/26/20 Status: Ordered predniSONE 5 mg oral tablet See Instructions, 2 tablets daily for 5 days then 1 daily for 5 days then stop, # 15 tablet, 0 Refills, Maintenance, 06/23/20 13:21:00 EDT, [facility]/pharmacy #[id number], Partial fill upon patient request if the prescription is for a schedule II opioid drug., 15... Start Date: 06/23/20 Status: Ordered selenium sulfide 2.5% topical lotion See Instructions, APPLY TOPICALLY TO AFFECTED AREA EVERY DAY FOR 7 DAYS, # 120 mL, 3 Refills, Maintenance, [facility], 7, APPLY TOPICALLY TO AFFECTED AREA EVERY DAY FOR 7 DAYS, 158, cm, 05/10/20 11:36:00 EST, Height, 76, kg, 04/12/19 15:31:00 E... Start Date: 05/21/20 Status: Ordered selenium sulfide 2.5% topical lotion See Instructions, APPLY TOPICALLY TO AFFECTED AREA EVERY DAY FOR 7 DAYS, # 120 mL, 3 Refills, Maintenance, [facility], 7, APPLY TOPICALLY TO AFFECTED AREA [...] Maintenance, 03/10/20 18:21:00 EST, [facility] [...] 0 Refills, Maintenance, 04/06/19 20:19:00 EST, Tablet, [facility], 158, cm, 12/24/18 10:25:00 EDT, [...]
--- OUTSIDE RECORDS SUMMARY | 2022-11-03 10:43 | XMS_ITS | Continuity of Care Document ---
Author Name Unknown Organization [facility] Address [address] [place] [id number]- Care Team Providers Care Account Installer Name Role Phone Ilya De Leon MD Primary Care Physician Encounter [facility] [place] Date(s): 06/25/20 - 09/15/20 [facility]/[address] [address]- Attending Physician: Ilya De Leon MD Admitting [...] Chest pain Active morphine HAND SWELLING Active Reglan Agitated Active 1By phone, reported [...] 0 Refills, Maintenance, 07/23/20 11:37:00 EDT, Tablet, [facility], Partial fill upon patient request if the prescription is for a schedule II... Start Date: 07/23/20 Stop Date: 08/22/20 Status: Ordered Claritin 10 mg oral tablet 10 mg, 1, tablet, By Mouth, Daily, # 15 tablet, Refills 3, Tot. Refills 3, Maintenance, 11/06/18 8:33:38 EDT, Route to Pharmacy Electronically, [id number], [facility] Start Date: 11/06/18 Status: Ordered clonazePAM 0.5 mg oral tablet 1 tablet = 0.5 mg, By Mouth, Daily, # 28 tablet, 0 Refills, Maintenance, 08/26/20 14:39:00 EDT, Tablet, [facility], Partial fill upon patient request if the prescription is for a schedule II opioid drug., 158, cm, 08/26/20 14:27:00... Start Date: 08/26/20 Status: Ordered diphenhydrAMINE 25 mg oral tablet 1 tablet = 25 mg, By Mouth, 3 times a day, PRN as needed for itching, Will cause drowsiness, # 30 tablet, 0 Refills, Maintenance, 07/16/20 15:11:00 EDT, Tablet, [facility], Partial fill upon patient request if the prescription is f... Start Date: 07/16/20 Status: Ordered Dovonex 0.005% topical cream 1 applicator, Topically, 2 times a day, # 60 Gm, 5 Refills, Maintenance, 07/07/19 17:30:00 EDT, [facility] 3, 1 applicator Topically 2 times a [...] Gm, 0 Refills, Maintenance, 04/27/20 14:35:00 EST, [place], [facility], Partial fill upon patient request if theprescription is for a schedule II opioid drug., 1... Start Date: 04/27/20 Stop Date: 05/27/20 Status: Ordered furosemide 20 mg oral tablet 20 mg, 1, tablet, By Mouth, Daily, # 30 tablet, Refills 1, Tot. Refills 1, Maintenance, 08/27/20 16:12:00 EDT, Route to Pharmacy Electronically, [facility]/pharmacy #[id number], Partial fill upon patient request if the prescription is for a schedule II opioid drug... Start Date: 08/27/20 Status: Ordered halobetasol 0.05% topical cream 1 application, Topically, 2 times a day, # 50 Gm, 3 Refills, Maintenance, 08/02/20 12:54:00 EDT, Cream, [facility], Partial fill upon patient request if the prescription is for a schedule II opioid drug., 1 application Topically 2... Start Date: 08/02/20 Status: Ordered hydrocortisone 1% topical cream 1 application, Topically, 2 times a day, Apply to rash areas, # 60 Gm, 3 Refills, Maintenance, 06/04/19 14:52:00 EDT, Cream, [facility] 3, 1 application Topically 2 times a [...] 2 Refills, Maintenance, 09/14/20 17:22:00 EDT, Cream, [facility]/pharmacy #[id number], Partial fill upon patient request if the prescription is for a schedule II opioid drug., 1 application Topically 3 times a day,... Start Date: 09/14/20 Status: Ordered Nizoral 2% topical shampoo See Instructions, 1 applicator Topically 3x per week, # 120 mL, 3 Refills, Soft Stop, 08/12/20 10:30:00 EDT, [facility]/pharmacy #[id number], 1 applicator Topically 3x per week, 158, cm, 07/23/20 11:13:00 EDT, Height, 82, kg, 07/21/20 20:18:00 EDT, Dry Weight Start Date: 08/12/20 Status: Ordered permethrin 5% topical cream 1 application, Topically, Once, to skin head to feet, remove by washing after 8 to 14 hours, # 60 Gm, 0 Refills, Soft Stop, 07/27/20 11:50:00 EDT, Cream, [facility], 1 applicationTopically Once,Instr:to skin head to feet, remove b... Start Date: 07/27/20 Status: Ordered predniSONE 5 mg oral tablet 1 tablet = 5 mg, By Mouth, 3 times a day, # 30 tablet, 0 Refills, Maintenance, 09/14/20 17:20:00 EDT, Tablet, [facility]/pharmacy #[id number], Partial fill upon patient request if the prescription is for a schedule II opioid drug., 158, cm, 09/08/20 14:36:00 EDT,... Start Date: 09/14/20 Stop Date: 09/24/20 Status: Ordered selenium sulfide 2.5% topical lotion See Instructions, APPLY TOPICALLY TO AFFECTED AREA EVERY DAY FOR 7 DAYS, # 120 mL, 3 Refills, Soft Stop, 07/23/20 11:40:00 EDT, [facility], 7, APPLY TOPICALLY TO AFFECTED AREA EVERY DAY FOR 7 DAYS, 158, cm, 07/23/20 11:13:00 EDT, H... Start Date: 07/23/20 Status: Ordered Shingrix intramuscular injection = 0.5 mL, Intramuscular, Once, repeat dose in 2 to 6 months, # 2 each, 0 Refills, Soft Stop, 05/27/20 11:03:00 EDT, Powder, [facility], Partial fill upon patient request if [...] 03/10/20 18:21:00 EST, Cream, [facility] 3, Partial fill upon patient request if [...] 0 Refills, Maintenance, 07/23/20 11:37:00 EDT, Gel, [facility], 1 application Topically 4 times a [...]
--- OUTSIDE RECORDS SUMMARY | 2022-11-03 10:43 | XMS_ITS | Continuity of Care Document ---
Author Name Unknown Organization [facility] Address [address] [place] [address]- Care Team Providers Care Manufacturing Project Engineer Name Role Phone Ilya De Leon MD Primary Care Physician Encounter [facility] [place] Date(s): 01/17/22 - 02/16/22 [facility]/[address] [address]- [place] Allergies, Adverse Reactions, Alerts Substance Reaction [...] Refills, Maintenance, 06/29/21 15:10:00 EDT, ER Tablet, [facility]/pharmacy #[id number], Partial fill upon patient request if the prescription is for a schedule II opioid drug., 155, cm, 05/30/21 15:34:... Start Date: 06/29/21 Status: Ordered capsaicin 0.025% topical cream See Instructions, APPLY TO AFFECTED AREA TWICE A DAY, # 60 Gm, 1 Refills, [id number], 30, APPLY TO AFFECTED AREA TWICE A DAY, 155, cm, 05/30/21 15:34:00 EDT, Height, 95.9, kg, 12/05/20 10:08:00 EDT, Dry Weight Start Date: 05/31/21 Status: Ordered Cavilon Emollient topical cream 1 application, Topically, 2 times a day, PRN for dry skin, # 454 Gm, 1 Refills, Maintenance, 09/30/19 16:26:00 EDT, Cream, [facility], 1 application Topically 2 times a day,PRN:for dry skin, 158, cm, 08/27/19 13:02:00 EDT, Height, 76, kg... Start Date: 09/30/19 Status: Ordered clonazePAM 0.5 mg oral tablet 1 tablet = 0.5 mg, By Mouth, Daily at bedtime, May fill 02/10/22 and weekly on Fridays for3 weeks, #7 tablet, 2 Refills, Maintenance, 02/07/22 15:55:00 EST, Tablet, [facility], [employer] reviewed, covering for Dr. De Leon, 155, cm, 01/23... Start Date: 02/07/22 Stop Date: 02/28/22 Status: Ordered coal tar topical 1% lotion See Instructions, applyTopically Daily at bedtime, # 120 mL, 3 Refills, Maintenance, 10/26/21 15:45:00 EDT, [facility], Partial fill upon patient request if the prescription is for a schedule II opioid drug., applyTopically Daily a... Start Date: 10/26/21 Status: Ordered Dovonex 0.005% topical cream 1 applicator, Topically, 2 times a day, # 60 Gm, 5 Refills, Maintenance, 07/07/19 17:30:00 EDT, [facility], 1 applicator Topically 2 times a day,x30 days, 158, cm, 12/24/18 10:25:00 EDT, Height, 76, kg, 04/12/19 15:31:00 EST, Dry Weight Start Date: 07/07/19 Stop Date: 01/03/20 Status: Ordered Eucerin Unscented topical lotion See Instructions, apply as frequently as needed, # 1 each, 0 Refills, Maintenance, 09/28/21 12:23:00 EDT, [facility], Partial fill upon patient request if the prescription is for a schedule II opioid drug., apply as frequently as n... Start Date: 09/28/21 Status: Ordered fluticasone 50 mcg/inh nasal spray 1 sprays, Nares, Both, 2 times a day, in each nostril. for allergies, # 16 Gm, 0 Refills, Maintenance, 04/27/20 14:35:00 EST, [place], [facility] 3, Partial fill upon patient request if theprescription is for a schedule II opioid drug., 1... Start Date: 04/27/20 Stop Date: 05/27/20 Status: Ordered halobetasol 0.05% topical ointment See Instructions, APPLY A THIN FILM TO THE AFFECTED SKIN AND RUB IN GENTLY AND COMPLETELY TWICE A DAY, # 50 Gm, 1 Refills, Maintenance, 10/26/21 15:44:00 EDT, [facility], 30, APPLY A THIN FILM TO THE AFFECTED SKIN AND RUB IN GENTLY... Start Date: 10/26/21 Status: Ordered ketoconazole 2% topical shampoo See Instructions, APPLY 1 APPLICATOR TOPICALLY 3X PER WEEK, # 120 mL, 3 Refills, Maintenance, 12/27/21 19:30:00 EDT, [id number], 30, APPLY 1 APPLICATOR TOPICALLY 3X PER WEEK, 155, cm, 12/12/21 16:00:00 EDT, Height, 106.5, kg, 09/14/21 9:38:00 EDT... Start Date: 12/27/21 Status: Ordered loratadine 10 mg oral tablet 1, tablet, By Mouth, Daily, # 90 tablet, Refills 1, Tot. Refills 1, Maintenance, 11/01/21 15:19:00 EDT, Route to Pharmacy Electronically, [facility]/pharmacy #[id number], 155, cm, 09/28/21 12:06:00 EDT, Height, 106.5, kg, 09/14/21 9:38:00 EDT, Dry Weight Start Date: 11/01/21 Status: Ordered Methadone By Mouth, 0 Refills, Maintenance Start Date: 12/25/11 Status: Ordered mupirocin 2% topical cream 1 application, Topically, 3 times a day, # 30 Gm, 2 Refills, Maintenance, 03/08/21 10:26:00 EST, Cream, [facility]/pharmacy #[id number], Partial fill upon patient request if the prescription is for a schedule II opioid drug., 1 application Topically 3 times a day,... Start Date: 03/08/21 Status: Ordered permethrin 5% topical cream 1 application, Topically, Once, to skin head to feet, remove by washing after 8 to 14 hours, # 60 Gm, 0 Refills, Soft Stop, 07/27/20 11:50:00 EDT, Cream, [facility], 1 applicationTopically Once,Instr:to skin head to feet, remove b... Start Date: 07/27/20 Status: Ordered predniSONE 10 mg oral tablet See Instructions, May fill 02/10/22 and weekly on Fridays for 3 weeks, # 14 tablet, 2 Refills, 02/07/22 15:55:00 EST, [facility], 155, cm, 01/23/22 14:00:00 EST, Height, 106.5, kg,09/14/21 9:38:00 EDT, Dry Weight Start Date: 02/07/22 Status: Ordered selenium sulfide 2.5% topical lotion See Instructions, APPLY TOPICALLY TO AFFECTED AREA EVERY DAY FOR 7 DAYS, # 120 mL, 3 Refills, Soft Stop, 10/26/21 15:43:00 EDT, [facility], 7, APPLY TOPICALLY TO AFFECTED AREA EVERY DAY FOR 7 DAYS, 155, cm, 09/28/21 12:06:00 EDT, H... Start Date: 10/26/21 Status: Ordered tiZANidine 2 mg oral tablet 1, tablet, By Mouth, 3 times a day, # 60 tablet, Refills 0, Route to Pharmacy Electronically, [id number], 155, cm, 05/03/21 14:39:00 EST, Height, 95.9, kg, 12/05/20 10:08:00 EDT, Dry Weight Start Date: 05/09/21 Status: Ordered traMADol 50 mg oral tablet 1 tablet = 50 mg, By Mouth, Every 8 hours, PRN Pain , Severe, for 7 days, May fill 02/10/22 and weekly on Fridays for 3 weeks, # 21 tablet, 2 Refills, Acute 02/28/22 15:55:00 EST, 02/07/22 15:55:00 EST, Tablet, [facility], Partial f... Start Date: 02/07/22 Stop Date: 02/28/22 Status: Ordered Problem List Condition Confirmation Course Effective Dates Status H ealth Status Informant Anxiety Confirmed Active Opioid type dependence, continuous 1 Confirmed Active Osteoarthritis of left knee Confirmed Active Psoriasis Confirmed Active Severe obesity Confirmed Active 1Client had been seen by Jazz Francois at [facility]. Client has no-showed to last appt and [...] Personnel Name: Ilya De Leon MD Position: [facility] Primary Care Physician Member Role: PCP Address: Address: [address] [place] [address]- Care Team Related Persons Name: JD ALVAREZ Address: home [address] [place] [id number]
--- OUTSIDE RECORDS SUMMARY | 2022-11-03 10:43 | XMS_ITS | Continuity of Care Document ---
Author Name Unknown Organization [facility] Address [address] [place] [address]- Care Team Providers Care Can Reforming Machine Operator Name Role Phone Ilya De Leon MD Primary Care Physician Encounter [facility] [id number] Date(s): 08/22/22 - 09/22/22 [facility] [address] [place] [address]- Attending Physician: Leyda Sampson MD Admitting Physician: Leyda Sampson MD Referring Physician: Atul Cain MD Allergies, Adverse [...] Maintenance, 06/29/21 15:10:00 EDT, ER Tablet, [id number], Partial fill upon patient request if the [...] 3 Refills, Maintenance, 09/19/22 11:12:00 EDT, Cream, [facility], 1 application Topically 2 times a day,PRN:for dry skin, 155, cm, 09/04/22 10:17:00 EDT, Height,... Start Date: 09/19/22 Status: Ordered cetirizine 10 mg oral tablet, chewable 1 tablet = 10 mg, By Mouth, Daily, PRN for allergy symptoms, # 12 tablet, 4 Refills, Maintenance, 09/04/22 10:28:00 EDT, Chew Tablet, [facility], Partial fill upon patient request ifthe prescription is for a schedule II opioid drug.,... Start Date: 09/04/22 Stop Date: 10/24/22 Status: Ordered cholecalciferol 1000 intl units oral capsule 1 capsule = 25 mcg, By Mouth, Daily, vitamin D, # 100 capsule, 3 Refills, Maintenance, 07/24/22 13:10:00 EDT, Capsule, [facility]/pharmacy #[id number], Partial fill [...] 3 Refills, Maintenance, 09/06/22 14:07:00 EDT, Tablet, [facility], [employer] reviewed, covering for Dr. De Leon, 1... Start Date: 09/06/22 Stop Date: 10/04/22 Status: Ordered clonazePAM 0.5 mg oral tablet 1 tablet = 0.5 mg, By Mouth, 2 times a day, Increaseddose July weekly on Fridays for 3 weeks starting on 07/21, # 14 tablet, 2 Refills, Maintenance, 07/19/22 12:38:00 EDT, Tablet, [facility], [employer] reviewed, covering for Dr. De Leon, 1... Start Date: 07/19/22 Stop Date: 08/09/22 Status: Ordered Dovonex 0.005% topical cream 1 applicator, Topically, 2 times a day, # 60 Gm, 5 Refills, Maintenance, 05/24/22 12:41:00 EDT, [facility], 1 applicator Topically 2 times a day,x30 days, 155, cm, 01/23/22 14:00:00 EST, Height, 106.5, kg, 09/14/21 9:38:00 EDT, Dry... Start Date: 05/24/22 Stop Date: 11/20/22 Status: Ordered Eucerin Unscented topical lotion See Instructions, apply as frequently as needed, # 1 each, 3 Refills, Maintenance, 09/19/22 11:12:00 EDT, [facility], Partial fill upon patient request if the prescription is for a schedule II opioid drug., apply as frequently as n... Start Date: 09/19/22 Status: Ordered Eucerin Unscented topical lotion See Instructions, apply as frequently as needed, # 1 each, 0 Refills, Maintenance, 09/28/21 12:23:00 EDT, [facility], Partial fill upon patient request if the prescription is for a schedule II opioid drug., apply as frequently as n... Start Date: 09/28/21 Status: Ordered fluticasone 50 mcg/inh nasal spray 1 sprays, Nares, Both, 2 times a day, in each nostril. for allergies, # 16 Gm, 0 Refills, Maintenance, 04/27/20 14:35:00 EST, [place], [facility] 3, Partial fill upon patient request if theprescription is for a schedule II opioid drug., 1... Start Date: 04/27/20 Stop Date: 05/27/20 Status: Ordered halobetasol 0.05% topical ointment See Instructions, APPLY A THIN FILM TO THE AFFECTED SKIN AND RUB IN GENTLY AND COMPLETELY TWICE A DAY, # 50 Gm, 0 Refills, Maintenance, 09/12/22 13:49:00 EDT, [facility]/pharmacy #[id number], 30, APPLY A THIN FILM TO THE AFFECTED SKIN AND RUB IN GENTLY AND COMPLET... Start Date: 09/12/22 Status: Ordered halobetasol 0.05% topical ointment See Instructions, APPLY A THIN FILM TO THE AFFECTED SKIN AND RUB IN GENTLY AND COMPLETELY TWICE A DAY, # 50 Gm, 3 Refills, Maintenance, 09/19/22 11:12:00 EDT, [facility], 30, APPLY A THIN FILM TO THE AFFECTED SKIN AND RUB IN GENTLY... Start Date: 09/19/22 Status: Ordered ketoconazole 2% topical shampoo See Instructions, APPLY 1 APPLICATOR TOPICALLY 3X PER WEEK, # 120 mL, 3 Refills, Maintenance, 05/16/22 8:48:00 EST, [facility] ST[id number], 30, APPLY 1 APPLICATOR TOPICALLY 3X PER WEEK, 155, cm, 01/23/22 14:00:00 EST, Height, 106.5, kg, 09/14/21 9:38:00 EDT,... Start Date: 05/16/22 Status: Ordered loratadine 10 mg oral tablet 1, tablet, By Mouth, Daily, # 30 tablet, Refills 5, Tot. Refills 5, Maintenance, 07/04/22 8:39:00 EDT, Route to Pharmacy Electronically, [facility]/pharmacy #[id number], 155, cm, 01/23/22 14:00:00 [...] tablet, 3 Refills, Maintenance, 09/19/22 11:07:00 EDT, [facility], Partial fill upon patient request if the prescription is for a schedule II opioid drug., 15... Start Date: 09/19/22 Status: Ordered selenium sulfide 2.5% topical lotion See Instructions, APPLY TOPICALLY TO AFFECTED AREA EVERY DAY FOR 7 DAYS, # 120 mL, 3 Refills, Soft Stop, 10/26/21 15:43:00 EDT, [facility], 7, APPLY TOPICALLY TO AFFECTED AREA EVERY DAY FOR 7 DAYS, 155, cm, 09/28/21 12:06:00 EDT, H... Start Date: 10/26/21 Status: Ordered simvastatin 20 mg oral tablet 20 mg, 1, tablet, By Mouth, Daily at bedtime, for cholesterol, # 30 tablet, Refills 5, Tot. Refills5, Maintenance, 07/24/22 13:12:00 EDT, Route to Pharmacy Electronically, [facility]/pharmacy #[id number], Partial fill [...] Acute 10/06/22 8:49:00 EDT, 09/08/22 8:49:00 EDT,Tablet, [facility], Partial fi... Start Date: 09/08/22 Stop [...] been seen by Jazz Francois at [facility]. Client has no-showed to last appt [...] Personnel Name: Ilya De Leon MD Position: [facility] Physician - Primary Care Member Role: PCP Address: Address: [address] [place] [address]- Care Team Related Persons Name: JD ALVAREZ Address: home [address] [place] [id number]
--- OUTSIDE RECORDS SUMMARY | 2022-11-03 10:43 | XMS_ITS | Continuity of Care Document ---
Author Name Unknown Organization [facility] Address [address] [place] [address]- Care Team Providers Care Fish Cutting Machine Operator Name Role Phone Haley NEWMAN, Ilya Primary Care Physician Encounter [facility] Date(s): 09/14/20 - 10/14/20 [facility]/[address] [address]- Allergies, Adverse Reactions, Alerts Substance Reaction Severity [...] AT [facility] Medications acetaminophen 500 mg oral tablet 2 tablet = 1,000 mg, By Mouth, 3 times a day, PRN as needed for fever, not to exceed 3000 mg/day take scheduled three times a day, # 100 tablet, 1 Refills, Acute 12/26/20 11:44:00 EDT, 09/24/20 11:43:00 EDT, Tablet, [facility]/pharmacy #[id number], Partial fill u... Start Date: 09/24/20 Stop Date: 12/26/20 Status: Ordered Cavilon Emollient topical cream 1 application, Topically, 2 times a day, PRN for dry skin, # 454 Gm, 1 Refills, Maintenance, 09/30/19 16:26:00 EDT, Cream, [facility] 3, 1 application Topically 2 times a day,PRN:for dry skin, 158, cm, 08/27/19 13:02:00 EDT, Height, 76, kg... Start Date: 09/30/19 Status: Ordered cetirizine 10 mg oral tablet 1 tablet = 10 mg, By Mouth, Daily, for allergies. Do NOT take with claritin, # 30 tablet, 0 Refills, Maintenance, 07/23/20 11:37:00 EDT, Tablet, [facility], Partial fill upon patient request if the prescription is for a schedule II... Start Date: 07/23/20 Stop Date: 08/22/20 Status: Ordered Claritin 10 mg oral tablet 10 mg, 1, tablet, By Mouth, Daily, # 15 tablet, Refills 3, Tot. Refills 3, Maintenance, 11/06/18 8:33:38 EDT, Route to Pharmacy Electronically, [id number], [facility] Start Date: 11/06/18 Status: Ordered clonazePAM 0.5 mg oral tablet 1 tablet = 0.5 mg, By Mouth, Daily, # 28 tablet, 0 Refills, Maintenance, 09/22/20 12:58:00 EDT, Tablet, [facility], Partial fill upon patient request if the prescription is for a schedule II opioid drug., 158, cm, 09/08/20 14:36:00... Start Date: 09/22/20 Status: Ordered diphenhydrAMINE 25 mg oral tablet 1 tablet = 25 mg, By Mouth, 3 times a day, PRN as needed for itching, Will cause drowsiness, # 30 tablet, 0 Refills, Maintenance, 07/16/20 15:11:00 EDT, Tablet, [facility], Partial fill upon patient request if the prescription is f... Start Date: 07/16/20 Status: Ordered Dovonex 0.005% topical cream 1 applicator, Topically, 2 times a day, # 60 Gm, 5 Refills, Maintenance, 07/07/19 17:30:00 EDT, [facility] 3, 1 applicator Topically 2 times [...] Gm, 0 Refills, Maintenance, 04/27/20 14:35:00 EST, [place], [facility], Partial fill upon patient request if theprescription is for a schedule II opioid drug., 1... Start Date: 04/27/20 Stop Date: 05/27/20 Status: Ordered furosemide 20 mg oral tablet 20 mg, 1, tablet, By Mouth, Daily, # 30 tablet, Refills 1, Tot. Refills 1, Maintenance, 08/27/20 16:12:00 EDT, Route to Pharmacy Electronically, [facility]/pharmacy #[id number], Partial fill upon patient request if the prescription is for a schedule II opioid drug... Start Date: 08/27/20 Status: Ordered halobetasol 0.05% topical ointment 1 application, Topically, 2 times a day, apply in a thin film to the affected skin and rub in gently and completely, # 50 Gm, 1 Refills, Acute 10/18/20 14:15:00 EDT, 09/24/20 13:11:00 EDT, Ointment, [facility]/pharmacy #[id number], Partial fill upon patient reques... Start Date: 09/24/20 Stop Date: 10/18/20 Status: Ordered hydrocortisone 1% topical cream 1 application, Topically, 2 times a day, Apply to rash areas, # 60 Gm, 3 Refills, Maintenance, 06/04/19 14:52:00 EDT, Cream, [facility], [...] 2 Refills, Maintenance, 09/14/20 17:22:00 EDT, Cream, [facility]/pharmacy #[id number], Partial fill [...] 0 Refills, Maintenance, 10/06/20 15:03:00 EDT, Tablet, [facility]/pharmacy #[id number], Partial fill upon patient request if the prescription is for a schedule II opioid drug., 158, cm, 09/24/20 10:45:00 EDT,... Start Date: 10/06/20 Stop Date: 10/13/20 Status: Ordered selenium sulfide 2.5% topical lotion See Instructions, APPLY TOPICALLY TO AFFECTED AREA EVERY DAY FOR 7 DAYS, # 120 mL, 3 Refills, Soft Stop, 07/23/20 11:40:00 EDT, [facility], 7, APPLY TOPICALLY TO AFFECTED AREA EVERY DAY FOR 7 DAYS, 158, cm, 07/23/20 11:13:00 EDT, H... Start Date: 07/23/20 Status: Ordered Shingrix intramuscular injection = 0.5 mL, Intramuscular, Once, repeat dose in 2 to 6 months, # 2 each, 0 Refills, Soft Stop, 05/27/20 11:03:00 EDT, Powder, [facility], Partial fill upon patient request if [...]
--- OUTSIDE RECORDS SUMMARY | 2022-11-03 10:43 | XMS_ITS | Continuity of Care Document ---
Author Name Unknown Organization [facility] Address [address] [place] [address]- Care Team Providers Care Corn Detasseler Name Role Phone Ilya De [place] MD Primary Care Physician Encounter [facility] [place] Date(s): 09/07/22 - 10/07/22 [facility]/[address] [address]- [place] Allergies, Adverse Reactions, Alerts Substance Reaction [...] 02/06/10 Garrett rded 1Admin Note: ADMIN BY [facility] 2Admin Note: FLUVIRIN MULTIDOSE ADMINISTERED AT [facility] Medications acetaminophen 650 mg oral tablet, extended release 2 tablet = 1,300 mg, By Mouth, Every 8 hours, # 100 tablet, 1 Refills, Maintenance, 06/29/21 15:10:00 EDT, ER Tablet, [id number], Partial fill upon patient request if the prescription is for a schedule II opioid drug., 155, cm, 05/30/21 15:34:... Start Date: 06/29/21 Status: Ordered Cavilon Emollient topical cream 1 application, Topically, 2 times a day, PRN for dry skin, # 454 Gm, 1 Refills, Maintenance, 09/30/19 16:26:00 EDT, Cream, [facility] 3, 1 application Topically 2 times a day,PRN:for dry skin, 158, cm, 08/27/19 13:02:00 EDT, Height, 76, kg... Start Date: 09/30/19 Status: Ordered Cavilon Emollient topical cream 1 application, Topically, 2 times a day, PRN for dry skin, # 454 Gm, 3 Refills, Maintenance, 09/19/22 11:12:00 EDT, Cream, [facility], 1 application Topically 2 times a day,PRN:for dry skin, 155, cm, 09/04/22 10:17:00 EDT, Height,... Start Date: 09/19/22 Status: Ordered cetirizine 10 mg oral tablet, chewable 1 tablet = 10 mg, By Mouth, Daily, PRN for allergy symptoms, # 12 tablet, 4 Refills, Maintenance, 09/04/22 10:28:00 EDT, Chew Tablet, [facility], Partial fill upon patient request ifthe prescription is for a schedule II opioid drug.,... Start Date: 09/04/22 Stop Date: 10/24/22 Status: Ordered cholecalciferol 1000 intl units oral capsule 1 capsule = 25 mcg, By Mouth, Daily, vitamin D, # 100 capsule, 3 Refills, Maintenance, 07/24/22 13:10:00 EDT, Capsule, [facility]/pharmacy #[id number], Partial fill upon patient request if the prescription is fora schedule II opioid drug., 155, cm, 07/17/22 9:50:... Start Date: 07/24/22 Status: Ordered clonazePAM 0.5 mg oral tablet 1 tablet = 0.5 mg, By Mouth, 2 times a day, Increaseddose July weekly on Fridays for 4 weeks starting on 10/05, # 14 tablet, 3 Refills, Maintenance, 10/04/22 8:15:00 EDT, Tablet, [facility], WALLPAPER PRINTER HELPER reviewed, covering for Dr. De [place], 15... Start Date: 10/04/22 Stop Date: 11/01/22 Status: Ordered clonazePAM 0.5 mg oral tablet 1 tablet = 0.5 mg, By Mouth, 2 times a day, Increaseddose July weekly on Fridays for 3 weeks starting on 07/21, # 14 tablet, 2 Refills, Maintenance, 07/19/22 12:38:00 EDT, Tablet, [facility], WALLPAPER PRINTER HELPER reviewed, covering for Dr. De [place], 1... Start Date: 07/19/22 Stop Date: 08/09/22 Status: Ordered Dovonex 0.005% topical cream 1 applicator, Topically, 2 times a day, # 60 Gm, 5 Refills, Maintenance, 05/24/22 12:41:00 EDT, [facility], 1 applicator Topically 2 times a day,x30 days, 155, cm, 01/23/22 14:00:00 EST, Height, 106.5, kg, 09/14/21 9:38:00 EDT, Dry... Start Date: 05/24/22 Stop Date: 11/20/22 Status: Ordered Eucerin Unscented topical lotion See Instructions, apply as frequently as needed, # 1 each, 3 Refills, Maintenance, 09/19/22 11:12:00 EDT, [facility], Partial fill upon [...] Gm, 0 Refills, Maintenance, 04/27/20 14:35:00 EST, [place], [facility] 3, Partial fill upon patient request if theprescription is for a schedule II opioid drug., 1... Start Date: 04/27/20 Stop Date: 05/27/20 Status: Ordered halobetasol 0.05% topical ointment See Instructions, APPLY A THIN FILM TO THE AFFECTED SKIN AND RUB IN GENTLY AND COMPLETELY TWICE A DAY, # 50 Gm, 0 Refills, Maintenance, 09/12/22 13:49:00 EDT, [facility]/pharmacy #[id number], 30, APPLY A THIN FILM TO THE AFFECTED SKIN AND RUB IN GENTLY AND COMPLET... Start Date: 09/12/22 Status: Ordered halobetasol 0.05% topical ointment See Instructions, APPLY A THIN FILM TO THE AFFECTED SKIN AND RUB IN GENTLY AND COMPLETELY TWICE A DAY, # 50 Gm, 3 Refills, Maintenance, 09/19/22 11:12:00 EDT, [facility], 30, APPLY A THIN FILM TO THE AFFECTED SKIN AND RUB IN GENTLY... Start Date: 09/19/22 Status: Ordered ketoconazole 2% topical shampoo See Instructions, APPLY 1 APPLICATOR TOPICALLY 3X PER WEEK, # 120 mL, 3 Refills, Maintenance, 05/16/22 8:48:00 EST, [facility] STORE [id number], 30, APPLY 1 APPLICATOR TOPICALLY 3X PER WEEK, 155, cm, 01/23/22 14:00:00 EST, Height, 106.5, kg, 09/14/21 9:38:00 EDT,... Start Date: 05/16/22 Status: Ordered loratadine 10 mg oral tablet 1, tablet, By Mouth, Daily, # 30 tablet, Refills 5, Tot. Refills 5, Maintenance, 07/04/22 8:39:00 EDT, Route to Pharmacy Electronically, [facility]/pharmacy #[id number], 155, cm, 01/23/22 14:00:00 EST, Height, 106.5, kg, 09/14/21 9:38:00 EDT, Dry Weight Start Date: 07/04/22 Status: Ordered Methadone By Mouth, 0 Refills, Maintenance Start Date: 12/25/11 Status: Ordered mupirocin 2% topical cream 1 application, Topically, 3 times a day, # 30 Gm, 2 Refills, Maintenance, 03/08/21 10:26:00 EST, Cream, [facility]/pharmacy #[id number], Partial fill upon patient [...] tablet, 3 Refills, Maintenance, 10/04/22 8:15:00 EDT, [facility], Partial fill upon patient request if theprescription is for a schedule II opioid drug., 155... Start Date: 10/04/22 Status: Ordered selenium sulfide 2.5% topical lotion See Instructions, APPLY TOPICALLY TO AFFECTED AREA EVERY DAY FOR 7 DAYS, # 120 mL, 3 Refills, Soft Stop, 10/26/21 15:43:00 EDT, [facility], 7, APPLY TOPICALLY TO AFFECTED AREA EVERY DAY FOR 7 DAYS, 155, cm, 09/28/21 12:06:00 EDT, H... Start Date: 10/26/21 Status: Ordered simvastatin 20 mg oral tablet 20 mg, 1, tablet, By Mouth, Daily at bedtime, for cholesterol, # 30 tablet, Refills 5, Tot. Refills5, Maintenance, 07/24/22 13:12:00 EDT, Route to Pharmacy Electronically, [facility]/pharmacy #[id number], Partial fill upon patient request if the prescription is f... Start Date: 07/24/22 Status: Ordered traMADol 50 mg oral tablet 1 tablet = 50 mg, By Mouth, Every 8 hours, PRN Pain , Severe, for 7 days, 4May fill 10/05/22 and weekly on Fridays for 4 weeks, # 21 tablet, 3 Refills, Acute 11/01/22 8:14:00 EDT, 10/04/22 8:14:00 EDT, Tablet, [facility], Partial fi... Start Date: 10/04/22 Stop [...] been seen by Jazz Francois at [facility]. Client has no-showed to last [...] Primary Care Member Role: PCP Address: Address: [address] [place] [id number]- Care Team Related Persons Name: JD ALVAREZ Address: [address] [address]
--- OUTSIDE RECORDS SUMMARY | 2022-11-03 10:43 | XMS_ITS | Continuity of Care Document ---
Author Name Unknown Organization [facility] Address Unknown Care Team Providers Care Octave Board Racker Name Role Phone Ilya De [place] MD Primary Care Physician Encounter [facility] [place] Date(s): 09/19/21 - 10/19/21 [facility] Allergies, Adverse Reactions, Alerts Substance Reaction [...] 06/29/21 15:10:00 EDT, ER Tablet, [facility]/pharmacy #[id number], Partial fill upon patient request if the prescription is for a schedule II opioid drug., 155, cm, 05/30/21 15:34:... Start Date: 06/29/21 Status: Ordered capsaicin 0.025% topical cream See Instructions, APPLY TO AFFECTED AREA TWICE A DAY, # 60 Gm, 1 Refills, [id number], 30, APPLY TO AFFECTED AREA TWICE A DAY, 155, cm, 05/30/21 15:34:00 EDT, Height, 95.9, kg, 12/05/20 10:08:00 EDT, Dry Weight Start Date: 05/31/21 Status: Ordered Cavilon Emollient topical cream 1 application, Topically, 2 times a day, PRN for dry skin, # 454 Gm, 1 Refills, Maintenance, 09/30/19 16:26:00 EDT, Cream, [facility] 3, 1 application Topically 2 times a day,PRN:for dry skin, 158, cm, 08/27/19 13:02:00 EDT, Height, 76, kg... Start Date: 09/30/19 Status: Ordered clonazePAM 0.5 mg oral tablet 1 tablet = 0.5 mg, By Mouth, Daily at bedtime, May fill 10/14/21, # 7 tablet, 0 Refills, Maintenance,10/12/21 15:30:00 EDT, Tablet, [facility], ADVERTISEMENT COMPOSITOR reviewed, covering for Dr. De [place], 155, cm, 09/28/21 12:06:00 EDT, Height, 106.5, k... Start Date: 10/12/21 Stop Date: 10/19/21 Status: Ordered clonazePAM 0.5 mg oral tablet 1 tablet = 0.5 mg, By Mouth, Daily at bedtime, May cammie l 09/22/21, # 7 tablet, 0 Refills, Maintenance, 09/21/21 7:19:00 EDT, Tablet, [facility], ADVERTISEMENT COMPOSITOR reviewed, covering for Dr. De [place], 155, cm, 09/15/21 10:14:00 EDT, Height, 106.5,... Start Date: 09/21/21 Stop Date: 09/28/21 Status: Ordered coal tar topical 2% foam 1 application, Topically, 4 times a day, # 100 Gm, 1 Refills, Maintenance, 09/28/21 12:24:00 EDT, Foam, [facility], Partial fill upon patient request if the prescription is for a schedule II opioid drug., 1 application Topically 4... Start Date: 09/28/21 Status: Ordered Dovonex 0.005% topical cream 1 applicator, Topically, 2 times a day, # 60 Gm, 5 Refills, Maintenance, 07/07/19 17:30:00 EDT, [facility] 3, 1 applicator Topically 2 times a day,x30 days, 158, cm, 12/24/18 10:25:00 EDT, Height, 76, kg, 04/12/19 15:31:00 EST, Dry Weight Start Date: 07/07/19 Stop Date: 01/03/20 Status: Ordered Eucerin Unscented topical lotion See Instructions, apply as frequently as needed, # 1 each, 0 Refills, Maintenance, 09/28/21 12:23:00 EDT, [facility], Partial fill upon patient request if the prescription is for a schedule II opioid drug., apply as frequently as n... Start Date: 09/28/21 Status: Ordered fluticasone 50 mcg/inh nasal spray 1 sprays, Nares, Both, 2 times a day, in each nostril. for allergies, # 16 Gm, 0 Refills, Maintenance, 04/27/20 14:35:00 EST, [place], [facility] 3, Partial fill upon patient request if theprescription is for a schedule II opioid drug., 1... Start Date: 04/27/20 Stop Date: 05/27/20 Status: Ordered halobetasol 0.05% topical ointment See Instructions, APPLY A THIN FILM TO THE AFFECTED SKIN AND RUB IN GENTLY AND COMPLETELY TWICE A DAY, # 50 Gm, 1 Refills, [facility] [id number], 30, APPLY A THIN FILM TO THE AFFECTED SKIN AND RUB IN GENTLY AND COMPLETELY TWICE A DAY, 155, cm, 12/05/20 10:0... Start Date: 03/15/21 Status: Ordered hydrocortisone 1% topical cream 1 application, Topically, 2 times a day, # 30 Gm, 0 Refills, Maintenance, 06/17/21 11:42:00 EDT, Cream, [facility] 3, Partial fill upon patient request if the prescription is for a schedule II opioid drug., 1 application Topically 2 times... Start Date: 06/17/21 Status: Ordered hydrOXYzine hydrochloride 25 mg oral tablet 1 capsule, By Mouth, 3 times a day, PRN for itching, for 30 days, # 90 capsule, 1 Refills, Acute 10/23/21 14:41:00 EDT, 08/24/21 14:41:00 EDT, Capsule, [facility], Partial fill upon patient request if the prescription is for a sche... Start Date: 08/24/21 Stop Date: 10/23/21 Status: Ordered ketoconazole 2% topical shampoo See Instructions, APPLY 1 APPLICATOR TOPICALLY 3X PER WEEK, # 120 mL, 3 Refills, [id number], 30, APPLY 1 APPLICATOR TOPICALLY 3X PER WEEK, 155, cm, 05/30/21 15:34:00 EDT, Height, 95.9, kg, 12/05/20 10:08:00 EDT, Dry Weight Start Date: 08/02/21 Status: Ordered loratadine 10 mg oral tablet 1, tablet, By Mouth, Daily, # 15 tablet, Refills 5, Tot. Refills 5, Maintenance, 08/19/21 9:15:00 EDT, [id number], cm, 05/30/21 15:34:00 EDT, Height, [...] 07/27/20 11:50:00 EDT, Cream, [facility], 1 applicationTopically Once,Instr:to skin head to feet, remove b... Start Date: 07/27/20 Status: Ordered selenium sulfide 2.5% topical lotion See Instructions, APPLY TOPICALLY TO AFFECTED AREA EVERY DAY FOR 7 DAYS, # 120 mL, 3 Refills, Soft Stop, 09/28/21 12:25:00 EDT, [facility], 7, APPLY TOPICALLY TO AFFECTED AREA EVERY DAY FOR 7 DAYS, 155, cm, 09/28/21 12:06:00 EDT, H... Start Date: 09/28/21 Status: Ordered tiZANidine 2 mg oral tablet 1, tablet, By Mouth, 3 times a day, # 60 tablet, Refills 0, Route to Pharmacy Electronically, [id number], 155, cm, 05/03/21 14:39:00 EST, Height, 95.9, [...]
--- OUTSIDE RECORDS SUMMARY | 2022-11-03 10:43 | XMS_ITS | Continuity of Care Document ---
Author Name Unknown Organization [facility] Address [address] [place] [id number]- Care Team Providers Care Snow Groomer Name Role Phone Ilya De [place] MD Primary Care Physician Encounter [facility] [place] Date(s): 11/08/21 - 12/08/21 [facility]/[address] [address]- [place] Allergies, Adverse Reactions, Alerts Substance Reaction [...] Maintenance, 06/29/21 15:10:00 EDT, ER Tablet, [id number], Partial fill upon patient request if the prescription is for a schedule II opioid drug., 155, cm, 05/30/21 15:34:... Start Date: 06/29/21 Status: Ordered capsaicin 0.025% topical cream See Instructions, APPLY TO AFFECTED AREA TWICE A DAY, # 60 Gm, 1 Refills, [facility] STORE [id number], 30, APPLY TO AFFECTED AREA TWICE A DAY, 155, cm, 05/30/21 15:34:00 EDT, Height, 95.9, kg, 12/05/20 10:08:00 EDT, Dry Weight Start Date: 05/31/21 Status: Ordered Cavilon Emollient topical cream 1 application, Topically, 2 times a day, PRN for dry skin, # 454 Gm, 1 Refills, Maintenance, 09/30/19 16:26:00 EDT, Cream, [facility] 3, 1 application Topically 2 times a day,PRN:for dry skin, 158, cm, 08/27/19 13:02:00 EDT, Height, 76, kg... Start Date: 09/30/19 Status: Ordered clonazePAM 0.5 mg oral tablet 1 tablet = 0.5 mg, By Mouth, Daily at bedtime, May fill 12/09/21 and weekly on Fridays for3 weeks, #7 tablet, 2 Refills, Maintenance, 12/06/21 10:38:00 EDT, Tablet, [facility], WORK CAR OPERATOR reviewed, covering for Dr. De [place], 155, cm, 09/28... Start Date: 12/06/21 Stop Date: 12/27/21 Status: Ordered coal tar topical 1% lotion See Instructions, applyTopically Daily at bedtime, # 120 mL, 3 Refills, Maintenance, 10/26/21 15:45:00 EDT, [facility], Partial fill upon patient request if the prescription is for a schedule II opioid drug., applyTopically Daily a... Start Date: 10/26/21 Status: Ordered Dovonex 0.005% topical cream 1 applicator, Topically, 2 times a day, # 60 Gm, 5 Refills, Maintenance, 07/07/19 17:30:00 [facility], 1 applicator Topically 2 times a day,x30 days, 158, cm, 12/24/18 10:25:00 EDT, Height, 76, kg, 04/12/19 15:31:00 EST, Dry Weight Start Date: 07/07/19 Stop Date: 01/03/20 Status: Ordered Eucerin Unscented topical lotion See Instructions, apply as frequently as needed, # 1 each, 0 Refills, Maintenance, 09/28/21 12:23:00 EDT, [facility], Partial fill upon patient request if the prescription is for a schedule II opioid drug., apply as frequently as n... Start Date: 09/28/21 Status: Ordered fluticasone 50 mcg/inh nasal spray 1 sprays, Nares, Both, 2 times a day, in each nostril. for allergies, # 16 Gm, 0 Refills, Maintenance, 04/27/20 14:35:00 EST, [place], [facility] 3, Partial fill upon patient request if theprescription is for a schedule II opioid drug., 1... Start Date: 04/27/20 Stop Date: 05/27/20 Status: Ordered halobetasol 0.05% topical ointment See Instructions, APPLY A THIN FILM TO THE AFFECTED SKIN AND RUB IN GENTLY AND COMPLETELY TWICE A DAY, # 50 Gm, 1 Refills, Maintenance, 10/26/21 15:44:00 EDT, [facility], 30, APPLY A THIN FILM TO THE AFFECTED SKIN AND RUB IN GENTLY... Start Date: 10/26/21 Status: Ordered hydrocortisone 1% topical cream 1 application, Topically, 2 times a day, # 30 Gm, 0 Refills, Maintenance, 06/17/21 11:42:00 EDT, Cream, [facility] 3, Partial fill upon patient request if the prescription is for a schedule II opioid drug., 1 application Topically 2 times... Start Date: 06/17/21 Status: Ordered ketoconazole 2% topical shampoo See Instructions, APPLY 1 APPLICATOR TOPICALLY 3X PER WEEK, # 120 mL, 3 Refills, [facility] [id number], 30, APPLY 1 APPLICATOR TOPICALLY 3X PER WEEK, 155, cm, 05/30/21 15:34:00 EDT, Height, 95.9, kg, 12/05/20 10:08:00 EDT, Dry Weight Start Date: 08/02/21 Status: Ordered loratadine 10 mg oral tablet 1, tablet, By Mouth, Daily, # 90 tablet, Refills 1, Tot. Refills 1, Maintenance, 11/01/21 15:19:00 EDT, [id number], 155, cm, 09/28/21 12:06:00 EDT, Height, 106.5, kg, 09/14/21 9:38:00 EDT, Dry Weight Start Date: 11/01/21 Status: Ordered Methadone By Mouth, 0 Refills, Maintenance Start Date: 12/25/11 Status: Ordered mupirocin 2% topical cream 1 application, Topically, 3 times a day, # 30 Gm, 2 Refills, Maintenance, 03/08/21 10:26:00 EST, Cream, [facility]/pharmacy #[id number], Partial [...] Refills, Soft Stop, 07/27/20 11:50:00 EDT, Cream, [facility], 1 applicationTopically Once,Instr:to skin head to feet, remove b... Start Date: 07/27/20 Status: Ordered predniSONE 10 mg oral tablet See Instructions, May fill 12/09/21 and weekly on Fridays for 3 weeks, # 14 tablet, 2 Refills, 12/06/21 10:38:00 EDT, [facility], 155, cm, 09/28/21 12:06:00 EDT, Height, 106.5, kg,09/14/21 9:38:00 EDT, Dry Weight Start Date: 12/06/21 Status: Ordered selenium sulfide 2.5% topical lotion See Instructions, APPLY TOPICALLY TO AFFECTED AREA EVERY DAY FOR 7 DAYS, # 120 mL, 3 Refills, Soft Stop, 10/26/21 15:43:00 EDT, [facility], 7, APPLY TOPICALLY TO AFFECTED AREA EVERY DAY FOR 7 DAYS, 155, cm, 09/28/21 12:06:00 EDT, H... Start Date: 10/26/21 Status: Ordered tiZANidine 2 mg oral tablet 1, tablet, By Mouth, 3 times a day, # 60 tablet, Refills 0, Route to Pharmacy Electronically, [facility] STORE [id number], 155, cm, 05/03/21 14:39:00 EST, Height, 95.9, kg, 12/05/20 10:08:00 EDT, Dry Weight Start Date: 05/09/21 Status: Ordered traMADol 50 mg oral tablet 1 tablet = 50 mg, By Mouth, Every 8 hours, PRN Pain , Severe, for 7 days, May fill 12/09/21 and weekly on Fridays for3 weeks, # 21 tablet, 2 Refills, Acute 12/27/21 10:38:00 EDT, 12/06/21 10:38:00 EDT, Tablet, [facility], Partial fi... Start Date: 12/06/21 Stop Date: 12/27/21 Status: Ordered Problem List Condition Confirmation Course Effective Dates Status H ealth Status Informant Anxiety Confirmed Active Opioid type dependence, continuous 1 Confirmed Active Osteoarthritis of left knee Confirmed Active Psoriasis Confirmed Active Severe obesity Confirmed Active 1Client had been seen by Jazz Francois at [facility]. Client has no-showed to last appt and today.She will be targetted for closing if she does not responde to correspondence that will be sent on 02/14/13 Social History Social History Type Response Smoking Status 10 or more cigarette s (1/2 pack or more)/day in last 30 days entered on: 04/18/21 Sex Patient Care team information Personnel Name: Iyla De [place] MD Address: Address: [address] [place] [address]
--- OUTSIDE RECORDS SUMMARY | 2022-11-03 10:43 | XMS_ITS | Continuity of Care Document ---
Author Name Unknown Organization [facility] Address [address] [place] [id number]- Care Team Providers Care Neonatal Nurse Practitioner Name Role Phone Ilya De [place] MD Primary Care Physician Encounter [facility] [place] Date(s): 12/14/21 - 01/13/22 [facility] [address]- [place] Allergies, Adverse Reactions, Alerts Substance Reaction [...] Maintenance, 06/29/21 15:10:00 EDT, ER Tablet, [id number], Partial fill upon patient request if the prescription is for a schedule II opioid drug., 155, cm, 05/30/21 15:34:... Start Date: 06/29/21 Status: Ordered capsaicin 0.025% topical cream See Instructions, APPLY TO AFFECTED AREA TWICE A DAY, # 60 Gm, 1 Refills, [facility] STORE [id number], 30, APPLY TO AFFECTED AREA TWICE A DAY, 155, cm, 05/30/21 15:34:00 EDT, Height, 95.9, kg, 12/05/20 10:08:00 EDT, Dry Weight Start Date: 05/31/21 Status: Ordered Cavilon Emollient topical cream 1 application, Topically, 2 times a day, PRN for dry skin, # 454 Gm, 1 Refills, Maintenance, 09/30/19 16:26:00 EDT, Cream, [facility] 3, 1 application Topically 2 times a day,PRN:for dry skin, 158, cm, 08/27/19 13:02:00 EDT, Height, 76, kg... Start Date: 09/30/19 Status: Ordered clonazePAM 0.5 mg oral tablet 1 tablet = 0.5 mg, By Mouth, Daily at bedtime, May fill 12/09/21 and weekly on Fridays for3 weeks, #7 tablet, 2 Refills, Maintenance, 12/06/21 10:38:00 EDT, Tablet, [facility], AUTO REFINISHER reviewed, covering for Dr. De [place], 155, cm, 09/28... Start Date: 12/06/21 Stop Date: 12/27/21 Status: Ordered clonazePAM 0.5 mg oral tablet 1 tablet = 0.5 mg, By Mouth, Daily at bedtime, May fill 12/30/21 and weekly on Fridays for3 weeks, # 7 tablet, 2 Refills, Maintenance, 12/27/21 16:07:00 EDT, Tablet, [facility], AUTO REFINISHER reviewed, covering for Dr. De [place], 155, [...] Gm, 5 Refills, Maintenance, 07/07/19 17:30:00 EDT, [facility] 3, 1 applicator Topically 2 times [...] Gm, 0 Refills, Maintenance, 04/27/20 14:35:00 EST, [place], [facility] 3, Partial fill upon patient request [...] 0 Refills, Maintenance, 06/17/21 11:42:00 EDT, Cream, [facility] 3, Partial fill upon patient request if the prescription is for a schedule II opioid drug., 1 application Topically 2 times... Start Date: 06/17/21 Status: Ordered ketoconazole 2% topical shampoo See Instructions, APPLY 1 APPLICATOR TOPICALLY 3X PER WEEK, # 120 mL, 3 Refills, Maintenance, 12/27/21 19:30:00 EDT, [facility] STORE [id number], 30, APPLY 1 APPLICATOR TOPICALLY 3X PER WEEK, 155, cm, 12/12/21 16:00:00 EDT, Height, 106.5, kg, 09/14/21 9:38:00 EDT... Start Date: 12/27/21 Status: Ordered loratadine 10 mg oral tablet 1, tablet, By Mouth, Daily, # 90 tablet, Refills 1, Tot. Refills 1, Maintenance, 11/01/21 15:19:00 EDT, Route to Pharmacy Electronically, [facility]/pharmacy #[id number], 155, cm, 09/28/21 12:06:00 EDT, [...] 14 tablet, 2 Refills, 12/06/21 10:38:00 EDT, [facility], 155, cm, 09/28/21 12:06:00 EDT, Height, 106.5, kg,09/14/21 9:38:00 EDT, Dry Weight Start Date: 12/06/21 Status: Ordered predniSONE 10 mg oral tablet See Instructions, May fill 12/30/21 and weekly on Fridays for 3 weeks, # 14 tablet, 2 Refills, 12/27/21 16:07:00 EDT, [facility], 155, cm, 12/12/21 16:00:00 EDT, Height, [...] tablet, Refills 0, Route to Pharmacy Electronically, [facility]ORE [id number], 155, cm, 05/03/21 14:39:00 EST, Height, 95.9, kg, 12/05/20 10:08:00 EDT, Dry Weight Start Date: 05/09/21 Status: Ordered traMADol 50 mg oral tablet 1 tablet = 50 mg, By Mouth, Every 8 hours, PRN Pain , Severe, for 7 days, May fill 12/30/21 and weekly on Fridays for3 weeks, # 21 tablet, 2 Refills, Acute 01/17/22 16:07:00 EST, 12/27/21 16:07:00 EDT, Tablet, [facility], Partial f... Start Date: 12/27/21 Stop [...] Name: Ilya De [place] MD Address: Address: [address] [place] [id number]
--- OUTSIDE RECORDS SUMMARY | 2022-11-03 10:43 | XMS_ITS | Continuity of Care Document ---
Author Name Unknown Organization [facility] Address Unknown Care Team Providers Care Project Coach Name Role Phone Ilya De Leon MD Primary Care Physician [place] [facility] [place]21 [facility] Allergies, Adverse Reactions, Alerts Substance [...] 1 Refills, Maintenance, 09/30/19 16:26:00 EDT, Cream, [facility], 1 application Topically 2 times a day,PRN:for dry skin, 158, cm, 08/27/19 13:02:00 EDT, Height, 76, kg... Start Date: 09/30/19 Status: Ordered cetirizine 10 mg oral tablet 1 tablet = 10 mg, By Mouth, Daily, # 30 tablet, 0 Refills, Maintenance, 12/03/20 13:44:00 EDT, [id number] Partial fill upon patient request if the prescription is for a schedule II opioid drug., 158, cm, 12/03/20 13:27:00 EDT, Height,... Start Date: 12/03/20 Status: Ordered Claritin 10 mg oral tablet 10 mg, 1, tablet, By Mouth, Daily, # 15 tablet, Refills 3, Tot. Refills 3, Maintenance, 11/06/18 8:33:38 EDT, Route to Pharmacy Electronically, [id number], [facility] Start Date: 11/06/18 Status: Ordered clonazePAM 0.5 mg oral tablet 1 tablet = 0.5 mg, By Mouth, Daily, YARN EXAMINER checked Fill 01/21/21 for 28 days, # 28 tablet, 0 Refills, Maintenance, 01/20/21 12:45:00 EST, [facility], [id number] Partial fill upon patient request ifthe [...] Gm, 5 Refills, Maintenance, 07/07/19 17:30:00 EDT, [facility] 3, 1 applicator Topically 2 [...] Gm, 0 Refills, Maintenance, 04/27/20 14:35:00 EST, [place], [facility], Partial fill upon patient request if theprescription is for a schedule II opioid drug., 1... Start Date: 04/27/20 Stop Date: 05/27/20 Status: Ordered furosemide 20 mg oral tablet 1, tablet, By Mouth, Daily, # 30 tablet, Refills 3, Tot. Refills 3, Maintenance, 01/20/21 12:45:00 EST, Route to Pharmacy Electronically, [facility]/pharmacy #[id number], 155, cm, 12/05/20 10:08:00 EDT, Height, 95.9, kg, 12/05/20 10:08:00 EDT, Dry Weight Start Date: 01/20/21 Status: Ordered halobetasol 0.05% topical ointment See Instructions, APPLY A THIN FILM TO THE AFFECTED SKIN AND RUB IN GENTLY AND COMPLETELY TWICE A DAY, # 50 Gm, 1 Refills, [facility] [id number], 30, APPLY A THIN FILM TO THE AFFECTED SKIN AND RUB IN GENTLY AND COMPLETELY TWICE A DAY, 155, cm, 12/05/20 10:0... Start Date: 01/16/21 Status: Ordered hydrocortisone 1% topical cream 1 application, Topically, 2 times a day, Apply to rash areas, # 60 Gm, 3 Refills, Maintenance, 06/04/19 14:52:00 EDT, Cream, [facility], 1 application Topically 2 times a day,Instr:Apply to rash areas, 158, cm, 12/24/18 10:25:00 EDT, [place]i... Start Date: 06/04/19 Status: Ordered ketoconazole 2% topical shampoo See Instructions, APPLY 1 APPLICATOR TOPICALLY 3X PER WEEK, # 120 mL, 3 Refills, [facility] [id number], 30, APPLY 1 APPLICATOR TOPICALLY 3X PER [...] a day,... Start Date: 12/17/20 Status: Ordered [place] 0.65% nasal spray 2 sprays, Nares, Both, [...] Mouth, 3 times a day, may fill 02/02/21 for 14 days, # 42 tablet, 0 Refills, Maintenance, 02/01/21 11:13:00 EST, Tablet, [facility]/pharmacy #[id number], Partial fill upon patient request if the prescription is for a schedule II opioid drug., 1... Start Date: 02/01/21 Stop Date: 02/15/21 Status: Ordered selenium sulfide 2.5% topical lotion [...] 1 Refills, Maintenance, 03/10/20 18:21:00 EST, Cream, [facility] 3, Partial fill upon patient [...] by Jazz Francois at [facility]. Client has no-showed to last appt and today.She will be targetted for closing if she does not responde to correspondence that will be sent on 02/14/13 Social History Social History Type Response Smoking Status 5-9 cigarettes (betw een 1/4 to 1/2 pack)/day in last 30 days entered on: 09/08/20 Sex
--- OUTSIDE RECORDS SUMMARY | 2022-11-03 10:43 | XMS_ITS | Continuity of Care Document ---
Author Name Unknown Organization [facility] Address [address] [place] [id number]- Care Team Providers Care Care Coordination Manager Name Role Phone Ilya De Leon MD Primary Care Physician Encounter [facility] [place](s): 09/03/20 - 10/06/20 [facility] [address] [place] [address]- Attending Physician: Justice Paez MD Admitting Physician: [...] [facility] Medications acetaminophen 500 mg oral tablet 2 tablet = 1,000 mg, By Mouth, 3 times a day, PRN as needed for fever, not to exceed 3000 mg/day take scheduled three times a day, # 100 tablet, 1 Refills, Acute 12/26/20 11:44:00 EDT, 09/24/20 11:43:00 EDT, Tablet, [facility]/pharmacy #[id number], Partial fill u... Start Date: 09/24/20 Stop [...] 11/06/18 8:33:38 EDT, Route to Pharmacy Electronically, [id number], [facility] Start Date: 11/06/18 Status: Ordered [...] Gm, 5 Refills, Maintenance, 07/07/19 17:30:00 EDT, [facility], 1 applicator Topically 2 times a [...] Gm, 0 Refills, Maintenance, 04/27/20 14:35:00 EST, [place], [facility], Partial fill upon [...] 3 Refills, Maintenance, 06/04/19 14:52:00 EDT, Cream, [facility], [...] 1 Refills, Maintenance, 03/10/20 18:21:00 EST, Cream, [facility], Partial fill upon [...] seen by Jazz Francois at [facility]. Client has no-showed to last appt and today.She will be targetted for closing if she does not responde to correspondence that will be sent on 02/14/13 Social History Social History Type Response Smoking Status 5-9 cigarettes (betw een 1/4 to 1/2 pack)/day in last 30 days entered on: 09/08/20 Sex
--- OUTSIDE RECORDS SUMMARY | 2022-11-03 10:43 | XMS_ITS | Continuity of Care Document ---
Author Name Unknown Organization [facility] Address Unknown Care Team Providers Care Angiography Nurse Name Role Phone Haley NEWMAN, Ilya Primary Care Physician Encounter [facility] Date(s): 07/25/21 - 08/24/21 [facility] Allergies, Adverse Reactions, Alerts Substance Reaction Severity Status penicillin Rash Active Reglan Agitated Active trimethoprim-sulfamethoxazole DS 1 Throa renu Hives 17-MAY-2013 07:29:57<$> Unknown Active Imitrex [...] [facility] Medications acetaminophen 650 mg oral tablet, extended release 2 tablet = 1,300 mg, By Mouth, Every 8 hours, # 100 tablet, 1 Refills, Maintenance, 06/29/21 15:10:00 EDT, ER Tablet, [facility]/pharmacy #[id number], Partial fill upon patient request if the prescription is for a schedule II opioid drug., 155, cm, 05/30/21 15:34:... Start Date: 06/29/21 Status: Ordered capsaicin 0.025% topical cream See Instructions, APPLY TO AFFECTED AREA TWICE A DAY, # 60 Gm, 1 Refills, [id number], 30, APPLY TO AFFECTED AREA TWICE A DAY, 155, cm, 05/30/21 15:34:00 EDT, Height, 95.9, kg, 12/05/20 10:08:00 EDT, Dry Weight Start Date: 05/31/21 Status: Ordered Cavilon Emollient topical cream 1 application, Topically, 2 times a day, PRN for dry skin, # 454 Gm, 1 Refills, Maintenance, 09/30/19 16:26:00 EDT, Cream, [facility], 1 application Topically 2 times a day,PRN:for dry skin, 158, cm, 08/27/19 13:02:00 EDT, Height, 76, kg... Start Date: 09/30/19 Status: Ordered clonazePAM 0.5 mg oral tablet 1 tablet = 0.5 mg, By Mouth, Daily, May fill 08/12/21, # 14 tablet, 0 Refills, Maintenance, 08/24/21 14:44:00 EDT, Tablet, [facility], STROBOROMA OPERATOR reviewed, covering for Dr. De Leon, 155, cm, 05/30/21 15:34:00 EDT, Height, 95.9, kg, 12/05/20... Start Date: 08/24/21 Stop Date: 09/07/21 Status: Ordered Dovonex 0.005% topical cream 1 applicator, Topically, 2 times a day, # 60 Gm, 5 Refills, Maintenance, 07/07/19 17:30:00 EDT, [facility], 1 applicator Topically 2 times a day,x30 days, 158, cm, 12/24/18 10:25:00 EDT, Height, 76, kg, 04/12/19 15:31:00 EST, Dry Weight Start Date: 07/07/19 Stop Date: 01/03/20 Status: Ordered fluticasone 50 mcg/inh nasal spray 1 sprays, Nares, Both, 2 times a day, in each nostril. for allergies, # 16 Gm, 0 Refills, Maintenance, 04/27/20 14:35:00 EST, [place], [facility], Partial fill upon patient [...] A DAY, # 50 Gm, 1 Refills, [id number], 30, APPLY A THIN FILM TO THE AFFECTED SKIN AND RUB IN GENTLY AND COMPLETELY TWICE A DAY, 155, cm, 12/05/20 10:0... Start Date: 03/15/21 Status: Ordered hydrocortisone 1% topical cream 1 application, Topically, 2 times a day, # 30 Gm, 0 Refills, Maintenance, 06/17/21 11:42:00 EDT, Cream, [facility] 3, Partial fill upon patient request if the prescription is for a schedule II opioid drug., 1 application Topically 2 times... Start Date: 06/17/21 Status: Ordered hydrOXYzine hydrochloride 25 mg oral tablet 1 capsule, By Mouth, 3 times a day, PRN for itching, for 30 days, # 90 capsule, 1 Refills, Acute 10/23/21 14:41:00 EDT, 08/24/21 14:41:00 EDT, Capsule, [facility], Partial fill upon patient request if the prescription is for a sche... Start Date: 08/24/21 Stop Date: 10/23/21 Status: Ordered ketoconazole 2% topical shampoo See Instructions, APPLY 1 APPLICATOR TOPICALLY 3X PER WEEK, # 120 mL, 3 Refills, [id number], 30, APPLY 1 APPLICATOR TOPICALLY 3X PER WEEK, 155, cm, 05/30/21 15:34:00 EDT, Height, 95.9, kg, 12/05/20 10:08:00 EDT, Dry Weight Start Date: 08/02/21 Status: Ordered loratadine 10 mg oral tablet 1, tablet, By Mouth, Daily, # 15 tablet, Refills 5, Tot. Refills 5, Maintenance, 08/19/21 9:15:00 EDT, [id number], 155, cm, 05/30/21 [...] Physician Stop 08/31/21 14:44:00 EDT,08/24/21 14:44:00 EDT, [facility], 155, cm, 05/30/21 15:34:00 EDT, [...] to Pharmacy Electronically, [id number], 155, cm, 05/03/21 14:39:00 EST, Height, 95.9, kg, 12/05/20 10:08:00 EDT, Dry Weight Start Date: 05/09/21 Status: Ordered traMADol 50 mg oral tablet 1 tablet = 50 mg, By Mouth, Every 12 hours, PRN Pain , Severe, for 7 days, # 14 tablet, 0 Refills, Acute 08/31/21 14:44:00 EDT, 08/24/21 14:44:00 EDT, Tablet, [facility], Partial fill upon patient request if the prescription is for... Start Date: 08/24/21 Stop Date: 08/31/21 Status: Ordered Problem List Condition Effective Dates Status Health Status Inform ant Anxiety(Confirmed) Active Opioid type dependence, continuous(Confirmed) 1 Active Osteoarthritis of left knee(Confirmed) Active Psoriasis(Confirmed) Active Severe obesity(Confirmed) Active 1Client had been seen by Jazz Francois at [facility]. Client has no-showed to last appt and today.She will be targetted for closing if she does not responde to correspondence that will be sent on 02/14/13 Social History Social History Type Response Smoking Status 10 or more cigarette s (1/2 pack or more)/day in last 30 days entered on: 04/18/21 Sex
--- OUTSIDE RECORDS SUMMARY | 2022-11-03 10:43 | XMS_ITS | Continuity of Care Document ---
Author Name Unknown Organization [facility] Address Unknown Care Team Providers Care Medical Appointment Scheduler Name Role Phone Ilya De Leon MD Primary Care Physician [place] [facility] [place] - 11/17/20 [facility] Attending Physician: Celsa Lyons Allergies, Adverse Reactions, [...] [facility] Medications acetaminophen 500 mg oral tablet 2 tablet = 1,000 mg, By Mouth, 3 times a day, PRN as needed for fever, not to exceed 3000 mg/day take scheduled three times a day, # 100 tablet, 1 Refills, Acute 12/26/20 11:44:00 EDT, 09/24/20 11:43:00 EDT, Tablet, [id number], Partial fill u... Start Date: 09/24/20 Stop [...] 0 Refills, Maintenance, 07/23/20 11:37:00 EDT, Tablet, [facility], Partial fill upon patient request if the prescription is for a schedule II... Start Date: 07/23/20 Stop Date: 08/22/20 Status: Ordered Claritin 10 mg oral tablet 10 mg, 1, tablet, By Mouth, Daily, # 15 tablet, Refills 3, Tot. Refills 3, Maintenance, 11/06/18 8:33:38 EDT, Route to Pharmacy Electronically, [id number], [facility] Start Date: 11/06/18 Status: Ordered clonazePAM 0.5 mg oral tablet 1 tablet = 0.5 mg, By Mouth, Daily, # 28 tablet, 0 Refills, Maintenance, 10/18/20 11:03:00 EDT, Tablet, [facility], Partial fill upon patient request if [...] 0 Refills, Maintenance, 07/16/20 15:11:00 EDT, Tablet, [facility], Partial fill upon patient request if [...] Gm, 0 Refills, Maintenance, 04/27/20 14:35:00 EST, [place], [facility] 3, Partial fill upon patient request if theprescription is for a schedule II opioid drug., 1... Start Date: 04/27/20 Stop Date: 05/27/20 Status: Ordered furosemide 20 mg oral tablet 1, tablet, By Mouth, Daily, # 30 tablet, Refills 3, Tot. Refills 0, Maintenance, 10/21/20 11:22:00 EDT, Route to Pharmacy Electronically, [id number], 158, cm, 10/18/20 10:46:00 EDT, Height, 95.4, kg, 10/16/20 10:11:00 EDT, Dry Weight Start Date: 10/21/20 Status: Ordered hydrocortisone 1% topical cream 1 application, Topically, 2 times a day, Apply to rash areas, # 60 Gm, 3 Refills, Maintenance, 06/04/19 14:52:00 EDT, Cream, [facility], 1 application Topically 2 [...] 11:39:00 EDT, 09/24/20 11:38:00 EDT, Ointment, [facility]/pharmacy #[id number], Partial fill upon patient [...] 0 Refills, Maintenance, 11/10/20 8:29:00 EDT, Tablet, [facility]/pharmacy #[id number], Partial fill upon patient request if the prescription is for a schedule II opioid drug., 158,... Start Date: 11/10/20 Stop Date: 11/24/20 Status: Ordered selenium sulfide 2.5% topical lotion See Instructions, APPLY TOPICALLY TO AFFECTED AREA EVERY DAY FOR 7 DAYS, # 120 mL, 3 Refills, Soft Stop, 07/23/20 11:40:00 EDT, [facility], 7, APPLY TOPICALLY TO AFFECTED AREA EVERY DAY FOR 7 DAYS, 158, cm, 07/23/20 11:13:00 EDT, H... Start Date: 07/23/20 Status: Ordered Shingrix intramuscular injection = 0.5 mL, Intramuscular, Once, repeat dose in 2 to 6 months, # 2 each, 0 Refills, Soft Stop, 05/27/20 11:03:00 EDT, Powder, [facility], Partial fill upon patient request if [...] 1 Refills, Maintenance, 03/10/20 18:21:00 EST, Cream, [facility], Partial fill upon patient [...] Refills, Maintenance, 09/24/20 11:47:00 EDT, Gel, [facility]/pharmacy #[id number], 1 application Topically 4 times a day,Instr:for knee pain, 158, cm, 09/24/20 10:45:00 EDT, Height, 82, kg, ... Start Date: 09/24/20 Status: Ordered Problem List Condition Effective Dates Status Health Status Inform ant Opioid type dependence, continuous(Confirmed) 1 Active 1Client had been seen by Jazz Francois at [facility]. Client has no-showed to last appt and today.She will be targetted for closing if she does not responde to correspondence that will be sent on 02/14/13 Social History Social History Type Response Smoking Status 5-9 cigarettes (betw een 1/4 to 1/2 pack)/day in last 30 days entered on: 09/08/20 Sex
--- OUTSIDE RECORDS SUMMARY | 2022-11-03 10:44 | XMS_ITS | Continuity of Care Document ---
Author Name Unknown Organization [facility] Address [address] [place] [address]- Care Team Providers Care Carpet Winder Name Role Phone Ilya De Leon MD Primary Care Physician [place] [facility] [place] 06/19/22 - 07/23/22 [facility]/[address] [address]- Attending Physician: Ilya De Leon MD Admitting [...] Maintenance, 06/29/21 15:10:00 EDT, ER Tablet, [id number], Partial fill upon patient request if the prescription is for a schedule II opioid drug., 155, cm, 05/30/21 15:34:... Start Date: 06/29/21 Status: Ordered capsaicin 0.025% topical cream See Instructions, APPLY TO AFFECTED AREA TWICE A DAY, # 60 Gm, 1 Refills, [facility], 30, APPLY TO AFFECTED AREA TWICE A DAY, 155, cm, 05/30/21 15:34:00 EDT, Height, 95.9, kg, 12/05/20 10:08:00 EDT, Dry Weight Start Date: 05/31/21 Status: Ordered Cavilon Emollient topical cream 1 application, Topically, 2 times a day, PRN for dry skin, # 454 Gm, 1 Refills, Maintenance, 09/30/19 16:26:00 EDT, Cream, [facility] 3, 1 application Topically 2 times a day,PRN:for dry skin, 158, cm, 08/27/19 13:02:00 EDT, Height, 76, kg... Start Date: 09/30/19 Status: Ordered clonazePAM 0.5 mg oral tablet 1 tablet = 0.5 mg, By Mouth, Daily at bedtime, May fill 05/26/22 and weekly on Fridays for 3 weeks, # 7 tablet, 2 Refills, Maintenance, 05/24/22 10:44:00 EDT, Tablet, [facility], COMPLIANCE TECHNICIAN reviewed, covering for Dr. De Leon, 155, cm, 01/10... Start Date: 05/24/22 Stop Date: 06/14/22 Status: Ordered clonazePAM 0.5 mg oral tablet 1 tablet = 0.5 mg, By Mouth, Daily at bedtime, May fill 04/14/22 and weekly on Fridays for3 weeks, # 7 tablet, 2 Refills, Maintenance, 04/13/22 10:13:00 EST, Tablet, [facility], PMPreviewed, covering for Dr. De Leon, 155, cm, 01/23/... Start Date: 04/13/22 Stop Date: 05/04/22 Status: Ordered clonazePAM 0.5 mg oral tablet 1 tablet = 0.5 mg, By Mouth, 2 times a day, Increaseddose May weekly on Fridays for 3 weeks starting on 07/21, # 14 tablet, 2 Refills, Maintenance, 07/19/22 12:38:00 EDT, Tablet, [facility], COMPLIANCE TECHNICIAN reviewed, covering for Dr. De Leon, 1... Start Date: 07/19/22 Stop Date: 08/09/22 Status: Ordered coal tar topical 1% lotion See Instructions, applyTopically Daily at bedtime, # 120 mL, 3 Refills, Maintenance, 10/26/21 15:45:00 EDT, [facility], Partial fill upon patient request if the prescription is for a schedule II opioid drug., applyTopically Daily a... Start Date: 10/26/21 Status: Ordered Dovonex 0.005% topical cream 1 applicator, Topically, 2 times a day, # 60 Gm, 5 Refills, Maintenance, 05/24/22 12:41:00 EDT, [facility], 1 applicator Topically 2 times a day,x30 days, 155, cm, 01/23/22 14:00:00 EST, Height, 106.5, kg, 09/14/21 9:38:00 EDT, Dry... Start Date: 05/24/22 Stop Date: 11/20/22 Status: Ordered Eucerin Unscented topical lotion See Instructions, apply as frequently as needed, # 1 each, 0 Refills, Maintenance, 09/28/21 12:23:00 EDT, [facility], Partial fill upon patient request if the prescription is for a schedule II opioid drug., apply as frequently as n... Start Date: 09/28/21 Status: Ordered fluticasone 50 mcg/inh nasal spray 1 sprays, Nares, Both, 2 times a day, in each nostril. for allergies, # 16 Gm, 0 Refills, Maintenance, 04/27/20 14:35:00 EST, [place], [facility] upon patient request if theprescription is for a schedule II opioid drug., 1... Start Date: 04/27/20 Stop Date: 05/27/20 Status: Ordered halobetasol 0.05% topical ointment See Instructions, APPLY A THIN FILM TO THE AFFECTED SKIN AND RUB IN GENTLY AND COMPLETELY TWICE A DAY, # 50 Gm, 1 Refills, Maintenance, 07/17/22 10:18:00 EDT, [facility], 30, APPLY A THIN FILM TO THE AFFECTED SKIN AND RUB IN GENTLY... Start Date: 07/17/22 Status: Ordered ketoconazole 2% topical shampoo See Instructions, APPLY 1 APPLICATOR TOPICALLY 3X PER WEEK, # 120 mL, 3 Refills, Maintenance, 05/16/22 8:48:00 EST, [id number], 30, APPLY 1 APPLICATOR TOPICALLY 3X PER WEEK, 155, cm, 01/23/22 14:00:00 EST, Height, 106.5, kg, 09/14/21 9:38:00 EDT,... Start Date: 05/16/22 Status: Ordered loratadine 10 mg oral tablet 1, tablet, By Mouth, Daily, # 30 tablet, Refills 5, Tot. Refills 5, Maintenance, 07/04/22 8:39:00 EDT, [id number] 155, cm, 01/23/22 14:00:00 EST, Height, 106.5, kg, 09/14/21 9:38:00 EDT, Dry Weight Start Date: 07/04/22 Status: Ordered Methadone By Mouth, 0 Refills, Maintenance Start Date: 12/25/11 Status: Ordered mupirocin 2% topical cream 1 application, Topically, 3 times a day, # 30 Gm, 2 Refills, Maintenance, 03/08/21 10:26:00 EST, Cream, [id number] Partial fill upon patient request if the prescription is for a schedule II opioid drug., 1 application Topically 3 times a day,... Start Date: 03/08/21 Status: Ordered permethrin 5% topical cream 1 application, Topically, Once, to skin head to feet, remove by washing after 8 to 14 hours, # 60 Gm, 0 Refills, Soft Stop, 07/27/20 11:50:00 EDT, Cream, [facility], 1 applicationTopically Once,Instr:to skin head to feet, remove b... Start Date: 07/27/20 Status: Ordered predniSONE 10 mg oral tablet See Instructions, May fill 06/16/22 and weekly on Fridays for 3 weeks, # 14 tablet, 2 Refills, 07/04/22 13:28:00 EDT, [facility], 155, cm, 01/23/22 14:00:00 EST, Height, 106.5, kg, 09/14/21 9:38:00 EDT, Dry Weight Start Date: 07/04/22 Status: Ordered predniSONE 10 mg oral tablet See Instructions, May fill 05/26/22 and weekly on Fridays for 3 weeks, # 14 tablet, 2 Refills, 05/24/22 10:44:00 EDT, [facility], 155, cm, 01/23/22 14:00:00 EST, Height, 106.5, kg,09/14/21 9:38:00 EDT, Dry Weight Start Date: 05/24/22 Status: Ordered predniSONE 5 mg oral tablet See Instructions, latest dosage 15 mg daily, now to take 5mg tablet, 3 daily. May fill Fridays starting 07/21/22, # 21 tablet, 2 Refills, Maintenance, 07/19/22 12:40:00 EDT, [facility], Partial fill upon patient request if the presc... Start Date: 07/19/22 Status: Ordered selenium sulfide 2.5% topical lotion See Instructions, APPLY TOPICALLY TO AFFECTED AREA EVERY DAY FOR 7 DAYS, # 120 mL, 3 Refills, Soft Stop, 10/26/21 15:43:00 EDT, [facility], 7, APPLY TOPICALLY TO AFFECTED AREA EVERY DAY FOR 7 DAYS, 155, cm, 09/28/21 12:06:00 EDT, H... Start Date: 10/26/21 Status: Ordered tiZANidine 2 mg oral tablet 1, tablet, By Mouth, 3 times a day, # 60 tablet, Refills 0, Route to Pharmacy Electronically, [id number], 155, cm, 05/03/21 14:39:00 EST, Height, 95.9, kg, 12/05/20 10:08:00 EDT, Dry Weight Start Date: 05/09/21 Status: Ordered traMADol 50 mg oral tablet 1 tablet = 50 mg, By Mouth, Every 8 hours, PRN Pain , Severe, for 7 days, May fill 07/21/22 and weekly on Fridays for 3 weeks, # 21 tablet, 2 Refills, Acute 08/09/22 12:38:00 EDT, 07/19/22 12:38:00 EDT, Tablet, [facility], Partial... Start Date: 07/19/22 Stop Date: 08/09/22 [...] Personnel Name: Ilya De Leon MD Position: [facility] Primary Care Physician Member Role: PCP Address: Address: [address] [place] [address]- Care Team Related Persons Name: JD ALVAREZ Address: home [address] [place] [id number]
--- OUTSIDE RECORDS SUMMARY | 2022-11-03 10:44 | XMS_ITS | Continuity of Care Document ---
Author Name Unknown Organization [facility] Address [address] [place] [address]- Care Team Providers Care Agricultural Inspector Name Role Phone Ilya De Leon MD Primary Care Physician Encounter [facility] Date(s): 08/21/22 - 09/20/22 [facility]/[address] [address]- [place] Allergies, Adverse Reactions, Alerts Substance Reaction [...] 02/06/10 Garrett rded 1Admin Note: ADMIN BY [facility] 2Admin Note: FLUVIRIN MULTIDOSE ADMINISTERED AT [facility] Medications acetaminophen 650 mg oral tablet, extended release 2 tablet = 1,300 mg, By Mouth, Every 8 hours, # 100 tablet, 1 Refills, Maintenance, 06/29/21 15:10:00 EDT, ER Tablet, [id number], Partial fill upon patient request if the prescription is for a schedule II opioid drug., 155, cm, 05/30/21 15:34:... Start Date: 06/29/21 Status: Ordered Cavilon Emollient topical cream 1 application, Topically, 2 times a day, PRN for dry skin, # 454 Gm, 1 Refills, Maintenance, 09/30/19 16:26:00 EDT, Cream, [facility] 3, 1 application Topically 2 times a day,PRN:for dry skin, 158, cm, 08/27/19 13:02:00 EDT, Height, 76, kg... Start Date: 09/30/19 Status: Ordered Cavilon Emollient topical cream 1 application, Topically, 2 times a day, PRN for dry skin, # 454 Gm, 3 Refills, Maintenance, 09/19/22 11:12:00 EDT, Cream, [facility], 1 application Topically 2 times a [...] 3 Refills, Maintenance, 09/06/22 14:07:00 EDT, Tablet, [facility], RECRUITING TEAM LEAD reviewed, covering for Dr. De Leon, 1... Start Date: 09/06/22 Stop Date: 10/04/22 Status: Ordered clonazePAM 0.5 mg oral tablet 1 tablet = 0.5 mg, By Mouth, 2 times a day, Increaseddose July weekly on Fridays for 3 weeks starting on 07/21, # 14 tablet, 2 Refills, Maintenance, 07/19/22 12:38:00 EDT, Tablet, [facility], RECRUITING TEAM LEAD reviewed, covering for Dr. De Leon, 1... Start Date: 07/19/22 Stop Date: 08/09/22 Status: Ordered Dovonex 0.005% topical cream 1 applicator, Topically, 2 times a day, # 60 Gm, 5 Refills, Maintenance, 05/24/22 12:41:00 EDT, [facility], 1 applicator Topically 2 times a day,x30 days, 155, cm, 01/23/22 14:00:00 EST, Height, 106.5, kg, 09/14/21 9:38:00 EDT, Dry... Start Date: 05/24/22 Stop Date: 11/20/22 Status: Ordered Eucerin Unscented topical lotion See Instructions, apply as frequently as needed, # 1 each, 3 Refills, Maintenance, 09/19/22 11:12:00 EDT, [facility], Partial fill upon patient request if the prescription is for a schedule II opioid drug., apply as frequently as n... Start Date: 09/19/22 Status: Ordered Eucerin Unscented topical lotion See Instructions, apply as frequently as needed, # 1 each, 0 Refills, Maintenance, 09/28/21 12:23:00 EDT, [facility], Partial fill upon patient request if the prescription is for a schedule II opioid drug., apply as frequently as n... Start Date: 09/28/21 Status: Ordered fluticasone 50 mcg/inh nasal spray 1 sprays, Nares, Both, 2 times a day, in each nostril. for allergies, # 16 Gm, 0 Refills, Maintenance, 04/27/20 14:35:00 EST, [place], [facility] 3, Partial fill upon patient request if theprescription is for a schedule II opioid drug., 1... Start Date: 04/27/20 Stop Date: 05/27/20 Status: Ordered halobetasol 0.05% topical ointment See Instructions, APPLY A THIN FILM TO THE AFFECTED SKIN AND RUB IN GENTLY AND COMPLETELY TWICE A DAY, # 50 Gm, 0 Refills, Maintenance, 09/12/22 13:49:00 EDT, [facility]/pharmacy #[id number], 30, APPLY A THIN FILM TO THE AFFECTED SKIN AND RUB IN GENTLY AND COMPLET... Start Date: 09/12/22 Status: Ordered halobetasol 0.05% topical ointment See Instructions, APPLY A THIN FILM TO THE AFFECTED SKIN AND RUB IN GENTLY AND COMPLETELY TWICE A DAY, # 50 Gm, 3 Refills, Maintenance, 09/19/22 11:12:00 EDT, [facility], 30, APPLY A THIN FILM TO THE AFFECTED SKIN AND RUB IN GENTLY... Start Date: 09/19/22 Status: Ordered ketoconazole 2% topical shampoo See Instructions, APPLY 1 APPLICATOR TOPICALLY 3X PER WEEK, # 120 mL, 3 Refills, Maintenance, 05/16/22 8:48:00 EST, [id number], 30, APPLY 1 APPLICATOR TOPICALLY 3X PER WEEK, 155, cm, 01/23/22 14:00:00 EST, Height, 106.5, kg, 09/14/21 9:38:00 EDT,... Start Date: 05/16/22 Status: Ordered loratadine 10 mg oral tablet 1, tablet, By Mouth, Daily, # 30 tablet, Refills 5, Tot. Refills 5, Maintenance, 07/04/22 8:39:00 EDT, Route to Pharmacy Electronically, [facility]/pharmacy #[id number], 155, cm, 01/23/22 14:00:00 EST, Height, 106.5, kg, 09/14/21 9:38:00 EDT, Dry Weight Start Date: 07/04/22 Status: Ordered Methadone By Mouth, 0 Refills, Maintenance Start Date: 12/25/11 Status: Ordered mupirocin 2% topical cream 1 application, Topically, 3 times a day, # 30 Gm, 2 Refills, Maintenance, 03/08/21 10:26:00 EST, Cream, [facility]/pharmacy #[id number], Partial fill upon [...] Soft Stop, 07/27/20 11:50:00 EDT, Cream, [facility], 1 applicationTopically Once,Instr:to skin head to feet, remove b... Start Date: 07/27/20 Status: Ordered predniSONE 5 mg oral tablet See Instructions, Starting next refill increase to 4 tablets daily, # 28 tablet, 3 Refills, Maintenance, 09/19/22 11:07:00 EDT, [facility], Partial fill upon patient request if the prescription is for a schedule II opioid drug., 15... Start Date: 09/19/22 Status: Ordered selenium sulfide 2.5% topical lotion See Instructions, APPLY TOPICALLY TO AFFECTED AREA EVERY DAY FOR 7 DAYS, # 120 mL, 3 Refills, Soft Stop, 10/26/21 15:43:00 EDT, [facility], 7, APPLY TOPICALLY TO AFFECTED AREA EVERY DAY FOR 7 DAYS, 155, cm, 09/28/21 12:06:00 EDT, H... Start Date: 10/26/21 Status: Ordered simvastatin 20 mg oral tablet 20 mg, 1, tablet, By Mouth, Daily at bedtime, for cholesterol, # 30 tablet, Refills 5, Tot. Refills5, Maintenance, 07/24/22 13:12:00 EDT, Route to Pharmacy Electronically, [facility]/pharmacy #[id number], Partial fill upon patient request if the prescription is f... Start Date: 07/24/22 Status: Ordered traMADol 50 mg oral tablet 1 tablet = 50 mg, By Mouth, Every 8 hours, PRN Pain , Severe, for 7 days, 4May fill 08/11/22 and weekly on Fridays for 4 weeks, # 21 tablet, 3 Refills, Acute 10/06/22 8:49:00 EDT, 09/08/22 8:49:00 EDT,Tablet, [facility], Partial fi... Start Date: 09/08/22 Stop [...] De Leon MD Position: [facility] Physician - Primary Care Member Role: PCP Address: Address: [address] [place] [id number]- Care Team Related Persons Name: JD ALVAREZ Address: home [address] [place] [id number]
--- OUTSIDE RECORDS SUMMARY | 2022-11-03 10:44 | XMS_ITS | Continuity of Care Document ---
Author Name Unknown Organization [facility] Address [address] [place] [id number]- Care Team Providers Care Religion Instructor Name Role Phone Ilya De Leon MD Primary Care Physician [place] [facility]13[place] - 08/14/20 [facility]/[address] [address]- Attending Physician: Carmen Brown MD Admitting Physician: Carmen Brown MD Allergies, Adverse Reactions, Alerts Substance Reaction Severity Status penicillin Rash Active morphine HAND SWELLING Active Motrin tight throat Rash Active Imitrex Chest pain Active Reglan Agitated Active aspirin Ibuprofen tight throat Rash Active [...] 01/30/11 Gi lizbeth 1Admin Note: ADMIN BY [employer] 2Admin Note: FLUVIRIN MULTIDOSE ADMINISTERED AT [facility] Medications Cavilon Emollient topical cream [...] 11/06/18 8:33:38 EDT, Route to Pharmacy Electronically, [id number], [facility] Start Date: 11/06/18 Status: Ordered diphenhydrAMINE 25 [...] Gm, 0 Refills, Maintenance, 04/27/20 14:35:00 EST, [place], [facility] 3, Partial fill upon patient [...] 0 Refills, Soft Stop, 08/06/20 11:18:00 EDT, [facility] 3, 158, cm, 07/23/20 11:13:00 EDT... Start Date: 08/06/20 Status: Ordered Methadone By Mouth, 0 Refills, Maintenance Start Date: 12/25/11 Status: Ordered mupirocin 2% topical ointment 1 application, Topically, 3 times a day, for 7 days, For lesion on right upper arm, # 22 Gm, 0 Refills, Acute 08/19/20 12:30:00 EDT, 08/12/20 12:30:00 EDT, [facility]/pharmacy #[id number], Partial fill upon patient request if the prescription is for a schedule II... Start Date: 08/12/20 Stop Date: 08/19/20 Status: Ordered Nizoral 2% topical shampoo See Instructions, 1 applicator Topically 3x per week, # 120 mL, 3 Refills, Soft Stop, 08/12/20 10:30:00 EDT, [facility]/pharmacy #[id number], 1 applicator Topically 3x per [...] tablet, 0 Refills, Maintenance, 08/12/20 10:30:00 EDT, [facility]/pharmacy #[id number], Partial fill upon patient [...]
--- OUTSIDE RECORDS SUMMARY | 2022-11-03 10:44 | XMS_ITS | Continuity of Care Document ---
Author Name Unknown Organization [facility] Address Unknown Care Team Providers Care Middleware Consultant Name Role Phone Ilya De Leon MD Primary Care Physician Encounter [facility] Date(s): 03/22/21 - 04/21/21 [facility] Allergies, Adverse Reactions, Alerts Substance Reaction Severity Status penicillin Rash Active morphine HAND SWELLING Active Compazine throat swells Active trimethoprim-sulfamethoxazole DS 1 Carolyn sears Hives 17-MAY-2013 07:29:57<$> Unknown Active Imitrex Chest pain Active aspirin Ibuprofen tight throat Rash Active Toradol Rash Active Motrin tight throat Rash Active Reglan Agitated Active dehydroepiandrosterone 2 [...] FLUVIRIN MULTIDOSE ADMINISTERED AT [facility] Medications capsaicin 0.025% topical cream See Instructions, APPLY TO AFFECTED AREA TWICE A DAY, # 60 Gm, 1 Refills, [id number], 30, APPLY TO AFFECTED AREA TWICE A DAY, 155, cm, 04/08/21 11:33:00 EST, Height, 95.9, kg, 12/05/20 10:08:00 EDT, Dry Weight Start Date: 04/17/21 Status: Ordered Cavilon Emollient topical cream 1 application, Topically, 2 times a day, PRN for dry skin, # 454 Gm, 1 Refills, Maintenance, 09/30/19 16:26:00 EDT, Cream, [facility] 3, 1 application Topically 2 times a day,PRN:for dry skin, 158, cm, 08/27/19 13:02:00 EDT, Height, 76, kg... Start Date: 09/30/19 Status: Ordered cetirizine 10 mg oral tablet 1 tablet = 10 mg, By Mouth, Daily, # 30 tablet, 0 Refills, Maintenance, 12/03/20 13:44:00 EDT, Tablet, [facility]/pharmacy #[id number], Partial fill upon patient request if the prescription is for a schedule II opioid drug., 158, cm, 12/03/20 13:27:00 EDT, Height,... Start Date: 12/03/20 Status: Ordered Claritin 10 mg oral tablet 10 mg, 1, tablet, By Mouth, Daily, # 15 tablet, Refills 3, Tot. Refills 3, Maintenance, 11/06/18 8:33:38 EDT, Route to Pharmacy Electronically, [id number], [facility] Start Date: 11/06/18 Status: Ordered clindamycin 1% topical gel 1 application, Topically, 2 times a day, # 30 Gm, 0 Refills, Maintenance, 04/08/21 12:14:00 EST, Gel, [facility], Partial fill upon patient request if the prescription is for a schedule II opioid drug., 1 application Topically 2 ti... Start Date: 04/08/21 Status: Ordered clindamycin 150 mg oral capsule See Instructions, 3 capsultes 3 times a day, # 45 capsule, 0 Refills, Acute 01/20/22 14:53:00 EST, 03/17/21 14:50:00 EST, Capsule, [facility], Partial fill upon patient request ifthe prescription is for a schedule II opioid drug.,... Start Date: 03/17/21 Stop Date: 01/20/22 Status: Ordered clonazePAM 0.5 mg oral tablet 1 tablet = 0.5 mg, By Mouth, Daily, AUTO CUSTOMIZE PAINTER checked, # 14 tablet, 0 Refills, Maintenance, 04/18/21 12:09:00 EST, Tablet, [facility]/pharmacy #[id number], Partial fill upon patient [...] Gm, 5 Refills, Maintenance, 07/07/19 17:30:00 EDT, [facility] 3, 1 applicator Topically 2 [...] Gm, 0 Refills, Maintenance, 04/27/20 14:35:00 EST, [place], [facility] 3, Partial fill upon patient request if theprescription is for a schedule II opioid drug., 1... Start Date: 04/27/20 Stop Date: 05/27/20 Status: Ordered furosemide 20 mg oral tablet 1, tablet, By Mouth, Daily, # 30 tablet, Refills 3, Tot. Refills 3, Maintenance, 04/18/21 12:11:00 EST, Route to Pharmacy Electronically, [facility]/pharmacy #[id number], 155, cm, 04/18/21 10:12:00 [...] A DAY, # 50 Gm, 1 Refills, [facility] [id number], 30, APPLY A THIN FILM TO THE AFFECTED SKIN AND RUB IN GENTLY AND COMPLETELY TWICE A DAY, 155, cm, 12/05/20 10:0... Start Date: 03/15/21 Status: Ordered hydrocortisone 1% topical cream 1 application, Topically, 2 times a day, Apply to rash areas, # 60 Gm, 3 Refills, Maintenance, 06/04/19 14:52:00 EDT, Cream, [facility] 3, 1 application Topically 2 times a day,Instr:Apply to rash areas, 158, cm, 12/24/18 10:25:00 EDT, Hei... Start Date: 06/04/19 Status: Ordered ketoconazole 2% topical shampoo See Instructions, APPLY 1 APPLICATOR TOPICALLY 3X PER WEEK, # 120 mL, 3 Refills, [id number], 30, APPLY 1 APPLICATOR TOPICALLY 3X PER [...] Maintenance, 03/08/21 10:26:00 EST, Cream, [facility]/pharmacy #[id number], Partial fill upon patient request if the prescription is for a schedule II opioid drug., 1 application Topically 3 times a day,... Start Date: 03/08/21 Status: Ordered Porter 0.65% nasal spray 2 sprays, Nares, Both, 4 times a day, # 1 each, 0 Refills, Maintenance, 12/03/20 13:46:00 EDT, [facility]/pharmacy #[id number], Partial fill upon patient [...] Soft Stop, 07/27/20 11:50:00 EDT, Cream, [facility], 1 applicationTopically Once,Instr:to skin head to feet, remove b... Start Date: 07/27/20 Status: Ordered predniSONE 10 mg oral tablet 1 tablet = 10 mg, By Mouth, Daily, # 14 tablet, 0 Refills, Maintenance, 04/18/21 12:08:00 EST, [facility]/pharmacy #[id number], Partial fill upon patient request if the prescription is for a schedule II opioid drug., 155, cm, 04/18/21 10:12:00 EST, Height, 95.9, k... Start Date: 04/18/21 Stop Date: 05/02/21 Status: Ordered selenium sulfide 2.5% topical lotion See Instructions, APPLY TOPICALLY TO AFFECTED AREA EVERY DAY FOR 7 DAYS, # 120 mL, 3 Refills, Soft Stop, 03/08/21 10:26:00 EST, [facility]/pharmacy #[id number], 7, APPLY TOPICALLY TO AFFECTED [...] 1 Refills, Maintenance, 03/10/20 18:21:00 EST, Cream, [facility], Partial fill upon patient request if the prescription is fora schedule II opioid drug., 1 application Topically... Start Date: 03/10/20 Status: Ordered tiZANidine 2 mg oral tablet 2 mg, 1, tablet, By Mouth, 3 times a day, for 30 days, # 90 tablet, Refills 0, Tot. Refills 0, Acute 05/08/21 12:19:00 EST, 04/08/21 12:19:00 EST, Route to Pharmacy Electronically, [facility], Partial fill upon patient request if t... Start Date: 04/08/21 Stop Date: 05/08/21 Status: Ordered Valium 5 mg oral tablet 5 mg, 1, tablet, By Mouth, Daily at bedtime, PRN, # 3 tablet, Refills 0, Tot. Refills 0, Maintenance, Spasm, 04/03/21 11:16:00 EST, Route to Pharmacy Electronically, [facility], Partialfill upon patient request if the prescription is fo... Start Date: 04/03/21 Status: Ordered Problem List Condition Effective Dates Status Health Status Inform ant Anxiety(Confirmed) Active Opioid type dependence, continuous(Confirmed) 1 Active Osteoarthritis of left knee(Confirmed) Active Psoriasis(Confirmed) Active Severe obesity(Confirmed) Active 1Client had been seen by Jazz Francois at [facility]. Client has no-showed to last appt and today.She will be targetted for closing if she does not responde to correspondence that will be sent on 02/14/13 Social History Social History Type Response Smoking Status 10 or more cigarette s (1/2 pack or more)/day in last 30 days entered on: 04/18/21 Sex
--- OUTSIDE RECORDS SUMMARY | 2022-11-03 10:44 | XMS_ITS | Continuity of Care Document ---
Author Name Unknown Organization [facility] Address [address] [place] [address]- Care Team Providers Care Medical Coder Name Role Phone Ilya De Leon MD Primary Care Physician En[place] [facility] [place](s): 08/05/20 - 09/04/20 [facility]/[address] [address]- Allergies, Adverse Reactions, Alerts Substance Reaction Severity [...] 1 Refills, Maintenance, 09/30/19 16:26:00 EDT, Cream, [facility], 1 application Topically 2 times a day,PRN:for dry skin, 158, cm, 08/27/19 13:02:00 EDT, Height, 76, kg... Start Date: 09/30/19 Status: Ordered cetirizine 10 mg oral tablet 1 tablet = 10 mg, By Mouth, Daily, for allergies. Do NOT take with claritin, # 30 tablet, 0 Refills, Maintenance, 07/23/20 11:37:00 EDT, Tablet, [facility], Partial fill upon patient request if the prescription is for a schedule II... Start Date: 07/23/20 Stop Date: 08/22/20 Status: Ordered Claritin 10 mg oral tablet 10 mg, 1, tablet, By Mouth, Daily, # 15 tablet, Refills 3, Tot. Refills 3, Maintenance, 11/06/18 8:33:38 EDT, Route to Pharmacy Electronically, [id number], [facility] Start Date: 11/06/18 Status: Ordered clonazePAM 0.5 mg oral tablet 1 tablet = 0.5 mg, By Mouth, Daily, # 28 tablet, 0 Refills, Maintenance, 08/26/20 14:39:00 EDT, Tablet, [facility], Partial fill upon patient request if the prescription is for a schedule II opioid drug., 158, cm, 08/26/20 14:27:00... Start Date: 08/26/20 Status: Ordered diphenhydrAMINE 25 mg oral tablet 1 tablet = 25 mg, By Mouth, 3 times a day, PRN as needed for itching, Will cause drowsiness, # 30 tablet, 0 Refills, Maintenance, 07/16/20 15:11:00 EDT, Tablet, [facility], Partial fill upon patient request if the prescription is f... Start Date: 07/16/20 Status: Ordered Dovonex 0.005% topical cream 1 applicator, Topically, 2 times a day, # 60 Gm, 5 Refills, Maintenance, 07/07/19 17:30:00 EDT, [facility] 3, 1 applicator Topically 2 times [...] Gm, 0 Refills, Maintenance, 04/27/20 14:35:00 EST, [place], [facility], Partial fill upon patient request if theprescription is for a schedule II opioid drug., 1... Start Date: 04/27/20 Stop Date: 05/27/20 Status: Ordered furosemide 20 mg oral tablet 20 mg, 1, tablet, By Mouth, Daily, # 30 tablet, Refills 1, Tot. Refills 1, Maintenance, 08/27/20 16:12:00 EDT, Route to Pharmacy Electronically, [facility]/pharmacy #[id number], Partial fill upon patient request if the prescription is for a schedule II opioid drug... Start Date: 08/27/20 Status: Ordered halobetasol 0.05% topical cream 1 application, Topically, 2 times a day, # 50 Gm, 3 Refills, Maintenance, 08/02/20 12:54:00 EDT, Cream, [facility], Partial fill upon patient request if the prescription is for a schedule II opioid drug., 1 application Topically 2... Start Date: 08/02/20 Status: Ordered hydrocortisone 1% topical cream 1 application, Topically, 2 times a day, Apply to rash areas, # 60 Gm, 3 Refills, Maintenance, 06/04/19 14:52:00 EDT, Cream, [facility] 3, 1 application Topically 2 times [...] 3 Refills, Soft Stop, 08/12/20 10:30:00 EDT, [facility]/pharmacy #[id number], 1 applicator Topically 3x per week, 158, cm, 07/23/20 11:13:00 EDT, Height, 82, kg, 07/21/20 20:18:00 EDT, Dry Weight Start Date: 08/12/20 Status: Ordered permethrin 5% topical cream 1 application, Topically, Once, to skin head to feet, remove by washing after 8 to 14 hours, # 60 Gm, 0 Refills, Soft Stop, 07/27/20 11:50:00 EDT, Cream, [facility], 1 applicationTopically Once,Instr:to skin head to feet, remove b... Start Date: 07/27/20 Status: Ordered predniSONE 10 mg oral tablet See Instructions, 1 tablet daily, # 28 tablet, 0 Refills, Maintenance, 08/26/20 14:32:00 EDT, [facility], Partial fill upon patient request if the prescription is for a schedule II opioid drug., 158, cm, 08/26/20 14:27:00 EDT, [place]... Start Date: 08/26/20 Status: Ordered selenium sulfide 2.5% topical lotion See Instructions, APPLY TOPICALLY TO AFFECTED AREA EVERY DAY FOR 7 DAYS, # 120 mL, 3 Refills, Soft Stop, 07/23/20 11:40:00 EDT, [facility], 7, APPLY TOPICALLY TO AFFECTED AREA EVERY DAY FOR 7 DAYS, 158, cm, 07/23/20 11:13:00 EDT, H... Start Date: 07/23/20 Status: Ordered Shingrix intramuscular injection = 0.5 mL, Intramuscular, Once, repeat dose in 2 to 6 months, # 2 each, 0 Refills, Soft Stop, 05/27/20 11:03:00 EDT, Powder, [facility], Partial fill upon patient request [...] 1 Refills, Maintenance, 03/10/20 18:21:00 EST, Cream, [facility] 3, Partial fill upon patient request [...] Maintenance, 07/23/20 11:37:00 EDT, Gel, [facility], 1 application Topically 4 times [...]
--- OUTSIDE RECORDS SUMMARY | 2022-11-03 10:44 | XMS_ITS | Continuity of Care Document ---
Author Name Unknown Organization [facility] Address [address] [place] [address]- Care Team Providers Care Supervisor Crack Off Name Role Phone Ilya De Leon MD Primary Care Physician Encounter [facility] [place] [place] Date(s): 01/18/22 - 02/17/22 [facility]/[address] [address]- [place] Allergies, Adverse Reactions, Alerts Substance Reaction [...] Refills, Maintenance, 06/29/21 15:10:00 EDT, ER Tablet, [facility]/pharmacy #[id number], Partial fill upon patient request if the prescription is for a schedule II opioid drug., 155, cm, 05/30/21 15:34:... Start Date: 06/29/21 Status: Ordered capsaicin 0.025% topical cream See Instructions, APPLY TO AFFECTED AREA TWICE A DAY, # 60 Gm, 1 Refills, [id number], 30, APPLY TO AFFECTED AREA TWICE A DAY, 155, cm, 05/30/21 15:34:00 EDT, Height, 95.9, kg, 12/05/20 10:08:00 EDT, Dry Weight Start Date: 05/31/21 Status: Ordered Cavilon Emollient topical cream 1 application, Topically, 2 times a day, PRN for dry skin, # 454 Gm, 1 Refills, Maintenance, 09/30/19 16:26:00 EDT, Cream, [facility], 1 application Topically 2 times a day,PRN:for dry skin, 158, cm, 08/27/19 13:02:00 EDT, Height, 76, kg... Start Date: 09/30/19 Status: Ordered clonazePAM 0.5 mg oral tablet 1 tablet = 0.5 mg, By Mouth, Daily at bedtime, May fill 02/10/22 and weekly on Fridays for3 weeks, #7 tablet, 2 Refills, Maintenance, 02/07/22 15:55:00 EST, Tablet, [facility], STRIP CLEANER reviewed, covering for Dr. De Leon, 155, cm, 01/23... Start Date: 02/07/22 Stop Date: 02/28/22 Status: Ordered coal tar topical 1% lotion See Instructions, applyTopically Daily at bedtime, # 120 mL, 3 Refills, Maintenance, 10/26/21 15:45:00 EDT, [facility], Partial fill upon patient request if the prescription is for a schedule II opioid drug., applyTopically Daily a... Start Date: 10/26/21 Status: Ordered Dovonex 0.005% topical cream 1 applicator, Topically, 2 times a day, # 60 Gm, 5 Refills, Maintenance, 07/07/19 17:30:00 EDT, [facility], 1 applicator Topically 2 times a day,x30 days, 158, cm, 12/24/18 10:25:00 EDT, Height, 76, kg, 04/12/19 15:31:00 EST, Dry Weight Start Date: 07/07/19 Stop Date: 01/03/20 Status: Ordered Eucerin Unscented topical lotion See Instructions, apply as frequently as needed, # 1 each, 0 Refills, Maintenance, 09/28/21 12:23:00 EDT, [facility], Partial fill upon patient request if the prescription is for a schedule II opioid drug., apply as frequently as n... Start Date: 09/28/21 Status: Ordered fluticasone 50 mcg/inh nasal spray 1 sprays, Nares, Both, 2 times a day, in each nostril. for allergies, # 16 Gm, 0 Refills, Maintenance, 04/27/20 14:35:00 EST, [place], [facility] 3, Partial fill upon patient request if theprescription is for a schedule II opioid drug., 1... Start Date: 04/27/20 Stop Date: 05/27/20 Status: Ordered halobetasol 0.05% topical ointment See Instructions, APPLY A THIN FILM TO THE AFFECTED SKIN AND RUB IN GENTLY AND COMPLETELY TWICE A DAY, # 50 Gm, 1 Refills, Maintenance, 10/26/21 15:44:00 EDT, [facility], 30, APPLY A THIN FILM TO THE AFFECTED SKIN AND RUB IN GENTLY... Start Date: 10/26/21 Status: Ordered ketoconazole 2% topical shampoo See Instructions, APPLY 1 APPLICATOR TOPICALLY 3X PER WEEK, # 120 mL, 3 Refills, Maintenance, 12/27/21 19:30:00 EDT, [facility] STORE [id number], 30, APPLY 1 APPLICATOR TOPICALLY 3X PER WEEK, 155, cm, 12/12/21 16:00:00 EDT, Height, 106.5, kg, 09/14/21 9:38:00 EDT... Start Date: 12/27/21 Status: Ordered loratadine 10 mg oral tablet 1, tablet, By Mouth, Daily, # 90 tablet, Refills 1, Tot. Refills 1, Maintenance, 11/01/21 15:19:00 EDT, Route to Pharmacy Electronically, [facility]/pharmacy #[id number], 155, cm, 09/28/21 12:06:00 EDT, Height, 106.5, kg, 09/14/21 9:38:00 EDT, Dry Weight Start Date: 11/01/21 Status: Ordered Methadone By Mouth, 0 Refills, Maintenance Start Date: 12/25/11 Status: Ordered mupirocin 2% topical cream 1 application, Topically, 3 times a day, # 30 Gm, 2 Refills, Maintenance, 03/08/21 10:26:00 EST, Cream, [facility]/pharmacy #[id number], Partial fill upon patient request if the prescription is for a schedule II opioid drug., 1 application Topically 3 times a day,... Start Date: 03/08/21 Status: Ordered permethrin 5% topical cream 1 application, Topically, Once, to skin head to feet, remove by washing after 8 to 14 hours, # 60 Gm, 0 Refills, Soft Stop, 07/27/20 11:50:00 EDT, Cream, [facility], 1 applicationTopically Once,Instr:to skin head to feet, remove b... Start Date: 07/27/20 Status: Ordered predniSONE 10 mg oral tablet See Instructions, May fill 02/10/22 and weekly on Fridays for 3 weeks, # 14 tablet, 2 Refills, 02/07/22 15:55:00 EST, [facility], 155, cm, 01/23/22 14:00:00 EST, Height, 106.5, kg,09/14/21 9:38:00 EDT, Dry Weight Start Date: 02/07/22 Status: Ordered selenium sulfide 2.5% topical lotion See Instructions, APPLY TOPICALLY TO AFFECTED AREA EVERY DAY FOR 7 DAYS, # 120 mL, 3 Refills, Soft Stop, 10/26/21 15:43:00 EDT, [facility], 7, APPLY TOPICALLY TO AFFECTED AREA EVERY DAY FOR 7 DAYS, 155, cm, 09/28/21 12:06:00 EDT, H... Start Date: 10/26/21 Status: Ordered tiZANidine 2 mg oral tablet 1, tablet, By Mouth, 3 times a day, # 60 tablet, Refills 0, Route to Pharmacy Electronically, [facility] ST[id number], 155, cm, 05/03/21 14:39:00 EST, Height, 95.9, kg, 12/05/20 10:08:00 EDT, Dry Weight Start Date: 05/09/21 Status: Ordered traMADol 50 mg oral tablet 1 tablet = 50 mg, By Mouth, Every 8 hours, PRN Pain , Severe, for 7 days, May fill 02/10/22 and weekly on Fridays for 3 weeks, # 21 tablet, 2 Refills, Acute 02/28/22 15:55:00 EST, 02/07/22 15:55:00 EST, Tablet, [facility] [place], Partial f... Start Date: 02/07/22 Stop Date: [...] Personnel Name: Ilya De Leon MD Position: [facility] Primary Care Physician Member Role: PCP Address: Address: [address] [place] [id number]- Care Team Related Persons Name: JD ALVAREZ Address: home [address] [place] [id number]
--- OUTSIDE RECORDS SUMMARY | 2022-11-03 10:44 | XMS_ITS | Continuity of Care Document ---
Author Name Unknown Organization [facility] Address Unknown Care Team Providers Care Offset Plate Preparation Supervisor Name Role Phone Ilya De Leon MD Primary Care Physician Encounter [facility] [place] Date(s): 06/27/21 - 08/03/21 [facility] Attending Physician: Ilya De Leon MD Admitting [...] Refills, Maintenance, 06/29/21 15:10:00 EDT, ER Tablet, [facility]/pharmacy #[id number], Partial fill upon patient request if the prescription is for a schedule II opioid drug., 155, cm, 05/30/21 15:34:... Start Date: 06/29/21 Status: Ordered capsaicin 0.025% topical cream See Instructions, APPLY TO AFFECTED AREA TWICE A DAY, # 60 Gm, 1 Refills, [id number], 30, APPLY TO AFFECTED AREA TWICE A DAY, 155, cm, 05/30/21 15:34:00 EDT, Height, 95.9, kg, 12/05/20 10:08:00 EDT, Dry Weight Start Date: 05/31/21 Status: Ordered Cavilon Emollient topical cream 1 application, Topically, 2 times a day, PRN for dry skin, # 454 Gm, 1 Refills, Maintenance, 09/30/19 16:26:00 EDT, Cream, [facility] 3, 1 application Topically 2 times a day,PRN:for dry skin, 158, cm, 08/27/19 13:02:00 EDT, Height, 76, kg... Start Date: 09/30/19 Status: Ordered clonazePAM 0.5 mg oral tablet 1 tablet = 0.5 mg, By Mouth, Daily, mAY FILL 06/21/21, # 14 tablet, 0 Refills, Maintenance, 07/29/2212:45:00 EDT, Tablet, [facility], SUPERVISOR STOCK RANCH reviewed, covering for Dr. De Leon, 155, cm, 05/30/21 15:34:00 EDT, Height, 95.9, kg, ... Start Date: 07/29/21 Stop Date: 08/12/21 Status: Ordered Dovonex 0.005% topical cream 1 applicator, Topically, 2 times a day, # 60 Gm, 5 Refills, Maintenance, 07/07/19 17:30:00 EDT, [facility] 3, 1 applicator Topically 2 times a day,x30 days, 158, cm, 12/24/18 10:25:00 EDT, Height, 76, kg, 04/12/19 15:31:00 EST, Dry Weight Start Date: 07/07/19 Stop Date: 01/03/20 Status: Ordered fluticasone 50 mcg/inh nasal spray 1 sprays, Nares, Both, 2 times a day, in each nostril. for allergies, # 16 Gm, 0 Refills, Maintenance, 04/27/20 14:35:00 EST, [place], [facility] 3, Partial fill upon patient request if theprescription is for a schedule II opioid drug., 1... Start Date: 04/27/20 Stop Date: 05/27/20 Status: Ordered furosemide 20 mg oral tablet 1, tablet, By Mouth, Daily, # 30 tablet, Refills 3, Tot. Refills 3, Maintenance, 04/18/21 12:11:00 EST, Route to Pharmacy Electronically, [facility]/pharmacy #[id number], 155, cm, 04/18/21 10:12:00 EST, Height, 95.9, kg, 12/05/20 10:08:00 EDT, Dry Weight Start Date: 04/18/21 Status: Ordered halobetasol 0.05% topical ointment See Instructions, APPLY A THIN FILM TO THE AFFECTED SKIN AND RUB IN GENTLY AND COMPLETELY TWICE A DAY, # 50 Gm, 1 Refills, [facility] ST[id number], 30, APPLY A THIN FILM TO THE AFFECTED SKIN AND RUB IN GENTLY AND COMPLETELY TWICE A DAY, 155, cm, 12/05/20 10:0... Start Date: 03/15/21 Status: Ordered hydrocortisone 1% topical cream 1 application, Topically, 2 times a day, # 30 Gm, 0 Refills, Maintenance, 06/17/21 11:42:00 EDT, Cream, [facility], Partial fill upon patient request if the prescription is for a schedule II opioid drug., 1 application Topically 2 times... Start Date: 06/17/21 Status: Ordered ketoconazole 2% topical shampoo See Instructions, APPLY 1 APPLICATOR TOPICALLY 3X PER WEEK, # 120 mL, 3 Refills, [facility] STORE [id number], 30, APPLY 1 APPLICATOR TOPICALLY 3X PER WEEK, 155, cm, 05/30/21 15:34:00 EDT, Height, 95.9, kg, 12/05/20 10:08:00 EDT, Dry Weight Start Date: 08/02/21 Status: Ordered loratadine 10 mg oral tablet 1, tablet, By Mouth, Daily, # 15 tablet, Refills 3, Route to Pharmacy Electronically, [id number], 155, cm, 05/30/21 15:34:00 EDT, Height, 95.9, kg, 12/05/20 10:08:00 EDT, Dry Weight Start Date: 06/21/21 Status: Ordered Methadone By Mouth, 0 Refills, Maintenance Start Date: 12/25/11 Status: Ordered mupirocin 2% topical cream 1 application, Topically, 3 times a day, # 30 Gm, 2 Refills, Maintenance, 03/08/21 10:26:00 EST, Cream, [facility]/pharmacy #[id number], Partial fill upon patient request [...] Stop 08/12/21 13:45:00 EDT, 07/29/21 13:45:00 EDT, [facility], 155, cm, 05/30/21 15:34:00 EDT, Height, 95.9, kg, 12/05/20 10:08:00 EDT, Dry Weight Start Date: 07/29/21 Stop Date: 08/12/21 Status: Ordered selenium sulfide 2.5% topical lotion See Instructions, APPLY TOPICALLY TO AFFECTED AREA EVERY DAY FOR 7 DAYS, # 120 mL, 3 Refills, Soft Stop, 04/26/21 18:07:00 EST, [facility]/pharmacy #[id number], 7, APPLY TOPICALLY TO AFFECTED AREA EVERY DAY FOR 7DAYS, 155, cm, 04/18/21 10:12:00 EST, Height, 95.9,... Start Date: 04/26/21 Status: Ordered tiZANidine 2 mg oral tablet 1, tablet, By Mouth, 3 times a day, # 60 tablet, Refills 0, Route to Pharmacy Electronically, [facility] STORE [id number], 155, cm, 05/03/21 14:39:00 EST, Height, 95.9, kg, 09/26/21 10:08:00 EDT, Dry Weight Start Date: 05/09/21 [...]
--- OUTSIDE RECORDS SUMMARY | 2022-11-03 10:44 | XMS_ITS | Continuity of Care Document ---
Author Name Unknown Organization [facility] Address [address] [place] [address]- Care Team Providers Care Stations Superintendent Name Role Phone Ilya De Leon MD Primary Care Physician Encounter [facility] [place] [facility] R [id number] Date(s): 10/03/21 - 12/07/21 [facility] [address]- Attending Physician: Ilya De Leon MD Admitting [...] Maintenance, 06/29/21 15:10:00 EDT, ER Tablet, [id number], Partial fill upon patient request if the prescription is for a schedule II opioid drug., 155, cm, 05/30/21 15:34:... 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 De Leon, 155, cm, 09/28... Start Date: 12/06/21 Stop Date: 12/27/21 Status: Ordered coal tar topical 1% lotion See Instructions, applyTopically Daily at bedtime, # 120 mL, 3 Refills, Maintenance, 10/26/21 15:45:00 EDT, [facility], Partial fill upon patient request if the prescription is for a schedule II opioid drug., applyTopically Daily a... Start Date: 10/26/21 Status: Ordered Dovonex 0.005% topical cream 1 applicator, Topically, 2 times a day, # 60 Gm, 5 Refills, Maintenance, 07/07/19 17:30:00 EDT, [facility], 1 applicator Topically 2 times a day,x30 days, 158, cm, 12/24/18 10:25:00 EDT, Height, 76, kg, 04/12/19 15:31:00 EST, Dry Weight Start Date: 07/07/19 Stop Date: 01/03/20 Status: Ordered Eucerin Unscented topical lotion See Instructions, apply as frequently as needed, # 1 each, 0 Refills, Maintenance, 09/28/21 12:23:00 EDT, [facility], Partial fill upon patient request if the prescription is for a schedule II opioid drug., apply as frequently as n... Start Date: 09/28/21 Status: Ordered fluticasone 50 mcg/inh nasal spray 1 sprays, Nares, Both, 2 times a day, in each nostril. for allergies, # 16 Gm, 0 Refills, Maintenance, 04/27/20 14:35:00 EST, [place], [facility] 3, Partial fill upon patient request if theprescription is for a schedule II opioid drug., 1... Start Date: 04/27/20 Stop Date: 05/27/20 Status: Ordered halobetasol 0.05% topical ointment See Instructions, APPLY A THIN FILM TO THE AFFECTED SKIN AND RUB IN GENTLY AND COMPLETELY TWICE A DAY, # 50 Gm, 1 Refills, Maintenance, 10/26/21 15:44:00 EDT, [facility], 30, APPLY A THIN FILM TO THE AFFECTED SKIN AND RUB IN GENTLY... Start Date: 10/26/21 Status: Ordered hydrocortisone 1% topical cream 1 application, Topically, 2 times a day, # 30 Gm, 0 Refills, Maintenance, 06/17/21 11:42:00 EDT, Cream, [facility] 3, Partial fill upon patient request if the prescription is for a schedule II opioid drug., 1 application Topically 2 times... Start Date: 06/17/21 Status: Ordered ketoconazole 2% topical shampoo See Instructions, APPLY 1 APPLICATOR TOPICALLY 3X PER WEEK, # 120 mL, 3 Refills, [facility] [id number], 30, APPLY 1 APPLICATOR TOPICALLY 3X PER WEEK, 155, cm, 05/30/21 15:34:00 EDT, Height, 95.9, kg, 12/05/20 10:08:00 EDT, Dry Weight Start Date: 08/02/21 Status: Ordered loratadine 10 mg oral tablet 1, tablet, By Mouth, Daily, # 90 tablet, Refills 1, Tot. Refills 1, Maintenance, 11/01/21 15:19:00 EDT, [id number], cm, 09/28/21 12:06:00 EDT, Height, 106.5, kg, 09/14/21 9:38:00 EDT, Dry Weight Start Date: 11/01/21 Status: Ordered Methadone By Mouth, 0 Refills, Maintenance Start Date: 12/25/11 Status: Ordered mupirocin 2% topical cream 1 application, Topically, 3 times a day, # 30 Gm, 2 Refills, Maintenance, 03/08/21 10:26:00 EST, Cream, [facility]/pharmacy #[id number], Partial fill upon patient [...] 07/27/20 11:50:00 EDT, Cream, [facility], 1 applicationTopically Once,Instr:to skin head to feet, remove b... Start Date: 07/27/20 Status: Ordered predniSONE 10 mg oral tablet See Instructions, May fill 12/09/21 and weekly on Fridays for 3 weeks, # 14 tablet, 2 Refills, 12/06/21 10:38:00 EDT, [facility], 155, cm, 09/28/21 12:06:00 EDT, Height, 106.5, kg,09/14/21 9:38:00 EDT, Dry Weight Start Date: 12/06/21 Status: Ordered selenium sulfide 2.5% topical lotion See Instructions, APPLY TOPICALLY TO AFFECTED AREA EVERY DAY FOR 7 DAYS, # 120 mL, 3 Refills, Soft Stop, 10/26/21 15:43:00 EDT, [facility], 7, APPLY TOPICALLY TO AFFECTED AREA EVERY DAY FOR 7 DAYS, 155, cm, 09/28/21 12:06:00 EDT, H... Start Date: 10/26/21 Status: Ordered tiZANidine 2 mg oral tablet 1, tablet, By Mouth, 3 times a day, # 60 tablet, Refills 0, Route to Pharmacy Electronically, [id number], 155, cm, 05/03/21 14:39:00 EST, Height, 95.9, kg, 12/05/20 10:08:00 EDT, Dry Weight Start Date: 05/09/21 Status: Ordered traMADol 50 mg oral tablet 1 tablet = 50 mg, By Mouth, Every 8 hours, PRN Pain , Severe, for 7 days, May fill 12/09/21 and weekly on Fridays for3 weeks, # 21 tablet, 2 Refills, Acute 12/27/21 10:38:00 EDT, 12/06/21 10:38:00 EDT, Tablet, [facility] [place], Partial fi... Start Date: 12/06/21 Stop Date: [...] Name: Ilya De Leon MD Address: Address: [address] [place] [address]
--- OUTSIDE RECORDS SUMMARY | 2022-11-03 10:44 | XMS_ITS | Continuity of Care Document ---
Author Name Unknown Organization [facility] Address [address] [place] [address]- Care Team Providers Care Emergency Response Officer Name Role Phone Ilya De Leon MD Primary Care Physician Encounter [facility] [place] Date(s): 09/20/20 - 10/20/20 [facility] [address] [place] [address]- Allergies, Adverse Reactions, Alerts Substance Reaction Severity [...] [facility] Medications acetaminophen 500 mg oral tablet 2 tablet = 1,000 mg, By Mouth, 3 times a day, PRN as needed for fever, not to exceed 3000 mg/day take scheduled three times a day, # 100 tablet, 1 Refills, Acute 12/26/20 11:44:00 EDT, 09/24/20 11:43:00 EDT, Tablet, [id number], Partial fill u... Start Date: 09/24/20 Stop Date: 12/26/20 Status: Ordered Cavilon Emollient topical cream 1 application, Topically, 2 times a day, PRN for dry skin, # 454 Gm, 1 Refills, Maintenance, 09/30/19 16:26:00 EDT, Cream, [facility] 3, 1 application Topically 2 times a day,PRN:for dry skin, 158, cm, 08/27/19 13:02:00 EDT, Height, 76, kg... Start Date: 09/30/19 Status: Ordered cetirizine 10 mg oral tablet 1 tablet = 10 mg, By Mouth, Daily, for allergies. Do NOT take with claritin, # 30 tablet, 0 Refills, Maintenance, 07/23/20 11:37:00 EDT, Tablet, [facility], Partial fill upon patient request if the prescription is for a schedule II... Start Date: 07/23/20 Stop Date: 08/22/20 Status: Ordered Claritin 10 mg oral tablet 10 mg, 1, tablet, By Mouth, Daily, # 15 tablet, Refills 3, Tot. Refills 3, Maintenance, 11/06/18 8:33:38 EDT, Route to Pharmacy Electronically, [id number], [facility] Start Date: 11/06/18 Status: Ordered clonazePAM 0.5 mg oral tablet 1 tablet = 0.5 mg, By Mouth, Daily, # 28 tablet, 0 Refills, Maintenance, 10/18/20 11:03:00 EDT, Tablet, [facility], Partial fill upon patient request if the prescription is for a schedule II opioid drug., 158, cm, 10/18/20 10:46:00... Start Date: 10/18/20 Status: Ordered clonazePAM 0.5 mg oral tablet 1 tablet = 0.5 mg, By Mouth, Daily, # 1 tablet, 0 Refills, Maintenance, 10/17/20 9:00:00 EDT, Tablet, [facility] 3, Partial fill upon patient [...] Gm, 5 Refills, Maintenance, 07/07/19 17:30:00 EDT, [facility] 3, 1 applicator Topically 2 [...] Gm, 0 Refills, Maintenance, 04/27/20 14:35:00 EST, [place], [facility] 3, Partial fill upon patient request if theprescription is for a schedule II opioid drug., 1... Start Date: 04/27/20 Stop Date: 05/27/20 Status: Ordered furosemide 20 mg oral tablet 20 mg, 1, tablet, By Mouth, Daily, # 30 tablet, Refills 1, Tot. Refills 1, Maintenance, 08/27/20 16:12:00 EDT, Route to Pharmacy Electronically, [facility]/pharmacy #[id number], Partial fill upon patient request if the prescription is for a schedule II opioid drug... Start Date: 08/27/20 Status: Ordered hydrocortisone 1% topical cream 1 application, Topically, 2 times a day, Apply to rash areas, # 60 Gm, 3 Refills, Maintenance, 06/04/19 14:52:00 EDT, Cream, [facility], 1 application Topically 2 [...] 12/26/20 11:39:00 EDT, 09/24/20 11:38:00 EDT, Ointment, [facility]/pharmacy #[id number], Partial fill upon patient request if [...] 2 Refills, Maintenance, 09/14/20 17:22:00 EDT, Cream, [facility]/pharmacy #[id number], Partial fill upon patient request if [...] 0 Refills, Maintenance, 10/18/20 11:06:00 EDT, Tablet, [facility], Partial fill upon patient request if the prescription is for a schedule II opioid drug., 158, cm, 10/18/20 10... Start Date: 10/18/20 Stop Date: 11/01/20 Status: Ordered selenium sulfide 2.5% topical lotion See Instructions, APPLY TOPICALLY TO AFFECTED AREA EVERY DAY FOR 7 DAYS, # 120 mL, 3 Refills, Soft Stop, 07/23/20 11:40:00 EDT, [facility], 7, APPLY TOPICALLY TO AFFECTED AREA [...] 1 Refills, Maintenance, 03/10/20 18:21:00 EST, Cream, [facility], Partial fill upon patient [...] 0 Refills, Maintenance, 09/24/20 11:47:00 EDT, Gel, [facility]/pharmacy #[id number], 1 application Topically 4 times a [...]
--- OUTSIDE RECORDS SUMMARY | 2022-11-03 10:44 | XMS_ITS | Continuity of Care Document ---
Author Name Unknown Organization [facility] Address [address] [place] [address]- Care Team Providers Care Industrial Fabric Cutter Name Role Phone Ilya De Leon MD Primary Care Physician [place] [facility] [place] 02[place]/22 [facility]/[address] [address]- [place] Allergies, Adverse Reactions, Alerts Substance Reaction Severity Status penicillin Rash Active morphine HAND SWELLING Active trimethoprim-sulfamethoxazole DS 1 Throa t Hives [...] Refills, Maintenance, 06/29/21 15:10:00 EDT, ER Tablet, [facility]/pharmacy #[id number], Partial fill upon patient request if the prescription is for a schedule II opioid drug., 155, cm, 05/30/21 15:34:... Start Date: 06/29/21 Status: Ordered capsaicin 0.025% topical cream See Instructions, APPLY TO AFFECTED AREA TWICE A DAY, # 60 Gm, 1 Refills, [facility] STORE [id number], 30, APPLY TO AFFECTED AREA TWICE A DAY, 155, cm, 05/30/21 15:34:00 EDT, Height, 95.9, kg, 12/05/20 10:08:00 EDT, Dry Weight Start Date: 05/31/21 Status: Ordered Cavilon Emollient topical cream 1 application, Topically, 2 times a day, PRN for dry skin, # 454 Gm, 1 Refills, Maintenance, 09/30/19 16:26:00 EDT, Cream, [facility], 1 application Topically 2 times a day,PRN:for dry skin, 158, cm, 08/27/19 13:02:00 EDT, Height, 76, kg... 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 De Leon, 155, cm, 10/0... Start Date: 01/18/22 Stop Date: 02/08/22 Status: Ordered coal tar topical 1% lotion See Instructions, applyTopically Daily at bedtime, # 120 mL, 3 Refills, Maintenance, 10/26/21 15:45:00 EDT, [facility], Partial fill upon patient request if the prescription is for a schedule II opioid drug., applyTopically Daily a... Start Date: 10/26/21 Status: Ordered Dovonex 0.005% topical cream 1 applicator, Topically, 2 times a day, # 60 Gm, 5 Refills, Maintenance, 07/07/19 17:30:00 EDT, [facility], 1 applicator Topically 2 times a day,x30 days, 158, cm, 12/24/18 10:25:00 EDT, Height, 76, kg, 04/12/19 15:31:00 EST, Dry Weight Start Date: 07/07/19 Stop Date: 01/03/20 Status: Ordered Eucerin Unscented topical lotion See Instructions, apply as frequently as needed, # 1 each, 0 Refills, Maintenance, 09/28/21 12:23:00 EDT, [facility], Partial fill upon patient request if the prescription is for a schedule II opioid drug., apply as frequently as n... Start Date: 09/28/21 Status: Ordered fluticasone 50 mcg/inh nasal spray 1 sprays, Nares, Both, 2 times a day, in each nostril. for allergies, # 16 Gm, 0 Refills, Maintenance, 04/27/20 14:35:00 EST, [place], [facility] 3, Partial fill upon patient request if theprescription is for a schedule II opioid drug., 1... Start Date: 04/27/20 Stop Date: 05/27/20 Status: Ordered halobetasol 0.05% topical ointment See Instructions, APPLY A THIN FILM TO THE AFFECTED SKIN AND RUB IN GENTLY AND COMPLETELY TWICE A DAY, # 50 Gm, 1 Refills, Maintenance, 10/26/21 15:44:00 EDT, [facility], 30, APPLY A THIN FILM TO THE AFFECTED SKIN AND RUB IN GENTLY... Start Date: 10/26/21 Status: Ordered ketoconazole 2% topical shampoo See Instructions, APPLY 1 APPLICATOR TOPICALLY 3X PER WEEK, # 120 mL, 3 Refills, Maintenance, 12/27/21 19:30:00 EDT, [facility] STORE [id number], 30, APPLY 1 APPLICATOR TOPICALLY 3X PER [...] Refills, Soft Stop, 07/27/20 11:50:00 EDT, Cream, [facility], 1 applicationTopically Once,Instr:to skin head to feet, remove b... Start Date: 07/27/20 Status: Ordered predniSONE 10 mg oral tablet See Instructions, May fill 01/20/22 and weekly on Fridays for 3 weeks, # 14 tablet, 2 Refills, 01/18/22 14:09:00 EST, [facility], 155, cm, 12/12/21 16:00:00 EDT, Height, 106.5, kg, 09/14/21 9:38:00 EDT, Dry Weight Start Date: 01/18/22 Status: Ordered selenium sulfide 2.5% topical lotion See Instructions, APPLY TOPICALLY TO AFFECTED AREA EVERY DAY FOR 7 DAYS, # 120 mL, 3 Refills, Soft Stop, 10/26/21 15:43:00 EDT, [facility], 7, APPLY TOPICALLY TO AFFECTED AREA EVERY DAY FOR 7 DAYS, 155, cm, 09/28/21 12:06:00 EDT, H... Start Date: 10/26/21 Status: Ordered tiZANidine 2 mg oral tablet 1, tablet, By Mouth, 3 times a day, # 60 tablet, Refills 0, Route to Pharmacy Electronically, [facility] ST[facility] [id number], 155, cm, 05/03/21 14:39:00 EST, Height, 95.9, kg, 12/05/20 10:08:00 EDT, Dry Weight Start Date: 05/09/21 Status: Ordered traMADol 50 mg oral tablet 1 tablet = 50 mg, By Mouth, Every 8 hours, PRN Pain , Severe, for 7 days, May fill 01/20/22 and weekly on Fridays for 3 weeks, # 21 tablet, 2 Refills, Acute 02/08/22 14:09:00 EST, 01/18/22 14:09:00 EST, Tablet, [facility] [place], Partial... Start Date: 01/18/22 Stop Date: 02/08/22 [...] Name: Ilya De Leon MD Position: [facility] Primary Care Physician Member Role: PCP Address: Address: [address] [place] [phone]- Care Team Related Persons Name: JD ALVAREZ Address: home [address] [place] [id number]
--- OUTSIDE RECORDS SUMMARY | 2022-11-03 10:44 | XMS_ITS | Continuity of Care Document ---
Author Name Unknown Organization [facility] Address [address] [place] [address]- Care Team Providers Care Helmet Hat Puncher Name Role Phone Ilya De Leon MD Primary Care Physician [place] [facility] [place] 07/22/20 - 08/21/20 [facility]/[address] [address]- Allergies, Adverse Reactions, Alerts Substance Reaction Severity [...] 1 Refills, Maintenance, 09/30/19 16:26:00 EDT, Cream, [facility], 1 application Topically 2 times a day,PRN:for dry skin, 158, cm, 08/27/19 13:02:00 EDT, Height, 76, kg... Start Date: 09/30/19 Status: Ordered cetirizine 10 mg oral tablet 1 tablet = 10 mg, By Mouth, Daily, for allergies. Do NOT take with claritin, # 30 tablet, 0 Refills, Maintenance, 07/23/20 11:37:00 EDT, Tablet, [facility], Partial fill upon patient request if the prescription is for a schedule II... Start Date: 07/23/20 Stop Date: 08/22/20 Status: Ordered Claritin 10 mg oral tablet 10 mg, 1, tablet, By Mouth, Daily, # 15 tablet, Refills 3, Tot. Refills 3, Maintenance, 11/06/18 8:33:38 EDT, Route to Pharmacy Electronically, [id number], [facility] Start Date: 11/06/18 Status: Ordered diphenhydrAMINE 25 mg oral tablet 1 tablet = 25 mg, By Mouth, 3 times a day, PRN as needed for itching, Will cause drowsiness, # 30 tablet, 0 Refills, Maintenance, 07/16/20 15:11:00 EDT, Tablet, [facility], Partial fill upon patient request if the prescription is f... Start Date: 07/16/20 Status: Ordered Dovonex 0.005% topical cream 1 applicator, Topically, 2 times a day, # 60 Gm, 5 Refills, Maintenance, 07/07/19 17:30:00 EDT, [facility] 3, 1 applicator Topically 2 times [...] Gm, 0 Refills, Maintenance, 04/27/20 14:35:00 EST, [place], [facility], Partial fill upon patient request if theprescription is for a schedule II opioid drug., 1... Start Date: 04/27/20 Stop Date: 05/27/20 Status: Ordered halobetasol 0.05% topical cream 1 application, Topically, 2 times a day, # 50 Gm, 3 Refills, Maintenance, 08/02/20 12:54:00 EDT, Cream, [facility], Partial fill upon patient request if the prescription is for a schedule II opioid drug., 1 application Topically 2... Start Date: 08/02/20 Status: Ordered hydrocortisone 1% topical cream 1 application, Topically, 2 times a day, Apply to rash areas, # 60 Gm, 3 Refills, Maintenance, 06/04/19 14:52:00 EDT, Cream, [facility], 1 application Topically 2 times [...] 0 Refills, Soft Stop, 08/06/20 11:18:00 EDT, [facility], 158, cm, 07/23/20 11:13:00 EDT... Start Date: 08/06/20 Status: Ordered Methadone By Mouth, 0 Refills, Maintenance Start Date: 12/25/11 Status: Ordered Nizoral 2% topical shampoo See Instructions, 1 applicator Topically 3x per week, # 120 mL, 3 Refills, Soft Stop, 08/12/20 10:30:00 EDT, [facility]/pharmacy #[id number], 1 applicator Topically 3x per week, 158, cm, 07/23/20 11:13:00 EDT, Height, 82, kg, 07/21/20 20:18:00 EDT, Dry Weight Start Date: 08/12/20 Status: Ordered permethrin 5% topical cream 1 application, Topically, Once, to skin head to feet, remove by washing after 8 to 14 hours, # 60 Gm, 0 Refills, Soft Stop, 07/27/20 11:50:00 EDT, Cream, [facility], 1 applicationTopically Once,Instr:to skin head to feet, remove b... Start Date: 07/27/20 Status: Ordered predniSONE 10 mg oral tablet See Instructions, Take 1 tablets daily fror 21 days more until derm appointment, # 21 tablet, 0 Refills, Maintenance, 08/12/20 10:30:00 EDT, [facility]/pharmacy #[id number], Partial fill upon patient request if the prescription is for a schedule II opioid drug.,... Start Date: 08/12/20 Status: Ordered selenium sulfide 2.5% topical lotion See Instructions, APPLY TOPICALLY TO AFFECTED AREA EVERY DAY FOR 7 DAYS, # 120 mL, 3 Refills, Soft Stop, 07/23/20 11:40:00 EDT, [facility], 7, APPLY TOPICALLY TO AFFECTED AREA EVERY DAY FOR 7 DAYS, 158, cm, 07/23/20 11:13:00 EDT, H... Start Date: 07/23/20 Status: Ordered Shingrix intramuscular injection = 0.5 mL, Intramuscular, Once, repeat dose in 2 to 6 months, # 2 each, 0 Refills, Soft Stop, 05/27/20 11:03:00 EDT, Powder, [facility], Partial fill upon patient request [...] 1 Refills, Maintenance, 03/10/20 18:21:00 EST, Cream, [facility], Partial fill upon patient [...] 0 Refills, Maintenance, 07/23/20 11:37:00 EDT, Gel, [facility] [place], 1 application Topically 4 times a day, [...]
--- OUTSIDE RECORDS SUMMARY | 2022-11-03 10:44 | XMS_ITS | Continuity of Care Document ---
Author Name Unknown Organization [facility] Address [address] [place] [id number]- Care Team Providers Care Industrial Engineering Manager Name Role Phone Ilya De Leon MD Primary Care Physician Encounter [facility] [place] Date(s): 08/23/22 - 10/27/22 [facility] [address] [place] [id number] Attending Physician: Leyda Sampson MD Admitting Physician: [...] 02/06/10 Garrett rded 1Admin Note: ADMIN BY [facility] 2Admin Note: FLUVIRIN MULTIDOSE ADMINISTERED AT [facility] Medications acetaminophen 650 mg oral tablet, extended release 2 tablet = 1,300 mg, By Mouth, Every 8 hours, # 100 tablet, 1 Refills, Maintenance, 06/29/21 15:10:00 EDT, ER Tablet, [facility]/pharmacy #[id number], Partial fill upon patient request if the prescription is for a schedule II opioid drug., 155, cm, 05/30/21 15:34:... Start Date: 06/29/21 Status: Ordered Cavilon Emollient topical cream 1 application, Topically, 2 times a day, PRN for dry skin, # 454 Gm, 1 Refills, Maintenance, 09/30/19 16:26:00 EDT, Cream, [facility] 3, 1 application Topically 2 times a day,PRN:for dry skin, 158, cm, 08/27/19 13:02:00 EDT, Height, 76, kg... Start Date: 09/30/19 Status: Ordered Cavilon Emollient topical cream 1 application, Topically, 2 times a day, PRN for dry skin, # 454 Gm, 3 Refills, Maintenance, 09/19/22 11:12:00 EDT, Cream, [facility], 1 application Topically 2 times a day,PRN:for dry skin, 155, cm, 09/04/22 10:17:00 EDT, Height,... Start Date: 09/19/22 Status: Ordered cetirizine 10 mg oral tablet, chewable 1 tablet = 10 mg, By Mouth, Daily, PRN for allergy symptoms, # 12 tablet, 4 Refills, Maintenance, 09/04/22 10:28:00 EDT, Chew Tablet, [facility], Partial fill upon patient request ifthe prescription is for a schedule II opioid drug.,... Start Date: 09/04/22 Stop Date: 10/24/22 Status: Ordered cholecalciferol 1000 intl units oral capsule 1 capsule = 25 mcg, By Mouth, Daily, vitamin D, # 100 capsule, 3 Refills, Maintenance, 07/24/22 13:10:00 EDT, Capsule, [facility]/pharmacy #[id number], Partial [...] 3 Refills, Maintenance, 10/04/22 8:15:00 EDT, Tablet, [facility], PRACTICE NURSE reviewed, covering for Dr. De Leon, 15... Start Date: 10/04/22 Stop Date: 11/01/22 Status: Ordered clonazePAM 0.5 mg oral tablet 1 tablet = 0.5 mg, By Mouth, 2 times a day, Increaseddose July weekly on Fridays for 3 weeks starting on 07/21, # 14 tablet, 2 Refills, Maintenance, 07/19/22 12:38:00 EDT, Tablet, [facility], [facility] reviewed, covering for Dr. De Leon, 1... Start Date: 07/19/22 Stop Date: 08/09/22 Status: Ordered Dovonex 0.005% topical cream 1 applicator, Topically, 2 times a day, # 60 Gm, 5 Refills, Maintenance, 05/24/22 12:41:00 EDT, [facility], 1 applicator Topically 2 times a day,x30 days, 155, cm, 01/23/22 14:00:00 EST, Height, 106.5, kg, 09/14/21 9:38:00 EDT, Dry... Start Date: 05/24/22 Stop Date: 11/20/22 Status: Ordered Eucerin Unscented topical lotion See Instructions, apply as frequently as needed, # 1 each, 3 Refills, Maintenance, 09/19/22 11:12:00 EDT, [facility], Partial fill upon patient request if the prescription is for a schedule II opioid drug., apply as frequently as n... Start Date: 09/19/22 Status: Ordered Eucerin Unscented topical lotion See Instructions, apply as frequently as needed, # 1 each, 0 Refills, Maintenance, 09/28/21 12:23:00 EDT, [facility], Partial fill upon patient request if the prescription is for a schedule II opioid drug., apply as frequently as n... Start Date: 09/28/21 Status: Ordered fluticasone 50 mcg/inh nasal spray 1 sprays, Nares, Both, 2 times a day, in each nostril. for allergies, # 16 Gm, 0 Refills, Maintenance, 04/27/20 14:35:00 EST, [place], [facility] [...] 0 Refills, Maintenance, 09/12/22 13:49:00 EDT, [facility]/pharmacy #[id number], 30, APPLY A THIN FILM TO THE AFFECTED SKIN AND RUB IN GENTLY AND COMPLET... Start Date: 09/12/22 Status: Ordered halobetasol 0.05% topical ointment See Instructions, APPLY A THIN FILM TO THE AFFECTED SKIN AND RUB IN GENTLY AND COMPLETELY TWICE A DAY, # 50 Gm, 3 Refills, Maintenance, 09/19/22 11:12:00 EDT, [facility], 30, APPLY A THIN FILM TO THE AFFECTED SKIN AND RUB IN GENTLY... Start Date: 09/19/22 Status: Ordered ketoconazole 2% topical shampoo See Instructions, APPLY 1 APPLICATOR TOPICALLY 3X PER WEEK, # 120 mL, 3 Refills, Maintenance, 05/16/22 8:48:00 EST, [facility] ST[facility] [id number], 30, APPLY 1 APPLICATOR TOPICALLY 3X PER WEEK, 155, cm, 01/23/22 14:00:00 EST, Height, 106.5, kg, 09/14/21 9:38:00 EDT,... Start Date: 05/16/22 Status: Ordered loratadine 10 mg oral tablet 1, tablet, By Mouth, Daily, # 30 tablet, Refills 5, Tot. Refills 5, Maintenance, 07/04/22 8:39:00 EDT, Route to Pharmacy Electronically, [facility]/pharmacy #[id number], 155, cm, 01/23/22 14:00:00 EST, Height, [...] Refills, Soft Stop, 07/27/20 11:50:00 EDT, Cream, [facility], 1 applicationTopically Once,Instr:to skin head to feet, remove b... Start Date: 07/27/20 Status: Ordered predniSONE 5 mg oral tablet See Instructions, Starting next refill increase to 4 tablets daily, # 28 tablet, 3 Refills, Maintenance, 10/04/22 8:15:00 EDT, [facility], Partial fill upon patient request if theprescription is for a schedule II opioid drug., 155... Start Date: 10/04/22 Status: Ordered selenium sulfide 2.5% topical lotion See Instructions, APPLY TOPICALLY TO AFFECTED AREA EVERY DAY FOR 7 DAYS, # 120 mL, 3 Refills, Soft Stop, 10/26/21 15:43:00 EDT, [facility], 7, APPLY TOPICALLY TO AFFECTED AREA EVERY DAY FOR 7 DAYS, 155, cm, 09/28/21 12:06:00 EDT, H... Start Date: 10/26/21 Status: Ordered simvastatin 20 mg oral tablet 20 mg, 1, tablet, By Mouth, Daily at bedtime, for cholesterol, # 30 tablet, Refills 5, Tot. Refills5, Maintenance, 07/24/22 13:12:00 EDT, Route to Pharmacy Electronically, [facility]/pharmacy #[id number], Partial [...] 11/01/22 8:14:00 EDT, 10/04/22 8:14:00 EDT, Tablet, [facility], Partial fi... Start Date: 10/04/22 Stop Date: [...] Personnel Name: Ilya De Leon MD Position: [facility] Physician - Primary Care Member Role: PCP Address: Address: [address] [place] [address]- Care Team Related Persons Name: JD ALVAREZ Address: home [address] [place] [id number]
--- OUTSIDE RECORDS SUMMARY | 2022-11-03 10:44 | XMS_ITS | Continuity of Care Document ---
Author Name Unknown Organization [facility] Address Unknown Care Team Providers Care Air Cargo Specialist Name Role Phone Haley NEWMAN, Ilya Primary Care Physician Encounter [facility] [place] Date(s): 06/20/21 - 07/20/21 [facility] Allergies, Adverse Reactions, [...] Refills, Maintenance, 06/29/21 15:10:00 EDT, ER Tablet, [facility]/pharmacy #[id number], Partial fill upon patient request if the prescription is for a schedule II opioid drug., 155, cm, 05/30/21 15:34:... Start Date: 06/29/21 Status: Ordered capsaicin 0.025% topical cream See Instructions, APPLY TO AFFECTED AREA TWICE A DAY, # 60 Gm, 1 Refills, [facility] STORE [id number], 30, APPLY TO AFFECTED AREA TWICE A DAY, 155, cm, 05/30/21 15:34:00 EDT, Height, 95.9, kg, 12/05/20 10:08:00 EDT, Dry Weight Start Date: 05/31/21 Status: Ordered Cavilon Emollient topical cream 1 application, Topically, 2 times a day, PRN for dry skin, # 454 Gm, 1 Refills, Maintenance, 09/30/19 16:26:00 EDT, Cream, [facility] 3, 1 application Topically 2 times a day,PRN:for dry skin, 158, cm, 08/27/19 13:02:00 EDT, Height, 76, kg... Start Date: 09/30/19 Status: Ordered clonazePAM 0.5 mg oral tablet 1 tablet = 0.5 mg, By Mouth, Daily, mAY FILL 06/21/21, # 14 tablet, 0 Refills, Maintenance, 06/21/2215:00:00 EDT, Tablet, [facility]/pharmacy #[id number], ROTARY CUTTER reviewed, covering for Dr. De Leon, 155, cm, 05/30/2214:34:00 EDT, Height, 95.9, kg, 12/05/20 10:08:00 E... Start Date: 06/20/21 Stop Date: 07/04/21 Status: Ordered clonazePAM 0.5 mg oral tablet 1 tablet = 0.5 mg, By Mouth, Daily, # 7 tablet, 0 Refills, Maintenance, 07/14/21 15:52:00 EDT, Tablet, [facility], ROTARY CUTTER reviewed, covering for Dr. De Leon, 155, cm, 05/30/21 15:34:00 EDT, Height, 95.9, kg, 12/05/20 10:08:00 EDT, Dry... Start Date: 07/14/21 Stop Date: 07/21/21 Status: Ordered Dovonex 0.005% topical cream 1 applicator, Topically, 2 times a day, # 60 Gm, 5 Refills, Maintenance, 07/07/19 17:30:00 EDT, [facility], 1 applicator Topically 2 times a day,x30 days, 158, cm, 12/24/18 10:25:00 EDT, Height, 76, kg, 04/12/19 15:31:00 EST, Dry Weight Start Date: 07/07/19 Stop Date: 01/03/20 Status: Ordered fluticasone 50 mcg/inh nasal spray 1 sprays, Nares, Both, 2 times a day, in each nostril. for allergies, # 16 Gm, 0 Refills, Maintenance, 04/27/20 14:35:00 EST, [place], [facility], Partial fill upon patient request if theprescription is for a schedule II opioid drug., 1... Start Date: 04/27/20 Stop Date: 05/27/20 Status: Ordered furosemide 20 mg oral tablet 1, tablet, By Mouth, Daily, # 30 tablet, Refills 3, Tot. Refills 3, Maintenance, 04/18/21 12:11:00 EST, Route to Pharmacy Electronically, [facility]/pharmacy #[id number], 155, cm, 04/18/21 10:12:00 EST, Height, 95.9, kg, 12/05/20 10:08:00 EDT, Dry Weight Start Date: 04/18/21 Status: Ordered halobetasol 0.05% topical ointment See Instructions, APPLY A THIN FILM TO THE AFFECTED SKIN AND RUB IN GENTLY AND COMPLETELY TWICE A DAY, # 50 Gm, 1 Refills, [facility] [id number], 30, APPLY A THIN FILM TO THE AFFECTED SKIN AND RUB IN GENTLY AND COMPLETELY TWICE A DAY, 155, cm, 12/05/20 10:0... Start Date: 03/15/21 Status: Ordered hydrocortisone 1% topical cream 1 application, Topically, 2 times a day, # 30 Gm, 0 Refills, Maintenance, 06/17/21 11:42:00 EDT, Cream, [facility], Partial fill upon patient request if the prescription is for a schedule II opioid drug., 1 application Topically 2 times... Start Date: 06/17/21 Status: Ordered ketoconazole 2% topical shampoo See Instructions, APPLY 1 APPLICATOR TOPICALLY 3X PER WEEK, # 120 mL, 3 Refills, [facility] [id number], 30, APPLY 1 APPLICATOR TOPICALLY 3X PER WEEK, 155, cm, 03/17/21 7:53:00 EST, Height, 95.9, kg, 12/05/20 10:08:00 EDT, Dry Weight Start Date: 03/21/21 Status: Ordered loratadine 10 mg oral tablet 1, tablet, By Mouth, Daily, # 15 tablet, Refills 3, Route to Pharmacy Electronically, [id number], 155, cm, 05/30/21 15:34:00 EDT, Height, 95.9, kg, 12/05/20 10:08:00 EDT, Dry Weight Start Date: 06/21/21 Status: Ordered Methadone By Mouth, 0 Refills, Maintenance Start Date: 12/25/11 Status: Ordered mupirocin 2% topical cream 1 application, Topically, 3 times a day, # 30 Gm, 2 Refills, Maintenance, 03/08/21 10:26:00 EST, Cream, [id number], Partial fill upon patient request if the prescription is for a schedule II opioid drug., 1 application Topically 3 times a day,... Start Date: 03/08/21 Status: Ordered permethrin 5% topical cream 1 application, Topically, Once, to skin head to feet, remove by washing after 8 to 14 hours, # 60 Gm, 0 Refills, Soft Stop, 07/27/20 11:50:00 EDT, Cream, [facility], 1 applicationTopically Once,Instr:to skin head to feet, remove b... Start Date: 07/27/20 Status: Ordered predniSONE 10 mg oral tablet 1 tablet, By Mouth, Daily, for 7 days, # 7 tablet, 0 Refills, Physician Stop 07/21/21 17:13:00 EDT,07/14/21 17:13:00 EDT, [facility], 155, cm, 05/30/21 15:34:00 EDT, Height, 95.9, kg, 12/05/20 10:08:00 EDT, Dry Weight Start Date: 07/14/21 Stop Date: 07/21/21 Status: Ordered selenium sulfide 2.5% topical lotion See Instructions, APPLY TOPICALLY TO AFFECTED AREA EVERY DAY FOR 7 DAYS, # 120 mL, 3 Refills, Soft Stop, 04/26/21 18:07:00 EST, [facility]/pharmacy #[id number], 7, APPLY TOPICALLY TO AFFECTED AREA EVERY DAY FOR 7DAYS, 155, cm, 04/18/21 10:12:00 EST, Height, 95.9,... Start Date: 04/26/21 Status: Ordered tiZANidine 2 mg oral tablet 1, tablet, By Mouth, 3 times a day, # 60 tablet, Refills 0, Route to Pharmacy Electronically, [id number], 155, cm, 05/03/21 14:39:00 EST, Height, 95.9, [...]
--- OUTSIDE RECORDS SUMMARY | 2022-11-03 10:44 | XMS_ITS | Continuity of Care Document ---
Author Name Unknown Organization [facility] Address [address] [place] [address]- Care Team Providers Care T Rail Turner Name Role Phone Ilya De Leon MD Primary Care Physician [place] [facility] [place]20 [facility] [address] [place] [address]- Attending Physician: Bessie Hernandez MD Admitting Physician: Bessie Hernandez MD Allergies, Adverse Reactions, Alerts Substance Reaction Severity Status penicillin Rash Active aspirin Ibuprofen tight throat Rash Active morphine HAND SWELLING Active Toradol Rash Active Motrin tight throat Rash Active Imitrex Chest pain Active Compazine throat swells Active Reglan Agitated Active trimethoprim-sulfamethoxazole DS 1 Throjero renu Hives 17-MAY-2013 07:29:57<$> Unknown Active dehydroepiandrosterone 2 [...] M[facility] Medications acetaminophen 500 mg oral tablet 2 tablet = 1,000 mg, By Mouth, 3 times a day, PRN as needed for fever, not to exceed 3000 mg/day take scheduled three times a day, # 100 tablet, 1 Refills, Acute 12/26/20 11:44:00 EDT, 09/24/20 11:43:00 EDT, Tablet, [facility]/pharmacy #[id number], Partial fill u... Start Date: 09/24/20 Stop Date: 12/26/20 Status: Ordered Cavilon Emollient topical cream 1 application, Topically, 2 times a day, PRN for dry skin, # 454 Gm, 1 Refills, Maintenance, 09/30/19 16:26:00 EDT, [facility], 1 application Topically 2 times a day,PRN:for dry skin, 158, cm, 08/27/19 13:02:00 EDT, Height, 76, kg... Start Date: 09/30/19 Status: Ordered cetirizine 10 mg oral tablet 1 tablet = 10 mg, By Mouth, Daily, for allergies. Do NOT take with claritin, # 30 tablet, 0 Refills, Maintenance, 07/23/20 11:37:00 EDT, Tablet, [facility], Partial fill upon patient request if the prescription is for a schedule II... Start Date: 07/23/20 Stop Date: 08/22/20 Status: Ordered Claritin 10 mg oral tablet 10 mg, 1, tablet, By Mouth, Daily, # 15 tablet, Refills 3, Tot. Refills 3, Maintenance, 11/06/18 8:33:38 EDT, Route to Pharmacy Electronically, [id number], [facility] Start Date: 11/06/18 Status: Ordered clonazePAM 0.5 mg oral tablet 1 tablet = 0.5 mg, By Mouth, Daily, # 28 tablet, 0 Refills, Maintenance, 09/22/20 12:58:00 EDT, Tablet, [facility], Partial fill upon patient request if the prescription is for a schedule II opioid drug., 158, cm, 09/08/20 14:36:00... Start Date: 09/22/20 Status: Ordered clonazePAM 0.5 mg oral tablet 1 tablet = 0.5 mg, By Mouth, Daily, # 1 tablet, 0 Refills, Maintenance, 10/17/20 9:00:00 EDT, Tablet, [facility] 3, Partial fill upon patient request [...] 0 Refills, Maintenance, 07/16/20 15:11:00 EDT, Tablet, [facility], Partial fill upon patient request if the prescription is f... Start Date: 07/16/20 Status: Ordered Dovonex 0.005% topical cream 1 applicator, Topically, 2 times a day, # 60 Gm, 5 Refills, Maintenance, 07/07/19 17:30:00 EDT, [facility] 3, 1 applicator Topically 2 times [...] Gm, 0 Refills, Maintenance, 04/27/20 14:35:00 EST, [place], [facility] 3, Partial fill upon patient request if theprescription is for a schedule II opioid drug., 1... Start Date: 04/27/20 Stop Date: 05/27/20 Status: Ordered furosemide 20 mg oral tablet 20 mg, 1, tablet, By Mouth, Daily, # 30 tablet, Refills 1, Tot. Refills 1, Maintenance, 08/27/20 16:12:00 EDT, Route to Pharmacy Electronically, [facility]/pharmacy #[id number], Partial fill upon patient request if the prescription is for a schedule II opioid drug... Start Date: 08/27/20 Status: Ordered halobetasol 0.05% topical ointment 1 application, Topically, 2 times a day, apply in a thin film to the affected skin and rub in gently and completely, # 50 Gm, 1 Refills, Acute 10/18/20 14:15:00 EDT, 09/24/20 13:11:00 EDT, Ointment, [facility]/pharmacy #[id number], Partial fill upon patient reques... Start Date: 09/24/20 Stop Date: 10/18/20 Status: Ordered hydrocortisone 1% topical cream 1 application, Topically, 2 times a day, Apply to rash areas, # 60 Gm, 3 Refills, Maintenance, 06/04/19 14:52:00 EDT, Cream, [facility] [...] 12/26/20 11:39:00 EDT, 09/24/20 11:38:00 EDT, Ointment, [facility]/pharmacy #[id number], Partial fill upon patient request [...] 2 Refills, Maintenance, 09/14/20 17:22:00 EDT, Cream, [id number] Partial fill upon patient request if the prescription is for a schedule II opioid drug., 1 application Topically 3 times a day,... Start Date: 09/14/20 Status: Ordered Nizoral 2% topical shampoo See Instructions, 1 applicator Topically 3x per week, # 120 mL, 3 Refills, Soft Stop, 08/12/20 10:30:00 EDT, [id number], 1 applicator Topically 3x per week, [...] 0 Refills, Maintenance, 10/15/20 13:08:00 EDT, Tablet, [facility], Partial fill upon patient request if the prescription is for a schedule II opioid drug., 158, cm, 09/24/20 10... Start Date: 10/15/20 Stop Date: 10/22/20 Status: Ordered predniSONE 5 mg oral tablet 1 tablet = 5 mg, By Mouth, 3 times a day, # 21 tablet, 0 Refills, Maintenance, 10/06/20 15:03:00 EDT, Tablet, [id number], Partial fill upon patient request if the prescription is for a schedule II opioid drug., 158, cm, 09/24/20 10:45:00 EDT,... Start Date: 10/06/20 Stop Date: 10/13/20 Status: Ordered selenium sulfide 2.5% topical lotion See Instructions, APPLY TOPICALLY TO AFFECTED AREA EVERY DAY FOR 7 DAYS, # 120 mL, 3 Refills, Soft Stop, 07/23/20 11:40:00 EDT, [facility], 7, APPLY TOPICALLY TO AFFECTED AREA EVERY DAY FOR 7 DAYS, 158, cm, 07/23/20 11:13:00 EDT, H... Start Date: 07/23/20 Status: Ordered Shingrix intramuscular injection = 0.5 mL, Intramuscular, Once, repeat dose in 2 to 6 months, # 2 each, 0 Refills, Soft Stop, 05/27/20 11:03:00 EDT, Powder, [facility], Partial fill upon patient request if the [...] 1 Refills, Maintenance, 03/10/20 18:21:00 EST, Cream, [facility] 3, Partial fill upon patient request [...] 0 Refills, Maintenance, 09/24/20 11:47:00 EDT, Gel, [facility]/pharmacy #[id number], 1 application Topically 4 times a [...]
--- OUTSIDE RECORDS SUMMARY | 2022-11-03 10:44 | XMS_ITS | Continuity of Care Document ---
Author Name Unknown Organization [facility] Address [address] [place] [address]- Care Team Providers Care Services Host Name Role Phone Ilya De Leon MD Primary Care Physician Encounter [facility] [place] [id number] Date(s): 07/10/19 - 08/09/19 [facility] [address] [place] [address]- [facility] Attending Physician: Admtr, Ar8 Allergies, [...] 0 Refills, Maintenance, 07/07/19 17:30:00 EDT, Cream, [facility], 1 application Topically 2 times a day,PRN:for dry skin, 158, cm, 12/24/18 10:25:00 EDT, Height, 76, kg... Start Date: 07/07/19 Status: Ordered Claritin 10 mg oral tablet 10 mg, 1, tablet, By Mouth, Daily, # 15 tablet, Refills 3, Tot. Refills 3, Maintenance, 11/06/18 8:33:38 EDT, Route to Pharmacy Electronically, [id number], [facility] Start Date: 11/06/18 Status: Ordered Dovonex 0.005% topical cream 1 applicator, Topically, 2 times a day, # 60 Gm, 5 Refills, Maintenance, 07/07/19 17:30:00 EDT, [facility], 1 applicator Topically 2 [...] 3 Refills, Maintenance, 06/04/19 14:52:00 EDT, Cream, [facility], 1 application Topically 2 [...] 0 Refills, Soft Stop, 07/21/19 16:31:00 EDT, [facility], 158, cm, 12/24/18 10:25:00 EDT... Start Date: 07/21/19 Status: Ordered Medrol Dosepak 4 mg oral tablet per label intructions, By Mouth, Once, as on label, # 1 each, 0 Refills, Soft Stop, 06/27/19 15:04:00 EDT, [facility], 158, cm, 12/24/18 10:25:00 [...] DAYS, # 120 mL, 3 Refills, Maintenance, [facility], 7, APPLY TOPICALLY TO AFFECTED [...] 0 Refills, Maintenance, 04/06/19 20:19:00 EST, Tablet, [facility], 158, cm, 12/24/18 10:25:00 [...]
--- OUTSIDE RECORDS SUMMARY | 2022-11-03 10:44 | XMS_ITS | Continuity of Care Document ---
Author Name Unknown Organization [facility] Address [address] [place] [address]- Care Team Providers Care Trade Specialist Name Role Phone Ilya De Leon MD Primary Care Physician Encounter [facility] [place] Date(s): 01/20/22 - 02/19/22 [facility]/[address] [address]- [place] Allergies, Adverse Reactions, Alerts Substance Reaction [...] Refills, Maintenance, 06/29/21 15:10:00 EDT, ER Tablet, [facility]/pharmacy #[id number], Partial fill upon patient request if the prescription is for a schedule II opioid drug., 155, cm, 05/30/21 15:34:... Start Date: 06/29/21 Status: Ordered capsaicin 0.025% topical cream See Instructions, APPLY TO AFFECTED AREA TWICE A DAY, # 60 Gm, 1 Refills, [id number], 30, APPLY TO AFFECTED AREA TWICE A DAY, 155, cm, 05/30/21 15:34:00 EDT, Height, 95.9, kg, 12/05/20 10:08:00 EDT, Dry Weight Start Date: 05/31/21 Status: Ordered Cavilon Emollient topical cream 1 application, Topically, 2 times a day, PRN for dry skin, # 454 Gm, 1 Refills, Maintenance, 09/30/19 16:26:00 EDT, Cream, [facility], 1 application Topically 2 times a day,PRN:for dry skin, 158, cm, 08/27/19 13:02:00 EDT, Height, 76, kg... Start Date: 09/30/19 Status: Ordered clonazePAM 0.5 mg oral tablet 1 tablet = 0.5 mg, By Mouth, Daily at bedtime, May fill 02/10/22 and weekly on Fridays for3 weeks, #7 tablet, 2 Refills, Maintenance, 02/07/22 15:55:00 EST, Tablet, [facility], WOOD LATHE OPERATOR reviewed, covering for Dr. De Leon, 155, cm, 01/23... Start Date: 02/07/22 Stop Date: 02/28/22 Status: Ordered coal tar topical 1% lotion See Instructions, applyTopically Daily at bedtime, # 120 mL, 3 Refills, Maintenance, 10/26/21 15:45:00 EDT, [facility], Partial fill upon patient request if the prescription is for a schedule II opioid drug., applyTopically Daily a... Start Date: 10/26/21 Status: Ordered Dovonex 0.005% topical cream 1 applicator, Topically, 2 times a day, # 60 Gm, 5 Refills, Maintenance, 07/07/19 17:30:00 EDT, [facility], 1 applicator Topically 2 times a day,x30 days, 158, cm, 12/24/18 10:25:00 EDT, Height, 76, kg, 04/12/19 15:31:00 EST, Dry Weight Start Date: 07/07/19 Stop Date: 01/03/20 Status: Ordered Eucerin Unscented topical lotion See Instructions, apply as frequently as needed, # 1 each, 0 Refills, Maintenance, 09/28/21 12:23:00 EDT, [facility], Partial fill upon patient request if the prescription is for a schedule II opioid drug., apply as frequently as n... Start Date: 09/28/21 Status: Ordered fluticasone 50 mcg/inh nasal spray 1 sprays, Nares, Both, 2 times a day, in each nostril. for allergies, # 16 Gm, 0 Refills, Maintenance, 04/27/20 14:35:00 EST, [place], [facility] 3, Partial fill upon patient request if theprescription is for a schedule II opioid drug., 1... Start Date: 04/27/20 Stop Date: 05/27/20 Status: Ordered halobetasol 0.05% topical ointment See Instructions, APPLY A THIN FILM TO THE AFFECTED SKIN AND RUB IN GENTLY AND COMPLETELY TWICE A DAY, # 50 Gm, 1 Refills, Maintenance, 10/26/21 15:44:00 EDT, [facility], 30, APPLY A THIN FILM TO THE AFFECTED SKIN AND RUB IN GENTLY... Start Date: 10/26/21 Status: Ordered ketoconazole 2% topical shampoo See Instructions, APPLY 1 APPLICATOR TOPICALLY 3X PER WEEK, # 120 mL, 3 Refills, Maintenance, 12/27/21 19:30:00 EDT, [id number], 30, APPLY 1 APPLICATOR TOPICALLY 3X PER WEEK, 155, cm, 12/12/21 16:00:00 EDT, Height, 106.5, kg, 09/14/21 9:38:00 EDT... Start Date: 12/27/21 Status: Ordered loratadine 10 mg oral tablet 1, tablet, By Mouth, Daily, # 90 tablet, Refills 1, Tot. Refills 1, Maintenance, 11/01/21 15:19:00 EDT, Route to Pharmacy Electronically, [facility]/pharmacy #[id number], 155, cm, 09/28/21 12:06:00 EDT, [...] 14 tablet, 2 Refills, 02/07/22 15:55:00 EST, [facility], 155, cm, 01/23/22 14:00:00 EST, Height, 106.5, kg,09/14/21 9:38:00 EDT, Dry Weight Start Date: 02/07/22 Status: Ordered selenium sulfide 2.5% topical lotion See Instructions, APPLY TOPICALLY TO AFFECTED AREA EVERY DAY FOR 7 DAYS, # 120 mL, 3 Refills, Soft Stop, 10/26/21 15:43:00 EDT, [facility], 7, APPLY TOPICALLY TO AFFECTED AREA EVERY DAY FOR 7 DAYS, 155, cm, 09/28/21 12:06:00 EDT, H... Start Date: 10/26/21 Status: Ordered tiZANidine 2 mg oral tablet 1, tablet, By Mouth, 3 times a day, # 60 tablet, Refills 0, Route to Pharmacy Electronically, [id number], 155, cm, 05/03/21 14:39:00 EST, Height, 95.9, kg, 12/05/20 10:08:00 EDT, Dry Weight Start Date: 05/09/21 Status: Ordered traMADol 50 mg oral tablet 1 tablet = 50 mg, By Mouth, Every 8 hours, PRN Pain , Severe, for 7 days, May fill 02/10/22 and weekly on Fridays for 3 weeks, # 21 tablet, 2 Refills, Acute 02/28/22 15:55:00 EST, 02/07/22 15:55:00 EST, Tablet, [facility], Partial f... Start Date: 02/07/22 Stop Date: 02/28/22 Status: Ordered Problem List Condition Confirmation Course Effective Dates Status H ealth Status Informant Anxiety Confirmed Active Opioid type dependence, continuous 1 Confirmed Active Osteoarthritis of left knee Confirmed Active Psoriasis Confirmed Active Severe obesity Confirmed Active 1Client had been seen by Jazz Francois at [facility]. Client has no-showed to last appt [...] Personnel Name: Ilya De Leon MD Position: [facility] Primary Care Physician Member Role: PCP Address: Address: [address] [place] [phone]- Care Team Related Persons Name: JD ALVAREZ Address: home [address] [place] [id number]
--- OUTSIDE RECORDS SUMMARY | 2022-11-03 10:44 | XMS_ITS | Continuity of Care Document ---
Author Name Unknown Organization [facility] Address [address] [place] [id number]- Care Team Providers Care Office Assistant Receptionist Name Role Phone Haley NEWMAN, Ilya Primary Care Physician [place] [facility] [place](s): 09/07/20 - 10/07/20 [facility]/[address] [address]- Allergies, Adverse Reactions, Alerts Substance Reaction Severity [...] 12/26/20 11:44:00 EDT, 09/24/20 11:43:00 EDT, Tablet, [facility]/pharmacy #[id number], Partial fill u... Start Date: 09/24/20 Stop Date: 12/26/20 Status: Ordered Cavilon Emollient topical cream 1 application, Topically, 2 times a day, PRN for dry skin, # 454 Gm, 1 Refills, Maintenance, 09/30/19 16:26:00 EDT, Cream, [facility] 3, 1 application Topically 2 times a day,PRN:for dry skin, 158, cm, 08/27/19 13:02:00 EDT, Height, 76, kg... Start Date: 09/30/19 Status: Ordered cetirizine 10 mg oral tablet 1 tablet = 10 mg, By Mouth, Daily, for allergies. Do NOT take with claritin, # 30 tablet, 0 Refills, Maintenance, 07/23/20 11:37:00 EDT, Tablet, [facility], Partial fill upon patient request if the prescription is for a schedule II... Start Date: 07/23/20 Stop Date: 08/22/20 Status: Ordered Claritin 10 mg oral tablet 10 mg, 1, tablet, By Mouth, Daily, # 15 tablet, Refills 3, Tot. Refills 3, Maintenance, 11/06/18 8:33:38 EDT, Route to Pharmacy Electronically, [id number], [facility] Start Date: 11/06/18 Status: Ordered clonazePAM 0.5 mg oral tablet 1 tablet = 0.5 mg, By Mouth, Daily, # 28 tablet, 0 Refills, Maintenance, 09/22/20 12:58:00 EDT, Tablet, [facility], Partial fill upon patient request if the prescription is for a schedule II opioid drug., 158, cm, 09/08/20 14:36:00... Start Date: 09/22/20 Status: Ordered diphenhydrAMINE 25 mg oral tablet 1 tablet = 25 mg, By Mouth, 3 times a day, PRN as needed for itching, Will cause drowsiness, # 30 tablet, 0 Refills, Maintenance, 07/16/20 15:11:00 EDT, Tablet, [facility], Partial fill upon patient request if the prescription is f... Start Date: 07/16/20 Status: Ordered Dovonex 0.005% topical cream 1 applicator, Topically, 2 times a day, # 60 Gm, 5 Refills, Maintenance, 07/07/19 17:30:00 EDT, [facility], 1 applicator Topically [...] Gm, 0 Refills, Maintenance, 04/27/20 14:35:00 EST, [place], [facility], Partial fill upon patient request if theprescription is for a schedule II opioid drug., 1... Start Date: 04/27/20 Stop Date: 05/27/20 Status: Ordered furosemide 20 mg oral tablet 20 mg, 1, tablet, By Mouth, Daily, # 30 tablet, Refills 1, Tot. Refills 1, Maintenance, 08/27/20 16:12:00 EDT, Route to Pharmacy Electronically, [facility]/pharmacy #[id number], Partial fill upon patient request if the prescription is for a schedule II opioid drug... Start Date: 08/27/20 Status: Ordered halobetasol 0.05% topical ointment 1 application, Topically, 2 times a day, apply in a thin film to the affected skin and rub in gently and completely, # 50 Gm, 1 Refills, Acute 10/18/20 14:15:00 EDT, 09/24/20 13:11:00 EDT, Ointment, [facility]/pharmacy #[id number], Partial fill upon patient reques... Start [...] 11:39:00 EDT, 09/24/20 11:38:00 EDT, Ointment, [facility]/pharmacy #[id number], Partial fill upon patient request if [...] Refills, Maintenance, 09/14/20 17:22:00 EDT, Cream, [facility]/pharmacy #[id number], Partial fill upon patient request if [...] Soft Stop, 07/27/20 11:50:00 EDT, Cream, [facility], 1 applicationTopically Once,Instr:to skin head to feet, remove b... Start Date: 07/27/20 Status: Ordered predniSONE 5 mg oral tablet 1 tablet = 5 mg, By Mouth, 3 times a day, # 21 tablet, 0 Refills, Maintenance, 10/06/20 15:03:00 EDT, Tablet, [facility]/pharmacy #[id number], Partial fill upon patient request if the prescription is for a schedule II opioid drug., 158, cm, 09/24/20 10:45:00 EDT,... Start Date: 10/06/20 Stop Date: 10/13/20 Status: Ordered selenium sulfide 2.5% topical lotion See Instructions, APPLY TOPICALLY TO AFFECTED AREA EVERY DAY FOR 7 DAYS, # 120 mL, 3 Refills, Soft Stop, 07/23/20 11:40:00 EDT, [facility], 7, APPLY TOPICALLY TO AFFECTED AREA EVERY DAY FOR 7 DAYS, 158, cm, 07/23/20 11:13:00 EDT, H... Start Date: 07/23/20 Status: Ordered Shingrix intramuscular injection = 0.5 mL, Intramuscular, Once, repeat dose in 2 to 6 months, # 2 each, 0 Refills, Soft Stop, 05/27/20 11:03:00 EDT, Powder, [facility], Partial fill upon patient request [...] Maintenance, 03/10/20 18:21:00 EST, Cream, [facility], Partial fill upon [...] Refills, Maintenance, 09/24/20 11:47:00 EDT, Gel, [facility]/pharmacy #[id number], 1 application Topically 4 times a [...]
--- OUTSIDE RECORDS SUMMARY | 2022-11-03 10:44 | XMS_ITS | Continuity of Care Document ---
Author Name Unknown Organization [facility] Address [address] [place] [address]- Care Team Providers Care Drainage Engineer Name Role Phone Ilya De Leon MD Primary Care Physician En[place] [facility] [place] Date(s): 08/24/20 - 09/23/20 [facility]/[address] [address]- Allergies, Adverse Reactions, Alerts Substance Reaction Severity [...] 0 Refills, Maintenance, 07/23/20 11:37:00 EDT, Tablet, [facility], Partial fill upon patient request if the prescription is for a schedule II... Start Date: 07/23/20 Stop Date: 08/22/20 Status: Ordered Claritin 10 mg oral tablet 10 mg, 1, tablet, By Mouth, Daily, # 15 tablet, Refills 3, Tot. Refills 3, Maintenance, 11/06/18 8:33:38 EDT, Route to Pharmacy Electronically, [id number], [facility] Start Date: 11/06/18 Status: Ordered clonazePAM 0.5 mg oral tablet 1 tablet = 0.5 mg, By Mouth, Daily, # 28 tablet, 0 Refills, Maintenance, 09/22/20 12:58:00 EDT, Tablet, [facility], Partial fill upon patient request if the prescription is for a schedule II opioid drug., 158, cm, 09/08/20 14:36:00... Start Date: 09/22/20 Status: Ordered diphenhydrAMINE 25 mg oral tablet 1 tablet = 25 mg, By Mouth, 3 times a day, PRN as needed for itching, Will cause drowsiness, # 30 tablet, 0 Refills, Maintenance, 07/16/20 15:11:00 EDT, Tablet, [facility], Partial fill upon patient [...] Gm, 0 Refills, Maintenance, 04/27/20 14:35:00 EST, [place], [facility], Partial fill upon patient request if theprescription is for a schedule II opioid drug., 1... Start Date: 04/27/20 Stop Date: 05/27/20 Status: Ordered furosemide 20 mg oral tablet 20 mg, 1, tablet, By Mouth, Daily, # 30 tablet, Refills 1, Tot. Refills 1, Maintenance, 08/27/20 16:12:00 EDT, Route to Pharmacy Electronically, [facility]/pharmacy #[id number], Partial fill upon patient request if the prescription is for a schedule II opioid drug... Start Date: 08/27/20 Status: Ordered halobetasol 0.05% topical cream 1 application, Topically, 2 times a day, # 50 Gm, 3 Refills, Maintenance, 08/02/20 12:54:00 EDT, Cream, [facility], Partial fill upon patient request if the prescription is for a schedule II opioid drug., 1 application Topically 2... Start Date: 08/02/20 Status: Ordered hydrocortisone 1% topical cream 1 application, Topically, 2 times a day, Apply to rash areas, # 60 Gm, 3 Refills, Maintenance, 06/04/19 14:52:00 EDT, Cream, [facility] 3, [...] Refills, Maintenance, 09/14/20 17:22:00 EDT, Cream, [facility]/pharmacy #[id number], Partial fill upon patient request if the prescription is for a schedule II opioid drug., 1 application Topically 3 times a day,... Start Date: 09/14/20 Status: Ordered Nizoral 2% topical shampoo See Instructions, 1 applicator Topically 3x per week, # 120 mL, 3 Refills, Soft Stop, 08/12/20 10:30:00 EDT, [facility]/pharmacy #[id number], 1 applicator Topically 3x per week, [...] 0 Refills, Maintenance, 09/14/20 17:20:00 EDT, Tablet, [facility]/pharmacy #[id number], Partial fill upon patient request if the prescription is for a schedule II opioid drug., 158, cm, 09/08/20 14:36:00 EDT,... Start Date: 09/14/20 Stop Date: 09/24/20 Status: Ordered selenium sulfide 2.5% topical lotion See Instructions, APPLY TOPICALLY TO AFFECTED AREA EVERY DAY FOR 7 DAYS, # 120 mL, 3 Refills, Soft Stop, 07/23/20 11:40:00 EDT, [facility], 7, APPLY TOPICALLY TO AFFECTED AREA EVERY DAY FOR 7 DAYS, 158, cm, 07/23/20 11:13:00 EDT, H... Start Date: 07/23/20 Status: Ordered Shingrix intramuscular injection = 0.5 mL, Intramuscular, Once, repeat dose in 2 to 6 months, # 2 each, 0 Refills, Soft Stop, 05/27/20 11:03:00 EDT, Powder, [facility], Partial fill upon patient [...] 0 Refills, Maintenance, 07/23/20 11:37:00 EDT, Gel, [facility], 1 application Topically 4 times a [...]
--- OUTSIDE RECORDS SUMMARY | 2022-11-03 10:44 | XMS_ITS | Continuity of Care Document ---
Author Name Unknown Organization [facility] Address [address] [place] [address]- Care Team Providers Care Garment Manufacturer Name Role Phone Haley NEWMAN, Ilya Primary Care Physician Encounter [facility] [place] Date(s): 12/27/21 - 01/26/22 [facility]/[address] [address]- [place] Allergies, Adverse Reactions, Alerts Substance Reaction [...] Maintenance, 06/29/21 15:10:00 EDT, ER Tablet, [id number], Partial fill upon patient request if the prescription is for a schedule II opioid drug., 155, cm, 05/30/21 15:34:... Start Date: 06/29/21 Status: Ordered capsaicin 0.025% topical cream See Instructions, APPLY TO AFFECTED AREA TWICE A DAY, # 60 Gm, 1 Refills, [id number], 30, APPLY TO AFFECTED AREA TWICE A DAY, 155, cm, 05/30/21 15:34:00 EDT, Height, 95.9, kg, 12/05/20 10:08:00 EDT, Dry Weight Start Date: 05/31/21 Status: Ordered Cavilon Emollient topical cream 1 application, Topically, 2 times a day, PRN for dry skin, # 454 Gm, 1 Refills, Maintenance, 09/30/19 16:26:00 EDT, Cream, [facility], 1 application Topically 2 times a day,PRN:for dry skin, 158, cm, 08/27/19 13:02:00 EDT, Height, 76, kg... Start Date: 09/30/19 Status: Ordered clonazePAM 0.5 mg oral tablet 1 tablet = 0.5 mg, By Mouth, Daily at bedtime, May fill 01/20/22 and weekly on Fridays for3 weeks, # 7 tablet, 2 Refills, Maintenance, 01/18/22 14:09:00 EST, Tablet, [facility], ONLINE MERCHANDISING COORDINATOR reviewed, covering for Dr. De Leon, 155, cm, 100... Start Date: 01/18/22 Stop Date: 02/08/22 Status: Ordered coal tar topical 1% lotion See Instructions, applyTopically Daily at bedtime, # 120 mL, 3 Refills, Maintenance, 10/26/21 15:45:00 EDT, [facility], Partial fill upon patient request if the prescription is for a schedule II opioid drug., applyTopically Daily a... Start Date: 10/26/21 Status: Ordered Dovonex 0.005% topical cream 1 applicator, Topically, 2 times a day, # 60 Gm, 5 Refills, Maintenance, 07/07/19 17:30:00 EDT, [facility], 1 applicator Topically 2 times a day,x30 days, 158, cm, 12/24/18 10:25:00 EDT, Height, 76, kg, 04/12/19 15:31:00 EST, Dry Weight Start Date: 07/07/19 Stop Date: 01/03/20 Status: Ordered Eucerin Unscented topical lotion See Instructions, apply as frequently as needed, # 1 each, 0 Refills, Maintenance, 09/28/21 12:23:00 EDT, [facility], Partial fill upon patient request if the prescription is for a schedule II opioid drug., apply as frequently as n... Start Date: 09/28/21 Status: Ordered fluticasone 50 mcg/inh nasal spray 1 sprays, Nares, Both, 2 times a day, in each nostril. for allergies, # 16 Gm, 0 Refills, Maintenance, 04/27/20 14:35:00 EST, [place], [facility] 3, Partial fill upon patient request if theprescription is for a schedule II opioid drug., 1... Start Date: 04/27/20 Stop Date: 05/27/20 Status: Ordered halobetasol 0.05% topical ointment See Instructions, APPLY A THIN FILM TO THE AFFECTED SKIN AND RUB IN GENTLY AND COMPLETELY TWICE A DAY, # 50 Gm, 1 Refills, Maintenance, 10/26/21 15:44:00 EDT, [facility], 30, APPLY A THIN FILM TO THE AFFECTED SKIN AND RUB IN GENTLY... Start Date: 10/26/21 Status: Ordered ketoconazole 2% topical shampoo See Instructions, APPLY 1 APPLICATOR TOPICALLY 3X PER WEEK, # 120 mL, 3 Refills, Maintenance, 12/27/21 19:30:00 EDT, [id number], 30, APPLY 1 APPLICATOR TOPICALLY 3X PER WEEK, 155, cm, 12/12/21 16:00:00 EDT, Height, 106.5, kg, 09/14/21 9:38:00 EDT... Start Date: 12/27/21 Status: Ordered loratadine 10 mg oral tablet 1, tablet, By Mouth, Daily, # 90 tablet, Refills 1, Tot. Refills 1, Maintenance, 11/01/21 15:19:00 EDT, Route to Pharmacy Electronically, [facility]/pharmacy #[id number], 155, cm, 09/28/21 12:06:00 EDT, [...] 14 tablet, 2 Refills, 01/18/22 14:09:00 EST, [facility], 155, cm, 12/12/21 16:00:00 EDT, Height, 106.5, kg, 09/14/21 9:38:00 EDT, Dry Weight Start Date: 01/18/22 Status: Ordered selenium sulfide 2.5% topical lotion See Instructions, APPLY TOPICALLY TO AFFECTED AREA EVERY DAY FOR 7 DAYS, # 120 mL, 3 Refills, Soft Stop, 10/26/21 15:43:00 EDT, [facility], 7, APPLY TOPICALLY TO AFFECTED AREA EVERY DAY FOR 7 DAYS, 155, cm, 09/28/21 12:06:00 EDT, H... Start Date: 10/26/21 Status: Ordered tiZANidine 2 mg oral tablet 1, tablet, By Mouth, 3 times a day, # 60 tablet, Refills 0, Route to Pharmacy Electronically, [id number], 155, cm, 05/03/21 14:39:00 EST, Height, 95.9, kg, 12/05/20 10:08:00 EDT, Dry Weight Start Date: 05/09/21 Status: Ordered traMADol 50 mg oral tablet 1 tablet = 50 mg, By Mouth, Every 8 hours, PRN Pain , Severe, for 7 days, May fill 01/20/22 and weekly on Fridays for 3 weeks, # 21 tablet, 2 Refills, Acute 02/08/22 14:09:00 EST, 01/18/22 14:09:00 EST, Tablet, [facility], [facility]... Start Date: 01/18/22 Stop Date: 02/08/22 Status: [...] Care Physician Member Role: PCP Address: Address: [address] [place] [address]- Care Team Related Persons Name: JD ALVAREZ Address: home [address] [place] [id number]
--- OUTSIDE RECORDS SUMMARY | 2022-11-03 10:44 | XMS_ITS | Continuity of Care Document ---
Author Name Unknown Organization [facility] Address [address] [place] [address]- Care Team Providers Care Advisory Software Engineer Name Role Phone Haley NEWMAN, Ilya Primary Care Physician Encounter [facility] [place] Date(s): 07/13/20 - 08/12/20 [facility]/[address] [address]- Allergies, Adverse Reactions, Alerts Substance Reaction Severity [...] 11/06/18 8:33:38 EDT, Route to Pharmacy Electronically, [id number], [facility] Start Date: 11/06/18 Status: Ordered diphenhydrAMINE 25 [...] Gm, 0 Refills, Maintenance, 04/27/20 14:35:00 EST, [place], [facility], Partial fill upon patient request if theprescription is for a schedule II opioid drug., 1... Start Date: 04/27/20 Stop Date: 05/27/20 Status: Ordered halobetasol 0.05% topical cream 1 application, Topically, 2 times a day, # 50 Gm, 3 Refills, Maintenance, 08/02/20 12:54:00 EDT, Cream, [facility], Partial fill upon patient request if the prescription is for a schedule II opioid drug., 1 application Topically 2... Start Date: 08/02/20 Status: Ordered hydrocortisone 1% topical cream 1 application, Topically, 2 times a day, Apply to rash areas, # 60 Gm, 3 Refills, Maintenance, 06/04/19 14:52:00 EDT, Cream, [facility], 1 [...] 0 Refills, Soft Stop, 08/06/20 11:18:00 EDT, [facility], 158, cm, 07/23/20 11:13:00 EDT... Start Date: 08/06/20 Status: Ordered Methadone By Mouth, 0 Refills, Maintenance Start Date: 12/25/11 Status: Ordered mupirocin 2% topical ointment 1 application, Topically, 3 times a day, for 7 days, For lesion on right upper arm, # 22 Gm, 0 Refills, Acute 08/19/20 12:30:00 EDT, 08/12/20 12:30:00 EDT, [facility]/pharmacy #[id number], Partial fill upon [...] tablet, 0 Refills, Maintenance, 08/12/20 10:30:00 EDT, [facility]/pharmacy #[id number], Partial fill upon [...] Cream, [facility], Partial fill upon patient request if [...] 0 Refills, Maintenance, 07/23/20 11:37:00 EDT, Gel, [facility], 1 application Topically 4 times a day, 158, cm, 07/23/20 11:13:00 EDT, Height, 82, kg, 07/21/20 20:18:00 EDT, Dry We... Start Date: 07/23/20 Status: Ordered Problem List Condition Effective Dates Status Health Status Inform ant Opioid type dependence, continuous(Confirmed) 1 Active 1Client had been seen by Jazz Francois at [facility]. Client has no-showed to last appt and today.She will be targetted for closing if she does not responde to correspondence that will be sent on 02/14/13 Social History Social History Type Response Tobacco Use: 4 or less cigar ettes(less than 1/4 pack)/day in last 30 days. Sex
--- OUTSIDE RECORDS SUMMARY | 2022-11-03 10:44 | XMS_ITS | Continuity of Care Document ---
Author Name Unknown Organization [facility] Address [address] [place] [address]- Care Team Providers Care Chainsaw Mechanic Name Role Phone Haley NEWMAN, Ilya Primary Care Physician Encounter [facility] Date(s): 12/27/21 - 01/26/22 [facility]/[address] [address]- [place] Allergies, Adverse Reactions, Alerts Substance Reaction [...] Maintenance, 06/29/21 15:10:00 EDT, ER Tablet, [id number], Partial fill upon patient request if the prescription is for a schedule II opioid drug., 155, cm, 05/30/21 15:34:... Start Date: 06/29/21 Status: Ordered capsaicin 0.025% topical cream See Instructions, APPLY TO AFFECTED AREA TWICE A DAY, # 60 Gm, 1 Refills, [id number], 30, APPLY TO AFFECTED AREA TWICE A DAY, 155, cm, 05/30/21 15:34:00 EDT, Height, 95.9, kg, 12/05/20 10:08:00 EDT, Dry Weight Start Date: 05/31/21 Status: Ordered Cavilon Emollient topical cream 1 application, Topically, 2 times a day, PRN for dry skin, # 454 Gm, 1 Refills, Maintenance, 09/30/19 16:26:00 EDT, Cream, [facility], 1 application Topically 2 times a day,PRN:for dry skin, 158, cm, 08/27/19 13:02:00 EDT, Height, 76, kg... Start Date: 09/30/19 Status: Ordered clonazePAM 0.5 mg oral tablet 1 tablet = 0.5 mg, By Mouth, Daily at bedtime, May fill 01/20/22 and weekly on Fridays for3 weeks, # 7 tablet, 2 Refills, Maintenance, 01/18/22 14:09:00 EST, Tablet, [facility], TAPPING MACHINE OPERATOR reviewed, covering for Dr. De [...] 07/07/19 17:30:00 EDT, [facility], 1 applicator Topically 2 times [...] Gm, 0 Refills, Maintenance, 04/27/20 14:35:00 EST, [place], [facility], Partial fill upon patient request if [...] mL, 3 Refills, Maintenance, 12/27/21 19:30:00 EDT, [id number], 30, APPLY 1 APPLICATOR TOPICALLY 3X PER WEEK, 155, cm, 12/12/21 16:00:00 EDT, Height, 106.5, kg, 09/14/21 9:38:00 EDT... Start Date: 12/27/21 Status: Ordered loratadine 10 mg oral tablet 1, tablet, By Mouth, Daily, # 90 tablet, Refills 1, Tot. Refills 1, Maintenance, 11/01/21 15:19:00 EDT, Route to Pharmacy Electronically, [facility]/pharmacy #[id number], 155, cm, 09/28/21 12:06:00 EDT, Height, 106.5, kg, 09/14/21 9:38:00 EDT, Dry Weight Start Date: 11/01/21 Status: Ordered Methadone By Mouth, 0 Refills, Maintenance Start Date: 12/25/11 Status: Ordered mupirocin 2% topical cream 1 application, Topically, 3 times a day, # 30 Gm, 2 Refills, Maintenance, 03/08/21 10:26:00 EST, Cream, [facility]/pharmacy #[id number], Partial fill [...] 14 tablet, 2 Refills, 01/18/22 14:09:00 EST, [facility], 155, cm, 12/12/21 16:00:00 EDT, Height, [...] Refills 0, Route to Pharmacy Electronically, [id number], 155, cm, 05/03/21 14:39:00 EST, Height, 95.9, kg, 12/05/20 10:08:00 EDT, Dry Weight Start Date: 05/09/21 Status: Ordered traMADol 50 mg oral tablet 1 tablet = 50 mg, By Mouth, Every 8 hours, PRN Pain , Severe, for 7 days, May fill 01/20/22 and weekly on Fridays for 3 weeks, # 21 tablet, 2 Refills, Acute 02/08/22 14:09:00 EST, 01/18/22 14:09:00 EST, Tablet, [facility] [place], [facility]... Start Date: 01/18/22 Stop Date: 02/08/22 Status: Ordered Problem List Condition Confirmation Course Effective Dates Status H ealth Status Informant Anxiety Confirmed Active Opioid type dependence, continuous 1 Confirmed Active Osteoarthritis of left knee Confirmed Active Psoriasis Confirmed Active Severe obesity Confirmed Active 1Client had been seen by Jazz Francois at [facility]. Client has no-showed to last [...] Personnel Name: Ilya De Leon MD [facility] Primary Care Physician Member Role: PCP Address: Address: [address] [place] [phone]- Care Team Related Persons Name: JD ALVAREZ Address: home [address] [place] [id number]
--- OUTSIDE RECORDS SUMMARY | 2022-11-03 10:45 | XMS_ITS | Continuity of Care Document ---
Author Name Unknown Organization [facility] Address Unknown Care Team Providers Care Prototype Machine Operator Name Role Phone Ilya De Leon MD Primary Care Physician Encounter [facility] Date(s): 12/03/20 - 01/02/21 [facility] Attending Physician: Celsa Lyons Allergies, Adverse Reactions, Alerts Substance Reaction Severity Status penicillin Rash Active Compazine throat swells Active Reglan [...] 0 Refills, Maintenance, 12/03/20 13:44:00 EDT, Tablet, [id number] Partial fill upon patient request if the prescription is for a schedule II opioid drug., 158, cm, 12/03/20 13:27:00 EDT, Height,... Start Date: 12/03/20 Status: Ordered Claritin 10 mg oral tablet 10 mg, 1, tablet, By Mouth, Daily, # 15 tablet, Refills 3, Tot. Refills 3, Maintenance, 11/06/18 8:33:38 EDT, Route to Pharmacy Electronically, [id number], [facility] Start Date: 11/06/18 Status: Ordered clonazePAM 0.5 mg oral tablet 1 tablet = 0.5 mg, By Mouth, Daily, VOLUNTEER SERVICES DIRECTOR checked, # 28 tablet, 0 Refills, Maintenance, 12/24/20 11:42:00 EDT, Tablet, [id number] Partial fill upon patient request if the prescription is for aschedule II opioid drug., 155, cm, 12/05/20 10:08:0... Start Date: 12/24/20 Stop Date: 01/21/21 Status: Ordered diphenhydrAMINE 25 mg oral tablet 1 tablet = 25 mg, By Mouth, 3 times a day, PRN as needed for itching, Will cause drowsiness, # 30 tablet, 0 Refills, Maintenance, 07/16/20 15:11:00 EDT, Tablet, [facility], Partial fill upon patient request if the prescription is f... Start Date: 07/16/20 Status: Ordered Dovonex 0.005% topical cream 1 applicator, Topically, 2 times a day, # 60 Gm, 5 Refills, Maintenance, 07/07/19 17:30:00 EDT, [facility] 3, 1 applicator Topically 2 [...] Gm, 0 Refills, Maintenance, 04/27/20 14:35:00 EST, [place], [facility], Partial fill upon patient request if theprescription is for a schedule II opioid drug., 1... Start Date: 04/27/20 Stop Date: 05/27/20 Status: Ordered furosemide 20 mg oral tablet 1, tablet, By Mouth, Daily, # 30 tablet, Refills 3, Tot. Refills 0, Maintenance, 10/21/20 11:22:00 EDT, Route to Pharmacy Electronically, [id number], 158, cm, 10/18/20 10:46:00 EDT, Height, 95.4, kg, 10/16/20 10:11:00 EDT, Dry Weight Start Date: 10/21/20 Status: Ordered halobetasol 0.05% topical ointment See Instructions, APPLY A THIN FILM TO THE AFFECTED SKIN AND RUB IN GENTLY AND COMPLETELY TWICE A DAY, # 50 Gm, 1 Refills, [facility], 30, APPLY A THIN FILM TO THE AFFECTED SKIN AND RUB IN GENTLY AND COMPLETELY TWICE A DAY, 158, cm, 10/18/20 10:4... Start Date: 12/02/20 Status: Ordered hydrocortisone 1% topical cream 1 application, Topically, 2 times a day, Apply to rash areas, # 60 Gm, 3 Refills, Maintenance, 06/04/19 14:52:00 EDT, Cream, [facility], 1 application Topically 2 times a day,Instr:Apply to rash areas, 158, cm, 12/24/18 10:25:00 EDT, [place]... Start Date: 06/04/19 Status: Ordered ketoconazole 2% topical shampoo See Instructions, APPLY 1 APPLICATOR TOPICALLY 3X PER WEEK, # 120 mL, 3 Refills, [facility], 30, APPLY 1 APPLICATOR TOPICALLY 3X PER [...] Refills, Maintenance, 12/17/20 15:28:00 EDT, Cream, [facility]/pharmacy #[id number], Partial fill upon patient request if the prescription is for a schedule II opioid drug., 1 application Topically 3 times a day,... Start Date: 12/17/20 Status: Ordered Coryell 0.65% nasal spray 2 sprays, Nares, Both, 4 times a day, # 1 each, 0 Refills, Maintenance, 12/03/20 13:46:00 EDT, [facility]/pharmacy #[id number], Partial fill upon [...] 0 Refills, Maintenance, 12/17/20 15:28:00 EDT, Tablet, [facility]/pharmacy #[id number], Partial fill upon patient request if the prescription is for a schedule II opioid drug., 15... Start Date: 12/17/20 Stop Date: 12/31/20 Status: Ordered selenium sulfide 2.5% topical lotion See Instructions, APPLY TOPICALLY TO AFFECTED AREA EVERY DAY FOR 7 DAYS, # 120 mL, 3 Refills, Soft Stop, 07/23/20 11:40:00 EDT, [facility], 7, APPLY TOPICALLY TO AFFECTED AREA EVERY DAY FOR 7 DAYS, 158, cm, 07/23/20 11:13:00 EDT, H... Start Date: 07/23/20 Status: Ordered Shingrix intramuscular injection = 0.5 mL, Intramuscular, Once, repeat dose in 2 to 6 months, # 2 each, 0 Refills, Soft Stop, 05/27/20 11:03:00 EDT, [place], [facility], Partial fill upon patient [...] 03/10/20 18:21:00 EST, Cream, [facility] 3, Partial fill upon patient [...]
--- OUTSIDE RECORDS SUMMARY | 2022-11-03 10:45 | XMS_ITS | Continuity of Care Document ---
Author Name Unknown Organization [facility] Address [address] [place] [address]- Care Team Providers Care Fish Net Maker Name Role Phone Ilya De Leon MD Primary Care Physician [place] [facility] [place]22 [place] 10/[place]/22 [facility]/[address] [address]- [place] Allergies, Adverse Reactions, Alerts Substance Reaction [...] Maintenance, 06/29/21 15:10:00 EDT, ER Tablet, [id number], Partial fill upon patient request if the prescription is for a schedule II opioid drug., 155, cm, 05/30/21 15:34:... Start Date: 06/29/21 Status: Ordered Cavilon Emollient topical cream 1 application, Topically, 2 times a day, PRN for dry skin, # 454 Gm, 1 Refills, Maintenance, 09/30/19 16:26:00 EDT, Cream, [facility] 3, 1 application Topically 2 times a day,PRN:for dry skin, 158, cm, 08/27/19 13:02:00 EDT, Height, 76, kg... Start Date: 09/30/19 Status: Ordered Cavilon Emollient topical cream 1 application, Topically, 2 times a day, PRN for dry skin, # 454 Gm, 3 Refills, Maintenance, 09/19/22 11:12:00 EDT, Cream, [facility], 1 application Topically 2 times a day,PRN:for dry skin, 155, cm, 09/04/22 10:17:00 EDT, Height,... Start Date: 09/19/22 Status: Ordered cetirizine 10 mg oral tablet, chewable 1 tablet = 10 mg, By Mouth, Daily, PRN for allergy symptoms, # 12 tablet, 4 Refills, Maintenance, 09/04/22 10:28:00 EDT, Chew Tablet, [facility], Partial fill upon patient request ifthe prescription is for a schedule II opioid drug.,... Start Date: 09/04/22 Stop Date: 10/24/22 Status: Ordered cholecalciferol 1000 intl units oral capsule 1 capsule = 25 mcg, By Mouth, Daily, vitamin D, # 100 capsule, 3 Refills, Maintenance, 07/24/22 13:10:00 EDT, Capsule, [facility]/pharmacy #[id number], [...] 3 Refills, Maintenance, 10/04/22 8:15:00 EDT, Tablet, [facility], POWER PLANT ASSISTANT reviewed, covering for Dr. De Leon, 15... Start Date: 10/04/22 Stop Date: 11/01/22 Status: Ordered clonazePAM 0.5 mg oral tablet 1 tablet = 0.5 mg, By Mouth, 2 times a day, Increaseddose July weekly on Fridays for 3 weeks starting on 07/21, # 14 tablet, 2 Refills, Maintenance, 07/19/22 12:38:00 EDT, Tablet, [facility], POWER PLANT ASSISTANT reviewed, covering for Dr. De Leon, 1... Start Date: 07/19/22 Stop Date: 08/09/22 Status: Ordered Dovonex 0.005% topical cream 1 applicator, Topically, 2 times a day, # 60 Gm, 5 Refills, Maintenance, 05/24/22 12:41:00 EDT, [facility], 1 applicator Topically 2 times a day,x30 days, 155, cm, 01/23/22 14:00:00 EST, Height, 106.5, kg, 09/14/21 9:38:00 EDT, Dry... Start Date: 05/24/22 Stop Date: 11/20/22 Status: Ordered Eucerin Unscented topical lotion See Instructions, apply as frequently as needed, # 1 each, 3 Refills, Maintenance, 09/19/22 11:12:00 EDT, [facility], Partial fill upon [...] 0 Refills, Maintenance, 04/27/20 14:35:00 EST, [place], [facility] 3, Partial fill upon patient request if theprescription is for a schedule II opioid drug., 1... Start Date: 04/27/20 Stop Date: 05/27/20 Status: Ordered halobetasol 0.05% topical ointment See Instructions, APPLY A THIN FILM TO THE AFFECTED SKIN AND RUB IN GENTLY AND COMPLETELY TWICE A DAY, # 50 Gm, 0 Refills, Maintenance, 09/12/22 13:49:00 EDT, [facility]/pharmacy #[id number], 30, APPLY A THIN FILM TO THE AFFECTED SKIN AND RUB IN GENTLY AND COMPLET... Start Date: 09/12/22 Status: Ordered halobetasol 0.05% topical ointment See Instructions, APPLY A THIN FILM TO THE AFFECTED SKIN AND RUB IN GENTLY AND COMPLETELY TWICE A DAY, # 50 Gm, 3 Refills, Maintenance, 09/19/22 11:12:00 EDT, [facility], 30, APPLY A THIN FILM TO THE AFFECTED SKIN AND RUB IN GENTLY... Start Date: 09/19/22 Status: Ordered ketoconazole 2% topical shampoo See Instructions, APPLY 1 APPLICATOR TOPICALLY 3X PER WEEK, # 120 mL, 3 Refills, Maintenance, 05/16/22 8:48:00 EST, [id number], 30, APPLY 1 APPLICATOR TOPICALLY 3X PER WEEK, 155, cm, 01/23/22 14:00:00 EST, Height, 106.5, kg, 09/14/21 9:38:00 EDT,... Start Date: 05/16/22 Status: Ordered loratadine 10 mg oral tablet 1, tablet, By Mouth, Daily, # 30 tablet, Refills 5, Tot. Refills 5, Maintenance, 07/04/22 8:39:00 EDT, Route to Pharmacy Electronically, [facility]/pharmacy #[id number], 155, cm, 01/23/22 14:00:00 EST, [...] tablet, 3 Refills, Maintenance, 10/04/22 8:15:00 EDT, [facility], Partial fill upon [...] 07/24/22 13:12:00 EDT, Route to Pharmacy Electronically, [facility]/pharmacy #[id number], Partial fill upon patient request if the prescription is f... Start Date: 07/24/22 Status: Ordered traMADol 50 mg oral tablet 1 tablet = 50 mg, By Mouth, Every 8 hours, PRN Pain , Severe, for 7 days, 4May fill 10/05/22 and weekly on Fridays for 4 weeks, # 21 tablet, 3 Refills, Acute 11/01/22 8:14:00 EDT, 10/04/22 8:14:00 EDT, Tablet, [facility], Partial fi... Start Date: 10/04/22 Stop [...] Leon MD Position: [facility] Physician - Primary Care Member Role: PCP Address: Address: [address] [place] [id number]- Care Team Related Persons Name: JD ALVAREZ Address: [address] [address]
--- OUTSIDE RECORDS SUMMARY | 2022-11-03 10:45 | XMS_ITS | Continuity of Care Document ---
Author Name Unknown Organization [facility] Address Unknown Care Team Providers Care Physical Therapy Nurse Name Role Phone Ilya De Leon MD Primary Care Physician Encounter [facility] [place] Date(s): 05/23/21 - 06/22/21 [facility] Allergies, Adverse Reactions, Alerts Substance Reaction [...] ADMINISTERED AT [facility] Medications capsaicin 0.025% topical cream See Instructions, APPLY TO AFFECTED AREA TWICE A DAY, # 60 Gm, 1 Refills, [id number], 30, APPLY TO AFFECTED AREA TWICE A [...] 0 Refills, Maintenance, 06/21/2215:00:00 EDT, Tablet, [facility]/pharmacy #[id number], [employer] reviewed, covering for Dr. De Leon, 155, cm, 05/30/2214:34:00 EDT, Height, 95.9, kg, 12/05/20 10:08:00 E... Start Date: 06/20/21 Stop Date: 07/04/21 Status: Ordered Dovonex 0.005% topical cream 1 applicator, Topically, 2 times a day, # 60 Gm, 5 Refills, Maintenance, 07/07/19 17:30:00 EDT, [facility], 1 applicator Topically 2 times a day,x30 days, 158, cm, 12/24/18 10:25:00 EDT, Height, 76, kg, 04/12/19 15:31:00 EST, Dry Weight Start Date: 07/07/19 Stop Date: 01/03/20 Status: Ordered fluticasone 50 mcg/inh nasal spray 1 sprays, Nares, Both, 2 times a day, in each nostril. for allergies, # 16 Gm, 0 Refills, Maintenance, 04/27/20 14:35:00 EST, [place], [facility], Partial fill upon patient request if theprescription is for a schedule II opioid drug., 1... Start Date: 04/27/20 Stop Date: 05/27/20 Status: Ordered furosemide 20 mg oral tablet 1, tablet, By Mouth, Daily, # 30 tablet, Refills 3, Tot. Refills 3, Maintenance, 04/18/21 12:11:00 EST, Route to Pharmacy Electronically, [facility]/pharmacy #[id number], 155, cm, 04/18/21 10:12:00 EST, Height, 95.9, kg, 12/05/20 10:08:00 EDT, Dry Weight Start Date: 04/18/21 Status: Ordered halobetasol 0.05% topical ointment See Instructions, APPLY A THIN FILM TO THE AFFECTED SKIN AND RUB IN GENTLY AND COMPLETELY TWICE A DAY, # 50 Gm, 1 Refills, [id number], 30, APPLY A THIN FILM TO THE AFFECTED SKIN AND RUB IN GENTLY AND COMPLETELY TWICE A DAY, 155, cm, 12/05/20 10:0... Start Date: 03/15/21 Status: Ordered hydrocortisone 1% topical cream 1 application, Topically, 2 times a day, # 30 Gm, 0 Refills, Maintenance, 06/17/21 11:42:00 EDT, Cream, [facility], Partial fill upon patient request if the prescription is for a schedule II opioid drug., 1 application Topically 2 times... Start Date: 06/17/21 Status: Ordered ketoconazole 2% topical shampoo See Instructions, APPLY 1 APPLICATOR TOPICALLY 3X PER WEEK, # 120 mL, 3 Refills, [id number], 30, APPLY 1 APPLICATOR TOPICALLY 3X PER WEEK, 155, cm, 03/17/21 7:53:00 EST, Height, 95.9, kg, 12/05/20 10:08:00 EDT, Dry Weight Start Date: 03/21/21 Status: Ordered loratadine 10 mg oral tablet 1, tablet, By Mouth, Daily, # 15 tablet, Refills 3, Route to Pharmacy Electronically, [id number], 155, cm, 05/30/21 15:34:00 EDT, Height, 95.9, kg, 12/05/20 10:08:00 EDT, Dry Weight Start Date: 06/21/21 Status: Ordered Methadone By Mouth, 0 Refills, Maintenance Start Date: 12/25/11 Status: Ordered mupirocin 2% topical cream 1 application, Topically, 3 times a day, # 30 Gm, 2 Refills, Maintenance, 03/08/21 10:26:00 EST, Cream, [facility]/pharmacy #[id number], Partial [...] Refills, Soft Stop, 07/27/20 11:50:00 EDT, Cream, [facility], 1 applicationTopically Once,Instr:to skin head to feet, remove b... Start Date: 07/27/20 Status: Ordered predniSONE 10 mg oral tablet 1 tablet, By Mouth, Daily, for 7 days, May fill on 06/28 and will be sent to [facility], # 7 tablet, 0 Refills, Physician Stop 06/29/21 14:14:00 EDT, 06/22/21 14:14:00 EDT, [facility], 155, cm, 05/30/21 15:34:00 EDT, Height, 95... Start Date: 06/22/21 Stop Date: 06/29/21 Status: Ordered selenium sulfide 2.5% topical lotion See Instructions, APPLY TOPICALLY TO AFFECTED AREA EVERY DAY FOR 7 DAYS, # 120 mL, 3 Refills, Soft Stop, 04/26/21 18:07:00 EST, [facility]/pharmacy #[id number], 7, APPLY TOPICALLY TO AFFECTED AREA EVERY DAY FOR 7DAYS, 155, cm, 04/18/21 10:12:00 EST, Height, 95.9,... Start Date: 04/26/21 Status: Ordered tiZANidine 2 mg oral tablet 1, tablet, By Mouth, 3 times a day, # 60 tablet, Refills 0, Route to Pharmacy Electronically, [id number], 155, cm, 05/03/21 14:39:00 EST, Height, 95.9, [...]
--- OUTSIDE RECORDS SUMMARY | 2022-11-03 10:45 | XMS_ITS | Continuity of Care Document ---
Author Name Unknown Organization [facility] Address [address] [place] [address]- Care Team Providers Care Medical Specialist Name Role Phone Ilya De Leon MD Primary Care Physician [place] [facility] [place] 10[place]/20 [facility]/[address] [address]- Allergies, Adverse Reactions, Alerts Substance Reaction Severity [...] 11:44:00 EDT, 09/24/20 11:43:00 EDT, Tablet, [facility]acy #[id number], Partial fill u... Start Date: 09/24/20 Stop Date: 12/26/20 Status: Ordered Cavilon Emollient topical cream 1 application, Topically, 2 times a day, PRN for dry skin, # 454 Gm, 1 Refills, Maintenance, 09/30/19 16:26:00 EDT, Cream, [facility], 1 application Topically 2 times a day,PRN:for dry skin, 158, cm, 08/27/19 13:02:00 EDT, Height, 76, kg... Start Date: 09/30/19 Status: Ordered cetirizine 10 mg oral tablet 1 tablet = 10 mg, By Mouth, Daily, for allergies. Do NOT take with claritin, # 30 tablet, 0 Refills, Maintenance, 07/23/20 11:37:00 EDT, Tablet, [facility], Partial fill upon patient request if the prescription is for a schedule II... Start Date: 07/23/20 Stop Date: 08/22/20 Status: Ordered Claritin 10 mg oral tablet 10 mg, 1, tablet, By Mouth, Daily, # 15 tablet, Refills 3, Tot. Refills 3, Maintenance, 11/06/18 8:33:38 EDT, Route to Pharmacy Electronically, [id number], [facility] Start Date: 11/06/18 Status: Ordered clonazePAM 0.5 mg oral tablet 1 tablet = 0.5 mg, By Mouth, Daily, # 28 tablet, 0 Refills, Maintenance, 10/18/20 11:03:00 EDT, Tablet, [facility], Partial fill upon patient request if the prescription is for a schedule II opioid drug., 158, cm, 10/18/20 10:46:00... Start Date: 10/18/20 Status: Ordered clonazePAM 0.5 mg oral tablet 1 tablet = 0.5 mg, By Mouth, Daily, # 1 tablet, 0 Refills, Maintenance, 10/17/20 9:00:00 EDT, Tablet, [facility] 3, Partial fill upon patient [...] 0 Refills, Maintenance, 07/16/20 15:11:00 EDT, Tablet, [facility], Partial fill upon patient request if the prescription is f... Start Date: 07/16/20 Status: Ordered Dovonex 0.005% topical cream 1 applicator, Topically, 2 times a day, # 60 Gm, 5 Refills, Maintenance, 07/07/19 17:30:00 EDT, [facility] 3, 1 applicator Topically 2 [...] Gm, 0 Refills, Maintenance, 04/27/20 14:35:00 EST, [place], [facility] 3, Partial fill upon patient request if theprescription is for a schedule II opioid drug., 1... Start Date: 04/27/20 Stop Date: 05/27/20 Status: Ordered furosemide 20 mg oral tablet 1, tablet, By Mouth, Daily, # 30 tablet, Refills 3, Tot. Refills 0, Maintenance, 10/21/20 11:22:00 EDT, Route to Pharmacy Electronically, [id number], 158, cm, 10/18/20 10:46:00 EDT, Height, 95.4, kg, 10/16/20 10:11:00 EDT, Dry Weight Start Date: 10/21/20 Status: Ordered hydrocortisone 1% topical cream 1 application, Topically, 2 times a day, Apply to rash areas, # 60 Gm, 3 Refills, Maintenance, 06/04/19 14:52:00 EDT, Cream, [facility], 1 application Topically 2 [...] 11:39:00 EDT, 09/24/20 11:38:00 EDT, Ointment, [facility]/pharmacy #[id number], Partial fill upon patient [...] Refills, Soft Stop, 07/27/20 11:50:00 EDT, Cream, [facility], 1 applicationTopically Once,Instr:to skin head to feet, remove b... Start Date: 07/27/20 Status: Ordered predniSONE 5 mg oral tablet 1 tablet = 5 mg, By Mouth, 3 times a day, # 42 tablet, 0 Refills, Maintenance, 10/18/20 11:06:00 EDT, Tablet, [facility], Partial fill upon patient request if the prescription is for a schedule II opioid drug., 158, cm, 10/18/20 10... Start Date: 10/18/20 Stop Date: 11/01/20 Status: Ordered selenium sulfide 2.5% topical lotion See Instructions, APPLY TOPICALLY TO AFFECTED AREA EVERY DAY FOR 7 DAYS, # 120 mL, 3 Refills, Soft Stop, 07/23/20 11:40:00 EDT, [facility], 7, APPLY TOPICALLY TO AFFECTED AREA EVERY DAY FOR 7 DAYS, 158, cm, 07/23/20 11:13:00 EDT, H... Start Date: 07/23/20 Status: Ordered Shingrix intramuscular injection = 0.5 mL, Intramuscular, Once, repeat dose in 2 to 6 months, # 2 each, 0 Refills, Soft Stop, 05/27/20 11:03:00 EDT, Powder, [facility], Partial fill upon patient request if the [...] Maintenance, 03/10/20 18:21:00 EST, Cream, [facility], Partial fill upon patient [...] Refills, Maintenance, 09/24/20 11:47:00 EDT, Gel, [facility]/pharmacy #[id number], 1 application Topically 4 [...]
[2022-11-03] MEDS: HYDROmorphone HCl 1 MG/ML SYRINGE IM (10:57)
--- NOTE | 2022-11-03 11:04 | PC.NURSE ---
medicated for knee pain, states she is not driving,
[2022-11-03 11:21] LABS: Appearance Urine Cloudy; Color Urine Dark Yellow; Glucose Urine UA Negative (Negative); Leukocyte Esterase Urine Trace (Negative); Nitrite Urine Negative (Negative); PH 5.5 (5.0-9.0); Specific Gravity - Urine >= 1.030 (1.005-1.025); UMIC TRIGGER UACC YES; Urine Blood Trace (Negative); Urine Ketones Trace mg/dL (Negative); Urine Protein 30 (1+) mg/dL (Neg-Trace)
[2022-11-03 11:34] LABS: Bacteria Urine 3+ (None Seen); Calcium Oxalate Crystals Urine Present; Squamous Epithelial Cell Urine >20 /HPF (0-2); UACC Culture Trigger YES
--- NOTE | 2022-11-03 11:46 | PC.NURSE ---
pt notified this rn 15, 25 and 45 min after her IM that the med has not helped, BLAKE laurent
[2022-11-03 11:58] VITALS: BP 121/70; PULSE 71; RESP 16; O2SAT 98
== END 2022-11-03 12:17 | disposition home or self-care (01) ==
PROVIDERS: Physician Assistant; Emergency Provider Emergency Medicine Emergency Medical Services
DX: N39.0 Urinary tract infection, site not specified (principal); M54.50 Low back pain, unspecified; M25.562 Pain in left knee; Z79.899 Other long term (current) drug therapy
CPT/HCPCS: 81001; 87086; 96372; 99283; 99284; J1170